=== PATIENT | male | born 1955 | race Caucasian/White ===

== ENCOUNTER 2022-08-27 08:20 | Outpatient (OUT) | payer MEDICARE, MEDICAID, SELFPAY ==
[2022-08-27 08:41] LABS: Hematocrit 33.5 % (42.0-54.0); Hemoglobin 10.5 g/dL (14.0-18.0)
[2022-08-27 08:41] LABS: Bilirubin Urine NEGATIVE (NEGATIVE); Blood Urine NEGATIVE (NEGATIVE); Clarity Urine CLEAR (CLEAR); Color Urine LT. YELLOW (YELLOW); Glucose Urine UA NEGATIVE (NEGATIVE); Ketones Urine NEGATIVE (NEGATIVE); Leukocyte Esterase Urine NEGATIVE (NEGATIVE); Nitrite Urine NEGATIVE (NEGATIVE); Protein Urine NEGATIVE (NEG/TRACE); Specific Gravity Urine <=1.005 (1.005-1.025); Urobilinogen Urine 0.2 EU/dL (0.2-1.0); pH Urine 5.5 (5.0-9.0)
[2022-08-27 10:03] LABS: Creatinine Urine Random 15.81 mg/dL (20.00-300.00); Protein Creatinine Ratio Urine 0.38; Total Protein Urine Random <6.0 mg/dL (<=11.9)
[2022-08-27 10:05] LABS: Alanine Aminotransferase 21 U/L (16-63); Albumin Globulin Ratio 0.9; Albumin Level 3.1 g/dL (3.4-5.0); Alkaline Phosphatase 68 U/L (46-116); Anion Gap 9.8; Aspartate Amino Transferase 10 U/L (15-37); BUN Creatinine Ratio 13.4; Bilirubin Total 0.6 mg/dL (0.2-1.0); Calcium 10.2 mg/dL (8.5-10.1); Carbon Dioxide 27.7 mmol/L (21.0-32.0); Chloride 102 mmol/L (98-107); Estimated GFR (African America >60 (>=60); Estimated GFR (Non-African Ame >60 (>=60); Globulin 3.6 g/dL; Glucose 108 mg/dL (74-106); Magnesium 1.4 mg/dL (1.8-2.4); Phosphorus 2.9 mg/dL (2.6-4.7); Potassium 4.5 mmol/L (3.5-5.1); Sodium 135 mmol/L (136-145); Total Protein 6.7 g/dL (6.4-8.2)
[2022-08-28 11:09] LABS: PTH, Intact 88 pg/mL (15-65)
[2022-08-30 03:06] LABS: Tacrolimus (FK506), Blood 7.6 ng/mL (2.0-20.0)
== END 2022-08-27 08:21 ==
LOC: LAB 08:20
PROVIDERS: PCP Internal Medicine; Visit Provider Internal Medicine Nephrology
DX: Z94.0 Kidney transplant status (principal); N25.81 Secondary hyperparathyroidism of renal origin; I12.9 Hypertensive chronic kidney disease with stage 1 through stage 4 chronic kidney disease, or unspecified chronic kidney disease; E78.5 Hyperlipidemia, unspecified; K43.2 Incisional hernia without obstruction or gangrene; T82.898A Other specified complication of vascular prosthetic devices, implants and grafts, initial encounter; I48.91 Unspecified atrial fibrillation
CPT/HCPCS: 36415; 80053; 80197; 81003; 82306; 82570; 83735; 83970; 84100; 84156; 84550; 85014; 85018

== ENCOUNTER 2022-11-04 13:37 | Outpatient (OUT) | payer MEDICARE, SELFPAY ==
--- NOTE | 2022-11-04 13:54 | CT_ITS ---
[address] [address] Patient Name: JAGRUTI LEONARDO MRN: [id number] date: 1955 Sex: M Assigned Patient Location: CT Current Patient Location: CT Accession/Order Number: [id number] Exam Date: 11/04/2022 14:02 Report Date: 11/04/2022 15:37 At the request of: AISHWARYA LUNDY Procedure: CT chest wo con EXAMINATION: CT chest wo con HISTORY: Abnormal CT R93.89 ; follow-up right middle lobe lung nodule COMPARISON: CT abdomen pelvis 06/15/2022, 07/05/2021, 01/30/2016 TECHNIQUE: Multi-planar CT images were obtained without and/or with IV contrast as indicated by examination type. Axial, Coronal, and Sagittal images. Dose reduction techniques were achieved by using automated exposure control and/or adjustment of mA and/or kV according to patient size and/or use of iterative reconstruction technique. FINDINGS: LUNGS: 17 x 9 x 9 mm nodule within right middle lobe adjacent the diaphragm with adjacent small nodules/opacities. Lungs are otherwise clear. PLEURA: No mass, effusion, or pneumothorax. VASCULATURE: No abnormality. NICOLÁS: No mass or adenopathy. MEDIASTINUM: No mass or adenopathy. CARDIAC: Atherosclerotic coronary artery disease. AORTA: No aneurysm or dissection. CHEST WALL: No mass or axillary adenopathy. BONES: No bone lesion or fracture. LIMITED ABDOMEN: No suspicious findings Limited images of the upper abdomen. OTHER: Negative. CT/CT chest wo con IMPRESSION: 1. Suspicious nodule or scarring within right middle lobe adjacent the diaphragm suspected to be increasing in size, although this area is not well seen on prior CT abdomen/pelvis studies. PET imaging is recommended to evaluate for metabolic activity. Alternatively follow-up CT chest in 3 months could be performed to allow for better comparison and to evaluate for change. Electronically authenticated by: EUFEMIA KNOWLES Date: 11/04/2022 15:37
== END 2022-11-04 13:38 | disposition home or self-care (01) ==
LOC: CT 13:37
PROVIDERS: PCP Internal Medicine; Visit Provider Internal Medicine
DX: R93.89 Abnormal findings on diagnostic imaging of other specified body structures (principal)
CPT/HCPCS: 71250

== ENCOUNTER 2023-03-12 12:06 | Outpatient (OUT) | payer MEDICARE, SELFPAY ==
[2023-03-12 12:15] LABS: Bilirubin Urine NEGATIVE (NEGATIVE); Blood Urine MODERATE (NEGATIVE); Color Urine LT. YELLOW (YELLOW); Glucose Urine UA >=1000 mg/dL (NEGATIVE); Ketones Urine NEGATIVE (NEGATIVE); Leukocyte Esterase Urine SMALL (NEGATIVE); Nitrite Urine NEGATIVE (NEGATIVE); Protein Urine NEGATIVE (NEG/TRACE); Specific Gravity Urine <=1.005 (1.005-1.025); Urobilinogen Urine 0.2 EU/dL (0.2-1.0); pH Urine 6.5 (5.0-9.0)
[2023-03-12 12:18] LABS: Clarity Urine SLIGHTLY CLOUDY (CLEAR); Urine Microscopic Indicated YES
[2023-03-12 12:21] LABS: Bacteria Urine TRACE #/HPF (NONE SEEN); Cast Seen? NONE SEEN #/LPF (NONE SEEN); Crystals Seen? None Seen #/HPF (None Seen); Mucus Urine NONE SEEN (NONE SEEN); RBC Urine 0-2 #/HPF (0-2); Squamous Epithelial Cell Urine NONE SEEN #/LPF (NONE/RARE)
== END 2023-03-12 12:07 | disposition home or self-care (01) ==
LOC: LAB 12:07
PROVIDERS: PCP Internal Medicine; Visit Provider Internal Medicine
DX: R35.0 Frequency of micturition (principal)
CPT/HCPCS: 81001

== ENCOUNTER 2023-04-23 12:45 | Emergency (ER) | payer MEDICARE, SELFPAY ==
[2023-04-23 12:47] VITALS: BP 128/56; PULSE 88; RESP 18; TEMP 36.6; O2SAT 98; BMI 24.2
--- NOTE | 2023-04-23 13:23 | ED_ITS ---
Documented by User: FIDELINA Bustillos 04/23/23 15:09 HPI - General Adult General Chief complaint: Abdominal Pain Stated complaint: MEDICAL CLEARANCE Time Seen by Provider: 04/23/23 13:13 Mode of arrival: ambulance Limitations: no limitations History of Present Illness HPI narrative: Patient is a 67-year-old male With a complex medical history who presents to the emergency department by ambulance for possible malfunction of his gallbladder drain. is at the bedside primary historian. She states that the patient was diagnosed with an infection in his gallbladder in February, he was not suitable for cholecystectomy due to other infections, primarily of the scrotum. He is still being treated with antibiotics. He has a PICC line in the chest. He previously received dialysis, he states he does not currently receive dialysis. The gallbladder drain was placed to mitigate the gallbladder infection until he can have a cholecystectomy. states he was discharged 2 days ago from [facility]. Prior to his discharge, believes that they either change the gallbladder drain bag or change the drain itself, she is not sure which. Neither the patient nor his know which surgeon he saw in [place]. He denies any new focal medical complaints. Apparently on evaluation by home health today, the gallbladder drain was found to be hard to flush with leakage from the site at the abdomen. There is no active leakage.He denies any new fevers, chills, nausea, vomiting, abdominal pain. There has been no redness from the site. Related Data Home Medications Medication Instructions Recorded Confirmed apixaban 5 mg tablet (Eliquis) 5 mg PO BID 04/23/23 04/23/23 atorvastatin 40 mg tablet 40 mg PO QPM 04/23/23 04/23/23 azathioprine 50 mg tablet 50 mg PO DAILY 04/23/23 04/23/23 diltiazem HCl 180 mg 180 mg PO DAILY 04/23/23 04/23/23 capsule,extended release 24 hr, controlled (DILT-XR) empagliflozin 10 mg tablet 10 mg PO QAM 04/23/23 04/23/23 (Jardiance) ertapenem 1 gram solution for 1 g IM 04/23/23 injection flecainide 50 mg tablet 50 mg PO Q8H 04/23/23 04/23/23 fluconazole 200 mg tablet 200 mg PO BID 04/23/23 04/23/23 Allergies Allergy/AdvReac Type Severity Reaction Status Date / Time Penicillins Allergy Intermediate Verified 04/23/23 12:57 Review of Systems ROS Constitutional Denies: fever or chills Ears, nose, mouth, and throat Denies: throat pain Cardiovascular Denies: chest pain Respiratory Denies: shortness of breath Gastrointestinal Denies: nausea or vomiting Genitourinary Denies: painful urination Musculoskeletal Denies: back pain Integumentary/Breast Denies: rash Neurological Denies: headache Endocrine Denies: excessive urination [facility] Social History Smoking status: Never smoker Exam Narrative Exam Narrative: Gen.: Awake, alert, in no distress Head: Normocephalic, atraumatic ENT: Moist mucous membranes Respiratory: No respiratory distress, Port in the right upper chest Gastrointestinal: Abdomen is soft, Obese. Drain noted in the right upper abdomen with fluid draining through the tubing into the bag. No obvious obstruction or leakage Extremities: Moves extremities equally Psych: Normal mood and affect Neuro: No focal neuro deficit Skin: Warm, dry, intact Constitutional Vital Signs, click to edit/add: Last Vital Signs Temp 97.8 F 04/23/23 12:47 Pulse 80 04/23/23 15:03 Resp 18 04/23/23 15:03 BP 125/55 04/23/23 15:03 Pulse Ox 98 04/23/23 15:03 O2 Del Method Room Air 04/23/23 15:03 Course Vital Signs Vital signs: Vital Signs Temperature 97.8 F 04/23/23 12:47 Pulse Rate 88 04/23/23 12:47 Respiratory Rate 18 04/23/23 12:47 Blood Pressure 128/56 04/23/23 12:47 Pulse Oximetry 98 04/23/23 12:47 Oxygen Delivery Method Room Air 04/23/23 12:47 Temperature 97.8 F 04/23/23 12:47 Pulse Rate 80 04/23/23 15:03 Respiratory Rate 18 04/23/23 15:03 Blood Pressure 125/55 04/23/23 15:03 Pulse Oximetry 98 04/23/23 15:03 Oxygen Delivery Method Room Air 04/23/23 15:03 Medical Decision Making MDM Narrative Medical decision making narrative: Patient with stable vital signs in the emergency department, he has no focal medical complaints. I discussed the case with [facility] [place], [place] acute care surgeon on-call, Dr. Crabtree ([id number]), Who does not feel the patient needs to be emergently transferred to [facility] [place], [place]. He recommended that the patient follow-up on Wednesday in the acute care surgery clinic in [place]. At that ti me the patient can be evaluated with IR dye to see if the gallbladder drain has been dislodged or needs to be replaced. He recommended giving the patient dressings To place for any leakage over the weekend. He stated that it is very common for gallbladder drains to have some leakage and this is not worrisome unless the patient has other significant medical complaints or abnormal exam findings. Basic lab studies were obtained showing anemia, we have no old studies to compare to although the patient does not require a transfusion at this time. CMP is stable. Patient and were given education and reassurance by Dr. Collier prior to discharge. They will follow-up with the acute care surgery clinic on Wednesday and return to the ER if symptoms change or worsen. I also spoke with Alona from [facility] to make them aware of the patient's presentation to the ER and discharge instructions to avoid further confusion about the patient's disposition. Home health was made aware that the patient's bag may leak and may be dislodged, there is no indication for return to the emergency department unless the patient's clinical condition changes, I also gave them information about the patient's follow-up instructions and the surgeon that I spoke with at [facility] [place] [place]. She verbalizes understanding. Medical Records Medical records reviewed: Yes I reviewed the patient's medical records Lab Data Lab results reviewed: Yes I reviewed the patient's lab results Labs: Lab Results 04/23/23 Range/Units 12:58 WBC 7.1 (4.0-11.0) 10^3/uL RBC 3.41 L (4.70-6.10) 10^6/uL Hgb 8.9 L (14.0-18.0) g/dL Hct 29.3 L (42.0-54.0) % MCV 85.9 (80.0-94.0) fL MCH 26.1 (25.9-34.0) pg MCHC 30.4 (29.9-35.2) g/dL RDW 24.6 H (11.0-15.0) % Plt Count 271 (150-450) 10^3/uL MPV 9.5 (9.5-13.5) fL Neut % (Auto) 77.9 H (43.0-75.0) % Lymph % (Auto) 16.6 L (20.5-60.0) % Gibson % (Auto) 4.1 (1.7-12.0) % Eos % (Auto) 0.6 L (0.9-7.0) % Baso % (Auto) 0.4 (0.2-2.0) % Neut # (Auto) 5.5 (1.4-6.5) 10^3/uL Lymph # (Auto) 1.2 (1.2-3.8) 10^3/uL Gibson # (Auto) 0.3 (0.3-0.8) 10^3/uL Eos # (Auto) 0.0 (0.0-0.7) 10^3/uL Baso # (Auto) 0.0 (0.0-0.1) 10^3/uL Abs Immat Gran (auto) 0.03 (0.00-0.03) 10^3/uL Imm/Tot Granulo (auto) 0.4 (0.0-0.5) % Sodium 137 (136-145) mmol/L Potassium 4.1 (3.5-5.1) mmol/L Chloride 106 (98-107) mmol/L Carbon Dioxide 22.2 (21.0-32.0) mmol/L Anion Gap 12.9 BUN 11.0 (7.0-18.0) mg/dL Creatinine 0.69 L (0.70-1.30) mg/dL Est GFR ( Amer) >60 (>=60) Est GFR (Non-Af Amer) >60 (>=60) BUN/Creatinine Ratio 15.9 Glucose 112 H (74-106) mg/dL Calcium 10.4 H (8.5-10.1) mg/dL Total Bilirubin 0.4 (0.2-1.0) mg/dL AST 13 L (15-37) U/L ALT 7 L (16-63) U/L Alkaline Phosphatase 70 (46-116) U/L Total Protein 5.7 L (6.4-8.2) g/dL Albumin 1.9 L (3.4-5.0) g/dL Globulin 3.8 g/dL Albumin/Globulin Ratio 0.5 Discharge Plan Discharge Chief Complaint: Abdominal Pain Clinical Impression: Encounter for evaluation of wound Patient Disposition: Home, Self-Care Time of Disposition Decision: 15:00 Condition: Good Prescriptions / Home Meds: No Action Eliquis 5 mg tablet 5 mg PO BID atorvastatin 40 mg tablet 40 mg PO QPM azathioprine 50 mg tablet 50 mg PO DAILY diltiazem HCl [DILT-XR] 180 mg capsule,ext.rel 24h degradable 180 mg PO DAILY Jardiance 10 mg tablet 10 mg PO QAM ertapenem 1 gram recon soln 1 g IM flecainide 50 mg tablet 50 mg PO Q8H fluconazole 200 mg tablet 200 mg PO BID Instructions: Acute Wounds (ED) Additional Instructions: Please contact the acute care surgery clinic at [facility] [place], [place] for an appointment on Wednesday - [phone] Stand Alone Forms: Portal Instructions Referrals: AISHWARYA DELATORRE [Primary Care Provider] - 1 week Discharge Date/Time: 04/23/23 16:24 Documented by User: Tano Collier MD 04/23/23 19:32 HPI - General Adult General Chief complaint: Abdominal Pain Stated complaint: MEDICAL CLEARANCE Time Seen by Provider: 04/23/23 13:13 Related Data Home Medications Medication Instructions Recorded Confirmed apixaban 5 mg tablet (Eliquis) 5 mg PO BID 04/23/23 04/23/23 atorvastatin 40 mg tablet 40 mg PO QPM 04/23/23 04/23/23 azathioprine 50 mg tablet 50 mg PO DAILY 04/23/23 04/23/23 diltiazem HCl 180 mg 180 mg PO DAILY 04/23/23 04/23/23 capsule,extended release 24 hr, controlled (DILT-XR) empagliflozin 10 mg tablet 10 mg PO QAM 04/23/23 04/23/23 (Jardiance) ertapenem 1 gram solution for 1 g IM 04/23/23 injection flecainide 50 mg tablet 50 mg PO Q8H 04/23/23 04/23/23 fluconazole 200 mg tablet 200 mg PO BID 04/23/23 04/23/23 Allergies Allergy/AdvReac Type Severity Reaction Status Date / Time Penicillins Allergy Intermediate Verified 04/23/23 12:57 PFSH PFSH Social History Smoking status: Never smoker Exam Constitutional Vital Signs, click to edit/add: Last Vital Signs Temp 97.8 F 04/23/23 12:47 Pulse 80 04/23/23 15:03 Resp 18 04/23/23 15:03 BP 125/55 04/23/23 15:03 Pulse Ox 98 04/23/23 15:03 O2 Del Method Room Air 04/23/23 15:03 Course Vital Signs Vital signs: Vital Signs Temperature 97.8 F 04/23/23 12:47 Pulse Rate 88 04/23/23 12:47 Respiratory Rate 18 04/23/23 12:47 Blood Pressure 128/56 04/23/23 12:47 Pulse Oximetry 98 04/23/23 12:47 Oxygen Delivery Method Room Air 04/23/23 12:47 Temperature 97.8 F 04/23/23 12:47 Pulse Rate 80 04/23/23 15:03 Respiratory Rate 18 04/23/23 15:03 Blood Pressure 125/55 04/23/23 15:03 Pulse Oximetry 98 04/23/23 15:03 Oxygen Delivery Method Room Air 04/23/23 15:03 Medical Decision Making [facility] Narrative Medical decision making narrative: Patient with stable vital signs in the emergency department, he has no focal medical complaints. I discussed the case with [facility] [place], [place] acute care surgeon on-call, Dr. Crabtree ([id number]), Who does not feel the patient needs to be emergently transferred to [facility] [place] [place]. He recommended that the patient follow-up on Wednesday in the acute care surgery clinic in [place]. At that time the patient can be evaluated with IR dye to see if the gallbladder drain has been dislodged or needs to be replaced. He recommended giving the patient dressings To place for any leakage over the weekend. He stated that it is very common for gallbladder drains to have some leakage and this is not worrisome unless the patient has other significant medical complaints or abnormal exam findings. Basic lab studies were obtained showing anemia, we have no old studies to compare to although the patient does not require a transfusion at this time. CMP is stable. Patient and were given education and reassurance by Dr. Collier prior to discharge. They will follow-up with the acute care surgery clinic on Wednesday and return to the ER if symptoms change or worsen . I also spoke with Alona from [facility] to make them aware of the patient's presentation to the ER and discharge instructions to avoid further confusion about the patient's disposition. Home health was made aware that the patient's bag may leak and may be dislodged, there is no indication for return to the emergency department unless the patient's clinical condition changes, I also gave them information about the patient's follow-up instructions and the surgeon that I spoke with at [facility] [place] [place]. She verbalizes understanding. I, Dr Collier, have reviewed the above progress note and course of action in the ER; agree with the above. I have personally seen and evaluated this patient, gone over history and physical, and discussed disposition and treatment plan with the patient. Multiple phone calls and bedside visits were made by Dr. Collier and Rosa Maria CARTER. Azucena spoke to Dr Delatorre, And he is aware that all we did was called to transfer line, speak to the surgeon, and no recommended testing was done at this time. Critical care time 35 minutes exclusive from separate billable procedures that were performed. The following was considered in the determination of critical care but not limited to the level of medical decision making, intensive cardiac and/or respiratory monitoring, frequent vital sign monitoring, evaluation of laboratory studies, evaluation of radiographic studies, oxygen monitoring, and constant monitoring and speaking to family at bedside Lab Data Labs: Lab Results 04/23/23 Range/Units 12:58 WBC 7.1 (4.0-11.0) 10^3/uL RBC 3.41 L (4.70-6.10) 10^6/uL Hgb 8.9 L (14.0-18.0) g/dL Hct 29.3 L (42.0-54.0) % MCV 85.9 (80.0-94.0) fL MCH 26.1 (25.9-34.0) pg MCHC 30.4 (29.9-35.2) g/dL RDW 24.6 H (11.0-15.0) % Plt Count 271 (150-450) 10^3/uL MPV 9.5 (9.5-13.5) fL Neut % (Auto) 77.9 H (43.0-75.0) % Lymph % (Auto) 16.6 L (20.5-60.0) % Gibson % (Auto) 4.1 (1.7-12.0) % Eos % (Auto) 0.6 L (0.9-7.0) % Baso % (Auto) 0.4 (0.2-2.0) % Neut # (Auto) 5.5 (1.4-6.5) 10^3/uL Lymph # (Auto) 1.2 (1.2-3.8) 10^3/uL Gibson # (Auto) 0.3 (0.3-0.8) 10^3/uL Eos # (Auto) 0.0 (0.0-0.7) 10^3/uL Baso # (Auto) 0.0 (0.0-0.1) 10^3/uL Abs Immat Gran (auto) 0.03 (0.00-0.03) 10^3/uL Imm/Tot Granulo (auto) 0.4 (0.0-0.5) % Sodium 137 (136-145) mmol/L Potassium 4.1 (3.5-5.1) mmol/L Chloride 106 (98-107) mmol/L Carbon Dioxide 22.2 (21.0-32.0) mmol/L Anion Gap 12.9 BUN 11.0 (7.0-18.0) mg/dL Creatinine 0.69 L (0.70-1.30) mg/dL Est GFR ( Amer) >60 (>=60) Est GFR (Non-Af Amer) >60 (>=60) BUN/Creatinine Ratio 15.9 Glucose 112 H (74-106) mg/dL Calcium 10.4 H (8.5-10.1) mg/dL Total Bilirubin 0.4 (0.2-1.0) mg/dL AST 13 L (15-37) U/L ALT 7 L (16-63) U/L Alkaline Phosphatase 70 (46-116) U/L Total Protein 5.7 L (6.4-8.2) g/dL Albumin 1.9 L (3.4-5.0) g/dL Globulin 3.8 g/dL Albumin/Globulin Ratio 0.5 Discharge Plan Discharge Chief Complaint: Abdominal Pain Clinical Impression: Encounter for evaluation of wound Patient Disposition: Home, Self-Care Time of Disposition Decision: 15:00 Condition: Good Prescriptions / Home Meds: No Action Eliquis 5 mg tablet 5 mg PO BID atorvastatin 40 mg tablet 40 mg PO QPM azathioprine 50 mg tablet 50 mg PO DAILY diltiazem HCl [DILT-XR] 180 mg capsule,ext.rel 24h degradable 180 mg PO DAILY Jardiance 10 mg tablet 10 mg PO QAM ertapenem 1 gram recon soln 1 g IM flecainide 50 mg tablet 50 mg PO Q8H fluconazole 200 mg tablet 200 mg PO BID Instructions: Acute Wounds (ED) Additional Instructions: Please contact the acute care surgery clinic at [facility] [place], [place] for an appointment on Wednesday - [phone] Stand Alone Forms: Portal Instructions Referrals: AISHWARYA DELATORRE [Primary Care Provider] - 1 week Discharge Date/Time: 04/23/23 16:24
[2023-04-23 14:26] LABS: Basophils Percent Auto 0.4 % (0.2-2.0); Eosinophils Percent Auto 0.6 % (0.9-7.0); Hematocrit 29.3 % (42.0-54.0); Hemoglobin 8.9 g/dL (14.0-18.0); Immature Granulocytes Pct Auto 0.4 % (0.0-0.5); Lymphocytes Absolute Auto 1.2 10^3/uL (1.2-3.8); Lymphocytes Percent Auto 16.6 % (20.5-60.0); Mean Corpuscular HGB Conc 30.4 g/dL (29.9-35.2); Mean Corpuscular Hemoglobin 26.1 pg (25.9-34.0); Mean Corpuscular Volume 85.9 fL (80.0-94.0); Mean Platelet Volume 9.5 fL (9.5-13.5); Monocytes Absolute Auto 0.3 10^3/uL (0.3-0.8); Monocytes Percent Auto 4.1 % (1.7-12.0); Neutrophils Absolute Auto 5.5 10^3/uL (1.4-6.5); Neutrophils Percent Auto 77.9 % (43.0-75.0); Platelet Count 271 10^3/uL (150-450); Red Blood Count 3.41 10^6/uL (4.70-6.10); Red Cell Distribution Width 24.6 % (11.0-15.0); White Blood Count 7.1 10^3/uL (4.0-11.0)
[2023-04-23 14:36] LABS: Alanine Aminotransferase 7 U/L (16-63); Albumin Globulin Ratio 0.5; Albumin Level 1.9 g/dL (3.4-5.0); Alkaline Phosphatase 70 U/L (46-116); Anion Gap 12.9; Aspartate Amino Transferase 13 U/L (15-37); BUN Creatinine Ratio 15.9; Bilirubin Total 0.4 mg/dL (0.2-1.0); Calcium 10.4 mg/dL (8.5-10.1); Carbon Dioxide 22.2 mmol/L (21.0-32.0); Chloride 106 mmol/L (98-107); Estimated GFR (African America >60 (>=60); Estimated GFR (Non-African Ame >60 (>=60); Globulin 3.8 g/dL; Glucose 112 mg/dL (74-106); Potassium 4.1 mmol/L (3.5-5.1); Sodium 137 mmol/L (136-145); Total Protein 5.7 g/dL (6.4-8.2)
[2023-04-23 14:48] LABS: Immature Granulocytes Abs Auto 0.03 10^3/uL (0.00-0.03)
[2023-04-23 15:03] VITALS: BP 125/55; PULSE 80; RESP 18; O2SAT 98
== END 2023-04-23 16:24 | disposition home or self-care (01) ==
PROVIDERS: Physician Assistant; Emergency Provider Emergency Medicine; PCP Internal Medicine
DX: Z48.03 Encounter for change or removal of drains (principal); E66.9 Obesity, unspecified; Z79.01 Long term (current) use of anticoagulants; Z79.899 Other long term (current) drug therapy; Z68.24 Body mass index [BMI] 24.0-24.9, adult
CPT/HCPCS: 36415; 36591; 80053; 85025; 99283

== ENCOUNTER 2024-01-06 07:22 | Outpatient (OUT) | payer MEDICARE, SELFPAY ==
--- OUTSIDE RECORDS SUMMARY | 2024-01-06 07:32 | XMS_ITS | CCD ---
Author Organization [facility] Care Team Providers Care Stock Counter Name Role Phone Unavailable Unavailable Hitesh Pedroza Unavailable Sofia Mcmullen Unavailable Marilee Lopez Unavailable YOBANI Lundy Primary Care Provider DO Chao Curiel Admit Provider MD Hitesh Pedroza Other Provider MD Alfred Lugo Other Provider CESAR Zelaya Other Provider Unavailable MD Tano Stevenson Other Provider [phone] RHONDA Telles-C Denise Reese Other Provider MD Yoandy Dobbs Other Provider MD Maxwell Resendiz Other Provider MD Stanley Le Attending Provider Alfred Lugo Unavailable DR KAYLEEN CHAMORRO Attending Unavailable ASHTYN, DR BEYER Admitting Unavailable DR AISHWARYA LUNDY Primary Care Unavailable BIGG, DR KNIGHT Attending Unavailable BIGG, DR KNIGHT Admitting Unavailable BIGG, DR KNIGHT Consulting Unavailable DR AISHWARYA LUNDY Primary Care Unavailable HERMES LEHMAN Attending Unavailable HERMES LEHMAN Admitting Unavailable HERNANDEZ SIERRA Consulting Unavailable DR AISHWARYA LUNDY Primary Care Unavailable HERMES LEHMAN Consulting Unavailable MORGAN, DR PAUL Gutierrez Attending Unavailable MORGAN, DR PAUL Gutierrez Admitting Unavailable DR AISHWARYA LUNDY Primary Care Unavailable DR PAUL MORA Consulting Unavailable PAY ., DR RODRÍGUEZ Consulting Unavailable NILL ., DR PICHARDO Consulting Unavailable HOY ., DR NIXON Attending Unavailable HOY ., DR NIXON Admitting Unavailable JAVIER ., DR NIXON Procedure Practitioner Unavail able KAMRON, DR NEFF Primary Care Unavailable HOY ., DR NIXON Consulting Unavailable PAMELA, DAMIEN Consulting Unavailable SUZIE, BRENDAN Consulting Unavailable SISTER, AMY Consulting Unavailable KAMRON, DR NEFF Primary Care Unavailable BAKMARIJAS, AZIZ Attending Unavailable BAKMARIJAS, AZIZ Admitting Unavailable SALIMAS, AZIZ Consulting Unavailable MISC, DR BEYER Attending Unavailable MISC, DR BEYER Admitting Unavailable KAMRON, DR NEFF Primary Care Unavailable MISC, DR BEYER Consulting Unavailable ELASHI, DR KNIGHT Admitting Unavailable ELASHI, DR KNIGHT Consulting Unavailable ELASHI, DR KNIGHT Attending Unavailable KAMRON, DR NEFF Primary Care Unavailable JAYDEN ., DR VALLECILLO Consulting Unavailable KAMRON, DR NEFF Attending Unavailable KAMRON, DR NEFF Admitting Unavailable KAMRON, DR NEFF Consulting Unavailable KAMRON, DR NEFF Primary Care Unavailable SALIMAS, AZIZ Attending Unavailable SALIMAS, AZIZ Admitting Unavailable Hernandez Hankins Attending Unavailable Kamron II, Dr. Aishwarya Montenegro Primary Care Braulio vailable Aishwarya Lundy Unavailable Richard Mays Unavailable YOBANI Lundy Primary Care Provider DO Matthew Marin Emergency Provider Unavailable Primary Care Provider UnavailMatthew Fernandez Admkenyon Unavailable Matthew Marin Attending Unavailable Aishwarya Lundy Primary Care Unavailable Rakan, Aziz Consulting Unavailable Stanley Le Attending Unavailable Chao Curiel Admitting Unavailable Aishwarya Lundy Primary Care Unavailable Alfred Lugo Consulting UnavailEkaterina Diggs Consulting Unavailable Tano Stevenson Consulting Unavailable Denise Telles Consulting Unavailable Yoandy Dobbs Consulting Unavailable Maxwell Resendiz Consulting UnavailAishwarya Marroquin MD Primary Care Provider AISHWARYA LUNDY Primary Care Physician Chao Kilgore Unavailable Aishwarya Lundy MD Primary Care Provider [phone] Olive Arredondo Unavailable Unavailable Aishwarya Lundy MD Primary Care Provider [phone] Hussain HARP, Ava Unavailable Unavailable Hussain RN, Ava Unavailable Aishwarya Mason MD Primary Care Provider JANETTE SINGH Referring Unavailable LUNDY, AISHWARYA B Primary Care Unavailable McGuinn II, Dr. Hernandez Vallecillo Attending Unavailable McGuinn II, Dr. Hernandez Vallecillo Referring Unavailable Lundy II, Dr. Aishwarya Montenegro Primary Care Braulio VON Ibarra Attending Unavailable JIMENEZ JUNIOR Attending Unavailable PETER GALLAGHER Referring Unavailable LUNDY, AISHWARYA B Primary Care Unavailable JANETTE SINGH Referring Unavailable KAMRON, AISHWARYA B Primary Care Unavailable HERNANDEZ HANKINS Attending Unavailable KAMRON, AISHWARYA B Primary Care Unavailable FRANCISCO OLSON Referring Unavailable LUNDY, AISHWARYA B Primary Care Unavailable GERSON BRYAN Attending Unavailable KAMRON AISHWARYA B Primary Care Unavailable HERNANDEZ HANKINS Attending Unavailable KAMRON, AISHWARYA B Primary Care Unavailable PROVIDER, UNKNOWN Admitting Unavailable JULIO BROWN Attending Unavailable TOMAS MATTHEW Referring Unavailable PROVIDER, UNKNOWN Attending Unavailable PROVIDER, UNKNOWN Admitting Unavailable TOMAS, MATTHEW Referring Unavailable PROVIDER, UNKNOWN Attending Unavailable PROVIDER, UNKNOWN Admitting Unavailable PROVIDER, UNKNOWN Attending Unavailable PROVIDER, UNKNOWN Admitting Unavailable PROVIDER, UNKNOWN Attending Unavailable PROVIDER, UNKNOWN Admitting Unavailable JAYDEN, Ruth Ann R Consulting Unavailable Hernandez Freitas Attending Unavailable Wade MILTON Admitting Unavailable MD Ruth Ann GARCIA Consulting Unavailable GARCIA, Ruth Ann R Consulting Unavailable GARCIA, Ruth Ann R Consulting Unavailable GARCIA, Ruth Ann R Consulting Unavailable GARCIA, Ruth Ann R Consulting Unavailable GARCIA, Ruth Ann R Consulting Unavailable GARCIA, Ruth Ann R Consulting Unavailable GARCIA, Ruth Ann R Consulting Unavailable GARCIA, Ruth Ann R Consulting Unavailable GARCIA, Ruth Ann R Consulting Unavailable GARCIA, Ruth Ann R Consulting Unavailable GARCIA, Ruth Ann R Consulting Unavailable GARCIA, Ruth Ann R Consulting Unavailable Gena Gazron Attending Unavailable Won Kruger Attending Unavailable Won Kruger Admitting Unavailable DO Leslie Lee Attending Unavailable KAMRON AISHWARYA B Admitting Unavailable KAMRON AISHWARYA B Attending Unavailable JIMENEZ JUNIOR Attending Unavaila JIMENEZ West Admitting Unavaila MD HITESH Reeves Attending Unavailable MD HITESH PEDROZA Admitting Unavailable KAMRON AISHWARYA B Admitting Unavailable LUNDY, AISHWARYA B Attending Unavailable AISHWARYA LUNDY B Referring Unavailable Ruth Ann GARCIA Attending Unavailable Abdirizak MARTIN Attending Unavailable Kari WALLIS Admitting Unavailable Blank, Chao S Consulting Unavailable Brian Kilgore Chao S Consulting Unavailable Blank, Chao S Consulting Unavailable Blank, Chao S Consulting Unavailable Blank, Chao S Consulting Unavailable Blank, Chao S Consulting Unavailable Blank, Chao S Consulting Unavailable Blank, Chao S Consulting Unavailable Blank, Chao S Consulting Unavailable Blank, Chao S Consulting Unavailable ARSLAN VASQUEZ Admitting Unavailable ARSLAN VASQUEZ Attending Unavailable GIO COATES Referring Unavailable LUNDY, AISHWARYA B Primary Care Unavailable LUNDY, AISHWARYA B Primary Care Unavailable EVAN PRESTON Admitting Unavailable GAGANDEEP MANSFIELD Consulting Unavailable RUTH ANN GRIFFIN Attending Unavailable HERI MILLARD Referring Unavailable LUNDY, AISHWARYA B Primary Care Unavailable ESPINO, VIVIAN Referring Unavailable LUNDY, AISHWARYA B Primary Care Unavailable LUNDY, AISHWARYA B Primary Care Unavailable PETER GALLAGHER Admitting Unavailable PETER GALLAGHER Attending Unavailable JIMENEZ JUNIOR Referring Unavailable LUNDY, AISHWARYA B Primary Care Unavailable LUNDY, AISHWARYA B Primary Care Unavailable ESPINOVIVIAN KENDRICK Attending Unavailable ESPINO, VIVIAN Referring Unavailable LUNDY, AISHWARYA B Primary Care Unavailable LUNDY, AISHWARYA B Primary Care Unavailable KANG GALVAN Admitting Unavailable FRANCISCO OLSON Attending Unavailable Allergies Allergy Classification Reported Allergen(s) Allergy Type Date of Onset Reaction(s) Facility (20 sources) Amoxicillin; Translations: [amoxicillin] Drug Allergy 07-03-19 18 [facility] (20 sources) Cephalexin; Translations: [cephalexin] Drug Allergy 09-11-19 10 hives, Rash, Headache [facility] (20 sources) Meperidine; Translations: [Demerol SOLN] Drug Allergy 09-15-19 12 Dizziness, Unknown [facility] DO Work Phone: (14 sources) Penicillins; Translations: [Penicillins] Allergy to drug (finding) 11-21-19 08 Hives, Unknown Reaction, Unknown Reaction, hives, swelling [facility] (20 sources) Erythromycin; Translations: [ERYTHROMYCIN] Drug Allergy 01-30-20 16 hives, Rash [facility] Other (19 sources) Meperidine; Translations: [Demerol] Drug Allergy 01-30-20 16 stomach upset [facility] (17 sources) Penicillins (Antibiotic) Propensity to adverse reactions hives, swelling [facility] Other (18 sources) topiramate Drug Allergy 07-13-19 24 [facility] (20 sources) Tobramycin; Translations: [tobramycin] Drug Allergy 09-11-19 10 [facility] (6 sources) erythromycin base; Translations: [Erythromycin Base] Allergy to substance 01-30-20 16 Unknown Reaction, Unknown Reaction, [facility] (2 sources) Cephalexin Drug Allergy 01-30-20 16 [facility] (2 sources) Penicillins Drug allergy (disorder) 01-30-20 16 [facility] (8 sources) Meperidine; Translations: [meperidine] Drug Allergy 09-15-19 12 Dizziness, Dizziness, stomach upset [facility] (3 sources) Penicillin G; Translations: [PENICILLIN G] Drug Allergy 09-03-19 23 [facility] (1 source) Amoxicillin Drug Allergy 01-10-20 23 [facility] (1 source) Cephalexin Drug Allergy 01-10-20 23 [facility] (1 source) Penicillins Drug allergy (disorder) 01-10-20 23 [facility] (11 sources) Penicillins Drug Intolerance 11-21-19 08 Hives, Rash [facility] Work Phone: (8 sources) Azithromycin; Translations: [azithromycin] Drug Allergy 02-16-20 Dizziness (finding), Dizziness [facility] (7 sources) Penicillin; Translations: [penicillin] Drug Allergy Unknown Reaction [facility] Medications Current Medications Medication Drug Class(es) Dates Sig (Normalized) Sig (Original) acetaminophen 325 mg oral tablet (10 sources) Start: 06-18-2023 take 650 mg by mouth every four hours 650 mg, oral, Every 4 hours, First dose on Wed06/18/23 at 0745 If ordered PRN for pain, nurse is permitted to administer this medication for higher pain scores based on patient preference? Yes Start: 06-16-2023 End: 06-18-2023 1,000 mg, intravenous, Admin ister over 15 Minutes, Every 8 hours scheduled, First dose (after last modification) on Wed06/16/23 at 2000 Start: 06-16-2023 End: 06-16-2023 1,000 mg, intravenous, Admin ister over 15 Minutes, Every 6 hours scheduled, First dose on Wed06/16/23 at 0830, For 10 doses Start: 06-13-2023 End: 06-16-2023 take 650 mg by mouth every six hours 650 mg, oral, Every 6 hours, First dose on Wed06/13/23 at 1330 If ordered PRN for pain, nurse is permitted to administer this medication for higher pain scores based on patient preference? Yes Start: 04-16-2023 take 650 mg by mouth three times daily for pain 650 mg, oral, 3 times daily, First dose on Wed04/16/23 at 0900 If ordered PRN for pain, nurse is permitted to administer this medication for higher pain scores based on patient preference? Yes Start: 02-25-2023 End: 03-01-2023 take 650 mg by mouth every six hours as needed 650 mg, oral, Every 6 hours PRN, pain moderate (4-6), first line, Starting on Wed03/01/23 at 0845 If ordered PRN for pain, nurse is permitted to administer this medication for higher pain scores based on patient preference? Yes Start: 02-24-2023 End: 02-24-2023 take 975 mg by mouth once for pain 975 mg, oral, Once, On Wed02/24/23 at 2220, For 1 dose If ordered PRN for pain, nurse is permitted to administer this medication for higher pain scores based on patient preference? Yes Start: 01-11-2023 End: 01-13-2023 take 1 tablet by mouth every six hours acetaminophen (Tylenol) tablet 650 mg apixaban 5 mg oral tablet (20 sources) Factor Xa Inhibitor Start: 03-14-2023 End: 03-25-2024 take 1 tablet by mouth twice daily Apixaban (Eliquis) 5 mg tablet Active 5 MG PO Twice daily July 13, 2023 12:00am Start: 03-05-2023 End: 05-04-2023 take 1 tablet by mouth every twelve hours apixaban (Eliquis) 5 MG tablet Take 5 mg by mouth every 12 (twelve) hours 0 03/05/2023 05/04/2023 Active Start: 03-04-2023 End: 03-25-2024 take 1 tablet by mouth every twelve hours 5 mg, oral, Every 12 hours, First dose on 06/20/23 at 1130 Aspir-81 81 MG (17 sources) take 1 tablet by mouth once whitney y take 1 tablet by mouth once whitney y Aspir-81 81 MG 1 tablet Orally Once a day for 90 days Active aspirin 81 mg delayed release oral tablet (20 sources) Platelet Aggregation Inhibitor, Nonsteroidal Anti-inflammatory Drug Start: 07-13-2023 take 1 tablet by mouth once daily Aspirin (Adult Aspirin Regimen) 81 mg tablet,delayed release (DR/EC) Active 81 MG PO Daily July 13, 2023 12:00am Start: 06-17-2023 take 81 mg by mouth once daily 81 mg, oral, Daily, First dose on Rina 06/17/23 at 0900 Start: 06-13-2023 End: 06-18-2023 take 81 mg by mouth once daily in the morning 81 mg, oral, Every morning, First dose on 06/13/23 at 1330 Do not crush, chew, or split. Start: 04-16-2023 take 81 mg by mouth once daily 81 mg, oral, Daily, First dose on Wed04/16/23 at 1045 Start: 03-14-2023 [facility]four hours aspirin 81 mg oral capsule 81 mg = 1 cap(s), Oral, q24hr, Refills(s) 0 Start Date: 03/14/23 Status: Ordered Start: 02-26-2023 End: 04-04-2023 aspirin 81 mg chewable table t Indications: Primary hypertension Chew 1 tablet (81 mg) once daily. 30 tablet 0 03/05/2023 04/04/2023 Active Start: 02-25-2023 End: 02-25-2023 take 325 mg by mouth once for pain 325 mg, oral, Once, On Rina 02/25/23 at 0325, For 1 dose If ordered PRN for pain, nurse is permitted to administer this medication for higher pain scores based on patient preference? Yes Start: 06-25-2022 End: 06-29-2022 take 1 tablet by mouth once daily Aspirin (Aspir-81) 81 mg Tablet,Delayed Release (Dr/Ec) Discontinued 81 MG PO Daily June 25, 2022 12:00am June 29, 2022 1:26pm Start: 07-02-2017 End: 06-25-2022 take 81 mg by mouth once daily Aspirin Discontinued 81 MG PO Daily July 02, 2017 12:00am June 25, 2022 4:06pm atorvastatin 40 mg oral tablet (20 sources) HMG-CoA Reductase Inhibitor Start: 02-26-2023 End: 03-25-2024 take 40 mg by mouth once daily at bedtime Atorvastatin Active 40 MG PO Daily at bedtime July 13, 2023 12:00am azaTHIOprine 50 mg oral tablet (20 sources) Purine Antimetabolite Start: 07-13-2023 End: 07-13-2023 take 50 mg by mouth once daily Azathioprine Active 50 MG PO Daily July 13, 2023 3:07pm Start: 06-18-2023 take 50 mg by mouth once daily 50 mg, oral, Daily, First dose on Wed06/18/23 at 1315 Start: 01-20-2023 End: 06-02-2023 take 1 tablet by mouth once daily azaTHIOprine 50 mg Tab 50 mg = 1 tab(s), Oral, Daily, # 30 tab(s), Refills(s) 0, Pharmacy: [facility] 1984, 175, cm, 01/31/23 14:47:00 EST, Height/Length Dosing, 85.8, kg, 01/31/23 14:47:00 EST, Weight Dosing Start Date: 02/03/23 Status: Ordered benzocaine 15 mg / menthol 3.6 mg oral lozenge (1 source) Standardized Chemical Allergen Start: 03-02-2023 1 lozenge, Mouth/Throat, Every 2 hour PRN, sore throat, Starting on Wed03/02/23 at 0840 benzonatate 100 mg oral capsule (5 sources) Non-narcotic Antitussive Start: 03-18-2023 take 1 capsule by mouth three times daily Tessalon 100 mg Cap 100 mg = 1 cap(s), Oral, TID, # 21 cap(s), Refills(s) 0, Pharmacy: [facility] 1986, 175.3, cm, 03/14/23 15:55:00 EST, Height/Length Dosing, 87.3, kg, 03/15/23 11:53:00 EST, Weight Dosing Start Date: 03/18/23 Status: Ordered Start: 03-02-2023 take 100 mg by mouth three times daily as needed for cough 100 mg, oral, 3 times daily PRN, cough, Starting on Wed03/02/23 at 1037 Do not crush or chew. catheter ([facility] Male External Cath) 1 misc (6 sources) Start: 04-19-2023 catheter ([facility] Male External Cath) 1 misc Indications: Scrotal abscess 1 each once daily. 12 each 3 04/19/2023 Active ciprofloxacin 500 mg oral tablet (1 source) Quinolone Antimicrobial Start: 11-05-2022 take 1 tablet by mouth in the morning ciprofloxacin (Cipro) 500 MG tablet Indications: Diverticulitis Take 1 tablet (500 mg) by mouth in the morning and 1 tablet (500 mg) before bedtime. 28 tablet 0 11/05/2022 Active Diltiazem Hcl (Dilt-Xr) 180 mg capsule,ext.rel 24h degradable (3 sources) Start: 06-25-2022 take 1 capsule by mouth once daily in the morning Diltiazem Hcl (Dilt-Xr) 180 mg capsule,ext.rel 24h degradable Active 180 MG PO Every morning June 25, 2022 12:00am docusate sodium 100 mg oral capsule (3 sources) End: 01-21-2023 Docusate Sodium (DSS) 100 MG capsule Take 100 mg by mouth. 0 Active Drug or medicament (substance) (2 sources) Start: 04-21-2023 End: 06-21-2023 Start: 04-21-2023 empagliflozin 10 mg oral tablet (6 sources) Sodium-Glucose Cotransporter 2 Inhibitor Start: 03-03-2023 End: 03-10-2024 take 1 tablet by mouth in the morning empagliflozin (Jardiance) 10 MG Indications: NSTEMI (non-ST elevated myocardial infarction) (CMS/HCC) Take 1 tablet (10 mg) by mouth in the morning. 30 tablet 11 03/11/2023 03/10/2024 Active ertapenem 1000 mg injection (2 sources) Penem Antibacterial Start: 04-21-2023 ertapenem (INVanz) 1 g injection Start: 02-02-2023 End: 02-15-2023 ertapenem 1 g Inj 1,000 mg = 1 EA, IV Piggyback, Daily, # 10 EA, Refills(s) 0 Start Date: 02/02/23 Stop Date: 02/15/23 Status: Ordered ertapenem 1 g in sodium chloride 0.9% 50 mL IV (6 sources) Start: 04-21-2023 ertapenem 1 g in sodium chloride 0.9% 50 mL IV Indications: Scrotal abscess Infuse 1 g at 100 mL/hr over 30 minutes into a venous catheter once every [address] Junior (infectious disease doctor) to determine if refill needed or not. Do not start before April 21, 2023. 14 each 1 04/21/2023 Active famciclovir 250 mg oral tablet (2 sources) Herpes Simplex Virus Nucleoside Analog DNA Polymerase Inhibitor Start: 07-08-2022 take 1 tablet by mouth every eight hours Famciclovir 250 MG 1 tablet Orally three times a day for 10 days Jun, Active flecainide acetate 100 mg oral tablet (20 sources) Antiarrhythmic Start: 02-02-2023 End: 02-02-2023 flecainide 100 mg Tab 50 mg = 0.5 tab(s), Oral, TID, Refills(s) 0 Start Date: 02/03/23 Status: Ordered Start: 02-01-2023 End: 02-01-2023 flecainide 100 mg Tab 50 mg = 0.5 tab(s), Tab, Oral, Start date 02/01/23 10:00:00 PM EST, 01/31/23 20:52:00 EST Start Date: 02/01/23 Stop Date: 02/01/23 Status: Completed Start: 01-31-2023 End: 01-31-2023 flecainide 100 mg Tab 50 mg = 0.5 tab(s), Tab, Oral, Start date 01/31/23 10:00:00 PM EST, 01/31/23 20:52:00 EST Start Date: 01/31/23 Stop Date: 01/31/23 Status: Completed Start: 08-22-2021 End: 03-06-2023 take 50 mg by mouth every eight hours 50 mg, oral, Every 8 hours scheduled, First dose on Rina 02/25/23 at 0600 Start: 12-21-2020 End: 07-13-2023 take 50 mg by mouth three times daily Flecainide Discontinued 50 MG PO Three times daily June 25, 2022 12:00am July 13, 2023 2:46pm 0900, 1500, 2100 Start: 01-07-2020 End: 12-21-2020 take 50 mg by mouth every twelve hours Flecainide Discontinued 50 MG PO Q12H 60 January 07, 2020 12:00am December 21, 2020 2:14pm fluconazole 200 mg oral tablet (3 sources) Azole Antifungal Start: 04-17-2023 End: 05-02-2023 take 1 tablet by mouth in the morning fluconazole (Diflucan) 200 MG tablet Take 200 mg by mouth in the morning and 200 mg in the evening. 0 04/19/2023 05/02/2023 Active gabapentin 300 mg oral capsule (1 source) Anti-epileptic Agent Start: 01-19-2023 gabapentin (Neurontin) capsule 300 mg gauze bandage (Kerlix) 3.4 X 3.6 -yard bandage (6 sources) Start: 04-19-2023 gauze bandage (Kerlix) 3.4 X 3.6 -yard bandage Indications: Scrotal abscess Apply 1 each topically once daily. 96 each 1 04/19/2023 Active glucagon (rdna) 1 mg injection (5 sources) Antihypoglycemic Agent Start: 06-14-2023 1 mg, intramuscular, Every 15 min PRN, low blood sugar - see comments, For blood glucose less than or equal to 70 mg/dL and no IV access, Starting on Wed06/14/23 at 0320 Give until blood glucose is 100 mg/dL or greater. If patient DOES NOT HAVE secure IV access & patient is unconscious, NPO or is unable to eat or drink. Start: 04-13-2023 1 mg, intramus cular, Every 15 min PRN, low blood sugar - see comments, For blood glucose less than or equal to 70 mg/dL and no IV access, Starting on Wed04/13/23 at 2354 Give until blood glucose is 100 mg/dL or greater. If patient DOES NOT HAVE secure IV access & patient is unconscious, NPO or is unable to eat or drink. Start: 02-25-2023 1 mg, intramus cular, Every 15 min PRN, low blood sugar - see comments, For blood glucose less than or equal to 70 mg/dL and no IV access, Starting on Wed02/25/23 at 1129 Give until blood glucose is 100 mg/dL or greater. If patient DOES NOT HAVE secure IV access & patient is unconscious, NPO or is unable to eat or drink. 50 ml glucose 500 mg/ml prefilled syringe (8 sources) Start: 06-14-2023 12.5 g, intrav enous, Every 15 min PRN, For blood glucose less than or equal to 70 mg/dL, Starting on Wed06/14/23 at 0320 May repeat until blood glucose level reaches 100 mg/dL or greater. Push 2 - 3 mL/minute if patient has secure IV access. Start: 04-13-2023 25 g, intraven ous, Every 15 min PRN, For blood glucose less than or equal to 40 mg/dL, Starting on Wed04/13/23 at 2354 May repeat until blood glucose level reaches 100 mg/dL or greater. Push 2 - 3 mL/minute if patient has secure IV access. Start: 04-13-2023 0.3 g/kg/hr 79 .4 kg (238.2 mL/hr), intravenous, Once as needed, For blood glucose less than 70 mg/dL after 30 minutes of intervention. Discontinue once blood glucose reaches 100 mg/dL., Starting on Wed04/13/23 at 2354, For 1 dose Discontinue once blood glucose reaches 100 mg/dL. Start: 02-25-2023 25 g, intraven ous, Every 15 min PRN, For blood glucose less than or equal to 40 mg/dL, Starting on Wed02/25/23 at 1129 May repeat until blood glucose level reaches 100 mg/dL or greater. Push 2 - 3 mL/minute if patient has secure IV access. Start: 02-25-2023 0.3 g/kg/hr 86 .1 kg (258.3 mL/hr), intravenous, Once as needed, For blood glucose less than 70 mg/dL after 30 minutes of intervention. Discontinue once blood glucose reaches 100 mg/dL., Starting on Rina 02/25/23 at 1129, For 1 dose Discontinue once blood glucose reaches 100 mg/dL. 12 hr guaiFENesin 600 mg extended release oral tablet (4 sources) Start: 03-18-2023 guaiFENesin (M ucinex) 600 MG 12 hr tablet Take 1,200 mg by mouth 0 03/18/2023 Active Start: 03-18-2023 [facility] Mucinex 600 mg Tab-ER 1,200 mg = 2 tab(s), Oral, BID, # 14 tab(s), Refills(s) 0, Pharmacy: [facility] 1984, 175.3, cm, 03/14/23 15:55:00 EST, Height/Length Dosing, 87.3, kg, 03/15/23 11:53:00 EST, Weight Dosing Start Date: 03/18/23 Status: Ordered hydrOXYzine hydrochloride 10 mg oral tablet (10 sources) Antihistamine Start: 04-19-2023 End: 06-21-2023 Start: 04-13-2023 insulin lispro 100 unt/ml injectable solution (4 sources) Insulin Analog Start: 06-19-2023 0-5 Units, sub cutaneous, 3 times daily with meals, First dose (after last modification) on 06/19/23 at 0800 Insulin Lispro Corrective Scale #1 Hypoglycemia protocol Call LIP unit(s) if Blood Glucose is between 0 - 70 mg/dL 0 unit(s) if Blood glucose is between 71-150 1 unit(s) if Blood glucose is between 151-200 2 unit(s) if Blood glucose is between 201-250 3 unit(s) if Blood glucose is between 251-300 4 unit(s) if Blood glucose is between 301-350 5 unit(s) if Blood glucose is between 351-400 Notify provider unit(s) if Blood Glucose is greater than 400 mg/dL Start: 06-14-2023 End: 06-19-2023 0-5 Units, subcutaneous, ry 4 hours, First dose on Wed06/14/23 at 0345 Insulin Lispro Corrective Scale #1 Hypoglycemia protocol Call LIP unit(s) if Blood Glucose is between 0 - 70 mg/dL 0 unit(s) if Blood glucose is between 71-150 1 unit(s) if Blood glucose is between 151-200 2 unit(s) if Blood glucose is between 201-250 3 unit(s) if Blood glucose is between 251-300 4 unit(s) if Blood glucose is between 301-350 5 unit(s) if Blood glucose is between 351-400 Notify provider unit(s) if Blood Glucose is greater than 400 mg/dL Start: 04-16-2023 0-5 Units, sub cutaneous, 3 times daily with meals, First dose (after last modification) on Wed04/16/23 at 1700 Insulin Lispro Corrective Scale #1 Hypoglycemia protocol Call LIP unit(s) if Blood Glucose is between 0 - 70 mg/dL 0 unit(s) if Blood glucose is between 71-150 1 unit(s) if Blood glucose is between 151-200 2 unit(s) if Blood glucose is between 201-250 3 unit(s) if Blood glucose is between 251-300 4 unit(s) if Blood glucose is between 301-350 5 unit(s) if Blood glucose is between 351-400 Notify provider unit(s) if Blood Glucose is greater than 400 mg/dL Start: 02-25-2023 End: 02-27-2023 0-5 Units, subcutaneous, ry 4 hours, First dose on Rina 02/25/23 at 0415 Insulin Lispro Corrective Scale #1 Hypoglycemia protocol Call LIP unit(s) if Blood Glucose is between 0 - 70 mg/dL 0 unit(s) if Blood glucose is between 71-150 1 unit(s) if Blood glucose is between 151-200 2 unit(s) if Blood glucose is between 201-250 3 unit(s) if Blood glucose is between 251-300 4 unit(s) if Blood glucose is between 301-350 5 unit(s) if Blood glucose is between 351-400 Notify provider unit(s) if Blood Glucose is greater than 400 mg/dL lidocaine 0.04 mg/mg medicated patch (4 sources) Antiarrhythmic, Amide Local Anesthetic Start: 06-21-2023 End: 06-21-2023 Start: 06-16-2023 2 patch, trans dermal, Administer over 12 Hours, Daily, First dose on Wed06/16/23 at 0900 Apply to RUQ/R lateral chest. Patch will remain on for 12 hours, then removed for [address] patch directly over any surgical incisions or wounds. Start: 01-14-2023 End: 01-14-2023 lidocaine PF (Xylocaine) 10 mg/mL (1 %) injection 50 mg methocarbamol 500 mg oral ta blet (3 sources) Muscle Relaxant Start: 06-21-2023 End: 06-21-2023 Start: 06-18-2023 take 1000 mg intrave nously every eight hours 1,000 mg, intravenous, Administer over 5 Minutes, Every 8 hours, First dose (after last modification) on Wed06/18/23 at 1230 mycophenolate mofetil 250 mg oral capsule (20 sources) Start: 01-13-2023 mycophenolate (Cellcept) capsule 500 mg Start: 06-25-2022 End: 06-25-2022 Mycophenolate Mofetil (Cellc ept) 250 mg capsule Discontinued MG PO June 25, 2022 12:00am June 25, 2022 4:10pm Start: 11-18-2016 End: 07-13-2023 take 3 capsules by mouth twice daily Mycophenolate Mofetil (Cellcept) 250 mg Capsule Discontinued 750 MG PO Twice daily July 02, 2017 12:00am Toya 30th, 2024 2:46pm take 1 tablet by rishabh th every twelve hours mycophenolate (CellCept) 500 MG tablet Take 500 mg by mouth every 12 (twelve) hours. 1.5 tablets totaling 750mg PO twice a day 0 Active 2 ml ondansetron 2 mg/ml injection (2 sources) Serotonin-3 Receptor Antagonist Start: 06-13-2023 take 4 mg intravenously every eight hours as needed 4 mg, intravenous, Every 8 hours PRN, nausea/vomiting, first line, Starting on Wed06/13/23 at 1324 1st Line. Give IV if patient is unable to take orally. If inadequate response within 60 minutes, proceed to next-line agent for same PRN reason or contact provider if no further options ordered. When administering via IV Push, administer over 3-5 minutes. Start: 02-24-2023 End: 02-24-2023 4 mg, intravenous, Once, On Wed02/24/23 at 2220, For 1 dose When administering via IV Push, administer over 3-5 minutes. oxyCODONE hydrochloride 5 mg oral tablet (20 sources) Opioid Agonist Start: 06-21-2023 Start: 06-18-2023 End: 06-21-2023 Start: 06-18-2023 take 5 mg by mouth e very six hours as needed 5 mg, oral, Every 6 hours PRN, pain moderate (4-6), second line, Starting on Wed06/18/23 at 0720 Start: 06-13-2023 End: 06-16-2023 take 10 mg by mouth every four hours as needed 10 mg, oral, Every 4 hours PRN, pain severe (7-10), first line, Starting on Wed06/13/23 at 1324 Start: 06-13-2023 End: 06-16-2023 take 5 mg by mouth every six hours as needed 5 mg, oral, Every 6 hours PRN, pain moderate (4-6), first line, Starting on Wed06/13/23 at 1322 If ordered PRN for pain, nurse is permitted to administer this medication for higher pain scores based on patient preference? Yes Start: 04-16-2023 End: 04-29-2023 Start: 04-16-2023 take 5 mg by mouth e very four hours as needed 5 mg, oral, Every 4 hours PRN, pain moderate (4-6), first line, Starting on Wed04/16/23 at 0857 If ordered PRN for pain, nurse is permitted to administer this medication for higher pain scores based on patient preference? Yes Start: 03-05-2023 take 1 tablet by rishabh th every six hours as needed for pain oxyCODONE (Roxicodone) 5 MG immediate release tablet Take 5 mg by mouth every 6 (six) hours if needed for severe pain 0 03/05/2023 Active Start: 02-26-2023 take 5 mg by mouth e very four hours as needed 5 mg, oral, Every 4 hours PRN, pain severe (7-10), first line, Starting on 02/26/23 at 1121 If ordered PRN for pain, nurse is permitted to administer this medication for higher pain scores based on patient preference? Yes Start: 02-25-2023 End: 02-26-2023 take 10 mg by mouth every four hours as needed 10 mg, oral, Every 4 hours PRN, pain severe (7-10), first line, Starting on Rina 02/25/23 at 1110 If ordered PRN for pain, nurse is permitted to administer this medication for higher pain scores based on patient preference? Yes Start: 01-21-2023 End: 03-12-2023 Start: 01-20-2023 End: 01-20-2023 take 1 tablet by mouth every six hours for pain oxyCODONE (Roxicodone) 10 mg immediate release tablet Indications: Diverticulitis Take 1 tablet (10 mg) by mouth every 6 hours if needed for severe pain (7 - 10) for up to 10 days. 15 tablet 0 01/20/2023 01/20/2023 Discontinued (Stop Taking at Discharge) Start: 01-13-2023 take 1 tablet by rishabh th every six hours as needed oxyCODONE (Roxicodone) immediate release tablet 10 mg Start: 01-13-2023 End: 01-21-2023 take 1 tablet by mouth every six hours for pain oxyCODONE (Roxicodone) 5 mg immediate release tablet Indications: Diverticulitis Take 1 tablet (5 mg) by mouth every 6 hours if needed for moderate pain (4 - 6). 15 tablet 0 01/20/2023 01/21/2023 Discontinued (Reorder) pantoprazole 40 mg delayed release oral tablet (20 sources) Proton Pump Inhibitor Start: 06-18-2023 take 40 mg by mouth once daily before breakfast 40 mg, oral, Daily before breakfast, First dose on Wed06/18/23 at 0745 Do not crush, chew, or split. Start: 06-17-2023 End: 06-18-2023 40 mg, intravenous, Daily, F irst dose on Wed06/17/23 at 1130 Reconstitute with 10 mL sodium chloride 0.9% for injection. Push over 2 minutes. Reconstitute with 10 mL sodium chloride 0.9% for injection. Push over 2 minutes. Start: 06-16-2023 40 mg, intrave nous, Once, On Wed06/16/23 at 0815, For 1 dose Reconstitute with 10 mL sodium chloride 0.9% for injection. Push over 2 minutes. Reconstitute with 10 mL sodium chloride 0.9% for injection. Push over 2 minutes. Start: 04-14-2023 take 1 tablet by [facility] once daily before breakfast 40 mg, oral, Daily before breakfast, [facility] dose on Wed04/14/23 at 0730 Use pantoprazole tablet if patient can take meds orally. Do not crush, chew, or split. Start: 02-28-2023 take 40 mg by mouth once daily before breakfast 40 mg, oral, Daily before breakfast, [facility] dose on Wed02/28/23 at 0700 Do not crush, chew, or split. Start: 02-25-2023 End: 02-27-2023 40 mg, intravenous, Daily, F irst dose on Wed02/25/23 at 0900 Reconstitute with 10 mL sodium chloride 0.9% for injection. Push over 2 minutes. Reconstitute with 10 mL sodium chloride 0.9% for injection. Push over 2 minutes. Start: 01-09-2023 take 40 mg by mouth twice daily, then take 40 mg by mouth once daily Pantoprazole Active 20 MG PO Twice daily January 09, 2023 12:11pm 40 mg p.o. twice daily x2 weeks, then 40 mg p.o. daily. Please dispense a 3-month supply. Start: 07-20-2022 End: 06-16-2023 take 20 mg by mouth twice daily before mealtime 20 mg, oral, 2 times daily before meals, First dose on Wed06/13/23 at 1600 Do not crush, chew, or split. Start: 06-29-2022 End: 01-09-2023 take 40 mg by mouth twice daily, then take 40 mg by mouth once daily Pantoprazole Discontinued 40 MG PO Twice daily 180 90 June 29, 2022 12:00am January 09, 2023 12:11pm 40 mg p.o. twice daily x2 weeks, then 40 mg p.o. daily. Please dispense a 3-month supply. polyethylene glycol 3350 31374 mg powder for oral solution (20 sources) Osmotic Laxative Start: 02-26-2023 End: 03-03-2023 17 g, oral, Every other day, First dose on Wed02/26/23 at 0900 Start: 01-31-2023 polyethylene g lycol 3350 1 packet(s), Oral, Daily, Refill(s) 0 Start Date: 01/31/23 Status: Ordered Start: 01-19-2023 End: 06-21-2023 17 g, oral, Daily, First dos e on Wed06/13/23 at 1330 Bowel Regimen - for prevention of constipation. polyvinyl alcohol 0.014 ml/m l / povidone 6 mg/ml ophthalmic solution (1 source) Start: 01-11-2023 lubricating ey e drops ophthalmic solution 2 drop predniSONE 5 mg oral tablet (20 sources) Start: 06-25-2022 End: 06-25-2022 Prednisone Discontinued MG TABLET June 25, 2022 12:00am June 25, 2022 4:12pm Start: 07-02-2017 End: 07-13-2023 take 5 mg by mouth once daily Prednisone Active 5 MG P O Daily July 13, 2023 3:08pm rOPINIRole 1 mg oral tablet (20 sources) Nonergot Dopamine Agonist Start: 07-13-2023 take 1 mg by mouth at bedtime Ropinirole Active 1 MG PO Bedtime July 13, 2023 3:08pm Start: 06-13-2013 End: 07-13-2023 take 1 mg by mouth once daily 1 mg, oral, Nightly, Fir st dose on Wed06/13/23 at 2100 sodium bicarbonate 650 mg oral tablet (15 sources) Start: 03-18-2023 take 1 tablet by mouth three times daily sodium bicarbonate 650 mg Tab 650 mg = 1 tab(s), Oral, TID, # 90 tab(s), Refills(s) 0, Pharmacy: [facility] 1984, 175.3, cm, 03/14/23 15:55:00 EST, Height/Length Dosing, 87.3, kg, 03/15/23 11:53:00 EST, Weight Dosing Start Date: 03/18/23 Status: Ordered Start: 01-13-2023 End: 06-13-2023 sodium bicarbonate tablet 65 0 mg Start: 01-13-2023 End: 01-13-2023 sodium bicarbonate 8.4 % (1 mEq/mL) 50 mEq sulfamethoxazole 400 mg / trimethoprim 80 mg oral tablet (20 sources) Dihydrofolate Reductase Inhibitor Antibacterial, Sulfonamide Antimicrobial Start: 07-13-2023 End: 07-13-2023 take 1 tablet by mouth once daily Sulfamethoxazole-Trimethoprim (Bactrim) 400-80 mg tablet Active 1 TAB PO Daily 90 July 13, 2023 3:05pm Start: 01-31-2023 Bactrim 400/80 , Oral, Daily, Refill(s) 0 Start Date: 01/31/23 Status: Ordered Start: 07-02-2017 End: 06-21-2023 take 1 tablet by mouth once daily Sulfamethoxazole-Trimethoprim Discontinued 1 TAB PO Daily June 25, 2022 12:00am January 09, 2023 12:11pm tacrolimus 0.5 mg oral capsule (20 sources) Calcineurin Inhibitor Immunosuppressant Start: 06-17-2023 End: 06-18-2023 take 0.5 mg under the tongue every twenty-four hours 0.5 mg, sublingual, Every 24 hours, First dose (after last modification) on Wed06/17/23 at 1800 Start: 06-16-2023 End: 06-16-2023 take 0.5 mg under the tongue once daily 0.5 mg, sublingual, Daily, First dose (after last modification) on Wed06/16/23 at 1800 Start: 06-13-2023 End: 06-16-2023 take 0.5 mg by mouth twice daily 0.5 mg, oral, 2 times daily, First dose on 06/13/23 at 1330 Start: 01-10-2023 End: 01-13-2023 tacrolimus (Prograf) capsule 1.5 mg Start: 01-09-2023 tacrolimus (AZ OGRAF) 1.5 mg Start: 06-25-2022 End: 07-13-2023 tacrolimus (Prograf) capsule 1 mg Start: 07-23-2021 Start: 06-11-2021 End: 07-13-2023 take 1 capsule by mouth every twelve hours Tacrolimus (Prograf) 0.5 mg capsule Active 0.5 MG PO Q12H 60 July 13, 2023 3:07pm Start: 06-11-2021 End: 01-21-2023 take 1 capsule by mouth twice daily tacrolimus (Prograf) 0.5 mg capsule Indications: Kidney transplant status Take 0.5 mg by mouth 2 times a day. 60 capsule 2 01/20/2023 Active Start: 07-02-2017 End: 06-25-2022 Tacrolimus (Prograf) 1 mg Ca psule Discontinued 2 MG PO Twice daily July 02, 2017 12:00am June 25, 2022 4:08pm Start: 11-18-2016 End: 01-21-2023 take 1 capsule by mouth twice daily Prograf 1 MG capsule Take 1 mg by mouth 2 times a day. Brandname product 0 12/12/2022 Active tiZANidine 2 mg oral tablet (2 sources) Central alpha-2 Adrenergic Agonist Start: 06-21-2023 End: 06-21-2023 triamcinolone acetonide 1 mg/ml topical lotion (2 sources) Corticosteroid Start: 10-05-2022 triamcinolone (Kenalog) 0.1 % lotion Indications: Other seborrheic dermatitis Apply to scalp bid prn 60 mL 11 10/05/2022 Active triamcinolone (K enalog) 0.1 % lotion Apply topically 1 (one) time each day. 0 Active 150 ml vancomycin 5 mg/ml injection (3 sources) Glycopeptide Antibacterial Start: 06-15-2023 take 750 mg intravenously every twelve hours 750 mg, intravenous, at 200 mL/hr, Administer over 45 Minutes, Every 12 hours, First dose (after last modification) on Wed06/15/23 at 2100 premix bag Dosing of this medication varies based on severity of illness. Does this patient have sepsis or concern for sepsis (probable or documented infection plus systemic manifestations of infection)? Yes Suspected Indication (Select all that apply): Abdominal Infection Type of Therapy: Empiric Type of infection: Community-Acquired Start: 02-24-2023 End: 02-25-2023 1,000 mg, intravenous, at 20 0 mL/hr, Administer over 60 Minutes, Once, On Wed02/24/23 at 2340, For 1 dose Total dose = 2000mg premix bag Dosing of this medication varies based on severity of illness. Does this patient have sepsis or concern for sepsis (probable or documented infection plus systemic manifestations of infection)? Yes Suspected Indication (Select all that apply): Other Specify: sepsis Type of Therapy: Empiric (1 source) Start: 02-25-2023 2 mg, intra-ca theter, As needed, line care, Starting on Rina 02/25/23 at 1358 Via PICC Line Removed by: Aspiration Inject into partial/totally occluded catheter lumen for total of 30 to 120 minute dwell time; assess patency at 30 minutes and if not patent, dwell for additional 90 minutes. If still not patent, repeat alteplase 2 mg injected into thrombotic partial or totally occluded lumen for a total of 120 minute dwell time; assess patency at 30 minutes and if not patent, dwell for 90 minutes. If still not patent, notify provider. Dilute each 2 mg vial with 2.2 mL sterile water to give 1 mg/mL final concentration. Swirl gently to mix; do not shake. (3 sources) Start: 04-19-2023 Start: 04-17-2023 End: 04-19-2023 (3 sources) Start: 04-19-2023 Start: 04-17-2023 End: 04-19-2023 Completed/Discontinued Medications Medication Drug Class(es) Dates Sig (Normalized) Sig (Original) Abdominal Binder/Elastic Large - (8 sources) Start: 03-11-2021 Abdominal Binder/Elastic Large - as directed Feb, Not-Taking acetaminophen 325 mg / oxyCODONE hydrochloride 5 mg oral tablet (1 source) Opioid Agonist Start: 04-13-2023 End: 04-13-2023 take 2 tablets by mouth once for pain 2 tablet, oral, Once, On Wed04/13/23 at 1250, For 1 dose If ordered PRN for pain, nurse is permitted to administer this medication for higher pain scores based on patient preference? Yes 500 ml albumin human, long-term 50 mg/ml injection (2 sources) Human Serum Albumin Start: 04-14-2023 End: 04-14-2023 25 g, intravenous, at 500 mL/hr, Administer over 60 Minutes, Once, On Wed04/14/23 at 0430, For 1 dose Start: 04-14-2023 End: 04-14-2023 take 25 g intravenously every six hours 25 g, intravenous, at 100 mL/hr, Administer over 1 Hours, Every 6 hours, First dose on Wed04/14/23 at 0130, For 4 doses [id number] 200 actuat albuterol 0.09 mg/actuat metered dose inhaler (3 sources) beta2-Adrenergic Agonist Start: 01-04-2020 End: 06-25-2022 take 1 puff(s) by inhalation every four to six hours Albuterol Sulfate Discontinued 2 PUFF INHALATION EVERY 4-6 HOURS January 04, 2020 12:00am June 25, 2022 4:06pm Administer with spacer Albuterol Sulfate (2.5 MG/ 3 ML) 2.5 MG/3ML 0.083% Nebulization Solution (17 sources) Albuterol Sulfat e (2.5 MG/ 3 ML) 2.5 MG/3ML 0.083% Nebulization Solution 3ml Inhalation 4 times a day Not-Taking/PRN Albuterol Sulfat e (2.5 MG/ 3 ML) 2.5 MG/3ML 0.083% Nebulization Solution 3ml Inhalation 4 times a day Not-Taking amLODIPine 5 mg oral tablet (3 sources) Dihydropyridine Calcium Channel Aron Start: 01-07-2020 End: 12-20-2020 take 5 mg by mouth once daily Amlodipine Discontinued 5 MG PO Daily January 07, 2020 12:00am December 20, 2020 8:55pm Azithromycin (4 sources) Macrolide Antimicrobial Start: 02-24-2023 End: 02-25-2023 500 mg, intravenous, at 250 mL/hr, Administer over 60 Minutes, Once, On Wed02/24/23 at 2330, For 1 dose Suspected Indication (Select all that apply): Pneumonia Type of Therapy: Empiric Start: 07-02-2017 End: 07-02-2017 take 1 tablet by mouth once daily Azithromycin (Zithromax Z-Erich) 250 mg Tablet Discontinued 250 MG PO Daily July 02, 2017 12:00am July 02, 2017 11:42am calcium chloride 0.001 meq/ml / glucose 50 mg/ml / potassium chloride 0.004 meq/ml / sodium chloride 0.103 meq/ml / sodium lactate 0.028 meq/ml injectable solution (1 source) Start: 06-17-2023 End: 06-18-2023 take 75 mL intravenously every hour 75 mL/hr, intravenous, Continuous, Starting on Wed06/17/23 at 0815 calcium chloride 0.0014 meq/ml / potassium chloride 0.004 meq/ml / sodium chloride 0.103 meq/ml / sodium lactate 0.028 meq/ml injectable solution (18 sources) Start: 06-16-2023 End: 06-17-2023 500 mL, intravenous, at 500 mL/hr, Administer over 1 Hours, Once, On Wed06/17/23 at 1715, For 1 dose Start: 06-14-2023 End: 06-17-2023 take 75 mL intravenously every hour 75 mL/hr, intravenous, Continuous, Starting on Wed06/14/23 at 0230 Start: 06-13-2023 End: 06-14-2023 500 mL, intravenous, at 500 mL/hr, Administer over 1 Hours, Once, On Wed06/14/23 at 0930, For 1 dose Start: 04-14-2023 End: 04-14-2023 500 mL, intravenous, at 1,00 0 mL/hr, Administer over 30 Minutes, Once, On Wed04/14/23 at 2130, For 1 dose Start: 04-14-2023 End: 04-14-2023 take 100 mL intravenously every hour 100 mL/hr, intravenous, Continuous, Starting on Wed04/14/23 at 0015 Start: 02-25-2023 End: 02-28-2023 take 100 mL intravenously every hour 100 mL/hr, intravenous, Continuous, Starting on Wed02/25/23 at 0345 Start: 02-24-2023 End: 02-25-2023 1,000 mL, intravenous, at 1, 000 mL/hr, Administer over 1 Hours, Once, On Rina 02/25/23 at 2200, For 1 dose Start: 01-15-2023 End: 01-18-2023 lactated Ringer's infusion Start: 01-10-2023 End: 01-11-2023 lactated Ringer's infusion 100 ml calcium gluconate 20 mg/ml injection (1 source) Start: 01-13-2023 End: 01-13-2023 calcium gluconate in NS IV 2 g cinacalcet 60 mg oral tablet (3 sources) Calcium-sensing Receptor Agonist Start: 07-02-2017 End: 01-04-2020 Cinacalcet Discontinued 60 MG PO TUFR@2200 July 02, 2017 12:00am January 04, 2020 10:16pm 1 wednesday and 1 wednesday at night 50 ml clindamycin 18 mg/ml injection (5 sources) Lincosamide Antibacterial Start: 04-13-2023 End: 04-15-2023 take 900 mg intravenously every eight hours 900 mg, intravenous, at 50 mL/hr, Administer over 60 Minutes, Every 8 hours, First dose on Wed04/13/23 at 2345 premix bag Dosing of this medication varies based on severity of illness. Does this patient have sepsis or concern for sepsis (probable or documented infection plus systemic manifestations of infection)? Yes Suspected Indication (Select all that apply): Gynecological/Pelv ic Type of Therapy: Empiric Type of infection: Abscess Present Start: 04-13-2023 End: 04-13-2023 900 mg, intravenous, at 50 m L/hr, Administer over 60 Minutes, Once, On Wed04/13/23 at 1250, For 1 dose premix bag Dosing of this medication varies based on severity of illness. Does this patient have sepsis or concern for sepsis (probable or documented infection plus systemic manifestations of infection)? No Suspected Indication (Select all that apply): Cellulitis, Skin and Soft Tissue Type of Therapy: Empiric Start: 06-25-2022 End: 06-29-2022 take 300 mg by mouth four times daily Clindamycin Hcl Discontinued 300 MG PO Four times daily June 25, 2022 12:00am June 29, 2022 1:26pm 12 hr dextromethorphan polistirex 6 mg/ml extended release suspension (1 source) Uncompetitive C-wrswct-F-aspartate Receptor Antagonist, Sigma-1 Agonist Start: 01-17-2023 End: 01-19-2023 dextromethorphan (Delsym) 30 mg/5 mL liquid 30 mg 12 hr dilTIAZem hydrochloride 90 mg extended release oral capsule (20 sources) Calcium Channel Aron Start: 06-13-2023 End: 06-18-2023 take 90 mg by mouth twice daily 90 mg, oral, 2 times daily, First dose on Wed06/13/23 at 1330 Do not crush, chew, or split. Start: 04-14-2023 End: 04-18-2023 take 90 mg by mouth twice daily 90 mg, oral, 2 times daily, First dose on Wed04/14/23 at 1030 Hold for SBP < 110 or HR< 60 Do not crush, chew, or split. Start: 03-26-2023 End: 03-25-2024 take 180 mg by mouth once daily 180 mg, oral, Daily, First dose on Wed06/18/23 at 0900 Do not crush, chew, or split. Start: 03-18-2023 End: 03-18-2023 diltiazem CD 180 mg/24 hours Cap-ER 180 mg = 1 cap(s), Cap-ER, Oral, Start date 03/18/23 9:00:00 AM EST, 03/14/23 21:33:00 EST Start Date: 03/18/23 Stop Date: 03/18/23 Status: Completed Start: 02-25-2023 take 180 mg by mouth once daily 180 mg, oral, Daily, First dose on Wed02/25/23 at 0900 HOLD FOR HR<60, SBP<95 Do not crush, chew, or split. Start: 02-03-2023 End: 02-03-2023 diltiazem CD 180 mg/24 hours Cap-ER 180 mg = 1 cap(s), Cap-ER, Oral, Start date 02/03/23 9:00:00 AM EST, 01/31/23 20:52:00 EST Start Date: 02/03/23 Stop Date: 02/03/23 Status: Completed Start: 05-14-2022 take 1 capsule by [facility] every twenty-four hours in the morning Dilt-XR 180 MG 24 hr capsule Take 180 mg by mouth in the morning. 0 05/14/2022 Active Start: 03-23-2022 Dilt-XR 180 mg /24 hours oral capsule, extended release Refills(s) 0 Start Date: 03/23/22 Status: Ordered Start: 12-21-2020 End: 03-26-2023 take 180 mg by mouth once daily Diltiazem Hcl Discontinued 180 MG PO Daily December 21, 2020 12:00am June 25, 2022 4:07pm future refills per PCP or cardiology diphenhydrAMINE (1 source) Histamine-1 Receptor Antagonist Start: 04-14-2023 End: 04-14-2023 10 mg, intravenous, Once, On Wed04/14/23 at 0000, For 1 dose If giving IV push, max rate of 25 mg/min. 0.4 ml enoxaparin sodium 100 mg/ml prefilled syringe (3 sources) Low Molecular Weight Heparin Start: 06-13-2023 End: 06-20-2023 inject 40 mg by subcutaneous injection every twenty-four hours 40 mg, subcutaneous, Every 24 hours, First dose on 06/13/23 at 2100 Indications: venous thrombosis Start: 02-28-2023 End: 03-03-2023 inject 40 mg by subcutaneous injection every twenty-four hours 40 mg, subcutaneous, Every 24 hours, First dose on 02/28/23 at 1045 Indications: venous thrombosis Start: 01-10-2023 End: 01-15-2023 enoxaparin (Lovenox) syringe 40 mg famotidine 20 mg oral tablet (14 sources) Histamine-2 Receptor Antagonist Start: 07-02-2017 End: 06-29-2022 take 20 mg by mouth twice daily Famotidine Discontinued 20 MG PO Twice daily June 25, 2022 12:00am June 29, 2022 1:26pm 1 ml fentaNYL 0.05 mg/ml injection (3 sources) Opioid Agonist Start: 04-19-2023 End: 04-19-2023 intravenous, Once PRN Procedure, Starting on Wed04/19/23 at 1104, For 1 dose, Intraprocedure Start: 02-25-2023 End: 02-25-2023 intravenous, Once PRN Proced ure, Starting on Rina 02/25/23 at 0519, For 1 dose, Intraprocedure Start: 01-11-2023 End: 01-11-2023 fentaNYL PF (Sublimaze) inje ction 250 ml glucose 50 mg/ml / sodium chloride 9 mg/ml injection (2 sources) Start: 01-11-2023 End: 01-16-2023 D5 % and 0.9 % sodium chloride infusion 1 ml heparin sodium, porcine 5000 unt/ml injection (7 sources) Unfractionated Heparin, Anti-coagulant Start: 04-14-2023 End: 04-16-2023 inject 5000 [IU] by subcutaneous injection every eight hours 5,000 Units, subcutaneous, Every 8 hours scheduled, First dose on Wed04/14/23 at 0715 Start: 03-03-2023 End: 03-03-2023 7,000 Units (rounded from 6, 888 Units = 80 Units/kg 86.1 kg), intravenous, Once, On Wed03/03/23 at 1830, For 1 dose Initial bolus Start: 03-03-2023 End: 03-04-2023 0-4,500 Units/hr (0-45 mL/hr ), intravenous, Continuous, Starting on Wed03/03/23 at 1800, Until Rina 03/04/23 at 1000 High Intensity Heparin Protocol (70-124kg) Init ial Dose: 18 units/kg/hr --> Use heparin calculator for units/hr rate Maximum Initial Dose: 2000 units/hr Recheck Heparin Assay, UFH level 4 hours after any rate change, or per protocol. Titration Table: Heparin Assay, UFH < 0.1: Bolus 6,000 units, INCREASE rate by 300 units/hr. Heparin Assay, UFH 0.1 to 0.2: Bolus 3,000 units. INCREASE rate by 200 units/hr. Heparin Assay, UFH 0.3 to 0.7: (THERAPEUTIC) DO NOT CHANGE Infusion Rate. No Bolus. Heparin Assay, UFH 0.8 to 1: No Bolus. DECREASE rate by 200 unit/hour. Heparin Assay, UFH 1.1 to 1.2: No Bolus. HOLD heparin infusion for 1 hour, then DECREASE rate by 200 units/hour. Heparin Assay, UFH > 1.2: No Bolus. HOLD heparin infusion for 1 hour, then recheck heparin assay. If repeat is > 0.7, continue to HOLD INFUSION. Confirm last draw was performed correctly (pump was paused for a minimum of 2 minutes, sample NOT drawn off line/lumen where medication was infusing) and contact provider for further orders. If repeat is <= 0.7, REDUCE previous infusion rate by 300 units/hour and restart infusion. Recheck Heparin Assay, UFH in 4 hours after dose reduction, resume nomogram Start: 02-26-2023 End: 02-27-2023 0-4,000 Units/hr (0-40 mL/hr ), intravenous, Continuous, Starting on Wed02/26/23 at 1400, Until Wed02/27/23 at 1436 Low Intensity Heparin Protocol (70-124kg) Init ial Dose: 12 units/kg/hr --> Use heparin calculator for units/hr rate Maximum Initial Dose: 1000 units/hr Recheck Heparin Assay, UFH level 4 hours after any rate change, or per protocol. Titration Table: Heparin Assay, UFH < 0.1: INCREASE rate by 300 units/hr. Heparin Assay, UFH 0.1 to 0.2: INCREASE rate by 200 units/hr. Heparin Assay, UFH 0.3 to 0.6: (THERAPEUTIC) DO NOT CHANGE Infusion Rate. Heparin Assay, UFH 0.7 to 1: DECREASE rate by 200 unit/hour. Heparin Assay, UFH 1.1 to 1.2: HOLD heparin infusion for 1 hour, then DECREASE rate by 200 units/hour. Heparin Assay, UFH > 1.2: HOLD heparin infusion for 1 hour, then recheck heparin assay. If repeat is > 0.6, continue to HOLD INFUSION. Confirm last draw was performed correctly (pump was paused for a minimum of 2 minutes, sample NOT drawn off line/lumen where medication was infusing) and contact provider for further orders. If repeat is <= 0.6, REDUCE previous infusion rate by 300 units/hour and restart infusion. Recheck Heparin Assay, UFH in 4 hours after dose reduction, resume nomogram. Start: 02-25-2023 End: 02-26-2023 inject 5000 [IU] by subcutaneous injection every eight hours 5,000 Units, subcutaneous, Every 8 hours scheduled, First dose on Rina 02/25/23 at 0600 Start: 01-15-2023 End: 01-15-2023 inject 5000 [IU] by subcutaneous injection every eight hours heparin (porcine) injection 5,000 Units hydrALAZINE hydrochloride 25 mg oral tablet (20 sources) Arteriolar Vasodilator Start: 03-31-2021 End: 01-09-2023 take 25 mg by mouth twice daily Hydralazine Discontinued 25 MG PO Twice daily June 25, 2022 12:00am January 09, 2023 12:09pm hydrocortisone 100 mg injection (1 source) Corticosteroid Start: 06-16-2023 End: 06-18-2023 20 mg, intravenous, Daily, First dose on Wed06/16/23 at 1645 1 ml HYDROmorphone hydrochloride 1 mg/ml cartridge (6 sources) Opioid Agonist Start: 06-18-2023 End: 06-18-2023 0.4 mg, intravenous, Once, On Wed06/18/23 at 1500, For 1 dose Start: 06-16-2023 End: 04-05-2024 0.2 mg, intravenous, Every 2 hour PRN, pain moderate (4-6), second line, Starting on Wed06/16/23 at 0754 Start: 06-16-2023 End: 06-18-2023 0.4 mg, intravenous, Every 2 hour PRN, pain severe (7-10), first line, Starting on Wed06/16/23 at 0754 Start: 04-13-2023 End: 04-16-2023 0.2 mg, intravenous, Every 3 hours PRN, pain severe (7-10), first line, Starting on Wed04/13/23 at 2338 Start: 02-25-2023 End: 02-25-2023 take 0.2 mg intravenously every four hours as needed 0.2 mg, intravenous, Every 4 hours PRN, pain moderate (4-6), first line, Starting on Rina 02/25/23 at 0555 Start: 01-15-2023 End: 01-15-2023 HYDROmorphone PF (Dilaudid) injection 0.5 mg iohexol (OMNIPAQUE) 350 MG/ML injection (1 source) Start: 01-09-2023 End: 01-09-2023 iohexol (OMNIPAQUE) 350 MG/ML injection levoFLOXacin 500 mg oral tablet (3 sources) Quinolone Antimicrobial Start: 07-03-2017 End: 07-08-2017 take 500 mg by mouth once daily Levofloxacin Discontinued 500 MG PO Daily 5 5 July 03, 2017 12:00am July 08, 2017 12:01am Magnesium (3 sources) Start: 06-25-2022 End: 07-13-2023 take 400 mg by mouth once daily Magnesium Discontinued 400 MG PO Daily June 25, 2022 12:00am July 13, 2023 2:46pm Start: 06-25-2022 take 400 mg by mouth once whitney y Magnesium Active 400 MG PO Daily June 25, 2022 12:00am magnesium oxide 400 mg oral tablet (20 sources) Start: 11-17-2022 End: 06-21-2023 take 400 mg by mouth once 400 mg, oral, Once, On 06/20/23 at 1115, For 1 dose Start: 11-17-2022 take 1 tablet by [facility] twice daily at mealtime magnesium oxide (Mag-Ox) 400 (240 Mg) MG tablet TAKE 1 TABLET BY MOUTH TWICE DAILY WITH FOOD FOR 30 DAYS 0 11/17/2022 Active Start: 11-17-2022 take 800 mg by mouth once whitney y 800 mg, oral, Daily, First dose on Wed03/04/23 at 0915 Start: 09-01-2022 take 1 tablet by mouth once da duncan MAGnesium-Oxide 400 (240 Mg) MG Oral Tablet Take 1 tablet daily Quantity: 0 Refills: 0 Ordered: 01-Sep-2022 DO Start : 01-Sep-2022 Active 50 ml magnesium sulfate 40 mg/ml injection (13 sources) Start: 06-14-2023 End: 06-18-2023 2 g, intravenous, at 25 mL/h r, Administer over 2 Hours, Once, On Wed06/18/23 at 1230, For 1 dose Start: 06-14-2023 End: 06-14-2023 4 g, intravenous, at 25 mL/h r, Administer over 4 Hours, Once, On Wed06/14/23 at 1045, For 1 dose Start: 04-16-2023 End: 04-16-2023 2 g, intravenous, at 25 mL/h r, Administer over 2 Hours, Once, On Wed04/16/23 at 0530, For 1 dose Start: 04-14-2023 End: 04-14-2023 2 g, intravenous, at 25 mL/h r, Administer over 2 Hours, Once, On Wed04/14/23 at 0045, For 1 dose Start: 03-01-2023 End: 03-01-2023 2 g, intravenous, at 50 mL/h r, Administer over 1 Hours, Once, On Wed03/01/23 at 1245, For 1 dose Start: 02-24-2023 End: 02-25-2023 2 g, intravenous, at 50 mL/h r, Administer over 1 Hours, Once, On Wed02/25/23 at 0235, For 1 dose Start: 01-19-2023 End: 01-19-2023 magnesium sulfate IV 4 g Start: 01-17-2023 End: 01-17-2023 magnesium sulfate IV 2 g Start: 01-16-2023 End: 01-16-2023 magnesium sulfate IV 4 g Start: 01-14-2023 End: 01-14-2023 magnesium sulfate IV 4 g Start: 01-12-2023 End: 01-12-2023 magnesium sulfate IV 4 g meropenem (4 sources) Penem Antibacterial Start: 03-01-2023 End: 03-02-2023 take 1 g intravenously every eight hours 1 g, intravenous, at 200 mL/hr, Administer over 30 Minutes, Every 8 hours, First dose (after last reorder) on 03/01/23 at 1430 To finish original order for 6 doses (only received 5 doses prior to order expiring) Mini-Bag Plus/ADD-[place] bag Dosing of this medication varies based on severity of illness. Does this patient have sepsis or concern for sepsis (probable or documented infection plus systemic manifestations of infection)? Yes Suspected Indication (Select all that apply): Abdominal Infection Type of Therapy: Definitive, Based on Culture Type of infection: Community-Acquired Start: 03-01-2023 End: 03-01-2023 1 g, intravenous, at 200 mL/ hr, Administer over 30 Minutes, Once, On Wed03/01/23 at 0630, For 1 dose To finish original order for 6 doses (only received 5 doses prior to order expiring) Mini-Bag Plus/ADD-[place] bag Dosing of this medication varies based on severity of illness. Does this patient have sepsis or concern for sepsis (probable or documented infection plus systemic manifestations of infection)? Yes Suspected Indication (Select all that apply): Abdominal Infection Type of Therapy: Definitive, Based on Culture Type of infection: Community-Acquired Start: 02-27-2023 End: 03-01-2023 take 1 g intravenously every eight hours 1 g, intravenous, at 200 mL/hr, Administer over 30 Minutes, Every 8 hours, First dose on Wed02/27/23 at 1045, For 2 days Mini-Bag Plus/ADD-[place] bag Dosing of this medication varies based on severity of illness. Does this patient have sepsis or concern for sepsis (probable or documented infection plus systemic manifestations of infection)? Yes Suspected Indication (Select all that apply): Abdominal Infection Type of Therapy: Definitive, Based on Culture Type of infection: Community-Acquired Start: 01-09-2023 meropenem (LA REM)1 g in 50 mL IVPB duplex 100 ml metroNIDAZOLE 5 mg/ml injection (2 sources) Nitroimidazole Antimicrobial Start: 06-13-2023 End: 06-14-2023 take 500 mg intravenously every eight hours 500 mg, intravenous, Administer over 60 Minutes, Every 8 hours, First dose on 06/13/23 at 1325 Do NOT give with alcohol or drug products with significant alcohol content. Suspected Indication (Select all that apply): Abdominal Infection Type of Therapy: Empiric Type of infection: Community-Acquired Start: 02-25-2023 End: 02-27-2023 take 500 mg intravenously every eight hours 500 mg, intravenous, Administer over 60 Minutes, Every 8 hours, First dose on Rina 02/25/23 at 1115, For 12 doses Do NOT give with alcohol or drug products with significant alcohol content. Suspected Indication (Select all that apply): Abdominal Infection Type of Therapy: Empiric Type of infection: Community-Acquired 5 ml midazolam 1 mg/ml injection (2 sources) Benzodiazepine Start: 04-19-2023 End: 04-19-2023 intravenous, Once PRN Procedure, Starting on 04/19/23 at 1104, For 1 dose, Intraprocedure Start: 01-11-2023 End: 01-11-2023 midazolam (Versed) injection piperacillin 3000 mg / tazobactam 375 mg injection (1 source) Penicillin-class Antibacterial, beta Lactamase Inhibitor Start: 01-10-2023 End: 01-15-2023 take 3.375 g intravenously every six hours omdhconvzxsv-isudrkkcrx-qyvjvkho (Zosyn) IV 3.375 g potassium phosphate 155 mg / sodium phosphate, dibasic 852 mg / sodium phosphate, monobasic 130 mg oral tablet (10 sources) Start: 01-17-2023 End: 01-17-2023 sod phos di, mono-K phos mon o (K Phos Neutral) tablet 250 mg take 1 tablet by mouth every six hours pregabalin 50 mg oral capsule (3 sources) Start: 07-02-2017 End: 01-04-2020 take 1 capsule by mouth once daily Pregabalin (Lyrica) 50 mg Capsule Discontinued 50 MG PO Daily July 02, 2017 12:00am January 04, 2020 10:13pm 1000 ml sodium chloride 9 mg/ml injection (17 sources) Start: 04-15-2023 End: 04-15-2023 500 mL, intravenous, at 250 mL/hr, Administer over 2 Hours, Once, On Wed04/15/23 at 1345, For 1 dose Start: 03-18-2023 take 1 tablet by rishabh th in the morning, then take 1 tablet by mouth in the evening, then take 1 tablet by mouth at bedtime sodium chloride 1 g tablet Take 1 g by mouth in the morning and 1 g in the evening and 1 g before bedtime. 0 03/18/2023 Active Start: 03-18-2023 End: 06-13-2023 take 1 tablet by mouth three times daily sodium chloride 1 g Tab 1 gm = 1 tab(s), Oral, TID, # 90 tab(s), Refills(s) 0, Pharmacy: [facility] 1984, 175.3, cm, 03/14/23 15:55:00 EST, Height/Length Dosing, 87.3, kg, 03/15/23 11:53:00 EST, Weight Dosing Start Date: 03/18/23 Status: Ordered Start: 03-02-2023 take 1 spray(s) nasa l route four times daily as needed for congestion 1 spray, Each Nostril, 4 times daily PRN, congestion, Starting on Wed03/02/23 at 0840 Start: 02-25-2023 take 10 mL intralumi nal route every twelve hours 10 mL, intra-catheter, Every 12 hours, First dose on Wed02/25/23 at 1415 If port not in use (each lumen) using push-pause method. PRN per flush policy. Start: 02-25-2023 10 mL, intra-c atheter, As needed, line care, After each use (each lumen) using push-pause method., Starting on Wed02/25/23 at 1400 Flush port according to flush policy: to maintain line patency. sodium phosphate 21 mmol in sodium chloride 0.9% 250 mL IV (2 sources) Start: 01-18-2023 End: 01-18-2023 sodium phosphate 21 mmol in sodium chloride 0.9% 250 mL IV Start: 01-13-2023 End: 01-13-2023 sodium phosphate 21 mmol in sodium chloride 0.9% 250 mL IV Stool Softner (2 sources) Start: 01-09-2023 End: 07-13-2023 take 5 mg by mouth three times daily Stool Softner Discontinued 5 MG PO Three times daily January 09, 2023 12:00am July 13, 2023 2:45pm Start: 01-09-2023 take 5 mg by mouth t hree times daily Stool Softner Active 5 MG PO Three times daily January 09, 2023 12:00am surgical lubricant gel - Omnicell Override Pull (1 source) Start: 01-16-2023 End: 01-16-2023 surgical lubricant gel - Omnicell Override Pull tamsulosin hydrochloride 0.4 mg oral capsule (18 sources) alpha-Adrenergic Aron Start: 06-13-2023 0.4 mg, oral, 2 time s daily, First dose on 06/13/23 at 1330 Give 30 minutes after the same mealtime each day. Capsules should be swallowed whole; do not crush, chew, or open. Start: 04-22-2023 End: 04-16-2024 take 1 capsule by mouth twice daily Tamsulosin (Flomax) 0.4 mg capsule Discontinued 0.4 MG PO Twice daily July 13, 2023 12:00am July 13, 2023 3:08pm Start: 03-18-2023 End: 03-18-2023 take 1 capsule by mouth twice daily Flomax 0.4 mg Cap 0.4 mg = 1 cap(s), Oral, BID, # 60 cap(s), Refills(s) 0, Pharmacy: [facility] 1984, 175.3, cm, 03/14/23 15:55:00 EST, Height/Length Dosing, 87.3, kg, 03/15/23 11:53:00 EST, Weight Dosing Start Date: 03/18/23 Status: Ordered Start: 03-11-2023 End: 03-10-2024 take 1 capsule by mouth every twenty-four hours in the morning tamsulosin (Flomax) 0.4 MG 24 hr capsule Indications: Benign prostatic hyperplasia, unspecified whether lower urinary tract symptoms present Take 1 capsule (0.4 mg) by mouth in the morning. 30 capsule 11 03/11/2023 03/10/2024 Active Start: 03-04-2023 End: 03-27-2024 take 1 capsule by mouth twice daily Flomax 0.4 mg Cap 0.4 mg = 1 cap(s), Oral, BID, # 60 cap(s), Refills(s) 0, Pharmacy: [facility] 1984, 175.3, cm, 03/14/23 15:55:00 EST, Height/Length Dosing, 87.3, kg, 03/15/23 11:53:00 EST, Weight Dosing Start Date: 03/18/23 Status: Ordered Start: 02-26-2023 End: 04-04-2023 take 1 capsule by mouth once daily tamsulosin (Flomax) 0.4 mg 24 hr capsule Indications: Urinary obstruction Take 1 capsule (0.4 mg) by mouth once daily. 30 capsule 0 03/05/2023 04/04/2023 Active (1 source) Start: 02-26-2023 End: 02-26-2023 Starting on Wed02/26/23 at 1629, For 1 dose Created by cabinet override (3 sources) Start: 04-15-2023 End: 04-15-2023 50 mL, injection, Once in im aging, Starting on Wed04/15/23 at 1535, For 1 dose Start: 02-25-2023 End: 02-25-2023 75 mL, intravenous, Once in imaging, Starting on Wed02/25/23 at 0522, For 1 dose Start: 02-25-2023 End: 02-25-2023 75 mL, intravenous, Once in imaging, Starting on Wed02/25/23 at 0108, For 1 dose (3 sources) Start: 06-14-2023 End: 06-15-2023 take 1.33-132.56 mL intravenously every hour 0.01-1 mcg/kg/min 70.7 kg [place] weight (1.3256-132.5625 mL/hr, rounded to 1.33-132.56 mL/hr), intravenous, Continuous, Starting on Wed06/14/23 at 1300 Titration Goal: Use Adult Parameters Target Parameter: MAP 60 to 70 Initial dose: 0.01 mcg/kg/min Bidirectional Titration Dose: 0.01 mcg/kg/min Titration Frequency: Every 1 minute Start: 06-14-2023 End: 06-14-2023 Starting on Wed06/14/23 at 10 39, For 1 dose Created by cabinet override Start: 02-25-2023 End: 02-26-2023 take 1.61-80.72 mL intravenously every hour 0.01-0.5 mcg/kg/min 86.1 kg (1.6144-80.7188 mL/hr, rounded to 1.61-80.72 mL/hr), intravenous, Continuous, Starting on Rina 02/25/23 at 2200 Titration Goal: Use Adult Parameters Target Parameter: MAP greater than 65 Initial dose: 0.01 mcg/kg/min Bidirectional Titration Dose: 0.01 mcg/kg/min Titration Frequency: Every 1 minute (1 source) Start: 02-25-2023 End: 02-27-2023 take 2 g intravenously every eight hours 2 g, intravenous, Administer over 30 Minutes, Every 8 hours, First dose on Rina 02/25/23 at 1115, For 12 doses Mini-Bag Plus/ADD-[place] bag Dosing of this medication varies based on severity of illness. Does this patient have sepsis or concern for sepsis (probable or documented infection plus systemic manifestations of infection)? Yes Suspected Indication (Select all that apply): Abdominal Infection Type of Therapy: Empiric Type of infection: Community-Acquired (11 sources) Start: 06-18-2023 End: 06-18-2023 15 mmol, intravenous, at 63.8 mL/hr, Administer over 4 Hours, Once, On Wed06/18/23 at 1400, For 1 dose Each 3 mmol contains 4.4 mEq potassium. Start: 06-16-2023 End: 06-16-2023 15 mmol, intravenous, at 62. 5 mL/hr, Administer over 4 Hours, Once, On Wed06/16/23 at 0415, For 1 dose Start: 06-15-2023 End: 06-15-2023 15 mmol, intravenous, at 62. 5 mL/hr, Administer over 4 Hours, Once, On Wed06/15/23 at 0145, For 1 dose Start: 06-13-2023 End: 06-16-2023 take 1 g intravenously every eight hours 1 g, intravenous, Administer over 30 Minutes, Every 8 hours, First dose on Wed06/13/23 at 2240 Dosing of this medication varies based on severity of illness. Does this patient have sepsis or concern for sepsis (probable or documented infection plus systemic manifestations of infection)? Yes Suspected Indication (Select all that apply): Abdominal Infection Type of Therapy: Empiric Type of infection: Community-Acquired Start: 04-18-2023 1 g, intraveno us, at 100 mL/hr, Administer over 30 Minutes, Every 24 hours, First dose on Wed04/18/23 at 0700 Suspected Indication (Select all that apply): Cellulitis, Skin and Soft Tissue Start: 04-17-2023 End: 04-17-2023 21 mmol, intravenous, at 41. 7 mL/hr, Administer over 6 Hours, Once, On Wed04/17/23 at 0415, For 1 dose Start: 04-16-2023 End: 04-17-2023 100 mg, intravenous, at 105 mL/hr, Administer over 1 Hours, Every 24 hours, First dose on Wed04/16/23 at 1415 Flush line with NS prior to administration. Coverage: Slime, Non-albicans Infection Site: Other Specify: scrotal Start: 04-16-2023 End: 04-16-2023 21 mmol, intravenous, at 41. 7 mL/hr, Administer over 6 Hours, Once, On Wed04/16/23 at 0530, For 1 dose Start: 04-15-2023 End: 04-17-2023 650 mg (rounded from 633.6 m g = 8 mg/kg 79.2 kg), intravenous, at 126 mL/hr, Administer over 30 Minutes, Every 24 hours scheduled, First dose on Wed04/15/23 at 0900, For 365 days Suspected Indication (Select all that apply): Cellulitis, Skin and Soft Tissue Start: 04-14-2023 End: 04-14-2023 400 mg (rounded from 397 mg = 5 mg/kg 79.4 kg), intravenous, at 116 mL/hr, Administer over 30 Minutes, Every 24 hours scheduled, First dose on Wed04/14/23 at 0900, For 1 day Suspected Indication (Select all that apply): Gynecological/Pelvic Type of Therapy: Empiric Type of infection: Abscess Present Start: 04-13-2023 End: 04-17-2023 take 1 g intravenously every eight hours 1 g, intravenous, at 200 mL/hr, Administer over 30 Minutes, Every 8 hours, First dose on Wed04/13/23 at 2345 Mini-Bag Plus/ADD-[place] bag Dosing of this medication varies based on severity of illness. Does this patient have sepsis or concern for sepsis (probable or documented infection plus systemic manifestations of infection)? Yes Suspected Indication (Select all that apply): Cellulitis, Skin and Soft Tissue (2 sources) Start: 06-14-2023 End: 06-15-2023 take 1250 mg intravenously every twelve hours 1,250 mg, intravenous, at 200 mL/hr, Administer over 75 Minutes, Every 12 hours, First dose on Wed06/14/23 at 1130 Mini-Bag Plus/ADD-[place] bag Dosing of this medication varies based on severity of illness. Does this patient have sepsis or concern for sepsis (probable or documented infection plus systemic manifestations of infection)? Yes Suspected Indication (Select all that apply): Abdominal Infection Type of Therapy: Empiric Type of infection: Community-Acquired Start: 06-14-2023 miscellaneous, Daily PRN, other, Vancomycin Placeholder, Starting on Wed06/14/23 at 0957 This is a placeholder. Pharmacy will enter orders when vancomycin needs to be administered. (1 source) Start: 06-16-2023 End: 06-20-2023 take 3 g intravenously every six hours 3 g, intravenous, at 200 mL/hr, Administer over 30 Minutes, Every 6 hours, First dose on Wed06/16/23 at 1100, For 4 days Mini-Bag Plus/ADD-[place] bag Suspected Indication (Select all that apply): Other Specify: bacteremia Type of Therapy: Definitive, Based on Culture (2 sources) Start: 06-14-2023 End: 06-16-2023 0.03 Units/min (9 mL/hr), intravenous, Continuous, Starting on Wed06/14/23 at 1530 Titration Goal: Do Not Titrate Start: 06-14-2023 End: 06-14-2023 Starting on Wed06/14/23 at 15 09, For 1 dose Created by cabinet override Problems Active Problems Problem Classification Problem Date Documented Date Episodic/Chronic Abdominal hernia (4 sources) Incisional hernia without obstruction or gangrene; Translations: [Hiatal hernia] Onset: 2 Resolved: 4 Episodic Acute and unspecified renal failure (6 sources) Renal failure syndrome 12-02-2018 Chronic Acute and unspecified renal failure (1 source) Acute kidney failure, unspecified; Translations: [ACUTE KIDNEY FAILURE UNSPECIFIED] Onset: 3 Episodic Acute myocardial infarction (14 sources) Myocardial infarction; Translations: [Non-ST elevation (NSTEMI) myocardial infarction] Onset: 3 02-25-2023 Chronic Acute posthemorrhagic anemia (5 sources) Acute posthemorrhagic anemia; Translations: [Acute posthemorrhagic anemia] Onset: 3 06-26-2022 Episodic Allergic reactions (3 sources) Allergy status to narcotic agent status; Translations: [Allergy status to other antibiotic agents status] Onset: 3 Episodic Anxiety disorders (7 sources) Obsessive-compulsive disorder; Translations: [Obsessive-compulsive disorder, unspecified] Onset: 3 12-02-2018 Chronic Asthma (2 sources) Asthmatic bronchitis; Translations: [Unspecified asthma, uncomplicated] Onset: 0 09-02-2022 Chronic Cancer of colon (14 sources) History of malignant neoplasm of colon; Translations: [Personal history of other malignant neoplasm of large intestine] Episodic Cardiac dysrhythmias (20 sources) Atrial flutter; Translations: [Atrial flutter] Onset: 2 Resolved: 2 Chronic Cardiac dysrhythmias (8 sources) Palpitations; Translations: [Palpitations] Episodic Chronic kidney disease (20 sources) End-stage renal disease; Translations: [End stage renal disease] Onset: 0 Resolved: 2 Chronic Complication of device; implant or graft (20 sources) Arteriovenous fistula aneurysm; Translations: [Other specified complication of vascular prosthetic devices, implants and grafts, initial encounter] Onset: 2 Resolved: 2 Chronic Congestive heart failure; nonhypertensive (7 sources) Chronic heart failure; Translations: [Heart failure, unspecified] Onset: 4 06-14-2023 Chronic Coronary atherosclerosis and other heart disease (13 sources) Coronary arteriosclerosis; Translations: [Atherosclerotic heart disease of [place] coronary artery without angina pectoris] Onset: 4 03-26-2023 Chronic Deficiency and other anemia (1 source) Iron deficiency anemia secondary to blood loss (chronic); Translations: [IRON DEFIC ANEMIA SEC BLD LOSS CHRN] Onset: 3 Chronic Deficiency and other anemia (3 sources) Anemia, unspecified; Translations: [Anemia, unspecified] Onset: 3 Episodic Deficiency and other anemia (1 source) Anemia; Translations: [Anemia, unspecified] 07-09-2023 Episodic Disorders of lipid metabolism (20 sources) Mixed hyperlipidemia; Translations: [Hyperlipidemia, mixed] Onset: 0 Resolved: 2 Chronic Diverticulosis and diverticulitis (20 sources) Diverticulitis of gastrointestinal tract; Translations: [Diverticulosis of large intestine without perforation or abscess with bleeding] Onset: 3 07-02-2017 Chronic Esophageal disorders (7 sources) Gastroesophageal reflux disease; Translations: [Gastroesophageal reflux disease without esophagitis] Onset: 3 12-02-2018 Chronic Essential hypertension (20 sources) Benign essential hypertension; Translations: [Benign essential hypertension] Onset: 0 12-20-2020 Chronic Fluid and electrolyte disorders (20 sources) Acidosis; Translations: [Acidosis] Onset: 3 12-20-2020 Episodic Gastritis and duodenitis (6 sources) Gastritis; Translations: [Gastritis, unspecified, without bleeding] Episodic Gastrointestinal hemorrhage (20 sources) Gastrointestinal hemorrhage; Translations: [Gastrointestinal hemorrhage, unspecified] Onset: 3 06-27-2022 Episodic Glaucoma (1 source) Preglaucoma, unspecified, bilateral; Translations: [Preglaucoma, unspecified] Onset: 3 09-02-2022 Chronic Gout and other crystal arthropathies (7 sources) Gout; Translations: [Gout, unspecified] Onset: 0 12-02-2018 Chronic Heart valve disorders (20 sources) Aortic valve stenosis; Translations: [Aortic valve disorders] Onset: 3 12-20-2020 Chronic Hyperplasia of prostate (16 sources) Benign prostatic hypertrophy with outflow obstruction; Translations: [Benign prostatic hyperplasia with lower urinary tract symptoms] Onset: 3 Chronic Hypertension with complications and secondary hypertension (20 sources) Malignant hypertensive chronic kidney disease; Translations: [Hypertensive chronic kidney disease with stage 1 through stage 4 chronic kidney disease, or unspecified chronic kidney disease] Onset: 2 Resolved: 2 Chronic Immunity disorders (1 source) Immunosuppression; Translations: [Immunodeficiency, unspecified] 01-17-2023 Chronic Malaise and fatigue (1 source) Chronic fatigue syndrome; Translations: [Chronic fatigue syndrome] Onset: 3 09-02-2022 Chronic Nausea and vomiting (1 source) Nausea and vomiting; Translations: [Nausea with vomiting, unspecified] Onset: 4 Episodic Open wounds of head; neck; and trunk (1 source) Open wound of buttock; Translations: [Unspecified open wound of unspecified buttock, initial encounter] Onset: 3 Episodic Other aftercare (2 sources) Encounter for aftercare following kidney transplant; Translations: [Encounter for aftercare following kidney transplant ([facility])] Onset: 3 Chronic Other aftercare (14 sources) Drug therapy finding; Translations: [[facility] (current) use of systemic steroids] Episodic Other aftercare (1 source) 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; Translations: [INSOLE FILLER CURRENT USE OF ASPIRIN] Onset: 3 Episodic Other aftercare (1 source) Other [facility] (current[facility] drug therapy; Translations: [OTH INSOLE FILLER CURRENT DRUG THERAPY] Onset: 3 Episodic Other aftercare (1 source) 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; Translations: [USP USE OF SYSTEMIC STEROIDS] Onset: 3 Episodic Other aftercare (1 source) Long-term current use of drug therapy; Translations: [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] Onset: 3 Episodic Other circulatory disease (3 sources) Arteriovenous fistula; Translations: [Arteriovenous fistula, acquired] 06-26-2022 Chronic Other circulatory disease (2 sources) Arteriovenous fistula, acquired; Translations: [Arteriovenous fistula, acquired] Onset: 3 06-29-2022 Chronic Other diseases of kidney and ureters (20 sources) Hyperparathyroidism due to renal insufficiency; Translations: [Secondary hyperparathyroidism of renal origin] 12-20-2020 Chronic Other diseases of kidney and ureters (6 sources) Secondary hyperparathyroidism of renal origin; Translations: [Secondary hyperparathyroidism (of renal origin)] Onset: 2 Resolved: 2 Chronic Other diseases of kidney and ureters (3 sources) Secondary hyperparathyroidism; Translations: [Secondary hyperparathyroidism of renal origin] 07-02-2017 Chronic Other diseases of kidney and ureters (1 source) Urinary tract obstruction; Translations: [Other obstructive and reflux uropathy] Onset: 3 Episodic Other gastrointestinal disorders (1 source) Colostomy present; Translations: [Colostomy status] Onset: 3 Chronic Other gastrointestinal disorders (1 source) Finding of stoma device; Translations: [Encounter for attention to other artificial openings of digestive tract] Onset: 3 Chronic Other gastrointestinal disorders (2 sources) Viscus structure finding; Translations: [Other specified symptoms and signs involving the digestive system and abdomen] 01-09-2023 Episodic Other gastrointestinal disorders (6 sources) H/O: abdominal hernia 12-02-2018 Episodic Other hematologic conditions (1 source) Raised cardiac enzyme or marker; Translations: [Other specified abnormalities of plasma proteins] 01-05-2020 Episodic Other hereditary and degenerative nervous system conditions (20 sources) Restless legs; Translations: [Restless Leg Syndrome] Chronic Other hereditary and degenerative nervous system conditions (2 sources) Restless legs syndrome Onset: 2 Resolved: 2 Chronic Other lower respiratory disease (8 sources) Dyspnea on exertion; Translations: [Shortness of breath] Episodic Other lower respiratory disease (1 source) Dyspnea, unspecified; Translations: [DYSPNEA UNSPECIFIED] Onset: 3 Episodic Other lower respiratory disease (3 sources) Nodule of lung; Translations: [Solitary pulmonary nodule] Episodic Other lower respiratory disease (1 source) Solitary pulmonary nodule Episodic Other lower respiratory disease (6 sources) H/O: bronchitis 12-02-2018 Episodic Other lower respiratory disease (1 source) Abnormal findings on diagnostic imaging of lung; Translations: [Other nonspecific abnormal finding of lung field] Episodic Other lower respiratory disease (1 source) Dyspnea; Translations: [Shortness of breath] Onset: 4 Episodic Other male genital disorders (6 sources) Impotence 12-05-2018 Chronic Other male genital disorders (8 sources) Disorder of male genital organ; Translations: [Hydrocele, unspecified] Onset: 4 Resolved: 4 04-28-2023 Episodic Other nervous system disorders (14 sources) Mononeuritis; 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, lower extremity] Chronic Other nervous system disorders (14 sources) Mononeuropathy of lower limb; Translations: [Unspecified mononeuropathy of unspecified lower limb] Chronic Other nervous system disorders (1 source) Postoperative pain ; Translations: [Other acute postprocedural pain] 06-19-2023 Episodic Other nutritional; endocrine; and metabolic disorders (4 sources) Obese class I; Translations: [Obesity, unspecified] Chronic Other nutritional; endocrine; and metabolic disorders (14 sources) Hypercalcemia; Translations: [Hypercalcemia] Chronic Other nutritional; endocrine; and metabolic disorders (17 sources) Obese class II; Translations: [Body mass index (BMI) 35.0-35.9, adult] Chronic Other nutritional; endocrine; and metabolic disorders (4 sources) Body mass index (BMI) 35.0-35.9, adult; Translations: [Body Mass Index 35.0-35.9, adult] Onset: 2 Resolved: 2 Chronic Other nutritional; endocrine; and metabolic disorders (4 sources) Obesity; Translations: [Obesity, unspecified] Chronic Other nutritional; endocrine; and metabolic disorders (11 sources) Hypomagnesemia; Translations: [Hypomagnesemia] 05-25-2023 Chronic Other nutritional; endocrine; and metabolic disorders (10 sources) Hypophosphatemia; Translations: [Other disorders of phosphorus metabolism] 07-09-2023 Chronic Other nutritional; endocrine; and metabolic disorders (2 sources) Other disorders of phosphorus metabolism; Translations: [Disorders of phosphorus metabolism] Chronic Other nutritional; endocrine; and metabolic disorders (4 sources) Hypomagnesemia; Translations: [Disorders of magnesium metabolism] Onset: 4 Chronic Other nutritional; endocrine; and metabolic disorders (1 source) Body mass index 30+ - obesity; Translations: [Body mass index (BMI) 35.0-35.9, adult] 07-09-2023 Chronic Other nutritional; endocrine; and metabolic disorders (2 sources) Body mass index (BMI) 25.0-25.9, adult; Translations: [Body mass index (BMI) 25.0-25.9, adult] Onset: 4 Episodic Other screening for suspected conditions (not mental disorders or infectious disease) (18 sources) Thyroid function tests abnormal; Translations: [Abnormal thyroid function study] Onset: 2 01-05-2020 Episodic Other skin disorders (1 source) Localized swelling of left lower leg; Translations: [Localized swelling, mass and lump, left lower limb] 04-14-2023 Episodic Other upper respiratory disease (1 source) Allergic rhinitis; Translations: [Other allergic rhinitis] Onset: 0 09-02-2022 Chronic Residual codes; unclassified (3 sources) Left against medical advice; Translations: [Procedure and treatment not carried out because of patient's decision for other reasons] 02-01-2019 Episodic Residual codes; unclassified (10 sources) Never smoked any substance; Translations: [Other specified health status] Onset: 4 03-26-2023 Episodic Residual codes; unclassified (1 source) Edema of lower extremity; Translations: [Localized edema] 04-14-2023 Episodic Residual codes; unclassified (2 sources) Postoperative state; Translations: [Other specified postprocedural states] 04-16-2023 Episodic Residual codes; unclassified (9 sources) History of orchiectomy; Translations: [Acquired absence of other genital organ(s)] Onset: 4 04-28-2023 Episodic Spondylosis; intervertebral disc disorders; other back problems (1 source) Degeneration of cervical intervertebral disc; Translations: [Other cervical disc degeneration, unspecified cervical region] Onset: 0 09-02-2022 Chronic Unclassified (1 source) CONTACT W/AND (SUSP) EXPOS COVID-19; Translations: [CONTACT W/AND (SUSP) EXPOS COVID-19] Onset: 3 Unclassified (1 source) USP USE CALCINEURIN INHIBITOR; Translations: [USP USE CALCINEURIN INHIBITOR] Onset: 3 Unclassified (1 source) INSOLE FILLER INH NUCLEOTIDE SYNTHESIS; Translations: [INSOLE FILLER INH NUCLEOTIDE SYNTHESIS] Onset: 3 Unclassified (6 sources) Drug therapy finding 12-05-2018 Unclassified (1 source) Extended spectrum beta-lactamase producing bacteria carrier Onset: 4 06-02-2023 Urinary tract infections (4 sources) Urinary tract infectious disease; Translations: [Urinary tract infection, site not specified] Onset: 3 Resolved: 4 Episodic Viral infection (1 source) Other herpesviral infection Episodic Past or Other Problems Problem Classification Problem Date Documented Date Episodic/Chronic Abdominal pain (20 sources) Unspecified abdominal pain; Translations: [Right upper quadrant pain] Onset: 06-15-2022 Episodic Administrative/social admission (3 sources) Patient encounter status; Translations: [Persons encountering health services in other specified circumstances] Onset: 06-13-2023 06-21-2023 Episodic Bacterial infection; unspecified site (5 sources) Bacteremia; Translations: [Bacteremia] Onset: 02-01-2023 Episodic Biliary tract disease (17 sources) Biliary calculus; Translations: [Calculus of gallbladder without cholecystitis without obstruction] Onset: 09-02-2022 Resolved: 06-19-2023 07-02-2017 Episodic Blindness and vision defects (10 sources) Presbyopia; Translations: [Presbyopia] Onset: 09-02-2022 09-02-2022 Episodic Complication of device; implant or graft (6 sources) Pseudoaneurysm of surgical arteriovenous fistula; Translations: [Breakdown (mechanical) of surgically created arteriovenous fistula, initial encounter] Onset: 06-25-2022 06-26-2022 Episodic Genitourinary symptoms and ill-defined conditions (20 sources) Retention of urine; Translations: [Retention of urine, unspecified] Onset: 01-10-2023 01-16-2023 Episodic Inflammatory conditions of male genital organs (20 sources) Inflammation of scrotum; Translations: [Inflammatory disorders of scrotum] Onset: 04-13-2023 Episodic Mycoses (4 sources) Candidiasis; Translations: [Candidiasis, unspecified] Onset: 05-25-2023 05-25-2023 Episodic Other diseases of kidney and ureters (2 sources) Other obstructive and reflux uropathy; Translations: [Other obstructive and reflux uropathy] Onset: 06-09-2023 Episodic Other lower respiratory disease (1 source) Lung mass; Translations: [Other nonspecific abnormal finding of lung field] Onset: 11-18-2022 11-18-2022 Episodic Other male genital disorders (2 sources) Hydrocele, unspecified; Translations: [Hydrocele, unspecified] Onset: 04-27-2023 Episodic Other nervous system disorders (2 sources) Other acute postprocedural pain; Translations: [Other acute postprocedural pain] Onset: 06-13-2023 Episodic Other non-epithelial cancer of skin (1 source) Malignant neoplasm of skin of face; Translations: [Other specified malignant neoplasm of skin of other parts of face] Onset: 09-02-2022 09-02-2022 Episodic Other skin disorders (2 sources) Localized swelling, mass and lump, left lower limb; Translations: [Localized swelling, mass and lump, left lower limb] Onset: 04-13-2023 Episodic Residual codes; unclassified (4 sources) Other specified postprocedural states; Translations: [Other specified postprocedural states] Onset: 04-13-2023 Episodic Residual codes; unclassified (2 sources) Acquired absence of other genital organ(s); Translations: [Acquired absence of other genital organ(s)] Onset: 04-27-2023 Episodic Residual codes; unclassified (2 sources) Other specified health status; Translations: [Other specified health status] Onset: 03-26-2023 Episodic Residual codes; unclassified (2 sources) Localized edema; Translations: [Localized edema] Onset: 04-13-2023 Episodic Septicemia (except in labor) (20 sources) Sepsis; Translations: [Sepsis, unspecified organism] Onset: 02-24-2023 02-25-2023 Episodic Unclassified (4 sources) Never smoked tobacco; Translations: [Never a smoker] Unclassified (7 sources) Onset: 03-26-2023 Resolved: 05-25-2023 03-26-2023 Results Test Name Value Interpretation Reference Range Facility Glucose Test strip manual (B ld) [Mass/Vol]on 06-21-2023 Glucose [Mass/Vol] 74 mg/dL 74 - 99 mg/dL [facility] Interpretation and review of laboratory results Normal [facility] Glucose [Mass/Vol] 74 mg/dL Normal 74-99 [facility] Comment on above: Performed By: #### 2 341-6 ####SARAH Mcknight ([id number])[facility] ([facility])[address] [place] [address] Glucose [Mass/Vol] 76 mg/dL 74 - 99 mg/dL [facility] Interpretation and review of laboratory results Normal [facility] Glucose [Mass/Vol] 76 mg/dL Normal 74-99 [facility] Comment on above: Performed By: #### 2 341-6 ####SARAH Mcknight ([id number])[facility] ([facility])[address] [place] [address] Glucose [Mass/Vol] 90 mg/dL 74 - 99 mg/dL [facility] Interpretation and review of laboratory results Normal [facility] Glucose [Mass/Vol] 90 mg/dL Normal 74-99 [facility] Comment on above: Performed By: #### 2 341-6 ####SARAH Mcknight ([id number])[facility] ([facility])[address] [place] [address] Glucose [Mass/Vol] 100 mg/dL High 74 - 99 mg/dL [facility] Interpretation and review of laboratory results Abnormal [facility] Glucose [Mass/Vol] 100 mg/dL High 74-99 [facility] Comment on above: Performed By: #### 2 341-6 ####SARAH Mcknight ([id number])[facility] ([facility])[id number] [place] [address] Tacrolimuson 06-21-2023 Tacrolimus (Bld) [Mass/Vol] 7.5 ng/mL Normal <=15.0 [facility] Comment on above: Order Comment: NOTE: Result was obtained using achemiluminescent microparticle immunoassay(CMIA) on the [employer] i system.Optimal therapeutic ranges for immunosuppressantdrugs depend upon an individualpatient's current clinical state, type oforgan transplant, time post-transplant,co-administration of other immunosuppressants,and other clinical factors. The results ofthis test should be correlated with additionalclinical and laboratory data before changesin treatment regimens are made. Performed By: #### 1 1253-2 ####SARAH Mcknight ([id number])[facility] ([facility])[id number] [place] [address] Tacrolimus (Bld) [Mass/Vol]O rdered By: Jessica Ghosh on 06-21-2023 Interpretation and review of laboratory results Normal [facility] Tacrolimus levelOrdered By: Jessica Ghosh on 06-21-2023 Tacrolimus (Bld) [Mass/Vol] 7.5 ng/mL NINF - 15.0 ng/mL [facility] Bacteria identified Cx Nom ( Bld)on 06-20-2023 Interpretation and review of laboratory results Normal [facility] CBC panel Auto (Bld)on 06-19 Erythrocyte distribution width (RBC) [Ratio] 15.5 % High 11.5 - 14.5 % [facility] Hematocrit (Bld) [Volume fraction] 24.4 % Low 41.0 - 52.0 % [facility] Hemoglobin (Bld) [Mass/Vol] 8.1 g/dL Low 13.5 - 17.5 g/dL [facility] Interpretation and review of laboratory results Abnormal [facility] MCH (RBC) [Entitic mass] 29.6 pg 26.0 - 34.0 pg [facility] MCHC (RBC) [Mass/Vol] 33.2 g/dL 32.0 - 36.0 g/dL [facility] MCV (RBC) [Entitic vol] 89 fL 80 - 100 fL [facility] Nucleated RBC/100 WBC (Bld) [Ratio] 0.0 % [facility] Platelets (Bld) [#/Vol] 188 10*3/uL [facility] RBC (Bld) [#/Vol] 2.74 10*6/uL [facility] WBC (Bld) [#/Vol] 5.3 10*3/uL [facility] Erythrocyte distribution width (RBC) [Ratio] 15.5 % High 11.5-14.5 [facility] Comment on above: Performed By: #### 5 8410-2 ####SARAH Mcknight ([id number])[facility] ([facility])[address] [place] [address] Hematocrit (Bld) [Volume fraction] 24.4 % Low 41.0-52.0 [facility] Comment on above: Performed By: #### 5 8410-2 ####SARAH Mcknight ([id number])[facility] ([facility])[id number] [place] [address] Hemoglobin (Bld) [Mass/Vol] 8.1 g/dL Low 13.5-17.5 [facility] Comment on above: Performed By: #### 5 8410-2 ####SARAH Mcknight ([id number])[facility] ([facility])[address] [place] [address]81 MCH (RBC) [Entitic mass] 29.6 pg Normal 26.0-34.0 [facility] Comment on above: Performed By: #### 5 8410-2 ####SARAH Mcknight ([id number])[facility] ([facility])[id number] [place] [address]754 MCHC (RBC) [Mass/Vol] 33.2 g/dL Normal 32.0-36.0 [facility] Comment on above: Performed By: #### 5 8410-2 ####SARAH Mcknight ([id number])[facility] ([facility])[id number] [place] [address] 24487 MCV (RBC) [Entitic vol] 89 fL Normal 80-100 [facility] Comment on above: Performed By: #### 5 8410-2 ####SARAH Mcknight ([id number])[facility] ([facility])[address] [place] [address]365 Nucleated RBC/100 WBC (Bld) [Ratio] 0.0 /100 WBCs Normal 0.0-0.0 [facility] Comment on above: Performed By: #### 5 8410-2 ####SARAH Mcknight ([id number])[facility] ([facility])[address] [place] [address] Platelets (Bld) [#/Vol] 188 x10*3/uL Normal 150-450 [facility] Comment on above: Performed By: #### 5 8410-2 ####SARAH Mcknight ([id number])[facility] ([facility])[address] [place] [address] RBC (Bld) [#/Vol] 2.74 x10*6/uL Low 4.50-5.90 [facility] Comment on above: Performed By: #### 5 8410-2 ####SARAH Mcknight ([id number])[facility] ([facility])[id number] [place] [address] WBC (Bld) [#/Vol] 5.3 x10*3/uL Normal 4.4-11.3 [facility] Comment on above: Performed By: #### 5 8410-2 ####SARAH Mcknight ([id number])[facility] ([facility])[id number] [place] [address] Glucose Test strip manual (B ld) [Mass/Vol]on 06-20-2023 Glucose [Mass/Vol] 119 mg/dL High 74 - 99 mg/dL [facility] Interpretation and review of laboratory results Abnormal [facility] Glucose [Mass/Vol] 119 mg/dL High 74-99 [facility] Comment on above: Performed By: #### 2 341-6 ####SARAH OMER L ([id number])[facility] ([facility])[id number] [place] [address] Glucose [Mass/Vol] 108 mg/dL High 74 - 99 mg/dL [facility] Interpretation and review of laboratory results Abnormal [facility] Glucose [Mass/Vol] 108 mg/dL High 74-99 [facility] Comment on above: Performed By: #### 2 341-6 ####SARAH Mcknight ([id number])[facility] ([facility])[address] [place] [address] Glucose [Mass/Vol] 87 mg/dL 74 - 99 mg/dL [facility] Interpretation and review of laboratory results Normal [facility] Glucose [Mass/Vol] 87 mg/dL Normal 74-99 [facility] Comment on above: Performed By: #### 2 341-6 ####SARAH Mcknight ([id number])[facility] ([facility])[address] [place] [address] Glucose [Mass/Vol] 79 mg/dL 74 - 99 mg/dL [facility] Interpretation and review of laboratory results Normal [facility] Glucose [Mass/Vol] 79 mg/dL Normal 74-99 [facility] Comment on above: Performed By: #### 2 341-6 ####SARAH Mcknight ([id number])[facility] ([facility])[address] [place] [address] Glucose [Mass/Vol] 83 mg/dL 74 - 99 mg/dL [facility] Interpretation and review of laboratory results Normal [facility] Glucose [Mass/Vol] 83 mg/dL Normal 74-99 [facility] Comment on above: Performed By: #### 2 341-6 ####SARAH Mcknight ([id number])[facility] ([facility])[address] [place] [address] Glucose [Mass/Vol] 103 mg/dL High 74 - 99 mg/dL [facility] Interpretation and review of laboratory results Abnormal [facility] Glucose [Mass/Vol] 103 mg/dL High 74-99 [facility] Comment on above: Performed By: #### 2 341-6 ####SARAH Mcknight ([id number])[facility] ([facility])[address] [place] [address] Laboratory - Microbiology an d Antimicrobial susceptibilityon 06-20-2023 Bacteria identified Cx Nom (Bld) No growth at 4 days - FINAL REPORT [facility] Magnesiumon 06-20-2023 Magnesium [Mass/Vol] 1.68 mg/dL 1.60 - 2.40 mg/dL [facility] Magnesium [Mass/Vol] 1.68 mg/dL Normal 1.60-2.40 [facility] Comment on above: Performed By: #### 1 9123-9 ####SARAH Mcknight ([id number])[facility] ([facility])[id number] [place] [address] Magnesium [Mass/Vol]on 06-19 Interpretation and review of laboratory results Normal [facility] No Panel Informationon 06-19 [facility] Renal function 2000 panelon 06-20-2023 Albumin BCP dye [Mass/Vol] 1.9 g/dL Low 3.4 - 5.0 g/dL [facility] Anion gap [Moles/Vol] 9 mmol/L Low 10 - 2 0 mmol/L [facility] Calcium [Mass/Vol] 9.6 mg/dL 8.6 - 10. 6 mg/dL [facility] Chloride [Moles/Vol] 112 mmol/L High 98 - 10 7 mmol/L [facility] CO2 [Moles/Vol] 20 mmol/L Low 21 - 32 mmol/L [facility] Creatinine [Mass/Vol] 0.45 mg/dL Low 0.50 - 1.30 mg/dL [facility] eGFR - PINF [facility] Glucose [Mass/Vol] 82 mg/dL 74 - 99 mg/dL [facility] Interpretation and review of laboratory results Abnormal [facility] Phosphate [Mass/Vol] 2.1 mg/dL Low 2.5 - 4 .9 mg/dL [facility] Potassium [Moles/Vol] 4.0 mmol/L 3.5 - 5.3 mmol/L [facility] Sodium [Moles/Vol] 137 mmol/L 136 - 145 mmol/L [facility] Urea nitrogen [Mass/Vol] 11 mg/dL 6 - 23 mg/dL [facility] Albumin BCP dye [Mass/Vol] 1.9 g/dL Low 3.4-5.0 [facility] Comment on above: Performed By: #### 2 4362-6 ####SARAH Mcknight ([id number])[facility] ([facility])[address] [place] [address] Anion gap [Moles/Vol] 9 mmol/L Low 10-20 [facility] Comment on above: Performed By: #### 2 4362-6 ####SRAAH Mcknight ([id number])[facility] ([facility])[address] [place] [address] Calcium [Mass/Vol] 9.6 mg/dL Normal 8.6-10.6 [facility] Comment on above: Performed By: #### 2 4362-6 ####SARAH Mcknight ([id number])[facility] ([facility])[address] [place] [address] Chloride [Moles/Vol] 112 mmol/L High 98-107 [facility] Comment on above: Performed By: #### 2 4362-6 ####SARAH Mcknight ([id number])[facility] ([facility])[address] [place] [address] CO2 [Moles/Vol] 20 mmol/L Low 21-32 [facility] Comment on above: Performed By: #### 2 4362-6 ####SARAH OMER L ([id number])[facility] ([facility])[address] [place] [address] Creatinine [Mass/Vol] 0.45 mg/dL Low 0.50-1.30 [facility] Comment on above: Performed By: #### 2 4362-6 ####SARAH OMER L ([id number])[facility] ([facility])[address] [place] [address] GFR/1.73 sq M.predicted MDRD (S/P/Bld) [Vol rate/Area] mL/min/{1.73_m2} Normal >60 [facility] Comment on above: Result Comment: Calc ulations of estimated GFR are performed using the 2020 CKD-EPI Study Refit equation without the race variable for the IDMS-Traceable creatinine methods.https://jasn.asnjournals.org/content//A SN.3930757154 Performed By: #### 2 4362-6 ####SARAH Mcknight ([id number])[facility] ([facility])[address] [place] [address] Glucose [Mass/Vol] 82 mg/dL Normal 74-99 [facility] Comment on above: Performed By: #### 2 4362-6 ####SARAH Mcknight ([id number])[facility] ([facility])[address] [place] [address] Phosphate [Mass/Vol] 2.1 mg/dL Low 2.5-4.9 [facility] Comment on above: Result Comment: The performance characteristics of phosphorus testing in heparinized plasma have been validated by the individual laboratory site where testing is performed. Testing on heparinized plasma is not approved by the FDA; however, such approval is not necessary. Performed By: #### 2 4362-6 ####SARAH Mcknight ([id number])[facility] ([facility])[address] [place] [address] Potassium [Moles/Vol] 4.0 mmol/L Normal 3.5-5.3 [facility] Comment on above: Performed By: #### 2 4362-6 ####SARAH Mcknight ([id number])[facility] ([facility])[address] [place] [address] Sodium [Moles/Vol] 137 mmol/L Normal 136-145 [facility] Comment on above: Performed By: #### 2 4362-6 ####SARAH OMER L ([id number])[facility] ([facility])[address] [place] [address] Urea nitrogen [Mass/Vol] 11 mg/dL Normal 6-23 [facility] Comment on above: Performed By: #### 2 4362-6 ####SARAH OMER L ([id number])[facility] ([facility])[address] [place] [address] Tacrolimuson 06-20-2023 Tacrolimus (Bld) [Mass/Vol] 6.9 ng/mL Normal <=15.0 [facility] Comment on above: Order Comment: NOTE: Result was obtained using achemiluminescent microparticle immunoassay(CMIA) on the Tunnel Mucker i system.Optimal therapeutic ranges for immunosuppressantdrugs depend upon an individualpatient's current clinical state, type oforgan transplant, time post-transplant,co-administration of other immunosuppressants,and other clinical factors. The results ofthis test should be correlated with additionalclinical and laboratory data before changesin treatment regimens are made. Performed By: #### 1 1253-2 ####SARAH Mcknight ([id number])[facility] ([facility])[address] [place] [address] Tacrolimus (Bld) [Mass/Vol]o n 06-20-2023 Interpretation and review of laboratory results Normal [facility] Work Phone: [facility] Work Phone: [facility] Work Phone: Tacrolimus levelon Tacrolimus (Bld) [Mass/Vol] 6.9 ng/mL NINF - 15.0 ng/mL [facility] Work Phone: CBC panel Auto (Bld)on 06-18 Erythrocyte distribution width (RBC) [Ratio] 15.4 % High 11.5 - 14.5 % [facility] Hematocrit (Bld) [Volume fraction] 24.9 % Low 41.0 - 52.0 % [facility] Hemoglobin (Bld) [Mass/Vol] 8.3 g/dL Low 13.5 - 17.5 g/dL [facility] Interpretation and review of laboratory results Abnormal [facility] MCH (RBC) [Entitic mass] 29.2 pg 26.0 - 34.0 pg [facility] MCHC (RBC) [Mass/Vol] 33.3 g/dL 32.0 - 36.0 g/dL [facility] MCV (RBC) [Entitic vol] 88 fL 80 - 100 fL [facility] Nucleated RBC/100 WBC (Bld) [Ratio] 0.0 % [facility] Platelets (Bld) [#/Vol] 161 10*3/uL [facility] RBC (Bld) [#/Vol] 2.84 10*6/uL Low [facility] WBC (Bld) [#/Vol] 4.6 10*3/uL [facility] Erythrocyte distribution width (RBC) [Ratio] 15.4 % High 11.5-14.5 [facility] Comment on above: Performed By: #### 5 8410-2 ####SARAH Mcknight ([id number])[facility] ([facility])[address] [place] [address] Hematocrit (Bld) [Volume fraction] 24.9 % Low 41.0-52.0 [facility] Comment on above: Performed By: #### 5 8410-2 ####SARAH Mcknight ([id number])[facility] ([facility])[address] [place] [address] Hemoglobin (Bld) [Mass/Vol] 8.3 g/dL Low 13.5-17.5 [facility] Comment on above: Performed By: #### 5 8410-2 ####SARAH Mcknight ([id number])[facility] ([facility])[address] [place] [address] MCH (RBC) [Entitic mass] 29.2 pg Normal 26.0-34.0 [facility] Comment on above: Performed By: #### 5 8410-2 ####SARAH OMER L ([id number])[facility] ([facility])[address] [place] [address] MCHC (RBC) [Mass/Vol] 33.3 g/dL Normal 32.0-36.0 [facility] Comment on above: Performed By: #### 5 8410-2 ####SARAH OMER L ([id number])[facility] ([facility])[address] [place] [address] MCV (RBC) [Entitic vol] 88 fL Normal 80-100 [facility] Comment on above: Performed By: #### 5 8410-2 ####SARAH Mcknight ([id number])[facility] ([facility])[address] [place] [address] Nucleated RBC/100 WBC (Bld) [Ratio] 0.0 /100 WBCs Normal 0.0-0.0 [facility] Comment on above: Performed By: #### 5 8410-2 ####SARAH Mcknight ([id number])[facility] ([facility])[address] [place] [address] Platelets (Bld) [#/Vol] 161 x10*3/uL Normal 150-450 [facility] Comment on above: Performed By: #### 5 8410-2 ####SARAH Mcknight ([id number])[facility] ([facility])[address] [place] [address] RBC (Bld) [#/Vol] 2.84 x10*6/uL Low 4.50-5.90 [facility] Comment on above: Performed By: #### 5 8410-2 ####SARAH Mcknight ([id number])[facility] ([facility])[address] [place] [address] WBC (Bld) [#/Vol] 4.6 x10*3/uL Normal 4.4-11.3 [facility] Comment on above: Performed By: #### 5 8410-2 ####SARAH Mcknight ([id number])[facility] ([facility])[address] [place] [address] Electrocardiogram, 12-lead P RN ACS symptomson 06-19-2023 Atrial Rate 102 BPM [facility] Work Phone: P [place] 21 degrees [facility] Work Phone: P Offset 204 ms [facility] Work Phone: P Onset 150 [facility] Work Phone: [place] Interval 130 ms [facility] Work Phone: [phone] Q Onset 215 ms [facility] Work Phone: [phone] QRS Count 17 beats [facility] Work Phone: [phone] QRS Duration 92 ms [facility] Work Phone: [phone] QT Interval 356 ms [facility] Work Phone: [phone] QTC Calculation(Bazett) 463 [facility] Work Phone: [phone] QTC Fredericia 424 ms [facility] Work Phone: [phone] R [place] -26 degrees [facility] Work Phone: [phone] T [place] 43 degrees [facility] Work Phone: [phone] T Offset 393 ms [facility] Work Phone: [phone] Ventricular Rate 102 BPM [facility] Work Phone: [phone] MUSE [facility] Work Phone: [phone] [facility] Work Phone: Glucose Test strip manual (B ld) [Mass/Vol]on 06-19-2023 Glucose [Mass/Vol] 125 mg/dL High 74 - 99 mg/dL [facility] Interpretation and review of laboratory results Abnormal [facility] Glucose [Mass/Vol] 125 mg/dL High 74-99 [facility] Comment on above: Performed By: #### 2 341-6 ####SARAH Mcknight ([id number])[facility] ([facility])[address] [place] [address] Glucose [Mass/Vol] 103 mg/dL High 74 - 99 mg/dL [facility] Interpretation and review of laboratory results Abnormal [facility] Glucose [Mass/Vol] 103 mg/dL High 74-99 [facility] Comment on above: Performed By: #### 2 341-6 ####SARAH Mcknight ([id number])[facility] ([facility])[address] [place] [address] Glucose [Mass/Vol] 95 mg/dL 74 - 99 mg/dL [facility] Interpretation and review of laboratory results Normal [facility] Glucose [Mass/Vol] 95 mg/dL Normal 74-99 [facility] Comment on above: Performed By: #### 2 341-6 ####SARAH Mcknight ([id number])[facility] ([facility])[address] [place] [address] Glucose [Mass/Vol] 90 mg/dL 74 - 99 mg/dL [facility] Interpretation and review of laboratory results Normal [facility] Glucose [Mass/Vol] 90 mg/dL Normal 74-99 [facility] Comment on above: Performed By: #### 2 341-6 ####SARAH Mcknight ([id number])[facility] ([facility])[address] [place] [address] Glucose [Mass/Vol] 121 mg/dL High 74 - 99 mg/dL [facility] Interpretation and review of laboratory results Abnormal [facility] Glucose [Mass/Vol] 121 mg/dL High 74-99 [facility] Comment on above: Performed By: #### 2 341-6 ####SARAH Mcknight ([id number])[facility] ([facility])[address] [place] [address] Magnesiumon 06-19-2023 Magnesium [Mass/Vol] 1.84 mg/dL 1.60 - 2.40 mg/dL [facility] Magnesium [Mass/Vol] 1.84 mg/dL Normal 1.60-2.40 [facility] Comment on above: Performed By: #### 1 9123-9 ####SARAH Mcknight ([id number])[facility] ([facility])[address] [place] [address] Magnesium [Mass/Vol]on 06-18 Interpretation and review of laboratory results Normal [facility] No Panel Informationon 06-18 [facility] Interpretation and review of laboratory results Abnormal [facility] Prepare RBC: 1 Unitson 06-18 Blood Expiration Date June 26, 2023 23:59 EDT [facility] Dispense Status PT [facility] PRODUCT BLOOD TYPE 6200 [facility] PRODUCT CODE [id number] [facility] Unit ABO A [facility] Unit Number [id number] [facility] Unit RH Positive [facility] UNIT VOLUME 350 [facility] XM INTEP COMP [facility] Renal function 2000 panelon 06-19-2023 Albumin BCP dye [Mass/Vol] 2.0 g/dL Low 3.4 - 5.0 g/dL [facility] Anion gap [Moles/Vol] 9 mmol/L Low 10 - 2 0 mmol/L [facility] Calcium [Mass/Vol] 9.6 mg/dL 8.6 - 10. 6 mg/dL [facility] Chloride [Moles/Vol] 110 mmol/L High 98 - 10 7 mmol/L [facility] CO2 [Moles/Vol] 22 mmol/L 21 - 32 mmol/L [facility] Creatinine [Mass/Vol] 0.42 mg/dL Low 0.50 - 1.30 mg/dL [facility] eGFR - PINF [facility] Glucose [Mass/Vol] 96 mg/dL 74 - 99 mg/dL [facility] Phosphate [Mass/Vol] 2.1 mg/dL Low 2.5 - 4 .9 mg/dL [facility] Potassium [Moles/Vol] 3.8 mmol/L 3.5 - 5.3 mmol/L [facility] Sodium [Moles/Vol] 137 mmol/L 136 - 145 mmol/L [facility] Urea nitrogen [Mass/Vol] 10 mg/dL 6 - 23 mg/dL [facility] Albumin BCP dye [Mass/Vol] 2.0 g/dL Low 3.4-5.0 [facility] Comment on above: Performed By: #### 2 4362-6 ####SARAH Mcknight ([id number])[facility] ([facility])[address] [place] [address] Anion gap [Moles/Vol] 9 mmol/L Low 10-20 [facility] Comment on above: Performed By: #### 2 4362-6 ####SARAH OMER L ([id number])[facility] ([facility])[address] [place] [address] Calcium [Mass/Vol] 9.6 mg/dL Normal 8.6-10.6 [facility] Comment on above: Performed By: #### 2 4362-6 ####SARAH OMER L ([id number])[facility] ([facility])[address] [place] [address] Chloride [Moles/Vol] 110 mmol/L High 98-107 [facility] Comment on above: Performed By: #### 2 4362-6 ####SARAH OMER L ([id number])[facility] ([facility])[address] [place] [address] CO2 [Moles/Vol] 22 mmol/L Normal 21-32 [facility] Comment on above: Performed By: #### 2 4362-6 ####SARAH OMER L ([id number])[facility] ([facility])[address] [place] [address] Creatinine [Mass/Vol] 0.42 mg/dL Low 0.50-1.30 [facility] Comment on above: Performed By: #### 2 4362-6 ####SARAH OMER L ([id number])[facility] ([facility])[address] [place] [address] GFR/1.73 sq M.predicted MDRD (S/P/Bld) [Vol rate/Area] mL/min/{1.73_m2} Normal >60 [facility] Comment on above: Result Comment: Calc ulations of estimated GFR are performed using the 2020 CKD-EPI Study Refit equation without the race variable for the IDMS-Traceable creatinine methods.https://jasn.asnjournals.org/content/early//A .1351601971 Performed By: #### 2 4362-6 ####SARAH Mcknight ([id number])[facility] ([facility])[address] [place] [address] Glucose [Mass/Vol] 96 mg/dL Normal 74-99 [facility] Comment on above: Performed By: #### 2 4362-6 ####SARAH Mcknight ([id number])[facility] ([facility])[address] [place] [address] Phosphate [Mass/Vol] 2.1 mg/dL Low 2.5-4.9 [facility] Comment on above: Result Comment: The performance characteristics of phosphorus testing in heparinized plasma have been validated by the individual laboratory site where testing is performed. Testing on heparinized plasma is not approved by the FDA; however, such approval is not necessary. Performed By: #### 2 4362-6 ####SARAH Mcknight ([id number])[facility] ([facility])[address] [place] [address] Potassium [Moles/Vol] 3.8 mmol/L Normal 3.5-5.3 [facility] Comment on above: Performed By: #### 2 4362-6 ####SARAH Mcknight ([id number])[facility] ([facility])[address] [place] [address] Sodium [Moles/Vol] 137 mmol/L Normal 136-145 [facility] Comment on above: Performed By: #### 2 4362-6 ####SARAH Mcknight ([id number])[facility] ([facility])[address] [place] [address] Urea nitrogen [Mass/Vol] 10 mg/dL Normal 6-23 [facility] Comment on above: Performed By: #### 2 4362-6 ####SARAH Mcknight ([id number])[facility] ([facility])[address] [place] [address] Tacrolimuson 06-19-2023 Tacrolimus (Bld) [Mass/Vol] 5.5 ng/mL Normal <=15.0 [facility] Comment on above: Order Comment: NOTE: Result was obtained using achemiluminescent microparticle immunoassay(CMIA) on the Tunnel Mucker i system.Optimal therapeutic ranges for immunosuppressantdrugs depend upon an individualpatient's current clinical state, type oforgan transplant, time post-transplant,co-administration of other immunosuppressants,and other clinical factors. The results ofthis test should be correlated with additionalclinical and laboratory data before changesin treatment regimens are made. Performed By: #### 1 1253-2 ####SARAH Mcknight ([id number])[facility] ([address] [address] Tacrolimus (Bld) [Mass/Vol]O rdered By: Ila Hutchinson on 06-19-2023 Interpretation and review of laboratory results Normal [facility] Tacrolimus levelOrdered By: Ila Hutchinson on 06-19-2023 Tacrolimus (Bld) [Mass/Vol] 5.5 ng/mL NINF - 15.0 ng/mL [facility] Vancomycinon 06-19-2023 Vancomycin [Mass/Vol] 26.6 ug/mL High 5.0 - 20.0 ug/mL [facility] Vancomycin [Mass/Vol] 26.6 ug/mL High 5.0-20.0 [facility] Comment on above: Order Comment: Vanco mycin levels can be monitored according to area under the curve (AUC) or concentration (ug/mL). The preferred monitoring strategy is determined by the patient's renal function and indication for therapy.For AUC monitoring, a random vancomycin level should be interpreted in the context of AUC rather than the concentration at a single point in time.For concentration monitoring, a trough concentration drawn immediately prior to the next dose is preferred.Therapeutic ranges using concentration-guided results:Peak (all ages): 30.0-40.0 ug/mLTrough (all ages): 10.0-20.0 ug/mL Performed By: #### 2 0578-1 ####SARAH Mcknight ([id number])[facility] ([facility])[address] [place] [address] Vancomycin [Mass/Vol]on [facility] Bacteria identified Cx Nom ( Bld)Ordered By: Kristie Weiss on 06-18-2023 Bacteria identified Aer cx Nom (Bld) Positive [facility] Interpretation and review of laboratory results Abnormal [facility] Microscopic observation Gram stain Nom (Unsp spec) Negative Critically abnormal [facility] Blood CultureOrdered By: Shy Weiss on 06-18-2023 Bacteria identified Cx Nom (Bld) Escherichia coli Critically abnormal [facility] Blood type and Indirect anti body screen panel (Bld)on 06-18-2023 ABO group Nom (Bld) A [facility] Blood group antibody screen Ql Negative [facility] D Ag Ql (Bld) Positive [facility] ABO group Nom (Bld) A Normal [facility] Comment on above: Performed By: #### 3 4532-2 ####SARAH Mcknight ([id number])[facility] ([facility])[address] [place] [address] Blood group antibody screen Ql Negative Normal [facility] Comment on above: Performed By: #### 3 4532-2 ####SARAH Mcknight ([id number])[facility] ([facility])[address] [place] [address] D Ag Ql (Bld) Positive Normal [facility] Comment on above: Performed By: #### 3 4532-2 ####SARAH Mcknight ([id number])[facility] ([facility])[address] [place] [address] CBC panel Auto (Bld)on 06-17 Erythrocyte distribution width (RBC) [Ratio] 15.5 % High 11.5 - 14.5 % [facility] Hematocrit (Bld) [Volume fraction] 20.8 % Low 41.0 - 52.0 % [facility] Hemoglobin (Bld) [Mass/Vol] 6.9 g/dL Low 13.5 - 17.5 g/dL [facility] Interpretation and review of laboratory results Abnormal [facility] MCH (RBC) [Entitic mass] 29.2 pg 26.0 - 34.0 pg [facility] MCHC (RBC) [Mass/Vol] 33.2 g/dL 32.0 - 36.0 g/dL [facility] MCV (RBC) [Entitic vol] 88 fL 80 - 100 fL [facility] Nucleated RBC/100 WBC (Bld) [Ratio] 0.0 % [facility] Platelets (Bld) [#/Vol] 148 10*3/uL Low [facility] RBC (Bld) [#/Vol] 2.36 10*6/uL [facility] WBC (Bld) [#/Vol] 5.4 10*3/uL [facility] Erythrocyte distribution width (RBC) [Ratio] 15.5 % High 11.5-14.5 [facility] Comment on above: Performed By: #### 5 8410-2 ####SARAH Mcknight ([id number])[facility] ([facility])[address] [place] [address] Hematocrit (Bld) [Volume fraction] 20.8 % Low 41.0-52.0 [facility] Comment on above: Performed By: #### 5 8410-2 ####SARAH Mcknight ([id number])[facility] ([facility])[address] [place] [address] Hemoglobin (Bld) [Mass/Vol] 6.9 g/dL Low 13.5-17.5 [facility] Comment on above: Performed By: #### 5 8410-2 ####SARAH Mcknight ([id number])[facility] ([facility])[address] [place] [address] MCH (RBC) [Entitic mass] 29.2 pg Normal 26.0-34.0 [facility] Comment on above: Performed By: #### 5 8410-2 ####SARAH Mcknight ([id number])[facility] ([facility])[address] [place] [address] MCHC (RBC) [Mass/Vol] 33.2 g/dL Normal 32.0-36.0 [facility] Comment on above: Performed By: #### 5 8410-2 ####SARAH Mcknight ([id number])[facility] ([facility])[address] [place] [address] MCV (RBC) [Entitic vol] 88 fL Normal 80-100 [facility] Comment on above: Performed By: #### 5 8410-2 ####SARAH Mcknight ([id number])[facility] ([facility])[address] [place] [address] Nucleated RBC/100 WBC (Bld) [Ratio] 0.0 /100 WBCs Normal 0.0-0.0 [facility] Comment on above: Performed By: #### 5 8410-2 ####SARAH Mcknight ([id number])[facility] ([facility])[address] [place] [address] Platelets (Bld) [#/Vol] 148 x10*3/uL Low 150-450 [facility] Comment on above: Performed By: #### 5 8410-2 ####SARAH Mcknight ([id number])[facility] ([facility])[address] [place] [address] RBC (Bld) [#/Vol] 2.36 x10*6/uL Low 4.50-5.90 [facility] Comment on above: Performed By: #### 5 8410-2 ####SARAH Mcknight ([id number])[facility] ([facility])[address] [place] [address] WBC (Bld) [#/Vol] 5.4 x10*3/uL Normal 4.4-11.3 [facility] Comment on above: Performed By: #### 5 8410-2 ####SARAH Mcknight ([id number])[facility] ([facility])[address] [place] [address] ECG 12-LEADon 06-18-2023 ECG 12-LEAD Ventricular Rate 102 Atrial Rate 102 P-R Interval 130 QRS Duration 92 Q-T Interval 356 QTC Calculation(Bazett) 463 P [place] 21 R [place] -26 T [place] 43 QRS Count 17 Q Onset 215 P Onset 150 P Offset 204 T Offset 393 QTC Fredericia 424 Diagnosis Sinus tachycardia Porr R wave progression, late transition Borderline left axis deviation Otherwise normal ECG When compared with ECG of 18-JUN-2023 11:39, No significant change was found Confirmed by Sherrill Shultz ([id number]) on 06/19/2023 9:47:35 AM Normal [facility] Ferritinon 06-18-2023 Ferritin [Mass/Vol] 264 ng/mL 20 - 300 ng/mL [facility] Ferritin [Mass/Vol] 264 ng/mL Normal 20-300 [facility] Comment on above: Performed By: #### 2 276-4 ####SARAH Mcknight ([id number])[facility] ([facility])[address] [place] [address] Ferritin [Mass/Vol]on 2023 Interpretation and review of laboratory results Normal [facility] Glucose Test strip manual (B ld) [Mass/Vol]on 06-18-2023 Glucose [Mass/Vol] 137 mg/dL High 74 - 99 mg/dL [facility] Interpretation and review of laboratory results Abnormal [facility] Glucose [Mass/Vol] 137 mg/dL High 74-99 [facility] Comment on above: Performed By: #### 2 341-6 ####SARAH Mcknight ([id number])[facility] ([facility])[address] [place] [address] Glucose [Mass/Vol] 147 mg/dL High 74 - 99 mg/dL [facility] Interpretation and review of laboratory results Abnormal [facility] Glucose [Mass/Vol] 147 mg/dL High 74-99 [facility] Comment on above: Performed By: #### 2 341-6 ####SARAH Mcknight ([id number])[facility] ([facility])[address] [place] [address] Glucose [Mass/Vol] 96 mg/dL 74 - 99 mg/dL [facility] Interpretation and review of laboratory results Normal [facility] Glucose [Mass/Vol] 96 mg/dL Normal 74-99 [facility] Comment on above: Performed By: #### 2 341-6 ####SARAH Mcknight ([id number])[facility] ([facility])[address] [place] [address] Glucose [Mass/Vol] 103 mg/dL High 74 - 99 mg/dL [facility] Interpretation and review of laboratory results Abnormal [facility] Glucose [Mass/Vol] 103 mg/dL High 74-99 [facility] Comment on above: Performed By: #### 2 341-6 ####SARAH Mcknight ([id number])[facility] ([facility])[address] [place] [address] Iron and Iron binding capaci ty panelon 06-18-2023 Iron [Mass/Vol] 23 ug/dL Low 35 - 150 ug/dL [facility] Iron binding capacity [Mass/Vol] 128 ug/dL Low 240 - 445 ug/dL [facility] Iron binding capacity.unsaturated [Mass/Vol] 105 ug/dL Low 110 - 370 ug/dL [facility] Iron saturation [Mass fraction] 18 % Low 25 - 45 % [facility] Iron [Mass/Vol] 23 ug/dL Low 35-150 [facility] Comment on above: Performed By: #### 5 0190-8 ####SARAH Mcknight ([id number])[facility] ([facility])[address] [place] [address] 45522 Iron binding capacity [Mass/Vol] 128 ug/dL Low 240-445 [facility] Comment on above: Performed By: #### 5 0190-8 ####SARAH Mcknight ([id number])[facility] ([facility])[address] [place] [address] 35277 Iron binding capacity.unsaturated [Mass/Vol] 105 ug/dL Low 110-370 [facility] Comment on above: Performed By: #### 5 0190-8 ####SARAH Mcknight ([id number])[facility] ([facility])[address] [place] [address] 41342 Iron saturation [Mass fraction] 18 % Low 25-45 [facility] Comment on above: Performed By: #### 5 0190-8 ####SARAH Mcknight ([id number])[facility] ([facility])[address] [place] [address] 32223 Lactate dehydrogenaseon LDH Lactate to pyruvate reaction [Catalytic activity/Vol] 68 U/L Low 84 - 246 U/L [facility] LDH Lactate to pyruvate reaction [Catalytic activity/Vol] 68 U/L Low 84-246 [facility] Comment on above: Performed By: #### 1 4804-9 ####SARAH Mcknight ([id number])[facility] ([facility])[address] [place] [address] 02898 Magnesiumon 06-18-2023 Magnesium [Mass/Vol] 1.90 mg/dL 1.60 - 2.40 mg/dL [facility] Magnesium [Mass/Vol] 1.90 mg/dL Normal 1.60-2.40 [facility] Comment on above: Performed By: #### 1 9123-9 ####ASRAH Mcknight ([id number])[facility] ([facility])[address] [place] [address] 64306 Magnesium [Mass/Vol]on 06-17 Interpretation and review of laboratory results Normal [facility] No Panel Informationon 06-17 Interpretation and review of laboratory results Abnormal [facility] Renal function 2000 panelon 06-18-2023 Albumin BCP dye [Mass/Vol] 2.1 g/dL Low 3.4 - 5.0 g/dL [facility] Anion gap [Moles/Vol] 8 mmol/L Low 10 - 2 0 mmol/L [facility] Calcium [Mass/Vol] 10.1 mg/dL 8.6 - 10. 6 mg/dL [facility] Chloride [Moles/Vol] 109 mmol/L High 98 - 10 7 mmol/L [facility] CO2 [Moles/Vol] 23 mmol/L 21 - 32 mmol/L [facility] Creatinine [Mass/Vol] 0.46 mg/dL Low 0.50 - 1.30 mg/dL [facility] eGFR - PINF [facility] Glucose [Mass/Vol] 107 mg/dL High 74 - 99 mg/dL [facility] Interpretation and review of laboratory results Abnormal [facility] Phosphate [Mass/Vol] 1.9 mg/dL Low 2.5 - 4 .9 mg/dL [facility] Potassium [Moles/Vol] 3.8 mmol/L 3.5 - 5.3 mmol/L [facility] Sodium [Moles/Vol] 136 mmol/L 136 - 145 mmol/L [facility] Urea nitrogen [Mass/Vol] 11 mg/dL 6 - 23 mg/dL [facility] Albumin BCP dye [Mass/Vol] 2.1 g/dL Low 3.4-5.0 [facility] Comment on above: Performed By: #### 2 4362-6 ####SARAH Mcknight ([id number])[facility] ([facility])[id number] [place] [address] 76181 Anion gap [Moles/Vol] 8 mmol/L Low 10-20 [facility] Comment on above: Performed By: #### 2 4362-6 ####SARAH Mcknight ([id number])[facility] ([facility])[address] [place] [address] 51648 Calcium [Mass/Vol] 10.1 mg/dL Normal 8.6-10.6 [facility] Comment on above: Performed By: #### 2 4362-6 ####SARAH Mcknight ([id number])[facility] ([facility])[address] [place] [address] 02106 Chloride [Moles/Vol] 109 mmol/L High 98-107 [facility] Comment on above: Performed By: #### 2 4362-6 ####SARAH Mcknight ([id number])[facility] ([facility])[address] [place] [address] CO2 [Moles/Vol] 23 mmol/L Normal 21-32 [facility] Comment on above: Performed By: #### 2 4362-6 ####SARAH Mcknight ([id number])[facility] ([facility])[address] [place] [address] Creatinine [Mass/Vol] 0.46 mg/dL Low 0.50-1.30 [facility] Comment on above: Performed By: #### 2 4362-6 ####SARAH Mcknight ([id number])[facility] ([facility])[address] [place] [address] GFR/1.73 sq M.predicted MDRD (S/P/Bld) [Vol rate/Area] mL/min/{1.73_m2} Normal >60 [facility] Comment on above: Result Comment: Calc ulations of estimated GFR are performed using the 2020 CKD-EPI Study Refit equation without the race variable for the IDMS-Traceable creatinine methods.https://jasn.asnjournals.org/content/early/A SN.3087879689 Performed By: #### 2 4362-6 ####SARAH Mcknight ([id number])[facility] ([facility])[address] [place] [address] Glucose [Mass/Vol] 107 mg/dL High 74-99 [facility] Comment on above: Performed By: #### 2 4362-6 ####SARAH Mcknight ([id number])[facility] ([facility])[address] [place] [address] Phosphate [Mass/Vol] 1.9 mg/dL Low 2.5-4.9 [facility] Comment on above: Result Comment: The performance characteristics of phosphorus testing in heparinized plasma have been validated by the individual laboratory site where testing is performed. Testing on heparinized plasma is not approved by the FDA; however, such approval is not necessary. Performed By: #### 2 4362-6 ####SARAH Mcknight ([id number])[facility] ([facility])[address] [place] [address] Potassium [Moles/Vol] 3.8 mmol/L Normal 3.5-5.3 [facility] Comment on above: Performed By: #### 2 4362-6 ####SARAH Mcknight ([id number])[facility] ([facility])[address] [place] [address] Sodium [Moles/Vol] 136 mmol/L Normal 136-145 [facility] Comment on above: Performed By: #### 2 4362-6 ####SARAH Mcknight ([id number])[facility] ([facility])[address] [place] [address] Urea nitrogen [Mass/Vol] 11 mg/dL Normal 6-23 [facility] Comment on above: Performed By: #### 2 4362-6 ####SARAH Mcknight ([id number])[facility] ([facility])[address] [place] [address] Bacteria identified Cx Nom ( Bld)on 06-17-2023 Bacteria identified Aer cx Nom (Bld) Positive [facility] Work Phone: Interpretation and review of laboratory results Abnormal [facility] Work Phone: Microscopic observation Gram stain Nom (Unsp spec) Positive Critically abnormal [facility] Work Phone: [facility] Work Phone: [facility] Work Phone: Blood Cultureon 06-17-2023 Bacteria identified Cx Nom (Bld) Negative Critically abnormal [facility] Work Phone: CBC panel Auto (Bld)on 06-16 Erythrocyte distribution width (RBC) [Ratio] 15.8 % High 11.5 - 14.5 % [facility] Hematocrit (Bld) [Volume fraction] 22.2 % Low 41.0 - 52.0 % [facility] Hemoglobin (Bld) [Mass/Vol] 6.9 g/dL Low 13.5 - 17.5 g/dL [facility] Interpretation and review of laboratory results Abnormal [facility] MCH (RBC) [Entitic mass] 27.7 pg 26.0 - 34.0 pg [facility] MCHC (RBC) [Mass/Vol] 31.1 g/dL Low 32.0 - 36.0 g/dL [facility] MCV (RBC) [Entitic vol] 89 fL 80 - 100 fL [facility] Nucleated RBC/100 WBC (Bld) [Ratio] 0.0 % [facility] Platelets (Bld) [#/Vol] 123 10*3/uL Low [facility] RBC (Bld) [#/Vol] 2.49 10*6/uL [facility] WBC (Bld) [#/Vol] 9.2 10*3/uL [facility] Erythrocyte distribution width (RBC) [Ratio] 15.8 % High 11.5-14.5 [facility] Comment on above: Performed By: #### 5 8410-2 ####SARAH Mcknight ([id number])[facility] ([facility])[address] [place] [address] Hematocrit (Bld) [Volume fraction] 22.2 % Low 41.0-52.0 [facility] Comment on above: Performed By: #### 5 8410-2 ####SARAH Mcknight ([id number])[facility] ([facility])[address] [place] [address] Hemoglobin (Bld) [Mass/Vol] 6.9 g/dL Low 13.5-17.5 [facility] Comment on above: Performed By: #### 5 8410-2 ####SARAH Mcknight ([id number])[facility] ([facility])[address] [place] [address] MCH (RBC) [Entitic mass] 27.7 pg Normal 26.0-34.0 [facility] Comment on above: Performed By: #### 5 8410-2 ####SARAH Mcknight ([id number])[facility] ([facility])[address] [place] [address] MCHC (RBC) [Mass/Vol] 31.1 g/dL Low 32.0-36.0 [facility] Comment on above: Performed By: #### 5 8410-2 ####SARAH Mcknight ([id number])[facility] ([facility])[address] [place] [address] MCV (RBC) [Entitic vol] 89 fL Normal 80-100 [facility] Comment on above: Performed By: #### 5 8410-2 ####SARAH Mcknight ([id number])[facility] ([facility])[address] [place] [address] Nucleated RBC/100 WBC (Bld) [Ratio] 0.0 /100 WBCs Normal 0.0-0.0 [facility] Comment on above: Performed By: #### 5 8410-2 ####SARAH Mcknight ([id number])[facility] ([facility])[address] [place] [address] Platelets (Bld) [#/Vol] 123 x10*3/uL Low 150-450 [facility] Comment on above: Performed By: #### 5 8410-2 ####SARAH Mcknight ([id number])[facility] ([facility])[address] [place] [address] RBC (Bld) [#/Vol] 2.49 x10*6/uL Low 4.50-5.90 [facility] Comment on above: Performed By: #### 5 8410-2 ####SARAH Mcknight ([id number])[facility] ([facility])[address] [place] [address] WBC (Bld) [#/Vol] 9.2 x10*3/uL Normal 4.4-11.3 [facility] Comment on above: Performed By: #### 5 8410-2 ####SARAH Mcknight ([id number])[facility] ([facility])[address] [place] [address] Calcium, ionizedon 4 Calcium.ionized (Bld) [Moles/Vol] 1.71 mmol/L High 1.1 - 1.33 mmol/L [facility] Calcium.ionizedon 06-17-2023 Calcium.ionized (Bld) [Moles/Vol] 1.71 mmol/L High 1.1-1.33 [facility] Comment on above: Result Comment: The performance characteristics of ionized calcium testedin heparinized plasma or serum have [facility] or [facility]; however, such approval is not necessary. Performed By: #### 1 994-3 ####SARAH Mcknight ([id number])[facility] ([facility])[address] [place] [address] 88674 Calcium.ionized (Bld) [Moles /Vol]on 06-17-2023 Interpretation and review of laboratory results Abnormal [facility] Gas panel (BldA)on 4 Base excess Calc (Bld) [Moles/Vol] -5.7000 mmol/L Low -2.0 - 3.0 mmol/L [facility] CO2 (Bld) [Partial pressure] 31 mm[Hg] Low [facility] HCO3 (Bld) [Moles/Vol] 18.3 mmol/L Low 22.0 - 26.0 mmol/L [facility] Interpretation and review of laboratory results Abnormal [facility] Oxygen (Bld) [Partial pressure] 91 mm[Hg] [facility] Oxyhemoglobin (BldA) [Mass fraction] 95.8 % 94.0 - 98.0 % [facility] pH (Bld) 7.38 [pH] 7.38 - 7.42 pH [facility] Base excess Calc (Bld) [Moles/Vol] -5.7000 mmol/L Low -2.0-3.0 [facility] Comment on above: Performed By: #### 2 4336-0 ####SARAH Mcknight ([id number])[facility] ([facility])[address] [place] [address] CO2 (Bld) [Partial pressure] 31 mm Hg Low 38-42 [facility] Comment on above: Performed By: #### 2 4336-0 ####SARAH Mcknight ([id number])[facility] ([facility])[address] [place] [address] 61342 HCO3 (Bld) [Moles/Vol] 18.3 mmol/L Low 22.0-26.0 [facility] Comment on above: Performed By: #### 2 4336-0 ####SARAH Mcknight ([id number])[facility] ([facility])[address] [place] [address] 15677 Oxygen (Bld) [Partial pressure] 91 mm Hg Normal 85-95 [facility] Comment on above: Performed By: #### 2 4336-0 ####SARAH Mcknight ([id number])[facility] ([facility])[address] [place] [address] 47332 Oxyhemoglobin (BldA) [Mass fraction] 95.8 % Normal 94.0-98.0 [facility] Comment on above: Performed By: #### 2 4336-0 ####SARAH Mcknight ([id number])[facility] ([facility])[address] [place] [address] 91096 pH (Bld) 7.38 [pH] Normal 7.38-7.42 [facility] Comment on above: Performed By: #### 2 4336-0 ####SARAH Mcknight ([id number])[facility] ([facility])[address] [place] [address] 72359 Glucose Test strip manual (B ld) [Mass/Vol]on 06-17-2023 Glucose [Mass/Vol] 110 mg/dL High 74 - 99 mg/dL [facility] Interpretation and review of laboratory results Abnormal [facility] Glucose [Mass/Vol] 110 mg/dL High 74-99 [facility] Comment on above: Performed By: #### 2 341-6 ####SARAH Mcknight ([id number])[facility] ([facility])[address] [place] [address] 61336 Glucose [Mass/Vol] 105 mg/dL High 74 - 99 mg/dL [facility] Interpretation and review of laboratory results Abnormal [facility] Glucose [Mass/Vol] 105 mg/dL High 74-99 [facility] Comment on above: Performed By: #### 2 341-6 ####SARAH Mcknight ([id number])[facility] ([facility])[address] [place] [address] 67836 Glucose [Mass/Vol] 95 mg/dL 74 - 99 mg/dL [facility] Interpretation and review of laboratory results Normal [facility] Glucose [Mass/Vol] 95 mg/dL Normal 74-99 [facility] Comment on above: Performed By: #### 2 341-6 ####SARAH Mcknight ([id number])[facility] ([facility])[address] [place] [address] 94306 Glucose [Mass/Vol] 84 mg/dL 74 - 99 mg/dL [facility] Interpretation and review of laboratory results Normal [facility] Glucose [Mass/Vol] 84 mg/dL Normal 74-99 [facility] Comment on above: Performed By: #### 2 341-6 ####SARAH Mcknight ([id number])[facility] ([facility])[address] [place] [address] 58749 Glucose [Mass/Vol] 69 mg/dL Low 74 - 99 mg/dL [facility] Interpretation and review of laboratory results Abnormal [facility] Glucose [Mass/Vol] 69 mg/dL Low 74-99 [facility] Comment on above: Performed By: #### 2 341-6 ####SARAH Mcknight ([id number])[facility] ([facility])[address] [place] [address] Glucose [Mass/Vol] 71 mg/dL Low 74 - 99 mg/dL [facility] Interpretation and review of laboratory results Abnormal [facility] Glucose [Mass/Vol] 71 mg/dL Low 74-99 [facility] Comment on above: Performed By: #### 2 341-6 ####SARAH Mcknight ([id number])[facility] ([facility])[address] [place] [address] 12691 Glucose [Mass/Vol] 73 mg/dL Low 74 - 99 mg/dL [facility] Interpretation and review of laboratory results Abnormal [facility] Glucose [Mass/Vol] 73 mg/dL Low 74-99 [facility] Comment on above: Performed By: #### 2 341-6 ####SARAH Mcknight ([id number])[facility] ([facility])[address] [place] [address] 69118 Glucose [Mass/Vol] 82 mg/dL 74 - 99 mg/dL [facility] Interpretation and review of laboratory results Normal [facility] Glucose [Mass/Vol] 82 mg/dL Normal 74-99 [facility] Comment on above: Performed By: #### 2 341-6 ####SARAH Mcknight ([id number])[facility] ([facility])[address] [place] [address] 03473 Light Blue Topon 06-17-2023 Extra Tube Hold for add-ons. [facility] Magnesiumon 06-17-2023 Magnesium [Mass/Vol] 1.92 mg/dL 1.60 - 2.40 mg/dL [facility] Magnesium [Mass/Vol] 1.92 mg/dL Normal 1.60-2.40 [facility] Comment on above: Performed By: #### 1 9123-9 ####SARAH Mcknight ([id number])[facility] ([facility])[address] [place] [address] 62203 Magnesium [Mass/Vol]on 06-16 Interpretation and review of laboratory results Normal [facility] No Panel Informationon 06-16 [facility] Renal function 2000 panelon 06-17-2023 Albumin BCP dye [Mass/Vol] 1.9 g/dL Low 3.4 - 5.0 g/dL [facility] Anion gap [Moles/Vol] 10 mmol/L 10 - 2 0 mmol/L [facility] Calcium [Mass/Vol] 10.0 mg/dL 8.6 - 10. 6 mg/dL [facility] Chloride [Moles/Vol] 108 mmol/L High 98 - 10 7 mmol/L [facility] CO2 [Moles/Vol] 20 mmol/L Low 21 - 32 mmol/L [facility] Creatinine [Mass/Vol] 0.50 mg/dL 0.50 - 1.30 mg/dL [facility] eGFR - PINF [facility] Glucose [Mass/Vol] 80 mg/dL 74 - 99 mg/dL [facility] Interpretation and review of laboratory results Abnormal [facility] Phosphate [Mass/Vol] 2.8 mg/dL 2.5 - 4 .9 mg/dL [facility] Potassium [Moles/Vol] 4.3 mmol/L 3.5 - 5.3 mmol/L [facility] Sodium [Moles/Vol] 134 mmol/L Low 136 - 145 mmol/L [facility] Urea nitrogen [Mass/Vol] 17 mg/dL 6 - 23 mg/dL [facility] Albumin BCP dye [Mass/Vol] 1.9 g/dL Low 3.4-5.0 [facility] Comment on above: Performed By: #### 2 4362-6 ####SARAH Mcknight ([id number])[facility] ([facility])[address] [place] [address] Anion gap [Moles/Vol] 10 mmol/L Normal 10-20 [facility] Comment on above: Performed By: #### 2 4362-6 ####SARAH Mcknight ([id number])[facility] ([facility])[address] [place] [address] Calcium [Mass/Vol] 10.0 mg/dL Normal 8.6-10.6 [facility] Comment on above: Performed By: #### 2 4362-6 ####SARAH Mcknight ([id number])[facility] ([facility])[address] [place] [address] Chloride [Moles/Vol] 108 mmol/L High 98-107 [facility] Comment on above: Performed By: #### 2 4362-6 ####SARAH Mcknight ([id number])[facility] ([facility])[address] [place] [address] CO2 [Moles/Vol] 20 mmol/L Low 21-32 [facility] Comment on above: Performed By: #### 2 4362-6 ####SARAH Mcknight (78506)[facility] ([facility])[address] [place] [address] Creatinine [Mass/Vol] 0.50 mg/dL Normal 0.50-1.30 [facility] Comment on above: Performed By: #### 2 4362-6 ####SARAH Mcknight ([id number])[facility] ([facility])[address] [place] [address] GFR/1.73 sq M.predicted MDRD (S/P/Bld) [Vol rate/Area] mL/min/{1.73_m2} Normal >60 [facility] Comment on above: Result Comment: Calc ulations of estimated GFR are performed using the 2020 CKD-EPI Study Refit equation without the race variable for the IDMS-Traceable creatinine methods.https://jasn.asnjournals.org/content//A SN.8385228982 Performed By: #### 2 4362-6 ####SARAH Mcknight ([id number])[facility] ([facility])[address] [place] [address] Glucose [Mass/Vol] 80 mg/dL Normal 74-99 [facility] Comment on above: Performed By: #### 2 4362-6 ####SARAH Mcknight ([id number])[facility] ([facility])[address] [place] [address] Phosphate [Mass/Vol] 2.8 mg/dL Normal 2.5-4.9 [facility] Comment on above: Result Comment: The performance characteristics of phosphorus testing in heparinized plasma have been validated by the individual laboratory site where testing is performed. Testing on heparinized plasma is not approved by the FDA; however, such approval is not necessary. Performed By: #### 2 4362-6 ####SARAH Mcknight ([id number])[facility] ([facility])[address] [place] [address] 99270 Potassium [Moles/Vol] 4.3 mmol/L Normal 3.5-5.3 [facility] Comment on above: Performed By: #### 2 4362-6 ####SARAH Mcknight ([id number])[facility] ([facility])[address] [place] [address] 88986 Sodium [Moles/Vol] 134 mmol/L Low 136-145 [facility] Comment on above: Performed By: #### 2 4362-6 ####SARAH Mcknight ([id number])[facility] ([facility])[address] [place] [address] 07991 Urea nitrogen [Mass/Vol] 17 mg/dL Normal 6-23 [facility] Comment on above: Performed By: #### 2 4362-6 ####SARAH Mcknight ([id number])[facility] ([facility])[address] [place] [address] Tacrolimuson 06-17-2023 Tacrolimus (Bld) [Mass/Vol] 4.3 ng/mL Normal <=15.0 [facility] Comment on above: Order Comment: NOTE: Result was obtained using achemiluminescent microparticle immunoassay(CMIA) on the [employer] i system.Optimal therapeutic ranges for immunosuppressantdrugs depend upon an individualpatient's current clinical state, type oforgan transplant, time post-transplant,co-administration of other immunosuppressants,and other clinical factors. The results ofthis test should be correlated with additionalclinical and laboratory data before changesin treatment regimens are made. Performed By: #### 1 1253-2 ####SARAH Mcknight ([id number])[facility] ([facility])[address] [place] [address] 91604 Tacrolimus (Bld) [Mass/Vol] 5.4 ng/mL Normal <=15.0 [facility] Comment on above: Order Comment: NOTE: Result was obtained using achemiluminescent microparticle immunoassay(CMIA) on the [employer] i system.Optimal therapeutic ranges for immunosuppressantdrugs depend upon an individualpatient's current clinical state, type oforgan transplant, time post-transplant,co-administration of other immunosuppressants,and other clinical factors. The results ofthis test should be correlated with additionalclinical and laboratory data before changesin treatment regimens are made. Performed By: #### 1 1253-2 ####SARAH Mcknight ([id number])[facility] ([facility])[address] [place], [place] [address] Tacrolimus (Bld) [Mass/Vol]O rdered By: Atiya Johnson on 06-17-2023 Interpretation and review of laboratory results Normal [facility] Tacrolimus (Bld) [Mass/Vol]O rdered By: Oswaldo Garcia on 06-17-2023 Interpretation and review of laboratory results Normal [facility] Tacrolimus levelOrdered By: Atiya Johnson on 06-17-2023 Tacrolimus (Bld) [Mass/Vol] 4.3 ng/mL NINF - 15.0 ng/mL [facility] Tacrolimus levelOrdered By: Oswaldo Garcia on 06-17-2023 Tacrolimus (Bld) [Mass/Vol] 5.4 ng/mL NINF - 15.0 ng/mL [facility] Vancomycinon 06-17-2023 Vancomycin [Mass/Vol] 22.8 ug/mL High 5.0 - 20.0 ug/mL [facility] Vancomycin [Mass/Vol] 22.8 ug/mL High 5.0-20.0 [facility] Comment on above: Order Comment: Vanco mycin levels can be monitored according to area under the curve (AUC) or concentration (ug/mL). The preferred monitoring strategy is determined by the patient's renal function and indication for therapy.For AUC monitoring, a random vancomycin level should be interpreted in the context of AUC rather than the concentration at a single point in time.For concentration monitoring, a trough concentration drawn immediately prior to the next dose is preferred.Therapeutic ranges using concentration-guided results:Peak (all ages): 30.0-40.0 ug/mLTrough (all ages): 10.0-20.0 ug/mL Performed By: #### 2 0578-1 ####SARAH Mcknight ([id number])[facility] ([facility])[address] [place], [place] [id number] Vancomycin [Mass/Vol]on Interpretation and review of laboratory results Abnormal [facility] Bacteria identifiedon 2023 Bacteria identified Cx Nom (Bld) Normal [facility] Comment on above: Performed By: #### 6 00-7 ####SARAH Mcknight ([id number])[facility] ([facility])[address] [place] [address]14 CBC panel Auto (Bld)on 06-15 Erythrocyte distribution width (RBC) [Ratio] 15.9 % High 11.5 - 14.5 % [facility] Hematocrit (Bld) [Volume fraction] 21.0 % Low 41.0 - 52.0 % [facility] Hemoglobin (Bld) [Mass/Vol] 7.1 g/dL Low 13.5 - 17.5 g/dL [facility] Interpretation and review of laboratory results Abnormal [facility] MCH (RBC) [Entitic mass] 29.6 pg 26.0 - 34.0 pg [facility] MCHC (RBC) [Mass/Vol] 33.8 g/dL 32.0 - 36.0 g/dL [facility] MCV (RBC) [Entitic vol] 88 fL 80 - 100 fL [facility] Nucleated RBC/100 WBC (Bld) [Ratio] 0.0 % [facility] Platelets (Bld) [#/Vol] 118 10*3/uL Low [facility] RBC (Bld) [#/Vol] 2.40 10*6/uL Low [facility] WBC (Bld) [#/Vol] 8.7 10*3/uL [facility] Erythrocyte distribution width (RBC) [Ratio] 15.9 % High 11.5-14.5 [facility] Comment on above: Performed By: #### 5 8410-2 ####SARAH Mcknight ([id number])[facility] ([facility])[address] [place] [address] 40043 Hematocrit (Bld) [Volume fraction] 21.0 % Low 41.0-52.0 [facility] Comment on above: Performed By: #### 5 8410-2 ####SARAH Mcknight ([id number])[facility] ([facility])[address] [place] [address] 37670 Hemoglobin (Bld) [Mass/Vol] 7.1 g/dL Low 13.5-17.5 [facility] Comment on above: Performed By: #### 5 8410-2 ####SARAH Mcknight ([id number])[facility] ([facility])[address] [place] [address] 72763 MCH (RBC) [Entitic mass] 29.6 pg Normal 26.0-34.0 [facility] Comment on above: Performed By: #### 5 8410-2 ####SARAH Mcknight ([id number])[facility] ([facility])[address] [place] [address] 67570 MCHC (RBC) [Mass/Vol] 33.8 g/dL Normal 32.0-36.0 [facility] Comment on above: Performed By: #### 5 8410-2 ####SARAH Mcknight ([id number])[facility] ([facility])[address] [place] [address] MCV (RBC) [Entitic vol] 88 fL Normal 80-100 [facility] Comment on above: Performed By: #### 5 8410-2 ####SARAH Mcknight ([id number])[facility] ([facility])[address] [place] [address] Nucleated RBC/100 WBC (Bld) [Ratio] 0.0 /100 WBCs Normal 0.0-0.0 [facility] Comment on above: Performed By: #### 5 8410-2 ####SARAH Mcknight ([id number])[facility] ([facility])[address] [place] [address] 70055 Platelets (Bld) [#/Vol] 118 x10*3/uL Low 150-450 [facility] Comment on above: Performed By: #### 5 8410-2 ####SARAH Mcknight ([id number])[facility] ([facility])[address] [place] [address] 67381 RBC (Bld) [#/Vol] 2.40 x10*6/uL Low 4.50-5.90 [facility] Comment on above: Performed By: #### 5 8410-2 ####SARAH Mcknight ([id number])[facility] ([facility])[address] [place] [address] 69129 WBC (Bld) [#/Vol] 8.7 x10*3/uL Normal 4.4-11.3 [facility] Comment on above: Performed By: #### 5 8410-2 ####SARAH Mcknight ([id number])[facility] ([facility])[address] [place] [address] 16322 Calcium, ionizedon Calcium.ionized (Bld) [Moles/Vol] 1.68 mmol/L High 1.1 - 1.33 mmol/L [facility] Calcium.ionizedon 06-16-2023 Calcium.ionized (Bld) [Moles/Vol] 1.68 mmol/L High 1.1-1.33 [facility] Comment on above: Result Comment: The performance characteristics of ionized calcium testedin heparinized plasma or serum have been validated [facility] where [facility].Testing on heparinized plasma or serum is not approved bythe FDA; however, such approval is not necessary. Performed By: #### 1 994-3 ####SARAH Mcknight ([id number])[facility] ([facility])[address] [place] [address] Calcium.ionized (Bld) [Moles /Vol]on 06-16-2023 Interpretation and review of laboratory results Abnormal [facility] ECG 12 LeadOrdered By: Rik Crabtree on 06-16-2023 Atrial Rate 156 BPM [facility] Work Phone: [phone] P [place] 57 degrees [facility] Work Phone: [phone] P Offset 197 [facility] Work Phone: [phone] P Onset 153 [facility] Work Phone: [phone] [place] Interval 140 [facility] Work Phone: [phone] Q Onset 223 [facility] Work Phone: [phone] QRS Count 26 beats [facility] Work Phone: [phone] QRS Duration 78 ms [facility] Work Phone: [phone] QT Interval 234 [facility] Work Phone: [phone] QTC Calculation(Bazett) 377 [facility] Work Phone: [phone] QTC Fredericia 321 [facility] Work Phone: [phone] R [place] -40 degrees [facility] Work Phone: [phone] T [place] 86 degrees [facility] Work Phone: [phone] T Offset 340 [facility] Work Phone: [phone] Ventricular Rate 156 BPM [facility] Work Phone: [phone] [facility] Work Phone: [phone] ECG 12 Leadon 06-16-2023 [facility] Work Phone: Electrocardiogram, 12-lead P RN ACS symptomsOrdered By: Sherrill Shultz on 06-16-2023 Atrial Rate 174 BPM [facility] Work Phone: P [place] 36 degrees [facility] Work Phone: P Offset 209 ms [facility] Work Phone: P Onset 154 ms [facility] Work Phone: [place] Interval 134 ms [facility] Work Phone: Q Onset 221 ms [facility] Work Phone: QRS Count 13 beats [facility] Work Phone: QRS Duration 94 ms [facility] Work Phone: QT Interval 426 ms [facility] Work Phone: QTC Calculation(Bazett) 479 ms [facility] Work Phone: QTC Fredericia 460 ms [facility] Work Phone: R [place] 53 degrees [facility] Work Phone: T [place] 40 degrees [facility] Work Phone: T Offset 434 ms [facility] Work Phone: Ventricular Rate 76 BPM [facility] Work [facility]: [facility] Work Phone: Electrocardiogram, 12-lead P RN ACS symptomson 06-16-2023 [facility] Work Phone: Gas and Carbon monoxide and Electrolytes panel (BldA)on 06-16-2023 Anion gap 4 (BldA) [Moles/Vol] [address] [place] [address] Base excess Calc (Bld) [Moles/Vol] -7.3000 mmol/L Low -2.0 - 3.0 mmol/L [facility] Calcium.ionized (BldA) [Moles/Vol] 1.66 mmol/L High 1.10 - 1.33 mmol/L [facility] Chloride (BldA) [Moles/Vol] 108 mmol/L High 98 - 107 mmol/L [facility] CO2 (Bld) [Partial pressure] 30 mm[Hg] Low [facility] Glucose [Mass/Vol] 73 mg/dL Low 74 - 99 mg/dL [facility] HCO3 (Bld) [Moles/Vol] 17.3 mmol/L Low 22.0 - 26.0 mmol/L [facility] Hematocrit Est (Bld) [Volume fraction] 20.0 % Low 41.0 - 52.0 % [facility] Hemoglobin (Bld) [Mass/Vol] 6.7 g/dL Low 13.5 - 17.5 g/dL [facility] Inhaled oxygen concentration 21 % [facility] Interpretation and review of laboratory results Abnormal [facility] Lactate (BldA) [Moles/Vol] 0.3 mmol/L Low 0.4 - 2.0 mmol/L [facility] Oxygen (Bld) [Partial pressure] 105 mm[Hg] High [facility] Oxyhemoglobin (BldA) [Mass fraction] 97.1 % 94.0 - 98.0 % [facility] pH (Bld) 7.37 [pH] Low 7.38 - 7.42 pH [facility] Potassium (BldA) [Moles/Vol] 3.8 mmol/L 3.5 - 5.3 mmol/L [facility] Sodium (BldA) [Moles/Vol] 131 mmol/L Low 136 - 145 mmol/L [facility] Anion gap 4 (BldA) [Moles/Vol] 10 mmo/L Normal 10-25 [facility] Comment on above: Performed By: #### 9 3685-6 ####SARAH Mcknight ([id number])[facility] ([facility])[address] [place] [address] Base excess Calc (Bld) [Moles/Vol] -7.3000 mmol/L Low -2.0-3.0 [facility] Comment on above: Performed By: #### 9 3685-6 ####SARAH Mcknight ([id number])[facility] ([facility])[address] [place] [address] Calcium.ionized (BldA) [Moles/Vol] 1.66 mmol/L High 1.10-1.33 [facility] Comment on above: Performed By: #### 9 3685-6 ####SARAH OMER L ([id number])[facility] ([facility])[address] [place] [address] 32488 Chloride (BldA) [Moles/Vol] 108 mmol/L High 98-107 [facility] Comment on above: Performed By: #### 9 3685-6 ####SARAH OMER L ([id number])[facility] ([facility])[address] [place] [address] 49945 CO2 (Bld) [Partial pressure] 30 mm Hg Low 38-42 [facility] Comment on above: Performed By: #### 9 3685-6 ####SARAH OMER L ([id number])[facility] ([facility])[address] [place] [address] 80602 Glucose [Mass/Vol] 73 mg/dL Low 74-99 [facility] Comment on above: Performed By: #### 9 3685-6 ####SARAH OMER L ([id number])[facility] ([facility])[address] [place] [address] 96541 HCO3 (Bld) [Moles/Vol] 17.3 mmol/L Low 22.0-26.0 [facility] Comment on above: Performed By: #### 9 3685-6 ####SARAH OMER L ([id number])[facility] ([facility])[address] [place] [address] 76582 Hematocrit Est (Bld) [Volume fraction] 20.0 % Low 41.0-52.0 [facility] Comment on above: Performed By: #### 9 3685-6 ####SARAH OMER L ([id number])[facility] ([facility])[address] [place] [address] Hemoglobin (Bld) [Mass/Vol] 6.7 g/dL Low 13.5-17.5 [facility] Comment on above: Performed By: #### 9 3685-6 ####SARHA Mcknight (05186)[facility] ([facility])[address] [place] [address] Inhaled oxygen concentration 21 % Normal [facility] Comment on above: Performed By: #### 9 5985-6 ####SARAH Mcknight ([id number])[facility] ([facility])[address] [place] [address] 59458 Lactate (BldA) [Moles/Vol] 0.3 mmol/L Low 0.4-2.0 [facility] Comment on above: Performed By: #### 9 3685-6 ####SARAH Mcknight ([id number])[facility] ([facility])[address] [place] [address] 05926 Oxygen (Bld) [Partial pressure] 105 mm Hg High 85-95 [facility] Comment on above: Performed By: #### 9 6575-6 ####SARAH Mcknight ([id number])[facility] ([facility])[address] [place] [address] 20707 Oxyhemoglobin (BldA) [Mass fraction] 97.1 % Normal 94.0-98.0 [facility] Comment on above: Performed By: #### 9 4095-6 ####SARAH Mcknight ([id number])[facility] ([facility])[address] [place] [address] 98122 pH (Bld) 7.37 [pH] Low 7.38-7.42 [facility] Comment on above: Performed By: #### 9 1925-6 ####SARAH Mcknight ([id number])[facility] ([facility])[address] [place] [address] 10982 Potassium (BldA) [Moles/Vol] 3.8 mmol/L Normal 3.5-5.3 [facility] Comment on above: Performed By: #### 9 3685-6 ####SARAH Mcknight (87423)[facility] ([facility])[address] [place] [address] Sodium (BldA) [Moles/Vol] 131 mmol/L Low 136-145 [facility] Comment on above: Performed By: #### 9 3685-6 ####SARAH Mcknight ([id number])[facility] ([facility])[address] [place] [address] Anion gap 4 (BldA) [Moles/Vol] 9 Low [facility] Base excess Calc (Bld) [Moles/Vol] -5.1000 mmol/L Low -2.0 - 3.0 mmol/L [facility] Calcium.ionized (BldA) [Moles/Vol] 1.74 mmol/L High 1.10 - 1.33 mmol/L [facility] Chloride (BldA) [Moles/Vol] 105 mmol/L 98 - 107 mmol/L [facility] CO2 (Bld) [Partial pressure] 33 mm[Hg] Low [facility] Glucose [Mass/Vol] 89 mg/dL 74 - 99 mg/dL [facility] HCO3 (Bld) [Moles/Vol] 19.5 mmol/L Low 22.0 - 26.0 mmol/L [facility] Hematocrit Est (Bld) [Volume fraction] 22.0 % Low 41.0 - 52.0 % [facility] Hemoglobin (Bld) [Mass/Vol] 7.3 g/dL Low 13.5 - 17.5 g/dL [facility] Inhaled oxygen concentration 21 % [facility] Interpretation and review of laboratory results Abnormal [facility] Lactate (BldA) [Moles/Vol] 0.4 mmol/L 0.4 - 2.0 mmol/L [facility] Oxygen (Bld) [Partial pressure] 87 mm[Hg] [facility] Oxyhemoglobin (BldA) [Mass fraction] 95.7 % 94.0 - 98.0 % [facility] pH (Bld) 7.38 [pH] 7.38 - 7.42 pH [facility] Potassium (BldA) [Moles/Vol] 4.1 mmol/L 3.5 - 5.3 mmol/L [facility] Sodium (BldA) [Moles/Vol] 129 mmol/L Low 136 - 145 mmol/L [facility] Anion gap 4 (BldA) [Moles/Vol] 9 mmo/L Low 10-25 [facility] Comment on above: Performed By: #### 9 3685-6 ####SARAH Mcknight ([id number])[facility] ([facility])[address] [place] [address] 51374 Base excess Calc (Bld) [Moles/Vol] -5.1000 mmol/L Low -2.0-3.0 [facility] Comment on above: Performed By: #### 9 3685-6 ####SARAH Mcknight (69605)[facility] ([facility])[address] [place] [address] 42388 Calcium.ionized (BldA) [Moles/Vol] 1.74 mmol/L High 1.10-1.33 [facility] Comment on above: Performed By: #### 9 3685-6 ####SARAH Mcknight (11446)[facility] ([facility])[address] [place] [address] 63458 Chloride (BldA) [Moles/Vol] 105 mmol/L Normal 98-107 [facility] Comment on above: Performed By: #### 9 3685-6 ####SARAH Mcknight ([id number])[facility] ([facility])[address] [place] [address] 92966 CO2 (Bld) [Partial pressure] 33 mm Hg Low 38-42 [facility] Comment on above: Performed By: #### 9 3685-6 ####SARAH Mcknight (68994)[facility] ([facility])[address] [place] [address] 31617 Glucose [Mass/Vol] 89 mg/dL Normal 74-99 [facility] Comment on above: Performed By: #### 9 3685-6 ####SARAH Mcknight (54281)[facility] ([facility])[address] [place] [address] HCO3 (Bld) [Moles/Vol] 19.5 mmol/L Low 22.0-26.0 [facility] Comment on above: Performed By: #### 9 3685-6 ####SARAH OMER L (55319)[facility] ([facility])[address] [place] [address] 64938 Hematocrit Est (Bld) [Volume fraction] 22.0 % Low 41.0-52.0 [facility] Comment on above: Performed By: #### 9 3685-6 ####SARAH OMER L (79734)[facility] ([facility])[address] [place] [address] 77267 Hemoglobin (Bld) [Mass/Vol] 7.3 g/dL Low 13.5-17.5 [facility] Comment on above: Performed By: #### 9 3685-6 ####SARAH OMER L (65083)[facility] ([facility])[address] [place] [address] 12946 Inhaled oxygen concentration 21 % Normal [facility] Comment on above: Performed By: #### 9 3685-6 ####SARAH OMER L (05262)[facility] ([facility])[address] [place] [address] 38934 Lactate (BldA) [Moles/Vol] 0.4 mmol/L Normal 0.4-2.0 [facility] Comment on above: Performed By: #### 9 3685-6 ####SARAH OMER L (89920)[facility] ([facility])[address] [place] [address] Oxygen (Bld) [Partial pressure] 87 mm Hg Normal 85-95 [facility] Comment on above: Performed By: #### 9 3685-6 ####SARAH OMER L ([id number])[facility] ([facility])[address] [place] [address] 09516 Oxyhemoglobin (BldA) [Mass fraction] 95.7 % Normal 94.0-98.0 [facility] Comment on above: Performed By: #### 9 3685-6 ####SARAH Mcknight ([id number])[facility] ([facility])[address] [place] [address] 22858 pH (Bld) 7.38 [pH] Normal 7.38-7.42 [facility] Comment on above: Performed By: #### 9 3685-6 ####SARAH Mcknight ([id number])[facility] ([facility])[address] [place] [address] 68708 Potassium (BldA) [Moles/Vol] 4.1 mmol/L Normal 3.5-5.3 [facility] Comment on above: Performed By: #### 9 3685-6 ####SARAH Mcknight (22679)[facility] ([facility])[address] [place] [address] 93679 Sodium (BldA) [Moles/Vol] 129 mmol/L Low 136-145 [facility] Comment on above: Performed By: #### 9 3685-6 ####SARAH Mcknight ([id number])[facility] ([facility])[address] [place] [address] 62853 Glucose Test strip manual (B ld) [Mass/Vol]on 06-16-2023 Glucose [Mass/Vol] 79 mg/dL 74 - 99 mg/dL [facility] Interpretation and review of laboratory results Normal [facility] Glucose [Mass/Vol] 79 mg/dL Normal 74-99 [facility] Comment on above: Performed By: #### 2 341-6 ####SARAH Mcknight (83361)[facility] ([facility])[address] [place] [address] 79226 Glucose [Mass/Vol] 82 mg/dL 74 - 99 mg/dL [facility] Interpretation and review of laboratory results Normal [facility] Glucose [Mass/Vol] 82 mg/dL Normal 74-99 [facility] Comment on above: Performed By: #### 2 341-6 ####SARAH Mcknight ([id number])[facility] ([facility])[address] [place] [address] 59438 Glucose [Mass/Vol] 89 mg/dL 74 - 99 mg/dL [facility] Interpretation and review of laboratory results Normal [facility] Glucose [Mass/Vol] 89 mg/dL Normal 74-99 [facility] Comment on above: Performed By: #### 2 341-6 ####SARAH Mcknight ([id number])[facility] ([facility])[address] [place] [address] 41311 Glucose [Mass/Vol] 78 mg/dL 74 - 99 mg/dL [facility] Interpretation and review of laboratory results Normal [facility] Glucose [Mass/Vol] 78 mg/dL Normal 74-99 [facility] Comment on above: Performed By: #### 2 341-6 ####SARAH Mcknight ([id number])[facility] ([facility])[address] [place] [address] 37598 Glucose [Mass/Vol] 86 mg/dL 74 - 99 mg/dL [facility] Interpretation and review of laboratory results Normal [facility] Glucose [Mass/Vol] 86 mg/dL Normal 74-99 [facility] Comment on above: Performed By: #### 2 341-6 ####SARAH Mcknight ([id number])[facility] ([facility])[address] [place] [address] 69237 Magnesiumon 06-16-2023 Magnesium [Mass/Vol] 1.94 mg/dL 1.60 - 2.40 mg/dL [facility] Magnesium [Mass/Vol] 1.94 mg/dL Normal 1.60-2.40 [facility] Comment on above: Performed By: #### 1 9123-9 ####SARAH Mcknight ([id number])[facility] ([facility])[address] [place] [address] 87525 Magnesium [Mass/Vol]on 06-15 Interpretation and review of laboratory results Normal [facility] No Panel Informationon 06-15 Blood Expiration Date July 08, 2023 23:59 EDT [facility] Dispense Status RE [facility] PRODUCT BLOOD TYPE 6200 [facility] PRODUCT CODE [id number] [facility] Unit ABO A [facility] Unit RH Positive [facility] UNIT VOLUME 350 [facility] XM INTEP COMP [facility] Prepare RBC: 4 Unitson 06-15 Blood Expiration Date July 06, 2023 23:59 EDT [facility] Unit Number [id number] [facility] Unit Number [id number] [facility] Unit Number [id number] [facility] Unit Number [id number] [facility] Renal function 2000 panelon 06-16-2023 Albumin BCP dye [Mass/Vol] 2.1 g/dL Low 3.4 - 5.0 g/dL [facility] Anion gap [Moles/Vol] 8 mmol/L Low 10 - 2 0 mmol/L [facility] Calcium [Mass/Vol] 10.1 mg/dL 8.6 - 10. 6 mg/dL [facility] Chloride [Moles/Vol] 106 mmol/L 98 - 10 7 mmol/L [facility] CO2 [Moles/Vol] 23 mmol/L 21 - 32 mmol/L [facility] Creatinine [Mass/Vol] 0.58 mg/dL 0.50 - 1.30 mg/dL [facility] eGFR - PINF [facility] Glucose [Mass/Vol] 77 mg/dL 74 - 99 mg/dL [facility] Interpretation and review of laboratory results Abnormal [facility] Phosphate [Mass/Vol] 2.3 mg/dL Low 2.5 - 4 .9 mg/dL [facility] Potassium [Moles/Vol] 4.0 mmol/L 3.5 - 5.3 mmol/L [facility] Sodium [Moles/Vol] 133 mmol/L Low 136 - 145 mmol/L [facility] Urea nitrogen [Mass/Vol] 22 mg/dL 6 - 23 mg/dL [facility] Albumin BCP dye [Mass/Vol] 2.1 g/dL Low 3.4-5.0 [facility] Comment on above: Performed By: #### 2 4362-6 ####SARAH Mcknight ([id number])[facility] ([facility])[address] [place] [address] Anion gap [Moles/Vol] 8 mmol/L Low 10-20 [facility] Comment on above: Performed By: #### 2 4362-6 ####SARAH Mcknight ([id number])[facility] ([facility])[address] [place] [address] 52285 Calcium [Mass/Vol] 10.1 mg/dL Normal 8.6-10.6 [facility] Comment on above: Performed By: #### 2 4362-6 ####SARAH Mcknight (56259)[facility] ([facility])[address] [place] [address] Chloride [Moles/Vol] 106 mmol/L Normal 98-107 [facility] Comment on above: Performed By: #### 2 4362-6 ####SARAH Mcknight ([id number])[facility] ([facility])[address] [place] [address] CO2 [Moles/Vol] 23 mmol/L Normal 21-32 [facility] Comment on above: Performed By: #### 2 4362-6 ####SARAH Mcknight (57039)[facility] ([facility])[address] [place] [address] Creatinine [Mass/Vol] 0.58 mg/dL Normal 0.50-1.30 [facility] Comment on above: Performed By: #### 2 4362-6 ####SAARH Mcknight ([id number])[facility] ([facility])[address] [place] [address] GFR/1.73 sq M.predicted MDRD (S/P/Bld) [Vol rate/Area] mL/min/{1.73_m2} Normal >60 [facility] Comment on above: Result Comment: Calc ulations of estimated GFR are performed using the 2020 CKD-EPI Study Refit equation without the race variable for the IDMS-Traceable creatinine methods.https://jasn.asnjournals.org/content//A SN.3470990611 Performed By: #### 2 4362-6 ####SARAH Mcknight ([id number])[facility] ([facility])[address] [place] [address] Glucose [Mass/Vol] 77 mg/dL Normal 74-99 [facility] Comment on above: Performed By: #### 2 4362-6 ####SARAH Mcknight ([id number])[facility] ([facility])[address] [place] [address] Phosphate [Mass/Vol] 2.3 mg/dL Low 2.5-4.9 [facility] Comment on above: Result Comment: The performance characteristics of phosphorus testing in heparinized plasma have been validated by the individual laboratory site where testing is performed. Testing on heparinized plasma is not approved by the FDA; however, such approval is not necessary. Performed By: #### 2 4362-6 ####SARAH Mcknight ([id number])[facility] ([facility])[address] [place] [address] Potassium [Moles/Vol] 4.0 mmol/L Normal 3.5-5.3 [facility] Comment on above: Performed By: #### 2 4362-6 ####SARAH Mcknight ([id number])[facility] ([facility])[address] [place] [address] Sodium [Moles/Vol] 133 mmol/L Low 136-145 [facility] Comment on above: Performed By: #### 2 4362-6 ####SARAH Mcknight ([id number])[facility] ([facility])[address] [place] [address] Urea nitrogen [Mass/Vol] 22 mg/dL Normal 6-23 [facility] Comment on above: Performed By: #### 2 4362-6 ####SARAH Mcknight ([id number])[facility] ([facility])[address] [place] [address] Tacrolimuson 06-16-2023 Tacrolimus (Bld) [Mass/Vol] 4.4 ng/mL Normal <=15.0 [facility] Comment on above: Order Comment: Rickey peres obtain at 830AM prior to morning tacrolimus dosingNOTE: Result was obtained using achemiluminescent microparticle immunoassay(CMIA) on the [employer] i system.Optimal therapeutic ranges for immunosuppressantdrugs depend upon an individualpatient's current clinical state, type oforgan transplant, time post-transplant,co-administration of other immunosuppressants,and other clinical factors. The results ofthis test should be correlated with additionalclinical and laboratory data before changesin treatment regimens are made. Performed By: #### 1 1253-2 ####SARAH Mcknight ([id number])[facility] ([facility])[address] [place] [address] Tacrolimus (Bld) [Mass/Vol]O rdered By: Zachary Cruz on 06-16-2023 Interpretation and review of laboratory results Normal [facility] Tacrolimus levelOrdered By: Zachary Cruz on 06-16-2023 Tacrolimus (Bld) [Mass/Vol] 4.4 ng/mL NINF - 15.0 ng/mL [facility] APTTon 06-15-2023 aPTT Coag (PPP) [Time] 31 s Un [facility] C Urineon 06-15-2023 Bacteria identified Cx Nom (U) Normal [facility] Comment on above: Performed By: #### 2 [id number], [id number] ####[facility] [address] [place] [address] CBC panel Auto (Bld)on 04-02 -2024 Erythrocyte distribution width (RBC) [Ratio] 15.5 % High 11.5 - 14.5 % [facility] Hematocrit (Bld) [Volume fraction] 21.8 % Low 41.0 - 52.0 % [facility] Hemoglobin (Bld) [Mass/Vol] 7.3 g/dL Low 13.5 - 17.5 g/dL [facility] Interpretation and review of laboratory results Abnormal [facility] MCH (RBC) [Entitic mass] 29.6 pg 26.0 - 34.0 pg [facility] MCHC (RBC) [Mass/Vol] 33.5 g/dL 32.0 - 36.0 g/dL [facility] MCV (RBC) [Entitic vol] 88 fL 80 - 100 fL [facility] Nucleated RBC/100 WBC (Bld) [Ratio] 0.0 % [facility] Platelets (Bld) [#/Vol] 116 10*3/uL Low [facility] RBC (Bld) [#/Vol] 2.47 10*6/uL Low [facility] WBC (Bld) [#/Vol] 9.9 10*3/uL [facility] Erythrocyte distribution width (RBC) [Ratio] 15.5 % High 11.5-14.5 [facility] Comment on above: Performed By: #### 5 8410-2 ####SARAH Mcknight ([id number])[facility] ([facility])[address] [place] [address] Hematocrit (Bld) [Volume fraction] 21.8 % Low 41.0-52.0 [facility] Comment on above: Performed By: #### 5 8410-2 ####SARAH Mcknight ([id number])[facility] ([facility])[address] [place] [address] Hemoglobin (Bld) [Mass/Vol] 7.3 g/dL Low 13.5-17.5 [facility] Comment on above: Performed By: #### 5 8410-2 ####SARAH Mcknight ([id number])[facility] ([facility])[address] [place] [address] MCH (RBC) [Entitic mass] 29.6 pg Normal 26.0-34.0 [facility] Comment on above: Performed By: #### 5 8410-2 ####SARAH Mcknight ([id number])[facility] ([facility])[address] [place] [address] MCHC (RBC) [Mass/Vol] 33.5 g/dL Normal 32.0-36.0 [facility] Comment on above: Performed By: #### 5 8410-2 ####SARAH Mcknight ([id number])[facility] ([facility])[address] [place] [address] MCV (RBC) [Entitic vol] 88 fL Normal 80-100 [facility] Comment on above: Performed By: #### 5 8410-2 ####SARAH Mcknight ([id number])[facility] ([facility])[address] [place] [address] Nucleated RBC/100 WBC (Bld) [Ratio] 0.0 /100 WBCs Normal 0.0-0.0 [facility] Comment on above: Performed By: #### 5 8410-2 ####SARAH Mcknight ([id number])[facility] ([facility])[address] [place] [address] Platelets (Bld) [#/Vol] 116 x10*3/uL Low 150-450 [facility] Comment on above: Performed By: #### 5 8410-2 ####SARAH Mcknight ([id number])[facility] ([facility])[address] [place] [address] RBC (Bld) [#/Vol] 2.47 x10*6/uL Low 4.50-5.90 [facility] Comment on above: Performed By: #### 5 8410-2 ####SARAH Mcknight ([id number])[facility] ([facility])[address] [place] [address] WBC (Bld) [#/Vol] 9.9 x10*3/uL Normal 4.4-11.3 [facility] Comment on above: Performed By: #### 5 8410-2 ####SARAH Mcknight (85024)[facility] ([facility])[address] [place] [address] Erythrocyte distribution width (RBC) [Ratio] 15.3 % High 11.5 - 14.5 % [facility] Hematocrit (Bld) [Volume fraction] 24.0 % Low 41.0 - 52.0 % [facility] Hemoglobin (Bld) [Mass/Vol] 7.8 g/dL Low 13.5 - 17.5 g/dL [facility] Interpretation and review of laboratory results Abnormal [facility] MCH (RBC) [Entitic mass] 29.5 pg 26.0 - 34.0 pg [facility] MCHC (RBC) [Mass/Vol] 32.5 g/dL 32.0 - 36.0 g/dL [facility] MCV (RBC) [Entitic vol] 91 fL 80 - 100 fL [facility] Nucleated RBC/100 WBC (Bld) [Ratio] 0.0 % [facility] Platelets (Bld) [#/Vol] 117 10*3/uL Low [facility] RBC (Bld) [#/Vol] 2.64 10*6/uL Low [facility] WBC (Bld) [#/Vol] 9.2 10*3/uL [facility] Erythrocyte distribution width (RBC) [Ratio] 15.3 % High 11.5-14.5 [facility] Comment on above: Performed By: #### 5 8410-2 ####SARAH Mcknight ([id number])[facility] ([facility])[address] [place] [address] Hematocrit (Bld) [Volume fraction] 24.0 % Low 41.0-52.0 [facility] Comment on above: Performed By: #### 5 8410-2 ####SARAH Mcknight ([id number])[facility] ([facility])[address] [place] [address] Hemoglobin (Bld) [Mass/Vol] 7.8 g/dL Low 13.5-17.5 [facility] Comment on above: Performed By: #### 5 8410-2 ####SARAH Mcknight ([id number])[facility] ([facility])[address] [place] [address] MCH (RBC) [Entitic mass] 29.5 pg Normal 26.0-34.0 [facility] Comment on above: Performed By: #### 5 8410-2 ####SARAH Mcknight ([id number])[facility] ([facility])[address] [place] [address] MCHC (RBC) [Mass/Vol] 32.5 g/dL Normal 32.0-36.0 [facility] Comment on above: Performed By: #### 5 8410-2 ####SARAH Mcknight ([id number])[facility] ([facility])[address] [place] [address] MCV (RBC) [Entitic vol] 91 fL Normal 80-100 [facility] Comment on above: Performed By: #### 5 8410-2 ####SARAH Mcknight ([id number])[facility] ([facility])[address] [place] [address] Nucleated RBC/100 WBC (Bld) [Ratio] 0.0 /100 WBCs Normal 0.0-0.0 [facility] Comment on above: Performed By: #### 5 8410-2 ####SARAH Mcknight ([id number])[facility] ([facility])[address] [place] [address] Platelets (Bld) [#/Vol] 117 x10*3/uL Low 150-450 [facility] Comment on above: Performed By: #### 5 8410-2 ####SARAH Mcknight ([id number])[facility] ([facility])[address] [place] [address] RBC (Bld) [#/Vol] 2.64 x10*6/uL Low 4.50-5.90 [facility] Comment on above: Performed By: #### 5 8410-2 ####SARAH Mcknight ([id number])[facility] ([facility])[address] [place] [address] WBC (Bld) [#/Vol] 9.2 x10*3/uL Normal 4.4-11.3 [facility] Comment on above: Performed By: #### 5 8410-2 ####SARAH Mcknight ([id number])[facility] ([facility])[address] [place] [address] Erythrocyte distribution width (RBC) [Ratio] 15.2 % High 11.5 - 14.5 % [facility] Hematocrit (Bld) [Volume fraction] 27.2 % Low 41.0 - 52.0 % [facility] Hemoglobin (Bld) [Mass/Vol] 8.4 g/dL Low 13.5 - 17.5 g/dL [facility] Interpretation and review of laboratory results Abnormal [facility] MCH (RBC) [Entitic mass] 28.3 pg 26.0 - 34.0 pg [facility] MCHC (RBC) [Mass/Vol] 30.9 g/dL Low 32.0 - 36.0 g/dL [facility] MCV (RBC) [Entitic vol] 92 fL 80 - 100 fL [facility] Nucleated RBC/100 WBC (Bld) [Ratio] 0.0 % [facility] Platelets (Bld) [#/Vol] 123 10*3/uL Low [facility] RBC (Bld) [#/Vol] 2.97 10*6/uL Low [facility] WBC (Bld) [#/Vol] 13.6 10*3/uL High [facility] Erythrocyte distribution width (RBC) [Ratio] 15.2 % High 11.5-14.5 [facility] Comment on above: Performed By: #### 5 8410-2 ####SARAH Mcknight ([id number])[facility] ([facility])[address] [place] [address] Hematocrit (Bld) [Volume fraction] 27.2 % Low 41.0-52.0 [facility] Comment on above: Performed By: #### 5 8410-2 ####SARAH Mcknight ([id number])[facility] ([facility])[address] [place] [address] Hemoglobin (Bld) [Mass/Vol] 8.4 g/dL Low 13.5-17.5 [facility] Comment on above: Performed By: #### 5 8410-2 ####SARAH Mcknight ([id number])[facility] ([facility])[address] [place] [address] MCH (RBC) [Entitic mass] 28.3 pg Normal 26.0-34.0 [facility] Comment on above: Performed By: #### 5 8410-2 ####SARAH Mcknight ([id number])[facility] ([facility])[address] [place] [address] MCHC (RBC) [Mass/Vol] 30.9 g/dL Low 32.0-36.0 [facility] Comment on above: Performed By: #### 5 8410-2 ####SARAH Mcknight ([id number])[facility] ([facility])[address] [place] [address] MCV (RBC) [Entitic vol] 92 fL Normal 80-100 [facility] Comment on above: Performed By: #### 5 8410-2 ####SARAH Mcknight ([id number])[facility] ([facility])[address] [place] [address] Nucleated RBC/100 WBC (Bld) [Ratio] 0.0 /100 WBCs Normal 0.0-0.0 [facility] Comment on above: Performed By: #### 5 8410-2 ####SARAH Mcknight ([id number])[facility] ([facility])[address] [place] [address] Platelets (Bld) [#/Vol] 123 x10*3/uL Low 150-450 [facility] Comment on above: Performed By: #### 5 8410-2 ####SARAH Mcknight ([id number])[facility] ([facility])[address] [place] [address] RBC (Bld) [#/Vol] 2.97 x10*6/uL Low 4.50-5.90 [facility] Comment on above: Performed By: #### 5 8410-2 ####SARAH Mcknight ([id number])[facility] ([facility])[address] [place] [address] WBC (Bld) [#/Vol] 13.6 x10*3/uL High 4.4-11.3 [facility] Comment on above: Performed By: #### 5 8410-2 ####SARAH Mcknight ([id number])[facility] ([facility])[address] [place] [address] Calcium, ionizedon 4 Calcium.ionized (Bld) [Moles/Vol] 1.58 mmol/L High 1.1 - 1.33 mmol/L [facility] Calcium.ionized (Bld) [Moles/Vol] 1.67 mmol/L High 1.1 - 1.33 mmol/L [facility] Calcium.ionizedon 06-15-2023 Calcium.ionized (Bld) [Moles/Vol] 1.58 mmol/L High 1.1-1.33 [facility] Comment on above: Result Comment: The performance characteristics of ionized calcium testedin heparinized plasma or serum have [facility].Testing on heparinized plasma or serum is not approved bythe [facility]; however, such approval is not necessary. Performed By: #### 1 994-3 ####SARAH Mcknight ([id number])[facility] ([facility])[address] [place] [address] Calcium.ionized (Bld) [Moles/Vol] 1.67 mmol/L High 1.1-1.33 [facility] Comment on above: Result Comment: The performance characteristics of ionized calcium testedin heparinized plasma or serum have been [facility] where [facility] is performed.Testing on heparinized plasma or serum is not approved bythe FDA; however, such approval is not necessary. Performed By: #### 1 994-3 ####SARAH Mcknight ([id number])[facility] ([facility])[address] [place] [address] Calcium.ionized (Bld) [Moles /Vol]on 06-15-2023 Interpretation and review of laboratory results Abnormal [facility] Interpretation and review of laboratory results Abnormal [facility] Coagulation surface inducedo n 06-15-2023 aPTT Coag (PPP) [Time] 31 s Normal 27-38 [facility] Comment on above: Order Comment: The A PTT is no longer used for monitoring Unfractionated Heparin Therapy. For monitoring Heparin Therapy, use the Heparin Assay. Performed By: #### 1 4979-9 ####SARAH Mcknight ([id number])[facility] ([facility])[address] [place] [address] Coagulation tissue factor in ducedon 06-15-2023 PT Coag (PPP) [Time] 19.6 s High 9.8-12.8 [facility] Comment on above: Performed By: #### 5 902-2 ####SARAH Mcknight ([id number])[facility] ([facility])[address] [place] [address] ECG 12-LEADon 06-15-2023 ECG 12-LEAD Ventricular Rate 76 Atrial Rate 174 P-R Interval 134 QRS Duration 94 Q-T Interval 426 QTC Calculation(Bazett) 479 P [place] 36 R [place] 53 T [place] 40 QRS Count 13 Q Onset 221 P Onset 154 P Offset 209 T Offset 434 QTC Fredericia 460 Diagnosis Sinus rhythm with PAC's Otherwise normal ECG When compared with ECG of 15-JUN-2023 21:11, Premature ventricular complexes are no longer Present QT has lengthened Confirmed by Sherrill Shultz ([id number]) on 06/16/2023 8:47:25 PM Normal [facility] Gas and Carbon monoxide and Electrolytes panel (BldA)on 06-15-2023 Anion gap 4 (BldA) [Moles/Vol] [facility] Base excess Calc (Bld) [Moles/Vol] -4.6000 mmol/L Low -2.0 - 3.0 mmol/L [facility] Calcium.ionized (BldA) [Moles/Vol] 1.58 mmol/L High 1.10 - 1.33 mmol/L [facility] Chloride (BldA) [Moles/Vol] [facility] CO2 (Bld) [Partial pressure] 33 mm[Hg] Low [facility] Glucose [Mass/Vol] 101 mg/dL High 74 - 99 mg/dL [facility] HCO3 (Bld) [Moles/Vol] 20.0 mmol/L Low 22.0 - 26.0 mmol/L [facility] Hematocrit Est (Bld) [Volume fraction] 16.0 % Low 41.0 - 52.0 % [facility] Hemoglobin (Bld) [Mass/Vol] 5.4 g/dL Critically low 13.5 - 17.5 g/dL [facility] Inhaled oxygen concentration 21 % [facility] Interpretation and review of laboratory results Abnormal [facility] Lactate (BldA) [Moles/Vol] 0.9 mmol/L 0.4 - 2.0 mmol/L [facility] Oxygen (Bld) [Partial pressure] 100 mm[Hg] High [facility] Oxyhemoglobin (BldA) [Mass fraction] 95.4 % 94.0 - 98.0 % [facility] pH (Bld) 7.39 [pH] 7.38 - 7.42 pH [facility] Potassium (BldA) [Moles/Vol] 3.8 mmol/L 3.5 - 5.3 mmol/L [facility] Sodium (BldA) [Moles/Vol] 130 mmol/L Low 136 - 145 mmol/L [facility] Anion gap 4 (BldA) [Moles/Vol] Normal [facility] Comment on above: Result Comment: NO R ESULT Performed By: #### 9 3685-6 ####SARAH Mcknight ([id number])[facility] ([facility])[address] [place] [address] Base excess Calc (Bld) [Moles/Vol] -4.6000 mmol/L Low -2.0-3.0 [facility] Comment on above: Performed By: #### 9 3685-6 ####SARAH Mcknight ([id number])[facility] ([facility])[address] [place] [address] Calcium.ionized (BldA) [Moles/Vol] 1.58 mmol/L High 1.10-1.33 [facility] Comment on above: Performed By: #### 9 3685-6 ####SARAH Mcknight (10603)[facility] ([facility])[address] [place] [address] Chloride (BldA) [Moles/Vol] Normal [facility] Comment on above: Result Comment: NO R ESULT Performed By: #### 9 3685-6 ####SARAH Mcknight ([id number])[facility] ([facility])[address] [place] [address] CO2 (Bld) [Partial pressure] 33 mm Hg Low 38-42 [facility] Comment on above: Performed By: #### 9 3685-6 ####SARAH Mcknight ([id number])[facility] ([facility])[address] [place] [address] Glucose [Mass/Vol] 101 mg/dL High 74-99 [facility] Comment on above: Performed By: #### 9 3685-6 ####SARAH Mcknight ([id number])[facility] ([facility])[address] [place] [address] HCO3 (Bld) [Moles/Vol] 20.0 mmol/L Low 22.0-26.0 [facility] Comment on above: Performed By: #### 9 3685-6 ####SARAH Mcknight ([id number])[facility] ([facility])[address] [place] [address] Hematocrit Est (Bld) [Volume fraction] 16.0 % Low 41.0-52.0 [facility] Comment on above: Performed By: #### 9 3685-6 ####SARAH Mcknight ([id number])[facility] ([facility])[address] [place] [address] Hemoglobin (Bld) [Mass/Vol] 5.4 g/dL Critically low 13.5-17.5 [facility] Comment on above: Performed By: #### 9 3685-6 ####SARAH Mcknight ([id number])[facility] ([facility])[address] [place] [address] Inhaled oxygen concentration 21 % Normal [facility] Comment on above: Performed By: #### 9 3685-6 ####SARAH Mcknight ([id number])[facility] ([facility])[address] [place] [address] Lactate (BldA) [Moles/Vol] 0.9 mmol/L Normal 0.4-2.0 [facility] Comment on above: Performed By: #### 9 6775-6 ####SARAH Mcknight ([id number])[facility] ([facility])[address] [place] [address] Oxygen (Bld) [Partial pressure] 100 mm Hg High 85-95 [facility] Comment on above: Performed By: #### 9 3685-6 ####SARAH Mcknight ([id number])[facility] ([facility])[address] [place] [address] Oxyhemoglobin (BldA) [Mass fraction] 95.4 % Normal 94.0-98.0 [facility] Comment on above: Performed By: #### 9 6365-6 ####SARAH Mcknight ([id number])[facility] ([facility])[address] [place] [address] pH (Bld) 7.39 [pH] Normal 7.38-7.42 [facility] Comment on above: Performed By: #### 9 3685-6 ####SARAH Mcknight ([id number])[facility] ([facility])[address] [place] [address] Potassium (BldA) [Moles/Vol] 3.8 mmol/L Normal 3.5-5.3 [facility] Comment on above: Performed By: #### 9 3685-6 ####SARAH Mcknight (76242)[facility] ([facility])[address] [place] [address] Sodium (BldA) [Moles/Vol] 130 mmol/L Low 136-145 [facility] Comment on above: Performed By: #### 9 3685-6 ####SARAH Mcknight ([id number])[facility] ([facility])[address] [place] [address] Anion gap 4 (BldA) [Moles/Vol] 11 [facility] Base excess Calc (Bld) [Moles/Vol] -7.2000 mmol/L Low -2.0 - 3.0 mmol/L [facility] Calcium.ionized (BldA) [Moles/Vol] 1.66 mmol/L High 1.10 - 1.33 mmol/L [facility] Chloride (BldA) [Moles/Vol] 106 mmol/L 98 - 107 mmol/L [facility] CO2 (Bld) [Partial pressure] 32 mm[Hg] Low [facility] Glucose [Mass/Vol] 149 mg/dL High 74 - 99 mg/dL [facility] HCO3 (Bld) [Moles/Vol] 17.7 mmol/L Low 22.0 - 26.0 mmol/L [facility] Hematocrit Est (Bld) [Volume fraction] 24.0 % Low 41.0 - 52.0 % [facility] Hemoglobin (Bld) [Mass/Vol] 7.9 g/dL Low 13.5 - 17.5 g/dL [facility] Inhaled oxygen concentration 0 % [facility] Interpretation and review of laboratory results Abnormal [facility] Lactate (BldA) [Moles/Vol] 1.0 mmol/L 0.4 - 2.0 mmol/L [facility] Oxygen (Bld) [Partial pressure] 78 mm[Hg] Low [facility] Oxyhemoglobin (BldA) [Mass fraction] 95.3 % 94.0 - 98.0 % [facility] pH (Bld) 7.35 [pH] Low 7.38 - 7.42 pH [facility] Potassium (BldA) [Moles/Vol] 4.2 mmol/L 3.5 - 5.3 mmol/L [facility] Sodium (BldA) [Moles/Vol] 130 mmol/L Low 136 - 145 mmol/L [facility] Anion gap 4 (BldA) [Moles/Vol] 11 mmo/L Normal 10-25 [facility] Comment on above: Performed By: #### 9 3685-6 ####SARAH Mcknight ([id number])[facility] ([facility])[address] [place] [address] Base excess Calc (Bld) [Moles/Vol] -7.2000 mmol/L Low -2.0-3.0 [facility] Comment on above: Performed By: #### 9 3685-6 ####SARAH Mcknight ([id number])[facility] ([facility])[address] [place] [address] Calcium.ionized (BldA) [Moles/Vol] 1.66 mmol/L High 1.10-1.33 [facility] Comment on above: Performed By: #### 9 3685-6 ####SARAH Mcknight ([id number])[facility] ([facility])[address] [place] [address] Chloride (BldA) [Moles/Vol] 106 mmol/L Normal 98-107 [facility] Comment on above: Performed By: #### 9 3685-6 ####SARAH Mcknight ([id number])[facility] ([facility])[address] [place] [address] CO2 (Bld) [Partial pressure] 32 mm Hg Low 38-42 [facility] Comment on above: Performed By: #### 9 3685-6 ####SARAH Mcknight ([id number])[facility] ([facility])[address] [place] [address] Glucose [Mass/Vol] 149 mg/dL High 74-99 [facility] Comment on above: Performed By: #### 9 3685-6 ####SARAH Mcknight ([id number])[facility] ([facility])[address] [place] [address] HCO3 (Bld) [Moles/Vol] 17.7 mmol/L Low 22.0-26.0 [facility] Comment on above: Performed By: #### 9 3685-6 ####SARAH Mcknight ([id number])[facility] ([facility])[id number] [place] [id number] Hematocrit Est (Bld) [Volume fraction] 24.0 % Low 41.0-52.0 [facility] Comment on above: Performed By: #### 9 3685-6 ####SARAH Mcknight ([id number])[facility] ([facility])[id number] [place] [id number] Hemoglobin (Bld) [Mass/Vol] 7.9 g/dL Low 13.5-17.5 [facility] Comment on above: Performed By: #### 9 3685-6 ####SARAH Mcknight ([id number])[facility] ([facility])[id number] [place] [address] [id number] Inhaled oxygen concentration 0 % Normal [facility] [facility] Comment on above: Performed By: #### 9 3685-6 ####SARAH Mcknight ([id number])[facility] ([facility])[id number] [place] [address] 33882 Lactate (BldA) [Moles/Vol] 1.0 mmol/L Normal 0.4-2.0 [facility] Comment on above: Performed By: #### 9 3685-6 ####SARAH Mcknight ([id number])[facility] ([facility])[address] [place] [address] Oxygen (Bld) [Partial pressure] 78 mm Hg Low 85-95 [facility] Comment on above: Performed By: #### 9 3685-6 ####SARAH Mcknight ([id number])[facility] ([facility])[address] [place] [address] 60424 Oxyhemoglobin (BldA) [Mass fraction] 95.3 % Normal 94.0-98.0 [facility] Comment on above: Performed By: #### 9 3685-6 ####SARAH Mcknight ([id number])[facility] ([facility])[address] [place] [address] 90335 pH (Bld) 7.35 [pH] Low 7.38-7.42 [facility] Comment on above: Performed By: #### 9 3685-6 ####SARAH Mcknight ([id number])[facility] ([facility])[address] [place] [address] 72095 Potassium (BldA) [Moles/Vol] 4.2 mmol/L Normal 3.5-5.3 [facility] Comment on above: Performed By: #### 9 3685-6 ####SARAH Mcknight ([id number])[facility] ([facility])[address] [place] [address] 76837 Sodium (BldA) [Moles/Vol] 130 mmol/L Low 136-145 [facility] Comment on above: Performed By: #### 9 3685-6 ####SARAH Mcknight ([id number])[facility] ([facility])[address] [place] [address] 50075 Anion gap 4 (BldA) [Moles/Vol] 6 Low [facility] Base excess Calc (Bld) [Moles/Vol] -5.4000 mmol/L Low -2.0 - 3.0 mmol/L [facility] Calcium.ionized (BldA) [Moles/Vol] 1.63 mmol/L High 1.10 - 1.33 mmol/L [facility] Chloride (BldA) [Moles/Vol] 106 mmol/L 98 - 107 mmol/L [facility] CO2 (Bld) [Partial pressure] 42 mm[Hg] [facility] Glucose [Mass/Vol] 187 mg/dL High 74 - 99 mg/dL [facility] HCO3 (Bld) [Moles/Vol] 20.7 mmol/L Low 22.0 - 26.0 mmol/L [facility] Hematocrit Est (Bld) [Volume fraction] 29.0 % Low 41.0 - 52.0 % [facility] Hemoglobin (Bld) [Mass/Vol] 9.5 g/dL Low 13.5 - 17.5 g/dL [facility] Interpretation and review of laboratory results Abnormal [facility] Lactate (BldA) [Moles/Vol] 1.4 mmol/L 0.4 - 2.0 mmol/L [facility] Oxygen (Bld) [Partial pressure] 160 mm[Hg] High [facility] Oxyhemoglobin (BldA) [Mass fraction] 97.1 % 94.0 - 98.0 % [facility] pH (Bld) 7.30 [pH] Low 7.38 - 7.42 pH [facility] Potassium (BldA) [Moles/Vol] 5.0 mmol/L 3.5 - 5.3 mmol/L [facility] Sodium (BldA) [Moles/Vol] 128 mmol/L Low 136 - 145 mmol/L [facility] Anion gap 4 (BldA) [Moles/Vol] 6 mmo/L Low 10-25 [facility] Comment on above: Performed By: #### 9 3685-6 ####SARAH Mcknight ([id number])[facility] ([facility])[id number] [place] [address] 57849 Base excess Calc (Bld) [Moles/Vol] -5.4000 mmol/L Low -2.0-3.0 [facility] Comment on above: Performed By: #### 9 3685-6 ####SARAH Mcknight (79092)[facility] ([facility])[address] [place] [address] 19000 Calcium.ionized (BldA) [Moles/Vol] 1.63 mmol/L High 1.10-1.33 [facility] Comment on above: Performed By: #### 9 3685-6 ####SARAH Mcknight (97959)[facility] ([facility])[address] [place] [address] Chloride (BldA) [Moles/Vol] 106 mmol/L Normal 98-107 [facility] Comment on above: Performed By: #### 9 3685-6 ####SARAH Mcknight (01576)[facility] ([facility])[address] [place] [address] CO2 (Bld) [Partial pressure] 42 mm Hg Normal 38-42 [facility] Comment on above: Performed By: #### 9 3685-6 ####SARAH Mcknight (43195)[facility] ([facility])[address] [place] [address] 87563 Glucose [Mass/Vol] 187 mg/dL High 74-99 [facility] Comment on above: Performed By: #### 9 3685-6 ####SARAH Mcknight (30494)[facility] ([facility])[address] [place] [address] HCO3 (Bld) [Moles/Vol] 20.7 mmol/L Low 22.0-26.0 [facility] Comment on above: Performed By: #### 9 3685-6 ####SARAH Mcknight (18649)[facility] ([facility])[address] [place] [address] Hematocrit Est (Bld) [Volume fraction] 29.0 % Low 41.0-52.0 [facility] Comment on above: Performed By: #### 9 3685-6 ####SARAH Mcknight (78552)[facility] ([facility])[address] [place] [address] 68661 Hemoglobin (Bld) [Mass/Vol] 9.5 g/dL Low 13.5-17.5 [facility] Comment on above: Performed By: #### 9 3685-6 ####SARAH Mcknight (13502)[facility] ([facility])[address] [place] [address] Lactate (BldA) [Moles/Vol] 1.4 mmol/L Normal 0.4-2.0 [facility] Comment on above: Performed By: #### 9 3685-6 ####SARAH Mcknight (40561)[facility] ([facility])[address] [place] [address] Oxygen (Bld) [Partial pressure] 160 mm Hg High 85-95 [facility] Comment on above: Performed By: #### 9 3685-6 ####SARAH Mcknight (24865)[facility] ([facility])[address] [place] [address] Oxyhemoglobin (BldA) [Mass fraction] 97.1 % Normal 94.0-98.0 [facility] Comment on above: Performed By: #### 9 3685-6 ####SARAH Mcknight (01014)[facility] ([facility])[address] [place] [address] pH (Bld) 7.30 [pH] Low 7.38-7.42 [facility] Comment on above: Performed By: #### 9 3685-6 ####SARAH Mcknight (77215)[facility] ([facility])[address] [place] [address] Potassium (BldA) [Moles/Vol] 5.0 mmol/L Normal 3.5-5.3 [facility] Comment on above: Performed By: #### 9 3685-6 ####SARAH Mcknight (22160)[facility] ([facility])[address] [place] [address] Sodium (BldA) [Moles/Vol] 128 mmol/L Low 136-145 [facility] Comment on above: Performed By: #### 9 3685-6 ####SARAH Mcknight (51172)[facility] ([facility])[address] [place] [address] Anion gap 4 (BldA) [Moles/Vol] 4 Low [facility] Base excess Calc (Bld) [Moles/Vol] -2.6000 mmol/L Low -2.0 - 3.0 mmol/L [facility] Calcium.ionized (BldA) [Moles/Vol] 1.71 mmol/L High 1.10 - 1.33 mmol/L [facility] Chloride (BldA) [Moles/Vol] 106 mmol/L 98 - 107 mmol/L [facility] CO2 (Bld) [Partial pressure] 39 mm[Hg] [facility] Glucose [Mass/Vol] 121 mg/dL High 74 - 99 mg/dL [facility] HCO3 (Bld) [Moles/Vol] 22.5 mmol/L 22.0 - 26.0 mmol/L [facility] Hematocrit Est (Bld) [Volume fraction] 25.0 % Low 41.0 - 52.0 % [facility] Hemoglobin (Bld) [Mass/Vol] 8.3 g/dL Low 13.5 - 17.5 g/dL [facility] Interpretation and review of laboratory results Abnormal [facility] Lactate (BldA) [Moles/Vol] 0.7 mmol/L 0.4 - 2.0 mmol/L [facility] Oxygen (Bld) [Partial pressure] 186 mm[Hg] High [facility] Oxyhemoglobin (BldA) [Mass fraction] 98.0 % 94.0 - 98.0 % [facility] pH (Bld) 7.37 [pH] Low 7.38 - 7.42 pH [facility] Potassium (BldA) [Moles/Vol] 4.6 mmol/L 3.5 - 5.3 mmol/L [facility] Sodium (BldA) [Moles/Vol] 128 mmol/L Low 136 - 145 mmol/L [facility] Anion gap 4 (BldA) [Moles/Vol] 4 mmo/L Low 10-25 [facility] Comment on above: Performed By: #### 9 3685-6 ####SARAH Chatman76339)[facility] ([facility])[address] [place] [address] Base excess Calc (Bld) [Moles/Vol] -2.6000 mmol/L Low -2.0-3.0 [facility] Comment on above: Performed By: #### 9 3685-6 ####SARAH Mcknight (88418)[facility] ([facility])[address] [place] [address] Calcium.ionized (BldA) [Moles/Vol] 1.71 mmol/L High 1.10-1.33 [facility] Comment on above: Performed By: #### 9 3685-6 ####SARAH Mcknight (78937)[facility] ([facility])[address] [place] [address] Chloride (BldA) [Moles/Vol] 106 mmol/L Normal 98-107 [facility] Comment on above: Performed By: #### 9 3685-6 ####SARAH Mcknight (05552)[facility] ([facility])[address] [place] [address] CO2 (Bld) [Partial pressure] 39 mm Hg Normal 38-42 [facility] Comment on above: Performed By: #### 9 3685-6 ####SARAH Mcknight (16773)[facility] ([facility])[address] [place] [address] Glucose [Mass/Vol] 121 mg/dL High 74-99 [facility] Comment on above: Performed By: #### 9 3685-6 ####SARAH Mcknight (36730)[facility] ([facility])[address] [place] [address] HCO3 (Bld) [Moles/Vol] 22.5 mmol/L Normal 22.0-26.0 [facility] Comment on above: Performed By: #### 9 3685-6 ####SARAH Mcknight (90755)[facility] ([facility])[address] [place] [address] Hematocrit Est (Bld) [Volume fraction] 25.0 % Low 41.0-52.0 [facility] Comment on above: Performed By: #### 9 3685-6 ####SARAH Mcknight (96111)[facility] ([facility])[address] [place] [address] Hemoglobin (Bld) [Mass/Vol] 8.3 g/dL Low 13.5-17.5 [facility] Comment on above: Performed By: #### 9 6365-6 ####SARAH Mcknight (02850)[facility] ([facility])[address] [place] [address] Lactate (BldA) [Moles/Vol] 0.7 mmol/L Normal 0.4-2.0 [facility] Comment on above: Performed By: #### 9 7135-6 ####SARAH Mcknight (24921)[facility] ([facility])[address] [place] [address] 07715 Oxygen (Bld) [Partial pressure] 186 mm Hg High 85-95 [facility] Comment on above: Performed By: #### 9 3225-6 ####SARAH Mcknight (76689)[facility] ([facility])[address] [place] [address] Oxyhemoglobin (BldA) [Mass fraction] 98.0 % Normal 94.0-98.0 [facility] Comment on above: Performed By: #### 9 4255-6 ####SARAH Mcknight (78545)[facility] ([facility])[address] [place] [address] pH (Bld) 7.37 [pH] Low 7.38-7.42 [facility] Comment on above: Performed By: #### 9 0745-6 ####SARAH Mcknight (15367)[facility] ([facility])[address] [place] [address] Potassium (BldA) [Moles/Vol] 4.6 mmol/L Normal 3.5-5.3 [facility] Comment on above: Performed By: #### 9 3685-6 ####SARAH Mcknight (74288)[facility] ([facility])[address] [place] [address] 11460 Sodium (BldA) [Moles/Vol] 128 mmol/L Low 136-145 [facility] Comment on above: Performed By: #### 9 3685-6 ####SARAH Mcknight (62771)[facility] ([facility])[address] [place] [address] Anion gap 4 (BldA) [Moles/Vol] 9 Low [facility] Base excess Calc (Bld) [Moles/Vol] -5.1000 mmol/L Low -2.0 - 3.0 mmol/L [facility] Calcium.ionized (BldA) [Moles/Vol] 1.71 mmol/L High 1.10 - 1.33 mmol/L [facility] Chloride (BldA) [Moles/Vol] 105 mmol/L 98 - 107 mmol/L [facility] CO2 (Bld) [Partial pressure] 35 mm[Hg] Low [facility] Glucose [Mass/Vol] 117 mg/dL High 74 - 99 mg/dL [facility] HCO3 (Bld) [Moles/Vol] 19.8 mmol/L Low 22.0 - 26.0 mmol/L [facility] Hematocrit Est (Bld) [Volume fraction] 26.0 % Low 41.0 - 52.0 % [facility] Hemoglobin (Bld) [Mass/Vol] 8.7 g/dL Low 13.5 - 17.5 g/dL [facility] Inhaled oxygen concentration 21 % [facility] Interpretation and review of laboratory results Abnormal [facility] Lactate (BldA) [Moles/Vol] 0.6 mmol/L 0.4 - 2.0 mmol/L [facility] Oxygen (Bld) [Partial pressure] 78 mm[Hg] Low [facility] Oxyhemoglobin (BldA) [Mass fraction] 95.0 % 94.0 - 98.0 % [facility] pH (Bld) 7.36 [pH] Low 7.38 - 7.42 pH [facility] Potassium (BldA) [Moles/Vol] 4.5 mmol/L 3.5 - 5.3 mmol/L [facility] Sodium (BldA) [Moles/Vol] 129 mmol/L Low 136 - 145 mmol/L [facility] Anion gap 4 (BldA) [Moles/Vol] 9 mmo/L Low 10-25 [facility] Comment on above: Performed By: #### 9 3685-6 ####SARAH Mcknight (64346)[facility] ([facility])[address] [place] [address] Base excess Calc (Bld) [Moles/Vol] -5.1000 mmol/L Low -2.0-3.0 [facility] Comment on above: Performed By: #### 9 3685-6 ####SARAH Mcknight (98603)[facility] ([facility])[address] [place] [address] 30766 Calcium.ionized (BldA) [Moles/Vol] 1.71 mmol/L High 1.10-1.33 [facility] Comment on above: Performed By: #### 9 3685-6 ####SARAH Mcknight (41202)[facility] ([facility])[address] [place] [address] 16335 Chloride (BldA) [Moles/Vol] 105 mmol/L Normal 98-107 [facility] Comment on above: Performed By: #### 9 3685-6 ####SARAH Mcknight (92450)[facility] ([facility])[address] [place] [address] CO2 (Bld) [Partial pressure] 35 mm Hg Low 38-42 [facility] Comment on above: Performed By: #### 9 3685-6 ####SARAH Mcknight (47043)[facility] ([facility])[address] [place] [address] 94627 Glucose [Mass/Vol] 117 mg/dL High 74-99 [facility] Comment on above: Performed By: #### 9 8415-6 ####SARAH Mcknight (25573)[facility])[address] [place] [address] HCO3 (Bld) [Moles/Vol] 19.8 mmol/L Low 22.0-26.0 [facility] Comment on above: Performed By: #### 9 9765-6 ####SARAH Mcknight (26378)[facility])[address] [place] [address] 88394 Hematocrit Est (Bld) [Volume fraction] 26.0 % Low 41.0-52.0 [facility] Comment on above: Performed By: #### 9 9045-6 ####SARAH Mcknight (78632)[facility] ([facility])[address] [place] [address] 42670 Hemoglobin (Bld) [Mass/Vol] 8.7 g/dL Low 13.5-17.5 [facility] Comment on above: Performed By: #### 9 02256 ####SARAH Mcknight (82731)[facility] ([facility])[address] [place] [address] Inhaled oxygen concentration 21 % Normal [facility] Comment on above: Performed By: #### 9 3275-6 ####SARAH Mcknight (27141)[facility] ([facility])[address] [place] [address] Lactate (BldA) [Moles/Vol] 0.6 mmol/L Normal 0.4-2.0 [facility] Comment on above: Performed By: #### 9 02456 ####SARAH Mcknight (18832)[facility] ([facility])[address] [place] [address] 00938 Oxygen (Bld) [Partial pressure] 78 mm Hg Low 85-95 [facility] Comment on above: Performed By: #### 9 9562-6 ####SARAH Mcknight (94406)[facility] ([facility])[address] [place] [address] Oxyhemoglobin (BldA) [Mass fraction] 95.0 % Normal 94.0-98.0 [facility] Comment on above: Performed By: #### 9 3685-6 ####SARAH Mcknight (03869)[facility] ([facility])[address] [place] [address] pH (Bld) 7.36 [pH] Low 7.38-7.42 [facility] Comment on above: Performed By: #### 9 3685-6 ####SARAH Mcknight (05400)[facility] ([facility])[address] [place] [address] 99971 Potassium (BldA) [Moles/Vol] 4.5 mmol/L Normal 3.5-5.3 [facility] Comment on above: Performed By: #### 9 3685-6 ####SARAH Mcknight (08970)[facility] ([facility])[address] [place] [address] 15643 Sodium (BldA) [Moles/Vol] 129 mmol/L Low 136-145 [facility] Comment on above: Performed By: #### 9 3685-6 ####SARAH Mcknight (76651)[facility] ([facility])[address] [place] [address] 04154 Gas panel (BldA)on 4 Base excess Calc (Bld) [Moles/Vol] -4.7000 mmol/L Low -2.0 - 3.0 mmol/L [facility] CO2 (Bld) [Partial pressure] 33 mm[Hg] Low [facility] HCO3 (Bld) [Moles/Vol] 19.5 mmol/L Low 22.0 - 26.0 mmol/L [facility] Inhaled oxygen concentration 50 % [facility] Interpretation and review of laboratory results Abnormal [facility] Oxygen (Bld) [Partial pressure] 193 mm[Hg] High [facility] Oxyhemoglobin (BldA) [Mass fraction] 97.3 % 94.0 - 98.0 % [facility] pH (Bld) 7.38 [pH] 7.38 - 7.42 pH [facility] Base excess Calc (Bld) [Moles/Vol] -4.7000 mmol/L Low -2.0-3.0 [facility] Comment on above: Performed By: #### 2 4336-0 ####SARAH Mcknight (22601)[facility])[address] [place] [address] CO2 (Bld) [Partial pressure] 33 mm Hg Low 38-42 [facility] Comment on above: Performed By: #### 2 4336-0 ####SARAH Mcknight (18962)[facility] ([facility])[address] [place] [address] 72539 HCO3 (Bld) [Moles/Vol] 19.5 mmol/L Low 22.0-26.0 [facility] Comment on above: Performed By: #### 2 4336-0 ####SARAH Mcknight (98430)[facility] ([facility])[address] [place] [address] 48632 Inhaled oxygen concentration 50 % Normal [facility] Comment on above: Performed By: #### 2 4336-0 ####SARAH Mcknight (56149)[facility])[address] [place] [address] 02710 Oxygen (Bld) [Partial pressure] 193 mm Hg High 85-95 [facility] Comment on above: Performed By: #### 2 4336-0 ####SARAH Mcknight (77840)[facility] ([facility])[address] [place] [address] 40004 Oxyhemoglobin (BldA) [Mass fraction] 97.3 % Normal 94.0-98.0 [facility] Comment on above: Performed By: #### 2 4336-0 ####SRAAH Mcknight ([id number])[facility])[address] [place] [address] 44014 pH (Bld) 7.38 [pH] Normal 7.38-7.42 [facility] Comment on above: Performed By: #### 2 4336-0 ####SARAH Mcknight (47304)[facility] ([facility])[address] [place] [address] 66764 Glucose Test strip manual (B ld) [Mass/Vol]on 06-15-2023 Glucose [Mass/Vol] 97 mg/dL 74 - 99 mg/dL [facility] Interpretation and review of laboratory results Normal [facility] Glucose [Mass/Vol] 97 mg/dL Normal 74-99 [facility] Comment on above: Performed By: #### 2 341-6 ####SARAH Mcknight (29600)[facility] ([facility])[address] [place] [address] 79126 Glucose [Mass/Vol] 93 mg/dL 74 - 99 mg/dL [facility] Interpretation and review of laboratory results Normal [facility] Glucose [Mass/Vol] 93 mg/dL Normal 74-99 [facility] Comment on above: Performed By: #### 2 341-6 ####SARAH Mcknight (34539)[facility] ([facility])[address] [place] [address] 22021 Glucose [Mass/Vol] 104 mg/dL High 74 - 99 mg/dL [facility] Interpretation and review of laboratory results Abnormal [facility] Glucose [Mass/Vol] 104 mg/dL High 74-99 [facility] Comment on above: Performed By: #### 2 341-6 ####SARAH Mcknight (10274)[facility] ([facility])[address] [place] [address] 80779 Glucose [Mass/Vol] 157 mg/dL High 74 - 99 mg/dL [facility] Interpretation and review of laboratory results Abnormal [facility] Glucose [Mass/Vol] 157 mg/dL High 74-99 [facility] Comment on above: Performed By: #### 2 341-6 ####SARAH Mcknight (54370)[facility] ([facility])[address] [place] [address] Glucose [Mass/Vol] 116 mg/dL High 74 - 99 mg/dL [facility] Interpretation and review of laboratory results Abnormal [facility] Glucose [Mass/Vol] 116 mg/dL High 74-99 [facility] Comment on above: Performed By: #### 2 341-6 ####SARAH Mcknight ([id number])[facility] ([facility])[address] [place] [address] 93105 Glucose [Mass/Vol] 109 mg/dL High 74 - 99 mg/dL [facility] Interpretation and review of laboratory results Abnormal [facility] Glucose [Mass/Vol] 109 mg/dL High 74-99 [facility] Comment on above: Performed By: #### 2 341-6 ####SARAH Mcknight ([id number])[facility] ([facility])[address] [place] [address] 64290 Magnesiumon 06-15-2023 Magnesium [Mass/Vol] 2.10 mg/dL 1.60 - 2.40 mg/dL [facility] Magnesium [Mass/Vol] 2.10 mg/dL Normal 1.60-2.40 [facility] Comment on above: Performed By: #### 1 9123-9 ####SARAH Mcknight (23222)[facility] ([facility])[address] [place] [address] Magnesium [Mass/Vol] 1.99 mg/dL 1.60 - 2.40 mg/dL [facility] Magnesium [Mass/Vol] 1.99 mg/dL Normal 1.60-2.40 [facility] Comment on above: Performed By: #### 1 9123-9 ####SARAH Mcknight (01237)[facility] ([facility])[address] [place] [address] Magnesium [Mass/Vol]on 06-14 Interpretation and review of laboratory results Normal [facility] Interpretation and review of laboratory results Normal [facility] No Panel Informationon 06-14 Blood Expiration Date June 17, 2023 21:35 EDT [facility] Dispense Status RE [facility] PRODUCT BLOOD TYPE 6200 [facility] PRODUCT CODE [id number] [facility] Unit ABO A [facility] Unit RH Positive [facility] Dispense Status TR [facility] PRODUCT BLOOD TYPE 6200 [facility] PRODUCT CODE [id number] [facility] Unit ABO A [facility] Unit RH Positive [facility] UNIT VOLUME 350 [facility] XM INTEP COMP [facility] Dispense Status TR [facility] PRODUCT BLOOD TYPE 6200 [facility] Unit ABO A [facility] Unit RH Positive [facility] Interpretation and review of laboratory results Abnormal [facility] PT Coag (PPP) [Time]on 06-14 INR Coag (PPP) [Relative time] 1.7 {INR} High 0.9 - 1.1 [facility] Interpretation and review of laboratory results Abnormal [facility] INR Coag (PPP) [Relative time] 1.7 High 0.9-1.1 [facility] Comment on above: Performed By: #### 5 [id number] ####SARAH Mcknight ([id number])[facility] ([facility])[address] [place] [address] Prepare Plasma: 2 Unitson Blood Expiration Date June 17, 2023 18:10 EDT [facility] Blood Expiration Date June 17, 2023 21:35 EDT [facility] PRODUCT CODE [id number] [facility] PRODUCT CODE [id number] [facility] Unit Number [id number] [facility] Unit Number [id number] [facility] UNIT VOLUME 217 [facility] UNIT VOLUME 327 [facility] Prepare Plasma: 4 Unitson Blood Expiration Date June 19, 2023 14:12 T [facility] Blood Expiration Date June 17, 2023 18:10 [facility] PRODUCT CODE [id number] [facility] Unit Number [id number] [facility] Unit Number [id number] [facility] Unit Number [id number] [facility] Unit Number [id number] [facility] UNIT VOLUME 217 [facility] UNIT VOLUME 308 [facility] UNIT VOLUME 277 [facility] UNIT VOLUME 306 [facility] Prepare Platelets: 1 Unitson 06-15-2023 Blood Expiration Date June 16, 2023 23:59 [facility] PRODUCT BLOOD TYPE 5100 [facility] PRODUCT CODE [id number] [facility] Unit ABO O [facility] Unit Number [id number] [facility] UNIT VOLUME 243 [facility] Prepare RBC: 2 Unitson 06-14 Blood Expiration Date June 29, 2023 23:59 [facility] Blood Expiration Date July 01, 2023 23:59 [facility] Unit Number [id number] [facility] Unit Number [id number] [facility] Protime-INRon 06-15-2023 PT Coag (PPP) [Time] 19.6 s High [facility] Renal function 2000 panelon 06-15-2023 Albumin BCP dye [Mass/Vol] 2.4 g/dL Low 3.4 - 5.0 g/dL [facility] Anion gap [Moles/Vol] 10 mmol/L 10 - 2 0 mmol/L [facility] Calcium [Mass/Vol] 9.9 mg/dL 8.6 - 10. 6 mg/dL [facility] Chloride [Moles/Vol] 106 mmol/L 98 - 10 7 mmol/L [facility] CO2 [Moles/Vol] 20 mmol/L Low 21 - 32 mmol/L [facility] Creatinine [Mass/Vol] 0.59 mg/dL 0.50 - 1.30 mg/dL [facility] eGFR - PINF [facility] Glucose [Mass/Vol] 140 mg/dL High 74 - 99 mg/dL [facility] Interpretation and review of laboratory results Abnormal [facility] Phosphate [Mass/Vol] 3.4 mg/dL 2.5 - 4 .9 mg/dL [facility] Potassium [Moles/Vol] 4.1 mmol/L 3.5 - 5.3 mmol/L [facility] Sodium [Moles/Vol] 132 mmol/L Low 136 - 145 mmol/L [facility] Urea nitrogen [Mass/Vol] 24 mg/dL High 6 - 23 mg/dL [facility] Albumin BCP dye [Mass/Vol] 2.4 g/dL Low 3.4-5.0 [facility] Comment on above: Performed By: #### 2 4362-6 ####SARAH Mcknight ([id number])[facility] ([facility])[address] [place] [address] Anion gap [Moles/Vol] 10 mmol/L Normal 10-20 [facility] Comment on above: Performed By: #### 2 4362-6 ####SARAH Mcknight ([id number])[facility] ([facility])[address] [place] [address] Calcium [Mass/Vol] 9.9 mg/dL Normal 8.6-10.6 [facility] Comment on above: Performed By: #### 2 4362-6 ####SARAH Mcknight ([id number])[facility] ([facility])[address] [place] [address] Chloride [Moles/Vol] 106 mmol/L Normal 98-107 [facility] Comment on above: Performed By: #### 2 4362-6 ####SARAH Mcknight ([id number])[facility] ([facility])[address] [place] [address] CO2 [Moles/Vol] 20 mmol/L Low 21-32 [facility] Comment on above: Performed By: #### 2 4362-6 ####SARAH Mcknight ([id number])[facility] ([facility])[address] [place] [address] Creatinine [Mass/Vol] 0.59 mg/dL Normal 0.50-1.30 [facility] Comment on above: Performed By: #### 2 4362-6 ####SARAH Mcknight ([id number])[facility] ([facility])[address] [place] [address] GFR/1.73 sq M.predicted MDRD (S/P/Bld) [Vol rate/Area] mL/min/{1.73_m2} Normal >60 [facility] Comment on above: Result Comment: Calc ulations of estimated GFR are performed using the 2020 CKD-EPI Study Refit equation without the race variable for the IDMS-Traceable creatinine methods.https://jasn.asnjournals.org/content/early//A SN.5428329257 Performed By: #### 2 4362-6 ####SARAH Mcknight ([id number])[facility] ([facility])[address] [place] [address] Glucose [Mass/Vol] 140 mg/dL High 74-99 [facility] Comment on above: Performed By: #### 2 4362-6 ####SARAH Mcknight ([id number])[facility] ([facility])[address] [place] [address] Phosphate [Mass/Vol] 3.4 mg/dL Normal 2.5-4.9 [facility] Comment on above: Result Comment: The performance characteristics of phosphorus testing in heparinized plasma have been validated by the individual laboratory site where testing is performed. Testing on heparinized plasma is not approved by the FDA; however, such approval is not necessary. Performed By: #### 2 4362-6 ####SARAH Mcknight ([id number])[facility] ([facility])[address] [place] [address] Potassium [Moles/Vol] 4.1 mmol/L Normal 3.5-5.3 [facility] Comment on above: Performed By: #### 2 4362-6 ####SARAH Mcknight ([id number])[facility] ([facility])[address] [place] [address] Sodium [Moles/Vol] 132 mmol/L Low 136-145 [facility] Comment on above: Performed By: #### 2 4362-6 ####SARAH Mcknight ([id number])[facility] ([facility])[address] [place] [address] Urea nitrogen [Mass/Vol] 24 mg/dL High 6-23 [facility] Comment on above: Performed By: #### 2 4362-6 ####SARAH Mcknight ([id number])[facility] ([facility])[address] [place] [address] Albumin BCP dye [Mass/Vol] 2.3 g/dL Low 3.4 - 5.0 g/dL [facility] Anion gap [Moles/Vol] 9 mmol/L Low 10 - 2 0 mmol/L [facility] Calcium [Mass/Vol] 10.3 mg/dL 8.6 - 10. 6 mg/dL [facility] Chloride [Moles/Vol] 105 mmol/L 98 - 10 7 mmol/L [facility] CO2 [Moles/Vol] 21 mmol/L 21 - 32 mmol/L [facility] Creatinine [Mass/Vol] 0.66 mg/dL 0.50 - 1.30 mg/dL [facility] eGFR - PINF [facility] Glucose [Mass/Vol] 114 mg/dL High 74 - 99 mg/dL [facility] Phosphate [Mass/Vol] 2.1 mg/dL Low 2.5 - 4 .9 mg/dL [facility] Potassium [Moles/Vol] 4.4 mmol/L 3.5 - 5.3 mmol/L [facility] Sodium [Moles/Vol] 131 mmol/L Low 136 - 145 mmol/L [facility] Urea nitrogen [Mass/Vol] 22 mg/dL 6 - 23 mg/dL [facility] Albumin BCP dye [Mass/Vol] 2.3 g/dL Low 3.4-5.0 [facility] Comment on above: Performed By: #### 2 4362-6 ####SARAH Mcknight ([id number])[facility] ([facility])[address] [place] [address] Anion gap [Moles/Vol] 9 mmol/L Low 10-20 [facility] Comment on above: Performed By: #### 2 4362-6 ####SARAH Mcknight ([id number])[facility] ([facility])[address] [place] [address] Calcium [Mass/Vol] 10.3 mg/dL Normal 8.6-10.6 [facility] Comment on above: Performed By: #### 2 4362-6 ####SARAH Mcknight ([id number])[facility] ([facility])[address] [place] [address] Chloride [Moles/Vol] 105 mmol/L Normal 98-107 [facility] Comment on above: Performed By: #### 2 4362-6 ####SARAH Mcknight ([id number])[facility] ([facility])[address] [place] [address] CO2 [Moles/Vol] 21 mmol/L Normal 21-32 [facility] Comment on above: Performed By: #### 2 4362-6 ####SARAH Mcknight ([id number])[facility] ([facility])[address] [place] [address] Creatinine [Mass/Vol] 0.66 mg/dL Normal 0.50-1.30 [facility] Comment on above: Performed By: #### 2 4362-6 ####SARAH Mcknight ([id number])[facility] ([facility])[address] [place] [address] GFR/1.73 sq M.predicted MDRD (S/P/Bld) [Vol rate/Area] mL/min/{1.73_m2} Normal >60 [facility] Comment on above: Result Comment: Calc ulations of estimated GFR are performed using the 2020 CKD-EPI Study Refit equation without the race variable for the IDMS-Traceable creatinine methods.https://jasn.asnjournals.org/content//A SN.4881524517 Performed By: #### 2 4362-6 ####SARAH Mcknight ([id number])[facility] ([facility])[address] [place] [address] Glucose [Mass/Vol] 114 mg/dL High 74-99 [facility] Comment on above: Performed By: #### 2 4362-6 ####SARAH Mcknight ([id number])[facility] ([facility])[address] [place] [address] Phosphate [Mass/Vol] 2.1 mg/dL Low 2.5-4.9 [facility] Comment on above: Result Comment: The performance characteristics of phosphorus testing in heparinized plasma have been validated by the individual laboratory site where testing is performed. Testing on heparinized plasma is not approved by the FDA; however, such approval is not necessary. Performed By: #### 2 4362-6 ####SARAH Mcknight ([id number])[facility] ([facility])[address] [place] [address] Potassium [Moles/Vol] 4.4 mmol/L Normal 3.5-5.3 [facility] Comment on above: Performed By: #### 2 4362-6 ####SARAH OMER L ([id number])[facility] ([facility])[address] [place] [address] Sodium [Moles/Vol] 131 mmol/L Low 136-145 [facility] Comment on above: Performed By: #### 2 4362-6 ####SARAH OMER L ([id number])[facility] ([facility])[address] [place] [address] Urea nitrogen [Mass/Vol] 22 mg/dL Normal 6-23 [facility] Comment on above: Performed By: #### 2 4362-6 ####SARAH Mcknight ([id number])[facility] ([facility])[address] [place], [place] [address] Surgical pathology studyon 0 06-15-2023 Surgical pathology study Normal [facility] Comment on above: Order Comment: Pre-o p diagnosis:Cholecystitis [K81.9] TEG Clot Global Profileon ANGLE 74.0 deg 63.0 - 78.0 deg [facility] FLEV 370 mg/dL 278 - 581 mg/dL [facility] Interpretation and review of laboratory results Normal [facility] K (Clot Kinetics) 1.2 min 0.8 - 2.1 min [facility] MA ( Graciela Amplitude) FF 20.0 mm 15.0 - 32.0 mm [facility] MA (Max Amplitude) K 61.0 mm 52.0 - 69.0 mm [facility] MA (Max Amplitude) RT 61.0 mm 52.0 - 70.0 mm [facility] R (Reaction Time) K 6.3 min 4.6 - 9. 1 min [facility] R (Reaction Time) KH 5.6 min 4.3 - 8 .3 min [facility] THROMBOELASTOGRAPH CLOTTING GLOBAL PROFILEon 06-15-2023 Clot angle.kaolin induced 74.0 deg Normal 63.0-78.0 [facility] Comment on above: Performed By: #### P OCTEGLO ####SARAH Mcknight ([id number])[facility] ([facility])[address] [place] [address] Clot formation.kaolin induced 1.2 min Normal 0.8-2.1 [facility] Comment on above: Performed By: #### P OCTEGLO ####SARAH Mcknight ([id number])[facility] ([facility])[address] [place] [address] Clot initiation.kaolin induced 6.3 min Normal 4.6-9.1 [facility] Comment on above: Performed By: #### P OCTEGLO ####SARAH Mcknight ([id number])[facility] ([facility])[address] [place] [address] Clot initiation.kaolin induced^post heparin neutralization 5.6 min Normal 4.3-8.3 [facility] Comment on above: Performed By: #### P OCTEGLO ####SARAH Mcknight ([id number])[facility] ([facility])[address] [place] [address] Fibrinogen 370 mg/dL Normal 278-581 [facility] Comment on above: Performed By: #### P OCTEGLO ####SARAH Mcknight ([id number])[facility] ([facility])[address] [place] [address] Maximum clot strength amplitude.kaolin induced 61.0 mm Normal 52.0-69.0 [facility] Comment on above: Performed By: #### P OCTEGLO ####SARAH Mcknight ([id number])[facility] ([facility])[address] [place] [address] Maximum clot strength amplitude.kaolin+tissu e factor induced 61.0 mm Normal 52.0-70.0 [facility] Comment on above: Performed By: #### P OCTEGLO ####SARAH Mcknight ([id number])[facility] ([facility])[address] [place] [address] Maximum clot strength amplitude.tissue factor induced+platelet glycoprotein IIb-IIIa receptor inhibited 20.0 mm Normal 15.0-32.0 [facility] Comment on above: Performed By: #### P OCTEGLO ####SARAH Mcknight ([id number])[facility] ([facility])[address] [place] [address] THROMBOELASTOGRAPH CLOTTING GLOBAL PROFILE UNSOLICITEDon 06-15-2023 Clot angle.kaolin induced 74.0 deg Normal 63.0-78.0 [facility] Comment on above: Performed By: #### P OCTEGLOU ####SARAH OMER L ([id number])[facility] ([facility])[address] [place] [address] Clot formation.kaolin induced 1.1 min Normal 0.8-2.1 [facility] Comment on above: Performed By: #### P OCTEGLOU ####SARAH OMER L ([id number])[facility] ([facility])[address] [place] [address] Clot initiation.kaolin induced 8.2 min Normal 4.6-9.1 [facility] Comment on above: Performed By: #### P OCTEGLOU ####SARAH OMER L ([id number])[facility] ([facility])[address] [place] [address] Clot initiation.kaolin induced^post heparin neutralization 6.5 min Normal 4.3-8.3 [facility] Comment on above: Performed By: #### P OCTEGLOU ####SARAH OMER L ([id number])[facility] ([facility])[address] [place] [address] Fibrinogen 445 mg/dL Normal 278-581 [facility] Comment on above: Performed By: #### P OCTEGLOU ####SARAH OMER L ([id number])[facility] ([facility])[address] [place] [address] Maximum clot strength amplitude.kaolin induced 65.0 mm Normal 52.0-69.0 [facility] Comment on above: Performed By: #### P OCTEGLOU ####SARAH PENALOZAMOTZRODNEY L ([id number])[facility] ([facility])[address] [place] [address] Maximum clot strength amplitude.kaolin+tissu e factor induced 65.0 mm Normal 52.0-70.0 [facility] Comment on above: Performed By: #### P OCTEGLOU ####SARAH PENALOZAMOTZER L ([id number])[facility] ([facility])[address] [place] [address] Maximum clot strength amplitude.tissue factor induced+platelet glycoprotein IIb-IIIa receptor inhibited 24.0 mm Normal 15.0-32.0 [facility] Comment on above: Performed By: #### P SARAHI ####SARAH Mcknight ([id number])[facility] ([facility])[address] [place], [place] [address] TEST COMMENT baseline Normal [facility] Comment on above: Performed By: #### P SARAHI ####SARAH Mcknight ([id number])[facility] ([facility])[address] [place], [place] [address] Tropinin I.cardiac panel Hig h sensitivity methodon 06-15-2023 Interpretation and review of laboratory results Abnormal [facility] Interpretation and review of laboratory results Abnormal [facility] Troponin I, High Sensitivity on 06-15-2023 Tropinin I.cardiac panel High sensitivity method 63 ng/L High 0 - 53 ng/L [facility] Tropinin I.cardiac panel High sensitivity method 93 ng/L High 0 - 53 ng/L [facility] Troponin I.cardiac panelon 0 06-15-2023 Tropinin I.cardiac panel High sensitivity method 63 ng/L High 0-53 [facility] Comment on above: Order Comment: Less than 99th percentile of normal range cutoff-Female and children under 18 years old <35 ng/L; Male <54 ng/L: NegativeRepeat testing should be performed if clinically indicated.Female and children under 18 years old 35-120 ng/L; Male 54-120 ng/L:Consistent with possible cardiac damage and possible increased clinicalrisk. Serial measurements may help to assess extent of myocardial damage.>120 ng/L: Consistent with cardiac damage, increased clinical risk andmyocardial infarction. Serial measurements may help assess extent ofmyocardial damage.NOTE: Children less than 1 year old may have higher baseline troponinlevels and results should be interpreted in conjunction with the overallclinical context.NOTE: Troponin I testing is performed using a differenttesting methodology [facility] than at [facility]. Direct result comparisons should onlybe made within the same method. Performed By: #### 8 9577-1 ####SARAH Mcknight ([id number])[facility] ([facility])[address] [place] [address] Tropinin I.cardiac panel High sensitivity method 93 ng/L High 0-53 [facility] Comment on above: Order Comment: Less than 99th percentile of normal range cutoff-Female and children under 18 years old <35 ng/L; Male <54 ng/L: NegativeRepeat testing should be performed if clinically indicated.Female and children under 18 years old 35-120 ng/L; Male 54-120 ng/L:Consistent with possible cardiac damage and possible increased clinicalrisk. Serial measurements may help to assess extent of myocardial damage.>120 ng/L: Consistent with cardiac damage, increased clinical risk andmyocardial infarction. Serial measurements may help assess extent ofmyocardial damage.NOTE: Children less than 1 year old may have higher baseline troponinlevels and results should be interpreted in conjunction with the overallclinical context.NOTE: Troponin I testing is performed using a differenttesting methodology at [facility] than at [facility]. Direct result comparisons should onlybe made within the same method. Performed By: #### 8 9577-1 ####SARAH Mcknight ([id number])[facility] ([facility])[address] [place] [id number] US Abdomen RUQon 06-15-2023 [facility]AL [facility] Work Phone: US Abdomen RUQOrdered By: Prachi Valles on 06-15-2023 [facility] Work Phone: Vancomycinon 06-15-2023 Vancomycin [Mass/Vol] 21.3 ug/mL High 5.0 - 20.0 ug/mL [facility] Vancomycin [Mass/Vol] 21.3 ug/mL High 5.0-20.0 [facility] Comment on above: Order Comment: Vanco mycin levels can be monitored according to area under the curve (AUC) or concentration (ug/mL). The preferred monitoring strategy is determined by the patient's renal function and indication for therapy.For AUC monitoring, a random vancomycin level should be interpreted in the context of AUC rather than the concentration at a single point in time.For concentration monitoring, a trough concentration drawn immediately prior to the next dose is preferred.Therapeutic ranges using concentration-guided results:Peak (all ages): 30.0-40.0 ug/mLTrough (all ages): 10.0-20.0 ug/mL Performed By: #### 2 0578-1 ####SARAH Mcknight ([id number])[facility] ([facility])[address] [place] [address] Vancomycin [Mass/Vol] 27.0 ug/mL High 5.0 - 20.0 ug/mL [facility] Vancomycin [Mass/Vol] 27.0 ug/mL High 5.0-20.0 [facility] Comment on above: Order Comment: Vanco mycin levels can be monitored according to area under the curve (AUC) or concentration (ug/mL). The preferred monitoring strategy is determined by the patient's renal function and indication for therapy.For AUC monitoring, a random vancomycin level should be interpreted in the context of AUC rather than the concentration at a single point in time.For concentration monitoring, a trough concentration drawn immediately prior to the next dose is preferred.Therapeutic ranges using concentration-guided results:Peak (all ages): 30.0-40.0 ug/mLTrough (all ages): 10.0-20.0 ug/mL Performed By: #### 2 0578-1 ####SARAH Mcknight ([id number])[facility] ([facility])[address] [place] [address] Vancomycin [Mass/Vol] 27.0 ug/mL High 5.0 - 20.0 ug/mL [facility] Vancomycin [Mass/Vol] 27.0 ug/mL High 5.0-20.0 [facility] Comment on above: Order Comment: Vanco mycin levels can be monitored according to area under the curve (AUC) or concentration (ug/mL). The preferred monitoring strategy is determined by the patient's renal function and indication for therapy.For AUC monitoring, a random vancomycin level should be interpreted in the context of AUC rather than the concentration at a single point in time.For concentration monitoring, a trough concentration drawn immediately prior to the next dose is preferred.Therapeutic ranges using concentration-guided results:Peak (all ages): 30.0-40.0 ug/mLTrough (all ages): 10.0-20.0 ug/mL Performed By: #### 2 0578-1 ####SARAH Mcknight ([id number])[facility] ([facility])[address] [place] [address] Vancomycin [Mass/Vol]on Interpretation and review of laboratory results Abnormal [facility] Interpretation and review of laboratory results Abnormal [facility] aPTT Coag (PPP) [Time]on Interpretation and review of laboratory results Normal [facility] Bacteria identified Cx Nom ( U)Ordered By: Georgina Khan on 06-14-2023 Interpretation and review of laboratory results Normal [facility] CBC W Auto Differential pane l (Bld)on 06-14-2023 Erythrocyte distribution width (RBC) [Ratio] 15.2 % High 11.5-14.5 [facility] Comment on above: Order Comment: The p reviously reported component Neutrophils % is no longer being reported.The previously reported component Lymphocytes % is no longer being reported.The previously reported component Monocytes % is no longer being reported.The previously reported component Eosinophils % is no longer being reported.The previously reported component Basophils % is no longer being reported.The previously reported component Absolute Neutrophils is no longer being reported.The previously reported component Absolute Lymphocytes is no longer being reported.The previously reported component Absolute Monocytes is no longer being reported.The previously reported component Absolute Eosinophils is no longer being reported.The previously reported component Absolute Basophils is no longer being reported. Performed By: #### 5 7021-8 ####SARAH Mcknight ([id number])[facility] ([facility])[address] [place] [address] Hematocrit (Bld) [Volume fraction] 28.3 % Low 41.0-52.0 [facility] Comment on above: Order Comment: The p reviously reported component Neutrophils % is no longer being reported.The previously reported component Lymphocytes % is no longer being reported.The previously reported component Monocytes % is no longer being reported.The previously reported component Eosinophils % is no longer being reported.The previously reported component Basophils % is no longer being reported.The previously reported component Absolute Neutrophils is no longer being reported.The previously reported component Absolute Lymphocytes is no longer being reported.The previously reported component Absolute Monocytes is no longer being reported.The previously reported component Absolute Eosinophils is no longer being reported.The previously reported component Absolute Basophils is no longer being reported. Performed By: #### 5 7021-8 ####SARAH Mcknight ([id number])[facility] [facility] ([facility])[address] [place] [address] Hemoglobin (Bld) [Mass/Vol] 9.0 g/dL Low 13.5-17.5 [facility] Comment on above: Order Comment: The p reviously reported component Neutrophils % is no longer being reported.The previously reported component Lymphocytes % is no longer being reported.The previously reported component Monocytes % is no longer being reported.The previously reported component Eosinophils % is no longer being reported.The previously reported component Basophils % is no longer being reported.The previously reported component Absolute Neutrophils is no longer being reported.The previously reported component Absolute Lymphocytes is no longer being reported.The previously reported component Absolute Monocytes is no longer being reported.The previously reported component Absolute Eosinophils is no longer being reported.The previously reported component Absolute Basophils is no longer being reported. Performed By: #### 5 7021-8 ####SARAH Mcknight ([id number])[facility] ([facility])[address] [place] [address] Immature granulocytes (Bld) [#/Vol] 0.03 x10*3/uL Normal 0.00-0.70 [facility] Comment on above: Order Comment: The p reviously reported component Neutrophils % is no longer being reported.The previously reported component Lymphocytes % is no longer being reported.The previously reported component Monocytes % is no longer being reported.The previously reported component Eosinophils % is no longer being reported.The previously reported component Basophils % is no longer being reported.The previously reported component Absolute Neutrophils is no longer being reported.The previously reported component Absolute Lymphocytes is no longer being reported.The previously reported component Absolute Monocytes is no longer being reported.The previously reported component Absolute Eosinophils is no longer being reported.The previously reported component Absolute Basophils is no longer being reported. Performed By: #### 5 7021-8 ####SARAH Mcknight ([id number])[facility] ([facility])[address] [place] [address] Immature granulocytes/100 WBC (Bld) 0.3 % Normal 0.0-0.9 [facility] Comment on above: Order Comment: The p reviously reported component Neutrophils % is no longer being reported.The previously reported component Lymphocytes % is no longer being reported.The previously reported component Monocytes % is no longer being reported.The previously reported component Eosinophils % is no longer being reported.The previously reported component Basophils % is no longer being reported.The previously reported component Absolute Neutrophils is no longer being reported.The previously reported component Absolute Lymphocytes is no longer being reported.The previously reported component Absolute Monocytes is no longer being reported.The previously reported component Absolute Eosinophils is no longer being reported.The previously reported component Absolute Basophils is no longer being reported. Result Comment: Ciera ture Granulocyte Count (IG) includes promyelocytes, myelocytes and metamyelocytes but does not include bands. Percent differential counts (%) should be interpreted in the context of the absolute cell counts (cells/UL). Performed By: #### 5 7021-8 ####SARAH Mcknight ([id number])[facility] ([facility])[address] [place] [address] MCH (RBC) [Entitic mass] 28.9 pg Normal 26.0-34.0 [facility] Comment on above: Order Comment: The p reviously reported component Neutrophils % is no longer being reported.The previously reported component Lymphocytes % is no longer being reported.The previously reported component Monocytes % is no longer being reported.The previously reported component Eosinophils % is no longer being reported.The previously reported component Basophils % is no longer being reported.The previously reported component Absolute Neutrophils is no longer being reported.The previously reported component Absolute Lymphocytes is no longer being reported.The previously reported component Absolute Monocytes is no longer being reported.The previously reported component Absolute Eosinophils is no longer being reported.The previously reported component Absolute Basophils is no longer being reported. Performed By: #### 5 7021-8 ####SARAH Mcknight ([id number])[facility] ([facility])[address] [place] [address] MCHC (RBC) [Mass/Vol] 31.8 g/dL Low 32.0-36.0 [facility] Comment on above: Order Comment: The p reviously reported component Neutrophils % is no longer being reported.The previously reported component Lymphocytes % is no longer being reported.The previously reported component Monocytes % is no longer being reported.The previously reported component Eosinophils % is no longer being reported.The previously reported component Basophils % is no longer being reported.The previously reported component Absolute Neutrophils is no longer being reported.The previously reported component Absolute Lymphocytes is no longer being reported.The previously reported component Absolute Monocytes is no longer being reported.The previously reported component Absolute Eosinophils is no longer being reported.The previously reported component Absolute Basophils is no longer being reported. Performed By: #### 5 7021-8 ####SARAH Mcknight ([id number])[facility] ([facility])[address] [place] [address] MCV (RBC) [Entitic vol] 91 fL Normal 80-100 [facility] Comment on above: Order Comment: The p reviously reported component Neutrophils % is no longer being reported.The previously reported component Lymphocytes % is no longer being reported.The previously reported component Monocytes % is no longer being reported.The previously reported component Eosinophils % is no longer being reported.The previously reported component Basophils % is no longer being reported.The previously reported component Absolute Neutrophils is no longer being reported.The previously reported component Absolute Lymphocytes is no longer being reported.The previously reported component Absolute Monocytes is no longer being reported.The previously reported component Absolute Eosinophils is no longer being reported.The previously reported component Absolute Basophils is no longer being reported. Performed By: #### 5 7021-8 ####SARAH Mcknight ([id number])[facility] ([facility])[address] [place] [address] Nucleated RBC/100 WBC (Bld) [Ratio] 0.0 /100 WBCs Normal 0.0-0.0 [facility] Comment on above: Order Comment: The p reviously reported component Neutrophils % is no longer being reported.The previously reported component Lymphocytes % is no longer being reported.The previously reported component Monocytes % is no longer being reported.The previously reported component Eosinophils % is no longer being reported.The previously reported component Basophils % is no longer being reported.The previously reported component Absolute Neutrophils is no longer being reported.The previously reported component Absolute Lymphocytes is no longer being reported.The previously reported component Absolute Monocytes is no longer being reported.The previously reported component Absolute Eosinophils is no longer being reported.The previously reported component Absolute Basophils is no longer being reported. Performed By: #### 5 7021-8 ####SARAH MORENOTZER Juan Luis ([id number])[facility] ([facility])[address] [place] [address] Platelets (Bld) [#/Vol] 143 x10*3/uL Low 150-450 [facility] Comment on above: Order Comment: The p reviously reported component Neutrophils % is no longer being reported.The previously reported component Lymphocytes % is no longer being reported.The previously reported component Monocytes % is no longer being reported.The previously reported component Eosinophils % is no longer being reported.The previously reported component Basophils % is no longer being reported.The previously reported component Absolute Neutrophils is no longer being reported.The previously reported component Absolute Lymphocytes is no longer being reported.The previously reported component Absolute Monocytes is no longer being reported.The previously reported component Absolute Eosinophils is no longer being reported.The previously reported component Absolute Basophils is no longer being reported. Performed By: #### 5 7021-8 ####SARAH PENALOZAMOTZER L ([id number])[facility] ([facility])[address] [place] [address] RBC (Bld) [#/Vol] 3.11 x10*6/uL Low 4.50-5.90 [facility] Comment on above: Order Comment: The p reviously reported component Neutrophils % is no longer being reported.The previously reported component Lymphocytes % is no longer being reported.The previously reported component Monocytes % is no longer being reported.The previously reported component Eosinophils % is no longer being reported.The previously reported component Basophils % is no longer being reported.The previously reported component Absolute Neutrophils is no longer being reported.The previously reported component Absolute Lymphocytes is no longer being reported.The previously reported component Absolute Monocytes is no longer being reported.The previously reported component Absolute Eosinophils is no longer being reported.The previously reported component Absolute Basophils is no longer being reported. Performed By: #### 5 7021-8 ####SARAH Mcknight ([id number])[facility] ([facility])[address] [place] [address] WBC (Bld) [#/Vol] 10.0 x10*3/uL Normal 4.4-11.3 [facility] Comment on above: Order Comment: The p reviously reported component Neutrophils % is no longer being reported.The previously reported component Lymphocytes % is no longer being reported.The previously reported component Monocytes % is no longer being reported.The previously reported component Eosinophils % is no longer being reported.The previously reported component Basophils % is no longer being reported.The previously reported component Absolute Neutrophils is no longer being reported.The previously reported component Absolute Lymphocytes is no longer being reported.The previously reported component Absolute Monocytes is no longer being reported.The previously reported component Absolute Eosinophils is no longer being reported.The previously reported component Absolute Basophils is no longer being reported. Performed By: #### 5 7021-8 ####SARAH Mcknight ([id number])[facility] ([facility])[address] [place] [address] CBC panel Auto (Bld)on 06-13 Erythrocyte distribution width (RBC) [Ratio] 15.1 % High 11.5 - 14.5 % [facility] Hematocrit (Bld) [Volume fraction] 27.0 % Low 41.0 - 52.0 % [facility] Hemoglobin (Bld) [Mass/Vol] 8.8 g/dL Low 13.5 - 17.5 g/dL [facility] Interpretation and review of laboratory results Abnormal [facility] MCH (RBC) [Entitic mass] 29.9 pg 26.0 - 34.0 pg [facility] MCHC (RBC) [Mass/Vol] 32.6 g/dL 32.0 - 36.0 g/dL [facility] MCV (RBC) [Entitic vol] 92 fL 80 - 100 fL [facility] Nucleated RBC/100 WBC (Bld) [Ratio] 0.0 % [facility] Platelets (Bld) [#/Vol] 144 10*3/uL Low [facility] RBC (Bld) [#/Vol] 2.94 10*6/uL Low [facility] WBC (Bld) [#/Vol] 13.2 10*3/uL High [facility] Erythrocyte distribution width (RBC) [Ratio] 15.2 % High 11.5 - 14.5 % [facility] Hematocrit (Bld) [Volume fraction] 27.1 % Low 41.0 - 52.0 % [facility] Hemoglobin (Bld) [Mass/Vol] 8.5 g/dL Low 13.5 - 17.5 g/dL [facility] Interpretation and review of laboratory results Abnormal [facility] MCH (RBC) [Entitic mass] 28.6 pg 26.0 - 34.0 pg [facility] MCHC (RBC) [Mass/Vol] 31.4 g/dL Low 32.0 - 36.0 g/dL [facility] MCV (RBC) [Entitic vol] 91 fL 80 - 100 fL [facility] Nucleated RBC/100 WBC (Bld) [Ratio] 0.0 % [facility] Platelets (Bld) [#/Vol] 140 10*3/uL Low [facility] RBC (Bld) [#/Vol] 2.97 10*6/uL Low [facility] WBC (Bld) [#/Vol] 14.2 10*3/uL High [facility] Erythrocyte distribution width (RBC) [Ratio] 15.2 % High 11.5-14.5 [facility] Comment on above: Performed By: #### 5 8410-2 ####SARAH Mcknight ([id number])[facility] ([facility])[address] [place] [address] Hematocrit (Bld) [Volume fraction] 27.1 % Low 41.0-52.0 [facility] Comment on above: Performed By: #### 5 8410-2 ####SARAH Mcknight ([id number])[facility] ([facility])[address] [place] [address] Hemoglobin (Bld) [Mass/Vol] 8.5 g/dL Low 13.5-17.5 [facility] Comment on above: Performed By: #### 5 8410-2 ####SARAH Mcknight ([id number])[facility] ([facility])[address] [place] [address] MCH (RBC) [Entitic mass] 28.6 pg Normal 26.0-34.0 [facility] Comment on above: Performed By: #### 5 8410-2 ####SARAH Mcknight ([id number])[facility] ([facility])[address] [place] [address] MCHC (RBC) [Mass/Vol] 31.4 g/dL Low 32.0-36.0 [facility] Comment on above: Performed By: #### 5 8410-2 ####SARAH Mcknight ([id number])[facility] ([facility])[address] [place] [address] MCV (RBC) [Entitic vol] 91 fL Normal 80-100 [facility] Comment on above: Performed By: #### 5 8410-2 ####SARAH Mcknight ([id number])[facility] ([facility])[address] [place] [address] Nucleated RBC/100 WBC (Bld) [Ratio] 0.0 /100 WBCs Normal 0.0-0.0 [facility] Comment on above: Performed By: #### 5 8410-2 ####SARAH Mcknight ([id number])[facility] ([facility])[address] [place] [address] Platelets (Bld) [#/Vol] 140 x10*3/uL Low 150-450 [facility] Comment on above: Performed By: #### 5 8410-2 ####SARAH Mcknight ([id number])[facility] ([facility])[address] [place] [address] RBC (Bld) [#/Vol] 2.97 x10*6/uL Low 4.50-5.90 [facility] Comment on above: Performed By: #### 5 8410-2 ####SARAH Mcknight ([id number])[facility] ([facility])[address] [place] [address] WBC (Bld) [#/Vol] 14.2 x10*3/uL High 4.4-11.3 [facility] Comment on above: Performed By: #### 5 8410-2 ####SARAH Mcknight ([id number])[facility] ([facility])[address] [place] [address] Erythrocyte distribution width (RBC) [Ratio] 15.1 % High 11.5-14.5 [facility] Comment on above: Performed By: #### 5 8410-2 ####SARAH Mcknight ([id number])[facility] ([facility])[address] [place] [address] Hematocrit (Bld) [Volume fraction] 27.0 % Low 41.0-52.0 [facility] Comment on above: Performed By: #### 5 8410-2 ####SARAH Mcknight ([id number])[facility] ([facility])[address] [place] [address] Hemoglobin (Bld) [Mass/Vol] 8.8 g/dL Low 13.5-17.5 [facility] Comment on above: Performed By: #### 5 8410-2 ####SARAH Mcknight ([id number])[facility] ([facility])[address] [place] [address] MCH (RBC) [Entitic mass] 29.9 pg Normal 26.0-34.0 [facility] Comment on above: Performed By: #### 5 8410-2 ####SARAH Mcknight ([id number])[facility] ([facility])[address] [place] [address] MCHC (RBC) [Mass/Vol] 32.6 g/dL Normal 32.0-36.0 [facility] Comment on above: Performed By: #### 5 8410-2 ####SARAH Mcknight ([id number])[facility] ([facility])[address] [place] [address] MCV (RBC) [Entitic vol] 92 fL Normal 80-100 [facility] Comment on above: Performed By: #### 5 8410-2 ####SARAH Mcknight ([id number])[facility] ([facility])[address] [place] [address] Nucleated RBC/100 WBC (Bld) [Ratio] 0.0 /100 WBCs Normal 0.0-0.0 [facility] Comment on above: Performed By: #### 5 8410-2 ####SARAH Mcknight ([id number])[facility] ([facility])[address] [place] [address] Platelets (Bld) [#/Vol] 144 x10*3/uL Low 150-450 [facility] Comment on above: Performed By: #### 5 8410-2 ####SARAH Mcknight ([id number])[facility] ([facility])[address] [place] [address] RBC (Bld) [#/Vol] 2.94 x10*6/uL Low 4.50-5.90 [facility] Comment on above: Performed By: #### 5 8410-2 ####SARAH Mcknight ([id number])[facility] ([facility])[address] [place] [address] WBC (Bld) [#/Vol] 13.2 x10*3/uL High 4.4-11.3 [facility] Comment on above: Performed By: #### 5 8410-2 ####SARAH Mcknight ([id number])[facility] ([facility])[address] [place] [address] Calcium, ionizedon Calcium.ionized (Bld) [Moles/Vol] 1.64 mmol/L High 1.1 - 1.33 mmol/L [facility] Calcium.ionizedon 04-01-2024 Calcium.ionized (Bld) [Moles/Vol] 1.64 mmol/L High 1.1-1.33 [facility] Comment on above: Result Comment: The performance characteristics of ionized calcium testedin heparinized plasma or serum have been validated [facility].Testing on heparinized plasma or serum is not approved bythe FDA; however, such approval is not necessary. Performed By: #### 1 994-3 ####SARAH Mcknight ([id number])[facility] ([facility])[address] [place] [address] Calcium.ionized (Bld) [Moles /Vol]on 06-14-2023 Interpretation and review of laboratory results Abnormal [facility] Comprehensive metabolic 2000 panelon 06-14-2023 Albumin BCP dye [Mass/Vol] 2.1 g/dL Low 3.4-5.0 [facility] Comment on above: Performed By: #### 2 4323-8 ####SARAH Mcknight ([id number])[facility] ([facility])[address] [place], [place] [address] Performed By: #### 2 4325-3 ####SARAH Mcknight ([id number])[facility] ([facility])[address] [place], [place] [address] ALP [Catalytic activity/Vol] 76 U/L Normal 33-136 [facility] Comment on above: Performed By: #### 2 4323-8 ####SARAH Mcknight ([id number])[facility] ([facility])[address] [place] [address] Performed By: #### 2 4325-3 ####SARAH Mcknight ([id number])[facility] ([facility])[address] [place] [address] ALT With P-5'-P [Catalytic activity/Vol] 8 U/L Low 10-52 [facility] Comment on above: Result Comment: Aneta ents treated with Sulfasalazine may generate falsely decreased results for ALT. Performed By: #### 2 4323-8 ####SARAH Mcknight ([id number])[facility] ([facility])[address] [place] [address] Performed By: #### 2 4325-3 ####SARAH Mcknight ([id number])[facility] ([facility])[address] [place] [address] Anion gap [Moles/Vol] 13 mmol/L Normal 10-20 [facility] Comment on above: Performed By: #### 2 4323-8 ####SARAH Mcknight ([id number])[facility] ([facility])[address] [place] [address] AST With P-5'-P [Catalytic activity/Vol] 13 U/L Normal 9-39 [facility] Comment on above: Performed By: #### 2 4323-8 ####SARAH Mcknight ([id number])[facility] ([facility])[address] [place] [address] Performed By: #### 2 4325-3 ####SARAH Mcknight ([id number])[facility] ([facility])[address] [place] [address] Bilirubin [Mass/Vol] 0.9 mg/dL Normal 0.0-1.2 [facility] Comment on above: Performed By: #### 2 4323-8 ####SARAH Mcknight ([id number])[facility] ([facility])[address] [place] [address] Performed By: #### 2 4325-3 ####SARAH Mcknight ([id number])[facility] ([facility])[address] [place] [address] Calcium [Mass/Vol] 9.7 mg/dL Normal 8.6-10.6 [facility] Comment on above: Performed By: #### 2 4323-8 ####SARAH Mcknight ([id number])[facility] ([facility])[address] [place] [address] Chloride [Moles/Vol] 108 mmol/L High 98-107 [facility] Comment on above: Performed By: #### 2 4323-8 ####SARAH Mcknight ([id number])[facility] ([facility])[address] [place] [address] CO2 [Moles/Vol] 19 mmol/L Low 21-32 [facility] Comment on above: Performed By: #### 2 4323-8 ####SARAH Mcknight ([id number])[facility] ([facility])[address] [place] [address] Creatinine [Mass/Vol] 0.65 mg/dL Normal 0.50-1.30 [facility] Comment on above: Performed By: #### 2 4323-8 ####SARAH Mcknight ([id number])[facility] ([facility])[address] [place] [address] GFR/1.73 sq M.predicted MDRD (S/P/Bld) [Vol rate/Area] mL/min/{1.73_m2} Normal >60 [facility] Comment on above: Result Comment: Calc ulations of estimated GFR are performed using the 2020 CKD-EPI Study Refit equation without the race variable for the IDMS-Traceable creatinine methods.https://jasn.asnjournals.org/content//A SN.0938876764 Performed By: #### 2 4323-8 ####SARAH Mcknight ([id number])[facility] ([facility])[address] [place] [address] Glucose [Mass/Vol] 75 mg/dL Normal 74-99 [facility] Comment on above: Performed By: #### 2 4323-8 ####SARAH Mcknight ([id number])[facility] ([facility])[address] [place] [address] Potassium [Moles/Vol] 4.4 mmol/L Normal 3.5-5.3 [facility] Comment on above: Performed By: #### 2 4323-8 ####SARAH Mcknight ([id number])[facility] ([facility])[address] [place] [address] Protein [Mass/Vol] 4.0 g/dL Low 6.4-8.2 [facility] Comment on above: Performed By: #### 2 4323-8 ####SARAH Mcknight ([id number])[facility] ([facility])[address] [place] [address] Performed By: #### 2 4325-3 ####SARAH Mcknight ([id number])[facility] ([facility])[address] [place] [address] Sodium [Moles/Vol] 136 mmol/L Normal 136-145 [facility] Comment on above: Performed By: #### 2 4323-8 ####SARAH Mcknight ([id number])[facility] ([facility])[address] [place] [address] Urea nitrogen [Mass/Vol] 18 mg/dL Normal 6-23 [facility] Comment on above: Performed By: #### 2 4323-8 ####SARAH Mcknight ([id number])[facility] ([facility])[address] [place] [address] ECG 12-LEADon 06-14-2023 ECG 12-LEAD Ventricular Rate 101 Atrial Rate 101 P-R Interval 136 QRS Duration 90 Q-T Interval 330 QTC Calculation(Bazett) 427 P [place] 40 R [place] 17 T [place] 43 QRS Count 17 Q Onset 216 P Onset 148 P Offset 203 T Offset 381 QTC Fredericia 392 Diagnosis Sinus tachycardia Otherwise normal ECG When compared with ECG of 14-JUN-2023 09:12, Premature ventricular complexes are no longer Present Confirmed by Handy Dangelo ([id number]) on 06/14/2023 10:47:38 AM Normal [facility] ECG 12-LEAD Ventricular Rate 106 Atrial Rate 106 P-R Interval 136 QRS Duration 88 Q-T Interval 312 QTC Calculation(Bazett) 414 P [place] 45 R [place] 31 T [place] 42 QRS Count 18 Q Onset 221 P Onset 153 P Offset 204 T Offset 377 QTC Fredericia 377 Diagnosis Sinus tachycardia with occasional Premature ventricular complexes Otherwise normal ECG When compared with ECG of 14-JUN-2023 09:11, No significant change was found Confirmed by Handy Dangelo ([id number]) on 06/14/2023 10:48:30 AM Normal [facility] ECG 12-LEAD Ventricular Rate 147 Atrial Rate 147 P-R Interval 142 QRS Duration 84 Q-T Interval 242 QTC Calculation(Bazett) 378 P [place] 54 R [place] 50 T [place] 85 QRS Count 24 Q Onset 218 P Onset 147 P Offset 203 T Offset 339 QTC Fredericia 326 Diagnosis Sinus tachycardia Otherwise normal ECG When compared with ECG of 14-JUN-2023 02:49, No significant change was found Confirmed by Handy Dangelo ([id number]) on 06/14/2023 10:49:39 AM Normal [facility] Electrocardiogram, 12-lead P RN ACS symptomson 06-14-2023 Atrial Rate 147 BPM [facility] Work Phone: P [place] 54 degrees [facility] Work Phone: [phone] P Offset 203 ms [facility] Work Phone: [phone] P Onset 147 [facility] Work Phone: [phone] [place] Interval 142 ms [facility] Work Phone: [phone] Q Onset 218 ms [facility] Work Phone: [phone] QRS Count 24 beats [facility] Work Phone: [phone] QRS Duration 84 ms [facility] Work Phone: [phone] QT Interval 242 ms [facility] Work Phone: [phone] QTC Calculation(Bazett) 378 ms [facility] Work Phone: [phone] QTC Fredericia 326 ms [facility] Work Phone: [phone] R [place] 50 degrees [facility] Work Phone: [phone] T [place] 85 degrees [facility] Work Phone: [phone] T Offset 339 ms [facility] Work Phone: [phone] Ventricular Rate 147 BPM [facility] Work Phone: [phone] [facility] Work Phone: [phone] [facility] Work Phone: [phone] [facility] Work Phone: [phone] Atrial Rate 101 BPM [facility] Work Phone: [phone] P [place] 40 degrees [facility] Work Phone: [phone] [place] Interval 136 ms [facility] Work Phone: [phone] QRS Duration 90 ms [facility] Work Phone: [phone] QT Interval 330 ms [facility] Work Phone: [phone] QTC Calculation(Bazett) 427 [facility] Work Phone: [phone] R [place] 17 degrees [facility] Work Phone: [phone] T [place] 43 degrees [facility] Work Phone: [phone] Ventricular Rate 101 BPM [facility] Work Phone: [phone] Electrocardiogram, 12-lead P RN ACS symptomsOrdered By: Handy Dangelo on 06-14-2023 Atrial Rate 106 BPM [facility] Work Phone: [phone] P [place] 45 degrees [facility] Work Phone: [phone] P Offset 204 [facility] Work Phone: [phone] P Onset 153 [facility] Work Phone: [phone] [place] Interval 136 [facility] Work Phone: [phone] Q Onset 221 [facility] Work Phone: [phone] QRS Count 18 beats [facility] Work Phone: [phone] QRS Duration 88 ms [facility] Work Phone: [phone] QT Interval 312 ms [facility] Work Phone: [phone] QTC Calculation(Bazett) 414 [facility] Work Phone: QTC Fredericia 377 ms [facility] Work Phone: [phone] R [place] 31 degrees [facility] Work Phone: [phone] T [place] 42 degrees [facility] Work Phone: [phone] T Offset 377 ms [facility] Work Phone: [phone] Ventricular Rate 106 B[facility]: [phone] [facility] Work Phone: [phone] and Carbon monoxide and Electrolytes panel (BldA)on 06-14-2023 Anion gap 4 (BldA) [Moles/Vol] 7 Low [facility] Base excess Calc (Bld) [Moles/Vol] -3.2000 mmol/L Low -2.0 - 3.0 mmol/L [facility] Calcium.ionized (BldA) [Moles/Vol] 1.63 mmol/L High 1.10 - 1.33 mmol/L [facility] Chloride (BldA) [Moles/Vol] 106 mmol/L 98 - 107 mmol/L [facility] CO2 (Bld) [Partial pressure] 33 mm[Hg] Low [facility] Glucose [Mass/Vol] 90 mg/dL 74 - 99 mg/dL [facility] HCO3 (Bld) [Moles/Vol] 20.9 mmol/L Low 22.0 - 26.0 mmol/L [facility] Hematocrit Est (Bld) [Volume fraction] 27.0 % Low 41.0 - 52.0 % [facility] Hemoglobin (Bld) [Mass/Vol] 9.1 g/dL Low 13.5 - 17.5 g/dL [facility] Inhaled oxygen concentration 21 % [facility] Interpretation and review of laboratory results Abnormal [facility] Lactate (BldA) [Moles/Vol] 0.8 mmol/L 0.4 - 2.0 mmol/L [facility] Oxygen (Bld) [Partial pressure] 80 mm[Hg] Low [facility] Oxyhemoglobin (BldA) [Mass fraction] 95.2 % 94.0 - 98.0 % [facility] pH (Bld) 7.41 [pH] 7.38 - 7.42 pH [facility] Potassium (BldA) [Moles/Vol] 4.5 mmol/L 3.5 - 5.3 mmol/L [facility] Sodium (BldA) [Moles/Vol] 129 mmol/L Low 136 - 145 mmol/L [facility] Anion gap 4 (BldA) [Moles/Vol] 7 mmo/L Low 10-25 [facility] Comment on above: Performed By: #### 9 3685-6 ####SARAH Mcknight ([id number])[facility] ([facility])[address] [place] [address] Base excess Calc (Bld) [Moles/Vol] -3.2000 mmol/L Low -2.0-3.0 [facility] Comment on above: Performed By: #### 9 3685-6 ####SARAH Mcknight ([id number])[facility] ([facility])[address] [place] [address]116 Calcium.ionized (BldA) [Moles/Vol] 1.63 mmol/L High 1.10-1.33 [facility] Comment on above: Performed By: #### 9 3685-6 ####SARAH Mcknight ([id number])[facility] ([facility])[address] [place] [address] 37284 Chloride (BldA) [Moles/Vol] 106 mmol/L Normal 98-107 [facility] Comment on above: Performed By: #### 9 3685-6 ####SARAH Mcknight ([id number])[facility] ([facility])[address] [place] [address] 65564 CO2 (Bld) [Partial pressure] 33 mm Hg Low 38-42 [facility] Comment on above: Performed By: #### 9 3685-6 ####SARAH Mcknight ([id number])[facility] ([facility])[id number] [place] [address] 59668 Glucose [Mass/Vol] 90 mg/dL Normal 74-99 [facility] Comment on above: Performed By: #### 9 3685-6 ####SARAH Mcknight ([id number])[facility] ([facility])[address] [place] [address] HCO3 (Bld) [Moles/Vol] 20.9 mmol/L Low 22.0-26.0 [facility] Comment on above: Performed By: #### 9 3685-6 ####SARAH Mcknight ([id number])[facility] ([facility])[address] [place] [address] Hematocrit Est (Bld) [Volume fraction] 27.0 % Low 41.0-52.0 [facility] Comment on above: Performed By: #### 9 3685-6 ####SARAH Mcknight ([id number])[facility] ([facility])[address] [place] [address] Hemoglobin (Bld) [Mass/Vol] 9.1 g/dL Low 13.5-17.5 [facility] Comment on above: Performed By: #### 9 3685-6 ####SARAH Mcknight ([id number])[facility] ([facility])[address] [place] [address] Inhaled oxygen concentration 21 % Normal [facility] Comment on above: Performed By: #### 9 3685-6 ####SARAH Mcknight ([id number])[facility] ([facility])[address] [place] [address] Lactate (BldA) [Moles/Vol] 0.8 mmol/L Normal 0.4-2.0 [facility] Comment on above: Performed By: #### 9 3685-6 ####SARAH Mcknight ([id number])[facility] ([facility])[address] [place] [address] Oxygen (Bld) [Partial pressure] 80 mm Hg Low 85-95 [facility] Comment on above: Performed By: #### 9 3685-6 ####SARAH Mcknight ([id number])[facility] ([facility])[address] [place] [address] Oxyhemoglobin (BldA) [Mass fraction] 95.2 % Normal 94.0-98.0 [facility] Comment on above: Performed By: #### 9 3685-6 ####SARAH Mcknight ([id number])[facility] ([facility])[address] [place] [address] pH (Bld) 7.41 [pH] Normal 7.38-7.42 [facility] Comment on above: Performed By: #### 9 3685-6 ####SARAH Mcknight ([id number])[facility] ([facility])[address] [place] [address] 90598 Potassium (BldA) [Moles/Vol] 4.5 mmol/L Normal 3.5-5.3 [facility] Comment on above: Performed By: #### 9 3685-6 ####SARAH Mcknight ([id number])[facility] ([facility])[address] [place] [address] 02427 Sodium (BldA) [Moles/Vol] 129 mmol/L Low 136-145 [facility] Comment on above: Performed By: #### 9 3685-6 ####SARAH Mcknight ([id number])[facility] ([facility])[address] [place] [address] 60929 Anion gap 4 (BldA) [Moles/Vol] 8 Low [facility] Base excess Calc (Bld) [Moles/Vol] -3.9000 mmol/L Low -2.0 - 3.0 mmol/L [facility] Calcium.ionized (BldA) [Moles/Vol] 1.65 mmol/L High 1.10 - 1.33 mmol/L [facility] Chloride (BldA) [Moles/Vol] 105 mmol/L 98 - 107 mmol/L [facility] CO2 (Bld) [Partial pressure] 34 mm[Hg] Low [facility] Glucose [Mass/Vol] 96 mg/dL 74 - 99 mg/dL [facility] HCO3 (Bld) [Moles/Vol] 20.6 mmol/L Low 22.0 - 26.0 mmol/L [facility] Hematocrit Est (Bld) [Volume fraction] 27.0 % Low 41.0 - 52.0 % [facility] Hemoglobin (Bld) [Mass/Vol] 8.9 g/dL Low 13.5 - 17.5 g/dL [facility] Inhaled oxygen concentration 21 % [facility] Interpretation and review of laboratory results Abnormal [facility] Lactate (BldA) [Moles/Vol] 1.0 mmol/L 0.4 - 2.0 mmol/L [facility] Oxygen (Bld) [Partial pressure] 76 mm[Hg] Low [facility] Oxyhemoglobin (BldA) [Mass fraction] 94.4 % 94.0 - 98.0 % [facility] pH (Bld) 7.39 [pH] 7.38 - 7.42 pH [facility] Potassium (BldA) [Moles/Vol] 4.4 mmol/L 3.5 - 5.3 mmol/L [facility] Sodium (BldA) [Moles/Vol] 129 mmol/L Low 136 - 145 mmol/L [facility] Anion gap 4 (BldA) [Moles/Vol] 8 mmo/L Low 10-25 [facility] Comment on above: Performed By: #### 9 3685-6 ####SARAH Mcknight ([id number])[facility] ([facility])[address] [place] [address]66 Base excess Calc (Bld) [Moles/Vol] -3.9000 mmol/L Low -2.0-3.0 [facility] Comment on above: Performed By: #### 9 3685-6 ####SARAH Mcknight ([id number])[facility] ([facility])[address] [place] [address] 36972 Calcium.ionized (BldA) [Moles/Vol] 1.65 mmol/L High 1.10-1.33 [facility] Comment on above: Performed By: #### 9 3685-6 ####SARAH Mcknight ([id number])[facility] ([facility])[address] [place] [address] Chloride (BldA) [Moles/Vol] 105 mmol/L Normal 98-107 [facility] Comment on above: Performed By: #### 9 3685-6 ####SARAH OMER L ([id number])[facility] ([facility])[address] [place] [address] CO2 (Bld) [Partial pressure] 34 mm Hg Low 38-42 [facility] Comment on above: Performed By: #### 9 3685-6 ####SARAH Mcknight ([id number])[facility] ([facility])[address] [place] [address] Glucose [Mass/Vol] 96 mg/dL Normal 74-99 [facility] Comment on above: Performed By: #### 9 3685-6 ####SARAH OMER L ([id number])[facility] ([facility])[address] [place] [address] 35696 HCO3 (Bld) [Moles/Vol] 20.6 mmol/L Low 22.0-26.0 [facility] Comment on above: Performed By: #### 9 3685-6 ####SARAH OMER L ([id number])[facility] ([facility])[address] [place] [address] 13956 Hematocrit Est (Bld) [Volume fraction] 27.0 % Low 41.0-52.0 [facility] Comment on above: Performed By: #### 9 3685-6 ####SARAH OMER L ([id number])[facility] ([facility])[address] [place] [address] Hemoglobin (Bld) [Mass/Vol] 8.9 g/dL Low 13.5-17.5 [facility] Comment on above: Performed By: #### 9 3685-6 ####SARAH OMER L ([id number])[facility] ([facility])[address] [place] [address] 88635 Inhaled oxygen concentration 21 % Normal [facility] Comment on above: Result Comment: room air Performed By: #### 9 3685-6 ####SARAH Mcknight ([id number])[facility] ([facility])[address] [place] [address] Lactate (BldA) [Moles/Vol] 1.0 mmol/L Normal 0.4-2.0 [facility] Comment on above: Performed By: #### 9 3685-6 ####SARAH Mcknight ([id number])[facility] ([facility])[address] [place] [address] Oxygen (Bld) [Partial pressure] 76 mm Hg Low 85-95 [facility] Comment on above: Performed By: #### 9 3685-6 ####SARAH Mcknight ([id number])[facility] ([facility])[address] [place] [address] Oxyhemoglobin (BldA) [Mass fraction] 94.4 % Normal 94.0-98.0 [facility] Comment on above: Performed By: #### 9 3685-6 ####SARAH Mcknight ([id number])[facility] ([facility])[address] [place] [address] pH (Bld) 7.39 [pH] Normal 7.38-7.42 [facility] Comment on above: Performed By: #### 9 3685-6 ####SARAH Mcknight ([id number])[facility] ([facility])[address] [place] [address] Potassium (BldA) [Moles/Vol] 4.4 mmol/L Normal 3.5-5.3 [facility] Comment on above: Performed By: #### 9 3685-6 ####SARAH Mcknight ([id number])[facility] ([facility])[address] [place] [address] Sodium (BldA) [Moles/Vol] 129 mmol/L Low 136-145 [facility] Comment on above: Performed By: #### 9 3685-6 ####SARAH NEGRA Mcknight ([id number])[facility] ([facility])[address] [place] [address] Anion gap 4 (BldA) [Moles/Vol] 8 Low [facility] Base excess Calc (Bld) [Moles/Vol] -2.3000 mmol/L Low -2.0 - 3.0 mmol/L [facility] Calcium.ionized (BldA) [Moles/Vol] 1.52 mmol/L High 1.10 - 1.33 mmol/L [facility] Chloride (BldA) [Moles/Vol] 106 mmol/L 98 - 107 mmol/L [facility] CO2 (Bld) [Partial pressure] 31 mm[Hg] Low [facility] Glucose [Mass/Vol] 97 mg/dL 74 - 99 mg/dL [facility] HCO3 (Bld) [Moles/Vol] 21.5 mmol/L Low 22.0 - 26.0 mmol/L [facility] Hematocrit Est (Bld) [Volume fraction] 19.0 % Low 41.0 - 52.0 % [facility] Hemoglobin (Bld) [Mass/Vol] 6.2 g/dL Critically low 13.5 - 17.5 g/dL [facility] Inhaled oxygen concentration 21 % [facility] Interpretation and review of laboratory results Abnormal [facility] Lactate (BldA) [Moles/Vol] 1.2 mmol/L 0.4 - 2.0 mmol/L [facility] Oxygen (Bld) [Partial pressure] 59 mm[Hg] Low [facility] Oxyhemoglobin (BldA) [Mass fraction] 94.7 % 94.0 - 98.0 % [facility] pH (Bld) 7.45 [pH] High 7.38 - 7.42 pH [facility] Potassium (BldA) [Moles/Vol] 4.5 mmol/L 3.5 - 5.3 mmol/L [facility] Sodium (BldA) [Moles/Vol] 131 mmol/L Low 136 - 145 mmol/L [facility] Anion gap 4 (BldA) [Moles/Vol] 8 mmo/L Low 10-25 [facility] Comment on above: Performed By: #### 9 3685-6 ####SARAH Mcknight ([id number])[facility] ([facility])[address] [place] [address] Base excess Calc (Bld) [Moles/Vol] -2.3000 mmol/L Low -2.0-3.0 [facility] Comment on above: Performed By: #### 9 3685-6 ####SARAH Mcknight ([id number])[facility] ([facility])[address] [place] [address] Calcium.ionized (BldA) [Moles/Vol] 1.52 mmol/L High 1.10-1.33 [facility] Comment on above: Performed By: #### 9 3685-6 ####SARAH Mcknight (40119)[facility] ([facility])[address] [place] [address] Chloride (BldA) [Moles/Vol] 106 mmol/L Normal 98-107 [facility] Comment on above: Performed By: #### 9 3685-6 ####SARAH cMknight (97009)[facility] ([facility])[address] [place] [address] CO2 (Bld) [Partial pressure] 31 mm Hg Low 38-42 [facility] Comment on above: Performed By: #### 9 3685-6 ####SARAH Mcknight (86503)[facility] ([facility])[address] [place] [address] Glucose [Mass/Vol] 97 mg/dL Normal 74-99 [facility] Comment on above: Performed By: #### 9 3685-6 ####SARAH Mcknight (25198)[facility] ([facility])[address] [place] [address]287 HCO3 (Bld) [Moles/Vol] 21.5 mmol/L Low 22.0-26.0 [facility] Comment on above: Performed By: #### 9 3685-6 ####SARAH Mcknight ([id number])[facility] ([facility])[address] [place] [address] Hematocrit Est (Bld) [Volume fraction] 19.0 % Low 41.0-52.0 [facility] Comment on above: Performed By: #### 9 3685-6 ####SARAH Mcknight (28897)[facility] ([facility])[address] [place] [address] Hemoglobin (Bld) [Mass/Vol] 6.2 g/dL Critically low 13.5-17.5 [facility] Comment on above: Performed By: #### 9 3685-6 ####SARAH Mcknight (75794)[facility] ([facility])[address] [place] [address] 98683 Inhaled oxygen concentration 21 % Normal [facility] Comment on above: Result Comment: room air Performed By: #### 9 2995-6 ####SARAH Mcknight (34071)[facility] ([facility])[address] [place] [address] Lactate (BldA) [Moles/Vol] 1.2 mmol/L Normal 0.4-2.0 [facility] Comment on above: Performed By: #### 9 3685-6 ####SARAH Mcknight (40643)[facility] ([facility])[address] [place] [address] Oxygen (Bld) [Partial pressure] 59 mm Hg Low 85-95 [facility] Comment on above: Performed By: #### 9 3685-6 ####SARAH Mcknight (47236)[facility] ([facility])[address] [place] [address] Oxyhemoglobin (BldA) [Mass fraction] 94.7 % Normal 94.0-98.0 [facility] Comment on above: Performed By: #### 9 3685-6 ####SARAH Mcknight (60373)[facility] ([facility])[address] [place] [address] pH (Bld) 7.45 [pH] High 7.38-7.42 [facility] Comment on above: Performed By: #### 9 3685-6 ####SARAH Mcknight (74875)[facility] ([facility])[address] [place] [address] Potassium (BldA) [Moles/Vol] 4.5 mmol/L Normal 3.5-5.3 [facility] Comment on above: Performed By: #### 9 3685-6 ####SARAH Mcknight (50734)[facility] ([facility])[address] [place] [address] Sodium (BldA) [Moles/Vol] 131 mmol/L Low 136-145 [facility] Comment on above: Performed By: #### 9 3685-6 ####SARAH Mcknight (65787)[facility] ([facility])[address] [place] [address]23[address] Glucose Test strip manual (B ld) [Mass/Vol]on 06-14-2023 Glucose [Mass/Vol] 95 mg/dL 74 - 99 mg/dL [facility] Interpretation and review of laboratory results Normal [facility] Glucose [Mass/Vol] 95 mg/dL Normal 74-99 [facility] Comment on above: Performed By: #### 2 341-6 ####SARAH Mcknight (48841)[facility] ([facility])[address] [place] [address] 91931 Glucose [Mass/Vol] 92 mg/dL 74 - 99 mg/dL [facility] Interpretation and review of laboratory results Normal [facility] Glucose [Mass/Vol] 92 mg/dL Normal 74-99 [facility] Comment on above: Performed By: #### 2 341-6 ####SARAH Mcknight ([id number])[facility] ([facility])[address] [place] [address] Glucose [Mass/Vol] 76 mg/dL 74 - 99 mg/dL [facility] Interpretation and review of laboratory results Normal [facility] Glucose [Mass/Vol] 76 mg/dL Normal 74-99 [facility] Comment on above: Performed By: #### 2 341-6 ####SARAH OMER L ([id number])[facility] ([facility])[address] [place] [address] Glucose [Mass/Vol] 92 mg/dL Normal 74-99 [facility] Comment on above: Performed By: #### 2 341-6 ####SARAH Mcknight ([id number])[facility] ([facility])[address] [place] [address] Hepatic function 2000 panelo n 06-14-2023 Bilirubin.direct [Mass/Vol] 0.4 mg/dL High 0.0-0.3 [facility] Comment on above: Performed By: #### 2 4325-3 ####SARAH Mcknight (77955)[facility] ([facility])[address] [place] [address] Lactateon 06-14-2023 Lactate [Moles/Vol] 1.2 mmol/L 0.4 - 2. 0 mmol/L [facility] Lactate [Moles/Vol] 1.2 mmol/L Normal 0.4-2.0 [facility] Comment on above: Order Comment: Venip uncture immediately after or during the administration of Metamizole may lead to falsely low results. Testing should be performed immediatelyprior to Metamizole dosing. Performed By: #### 2 524-7 ####SARAH OMER L ([id number])[facility] ([facility])[address] [place] [address] Lactate [Moles/Vol] 2.7 mmol/L High 0.4-2.0 [facility] Comment on above: Order Comment: Venip uncture immediately after or during the administration of Metamizole may lead to falsely low results. Testing should be performed immediatelyprior to Metamizole dosing. Performed By: #### 2 524-7 ####SARAH Mcknight ([id number])[facility] ([facility])[address] [place] [address] Lactate [Moles/Vol] 2.9 mmol/L High 0.4-2.0 [facility] Comment on above: Order Comment: Venip uncture immediately after or during the administration of Metamizole may lead to falsely low results. Testing should be performed immediatelyprior to Metamizole dosing. Performed By: #### 2 524-7 ####SARAH Mcknight ([id number])[facility] ([facility])[address] [place] [address] Lactate [Moles/Vol] 0.6 mmol/L Normal 0.4-2.0 [facility] Comment on above: Order Comment: Venip uncture immediately after or during the administration of Metamizole may lead to falsely low results. Testing should be performed immediatelyprior to Metamizole dosing. Performed By: #### 2 524-7 ####SARAH Mcknight ([id number])[facility] ([facility])[address] [place] [address] Lactate [Moles/Vol]on 2023 Interpretation and review of laboratory results [facility] Magnesiumon 06-14-2023 Magnesium [Mass/Vol] 1.98 mg/dL 1.60 - 2.40 mg/dL [facility] Magnesium [Mass/Vol] 1.98 mg/dL Normal 1.60-2.40 [facility] Comment on above: Performed By: #### 1 9123-9 ####SARAH Mcknight ([id number])[facility] ([facility])[address] [place] [address] Magnesium [Mass/Vol] 1.04 mg/dL Low 1.60-2.40 [facility] Comment on above: Performed By: #### 1 9123-9 ####SARAH Mcknight ([id number])[facility] ([facility])[address] [place] [address] Magnesium [Mass/Vol]on 06-13 Interpretation and review of laboratory results Normal [facility] Manual differential performe d Ql (Bld)Ordered By: Alka Cabello on 06-14-2023 Basophilic stippling LM Ql (Bld) Present [facility] Basophils (Bld) [#/Vol] 0.02 10*3/uL [facility] Basophils/100 WBC (Bld) 0.2 % 0.0 - 2.0 % [facility] Harriett cells LM Ql (Bld) [facility] Total (Bld) [#] 100 {cells} [facility] Eosinophils (Bld) [#/Vol] 0.00 10*3/uL [facility] Eosinophils/100 WBC (Bld) 0.0 % 0.0 - 6.0 % [facility] Interpretation and review of laboratory results Abnormal [facility] Lymphocytes (Bld) [#/Vol] 0.21 10*3/uL Low [facility] Lymphocytes/100 WBC (Bld) 2.1 % 13.0 - 44.0 % [facility] Monocytes (Bld) [#/Vol] 0.05 10*3/uL Low [facility] Monocytes/100 WBC (Bld) 0.5 % 2.0 - 10.0 % [facility] RBC morphology finding Nom (Bld) See Below [facility] Segmented neutrophils (Bld) [#/Vol] 9.69 10*3/uL High [facility] Segmented neutrophils/100 WBC (Bld) 96.9 % 40.0 - 80.0 % [facility] Manual differential performe d Ql (Bld)on 06-14-2023 Basophilic stippling LM Ql (Bld) Present Normal [facility] Comment on above: Performed By: #### 5 0957-0 ####SARAH Mcknight ([id number])[facility] ([facility])[address] [place] [address] Basophils (Bld) [#/Vol] 0.02 x10*3/uL Normal 0.00-0.10 [facility] Comment on above: Performed By: #### 5 0957-0 ####SARAH Mcknight (74086)[facility] ([facility])[address] [place] [address] Basophils/100 WBC (Bld) 0.2 % Normal 0.0-2.0 [facility] Comment on above: Performed By: #### 5 0957-0 ####SARAH Mcknight ([id number])[facility] ([facility])[address] [place] [address] Harriett cells LM Ql (Bld) Many Normal [facility] Comment on above: Performed By: #### 5 0957-0 ####SARAH Mcknight ([id number])[facility] ([facility])[address] [place] [address] Cells Counted Total (Bld) [#] 100 Normal [facility] Comment on above: Performed By: #### 5 0957-0 ####SARAH Mcknight ([id number])[facility] ([facility])[address] [place] [address] Eosinophils (Bld) [#/Vol] 0.00 x10*3/uL Normal 0.00-0.70 [facility] Comment on above: Performed By: #### 5 0957-0 ####SARAH Mcknight (65555)[facility] ([facility])[address] [place] [address] Eosinophils/100 WBC (Bld) 0.0 % Normal 0.0-6.0 [facility] Comment on above: Performed By: #### 5 0957-0 ####SARAH Mcknight (77761)[facility] ([facility])[address] [place] [address] Lymphocytes (Bld) [#/Vol] 0.21 x10*3/uL Low 1.20-4.80 [facility] Comment on above: Performed By: #### 5 0957-0 ####SARAH Mcknight (50732)[facility] ([facility])[address] [place] [address] Lymphocytes/100 WBC (Bld) 2.1 % Normal 13.0-44.0 [facility] Comment on above: Performed By: #### 5 0957-0 ####SARAH Mcknight ([id number])[facility] ([facility])[address] [place] [address] Monocytes (Bld) [#/Vol] 0.05 x10*3/uL Low 0.10-1.00 [facility] Comment on above: Performed By: #### 5 0957-0 ####SARAH Mcknight ([id number])[facility] ([facility])[address] [place] [address] Monocytes/100 WBC (Bld) 0.5 % Normal 2.0-10.0 [facility] Comment on above: Performed By: #### 5 0957-0 ####SARAH Mcknight (10610)[facility] ([facility])[address] [place] [address] RBC morphology finding Nom (Bld) See Below Normal [facility] Comment on above: Performed By: #### 5 0957-0 ####SARAH Mcknight (60198)[facility] ([facility])[address] [place] [address] Segmented neutrophils (Bld) [#/Vol] 9.69 x10*3/uL High 1.20-7.00 [facility] Comment on above: Performed By: #### 5 0957-0 ####SARAH Mcknight (90779)[facility] ([facility])[address] [place] [address] Segmented neutrophils/100 WBC (Bld) 96.9 % Normal 40.0-80.0 [facility] Comment on above: Result Comment: WBC: Vacuolated Neutrophils PresentPercent differential counts (%) should be interpreted in the context of the absolute cell counts (cells/uL). Performed By: #### 5 0957-0 ####SARAH Mcknight ([id number])[facility] ([facility])[address] [place], [place] [address] No Panel Informationon 06-13 [facility] PT and aPTT panel Coag (PPP) on 06-14-2023 aPTT Coag (PPP) [Time] 32 s Normal 27-38 [facility] Comment on above: Order Comment: The A PTT is no longer used for monitoring Unfractionated Heparin Therapy. For monitoring Heparin Therapy, use the Heparin Assay. Performed By: #### 3 4529-8 ####SARAH Mcknight ([id number])[facility] ([facility])[address] [place] [address] INR Coag (PPP) [Relative time] 2.2 High 0.9-1.1 [facility] Comment on above: Order Comment: The A PTT is no longer used for monitoring Unfractionated Heparin Therapy. For monitoring Heparin Therapy, use the Heparin Assay. Performed By: #### 3 4529-8 ####SARAH Mcknight ([id number])[facility] ([facility])[address] [place], [place] [address] PT Coag (PPP) [Time] 25.1 s High 9.8-12.8 [facility] Comment on above: Order Comment: The A PTT is no longer used for monitoring Unfractionated Heparin Therapy. For monitoring Heparin Therapy, use the Heparin Assay. Performed By: #### 3 4529-8 ####SARAH Mcknight ([id number])[facility] ([facility])[address] [place], [place] [address] Renal function 2000 panelon 06-14-2023 Albumin BCP dye [Mass/Vol] 2.2 g/dL Low 3.4 - 5.0 g/dL [facility] Anion gap [Moles/Vol] 9 mmol/L Low 10 - 2 0 mmol/L [facility] Calcium [Mass/Vol] 10.1 mg/dL 8.6 - 10. 6 mg/dL [facility] Chloride [Moles/Vol] 105 mmol/L 98 - 10 7 mmol/L [facility] CO2 [Moles/Vol] 22 mmol/L 21 - 32 mmol/L [facility] Creatinine [Mass/Vol] 0.68 mg/dL 0.50 - 1.30 mg/dL [facility] eGFR - PINF [facility] Glucose [Mass/Vol] 96 mg/dL 74 - 99 mg/dL [facility] Interpretation and review of laboratory results Abnormal [facility] Phosphate [Mass/Vol] 2.0 mg/dL Low 2.5 - 4 .9 mg/dL [facility] Potassium [Moles/Vol] 4.3 mmol/L 3.5 - 5.3 mmol/L [facility] Sodium [Moles/Vol] 132 mmol/L Low 136 - 145 mmol/L [facility] Urea nitrogen [Mass/Vol] 21 mg/dL 6 - 23 mg/dL [facility] Albumin BCP dye [Mass/Vol] 2.2 g/dL Low 3.4-5.0 [facility] Comment on above: Performed By: #### 2 4362-6 ####SARAH Mcknight ([id number])[facility] ([facility])[address] [place] [address] Anion gap [Moles/Vol] 9 mmol/L Low 10-20 [facility] Comment on above: Performed By: #### 2 4362-6 ####SARAH Mcknight (83599)[facility] ([facility])[address] [place] [address] Calcium [Mass/Vol] 10.1 mg/dL Normal 8.6-10.6 [facility] Comment on above: Performed By: #### 2 4362-6 ####SARAH Mcknight (35090)[facility] ([facility])[address] [place] [address] Chloride [Moles/Vol] 105 mmol/L Normal 98-107 [facility] Comment on above: Performed By: #### 2 4362-6 ####SARAH Mcknight (24695)[facility] ([facility])[address] [place] [address] CO2 [Moles/Vol] 22 mmol/L Normal 21-32 [facility] Comment on above: Performed By: #### 2 4362-6 ####SARAH Mcknight ([id number])[facility] ([facility])[address] [place] [address] Creatinine [Mass/Vol] 0.68 mg/dL Normal 0.50-1.30 [facility] Comment on above: Performed By: #### 2 4362-6 ####SARAH Mcknight (30198)[facility] ([facility])[address] [place] [address] GFR/1.73 sq M.predicted MDRD (S/P/Bld) [Vol rate/Area] mL/min/{1.73_m2} Normal >60 [facility] Comment on above: Result Comment: Calc ulations of estimated GFR are performed using the 2020 CKD-EPI Study Refit equation without the race variable for the IDMS-Traceable creatinine methods.https://jasn.asnjournals.org/content//A .3368563338 Performed By: #### 2 4362-6 ####SARAH Mcknight ([id number])[facility] ([facility])[address] [place] [address] Glucose [Mass/Vol] 96 mg/dL Normal 74-99 [facility] Comment on above: Performed By: #### 2 4362-6 ####SARAH Mcknight ([id number])[facility] ([facility])[address] [place] [address] Phosphate [Mass/Vol] 2.0 mg/dL Low 2.5-4.9 [facility] Comment on above: Result Comment: The performance characteristics of phosphorus testing in heparinized plasma have been validated by the individual laboratory site where testing is performed. Testing on heparinized plasma is not approved by the FDA; however, such approval is not necessary. Performed By: #### 2 4362-6 ####SARAH Mcknight ([id number])[facility] ([facility])[address] [place] [address] Potassium [Moles/Vol] 4.3 mmol/L Normal 3.5-5.3 [facility] Comment on above: Performed By: #### 2 4362-6 ####SARAH PENALOZAMOTZER L (65346)[facility] ([facility])[address] [place] [address] Sodium [Moles/Vol] 132 mmol/L Low 136-145 [facility] Comment on above: Performed By: #### 2 4362-6 ####SARAH SCHMOTZER L ([id number])[facility] ([facility])[address] [place] [address] Urea nitrogen [Mass/Vol] 21 mg/dL Normal 6-23 [facility] Comment on above: Performed By: #### 2 4362-6 ####SARAH PENALOZAMOTZER L ([id number])[facility] ([facility])[address] [place] [address] TRANSTHORACIC ECHO (TTE) HUDSON ITEDon 06-14-2023 TRANSTHORACIC ECHO (TTE) LIMITED Normal [facility] Tropinin I.cardiac panel Hig h sensitivity methodon 06-14-2023 Interpretation and review of laboratory results Abnormal [facility] Troponin I, High Sensitivity on 06-14-2023 Tropinin I.cardiac panel High sensitivity method 181 ng/L Critically high 0 - 53 ng/L [facility] Troponin I.cardiac panelon 0 06-14-2023 Tropinin I.cardiac panel High sensitivity method 181 ng/L Critically high 0-53 [facility] Comment on above: Order Comment: Less than 99th percentile of normal range cutoff-Female and children under 18 years old <35 ng/L; Male <54 ng/L: NegativeRepeat testing should be performed if clinically indicated.Female and children under 18 years old 35-120 ng/L; Male 54-120 ng/L:Consistent with possible cardiac damage and possible increased clinicalrisk. Serial measurements may help to assess extent of myocardial damage.>120 ng/L: Consistent with cardiac damage, increased clinical risk andmyocardial infarction. Serial measurements may help assess extent ofmyocardial damage.NOTE: Children less than 1 year old may have higher baseline troponinlevels and results should be interpreted in conjunction with the overallclinical context.NOTE: Troponin I testing is performed using a differenttesting methodology at [facility] than at [facility]. Direct result comparisons should onlybe made within the same method. Result Comment: Prev ious result verified on 06/14/2023 0824 on specimen/case [id number] called with component [facility] for procedure Troponin I, High Sensitivity with value 313 ng/L. Performed By: #### 8 9577-1 ####SARAH Mcknight ([id number])[facility] ([facility])[address] [place] [address] Tropinin I.cardiac panel High sensitivity method 313 ng/L Critically high 0-53 [facility] Comment on above: Order Comment: Less than 99th percentile of normal range cutoff-Female and children under 18 years old <35 ng/L; Male <54 ng/L: NegativeRepeat testing should be performed if clinically indicated.Female and children under 18 years old 35-120 ng/L; Male 54-120 ng/L:Consistent with possible cardiac damage and possible increased clinicalrisk. Serial measurements may help to assess extent of myocardial damage.>120 ng/L: Consistent with cardiac damage, increased clinical risk andmyocardial infarction. Serial measurements may help assess extent ofmyocardial damage.NOTE: Children less than 1 year old may have higher baseline troponinlevels and results should be interpreted in conjunction with the overallclinical context.NOTE: Troponin I testing is performed using a differenttesting methodology at [facility] than at [facility]. Direct result comparisons should onlybe made within the same method. Performed By: #### 8 9577-1 ####SARAH Mcknight ([id number])[facility] ([facility])[address] [place] [address] US Abdomen RUQon 06-14-2023 Radiology Study observation (narrative) [facility] Work Phone: US Heart TransthoracicOrdere d By: Cuba Sanches on 06-14-2023 Aortic Valve Area by Continuity of Peak Velocity 2.18 cm2 [facility] Work Phone: Aortic Valve Area by Continuity of VTI 2.32 cm2 [facility] Work Phone: [phone] AV mn grad 10.6 mmHg [facility] Work Phone: [phone] AV pk grad 20.7 mmHg [facility] Work Phone: [phone] AV pk dav 2.27 m/s [facility] Work Phone: [phone] LA vol index A/L 45.8 ml/m2 [facility] Work Phone: [phone] LV A4C EF 59.9 [facility] Work Phone: [phone] LV Biplane EF 57 % [facility] Work Phone: [phone] LVIDd 5.70 cm [facility] Work Phone: [phone] LVOT diam 2.04 cm [facility] Work Phone: [phone] MV E/A ratio 0.96 [facility] Work Phone: [phone] RV free wall pk S' 12.00 cm/s [facility] Work Phone: [phone] Tricuspid annular plane systolic excursion 1.9 cm [facility] Work Phone: [phone] [facility] Work Phone: [phone] US Heart Transthoracicon SYNGO [facility] Work Phone: [phone] US RIGHT UPPER QUADRANTon US RIGHT UPPER QUADRANT Normal [facility] Urine CultureOrdered By: Saurav Khan on 06-14-2023 Bacteria identified Cx Nom (U) No growth [facility] XR CHEST 1 VIEWon 06-14-2023 XR CHEST 1 VIEW Normal [facility] XR Chest Single viewon 06-13 [facility] MMODAL UH MMODAL [facility] Work Phone: [phone] Radiology Study observation (narrative) [facility] Work Phone: XR Chest Single viewOrdered By: Terry Alanisshanita Bueno on 06-14-2023 [facility] Work Phone: BMPon 06-13-2023 Anion gap [Moles/Vol] 13 mmol/L Normal 6-16 [facility] Comment on above: Performed By: #### 2 352826, 99919582, 8408472, 7379887, 7916281, 5509013 ####[facility] [address] [place] [address] Calcium [Mass/Vol] 11.5 mg/dL High 8.9-11.1 [facility] Comment on above: Performed By: #### 2 780150, 66833738, 0983417, 7825929, 0878428, 3390389 ####[facility] [address] [place] [address] Chloride [Moles/Vol] 106 mmol/L Normal 101-111 [facility] Comment on above: Performed By: #### 2 171444, 48780400, 4917572, 1177211, 4653574, 6786714 ####[facility] [address] [place] [address] CO2 [Moles/Vol] 20 mmol/L Low 21-31 [facility] Comment on above: Performed By: #### 2 212136, 42636162, 4993652, 2031977, 3602988, 9121337 ####[facility] [address] [place] [address] Creatinine [Mass/Vol] 0.6 mg/dL Normal 0.5-1.3 [facility] Comment on above: Performed By: #### 2 657767, 19608956, 2017087, 3015698, 3327613, 9725681 ####[facility] [address] [place] [address] Glucose [Mass/Vol] 167 mg/dL Normal 55-199 [facility] Comment on above: Performed By: #### 2 594793, 15855169, 0168446, 7095388, 8381389, 8838337 ####[facility] [address] [place] [address] Potassium [Moles/Vol] 4.0 mmol/L Normal 3.5-5.3 [facility] Comment on above: Performed By: #### 2 715264, 69060638, 2215022, 2888194, 8566059, 1765526 ####[facility] [address] [place] [address] Sodium [Moles/Vol] 135 mmol/L Normal 135-145 [facility] Comment on above: Performed By: #### 2 684717, 75906382, 7979762, 8995803, 6485344, 2253506 ####[facility] [address] [place] [address] Urea nitrogen [Mass/Vol] 20 mg/dL Normal 5-21 [facility] Comment on above: Performed By: #### 2 369856, 53660610, 2617488, 2268242, 0147088, 4643574 ####[facility] [address] [place] [address] Urea nitrogen/Creatinine [Mass ratio] 33 No Units High 10-20 [facility] Comment on above: Performed By: #### 2 748289, 62389373, 6981775, 3838335, 3170847, 8388513 ####[facility] [address] [place] [address] Bacteria identifiedon 2023 Bacteria identified Cx Nom (Bld) Abnormal [facility] Comment on above: Performed By: #### 6 00-7 ####SARAH Mcknight ([id number])[facility] ([facility])[address] [place] [address] Bacteria identified Cx Nom (U) Normal [facility] Comment on above: Performed By: #### 6 30-4 ####SARAH Mcknight ([id number])[facility] ([facility])[address] [place] [address] Basic metabolic 2000 panelon 06-13-2023 Anion gap [Moles/Vol] 14 mmol/L Normal 10-20 [facility] Comment on above: Performed By: #### 2 4321-2 ####SARAH OMER L (81612)[facility] ([facility])[address] [place] [address] Calcium [Mass/Vol] 10.8 mg/dL High 8.6-10.6 [facility] Comment on above: Performed By: #### 2 4321-2 ####SARAH MORENOTZER L (41489)[facility] ([facility])[address] [place] [address] Chloride [Moles/Vol] 105 mmol/L Normal 98-107 [facility] Comment on above: Performed By: #### 2 4321-2 ####SARAH OMER L ([id number])[facility] ([facility])[address] [place] [address] CO2 [Moles/Vol] 18 mmol/L Low 21-32 [facility] Comment on above: Performed By: #### 2 4321-2 ####SARAH OMER L (53154)[facility] ([facility])[address] [place] [address] Creatinine [Mass/Vol] 0.65 mg/dL Normal 0.50-1.30 [facility] Comment on above: Performed By: #### 2 4321-2 ####SARAH OMER L (23249)[facility] ([facility])[address] [place] [address] GFR/1.73 sq M.predicted MDRD (S/P/Bld) [Vol rate/Area] mL/min/{1.73_m2} Normal >60 [facility] Comment on above: Result Comment: Calc ulations of estimated GFR are performed using the 2020 CKD-EPI Study Refit equation without the race variable for the IDMS-Traceable creatinine methods.https://jasn.asnjournals.org/content//A SN.9546604500 Performed By: #### 2 4321-2 ####SARAH Mcknight (94013)[facility] ([facility])[address] [facility] [place] [address] Glucose [Mass/Vol] 111 mg/dL High 74-99 [facility] Comment on above: Performed By: #### 2 4321-2 ####SARAH Mcknight (40830)[facility] ([facility])[address] [place] [address] Potassium [Moles/Vol] 5.1 mmol/L Normal 3.5-5.3 [facility] Comment on above: Performed By: #### 2 4321-2 ####SARAH Mcknight (02104)[facility] ([facility])[address] [place] [address] Sodium [Moles/Vol] 132 mmol/L Low 136-145 [facility] Comment on above: Performed By: #### 2 4321-2 ####SARAH Mcknight (03607)[facility] ([facility])[address] [place] [address] Urea nitrogen [Mass/Vol] 19 mg/dL Normal 6-23 [facility] Comment on above: Performed By: #### 2 4321-2 ####SARAH Mcknight (23943)[facility] ([facility])[address] [facility] [place] [address] Blood type and Indirect anti body screen panel (Bld)on 06-13-2023 ABO group Nom (Bld) A Normal [facility] Comment on above: Performed By: #### 3 4532-2 ####SARAH Mcknight ([id number])[facility] ([facility])[address] [place] [address] Blood group antibody screen Ql Negative [facility] Comment on above: Performed By: #### 3 4532-2 ####SARAH Mcknight (57872)[facility] ([facility])[address] [place] [address] D Ag Ql (Bld) Positive Normal [facility] Comment on above: Performed By: #### 3 4532-2 ####SARAH Mcknight (20858)[facility] ([facility] [place] [address] CBC W Auto Differential pane l (Bld)on 06-13-2023 Basophils (Bld) [#/Vol] 0.02 x10*3/uL Normal 0.00-0.10 [facility] Comment on above: Performed By: #### 5 7021-8 ####SARAH Mcknight (92759)[facility] ([facility])[address] [place] [address] Basophils/100 WBC (Bld) 0.2 % Normal 0.0-2.0 [facility] Comment on above: Performed By: #### 5 7021-8 ####SARAH Mcknight (84797)[facility] ([facility])[address] [place] [address] Eosinophils (Bld) [#/Vol] 0.03 x10*3/uL Normal 0.00-0.70 [facility] Comment on above: Performed By: #### 5 7021-8 ####SARAH Mcknight (54045)[facility] ([facility])[address] [place] [address] Eosinophils/100 WBC (Bld) 0.3 % Normal 0.0-6.0 [facility] Comment on above: Performed By: #### 5 7021-8 ####SARAH Mcknight (53102)[facility] ([facility])[address] [place] [address] Erythrocyte distribution width (RBC) [Ratio] 15.1 % High 11.5-14.5 [facility] Comment on above: Performed By: #### 5 7021-8 ####SARAH Mcknight (78043)[facility] ([facility])[address] [place] [address] Hematocrit (Bld) [Volume fraction] 32.5 % Low 41.0-52.0 [facility] Comment on above: Performed By: #### 5 7021-8 ####SARAH Mcknight (89918)[facility] ([facility])[address] [place] [address] Hemoglobin (Bld) [Mass/Vol] 10.9 g/dL Low 13.5-17.5 [facility] Comment on above: Performed By: #### 5 7021-8 ####SARAH Mcknight (18883)[facility] ([facility])[address] [place] [address] Immature granulocytes (Bld) [#/Vol] 0.03 x10*3/uL Normal 0.00-0.70 [facility] Comment on above: Performed By: #### 5 7021-8 ####SARAH Mcknight (65139)[facility] ([facility])[address] [place] [address] Immature granulocytes/100 WBC (Bld) 0.3 % Normal 0.0-0.9 [facility] Comment on above: Result Comment: Ciera ture Granulocyte Count (IG) includes promyelocytes, myelocytes and metamyelocytes but does not include bands. Percent differential counts (%) should be interpreted in the context of the absolute cell counts (cells/UL). Performed By: #### 5 7021-8 ####SARAH Mcknight ([id number])[facility] ([facility])[address] [place] [address] Lymphocytes (Bld) [#/Vol] 0.79 x10*3/uL Low 1.20-4.80 [facility] Comment on above: Performed By: #### 5 7021-8 ####SARAH Mckngiht (67421)[facility] ([facility])[address] [place] [address] Lymphocytes/100 WBC (Bld) 9.2 % Normal 13.0-44.0 [facility] Comment on above: Performed By: #### 5 7021-8 ####SARAH Mcknight (36751)[facility] [facility] [place] [address] MCH (RBC) [Entitic mass] 29.2 pg Normal 26.0-34.0 [facility] Comment on above: Performed By: #### 5 7021-8 ####SARAH Mcknight ([id number])[facility] ([facility])[address] [place] [address] MCHC (RBC) [Mass/Vol] 33.5 g/dL Normal 32.0-36.0 [facility] Comment on above: Performed By: #### 5 7021-8 ####SARAH Mcknight (11449)[facility] ([facility])[address] [place] [address] MCV (RBC) [Entitic vol] 87 fL Normal 80-100 [facility] Comment on above: Performed By: #### 5 7021-8 ####SARAH Mcknight (20448)[facility] ([facility])[address] [place] [address] Monocytes (Bld) [#/Vol] 0.39 x10*3/uL Normal 0.10-1.00 [facility] Comment on above: Performed By: #### 5 7021-8 ####SARAH Mcknight ([id number])[facility] ([facility])[address] [place] [address] Monocytes/100 WBC (Bld) 4.5 % Normal 2.0-10.0 [facility] Comment on above: Performed By: #### 5 7021-8 ####SARAH Mcknight (81591)[facility] ([facility])[address] [place] [address] Neutrophils (Bld) [#/Vol] 7.34 x10*3/uL Normal 1.20-7.70 [facility] Comment on above: Result Comment: Perc ent differential counts (%) should be interpreted in the context of the absolute cell counts (cells/uL). Performed By: #### 5 7021-8 ####SARAH Mcknight (34321)[facility] ([facility])[address] [place] [address] Neutrophils/100 WBC (Bld) 85.5 % Normal 40.0-80.0 [facility] Comment on above: Performed By: #### 5 7021-8 ####SARAH Mcknight ([id number])[facility] ([facility])[address] [place] [address] Nucleated RBC/100 WBC (Bld) [Ratio] 0.0 /100 WBCs Normal 0.0-0.0 [facility] Comment on above: Performed By: #### 5 7021-8 ####SARAH Mcknight (65863)[facility] ([facility])[address] [place] [address] Platelets (Bld) [#/Vol] 189 x10*3/uL Normal 150-450 [facility] Comment on above: Performed By: #### 5 7021-8 ####SARAH Mcknight (74919)[facility] ([facility])[address] [place] [address] RBC (Bld) [#/Vol] 3.73 x10*6/uL Low 4.50-5.90 [facility] Comment on above: Performed By: #### 5 7021-8 ####SARAH Mcknight (97038)[facility] ([facility])[address] [place] [address] WBC (Bld) [#/Vol] 8.6 x10*3/uL Normal 4.4-11.3 [facility] Comment on above: Performed By: #### 5 7021-8 ####SARAH Mcknight (27324)[facility] ([facility])[address] [place] [address] CBC panel Auto (Bld)on 06-12 Erythrocyte distribution width (RBC) [Ratio] 15.1 % High 11.5-14.5 [facility] Comment on above: Performed By: #### 5 8410-2 ####SARAH Mcknight (67003)[facility] ([facility])[address] [place] [address] Hematocrit (Bld) [Volume fraction] 32.2 % Low 41.0-52.0 [facility] Comment on above: Performed By: #### 5 8410-2 ####SARAH Mcknight (35199)[facility] ([facility])[address] [place] [address] Hemoglobin (Bld) [Mass/Vol] 10.5 g/dL Low 13.5-17.5 [facility] Comment on above: Performed By: #### 5 8410-2 ####SARAH Mcknight (36315)[facility] ([facility])[address] [place] [address] MCH (RBC) [Entitic mass] 29.0 pg Normal 26.0-34.0 [facility] Comment on above: Performed By: #### 5 8410-2 ####SARAH Mcknight (41501)[facility] ([facility])[address] [place] [address] MCHC (RBC) [Mass/Vol] 32.6 g/dL Normal 32.0-36.0 [facility] Comment on above: Performed By: #### 5 8410-2 ####SARAH Mcknight (48315)[facility] ([facility])[address] [place] [address] MCV (RBC) [Entitic vol] 89 fL Normal 80-100 [facility] Comment on above: Performed By: #### 5 8410-2 ####SARAH Mcknight (50376)[facility] ([facility])[address] [place] [address] Nucleated RBC/100 WBC (Bld) [Ratio] 0.0 /100 WBCs Normal 0.0-0.0 [facility] Comment on above: Performed By: #### 5 8410-2 ####SARAH Mcknight (64130)[facility] ([facility])[address] [place] [address] Platelets (Bld) [#/Vol] 216 x10*3/uL Normal 150-450 [facility] Comment on above: Performed By: #### 5 8410-2 ####SARAH Mcknight (79995)[facility] ([facility])[address] [place] [address] RBC (Bld) [#/Vol] 3.62 x10*6/uL Low 4.50-5.90 [facility] Comment on above: Performed By: #### 5 8410-2 ####SARAH Mcknight (94831)[facility] ([facility])[address] [place] [address] WBC (Bld) [#/Vol] 11.8 x10*3/uL High 4.4-11.3 [facility] Comment on above: Performed By: #### 5 8410-2 ####SARAH Mcknight (30902)[facility] ([facility])[address] [place] [address] CBC w/ Auto Diffon 4 Basophils/100 WBC (Bld) 0.3 % Normal 0.0-2.0 [facility] Comment on above: Performed By: #### 2 198264, 57461078, 3753240, 1079093, 7939564, 4177261 ####[facility] [address] [place] [address] Basophils/Leukocytes Auto (Bld) [Pure # fraction] 0.0 E9/L Normal 0.0-0.2 [facility] Comment on above: Performed By: #### 2 736698, 55908918, 0340646, 4308368, 3790788, 6872290 ####[facility] [address] [place] [address] Eosinophils (Bld) [#/Vol] 0.1 E9/L Normal 0.0-0.5 [facility] Comment on above: Performed By: #### 2 036894, 79165828, 4929605, 2212438, 9448430, 6058911 ####[facility] [address] [place] [address] Eosinophils/100 WBC (Bld) 0.6 % Normal 0.0-8.0 [facility] Comment on above: Performed By: #### 2 657884, 32889733, 1766022, 6486118, 1174648, 1251392 ####[address] [place] [address] Erythrocyte distribution width (RBC) [Ratio] 15.3 % High 10.9-14.2 [facility] Comment on above: Performed By: #### 2 105069, 83546884, 2472405, 4828874, 6532984, 8260334 ####[address] [address] Hematocrit (Bld) [Volume fraction] 33.6 % Low 37.7-49.0 [facility] Comment on above: Performed By: #### 2 768534, 88846994, 7031930, 4772265, 5166219, 2830475 ####[address] [address] Hemoglobin (Bld) [Mass/Vol] 11.0 g/dL Low 13.5-17.5 [facility] Comment on above: Performed By: #### 2 494838, 13767306, 7694430, 3260212, 3757708, 2799068 ####[address] [address] Lymphocytes (Bld) [#/Vol] 0.7 E9/L Low 1.0-4.0 [facility] Comment on above: Performed By: #### 2 801013, 20075960, 2494234, 6081530, 6052726, 2103476 ####[address] [address] Lymphocytes/100 WBC (Bld) 6.3 % Low 14.0-50.0 [facility] Comment on above: Performed By: #### 2 874939, 71191337, 2872601, 8193089, 7848705, 7678357 ####[address] [address] MCH (RBC) [Entitic mass] 29.2 pg Normal 27.0-34.0 [facility] Comment on above: Performed By: #### 2 602544, 85122233, 6476992, 3125721, 5809596, 2249714 ####[address] [address] MCHC (RBC) [Mass/Vol] 32.8 g/dL Normal 31.4-36.0 [facility] Comment on above: Performed By: #### 2 982885, 65645655, 0057781, 5156217, 6954084, 5706718 ####[address] [address] MCV (RBC) [Entitic vol] 89.0 fL Normal 80.0-100.0 [facility] Comment on above: Performed By: #### 2 521762, 44087277, 2163536, 8802282, 2193483, 5620139 ####[address] [address] Monocytes (Bld) [#/Vol] 0.4 E9/L Normal 0.2-1.0 [facility] Comment on above: Performed By: #### 2 820294, 50735589, 9087153, 3313173, 1830424, 2304149 ####[address] [address] Neutrophils (Bld) [#/Vol] 9.4 E9/L High 2.0-7.5 [facility] Comment on above: Performed By: #### 2 453601, 73912122, 2433710, 8359676, 6381655, 9381233 ####[address] [address] Neutrophils/100 WBC (Bld) 88.6 % High 36.0-75.0 [facility] Comment on above: Performed By: #### 2 503582, 39665336, 8278222, 8713121, 4366828, 3738762 ####[facility] [address] [place] [address] Platelet 239.0 E9/L Normal 150.0-500.0 [facility] Comment on above: Performed By: #### 2 303905, 32121072, 9706669, 4154704, 0068573, 6307223 ####[facility] [address] [place] [address] Platelet mean volume (Bld) [Entitic vol] 6.6 fL Normal 6.4-10.8 [facility] Comment on above: Performed By: #### 2 938460, 68378604, 8592728, 4693513, 5462159, 4314807 ####[address] [address] RBC (Bld) [#/Vol] 3.8 E12/L Low 4.3-5.9 [facility] Comment on above: Performed By: #### 2 820796, 66174464, 8280737, 4503661, 2483460, 9727369 ####[address] [address] WBC corrected for nucl RBC Auto (Bld) [#/Vol] 10.6 E9/L Normal 4.0-11.0 [facility] Comment on above: Performed By: #### 2 110103, 16175982, 3486860, 6789888, 2266258, 9771553 ####[address] [place] [address] CHEMISTRYOrdered By: SYSTEM SYSTEM on 06-13-2023 Lactic Acid Lvl 2.7 mmol/L High 0.5 - 2.2 mmol/L [facility] Albumin [Mass/Vol] 3.5 g/dL Normal 3.3 - 5.0 gm/dL [facility] Albumin/Globulin [Mass ratio] 1.0 {ratio} Low 1.1 - 2.2 [facility] ALP [Catalytic activity/Vol] 74 [iU]/d Normal 21 - 98 Int._Unit/L [facility] ALT No additional P-5'-P [Catalytic activity/Vol] [iU]/d Low 6 - 46 Int._Unit/L [facility] Anion gap [Moles/Vol] 13 mmol/L Normal 6 - 16 mEq/L R emisol Chem AST [Catalytic activity/Vol] 9 [iU]/d Normal 5 - 43 Int._Unit/L [facility] Bilirubin [Mass/Vol] 0.4 mg/dL Normal 0.0 - 1 .1 mg/dL [facility] Bilirubin.direct [Mass/Vol] 0.1 mg/dL Normal 0.0 - 0.4 mg/dL [facility] Bilirubin.indirect [Mass or moles/Vol] 0.3 mg/dL Normal 0.1 - 0.9 mg/dL [facility] Calcium [Mass/Vol] 11.5 mg/dL High 8.9 - 11. 1 mg/dL [facility] Chloride [Moles/Vol] 106 mmol/L Normal 101 - 1 11 mmol/L [facility] CO2 [Moles/Vol] 20 mmol/L Low 21 - 31 mmol/L [facility] Creatinine [Mass/Vol] 0.6 mg/dL Normal 0.5 - 1.3 mg/dL [facility] eGFR 106 mL/min/1.73 m2 Normal >=59mL/mi n/1 .73 m2 [facility] Globulin (S) [Mass/Vol] 3.4 g/dL Normal 1.4 - 4.0 gm/dL [facility] Glucose [Mass/Vol] 167 mg/dL Normal 55 - 199 mg/dL [facility] Lactic Acid Lvl 3.1 mmol/L High 0.5 - 2.2 mmol/L [facility] Lipase [Catalytic activity/Vol] 37 U/L Normal 13 - 58 unit/L [facility] Potassium [Moles/Vol] 4.0 mmol/L Normal 3.5 - 5.3 mmol/L [facility] Protein [Mass/Vol] 6.9 g/dL Normal 6.0 - 7.8 gm/dL [facility] Sodium [Moles/Vol] 135 mmol/L Normal 135 - 145 mmol/L [facility] Urea nitrogen [Mass/Vol] 20 mg/dL Normal 5 - 21 mg/dL [facility] Urea nitrogen/Creatinine [Mass ratio] 33 mg/mg High 10 - [address] Abdomen/Pelvis w/o Contra ston 06-13-2023 CT Abdomen/Pelvis w/o Contrast Normal [facility] Coagulation surface inducedo n 06-13-2023 aPTT Coag (PPP) [Time] 32 s Normal 27-38 [facility] Comment on above: Order Comment: The A PTT is no longer used for monitoring Unfractionated Heparin Therapy. For monitoring Heparin Therapy, use the Heparin Assay. Performed By: #### 1 4979-9 ####SARAH Mcknight ([id number])[facility] ([facility])[address] [place] [address] Coagulation tissue factor in ducedon 06-13-2023 PT Coag (PPP) [Time] 15.4 s High 9.8-12.8 [facility] Comment on above: Performed By: #### 5 902-2 ####SARAH Mcknight (32303)[facility] ([facility])[address] [place] [address] Comprehensive metabolic 2000 panelon 06-13-2023 Albumin BCP dye [Mass/Vol] 3.2 g/dL Low 3.4-5.0 [facility] Comment on above: Performed By: #### 2 4323-8 ####SARAH Mcknight (20605)[facility] ([facility])[address] [place] [address] ALP [Catalytic activity/Vol] 71 U/L Normal 33-136 [facility] Comment on above: Performed By: #### 2 4323-8 ####SARAH Mcknight (91602)[facility] ([facility])[address] [place] [address] ALT With P-5'-P [Catalytic activity/Vol] 7 U/L Low 10-52 [facility] Comment on above: Result Comment: Aneta ents treated with Sulfasalazine may generate falsely decreased results for ALT. Performed By: #### 2 4323-8 ####SARAH Mcknight (78415)[facility] ([facility])[address] [place] [address] Anion gap [Moles/Vol] 13 mmol/L Normal 10-20 [facility] Comment on above: Performed By: #### 2 4323-8 ####SARAH Mcknight (78385)[facility] ([facility])[address] [place] [address] AST With P-5'-P [Catalytic activity/Vol] 25 U/L Normal 9-39 [facility] Comment on above: Result Comment: MODE RATE HEMOLYSIS DETECTED. The result may be falsely elevated due to hemolysis or other interferents. Clinical correlation is recommended. Repeat testing may be considered. Performed By: #### 2 4323-8 ####SARAH Mcknight (69344)[facility] ([facility])[address] [place] [address] Bilirubin [Mass/Vol] 0.5 mg/dL Normal 0.0-1.2 [facility] Comment on above: Performed By: #### 2 4323-8 ####SARAH Mcknight (27635)[facility] ([facility])[address] [place] [address] Calcium [Mass/Vol] 10.8 mg/dL High 8.6-10.6 [facility] Comment on above: Performed By: #### 2 4323-8 ####SARAH Mcknight (77115)[facility] ([facility])[address] [place] [address] Chloride [Moles/Vol] 105 mmol/L Normal 98-107 [facility] Comment on above: Performed By: #### 2 4323-8 ####SARAH Mcknight (37215)[facility] ([facility])[address] [place] [address] CO2 [Moles/Vol] 19 mmol/L Low 21-32 [facility] Comment on above: Performed By: #### 2 4323-8 ####SARAH Mcknight (05431)[facility] ([facility])[address] [place] [address] Creatinine [Mass/Vol] 0.56 mg/dL Normal 0.50-1.30 [facility] Comment on above: Performed By: #### 2 4323-8 ####SARAH OMER L (66918)[facility] ([facility])[address] [place] [address] GFR/1.73 sq M.predicted MDRD (S/P/Bld) [Vol rate/Area] mL/min/{1.73_m2} Normal >60 [facility] Comment on above: Result Comment: Calc ulations of estimated GFR are performed using the 2020 CKD-EPI Study Refit equation without the race variable for the IDMS-Traceable creatinine methods.https://jasn.asnjournals.org/content//A SN.0128575292 Performed By: #### 2 4323-8 ####SARAH OMER L (86787)[facility] ([facility])[address] [place] [address] Glucose [Mass/Vol] 125 mg/dL High 74-99 [facility] Comment on above: Performed By: #### 2 4323-8 ####SARAH OMER L (68547)[facility] ([facility])[address] [place] [address] Potassium [Moles/Vol] 5.4 mmol/L High 3.5-5.3 [facility] Comment on above: Result Comment: MODE RATE HEMOLYSIS DETECTED. The result may be falsely elevated due to hemolysis or other interferents. Clinical correlation is recommended. Repeat testing may be considered. Performed By: #### 2 4323-8 ####SARAH OMER L (58349)[facility] ([facility])[address] [place] [address] Protein [Mass/Vol] 6.3 g/dL Low 6.4-8.2 [facility] Comment on above: Performed By: #### 2 4323-8 ####SARAH OMER L (70060)[facility] ([facility])[address] [place] [address] Sodium [Moles/Vol] 132 mmol/L Low 136-145 [facility] Comment on above: Performed By: #### 2 4323-8 ####SARAH PENALOZAMOTZER L (85924)[facility] ([facility])[address] [place] [address] Urea nitrogen [Mass/Vol] 17 mg/dL Normal 6- [facility] Comment on above: Performed By: #### 2 4323-8 ####SARAH OMER L ([id number])[facility] ([facility])[address] [place] [address] Consent for Treatmenton 05-15 Consent for Treatment [id number]#[id number] F Normal [facility] ECG 12-LEADon 06-13-2023 ECG 12-LEAD Ventricular Rate 156 Atrial Rate 156 P-R Interval 140 QRS Duration 78 Q-T Interval 234 QTC Calculation(Bazett) 377 P [place] 57 R [place] -40 T [place] 86 QRS Count 26 Q Onset 223 P Onset 153 P Offset 197 T Offset 340 QTC Fredericia 321 Diagnosis Sinus tachycardia Left axis deviation Abnormal ECG When compared with ECG of 25-MAY-2023 17:01, Premature ventricular complexes are no longer Present QRS axis Shifted left See ED provider note for full interpretation and clinical correlation Confirmed by Aishwarya Crabtree ([id number]) on 06/16/2023 3:54:14 AM Normal [facility] ED Clinical Summaryon 2023 ED Clinical Summary Normal [facility] ED Note-Physicianon 06-13-19 ED Note-Physician Normal [facility] Comment on above: Result Comment: Elec tronically Signed By: Miguelito Francisco DO\.rohini\Date and Time Signed: 06/13/23 09:39 EDT ED Patient Education Noteon 06-13-2023 ED Patient Education Note Normal [facility] ED Patient Summaryon 024 ED Patient Summary Normal [facility] Gas panel (BldV)on 4 Anion gap 4 (BldV) [Moles/Vol] 11.0 mmol/L Normal 10.0-25.0 [facility] Comment on above: Performed By: #### 2 4339-4 ####SARAH Mcknight ([id number])[facility] ([facility])[address] [place] [address] Base excess Calc (BldV) [Moles/Vol] -6.1000 mmol/L Low -2.0-3.0 [facility] Comment on above: Performed By: #### 2 4339-4 ####SARAH Mcknight (95577)[facility] ([facility])[address] [place] [address] Calcium.ionized (BldV) [Moles/Vol] 1.40 mmol/L High 1.10-1.33 [facility] Comment on above: Performed By: #### 2 4339-4 ####SARAH Mcknight (95638)[facility] ([facility])[address] [place] [address] Chloride (BldV) [Moles/Vol] 108 mmol/L High 98-107 [facility] Comment on above: Performed By: #### 2 4339-4 ####SARAH OMER L ([id number])[facility] ([facility])[address] [place] [address] CO2 (BldV) [Partial pressure] 32 mm Hg Low 41-51 [facility] Comment on above: Performed By: #### 2 4339-4 ####SARAH OMER L (19691)[facility] ([facility])[address] [place] [address] Glucose [Mass/Vol] 130 mg/dL High 74-99 [facility] Comment on above: Performed By: #### 2 4339-4 ####SARAH Mcknight (71410)[facility] ([facility])[address] [place] [address] HCO3 (Bld) [Moles/Vol] 18.5 mmol/L Low 22.0-26.0 [facility] Comment on above: Performed By: #### 2 4339-4 ####SARAH Mcknight (58473)[facility] ([facility])[address] [place] [address] Hematocrit Est (Bld) [Volume fraction] 26.0 % Low 41.0-52.0 [facility] Comment on above: Performed By: #### 2 4339-4 ####SARAH Mcknight (41325)[facility] ([facility])[address] [place] [address] Hemoglobin (Bld) [Mass/Vol] 8.5 g/dL Low 13.5-17.5 [facility] Comment on above: Performed By: #### 2 4339-4 ####SARAH Mcknight (30786)[facility] ([facility])[address] [place] [address] Lactate (BldV) [Moles/Vol] 2.3 mmol/L High 0.4-2.0 [facility] Comment on above: Performed By: #### 2 4339-4 ####SARAH Mcknight (21376)[facility] ([facility])[address] [place] [address] Oxygen (BldV) [Partial pressure] 30 mm Hg Low 35-45 [facility] Comment on above: Performed By: #### 2 4339-4 ####SARAH Mcknight (73411)[facility] ([facility])[address] [place] [address] Oxygen saturation in Venous blood 45 % Normal 45-75 [facility] Comment on above: Performed By: #### 2 4339-4 ####SARAH Mcknight (91464)[facility] ([facility])[address] [place] [address] Oxyhemoglobin (BldV) [Mass fraction] 43.7 % Low 45.0-75.0 [facility] Comment on above: Performed By: #### 2 4339-4 ####SARAH Mcknight (98205)[facility] ([facility])[address] [place] [address] pH (BldV) 7.37 [pH] Normal 7.33-7.43 [facility] Comment on above: Performed By: #### 2 4339-4 ####SARAH Mcknight (15427)[facility] ([facility])[address] [place] [address] Potassium (BldV) [Moles/Vol] 4.2 mmol/L Normal 3.5-5.3 [facility] Comment on above: Performed By: #### 2 4339-4 ####SARAH Mcknight ([id number])[facility] ([facility])[address] [place] [address] Sodium (BldV) [Moles/Vol] 133 mmol/L Low 136-145 [facility] Comment on above: Performed By: #### 2 4339-4 ####SARAH Mcknight (53490)[facility] ([facility])[address] [place] [address] HEMATOLOGYOrdered By: SYSTEM SYSTEM on 06-13-2023 Basophils/100 WBC (Bld) 0.3 % Normal 0.0 - 2.0 % [facility]e Basophils/Leukocytes Auto (Bld) [Pure # fraction] 0.0 E9/L Normal 0.0 - 0.2 E9/L [facility] Eosinophils (Bld) [#/Vol] 0.1 E9/L Normal 0.0 - 0.5 E9/L [facility] Eosinophils/100 WBC (Bld) 0.6 % Normal 0.0 - 8.0 % [facility] Erythrocyte distribution width (RBC) [Ratio] 15.3 % High 10.9 - 14.2 % [facility] Hematocrit (Bld) [Volume fraction] 33.6 % Low 37.7 - 49.0 % [facility] Hemoglobin (Bld) [Mass/Vol] 11.0 g/dL Low 13.5 - 17.5 gm/dL [facility] Lymphocytes (Bld) [#/Vol] 0.7 E9/L Low 1.0 - 4.0 E9/L [facility] Lymphocytes/100 WBC (Bld) 6.3 % Low 14.0 - 50.0 % [facility] MCH (RBC) [Entitic mass] 29.2 pg Normal 27.0 - 34.0 pg [facility] MCHC (RBC) [Mass/Vol] 32.8 g/dL Normal 31.4 - 36.0 gm/dL [facility] MCV (RBC) [Entitic vol] 89.0 fL Normal 80.0 - 100.0 fL [facility] Monocytes (Bld) [#/Vol] 0.4 E9/L Normal 0.2 - 1.0 E9/L [facility] Monocytes/100 WBC (Bld) 4.2 % Normal 4.0 - 14.0 % [facility] Neutrophils (Bld) [#/Vol] 9.4 E9/L High 2.0 - 7.5 E9/L [facility] Neutrophils/100 WBC (Bld) 88.6 % High 36.0 - 75.0 % [facility] Platelet 239.0 E9/L Normal 150.0 - 500.0 E9/L [facility] Platelet mean volume (Bld) [Entitic vol] 6.6 fL Normal 6.4 - 10.8 fL [facility] RBC (Bld) [#/Vol] 3.8 E12/L Low 4.3 - 5.9 E12/L [facility] WBC corrected for nucl RBC Auto (Bld) [#/Vol] 10.6 E9/L Normal 4.0 - 11.0 E9/L [facility] Hep Func Panelon 06-13-2023 Albumin [Mass/Vol] 3.5 g/dL Normal 3.3-5.0 [facility] Comment on above: Performed By: #### 2 [id number], [id number], [id number], 5821394, 4691361, [id number] ####[facility] [id number] [place] [address] Albumin/Globulin (S) [Mass conc ratio] 1.0 Low 1.1-2.2 [facility] Comment on above: Performed By: #### 2 [id number], [id number], [id number], 7844855, [id number], [id number] ####[facility] [id number] [place] [address] ALP [Catalytic activity/Vol] 74 Int._Unit/L Normal 21-98 [facility] Comment on above: Performed By: #### 2 [id number], [id number], 4876129, 1184660, 6871098, [id number] ####[address] [address] ALT No additional P-5'-P [Catalytic activity/Vol] U/L Low 6-46 [facility] Comment on above: Performed By: #### 2 [id number], [id number], 5311480, 1602804, 9689252, [id number] ####[place] [id number] AST [Catalytic activity/Vol] 9 Int._Unit/L Normal 5-43 [facility] Comment on above: Performed By: #### 2 [id number], [id number], 3964096, 8425835, 0553953, 0954653 ####[address] [address] Bilirubin [Mass/Vol] 0.4 mg/dL Normal 0.0-1.1 [facility] Comment on above: Performed By: #### 2 [id number], [id number], 6897257, 3525340, 2651692, 1156445 ####[address] [address] Bilirubin.direct [Mass/Vol] 0.1 mg/dL Normal 0.0-0.4 [facility] Comment on above: Performed By: #### 2 313123, 14922253, 7907142, 6953215, 5712768, 6363762 ####[address] [address] Bilirubin.indirect [Mass or moles/Vol] 0.3 mg/dL Normal 0.1-0.9 [facility] Comment on above: Performed By: #### 2 888858, 66390639, 8076116, 0882163, 7096452, 1021235 ####[facility] [address] [place] [address] Globulin (S) [Mass/Vol] 3.4 g/dL Normal 1.4-4.0 [facility] Comment on above: Performed By: #### 2 744532, 11633302, 5533781, 0964748, 0843560, 2492848 ####[facility] [address] [place] [address] Protein [Mass/Vol] 6.9 g/dL Normal 6.0-7.8 [facility] Comment on above: Performed By: #### 2 522451, 57111334, 1489076, 3395480, 7770458, 7433392 ####[facility] [address] [place] [address] Lactateon 06-13-2023 Lactate [Moles/Vol] 5.0 mmol/L Critically high 0.4-2.0 [facility] Comment on above: Order Comment: Venip uncture immediately after or during the administration of Metamizole may lead to falsely low results. Testing should be performed immediatelyprior to Metamizole dosing. Performed By: #### 2 524-7 ####SARAH Mcknight ([id number])[facility] ([facility])[id number] [place] [address] Lactate [Moles/Vol] 2.7 mmol/L High 0.4-2.0 [facility] Comment on above: Order Comment: Venip uncture immediately after or during the administration of Metamizole may lead to falsely low results. Testing should be performed immediatelyprior to Metamizole dosing. Performed By: #### 2 524-7 ####SARAH Mcknight ([id number])[facility] ([facility])[address] [place] [address] Lactic Acidon 06-13-2023 Lactic Acid Lvl 2.7 mmol/L High 0.5-2.2 [facility] Comment on above: Order Comment: Order added by EKS Rule. (FT_LACTIC_ACID_REFLEX) Adds reflex Lactic Acid 4 hours after initial if result is greater than or equal to 2.0. Performed By: #### 2 070007 ####[facility] [address] [place] [address] Lactic Acid Lvl 3.1 mmol/L High 0.5-2.2 [facility] Comment on above: Performed By: #### 2 370938, 14865866, 7796043, 8770983, 0548183, 5595310 ####[facility] [address] [place] [address] Lipase Levelon 06-13-2023 Lipase [Catalytic activity/Vol] 37 U/L Normal 13-58 [facility] Comment on above: Performed By: #### 2 298690, 54402902, 9896792, 9883777, 0641181, 3755362 ####[facility] [address] [place] [address] Magnesiumon 06-13-2023 Magnesium [Mass/Vol] 1.33 mg/dL Low 1.60-2.40 [facility] Comment on above: Performed By: #### 1 9123-9 ####SARAH Mcknight ([id number])[facility] ([facility])[address] [place] [address] Monitor Recordon 06-13-2023 Monitor Record [id number]#1.00TI FF Normal [facility] PT Coag (PPP) [Time]on 06-12 INR Coag (PPP) [Relative time] 1.4 High 0.9-1.1 [facility] Comment on above: Performed By: #### 5 902-2 ####SARAH Mcknight ([id number])[facility] ([facility])[address] [place] [address] RAD - Preliminary Cat Scan R eporton 06-13-2023 RAD - Preliminary Cat Scan Report [id number]#1.00TI FF Normal [facility] Transfer Documentson 024 Transfer Documents [id number]#1.00TI FF Normal [facility] Troponin I.cardiac panelon 0 06-13-2023 Tropinin I.cardiac panel High sensitivity method 50 ng/L Normal 0-53 [facility] Comment on above: Order Comment: Less than 99th percentile of normal range cutoff-Female and children under 18 years old <35 ng/L; Male <54 ng/L: NegativeRepeat testing should be performed if clinically indicated.Female and children under 18 years old 35-120 ng/L; Male 54-120 ng/L:Consistent with possible cardiac damage and possible increased clinicalrisk. Serial measurements may help to assess extent of myocardial damage.>120 ng/L: Consistent with cardiac damage, increased clinical risk andmyocardial infarction. Serial measurements may help assess extent ofmyocardial damage.NOTE: Children less than 1 year old may have higher baseline troponinlevels and results should be interpreted in conjunction with the overallclinical context.NOTE: Troponin I testing is performed using a differenttesting methodology at [facility] than at [facility]. Direct result comparisons should onlybe made within the same method. Performed By: #### 8 9577-1 ####SARAH Mcknight ([id number])[facility] ([facility])[address] [place] [address] UA with Cult Rflxon 06-13-19 24 Color (U) Yellow Normal Yellow [facility] Comment on above: Result Comment: Micr oscopic readings are only performed on those samples that meet specific criteria set forth by [facility]. Performed By: #### 2 711503, [id number] ####[facility] [address] [place] [address] Ketones Ql (U) Negative Normal Negative [facility] Comment on above: Performed By: #### 2 538613, [id number] ####[facility] [address] [place] [address] UA Blood 1+ mg/dL Abnormal Negative [facility] Comment on above: Performed By: #### 2 462945, [id number] ####[facility] [address] [place] [address] UA Bacteria 1+ [id number] Abnormal Trace [facility] Comment on above: Performed By: #### 2 356426, [id number] ####[facility] [address] [place] [address] UA Clarity Turbid Abnormal Clear [facility] Comment on above: Performed By: #### 2 468316, [id number] ####[facility] [address] [place] [address] UA Glucose Trace Abnormal Negative [facility] Comment on above: Performed By: #### 2 311646, [id number] ####[facility] [address] [place] [address] UA Leuk Est 500 Elfego/uL Abnormal Negative [facility] Comment on above: Performed By: #### 2 394056, [id number] ####[facility] [address] [place] [address] UA Mucous Trace Normal Negative [facility] Comment on above: Performed By: #### 2 438022, [id number] ####[facility] [address] [place] [address] UA Nitrite Negative Normal Negative [facility] Comment on above: Performed By: #### 2 872050, [id number] ####[facility] [address] [place] [address] UA pH 7.0 Invalid Interpretation Code 5.0-9.0 [facility] Comment on above: Performed By: #### 2 743935, [id number] ####[facility] [address] [place] [address] UA Protein Trace Abnormal Negative [facility] Comment on above: Performed By: #### 2 179294, [id number] ####[facility] [address] [place] [address] UA RBC 21-30 Abnormal 0-3 [facility] Comment on above: Performed By: #### 2 926489, [id number] ####[address] [address] UA Spec Grav 1.018 Invalid Interpretation Code 1.005-1.030 [facility] Comment on above: Performed By: #### 2 157211, [id number] ####[place] [address] UA Urobilinogen Negative Normal Negative [facility] Comment on above: Performed By: #### 2 464506, [id number] ####[place] [address] UA WBC >75 Abnormal 0-5 [facility] Comment on above: Performed By: #### 2 065633, [id number] ####[place] [address] Urobilinogen (U) [Mass/Vol] Negative Normal Negative [facility] Comment on above: Performed By: #### 2 585240, [id number] ####[place] 0[address]257 UA Spec Desc Clean Catch Normal [facility] Comment on above: Performed By: #### 2 348103, [id number] ####[place] [address]257 URINALYSISOrdered By: SYSTEM SYSTEM on 06-13-2023 Color (U) Yellow 1 (06/13/23 8:50 AM) Normal Yellow [facility] UA Auto SS Comment on above: Interpretive Data: M icroscopic readings are only performed on those samples that meet specific criteria set forth by [facility]. Ketones Ql (U) Negative Normal Negativemg/d L [facility] UA Auto SS UA Bacteria 1+ graded/HPF Invalid Interpretation Code Tracegraded/ HPF [facility] UA Auto SS UA Blood 1+ mg/dL Invalid Interpretation Code Negativemg/d L [facility] UA Auto SS UA Clarity Turbid *ABN* (06/13/23 8:50 AM) Invalid Interpretation Code Clear [facility] UA Auto SS UA Glucose Trace mg/dL Invalid Interpretation Code Negativemg/d L [facility] UA Auto SS UA Leuk Est 500 Elfego/uL Elfego/uL Invalid Interpretation Code NegativeLeu/ uL [facility] UA Auto SS UA Mucous Trace graded/LPF Normal Negativegra d ed/LPF [facility] UA Auto SS UA Nitrite Negative Normal Negativemg/d L [facility] UA Auto SS UA pH 7.0 *NA* (06/13/23 8:50 AM) Invalid Interpretation Code 5.0 - 9.0 [facility] UA Auto SS UA Protein Trace mg/dL Invalid Interpretation Code Negativemg/d L [facility] UA Auto SS UA RBC 21-30 graded/HPF Invalid Interpretation Code 0-3graded/HP F [facility] UA Auto SS UA Spec Grav 1.018 *NA* (06/13/23 8:50 AM) Invalid Interpretation Code 1.005 - 1.030 [facility] UA Auto SS UA Urobilinogen Negative Normal Negativemg/d L [facility] UA Auto SS UA WBC >75 graded/HPF Invalid Interpretation Code 0-5graded/HP F [facility] UA Auto SS Urobilinogen (U) [Mass/Vol] Negative Normal Negativemg/d L [facility] UA Auto SS URINALYSISOrdered By: Ebony Lee on 06-13-2023 UA Spec Desc Clean Catch (06/13/23 8:50 AM) Normal [facility] UA Auto SS Work Phone: Urinalysis complete W Reflex Culture panel (U)on 06-13-2023 Appearance (U) Turbid Normal Clear [facility] Comment on above: Performed By: #### 5 8077-9 ####SARAH Mcknight ([id number])[facility] ([facility])[address] [place] [address] Bilirubin (U) [Mass/Vol] Negative Normal NEGATIVE [facility] Comment on above: Performed By: #### 5 8077-9 ####SARAH Mcknight (75861)[facility] ([facility])[address] [place] [address] Color (U) Yellow Normal Light-Yellow , Yellow, Dark-Yellow [facility] Comment on above: Performed By: #### 5 8077-9 ####SARAH Mcknight ([id number])[facility] ([facility])[address] [place] [address] Glucose Auto test strip (U) [Mass/Vol] Normal Normal Normal [facility] Comment on above: Performed By: #### 5 8077-9 ####SARAH Mcknight ([id number])[facility] ([facility])[address] [place] [address] Ketones (U) [Mass/Vol] Negative Normal NEGATIVE Un [facility] Comment on above: Performed By: #### 5 8077-9 ####SARAH Mcknight (57934)[facility] ([facility])[address] [place] [address] Leukocyte esterase Auto test strip Ql (U) 500 Elfego/???L Abnormal NEGATIVE [facility] Comment on above: Performed By: #### 5 8077-9 ####SARAH Mcknight ([id number])[facility] ([facility])[address] [place] [address] Nitrite Auto test strip Ql (U) Negative Normal NEGATIVE [facility] Comment on above: Performed By: #### 5 8077-9 ####SARAH Mcknight (55433)[facility] ([facility])[address] [facility] [place] [address] pH (U) 6.5 [pH] Normal 5.0, 5.5, 6.0, 6.5, 7.0, 7.5, 8.0 [facility] Comment on above: Performed By: #### 5 8077-9 ####SARAH Mcknight (49167)[facility] ([facility])[address] [place] [address] Protein (U) [Mass/Vol] 20 (TRACE) Normal NEGAT EVY, 10 (TRACE), 20 (TRACE) [facility] Comment on above: Performed By: #### 5 8077-9 ####SARAH Mcknight (56043)[facility] ([facility])[address] [place] [address] RBC (U) [#/Vol] 0.2 (2+) Abnormal NEGATIVE [facility] Comment on above: Performed By: #### 5 8077-9 ####SARAH Mcknight (42263)[facility] ([facility])[address] [place] [address] Specific gravity (U) [Rel density] 1.017 Normal 1.005-1.035 [facility] Comment on above: Performed By: #### 5 8077-9 ####SARAH Mcknight (89149)[facility] ([facility])[address] [place] [address] Urobilinogen (U) [Mass/Vol] Normal Normal Normal [facility] Comment on above: Performed By: #### 5 8077-9 ####SARAH Mcknight ([id number])[facility] ([facility])[address] [place] [address] Urinalysis microscopic panel Auto Ql (U)on 06-13-2023 Mucus Auto (Urine sed) [#/Area] 1+ /LPF Normal Reference range not established. [facility] Comment on above: Performed By: #### 5 3315-8 ####SARAH Mcknight (02235)[facility] ([facility])[address] [place] [address] RBC Auto (Urine sed) [#/Area] >20 Abnormal NONE, 1-2, 3-5 [facility] Comment on above: Performed By: #### 5 3315-8 ####SARAH OMER L ([id number])[facility] ([facility])[address] [place] [address] WBC Auto (Urine sed) [#/Area] >50 Abnormal 1-5, NONE [facility] Comment on above: Performed By: #### 5 3315-8 ####SARAH Mcknight (62643)[facility] ([facility])[address] [place] [address] Yeast.budding Computer assisted (U) [#/Area] PRESENT Abnormal NONE [facility] Comment on above: Performed By: #### 5 3315-8 ####SARAH Mcknight (73086)[facility] ([facility])[address] [place] [address] eGFRon 06-13-2023 eGFR 106 mL/min/1.73 m2 Normal >=59 [facility] Comment on above: Order Comment: Order added by Discern Expert. Performed By: #### 2 787754, 59893098, 1723692, 3897929, 2903790, 1364866 ####[facility] [address] [place] [address] Guidance for cholangioscopy of Gallbladderon 06-09-2023 Interpreted By: Chris Stanley ud, STUDY: IR BILIARY CHOLANGIOGRAM; 06/09/2023 2:11 pm INDICATION: Signs/Symptoms:cholecyst ostomy tube follow up. COMPARISON: None. ACCESSION NUMBER(S): [id number] ORDERING CLINICIAN: JANETTE SINGH TECHNIQUE: INTERVENTIONALIST(S): Chris Farrell MD The history and physical exam pertinent to the procedure were reviewed and no updates were made. CONSENT: The patient/patient's POA/next of kin was informed of the nature of the proposed procedure. The purposes, alternatives, risks, and benefits were explained and discussed. All questions were answered and consent was obtained. RADIATION EXPOSURE: Fluoroscopy time: 0.0 min. Dose: 0.3 mGy. SEDATION: None MEDICATION/CONTRAST: No additional TIME OUT: A time out was performed immediately prior to procedure start with the interventional team, correctly identifying the patient name, date of , MRN, procedure, anatomy (including marking of site and side), patient position, procedure consent form, relevant laboratory and imaging test results, antibiotic administration, safety precautions, and procedure-specific equipment needs. COMPLICATIONS: No immediate adverse events identified. FINDINGS: Preliminary fluoroscopic visualization of the right percutaneous cholecystostomy tube demonstrated it had been completely displaced into the subcutaneous soft tissues. The external portion of the catheter was cut and the catheter was removed in its entirety. Access site covered with sterile bandage. Patient tolerated procedure well. [facility] Jerome Farrell MD - 06/09/2023 Interpreted By: Chris Farrell, STUDY: IR BILIARY CHOLANGIOGRAM; 06/09/2023 2:11 pm INDICATION: Signs/Symptoms:cholecyst ostomy tube follow up. COMPARISON: None. ACCESSION NUMBER(S): [id number] ORDERING CLINICIAN: JANETTE SINGH TECHNIQUE: INTERVENTIONALIST(S): Chris Farrell MD The history and physical exam pertinent to the procedure were reviewed and no updates were made. CONSENT: The patient/patient's POA/next of kin was informed of the nature of the proposed procedure. The purposes, alternatives, risks, and benefits were explained and discussed. All questions were answered and consent was obtained. RADIATION EXPOSURE: Fluoroscopy time: 0.0 min. Dose: 0.3 mGy. SEDATION: None MEDICATION/CONTRAST: No additional TIME OUT: A time out was performed immediately prior to procedure start with the interventional team, correctly identifying the patient name, date of , MRN, procedure, anatomy (including marking of site and side), patient position, procedure consent form, relevant laboratory and imaging test results, antibiotic administration, safety precautions, and procedure-specific equipment needs. COMPLICATIONS: No immediate adverse events identified. FINDINGS: Preliminary fluoroscopic visualization of the right percutaneous cholecystostomy tube demonstrated it had been completely displaced into the subcutaneous soft tissues. The external portion of the catheter was cut and the catheter was removed in its entirety. Access site covered with sterile bandage. Patient tolerated procedure well. IMPRESSION: Percutaneous cholecystostomy tube was entirely displaced from the gallbladder upon initial evaluation. Catheter was removed in its entirety uneventfully. I was present for and/or performed the critical portions of the procedure and immediately available throughout the entire procedure. I personally reviewed the image(s)/study and interpretation. I agree with the findings as stated. Performed and dictated at [facility]. MACRO: None Signed by: Chris Farrell 06/09/2023 2:58 PM Dictation workstation: [id number] [facility] Work Phone: Radiology Study observation (narrative) [facility] Work Phone: Guidance for cholangioscopy of GallbladderOrdered By: Jerome Farrell on 06-09-2023 [facility] Work Phone: IR BILIARY CHOLANGIOGRAMon 0 06-09-2023 IR BILIARY CHOLANGIOGRAM Interpreted By: Chris Farrell, STUDY: IR BILIARY CHOLANGIOGRAM; 06/09/2023 2:11 pm INDICATION: Signs/Symptoms:cholecyst ostomy tube follow up. COMPARISON: None. ACCESSION NUMBER(S): [id number] ORDERING CLINICIAN: JANETTE SINGH TECHNIQUE: INTERVENTIONALIST(S): Chris Farrell MD The history and physical exam pertinent to the procedure were reviewed and no updates were made. CONSENT: The patient/patient's POA/next of kin was informed of the nature of the proposed procedure. The purposes, alternatives, risks, and benefits were explained and discussed. All questions were answered and consent was obtained. RADIATION EXPOSURE: Fluoroscopy time: 0.0 min. Dose: 0.3 mGy. SEDATION: None MEDICATION/CONTRAST: No additional TIME OUT: A time out was performed immediately prior to procedure start with the interventional team, correctly identifying the patient name, date of , MRN, procedure, anatomy (including marking of site and side), patient position, procedure consent form, relevant laboratory and imaging test results, antibiotic administration, safety precautions, and procedure-specific equipment needs. COMPLICATIONS: No immediate adverse events identified. FINDINGS: Preliminary fluoroscopic visualization of the right percutaneous cholecystostomy tube demonstrated it had been completely displaced into the subcutaneous soft tissues. The external portion of the catheter was cut and the catheter was removed in its entirety. Access site covered with sterile bandage. Patient tolerated procedure well. IMPRESSION: Percutaneous cholecystostomy tube was entirely displaced from the gallbladder upon initial evaluation. Catheter was removed in its entirety uneventfully. I was present for and/or performed the critical portions of the procedure and immediately available throughout the entire procedure. I personally reviewed the image(s)/study and interpretation. I agree with the findings as stated. Performed and dictated at [facility]. MACRO: None Signed by: Chris Farrell 06/09/2023 2:58 PM Dictation workstation: [id number] [facility] CBC W Auto Differential pane l (Bld)on 05-25-2023 Basophils (Bld) [#/Vol] 0.05 10*3/uL [facility] Basophils/100 WBC (Bld) 0.7 % 0.0 - 2.0 % [facility] Eosinophils (Bld) [#/Vol] 0.23 10*3/uL [facility] Eosinophils/100 WBC (Bld) 3.2 % 0.0 - 6.0 % [facility] Erythrocyte distribution width (RBC) [Ratio] 19.1 % High 11.5 - 14.5 % [facility] Hematocrit (Bld) [Volume fraction] 27.2 % Low 41.0 - 52.0 % [facility] Hemoglobin (Bld) [Mass/Vol] 9.5 g/dL Low 13.5 - 17.5 g/dL [facility] Immature granulocytes (Bld) [#/Vol] 0.03 10*3/uL [facility] Immature granulocytes/100 WBC (Bld) 0.4 % 0.0 - 0.9 % [facility] Comment on above: Immature Granulocyte Count (IG) includes promyelocytes, myelocytes and metamyelocytes but does not include bands. Percent differential counts (%) should be interpreted in the context of the absolute cell counts (cells/UL). Interpretation and review of laboratory results Abnormal [facility] Lymphocytes (Bld) [#/Vol] 1.80 10*3/uL [facility] Lymphocytes/100 WBC (Bld) 24.8 % 13.0 - 44.0 % [facility] MCH (RBC) [Entitic mass] 29.2 pg 26.0 - 34.0 pg [facility] MCHC (RBC) [Mass/Vol] 34.9 g/dL 32.0 - 36.0 g/dL [facility] MCV (RBC) [Entitic vol] 84 fL 80 - 100 fL [facility] Monocytes (Bld) [#/Vol] 0.47 10*3/uL [facility] Monocytes/100 WBC (Bld) 6.5 % 2.0 - 10.0 % [facility] Neutrophils (Bld) [#/Vol] 4.68 10*3/uL [facility] Comment on above: Percent differential counts (%) should be interpreted in the context of the absolute cell counts (cells/uL). Neutrophils/100 WBC (Bld) 64.4 % 40.0 - 80.0 % [facility] Nucleated RBC/100 WBC (Bld) [Ratio] 0.0 % [facility] Platelets (Bld) [#/Vol] 217 10*3/uL [facility] RBC (Bld) [#/Vol] 3.25 10*6/uL Low [facility] WBC (Bld) [#/Vol] 7.3 10*3/uL [facility] Basophils (Bld) [#/Vol] 0.05 x10*3/uL Normal 0.00-0.10 [facility] Comment on above: Performed By: #### 5 7021-8 ####SARAH Mcknight ([id number])[facility] ([facility])[address] [place] [address] Basophils/100 WBC (Bld) 0.7 % Normal 0.0-2.0 [facility] Comment on above: Performed By: #### 5 7021-8 ####SARAH Mcknight (84925)[facility] ([facility])[address] [place] [address] Eosinophils (Bld) [#/Vol] 0.23 x10*3/uL Normal 0.00-0.70 [facility] Comment on above: Performed By: #### 5 7021-8 ####SARAH Mcknight ([id number])[facility] ([facility])[address] [place] [address] Eosinophils/100 WBC (Bld) 3.2 % Normal 0.0-6.0 [facility] Comment on above: Performed By: #### 5 7021-8 ####SARAH Mcknight (06273)[facility] ([facility])[address] [place] [address] Erythrocyte distribution width (RBC) [Ratio] 19.1 % High 11.5-14.5 [facility] Comment on above: Performed By: #### 5 7021-8 ####SARAH Mcknight ([id number])[facility] ([facility])[address] [place] [address] Hematocrit (Bld) [Volume fraction] 27.2 % Low 41.0-52.0 [facility] Comment on above: Performed By: #### 5 7021-8 ####SARAH Mcknight (28215)[facility] ([facility])[address] [place] [address] Hemoglobin (Bld) [Mass/Vol] 9.5 g/dL Low 13.5-17.5 [facility] Comment on above: Performed By: #### 5 7021-8 ####SARAH Mcknight (75182)[facility] ([facility])[address] [place] [address] Immature granulocytes (Bld) [#/Vol] 0.03 x10*3/uL Normal 0.00-0.70 [facility] Comment on above: Performed By: #### 5 7021-8 ####SARAH Mcknight ([id number])[facility] ([facility])[address] [place] [address] Immature granulocytes/100 WBC (Bld) 0.4 % Normal 0.0-0.9 [facility] Comment on above: Result Comment: Ciera ture Granulocyte Count (IG) includes promyelocytes, myelocytes and metamyelocytes but does not include bands. Percent differential counts (%) should be interpreted in the context of the absolute cell counts (cells/UL). Performed By: #### 5 7021-8 ####SARAH Mcknight ([id number])[facility] ([facility])[address] [place] [address] Lymphocytes (Bld) [#/Vol] 1.80 x10*3/uL Normal 1.20-4.80 [facility] Comment on above: Performed By: #### 5 7021-8 ####SARAH Mcknight ([id number])[facility] ([facility])[address] [place] [address] Lymphocytes/100 WBC (Bld) 24.8 % Normal 13.0-44.0 [facility] Comment on above: Performed By: #### 5 7021-8 ####SARAH Mcknight ([id number])[facility] ([facility])[address] [place] [address] MCH (RBC) [Entitic mass] 29.2 pg Normal 26.0-34.0 [facility] Comment on above: Performed By: #### 5 7021-8 ####SARAH Mcknight ([id number])[facility] ([facility])[address] [place] [address] MCHC (RBC) [Mass/Vol] 34.9 g/dL Normal 32.0-36.0 [facility] Comment on above: Performed By: #### 5 7021-8 ####SARAH Mcknight ([id number])[facility] ([facility])[address] [place] [address] MCV (RBC) [Entitic vol] 84 fL Normal 80-100 [facility] Comment on above: Performed By: #### 5 7021-8 ####SARAH Mcknight ([id number])[facility] ([facility])[address] [place] [address] Monocytes (Bld) [#/Vol] 0.47 x10*3/uL Normal 0.10-1.00 [facility] Comment on above: Performed By: #### 5 7021-8 ####SARAH Mcknight ([id number])[facility] ([facility])[address] [place] [address] Monocytes/100 WBC (Bld) 6.5 % Normal 2.0-10.0 [facility] Comment on above: Performed By: #### 5 7021-8 ####SARAH Mcknight ([id number])[facility] ([facility])[address] [place] [address] Neutrophils (Bld) [#/Vol] 4.68 x10*3/uL Normal 1.20-7.70 [facility] Comment on above: Result Comment: Perc ent differential counts (%) should be interpreted in the context of the absolute cell counts (cells/uL). Performed By: #### 5 7021-8 ####SARAH Mcknight ([id number])[facility] ([facility])[address] [place] [address] Neutrophils/100 WBC (Bld) 64.4 % Normal 40.0-80.0 [facility] Comment on above: Performed By: #### 5 7021-8 ####SARAH Mcknight ([id number])[facility] ([facility])[address] [place] [address] Nucleated RBC/100 WBC (Bld) [Ratio] 0.0 /100 WBCs Normal 0.0-0.0 [facility] Comment on above: Performed By: #### 5 7021-8 ####SARAH Mcknight ([id number])[facility] ([facility])[address] [place] [address] Platelets (Bld) [#/Vol] 217 x10*3/uL Normal 150-450 [facility] Comment on above: Performed By: #### 5 7021-8 ####SARAH Mcknight ([id number])[facility] ([facility])[address] [place] [address] RBC (Bld) [#/Vol] 3.25 x10*6/uL Low 4.50-5.90 [facility] Comment on above: Performed By: #### 5 7021-8 ####SARAH Mcknight ([id number])[facility] ([facility])[address] [place] [address] WBC (Bld) [#/Vol] 7.3 x10*3/uL Normal 4.4-11.3 [facility] Comment on above: Performed By: #### 5 7021-8 ####SARAH Mcknight ([id number])[facility] ([facility])[address] [place] [address] Comprehensive metabolic 2000 panelon 05-25-2023 Albumin BCP dye [Mass/Vol] 3.0 g/dL Low 3.4 - 5.0 g/dL [facility] ALP [Catalytic activity/Vol] 69 U/L 33 - 136 U/L [facility] ALT With P-5'-P [Catalytic activity/Vol] 4 U/L Low 10 - 52 U/L [facility] Comment on above: Patients treated wit h Sulfasalazine may generate falsely decreased results for ALT. Anion gap [Moles/Vol] 11 mmol/L 10 - 2 0 mmol/L [facility] AST With P-5'-P [Catalytic activity/Vol] 10 U/L 9 - 39 U/L [facility] Bilirubin [Mass/Vol] 0.7 mg/dL 0.0 - 1 .2 mg/dL [facility] Calcium [Mass/Vol] 11.2 mg/dL High 8.6 - 10. 6 mg/dL [facility] Chloride [Moles/Vol] 108 mmol/L High 98 - 10 7 mmol/L [facility] CO2 [Moles/Vol] 22 mmol/L 21 - 32 mmol/L [facility] Creatinine [Mass/Vol] 0.56 mg/dL 0.50 - 1.30 mg/dL [facility] eGFR - PINF [facility] Comment on above: Calculations of johnny mated GFR are performed using the 2020 CKD-EPI Study Refit equation without the race variable for the IDMS-Traceable creatinine methods. https://jasn.asnjournals.org/content//ASN.04799 93665 Glucose [Mass/Vol] 96 mg/dL 74 - 99 mg/dL [facility] Interpretation and review of laboratory results Abnormal [facility] Potassium [Moles/Vol] 4.1 mmol/L 3.5 - 5.3 mmol/L [facility] Protein [Mass/Vol] 5.8 g/dL Low 6.4 - 8.2 g/dL [facility] Sodium [Moles/Vol] 137 mmol/L 136 - 145 mmol/L [facility] Urea nitrogen [Mass/Vol] 15 mg/dL 6 - 23 mg/dL [facility] Albumin BCP dye [Mass/Vol] 3.0 g/dL Low 3.4-5.0 [facility] Comment on above: Performed By: #### 2 4323-8 ####SARAH Mcknight ([id number])[facility] ([facility])[address] [place] [address] ALP [Catalytic activity/Vol] 69 U/L Normal 33-136 [facility] Comment on above: Performed By: #### 2 4323-8 ####SARAH Mcknight ([id number])[facility] ([facility])[address] [place] [address] ALT With P-5'-P [Catalytic activity/Vol] 4 U/L Low 10-52 [facility] Comment on above: Result Comment: Aneta ents treated with Sulfasalazine may generate falsely decreased results for ALT. Performed By: #### 2 4323-8 ####SARAH Mcknight ([id number])[facility] ([facility])[address] [place] [address] Anion gap [Moles/Vol] 11 mmol/L Normal 10-20 [facility] Comment on above: Performed By: #### 2 4323-8 ####SARAH Mcknight ([id number])[facility] ([facility])[address] [place] [address] AST With P-5'-P [Catalytic activity/Vol] 10 U/L Normal 9-39 [facility] Comment on above: Performed By: #### 2 4323-8 ####SARAH Mcknight ([id number])[facility] ([facility])[address] [place] [address] Bilirubin [Mass/Vol] 0.7 mg/dL Normal 0.0-1.2 [facility] Comment on above: Performed By: #### 2 4323-8 ####SARAH Mcknight ([id number])[facility] ([facility])[address] [place] [address] Calcium [Mass/Vol] 11.2 mg/dL High 8.6-10.6 [facility] Comment on above: Performed By: #### 2 4323-8 ####SARAH Mcknight ([id number])[facility] ([facility])[address] [place] [address] Chloride [Moles/Vol] 108 mmol/L High 98-107 [facility] Comment on above: Performed By: #### 2 4323-8 ####SARAH OMER L ([id number])[facility] ([facility])[address] [place] [address] CO2 [Moles/Vol] 22 mmol/L Normal 21-32 [facility] Comment on above: Performed By: #### 2 4323-8 ####SARAH Mcknight ([id number])[facility] ([facility])[address] [place] [address] Creatinine [Mass/Vol] 0.56 mg/dL Normal 0.50-1.30 [facility] Comment on above: Performed By: #### 2 4323-8 ####SARAH Mcknight ([id number])[facility] ([facility])[address] [place] [address] GFR/1.73 sq M.predicted MDRD (S/P/Bld) [Vol rate/Area] mL/min/{1.73_m2} Normal >60 [facility] Comment on above: Result Comment: Calc ulations of estimated GFR are performed using the 2020 CKD-EPI Study Refit equation without the race variable for the IDMS-Traceable creatinine methods.https://jasn.asnjournals.org/content/early//A SN.9412433781 Performed By: #### 2 4323-8 ####SARAH Mcknight ([id number])[facility] ([facility])[address] [place] [address] Glucose [Mass/Vol] 96 mg/dL Normal 74-99 [facility] Comment on above: Performed By: #### 2 4323-8 ####SARAH Mcknight ([id number])[facility] ([facility])[address] [place] [address] Potassium [Moles/Vol] 4.1 mmol/L Normal 3.5-5.3 [facility] Comment on above: Performed By: #### 2 4323-8 ####SARAH OMER L ([id number])[facility] ([facility])[address] [place] [address] Protein [Mass/Vol] 5.8 g/dL Low 6.4-8.2 [facility] Comment on above: Performed By: #### 2 4323-8 ####SARAH OMER L ([id number])[facility] ([facility])[address] [place] [address] Sodium [Moles/Vol] 137 mmol/L Normal 136-145 [facility] Comment on above: Performed By: #### 2 4323-8 ####SARAH ORTEZER L ([id number])[facility] ([facility])[address] [place] [address] Urea nitrogen [Mass/Vol] 15 mg/dL Normal 6-23 [facility] Comment on above: Performed By: #### 2 4323-8 ####SARAH OMER L ([id number])[facility] ([facility])[address] [place] [address] ECG 12-LEADon 05-25-2023 ECG 12-LEAD Ventricular Rate 107 Atrial Rate 107 P-R Interval 138 QRS Duration 84 Q-T Interval 316 QTC Calculation(Bazett) 421 P [place] 61 R [place] 16 T [place] 70 QRS Count 18 Q Onset 220 P Onset 151 P Offset 201 T Offset 378 QTC Fredericia 383 Diagnosis Sinus tachycardia with frequent Premature ventricular complexes Otherwise normal ECG When compared with ECG of 14-APR-2023 09:19, Premature ventricular complexes are now Present QRS axis Shifted right Criteria for Anterior infarct are no longer Present Criteria for Anterolateral infarct are no longer Present T wave inversion no longer evident in Anterior leads See ED provider note for full interpretation and clinical correlation Confirmed by Aishwarya Crabtree ([id number]) on 05/26/2023 4:17:48 AM Normal [facility] Guidance for removal of CV c atheter with port from [place] 05-25-2023 Uneventful removal o f a right chest Central venous catheter. I was present for and/or performed the critical portions of the procedure and immediately available throughout the entire procedure. Performed and dictated at [facility]. Signed by: Liz Lorenzana 05/25/2023 2:46 PM Dictation workstation: [id number] [facility]AL Interpreted By: Liz Zamorano, STUDY: IR CVC REMOVAL; 05/25/2023 1:57 pm INDICATION: Signs/Symptoms:IV antibiotic therapy complete. Please remove tunneled central catheter. COMPARISON: None. ACCESSION NUMBER(S): [id number] ORDERING CLINICIAN: JIMENEZ JUNIOR TECHNIQUE: INTERVENTIONALIST(S): Liz Lorenzana PA-C CONSENT: The patient/patient's POA/next of kin was informed of the nature of the proposed procedure. The purposes, alternatives, risks, and benefits were explained and discussed. All questions were answered and consent was obtained. MEDICATION/CONTRAST: No additional TIME OUT: A time out was performed immediately prior to procedure start with the interventional team, correctly identifying the patient name, date of , MRN, procedure, anatomy (including marking of site and side), patient position, procedure consent form, relevant laboratory and imaging test results, antibiotic administration, safety precautions, and procedure-specific equipment needs. COMPLICATIONS: No immediate adverse events identified. FINDINGS: The existing skin site over the tunneled catheter insertion site was prepped and draped with maximal sterile manner. With gentle traction, the catheter cuff was externalized and the catheter leading to the jugular vein was completely removed. Hemostasis was obtained using manual compression at the internal jugular vein access site. The incision site was covered with a sterile dressing and tegaderm was subsequently applied. There were no immediate or post-procedural complications. [facility] MM[facility]AL Liz Lorenzana PA-C - 05/25/2023 Interpreted By: Liz Lorenzana, STUDY: IR CVC REMOVAL; 05/25/2023 1:57 pm INDICATION: Signs/Symptoms:IV antibiotic therapy complete. Please remove tunneled central catheter. COMPARISON: None. ACCESSION NUMBER(S): [id number] ORDERING CLINICIAN: JIMENEZ JUNIOR TECHNIQUE: INTERVENTIONALIST(S): Liz Lorenzana PA-C CONSENT: The patient/patient's POA/next of kin was informed of the nature of the proposed procedure. The purposes, alternatives, risks, and benefits were explained and discussed. All questions were answered and consent was obtained. MEDICATION/CONTRAST: No additional TIME OUT: A time out was performed immediately prior to procedure start with the interventional team, correctly identifying the patient name, date of , MRN, procedure, anatomy (including marking of site and side), patient position, procedure consent form, relevant laboratory and imaging test results, antibiotic administration, safety precautions, and procedure-specific equipment needs. COMPLICATIONS: No immediate adverse events identified. FINDINGS: The existing skin site over the tunneled catheter insertion site was prepped and draped with maximal sterile manner. With gentle traction, the catheter cuff was externalized and the catheter leading to the jugular vein was completely removed. Hemostasis was obtained using manual compression at the internal jugular vein access site. The incision site was covered with a sterile dressing and tegaderm was subsequently applied. There were no immediate or post-procedural complications. IMPRESSION: Uneventful removal of a right chest Central venous catheter. I was present for and/or performed the critical portions of the procedure and immediately available throughout the entire procedure. Performed and dictated at [facility]. Signed by: Liz Lorenzana 05/25/2023 2:46 PM Dictation workstation: [id number] [facility] Work Phone: [facility] Work Phone: Radiology Study observation (narrative) [facility] Work Phone: IR CVC REMOVALon 05-25-2023 IR CVC REMOVAL Normal [facility] Comment on above: Order Comment: RICKEY E REMOVE CENTRAL CATHETER PLACED ON 04/19/2023 Magnesiumon 05-25-2023 Magnesium [Mass/Vol] 1.55 mg/dL Low 1.60 - 2.40 mg/dL [facility] Magnesium [Mass/Vol] 1.55 mg/dL Low 1.60-2.40 [facility] Comment on above: Performed By: #### 1 9123-9 ####SARAH Mcknight ([id number])[facility] ([facility])[address] [place] [address] Magnesium [Mass/Vol]on 05-24 Interpretation and review of laboratory results Abnormal [facility] Natriuretic peptide B [Mass/ Vol]on 05-25-2023 Interpretation and review of laboratory results Abnormal [facility] Natriuretic peptide B (Bld) [Mass/Vol] 127 pg/mL High 0 - 99 pg/mL [facility] <100 pg/mL - Heart failure unlikely 100-299 pg/mL - Intermediate probability of acute heart failure exacerbation. Correlate with clinical context and patient history. >=300 pg/mL - Heart Failure likely. Correlate with clinical context and patient history. Biotin interference may cause falsely decreased results. Patients taking a Biotin dose of up to 5 mg/day should refrain from taking Biotin for 24 hours before sample collection. Providers may contact their local laboratory for further information. [facility] Natriuretic peptide B (Bld) [Mass/Vol] 127 pg/mL High 0-99 [facility] Comment on above: Order Comment: <100 pg/mL - Heart failure -349 pg/mL - Intermediate probability of acute heart failure exacerbation. Correlate with clinical context and patient history. >=300 pg/mL - Heart Failure likely. Correlate with clinical context and patient history.Biotin interference may cause falsely decreased results. Patients taking a Biotin dose of up to 5 mg/day should refrain from taking Biotin for 24 hours before sample collection. Providers may contact their local laboratory for further information. Performed By: #### 3 0934-4 ####SARAH Mcknight ([id number])[facility] ([facility])[address] [place] [address] Tropinin I.cardiac panel Hig h sensitivity methodon 05-25-2023 Interpretation and review of laboratory results Normal [facility] Less than 99th percentile of normal range cutoff- Female and children under 18 years old <35 ng/L; Male <54 ng/L: Negative Repeat testing should be performed if clinically indicated. Female and children under 18 years old 35-120 ng/L; Male 54-120 ng/L: Consistent with possible cardiac damage and possible increased clinical risk. Serial measurements may help to assess extent of myocardial damage. >120 ng/L: Consistent with cardiac damage, increased clinical risk and myocardial infarction. Serial measurements may help assess extent of myocardial damage. NOTE: Children less than 1 year old may have higher baseline troponin levels and results should be interpreted in conjunction with the overall clinical context. NOTE: Troponin I testing is performed using a different testing methodology at [facility] than at other [facility]. Direct result comparisons should only be made within the same method. [facility] Troponin I, High Sensitivity on 05-25-2023 Tropinin I.cardiac panel High sensitivity method 38 ng/L 0 - 53 ng/L [facility] Troponin I.cardiac panelon 0 05-25-2023 Tropinin I.cardiac panel High sensitivity method 38 ng/L Normal 0-53 [facility] Comment on above: Order Comment: Less than 99th percentile of normal range cutoff-Female and children under 18 years old <35 ng/L; Male <54 ng/L: NegativeRepeat testing should be performed if clinically indicated.Female and children under 18 years old 35-120 ng/L; Male 54-120 ng/L:Consistent with possible cardiac damage and possible increased clinicalrisk. Serial measurements may help to assess extent of myocardial damage.>120 ng/L: Consistent with cardiac damage, increased clinical risk andmyocardial infarction. Serial measurements may help assess extent ofmyocardial damage.NOTE: Children less than 1 year old may have higher baseline troponinlevels and results should be interpreted in conjunction with the overallclinical context.NOTE: Troponin I testing is performed using a differenttesting methodology at [facility] than [facility]. Direct result comparisons should onlybe made within the same method. Performed By: #### 8 9577-1 ####SARAH Mckngiht ([id number])[facility] ([facility])[address] [place] [address] XR CHEST 2 VIEWSon 4 XR CHEST 2 VIEWS Normal [facility] XR Chest 2 Viewson 4 1. No evidence of ac tanacross cardiopulmonary process. I personally reviewed the images/study and I agree with Krista Lyn DO's (radiology tech) findings as stated. This study was interpreted at [place], [place]. MACRO: None Signed by: Antoine Lane 05/25/2023 7:02 PM Dictation workstation: [id number] MMODAL Interpreted By: Antoine Bowman and Stephens Katherine STUDY: XR CHEST 2 VIEWS; 05/25/2023 6:58 pm INDICATION: Signs/Symptoms:dyspnea earlier today with palpitations. COMPARISON: Chest radiograph 04/15/2023 ACCESSION NUMBER(S): [id number] ORDERING CLINICIAN: SHIVA MCGILL FINDINGS: PA and lateral radiographs of the chest were provided. Postsurgical changes from cervical spinal fusion. CARDIOMEDIASTINAL SILHOUETTE: Cardiomediastinal silhouette is stable in size and configuration. Aortic knob calcifications present. LUNGS: Hazy and streaky bibasilar opacities favored to represent atelectasis. No focal consolidation, pleural effusion, or pneumothorax. ABDOMEN: No remarkable upper abdominal findings. BONES: No acute osseous changes. MMODAL Antoine Lane MD - 05/25/2023 Interpreted By: Antoine Lane and Stephens Katherine STUDY: XR CHEST 2 VIEWS; 05/25/2023 6:58 pm INDICATION: Signs/Symptoms:dyspnea earlier today with palpitations. COMPARISON: Chest radiograph 04/15/2023 ACCESSION NUMBER(S): [id number] ORDERING CLINICIAN: SHIVA MCGILL FINDINGS: PA and lateral radiographs of the chest were provided. Postsurgical changes from cervical spinal fusion. CARDIOMEDIASTINAL SILHOUETTE: Cardiomediastinal silhouette is stable in size and configuration. Aortic knob calcifications present. LUNGS: Hazy and streaky bibasilar opacities favored to represent atelectasis. No focal consolidation, pleural effusion, or pneumothorax. ABDOMEN: No remarkable upper abdominal findings. BONES: No acute osseous changes. IMPRESSION: 1. No evidence of acute cardiopulmonary process. I personally reviewed the images/study and I agree with Krista Lyn DO's (radiology tech) findings as stated. This study was interpreted at [place], [place]. MACRO: None Signed by: Antoine Lane 05/25/2023 7:02 PM Dictation workstation: [id number] [facility] Work Phone: Radiology Study observation (narrative) [facility] Work Phone: XR Chest 2 ViewsOrdered By: Antoine Lane on 05-25-2023 [facility] Work Phone: BMPon 05-10-2023 Anion gap [Moles/Vol] 8 mmol/L Normal 6-16 [facility] Comment on above: Performed By: #### 1 [id number], [id number], [id number] ####[facility] [address] [place] [address] BUN/Creat Ratio 26 No Units High 10-20 [facility] Comment on above: Performed By: #### 1 7833090, 6772861, [id number] ####[facility] [address] [place] [address] Calcium [Mass/Vol] 10.9 mg/dL Normal 8.9-11.1 [facility] Comment on above: Performed By: #### 1 5992200, [id number], [id number] ####[facility] [address] [place] [address] Chloride [Moles/Vol] 110 mmol/L Normal 101-111 [facility] Comment on above: Performed By: #### 1 9292466, [id number], 1435094 ####[facility] [address] [place] [address] CO2 [Moles/Vol] 23 mmol/L Normal 21-31 [facility] Comment on above: Performed By: #### 1 1492815, 6325715, [id number] ####[facility] [address] [place] [address] Creatinine [Mass/Vol] 0.5 mg/dL Normal 0.5-1.3 [facility] Comment on above: Performed By: #### 1 8077167, 3118570, 5172286 ####[facility] [address] [place] [address] Glucose [Mass/Vol] 116 mg/dL Normal 55-199 [facility] Comment on above: Performed By: #### 1 4799528, 0984875, 8093065 ####[facility] [address] [place] [address] Potassium [Moles/Vol] 4.4 mmol/L Normal 3.5-5.3 [facility] Comment on above: Performed By: #### 1 2000274, 1772146, 6326441 ####[facility] [address] [place] [address] Sodium [Moles/Vol] 137 mmol/L Normal 135-145 [facility] Comment on above: Performed By: #### 1 1677714, 9559923, 1943554 ####[address] [address] Urea nitrogen [Mass/Vol] 13 mg/dL Normal 5-21 [facility] Comment on above: Performed By: #### 1 [id number], 0443891, 5502086 ####[facility] [address] [place] [address] CBC w/ Auto Diffon 4 Anisocytosis Ql (Bld) PRESENT Invalid Interpretation Code [facility] Comment on above: Performed By: #### 1 [id number], 8421552, [id number] ####[address] [address] Elliptocytes PRESENT Invalid Interpretation Code [facility] Comment on above: Performed By: #### 1 [id number], [id number], 6462605 ####[address] [address] Poikilocytosis PRESENT Invalid Interpretation Code [facility] Comment on above: Performed By: #### 1 [id number], 9885390, [id number] ####[facility] [address] [place] [address] RBC morphology finding Nom (Bld) SEE MORPHOLOGY Invalid Interpretation Code [facility] Comment on above: Performed By: #### 1 2733789, 7339579, 7540560 ####[address] [place] [address] Schistocytes PRESENT Invalid Interpretation Code [facility] Comment on above: Performed By: #### 1 6780962, 1667014, 6330839 ####[address] [place] [address] Basophil Absolute 0.0 E9/L Normal 0.0-0.2 [facility] Comment on above: Performed By: #### 1 4844773, 8557569, 6603785 ####[address] [address] Basophils/100 WBC (Bld) 0.7 % Normal 0.0-2.0 [facility] Comment on above: Performed By: #### 1 2181818, 2714678, 7044291 ####[address] [address] Eos Absolute 0.4 E9/L Normal 0.0-0.5 [facility] Comment on above: Performed By: #### 1 3032236, 8303878, 1689409 ####[address] [address] Eosinophils/100 WBC (Bld) 6.3 % Normal 0.0-8.0 [facility] Comment on above: Performed By: #### 1 5236447, 0693573, 5474056 ####[address] [address] Erythrocyte distribution width (RBC) [Ratio] 25.0 % High 10.9-14.2 [facility] Comment on above: Performed By: #### 1 9255355, 5110598, 5230883 ####[address] [address] Hematocrit (Bld) [Volume fraction] 28.0 % Low 37.7-49.0 [facility] Comment on above: Performed By: #### 1 0687573, 2219191, 9508115 ####[address] [address] Hemoglobin (Bld) [Mass/Vol] 8.9 g/dL Low 13.5-17.5 [facility] Comment on above: Performed By: #### 1 6484298, 7369205, 9865591 ####[address] [address] Lymph Absolute 1.4 E9/L Normal 1.0-4.0 [facility] Comment on above: Performed By: #### 1 1393248, 0590574, 2124397 ####[address] [address] Lymphocytes/100 WBC (Bld) 21.2 % Normal 14.0-50.0 [facility] Comment on above: Performed By: #### 1 6520146, 0688547, 2044161 ####[address] [address] MCH (RBC) [Entitic mass] 27.3 pg Normal 27.0-34.0 [facility] Comment on above: Performed By: #### 1 6004348, 4856009, 0135408 ####[address] [address] MCHC (RBC) [Mass/Vol] 32.1 g/dL Normal 31.4-36.0 [facility] Comment on above: Performed By: #### 1 0830768, 9050016, 9331268 ####[address] [address] MCV (RBC) [Entitic vol] 85.0 fL Normal 80.0-100.0 [facility] Comment on above: Performed By: #### 1 1072064, 8309843, 5880321 ####[address] [address] Mcpherson Absolute 0.4 E9/L Normal 0.2-1.0 [facility] Comment on above: Performed By: #### 1 9030724, 6941165, 6143613 ####[address] [address] Monocytes/100 WBC (Bld) 5.9 % Normal 4.0-14.0 [facility] Comment on above: Performed By: #### 1 3358914, 3640466, 4621137 ####[facility] [address] [place] [address] Neutro Absolute 4.4 E9/L Normal 2.0-7.5 [facility] Comment on above: Performed By: #### 1 6762136, 5255665, 1376548 ####[address] [address] Neutro Auto 65.9 % Normal 36.0-75.0 [facility] Comment on above: Performed By: #### 1 0074213, 0526263, 9847996 ####[address] [address] Platelet 242.0 E9/L Normal 150.0-500.0 [facility] Comment on above: Performed By: #### 1 3013201, 9767962, 7963831 ####[address] [address] Platelet mean volume (Bld) [Entitic vol] 6.7 fL Normal 6.4-10.8 [facility] Comment on above: Performed By: #### 1 9834559, 7164253, 5744876 ####[address] [address] RBC 3.3 E12/L Low 4.3-5.9 [facility] Comment on above: Result Comment: Resu lts are consistent with previous pathologist review on 04/13/23 Performed By: #### 1 0880291, 3286258, 7435829 ####[address] [place] [address] WBC 6.7 E9/L Normal 4.0-11.0 [facility] Comment on above: Performed By: #### 1 6802503, 5909597, 7103071 ####[address] [address] eGFRon 05-10-2023 eGFR 112 mL/min/1.73 m2 Normal >=59 [facility] Comment on above: Order Comment: Order added by Discern Expert. Performed By: #### 1 0697693, 9605690, 7747986 ####[facility] [address] [place] [address] BMPon 05-03-2023 Anion gap [Moles/Vol] 7 mmol/L Normal 6-16 [facility] Comment on above: Performed By: #### 2 760741, 5314423, 02071147 ####[facility] [address] [place] [address] BUN/Creat Ratio 16 No Units Normal 10-20 [facility] Comment on above: Performed By: #### 2 472829, 1202825, 72610735 ####[facility] [address] [place] [address] Calcium [Mass/Vol] 10.9 mg/dL Normal 8.9-11.1 [facility] Comment on above: Performed By: #### 2 269175, 7383965, 10115969 ####[facility] [address] [place] [address] Chloride [Moles/Vol] 109 mmol/L Normal 101-111 [facility] Comment on above: Performed By: #### 2 487482, 5247934, 37954519 ####[facility] [address] [place] [address] CO2 [Moles/Vol] 23 mmol/L Normal 21-31 [facility] Comment on above: Performed By: #### 2 556464, 8198706, 54691875 ####[facility] [address] [place] [address] Creatinine [Mass/Vol] 0.5 mg/dL Normal 0.5-1.3 [facility] Comment on above: Performed By: #### 2 295065, 8704209, 75266936 ####[facility] [address] [place] [address] Glucose [Mass/Vol] 115 mg/dL Normal 55-199 [facility] Comment on above: Performed By: #### 2 975088, 2442014, 41837453 ####[facility] [address] [place] [address] Potassium [Moles/Vol] 5.0 mmol/L Normal 3.5-5.3 [facility] Comment on above: Performed By: #### 2 406267, 3773538, 00144211 ####[facility] [address] [place] [address] Sodium [Moles/Vol] 134 mmol/L Low 135-145 [facility] Comment on above: Performed By: #### 2 146046, 0914374, 98921961 ####[facility] [address] [place] [address] Urea nitrogen [Mass/Vol] 8 mg/dL Normal 5-21 [facility] Comment on above: Performed By: #### 2 222292, 2512887, 40922447 ####[facility] [address] [place] [address] CBC w/ Auto Diffon 4 Anisocytosis Ql (Bld) PRESENT Invalid Interpretation Code [facility] Comment on above: Performed By: #### 2 191688, 6022455, 72972752 ####[facility] [address] [place] [address] Ovalocytes PRESENT Invalid Interpretation Code [facility] Comment on above: Performed By: #### 2 460420, 6772418, 83709525 ####[facility] [address] [place] [address] Basophil Absolute 0.0 E9/L Normal 0.0-0.2 [facility] Comment on above: Performed By: #### 2 908149, 7459429, 00264706 ####[facility] [address] [place] [address] Basophils/100 WBC (Bld) 0.6 % Normal 0.0-2.0 [facility] Comment on above: Performed By: #### 2 958499, 3251709, 75749695 ####[facility] [address] [place] [address] Eos Absolute 0.2 E9/L Normal 0.0-0.5 [facility] Comment on above: Performed By: #### 2 667323, 6732754, 92705095 ####[address] [address] Eosinophils/100 WBC (Bld) 2.6 % Normal 0.0-8.0 [facility] Comment on above: Performed By: #### 2 636081, 7659106, 28829372 ####[address] [address] Erythrocyte distribution width (RBC) [Ratio] 26.9 % High 10.9-14.2 [facility] Comment on above: Performed By: #### 2 862149, 7740894, 09499451 ####[address] [address] Hematocrit (Bld) [Volume fraction] 28.0 % Low 37.7-49.0 [facility] Comment on above: Performed By: #### 2 685832, 8519949, 49996346 ####[address] [address] Hemoglobin (Bld) [Mass/Vol] 9.1 g/dL Low 13.5-17.5 [facility] Comment on above: Performed By: #### 2 634730, 0964376, 00666767 ####[address] [address] Lymph Absolute 1.3 E9/L Normal 1.0-4.0 [facility] Comment on above: Performed By: #### 2 912753, 5224735, 26581754 ####[address] [address] Lymphocytes/100 WBC (Bld) 17.8 % Normal 14.0-50.0 [facility] Comment on above: Performed By: #### 2 104135, 1849616, 09790458 ####[address] [place] [address] MCH (RBC) [Entitic mass] 27.3 pg Normal 27.0-34.0 [facility] Comment on above: Performed By: #### 2 468440, 6596717, 69002054 ####[address] [address] MCHC (RBC) [Mass/Vol] 33.1 g/dL Normal 31.4-36.0 [facility] Comment on above: Performed By: #### 2 258875, 6008880, 92642502 ####[address] [address] MCV (RBC) [Entitic vol] 82.4 fL Normal 80.0-100.0 [facility] Comment on above: Performed By: #### 2 370722, 1687953, 62162187 ####[address] [address] Mcpherson Absolute 0.3 E9/L Normal 0.2-1.0 [facility] Comment on above: Performed By: #### 2 930840, 6650685, 50080335 ####[address] [address] Monocytes/100 WBC (Bld) 4.0 % Normal 4.0-14.0 [facility] Comment on above: Performed By: #### 2 426505, 6894913, 25519194 ####[address] [place] [address] Neutro Absolute 5.7 E9/L Normal 2.0-7.5 [facility] Comment on above: Performed By: #### 2 708919, 4694230, 17295982 ####[address] [address] Neutro Auto 75.0 % Normal 36.0-75.0 [facility] Comment on above: Performed By: #### 2 881216, 8140906, 39233558 ####[address] [place] [address] Platelet 283.0 E9/L Normal 150.0-500.0 [facility] Comment on above: Performed By: #### 2 501689, 3564821, 68030406 ####[address] [place] [address] Platelet mean volume (Bld) [Entitic vol] 7.2 fL Normal 6.4-10.8 [facility] Comment on above: Performed By: #### 2 918868, 8368028, 94956033 ####[address] [place] [address] RBC 3.3 E12/L Low 4.3-5.9 [facility] Comment on above: Performed By: #### 2 109549, 4719299, 83114185 ####[address] [address] WBC 7.6 E9/L Normal 4.0-11.0 [facility] Comment on above: Performed By: #### 2 920379, 8548684, 26642695 ####[address] [place] [address] Tacrolimus Levelon 4 Tacrolimus LC/MS/MS (Bld) [Mass/Vol] 3.9 ng/mL Invalid Interpretation Code 2.0-20.0 [facility] Comment on above: Result Comment: This test was developed and its performance characteristicsdetermined by [facility]. It has not been cleared or approvedby the Food and Drug Administration.Trough (immediately followingtransplant) 15.0Trough (steady state, 2 weeks ormore after transplant): 3.0 - 8.0Performed by LC-MS/MS technology.Performed at: [address] [id number] MD Oscar Lee Performed By: #### 1 0419888, 54195839, 8210634 ####[facility] [address] [place] [address] eGFRon 05-03-2023 eGFR 112 mL/min/1.73 m2 Normal >=59 [facility] Comment on above: Order Comment: Order added by Discern Expert. Performed By: #### 2 580792, 0300942, 42852077 ####[facility] [address] [place] [address] BMPon 04-29-2023 Anion gap [Moles/Vol] 11 mmol/L Normal 6-16 [facility] Comment on above: Performed By: #### 1 2240168, 29385726, 6678101 ####[facility] [address] [place] [address] BUN/Creat Ratio 12 No Units Normal 10-20 [facility] Comment on above: Performed By: #### 1 2767720, 26900232, 7266747 ####[facility] [address] [place] [address] Calcium [Mass/Vol] 10.5 mg/dL Normal 8.9-11.1 [facility] Comment on above: Performed By: #### 1 3584131, 31622047, 4037549 ####[facility] [address] [place] [address] Chloride [Moles/Vol] 109 mmol/L Normal 101-111 [facility] Comment on above: Performed By: #### 1 5373331, 87528701, 8159388 ####[facility] [address] [place] [address] CO2 [Moles/Vol] 22 mmol/L Normal 21-31 [facility] Comment on above: Performed By: #### 1 5052104, 51786605, 1763381 ####[facility] [address] [place] [address] Creatinine [Mass/Vol] 0.6 mg/dL Normal 0.5-1.3 [facility] Comment on above: Performed By: #### 1 3940697, 55099655, 6635478 ####[facility] [address] [place] [address] Glucose [Mass/Vol] 96 mg/dL Normal 55-199 [facility] Comment on above: Performed By: #### 1 2107652, 17674651, 5146545 ####[facility] [address] [facility] [place] [address] Potassium [Moles/Vol] 4.9 mmol/L Normal 3.5-5.3 [facility] Comment on above: Performed By: #### 1 6929109, 07712753, 5493275 ####[facility] [address] [place] [address] Sodium [Moles/Vol] 137 mmol/L Normal 135-145 [facility] Comment on above: Performed By: #### 1 4648335, 67016692, 7068569 ####[facility] [address] [place] [address] Urea nitrogen [Mass/Vol] 7 mg/dL Normal 5-21 [facility] Comment on above: Performed By: #### 1 0339021, 54741456, 7748769 ####[facility] [address] [place] [address] eGFRon 04-29-2023 eGFR 106 mL/min/1.73 m2 Normal >=59 [facility] Comment on above: Order Comment: Order added by Discern Expert. Performed By: #### 1 2940165, 12817827, 2692191 ####[facility] [address] [place] [address] BMPon 04-26-2023 Anion gap [Moles/Vol] 10 mmol/L Normal 6-16 [facility] Comment on above: Performed By: #### 2 561925, 86339182 ####[facility] [address] [place] [address] BUN/Creat Ratio 15 No Units Normal 10-20 [facility] Comment on above: Performed By: #### 2 048610, 99144412 ####[facility] [address] [place] [address] Calcium [Mass/Vol] 10.3 mg/dL Normal 8.9-11.1 [facility] Comment on above: Performed By: #### 2 432688, 20371700 ####[facility] [address] [place] [address] Chloride [Moles/Vol] 109 mmol/L Normal 101-111 [facility] Comment on above: Performed By: #### 2 834554, 49527366 ####[facility] [address] [place] [address] CO2 [Moles/Vol] 22 mmol/L Normal 21-31 [facility] Comment on above: Performed By: #### 2 546899, 31969504 ####[facility] [address] [place] [address] Creatinine [Mass/Vol] 0.6 mg/dL Normal 0.5-1.3 [facility] Comment on above: Performed By: #### 2 135507, 26220891 ####[facility] [address] [place] [address] Glucose [Mass/Vol] 148 mg/dL Normal 55-199 [facility] Comment on above: Performed By: #### 2 292189, 68449476 ####[facility] [address] [place] [address] Potassium [Moles/Vol] 4.6 mmol/L Normal 3.5-5.3 [facility] Comment on above: Performed By: #### 2 143084, 10247182 ####[facility] [address] [place] [address] Sodium [Moles/Vol] 136 mmol/L Normal 135-145 [facility] Comment on above: Performed By: #### 2 279427, 88356312 ####[facility] [address] [place] [address] Urea nitrogen [Mass/Vol] 9 mg/dL Normal 5-21 [facility] Comment on above: Performed By: #### 2 233847, 70282823 ####[facility] [address] [place] [address] CBC w/ Auto Diffon 4 Anisocytosis Ql (Bld) PRESENT Invalid Interpretation Code [facility] Comment on above: Performed By: #### 2 084692 ####[facility] [address] [place] [address] RBC morphology finding Nom (Bld) SEE MORPHOLOGY Invalid Interpretation Code [facility] Comment on above: Performed By: #### 2 633514 ####[address] [address] Basophil Absolute 0.1 E9/L Normal 0.0-0.2 [facility] Comment on above: Performed By: #### 2 568784 ####[address] [address] Basophils/100 WBC (Bld) 1.0 % Normal 0.0-2.0 [facility] Comment on above: Performed By: #### 2 363120 ####[facility] [address] [place] [address] Eos Absolute 0.1 E9/L Normal 0.0-0.5 [facility] Comment on above: Performed By: #### 2 483865 ####[address] [address] Eosinophils/100 WBC (Bld) 1.0 % Normal 0.0-8.0 [facility] Comment on above: Performed By: #### 2 772256 ####[facility] [address] [place] [address] Erythrocyte distribution width (RBC) [Ratio] 27.3 % High 10.9-14.2 [facility] Comment on above: Performed By: #### 2 139825 ####[facility] [address] [place] [address] Hematocrit (Bld) [Volume fraction] 27.0 % Low 37.7-49.0 [facility] Comment on above: Performed By: #### 2 359153 ####[facility] [address] [place] [address] Hemoglobin (Bld) [Mass/Vol] 8.8 g/dL Low 13.5-17.5 [facility] Comment on above: Performed By: #### 2 958236 ####[facility] [address] [place] [address] Lymph Absolute 1.1 E9/L Normal 1.0-4.0 [facility] Comment on above: Performed By: #### 2 686902 ####[address] [address] Lymphocytes/100 WBC (Bld) 17.3 % Normal 14.0-50.0 [facility] Comment on above: Performed By: #### 2 189133 ####[address] [address] MCH (RBC) [Entitic mass] 26.6 pg Low 27.0-34.0 [facility] Comment on above: Performed By: #### 2 405251 ####[address] [address] MCHC (RBC) [Mass/Vol] 32.8 g/dL Normal 31.4-36.0 [facility] Comment on above: Performed By: #### 2 303895 ####[address] [address] MCV (RBC) [Entitic vol] 81.2 fL Normal 80.0-100.0 [facility] Comment on above: Performed By: #### 2 837227 ####[facility] [address] [place] [address] Mcpherson Absolute 0.2 E9/L Normal 0.2-1.0 [facility] Comment on above: Performed By: #### 2 420957 ####[address] [address] Monocytes/100 WBC (Bld) 3.6 % Low 4.0-14.0 [facility] Comment on above: Performed By: #### 2 914338 ####[facility] [address] [place] [address] Neutro Absolute 4.7 E9/L Normal 2.0-7.5 [facility] Comment on above: Performed By: #### 2 565324 ####[facility] [address] [place] [address] Neutro Auto 77.1 % High 36.0-75.0 [facility] Comment on above: Performed By: #### 2 605576 ####[facility] [address] [place] [address] Platelet 258.0 E9/L Normal 150.0-500.0 [facility] Comment on above: Performed By: #### 2 963463 ####[facility] [address] [place] [address] Platelet mean volume (Bld) [Entitic vol] 7.0 fL Normal 6.4-10.8 [facility] Comment on above: Performed By: #### 2 550438 ####[facility] [address] [place] [address] RBC 3.3 E12/L Low 4.3-5.9 [facility] Comment on above: Performed By: #### 2 1080[address] ####[facility] [address] [place] [address] WBC 6.1 E9/L Normal 4.0-11.0 [facility] Comment on above: Performed By: #### 2 425629 ####[facility] [address] [place] [address] eGFRon 04-26-2023 eGFR 106 mL/min/1.73 m2 Normal >=59 [facility] Comment on above: Order Comment: Order added by Discern Expert. Performed By: #### 2 711529, 06746751 ####[facility] [address] [place] [address] Physician Orderon 04-22-2023 Physician Order [id number] Normal [facility] Fungal Culture/Smearon 04-21 Fungus identified Cx Nom (Unsp spec) 3 colonies Slime parapsilosis Abnormal [facility] Work Phone: Fungus identified Cx Nom (Un sp spec)on 04-21-2023 Fungus identified Fungus stain Nom (Unsp spec) No fungal elements seen [facility] Work Phone: Interpretation and review of laboratory results Abnormal [facility] Work Phone: [facility] Work Phone: Glucose Test strip manual (B ld) [Mass/Vol]on 04-21-2023 Glucose [Mass/Vol] 106 mg/dL High 74 - 99 mg/dL [facility] Interpretation and review of laboratory results Abnormal [facility] Glucose [Mass/Vol] 106 mg/dL High 74-99 [facility] Comment on above: Performed By: #### 2 341-6 ####SARAH Mcknight ([id number])[facility] ([facility])[address] [place] [address] Glucose [Mass/Vol] 82 mg/dL 74 - 99 mg/dL [facility] Interpretation and review of laboratory results Normal [facility] Glucose [Mass/Vol] 82 mg/dL Normal 74-99 [facility] Comment on above: Performed By: #### 2 341-6 ####SARAH Mcknight ([id number])[facility] ([facility])[address] [place] [address] C Blood Charcoalon Blood Culture Charcoal Normal [facility] Comment on above: Performed By: #### 1 6210316 ####[facility] [address] [place] [address] CBC panel Auto (Bld)on 04-20 Erythrocyte distribution width (RBC) [Ratio] 24.2 % High 11.5 - 14.5 % [facility] Hematocrit (Bld) [Volume fraction] 26.1 % Low 41.0 - 52.0 % [facility] Hemoglobin (Bld) [Mass/Vol] 8.6 g/dL Low 13.5 - 17.5 g/dL [facility] Interpretation and review of laboratory results Abnormal [facility] MCH (RBC) [Entitic mass] 26.3 pg 26.0 - 34.0 pg [facility] MCHC (RBC) [Mass/Vol] 33.0 g/dL 32.0 - 36.0 g/dL [facility] MCV (RBC) [Entitic vol] 80 fL 80 - 100 fL [facility] Nucleated RBC/100 WBC (Bld) [Ratio] 0.0 % [facility] Platelets (Bld) [#/Vol] 249 10*3/uL [facility] RBC (Bld) [#/Vol] 3.27 10*6/uL Low [facility] WBC (Bld) [#/Vol] 6.6 10*3/uL [facility] Erythrocyte distribution width (RBC) [Ratio] 24.2 % High 11.5-14.5 [facility] Comment on above: Performed By: #### 5 8410-2 ####SARAH Mcknight ([id number])[facility] ([facility])[address] [place] [address] Hematocrit (Bld) [Volume fraction] 26.1 % Low 41.0-52.0 [facility] Comment on above: Performed By: #### 5 8410-2 ####SARAH Mcknight (69579)[facility] ([facility])[address] [place] [address] Hemoglobin (Bld) [Mass/Vol] 8.6 g/dL Low 13.5-17.5 [facility] Comment on above: Performed By: #### 5 8410-2 ####SARAH Mcknight (95027)[facility] ([facility])[address] [place] [address] MCH (RBC) [Entitic mass] 26.3 pg Normal 26.0-34.0 [facility] Comment on above: Performed By: #### 5 8410-2 ####SARAH Mcknight (62658)[facility] ([facility])[address] [place] [address] MCHC (RBC) [Mass/Vol] 33.0 g/dL Normal 32.0-36.0 [facility] Comment on above: Performed By: #### 5 8410-2 ####SARAH Mcknight ([id number])[facility] ([facility])[address] [place] [address] MCV (RBC) [Entitic vol] 80 fL Normal 80-100 [facility] Comment on above: Performed By: #### 5 8410-2 ####SARAH Mcknight ([id number])[facility] ([facility])[address] [place] [address] Nucleated RBC/100 WBC (Bld) [Ratio] 0.0 /100 WBCs Normal 0.0-0.0 [facility] Comment on above: Performed By: #### 5 8410-2 ####SARAH Mcknight (80036)[facility] ([facility])[address] [place] [address] Platelets (Bld) [#/Vol] 249 x10*3/uL Normal 150-450 [facility] Comment on above: Performed By: #### 5 8410-2 ####SARAH Mcknight ([id number])[facility] ([facility])[address] [place] [address] RBC (Bld) [#/Vol] 3.27 x10*6/uL Low 4.50-5.90 [facility] Comment on above: Performed By: #### 5 8410-2 ####SARAH Mcknight (85462)[facility] ([facility])[address] [place] [address] WBC (Bld) [#/Vol] 6.6 x10*3/uL Normal 4.4-11.3 [facility] Comment on above: Performed By: #### 5 8410-2 ####SARAH Mcknight ([id number])[facility] ([facility])[address] [place] [address] Glucose Test strip manual (B ld) [Mass/Vol]on 04-20-2023 Glucose [Mass/Vol] 110 mg/dL High 74 - 99 mg/dL [facility] Interpretation and review of laboratory results Abnormal [facility] Glucose [Mass/Vol] 110 mg/dL High 74-99 [facility] Comment on above: Performed By: #### 2 341-6 ####SARAH Mcknight ([id number])[facility] ([facility])[address] [place] [address] Glucose [Mass/Vol] 114 mg/dL High 74 - 99 mg/dL [facility] Interpretation and review of laboratory results Abnormal [facility] Glucose [Mass/Vol] 114 mg/dL High 74-99 [facility] Comment on above: Performed By: #### 2 341-6 ####SARAH Mcknight ([id number])[facility] ([facility])[address] [place] [address] Glucose [Mass/Vol] 97 mg/dL 74 - 99 mg/dL [facility] Interpretation and review of laboratory results Normal [facility] Glucose [Mass/Vol] 97 mg/dL Normal 74-99 [facility] Comment on above: Performed By: #### 2 341-6 ####SARAH Mcknight ([id number])[facility] ([facility])[address] [place] [address] Glucose [Mass/Vol] 78 mg/dL 74 - 99 mg/dL [facility] Interpretation and review of laboratory results Normal [facility] Glucose [Mass/Vol] 78 mg/dL Normal 74-99 [facility] Comment on above: Performed By: #### 2 341-6 ####SARAH Mcknight ([id number])[facility] ([facility])[address] [place] [address] Guidance for placement of tu nneled catheter in Chest Pleuraon 04-20-2023 [facility] MM[facility]AL [facility] MM[facility] Work Phone: Guidance for placement of tu nneled catheter in Chest PleuraOrdered By: Julio César Ogden on 04-20-2023 [facility] Work Phone: Renal function 2000 panelon 04-20-2023 Albumin BCP dye [Mass/Vol] 2.3 g/dL Low 3.4 - 5.0 g/dL [facility] Anion gap [Moles/Vol] 8 mmol/L Low 10 - 2 0 mmol/L [facility] Calcium [Mass/Vol] 10.6 mg/dL 8.6 - 10. 6 mg/dL [facility] Chloride [Moles/Vol] 111 mmol/L High 98 - 10 7 mmol/L [facility] CO2 [Moles/Vol] 23 mmol/L 21 - 32 mmol/L [facility] Creatinine [Mass/Vol] 0.41 mg/dL Low 0.50 - 1.30 mg/dL [facility] eGFR - PINF [facility] Glucose [Mass/Vol] 79 mg/dL 74 - 99 mg/dL [facility] Interpretation and review of laboratory results Abnormal [facility] Phosphate [Mass/Vol] 2.4 mg/dL Low 2.5 - 4 .9 mg/dL [facility] Potassium [Moles/Vol] 4.4 mmol/L 3.5 - 5.3 mmol/L [facility] Sodium [Moles/Vol] 138 mmol/L 136 - 145 mmol/L [facility] Urea nitrogen [Mass/Vol] 10 mg/dL 6 - 23 mg/dL [facility] Albumin BCP dye [Mass/Vol] 2.3 g/dL Low 3.4-5.0 [facility] Comment on above: Performed By: #### 2 4362-6 ####SARAH Mcknight ([id number])[facility] ([facility])[address] [place] [address] Anion gap [Moles/Vol] 8 mmol/L Low 10-20 [facility] Comment on above: Performed By: #### 2 4362-6 ####SARAH ORTEZER L ([id number])[facility] ([facility])[address] [place] [address] Calcium [Mass/Vol] 10.6 mg/dL Normal 8.6-10.6 [facility] Comment on above: Performed By: #### 2 4362-6 ####SARAH MORENOTZER L ([id number])[facility] ([facility])[address] [place] [address] Chloride [Moles/Vol] 111 mmol/L High 98-107 [facility] Comment on above: Performed By: #### 2 4362-6 ####SARAH MORENOTZER L ([id number])[facility] ([facility])[address] [place] [address] CO2 [Moles/Vol] 23 mmol/L Normal 21-32 [facility] Comment on above: Performed By: #### 2 4362-6 ####SARAH OMER L ([id number])[facility] ([facility])[address] [place] [address] Creatinine [Mass/Vol] 0.41 mg/dL Low 0.50-1.30 [facility] Comment on above: Performed By: #### 2 4362-6 ####SARAH OMER L ([id number])[facility] ([facility])[address] [place] [address] GFR/1.73 sq M.predicted MDRD (S/P/Bld) [Vol rate/Area] mL/min/{1.73_m2} Normal >60 [facility] Comment on above: Result Comment: Calc ulations of estimated GFR are performed using the 2020 CKD-EPI Study Refit equation without the race variable for the IDMS-Traceable creatinine methods.https://jasn.asnjournals.org/content///A SN.0663942090 Performed By: #### 2 4362-6 ####SARAH Mcknight ([id number])[facility] ([facility])[address] [place] [address] Glucose [Mass/Vol] 79 mg/dL Normal 74-99 [facility] Comment on above: Performed By: #### 2 4362-6 ####SARAH Mcknight ([id number])[facility] ([facility])[address] [place] [address] Phosphate [Mass/Vol] 2.4 mg/dL Low 2.5-4.9 [facility] Comment on above: Result Comment: The performance characteristics of phosphorus testing in heparinized plasma have been validated by the individual laboratory site where testing is performed. Testing on heparinized plasma is not approved by the FDA; however, such approval is not necessary. Performed By: #### 2 4362-6 ####SARAH Mcknight ([id number])[facility] ([facility])[address] [place] [address] Potassium [Moles/Vol] 4.4 mmol/L Normal 3.5-5.3 [facility] Comment on above: Performed By: #### 2 4362-6 ####SARAH Mcknight ([id number])[facility] ([facility])[address] [place] [address] Sodium [Moles/Vol] 138 mmol/L Normal 136-145 [facility] Comment on above: Performed By: #### 2 4362-6 ####SARAH Mcknight ([id number])[facility] ([facility])[address] [place] [address] Urea nitrogen [Mass/Vol] 10 mg/dL Normal 6-23 [facility] Comment on above: Performed By: #### 2 4362-6 ####SARAH Mcknight ([id number])[facility] ([facility])[address] [place] [address] Tacrolimuson 04-20-2023 Tacrolimus (Bld) [Mass/Vol] 5.2 ng/mL Normal <=15.0 [facility] Comment on above: Order Comment: Rickey e draw prior giving the medicationNOTE: Result was obtained using achemiluminescent microparticle immunoassay(CMIA) on the Tunnel Mucker i system.Optimal therapeutic ranges for immunosuppressantdrugs depend upon an individualpatient's current clinical state, type oforgan transplant, time post-transplant,co-administration of other immunosuppressants,and other clinical factors. The results ofthis test should be correlated with additionalclinical and laboratory data before changesin treatment regimens are made. Performed By: #### 1 1253-2 ####SARAH Mcknight ([id number])[facility] ([facility])[address] [place] [address] Tacrolimus (Bld) [Mass/Vol]o n 04-20-2023 Interpretation and review of laboratory results Normal [facility] Work Phone: [facility] Work Phone: [facility] Work Phone: Tacrolimus levelon Tacrolimus (Bld) [Mass/Vol] 5.2 ng/mL NINF - 15.0 ng/mL [facility] Work Phone: CBC panel Auto (Bld)on 04-19 Erythrocyte distribution width (RBC) [Ratio] 24.1 % High 11.5 - 14.5 % [facility] Hematocrit (Bld) [Volume fraction] 27.7 % Low 41.0 - 52.0 % [facility] Hemoglobin (Bld) [Mass/Vol] 8.8 g/dL Low 13.5 - 17.5 g/dL [facility] Interpretation and review of laboratory results Abnormal [facility] MCH (RBC) [Entitic mass] 25.4 pg Low 26.0 - 34.0 pg [facility] MCHC (RBC) [Mass/Vol] 31.8 g/dL Low 32.0 - 36.0 g/dL [facility] MCV (RBC) [Entitic vol] 80 fL 80 - 100 fL [facility] Nucleated RBC/100 WBC (Bld) [Ratio] 0.0 % [facility] Platelets (Bld) [#/Vol] 295 10*3/uL [facility] RBC (Bld) [#/Vol] 3.47 10*6/uL Low [facility] WBC (Bld) [#/Vol] 8.0 10*3/uL [facility] Erythrocyte distribution width (RBC) [Ratio] 24.1 % High 11.5-14.5 [facility] Comment on above: Performed By: #### 5 8410-2 ####SARAH Mcknight ([id number])[facility] ([facility])[address] [place] [address] Hematocrit (Bld) [Volume fraction] 27.7 % Low 41.0-52.0 [facility] Comment on above: Performed By: #### 5 8410-2 ####SARAH Mcknight ([id number])[facility] ([facility])[address] [place] [address] Hemoglobin (Bld) [Mass/Vol] 8.8 g/dL Low 13.5-17.5 [facility] Comment on above: Performed By: #### 5 8410-2 ####SARAH Mcknight ([id number])[facility] ([facility])[address] [place] [address] MCH (RBC) [Entitic mass] 25.4 pg Low 26.0-34.0 [facility] Comment on above: Performed By: #### 5 8410-2 ####SARAH Mcknight ([id number])[facility] ([facility])[address] [place] [address] MCHC (RBC) [Mass/Vol] 31.8 g/dL Low 32.0-36.0 [facility] Comment on above: Performed By: #### 5 8410-2 ####SARAH Mcknight ([id number])[facility] ([facility])[address] [place] [address] MCV (RBC) [Entitic vol] 80 fL Normal 80-100 [facility] Comment on above: Performed By: #### 5 8410-2 ####SARAH Mcknight ([id number])[facility] ([facility])[address] [place] [address] Nucleated RBC/100 WBC (Bld) [Ratio] 0.0 /100 WBCs Normal 0.0-0.0 [facility] Comment on above: Performed By: #### 5 8410-2 ####SARAH Mcknight ([id number])[facility] ([facility])[address] [place] [address] Platelets (Bld) [#/Vol] 295 x10*3/uL Normal 150-450 [facility] Comment on above: Performed By: #### 5 8410-2 ####SARAH Mcknight ([id number])[facility] ([facility])[address] [place] [address] RBC (Bld) [#/Vol] 3.47 x10*6/uL Low 4.50-5.90 [facility] Comment on above: Performed By: #### 5 8410-2 ####SARAH Mcknight ([id number])[facility] ([facility])[address] [place] [address] WBC (Bld) [#/Vol] 8.0 x10*3/uL Normal 4.4-11.3 [facility] Comment on above: Performed By: #### 5 8410-2 ####SARAH Mcknight ([id number])[facility] ([facility])[address] [place] [address] Glucose Test strip manual (B ld) [Mass/Vol]on 04-19-2023 Glucose [Mass/Vol] 98 mg/dL 74 - 99 mg/dL [facility] Interpretation and review of laboratory results Normal [facility] Glucose [Mass/Vol] 98 mg/dL Normal 74-99 [facility] Comment on above: Performed By: #### 2 341-6 ####SARAH Mcknight ([id number])[facility] ([facility])[address] [place] [address] Guidance for placement of tu nneled catheter in Chest Pleuraon 04-19-2023 Radiology Study observation (narrative) [facility] Work Phone: IR CVC TUNNELEDon 04-19-2023 IR CVC TUNNELED Normal [facility] PT and aPTT panel Coag (PPP) on 04-19-2023 aPTT Coag (PPP) [Time] 33 s Un [facility] INR Coag (PPP) [Relative time] 1.5 {INR} High 0.9 - 1.1 [facility] Interpretation and review of laboratory results Abnormal [facility] PT Coag (PPP) [Time] 16.5 s High [facility] aPTT Coag (PPP) [Time] 33 s Normal 27-38 Un [facility] Comment on above: Order Comment: The A PTT is no longer used for monitoring Unfractionated Heparin Therapy. For monitoring Heparin Therapy, use the Heparin Assay. Performed By: #### 3 4529-8 ####SARAH Mcknight ([id number])[facility] ([facility])[address] [place] [address] INR Coag (PPP) [Relative time] 1.5 High 0.9-1.1 [facility] Comment on above: Order Comment: The A PTT is no longer used for monitoring Unfractionated Heparin Therapy. For monitoring Heparin Therapy, use the Heparin Assay. Performed By: #### 3 4529-8 ####SARAH Mcknight ([id number])[facility] ([facility])[address] [place] [address] PT Coag (PPP) [Time] 16.5 s High 9.8-12.8 [facility] Comment on above: Order Comment: The A PTT is no longer used for monitoring Unfractionated Heparin Therapy. For monitoring Heparin Therapy, use the Heparin Assay. Performed By: #### 3 4529-8 ####SARAH Mcknight ([id number])[facility] ([facility])[address] [place] [address] Renal function 2000 panelon 04-19-2023 Albumin BCP dye [Mass/Vol] 2.3 g/dL Low 3.4 - 5.0 g/dL [facility] Anion gap [Moles/Vol] 9 mmol/L Low 10 - 2 0 mmol/L [facility] Calcium [Mass/Vol] 10.6 mg/dL 8.6 - 10. 6 mg/dL [facility] Chloride [Moles/Vol] 111 mmol/L High 98 - 10 7 mmol/L [facility] CO2 [Moles/Vol] 21 mmol/L 21 - 32 mmol/L [facility] Creatinine [Mass/Vol] 0.40 mg/dL Low 0.50 - 1.30 mg/dL [facility] eGFR - PINF [facility] Glucose [Mass/Vol] 90 mg/dL 74 - 99 mg/dL [facility] Interpretation and review of laboratory results Abnormal [facility] Phosphate [Mass/Vol] 2.3 mg/dL Low 2.5 - 4 .9 mg/dL [facility] Potassium [Moles/Vol] 4.3 mmol/L 3.5 - 5.3 mmol/L [facility] Sodium [Moles/Vol] 137 mmol/L 136 - 145 mmol/L [facility] Urea nitrogen [Mass/Vol] 12 mg/dL 6 - 23 mg/dL [facility] Albumin BCP dye [Mass/Vol] 2.3 g/dL Low 3.4-5.0 [facility] Comment on above: Performed By: #### 2 4362-6 ####SARAH Mcknight ([id number])[facility] ([facility])[address] [place] [address] Anion gap [Moles/Vol] 9 mmol/L Low 10-20 [facility] Comment on above: Performed By: #### 2 4362-6 ####SARAH Mcknight ([id number])[facility] ([facility])[address] [place] [address] Calcium [Mass/Vol] 10.6 mg/dL Normal 8.6-10.6 [facility] Comment on above: Performed By: #### 2 4362-6 ####SARAH Mcknight ([id number])[facility] ([facility])[address] [place] [address] Chloride [Moles/Vol] 111 mmol/L High 98-107 [facility] Comment on above: Performed By: #### 2 4362-6 ####SARAH Mcknight ([id number])[facility] ([facility])[address] [place] [address] CO2 [Moles/Vol] 21 mmol/L Normal 21-32 [facility] Comment on above: Performed By: #### 2 4362-6 ####SARAH Mcknight ([id number])[facility] ([facility])[address] [place] [address] Creatinine [Mass/Vol] 0.40 mg/dL Low 0.50-1.30 [facility] Comment on above: Performed By: #### 2 4362-6 ####SARAH Mcknight ([id number])[facility] ([facility])[address] [place] [address] GFR/1.73 sq M.predicted MDRD (S/P/Bld) [Vol rate/Area] mL/min/{1.73_m2} Normal >60 [facility] Comment on above: Result Comment: Calc ulations of estimated GFR are performed using the 2020 CKD-EPI Study Refit equation without the race variable for the IDMS-Traceable creatinine methods.https://jasn.asnjournals.org/content//A SN.6913729165 Performed By: #### 2 4362-6 ####SARAH Mcknight ([id number])[facility] ([facility])[address] [place] [address] Glucose [Mass/Vol] 90 mg/dL Normal 74-99 [facility] Comment on above: Performed By: #### 2 4362-6 ####SARAH Mcknight ([id number])[facility] ([facility])[address] [place] [address] Phosphate [Mass/Vol] 2.3 mg/dL Low 2.5-4.9 [facility] Comment on above: Result Comment: The performance characteristics of phosphorus testing in heparinized plasma have been validated by the individual laboratory site where testing is performed. Testing on heparinized plasma is not approved by the FDA; however, such approval is not necessary. Performed By: #### 2 4362-6 ####SARAH Mcknight ([id number])[facility] ([facility])[address] [place] [address] Potassium [Moles/Vol] 4.3 mmol/L Normal 3.5-5.3 [facility] Comment on above: Performed By: #### 2 4362-6 ####SARAH Mcknight ([id number])[facility] ([facility])[address] [place] [address] Sodium [Moles/Vol] 137 mmol/L Normal 136-145 [facility] Comment on above: Performed By: #### 2 4362-6 ####SARAH Mcknight ([id number])[facility] ([facility])[address] [place] [address] Urea nitrogen [Mass/Vol] 12 mg/dL Normal 6-23 [facility] Comment on above: Performed By: #### 2 4362-6 ####SARAH Mcknight ([id number])[facility] ([facility])[address] [place] [address] Tacrolimuson 04-19-2023 Tacrolimus (Bld) [Mass/Vol] 4.4 ng/mL Normal <=15.0 [facility] Comment on above: Order Comment: Plesalas e draw prior giving the medicationNOTE: Result was obtained using achemiluminescent microparticle immunoassay(CMIA) on the Tunnel Mucker i system.Optimal therapeutic ranges for immunosuppressantdrugs depend upon an individualpatient's current clinical state, type oforgan transplant, time post-transplant,co-administration of other immunosuppressants,and other clinical factors. The results ofthis test should be correlated with additionalclinical and laboratory data before changesin treatment regimens are made. Performed By: #### 1 1253-2 ####SARAH Mcknight ([id number])[facility] ([facility])[address] [place] [address] Tacrolimus (Bld) [Mass/Vol]O rdered By: Zachary Cruz on 04-19-2023 Interpretation and review of laboratory results [facility] Tacrolimus levelOrdered By: Zachary Cruz on 04-19-2023 Tacrolimus (Bld) [Mass/Vol] 4.4 ng/mL NINF - 15.0 ng/mL [facility] Blood type and Indirect anti body screen panel (Bld)on 04-18-2023 ABO group Nom (Bld) A [facility] Blood group antibody screen Ql Negative [facility] D Ag Ql (Bld) Positive [facility] ABO group Nom (Bld) A Normal [facility] Comment on above: Performed By: #### 3 4532-2 ####SARAH Mcknight ([id number])[facility] ([facility])[address] [place], [place] [id number] Blood group antibody screen Ql Negative [facility] Comment on above: Performed By: #### 3 4532-2 ####SARAH Mcknight ([id number])[facility] ([facility])[address] [place] [address] D Ag Ql (Bld) Positive [facility] Comment on above: Performed By: #### 3 4532-2 ####SARAH Mcknight ([id number])[facility] ([facility])[address] [place] [address] CBC panel Auto (Bld)on 04-18 Erythrocyte distribution width (RBC) [Ratio] 23.8 % High 11.5 - 14.5 % [facility] Hematocrit (Bld) [Volume fraction] 27.2 % Low 41.0 - 52.0 % [facility] Hemoglobin (Bld) [Mass/Vol] 8.8 g/dL Low 13.5 - 17.5 g/dL [facility] Interpretation and review of laboratory results Abnormal [facility] MCH (RBC) [Entitic mass] 25.3 pg Low 26.0 - 34.0 pg [facility] MCHC (RBC) [Mass/Vol] 32.4 g/dL 32.0 - 36.0 g/dL [facility] MCV (RBC) [Entitic vol] 78 fL Low 80 - 100 fL [facility] Nucleated RBC/100 WBC (Bld) [Ratio] 0.0 % [facility] Platelets (Bld) [#/Vol] 288 10*3/uL [facility] RBC (Bld) [#/Vol] 3.48 10*6/uL Low [facility] WBC (Bld) [#/Vol] 8.0 10*3/uL [facility] Erythrocyte distribution width (RBC) [Ratio] 23.8 % High 11.5-14.5 [facility] Comment on above: Performed By: #### 5 8410-2 ####SARAH Mcknight ([id number])[facility] ([facility])[address] [place] [address] Hematocrit (Bld) [Volume fraction] 27.2 % Low 41.0-52.0 [facility] Comment on above: Performed By: #### 5 8410-2 ####SARAH Mcknight ([id number])[facility] ([facility])[address] [place] [address] Hemoglobin (Bld) [Mass/Vol] 8.8 g/dL Low 13.5-17.5 [facility] Comment on above: Performed By: #### 5 8410-2 ####SARAH Mcknight (26025)[facility] ([facility])[address] [place] [address] MCH (RBC) [Entitic mass] 25.3 pg Low 26.0-34.0 [facility] Comment on above: Performed By: #### 5 8410-2 ####SARAH Mcknight ([id number])[facility] ([facility])[address] [place] [address] MCHC (RBC) [Mass/Vol] 32.4 g/dL Normal 32.0-36.0 [facility] Comment on above: Performed By: #### 5 8410-2 ####SARAH Mcknight ([id number])[facility] ([facility])[address] [place] [address] MCV (RBC) [Entitic vol] 78 fL Low 80-100 [facility] Comment on above: Performed By: #### 5 8410-2 ####SARAH Mcknight ([id number])[facility] ([facility])[address] [place] [address] Nucleated RBC/100 WBC (Bld) [Ratio] 0.0 /100 WBCs Normal 0.0-0.0 [facility] Comment on above: Performed By: #### 5 8410-2 ####SARAH Mcknight ([id number])[facility] ([facility])[address] [place] [address] Platelets (Bld) [#/Vol] 288 x10*3/uL Normal 150-450 [facility] Comment on above: Performed By: #### 5 8410-2 ####SARAH Mcknight ([id number])[facility] ([facility])[address] [place] [address] RBC (Bld) [#/Vol] 3.48 x10*6/uL Low 4.50-5.90 [facility] Comment on above: Performed By: #### 5 8410-2 ####SARAH OMER L ([id number])[facility] ([facility])[address] [place] [address] WBC (Bld) [#/Vol] 8.0 x10*3/uL Normal 4.4-11.3 [facility] Comment on above: Performed By: #### 5 8410-2 ####SARAH Mcknight ([id number])[facility] ([facility])[address] [place] [address] Coagulation tissue factor in ducedon 04-18-2023 PT Coag (PPP) [Time] 17.7 s High 9.8-12.8 [facility] Comment on above: Performed By: #### 5 902-2 ####SARAH Mcknight ([id number])[facility] ([facility])[address] [place] [address] Glucose Test strip manual (B ld) [Mass/Vol]on 04-18-2023 Glucose [Mass/Vol] 119 mg/dL High 74 - 99 mg/dL [facility] Interpretation and review of laboratory results Abnormal [facility] Glucose [Mass/Vol] 119 mg/dL High 74-99 [facility] Comment on above: Performed By: #### 2 341-6 ####SARAH Mcknight ([id number])[facility] ([facility])[address] [place] [address] Glucose [Mass/Vol] 117 mg/dL High 74 - 99 mg/dL [facility] Interpretation and review of laboratory results Abnormal [facility] Glucose [Mass/Vol] 117 mg/dL High 74-99 [facility] Comment on above: Performed By: #### 2 341-6 ####SARAH Mcknight ([id number])[facility] ([facility])[address] [place] [address] 845[address] Glucose [Mass/Vol] 121 mg/dL High 74 - 99 mg/dL [facility] Interpretation and review of laboratory results Abnormal [facility] Glucose [Mass/Vol] 121 mg/dL High 74-99 [facility] Comment on above: Performed By: #### 2 341-6 ####SARAH Mcknight ([id number])[facility] ([facility])[address] [place] [address] 91592 Glucose [Mass/Vol] 120 mg/dL High 74 - 99 mg/dL [facility] Interpretation and review of laboratory results Abnormal [facility] Glucose [Mass/Vol] 120 mg/dL High 74-99 [facility] Comment on above: Performed By: #### 2 341-6 ####SARAH Mcknight ([id number])[facility] ([facility])[address] [place] [address] PT Coag (PPP) [Time]on 04-18 INR Coag (PPP) [Relative time] 1.6 {INR} High 0.9 - 1.1 [facility] Interpretation and review of laboratory results Abnormal [facility] INR Coag (PPP) [Relative time] 1.6 High 0.9-1.1 [facility] Comment on above: Performed By: #### 5 902-2 ####SARAH Mcknight ([id number])[facility] ([facility])[id number] [place] [address] 19979 Protime-INRon 04-18-2023 PT Coag (PPP) [Time] 17.7 s High [facility] Renal function 2000 panelon 04-18-2023 Albumin BCP dye [Mass/Vol] 2.4 g/dL Low 3.4 - 5.0 g/dL [facility] Anion gap [Moles/Vol] 7 mmol/L Low 10 - 2 0 mmol/L [facility] Calcium [Mass/Vol] 10.2 mg/dL 8.6 - 10. 6 mg/dL [facility] Chloride [Moles/Vol] 109 mmol/L High 98 - 10 7 mmol/L [facility] CO2 [Moles/Vol] 24 mmol/L 21 - 32 mmol/L [facility] Creatinine [Mass/Vol] 0.37 mg/dL Low 0.50 - 1.30 mg/dL [facility] eGFR - PINF [facility] Glucose [Mass/Vol] 105 mg/dL High 74 - 99 mg/dL [facility] Interpretation and review of laboratory results Abnormal [facility] Phosphate [Mass/Vol] 2.5 mg/dL 2.5 - 4 .9 mg/dL [facility] Potassium [Moles/Vol] 4.4 mmol/L 3.5 - 5.3 mmol/L [facility] Sodium [Moles/Vol] 136 mmol/L 136 - 145 mmol/L [facility] Urea nitrogen [Mass/Vol] 12 mg/dL 6 - 23 mg/dL [facility] Albumin BCP dye [Mass/Vol] 2.4 g/dL Low 3.4-5.0 [facility] Comment on above: Performed By: #### 2 4362-6 ####SARAH Mcknight ([id number])[facility] ([facility])[address] [place] [address] Anion gap [Moles/Vol] 7 mmol/L Low 10-20 [facility] Comment on above: Performed By: #### 2 4362-6 ####SARAH Mcknight ([id number])[facility] ([facility])[address] [place] [address] Calcium [Mass/Vol] 10.2 mg/dL Normal 8.6-10.6 [facility] Comment on above: Performed By: #### 2 4362-6 ####SARAH Mcknight ([id number])[facility] ([facility])[address] [place] [address] Chloride [Moles/Vol] 109 mmol/L High 98-107 [facility] Comment on above: Performed By: #### 2 4362-6 ####SARAH Mcknight ([id number])[facility] ([facility])[address] [place] [address] CO2 [Moles/Vol] 24 mmol/L Normal 21-32 [facility] Comment on above: Performed By: #### 2 4362-6 ####SARAH Mcknight ([id number])[facility] ([facility])[address] [place] [address] Creatinine [Mass/Vol] 0.37 mg/dL Low 0.50-1.30 [facility] Comment on above: Performed By: #### 2 4362-6 ####SARAH Mcknight ([id number])[facility] ([facility])[address] [place] [address] GFR/1.73 sq M.predicted MDRD (S/P/Bld) [Vol rate/Area] mL/min/{1.73_m2} Normal >60 [facility] Comment on above: Result Comment: Calc ulations of estimated GFR are performed using the 2020 CKD-EPI Study Refit equation without the race variable for the IDMS-Traceable creatinine methods.https://jasn.asnjournals.org/content/early/A .1354445513 Performed By: #### 2 4362-6 ####SARAH Mcknight ([id number])[facility] ([facility])[address] [place] [address] Glucose [Mass/Vol] 105 mg/dL High 74-99 [facility] Comment on above: Performed By: #### 2 4362-6 ####SARAH Mcknight ([id number])[facility] ([facility])[address] [place] [address] Phosphate [Mass/Vol] 2.5 mg/dL Normal 2.5-4.9 [facility] Comment on above: Result Comment: The performance characteristics of phosphorus testing in heparinized plasma have been validated by the individual laboratory site where testing is performed. Testing on heparinized plasma is not approved by the FDA; however, such approval is not necessary. Performed By: #### 2 4362-6 ####SARAH Mcknight ([id number])[facility] ([facility])[address] [place] [address] Potassium [Moles/Vol] 4.4 mmol/L Normal 3.5-5.3 [facility] Comment on above: Performed By: #### 2 4362-6 ####SARAH Mcknight ([id number])[facility] ([facility])[address] [place] [address] Sodium [Moles/Vol] 136 mmol/L Normal 136-145 [facility] Comment on above: Performed By: #### 2 4362-6 ####SARAH Mcknight ([id number])[facility] ([facility])[address] [place] [address] Urea nitrogen [Mass/Vol] 12 mg/dL Normal 6-23 [facility] Comment on above: Performed By: #### 2 4362-6 ####SARAH Mcknight ([id number])[facility] ([facility])[address] [place] [address] Tacrolimuson 04-18-2023 Tacrolimus (Bld) [Mass/Vol] 3.3 ng/mL Normal <=15.0 [facility] Comment on above: Order Comment: Pleas e draw prior giving the medicationNOTE: Result was obtained using achemiluminescent microparticle immunoassay(CMIA) on the Tunnel Mucker i system.Optimal therapeutic ranges for immunosuppressantdrugs depend upon an individualpatient's current clinical state, type oforgan transplant, time post-transplant,co-administration of other immunosuppressants,and other clinical factors. The results ofthis test should be correlated with additionalclinical and laboratory data before changesin treatment regimens are made. Performed By: #### 1 1253-2 ####SARAH Mcknight ([id number])[facility] ([facility])[address] [place] [address] 48783 Tacrolimus (Bld) [Mass/Vol]o n 04-18-2023 Interpretation and review of laboratory results Normal [facility] Work Phone: [facility] Work Phone: [facility] Work Phone: Tacrolimus levelon 4 Tacrolimus (Bld) [Mass/Vol] 3.3 ng/mL NINF - 15.0 ng/mL [facility] Work Phone: Bacteria identified Cx Nom ( Unsp spec)Ordered By: Lizet Moura on 04-17-2023 Interpretation and review of laboratory results Abnormal [facility] Microscopic observation Gram stain Nom (Unsp spec) (3+) Moderate Polymorphonuclear leukocytes Abnormal [facility] Microscopic observation Gram stain Nom (Unsp spec) Negative Abnormal [facility] CBC panel Auto (Bld)on 04-17 Erythrocyte distribution width (RBC) [Ratio] 23.0 % High 11.5 - 14.5 % [facility] Hematocrit (Bld) [Volume fraction] 26.9 % Low 41.0 - 52.0 % [facility] Hemoglobin (Bld) [Mass/Vol] 8.3 g/dL Low 13.5 - 17.5 g/dL [facility] Interpretation and review of laboratory results Abnormal [facility] MCH (RBC) [Entitic mass] 25.2 pg Low 26.0 - 34.0 pg [facility] MCHC (RBC) [Mass/Vol] 30.9 g/dL Low 32.0 - 36.0 g/dL [facility] MCV (RBC) [Entitic vol] 82 fL 80 - 100 fL [facility] Nucleated RBC/100 WBC (Bld) [Ratio] 0.0 % [facility] Platelets (Bld) [#/Vol] 259 10*3/uL [facility] RBC (Bld) [#/Vol] 3.29 10*6/uL [facility] WBC (Bld) [#/Vol] 7.5 10*3/uL [facility] Erythrocyte distribution width (RBC) [Ratio] 23.0 % High 11.5-14.5 [facility] Comment on above: Performed By: #### 5 8410-2 ####SARAH Mcknight ([id number])[facility] ([facility])[address] [place] [address] Hematocrit (Bld) [Volume fraction] 26.9 % Low 41.0-52.0 [facility] Comment on above: Performed By: #### 5 8410-2 ####SARAH Mcknight ([id number])[facility] ([facility])[address] [place] [address] Hemoglobin (Bld) [Mass/Vol] 8.3 g/dL Low 13.5-17.5 [facility] Comment on above: Performed By: #### 5 8410-2 ####SARAH Mcknight ([id number])[facility] ([facility])[address] [place] [address] 76969 MCH (RBC) [Entitic mass] 25.2 pg Low 26.0-34.0 [facility] Comment on above: Performed By: #### 5 8410-2 ####SARAH Mcknight ([id number])[facility] ([facility])[address] [place] [address] 52599 MCHC (RBC) [Mass/Vol] 30.9 g/dL Low 32.0-36.0 [facility] Comment on above: Performed By: #### 5 8410-2 ####SARAH Mcknight ([id number])[facility] ([facility])[address] [place] [address] 19422 MCV (RBC) [Entitic vol] 82 fL Normal 80-100 [facility] Comment on above: Performed By: #### 5 8410-2 ####SARAH Mcknight ([id number])[facility] ([facility])[address] [place] [address] 95839 Nucleated RBC/100 WBC (Bld) [Ratio] 0.0 /100 WBCs Normal 0.0-0.0 [facility] Comment on above: Performed By: #### 5 8410-2 ####SARAH Mcknight ([id number])[facility] ([facility])[address] [place] [address] 50554 Platelets (Bld) [#/Vol] 259 x10*3/uL Normal 150-450 [facility] Comment on above: Performed By: #### 5 8410-2 ####SARAH Mcknight ([id number])[facility] ([facility])[address] [place] [address] 78913 RBC (Bld) [#/Vol] 3.29 x10*6/uL Low 4.50-5.90 [facility] Comment on above: Performed By: #### 5 8410-2 ####SARAH Mcknight ([id number])[facility] ([facility])[address] [place] [address] WBC (Bld) [#/Vol] 7.5 x10*3/uL Normal 4.4-11.3 [facility] Comment on above: Performed By: #### 5 8410-2 ####SARAH Mcknight (55233)[facility] ([facility])[address] [place] [address] Calcium, Ionizedon Calcium.ionized (Bld) [Moles/Vol] 1.64 mmol/L High 1.1 - 1.33 mmol/L [facility] Calcium.ionizedon 04-17-2023 Calcium.ionized (Bld) [Moles/Vol] 1.64 mmol/L High 1.1-1.33 [facility] Comment on above: Result Comment: The performance characteristics of ionized calcium testedin heparinized plasma or serum have been [facility] where [facility].Testing on heparinized plasma or serum is not approved bythe FDA; however, such approval is not necessary. Performed By: #### 1 994-3 ####SARAH Mcknight ([id number])[facility] ([facility])[address] [place] [address] 23898 Calcium.ionized (Bld) [Moles /Vol]on 04-17-2023 Interpretation and review of laboratory results Abnormal [facility] Glucose Test strip manual (B ld) [Mass/Vol]on 04-17-2023 Glucose [Mass/Vol] 96 mg/dL 74 - 99 mg/dL [facility] Interpretation and review of laboratory results Normal [facility] Glucose [Mass/Vol] 96 mg/dL Normal 74-99 [facility] Comment on above: Performed By: #### 2 341-6 ####SARAH Mcknight ([id number])[facility] ([facility])[address] [place] [address] Glucose [Mass/Vol] 115 mg/dL High 74 - 99 mg/dL [facility] Interpretation and review of laboratory results Abnormal [facility] Glucose [Mass/Vol] 115 mg/dL High 74-99 [facility] Comment on above: Performed By: #### 2 341-6 ####SARAH Mcknight ([id number])[facility] ([facility])[address] [place] [address] 948[address] Glucose [Mass/Vol] 114 mg/dL High 74 - 99 mg/dL [facility] Interpretation and review of laboratory results Abnormal [facility] Glucose [Mass/Vol] 114 mg/dL High 74-99 [facility] Comment on above: Performed By: #### 2 341-6 ####SARAH Mcknight ([id number])[facility] ([facility])[address] [place] [address]138 Magnesiumon 04-17-2023 Magnesium [Mass/Vol] 2.00 mg/dL 1.60 - 2.40 mg/dL [facility] Magnesium [Mass/Vol] 2.00 mg/dL Normal 1.60-2.40 [facility] Comment on above: Performed By: #### 1 9123-9 ####SARAH Mcknight ([id number])[facility] ([facility])[address] [place] [address] 28467 Magnesium [Mass/Vol]on 04-17 Interpretation and review of laboratory results Normal [facility] No Panel Informationon 04-17 [facility] Blood Expiration Date April 23, 2023 23:59 EST [facility] Dispense Status RE [facility] PRODUCT BLOOD TYPE 6200 [facility] PRODUCT CODE [id number] [facility] Unit ABO A [facility] Unit RH Positive [facility] UNIT VOLUME 350 [facility] XM INTEP COMP [facility] PT and aPTT panel Coag (PPP) on 04-17-2023 aPTT Coag (PPP) [Time] 29 s Un [facility] INR Coag (PPP) [Relative time] 1.2 {INR} High 0.9 - 1.1 [facility] Interpretation and review of laboratory results Abnormal [facility] PT Coag (PPP) [Time] 13.2 s High [facility] aPTT Coag (PPP) [Time] 29 s Normal 27-38 [facility] Comment on above: Order Comment: The A PTT is no longer used for monitoring Unfractionated Heparin Therapy. For monitoring Heparin Therapy, use the Heparin Assay. Performed By: #### 3 4529-8 ####SARAH Mcknight ([id number])[facility] ([facility])[address] [place] [address] 92242 INR Coag (PPP) [Relative time] 1.2 High 0.9-1.1 [facility] Comment on above: Order Comment: The A PTT is no longer used for monitoring Unfractionated Heparin Therapy. For monitoring Heparin Therapy, use the Heparin Assay. Performed By: #### 3 4529-8 ####SARAH Mcknight ([id number])[facility] ([facility])[address] [place] [address] 76491 PT Coag (PPP) [Time] 13.2 s High 9.8-12.8 [facility] Comment on above: Order Comment: The A PTT is no longer used for monitoring Unfractionated Heparin Therapy. For monitoring Heparin Therapy, use the Heparin Assay. Performed By: #### 3 4529-8 ####SARAH Mcknight ([id number])[facility] ([facility])[address] [place] [address] 20705 Prepare RBC: 2 Unitson 04-17 Blood Expiration Date April 29, 2023 23:59 EST [facility] Dispense Status TR [facility] PRODUCT CODE [id number] [facility] Unit Number [id number] [facility] Unit Number [id number] [facility] Unit Number [id number] [facility] Unit Number [id number] [facility] UNIT VOLUME 278 [facility] Renal function 2000 panelon 04-17-2023 Albumin BCP dye [Mass/Vol] 2.3 g/dL Low 3.4 - 5.0 g/dL [facility] Anion gap [Moles/Vol] mmol/L Low 10 - 2 0 mmol/L [facility] Calcium [Mass/Vol] 10.2 mg/dL 8.6 - 10. 6 mg/dL [facility] Chloride [Moles/Vol] 112 mmol/L High 98 - 10 7 mmol/L [facility] CO2 [Moles/Vol] 22 mmol/L 21 - 32 mmol/L [facility] Creatinine [Mass/Vol] 0.41 mg/dL Low 0.50 - 1.30 mg/dL [facility] eGFR - PINF [facility] Glucose [Mass/Vol] 108 mg/dL High 74 - 99 mg/dL [facility] Interpretation and review of laboratory results Abnormal [facility] Phosphate [Mass/Vol] 2.0 mg/dL Low 2.5 - 4 .9 mg/dL [facility] Potassium [Moles/Vol] 4.4 mmol/L 3.5 - 5.3 mmol/L [facility] Sodium [Moles/Vol] 136 mmol/L 136 - 145 mmol/L [facility] Urea nitrogen [Mass/Vol] 12 mg/dL 6 - 23 mg/dL [facility] Albumin BCP dye [Mass/Vol] 2.3 g/dL Low 3.4-5.0 [facility] Comment on above: Performed By: #### 2 4362-6 ####SARAH Mcknight ([id number])[facility] ([facility])[address] [place] [address] Anion gap [Moles/Vol] mmol/L Low 10-20 [facility] Comment on above: Performed By: #### 2 4362-6 ####SARAH Mcknight ([id number])[facility] ([facility])[address] [place] [address] Calcium [Mass/Vol] 10.2 mg/dL Normal 8.6-10.6 [facility] Comment on above: Performed By: #### 2 4362-6 ####SARAH Mcknight ([id number])[facility] ([facility])[address] [place] [address] Chloride [Moles/Vol] 112 mmol/L High 98-107 [facility] Comment on above: Performed By: #### 2 4362-6 ####SARAH Mcknight ([id number])[facility] ([facility])[address] [place] [address] CO2 [Moles/Vol] 22 mmol/L Normal 21-32 [facility] Comment on above: Performed By: #### 2 4362-6 ####SARAH Mcknight ([id number])[facility] ([facility])[address] [place] [address] Creatinine [Mass/Vol] 0.41 mg/dL Low 0.50-1.30 [facility] Comment on above: Performed By: #### 2 4362-6 ####SARAH Mcknight ([id number])[facility] ([facility])[address] [place] [address] GFR/1.73 sq M.predicted MDRD (S/P/Bld) [Vol rate/Area] mL/min/{1.73_m2} Normal >60 [facility] Comment on above: Result Comment: Calc ulations of estimated GFR are performed using the 2020 CKD-EPI Study Refit equation without the race variable for the IDMS-Traceable creatinine methods.https://jasn.asnjournals.org/content/early/A SN.4044535626 Performed By: #### 2 4362-6 ####SARAH Mcknight ([id number])[facility] ([facility])[address] [place] [address] Glucose [Mass/Vol] 108 mg/dL High 74-99 [facility] Comment on above: Performed By: #### 2 4362-6 ####SARAH Mcknight ([id number])[facility] ([facility])[address] [place] [address] Phosphate [Mass/Vol] 2.0 mg/dL Low 2.5-4.9 [facility] Comment on above: Result Comment: The performance characteristics of phosphorus testing in heparinized plasma have been validated by the individual laboratory site where testing is performed. Testing on heparinized plasma is not approved by the FDA; however, such approval is not necessary. Performed By: #### 2 4362-6 ####SARAH Mcknight ([id number])[facility] ([facility])[address] [place] [address] Potassium [Moles/Vol] 4.4 mmol/L Normal 3.5-5.3 [facility] Comment on above: Performed By: #### 2 4362-6 ####SARAH Mcknight (58655)[facility] ([facility])[address] [place] [address] Sodium [Moles/Vol] 136 mmol/L Normal 136-145 [facility] Comment on above: Performed By: #### 2 4362-6 ####SARAH Mcknight ([id number])[facility] ([facility])[address] [place] [address] Urea nitrogen [Mass/Vol] 12 mg/dL Normal 6-23 [facility] Comment on above: Performed By: #### 2 4362-6 ####SARAH OMER L ([id number])[facility] ([facility])[address] [place] [address] Tacrolimuson 04-17-2023 Tacrolimus (Bld) [Mass/Vol] 4.6 ng/mL Normal <=15.0 [facility] Comment on above: Order Comment: Rickey e draw prior giving the medicationNOTE: Result was obtained using achemiluminescent microparticle immunoassay(CMIA) on the Tunnel Mucker i system.Optimal therapeutic ranges for immunosuppressantdrugs depend upon an individualpatient's current clinical state, type oforgan transplant, time post-transplant,co-administration of other immunosuppressants,and other clinical factors. The results ofthis test should be correlated with additionalclinical and laboratory data before changesin treatment regimens are made. Performed By: #### 1 1253-2 ####SARAH Mcknight ([id number])[facility] ([facility])[address] [place] [address] Tacrolimus (Bld) [Mass/Vol]O rdered By: Ila Hutchinson on 04-17-2023 Interpretation and review of laboratory results Normal [facility] Tacrolimus levelOrdered By: Ila Hutchinson on 04-17-2023 Tacrolimus (Bld) [Mass/Vol] 4.6 ng/mL NINF - 15.0 ng/mL [facility] Tissue/Wound Culture/SmearOr dered By: Lizet Moura on 04-17-2023 Bacteria identified Cx Nom (Unsp spec) (4+) Abundant Escherichia coli Abnormal [facility] Bacteria identified Cx Nom ( Unsp spec)Ordered By: Gio Bliss on 04-16-2023 Interpretation and review of laboratory results Abnormal [facility] Microscopic observation Gram stain Nom (Unsp spec) (3+) Moderate Polymorphonuclear leukocytes Abnormal [facility] Microscopic observation Gram stain Nom (Unsp spec) Negative Abnormal [facility] C Blood Charcoalon Blood Culture Charcoal Normal [facility] Comment on above: Performed By: #### 1 [id number] ####Abhi [facility] [id number] [place] [address] CBC panel Auto (Bld)on 04-16 Erythrocyte distribution width (RBC) [Ratio] 22.2 % High 11.5 - 14.5 % [facility] Hematocrit (Bld) [Volume fraction] 25.7 % Low 41.0 - 52.0 % [facility] Hemoglobin (Bld) [Mass/Vol] 7.9 g/dL Low 13.5 - 17.5 g/dL [facility] Interpretation and review of laboratory results Abnormal [facility] MCH (RBC) [Entitic mass] 25.1 pg Low 26.0 - 34.0 pg [facility] MCHC (RBC) [Mass/Vol] 30.7 g/dL Low 32.0 - 36.0 g/dL [facility] MCV (RBC) [Entitic vol] 82 fL 80 - 100 fL [facility] Nucleated RBC/100 WBC (Bld) [Ratio] 0.0 % [facility] Platelets (Bld) [#/Vol] 282 10*3/uL [facility] RBC (Bld) [#/Vol] 3.15 10*6/uL Low [facility] WBC (Bld) [#/Vol] 7.6 10*3/uL [facility] Erythrocyte distribution width (RBC) [Ratio] 22.2 % High 11.5-14.5 [facility] Comment on above: Performed By: #### 5 8410-2 ####SARAH Mcknight ([id number])[facility] ([facility])[address] [place] [address] 11052 Hematocrit (Bld) [Volume fraction] 25.7 % Low 41.0-52.0 [facility] Comment on above: Performed By: #### 5 8410-2 ####SARAH Mcknight ([id number])[facility] ([facility])[address] [place] [address] 92582 Hemoglobin (Bld) [Mass/Vol] 7.9 g/dL Low 13.5-17.5 [facility] Comment on above: Performed By: #### 5 8410-2 ####SARAH Mcknight ([id number])[facility] ([facility])[address] [place] [address] 14309 MCH (RBC) [Entitic mass] 25.1 pg Low 26.0-34.0 [facility] Comment on above: Performed By: #### 5 8410-2 ####SARAH Mcknight ([id number])[facility] ([facility])[address] [place] [address] 74630 MCHC (RBC) [Mass/Vol] 30.7 g/dL Low 32.0-36.0 [facility] Comment on above: Performed By: #### 5 8410-2 ####SARAH Mcknight ([id number])[facility] ([facility])[address] [place] [address] MCV (RBC) [Entitic vol] 82 fL Normal 80-100 [facility] Comment on above: Performed By: #### 5 8410-2 ####SARAH Mcknight ([id number])[facility] ([facility])[address] [place] [address] Nucleated RBC/100 WBC (Bld) [Ratio] 0.0 /100 WBCs Normal 0.0-0.0 [facility] Comment on above: Performed By: #### 5 8410-2 ####SARAH Mcknight ([id number])[facility] ([facility])[address] [place] [address] Platelets (Bld) [#/Vol] 282 x10*3/uL Normal 150-450 [facility] Comment on above: Performed By: #### 5 8410-2 ####SARAH Mcknight ([id number])[facility] ([facility])[address] [place] [address] RBC (Bld) [#/Vol] 3.15 x10*6/uL Low 4.50-5.90 [facility] Comment on above: Performed By: #### 5 8410-2 ####SARAH Mcknight ([id number])[facility] ([facility])[address] [place] [address] WBC (Bld) [#/Vol] 7.6 x10*3/uL Normal 4.4-11.3 [facility] Comment on above: Performed By: #### 5 8410-2 ####SARAH Mcknight ([id number])[facility] ([facility])[address] [place] [address] Calcium, Ionizedon Calcium.ionized (Bld) [Moles/Vol] 1.66 mmol/L High 1.1 - 1.33 mmol/L [facility] Calcium.ionizedon 04-16-2023 Calcium.ionized (Bld) [Moles/Vol] 1.66 mmol/L High 1.1-1.33 [facility] Comment on above: Result Comment: The performance characteristics of ionized calcium testedin heparinized plasma or serum have been validated by theindividual laboratory site where testing is performed.Testing on heparinized plasma or serum is not approved bythe FDA; however, such approval is not necessary. Performed By: #### 1 994-3 ####SARAH Mcknight ([id number])[facility] ([facility])[address] [place] [address]79 Calcium.ionized (Bld) [Moles /Vol]on 04-16-2023 Interpretation and review of laboratory results Abnormal [facility] ED Noteon 04-16-2023 ED Note [id number] F Culture results sent to [facility] per Jack (Pharmacy) Normal [facility] Fungal Culture/SmearOrdered By: Clary Peña on 04-16-2023 Fungus identified Cx Nom (Unsp spec) (1+) Rare Slime parapsilosis Abnormal [facility] Fungus identified Cx Nom (Un sp spec)Ordered By: Clary Peña on 04-16-2023 Fungus identified Fungus stain Nom (Unsp spec) No fungal elements seen [facility] Interpretation and review of laboratory results Abnormal [facility] Glucose Test strip manual (B ld) [Mass/Vol]on 04-16-2023 Glucose [Mass/Vol] 145 mg/dL High 74 - 99 mg/dL [facility] Interpretation and review of laboratory results Abnormal [facility] Glucose [Mass/Vol] 145 mg/dL High 74-99 [facility] Comment on above: Performed By: #### 2 341-6 ####SARAH Mcknight ([id number])[facility] ([facility])[address] [place] [address] Glucose [Mass/Vol] 117 mg/dL High 74 - 99 mg/dL [facility] Interpretation and review of laboratory results Abnormal [facility] Glucose [Mass/Vol] 117 mg/dL High 74-99 [facility] Comment on above: Performed By: #### 2 341-6 ####SARAH Mcknight ([id number])[facility] ([facility])[address] [place] [address] Glucose [Mass/Vol] 119 mg/dL High 74 - 99 mg/dL [facility] Interpretation and review of laboratory results Abnormal [facility] Glucose [Mass/Vol] 119 mg/dL High 74-99 [facility] Comment on above: Performed By: #### 2 341-6 ####SARAH Mcknight ([id number])[facility] ([facility])[address] [place] [address] 38475 Glucose [Mass/Vol] 108 mg/dL High 74 - 99 mg/dL [facility] Interpretation and review of laboratory results Abnormal [facility] Glucose [Mass/Vol] 108 mg/dL High 74-99 [facility] Comment on above: Performed By: #### 2 341-6 ####SARAH Mcknight ([id number])[facility] ([facility])[address] [place] [address] 39044 Guidance for biopsy of Bilia ry ductson 04-16-2023 MMODAL MMODAL [facility] Work Phone: Guidance for biopsy of Bilia ry ductsOrdered By: Laure Suarez on 04-16-2023 [facility] Work Phone: Magnesiumon 04-16-2023 Magnesium [Mass/Vol] 1.75 mg/dL 1.60 - 2.40 mg/dL [facility] Magnesium [Mass/Vol] 1.75 mg/dL Normal 1.60-2.40 [facility] Comment on above: Performed By: #### 1 9123-9 ####SARAH Mcknight ([id number])[facility] ([facility])[address] [place] [address] 44928 Magnesium [Mass/Vol]on 04-16 Interpretation and review of laboratory results Normal [facility] No Panel Informationon 04-16 [facility] PT and aPTT panel Coag (PPP) on 04-16-2023 aPTT Coag (PPP) [Time] 21 s Low Un [facility] INR Coag (PPP) [Relative time] 1.2 {INR} High 0.9 - 1.1 [facility] Interpretation and review of laboratory results Abnormal [facility] PT Coag (PPP) [Time] 13.2 s High [facility] aPTT Coag (PPP) [Time] 21 s Low 27-38 Un [facility] Comment on above: Order Comment: The A PTT is no longer used for monitoring Unfractionated Heparin Therapy. For monitoring Heparin Therapy, use the Heparin Assay. Performed By: #### 3 4529-8 ####SARAH Mcknight ([id number])[facility] ([facility])[address] [place], [place] [address] INR Coag (PPP) [Relative time] 1.2 High 0.9-1.1 [facility] Comment on above: Order Comment: The A PTT is no longer used for monitoring Unfractionated Heparin Therapy. For monitoring Heparin Therapy, use the Heparin Assay. Performed By: #### 3 4529-8 ####SARAH Mcknight ([id number])[facility] ([facility])[address] [place] [address] 10146 PT Coag (PPP) [Time] 13.2 s High 9.8-12.8 [facility] Comment on above: Order Comment: The A PTT is no longer used for monitoring Unfractionated Heparin Therapy. For monitoring Heparin Therapy, use the Heparin Assay. Performed By: #### 3 4529-8 ####SARAH Mcknight ([id number])[facility] ([facility])[address] [place] [address] 48778 Renal function 2000 panelon 04-16-2023 Albumin BCP dye [Mass/Vol] 2.3 g/dL Low 3.4 - 5.0 g/dL [facility] Anion gap [Moles/Vol] 11 mmol/L 10 - 2 0 mmol/L [facility] Calcium [Mass/Vol] 10.1 mg/dL 8.6 - 10. 6 mg/dL [facility] Chloride [Moles/Vol] 111 mmol/L High 98 - 10 7 mmol/L [facility] CO2 [Moles/Vol] 21 mmol/L 21 - 32 mmol/L [facility] Creatinine [Mass/Vol] 0.52 mg/dL 0.50 - 1.30 mg/dL [facility] eGFR - PINF [facility] Glucose [Mass/Vol] 148 mg/dL High 74 - 99 mg/dL [facility] Interpretation and review of laboratory results Abnormal [facility] Phosphate [Mass/Vol] 2.9 mg/dL 2.5 - 4 .9 mg/dL [facility] Potassium [Moles/Vol] 4.5 mmol/L 3.5 - 5.3 mmol/L [facility] Sodium [Moles/Vol] 138 mmol/L 136 - 145 mmol/L [facility] Urea nitrogen [Mass/Vol] 11 mg/dL 6 - 23 mg/dL [facility] Albumin BCP dye [Mass/Vol] 2.3 g/dL Low 3.4-5.0 [facility] Comment on above: Performed By: #### 2 4362-6 ####SARAH Mcknight ([id number])[facility] ([facility])[address] [place] [address] Anion gap [Moles/Vol] 11 mmol/L Normal 10-20 [facility] Comment on above: Performed By: #### 2 4362-6 ####SARAH Mcknight ([id number])[facility] ([facility])[address] [place] [address] Calcium [Mass/Vol] 10.1 mg/dL Normal 8.6-10.6 [facility] Comment on above: Performed By: #### 2 4362-6 ####SARAH Mcknight ([id number])[facility] ([facility])[address] [place] [address] 88848 Chloride [Moles/Vol] 111 mmol/L High 98-107 [facility] Comment on above: Performed By: #### 2 4362-6 ####SARAH Mcknight ([id number])[facility] ([facility])[address] [place] [address] CO2 [Moles/Vol] 21 mmol/L Normal 21-32 [facility] Comment on above: Performed By: #### 2 4362-6 ####SARAH Mcknight ([id number])[facility] ([facility])[address] [place] [address] Creatinine [Mass/Vol] 0.52 mg/dL Normal 0.50-1.30 [facility] Comment on above: Performed By: #### 2 4362-6 ####SARAH Mcknight ([id number])[facility] ([facility])[address] [place] [address] GFR/1.73 sq M.predicted MDRD (S/P/Bld) [Vol rate/Area] mL/min/{1.73_m2} Normal >60 [facility] Comment on above: Result Comment: Calc ulations of estimated GFR are performed using the 2020 CKD-EPI Study Refit equation without the race variable for the IDMS-Traceable creatinine methods.https://jasn.asnjournals.org/content//A SN.4391245886 Performed By: #### 2 4362-6 ####SARAH Mcknight ([id number])[facility] ([facility])[address] [place] [address] Glucose [Mass/Vol] 148 mg/dL High 74-99 [facility] Comment on above: Performed By: #### 2 4362-6 ####SARAH Mcknight ([id number])[facility] ([facility])[address] [place] [address] Phosphate [Mass/Vol] 2.9 mg/dL Normal 2.5-4.9 [facility] Comment on above: Result Comment: The performance characteristics of phosphorus testing in heparinized plasma have been validated by the individual laboratory site where testing is performed. Testing on heparinized plasma is not approved by the FDA; however, such approval is not necessary. Performed By: #### 2 4362-6 ####SARAH Mcknight ([id number])[facility] ([facility])[address] [place] [address] Potassium [Moles/Vol] 4.5 mmol/L Normal 3.5-5.3 [facility] Comment on above: Performed By: #### 2 4362-6 ####SARAH Mcknight ([id number])[facility] ([facility])[address] [place] [address] 40856 Sodium [Moles/Vol] 138 mmol/L Normal 136-145 [facility] Comment on above: Performed By: #### 2 4362-6 ####SARAH Mcknight ([id number])[facility] ([facility])[address] [place] [address] 50070 Urea nitrogen [Mass/Vol] 11 mg/dL Normal 6-23 [facility] Comment on above: Performed By: #### 2 4362-6 ####SARAH Mcknight ([id number])[facility] ([facility])[address] [place] [address] 32979 Albumin BCP dye [Mass/Vol] 2.4 g/dL Low 3.4 - 5.0 g/dL [facility] Anion gap [Moles/Vol] mmol/L Low 10 - 2 0 mmol/L [facility] Calcium [Mass/Vol] 10.2 mg/dL 8.6 - 10. 6 mg/dL [facility] Chloride [Moles/Vol] 110 mmol/L High 98 - 10 7 mmol/L [facility] CO2 [Moles/Vol] 23 mmol/L 21 - 32 mmol/L [facility] Creatinine [Mass/Vol] 0.59 mg/dL 0.50 - 1.30 mg/dL [facility] eGFR - PINF [facility] Glucose [Mass/Vol] 123 mg/dL High 74 - 99 mg/dL [facility] Interpretation and review of laboratory results Abnormal [facility] Phosphate [Mass/Vol] 1.5 mg/dL Low 2.5 - 4 .9 mg/dL [facility] Potassium [Moles/Vol] 4.3 mmol/L 3.5 - 5.3 mmol/L [facility] Sodium [Moles/Vol] 135 mmol/L Low 136 - 145 mmol/L [facility] Urea nitrogen [Mass/Vol] 13 mg/dL 6 - 23 mg/dL [facility] Albumin BCP dye [Mass/Vol] 2.4 g/dL Low 3.4-5.0 [facility] Comment on above: Performed By: #### 2 4362-6 ####SARAH Mcknight ([id number])[facility] ([facility])[address] [place] [address] Anion gap [Moles/Vol] mmol/L Low 10-20 [facility] Comment on above: Performed By: #### 2 4362-6 ####SARAH Mcknight ([id number])[facility] ([facility])[address] [place] [address] Calcium [Mass/Vol] 10.2 mg/dL Normal 8.6-10.6 [facility] Comment on above: Performed By: #### 2 4362-6 ####SARAH OMER L ([id number])[facility] ([facility])[address] [place] [address] Chloride [Moles/Vol] 110 mmol/L High 98-107 [facility] Comment on above: Performed By: #### 2 4362-6 ####SARAH OMER L ([id number])[facility] ([facility])[address] [place] [address] CO2 [Moles/Vol] 23 mmol/L Normal 21-32 [facility] Comment on above: Performed By: #### 2 4362-6 ####SARAH OMER L ([id number])[facility] ([facility])[address] [place] [address] Creatinine [Mass/Vol] 0.59 mg/dL Normal 0.50-1.30 [facility] Comment on above: Performed By: #### 2 4362-6 ####SARAH Mcknight ([id number])[facility] ([facility])[address] [place] [address] GFR/1.73 sq M.predicted MDRD (S/P/Bld) [Vol rate/Area] mL/min/{1.73_m2} Normal >60 [facility] Comment on above: Result Comment: Calc ulations of estimated GFR are performed using the 2020 CKD-EPI Study Refit equation without the race variable for the IDMS-Traceable creatinine methods.https://jasn.asnjournals.org/content/early/A SN.7115640839 Performed By: #### 2 4362-6 ####SARAH Mcknight ([id number])[facility] ([facility])[address] [place] [address] Glucose [Mass/Vol] 123 mg/dL High 74-99 [facility] Comment on above: Performed By: #### 2 4362-6 ####SARAH Mcknight ([id number])[facility] ([facility])[address] [place] [address] Phosphate [Mass/Vol] 1.5 mg/dL Low 2.5-4.9 [facility] Comment on above: Result Comment: The performance characteristics of phosphorus testing in heparinized plasma have been validated by the individual laboratory site where testing is performed. Testing on heparinized plasma is not approved by the FDA; however, such approval is not necessary. Performed By: #### 2 4362-6 ####SARAH Mcknight (78030)[facility] ([facility])[address] [place] [address] Potassium [Moles/Vol] 4.3 mmol/L Normal 3.5-5.3 [facility] Comment on above: Performed By: #### 2 4362-6 ####SARAH Mcknight ([id number])[facility] ([facility])[address] [place] [address] Sodium [Moles/Vol] 135 mmol/L Low 136-145 [facility] Comment on above: Performed By: #### 2 4362-6 ####SARAH Mcknight ([id number])[facility] ([facility])[address] [place] [address] Urea nitrogen [Mass/Vol] 13 mg/dL Normal 6-23 [facility] Comment on above: Performed By: #### 2 4362-6 ####SARAH Mcknight ([id number])[facility] ([facility])[address] [place] [address] Tacrolimuson 04-16-2023 Tacrolimus (Bld) [Mass/Vol] 4.2 ng/mL Normal <=15.0 [facility] Comment on above: Order Comment: Pleas e draw prior giving the medicationNOTE: Result was obtained using achemiluminescent microparticle immunoassay(CMIA) on the [employer] i system.Optimal therapeutic ranges for immunosuppressantdrugs depend upon an individualpatient's current clinical state, type oforgan transplant, time post-transplant,co-administration of other immunosuppressants,and other clinical factors. The results ofthis test should be correlated with additionalclinical and laboratory data before changesin treatment regimens are made. Performed By: #### 1 1253-2 ####SARAH Mcknight ([id number])[facility] ([facility])[address] [place] [address] Tacrolimus (Bld) [Mass/Vol]O rdered By: Ijeoma Tinajero on 04-16-2023 Interpretation and review of laboratory results Normal [facility] Tacrolimus levelOrdered By: Ijeoma Tinajero on 04-16-2023 Tacrolimus (Bld) [Mass/Vol] 4.2 ng/mL NINF - 15.0 ng/mL [facility] Tissue/Wound Culture/SmearOr dered By: Gio Bliss on 04-16-2023 Bacteria identified Cx Nom (Unsp spec) (4+) Abundant Escherichia coli Abnormal [facility] US.doppler Lower extremity v ein - bilateralon 04-16-2023 SYNGO [facility] Work Phone: US.doppler Lower extremity v ein - bilateralOrdered By: Yudith Dotson on 04-16-2023 [facility] Work Phone: C Urineon 04-15-2023 Bacteria identified Cx Nom (U) Normal [facility] Comment on above: Performed By: #### 2 [id number], [id number] ####[facility] [address] [place] [address] C Woundon 04-15-2023 Wound Culture Normal [facility] Comment on above: Performed By: #### 2 [id number] ####[facility] [address] [place] [address] CBC panel Auto (Bld)on 04-15 Erythrocyte distribution width (RBC) [Ratio] 21.2 % High 11.5 - 14.5 % [facility] Hematocrit (Bld) [Volume fraction] 25.5 % Low 41.0 - 52.0 % [facility] Hemoglobin (Bld) [Mass/Vol] 8.1 g/dL Low 13.5 - 17.5 g/dL [facility] Interpretation and review of laboratory results Abnormal [facility] MCH (RBC) [Entitic mass] 25.8 pg Low 26.0 - 34.0 pg [facility] MCHC (RBC) [Mass/Vol] 31.8 g/dL Low 32.0 - 36.0 g/dL [facility] MCV (RBC) [Entitic vol] 81 fL 80 - 100 fL [facility] Nucleated RBC/100 WBC (Bld) [Ratio] 0.0 % [facility] Platelets (Bld) [#/Vol] 282 10*3/uL [facility] RBC (Bld) [#/Vol] 3.14 10*6/uL Low [facility] WBC (Bld) [#/Vol] 7.9 10*3/uL [facility] Erythrocyte distribution width (RBC) [Ratio] 21.2 % High 11.5-14.5 [facility] Comment on above: Performed By: #### 5 8410-2 ####SARAH Mcknight ([id number])[facility] ([facility])[address] [place] [address] 33593 Hematocrit (Bld) [Volume fraction] 25.5 % Low 41.0-52.0 [facility] Comment on above: Performed By: #### 5 8410-2 ####SARAH Mcknight ([id number])[facility] ([facility])[address] [place] [address] 77890 Hemoglobin (Bld) [Mass/Vol] 8.1 g/dL Low 13.5-17.5 [facility] Comment on above: Performed By: #### 5 8410-2 ####SARAH Mcknight ([id number])[facility] ([facility])[address] [place] [address] 25069 MCH (RBC) [Entitic mass] 25.8 pg Low 26.0-34.0 [facility] Comment on above: Performed By: #### 5 8410-2 ####SARAH Mcknight ([id number])[facility] ([facility])[address] [place] [address] MCHC (RBC) [Mass/Vol] 31.8 g/dL Low 32.0-36.0 [facility] Comment on above: Performed By: #### 5 8410-2 ####SARAH Mcknight (28227)[facility] ([facility])[address] [place] [address] MCV (RBC) [Entitic vol] 81 fL Normal 80-100 [facility] Comment on above: Performed By: #### 5 8410-2 ####SARAH Mcknight ([id number])[facility] ([facility])[address] [place] [address] 63644 Nucleated RBC/100 WBC (Bld) [Ratio] 0.0 /100 WBCs Normal 0.0-0.0 [facility] Comment on above: Performed By: #### 5 8410-2 ####SARAH Mcknight ([id number])[facility] ([facility])[address] [place] [address] Platelets (Bld) [#/Vol] 282 x10*3/uL Normal 150-450 [facility] Comment on above: Performed By: #### 5 8410-2 ####SARAH Mcknight ([id number])[facility] ([facility])[address] [place] [address] RBC (Bld) [#/Vol] 3.14 x10*6/uL Low 4.50-5.90 [facility] Comment on above: Performed By: #### 5 8410-2 ####SARAH Mcknight ([id number])[facility] ([facility])[address] [place] [address] 60513 WBC (Bld) [#/Vol] 7.9 x10*3/uL Normal 4.4-11.3 [facility] Comment on above: Performed By: #### 5 8410-2 ####SARAH Mcknight ([id number])[facility] ([facility])[address] [place] [address]66 Calcium, Ionizedon Calcium.ionized (Bld) [Moles/Vol] 1.78 mmol/L High 1.1 - 1.33 mmol/L [facility] Calcium.ionizedon 04-15-2023 Calcium.ionized (Bld) [Moles/Vol] 1.78 mmol/L High 1.1-1.33 [facility] Comment on above: Result Comment: The performance characteristics of ionized calcium testedin heparinized plasma or serum [facility].Testing on [facility]ized plasma or [facility]; however, such approval is not necessary. Performed By: #### 1 994-3 ####SARAH Mcknight ([id number])[facility] ([facility])[address] [place] [address] Calcium.ionized (Bld) [Moles /Vol]on 04-15-2023 Interpretation and review of laboratory results Abnormal [facility] ED Noteon 04-15-2023 ED Note [id number]#[id number] F Normal [facility] Glucose Test strip manual (B ld) [Mass/Vol]on 04-15-2023 Glucose [Mass/Vol] 126 mg/dL High 74 - 99 mg/dL [facility] Interpretation and review of laboratory results Abnormal [facility] Glucose [Mass/Vol] 126 mg/dL High 74-99 [facility] Comment on above: Performed By: #### 2 341-6 ####SARAH Mcknight ([id number])[facility] ([facility])[address] [place] [address] 13262 Glucose [Mass/Vol] 121 mg/dL High 74 - 99 mg/dL [facility] Interpretation and review of laboratory results Abnormal [facility] Glucose [Mass/Vol] 121 mg/dL High 74-99 [facility] Comment on above: Performed By: #### 2 341-6 ####SARAH Mcknight ([id number])[facility] ([facility])[address] [place] [address] 41043 Glucose [Mass/Vol] 113 mg/dL High 74 - 99 mg/dL [facility] Interpretation and review of laboratory results Abnormal [facility] Glucose [Mass/Vol] 113 mg/dL High 74-99 [facility] Comment on above: Performed By: #### 2 341-6 ####SARAH Mcknight ([id number])[facility] ([facility])[address] [place] [address] 83129 Glucose [Mass/Vol] 108 mg/dL High 74 - 99 mg/dL [facility] Interpretation and review of laboratory results Abnormal [facility] Glucose [Mass/Vol] 108 mg/dL High 74-99 [facility] Comment on above: Performed By: #### 2 341-6 ####SARAH Mcknight ([id number])[facility] ([facility])[address] [place] [address] 717[address] Glucose [Mass/Vol] 107 mg/dL High 74 - 99 mg/dL [facility] Interpretation and review of laboratory results Abnormal [facility] Glucose [Mass/Vol] 107 mg/dL High 74-99 [facility] Comment on above: Performed By: #### 2 341-6 ####SARAH Mcknight ([id number])[facility] ([facility])[address] [place] [address] 09625 Glucose [Mass/Vol] 123 mg/dL High 74 - 99 mg/dL [facility] Interpretation and review of laboratory results Abnormal [facility] Glucose [Mass/Vol] 123 mg/dL High 74-99 [facility] Comment on above: Performed By: #### 2 341-6 ####SARAH Mcknight ([id number])[facility] ([facility])[address] [place] [address] Guidance for biopsy of Bilia ry ductson 04-15-2023 Radiology Study observation (narrative) [facility] Work Phone: IR BILIARYon 04-15-2023 IR BILIARY Normal [facility] Magnesiumon 04-15-2023 Magnesium [Mass/Vol] 1.98 mg/dL 1.60 - 2.40 mg/dL [facility] Magnesium [Mass/Vol] 1.98 mg/dL Normal 1.60-2.40 [facility] Comment on above: Performed By: #### 1 9123-9 ####SARAH Mcknight ([id number])[facility] ([facility])[address] [place] [address] 14923 Magnesium [Mass/Vol]on 04-15 Interpretation and review of laboratory results Normal [facility] No Panel Informationon 04-15 [facility] PT and aPTT panel Coag (PPP) on 04-15-2023 aPTT Coag (PPP) [Time] 20 s Low Un [facility] INR Coag (PPP) [Relative time] 1.2 {INR} High 0.9 - 1.1 [facility] Interpretation and review of laboratory results Abnormal [facility] PT Coag (PPP) [Time] 13.6 s High [facility] aPTT Coag (PPP) [Time] 20 s Low 27-38 [facility] Comment on above: Order Comment: The A PTT is no longer used for monitoring Unfractionated Heparin Therapy. For monitoring Heparin Therapy, use the Heparin Assay. Performed By: #### 3 4529-8 ####SARAH Mcknight ([id number])[facility] ([facility])[address] [place] [address] 690[address] INR Coag (PPP) [Relative time] 1.2 High 0.9-1.1 [facility] Comment on above: Order Comment: The A PTT is no longer used for monitoring Unfractionated Heparin Therapy. For monitoring Heparin Therapy, use the Heparin Assay. Performed By: #### 3 4529-8 ####SARAH Mcknight ([id number])[facility] ([facility])[address] [place] [address] 665[address] PT Coag (PPP) [Time] 13.6 s High 9.8-12.8 [facility] Comment on above: Order Comment: The A PTT is no longer used for monitoring Unfractionated Heparin Therapy. For monitoring Heparin Therapy, use the Heparin Assay. Performed By: #### 3 4529-8 ####SARAH Mcknight ([id number])[facility] ([facility])[address] [place] [address] Renal function 2000 panelon 04-15-2023 Albumin BCP dye [Mass/Vol] 2.4 g/dL Low 3.4 - 5.0 g/dL [facility] Anion gap [Moles/Vol] 8 mmol/L Low 10 - 2 0 mmol/L [facility] Calcium [Mass/Vol] 11.0 mg/dL High 8.6 - 10. 6 mg/dL [facility] Chloride [Moles/Vol] 108 mmol/L High 98 - 10 7 mmol/L [facility] CO2 [Moles/Vol] 23 mmol/L 21 - 32 mmol/L [facility] Creatinine [Mass/Vol] 0.51 mg/dL 0.50 - 1.30 mg/dL [facility] eGFR - PINF [facility] Glucose [Mass/Vol] 127 mg/dL High 74 - 99 mg/dL [facility] Interpretation and review of laboratory results Abnormal [facility] Phosphate [Mass/Vol] 2.4 mg/dL Low 2.5 - 4 .9 mg/dL [facility] Potassium [Moles/Vol] 4.6 mmol/L 3.5 - 5.3 mmol/L [facility] Sodium [Moles/Vol] 134 mmol/L Low 136 - 145 mmol/L [facility] Urea nitrogen [Mass/Vol] 13 mg/dL 6 - 23 mg/dL [facility] Albumin BCP dye [Mass/Vol] 2.4 g/dL Low 3.4-5.0 [facility] Comment on above: Performed By: #### 2 4362-6 ####SARAH Mcknight ([id number])[facility] ([facility])[address] [place] [address] Anion gap [Moles/Vol] 8 mmol/L Low 10-20 [facility] Comment on above: Performed By: #### 2 4362-6 ####SARAH Mcknight ([id number])[facility] ([facility])[address] [place] [address] Calcium [Mass/Vol] 11.0 mg/dL High 8.6-10.6 [facility] Comment on above: Performed By: #### 2 4362-6 ####SARAH Mcknight ([id number])[facility] ([facility])[address] [place] [address] Chloride [Moles/Vol] 108 mmol/L High 98-107 [facility] Comment on above: Performed By: #### 2 4362-6 ####SARAH Mcknight ([id number])[facility] ([facility])[address] [place] [address] CO2 [Moles/Vol] 23 mmol/L Normal 21-32 [facility] Comment on above: Performed By: #### 2 4362-6 ####SARAH Mcknight ([id number])[facility] ([facility])[address] [place] [address] Creatinine [Mass/Vol] 0.51 mg/dL Normal 0.50-1.30 [facility] Comment on above: Performed By: #### 2 4362-6 ####SARAH Mcknight ([id number])[facility] ([facility])[address] [place] [address] GFR/1.73 sq M.predicted MDRD (S/P/Bld) [Vol rate/Area] mL/min/{1.73_m2} Normal >60 [facility] Comment on above: Result Comment: Calc ulations of estimated GFR are performed using the 2020 CKD-EPI Study Refit equation without the race variable for the IDMS-Traceable creatinine methods.https://jasn.asnjournals.org/content/early/A SN.6207066068 Performed By: #### 2 4362-6 ####SARAH Mcknight ([id number])[facility] ([facility])[address] [place] [address] Glucose [Mass/Vol] 127 mg/dL High 74-99 [facility] Comment on above: Performed By: #### 2 4362-6 ####SARAH Mcknight ([id number])[facility] ([facility])[address] [place] [address] Phosphate [Mass/Vol] 2.4 mg/dL Low 2.5-4.9 [facility] Comment on above: Result Comment: The performance characteristics of phosphorus testing in heparinized plasma have been validated by the individual laboratory site where testing is performed. Testing on heparinized plasma is not approved by the FDA; however, such approval is not necessary. Performed By: #### 2 4362-6 ####SARAH Mcknight ([id number])[facility] ([facility])[address] [place] [address] Potassium [Moles/Vol] 4.6 mmol/L Normal 3.5-5.3 [facility] Comment on above: Performed By: #### 2 4362-6 ####SARAH Mcknight ([id number])[facility] ([facility])[address] [place] [address] Sodium [Moles/Vol] 134 mmol/L Low 136-145 [facility] Comment on above: Performed By: #### 2 4362-6 ####SARAH Mcknight ([id number])[facility] ([facility])[address] [place] [address] Urea nitrogen [Mass/Vol] 13 mg/dL Normal 6-23 [facility] Comment on above: Performed By: #### 2 4362-6 ####SARAH Mcknight ([id number])[facility] ([facility])[address] [place] [address] Tacrolimuson 04-15-2023 Tacrolimus (Bld) [Mass/Vol] 4.5 ng/mL Normal <=15.0 [facility] Comment on above: Order Comment: NOTE: Result was obtained using achemiluminescent microparticle immunoassay(CMIA) on the [employer]ucker i system.Optimal therapeutic ranges for immunosuppressantdrugs depend upon an individualpatient's current clinical state, type oforgan transplant, time post-transplant,co-administration of other immunosuppressants,and other clinical factors. The results ofthis test should be correlated with additionalclinical and laboratory data before changesin treatment regimens are made. Performed By: #### 1 1253-2 ####SARAH Mcknight ([id number])[facility] ([facility])[address] [place] [address] Tacrolimus (Bld) [Mass/Vol]O rdered By: Jessica Ghosh on 04-15-2023 Interpretation and review of laboratory results [facility] Tacrolimus levelOrdered By: Jessica Ghosh on 04-15-2023 Tacrolimus (Bld) [Mass/Vol] 4.5 ng/mL NINF - 15.0 ng/mL [facility] US.doppler Lower extremity v ein - bilateralon 04-15-2023 Radiology Study observation (narrative) [facility] Work Phone: VASC US LOWER EXTREMITY VENO US DUPLEX BILATERALon 04-15-2023 VASC US LOWER EXTREMITY VENOUS DUPLEX BILATERAL Normal [facility] XR CHEST 1 VIEWon 04-15-2023 XR CHEST 1 VIEW Normal [facility] XR Chest Single viewon 04-15 [facility] MMODAL [facility] MMODAL [facility] Work Phone: [facility] Work Phone: Radiology Study observation (narrative) [facility] Work Phone: Bacteria identified Cx Nom ( U)Ordered By: Santiago Garrett on 04-14-2023 Interpretation and review of laboratory results Normal [facility] CBC panel Auto (Bld)on 04-14 Erythrocyte distribution width (RBC) [Ratio] 20.1 % High 11.5 - 14.5 % [facility] Hematocrit (Bld) [Volume fraction] 25.9 % Low 41.0 - 52.0 % [facility] Hemoglobin (Bld) [Mass/Vol] 8.2 g/dL Low 13.5 - 17.5 g/dL [facility] Interpretation and review of laboratory results Abnormal [facility] MCH (RBC) [Entitic mass] 26.2 pg 26.0 - 34.0 pg [facility] MCHC (RBC) [Mass/Vol] 31.7 g/dL Low 32.0 - 36.0 g/dL [facility] MCV (RBC) [Entitic vol] 83 fL 80 - 100 fL [facility] Nucleated RBC/100 WBC (Bld) [Ratio] 0.0 % [facility] Platelets (Bld) [#/Vol] 256 10*3/uL [facility] RBC (Bld) [#/Vol] 3.13 10*6/uL Low [facility] WBC (Bld) [#/Vol] 6.7 10*3/uL [facility] Erythrocyte distribution width (RBC) [Ratio] 20.1 % High 11.5-14.5 [facility] Comment on above: Performed By: #### 5 8410-2 ####SARAH Mcknight ([id number])[facility] ([facility])[address] [place] [address] Hematocrit (Bld) [Volume fraction] 25.9 % Low 41.0-52.0 [facility] Comment on above: Performed By: #### 5 8410-2 ####SARAH Mcknight ([id number])[facility] ([facility])[address] [place] [address] Hemoglobin (Bld) [Mass/Vol] 8.2 g/dL Low 13.5-17.5 [facility] Comment on above: Performed By: #### 5 8410-2 ####SARAH Mcknight ([id number])[facility] ([facility])[address] [place] [address] 67174 MCH (RBC) [Entitic mass] 26.2 pg Normal 26.0-34.0 [facility] Comment on above: Performed By: #### 5 8410-2 ####SARAH Mcknight ([id number])[facility] ([facility])[address] [place] [address] MCHC (RBC) [Mass/Vol] 31.7 g/dL Low 32.0-36.0 [facility] Comment on above: Performed By: #### 5 8410-2 ####SARAH Mcknight ([id number])[facility] ([facility])[address] [place] [address] 83583 MCV (RBC) [Entitic vol] 83 fL Normal 80-100 [facility] Comment on above: Performed By: #### 5 8410-2 ####SARAH Mcknight ([id number])[facility] ([facility])[address] [place] [address] Nucleated RBC/100 WBC (Bld) [Ratio] 0.0 /100 WBCs Normal 0.0-0.0 [facility] Comment on above: Performed By: #### 5 8410-2 ####SARAH Mcknight ([id number])[facility] ([facility])[address] [place] [address] Platelets (Bld) [#/Vol] 256 x10*3/uL Normal 150-450 [facility] Comment on above: Performed By: #### 5 8410-2 ####SARAH Mcknight ([id number])[facility] ([facility])[address] [place] [address] RBC (Bld) [#/Vol] 3.13 x10*6/uL Low 4.50-5.90 [facility] Comment on above: Performed By: #### 5 8410-2 ####SARAH Mcknight ([id number])[facility] ([facility])[address] [place] [address] WBC (Bld) [#/Vol] 6.7 x10*3/uL Normal 4.4-11.3 [facility] Comment on above: Performed By: #### 5 8410-2 ####SARAH Mcknight ([id number])[facility] ([facility])[address] [place] [address] Erythrocyte distribution width (RBC) [Ratio] 20.4 % High 11.5 - 14.5 % [facility] Hematocrit (Bld) [Volume fraction] 24.1 % Low 41.0 - 52.0 % [facility] Hemoglobin (Bld) [Mass/Vol] 7.5 g/dL Low 13.5 - 17.5 g/dL [facility] Interpretation and review of laboratory results Abnormal [facility] MCH (RBC) [Entitic mass] 25.3 pg Low 26.0 - 34.0 pg [facility] MCHC (RBC) [Mass/Vol] 31.1 g/dL Low 32.0 - 36.0 g/dL [facility] MCV (RBC) [Entitic vol] 81 fL 80 - 100 fL [facility] Nucleated RBC/100 WBC (Bld) [Ratio] 0.0 % [facility] Platelets (Bld) [#/Vol] 243 10*3/uL [facility] RBC (Bld) [#/Vol] 2.97 10*6/uL Low [facility] WBC (Bld) [#/Vol] 6.1 10*3/uL [facility] Erythrocyte distribution width (RBC) [Ratio] 20.4 % High 11.5-14.5 [facility] Comment on above: Performed By: #### 5 8410-2 ####SARAH Mcknight ([id number])[facility] ([facility])[address] [place] [address] Hematocrit (Bld) [Volume fraction] 24.1 % Low 41.0-52.0 [facility] Comment on above: Performed By: #### 5 8410-2 ####SARAH Mcknight ([id number])[facility] ([facility])[address] [place] [address]70[address] Hemoglobin (Bld) [Mass/Vol] 7.5 g/dL Low 13.5-17.5 [facility] Comment on above: Performed By: #### 5 8410-2 ####SARAH Mcknight ([id number])[facility] ([facility])[address] [place] [address] 23431 MCH (RBC) [Entitic mass] 25.3 pg Low 26.0-34.0 [facility] Comment on above: Performed By: #### 5 8410-2 ####SRAAH Mcknight ([id number])[facility] ([facility])[address] [place] [address]227 MCHC (RBC) [Mass/Vol] 31.1 g/dL Low 32.0-36.0 [facility] Comment on above: Performed By: #### 5 8410-2 ####SARAH Mcknight ([id number])[facility] ([facility])[address] [place] [address] MCV (RBC) [Entitic vol] 81 fL Normal 80-100 [facility] Comment on above: Performed By: #### 5 8410-2 ####SARAH Mcknight (43535)[facility] ([facility])[address] [place] [address] Nucleated RBC/100 WBC (Bld) [Ratio] 0.0 /100 WBCs Normal 0.0-0.0 [facility] Comment on above: Performed By: #### 5 8410-2 ####SARAH Mcknight ([id number])[facility] ([facility])[address] [place] [address]14[address] Platelets (Bld) [#/Vol] 243 x10*3/uL Normal 150-450 [facility] Comment on above: Performed By: #### 5 8410-2 ####SARAH Mcknight ([id number])[facility] ([facility])[address] [place] [address] 672[address] RBC (Bld) [#/Vol] 2.97 x10*6/uL Low 4.50-5.90 [facility] Comment on above: Performed By: #### 5 8410-2 ####SARAH Mcknight ([id number])[facility] ([facility])[address] [place] [address]1973 WBC (Bld) [#/Vol] 6.1 x10*3/uL Normal 4.4-11.3 [facility] Comment on above: Performed By: #### 5 8410-2 ####SARAH Mcknight ([id number])[facility] ([facility])[address] [place] [address]69[address] Erythrocyte distribution width (RBC) [Ratio] 20.4 % High 11.5 - 14.5 % [facility] Hematocrit (Bld) [Volume fraction] 23.3 % Low 41.0 - 52.0 % [facility] Hemoglobin (Bld) [Mass/Vol] 7.2 g/dL Low 13.5 - 17.5 g/dL [facility] Interpretation and review of laboratory results Abnormal [facility] MCH (RBC) [Entitic mass] 24.5 pg Low 26.0 - 34.0 pg [facility] MCHC (RBC) [Mass/Vol] 30.9 g/dL Low 32.0 - 36.0 g/dL [facility] MCV (RBC) [Entitic vol] 79 fL Low 80 - 100 fL [facility] Nucleated RBC/100 WBC (Bld) [Ratio] 0.0 % [facility] Platelets (Bld) [#/Vol] 276 10*3/uL [facility] RBC (Bld) [#/Vol] 2.94 10*6/uL Low [facility] WBC (Bld) [#/Vol] 7.1 10*3/uL [facility] Erythrocyte distribution width (RBC) [Ratio] 20.4 % High 11.5-14.5 [facility] Comment on above: Performed By: #### 5 8410-2 ####SARAH Mcknight ([id number])[facility] ([facility])[address] [place] [address] Hematocrit (Bld) [Volume fraction] 23.3 % Low 41.0-52.0 [facility] Comment on above: Performed By: #### 5 8410-2 ####SARAH Mcknight (49642)[facility] ([facility])[address] [place] [address] Hemoglobin (Bld) [Mass/Vol] 7.2 g/dL Low 13.5-17.5 [facility] Comment on above: Performed By: #### 5 8410-2 ####SARAH Mcknight (45462)[facility] ([facility])[address] [place] [address] MCH (RBC) [Entitic mass] 24.5 pg Low 26.0-34.0 [facility] Comment on above: Performed By: #### 5 8410-2 ####SARAH Mcknight ([id number])[facility] ([facility])[address] [place] [address] MCHC (RBC) [Mass/Vol] 30.9 g/dL Low 32.0-36.0 [facility] Comment on above: Performed By: #### 5 8410-2 ####SARAH Mcknight ([id number])[facility] ([facility])[address] [place] [address] MCV (RBC) [Entitic vol] 79 fL Low 80-100 [facility] Comment on above: Performed By: #### 5 8410-2 ####SARAH Mcknight ([id number])[facility] ([facility])[address] [place] [address] 82180 Nucleated RBC/100 WBC (Bld) [Ratio] 0.0 /100 WBCs Normal 0.0-0.0 [facility] Comment on above: Performed By: #### 5 8410-2 ####SARAH Mcknight ([id number])[facility] ([facility])[address] [place] [address] Platelets (Bld) [#/Vol] 276 x10*3/uL Normal 150-450 [facility] Comment on above: Performed By: #### 5 8410-2 ####SARAH Mcknight ([id number])[facility] ([facility])[address] [place] [address] RBC (Bld) [#/Vol] 2.94 x10*6/uL Low 4.50-5.90 [facility] Comment on above: Performed By: #### 5 8410-2 ####SARAH Mcknight ([id number])[facility] ([facility])[address] [place] [address] WBC (Bld) [#/Vol] 7.1 x10*3/uL Normal 4.4-11.3 [facility] Comment on above: Performed By: #### 5 8410-2 ####SARAH Mcknight ([id number])[facility] ([facility])[address] [place] [address] ECG 12-LEADon 04-14-2023 ECG 12-LEAD Ventricular Rate 103 Atrial Rate 103 P-R Interval 160 QRS Duration 94 Q-T Interval 358 QTC Calculation(Bazett) 468 P [place] 83 R [place] -39 T [place] 82 QRS Count 17 Q Onset 214 P Onset 134 P Offset 187 T Offset 393 QTC Fredericia 429 Diagnosis Sinus tachycardia Left axis deviation Anterolateral infarct , age undetermined Abnormal ECG When compared with ECG of 14-APR-2023 00:23, Anterior infarct is now Present Anterolateral infarct is now Present T wave inversion now evident in Anterior leads Confirmed by Abel Valladares ([id number]) on 04/24/2023 12:43:01 PM Normal [facility] ECG 12-LEAD Ventricular Rate 91 Atrial Rate 91 P-R Interval 164 QRS Duration 88 Q-T Interval 340 QTC Calculation(Bazett) 418 P [place] 9 R [place] -14 T [place] 70 QRS Count 15 Q Onset 217 P Onset 135 P Offset 201 T Offset 387 QTC Fredericia 391 Diagnosis Normal sinus rhythm Normal ECG When compared with ECG of 24-FEB-2023 23:07, Previous ECG has undetermined rhythm, needs review Confirmed by Abel Valladares ([id number]) on 04/24/2023 1:06:38 PM Normal [facility] Extra Urine Perez Tubeon 03-17 Extra Tube Hold for add-ons. [facility] Gas panel (BldV)on 4 Anion gap 4 (BldV) [Moles/Vol] 11.0 mmol/L 10.0 - 25.0 mmol/L [facility] Base excess Calc (BldV) [Moles/Vol] -5.8000 mmol/L Low -2.0 - 3.0 mmol/L [facility] Calcium.ionized (BldV) [Moles/Vol] 1.77 mmol/L High 1.10 - 1.33 mmol/L [facility] Chloride (BldV) [Moles/Vol] 106 mmol/L 98 - 107 mmol/L [facility] CO2 (BldV) [Partial pressure] 36 mm[Hg] Low [facility] Glucose [Mass/Vol] 127 mg/dL High 74 - 99 mg/dL [facility] HCO3 (Bld) [Moles/Vol] 19.4 mmol/L Low 22.0 - 26.0 mmol/L [facility] Hematocrit Est (Bld) [Volume fraction] 22.0 % Low 41.0 - 52.0 % [facility] Hemoglobin (Bld) [Mass/Vol] 7.2 g/dL Low 13.5 - 17.5 g/dL [facility] Inhaled oxygen concentration 28 % [facility] Interpretation and review of laboratory results Abnormal [facility] Lactate (BldV) [Moles/Vol] 0.5 mmol/L 0.4 - 2.0 mmol/L [facility] Oxygen (BldV) [Partial pressure] 72 mm[Hg] High [facility] Oxygen saturation in Venous blood 96 % High 45 - 75 % [facility] Oxyhemoglobin (BldV) [Mass fraction] 93.2 % High 45.0 - 75.0 % [facility] pH (BldV) 7.34 [pH] 7.33 - 7.43 pH [facility] Potassium (BldV) [Moles/Vol] 5.9 mmol/L High 3.5 - 5.3 mmol/L [facility] Sodium (BldV) [Moles/Vol] 130 mmol/L Low 136 - 145 mmol/L [facility] Anion gap 4 (BldV) [Moles/Vol] 11.0 mmol/L Normal 10.0-25.0 [facility] Comment on above: Performed By: #### 2 4339-4 ####SARAH Mcknight ([id number])[facility] ([facility])[address] [place] [address] Base excess Calc (BldV) [Moles/Vol] -5.8000 mmol/L Low -2.0-3.0 [facility] Comment on above: Performed By: #### 2 4339-4 ####SARAH Mcknight ([id number])[facility] ([facility])[address] [place] [address] Calcium.ionized (BldV) [Moles/Vol] 1.77 mmol/L High 1.10-1.33 [facility] Comment on above: Performed By: #### 2 4339-4 ####SARAH Mcknight ([id number])[facility] ([facility])[address] [place] [address] Chloride (BldV) [Moles/Vol] 106 mmol/L Normal 98-107 [facility] Comment on above: Performed By: #### 2 4339-4 ####SARAH Mcknight ([id number])[facility] ([facility])[address] [place] [address] 16464 CO2 (BldV) [Partial pressure] 36 mm Hg Low 41-51 [facility] Comment on above: Performed By: #### 2 4339-4 ####SARAH Mcknight ([id number])[facility] ([facility])[address] [place] [address] 80231 Glucose [Mass/Vol] 127 mg/dL High 74-99 [facility] Comment on above: Performed By: #### 2 4339-4 ####SARAH Mcknight ([id number])[facility] ([facility])[address] [place] [address] HCO3 (Bld) [Moles/Vol] 19.4 mmol/L Low 22.0-26.0 [facility] Comment on above: Performed By: #### 2 4339-4 ####SARAH Mcknight (36893)[facility] ([facility])[address] [place] [address] Hematocrit Est (Bld) [Volume fraction] 22.0 % Low 41.0-52.0 [facility] Comment on above: Performed By: #### 2 4339-4 ####SARAH OMER L ([id number])[facility] ([facility])[address] [place] [address] 40291 Hemoglobin (Bld) [Mass/Vol] 7.2 g/dL Low 13.5-17.5 [facility] Comment on above: Performed By: #### 2 4339-4 ####SARAH Mcknight (23051)[facility] ([facility])[address] [place] [address] Inhaled oxygen concentration 28 % Normal [facility] Comment on above: Result Comment: 2L Performed By: #### 2 4339-4 ####SARAH Mcknight ([id number])[facility] ([facility])[address] [place] [address] Lactate (BldV) [Moles/Vol] 0.5 mmol/L Normal 0.4-2.0 [facility] Comment on above: Performed By: #### 2 4339-4 ####SARAH Mcknight ([id number])[facility] ([facility])[address] [place] [address] 18683 Oxygen (BldV) [Partial pressure] 72 mm Hg High 35-45 [facility] Comment on above: Performed By: #### 2 4339-4 ####SARAH Mcknight ([id number])[facility] ([facility])[address] [place] [address] 96146 Oxygen saturation in Venous blood 96 % High 45-75 [facility] Comment on above: Performed By: #### 2 4339-4 ####SARAH Mcknight ([id number])[facility] ([facility])[address] [place] [address] 10110 Oxyhemoglobin (BldV) [Mass fraction] 93.2 % High 45.0-75.0 [facility] Comment on above: Performed By: #### 2 4339-4 ####SARAH Mcknight ([id number])[facility] ([facility])[address] [place] [address] 71344 pH (BldV) 7.34 [pH] Normal 7.33-7.43 [facility] Comment on above: Performed By: #### 2 4339-4 ####SARAH Mcknight ([id number])[facility] ([facility])[address] [place] [address] 45909 Potassium (BldV) [Moles/Vol] 5.9 mmol/L High 3.5-5.3 [facility] Comment on above: Performed By: #### 2 4339-4 ####SARAH Mcknight (13926)[facility] ([facility])[address] [place] [address] Sodium (BldV) [Moles/Vol] 130 mmol/L Low 136-145 [facility] Comment on above: Performed By: #### 2 4339-4 ####SARAH Mcknight ([id number])[facility] ([facility])[address] [place] [address] 13985 Glucose Test strip manual (B ld) [Mass/Vol]on 04-14-2023 Glucose [Mass/Vol] 135 mg/dL High 74 - 99 mg/dL [facility] Interpretation and review of laboratory results Abnormal [facility] Glucose [Mass/Vol] 135 mg/dL High 74-99 [facility] Comment on above: Performed By: #### 2 341-6 ####SARAH Mcknight ([id number])[facility] ([facility])[id number] [place] [address] [id number] Glucose [Mass/Vol] 115 mg/dL High 74 - 99 mg/dL [facility] Interpretation and review of laboratory results Abnormal [facility] Glucose [Mass/Vol] 115 mg/dL High 74-99 [facility] Comment on above: Performed By: #### 2 341-6 ####SARAH Mcknight ([id number])[facility] ([facility])[id number] [place] [address] Glucose [Mass/Vol] 119 mg/dL High 74 - 99 mg/dL [facility] Interpretation and review of laboratory results Abnormal [facility] Glucose [Mass/Vol] 119 mg/dL High 74-99 [facility] Comment on above: Performed By: #### 2 341-6 ####SARAH Mcknight ([id number])[facility] [facility] [place] [address] Glucose [Mass/Vol] 126 mg/dL High 74 - 99 mg/dL [facility] Interpretation and review of laboratory results Abnormal [facility] Glucose [Mass/Vol] 126 mg/dL High 74-99 [facility] Comment on above: Performed By: #### 2 341-6 ####SARAH Mcknight ([id number])[facility] ([facility])[address] [place] [address] Glucose [Mass/Vol] 106 mg/dL High 74 - 99 mg/dL [facility] Interpretation and review of laboratory results Abnormal [facility] Glucose [Mass/Vol] 106 mg/dL High 74-99 [facility] Comment on above: Performed By: #### 2 341-6 ####SARAH Mcknight ([id number])[facility] ([facility])[address] [place] [address] Glucose [Mass/Vol] 143 mg/dL High 74 - 99 mg/dL [facility] Interpretation and review of laboratory results Abnormal [facility] Glucose [Mass/Vol] 143 mg/dL High 74-99 [facility] Comment on above: Performed By: #### 2 341-6 ####SARAH Mcknight ([id number])[facility] ([facility])[address] [place] [address] Magnesiumon 04-14-2023 Magnesium [Mass/Vol] 2.13 mg/dL 1.60 - 2.40 mg/dL [facility] Magnesium [Mass/Vol] 2.13 mg/dL Normal 1.60-2.40 [facility] Comment on above: Performed By: #### 1 9123-9 ####SARAH Mcknight ([id number])[facility] ([facility])[address] [place] [address] Magnesium [Mass/Vol]on 04-14 Interpretation and review of laboratory results Normal [facility] No Panel Informationon 04-14 [facility] Prepare RBC: 1 Unitson 04-14 Blood Expiration Date April 14, 2023 2 3:59 EST [facility] Dispense Status TR [facility] PRODUCT BLOOD TYPE 6200 [facility] PRODUCT CODE [id number] [facility] Unit ABO A [facility] Unit Number [id number] [facility] Unit RH Positive [facility] UNIT VOLUME 350 [facility] XM INTEP COMP [facility] Renal function 2000 panelon 04-14-2023 Albumin BCP dye [Mass/Vol] 2.7 g/dL Low 3.4 - 5.0 g/dL [facility] Anion gap [Moles/Vol] 16 mmol/L 10 - 2 0 mmol/L [facility] Calcium [Mass/Vol] 10.9 mg/dL High 8.6 - 10. 6 mg/dL [facility] Chloride [Moles/Vol] 104 mmol/L 98 - 10 7 mmol/L [facility] CO2 [Moles/Vol] 18 mmol/L Low 21 - 32 mmol/L [facility] Creatinine [Mass/Vol] 0.49 mg/dL Low 0.50 - 1.30 mg/dL [facility] eGFR - PINF [facility] Glucose [Mass/Vol] 89 mg/dL 74 - 99 mg/dL [facility] Interpretation and review of laboratory results Abnormal [facility] Phosphate [Mass/Vol] 3.5 mg/dL 2.5 - 4 .9 mg/dL [facility] Potassium [Moles/Vol] 4.9 mmol/L 3.5 - 5.3 mmol/L [facility] Sodium [Moles/Vol] 133 mmol/L Low 136 - 145 mmol/L [facility] Urea nitrogen [Mass/Vol] 14 mg/dL 6 - 23 mg/dL [facility] Albumin BCP dye [Mass/Vol] 2.7 g/dL Low 3.4-5.0 [facility] Comment on above: Performed By: #### 2 4362-6 ####SARAH Mcknight ([id number])[facility] ([facility])[address] [place] [address] Anion gap [Moles/Vol] 16 mmol/L Normal 10-20 [facility] Comment on above: Performed By: #### 2 4362-6 ####SARAH Mcknight ([id number])[facility] ([facility])[address] [place] [address] Calcium [Mass/Vol] 10.9 mg/dL High 8.6-10.6 [facility] Comment on above: Performed By: #### 2 4362-6 ####SARAH OMER L ([id number])[facility] ([facility])[address] [place] [address] Chloride [Moles/Vol] 104 mmol/L Normal 98-107 [facility] Comment on above: Performed By: #### 2 4362-6 ####SARAH Mcknight (40524)[facility] ([facility])[address] [place] [address] CO2 [Moles/Vol] 18 mmol/L Low 21-32 [facility] Comment on above: Performed By: #### 2 4362-6 ####SARAH Mcknight (18539)[facility] ([facility])[address] [place] [address] Creatinine [Mass/Vol] 0.49 mg/dL Low 0.50-1.30 [facility] Comment on above: Performed By: #### 2 4362-6 ####SARAH Mcknight (41955)[facility] ([facility])[address] [place] [address] GFR/1.73 sq M.predicted MDRD (S/P/Bld) [Vol rate/Area] mL/min/{1.73_m2} Normal >60 [facility] Comment on above: Result Comment: Calc ulations of estimated GFR are performed using the 2020 CKD-EPI Study Refit equation without the race variable for the IDMS-Traceable creatinine methods.https://jasn.asnjournals.org/content//A SN.8721660748 Performed By: #### 2 4362-6 ####SARAH Mcknight ([id number])[facility] ([facility])[address] [place] [address] Glucose [Mass/Vol] 89 mg/dL Normal 74-99 [facility] Comment on above: Performed By: #### 2 4362-6 ####SARAH Mcknight (68436)[facility] ([facility])[address] [place] [address] Phosphate [Mass/Vol] 3.5 mg/dL Normal 2.5-4.9 [facility] Comment on above: Result Comment: The performance characteristics of phosphorus testing in heparinized plasma have been validated by the individual laboratory site where testing is performed. Testing on heparinized plasma is not approved by the FDA; however, such approval is not necessary. Performed By: #### 2 4362-6 ####SARAH Mcknight ([id number])[facility] ([facility])[address] [place] [address] Potassium [Moles/Vol] 4.9 mmol/L Normal 3.5-5.3 [facility] Comment on above: Performed By: #### 2 4362-6 ####SARAH Mcknight (19801)[facility] ([facility])[address] [place] [address] Sodium [Moles/Vol] 133 mmol/L Low 136-145 [facility] Comment on above: Performed By: #### 2 4362-6 ####SARAH Mcknight ([id number])[facility] ([facility])[address] [place] [address] Urea nitrogen [Mass/Vol] 14 mg/dL Normal 6-23 [facility] Comment on above: Performed By: #### 2 4362-6 ####SARAH Mcknight ([id number])[facility] ([facility])[address] [place] [address] Urinalysis complete panel (U )Ordered By: Ruchi Chapin on 04-14-2023 Appearance (U) Hazy Abnormal Clear [facility] Bilirubin (U) [Mass/Vol] Negative NEGATIVE [facility] Color (U) Yellow Straw, Yellow [facility] Glucose Auto test strip (U) [Mass/Vol] >=500 (3+) Abnormal NEGATIVE mg/dL [facility] Interpretation and review of laboratory results Abnormal [facility] Ketones (U) [Mass/Vol] 5 (TRACE) Abnormal NEGAT EVY mg/dL [facility] Leukocyte esterase Auto test strip Ql (U) MODERATE (2+) Abnormal NEGATIVE [facility] Nitrite Auto test strip Ql (U) Negative NEGATIVE [facility] pH (U) 7.0 [pH] 5.0, 5.5, 6.0, 6.5, 7.0, 7.5, 8.0 [facility] Protein (U) [Mass/Vol] 30 (1+) Abnormal NEGAT EVY mg/dL [facility] RBC (U) [#/Vol] MODERATE (2+) Abnormal NEGATIVE [facility] Specific gravity (U) [Rel density] 1.022 1.005 - 1.035 [facility] Urobilinogen (U) [Mass/Vol] mg/dL NINF - 2.0 mg/dL [facility] Urinalysis complete panel (U )on 04-14-2023 Appearance (U) Hazy Normal Clear [facility] Comment on above: Performed By: #### 2 4356-8 ####SARAH Mckinght ([id number])[facility] ([facility])[address] [place] [address] Bilirubin (U) [Mass/Vol] Negative Normal NEGATIVE [facility] Comment on above: Performed By: #### 2 4356-8 ####SARAH Mcknight (35352)[facility] ([facility])[address] [place] [address] Color (U) Yellow Normal Straw, Yellow [facility] Comment on above: Performed By: #### 2 4356-8 ####SARAH Mcknight (93799)[facility] ([facility])[address] [place] [address] Glucose Auto test strip (U) [Mass/Vol] >=500 (3+) Abnormal NEGATIVE [facility] Comment on above: Performed By: #### 2 4356-8 ####SARAH Mcknight (91326)[facility] ([facility])[address] [place] [address] Ketones (U) [Mass/Vol] 5 (TRACE) Abnormal NEGATIVE [facility] Comment on above: Performed By: #### 2 4356-8 ####SARAH Mcknight (32011)[facility] ([facility])[address] [place] [address] Leukocyte esterase Auto test strip Ql (U) MODERATE (2+) Abnormal NEGATIVE [facility] Comment on above: Performed By: #### 2 4356-8 ####SARAH Mcknight (42349)[facility] ([facility])[address] [place] [address] Nitrite Auto test strip Ql (U) Negative Normal NEGATIVE [facility] Comment on above: Performed By: #### 2 4356-8 ####SARAH Mcknight (69868)[facility] ([facility])[address] [place] [address] pH (U) 7.0 [pH] Normal 5.0, 5.5, 6.0, 6.5, 7.0, 7.5, 8.0 [facility] Comment on above: Performed By: #### 2 4356-8 ####SARAH Mcknight (26198)[facility] ([facility])[address] [place] [address] Protein (U) [Mass/Vol] 30 (1+) Normal NEGATIVE [facility] Comment on above: Performed By: #### 2 4356-8 ####SARAH Mcknight (06350)[facility] ([facility])[address] [place] [address] RBC (U) [#/Vol] MODERATE (2+) Abnormal NEGATIVE [facility] Comment on above: Performed By: #### 2 4356-8 ####SARAH Mcknight ([id number])[facility] ([facility])[address] [place] [address] Specific gravity (U) [Rel density] 1.022 Normal 1.005-1.035 [facility] Comment on above: Performed By: #### 2 4356-8 ####SARAH Mcknight (07386)[facility] ([facility])[address] [place], [place] [address] Urobilinogen (U) [Mass/Vol] mg/dL Normal <2.0 [facility] Comment on above: Performed By: #### 2 4356-8 ####SARAH Mcknight ([id number])[facility] ([facility])[address] [place] [address] Urinalysis microscopic panel Auto Ql (U)on 04-14-2023 Interpretation and review of laboratory results Abnormal [facility] RBC Auto (Urine sed) [#/Area] >20 Abnormal NONE, 1-2, 3-5 /HPF [facility] WBC Auto (Urine sed) [#/Area] 21-50 Abnormal 1-5, NONE /HPF [facility] RBC Auto (Urine sed) [#/Area] >20 Abnormal NONE, 1-2, 3-5 [facility] Comment on above: Performed By: #### 5 3315-8 ####SARAH Mcknight (90395)[facility] ([facility])[address] [place], [place] [address] WBC Auto (Urine sed) [#/Area] 21-50 Abnormal 1-5, NONE [facility] Comment on above: Performed By: #### 5 3315-8 ####SARAH Mcknight (93317)[facility] ([facility])[address] [place], [place] [address] Urine CultureOrdered By: Abhinav Garrett on 04-14-2023 Bacteria identified Cx Nom (U) No growth [facility] XR CHEST 1 VIEWon 04-14-2023 XR CHEST 1 VIEW Normal [facility] XR Chest Single viewon 04-14 [facility] MMODAL UH MMODAL [facility] Work Phone: Radiology Study observation (narrative) [facility] Work Phone: XR Chest Single viewOrdered By: Fady Wilson on 04-14-2023 [facility] Work Phone: BNPon 04-13-2023 Int Ctr BNP Pass Normal [facility] Comment on above: Performed By: #### 2 298722, 7903645, 19469281, 8629362, 99761617, 0060669, 25438907, 60666665 ####[facility] [address] [place] [address] Natriuretic peptide B (Bld) [Mass/Vol] 270 pg/mL High 5-80 [facility] Comment on above: Performed By: #### 2 405226, 2363273, 48070598, 8149293, 70636238, 3780446, 38445739, 88229968 ####[facility] [address] [place] [address] Bacteria identifiedon 2023 Bacteria identified Cx Nom (U) Normal [facility] Comment on above: Performed By: #### 6 30-4 ####SARAH Mcknight (42220)[facility] ([facility])[address] [place] [address] Bacteria identified Cx Nom (Unsp spec) Abnormal [facility] Comment on above: Performed By: #### 6 463-4 ####SARAH Mcknight (98690)[facility] ([facility])[address] [place] [address] Bacteria identified Cx Nom (Unsp spec) Abnormal [facility] Comment on above: Performed By: #### 6 463-4 ####SARAH Mcknight (83417)[facility] ([facility])[address] [place] [address] Basic metabolic 2000 panelon 04-13-2023 Anion gap [Moles/Vol] 11 mmol/L 10 - 2 0 mmol/L [facility] Calcium [Mass/Vol] 10.4 mg/dL 8.6 - 10. 6 mg/dL [facility] Chloride [Moles/Vol] 105 mmol/L 98 - 10 7 mmol/L [facility] CO2 [Moles/Vol] 21 mmol/L 21 - 32 mmol/L [facility] Creatinine [Mass/Vol] 0.59 mg/dL 0.50 - 1.30 mg/dL [facility] eGFR - PINF [facility] Glucose [Mass/Vol] 123 mg/dL High 74 - 99 mg/dL [facility] Interpretation and review of laboratory results Abnormal [facility] Potassium [Moles/Vol] 5.1 mmol/L 3.5 - 5.3 mmol/L [facility] Sodium [Moles/Vol] 132 mmol/L Low 136 - 145 mmol/L [facility] Urea nitrogen [Mass/Vol] 15 mg/dL 6 - 23 mg/dL [facility] Anion gap [Moles/Vol] 11 mmol/L Normal 10-20 [facility] Comment on above: Performed By: #### 2 4321-2 ####SARAH Mcknight (93538)[facility] ([facility])[address] [place] [address] Calcium [Mass/Vol] 10.4 mg/dL Normal 8.6-10.6 [facility] Comment on above: Performed By: #### 2 4321-2 ####SARAH Mcknight (35067)[facility] ([facility])[address] [place] [address] Chloride [Moles/Vol] 105 mmol/L Normal 98-107 [facility] Comment on above: Performed By: #### 2 4321-2 ####SARAH Mcknight (78994)[facility] ([facility])[address] [place] [address] CO2 [Moles/Vol] 21 mmol/L Normal 21-32 [facility] Comment on above: Performed By: #### 2 4321-2 ####SARAH Mcknight (51387)[facility] ([facility])[address] [place] [address] Creatinine [Mass/Vol] 0.59 mg/dL Normal 0.50-1.30 [facility] Comment on above: Performed By: #### 2 4321-2 ####SARAH Mcknight (86393)[facility] ([facility])[address] [place] [address] GFR/1.73 sq M.predicted MDRD (S/P/Bld) [Vol rate/Area] mL/min/{1.73_m2} Normal >60 [facility] Comment on above: Result Comment: Calc ulations of estimated GFR are performed using the 2020 CKD-EPI Study Refit equation without the race variable for the IDMS-Traceable creatinine methods.https://jasn.asnjournals.org/content//A .3207190104 Performed By: #### 2 4321-2 ####SARAH Mcknight (49693)[facility] ([facility])[address] [place] [address] Glucose [Mass/Vol] 123 mg/dL High 74-99 [facility] Comment on above: Performed By: #### 2 4321-2 ####SARAH Mcknight (07242)[facility] ([facility])[address] [place] [address] Potassium [Moles/Vol] 5.1 mmol/L Normal 3.5-5.3 [facility] Comment on above: Performed By: #### 2 4321-2 ####SARAH OMER L (93524)[facility] ([facility])[address] [place] [address] Sodium [Moles/Vol] 132 mmol/L Low 136-145 [facility] Comment on above: Performed By: #### 2 4321-2 ####SARAH OMER L (83294)[facility] ([facility])[address] [place] [address] [place] [address] Urea nitrogen [Mass/Vol] 15 mg/dL Normal 6-23 [facility] Comment on above: Performed By: #### 2 4321-2 ####SARAH Mcknight (30325)[facility] ([facility])[address] [place] [address] Blood type and Indirect anti body screen panel (Bld)on 04-13-2023 ABO group Nom (Bld) A [facility] Blood group antibody screen Ql Negative [facility] D Ag Ql (Bld) Positive [facility] ABO group Nom (Bld) A Normal [facility] Comment on above: Performed By: #### 3 4532-2 ####SARAH Mcknight (74382)[facility] ([facility])[address] [place] [address] Blood group antibody screen Ql Negative Normal [facility] Comment on above: Performed By: #### 3 4532-2 ####SARAH Mcknight (82419)[facility] ([facility])[address] [place] [address] D Ag Ql (Bld) Positive Normal [facility] Comment on above: Performed By: #### 3 4532-2 ####SARAH Mcknight (31894)[facility] ([facility])[address] [place] [address] CALCIUM, IONIZEDon 4 Calcium.ionized (Bld) [Moles/Vol] 1.74 mmol/L High 1.1 - 1.33 mmol/L [facility] CBC panel Auto (Bld)on 04-13 Erythrocyte distribution width (RBC) [Ratio] 21.3 % High 11.5 - 14.5 % [facility] Hematocrit (Bld) [Volume fraction] 23.8 % Low 41.0 - 52.0 % [facility] Hemoglobin (Bld) [Mass/Vol] 7.2 g/dL Low 13.5 - 17.5 g/dL [facility] Interpretation and review of laboratory results Abnormal [facility] MCH (RBC) [Entitic mass] 23.7 pg Low 26.0 - 34.0 pg [facility] MCHC (RBC) [Mass/Vol] 30.3 g/dL Low 32.0 - 36.0 g/dL [facility] MCV (RBC) [Entitic vol] 78 fL Low 80 - 100 fL [facility] Nucleated RBC/100 WBC (Bld) [Ratio] 0.0 % [facility] Platelets (Bld) [#/Vol] 319 10*3/uL [facility] RBC (Bld) [#/Vol] 3.04 10*6/uL Low [facility] WBC (Bld) [#/Vol] 10.0 10*3/uL [facility] Erythrocyte distribution width (RBC) [Ratio] 21.3 % High 11.5-14.5 [facility] Comment on above: Performed By: #### 5 8410-2 ####SARAH Mcknight (16212)[facility] ([facility])[address] [place] [address] Hematocrit (Bld) [Volume fraction] 23.8 % Low 41.0-52.0 [facility] Comment on above: Performed By: #### 5 8410-2 ####SARAH Mcknight (69411)[facility] ([facility])[address] [place] [address] Hemoglobin (Bld) [Mass/Vol] 7.2 g/dL Low 13.5-17.5 [facility] Comment on above: Performed By: #### 5 8410-2 ####SARAH Mcknight (11063)[facility] ([facility])[address] [place] [address] MCH (RBC) [Entitic mass] 23.7 pg Low 26.0-34.0 [facility] Comment on above: Performed By: #### 5 8410-2 ####SARAH Mcknight (22828)[facility] ([facility])[address] [place] [address] MCHC (RBC) [Mass/Vol] 30.3 g/dL Low 32.0-36.0 [facility] Comment on above: Performed By: #### 5 8410-2 ####SARAH Mcknight (19640)[facility] ([facility])[address] [place] [address] MCV (RBC) [Entitic vol] 78 fL Low 80-100 [facility] Comment on above: Performed By: #### 5 8410-2 ####SARAH Mcknight (22855)[facility] ([facility])[address] [place] [address] Nucleated RBC/100 WBC (Bld) [Ratio] 0.0 /100 WBCs Normal 0.0-0.0 [facility] Comment on above: Performed By: #### 5 8410-2 ####SARAH Mcknight (99866)[facility] ([facility])[address] [place] [address] Platelets (Bld) [#/Vol] 319 x10*3/uL Normal 150-450 [facility] Comment on above: Performed By: #### 5 8410-2 ####SARAH Mcknight (55428)[facility] ([facility])[address] [place] [address] RBC (Bld) [#/Vol] 3.04 x10*6/uL Low 4.50-5.90 [facility] Comment on above: Performed By: #### 5 8410-2 ####SARAH Mcknight (67163)[facility] ([facility])[address] [place] [address] WBC (Bld) [#/Vol] 10.0 x10*3/uL Normal 4.4-11.3 [facility] Comment on above: Performed By: #### 5 8410-2 ####SARAH Mcknight (58538)[facility] ([facility])[address] [place] [address] CBC w/ Auto Diffon 4 Anisocytosis Ql (Bld) PRESENT Invalid Interpretation Code [facility] Comment on above: Performed By: #### 2 052326, 9649656, 55951748, 7954909, 01903138, 3399238, 38608793, 15469437 ####[facility] [address] [place] [address] Hypochromasia PRESENT Invalid Interpretation Code [facility] Comment on above: Performed By: #### 2 448929, 6728175, 30438384, 9063720, 68533291, 3658420, 84067842, 16883933 ####[place] [address] Poikilocytosis PRESENT Invalid Interpretation Code [facility] Comment on above: Performed By: #### 2 778317, 6631404, 43531517, 1475165, 83718775, 7763612, 16886575, 82298025 ####[place] [address] RBC morphology finding Nom (Bld) SEE MORPHOLOGY Invalid Interpretation Code [facility] Comment on above: Performed By: #### 2 978006, 3708157, 50381029, 8340974, 05318967, 6694835, 29636848, 94336226 ####[address] [address] Basophil Absolute 0.0 E9/L Normal 0.0-0.2 [facility] Comment on above: Performed By: #### 2 939456, 5914910, 52832672, 5150760, 23059148, 2432780, 37535087, 94481438 ####[address] [address] Basophils/100 WBC (Bld) 0.4 % Normal 0.0-2.0 [facility] Comment on above: Performed By: #### 2 387297, 3181989, 69066616, 2024631, 64819449, 6863757, 10504038, 06153225 ####[facility] [address] [place] [address] Eos Absolute 0.0 E9/L Normal 0.0-0.5 [facility] Comment on above: Performed By: #### 2 761227, 4029792, 90606937, 0886366, 88442078, 3379286, 06732623, 75262459 ####[place] [address] [place] [address] Eosinophils/100 WBC (Bld) 0.6 % Normal 0.0-8.0 [facility] Comment on above: Performed By: #### 2 011197, 5500298, 42822172, 1447808, 37492693, 1243103, 76749125, 19402564 ####[address] [address] Erythrocyte distribution width (RBC) [Ratio] 20.5 % High 10.9-14.2 [facility] Comment on above: Performed By: #### 2 578327, 7836646, 27958452, 4248691, 69825408, 6569010, 82703272, 94800307 ####[address] [address] Hematocrit (Bld) [Volume fraction] 27.0 % Low 37.7-49.0 [facility] Comment on above: Performed By: #### 2 308048, 3704299, 72510858, 0416552, 06734825, 7093932, 17396390, 86035949 ####[address] [address] Hemoglobin (Bld) [Mass/Vol] 8.5 g/dL Low 13.5-17.5 [facility] Comment on above: Performed By: #### 2 353441, 0089309, 32374727, 0555690, 48369656, 2116261, 11917009, 11850392 ####[address] [address] Lymph Absolute 1.3 E9/L Normal 1.0-4.0 [facility] Comment on above: Performed By: #### 2 965425, 5735006, 12480790, 7625131, 95311144, 6709719, 96022594, 86755328 ####[facility] [address] [place] [address] Lymphocytes/100 WBC (Bld) 16.8 % Normal 14.0-50.0 [facility] Comment on above: Performed By: #### 2 842652, 7573879, 51601346, 1106002, 50499269, 7440489, 55495928, 22706283 ####[facility] [address] [place] [address] MCH (RBC) [Entitic mass] 23.1 pg Low 27.0-34.0 [facility] Comment on above: Performed By: #### 2 376791, 6197050, 74240864, 5035138, 91836314, 8881757, 88723766, 68649361 ####[facility] [address] [place] [address] MCHC (RBC) [Mass/Vol] 31.3 g/dL Low 31.4-36.0 [facility] Comment on above: Performed By: #### 2 217940, 7896632, 35067036, 3307258, 29379189, 5749389, 76543264, 15048091 ####[facility] [address] [place] [address] MCV (RBC) [Entitic vol] 73.7 fL Low 80.0-100.0 [facility] Comment on above: Performed By: #### 2 484535, 2740418, 71369762, 2147836, 69895596, 9490705, 35608487, 02659685 ####[facility] [address] [place] [address] Mcpherson Absolute 0.3 E9/L Normal 0.2-1.0 [facility] Comment on above: Performed By: #### 2 894003, 1546785, 45758644, 2241758, 17815427, 1158681, 94097760, 44254990 ####[facility] [address] [place] [address] Monocytes/100 WBC (Bld) 4.1 % Normal 4.0-14.0 [facility] Comment on above: Performed By: #### 2 537125, 8151877, 03883657, 8835422, 43624077, 3959770, 41124729, 63783779 ####[facility] [address] [place] [address] Neutro Absolute 5.9 E9/L Normal 2.0-7.5 [facility] Comment on above: Performed By: #### 2 359651, 6620221, 17797393, 9769099, 84759122, 4235410, 17276501, 18869183 ####[facility] [address] [place] [address] Neutro Auto 78.1 % High 36.0-75.0 [facility] Comment on above: Performed By: #### 2 079328, 8557983, 77268496, 5800046, 28540870, 2919791, 05270955, 43603045 ####[address] [address] Platelet 372.0 E9/L Normal 150.0-500.0 [facility] Comment on above: Performed By: #### 2 081305, 4485974, 67600871, 6143811, 11033939, 2238388, 46604694, 42182440 ####[address] [place] [address] Platelet mean volume (Bld) [Entitic vol] 6.8 fL Normal 6.4-10.8 [facility] Comment on above: Performed By: #### 2 111993, 5616306, 40383237, 7259198, 59334764, 0010134, 04640026, 86858473 ####[facility] [place] [address] RBC 3.7 E12/L Low 4.3-5.9 [facility] Comment on above: Performed By: #### 2 331168, 4301761, 69721481, 9274987, 24254333, 1525853, 99218249, 17007804 ####[facility] [address] [place] [address] WBC 7.6 E9/L Normal 4.0-11.0 [facility] Comment on above: Performed By: #### 2 987157, 7994674, 48537290, 2801712, 37692277, 1530447, 68290951, 57885922 ####[facility] [address] [place] [address] CHEMISTRYOrdered By: SYSTEM SYSTEM on 04-13-2023 Lactic Acid Lvl 1.3 mmol/L Normal 0.5 - 2.2 mmol/L [facility] Albumin [Mass/Vol] 2.5 g/dL Low 3.3 - 5.0 gm/dL [facility] Albumin/Globulin [Mass ratio] 0.6 {ratio} Low 1.1 - 2.2 [facility] Alk Phos 57 [iU]/d Normal 21 - 98 Int._Unit/L [facility] ALT 15 [iU]/d Normal 6 - 46 Int._Unit/L [facility] Anion gap [Moles/Vol] 11 mmol/L Normal 6 - 16 mEq/L R emisol Chem AST 13 [iU]/d Normal 5 - 43 Int._Unit/L [facility] Bili Total 0.6 mg/dL Normal 0.0 - 1.1 mg/dL [facility] Calcium [Mass/Vol] 11.4 mg/dL High 8.9 - 11. 1 mg/dL [facility] Chloride [Moles/Vol] 103 mmol/L Normal 101 - 1 11 mmol/L [facility] CO2 [Moles/Vol] 23 mmol/L Normal 21 - 31 mmol/L [facility] Creatinine [Mass/Vol] 0.6 mg/dL Normal 0.5 - 1.3 mg/dL [facility] eGFR 106 mL/min/1.73 m2 Normal >=59mL/mi n/1 .73 m2 [facility] Globulin (S) [Mass/Vol] 4.1 g/dL High 1.4 - 4.0 gm/dL [facility] Glucose [Mass/Vol] 94 mg/dL Normal 55 - 199 mg/dL [facility] Lactic Acid Lvl 1.7 mmol/L Normal 0.5 - 2.2 mmol/L [facility] Potassium [Moles/Vol] 4.6 mmol/L Normal 3.5 - 5.3 mmol/L [facility] Protein [Mass/Vol] 6.6 g/dL Normal 6.0 - 7.8 gm/dL [facility] Sodium [Moles/Vol] 132 mmol/L Low 135 - 145 mmol/L [facility] Troponin 14.30 pg/mL Low 15.90 - 38.40 pg/mL [facility] Comment on above: Interpretive Data: T he 95% CI (Confidence Interval) PPV (Positive Predictive Value) for myocardial infarction in females is 38 pg/mL, in males 51 pg/mL. The results should be used in conjunction with clinical conditions of myocardial infarction. (Access High Sensitivity Troponin I Instructions For Use, Yasmin Kenilworth, October 2017) Urea nitrogen [Mass/Vol] 16 mg/dL Normal 5 - 21 mg/dL [facility] Urea nitrogen/Creatinine [Mass ratio] 27 mg/mg High 10 - 20 [facility] CHEMISTRYOrdered By: Yaneli Mena on 04-13-2023 Natriuretic peptide B (Bld) [Mass/Vol] 270 pg/mL High 5 - 80 pg/mL [facility] HemeManSS CK [Catalytic activity/Vol]o n 04-13-2023 Interpretation and review of laboratory results Normal [facility] CMPon 04-13-2023 Albumin [Mass/Vol] 2.5 g/dL Low 3.3-5.0 [facility] Comment on above: Performed By: #### 2 004360, 0868860, 57543137, 8940517, 99620669, 0307295, 95867115, 53672458 ####[facility] [place] [address] Albumin/Globulin [Mass ratio] 0.6 {ratio} Low 1.1-2.2 [facility] Comment on above: Performed By: #### 2 771081, 8116983, 70112334, 5432078, 03003829, 5905196, 03595509, 99318448 ####[facility] [address] [place] [address] Alk Phos 57 Int._Unit/L Normal 21-98 [facility] Comment on above: Performed By: #### 2 659684, 6434168, 78685844, 0440267, 82365117, 1768642, 20262141, 84889826 ####[address] [place] [address] ALT 15 Int._Unit/L Normal 6-46 [facility] Comment on above: Performed By: #### 2 580143, 5698310, 68833192, 3012610, 49907644, 2805832, 47056754, 06798251 ####[address] [place] [address] Anion gap [Moles/Vol] 11 mmol/L Normal 6-16 [facility] Comment on above: Performed By: #### 2 369064, 6083092, 64393522, 3237260, 62681705, 2441243, 17370912, 51351626 ####[address] [place] [address] AST 13 Int._Unit/L Normal 5-43 [facility] Comment on above: Performed By: #### 2 575558, 4307324, 96399658, 9511030, 56694177, 9043205, 41892774, 41890559 ####[address] [place] [address] Bili Total 0.6 mg/dL Normal 0.0-1.1 [facility] Comment on above: Performed By: #### 2 955764, 8990639, 24519514, 5796524, 68686128, 9565158, 52241508, 00391661 ####[facility] [address] [place] [address] BUN/Creat Ratio 27 No Units High 10-20 [facility] Comment on above: Performed By: #### 2 663450, 6316234, 80082737, 4470347, 17426112, 5785082, 66324295, 73728495 ####[facility] [address] [place] [address] Calcium [Mass/Vol] 11.4 mg/dL High 8.9-11.1 [facility] Comment on above: Performed By: #### 2 202048, 1184057, 03244966, 5983842, 05539300, 8214070, 46117965, 30223978 ####[facility] [address] [place] [address] Chloride [Moles/Vol] 103 mmol/L Normal 101-111 [facility] Comment on above: Performed By: #### 2 445991, 6035097, 66504046, 5218652, 33254070, 9582345, 33266406, 13650698 ####[facility] [address] [place] [address] CO2 [Moles/Vol] 23 mmol/L Normal 21-31 [facility] Comment on above: Performed By: #### 2 225804, 3058175, 12523515, 6446510, 05038451, 8046090, 32591480, 01521547 ####[facility] [address] [place] [address] Creatinine [Mass/Vol] 0.6 mg/dL Normal 0.5-1.3 [facility] Comment on above: Performed By: #### 2 880000, 3057546, 06107302, 9710515, 37517804, 6521726, 12711223, 43977429 ####[facility] [address] [place] [address] Globulin (S) [Mass/Vol] 4.1 g/dL High 1.4-4.0 [facility] Comment on above: Performed By: #### 2 861179, 7472370, 93912224, 3648918, 27050352, 4706307, 82478333, 83231721 ####[facility] [address] [place] [address] Glucose [Mass/Vol] 94 mg/dL Normal 55-199 [facility] Comment on above: Performed By: #### 2 536225, 3088920, 93470238, 9947684, 67150589, 8506548, 24833907, 83442069 ####[facility] [address] [place] [address] Potassium [Moles/Vol] 4.6 mmol/L Normal 3.5-5.3 [facility] Comment on above: Performed By: #### 2 581018, 8540033, 57428054, 1531681, 09848502, 4687206, 88109355, 66478840 ####[facility] [address] [place] [address] Protein [Mass/Vol] 6.6 g/dL Normal 6.0-7.8 [facility] Comment on above: Performed By: #### 2 300059, 0097051, 83046376, 1679614, 05152264, 7306520, 38169514, 14530727 ####[facility] [address] [place] [address] Sodium [Moles/Vol] 132 mmol/L Low 135-145 [facility] Comment on above: Performed By: #### 2 527962, 5616593, 13532708, 6369102, 19232526, 0879574, 12786500, 08383187 ####[facility] [address] [place] [address] Urea nitrogen [Mass/Vol] 16 mg/dL Normal 5-21 [facility] Comment on above: Performed By: #### 2 597578, 9248019, 53998558, 9614731, 65858978, 9946975, 68064320, 20361579 ####[facility] [address] [place] [address] COAGULATIONOrdered By: Isi Valerio on 04-13-2023 aPTT Coag (PPP) [Time] 30.1 s Normal 25.1 - 36.5 second(s) [facility] Comment on above: Interpretive Data: P jaylynmeter 15 days - 4 weeks 1 - 5 months 6 - 11 months 1 - 5 years 6 - 10 years 11 - 17 years PTT Mean: 35.4 (27.6-45.6) Mean: 33.5 (24.8-40.7) Mean: 32.4 (25.1-40.7) Mean: 31.6 (24.0-39.2) Mean: 31.6 (26.9-38.7) Mean: 31.0 (24.6-38.4) Pediatric Reference ranges were obtained from a study by Kun Flores et al. prepared from 1437 samples obtained at 7 different centers using the same coagulation reagent and instrumentation as [facility]. Currently there are no coagulation studies available worldwide for children to 14 days, and no normal ranges. Heparin therapeutic range (represented by Anti-Factor Xa activity of 0.2 - 0.4 U/mL) corresponds to PTT of 56.6 - 109.0 sec. INR Coag (PPP) [Relative time] 1.5 {INR} Invalid Interpretation Code [facility] Comment on above: Interpretive Data: I NR results are specifically intended to assess patients stabilized on long-term Anticoagulation therapy suggested INR s Less Intensive Anticoagulation 2.0 3.0 Conventional Range 3.0 4.5 PT Coag (PPP) [Time] 16.7 s High 9.4 - 1 2.5 second(s) [facility] Comment on above: Interpretive Data: 1 5 days - 4 weeks 1 - 5 months 6 -11 months 1 5 years 6 10 years 11 -17 years Mean: 11.2 (9.5 12.6) Mean: 11.0 (9.7 12.8) Mean: 11.0 (9.8 13.0) Mean: 11.3 (9.9 13.4) Mean: 11.7 (10.0 14.6) Mean: 11.8 (10.0 - 14.1) Pediatric Reference ranges were obtained from a study by Kun Flores et al. prepared from 1437 samples obtained at 7 different centers using the same coagulation reagent and instrumentation as [facility]. Currently there are no coagulation studies available worldwide for children to 14 days, and no normal ranges. CT Abdomen/Pelvis w/ Contras ton 04-13-2023 CT Abdomen/Pelvis w/ Contrast Normal [facility] Calcium.ionizedon 04-13-2023 Calcium.ionized (Bld) [Moles/Vol] 1.74 mmol/L High 1.1-1.33 [facility] Comment on above: Result Comment: The performance characteristics of ionized calcium testedin heparinized plasma or serum have been validated [facility] where testing is performed.Testing on heparinized plasma or serum is not approved bythe FDA; however, such approval is not necessary. Performed By: #### 1 994-3 ####SARAH Mcknight ([id number])[facility] ([facility])[address] [place] [address] Calcium.ionized (Bld) [Moles /Vol]on 04-13-2023 Interpretation and review of laboratory results Abnormal [facility] Central Lineon 04-13-2023 [facility] Work Phone: Central LineOrdered By: Royer Perez on 04-13-2023 [facility] Work Phone: Comprehensive metabolic 2000 panelon 04-13-2023 Albumin BCP dye [Mass/Vol] 2.1 g/dL Low 3.4 - 5.0 g/dL [facility] ALP [Catalytic activity/Vol] 52 U/L 33 - 136 U/L [facility] ALT With P-5'-P [Catalytic activity/Vol] 12 U/L 10 - 52 U/L [facility] Anion gap [Moles/Vol] 11 mmol/L 10 - 2 0 mmol/L [facility] AST With P-5'-P [Catalytic activity/Vol] 30 U/L 9 - 39 U/L [facility] Bilirubin [Mass/Vol] 0.7 mg/dL 0.0 - 1 .2 mg/dL [facility] Calcium [Mass/Vol] 10.5 mg/dL 8.6 - 10. 6 mg/dL [facility] Chloride [Moles/Vol] 105 mmol/L 98 - 10 7 mmol/L [facility] CO2 [Moles/Vol] 21 mmol/L 21 - 32 mmol/L [facility] Creatinine [Mass/Vol] 0.55 mg/dL 0.50 - 1.30 mg/dL [facility] eGFR - PINF [facility] Glucose [Mass/Vol] 118 mg/dL High 74 - 99 mg/dL [facility] Interpretation and review of laboratory results Abnormal [facility] Potassium [Moles/Vol] 6.6 mmol/L Critically high 3.5 - 5.3 mmol/L [facility] Protein [Mass/Vol] 5.6 g/dL Low 6.4 - 8.2 g/dL [facility] Sodium [Moles/Vol] 130 mmol/L Low 136 - 145 mmol/L [facility] Urea nitrogen [Mass/Vol] 14 mg/dL 6 - 23 mg/dL [facility] Albumin BCP dye [Mass/Vol] 2.1 g/dL Low 3.4-5.0 [facility] Comment on above: Performed By: #### 2 4323-8 ####SARAH Mcknight ([id number])[facility] ([facility])[address] [place] [address] ALP [Catalytic activity/Vol] 52 U/L Normal 33-136 [facility] Comment on above: Performed By: #### 2 4323-8 ####SARAH Mcknight ([id number])[facility] ([facility])[address] [place] [address] ALT With P-5'-P [Catalytic activity/Vol] 12 U/L Normal 10-52 [facility] Comment on above: Result Comment: Aneta ents treated with Sulfasalazine may generate falsely decreased results for ALT. Performed By: #### 2 4323-8 ####SARAH Mcknight ([id number])[facility] ([facility])[address] [place] [address] Anion gap [Moles/Vol] 11 mmol/L Normal 10-20 [facility] Comment on above: Performed By: #### 2 4323-8 ####SARAH Mcknight ([id number])[facility] ([facility])[address] [place] [address] AST With P-5'-P [Catalytic activity/Vol] 30 U/L Normal 9-39 [facility] Comment on above: Result Comment: MODE RATE HEMOLYSIS DETECTED. The result may be falsely elevated due to hemolysis or other interferents. Clinical correlation is recommended. Repeat testing may be considered. Performed By: #### 2 4323-8 ####SARAH Mcknight ([id number])[facility] ([facility])[address] [place] [address] Bilirubin [Mass/Vol] 0.7 mg/dL Normal 0.0-1.2 [facility] Comment on above: Performed By: #### 2 4323-8 ####SARAH Mcknight ([id number])[facility] ([facility])[address] [place] [address] Calcium [Mass/Vol] 10.5 mg/dL Normal 8.6-10.6 [facility] Comment on above: Performed By: #### 2 4323-8 ####SARAH Mcknight ([id number])[facility] ([facility])[address] [place] [address] Chloride [Moles/Vol] 105 mmol/L Normal 98-107 [facility] Comment on above: Performed By: #### 2 4323-8 ####SARAH OMER L ([id number])[facility] ([facility])[address] [place] [address] CO2 [Moles/Vol] 21 mmol/L Normal 21-32 [facility] Comment on above: Performed By: #### 2 4323-8 ####SARAH OMER L ([id number])[facility] ([facility])[address] [place] [address] Creatinine [Mass/Vol] 0.55 mg/dL Normal 0.50-1.30 [facility] Comment on above: Performed By: #### 2 4323-8 ####SARAH Mcknight ([id number])[facility] ([facility])[address] [place] [address] GFR/1.73 sq M.predicted MDRD (S/P/Bld) [Vol rate/Area] mL/min/{1.73_m2} Normal >60 [facility] Comment on above: Result Comment: Calc ulations of estimated GFR are performed using the 2020 CKD-EPI Study Refit equation without the race variable for the IDMS-Traceable creatinine methods.https://jasn.asnjournals.org/content/early//A SN.7188263814 Performed By: #### 2 4323-8 ####SARAH Mcknight ([id number])[facility] ([facility])[address] [place] [address] Glucose [Mass/Vol] 118 mg/dL High 74-99 [facility] Comment on above: Performed By: #### 2 4323-8 ####SARAH Mcknight ([id number])[facility] ([facility])[address] [place] [address] Potassium [Moles/Vol] 6.6 mmol/L Critically high 3.5-5.3 [facility] Comment on above: Result Comment: MODE RATE HEMOLYSIS DETECTED. The result may be falsely elevated due to hemolysis or other interferents. Clinical correlation is recommended. Repeat testing may be considered. Performed By: #### 2 4323-8 ####SARAH Mcknight ([id number])[facility] ([facility])[address] [place] [address] Protein [Mass/Vol] 5.6 g/dL Low 6.4-8.2 [facility] Comment on above: Performed By: #### 2 4323-8 ####SARAH Mcknight ([id number])[facility] ([facility])[address] [place] [address] Sodium [Moles/Vol] 130 mmol/L Low 136-145 [facility] Comment on above: Performed By: #### 2 4323-8 ####SARAH Mcknight ([id number])[facility] ([facility])[address] [place] [address] Urea nitrogen [Mass/Vol] 14 mg/dL Normal 6-23 [facility] Comment on above: Performed By: #### 2 4323-8 ####SARAH Mcknight ([id number])[facility] ([facility])[address] [place] [address] Consent for Treatmenton 03-17 Consent for Treatment [id number] FF Normal [facility] Creatine Kinaseon 04-13-2023 CK [Catalytic activity/Vol] 14 U/L 0 - 325 U/L [facility] Creatine kinaseon 04-13-2023 CK [Catalytic activity/Vol] 14 U/L Normal 0-325 [facility] Comment on above: Performed By: #### 2 157-6 ####SARAH Mcknight ([id number])[facility] ([facility])[id number] [place] [address] ED Clinical Summaryon 2023 ED Clinical Summary Normal [facility] ED Note-Physicianon 04-13-19 24 ED Note-Physician Normal [facility] Comment on above: Result Comment: Elec tronically Signed By: Miguelito Francisco DO\.rohini\Date and Time Signed: 04/13/23 10:16 EST ED Patient Education Noteon 04-13-2023 ED Patient Education Note Normal [facility] ED Patient Summaryon 024 ED Patient Summary Normal [facility] Fibrinogenon 04-13-2023 Fibrinogen Coag (PPP) [Mass/Vol] 423 mg/dL High 200 - 400 mg/dL [facility] Fibrinogen Coag (PPP) [Mass/Vol] 423 mg/dL High 200-400 [facility] Comment on above: Performed By: #### 3 255-7 ####SARAH Mcknight ([id number])[facility] ([facility])[address] [place] [address] Fungus identifiedon 04-13-19 24 Fungus identified Cx Nom (Unsp spec) Abnormal [facility] Comment on above: Performed By: #### 5 80-1 ####SARAH Mcknight ([id number])[facility] ([facility])[address] [place] [address] Fungus identified Cx Nom (Unsp spec) Abnormal [facility] Comment on above: Performed By: #### 5 80-1 ####SARAH Mcknight ([id number])[facility] ([facility])[id number] [place] [address] Gas panel (BldMV)on 04-13-19 24 Anion gap 4 (BldMV) [Moles/Vol] 6 Low [facility] Base excess Calc (BldMV) [Moles/Vol] -3.0 mmol/L Low -2.0 - 3.0 mmol/L [facility] Calcium.ionized (BldMV) [Moles/Vol] 1.77 mmol/L High 1.10 - 1.33 mmol/L [facility] Chloride [Moles/Vol] 107 mmol/L 98 - 10 7 mmol/L [facility] CO2 (BldMV) [Partial pressure] 38 Low [facility] Glucose [Mass/Vol] 125 mg/dL High 74 - 99 mg/dL [facility] HCO3 (BldMV) [Moles/Vol] 22.0 mmol/L 22.0 - 26.0 mmol/L [facility] Hematocrit Est (Bld) [Volume fraction] 22.0 % Low 41.0 - 52.0 % [facility] Hemoglobin (Bld) [Mass/Vol] 7.3 g/dL Low 13.5 - 17.5 g/dL [facility] Interpretation and review of laboratory results Abnormal [facility] Lactate (BldMV) [Moles/Vol] 1.5 mmol/L 0.4 - 2.0 mmol/L [facility] Oxygen (BldMV) [Partial pressure] 108 High [facility] Oxygen saturation in Mixed venous blood 99 % High 45 - 75 % [facility] Oxyhemoglobin (BldMV) [Mass fraction] 96.3 % High 45.0 - 75.0 % [facility] pH (BldMV) 7.37 pH 7.33 - 7.43 pH [facility] Potassium (BldMV) [Moles/Vol] 4.6 mmol/L 3.5 - 5.3 mmol/L [facility] Sodium (BldMV) [Moles/Vol] 130 mmol/L Low 136 - 145 mmol/L [facility] Anion gap 4 (BldMV) [Moles/Vol] 6 mmo/L Low 10-25 [facility] Comment on above: Performed By: #### 1971-08 ####SARAH Mcknight ([id number])[facility] ([facility])[address] [place] [address] Base excess Calc (BldMV) [Moles/Vol] -3.0 mmol/L Low -2.0-3.0 [facility] Comment on above: Performed By: #### 1971-08 ####SARAH Mcknight ([id number])[facility] ([facility])[address] [place] [address] Calcium.ionized (BldMV) [Moles/Vol] 1.77 mmol/L High 1.10-1.33 [facility] Comment on above: Performed By: #### 5 1971-08 ####SARAH Mcknight ([id number])[facility] ([facility])[address] [place] [address] Chloride [Moles/Vol] 107 mmol/L Normal 98-107 [facility] Comment on above: Performed By: #### 1971-08 ####SARAH Mcknight ([id number])[facility] ([facility])[address] [place] [address] CO2 (BldMV) [Partial pressure] 38 mm Hg Low 41-51 [facility] Comment on above: Performed By: #### 5 1971-08 ####SARAH Mcknight ([id number])[facility] ([facility])[address] [place] [address] Glucose [Mass/Vol] 125 mg/dL High 74-99 [facility] Comment on above: Performed By: #### 5 1971-08 ####SARAH OMER L ([id number])[facility] ([facility])[address] [place] [address] HCO3 (BldMV) [Moles/Vol] 22.0 mmol/L Normal 22.0-26.0 [facility] Comment on above: Performed By: #### 5 1971-08 ####SARAH Mcknight ([id number])[facility] ([facility])[address] [place] [address] Hematocrit Est (Bld) [Volume fraction] 22.0 % Low 41.0-52.0 [facility] Comment on above: Performed By: #### 5 1971-08 ####SARAH OMER L ([id number])[facility] ([facility])[address] [place] [address] Hemoglobin (Bld) [Mass/Vol] 7.3 g/dL Low 13.5-17.5 [facility] Comment on above: Performed By: #### 5 1971-08 ####SARAH OMER L ([id number])[facility] ([facility])[address] [place] [address] Lactate (BldMV) [Moles/Vol] 1.5 mmol/L Normal 0.4-2.0 [facility] Comment on above: Performed By: #### 5 1971-08 ####SARAH OMER L ([id number])[facility] ([facility])[address] [place] [address] Oxygen (BldMV) [Partial pressure] 108 mm Hg High 35-45 [facility] Comment on above: Performed By: #### 5 1971-08 ####SARAH Mcknight ([id number])[facility] ([facility])[address] [place] [address] Oxyhemoglobin (BldMV) [Mass fraction] 96.3 % High 45.0-75.0 [facility] Comment on above: Performed By: #### 5 1971-08 ####SARAH Mcknight ([id number])[facility] ([facility])[address] [place] [address] pH (BldMV) 7.37 pH Normal 7.33-7.43 [facility] Comment on above: Performed By: #### 5 1972-08 ####SARAH Mcknight ([id number])[facility] ([facility])[address] [place] [address] Potassium (BldMV) [Moles/Vol] 4.6 mmol/L Normal 3.5-5.3 [facility] Comment on above: Performed By: #### 5 1971-08 ####SARAH Mcknight ([id number])[facility] ([facility])[address] [place] [place] [address] Sodium (BldMV) [Moles/Vol] 130 mmol/L Low 136-145 [facility] Comment on above: Performed By: #### 5 1972-08 ####SARAH OMER L ([id number])[facility] ([facility])[id number] [place] [address]90 Glucose Test strip manual (B ld) [Mass/Vol]on 04-13-2023 Glucose [Mass/Vol] 137 mg/dL High 74 - 99 mg/dL [facility] Interpretation and review of laboratory results Abnormal [facility] Glucose [Mass/Vol] 137 mg/dL High 74-99 [facility] Comment on above: Performed By: #### 2 ####SARAH OMER L ([id number])[facility] ([facility])[address] [place] [address] 27897 Glucose [Mass/Vol] 139 mg/dL High 74 - 99 mg/dL [facility] Interpretation and review of laboratory results Abnormal [facility] Glucose [Mass/Vol] 139 mg/dL High 74-99 [facility] Comment on above: Performed By: #### 2 341-6 ####SARAH Mcknight ([id number])[facility] ([facility])[address] [place] [address] HEMATOLOGYOrdered By: Yaneli Mena on 04-13-2023 Anisocytosis Ql (Bld) PRESENT Invalid Interpretation Code Remisol Heme Hypochromasia PRESENT Invalid Interpretation Code Remisol Heme Poikilocytosis PRESENT Invalid Interpretation Code Remisol Heme RBC morphology finding Nom (Bld) SEE MORPHOLOGY Invalid Interpretation Code Remisol Heme HEMATOLOGYOrdered By: SYSTEM SYSTEM on 04-13-2023 Basophil Absolute 0.0 E9/L Normal 0.0 - 0.2 E9/L [facility] Heme Basophils/100 WBC (Bld) 0.4 % Normal 0.0 - 2.0 % Remisol Heme Eos Absolute 0.0 E9/L Normal 0.0 - 0.5 E9/L [facility] Heme Eosinophils/100 WBC (Bld) 0.6 % Normal 0.0 - 8.0 % Remisol Heme Erythrocyte distribution width (RBC) [Ratio] 20.5 % High 10.9 - 14.2 % Rem[facility] Heme Hematocrit (Bld) [Volume fraction] 27.0 % Low 37.7 - 49.0 % Remisol Heme Hemoglobin (Bld) [Mass/Vol] 8.5 g/dL Low 13.5 - 17.5 gm/dL [facility] Lymph Absolute 1.3 E9/L Normal 1.0 - 4.0 E9/L [facility]e Lymphocytes/100 WBC (Bld) 16.8 % Normal 14.0 - 50.0 % Remisol Heme MCH (RBC) [Entitic mass] 23.1 pg Low 27.0 - 34.0 pg Remisol Heme MCHC (RBC) [Mass/Vol] 31.3 g/dL Low 31.4 - 36.0 gm/dL Remisol Heme MCV (RBC) [Entitic vol] 73.7 fL Low 80.0 - 100.0 fL Remisol Heme Mcpherson Absolute 0.3 E9/L Normal 0.2 - 1.0 E9/L [facility] Heme Monocytes/100 WBC (Bld) 4.1 % Normal 4.0 - 14.0 % Rem[facility] Heme Neutro Absolute 5.9 E9/L Normal 2.0 - 7.5 E9/L [facility] Heme Neutro Auto 78.1 % High 36.0 - 75.0 % Rem[facility] Heme Platelet 372.0 E9/L Normal 150.0 - 500.0 E9/L Rem[facility] Heme Platelet mean volume (Bld) [Entitic vol] 6.8 fL Normal 6.4 - 10.8 fL Remisol Heme RBC 3.7 E12/L Low 4.3 - 5.9 E12/L [facility] Heme WBC 7.6 E9/L Normal 4.0 - 11.0 E9/L Remisol Heme HEMATOLOGYOrdered By: Derek Feldman on 04-13-2023 Path Review Anemia with anisocytosis, microcytes, ovalocytes and mild polychromasia. Clinical correlation and iron studies are recommended to determine etiology as clinically indicated.D50.9CPT 82430 Invalid Interpretation Code [facility] HemeManSS Hepatic function 2000 panelo n 04-13-2023 Albumin BCP dye [Mass/Vol] 2.2 g/dL Low 3.4 - 5.0 g/dL [facility] ALP [Catalytic activity/Vol] 54 U/L 33 - 136 U/L [facility] ALT With P-5'-P [Catalytic activity/Vol] 12 U/L 10 - 52 U/L [facility] AST With P-5'-P [Catalytic activity/Vol] 12 U/L 9 - 39 U/L [facility] Bilirubin [Mass/Vol] 0.5 mg/dL 0.0 - 1 .2 mg/dL [facility] Bilirubin.direct [Mass/Vol] 0.2 mg/dL 0.0 - 0.3 mg/dL [facility] Interpretation and review of laboratory results Abnormal [facility] Protein [Mass/Vol] 5.3 g/dL Low 6.4 - 8.2 g/dL [facility] Albumin BCP dye [Mass/Vol] 2.2 g/dL Low 3.4-5.0 [facility] Comment on above: Performed By: #### 2 4325-3 ####SARAH Mcknight ([id number])[facility] ([facility])[address] [place] [address] ALP [Catalytic activity/Vol] 54 U/L Normal 33-136 [facility] Comment on above: Performed By: #### 2 4325-3 ####SARAH Mcknight ([id number])[facility] ([facility])[address] [place] [address] ALT With P-5'-P [Catalytic activity/Vol] 12 U/L Normal 10-52 [facility] Comment on above: Result Comment: Aneta ents treated with Sulfasalazine may generate falsely decreased results for ALT. Performed By: #### 2 4325-3 ####SARAH Mcknight ([id number])[facility] ([facility])[address] [place] [address] AST With P-5'-P [Catalytic activity/Vol] 12 U/L Normal 9-39 [facility] Comment on above: Performed By: #### 2 4325-3 ####SARAH Mcknight ([id number])[facility] ([facility])[address] [place] [address] Bilirubin [Mass/Vol] 0.5 mg/dL Normal 0.0-1.2 [facility] Comment on above: Performed By: #### 2 4325-3 ####SARAH Mcknight ([id number])[facility] ([facility])[address] [place] [address] Bilirubin.direct [Mass/Vol] 0.2 mg/dL Normal 0.0-0.3 [facility] Comment on above: Performed By: #### 2 4325-3 ####SARAH Mcknight ([id number])[facility] ([facility])[address] [place] [address] Protein [Mass/Vol] 5.3 g/dL Low 6.4-8.2 [facility] Comment on above: Performed By: #### 2 5-3 ####SARAH Mcknight ([id number])[facility] ([facility])[address] [place] [address] Influenza A&B Agon Influenzae A Ag Negative Normal Negative [facility] Comment on above: Performed By: #### 2 [id number], [id number] ####[facility] [address] [place] [address] Influenzae B Ag Negative Normal Negative [facility] Comment on above: Result Comment: Test sensitivity and specificity vary for age group, specimen type, antigen types, and prevalence of disease. Test results must be evaluated in conjunction with other clinical data available to the physician. Individuals who received nasally administered Influenza A vaccine may have positive test results up to 3 days after vaccination. Performed By: #### 2 [id number], [id number] ####[facility] [address] [place] [address] Lactic Acidon 04-13-2023 Lactic Acid Lvl 1.3 mmol/L Normal 0.5-2.2 [facility] Comment on above: Performed By: #### 2 269447 ####[facility] [address] [place] [address] Lactic Acid Lvl 1.7 mmol/L Normal 0.5-2.2 [facility] Comment on above: Performed By: #### 2 342718, 4658299, [id number], 4106250, 39510289, 6792977, 59747609, [id number] ####[address] [address] MICRO OTHER TESTSOrdered By: Aimee Devine on 04-13-2023 Influenzae A Ag Negative (04/13/23 5:26 AM) Normal Negative [facility] Man Sero Influenzae B Ag Negative 1 (04/13/23 5:26 AM) Normal Negative [facility] Comment on above: Interpretive Data: T est sensitivity and specificity vary for age group, specimen type, antigen types, and prevalence of disease. Test results must be evaluated in conjunction with other clinical data available to the physician. Individuals who received nasally administered Influenza A vaccine may have positive test results up to 3 days after vaccination. Rapid COV Int NEG Ctl Pass (04/13/23 5:26 AM) Normal [facility] Man Sero Rapid COV Int POS Ctl Pass (04/13/23 5:26 AM) Normal [facility] Man Sero SARS-CoV+SARS-CoV-2 (COVID-19) Ag IA.rapid Ql (Resp) Not Detected 6 (04/13/23 5:26 AM) Normal Not Detected [facility] Comment on above: Interpretive Data: Ngoc julio QThru Veritor System for Rapid Detection of SARS-CoV-2 is a chromatographic digital immunoassay intended for the direct and qualitative detection of SARS-CoV-2 nucleocapsid antigens in nasal swabs from individuals who are suspected of COVID-19 by their healthcare provider within the first five days of the onset of symptoms. Negative results should be treated as presumptive, do not rule out SARS-CoV-2 infection and should not be used as the sole basis for treatment or patient management decisions, including infection control decisions. Negative results should be considered in the context of a patient s recent exposures, history and the presence of clinical signs and symptoms consistent with COVID-19, and confirmed with a molecular assay, if necessary, for patient management. For in vitro diagnostic use. In the [place], only for use under an Emergency Use Authorization. In the [place], this test has not been FDA cleared or approved; this test has been authorized by FDA under an EUA for use by authorized laboratories; use by laboratories certified under the CLIA, 42 U.S.C. 263a, that meet requirements to perform moderate, high, or waived complexity tests and at the Point of Care (POC), i.e., in patient care settings operating under a CLIA Certificate of Waiver, Certificate of Compliance, or Certificate of Accreditation. This test has been authorized only for the detection of proteins from SARS-CoV-2, not for any other viruses or pathogens; and, in the [place], this test is only authorized for the duration of the declaration that circumstances exist justifying the authorization of emergency use of in vitro diagnostics for detection and/or diagnosis of the virus that causes COVID-19 under Section 564(b)(1) of the Act, 21 U.S.C. 360bbb-3(b)(1), unless the authorization is terminated or revoked sooner. Magnesiumon 04-13-2023 Magnesium [Mass/Vol] 1.69 mg/dL 1.60 - 2.40 mg/dL [facility] Magnesium [Mass/Vol] 1.69 mg/dL Normal 1.60-2.40 [facility] Comment on above: Performed By: #### 1 9123-9 ####SARAH Mcknight ([id number])[facility] ([facility])[id number] [place] [address] Monitor Recordon 04-13-2023 Monitor Record [id number] [id number] FF Normal [facility] No Panel Informationon 04-13 [facility] Interpretation and review of laboratory results Normal [facility] Interpretation and review of laboratory results Abnormal [facility] PT & PTTon 04-13-2023 aPTT Coag (PPP) [Time] 30.1 second(s) Normal 25.1-36.5 [facility] Comment on above: Result Comment: Para meter 15 days - 4 weeks 1 - 5 months 6 - 11 months 1 - 5 years 6 - 10 years 11 - 17 years PTT Mean: 35.4 (27.6-45.6) Mean: 33.5 (24.8-40.7) Mean: 32.4 (25.1-40.7) Mean: 31.6 (24.0-39.2) Mean: 31.6 (26.9-38.7) Mean: 31.0 (24.6-38.4) Pediatric Reference ranges were obtained from a study by Kun Flores et al. prepared from 1437 samples obtained at 7 different centers using the same coagulation reagent and instrumentation as [facility]. Currently there are no coagulation studies available worldwide for children to 14 days, and no normal ranges. Heparin therapeutic range (represented by Anti-Factor Xa activity of 0.2 - 0.4 U/mL) corresponds to PTT of 56.6 - 109.0 sec. Performed By: #### 2 240161, 3635189, 52157940, 9949461, 14666594, 3449407, 02879360, 50164948 ####[facility] [address] [place] [address] INR Coag (PPP) [Relative time] 1.5 {INR} Invalid Interpretation Code [facility] Comment on above: Result Comment: INR results are specifically intended to assess patients stabilized on long-term Anticoagulation therapy suggested INR?s ?Less Intensive Anticoagulation? 2.0 ? 3.0Conventional Range 3.0 ? 4.5 Performed By: #### 2 387880, 5549974, 13265352, 7680923, 57671956, 0327817, 21479098, 34996557 ####[facility] [address] [place] [address] PT Coag (PPP) [Time] 16.7 second(s) High 9.4-12.5 [facility] Comment on above: Result Comment: 15 d ays - 4 weeks 1 - 5 months 6 -11 months 1 ? 5 years 6 ? 10 years 11 -17 years Mean: 11.2 (9.5 ? 12.6) Mean: 11.0 (9.7 ? 12.8) Mean: 11.0 (9.8 ? 13.0) Mean: 11.3 (9.9 ? 13.4) Mean: 11.7 (10.0 ? 14.6) Mean: 11.8 (10.0 - 14.1) Pediatric Reference ranges were obtained from a study by Kun Flores et al. prepared from 1437 samples obtained at 7 different centers using the same coagulation reagent and instrumentation as [facility]. Currently there are no coagulation studies available worldwide for children to 14 days, and no normal ranges. Performed By: #### 2 988281, 8320651, 82769525, 5991625, 22792411, 1291628, 14068533, 52903615 ####[facility] [address] [place] [address] PT and aPTT panel Coag (PPP) on 04-13-2023 aPTT Coag (PPP) [Time] 27 s [facility] INR Coag (PPP) [Relative time] 1.5 {INR} High 0.9 - 1.1 [facility] PT Coag (PPP) [Time] 17.1 s [facility] aPTT Coag (PPP) [Time] 27 s Normal 27-38 [facility] Comment on above: Order Comment: The A PTT is no longer used for monitoring Unfractionated Heparin Therapy. For monitoring Heparin Therapy, use the Heparin Assay. Performed By: #### 3 4529-8 ####SARAH Mcknight ([id number])[facility] ([facility])[id number] [place] [address] INR Coag (PPP) [Relative time] 1.5 High 0.9-1.1 [facility] Comment on above: Order Comment: The A PTT is no longer used for monitoring Unfractionated Heparin Therapy. For monitoring Heparin Therapy, use the Heparin Assay. Performed By: #### 3 4529-8 ####SARAH Mcknight ([id number])[facility] ([facility])[address] [place] [address] PT Coag (PPP) [Time] 17.1 s High 9.8-12.8 [facility] Comment on above: Order Comment: The A PTT is no longer used for monitoring Unfractionated Heparin Therapy. For monitoring Heparin Therapy, use the Heparin Assay. Performed By: #### 3 4529-8 ####SARAH Mcknight ([id number])[facility] ([facility])[address] [place] [address] Path. Reviewon 04-13-2023 Path Review Anemia with anisocytosis, microcytes, ovalocytes and mild polychromasia. Clinical correlation and iron studies are recommended to determine etiology as clinically indicated. Invalid Interpretation Code [facility] Comment on above: Order Comment: Order added by Discern Expert Performed By: #### 2 301641, 2880603, 41999060, 0341724, 21430549, 4657405, 98948785, 39130821 ####[facility] [address] [place] [address] Phosphateon 04-13-2023 Phosphate [Mass/Vol] 2.9 mg/dL Normal 2.5-4.9 [facility] Comment on above: Result Comment: The performance characteristics of phosphorus testing in heparinized plasma have been validated by the individual laboratory site where testing is performed. Testing on heparinized plasma is not approved by the FDA; however, such approval is not necessary. Performed By: #### 2 777-1 ####SARAH Mcknight ([id number])[facility] ([facility])[address] [place] [address] Phosphoruson 04-13-2023 Phosphate [Mass/Vol] 2.9 mg/dL 2.5 - 4 .9 mg/dL [facility] Pre-Arrival Noteon 4 Pre-Arrival Note Normal [facility] Rapid COVID Antigen ([facility])on 04-13-2023 Rapid COV Int NEG Ctl Pass Normal [facility] Comment on above: Performed By: #### 2 [id number], [id number] ####[facility] [address] [place] [address] Rapid COV Int POS Ctl Pass Normal [facility] Comment on above: Performed By: #### 2 [id number], 97986365 ####[facility] [address] [place] [address] SARS-CoV+SARS-CoV-2 (COVID-19) Ag IA.rapid Ql (Resp) Not detected Normal Not Detected [facility] Comment on above: Result Comment: The [employer] (PT[employer])itor? System for Rapid Detection of SARS-CoV-2 is a chromatographic digital immunoassay intended for the direct and qualitative detection of SARS-CoV-2 nucleocapsid antigens in nasal swabs from individuals who are suspected of COVID-19 by their healthcare provider within the first five days of the onset of symptoms. Negative results should be treated as presumptive, do not rule out SARS-CoV-2 infection and should not be used as the sole basis for treatment or patient management decisions, including infection control decisions. Negative results should be considered in the context of a patient?s recent exposures, history and the presence of clinical signs and symptoms consistent with COVID-19, and confirmed with a molecular assay, if necessary, for patient management. For in vitro diagnostic use. In the [place], only for use under an Emergency Use Authorization. In the [place], this test has not been FDA cleared or approved; this test has been authorized by FDA under an EUA for use by authorized laboratories; use by laboratories certified under the CLIA, 42 U.S.C. ?263a, that meet requirements to perform moderate, high, or waived complexity tests and at the Point of Care (POC), i.e., in patient care settings operating under a CLIA Certificate of Waiver, Certificate of Compliance, or Certificate of Accreditation.This test has been authorized only for the detection of proteins from SARS-CoV-2, not for any other viruses or pathogens; and, in the [place], this test is only authorized for the duration of the declaration that circumstances exist justifying the authorization of emergency use of in vitro diagnostics for detection and/or diagnosis of the virus that causes COVID-19 under Section 564(b)(1) of the Act, 21 U.S.C. ? 360bbb-3(b)(1), unless the authorization is terminated or revoked sooner. 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 The results should be used in conjunction with clinical conditions of myocardial infarction.(Access High Sensitivity Troponin I Instructions For Use, Yasmin Kamryn, October 2017) Performed By: #### 2 919986, 2433841, 13507018, 5601915, 81822976, 6924172, 59571632, 47996799 ####[facility] [address] [place] [address] UA With Cult Reflexon 2023 Bacteria LM Ql (Urine sed) 3+ /HPF Abnormal Trace [facility] Comment on above: Order Comment: Urina ry Catheter Insertion triggered Urinalysis With Culture Reflex order by discern. Performed By: #### 2 021726, 48936473 ####[facility] [address] [place] [address] Bilirubin Ql (U) Negative Normal Negative [facility] Comment on above: Order Comment: Urina ry Catheter Insertion triggered Urinalysis With Culture Reflex order by discern. Performed By: #### 2 444954, 97962777 ####[address] [address] Clarity (U) CLOUDY Abnormal Clear [facility] Comment on above: Order Comment: Urina ry Catheter Insertion triggered Urinalysis With Culture Reflex order by discern. Performed By: #### 2 864289, [id number] ####[address] [address] Color (U) YELLOW Normal Yellow [facility] Comment on above: Order Comment: Urina ry Catheter Insertion triggered Urinalysis With Culture Reflex order by discern. Performed By: #### 2 559449, 28502352 ####[address] [address] Epithelial cells.squamous LM.HPF (Urine sed) [#/Area] 0-2 Normal 0-2 [facility] Comment on above: Order Comment: Urina ry Catheter Insertion triggered Urinalysis With Culture Reflex order by discern. Performed By: #### 2 232085, 93279974 ####[facility] [address] [place] [address] Glucose Test strip (U) [Mass/Vol] 3+ Abnormal Negative [facility] Comment on above: Order Comment: Urina ry Catheter Insertion triggered Urinalysis With Culture Reflex order by discern. Performed By: #### 2 472685, [id number] ####[facility] [address] [place] [address] Hemoglobin Ql (U) 3+ Abnormal Negative [facility] Comment on above: Order Comment: Urina ry Catheter Insertion triggered Urinalysis With Culture Reflex order by discern. Performed By: #### 2 549314, 21241815 ####[address] [address] Ketones (U) [Mass/Vol] Negative Normal Negative [facility] Comment on above: Order Comment: Urina ry Catheter Insertion triggered Urinalysis With Culture Reflex order by discern. Performed By: #### 2 057030, [id number] ####[address] [address] [place].plasma/[place] .RBC (Bld) [Mass ratio] >75 Abnormal 0-3 [facility] Comment on above: Order Comment: Urina ry Catheter Insertion triggered Urinalysis With Culture Reflex order by discern. Performed By: #### 2 469180, [id number] ####[address] [address] Mucus Ql (Urine sed) TRACE Normal [facility] Comment on above: Order Comment: Urina ry Catheter Insertion triggered Urinalysis With Culture Reflex order by discern. Performed By: #### 2 084147, 83777671 ####[place] [address]257 Nitrite Ql (U) Negative Normal Negative [facility] Comment on above: Order Comment: Urina ry Catheter Insertion triggered Urinalysis With Culture Reflex order by discern. Performed By: #### 2 345939, 21951912 ####[address] [address] pH (U) 7.0 [pH] Invalid Interpretation Code 5.0-9.0 [facility] Comment on above: Order Comment: Urina ry Catheter Insertion triggered Urinalysis With Culture Reflex order by discern. Performed By: #### 2 439182, [id number] ####[address] [address] Protein (U) [Mass/Vol] 1+ Abnormal Negative [facility] Comment on above: Order Comment: Urina ry Catheter Insertion triggered Urinalysis With Culture Reflex order by discern. Performed By: #### 2 046624, [id number] ####[place] [address] Specific gravity (U) [Rel density] 1.015 Invalid Interpretation Code 1.005-1.030 [facility] Comment on above: Order Comment: Urina ry Catheter Insertion triggered Urinalysis With Culture Reflex order by discern. Performed By: #### 2 547354, [id number] ####[place] [address] Type of Urine collection method Bowers Normal [facility] Comment on above: Order Comment: Urina ry Catheter Insertion triggered Urinalysis With Culture Reflex order by discern. Performed By: #### 2 473059, [id number] ####[place] [address] Urobilinogen Qn (U) 0.2 {Dejah'U}/dL Normal 0.0-1.0 [facility] Comment on above: Order Comment: Urina ry Catheter Insertion triggered Urinalysis With Culture Reflex order by discern. Performed By: #### 2 156518, 44676408 ####[place] [address] WBC Auto Ql (U) 2+ Abnormal Negative [facility] Comment on above: Order Comment: Urina ry Catheter Insertion triggered Urinalysis With Culture Reflex order by discern. Performed By: #### 2 603707, [id number] ####[place] [address] WBC LM.HPF (Urine sed) [#/Area] /[HPF] Abnormal 0-5 [facility] Comment on above: Order Comment: Urina ry Catheter Insertion triggered Urinalysis With Culture Reflex order by discern. Performed By: #### 2 953361, [id number] ####[place] [address] URINALYSISOrdered By: Nirali Valerio on 04-13-2023 Bacteria LM Ql (Urine sed) 3+ /HPF Invalid Interpretation Code Trace/HPF [facility] UA Auto SS Bilirubin Ql (U) Negative (04/13/23 6:54 AM) Normal Negative [facility] UA Auto SS Clarity (U) Cloudy *ABN* (04/13/23 6:54 AM) Invalid Interpretation Code Clear [facility] UA Auto SS Color (U) Yellow (04/13/23 6:54 AM) Normal Yellow [facility] UA Auto SS Epithelial cells.squamous LM.HPF (Urine sed) [#/Area] 0-2 /HPF Normal 0-2/HPF [facility] UA Aut o SS Glucose Test strip (U) [Mass/Vol] 3+ *ABN* (04/13/23 6:54 AM) Invalid Interpretation Code Negative [facility] UA Auto SS Hemoglobin Ql (U) 3+ *ABN* (04/13/23 6:54 AM) Invalid Interpretation Code Negative [facility] UA Auto SS Ketones (U) [Mass/Vol] Negative (04/13/23 6:54 AM) Normal Negative [facility] UA Auto SS [place].plasma/[place] .RBC (Bld) [Mass ratio] >75 /HPF Invalid Interpretation Code 0-3/HPF [facility] UA Auto SS Mucus Ql (Urine sed) Trace (04/13/23 6:54 AM) Normal [facility] UA Auto SS Nitrite Ql (U) Negative (04/13/23 6:54 AM) Normal Negative [facility] UA Auto SS pH (U) 7.0 *NA* (04/13/23 6:54 AM) Invalid Interpretation Code 5.0 - 9.0 [facility] UA Auto SS Protein (U) [Mass/Vol] 1+ *ABN* (04/13/23 6:54 AM) Invalid Interpretation Code Negative [facility] UA Auto SS Specific gravity (U) [Rel density] 1.015 *NA* (04/13/23 6:54 AM) Invalid Interpretation Code 1.005 - 1.030 [facility] UA Auto SS UA Spec Desc Bowers (04/13/23 6:54 AM) Normal [facility] UA Auto SS Urobilinogen Qn (U) 0.6552826 {Dejah'U}/dL Normal 0.0 - 1.0 EU/dL [facility] UA Auto SS WBC Auto Ql (U) 2+ *ABN* (04/13/23 6:54 AM) Invalid Interpretation Code Negative [facility] UA Auto SS WBC LM.HPF (Urine sed) [#/Area] /[HPF] Invalid Interpretation Code 0-5/HPF [facility] UA Auto SS US Scrotum (Contents)on 03-17 US Scrotum (Contents) Normal [facility] Urinalysis complete W Reflex Culture panel (U)Ordered By: Carmelita Barba on 04-13-2023 Appearance (U) Hazy Abnormal Clear [facility] Bilirubin (U) [Mass/Vol] Negative NEGATIVE [facility] Color (U) Yellow Straw, Yellow [facility] Glucose Auto test strip (U) [Mass/Vol] >=500 (3+) Abnormal NEGATIVE mg/dL [facility] Interpretation and review of laboratory results Abnormal [facility] Ketones (U) [Mass/Vol] 5 (TRACE) Abnormal NEGAT EVY mg/dL [facility] Leukocyte esterase Auto test strip Ql (U) MODERATE (2+) Abnormal NEGATIVE [facility] Nitrite Auto test strip Ql (U) Negative NEGATIVE [facility] pH (U) 7.0 [pH] 5.0, 5.5, 6.0, 6.5, 7.0, 7.5, 8.0 [facility] Protein (U) [Mass/Vol] 100 (2+) Abnormal NEGAT EVY mg/dL [facility] RBC (U) [#/Vol] MODERATE (2+) Abnormal NEGATIVE [facility] Specific gravity (U) [Rel density] 1.029 1.005 - 1.035 [facility] Urobilinogen (U) [Mass/Vol] mg/dL NINF - 2.0 mg/dL [facility] Urinalysis complete W Reflex Culture panel (U)on 04-13-2023 Appearance (U) Hazy Normal Clear [facility] Comment on above: Performed By: #### 5 8077-9 ####SARAH Mcknight ([id number])[facility] ([facility])[address] [place] [address] Bilirubin (U) [Mass/Vol] Negative Normal NEGATIVE [facility] Comment on above: Performed By: #### 5 8077-9 ####SARAH Mcknight ([id number])[facility] ([facility])[address] [place] [address] Color (U) Yellow Normal Straw, Yellow [facility] Comment on above: Performed By: #### 5 8077-9 ####SARAH Mcknight ([id number])[facility] ([facility])[address] [place] [address] Glucose Auto test strip (U) [Mass/Vol] >=500 (3+) Abnormal NEGATIVE [facility] Comment on above: Performed By: #### 5 8077-9 ####SARAH Mcknight ([id number])[facility] ([facility])[address] [place] [address] Ketones (U) [Mass/Vol] 5 (TRACE) Abnormal NEGATIVE [facility] Comment on above: Performed By: #### 5 8077-9 ####SARAH Mcknight ([id number])[facility] ([facility])[address] [place] [address] Leukocyte esterase Auto test strip Ql (U) MODERATE (2+) Abnormal NEGATIVE [facility] Comment on above: Performed By: #### 5 8077-9 ####SARAH Mcknight ([id number])[facility] ([facility])[address] [place] [address] Nitrite Auto test strip Ql (U) Negative Normal NEGATIVE [facility] Comment on above: Performed By: #### 5 8077-9 ####SARAH Mcknight ([id number])[facility] ([facility])[address] [place] [address] pH (U) 7.0 [pH] Normal 5.0, 5.5, 6.0, 6.5, 7.0, 7.5, 8.0 [facility] Comment on above: Performed By: #### 5 8077-9 ####SARAH Mcknight ([id number])[facility] ([facility])[address] [place] [address] Protein (U) [Mass/Vol] 100 (2+) Normal NEGATIVE [facility] Comment on above: Performed By: #### 5 8077-9 ####SARAH Mcknight ([id number])[facility] ([facility])[address] [place] [address] RBC (U) [#/Vol] MODERATE (2+) Abnormal NEGATIVE [facility] Comment on above: Performed By: #### 5 8077-9 ####SARAH Mcknight ([id number])[facility] ([facility])[address] [place] [address] Specific gravity (U) [Rel density] 1.029 Normal 1.005-1.035 [facility] Comment on above: Performed By: #### 5 8077-9 ####SARAH Mcknight ([id number])[facility] ([facility])[address] [place] [address] Urobilinogen (U) [Mass/Vol] mg/dL Normal <2.0 [facility] Comment on above: Performed By: #### 5 8077-9 ####SARAH Mcknight ([id number])[facility] ([facility])[address] [place] [address] Urinalysis microscopic panel Auto Ql (U)on 04-13-2023 Bacteria Auto (Urine sed) [#/Area] 1+ Abnormal NONE SEEN /HPF [facility] Interpretation and review of laboratory results Abnormal [facility] RBC Auto (Urine sed) [#/Area] >20 Abnormal NONE, 1-2, 3-5 /HPF [facility] WBC Auto (Urine sed) [#/Area] >50 Abnormal 1-5, NONE /HPF [facility] Bacteria Auto (Urine sed) [#/Area] 1+ /HPF Abnormal NONE SEEN [facility] Comment on above: Performed By: #### 5 3315-8 ####SARAH Mcknight ([id number])[facility] ([facility])[address] [place] [address] RBC Auto (Urine sed) [#/Area] >20 Abnormal NONE, 1-2, 3-5 [facility] Comment on above: Performed By: #### 5 3315-8 ####SARAH Mcknight ([id number])[facility] ([facility])[address] [place] [address] WBC Auto (Urine sed) [#/Area] >50 Abnormal 1-5, NONE [facility] Comment on above: Performed By: #### 5 3315-8 ####SARAH Mcknight ([id number])[facility] ([facility])[address] [place] [address] XR CHEST 1 VIEWon 04-13-2023 XR CHEST 1 VIEW Normal [facility] XR Chest Single Viewon 04-13 XR Chest Single View Normal [facility] XR Chest Single viewon 04-13 [facility] MMODAL UH MMODAL [facility] Work Phone: Radiology Study observation (narrative) [facility] Work Phone: XR Chest Single viewOrdered By: Bharath Ramirez on 04-13-2023 [facility] Work Phone: eGFRon 04-13-2023 eGFR 106 mL/min/1.73 m2 Normal >=59 [facility] Comment on above: Order Comment: Order added by Discern Expert. Performed By: #### 2 613350, 4644622, 49530261, 9107681, 69907461, 4563246, 45178430, 99444016 ####[facility] [address] [place] [address] Coding Queryon 03-30-2023 Coding Query Normal [facility] Coding Query Normal [facility] Advance Beneficiary Notifica tionson 03-19-2023 Advance Beneficiary Notifications [id number] F Normal [facility] General Message Officeon General Message Office Normal Fi [facility] Transfer Documentson 024 Transfer Documents [id number] F Normal [facility] BMPon 03-18-2023 Anion gap [Moles/Vol] 11 mmol/L Normal 6-16 [facility] Comment on above: Performed By: #### 1 5799886, 6584659 ####[facility] [address] [place] [address] BUN/Creat Ratio 32 No Units High 10-20 [facility] Comment on above: Performed By: #### 1 6446846, 0321243 ####[facility] [address] [place] [address] Calcium [Mass/Vol] 11.0 mg/dL Normal 8.9-11.1 [facility] Comment on above: Performed By: #### 1 8042100, 0406901 ####[facility] [address] [place] [address] Chloride [Moles/Vol] 105 mmol/L Normal 101-111 [facility] Comment on above: Performed By: #### 1 9626160, 7414592 ####[facility] [address] [facility] [place] [address] CO2 [Moles/Vol] 18 mmol/L Low 21-31 [facility] Comment on above: Performed By: #### 1 6999087, 5130628 ####[facility] [address] [place] [address] Creatinine [Mass/Vol] 0.6 mg/dL Normal 0.5-1.3 [facility] Comment on above: Performed By: #### 1 0808367, 6376243 ####[facility] [address] [place] [address] Glucose [Mass/Vol] 114 mg/dL Normal 55-199 [facility] Comment on above: Performed By: #### 1 9002170, 5129696 ####[facility] [address] [place] [address] Potassium [Moles/Vol] 5.5 mmol/L High 3.5-5.3 [facility] Comment on above: Performed By: #### 1 3090103, 3329628 ####[facility] [address] [place] [address] Sodium [Moles/Vol] 128 mmol/L Low 135-145 [facility] Comment on above: Performed By: #### 1 3852294, 6412478 ####[facility] [address] [place] [address] Urea nitrogen [Mass/Vol] 19 mg/dL Normal 5-21 [facility] Comment on above: Performed By: #### 1 5658748, 5063815 ####[facility] [address] [place] [address] CHEMISTRYOrdered By: SYSTEM SYSTEM on 03-18-2023 Anion gap [Moles/Vol] 11 mmol/L Normal 6 - 16 mEq/L R emisol Chem Calcium [Mass/Vol] 11.0 mg/dL Normal 8.9 - 11. 1 mg/dL [facility] Chloride [Moles/Vol] 105 mmol/L Normal 101 - 1 11 mmol/L [facility] CO2 [Moles/Vol] 18 mmol/L Low 21 - 31 mmol/L [facility] Creatinine [Mass/Vol] 0.6 mg/dL Normal 0.5 - 1.3 mg/dL [facility] eGFR mL/min/1.73 m2 Normal >=59mL/min/1 .73 m2 [facility] Glucose [Mass/Vol] 114 mg/dL Normal 55 - 199 mg/dL [facility] Potassium [Moles/Vol] 5.5 mmol/L High 3.5 - 5.3 mmol/L [facility] Sodium [Moles/Vol] 128 mmol/L Low 135 - 145 mmol/L [facility] Urea nitrogen [Mass/Vol] 19 mg/dL Normal 5 - 21 mg/dL [facility] Urea nitrogen/Creatinine [Mass ratio] 32 mg/mg High 10 - 20 [facility] Discharge Instructionson Discharge Instructions [id number] IFF Normal [facility] Discharge Note-Nursingon Discharge Note-Nursing Normal Fi [facility] Inpatient Clinical Summaryon 03-18-2023 Inpatient Clinical Summary Normal [facility] Inpatient Patient Summaryon 03-18-2023 Inpatient Patient Summary Normal [facility] Progress Note-Physicianon Progress Note-Physician Normal [facility] Comment on above: Result Comment: Elec tronically Signed By: Sarah Steiner CNP.\.br\Date and Time Signed: 03/18/23 11:10 EST\.br\Electronically Co-Signed By: Sarah Steiner CNP.\.br\Date and Time Co-Signed: 03/18/23 11:25 EST\.br\Electronically Co-Signed By: Stefania Penaloza MD\.br\Date and Time Co-Signed: 03/18/23 18:46 EST eGFRon 03-18-2023 GFR/1.73 sq M.predicted among non-blacks MDRD (S/P/Bld) [Vol rate/Area] mL/min/{1.73_m2} Normal >=59 [facility] Comment on above: Order Comment: Order added by Discern Expert. Performed By: #### 1 4486903, 9592659 ####[facility] [address] [place] [address] Auto Diffon 03-17-2023 Basophils/100 WBC (Bld) 0.6 % Normal 0.0-2.0 [facility] Comment on above: Order Comment: Order Added by Discern Expert. Performed By: #### 1 5440687, 3710136, 8848631, 51842559, 0818677 ####[facility] [address] [place] [address] Basophils/Leukocytes Auto (Bld) [Pure # fraction] 0.0 E9/L Normal 0.0-0.2 [facility] Comment on above: Order Comment: Order Added by Discern Expert. Performed By: #### 1 5348453, 0239774, 1118897, 19413971, 9931423 ####[facility] [address] [place] [address] Eosinophils/100 WBC (Bld) 1.0 % Normal 0.0-8.0 [facility] Comment on above: Order Comment: Order Added by Monika Expert. Performed By: #### 1 7132357, 3114763, 8306536, 65137286, 7856693 ####[address] [place] [address] Eosinophils/Leukocytes Auto (Bld) [Pure # fraction] 0.1 E9/L Normal 0.0-0.5 [facility] Comment on above: Order Comment: Order Added by Discern Expert. Performed By: #### 1 8005377, 9809379, 8523248, 48780073, 5200248 ####[address] [place] [address] Lymphocytes/100 WBC (Bld) 14.4 % Normal 14.0-50.0 [facility] Comment on above: Order Comment: Order Added by Monika Expert. Performed By: #### 1 9417664, 8673049, 8815413, 56954149, 9001960 ####[address] [address] Lymphocytes/Leukocytes Auto (Bld) [Pure # fraction] 1.0 E9/L Normal 1.0-4.0 [facility] Comment on above: Order Comment: Order Added by Monika Expert. Performed By: #### 1 6070064, 2395639, 5886950, 13708959, 1954578 ####[address] [place] [address] Monocytes/100 WBC (Bld) 11.9 % Normal 4.0-14.0 [facility] Comment on above: Order Comment: Order Added by Monika Expert. Performed By: #### 1 6370940, 2232611, 4999854, 85852129, 8091337 ####[address] [place] [address] Monocytes/Leukocytes Auto (Bld) [Pure # fraction] 0.8 E9/L Normal 0.2-1.0 [facility] Comment on above: Order Comment: Order Added by Monika Expert. Performed By: #### 1 3187571, 4928144, 5339845, 45773510, 7603820 ####[facility] [address] [place] [address] Neutrophils/100 WBC (Bld) 72.1 % Normal 36.0-75.0 [facility] Comment on above: Order Comment: Order Added by Discern Expert. Performed By: #### 1 5365904, 3190012, 8202099, 16109052, 4730188 ####[address] [place] [address] Neutrophils/Leukocytes Auto (Bld) [Pure # fraction] 5.0 E9/L Normal 2.0-7.5 [facility] Comment on above: Order Comment: Order Added by Discern Expert. Performed By: #### 1 7235730, 1815147, 1144500, 34343558, 7548350 ####[address] [place] [address] BMPon 03-17-2023 Anion gap [Moles/Vol] 9 mmol/L Normal 6-16 [facility] Comment on above: Performed By: #### 1 4911040, 2636215, 3535212, 88315049, 8099339 ####[facility] [address] [place] [address] BUN/Creat Ratio 28 No Units High 10-20 [facility] Comment on above: Performed By: #### 1 5012646, 2995821, 5953069, 23626220, 0870996 ####[facility] [address] [place] [address] Calcium [Mass/Vol] 11.2 mg/dL High 8.9-11.1 [facility] Comment on above: Performed By: #### 1 1570916, 9842248, 6370213, 66039748, 0796884 ####[address] [place] [address] Chloride [Moles/Vol] 103 mmol/L Normal 101-111 [facility] Comment on above: Performed By: #### 1 6045014, 6905145, 0710679, 40011587, 3189496 ####[facility] [address] [place] [address] CO2 [Moles/Vol] 20 mmol/L Low 21-31 [facility] Comment on above: Performed By: #### 1 1167370, 8787233, 5187252, 99655426, 3304507 ####[facility] [address] [place] [address] Creatinine [Mass/Vol] 0.6 mg/dL Normal 0.5-1.3 [facility] Comment on above: Performed By: #### 1 8982153, 1472757, 8923200, 24046137, 6064890 ####[facility] [address] [place] [address] Glucose [Mass/Vol] 107 mg/dL Normal 55-199 [facility] Comment on above: Performed By: #### 1 8660111, 5174866, 2953285, 44896103, 0404405 ####[facility] [address] [place] [address] Potassium [Moles/Vol] 4.8 mmol/L Normal 3.5-5.3 [facility] Comment on above: Performed By: #### 1 7611239, 9434069, 0917902, 13923891, 3870662 ####[facility] [address] [place] [address] Sodium [Moles/Vol] 127 mmol/L Low 135-145 [facility] Comment on above: Performed By: #### 1 6277783, 3874045, 0554976, 80670812, 8348381 ####[facility] [address] [place] [address] Urea nitrogen [Mass/Vol] 17 mg/dL Normal 5-21 [facility] Comment on above: Performed By: #### 1 2618646, 7171994, 8814512, 58543622, 0027407 ####[facility] [address] [place] [address] CBC w/ Auto Diffon 4 Erythrocyte distribution width (RBC) [Ratio] 18.8 % High 10.9-14.2 [facility] Comment on above: Performed By: #### 1 3731827, 4120247, 9599829, 99870243, 2233860 ####[facility] [address] [place] [address] Hematocrit (Bld) [Volume fraction] 28.0 % Low 37.7-49.0 [facility] Comment on above: Performed By: #### 1 9081478, 2624740, 1838058, 98488936, 8879194 ####[facility] [address] [place] [address] Hemoglobin (Bld) [Mass/Vol] 9.2 g/dL Low 13.5-17.5 [facility] Comment on above: Performed By: #### 1 5142766, 0121159, 8125812, 51315713, 1119789 ####[place] MCH (RBC) [Entitic mass] 24.3 pg Low 27.0-34.0 [facility] Comment on above: Performed By: #### 1 8193467, 8765353, 3395399, 02080204, 0977035 ####[address] [address] MCHC (RBC) [Mass/Vol] 33.0 g/dL Normal 31.4-36.0 [facility] Comment on above: Performed By: #### 1 9122091, 9708097, 6377749, 67010493, 5752979 ####[address] [place] [address] MCV (RBC) [Entitic vol] 73.8 fL Low 80.0-100.0 [facility] Comment on above: Performed By: #### 1 1751678, 1216316, 5055050, 60579711, 6823778 ####[facility] [address] [place] [address] Platelet mean volume (Bld) [Entitic vol] 6.4 fL Normal 6.4-10.8 [facility] Comment on above: Performed By: #### 1 0614828, 5940699, 8064394, 86630861, 7827581 ####[facility] [address] [place] [address] Platelets (Bld) [#/Vol] 373.0 E9/L Normal 150.0-500.0 [facility] Comment on above: Performed By: #### 1 7704969, 8345858, 8083363, 84195382, 2376809 ####[facility] [address] [place] [address] RBC (Bld) [#/Vol] 3.8 E12/L Low 4.3-5.9 [facility] Comment on above: Performed By: #### 1 2453418, 1719372, 0813408, 14775744, 6537152 ####[facility] [address] [place] [address] WBC corrected for nucl RBC Auto (Bld) [#/Vol] 6.9 E9/L Normal 4.0-11.0 [facility] Comment on above: Performed By: #### 1 8645173, 5575965, 6844138, 68397937, 0673820 ####[facility] [address] [place] [address] CHEMISTRYOrdered By: SYSTEM SYSTEM on 03-17-2023 Sodium [Moles/Vol] 129 mmol/L Low 135 - 145 mmol/L [facility] Sodium [Moles/Vol] 128 mmol/L Low 135 - 145 mmol/L [facility] Anion gap [Moles/Vol] 9 mmol/L Normal 6 - 16 mEq/L R emisol Chem Calcium [Mass/Vol] 11.2 mg/dL High 8.9 - 11. 1 mg/dL [facility] Chloride [Moles/Vol] 103 mmol/L Normal 101 - 1 11 mmol/L [facility] CO2 [Moles/Vol] 20 mmol/L Low 21 - 31 mmol/L [facility] Creatinine [Mass/Vol] 0.6 mg/dL Normal 0.5 - 1.3 mg/dL [facility] eGFR mL/min/1.73 m2 Normal >=59mL/min/1 .73 m2 [facility] Glucose [Mass/Vol] 107 mg/dL Normal 55 - 199 mg/dL [facility] Potassium [Moles/Vol] 4.8 mmol/L Normal 3.5 - 5.3 mmol/L [facility] Urea nitrogen [Mass/Vol] 17 mg/dL Normal 5 - 21 mg/dL [facility] Urea nitrogen/Creatinine [Mass ratio] 28 mg/mg High 10 - 20 [facility] HEMATOLOGYOrdered By: Alka Morley on 03-17-2023 Anisocytosis Ql (Bld) Present (03/17/23 5:56 AM) Normal [facility] HemeManSS Elliptocytes LM Ql (Bld) Present (03/17/23 5:56 AM) Normal [facility] HemeManSS Erythrocyte distribution width (RBC) [Ratio] 18.8 % High 10.9 - 14.2 % [facility] HemeAutoSS Hematocrit (Bld) [Volume fraction] 28.0 % Low 37.7 - 49.0 % [facility] HemeAutoSS Hemoglobin (Bld) [Mass/Vol] 9.2 g/dL Low 13.5 - 17.5 gm/dL [facility] HemeAutoSS Hypochromia Auto Ql (Bld) Present (03/17/23 5:56 AM) Normal [facility] HemeManSS MCH (RBC) [Entitic mass] 24.3 pg Low 27.0 - 34.0 pg [facility] HemeAutoSS MCHC (RBC) [Mass/Vol] 33.0 g/dL Normal 31.4 - 36.0 gm/dL [facility] HemeAutoSS MCV (RBC) [Entitic vol] 73.8 fL Low 80.0 - 100.0 fL [facility] HemeAutoSS Morphology Andrew (Bld) [Interp] See Morphology (03/17/23 5:56 AM) Normal [facility] HemeManSS Ovalocytes LM Ql (Bld) Present (03/17/23 5:56 AM) Normal [facility] HemeManSS Platelet mean volume (Bld) [Entitic vol] 6.4 fL Normal 6.4 - 10.8 fL [facility] HemeAutoSS Platelets (Bld) [#/Vol] 373.0 E9/L Normal 150.0 - 500.0 E9/L [facility] HemeAutoSS RBC (Bld) [#/Vol] 3.8 E12/L Low 4.3 - 5.9 E12/L [facility] HemeAutoSS WBC corrected for nucl RBC Auto (Bld) [#/Vol] 6.9 E9/L Normal 4.0 - 11.0 E9/L [facility] HemeAutoSS HEMATOLOGYOrdered By: SYSTEM SYSTEM on 03-17-2023 Basophils/100 WBC (Bld) 0.6 % Normal 0.0 - 2.0 % [facility] HemeAutoSS Basophils/Leukocytes Auto (Bld) [Pure # fraction] 0.0 E9/L Normal 0.0 - 0.2 E9/L [facility] HemeAutoSS Eosinophils/100 WBC (Bld) 1.0 % Normal 0.0 - 8.0 % [facility] HemeAutoSS Eosinophils/Leukocytes Auto (Bld) [Pure # fraction] 0.1 E9/L Normal 0.0 - 0.5 E9/L [facility] HemeAutoSS Lymphocytes/100 WBC (Bld) 14.4 % Normal 14.0 - 50.0 % [facility] HemeAutoSS Lymphocytes/Leukocytes Auto (Bld) [Pure # fraction] 1.0 E9/L Normal 1.0 - 4.0 E9/L [facility] HemeAutoSS Monocytes/100 WBC (Bld) 11.9 % Normal 4.0 - 14.0 % [facility] HemeAutoSS Monocytes/Leukocytes Auto (Bld) [Pure # fraction] 0.8 E9/L Normal 0.2 - 1.0 E9/L [facility] HemeAutoSS Neutrophils/100 WBC (Bld) 72.1 % Normal 36.0 - 75.0 % [facility] HemeAutoSS Neutrophils/Leukocytes Auto (Bld) [Pure # fraction] 5.0 E9/L Normal 2.0 - 7.5 E9/L [facility] HemeAutoSS Insurance Correspondence Off iceon 03-17-2023 Insurance Correspondence Office [id number] F Normal [facility] Interdisciplinary Note - Peter e Manageron 03-17-2023 Interdisciplinary Note - Returner Normal [facility] Comment on above: Result Comment: Elec tronically Signed By: Madeline Edmondson\Date and Time Signed: 03/17/23 11:04 EST Morphon 03-17-2023 Anisocytosis Ql (Bld) Present Normal [facility] Comment on above: Order Comment: Order Added by Discern Expert. Performed By: #### 1 4830268, 8530719, 9336858, 67565378, 8453892 ####[facility] [address] [place] [address] Elliptocytes LM Ql (Bld) Present Normal [facility] Comment on above: Order Comment: Order Added by Discern Expert. Performed By: #### 1 6742970, 8363943, 9397475, 64042159, 4940956 ####[facility] [address] [place] [address] Hypochromia Auto Ql (Bld) Present Normal [facility] Comment on above: Order Comment: Order Added by Discern Expert. Performed By: #### 1 8545891, 6596332, 4446793, 85601470, 6559712 ####[facility] [address] [place] [address] Morphology Andrew (Bld) [Interp] See Morphology Normal [facility] Comment on above: Order Comment: Order Added by Discern Expert. Performed By: #### 1 8358005, 7318417, 6625312, 96062967, 3981137 ####[facility] [address] [place] [address] Ovalocytes LM Ql (Bld) Present Normal [facility] Comment on above: Order Comment: Order Added by Discern Expert. Performed By: #### 1 7602313, 1390920, 9984511, 79788889, 7626231 ####[facility] [address] [place] [address] Progress Note-Nurseon 2023 Progress Note-Nurse 2105 Offer repositio n or turning, patient refuse and offer to change pressure ulcer dressings, he refused also. Normal [facility] Progress Note-Nurse 0245 Offer to change dressing to his pressure ulcer, patient refused. Normal [facility] Progress Note-Nurse 0000 POCT and NEON PUMPER (Olive) offer the patient for turning, he refused to get turned. Normal [facility] Progress Note-Physicianon Progress Note-Physician Normal [facility] Comment on above: Result Comment: Elec tronically Signed By: Sarah Steiner CNP\.br\Date and Time Signed: 03/17/23 15:50 EST\.br\Electronically Co-Signed By: Stefania Penaloza MD\.br\Date and Time Co-Signed: 03/17/23 20:22 EST Progress Note-Physician Normal [facility] Comment on above: Result Comment: Elec tronically Signed By: Hernandez Freitas DO\.br\Date and Time Signed: 03/17/23 09:57 EST Sodiumon 03-17-2023 Sodium [Moles/Vol] 129 mmol/L Low 135-145 [facility] Comment on above: Performed By: #### 2 424598 ####[facility] [address] [place] [address] Sodium [Moles/Vol] 128 mmol/L Low 135-145 [facility] Comment on above: Performed By: #### 2 052382 ####[facility] [address] [place] [address] Sodium [Moles/Vol] 127 mmol/L Low 135-145 [facility] Comment on above: Performed By: #### 2 097406 ####[facility] [address] [place] [address] eGFRon 03-17-2023 GFR/1.73 sq M.predicted among non-blacks MDRD (S/P/Bld) [Vol rate/Area] mL/min/{1.73_m2} Normal >=59 [facility] Comment on above: Order Comment: Order added by Discern Expert. Performed By: #### 1 5289421, 1357555, 3133084, 49030241, 5828470 ####[facility] [address] [place] [address] Auto Diffon 03-16-2023 Basophils/100 WBC (Bld) 0.5 % Normal 0.0-2.0 [facility] Comment on above: Order Comment: Order Added by Discern Expert. Performed By: #### 2 179421, 7686336, 40309218, 15816844, 7648971 ####[address] [place] [address] Basophils/Leukocytes Auto (Bld) [Pure # fraction] 0.0 E9/L Normal 0.0-0.2 [facility] Comment on above: Order Comment: Order Added by Monika Expert. Performed By: #### 2 506169, 3846658, 04239970, 84053415, 3868784 ####[address] [address] Eosinophils/100 WBC (Bld) 0.7 % Normal 0.0-8.0 [facility] Comment on above: Order Comment: Order Added by Monika Expert. Performed By: #### 2 578361, 1226173, 61249034, 65216363, 1155304 ####[address] [address] Eosinophils/Leukocytes Auto (Bld) [Pure # fraction] 0.0 E9/L Normal 0.0-0.5 [facility] Comment on above: Order Comment: Order Added by Monika Expert. Performed By: #### 2 402657, 4506483, 56643012, 12435201, 3747770 ####[address] [address] Lymphocytes/100 WBC (Bld) 10.0 % Low 14.0-50.0 [facility] Comment on above: Order Comment: Order Added by Monika Expert. Performed By: #### 2 765360, 9152788, 01851694, 04670786, 6438941 ####[address] [address] Lymphocytes/Leukocytes Auto (Bld) [Pure # fraction] 0.7 E9/L Low 1.0-4.0 [facility] Comment on above: Order Comment: Order Added by Monika Expert. Performed By: #### 2 395704, 1173018, 24446932, 68430122, 0923855 ####[address] [place] [address] Monocytes/100 WBC (Bld) 11.1 % Normal 4.0-14.0 [facility] Comment on above: Order Comment: Order Added by Discern Expert. Performed By: #### 2 837461, 4424872, 16165621, 50280019, 4902042 ####[address] [place] [address] Monocytes/Leukocytes Auto (Bld) [Pure # fraction] 0.7 E9/L Normal 0.2-1.0 [facility] Comment on above: Order Comment: Order Added by Discern Expert. Performed By: #### 2 101688, 6934663, 45040973, 98406007, 0427886 ####[address] [place] [address] Neutrophils/100 WBC (Bld) 77.7 % High 36.0-75.0 [facility] Comment on above: Order Comment: Order Added by Discern Expert. Performed By: #### 2 115612, 1721805, 49786757, 69524756, 8880573 ####[address] [place] [address] Neutrophils/Leukocytes Auto (Bld) [Pure # fraction] 5.2 E9/L Normal 2.0-7.5 [facility] Comment on above: Order Comment: Order Added by Discern Expert. Performed By: #### 2 568765, 8297846, 95800594, 52197882, 6464920 ####[address] [place] [address] BMPon 03-16-2023 Anion gap [Moles/Vol] 10 mmol/L Normal 6-16 [facility] Comment on above: Performed By: #### 2 578705, 9670007, 20270865, 48233345, 7514147 ####[address] [place] [address] BUN/Creat Ratio 24 No Units High 10-20 [facility] Comment on above: Performed By: #### 2 823117, 5905042, 96372572, 66436968, 1497794 ####[facility] [address] [place] [address] Calcium [Mass/Vol] 10.9 mg/dL Normal 8.9-11.1 [facility] Comment on above: Performed By: #### 2 396075, 4252759, 99170937, 56674383, 1264046 ####[facility] [address] [place] [address] Chloride [Moles/Vol] 100 mmol/L Low 101-111 [facility] Comment on above: Performed By: #### 2 417786, 5612408, 18263222, 30686665, 0115060 ####[facility] [address] [place] [address] CO2 [Moles/Vol] 20 mmol/L Low 21-31 [facility] Comment on above: Performed By: #### 2 492380, 9180294, 58419880, 46503677, 7415427 ####[facility] [address] [place] [address] Creatinine [Mass/Vol] 0.7 mg/dL Normal 0.5-1.3 [facility] Comment on above: Performed By: #### 2 024715, 1282046, 40605591, 21799486, 5893065 ####[facility] [address] [place] [address] Glucose [Mass/Vol] 111 mg/dL Normal 55-199 [facility] Comment on above: Performed By: #### 2 892836, 7479581, 56305849, 07524321, 3728473 ####[facility] [address] [place] [address] Potassium [Moles/Vol] 4.5 mmol/L Normal 3.5-5.3 [facility] Comment on above: Performed By: #### 2 438058, 3447681, 99451522, 36381020, 0809837 ####[facility] [address] [place] [address] Sodium [Moles/Vol] 125 mmol/L Low 135-145 [facility] Comment on above: Performed By: #### 2 698615, 3950688, 52069670, 48091106, 0321366 ####[facility] [address] [place] [address] Urea nitrogen [Mass/Vol] 17 mg/dL Normal 5-21 [facility] Comment on above: Performed By: #### 2 485683, 0142138, 34313607, 71952308, 9742823 ####[facility] [address] [place] [address] C Urineon 03-16-2023 Bacteria identified Cx Nom (U) Normal [facility] Comment on above: Performed By: #### 2 796543, 4513304, 7321233, 11243075 ####[facility] [address] [place] [address] CBC w/ Auto Diffon Erythrocyte distribution width (RBC) [Ratio] 19.3 % High 10.9-14.2 [facility] Comment on above: Performed By: #### 2 536971, 8236355, 72353735, 91742999, 0056869 ####[address] [address] Hematocrit (Bld) [Volume fraction] 28.2 % Low 37.7-49.0 [facility] Comment on above: Performed By: #### 2 040835, 9957583, 65445882, 27078870, 8020693 ####[facility] [address] [place] [address] Hemoglobin (Bld) [Mass/Vol] 9.1 g/dL Low 13.5-17.5 [facility] Comment on above: Performed By: #### 2 150632, 1854614, 20998275, 17092241, 2381908 ####[facility] [address] [place] [address] MCH (RBC) [Entitic mass] 23.5 pg Low 27.0-34.0 [facility] Comment on above: Performed By: #### 2 630776, 6337100, 22986658, 98230899, 5903953 ####[facility] [address] [place] [address] MCHC (RBC) [Mass/Vol] 32.2 g/dL Normal 31.4-36.0 [facility] Comment on above: Performed By: #### 2 499409, 9817077, 29656800, 01697599, 0232703 ####[address] [address] MCV (RBC) [Entitic vol] 72.9 fL Low 80.0-100.0 [facility] Comment on above: Performed By: #### 2 020697, 8145123, 48910661, 09877918, 5754174 ####[address] Platelet mean volume (Bld) [Entitic vol] 6.7 fL Normal 6.4-10.8 [facility] Comment on above: Performed By: #### 2 015526, 0653506, 78675286, 60625617, 3106995 ####[address] [address] Platelets (Bld) [#/Vol] 397.0 E9/L Normal 150.0-500.0 [facility] Comment on above: Performed By: #### 2 662378, 3345878, 08112798, 62971324, 2886915 ####[address] [address] RBC (Bld) [#/Vol] 3.9 E12/L Low 4.3-5.9 [facility] Comment on above: Performed By: #### 2 223632, 7607790, 75067740, 13849377, 9763204 ####[address] [address] WBC corrected for nucl RBC Auto (Bld) [#/Vol] 6.7 E9/L Normal 4.0-11.0 [facility] Comment on above: Performed By: #### 2 256487, 6733745, 02202601, 71129911, 4307112 ####[facility] [address] [place] [address] CHEMISTRYOrdered By: SYSTEM SYSTEM on 03-16-2023 Sodium [Moles/Vol] 34 mmol/L Invalid Interpretation Code Remisol Chem Anion gap [Moles/Vol] 10 mmol/L Normal 6 - 16 mEq/L R emisol Chem Calcium [Mass/Vol] 10.9 mg/dL Normal 8.9 - 11. 1 mg/dL [facility] Chloride [Moles/Vol] 100 mmol/L Low 101 - 1 11 mmol/L [facility] CO2 [Moles/Vol] 20 mmol/L Low 21 - 31 mmol/L Rem[facility] Chem Creatinine [Mass/Vol] 0.7 mg/dL Normal 0.5 - 1.3 mg/dL [facility] Chem eGFR mL/min/1.73 m2 Normal >=59mL/min/1 .73 m2 [facility] Glucose [Mass/Vol] 111 mg/dL Normal 55 - 199 mg/dL [facility] Potassium [Moles/Vol] 4.5 mmol/L Normal 3.5 - 5.3 mmol/L [facility] Urea nitrogen [Mass/Vol] 17 mg/dL Normal 5 - 21 mg/dL [facility] Urea nitrogen/Creatinine [Mass ratio] 24 mg/mg High 10 - 20 [facility] CHEMISTRYOrdered By: Megha Díaz on 03-16-2023 U Osmolality 441 mOsm/kg Normal 50 - 1400 mOsm/kg [facility] Man UA SS Consultation Noteon 03-16-19 Consultation Note Normal [facility] Comment on above: Result Comment: Elec tronically Signed By: Ca KNIGHT, Stefania\.rohini\Date and Time Signed: 03/16/23 15:22 EST HEMATOLOGYOrdered By: Helen Díaz on 03-16-2023 Anisocytosis Ql (Bld) Present (03/16/23 5:56 AM) Normal [facility] HemeManSS Elliptocytes LM Ql (Bld) Present (03/16/23 5:56 AM) Normal [facility] HemeManSS Erythrocyte distribution width (RBC) [Ratio] 19.3 % High 10.9 - 14.2 % [facility] HemeAutoSS Hematocrit (Bld) [Volume fraction] 28.2 % Low 37.7 - 49.0 % [facility] HemeAutoSS Hemoglobin (Bld) [Mass/Vol] 9.1 g/dL Low 13.5 - 17.5 gm/dL [facility]eAuto[facility] Hypochromia Auto Ql (Bld) Present (03/16/23 5:56 AM) Normal [facility] HemeManSS MCH (RBC) [Entitic mass] 23.5 pg Low 27.0 - 34.0 pg [facility] HemeAutoSS MCHC (RBC) [Mass/Vol] 32.2 g/dL Normal 31.4 - 36.0 gm/dL [facility]eAutoSS MCV (RBC) [Entitic vol] 72.9 fL Low 80.0 - 100.0 fL [facility]eAuto[facility] Morphology Andrew (Bld) [Interp] See Morphology (03/16/23 5:56 AM) Normal [facility] HemeManSS Ovalocytes LM Ql (Bld) Present (03/16/23 5:56 AM) Normal [facility] HemeManSS Platelet mean volume (Bld) [Entitic vol] 6.7 fL Normal 6.4 - 10.8 fL [facility]eAutoSS Platelets (Bld) [#/Vol] 397.0 E9/L Normal 150.0 - 500.0 E9/L [facility]eAutoSS RBC (Bld) [#/Vol] 3.9 E12/L Low 4.3 - 5.9 E12/L [facility]eAutoSS WBC corrected for nucl RBC Auto (Bld) [#/Vol] 6.7 E9/L Normal 4.0 - 11.0 E9/L [facility] HemeAutoSS HEMATOLOGYOrdered By: SYSTEM SYSTEM on 03-16-2023 Basophils/100 WBC (Bld) 0.5 % Normal 0.0 - 2.0 % [facility]eAutoSS Basophils/Leukocytes Auto (Bld) [Pure # fraction] 0.0 E9/L Normal 0.0 - 0.2 E9/L [facility]eAutoSS Eosinophils/100 WBC (Bld) 0.7 % Normal 0.0 - 8.0 % [facility] HemeAutoSS Eosinophils/Leukocytes Auto (Bld) [Pure # fraction] 0.0 E9/L Normal 0.0 - 0.5 E9/L [facility] HemeAutoSS Lymphocytes/100 WBC (Bld) 10.0 % Low 14.0 - 50.0 % [facility] HemeAutoSS Lymphocytes/Leukocytes Auto (Bld) [Pure # fraction] 0.7 E9/L Low 1.0 - 4.0 E9/L [facility] HemeAutoSS Monocytes/100 WBC (Bld) 11.1 % Normal 4.0 - 14.0 % [facility] HemeAutoSS Monocytes/Leukocytes Auto (Bld) [Pure # fraction] 0.7 E9/L Normal 0.2 - 1.0 E9/L [facility]eAutoSS Neutrophils/100 WBC (Bld) 77.7 % High 36.0 - 75.0 % [facility] HemeAutoSS Neutrophils/Leukocytes Auto (Bld) [Pure # fraction] 5.2 E9/L Normal 2.0 - 7.5 E9/L [facility] HemeAutoSS Interdisciplinary Note - Peter e Manageron 03-16-2023 Interdisciplinary Note - Returner [facility] Comment on above: Result Comment: Elec tronically Signed By: Madeline Edmondson\.br\Date and Time Signed: 03/16/23 11:05 EST Interdisciplinary Note - Mauricio singon 03-16-2023 Interdisciplinary Note - Nursing [facility] Interdisciplinary Note - Soc ial Workeron 03-16-2023 Interdisciplinary Note - Sales Representative Printing Paper [facility] Message from Medicareon Message from Medicare [id number]#1.00TI FF [facility] Monitor Recordon 03-16-2023 Monitor Record [id number]#1.00TI FF [facility] Monitor Record [id number]#1.00TI FF [facility] Monitor Record [id number]#1.00TI FF [facility] Monitor Record [id number]#1.00TI FF Normal [facility] Morphon 03-16-2023 Anisocytosis Ql (Bld) Present Normal [facility] Comment on above: Order Comment: Order Added by Discern Expert. Performed By: #### 2 272613, 9539533, 49217398, 55707522, 1436522 ####[facility] [address] [place] [address] Elliptocytes LM Ql (Bld) Present Normal [facility] Comment on above: Order Comment: Order Added by Discern Expert. Performed By: #### 2 253141, 7661263, 86401878, 13203105, 9440322 ####[facility] [address] [place] [address] Hypochromia Auto Ql (Bld) Present Normal [facility] Comment on above: Order Comment: Order Added by Discern Expert. Performed By: #### 2 143053, 0769155, 69744896, 33593223, 1125366 ####[facility] [address] [place] [address] Morphology Andrew (Bld) [Interp] See Morphology Normal [facility] Comment on above: Order Comment: Order Added by Discern Expert. Performed By: #### 2 690723, 5838830, 48326152, 71150570, 3883858 ####[facility] [address] [place] [address] Ovalocytes LM Ql (Bld) Present Normal [facility] Comment on above: Order Comment: Order Added by Discern Expert. Performed By: #### 2 395380, 9839640, 50060304, 80426803, 3476503 ####[facility] [address] [place] [address] Progress Note-Nurseon 2023 Progress Note-Nurse Normal [facility]larisa [facility] Progress Note-Physicianon Progress Note-Physician Normal [facility] Comment on above: Result Comment: Elec tronically Signed By: Paster DO, Hernandez J.\.br\Date and Time Signed: 03/16/23 11:02 EST Sodiumon 03-16-2023 Sodium [Moles/Vol] 127 mmol/L Low 135-145 [facility] Comment on above: Performed By: #### 2 583344 ####[facility] [address] [place] [address] Sodium [Moles/Vol] 125 mmol/L Low 135-145 [facility] Comment on above: Performed By: #### 2 700477 ####[address] [place] [address] Sodium [Moles/Vol] 125 mmol/L Low 135-145 [facility] Comment on above: Performed By: #### 2 058424 ####[address] [address] U Osmolalityon 03-16-2023 U Osmolality 441 mOsm/kg Normal 50-1400 [facility] Comment on above: Performed By: #### 2 374355, 8794457 ####[address] [address] U Sodiumon 03-16-2023 Sodium [Moles/Vol] 34 mmol/L Invalid Interpretation Code [facility] Comment on above: Performed By: #### 2 116762, 0772761 ####[address] [address] eGFRon 03-16-2023 GFR/1.73 sq M.predicted among non-blacks MDRD (S/P/Bld) [Vol rate/Area] mL/min/{1.73_m2} Normal >=59 [facility] Comment on above: Order Comment: Order added by Discern Expert. Performed By: #### 2 378734, 4163656, 41863251, 79646797, 6023877 ####[facility] [address] [place] [address] BMPon 03-15-2023 Anion gap [Moles/Vol] 13 mmol/L Normal 6-16 [facility] Comment on above: Performed By: #### 2 237581, 7976803, 3962309, 78918041 ####[facility] [address] [place] [address] BUN/Creat Ratio 23 No Units High 10-20 [facility] Comment on above: Performed By: #### 2 895285, 0759811, 8675451, 97716403 ####[facility] [address] [place] [address] Calcium [Mass/Vol] 11.2 mg/dL High 8.9-11.1 [facility] Comment on above: Performed By: #### 2 443123, 0187887, 9269405, 36124912 ####[facility] [address] [place] [address] Chloride [Moles/Vol] 97 mmol/L Low 101-111 [facility] Comment on above: Performed By: #### 2 035346, 5565147, 3388206, 01808573 ####[facility] [address] [place] [address] CO2 [Moles/Vol] 19 mmol/L Low 21-31 [facility] Comment on above: Performed By: #### 2 670434, 2817743, 0264726, 49110279 ####[facility] [address] [place] [address] Creatinine [Mass/Vol] 0.7 mg/dL Normal 0.5-1.3 [facility] Comment on above: Performed By: #### 2 333688, 1975385, 2056813, 04511080 ####[facility] [address] [place] [address] Glucose [Mass/Vol] 69 mg/dL Normal 55-199 [facility] Comment on above: Performed By: #### 2 903335, 2663246, 3281847, 48422514 ####[facility] [address] [place] [address] Potassium [Moles/Vol] 4.8 mmol/L Normal 3.5-5.3 [facility] Comment on above: Performed By: #### 2 054764, 0434437, 0842736, 56124728 ####[facility] [address] [place] [address] Sodium [Moles/Vol] 124 mmol/L Low 135-145 [facility] Comment on above: Performed By: #### 2 324946, 6555921, 9504609, 66890685 ####[facility] [address] [place] [address] Urea nitrogen [Mass/Vol] 16 mg/dL Normal 5-21 [facility] Comment on above: Performed By: #### 2 028930, 7287921, 0254530, 70684539 ####[address] [place] [address] CBC w/Indiceson 03-15-2023 Erythrocyte distribution width (RBC) [Ratio] 19.4 % High 10.9-14.2 [facility] Comment on above: Performed By: #### 2 149184, 6926020, 1374490, 34792862 ####[address] [place] [address] Hematocrit (Bld) [Volume fraction] 29.9 % Low 37.7-49.0 [facility] Comment on above: Performed By: #### 2 771982, 3259580, 8413945, 21764065 ####[address] [place] [address] Hemoglobin (Bld) [Mass/Vol] 9.9 g/dL Low 13.5-17.5 [facility] Comment on above: Performed By: #### 2 424276, 2420874, 0708612, 71273036 ####[address] [place] [address] MCH (RBC) [Entitic mass] 24.1 pg Low 27.0-34.0 [facility] Comment on above: Performed By: #### 2 132641, 8476885, 9462038, 32036784 ####[address] [place] [address] MCHC (RBC) [Mass/Vol] 33.0 g/dL Normal 31.4-36.0 [facility] Comment on above: Performed By: #### 2 712846, 4999523, 9731728, 98377873 ####[address] [address] MCV (RBC) [Entitic vol] 73.0 fL Low 80.0-100.0 [facility] Comment on above: Performed By: #### 2 378788, 3239749, 5082615, 92299030 ####[address] [address] Platelet mean volume (Bld) [Entitic vol] 6.6 fL Normal 6.4-10.8 [facility] Comment on above: Performed By: #### 2 587206, 2147296, 3362743, 93643358 ####[place] [address] Platelets (Bld) [#/Vol] 428.0 E9/L Normal 150.0-500.0 [facility] Comment on above: Performed By: #### 2 158856, 5874135, 0978951, 95979145 ####[address] [address] RBC (Bld) [#/Vol] 4.1 E12/L Low 4.3-5.9 [facility] Comment on above: Performed By: #### 2 164783, 0395127, 1125284, 21059019 ####[address] [address] WBC corrected for nucl RBC Auto (Bld) [#/Vol] 7.1 E9/L Normal 4.0-11.0 [facility] Comment on above: Performed By: #### 2 227123, 1490362, 5805695, 93119521 ####[address] [address] CHEMISTRYOrdered By: SYSTEM SYSTEM on 03-15-2023 Magnesium [Mass/Vol] 1.9 mg/dL Normal 1.3 - 2 .4 mg/dL Remisol Chem Consultation Noteon 03-15-19 Consultation Note Normal [facility] Comment on above: Result Comment: Elec tronically Signed By: Ruth Ann GARCIA MD\.br\Date and Time Signed: 03/15/23 11:06 EST ED Note-Physicianon 03-15-19 ED Note-Physician Normal [facility] Comment on above: Result Comment: Elec tronically Signed By: Gena Garzon DObr\Date and Time Signed: 03/15/23 15:39 EST HEMATOLOGYOrdered By: Nirali Valerio on 03-15-2023 Erythrocyte distribution width (RBC) [Ratio] 19.4 % High 10.9 - 14.2 % [facility] HemeAutoSS Hematocrit (Bld) [Volume fraction] 29.9 % Low 37.7 - 49.0 % [facility] HemeAutoSS Hemoglobin (Bld) [Mass/Vol] 9.9 g/dL Low 13.5 - 17.5 gm/dL [facility]eAuto[facility] MCH (RBC) [Entitic mass] 24.1 pg Low 27.0 - 34.0 pg [facility]Auto[facility] MCHC (RBC) [Mass/Vol] 33.0 g/dL Normal 31.4 - 36.0 gm/dL [facility]eAuto[facility] MCV (RBC) [Entitic vol] 73.0 fL Low 80.0 - 100.0 fL [facility] Platelet mean volume (Bld) [Entitic vol] 6.6 fL Normal 6.4 - 10.8 fL [facility]eAuto[facility] Platelets (Bld) [#/Vol] 428.0 E9/L Normal 150.0 - 500.0 E9/L [facility] RBC (Bld) [#/Vol] 4.1 E12/L Low 4.3 - 5.9 E12/L [facility]Auto[facility] WBC corrected for nucl RBC Auto (Bld) [#/Vol] 7.1 E9/L Normal 4.0 - 11.0 E9/L [facility]eAuto[facility] Interdisciplinary Note - Peter e Manageron 03-15-2023 Interdisciplinary Note - Returner Normal [facility] Comment on above: Result Comment: Elec tronically Signed By: Elaine Herrmann RN\.br\Date and Time Signed: 03/15/23 12:59 EST Magnesiumon 03-15-2023 Magnesium [Mass/Vol] 1.9 mg/dL Normal 1.3-2.4 [facility] Comment on above: Performed By: #### 2 453617, 9240223, 7788122, 09476131 ####[facility] [address] [place] [address] Monitor Recordon 03-15-2023 Monitor Record [id number]#1.00TI FF Normal [facility] Monitor Record [id number]#1.00TI FF Normal [facility] Outside Recordson 03-15-2023 Outside Records [id number]#1.00TI FF Normal [facility] PSA Totalon 03-15-2023 PSA Total 1.3 ng/mL Normal 0.1-3.5 [facility] Comment on above: Result Comment: The concentration of PSA determined by different manufacturers can vary due to differences in assay methods and reagent specificity. Values obtained from different assay methods cannot be used interchangeably. The methodology used for this result was chemiluminescence using [employer]'s Access Hybritech PSA reagent. Performed By: #### 1 5272551 ####[facility] [address] [place] [address] Progress Note-Nurseon 2023 Progress Note-Nurse Discussed turning q2 hours with patient and at bedside but patient refused to be turned as he said it is painful and does not want to be disturbed. Normal [facility] Progress Note-Physicianon Progress Note-Physician Normal [facility] Comment on above: Result Comment: Elec tronically Signed By: Hernandez Freitas DO.br\Date and Time Signed: 03/15/23 13:45 EST Sodiumon 03-15-2023 Sodium [Moles/Vol] 124 mmol/L Low 135-145 [facility] Comment on above: Performed By: #### 2 026749 ####[facility] [address] [place] [address] Sodium [Moles/Vol] 124 mmol/L Low 135-145 [facility] Comment on above: Order Comment: Pt cu rrently receiving a line. Left line packet with Dr. Brandt who stated he would draw labs from the line, [id number] 03/15/2023 13:30:56 EST Performed By: #### 2 838757 ####[facility] [address] [place] [address] Sodium [Moles/Vol] 124 mmol/L Low 135-145 [facility] Comment on above: Performed By: #### 2 913254 ####[facility] [address] [place] [address] Sodium [Moles/Vol] 123 mmol/L Low 135-145 [facility] Comment on above: Performed By: #### 2 761938 ####[facility] [address] [place] [address] eGFRon 03-15-2023 GFR/1.73 sq M.predicted among non-blacks MDRD (S/P/Bld) [Vol rate/Area] mL/min/{1.73_m2} Normal >=59 [facility] Comment on above: Order Comment: Order added by Discern Expert. Performed By: #### 2 239045, 5336454, 3197480, 18346117 ####[facility] [address] [place] [address] Auto Diffon 03-14-2023 Basophils/100 WBC (Bld) 0.4 % Normal 0.0-2.0 [facility] Comment on above: Order Comment: Order Added by Discern Expert. Performed By: #### 1 1653171, 43080505, 1215774, 3609448, 1740532, 45308696 ####[facility] [address] [place] [address] Basophils/Leukocytes Auto (Bld) [Pure # fraction] 0.0 E9/L Normal 0.0-0.2 [facility] Comment on above: Order Comment: Order Added by Monika Expert. Performed By: #### 1 3582349, 88234186, 9273100, 4431559, 9085116, 46880818 ####[facility] [address] [place] [address] Eosinophils/100 WBC (Bld) 0.4 % Normal 0.0-8.0 [facility] Comment on above: Order Comment: Order Added by Monika Expert. Performed By: #### 1 4746297, 03715420, 7688812, 1602841, 5222167, 23433230 ####[address] [place] [address] Eosinophils/Leukocytes Auto (Bld) [Pure # fraction] 0.0 E9/L Normal 0.0-0.5 [facility] Comment on above: Order Comment: Order Added by Monika Expert. Performed By: #### 1 3122474, 05002390, 2425664, 6644815, 1706050, 92342324 ####[address] [place] [address] Lymphocytes/100 WBC (Bld) 10.6 % Low 14.0-50.0 [facility] Comment on above: Order Comment: Order Added by Monika Expert. Performed By: #### 1 4724810, 33215323, 2125408, 0948207, 6390249, 07954909 ####[address] [address] Lymphocytes/Leukocytes Auto (Bld) [Pure # fraction] 0.7 E9/L Low 1.0-4.0 [facility] Comment on above: Order Comment: Order Added by Monika Expert. Performed By: #### 1 0268462, 80866821, 5604302, 0776206, 0887289, 86531411 ####[address] [place] [address] Monocytes/100 WBC (Bld) 8.2 % Normal 4.0-14.0 [facility] Comment on above: Order Comment: Order Added by Discern Expert. Performed By: #### 1 3825854, 40302542, 9225709, 1476396, 3062617, 54176962 ####[address] [place] [address] Monocytes/Leukocytes Auto (Bld) [Pure # fraction] 0.6 E9/L Normal 0.2-1.0 [facility] Comment on above: Order Comment: Order Added by Discern Expert. Performed By: #### 1 1667295, 94641695, 4217544, 9063387, 9152789, 11912817 ####[address] [place] [address] Neutrophils/100 WBC (Bld) 80.4 % High 36.0-75.0 [facility] Comment on above: Order Comment: Order Added by Discern Expert. Performed By: #### 1 5238898, 83888939, 3589722, 1978740, 5877380, 84716985 ####[address] [address] Neutrophils/Leukocytes Auto (Bld) [Pure # fraction] 5.6 E9/L Normal 2.0-7.5 [facility] Comment on above: Order Comment: Order Added by Discern Expert. Performed By: #### 1 1448566, 19577469, 8651973, 9919112, 4278516, 44536394 ####[address] [place] [address] BMPon 03-14-2023 Anion gap [Moles/Vol] 13 mmol/L Normal 6-16 [facility] Comment on above: Performed By: #### 1 3923472, 21242353, 0290165, 0525415, 4252574, 14583611 ####[address] [place] [address] BUN/Creat Ratio 19 No Units Normal 10-20 [facility] Comment on above: Performed By: #### 1 9175734, 53871038, 9501322, 6462654, 0206633, 85141323 ####[address] [place] [address] Calcium [Mass/Vol] 11.1 mg/dL Normal 8.9-11.1 [facility] Comment on above: Performed By: #### 1 1165931, 33531356, 5033566, 9199666, 9348330, 55170072 ####[facility] [address] [place] [address] Chloride [Moles/Vol] 95 mmol/L Low 101-111 [facility] Comment on above: Performed By: #### 1 5554382, 72673718, 5574189, 4977266, 8704601, 07637606 ####[facility] [address] [place] [address] CO2 [Moles/Vol] 20 mmol/L Low 21-31 [facility] Comment on above: Performed By: #### 1 8017808, 78137836, 4673358, 7661129, 1855749, 87829878 ####[facility] [address] [place] [address] Creatinine [Mass/Vol] 0.8 mg/dL Normal 0.5-1.3 [facility] Comment on above: Performed By: #### 1 5958650, 24000210, 8377624, 7333651, 5737136, 51967694 ####[facility] [address] [place] [address] Glucose [Mass/Vol] 106 mg/dL Normal 55-199 [facility] Comment on above: Performed By: #### 1 3242839, 49611672, 9267663, 5273085, 3992807, 31077627 ####[facility] [address] [place] [address] Potassium [Moles/Vol] 5.0 mmol/L Normal 3.5-5.3 [facility] Comment on above: Performed By: #### 1 4748081, 86703267, 3672266, 0747378, 6237147, 61083312 ####[facility] [address] [place] [address] Sodium [Moles/Vol] 123 mmol/L Low 135-145 [facility] Comment on above: Performed By: #### 1 1304191, 77121458, 6574267, 8739386, 5870062, 84909133 ####[facility] [address] [place] [address] Urea nitrogen [Mass/Vol] 15 mg/dL Normal 5-21 [facility] Comment on above: Performed By: #### 1 9023873, 11463936, 7052050, 4867107, 3137177, 32023814 ####[facility] [address] [place] [address] CBC w/ Auto Diffon 3 Erythrocyte distribution width (RBC) [Ratio] 19.3 % High 10.9-14.2 [facility] Comment on above: Performed By: #### 1 4439844, 01061900, 0629416, 2225211, 2610942, 83183272 ####[address] [address] Hematocrit (Bld) [Volume fraction] 30.9 % Low 37.7-49.0 [facility] Comment on above: Performed By: #### 1 9409669, 20316253, 1881134, 5578275, 9680534, 32043505 ####[address] [address] Hemoglobin (Bld) [Mass/Vol] 9.7 g/dL Low 13.5-17.5 [facility] Comment on above: Performed By: #### 1 6274317, 24004033, 4842800, 7228954, 0638303, 76503509 ####[facility] [address] [place] [address] MCH (RBC) [Entitic mass] 23.3 pg Low 27.0-34.0 [facility] Comment on above: Performed By: #### 1 3169874, 40770749, 8253028, 8116394, 8052070, 42978416 ####[address] [place] [address] MCHC (RBC) [Mass/Vol] 31.4 g/dL Normal 31.4-36.0 [facility] Comment on above: Performed By: #### 1 3111724, 04048401, 6626474, 3179165, 3550564, 83869090 ####[address] MCV (RBC) [Entitic vol] 74.2 fL Low 80.0-100.0 [facility] Comment on above: Performed By: #### 1 0326997, 95950734, 8888158, 6429293, 4873770, 51392427 ####[address] [address] Platelet mean volume (Bld) [Entitic vol] 6.4 fL Normal 6.4-10.8 [facility] Comment on above: Performed By: #### 1 5336841, 23916036, 1345844, 8388384, 9996025, 78021143 ####[address] [address] Platelets (Bld) [#/Vol] 447.0 E9/L Normal 150.0-500.0 [facility] Comment on above: Performed By: #### 1 6915651, 83527445, 5219154, 1004497, 0539380, 25588352 ####[address] [address] RBC (Bld) [#/Vol] 4.2 E12/L Low 4.3-5.9 [facility] Comment on above: Performed By: #### 1 8365142, 53339768, 4947421, 2602001, 8506364, 95599464 ####[address] [address] WBC corrected for nucl RBC Auto (Bld) [#/Vol] 6.9 E9/L Normal 4.0-11.0 [facility] Comment on above: Performed By: #### 1 9174525, 22552789, 6959265, 0508642, 3849367, 59061468 ####[facility] [address] [place] [address] CHEMISTRYOrdered By: SYSTEM SYSTEM on 03-14-2023 Sodium [Moles/Vol] 20 mmol/L Invalid Interpretation Code Remisol Chem CHEMISTRYOrdered By: Kristen Belcher on 03-14-2023 U Osmolality 201 mOsm/kg Normal 50 - 1400 mOsm/kg [facility] Man UA SS COAGULATIONOrdered By: Amena aquino Ye on 03-14-2023 aPTT Coag (PPP) [Time] 36.0 s Normal 25.1 - 36.5 second(s) [facility] Auto Coag Comment on above: Interpretive Data: Franny espinoza 15 days - 4 weeks 1 - 5 months 6 - 11 months 1 - 5 years 6 - 10 years 11 - 17 years PTT Mean: 35.4 (27.6-45.6) Mean: 33.5 (24.8-40.7) Mean: 32.4 (25.1-40.7) Mean: 31.6 (24.0-39.2) Mean: 31.6 (26.9-38.7) Mean: 31.0 (24.6-38.4) Pediatric Reference ranges were obtained from a study by Kun Flores et al. prepared from 1437 samples obtained at 7 different centers using the same coagulation reagent and instrumentation as [facility]. Currently there are no coagulation studies available worldwide for children to 14 days, and no normal ranges. Heparin therapeutic range (represented by Anti-Factor Xa activity of 0.2 - 0.4 U/mL) corresponds to PTT of 56.6 - 109.0 sec. INR Coag (PPP) [Relative time] 2.1 {INR} Invalid Interpretation Code [facility] Auto Coag Comment on above: Interpretive Data: I NR results are specifically intended to assess patients stabilized on long-term Anticoagulation therapy suggested INR s Less Intensive Anticoagulation 2.0 3.0 Conventional Range 3.0 4.5 PT Coag (PPP) [Time] 24.1 s High 9.4 - 1 2.5 second(s) [facility] Auto Coag Comment on above: Interpretive Data: 1 5 days - 4 weeks 1 - 5 months 6 -11 months 1-5 years 6-10 years 11 -17 years Mean: 11.2 (9.5-12.6) Mean: 11.0 (9.7-12.8) Mean: 11.0 (9.8-13.0) Mean: 11.3 (9.9-13.4) Mean: 11.7 (10.0-14.6) Mean: 11.8 (10.0 - 14.1) Pediatric Reference ranges were obtained from a study by Kun Flores et al. prepared from 1437 samples obtained at 7 different centers using the same coagulation reagent and instrumentation as [facility]. Currently there are no coagulation studies available worldwide for children to 14 days, and no normal ranges. Consent for Treatmenton 02-14 Consent for Treatment [id number]#1.00TIF F Normal [facility] ED Clinical Summaryon 2022 ED Clinical Summary Normal Carlos Enrique r [facility] ED Patient Education Noteon 03-14-2023 ED Patient Education Note Normal [facility] ED Patient Summaryon 023 ED Patient Summary Normal [facility] HEMATOLOGYOrdered By: Madeline Nash on 03-14-2023 Anisocytosis Ql (Bld) Present (03/14/23 4:36 PM) Normal [facility] HemeManSS Hypochromia Auto Ql (Bld) Present (03/14/23 4:36 PM) Normal [facility] HemeManSS Microcytes Ql (Bld) Present (03/14/23 4:36 PM) Normal [facility] HemeManSS Morphology Andrew (Bld) [Interp] See Morphology (03/14/23 4:36 PM) Normal [facility] HemeManSS HEMATOLOGYOrdered By: SYSTEM SYSTEM on 03-14-2023 Basophils/100 WBC (Bld) 0.4 % Normal 0.0 - 2.0 % [facility] HemeAutoSS Basophils/Leukocytes Auto (Bld) [Pure # fraction] 0.0 E9/L Normal 0.0 - 0.2 E9/L [facility] HemeAutoSS Eosinophils/100 WBC (Bld) 0.4 % Normal 0.0 - 8.0 % [facility] HemeAutoSS Eosinophils/Leukocytes Auto (Bld) [Pure # fraction] 0.0 E9/L Normal 0.0 - 0.5 E9/L [facility] HemeAutoSS Lymphocytes/100 WBC (Bld) 10.6 % Low 14.0 - 50.0 % [facility] HemeAutoSS Lymphocytes/Leukocytes Auto (Bld) [Pure # fraction] 0.7 E9/L Low 1.0 - 4.0 E9/L [facility] HemeAutoSS Monocytes/100 WBC (Bld) 8.2 % Normal 4.0 - 14.0 % [facility] HemeAutoSS Monocytes/Leukocytes Auto (Bld) [Pure # fraction] 0.6 E9/L Normal 0.2 - 1.0 E9/L [facility] HemeAutoSS Neutrophils/100 WBC (Bld) 80.4 % High 36.0 - 75.0 % [facility] HemeAutoSS Neutrophils/Leukocytes Auto (Bld) [Pure # fraction] 5.6 E9/L Normal 2.0 - 7.5 E9/L FT HemeAutoSS Laboratory - Microbiology an d Antimicrobial susceptibilityOrdered By: Erika Franklin on 03-14-2023 Bacteria identified Cx Nom (U) 1,000 cfu/ml Mixed skin contaminants [facility] Monitor Recordon 03-14-2023 Monitor Record [id number] FF Normal [facility] Monitor Record [id number]#1.00TI FF Normal [facility] Morphon 03-14-2023 Anisocytosis Ql (Bld) Present Normal [facility] Comment on above: Order Comment: Order Added by Discern Expert. Performed By: #### 1 4880453, 21828911, 6771516, 1887360, 3473020, 53984977 ####[facility] [address] [place] [address] Hypochromia Auto Ql (Bld) Present Normal [facility] Comment on above: Order Comment: Order Added by Discern Expert. Performed By: #### 1 6157614, 35874254, 6421807, 8370870, 0306097, 88156549 ####[facility] [address] [place] [address] Microcytes Ql (Bld) Present Normal Carlos Enrique reese [facility] Comment on above: Order Comment: Order Added by Discern Expert. Performed By: #### 1 9350225, 13874546, 6699465, 6207610, 9772121, 13615446 ####[facility] [address] [place] [address] Morphology Andrew (Bld) [Interp] See Morphology Normal [facility] Comment on above: Order Comment: Order Added by Discern Expert. Performed By: #### 1 0677894, 53044677, 7407205, 5345978, 7801369, 17046223 ####[facility] [address] [place] [address] PT & PTTon 03-14-2023 aPTT Coag (PPP) [Time] 36.0 second(s) Normal 25.1-36.5 [facility] Comment on above: Result Comment: Para meter 15 days - 4 weeks 1 - 5 months 6 - 11 months 1 - 5 years 6 - 10 years 11 - 17 years PTT Mean: 35.4 (27.6-45.6) Mean: 33.5 (24.8-40.7) Mean: 32.4 (25.1-40.7) Mean: 31.6 (24.0-39.2) Mean: 31.6 (26.9-38.7) Mean: 31.0 (24.6-38.4) Pediatric Reference ranges were obtained from a study by Kun Flores et al. prepared from 1437 samples obtained at 7 different centers using the same coagulation reagent and instrumentation as [facility]. Currently there are no coagulation studies available worldwide for children to 14 days, and no normal ranges. Heparin therapeutic range (represented by Anti-Factor Xa activity of 0.2 - 0.4 U/mL) corresponds to PTT of 56.6 - 109.0 sec. Performed By: #### 1 7408034, 27572601, 2825891, 0603578, 6236456, 83535502 ####[facility] [address] [place] [address] INR Coag (PPP) [Relative time] 2.1 {INR} Invalid Interpretation Code [facility] Comment on above: Result Comment: INR results are specifically intended to assess patients stabilized on long-term Anticoagulation therapy suggested INR?s ?Less Intensive Anticoagulation? 2.0 ? 3.0Conventional Range 3.0 ? 4.5 Performed By: #### 1 6453688, 08271525, 4997904, 1621276, 6092357, 96794521 ####[facility] [address] [place] [address] PT Coag (PPP) [Time] 24.1 second(s) High 9.4-12.5 [facility] Comment on above: Result Comment: 15 d ays - 4 weeks 1 - 5 months 6 -11 months 1- 5 years 6-10 years 11 -17 years Mean: 11.2 (9.5-12.6) Mean: 11.0 (9.7-12.8) Mean: 11.0 (9.8-13.0) Mean: 11.3 (9.9-13.4) Mean: 11.7 (10.0-14.6) Mean: 11.8 (10.0 - 14.1) Pediatric Reference ranges were obtained from a study by Kun Flores et al. prepared from 1437 samples obtained at 7 different centers using the same coagulation reagent and instrumentation as [facility]. Currently there are no coagulation studies available worldwide for children to 14 days, and no normal ranges. Performed By: #### 1 5000741, 15256032, 6993821, 1883432, 3013795, 90109149 ####[facility] [address] [place] [address] Pre-Arrival Noteon 3 Pre-Arrival Note Normal [facility] Sodiumon 03-14-2023 Sodium [Moles/Vol] 125 mmol/L Low 135-145 [facility] Comment on above: Performed By: #### 2 378292 ####[facility] [address] [place] [address] U Osmolalityon 03-14-2023 U Osmolality 201 mOsm/kg Normal 50-1400 [facility] Comment on above: Performed By: #### 2 379279, 0361983, 3814383, 85549488 ####[facility] [address] [place] [address] U Sodiumon 03-14-2023 Sodium [Moles/Vol] 20 mmol/L Invalid Interpretation Code [facility] Comment on above: Performed By: #### 2 422310, 8125740, 0541872, 60126072 ####[facility] [address] [place] [address] UA With Cult Reflexon 2022 Bacteria LM Ql (Urine sed) TRACE Normal Trace [facility] Comment on above: Performed By: #### 2 881952, 3816182, 3436230, 96265376 ####[address] [address] Bilirubin Ql (U) Negative Normal Negative [facility] Comment on above: Performed By: #### 2 546653, 7065120, 1816945, 73709339 ####[place] [address] Clarity (U) CLOUDY Abnormal Clear [facility] Comment on above: Performed By: #### 2 548257, 9727692, 2206975, 88955842 ####[facility] [address] [place] [address] Color (U) RED Abnormal Yellow [facility] Comment on above: Performed By: #### 2 811792, 8326770, 1520268, 17890651 ####[address] [place] [address] Epithelial cells.squamous LM.HPF (Urine sed) [#/Area] 0-2 Normal 0-2 [facility] Comment on above: Performed By: #### 2 903893, 2144269, 8093443, 35776146 ####[address] [address] Glucose Test strip (U) [Mass/Vol] 3+ Abnormal Negative [facility] Comment on above: Performed By: #### 2 986546, 0123930, 4332802, 11142792 ####[facility] [address] [place] [address] Hemoglobin Ql (U) 3+ Abnormal Negative [facility] Comment on above: Performed By: #### 2 505887, 1187366, 1806345, 83063994 ####[facility] [address] [place] [address] Ketones (U) [Mass/Vol] Negative Normal Negative [facility] Comment on above: Performed By: #### 2 706503, 7986982, 7753091, 57594854 ####[address] [address] [place].plasma/[place] .RBC (Bld) [Mass ratio] >75 Abnormal 0-3 [facility] Comment on above: Performed By: #### 2 799254, 6648327, 3713283, 30766245 ####[address] [address] Nitrite Ql (U) Negative Normal Negative [facility] Comment on above: Performed By: #### 2 346301, 5480600, 9458758, 95610207 ####[address] [address] pH (U) 6.5 [pH] Invalid Interpretation Code 5.0-9.0 [facility] Comment on above: Performed By: #### 2 048284, 9994682, 7445313, 28021115 ####[address] [address] Protein (U) [Mass/Vol] 1+ Abnormal Negative [facility] Comment on above: Performed By: #### 2 051844, 5368049, 8124444, 40028877 ####[address] [address] Specific gravity (U) [Rel density] 1.010 Invalid Interpretation Code 1.005-1.030 [facility] Comment on above: Performed By: #### 2 505596, 9727504, 3500927, 39565993 ####[facility] [address] [place] [address] Type of Urine collection method Clean Catch Normal [facility] Comment on above: Performed By: #### 2 254246, 9392898, 8935905, 90335189 ####[facility] [address] [place] [address] Urobilinogen Qn (U) 0.2 {Dejah'U}/dL Normal 0.0-1.0 [facility] Comment on above: Performed By: #### 2 290412, 6759811, 6062969, 85967742 ####[facility] [address] [place] [address] WBC Auto Ql (U) 2+ Abnormal Negative [facility] Comment on above: Performed By: #### 2 169889, 7664450, 4200042, 51938673 ####[facility] [address] [place] [address] WBC LM.HPF (Urine sed) [#/Area] 16-25 Abnormal 0-5 [facility] Comment on above: Performed By: #### 2 393073, 1844065, 1638657, 65243375 ####[facility] [address] [place] [address] URINALYSISOrdered By: Shaun Belcher on 03-14-2023 Bacteria LM Ql (Urine sed) Trace /HPF Normal Trace/HPF [facility] UA Auto SS Bilirubin Ql (U) Negative (03/14/23 5:34 PM) Normal Negative [facility] UA Auto SS Clarity (U) Cloudy *ABN* (03/14/23 5:34 PM) Invalid Interpretation Code Clear [facility] UA Auto SS Color (U) Red *ABN* (03/14/23 5:34 PM) Invalid Interpretation Code Yellow [facility] UA Auto SS Epithelial cells.squamous LM.HPF (Urine sed) [#/Area] 0-2 /HPF Normal 0-2/HPF [facility] UA Aut o SS Glucose Test strip (U) [Mass/Vol] 3+ *ABN* (03/14/23 5:34 PM) Invalid Interpretation Code Negative [facility] UA Auto SS Hemoglobin Ql (U) 3+ *ABN* (03/14/23 5:34 PM) Invalid Interpretation Code Negative [facility] UA Auto SS Ketones (U) [Mass/Vol] Negative (03/14/23 5:34 PM) Normal Negative [facility] UA Auto SS [place].plasma/[place] .RBC (Bld) [Mass ratio] >75 /HPF Invalid Interpretation Code 0-3/HPF [facility] UA Auto SS Nitrite Ql (U) Negative (03/14/23 5:34 PM) Normal Negative [facility] UA Auto SS pH (U) 6.5 *NA* (03/14/23 5:34 PM) Invalid Interpretation Code 5.0 - 9.0 [facility] UA Auto SS Protein (U) [Mass/Vol] 1+ *ABN* (03/14/23 5:34 PM) Invalid Interpretation Code Negative [facility] UA Auto SS Specific gravity (U) [Rel density] 1.010 *NA* (03/14/23 5:34 PM) Invalid Interpretation Code 1.005 - 1.030 [facility] UA Auto SS UA Spec Desc Clean Catch (03/14/23 5:34 PM) Normal [facility] UA Auto SS Urobilinogen Qn (U) 0.6516726 {Dejah'U}/dL Normal 0.0 - 1.0 EU/dL [facility] UA Auto SS WBC Auto Ql (U) 2+ *ABN* (03/14/23 5:34 PM) Invalid Interpretation Code Negative [facility] UA Auto SS WBC LM.HPF (Urine sed) [#/Area] 16-25 /HPF Invalid Interpretation Code 0-5/HPF [facility] UA Auto SS eGFRon 03-14-2023 GFR/1.73 sq M.predicted among non-blacks MDRD (S/P/Bld) [Vol rate/Area] mL/min/{1.73_m2} Normal >=59 [facility] Comment on above: Order Comment: Order added by Discern Expert. Performed By: #### 1 9004682, 17963953, 3430483, 7299917, 1736543, 60267610 ####[facility] [address] [place] [address] Consent for Omnipaque Myelog irvin 03-12-2023 Consent for Omnipaque Myelogram [id number]#1.00TI FF Normal [facility] Consent for PICC lineon 12-2 Consent for PICC line [id number]#1.00TIF F Normal [facility] CBC W Auto Differential pane l (Bld)on 03-05-2023 Basophils (Bld) [#/Vol] 0.02 10*3/uL [facility] Basophils/100 WBC (Bld) 0.3 % 0.0 - 2.0 % [facility] Eosinophils (Bld) [#/Vol] 0.08 10*3/uL [facility] Eosinophils/100 WBC (Bld) 1.0 % 0.0 - 6.0 % [facility] Erythrocyte distribution width (RBC) [Ratio] 18.9 % High 11.5 - 14.5 % [facility] Hematocrit (Bld) [Volume fraction] 30.2 % Low 41.0 - 52.0 % [facility] Hemoglobin (Bld) [Mass/Vol] 9.5 g/dL Low 13.5 - 17.5 g/dL [facility] Immature granulocytes (Bld) [#/Vol] 0.05 10*3/uL [facility] Immature granulocytes/100 WBC (Bld) 0.7 % 0.0 - 0.9 % [facility] Interpretation and review of laboratory results Abnormal [facility] Lymphocytes (Bld) [#/Vol] 1.65 10*3/uL [facility] Lymphocytes/100 WBC (Bld) 21.5 % 13.0 - 44.0 % [facility] MCH (RBC) [Entitic mass] 24.3 pg Low 26.0 - 34.0 pg [facility] MCHC (RBC) [Mass/Vol] 31.5 g/dL Low 32.0 - 36.0 g/dL [facility] MCV (RBC) [Entitic vol] 77 fL Low 80 - 100 fL [facility] Monocytes (Bld) [#/Vol] 0.37 10*3/uL [facility] Monocytes/100 WBC (Bld) 4.8 % 2.0 - 10.0 % [facility] Neutrophils (Bld) [#/Vol] 5.52 10*3/uL [facility] Neutrophils/100 WBC (Bld) 71.7 % 40.0 - 80.0 % [facility] Nucleated RBC/100 WBC (Bld) [Ratio] 0.0 % [facility] Platelets (Bld) [#/Vol] 334 10*3/uL [facility] RBC (Bld) [#/Vol] 3.91 10*6/uL Low [facility] WBC (Bld) [#/Vol] 7.7 10*3/uL [facility] Basophils (Bld) [#/Vol] 0.02 x10*3/uL Normal 0.00-0.10 [facility] Comment on above: Performed By: #### 5 7021-8 ####SARAH Mcknight ([id number])[facility] ([facility])[address] [place] [address] Basophils/100 WBC (Bld) 0.3 % Normal 0.0-2.0 [facility] Comment on above: Performed By: #### 5 7021-8 ####SARAH Mcknight ([id number])[facility] ([facility])[address] [place] [address] Eosinophils (Bld) [#/Vol] 0.08 x10*3/uL Normal 0.00-0.70 [facility] Comment on above: Performed By: #### 5 7021-8 ####SARAH Mcknight (45468)[facility] ([facility])[address] [place] [address] Eosinophils/100 WBC (Bld) 1.0 % Normal 0.0-6.0 [facility] Comment on above: Performed By: #### 5 7021-8 ####SARAH Mcknight ([id number])[facility] ([facility])[address] [place] [address] Erythrocyte distribution width (RBC) [Ratio] 18.9 % High 11.5-14.5 [facility] Comment on above: Performed By: #### 5 7021-8 ####SARAH Mcknight (58027)[facility] ([facility])[id number] [place] [address] Hematocrit (Bld) [Volume fraction] 30.2 % Low 41.0-52.0 [facility] Comment on above: Performed By: #### 5 7021-8 ####SARAH OMER L ([id number])[facility] ([facility])[id number] [place] [address] Hemoglobin (Bld) [Mass/Vol] 9.5 g/dL Low 13.5-17.5 [facility] Comment on above: Performed By: #### 5 7021-8 ####SARAH OMER L (55930)[facility] ([facility])[id number] [place] [address] Immature granulocytes (Bld) [#/Vol] 0.05 x10*3/uL Normal 0.00-0.70 [facility] Comment on above: Performed By: #### 5 7021-8 ####SARAH Mcknight ([id number])[facility] ([facility])[id number] [place] [address]40 Immature granulocytes/100 WBC (Bld) 0.7 % Normal 0.0-0.9 [facility] Comment on above: Result Comment: Ciera ture Granulocyte Count (IG) includes promyelocytes, myelocytes and metamyelocytes but does not include bands. Percent differential counts (%) should be interpreted in the context of the absolute cell counts (cells/UL). Performed By: #### 5 7021-8 ####SARAH OMER L ([id number])[facility] ([facility])[id number] [place] [address] 98052 Lymphocytes (Bld) [#/Vol] 1.65 x10*3/uL Normal 1.20-4.80 [facility] Comment on above: Performed By: #### 5 7021-8 ####SARAH OMER L ([id number])[facility] ([facility])[address] [place] [address] Lymphocytes/100 WBC (Bld) 21.5 % Normal 13.0-44.0 [facility] Comment on above: Performed By: #### 5 7021-8 ####SARAH Mcknight ([id number])[facility] ([facility])[address] [place] [address] MCH (RBC) [Entitic mass] 24.3 pg Low 26.0-34.0 [facility] Comment on above: Performed By: #### 5 7021-8 ####SARAH Mcknight ([id number])[facility] ([facility])[address] [place] [address] MCHC (RBC) [Mass/Vol] 31.5 g/dL Low 32.0-36.0 [facility] Comment on above: Performed By: #### 5 7021-8 ####SARAH Mcknight ([id number])[facility] ([facility])[address] [place] [address] MCV (RBC) [Entitic vol] 77 fL Low 80-100 [facility] Comment on above: Performed By: #### 5 7021-8 ####SARAH Mcknight ([id number])[facility] ([facility])[address] [place] [address] Monocytes (Bld) [#/Vol] 0.37 x10*3/uL Normal 0.10-1.00 [facility] Comment on above: Performed By: #### 5 7021-8 ####SARAH Mcknight ([id number])[facility] ([facility])[address] [place] [address] Monocytes/100 WBC (Bld) 4.8 % Normal 2.0-10.0 [facility] Comment on above: Performed By: #### 5 7021-8 ####SARAH Mcknight ([id number])[facility] ([facility])[address] [place] [address] Neutrophils (Bld) [#/Vol] 5.52 x10*3/uL Normal 1.20-7.70 [facility] Comment on above: Result Comment: Perc ent differential counts (%) should be interpreted in the context of the absolute cell counts (cells/uL). Performed By: #### 5 7021-8 ####SARAH Mcknight ([id number])[facility] ([facility])[address] [place] [address] Neutrophils/100 WBC (Bld) 71.7 % Normal 40.0-80.0 [facility] Comment on above: Performed By: #### 5 7021-8 ####SARAH Mcknight ([id number])[facility] ([facility])[address] [place] [address] Nucleated RBC/100 WBC (Bld) [Ratio] 0.0 /100 WBCs Normal 0.0-0.0 [facility] Comment on above: Performed By: #### 5 7021-8 ####SARAH Mcknight ([id number])[facility] ([facility])[address] [place] [address] Platelets (Bld) [#/Vol] 334 x10*3/uL Normal 150-450 [facility] Comment on above: Performed By: #### 5 7021-8 ####SARAH Mcknight ([id number])[facility] ([facility])[address]75 [place] [address] RBC (Bld) [#/Vol] 3.91 x10*6/uL Low 4.50-5.90 [facility] Comment on above: Performed By: #### 5 7021-8 ####SARAH OMER L ([id number])[facility] ([facility])[address] [place] [address] WBC (Bld) [#/Vol] 7.7 x10*3/uL Normal 4.4-11.3 [facility] Comment on above: Performed By: #### 5 7021-8 ####SARAH Mcknight ([id number])[facility] ([facility])[address] [place] [address] Glucose Test strip manual (B ld) [Mass/Vol]on 03-05-2023 Glucose [Mass/Vol] 106 mg/dL High 74 - 99 mg/dL [facility] Interpretation and review of laboratory results Abnormal [facility] Glucose [Mass/Vol] 106 mg/dL High 74-99 [facility] Comment on above: Performed By: #### 2 341-6 ####SARAH Mcknight ([id number])[facility] ([facility])[address] [place], [place] [id number] Magnesiumon 03-05-2023 Magnesium [Mass/Vol] 1.60 mg/dL 1.60 - 2.40 mg/dL [facility] Magnesium [Mass/Vol] 1.60 mg/dL Normal 1.60-2.40 [facility] Comment on above: Performed By: #### 1 9123-9 ####SARAH Mcknight ([id number])[facility] ([facility])[address] [place] [address] Magnesium [Mass/Vol]on 03-05 Interpretation and review of laboratory results Normal [facility] No Panel Informationon 03-05 [facility] Renal function 2000 panelon 03-05-2023 Albumin BCP dye [Mass/Vol] 2.6 g/dL Low 3.4 - 5.0 g/dL [facility] Anion gap [Moles/Vol] 11 mmol/L 10 - 2 0 mmol/L [facility] Calcium [Mass/Vol] 9.9 mg/dL 8.6 - 10. 6 mg/dL [facility] Chloride [Moles/Vol] 103 mmol/L 98 - 10 7 mmol/L [facility] CO2 [Moles/Vol] 21 mmol/L 21 - 32 mmol/L [facility] Creatinine [Mass/Vol] 0.63 mg/dL 0.50 - 1.30 mg/dL [facility] GFR/1.73 sq M.predicted MDRD (S/P/Bld) [Vol rate/Area] - PINF [facility] Glucose [Mass/Vol] 93 mg/dL 74 - 99 mg/dL [facility] Interpretation and review of laboratory results Abnormal [facility] Phosphate [Mass/Vol] 2.4 mg/dL Low 2.5 - 4 .9 mg/dL [facility] Potassium [Moles/Vol] 5.1 mmol/L 3.5 - 5.3 mmol/L [facility] Sodium [Moles/Vol] 130 mmol/L Low 136 - 145 mmol/L [facility] Urea nitrogen [Mass/Vol] 11 mg/dL 6 - 23 mg/dL [facility] Albumin BCP dye [Mass/Vol] 2.6 g/dL Low 3.4-5.0 [facility] Comment on above: Performed By: #### 2 4362-6 ####SARAH Mcknight ([id number])[facility] ([facility])[address] [place] [address] Anion gap [Moles/Vol] 11 mmol/L Normal 10-20 [facility] Comment on above: Performed By: #### 2 4362-6 ####SARAH Mcknight ([id number])[facility] ([facility])[address] [place] [address] Calcium [Mass/Vol] 9.9 mg/dL Normal 8.6-10.6 [facility] Comment on above: Performed By: #### 2 4362-6 ####SARAH OMER L ([id number])[facility] ([facility])[address] [place] [address] Chloride [Moles/Vol] 103 mmol/L Normal 98-107 [facility] Comment on above: Performed By: #### 2 4362-6 ####SARAH OMER L ([id number])[facility] ([facility])[address] [place] [address] CO2 [Moles/Vol] 21 mmol/L Normal 21-32 [facility] Comment on above: Performed By: #### 2 4362-6 ####SARAH OMER L ([id number])[facility] ([facility])[address] [place] [address] Creatinine [Mass/Vol] 0.63 mg/dL Normal 0.50-1.30 [facility] Comment on above: Performed By: #### 2 4362-6 ####SARAH Mcknight ([id number])[facility] ([facility])[address] [place] [address] GFR/1.73 sq M.predicted MDRD (S/P/Bld) [Vol rate/Area] mL/min/{1.73_m2} Normal >60 [facility] Comment on above: Result Comment: Calc ulations of estimated GFR are performed using the 2020 CKD-EPI Study Refit equation without the race variable for the IDMS-Traceable creatinine methods.https://jasn.asnjournals.org/content/early//A SN.8468223832 Performed By: #### 2 4362-6 ####SARAH Mcknight ([id number])[facility] ([facility])[address] [place] [address] Glucose [Mass/Vol] 93 mg/dL Normal 74-99 [facility] Comment on above: Performed By: #### 2 4362-6 ####SARAH Mcknight ([id number])[facility] ([facility])[address] [place] [address] Phosphate [Mass/Vol] 2.4 mg/dL Low 2.5-4.9 [facility] Comment on above: Result Comment: The performance characteristics of phosphorus testing in heparinized plasma have been validated by the individual laboratory site where testing is performed. Testing on heparinized plasma is not approved by the FDA; however, such approval is not necessary. Performed By: #### 2 4362-6 ####SARAH Mcknight ([id number])[facility] ([facility])[address] [place] [address] Potassium [Moles/Vol] 5.1 mmol/L Normal 3.5-5.3 [facility] Comment on above: Performed By: #### 2 4362-6 ####SARAH Mcknight ([id number])[facility] ([facility])[address] [place] [address] Sodium [Moles/Vol] 130 mmol/L Low 136-145 [facility] Comment on above: Performed By: #### 2 4362-6 ####SARAH Mcknight ([id number])[facility] ([facility])[address]138 [place] [address] Urea nitrogen [Mass/Vol] 11 mg/dL Normal - [facility] Comment on above: Performed By: #### 2 4362-6 ####SARAH Mcknight ([id number])[facility] ([facility])[address] [place] [address] CBC panel Auto (Bld)on 03-04 Erythrocyte distribution width (RBC) [Ratio] 19.0 % High 11.5 - 14.5 % [facility] Hematocrit (Bld) [Volume fraction] 29.8 % Low 41.0 - 52.0 % [facility] Hemoglobin (Bld) [Mass/Vol] 9.4 g/dL Low 13.5 - 17.5 g/dL [facility] Interpretation and review of laboratory results Abnormal [facility] MCH (RBC) [Entitic mass] 24.0 pg Low 26.0 - 34.0 pg [facility] MCHC (RBC) [Mass/Vol] 31.5 g/dL Low 32.0 - 36.0 g/dL [facility] MCV (RBC) [Entitic vol] 76 fL Low 80 - 100 fL [facility] Nucleated RBC/100 WBC (Bld) [Ratio] 0.0 % [facility] Platelets (Bld) [#/Vol] 287 10*3/uL [facility] RBC (Bld) [#/Vol] 3.92 10*6/uL Low [facility] WBC (Bld) [#/Vol] 7.2 10*3/uL [facility] Erythrocyte distribution width (RBC) [Ratio] 19.0 % High 11.5-14.5 [facility] Comment on above: Order Comment: Obtai n prior to initiation of Heparin Therapy if not obtained in prior 24 hours - Nursing to release order. Performed By: #### 5 8410-2 ####SARAH Mcknight ([id number])[facility] ([facility])[address] [place] [address] Hematocrit (Bld) [Volume fraction] 29.8 % Low 41.0-52.0 [facility] Comment on above: Order Comment: Obtai n prior to initiation of Heparin Therapy if not obtained in prior 24 hours - Nursing to release order. Performed By: #### 5 8410-2 ####SARAH Mcknight ([id number])[facility] ([facility])[address] [place] [address] Hemoglobin (Bld) [Mass/Vol] 9.4 g/dL Low 13.5-17.5 [facility] Comment on above: Order Comment: Obtai n prior to initiation of Heparin Therapy if not obtained in prior 24 hours - Nursing to release order. Performed By: #### 5 8410-2 ####SARAH Mcknight ([id number])[facility] ([facility])[address] [place] [address] MCH (RBC) [Entitic mass] 24.0 pg Low 26.0-34.0 [facility] Comment on above: Order Comment: Obtai n prior to initiation of Heparin Therapy if not obtained in prior 24 hours - Nursing to release order. Performed By: #### 5 8410-2 ####SARAH Mcknight ([id number])[facility] ([facility])[address] [place] [address] MCHC (RBC) [Mass/Vol] 31.5 g/dL Low 32.0-36.0 [facility] Comment on above: Order Comment: Obtai n prior to initiation of Heparin Therapy if not obtained in prior 24 hours - Nursing to release order. Performed By: #### 5 8410-2 ####SARAH Mcknight ([id number])[facility] ([facility])[address] [place] [address] MCV (RBC) [Entitic vol] 76 fL Low 80-100 [facility] Comment on above: Order Comment: Obtai n prior to initiation of Heparin Therapy if not obtained in prior 24 hours - Nursing to release order. Performed By: #### 5 8410-2 ####SARAH Mcknight ([id number])[facility] ([facility])[address] [place] [address] 845[address] Nucleated RBC/100 WBC (Bld) [Ratio] 0.0 /100 WBCs Normal 0.0-0.0 [facility] Comment on above: Order Comment: Obtai n prior to initiation of Heparin Therapy if not obtained in prior 24 hours - Nursing to release order. Performed By: #### 5 8410-2 ####SARAH Mcknight ([id number])[facility] ([facility])[address] [place] [address] Platelets (Bld) [#/Vol] 287 x10*3/uL Normal 150-450 [facility] Comment on above: Order Comment: Obtai n prior to initiation of Heparin Therapy if not obtained in prior 24 hours - Nursing to release order. Performed By: #### 5 8410-2 ####SARAH Mcknight ([id number])[facility] ([facility])[address] [place] [address] RBC (Bld) [#/Vol] 3.92 x10*6/uL Low 4.50-5.90 [facility] Comment on above: Order Comment: Obtai n prior to initiation of Heparin Therapy if not obtained in prior 24 hours - Nursing to release order. Performed By: #### 5 8410-2 ####SARAH Mcknight ([id number])[facility] ([facility])[address] [place] [address] WBC (Bld) [#/Vol] 7.2 x10*3/uL Normal 4.4-11.3 [facility] Comment on above: Order Comment: Obtai n prior to initiation of Heparin Therapy if not obtained in prior 24 hours - Nursing to release order. Performed By: #### 5 8410-2 ####SARAH Mcknight ([id number])[facility] ([facility])[address] [place] [address] Glucose Test strip manual (B ld) [Mass/Vol]on 03-04-2023 Glucose [Mass/Vol] 109 mg/dL High 74 - 99 mg/dL [facility] Interpretation and review of laboratory results Abnormal [facility] Glucose [Mass/Vol] 109 mg/dL High 74-99 [facility] Comment on above: Performed By: #### 2 341-6 ####SARAH Mcknight ([id number])[facility] ([facility])[address] [place] [address] Heparin Assay, UFHon 023 Heparin unfractionated Chromogenic method Qn (PPP) 0.4 See Comment Below for Therapeutic Ranges IU/mL [facility] Heparin unfractionated Chrom ogenic method Qn (PPP)on 03-04-2023 Interpretation and review of laboratory results Normal [facility] Heparin.unfractionatedon Heparin unfractionated Chromogenic method Qn (PPP) 0.4 IU/mL Normal See Comment Below for Therapeutic Ranges [facility] Comment on above: Order Comment: Obtai n 4 hours after any Heparin dosage change. Nursing to release order.The therapeutic reference range for UFH may be either 0.3-0.6 IU/mL or 0.3-0.7 IU/mL based on the clinical setting for anticoagulant therapy and the associated nomogram used. For Heparin dosing guidelines based on clinical scenario and Heparin Assay results, please refer to local Pharmacy and the [facility] Guidelines for Anticoagulation Therapy available on the [facility] intranet at: [email or web address] Performed By: #### 3 274-8 ####SARAH Mcknight ([id number])[facility] ([facility])[address] [place] [address] Magnesiumon 03-04-2023 Magnesium [Mass/Vol] 1.39 mg/dL Low 1.60 - 2.40 mg/dL [facility] Magnesium [Mass/Vol] 1.39 mg/dL Low 1.60-2.40 [facility] Comment on above: Performed By: #### 1 9123-9 ####SARAH Mcknight ([id number])[facility] ([facility])[address] [place] [address] No Panel Informationon 03-04 Interpretation and review of laboratory results Abnormal [facility] Renal function 2000 panelon 03-04-2023 Albumin BCP dye [Mass/Vol] 2.2 g/dL Low 3.4 - 5.0 g/dL [facility] Anion gap [Moles/Vol] 13 mmol/L 10 - 2 0 mmol/L [facility] Calcium [Mass/Vol] 9.4 mg/dL 8.6 - 10. 6 mg/dL [facility] Chloride [Moles/Vol] 101 mmol/L 98 - 10 7 mmol/L [facility] CO2 [Moles/Vol] 22 mmol/L 21 - 32 mmol/L [facility] Creatinine [Mass/Vol] 0.49 mg/dL Low 0.50 - 1.30 mg/dL [facility] GFR/1.73 sq M.predicted MDRD (S/P/Bld) [Vol rate/Area] - PINF [facility] Glucose [Mass/Vol] 98 mg/dL 74 - 99 mg/dL [facility] Phosphate [Mass/Vol] 2.2 mg/dL Low 2.5 - 4 .9 mg/dL [facility] Potassium [Moles/Vol] 5.5 mmol/L High 3.5 - 5.3 mmol/L [facility] Sodium [Moles/Vol] 130 mmol/L Low 136 - 145 mmol/L [facility] Urea nitrogen [Mass/Vol] 11 mg/dL 6 - 23 mg/dL [facility] Albumin BCP dye [Mass/Vol] 2.2 g/dL Low 3.4-5.0 [facility] Comment on above: Performed By: #### 2 4362-6 ####SARAH Mcknight ([id number])[facility] ([facility])[address] [place] [address] Anion gap [Moles/Vol] 13 mmol/L Normal 10-20 [facility] Comment on above: Performed By: #### 2 4362-6 ####SARAH Mcknight ([id number])[facility] ([facility])[address] [place] [address] Calcium [Mass/Vol] 9.4 mg/dL Normal 8.6-10.6 [facility] Comment on above: Performed By: #### 2 4362-6 ####SARAH OMER L ([id number])[facility] ([facility])[address] [place] [address] Chloride [Moles/Vol] 101 mmol/L Normal 98-107 [facility] Comment on above: Performed By: #### 2 4362-6 ####SARAH OMER L (95783)[facility] ([facility])[address]03 [place] [address] CO2 [Moles/Vol] 22 mmol/L Normal 21-32 [facility] Comment on above: Performed By: #### 2 4362-6 ####SARAH Mcknight ([id number])[facility] ([facility])[address] [place] [address] Creatinine [Mass/Vol] 0.49 mg/dL Low 0.50-1.30 [facility] Comment on above: Performed By: #### 2 4362-6 ####SARAH OMER L ([id number])[facility] ([facility])[address] [place] [address] GFR/1.73 sq M.predicted MDRD (S/P/Bld) [Vol rate/Area] mL/min/{1.73_m2} Normal >60 [facility] Comment on above: Result Comment: Calc ulations of estimated GFR are performed using the 2020 CKD-EPI Study Refit equation without the race variable for the IDMS-Traceable creatinine methods.https://jasn.asnjournals.org/content/early/A .1705575055 Performed By: #### 2 4362-6 ####SARAH Mcknight ([id number])[facility] ([facility])[address] [place] [address] Glucose [Mass/Vol] 98 mg/dL Normal 74-99 [facility] Comment on above: Performed By: #### 2 4362-6 ####SARAH Mcknight (77281)[facility] ([facility])[address]69 [place] [address] Phosphate [Mass/Vol] 2.2 mg/dL Low 2.5-4.9 [facility] Comment on above: Result Comment: The performance characteristics of phosphorus testing in heparinized plasma have been validated by the individual laboratory site where testing is performed. Testing on heparinized plasma is not approved by the FDA; however, such approval is not necessary. Performed By: #### 2 4362-6 ####SARAH Mcknight ([id number])[facility] ([facility])[address] [place] [address] Potassium [Moles/Vol] 5.5 mmol/L High 3.5-5.3 [facility] Comment on above: Performed By: #### 2 4362-6 ####SARAH Mcknight ([id number])[facility] ([facility])[address] [place] [address] Sodium [Moles/Vol] 130 mmol/L Low 136-145 [facility] Comment on above: Performed By: #### 2 4362-6 ####SARAH Mcknight ([id number])[facility] ([facility])[address] [place] [address] Urea nitrogen [Mass/Vol] 11 mg/dL Normal 6-23 [facility] Comment on above: Performed By: #### 2 4362-6 ####SARAH Mcknight ([id number])[facility] ([facility])[address] [place] [address] CBC W Auto Differential pane l (Bld)on 03-03-2023 Basophils (Bld) [#/Vol] 0.02 10*3/uL [facility] Basophils/100 WBC (Bld) 0.3 % 0.0 - 2.0 % [facility] Eosinophils (Bld) [#/Vol] 0.05 10*3/uL [facility] Eosinophils/100 WBC (Bld) 0.7 % 0.0 - 6.0 % [facility] Erythrocyte distribution width (RBC) [Ratio] 18.8 % High 11.5 - 14.5 % [facility] Hematocrit (Bld) [Volume fraction] 31.4 % Low 41.0 - 52.0 % [facility] Hemoglobin (Bld) [Mass/Vol] 9.9 g/dL Low 13.5 - 17.5 g/dL [facility] Immature granulocytes (Bld) [#/Vol] 0.07 10*3/uL [facility] Immature granulocytes/100 WBC (Bld) 1.0 % High 0.0 - 0.9 % [facility] Interpretation and review of laboratory results Abnormal [facility] Lymphocytes (Bld) [#/Vol] 1.31 10*3/uL [facility] Lymphocytes/100 WBC (Bld) 18.8 % 13.0 - 44.0 % [facility] MCH (RBC) [Entitic mass] 23.7 pg Low 26.0 - 34.0 pg [facility] MCHC (RBC) [Mass/Vol] 31.5 g/dL Low 32.0 - 36.0 g/dL [facility] MCV (RBC) [Entitic vol] 75 fL Low 80 - 100 fL [facility] Monocytes (Bld) [#/Vol] 0.60 10*3/uL [facility] Monocytes/100 WBC (Bld) 8.6 % 2.0 - 10.0 % [facility] Neutrophils (Bld) [#/Vol] 4.93 10*3/uL [facility] Neutrophils/100 WBC (Bld) 70.6 % 40.0 - 80.0 % [facility] Nucleated RBC/100 WBC (Bld) [Ratio] 0.0 % [facility] Platelets (Bld) [#/Vol] 274 10*3/uL [facility] RBC (Bld) [#/Vol] 4.17 10*6/uL Low [facility] WBC (Bld) [#/Vol] 7.0 10*3/uL [facility] Basophils (Bld) [#/Vol] 0.02 x10*3/uL Normal 0.00-0.10 [facility] Comment on above: Performed By: #### 5 7021-8 ####SARAH Mcknight ([id number])[facility] ([facility])[id number] [place] [address]555 Basophils/100 WBC (Bld) 0.3 % Normal 0.0-2.0 [facility] Comment on above: Performed By: #### 5 7021-8 ####SARAH Mcknight ([id number])[facility] ([facility])[address] [place] [address] Eosinophils (Bld) [#/Vol] 0.05 x10*3/uL Normal 0.00-0.70 [facility] Comment on above: Performed By: #### 5 7021-8 ####SARAH Mcknight ([id number])[facility] ([facility])[address] [place] [address] Eosinophils/100 WBC (Bld) 0.7 % Normal 0.0-6.0 [facility] Comment on above: Performed By: #### 5 7021-8 ####SARAH Mcknight ([id number])[facility] ([facility])[address] [place] [address] Erythrocyte distribution width (RBC) [Ratio] 18.8 % High 11.5-14.5 [facility] Comment on above: Performed By: #### 5 7021-8 ####SARAH Mcknight ([id number])[facility] ([facility])[address] [place] [address] 635[address] Hematocrit (Bld) [Volume fraction] 31.4 % Low 41.0-52.0 [facility] Comment on above: Performed By: #### 5 7021-8 ####SARAH PENALOZAMOTZER L ([id number])[facility] ([facility])[address] [place] [address] Hemoglobin (Bld) [Mass/Vol] 9.9 g/dL Low 13.5-17.5 [facility] Comment on above: Performed By: #### 5 7021-8 ####SARAH SCHMOTZER L ([id number])[facility] ([facility])[address] [place] [address]239 Immature granulocytes (Bld) [#/Vol] 0.07 x10*3/uL Normal 0.00-0.70 [facility] Comment on above: Performed By: #### 5 7021-8 ####SARAH PENALOZAMOTZER L ([id number])[facility] ([facility])[address] [place] [address]709 Immature granulocytes/100 WBC (Bld) 1.0 % High 0.0-0.9 [facility] Comment on above: Result Comment: Ciera ture Granulocyte Count (IG) includes promyelocytes, myelocytes and metamyelocytes but does not include bands. Percent differential counts (%) should be interpreted in the context of the absolute cell counts (cells/UL). Performed By: #### 5 7021-8 ####SARAH MORENOTZER L ([id number])[facility] ([facility])[address] [place] [address] Lymphocytes (Bld) [#/Vol] 1.31 x10*3/uL Normal 1.20-4.80 [facility] Comment on above: Performed By: #### 5 7021-8 ####SARAH PENALOZAMOTZER L ([id number])[facility] ([facility])[address] [place] [address] Lymphocytes/100 WBC (Bld) 18.8 % Normal 13.0-44.0 [facility] Comment on above: Performed By: #### 5 7021-8 ####SARAH PENALOZAMOTZER L ([id number])[facility] ([facility])[address] [place] [address] MCH (RBC) [Entitic mass] 23.7 pg Low 26.0-34.0 [facility] Comment on above: Performed By: #### 5 7021-8 ####SARAH Mcknight ([id number])[facility] ([facility])[address] [place] [address] MCHC (RBC) [Mass/Vol] 31.5 g/dL Low 32.0-36.0 [facility] Comment on above: Performed By: #### 5 7021-8 ####SARAH Mcknight ([id number])[facility] ([facility])[address] [place] [address] MCV (RBC) [Entitic vol] 75 fL Low 80-100 [facility] Comment on above: Performed By: #### 5 7021-8 ####SARAH Mcknight ([id number])[facility] ([facility])[address] [place] [address] Monocytes (Bld) [#/Vol] 0.60 x10*3/uL Normal 0.10-1.00 [facility] Comment on above: Performed By: #### 5 7021-8 ####SARAH Mcknight ([id number])[facility] ([facility])[address] [place] [address] Monocytes/100 WBC (Bld) 8.6 % Normal 2.0-10.0 [facility] Comment on above: Performed By: #### 5 7021-8 ####SARAH Mcknight ([id number])[facility] ([facility])[address] [place] [address] Neutrophils (Bld) [#/Vol] 4.93 x10*3/uL Normal 1.20-7.70 [facility] Comment on above: Result Comment: Perc ent differential counts (%) should be interpreted in the context of the absolute cell counts (cells/uL). Performed By: #### 5 7021-8 ####SARAH Mcknight ([id number])[facility] ([facility])[address] [place] [address] Neutrophils/100 WBC (Bld) 70.6 % Normal 40.0-80.0 [facility] Comment on above: Performed By: #### 5 7021-8 ####SARAH Mcknight ([id number])[facility] ([facility])[address] [place] [address] Nucleated RBC/100 WBC (Bld) [Ratio] 0.0 /100 WBCs Normal 0.0-0.0 [facility] Comment on above: Performed By: #### 5 7021-8 ####SARAH Mcknight ([id number])[facility] ([facility])[address] [place] [address] Platelets (Bld) [#/Vol] 274 x10*3/uL Normal 150-450 [facility] Comment on above: Performed By: #### 5 7021-8 ####SARAH Mcknight ([id number])[facility] ([facility])[address] [place] [address] RBC (Bld) [#/Vol] 4.17 x10*6/uL Low 4.50-5.90 [facility] Comment on above: Performed By: #### 5 7021-8 ####SARAH Mcknight ([id number])[facility] ([facility])[address] [place] [address] WBC (Bld) [#/Vol] 7.0 x10*3/uL Normal 4.4-11.3 [facility] Comment on above: Performed By: #### 5 7021-8 ####SARAH OMER L ([id number])[facility] ([facility])[address] [place] [address] Cardiac catheterization stud yon 03-03-2023 [facility] Work Phone: [facility] Work Phone: Heparin Assay, UFHon 023 Heparin unfractionated Chromogenic method Qn (PPP) 0.6 See Comment Below for Therapeutic Ranges IU/mL [facility] Heparin unfractionated Chrom ogenic method Qn (PPP)on 03-03-2023 Interpretation and review of laboratory results Normal [facility] Heparin.unfractionatedon Heparin unfractionated Chromogenic method Qn (PPP) 0.6 IU/mL Normal See Comment Below for Therapeutic Ranges [facility] Comment on above: Order Comment: Obtai n 4 hours after initiation of heparin infusion. Nursing to release order.The therapeutic reference range for UFH may be either 0.3-0.6 IU/mL or 0.3-0.7 IU/mL based on the clinical setting for anticoagulant therapy and the associated nomogram used. For Heparin dosing guidelines based on clinical scenario and Heparin Assay results, please refer to local Pharmacy and the [facility] Guidelines for Anticoagulation Therapy available on the [facility] intranet at: [email or web address] Performed By: #### 3 274-8 ####SARAH Mcknight ([id number])[facility] ([facility])[address] [place] [address] Magnesiumon 03-03-2023 Magnesium [Mass/Vol] 1.60 mg/dL 1.60 - 2.40 mg/dL [facility] Magnesium [Mass/Vol] 1.60 mg/dL Normal 1.60-2.40 [facility] Comment on above: Performed By: #### 1 9123-9 ####SARAH Mcknight ([id number])[facility] ([facility])[address] [place] [address] Magnesium [Mass/Vol]on 03-03 Interpretation and review of laboratory results Normal [facility] No Panel Informationon 03-03 [facility] Renal function 2000 panelon 03-03-2023 Albumin BCP dye [Mass/Vol] 2.2 g/dL Low 3.4 - 5.0 g/dL [facility] Anion gap [Moles/Vol] 9 mmol/L Low 10 - 2 0 mmol/L [facility] Calcium [Mass/Vol] 9.5 mg/dL 8.6 - 10. 6 mg/dL [facility] Chloride [Moles/Vol] 103 mmol/L 98 - 10 7 mmol/L [facility] CO2 [Moles/Vol] 23 mmol/L 21 - 32 mmol/L [facility] Creatinine [Mass/Vol] 0.52 mg/dL 0.50 - 1.30 mg/dL [facility] GFR/1.73 sq M.predicted MDRD (S/P/Bld) [Vol rate/Area] - PINF [facility] Glucose [Mass/Vol] 117 mg/dL High 74 - 99 mg/dL [facility] Interpretation and review of laboratory results Abnormal [facility] Phosphate [Mass/Vol] 1.8 mg/dL Low 2.5 - 4 .9 mg/dL [facility] Potassium [Moles/Vol] 5.2 mmol/L 3.5 - 5.3 mmol/L [facility] Sodium [Moles/Vol] 130 mmol/L Low 136 - 145 mmol/L [facility] Urea nitrogen [Mass/Vol] 10 mg/dL 6 - 23 mg/dL [facility] Albumin BCP dye [Mass/Vol] 2.2 g/dL Low 3.4-5.0 [facility] Comment on above: Performed By: #### 2 4362-6 ####SARAH Mcknight ([id number])[facility] ([facility])[address] [place] [address] Anion gap [Moles/Vol] 9 mmol/L Low 10-20 [facility] Comment on above: Performed By: #### 2 4362-6 ####SARAH Mcknight ([id number])[facility] ([facility])[address] [place] [address] Calcium [Mass/Vol] 9.5 mg/dL Normal 8.6-10.6 [facility] Comment on above: Performed By: #### 2 4362-6 ####SARAH Mcknight ([id number])[facility] ([facility])[address] [place] [address] Chloride [Moles/Vol] 103 mmol/L Normal 98-107 [facility] Comment on above: Performed By: #### 2 4362-6 ####SARAH Mcknight ([id number])[facility] ([facility])[address] [place] [address] CO2 [Moles/Vol] 23 mmol/L Normal 21-32 [facility] Comment on above: Performed By: #### 2 4362-6 ####SARAH Mcknight ([id number])[facility] ([facility])[address] [place] [address] Creatinine [Mass/Vol] 0.52 mg/dL Normal 0.50-1.30 [facility] Comment on above: Performed By: #### 2 4362-6 ####SARAH Mcknight ([id number])[facility] ([facility])[address] [place] [address] GFR/1.73 sq M.predicted MDRD (S/P/Bld) [Vol rate/Area] mL/min/{1.73_m2} Normal >60 [facility] Comment on above: Result Comment: Calc ulations of estimated GFR are performed using the 2020 CKD-EPI Study Refit equation without the race variable for the IDMS-Traceable creatinine methods.https://jasn.asnjournals.org/content//A .0394417532 Performed By: #### 2 4362-6 ####SARAH Mcknight ([id number])[facility] ([facility])[address] [place] [address] Glucose [Mass/Vol] 117 mg/dL High 74-99 [facility] Comment on above: Performed By: #### 2 4362-6 ####SARAH Mcknight ([id number])[facility] ([facility])[address] [place] [address] Phosphate [Mass/Vol] 1.8 mg/dL Low 2.5-4.9 [facility] Comment on above: Result Comment: The performance characteristics of phosphorus testing in heparinized plasma have been validated by the individual laboratory site where testing is performed. Testing on heparinized plasma is not approved by the FDA; however, such approval is not necessary. Performed By: #### 2 4362-6 ####SARAH Mcknight ([id number])[facility] ([facility])[address] [place] [address] Potassium [Moles/Vol] 5.2 mmol/L Normal 3.5-5.3 [facility] Comment on above: Performed By: #### 2 4362-6 ####SARAH Mcknight ([id number])[facility] ([facility])[address] [place] [address] Sodium [Moles/Vol] 130 mmol/L Low 136-145 [facility] Comment on above: Performed By: #### 2 4362-6 ####SARAH Mcknight ([id number])[facility] ([facility])[address] [place] [address] Urea nitrogen [Mass/Vol] 10 mg/dL Normal 6-23 [facility] Comment on above: Performed By: #### 2 4362-6 ####SARAH Mcknight ([id number])[facility] ([facility])[address] [place] [address] Blood type and Indirect anti body screen panel (Bld)on 03-02-2023 ABO group Nom (Bld) A [facility] Blood group antibody screen Ql Negative [facility] D Ag Ql (Bld) Positive [facility] CARDIAC CATHETERIZATION - CO RONARYon 03-02-2023 CARDIAC CATHETERIZATION - CORONARY Normal [facility] CBC W Auto Differential pane l (Bld)on 03-02-2023 Basophils (Bld) [#/Vol] 0.01 10*3/uL [facility] Basophils/100 WBC (Bld) 0.1 % 0.0 - 2.0 % [facility] Eosinophils (Bld) [#/Vol] 0.01 10*3/uL [facility] Eosinophils/100 WBC (Bld) 0.1 % 0.0 - 6.0 % [facility] Erythrocyte distribution width (RBC) [Ratio] 18.3 % High 11.5 - 14.5 % [facility] Hematocrit (Bld) [Volume fraction] 31.5 % Low 41.0 - 52.0 % [facility] Hemoglobin (Bld) [Mass/Vol] 10.0 g/dL Low 13.5 - 17.5 g/dL [facility] Immature granulocytes (Bld) [#/Vol] 0.10 10*3/uL [facility] Immature granulocytes/100 WBC (Bld) 1.4 % High 0.0 - 0.9 % [facility] Interpretation and review of laboratory results Abnormal [facility] Lymphocytes (Bld) [#/Vol] 1.15 10*3/uL Low [facility] Lymphocytes/100 WBC (Bld) 16.6 % 13.0 - 44.0 % [facility] MCH (RBC) [Entitic mass] 23.8 pg Low 26.0 - 34.0 pg [facility] MCHC (RBC) [Mass/Vol] 31.7 g/dL Low 32.0 - 36.0 g/dL [facility] MCV (RBC) [Entitic vol] 75 fL Low 80 - 100 fL [facility] Monocytes (Bld) [#/Vol] 0.51 10*3/uL [facility] Monocytes/100 WBC (Bld) 7.4 % 2.0 - 10.0 % [facility] Neutrophils (Bld) [#/Vol] 5.15 10*3/uL [facility] Neutrophils/100 WBC (Bld) 74.4 % 40.0 - 80.0 % [facility] Nucleated RBC/100 WBC (Bld) [Ratio] 0.0 % [facility] Platelets (Bld) [#/Vol] 237 10*3/uL [facility] RBC (Bld) [#/Vol] 4.20 10*6/uL Low [facility] WBC (Bld) [#/Vol] 6.9 10*3/uL [facility] Basophils (Bld) [#/Vol] 0.01 x10*3/uL Normal 0.00-0.10 [facility] Comment on above: Performed By: #### 5 7021-8 ####SARAH Mcknight ([id number])[facility] ([facility])[address] [place] [address] Basophils/100 WBC (Bld) 0.1 % Normal 0.0-2.0 [facility] Comment on above: Performed By: #### 5 7021-8 ####SARAH Mcknight ([id number])[facility] ([facility])[address] [place] [address] Eosinophils (Bld) [#/Vol] 0.01 x10*3/uL Normal 0.00-0.70 [facility] Comment on above: Performed By: #### 5 7021-8 ####SARAH Mcknight ([id number])[facility] ([facility])[address] [place] [address] Eosinophils/100 WBC (Bld) 0.1 % Normal 0.0-6.0 [facility] Comment on above: Performed By: #### 5 7021-8 ####SARAH Mcknight ([id number])[facility] ([facility])[address] [place] [address] Erythrocyte distribution width (RBC) [Ratio] 18.3 % High 11.5-14.5 [facility] Comment on above: Performed By: #### 5 7021-8 ####SARAH Mcknight ([id number])[facility] ([facility])[address] [place] [address] Hematocrit (Bld) [Volume fraction] 31.5 % Low 41.0-52.0 [facility] Comment on above: Performed By: #### 5 7021-8 ####SARAH Mcknight ([id number])[facility] ([facility])[address] [place] [address] Hemoglobin (Bld) [Mass/Vol] 10.0 g/dL Low 13.5-17.5 [facility] Comment on above: Performed By: #### 5 7021-8 ####SARAH Mcknight ([id number])[facility] ([facility])[address] [place] [address] Immature granulocytes (Bld) [#/Vol] 0.10 x10*3/uL Normal 0.00-0.70 [facility] Comment on above: Performed By: #### 5 7021-8 ####SARAH Mcknight ([id number])[facility] ([facility])[address] [place] [address] Immature granulocytes/100 WBC (Bld) 1.4 % High 0.0-0.9 [facility] Comment on above: Result Comment: Ciera ture Granulocyte Count (IG) includes promyelocytes, myelocytes and metamyelocytes but does not include bands. Percent differential counts (%) should be interpreted in the context of the absolute cell counts (cells/UL). Performed By: #### 5 7021-8 ####SARAH Mcknight ([id number])[facility] ([facility])[address] [place] [address] Lymphocytes (Bld) [#/Vol] 1.15 x10*3/uL Low 1.20-4.80 [facility] Comment on above: Performed By: #### 5 7021-8 ####SARAH Mcknight ([id number])[facility] ([facility])[address] [place] [address] Lymphocytes/100 WBC (Bld) 16.6 % Normal 13.0-44.0 [facility] Comment on above: Performed By: #### 5 7021-8 ####SARAH Mcknight ([id number])[facility] ([facility])[address] [place] [address] MCH (RBC) [Entitic mass] 23.8 pg Low 26.0-34.0 [facility] Comment on above: Performed By: #### 5 7021-8 ####SARAH Mcknight ([id number])[facility] ([facility])[address] [place] [address] MCHC (RBC) [Mass/Vol] 31.7 g/dL Low 32.0-36.0 [facility] Comment on above: Performed By: #### 5 7021-8 ####SARAH Mcknight ([id number])[facility] ([facility])[address] [place] [address] MCV (RBC) [Entitic vol] 75 fL Low 80-100 [facility] Comment on above: Performed By: #### 5 7021-8 ####SARAH Mcknight ([id number])[facility] ([facility])[address] [place] [address] Monocytes (Bld) [#/Vol] 0.51 x10*3/uL Normal 0.10-1.00 [facility] Comment on above: Performed By: #### 5 7021-8 ####SARAH Mcknight ([id number])[facility] ([facility])[address] [place] [address] Monocytes/100 WBC (Bld) 7.4 % Normal 2.0-10.0 [facility] Comment on above: Performed By: #### 5 7021-8 ####SARAH Mcknight ([id number])[facility] ([facility])[address] [place] [address] Neutrophils (Bld) [#/Vol] 5.15 x10*3/uL Normal 1.20-7.70 [facility] Comment on above: Result Comment: Perc ent differential counts (%) should be interpreted in the context of the absolute cell counts (cells/uL). Performed By: #### 5 7021-8 ####SARAH Mcknight ([id number])[facility] ([facility])[address] [place] [address] Neutrophils/100 WBC (Bld) 74.4 % Normal 40.0-80.0 [facility] Comment on above: Performed By: #### 5 7021-8 ####SARAH Mcknight ([id number])[facility] ([facility])[address] [place] [address] Nucleated RBC/100 WBC (Bld) [Ratio] 0.0 /100 WBCs Normal 0.0-0.0 [facility] Comment on above: Performed By: #### 5 7021-8 ####SARAH Mcknight ([id number])[facility] ([facility])[address] [place] [address] Platelets (Bld) [#/Vol] 237 x10*3/uL Normal 150-450 [facility] Comment on above: Performed By: #### 5 7021-8 ####SARAH Mcknight ([id number])[facility] ([facility])[address] [place] [address] RBC (Bld) [#/Vol] 4.20 x10*6/uL Low 4.50-5.90 [facility] Comment on above: Performed By: #### 5 7021-8 ####SARAH Mcknight ([id number])[facility] ([facility])[address] [place] [address] WBC (Bld) [#/Vol] 6.9 x10*3/uL Normal 4.4-11.3 [facility] Comment on above: Performed By: #### 5 7021-8 ####SARAH Mcknight ([id number])[facility] ([facility])[address] [place] [address] Basophils (Bld) [#/Vol] 0.01 10*3/uL [facility] Basophils/100 WBC (Bld) 0.1 % 0.0 - 2.0 % [facility] Eosinophils (Bld) [#/Vol] 0.06 10*3/uL [facility] Eosinophils/100 WBC (Bld) 0.9 % 0.0 - 6.0 % [facility] Erythrocyte distribution width (RBC) [Ratio] 18.9 % High 11.5 - 14.5 % [facility] Hematocrit (Bld) [Volume fraction] 27.3 % Low 41.0 - 52.0 % [facility] Hemoglobin (Bld) [Mass/Vol] 8.8 g/dL Low 13.5 - 17.5 g/dL [facility] Immature granulocytes (Bld) [#/Vol] 0.08 10*3/uL [facility] Immature granulocytes/100 WBC (Bld) 1.2 % High 0.0 - 0.9 % [facility] Interpretation and review of laboratory results Abnormal [facility] Lymphocytes (Bld) [#/Vol] 1.38 10*3/uL [facility] Lymphocytes/100 WBC (Bld) 20.3 % 13.0 - 44.0 % [facility] MCH (RBC) [Entitic mass] 24.4 pg Low 26.0 - 34.0 pg [facility] MCHC (RBC) [Mass/Vol] 32.2 g/dL 32.0 - 36.0 g/dL [facility] MCV (RBC) [Entitic vol] 76 fL Low 80 - 100 fL [facility] Monocytes (Bld) [#/Vol] 0.62 10*3/uL [facility] Monocytes/100 WBC (Bld) 9.1 % 2.0 - 10.0 % [facility] Neutrophils (Bld) [#/Vol] 4.65 10*3/uL [facility] Neutrophils/100 WBC (Bld) 68.4 % 40.0 - 80.0 % [facility] Nucleated RBC/100 WBC (Bld) [Ratio] 0.0 % [facility] Platelets (Bld) [#/Vol] 227 10*3/uL [facility] RBC (Bld) [#/Vol] 3.61 10*6/uL Low [facility] WBC (Bld) [#/Vol] 6.8 10*3/uL [facility] Basophils (Bld) [#/Vol] 0.01 x10*3/uL Normal 0.00-0.10 [facility] Comment on above: Performed By: #### 5 7021-8 ####SARAH Mcknight ([id number])[facility] ([facility])[address] [place] [address] [place] [address] Basophils/100 WBC (Bld) 0.1 % Normal 0.0-2.0 [facility] Comment on above: Performed By: #### 5 7021-8 ####SARAH Mcknight ([id number])[facility] ([facility])[address] [place] [address] Eosinophils (Bld) [#/Vol] 0.06 x10*3/uL Normal 0.00-0.70 [facility] Comment on above: Performed By: #### 5 7021-8 ####SARAH Mcknight ([id number])[facility] ([facility])[address] [place] [address] Eosinophils/100 WBC (Bld) 0.9 % Normal 0.0-6.0 [facility] Comment on above: Performed By: #### 5 7021-8 ####SARAH Mcknight (66684)[facility] ([facility])[address] [place] [address] Erythrocyte distribution width (RBC) [Ratio] 18.9 % High 11.5-14.5 [facility] Comment on above: Performed By: #### 5 7021-8 ####SARAH Mcknight ([id number])[facility] ([facility])[address] [place] [address] Hematocrit (Bld) [Volume fraction] 27.3 % Low 41.0-52.0 [facility] Comment on above: Performed By: #### 5 7021-8 ####SARAH Mcknight ([id number])[facility] ([facility])[address] [place] [address] Hemoglobin (Bld) [Mass/Vol] 8.8 g/dL Low 13.5-17.5 [facility] Comment on above: Performed By: #### 5 7021-8 ####SARAH Mcknight ([id number])[facility] ([facility])[address] [place] [address] Immature granulocytes (Bld) [#/Vol] 0.08 x10*3/uL Normal 0.00-0.70 [facility] Comment on above: Performed By: #### 5 7021-8 ####SARAH Mcknight ([id number])[facility] ([facility])[address] [place] [address] Immature granulocytes/100 WBC (Bld) 1.2 % High 0.0-0.9 [facility] Comment on above: Result Comment: Ciera ture Granulocyte Count (IG) includes promyelocytes, myelocytes and metamyelocytes but does not include bands. Percent differential counts (%) should be interpreted in the context of the absolute cell counts (cells/UL). Performed By: #### 5 7021-8 ####SARAH Mcknight ([id number])[facility] ([facility])[address] [place] [address] Lymphocytes (Bld) [#/Vol] 1.38 x10*3/uL Normal 1.20-4.80 [facility] Comment on above: Performed By: #### 5 7021-8 ####SARAH Mcknight ([id number])[facility] ([facility])[address] [place] [address] Lymphocytes/100 WBC (Bld) 20.3 % Normal 13.0-44.0 [facility] Comment on above: Performed By: #### 5 7021-8 ####SARAH Mcknight ([id number])[facility] ([facility])[address] [place] [address] MCH (RBC) [Entitic mass] 24.4 pg Low 26.0-34.0 [facility] Comment on above: Performed By: #### 5 7021-8 ####SARAH OMER L ([id number])[facility] ([facility])[address]206 [place] [address] MCHC (RBC) [Mass/Vol] 32.2 g/dL Normal 32.0-36.0 [facility] Comment on above: Performed By: #### 5 7021-8 ####SARAH Mcknight ([id number])[facility] ([facility])[address]062 [place] [address] MCV (RBC) [Entitic vol] 76 fL Low 80-100 [facility] Comment on above: Performed By: #### 5 7021-8 ####SARAH Mcknight ([id number])[facility] ([facility])[address] [place] [address] Monocytes (Bld) [#/Vol] 0.62 x10*3/uL Normal 0.10-1.00 [facility] Comment on above: Performed By: #### 5 7021-8 ####SARAH Mcknight ([id number])[facility] ([facility])[address] [place] [address] Monocytes/100 WBC (Bld) 9.1 % Normal 2.0-10.0 [facility] Comment on above: Performed By: #### 5 7021-8 ####SARAH Mcknight ([id number])[facility] ([facility])[address] [place] [address] Neutrophils (Bld) [#/Vol] 4.65 x10*3/uL Normal 1.20-7.70 [facility] Comment on above: Result Comment: Perc ent differential counts (%) should be interpreted in the context of the absolute cell counts (cells/uL). Performed By: #### 5 7021-8 ####SARAH Mcknight ([id number])[facility] ([facility])[address] [place] [address] Neutrophils/100 WBC (Bld) 68.4 % Normal 40.0-80.0 [facility] Comment on above: Performed By: #### 5 7021-8 ####SARAH Mcknight ([id number])[facility] ([facility])[address] [place] [address] Nucleated RBC/100 WBC (Bld) [Ratio] 0.0 /100 WBCs Normal 0.0-0.0 [facility] Comment on above: Performed By: #### 5 7021-8 ####SARAH Mcknight ([id number])[facility] LAB ([facility])[address] [place] [address] Platelets (Bld) [#/Vol] 227 x10*3/uL Normal 150-450 [facility] Comment on above: Performed By: #### 5 7021-8 ####SARAH Mcknight ([id number])[facility] ([facility])[address] [place] [address] RBC (Bld) [#/Vol] 3.61 x10*6/uL Low 4.50-5.90 [facility] Comment on above: Performed By: #### 5 7021-8 ####SARAH Mcknight ([id number])[facility] ([facility])[address] [place] [address] WBC (Bld) [#/Vol] 6.8 x10*3/uL Normal 4.4-11.3 [facility] Comment on above: Performed By: #### 5 7021-8 ####SARAH Mcknight ([id number])[facility] ([facility])[address] [place] [address] Glucose Test strip manual (B ld) [Mass/Vol]on 03-02-2023 Glucose [Mass/Vol] 108 mg/dL High 74 - 99 mg/dL [facility] Interpretation and review of laboratory results Abnormal [facility] Glucose [Mass/Vol] 108 mg/dL High 74-99 [facility] Comment on above: Performed By: #### 2 341-6 ####SARAH Mcknight ([id number])[facility] ([facility])[address] [place] [address] Magnesiumon 03-02-2023 Magnesium [Mass/Vol] 1.75 mg/dL 1.60 - 2.40 mg/dL [facility] Magnesium [Mass/Vol] 1.75 mg/dL Normal 1.60-2.40 [facility] Comment on above: Performed By: #### 1 9123-9 ####SARAH Mcknight ([id number])[facility] ([facility])[address] [place] [address] Magnesium [Mass/Vol]on 03-02 Interpretation and review of laboratory results Normal [facility] No Panel Informationon 03-02 [facility] Prepare RBC: 1 Unitson 03-02 Blood Expiration Date March 21, 2023 2 3:59 EST [facility] Dispense Status TR [facility] PRODUCT BLOOD TYPE 6200 [facility] PRODUCT CODE [id number] [facility] Unit ABO A [facility] Unit Number [id number] [facility] Unit RH Positive [facility] UNIT VOLUME 350 [facility] XM INTEP COMP [facility] Blood Expiration Date March 23, 2023 2 3:59 EST [facility] Dispense Status TR [facility] PRODUCT BLOOD TYPE 6200 [facility] PRODUCT CODE [id number] [facility] Unit ABO A [facility] Unit Number [id number] [facility] Unit RH Positive [facility] UNIT VOLUME 350 [facility] XM INTEP COMP [facility] Renal function 2000 panelon 03-02-2023 Albumin BCP dye [Mass/Vol] 2.2 g/dL Low 3.4 - 5.0 g/dL [facility] Anion gap [Moles/Vol] 11 mmol/L 10 - 2 0 mmol/L [facility] Calcium [Mass/Vol] 9.5 mg/dL 8.6 - 10. 6 mg/dL [facility] Chloride [Moles/Vol] 103 mmol/L 98 - 10 7 mmol/L [facility] CO2 [Moles/Vol] 22 mmol/L 21 - 32 mmol/L [facility] Creatinine [Mass/Vol] 0.50 mg/dL 0.50 - 1.30 mg/dL [facility] GFR/1.73 sq M.predicted MDRD (S/P/Bld) [Vol rate/Area] - PINF [facility] Glucose [Mass/Vol] 79 mg/dL 74 - 99 mg/dL [facility] Interpretation and review of laboratory results Abnormal [facility] Phosphate [Mass/Vol] 1.9 mg/dL Low 2.5 - 4 .9 mg/dL [facility] Potassium [Moles/Vol] 5.3 mmol/L 3.5 - 5.3 mmol/L [facility] Sodium [Moles/Vol] 131 mmol/L Low 136 - 145 mmol/L [facility] Urea nitrogen [Mass/Vol] 9 mg/dL 6 - 23 mg/dL [facility] Albumin BCP dye [Mass/Vol] 2.2 g/dL Low 3.4-5.0 [facility] Comment on above: Performed By: #### 2 4362-6 ####SARAH Mcknight ([id number])[facility] ([facility])[address] [place] [address] Anion gap [Moles/Vol] 11 mmol/L Normal 10-20 [facility] Comment on above: Performed By: #### 2 4362-6 ####SARAH Mcknight ([id number])[facility] ([facility])[address] [place] [address] Calcium [Mass/Vol] 9.5 mg/dL Normal 8.6-10.6 [facility] Comment on above: Performed By: #### 2 4362-6 ####SARAH OMER L ([id number])[facility] ([facility])[address] [place] [address] Chloride [Moles/Vol] 103 mmol/L Normal 98-107 [facility] Comment on above: Performed By: #### 2 4362-6 ####SARAH OMER L ([id number])[facility] ([facility])[address] [place] [address] CO2 [Moles/Vol] 22 mmol/L Normal 21-32 [facility] Comment on above: Performed By: #### 2 4362-6 ####SARAH OMER L ([id number])[facility] ([facility])[address] [place] [address] Creatinine [Mass/Vol] 0.50 mg/dL Normal 0.50-1.30 [facility] Comment on above: Performed By: #### 2 4362-6 ####SARAH Mcknight ([id number])[facility] ([facility])[address] [place] [address] GFR/1.73 sq M.predicted MDRD (S/P/Bld) [Vol rate/Area] mL/min/{1.73_m2} Normal >60 [facility] Comment on above: Result Comment: Calc ulations of estimated GFR are performed using the 2020 CKD-EPI Study Refit equation without the race variable for the IDMS-Traceable creatinine methods.https://jasn.asnjournals.org/content/early//A SN.9443381206 Performed By: #### 2 4362-6 ####SARAH Mcknight ([id number])[facility] ([facility])[address] [place] [address] Glucose [Mass/Vol] 79 mg/dL Normal 74-99 [facility] Comment on above: Performed By: #### 2 4362-6 ####SARAH Mcknight ([id number])[facility] ([facility])[address] [place] [address] Phosphate [Mass/Vol] 1.9 mg/dL Low 2.5-4.9 [facility] Comment on above: Result Comment: The performance characteristics of phosphorus testing in heparinized plasma have been validated by the individual laboratory site where testing is performed. Testing on heparinized plasma is not approved by the FDA; however, such approval is not necessary. Performed By: #### 2 4362-6 ####SARAH Mcknight ([id number])[facility] ([facility])[address] [place] [address] Potassium [Moles/Vol] 5.3 mmol/L Normal 3.5-5.3 [facility] Comment on above: Performed By: #### 2 4362-6 ####SARAH Mcknight ([id number])[facility] ([facility])[address] [place] [address] Sodium [Moles/Vol] 131 mmol/L Low 136-145 [facility] Comment on above: Performed By: #### 2 4362-6 ####SARAH Mcknight ([id number])[facility] ([facility])[address] [place] [address] Urea nitrogen [Mass/Vol] 9 mg/dL Normal - [facility] Comment on above: Performed By: #### 2 4362-6 ####SARAH Mcknight ([id number])[facility] ([facility])[address] [place] [address] Bacteria identified Cx Nom ( Bld)on 03-01-2023 Interpretation and review of laboratory results [facility] Blood type and Indirect anti body screen panel (Bld)on 03-01-2023 ABO group Nom (Bld) A Normal [facility] Comment on above: Performed By: #### 3 4532-2 ####SARAH Mcknight ([id number])[facility] ([facility])[address] [place] [address] Blood group antibody screen Ql Negative [facility] Comment on above: Performed By: #### 3 4532-2 ####SARAH Mcknight ([id number])[facility] ([facility])[address] [place] [address] D Ag Ql (Bld) Positive [facility] Comment on above: Performed By: #### 3 4532-2 ####SARAH Mcknight ([id number])[facility] ([facility])[address] [place] [address] CBC W Auto Differential pane l (Bld)on 03-01-2023 Basophils (Bld) [#/Vol] 0.02 10*3/uL [facility] Basophils/100 WBC (Bld) 0.3 % 0.0 - 2.0 % [facility] Eosinophils (Bld) [#/Vol] 0.04 10*3/uL [facility] Eosinophils/100 WBC (Bld) 0.6 % 0.0 - 6.0 % [facility] Erythrocyte distribution width (RBC) [Ratio] 18.2 % High 11.5 - 14.5 % [facility] Hematocrit (Bld) [Volume fraction] 25.0 % Low 41.0 - 52.0 % [facility] Hemoglobin (Bld) [Mass/Vol] 7.9 g/dL Low 13.5 - 17.5 g/dL [facility] Immature granulocytes (Bld) [#/Vol] 0.07 10*3/uL [facility] Immature granulocytes/100 WBC (Bld) 1.0 % High 0.0 - 0.9 % [facility] Interpretation and review of laboratory results Abnormal [facility] Lymphocytes (Bld) [#/Vol] 1.43 10*3/uL [facility] Lymphocytes/100 WBC (Bld) 21.3 % 13.0 - 44.0 % [facility] MCH (RBC) [Entitic mass] 23.2 pg Low 26.0 - 34.0 pg [facility] MCHC (RBC) [Mass/Vol] 31.6 g/dL Low 32.0 - 36.0 g/dL [facility] MCV (RBC) [Entitic vol] 74 fL Low 80 - 100 fL [facility] Monocytes (Bld) [#/Vol] 0.50 10*3/uL [facility] Monocytes/100 WBC (Bld) 7.4 % 2.0 - 10.0 % [facility] Neutrophils (Bld) [#/Vol] 4.66 10*3/uL [facility] Neutrophils/100 WBC (Bld) 69.4 % 40.0 - 80.0 % [facility] Nucleated RBC/100 WBC (Bld) [Ratio] 0.0 % [facility] Platelets (Bld) [#/Vol] 179 10*3/uL [facility] RBC (Bld) [#/Vol] 3.40 10*6/[facility]L [facility] ([facility]ld[facility] [#/Vol] 6.7 10*3/uL [facility] Basophils (Bld) [#/Vol] 0.02 x10*3/uL Normal 0.00-0.10 [facility] Comment on above: Performed By: #### 5 7021-8 ####SARAH Mcknight ([id number])[facility] ([facility])[address] [place] [address] Basophils/100 WBC (Bld) 0.3 % Normal 0.0-2.0 [facility] Comment on above: Performed By: #### 5 7021-8 ####SARAH OMER L ([id number])[facility] ([facility])[address] [place] [address] Eosinophils (Bld) [#/Vol] 0.04 x10*3/uL Normal 0.00-0.70 [facility] Comment on above: Performed By: #### 5 7021-8 ####SARAH OMER L ([id number])[facility] ([facility])[address] [place] [address] Eosinophils/100 WBC (Bld) 0.6 % Normal 0.0-6.0 [facility] Comment on above: Performed By: #### 5 7021-8 ####SARAH Mcknight ([id number])[facility] ([facility])[address] [place] [address] Erythrocyte distribution width (RBC) [Ratio] 18.2 % High 11.5-14.5 [facility] Comment on above: Performed By: #### 5 7021-8 ####SARAH OMER L ([id number])[facility] ([facility])[address] [place] [address] Hematocrit (Bld) [Volume fraction] 25.0 % Low 41.0-52.0 [facility] Comment on above: Performed By: #### 5 7021-8 ####SARAH OMER L ([id number])[facility] ([facility])[address] [place] [address] Hemoglobin (Bld) [Mass/Vol] 7.9 g/dL Low 13.5-17.5 [facility] Comment on above: Performed By: #### 5 7021-8 ####SARAH Mcknight (77258)[facility] ([facility])[address] [place] [address] Immature granulocytes (Bld) [#/Vol] 0.07 x10*3/uL Normal 0.00-0.70 [facility] Comment on above: Performed By: #### 5 7021-8 ####SARAH Mcknight ([id number])[facility] ([facility])[address] [place] [address] Immature granulocytes/100 WBC (Bld) 1.0 % High 0.0-0.9 [facility] Comment on above: Result Comment: Ciera ture Granulocyte Count (IG) includes promyelocytes, myelocytes and metamyelocytes but does not include bands. Percent differential counts (%) should be interpreted in the context of the absolute cell counts (cells/UL). Performed By: #### 5 7021-8 ####SARAH Mcknight ([id number])[facility] ([facility])[address] [place] [address] Lymphocytes (Bld) [#/Vol] 1.43 x10*3/uL Normal 1.20-4.80 [facility] Comment on above: Performed By: #### 5 7021-8 ####SARAH Mcknight ([id number])[facility] ([facility])[address] [place] [address] Lymphocytes/100 WBC (Bld) 21.3 % Normal 13.0-44.0 [facility] Comment on above: Performed By: #### 5 7021-8 ####SARAH Mcknight ([id number])[facility] ([facility])[address] [place] [address] MCH (RBC) [Entitic mass] 23.2 pg Low 26.0-34.0 [facility] Comment on above: Performed By: #### 5 7021-8 ####SARAH Mcknight ([id number])[facility] ([facility])[address] [place] [address] MCHC (RBC) [Mass/Vol] 31.6 g/dL Low 32.0-36.0 [facility] Comment on above: Performed By: #### 5 7021-8 ####SARAH Mcknight ([id number])[facility] ([facility])[address] [place] [address] MCV (RBC) [Entitic vol] 74 fL Low 80-100 [facility] Comment on above: Performed By: #### 5 7021-8 ####SARAH Mcknight ([id number])[facility] ([facility])[address] [place] [address] Monocytes (Bld) [#/Vol] 0.50 x10*3/uL Normal 0.10-1.00 [facility] Comment on above: Performed By: #### 5 7021-8 ####SARAH Mcknight ([id number])[facility] ([facility])[address] [place] [address] Monocytes/100 WBC (Bld) 7.4 % Normal 2.0-10.0 [facility] Comment on above: Performed By: #### 5 7021-8 ####SARAH Mcknight ([id number])[facility] ([facility])[address] [place] [address] Neutrophils (Bld) [#/Vol] 4.66 x10*3/uL Normal 1.20-7.70 [facility] Comment on above: Result Comment: Perc ent differential counts (%) should be interpreted in the context of the absolute cell counts (cells/uL). Performed By: #### 5 7021-8 ####SARAH Mcknight ([id number])[facility] ([facility])[address] [place] [address] Neutrophils/100 WBC (Bld) 69.4 % Normal 40.0-80.0 [facility] Comment on above: Performed By: #### 5 7021-8 ####SARAH Mcknight ([id number])[facility] ([facility])[address] [place] [address] Nucleated RBC/100 WBC (Bld) [Ratio] 0.0 /100 WBCs Normal 0.0-0.0 [facility] Comment on above: Performed By: #### 5 7021-8 ####SARAH OMER L ([id number])[facility] ([facility])[address] [place] [address] Platelets (Bld) [#/Vol] 179 x10*3/uL Normal 150-450 [facility] Comment on above: Performed By: #### 5 7021-8 ####SARAH Mcknight ([id number])[facility] ([facility])[address] [place] [address] RBC (Bld) [#/Vol] 3.40 x10*6/uL Low 4.50-5.90 [facility] Comment on above: Performed By: #### 5 7021-8 ####SARAH Mcknight ([id number])[facility] ([facility])[address] [place] [address] WBC (Bld) [#/Vol] 6.7 x10*3/uL Normal 4.4-11.3 [facility] Comment on above: Performed By: #### 5 7021-8 ####SARAH Mcknight ([id number])[facility] ([facility])[address] [place] [address] CBC panel Auto (Bld)on 03-01 Erythrocyte distribution width (RBC) [Ratio] 17.9 % High 11.5 - 14.5 % [facility] Hematocrit (Bld) [Volume fraction] 24.3 % Low 41.0 - 52.0 % [facility] Hemoglobin (Bld) [Mass/Vol] 7.7 g/dL Low 13.5 - 17.5 g/dL [facility] Interpretation and review of laboratory results Abnormal [facility] MCH (RBC) [Entitic mass] 23.2 pg Low 26.0 - 34.0 pg [facility] MCHC (RBC) [Mass/Vol] 31.7 g/dL Low 32.0 - 36.0 g/dL [facility] MCV (RBC) [Entitic vol] 73 fL Low 80 - 100 fL [facility] Nucleated RBC/100 WBC (Bld) [Ratio] 0.0 % [facility] Platelets (Bld) [#/Vol] 209 10*3/uL [facility] RBC (Bld) [#/Vol] 3.32 10*6/uL Low [facility] WBC (Bld) [#/Vol] 6.5 10*3/uL [facility] Erythrocyte distribution width (RBC) [Ratio] 17.9 % High 11.5-14.5 [facility] Comment on above: Order Comment: Only do post transfusion- 1 hour post transfusion completion Performed By: #### 5 8410-2 ####SARAH Mcknight ([id number])[facility] ([facility])[address] [place] [address] Hematocrit (Bld) [Volume fraction] 24.3 % Low 41.0-52.0 [facility] Comment on above: Order Comment: Only do post transfusion- 1 hour post transfusion completion Performed By: #### 5 8410-2 ####SRAAH Mcknight ([id number])[facility] ([facility])[address] [place] [address] Hemoglobin (Bld) [Mass/Vol] 7.7 g/dL Low 13.5-17.5 [facility] Comment on above: Order Comment: Only do post transfusion- 1 hour post transfusion completion Performed By: #### 5 8410-2 ####SARAH Mcknight ([id number])[facility] ([facility])[address] [place] [address] MCH (RBC) [Entitic mass] 23.2 pg Low 26.0-34.0 [facility] Comment on above: Order Comment: Only do post transfusion- 1 hour post transfusion completion Performed By: #### 5 8410-2 ####SARAH Mcknight ([id number])[facility] ([facility])[address] [place] [address] MCHC (RBC) [Mass/Vol] 31.7 g/dL Low 32.0-36.0 [facility] Comment on above: Order Comment: Only do post transfusion- 1 hour post transfusion completion Performed By: #### 5 8410-2 ####SARAH Mcknight ([id number])[facility] ([facility])[address] [place] [address] MCV (RBC) [Entitic vol] 73 fL Low 80-100 [facility] Comment on above: Order Comment: Only do post transfusion- 1 hour post transfusion completion Performed By: #### 5 8410-2 ####SARAH Mcknight ([id number])[facility] ([facility])[address] [place] [address] Nucleated RBC/100 WBC (Bld) [Ratio] 0.0 /100 WBCs Normal 0.0-0.0 [facility] Comment on above: Order Comment: Only do post transfusion- 1 hour post transfusion completion Performed By: #### 5 8410-2 ####SARAH Mcknight ([id number])[facility] ([facility])[address] [place] [address] Platelets (Bld) [#/Vol] 209 x10*3/uL Normal 150-450 [facility] Comment on above: Order Comment: Only do post transfusion- 1 hour post transfusion completion Performed By: #### 5 8410-2 ####SARAH Mcknight ([id number])[facility] ([facility])[address] [place] [address] RBC (Bld) [#/Vol] 3.32 x10*6/uL Low 4.50-5.90 [facility] Comment on above: Order Comment: Only do post transfusion- 1 hour post transfusion completion Performed By: #### 5 8410-2 ####SARAH Mcknight ([id number])[facility] ([facility])[address] [place] [address] WBC (Bld) [#/Vol] 6.5 x10*3/uL Normal 4.4-11.3 [facility] Comment on above: Order Comment: Only do post transfusion- 1 hour post transfusion completion Performed By: #### 5 8410-2 ####SARAH Mcknight ([id number])[facility] ([facility])[address] [place] [address] Laboratory - Microbiology an d Antimicrobial susceptibilityon 03-01-2023 Bacteria identified Cx Nom (Bld) No growth at 4 days - FINAL REPORT [facility] Magnesiumon 03-01-2023 Magnesium [Mass/Vol] 1.67 mg/dL 1.60 - 2.40 mg/dL [facility] Magnesium [Mass/Vol] 1.67 mg/dL Normal 1.60-2.40 [facility] Comment on above: Performed By: #### 1 9123-9 ####SARAH Mcknight ([id number])[facility] ([facility])[address] [place] [address] Magnesium [Mass/Vol]on 03-01 Interpretation and review of laboratory results Normal [facility] No Panel Informationon 03-01 [facility] Renal function 2000 panelon 03-01-2023 Albumin BCP dye [Mass/Vol] 2.1 g/dL Low 3.4 - 5.0 g/dL [facility] Anion gap [Moles/Vol] 10 mmol/L 10 - 2 0 mmol/L [facility] Calcium [Mass/Vol] 9.4 mg/dL 8.6 - 10. 6 mg/dL [facility] Chloride [Moles/Vol] 104 mmol/L 98 - 10 7 mmol/L [facility] CO2 [Moles/Vol] 22 mmol/L 21 - 32 mmol/L [facility] Creatinine [Mass/Vol] 0.57 mg/dL 0.50 - 1.30 mg/dL [facility] GFR/1.73 sq M.predicted MDRD (S/P/Bld) [Vol rate/Area] - PINF [facility] Glucose [Mass/Vol] 79 mg/dL 74 - 99 mg/dL [facility] Interpretation and review of laboratory results Abnormal [facility] Phosphate [Mass/Vol] 2.0 mg/dL Low 2.5 - 4 .9 mg/dL [facility] Potassium [Moles/Vol] 4.8 mmol/L 3.5 - 5.3 mmol/L [facility] Sodium [Moles/Vol] 131 mmol/L Low 136 - 145 mmol/L [facility] Urea nitrogen [Mass/Vol] 11 mg/dL 6 - 23 mg/dL [facility] Albumin BCP dye [Mass/Vol] 2.1 g/dL Low 3.4-5.0 [facility] Comment on above: Performed By: #### 2 4362-6 ####SARAH Mcknight ([id number])[facility] ([facility])[address] [place] [address] Anion gap [Moles/Vol] 10 mmol/L Normal 10-20 [facility] Comment on above: Performed By: #### 2 4362-6 ####SARAH Mcknight ([id number])[facility] ([facility])[address] [place] [address] Calcium [Mass/Vol] 9.4 mg/dL Normal 8.6-10.6 [facility] Comment on above: Performed By: #### 2 4362-6 ####SARAH Mcknight (94800)[facility] ([facility])[address] [place] [address] Chloride [Moles/Vol] 104 mmol/L Normal 98-107 [facility] Comment on above: Performed By: #### 2 4362-6 ####SARAH OMER L ([id number])[facility] ([facility])[address] [place] [address] CO2 [Moles/Vol] 22 mmol/L Normal 21-32 [facility] Comment on above: Performed By: #### 2 4362-6 ####SAARH OMER L ([id number])[facility] ([facility])[address] [place] [address] Creatinine [Mass/Vol] 0.57 mg/dL Normal 0.50-1.30 [facility] Comment on above: Performed By: #### 2 4362-6 ####SARAH Mcknight ([id number])[facility] ([facility])[address] [place] [address] GFR/1.73 sq M.predicted MDRD (S/P/Bld) [Vol rate/Area] mL/min/{1.73_m2} Normal >60 [facility] Comment on above: Result Comment: Calc ulations of estimated GFR are performed using the 2020 CKD-EPI Study Refit equation without the race variable for the IDMS-Traceable creatinine methods.https://jasn.asnjournals.org/content/early//A SN.2769296862 Performed By: #### 2 4362-6 ####SARAH Mcknight ([id number])[facility] ([facility])[address] [place] [address] Glucose [Mass/Vol] 79 mg/dL Normal 74-99 [facility] Comment on above: Performed By: #### 2 4362-6 ####SARAH Mcknight ([id number])[facility] ([facility])[address] [place] [address] Phosphate [Mass/Vol] 2.0 mg/dL Low 2.5-4.9 [facility] Comment on above: Result Comment: The performance characteristics of phosphorus testing in heparinized plasma have been validated by the individual laboratory site where testing is performed. Testing on heparinized plasma is not approved by the FDA; however, such approval is not necessary. Performed By: #### 2 4362-6 ####SARAH Mcknight ([id number])[facility] ([facility])[address] [place] [address] Potassium [Moles/Vol] 4.8 mmol/L Normal 3.5-5.3 [facility] Comment on above: Performed By: #### 2 4362-6 ####SARAH Mcknight (93406)[facility] ([facility])[address] [place] [address] Sodium [Moles/Vol] 131 mmol/L Low 136-145 [facility] Comment on above: Performed By: #### 2 4362-6 ####SARAH Mcknight (83033)[facility] ([facility])[address] [place] [address] Urea nitrogen [Mass/Vol] 11 mg/dL Normal 6-23 [facility] Comment on above: Performed By: #### 2 4362-6 ####SARAH Mcknight (82801)[facility] ([facility])[address] [place] [address] Tacrolimuson 03-01-2023 Tacrolimus (Bld) [Mass/Vol] 7.3 ng/mL Normal <=15.0 [facility] Comment on above: Order Comment: NOTE: Result was obtained using achemiluminescent microparticle immunoassay(CMIA) on the [employer] i system.Optimal therapeutic ranges for immunosuppressantdrugs depend upon an individualpatient's current clinical state, type oforgan transplant, time post-transplant,co-administration of other immunosuppressants,and other clinical factors. The results ofthis test should be correlated with additionalclinical and laboratory data before changesin treatment regimens are made. Performed By: #### 1 1253-2 ####SARAH Mcknight ([id number])[facility] ([facility])[address] [place] [address] Tacrolimus (Bld) [Mass/Vol]O rdered By: Manny Gamboa on 03-01-2023 Interpretation and review of laboratory results Normal [facility] Tacrolimus levelOrdered By: Manny Gamboa on 03-01-2023 Tacrolimus (Bld) [Mass/Vol] 7.3 ng/mL NINF - 15.0 ng/mL [facility] Bacteria identified Cx Nom ( Body fld)Ordered By: Serena Elaine on 02-28-2023 Interpretation and review of laboratory results Abnormal [facility] Microscopic observation Gram stain Nom (Unsp spec) (3+) Moderate Polymorphonuclear leukocytes Abnormal [facility] Microscopic observation Gram stain Nom (Unsp spec) Negative Abnormal [facility] CBC panel Auto (Bld)on 02-28 Erythrocyte distribution width (RBC) [Ratio] 18.1 % High 11.5 - 14.5 % [facility] Hematocrit (Bld) [Volume fraction] 22.9 % Low 41.0 - 52.0 % [facility] Hemoglobin (Bld) [Mass/Vol] 7.2 g/dL Low 13.5 - 17.5 g/dL [facility] Interpretation and review of laboratory results Abnormal [facility] MCH (RBC) [Entitic mass] 23.2 pg Low 26.0 - 34.0 pg [facility] MCHC (RBC) [Mass/Vol] 31.4 g/dL Low 32.0 - 36.0 g/dL [facility] MCV (RBC) [Entitic vol] 74 fL Low 80 - 100 fL [facility] Nucleated RBC/100 WBC (Bld) [Ratio] 0.0 % [facility] Platelets (Bld) [#/Vol] 153 10*3/uL [facility] RBC (Bld) [#/Vol] 3.11 10*6/uL [facility] WBC (Bld) [#/Vol] 10.2 10*3/uL [facility] Erythrocyte distribution width (RBC) [Ratio] 18.1 % High 11.5-14.5 [facility] Comment on above: Performed By: #### 5 8410-2 ####SARAH Mcknight ([id number])[facility] ([facility])[address] [place] [address] Hematocrit (Bld) [Volume fraction] 22.9 % Low 41.0-52.0 [facility] Comment on above: Performed By: #### 5 8410-2 ####SARAH Mcknight ([id number])[facility] ([facility])[address] [place] [address] Hemoglobin (Bld) [Mass/Vol] 7.2 g/dL Low 13.5-17.5 [facility] Comment on above: Performed By: #### 5 8410-2 ####SARAH Mcknight ([id number])[facility] ([facility])[address] [place] [address] MCH (RBC) [Entitic mass] 23.2 pg Low 26.0-34.0 [facility] Comment on above: Performed By: #### 5 8410-2 ####SARAH Mcknight ([id number])[facility] ([facility])[address] [place] [address] MCHC (RBC) [Mass/Vol] 31.4 g/dL Low 32.0-36.0 [facility] Comment on above: Performed By: #### 5 8410-2 ####SARAH Mcknight ([id number])[facility] ([facility])[address] [place] [address] MCV (RBC) [Entitic vol] 74 fL Low 80-100 [facility] Comment on above: Performed By: #### 5 8410-2 ####SARAH Mcknight ([id number])[facility] ([facility])[address] [place] [address] Nucleated RBC/100 WBC (Bld) [Ratio] 0.0 /100 WBCs Normal 0.0-0.0 [facility] Comment on above: Performed By: #### 5 8410-2 ####SARAH Mcknight ([id number])[facility] ([facility])[address] [place] [address] Platelets (Bld) [#/Vol] 153 x10*3/uL Normal 150-450 [facility] Comment on above: Performed By: #### 5 8410-2 ####SARAH Mcknight ([id number])[facility] ([facility])[address] [place] [address] RBC (Bld) [#/Vol] 3.11 x10*6/uL Low 4.50-5.90 [facility] Comment on above: Performed By: #### 5 8410-2 ####SARAH Mcknight ([id number])[facility] ([facility])[address] [place] [address] WBC (Bld) [#/Vol] 10.2 x10*3/uL Normal 4.4-11.3 [facility] Comment on above: Performed By: #### 5 8410-2 ####SARAH Mcknight ([id number])[facility] ([facility])[address] [place] [address] Calcium, ionizedon Calcium.ionized (Bld) [Moles/Vol] 1.47 mmol/L High 1.1 - 1.33 mmol/L [facility] Calcium.ionizedon 02-28-2023 Calcium.ionized (Bld) [Moles/Vol] 1.47 mmol/L High 1.1-1.33 [facility] Comment on above: Result Comment: The performance characteristics of ionized calcium testedin heparinized plasma or serum have been validated [facility] where [facility].Testing on heparinized plasma or serum is not approved bythe FDA; however, such approval is not necessary. Performed By: #### 1 994-3 ####SRAAH Mcknight ([id number])[facility] ([facility])[address] [place] [address] Calcium.ionized (Bld) [Moles /Vol]on 02-28-2023 Interpretation and review of laboratory results Abnormal [facility] Glucose Test strip manual (B ld) [Mass/Vol]on 02-28-2023 Glucose [Mass/Vol] 123 mg/dL High 74 - 99 mg/dL [facility] Interpretation and review of laboratory results Abnormal [facility] Glucose [Mass/Vol] 123 mg/dL High 74-99 [facility] Comment on above: Performed By: #### 2 341-6 ####SARAH Mcknight ([id number])[facility] ([facility])[address] [place] [address] Glucose [Mass/Vol] 103 mg/dL High 74 - 99 mg/dL [facility] Interpretation and review of laboratory results Abnormal [facility] Glucose [Mass/Vol] 103 mg/dL High 74-99 [facility] Comment on above: Performed By: #### 2 341-6 ####SARAH Mcknight ([id number])[facility] ([facility])[address] [place] [address] Glucose [Mass/Vol] 78 mg/dL 74 - 99 mg/dL [facility] Interpretation and review of laboratory results Normal [facility] Glucose [Mass/Vol] 78 mg/dL Normal 74-99 [facility] Comment on above: Performed By: #### 2 341-6 ####SARAH Mcknight ([id number])[facility] ([facility])[address] [place] [address]79 Glucose [Mass/Vol] 93 mg/dL 74 - 99 mg/dL [facility] Interpretation and review of laboratory results Normal [facility] Glucose [Mass/Vol] 93 mg/dL Normal 74-99 [facility] Comment on above: Performed By: #### 2 341-6 ####SARAH Mcknight ([id number])[facility] ([facility])[address] [place] [address] Magnesiumon 02-28-2023 Magnesium [Mass/Vol] 1.82 mg/dL 1.60 - 2.40 mg/dL [facility] Magnesium [Mass/Vol] 1.82 mg/dL Normal 1.60-2.40 [facility] Comment on above: Performed By: #### 1 9123-9 ####SARAH Mcknight ([id number])[facility] ([facility])[address] [place] [address] Magnesium [Mass/Vol]on 02-28 Interpretation and review of laboratory results Normal [facility] No Panel Informationon 02-28 [facility] Renal function 2000 panelon 02-28-2023 Albumin BCP dye [Mass/Vol] 1.9 g/dL Low 3.4 - 5.0 g/dL [facility] Anion gap [Moles/Vol] 9 mmol/L Low 10 - 2 0 mmol/L [facility] Calcium [Mass/Vol] 8.7 mg/dL 8.6 - 10. 6 mg/dL [facility] Chloride [Moles/Vol] 105 mmol/L 98 - 10 7 mmol/L [facility] CO2 [Moles/Vol] 22 mmol/L 21 - 32 mmol/L [facility] Creatinine [Mass/Vol] 0.73 mg/dL 0.50 - 1.30 mg/dL [facility] GFR/1.73 sq M.predicted MDRD (S/P/Bld) [Vol rate/Area] - PINF [facility] Glucose [Mass/Vol] 93 mg/dL 74 - 99 mg/dL [facility] Interpretation and review of laboratory results Abnormal [facility] Phosphate [Mass/Vol] 2.5 mg/dL 2.5 - 4 .9 mg/dL [facility] Potassium [Moles/Vol] 4.6 mmol/L 3.5 - 5.3 mmol/L [facility] Sodium [Moles/Vol] 131 mmol/L Low 136 - 145 mmol/L [facility] Urea nitrogen [Mass/Vol] 15 mg/dL 6 - 23 mg/dL [facility] Albumin BCP dye [Mass/Vol] 1.9 g/dL Low 3.4-5.0 [facility] Comment on above: Performed By: #### 2 4362-6 ####SARAH Mcknight ([id number])[facility] ([facility])[address] [place] [address] Anion gap [Moles/Vol] 9 mmol/L Low 10-20 [facility] Comment on above: Performed By: #### 2 4362-6 ####SARAH Mcknight ([id number])[facility] ([facility])[address] [place] [address] Calcium [Mass/Vol] 8.7 mg/dL Normal 8.6-10.6 [facility] Comment on above: Performed By: #### 2 4362-6 ####SARAH Mcknight ([id number])[facility] ([facility])[address] [place] [address] Chloride [Moles/Vol] 105 mmol/L Normal 98-107 [facility] Comment on above: Performed By: #### 2 4362-6 ####SARAH OMER L ([id number])[facility] ([facility])[address] [place] [address] CO2 [Moles/Vol] 22 mmol/L Normal 21-32 [facility] Comment on above: Performed By: #### 2 4362-6 ####SARAH Mcknight ([id number])[facility] ([facility])[address] [place] [address] Creatinine [Mass/Vol] 0.73 mg/dL Normal 0.50-1.30 [facility] Comment on above: Performed By: #### 2 4362-6 ####SARAH Mcknight ([id number])[facility] ([facility])[address] [place] [address] GFR/1.73 sq M.predicted MDRD (S/P/Bld) [Vol rate/Area] mL/min/{1.73_m2} Normal >60 [facility] Comment on above: Result Comment: Calc ulations of estimated GFR are performed using the 2020 CKD-EPI Study Refit equation without the race variable for the IDMS-Traceable creatinine methods.https://jasn.asnjournals.org/content/early//A SN.7053177937 Performed By: #### 2 4362-6 ####SARAH Mcknight ([id number])[facility] ([facility])[address] [place] [address] Glucose [Mass/Vol] 93 mg/dL Normal 74-99 [facility] Comment on above: Performed By: #### 2 4362-6 ####SARAH Mcknight ([id number])[facility] ([facility])[address] [place] [address] Phosphate [Mass/Vol] 2.5 mg/dL Normal 2.5-4.9 [facility] Comment on above: Result Comment: The performance characteristics of phosphorus testing in heparinized plasma have been validated by the individual laboratory site where testing is performed. Testing on heparinized plasma is not approved by the FDA; however, such approval is not necessary. Performed By: #### 2 4362-6 ####SARAH Mcknight ([id number])[facility] ([facility])[address] [place] [address] Potassium [Moles/Vol] 4.6 mmol/L Normal 3.5-5.3 [facility] Comment on above: Performed By: #### 2 4362-6 ####SARAH Mcknight ([id number])[facility] ([facility])[address] [place] [address] Sodium [Moles/Vol] 131 mmol/L Low 136-145 [facility] Comment on above: Performed By: #### 2 4362-6 ####SARAH Mcknight ([id number])[facility] ([facility])[address] [place] [address] Urea nitrogen [Mass/Vol] 15 mg/dL Normal 6-23 [facility] Comment on above: Performed By: #### 2 4362-6 ####SARAH Mcknight ([id number])[facility] ([facility])[address] [place] [address] Sterile Fluid Culture/SmearO rdered By: Serena Elaine on 02-28-2023 Bacteria identified Cx Nom (Body fld) (4+) Abundant Escherichia coli Abnormal [facility] Blood type and Indirect anti body screen panel (Bld)on 02-27-2023 ABO group Nom (Bld) A [facility] Blood group antibody screen Ql Negative [facility] D Ag Ql (Bld) Positive [facility] ABO group Nom (Bld) A Normal [facility] Comment on above: Performed By: #### 3 4532-2 ####SARAH Mcknight ([id number])[facility] ([facility] [place] [address] Blood group antibody screen Ql Negative [facility] Comment on above: Performed By: #### 3 4532-2 ####SARAH Mcknight ([id number])[facility] ([facility])[address] [place] [address] D Ag Ql (Bld) Positive [facility] Comment on above: Performed By: #### 3 4532-2 ####SARAH Mcknight ([id number])[facility] ([facility])[address] [place] [address] CBC panel Auto (Bld)on 02-27 Erythrocyte distribution width (RBC) [Ratio] 17.9 % High 11.5 - 14.5 % [facility] Hematocrit (Bld) [Volume fraction] 24.0 % Low 41.0 - 52.0 % [facility] Hemoglobin (Bld) [Mass/Vol] 7.5 g/dL Low 13.5 - 17.5 g/dL [facility] Interpretation and review of laboratory results Abnormal [facility] MCH (RBC) [Entitic mass] 23.1 pg Low 26.0 - 34.0 pg [facility] MCHC (RBC) [Mass/Vol] 31.3 g/dL Low 32.0 - 36.0 g/dL [facility] MCV (RBC) [Entitic vol] 74 fL Low 80 - 100 fL [facility] Nucleated RBC/100 WBC (Bld) [Ratio] 0.0 % [facility] Platelets (Bld) [#/Vol] 135 10*3/uL Low [facility] RBC (Bld) [#/Vol] 3.25 10*6/uL Low [facility] WBC (Bld) [#/Vol] 10.8 10*3/uL [facility] Erythrocyte distribution width (RBC) [Ratio] 17.9 % High 11.5-14.5 [facility] Comment on above: Order Comment: Next Draw Performed By: #### 5 9237-2 ####SARAH Mcknight ([id number])[facility] ([facility])[address] [place] [address] Hematocrit (Bld) [Volume fraction] 24.0 % Low 41.0-52.0 [facility] Comment on above: Order Comment: Next Draw Performed By: #### 5 8410-2 ####SARAH Mcknight ([id number])[facility] ([facility])[address] [place] [address] Hemoglobin (Bld) [Mass/Vol] 7.5 g/dL Low 13.5-17.5 [facility] Comment on above: Order Comment: Next Draw Performed By: #### 5 8410-2 ####SARAH Mcknight ([id number])[facility] ([facility])[address] [place] [address] MCH (RBC) [Entitic mass] 23.1 pg Low 26.0-34.0 [facility] Comment on above: Order Comment: Next Draw Performed By: #### 5 8410-2 ####SARAH Mcknight ([id number])[facility] ([facility])[address] [place] [address] MCHC (RBC) [Mass/Vol] 31.3 g/dL Low 32.0-36.0 [facility] Comment on above: Order Comment: Next Draw Performed By: #### 5 8410-2 ####SARAH Mckinght (05420)[facility] ([facility])[address] [place] [address] MCV (RBC) [Entitic vol] 74 fL Low 80-100 [facility] Comment on above: Order Comment: Next Draw Performed By: #### 5 8410-2 ####SARAH Mcknight ([id number])[facility] ([facility])[address] [place] [address]48 Nucleated RBC/100 WBC (Bld) [Ratio] 0.0 /100 WBCs Normal 0.0-0.0 [facility] Comment on above: Order Comment: Next Draw Performed By: #### 5 8410-2 ####SARAH Mcknight (54984)[facility] ([facility])[address] [place] [address] Platelets (Bld) [#/Vol] 135 x10*3/uL Low 150-450 [facility] Comment on above: Order Comment: Next Draw Performed By: #### 5 8410-2 ####SARAH Mcknight ([id number])[facility] ([facility])[address] [place] [address] 30863 RBC (Bld) [#/Vol] 3.25 x10*6/uL Low 4.50-5.90 [facility] Comment on above: Order Comment: Next Draw Performed By: #### 5 8410-2 ####SARAH Mcknight ([id number])[facility] ([facility])[address] [place] [address]92 WBC (Bld) [#/Vol] 10.8 x10*3/uL Normal 4.4-11.3 [facility] Comment on above: Order Comment: Next Draw Performed By: #### 5 8410-2 ####SARAH Mcknight ([id number])[facility] ([facility])[address] [place] [address]030 Calcium, ionizedon 3 Calcium.ionized (Bld) [Moles/Vol] 1.41 mmol/L High 1.1 - 1.33 mmol/L [facility] Calcium.ionizedon 02-27-2023 Calcium.ionized (Bld) [Moles/Vol] 1.41 mmol/L High 1.1-1.33 [facility] Comment on above: Result Comment: The performance characteristics of ionized calcium testedin heparinized plasma or serum have been validated by the[facility] where [facility].Testing on heparinized plasma or serum is not approved bythe FDA; however, such approval is not necessary. Performed By: #### 1 994-3 ####SAARH Mcknight ([id number])[facility] ([facility])[address] [place] [address]90 Calcium.ionized (Bld) [Moles /Vol]on 02-27-2023 Interpretation and review of laboratory results Abnormal [facility] Coagulation tissue factor in ducedon 02-27-2023 PT Coag (PPP) [Time] 14.5 s High 9.8-12.8 [facility] Comment on above: Order Comment: Next Draw Performed By: #### 5 902-2 ####SARAH Mcknight ([id number])[facility] ([facility])[address] [place] [address]44[address] Fibrinogenon 02-27-2023 Fibrinogen Coag (PPP) [Mass/Vol] 440 mg/dL High 200 - 400 mg/dL [facility] Fibrinogen Coag (PPP) [Mass/Vol] 440 mg/dL High 200-400 [facility] Comment on above: Performed By: #### 3 255-7 ####SARAH Mcknight ([id number])[facility] ([facility])[address] [place] [address]295 Glucose Test strip manual (B ld) [Mass/Vol]on 02-27-2023 Glucose [Mass/Vol] 132 mg/dL High 74 - 99 mg/dL [facility] Interpretation and review of laboratory results Abnormal [facility] Glucose [Mass/Vol] 132 mg/dL High 74-99 [facility] Comment on above: Performed By: #### 2 341-6 ####SARAH Mcknight ([id number])[facility] ([facility])[address] [place] [address] 93390 Glucose [Mass/Vol] 137 mg/dL High 74 - 99 mg/dL [facility] Interpretation and review of laboratory results Abnormal [facility] Glucose [Mass/Vol] 137 mg/dL High 74-99 [facility] Comment on above: Performed By: #### 2 341-6 ####SARAH Mcknight ([id number])[facility] ([facility])[address] [place] [address] Glucose [Mass/Vol] 116 mg/dL High 74 - 99 mg/dL [facility] Interpretation and review of laboratory results Abnormal [facility] Glucose [Mass/Vol] 116 mg/dL High 74-99 [facility] Comment on above: Performed By: #### 2 341-6 ####SARAH Mcknight ([id number])[facility] ([facility])[address] [place] [address]43 Glucose [Mass/Vol] 104 mg/dL High 74 - 99 mg/dL [facility] Interpretation and review of laboratory results Abnormal [facility] Glucose [Mass/Vol] 104 mg/dL High 74-99 [facility] Comment on above: Performed By: #### 2 341-6 ####SARAH Mcknight ([id number])[facility] ([facility])[address] [place] [address]761 Glucose [Mass/Vol] 108 mg/dL High 74 - 99 mg/dL [facility] Interpretation and review of laboratory results Abnormal [facility] Glucose [Mass/Vol] 108 mg/dL High 74-99 [facility] Comment on above: Performed By: #### 2 341-6 ####SARAH Mcknight ([id number])[facility] ([facility])[address] [place] [address] 30062 Glucose [Mass/Vol] 115 mg/dL High 74 - 99 mg/dL [facility] Interpretation and review of laboratory results Abnormal [facility] Glucose [Mass/Vol] 115 mg/dL High 74-99 [facility] Comment on above: Performed By: #### 2 341-6 ####SARAH Mcknight ([id number])[facility] ([facility])[address] [place] [address] 62773 Heparin Assay, UFHon 12-16-2 023 Heparin unfractionated Chromogenic method Qn (PPP) 0.2 See Comment Below for Therapeutic Ranges IU/mL [facility] Heparin unfractionated Chromogenic method Qn (PPP) 0.3 See Comment Below for Therapeutic Ranges IU/mL [facility] Heparin unfractionated Chromogenic method Qn (PPP) 0.2 See Comment Below for Therapeutic Ranges IU/mL [facility] Heparin unfractionated Chromogenic method Qn (PPP) 0.1 See Comment Below for Therapeutic Ranges IU/mL [facility] Heparin unfractionated Chrom ogenic method Qn (PPP)on 02-27-2023 Interpretation and review of laboratory results Normal [facility] Interpretation and review of laboratory results Normal [facility] Interpretation and review of laboratory results Normal [facility] Interpretation and review of laboratory results Normal [facility] Heparin.unfractionatedon Heparin unfractionated Chromogenic method Qn (PPP) 0.2 IU/mL Normal See Comment Below for Therapeutic Ranges [facility] Comment on above: Order Comment: When two (2) consecutive Heparin Assay, UFH results obtained 4 hours apart are therapeutic, obtain STAT Heparin Assay, UFH every a.m. Nursing to release order.The therapeutic reference range for UFH may be either 0.3-0.6 IU/mL or 0.3-0.7 IU/mL based on the clinical setting for anticoagulant therapy and the associated nomogram used. For Heparin dosing guidelines based on clinical scenario and Heparin Assay results, please refer to local Pharmacy and the [facility] Guidelines for Anticoagulation Therapy available on the [facility] intranet at: [email or web address] Performed By: #### 3 274-8 ####SARAH Mcknight ([id number])[facility] ([facility])[address] [place] [address] Heparin unfractionated Chromogenic method Qn (PPP) 0.3 IU/mL Normal See Comment Below for Therapeutic Ranges [facility] Comment on above: Order Comment: Obtai n 4 hours after any Heparin dosage change. Nursing to release order.The therapeutic reference range for UFH may be either 0.3-0.6 IU/mL or 0.3-0.7 IU/mL based on the clinical setting for anticoagulant therapy and the associated nomogram used. For Heparin dosing guidelines based on clinical scenario and Heparin Assay results, please refer to local Pharmacy and the [facility] Guidelines for Anticoagulation Therapy available on the [facility] intranet at: [email or web address] Performed By: #### 3 274-8 ####SARAH Mcknight ([id number])[facility] ([facility])[address] [place] [address] Heparin unfractionated Chromogenic method Qn (PPP) 0.2 IU/mL Normal See Comment Below for Therapeutic Ranges [facility] Comment on above: Order Comment: Obtai n 4 hours after any Heparin dosage change. Nursing to release order.The therapeutic reference range for UFH may be either 0.3-0.6 IU/mL or 0.3-0.7 IU/mL based on the clinical setting for anticoagulant therapy and the associated nomogram used. For Heparin dosing guidelines based on clinical scenario and Heparin Assay results, please refer to local Pharmacy and the [facility] Guidelines for Anticoagulation Therapy available on the [facility] intranet at: [email or web address] Performed By: #### 3 274-8 ####SARAH Mcknight ([id number])[facility] ([facility])[address] [place], [place] [address] Heparin unfractionated Chromogenic method Qn (PPP) 0.1 IU/mL Normal See Comment Below for Therapeutic Ranges [facility] Comment on above: Order Comment: When two (2) consecutive Heparin Assay, UFH results obtained 4 hours apart are therapeutic, obtain STAT Heparin Assay, UFH every a.m. Nursing to release order.The therapeutic reference range for UFH may be either 0.3-0.6 IU/mL or 0.3-0.7 IU/mL based on the clinical setting for anticoagulant therapy and the associated nomogram used. For Heparin dosing guidelines based on clinical scenario and Heparin Assay results, please refer to local Pharmacy and the [facility] Guidelines for Anticoagulation Therapy available on the [facility] intranet at: [email or web address] Performed By: #### 3 274-8 ####SARAH Mcknight ([id number])[facility] ([facility])[address] [place] [address] Magnesiumon 02-27-2023 Magnesium [Mass/Vol] 1.87 mg/dL 1.60 - 2.40 mg/dL [facility] Magnesium [Mass/Vol] 1.87 mg/dL Normal 1.60-2.40 [facility] Comment on above: Order Comment: Next Draw Performed By: #### 1 9123-9 ####SARAH Mcknight ([id number])[facility] ([facility])[address] [place] [address] Magnesium [Mass/Vol]on 02-27 Interpretation and review of laboratory results Normal [facility] No Panel Informationon 02-27 [facility] Interpretation and review of laboratory results Abnormal [facility] PT Coag (PPP) [Time]on 02-27 INR Coag (PPP) [Relative time] 1.3 {INR} High 0.9 - 1.1 [facility] INR Coag (PPP) [Relative time] 1.3 High 0.9-1.1 [facility] Comment on above: Order Comment: Next Draw Performed By: #### 5 902-2 ####SARAH Mcknight ([id number])[facility] ([facility])[address] [place] [address] Protime-INRon 02-27-2023 PT Coag (PPP) [Time] 14.5 s High [facility] Renal function 2000 panelon 02-27-2023 Albumin BCP dye [Mass/Vol] 2.2 g/dL Low 3.4 - 5.0 g/dL [facility] Anion gap [Moles/Vol] 8 mmol/L Low 10 - 2 0 mmol/L [facility] Calcium [Mass/Vol] 8.9 mg/dL 8.6 - 10. 6 mg/dL [facility] Chloride [Moles/Vol] 102 mmol/L 98 - 10 7 mmol/L [facility] CO2 [Moles/Vol] 22 mmol/L 21 - 32 mmol/L [facility] Creatinine [Mass/Vol] 0.73 mg/dL 0.50 - 1.30 mg/dL [facility] GFR/1.73 sq M.predicted MDRD (S/P/Bld) [Vol rate/Area] - PINF [facility] Glucose [Mass/Vol] 110 mg/dL High 74 - 99 mg/dL [facility] Interpretation and review of laboratory results Abnormal [facility] Phosphate [Mass/Vol] 2.8 mg/dL 2.5 - 4 .9 mg/dL [facility] Potassium [Moles/Vol] 4.4 mmol/L 3.5 - 5.3 mmol/L [facility] Sodium [Moles/Vol] 128 mmol/L Low 136 - 145 mmol/L [facility] Urea nitrogen [Mass/Vol] 19 mg/dL 6 - 23 mg/dL [facility] Albumin BCP dye [Mass/Vol] 2.2 g/dL Low 3.4-5.0 [facility] Comment on above: Performed By: #### 2 4362-6 ####SARAH Mcknight ([id number])[facility] ([facility])[address] [place] [address] Anion gap [Moles/Vol] 8 mmol/L Low 10-20 [facility] Comment on above: Performed By: #### 2 4362-6 ####SARAH Mcknight ([id number])[facility] ([facility])[address] [place] [address] Calcium [Mass/Vol] 8.9 mg/dL Normal 8.6-10.6 [facility] Comment on above: Performed By: #### 2 4362-6 ####SARAH Mcknight ([id number])[facility] ([facility])[address] [place] [address] Chloride [Moles/Vol] 102 mmol/L Normal 98-107 [facility] Comment on above: Performed By: #### 2 4362-6 ####SARAH Mcknight ([id number])[facility] ([facility])[address] [place] [address] CO2 [Moles/Vol] 22 mmol/L Normal 21-32 [facility] Comment on above: Performed By: #### 2 4362-6 ####SARAH Mcknight ([id number])[facility] ([facility])[address] [place] [address] Creatinine [Mass/Vol] 0.73 mg/dL Normal 0.50-1.30 [facility] Comment on above: Performed By: #### 2 4362-6 ####SARAH Mcknight ([id number])[facility] ([facility])[address] [place] [address] GFR/1.73 sq M.predicted MDRD (S/P/Bld) [Vol rate/Area] mL/min/{1.73_m2} Normal >60 [facility] Comment on above: Result Comment: Calc ulations of estimated GFR are performed using the 2020 CKD-EPI Study Refit equation without the race variable for the IDMS-Traceable creatinine methods.https://jasn.asnjournals.org/content//A SN.8936736532 Performed By: #### 2 4362-6 ####SARAH Mcknight ([id number])[facility] ([facility])[address] [place] [address] Glucose [Mass/Vol] 110 mg/dL High 74-99 [facility] Comment on above: Performed By: #### 2 4362-6 ####SARAH Mcknight ([id number])[facility] ([facility])[address] [place] [address] Phosphate [Mass/Vol] 2.8 mg/dL Normal 2.5-4.9 [facility] Comment on above: Result Comment: The performance characteristics of phosphorus testing in heparinized plasma have been validated by the individual laboratory site where testing is performed. Testing on heparinized plasma is not approved by the FDA; however, such approval is not necessary. Performed By: #### 2 4362-6 ####SARAH Mcknight ([id number])[facility] ([facility])[address] [place] [address] Potassium [Moles/Vol] 4.4 mmol/L Normal 3.5-5.3 [facility] Comment on above: Performed By: #### 2 4362-6 ####SARAH Mcknight ([id number])[facility] ([facility])[address] [place] [address] Sodium [Moles/Vol] 128 mmol/L Low 136-145 [facility] Comment on above: Performed By: #### 2 4362-6 ####SARAH Mcknight ([id number])[facility] ([facility])[address] [place] [address] Urea nitrogen [Mass/Vol] 19 mg/dL Normal 6-23 [facility] Comment on above: Performed By: #### 2 4362-6 ####SARAH Mcknight ([id number])[facility] ([facility])[address] [place] [address] TEG Clot Global Profileon Clot angle TEG (Bld) [Angle] 71.0 deg 63.0 - 78.0 deg [facility] Clot formation TEG (Bld) [Time] 1.4 min 0.8 - 2.1 min [facility] Clotting time after addition of heparinase TEG (Bld) 9.4 min High 4.3 - 8.3 min [facility] Clotting time TEG (Bld) 14.2 min High 4.6 - 9.1 min [facility] FLEV 708 mg/dL High 278 - 581 mg/dL [facility] Interpretation and review of laboratory results Abnormal [facility] Maximum clot firmness TEG (Bld) [Length] 65.0 mm 52.0 - 69.0 mm [facility] Maximum clot firmness TEG (Bld) [Length] 69.0 mm 52.0 - 70.0 mm [facility] Maximum clot firmness TEG (Bld) [Length] 39.0 mm High 15.0 - 32.0 mm [facility] THROMBOELASTOGRAPH CLOTTING GLOBAL PROFILEon 02-27-2023 Clot angle TEG (Bld) [Angle] 71.0 deg Normal 63.0-78.0 [facility] Comment on above: Performed By: #### P OCTEGLO ####SARAH Mcknight ([id number])[facility] ([facility])[address] [place] [address] Clot formation TEG (Bld) [Time] 1.4 min Normal 0.8-2.1 [facility] Comment on above: Performed By: #### P OCTEGLO ####SARAH Mcknight ([id number])[facility] ([facility])[address] [place] [address] Clotting time after addition of heparinase TEG (Bld) 9.4 min High 4.3-8.3 [facility] Comment on above: Performed By: #### P OCTEGLO ####SARAH Mcknight ([id number])[facility] ([facility])[address] [place] [address] Clotting time TEG (Bld) 14.2 min High 4.6-9.1 [facility] Comment on above: Performed By: #### P OCTEGLO ####SARAH Mcknight ([id number])[facility] ([facility])[address] [place] [address] Fibrinogen 708 mg/dL High 278-581 [facility] Comment on above: Performed By: #### P OCTEGLO ####SARAH Mcknight ([id number])[facility] ([facility])[address] [place] [address] Maximum clot firmness TEG (Bld) [Length] 69.0 mm Normal 52.0-70.0 [facility] Comment on above: Result Comment: 39.0 Performed By: #### P OCTEGLO ####SARAH Mcknight ([id number])[facility] ([facility])[address] [place] [address] Tacrolimuson 02-27-2023 Tacrolimus (Bld) [Mass/Vol] 9.9 ng/mL Normal <=15.0 [facility] Comment on above: Order Comment: Daily AM drawNOTE: Result was obtained using achemiluminescent microparticle immunoassay(CMIA) on the [employer] i system.Optimal therapeutic ranges for immunosuppressantdrugs depend upon an individualpatient's current clinical state, type oforgan transplant, time post-transplant,co-administration of other immunosuppressants,and other clinical factors. The results ofthis test should be correlated with additionalclinical and laboratory data before changesin treatment regimens are made. Performed By: #### 1 1253-2 ####SARAH Mcknight ([id number])[facility] ([facility])[address] [place] [address] Tacrolimus (Bld) [Mass/Vol]O rdered By: Nhi Umana on 02-27-2023 Interpretation and review of laboratory results [facility] Tacrolimus levelOrdered By: Nhi Umana on 02-27-2023 Tacrolimus (Bld) [Mass/Vol] 9.9 ng/mL NINF - 15.0 ng/mL [facility] Blood type and Indirect anti body screen panel (Bld)on 02-26-2023 ABO group Nom (Bld) A Unive [facility] Blood group antibody screen Ql Negative [facility] D Ag Ql (Bld) Positive [facility] ABO group Nom (Bld) A Normal [facility] Comment on above: Performed By: #### 3 4532-2 ####SARAH Mcknight ([id number])[facility] ([facility] [place] [address] Blood group antibody screen Ql Negative Normal [facility] Comment on above: Performed By: #### 3 4532-2 ####SARAH Mcknight ([id number])[facility] ([facility])[address] [place] [address] D Ag Ql (Bld) Positive Normal [facility] Comment on above: Performed By: #### 3 4532-2 ####SARAH Mcknight ([id number])[facility] ([facility])[address] [place] [address] CBC panel Auto (Bld)on 02-26 Erythrocyte distribution width (RBC) [Ratio] 18.1 % High 11.5 - 14.5 % [facility] Hematocrit (Bld) [Volume fraction] 25.9 % Low 41.0 - 52.0 % [facility] Hemoglobin (Bld) [Mass/Vol] 8.3 g/dL Low 13.5 - 17.5 g/dL [facility] Interpretation and review of laboratory results Abnormal [facility] MCH (RBC) [Entitic mass] 23.8 pg Low 26.0 - 34.0 pg [facility] MCHC (RBC) [Mass/Vol] 32.0 g/dL 32.0 - 36.0 g/dL [facility] MCV (RBC) [Entitic vol] 74 fL Low 80 - 100 fL [facility] Nucleated RBC/100 WBC (Bld) [Ratio] 0.0 % [facility] Platelets (Bld) [#/Vol] 137 10*3/uL Low [facility] RBC (Bld) [#/Vol] 3.49 10*6/uL Low [facility]ive [facility] WBC (Bld) [#/Vol] 13.0 10*3/uL High [facility] Erythrocyte distribution width (RBC) [Ratio] 18.1 % High 11.5-14.5 [facility] Comment on above: Order Comment: Next Draw Performed By: #### 5 8410-2 ####SARAH Mcknight ([id number])[facility] ([facility])[address] [place] [address] Hematocrit (Bld) [Volume fraction] 25.9 % Low 41.0-52.0 [facility] Comment on above: Order Comment: Next Draw Performed By: #### 5 8410-2 ####SARAH Mcknight (65280)[facility] ([facility])[address] [place] [address] Hemoglobin (Bld) [Mass/Vol] 8.3 g/dL Low 13.5-17.5 [facility] Comment on above: Order Comment: Next Draw Performed By: #### 5 8410-2 ####SARAH Mcknight ([id number])[facility] ([facility])[address] [place] [address] MCH (RBC) [Entitic mass] 23.8 pg Low 26.0-34.0 [facility] Comment on above: Order Comment: Next Draw Performed By: #### 5 8410-2 ####SARAH Mcknight ([id number])[facility] ([facility])[address] [place] [address] MCHC (RBC) [Mass/Vol] 32.0 g/dL Normal 32.0-36.0 [facility] Comment on above: Order Comment: Next Draw Performed By: #### 5 8410-2 ####SARAH Mcknight (94436)[facility] ([facility])[address] [place] [address] MCV (RBC) [Entitic vol] 74 fL Low 80-100 [facility] Comment on above: Order Comment: Next Draw Performed By: #### 5 8410-2 ####SARAH Mcknight ([id number])[facility] ([facility])[address] [place] [address] Nucleated RBC/100 WBC (Bld) [Ratio] 0.0 /100 WBCs Normal 0.0-0.0 [facility] Comment on above: Order Comment: Next Draw Performed By: #### 5 8410-2 ####SARAH Mcknight ([id number])[facility] ([facility])[address] [place] [address] Platelets (Bld) [#/Vol] 137 x10*3/uL Low 150-450 [facility] Comment on above: Order Comment: Next Draw Performed By: #### 5 8410-2 ####SARAH Mcknight ([id number])[facility] ([facility])[address] [place] [address] RBC (Bld) [#/Vol] 3.49 x10*6/uL Low 4.50-5.90 [facility] Comment on above: Order Comment: Next Draw Performed By: #### 5 8410-2 ####SARAH Mcknight ([id number])[facility] ([facility])[address] [place] [address] WBC (Bld) [#/Vol] 13.0 x10*3/uL High 4.4-11.3 [facility] Comment on above: Order Comment: Next Draw Performed By: #### 5 8410-2 ####SARAH Mcknight ([id number])[facility] ([facility])[address] [place] [address] Erythrocyte distribution width (RBC) [Ratio] 18.0 % High 11.5 - 14.5 % [facility] Hematocrit (Bld) [Volume fraction] 26.8 % Low 41.0 - 52.0 % [facility] Hemoglobin (Bld) [Mass/Vol] 8.6 g/dL Low 13.5 - 17.5 g/dL [facility] Interpretation and review of laboratory results Abnormal [facility] MCH (RBC) [Entitic mass] 24.1 pg Low 26.0 - 34.0 pg [facility] MCHC (RBC) [Mass/Vol] 32.1 g/dL 32.0 - 36.0 g/dL [facility] MCV (RBC) [Entitic vol] 75 fL Low 80 - 100 fL [facility] Nucleated RBC/100 WBC (Bld) [Ratio] 0.0 % [facility] Platelets (Bld) [#/Vol] 164 10*3/uL [facility] RBC (Bld) [#/Vol] 3.57 10*6/uL Low [facility] WBC (Bld) [#/Vol] 16.2 10*3/uL [facility] Erythrocyte distribution width (RBC) [Ratio] 18.0 % High 11.5-14.5 [facility] Comment on above: Order Comment: Next Draw Performed By: #### 5 8410-2 ####SARAH Mcknight ([id number])[facility] ([facility])[address] [place] [address] Hematocrit (Bld) [Volume fraction] 26.8 % Low 41.0-52.0 [facility] Comment on above: Order Comment: Next Draw Performed By: #### 5 8410-2 ####SARAH Mcknight (37117)[facility] ([facility])[address] [place] [address] Hemoglobin (Bld) [Mass/Vol] 8.6 g/dL Low 13.5-17.5 [facility] Comment on above: Order Comment: Next Draw Performed By: #### 5 8410-2 ####SARAH Mcknight (38893)[facility] ([facility])[address] [place] [address] MCH (RBC) [Entitic mass] 24.1 pg Low 26.0-34.0 [facility] Comment on above: Order Comment: Next Draw Performed By: #### 5 8410-2 ####SARAH Mcknight (24065)[facility] ([facility])[address] [place] [address] MCHC (RBC) [Mass/Vol] 32.1 g/dL Normal 32.0-36.0 [facility] Comment on above: Order Comment: Next Draw Performed By: #### 5 8410-2 ####SARAH Mcknight (46007)[facility] ([facility])[address] [place] [address] MCV (RBC) [Entitic vol] 75 fL Low 80-100 [facility] Comment on above: Order Comment: Next Draw Performed By: #### 5 8410-2 ####SARAH Mcknight ([id number])[facility] ([facility])[address] [place] [address] Nucleated RBC/100 WBC (Bld) [Ratio] 0.0 /100 WBCs Normal 0.0-0.0 [facility] Comment on above: Order Comment: Next Draw Performed By: #### 5 8410-2 ####SARAH Mcknight (11409)[facility] ([facility])[address] [place] [address] Platelets (Bld) [#/Vol] 164 x10*3/uL Normal 150-450 [facility] Comment on above: Order Comment: Next Draw Performed By: #### 5 8410-2 ####SARAH Mcknight ([id number])[facility] ([facility])[address] [place] [address] RBC (Bld) [#/Vol] 3.57 x10*6/uL Low 4.50-5.90 [facility] Comment on above: Order Comment: Next Draw Performed By: #### 5 8410-2 ####SARAH Mcknight (78893)[facility] ([facility])[address] [place] [address] WBC (Bld) [#/Vol] 16.2 x10*3/uL High 4.4-11.3 [facility] Comment on above: Order Comment: Next Draw Performed By: #### 5 8410-2 ####SARAH Mcknight ([id number])[facility] ([facility])[address] [place] [address] Calcium, ionizedon Calcium.ionized (Bld) [Moles/Vol] 1.46 mmol/L High 1.1 - 1.33 mmol/L [facility] Calcium.ionizedon 02-26-2023 Calcium.ionized (Bld) [Moles/Vol] 1.46 mmol/L High 1.1-1.33 [facility] Comment on above: Result Comment: The performance characteristics of ionized calcium testedin heparinized plasma or serum have been [facility].Testing on heparinized plasma or serum is not approved bythe FDA; however, such approval is not necessary. Performed By: #### 1 994-3 ####SARAH Mcknight ([id number])[facility] ([facility])[address] [place] [address] Calcium.ionized (Bld) [Moles /Vol]on 02-26-2023 Interpretation and review of laboratory results Abnormal [facility] Coagulation surface inducedo n 02-26-2023 aPTT Coag (PPP) [Time] 30 s Normal 27-38 Un [facility] Comment on above: Order Comment: Prior to initiating heparin if not obtained in prior 48 hours. Nursing to release order.The APTT is no longer used for monitoring Unfractionated Heparin Therapy. For monitoring Heparin Therapy, use the Heparin Assay. Performed By: #### 1 4979-9 ####SARAH Mcknight ([id number])[facility] ([facility])[address] [place] [address] Coagulation tissue factor in ducedon 02-26-2023 PT Coag (PPP) [Time] 14.9 s High 9.8-12.8 [facility] Comment on above: Order Comment: Next Draw Performed By: #### 5 902-2 ####SARAH Mcknight ([id number])[facility] ([facility])[address] [place] [address] Fibrinogenon 02-26-2023 Fibrinogen Coag (PPP) [Mass/Vol] 470 mg/dL High 200 - 400 mg/dL [facility] Fibrinogen Coag (PPP) [Mass/Vol] 470 mg/dL High 200-400 [facility] Comment on above: Performed By: #### 3 255-7 ####SARAH Mcknight ([id number])[facility] ([facility])[address] [place] [address] Gas panel (BldV)on 3 Anion gap 4 (BldV) [Moles/Vol] 12.0 mmol/L 10.0 - 25.0 mmol/L [facility] Base excess Calc (BldV) [Moles/Vol] -3.0000 mmol/L Low -2.0 - 3.0 mmol/L [facility] Calcium.ionized (BldV) [Moles/Vol] 1.47 mmol/L High 1.10 - 1.33 mmol/L [facility] Chloride (BldV) [Moles/Vol] 99 mmol/L 98 - 107 mmol/L [facility] CO2 (BldV) [Partial pressure] 38 mm[Hg] Low [facility] Glucose [Mass/Vol] 92 mg/dL 74 - 99 mg/dL [facility] HCO3 (Bld) [Moles/Vol] 22.0 mmol/L 22.0 - 26.0 mmol/L [facility] Hematocrit Est (Bld) [Volume fraction] 28.0 % Low 41.0 - 52.0 % [facility] Hemoglobin (Bld) [Mass/Vol] 9.2 g/dL Low 13.5 - 17.5 g/dL [facility] Inhaled oxygen concentration 21 % [facility] Interpretation and review of laboratory results Abnormal [facility] Lactate (BldV) [Moles/Vol] 1.1 mmol/L 0.4 - 2.0 mmol/L [facility] Oxygen (BldV) [Partial pressure] 96 mm[Hg] High [facility] Oxygen saturation in Venous blood 98 % High 45 - 75 % [facility] Oxyhemoglobin (BldV) [Mass fraction] 95.5 % High 45.0 - 75.0 % [facility] pH (BldV) 7.37 [pH] 7.33 - 7.43 pH [facility] Potassium (BldV) [Moles/Vol] 4.6 mmol/L 3.5 - 5.3 mmol/L [facility] Sodium (BldV) [Moles/Vol] 128 mmol/L Low 136 - 145 mmol/L [facility] Anion gap 4 (BldV) [Moles/Vol] 12.0 mmol/L Normal 10.0-25.0 [facility] Comment on above: Performed By: #### 2 4339-4 ####SARAH Mcknight ([id number])[facility] ([facility])[address] [place] [address] Base excess Calc (BldV) [Moles/Vol] -3.0000 mmol/L Low -2.0-3.0 [facility] Comment on above: Performed By: #### 2 4339-4 ####SARAH Mcknight ([id number])[facility] ([facility])[address] [place] [address] Calcium.ionized (BldV) [Moles/Vol] 1.47 mmol/L High 1.10-1.33 [facility] Comment on above: Performed By: #### 2 4339-4 ####SARAH Mcknight (43934)[facility] ([facility])[address] [place] [address] Chloride (BldV) [Moles/Vol] 99 mmol/L Normal 98-107 [facility] Comment on above: Performed By: #### 2 4339-4 ####SARAH Mcknight (75751)[facility] ([facility])[address] [place] [address] CO2 (BldV) [Partial pressure] 38 mm Hg Low 41-51 [facility] Comment on above: Performed By: #### 2 4339-4 ####SARAH Mcknight ([id number])[facility] ([facility])[address] [place] [address] Glucose [Mass/Vol] 92 mg/dL Normal 74-99 [facility] Comment on above: Performed By: #### 2 4339-4 ####SARAH Mcknight ([id number])[facility] ([facility])[address] [place] [address] HCO3 (Bld) [Moles/Vol] 22.0 mmol/L Normal 22.0-26.0 [facility] Comment on above: Performed By: #### 2 4339-4 ####SARAH Mcknight ([id number])[facility] ([facility])[address] [place] [address] Hematocrit Est (Bld) [Volume fraction] 28.0 % Low 41.0-52.0 [facility] Comment on above: Performed By: #### 2 4339-4 ####SARAH Mcknight ([id number])[facility] ([facility])[address] [place] [address] Hemoglobin (Bld) [Mass/Vol] 9.2 g/dL Low 13.5-17.5 [facility] Comment on above: Performed By: #### 2 4339-4 ####SARAH Mcknight (67649)[facility] [place])[address] [place] [address] Inhaled oxygen concentration 21 % Normal [facility] Comment on above: Performed By: #### 2 4339-4 ####SARAH Mcknight ([id number])[facility] ([facility])[id number] [place] [address] Lactate (BldV) [Moles/Vol] 1.1 mmol/L Normal 0.4-2.0 [facility] Comment on above: Performed By: #### 2 4339-4 ####SARAH Mcknight ([id number])[facility] ([facility])[address] [place] [address] Oxygen (BldV) [Partial pressure] 96 mm Hg High 35-45 [facility] Comment on above: Performed By: #### 2 4339-4 ####SARAH Mcknight ([id number])[facility] ([facility])[address] [place] [address] Oxygen saturation in Venous blood 98 % High 45-75 [facility] Comment on above: Performed By: #### 2 4339-4 ####SARAH Mcknight ([id number])[facility] ([facility])[address] [place] [address] Oxyhemoglobin (BldV) [Mass fraction] 95.5 % High 45.0-75.0 [facility] Comment on above: Performed By: #### 2 4339-4 ####SARAH Mcknight ([id number])[facility] ([facility])[address] [place] [address] pH (BldV) 7.37 [pH] Normal 7.33-7.43 [facility] Comment on above: Performed By: #### 2 4339-4 ####SARAH Mcknight ([id number])[facility] ([facility])[address] [place] [address] Potassium (BldV) [Moles/Vol] 4.6 mmol/L Normal 3.5-5.3 [facility] Comment on above: Performed By: #### 2 4339-4 ####SARAH Mcknight ([id number])[facility] ([facility])[address] [place] [address] Sodium (BldV) [Moles/Vol] 128 mmol/L Low 136-145 [facility] Comment on above: Performed By: #### 2 4339-4 ####SARAH Mcknight ([id number])[facility] ([facility])[address] [place] [address] Glucose Test strip manual (B ld) [Mass/Vol]on 02-26-2023 Glucose [Mass/Vol] 141 mg/dL High 74 - 99 mg/dL [facility] Interpretation and review of laboratory results Abnormal [facility] Glucose [Mass/Vol] 141 mg/dL High 74-99 [facility] Comment on above: Performed By: #### 2 341-6 ####SARAH Mcknight ([id number])[facility] ([facility])[address] [place] [address] Glucose [Mass/Vol] 122 mg/dL High 74 - 99 mg/dL [facility] Interpretation and review of laboratory results Abnormal [facility] Glucose [Mass/Vol] 122 mg/dL High 74-99 [facility] Comment on above: Performed By: #### 2 341-6 ####SARAH Mcknight ([id number])[facility] ([facility])[address] [place] [address] Glucose [Mass/Vol] 97 mg/dL 74 - 99 mg/dL [facility] Interpretation and review of laboratory results Normal [facility] Glucose [Mass/Vol] 97 mg/dL Normal 74-99 [facility] Comment on above: Performed By: #### 2 341-6 ####SARAH Mcknight ([id number])[facility] ([facility])[address] [place] [address] Glucose [Mass/Vol] 96 mg/dL 74 - 99 mg/dL [facility] Interpretation and review of laboratory results Normal [facility] Glucose [Mass/Vol] 96 mg/dL Normal 74-99 [facility] Comment on above: Performed By: #### 2 341-6 ####SARAH Mcknight ([id number])[facility] ([facility])[address] [place] [address] Glucose [Mass/Vol] 94 mg/dL 74 - 99 mg/dL [facility] Interpretation and review of laboratory results Normal [facility] Glucose [Mass/Vol] 94 mg/dL Normal 74-99 [facility] Comment on above: Performed By: #### 2 341-6 ####SARAH Mcknight ([id number])[facility] ([facility])[address] [place] [address] Heparin Assay, UFHon 023 Heparin unfractionated Chromogenic method Qn (PPP) 0.1 See Comment Below for Therapeutic Ranges IU/mL [facility] Heparin Assay, UFHOrdered By : Suhail Tabor on 02-26-2023 Heparin unfractionated Chromogenic method Qn (PPP) See Comment Below for Therapeutic Ranges IU/mL [facility] Heparin unfractionated Chrom ogenic method Qn (PPP)on 02-26-2023 Interpretation and review of laboratory results [facility] Heparin unfractionated Chrom ogenic method Qn (PPP)Ordered By: Suhail Tabor on 02-26-2023 Interpretation and review of laboratory results Normal [facility] Heparin.unfractionatedon Heparin unfractionated Chromogenic method Qn (PPP) 0.1 IU/mL Normal See Comment Below for Therapeutic Ranges [facility] Comment on above: Order Comment: Obtai n 4 hours after any Heparin dosage change. Nursing to release order.The therapeutic reference range for UFH may be either 0.3-0.6 IU/mL or 0.3-0.7 IU/mL based on the clinical setting for anticoagulant therapy and the associated nomogram used. For Heparin dosing guidelines based on clinical scenario and Heparin Assay results, please refer to local Pharmacy and the [facility] Guidelines for Anticoagulation Therapy available on the [facility] intranet at: [email or web address] Performed By: #### 3 274-8 ####SARAH Mcknight ([id number])[facility] ([facility])[address] [place] [address] Heparin unfractionated Chromogenic method Qn (PPP) <0.1 Normal See Comment Below for Therapeutic Ranges [facility] Comment on above: Order Comment: Obtai n 4 hours after initiation of heparin infusion. Nursing to release order.The therapeutic reference range for UFH may be either 0.3-0.6 IU/mL or 0.3-0.7 IU/mL based on the clinical setting for anticoagulant therapy and the associated nomogram used. For Heparin dosing guidelines based on clinical scenario and Heparin Assay results, please refer to local Pharmacy and the [facility] Guidelines for Anticoagulation Therapy available on the [facility] intranet at: [email or web address] Performed By: #### 3 274-8 ####SARAH Mcknight ([id number])[facility] ([facility])[address] [place] [address] Laboratory - Coagulationon 1 04-29-2022 Maximum clot firmness TEG (Bld) [Length] 65.0 mm 52.0 - 70.0 mm [facility] Magnesiumon 02-26-2023 Magnesium [Mass/Vol] 2.09 mg/dL 1.60 - 2.40 mg/dL [facility] Magnesium [Mass/Vol] 2.09 mg/dL Normal 1.60-2.40 [facility] Comment on above: Order Comment: Next Draw Performed By: #### 1 9123-9 ####SARAH Mcknight ([id number])[facility] ([facility])[address] [place] [id number] No Panel Informationon 02-26 Interpretation and review of laboratory results Abnormal [facility] Interpretation and review of laboratory results Normal [facility] PT Coag (PPP) [Time]on 02-26 INR Coag (PPP) [Relative time] 1.3 {INR} High 0.9 - 1.1 [facility] INR Coag (PPP) [Relative time] 1.3 High 0.9-1.1 [facility] Comment on above: Order Comment: Next Draw Performed By: #### 5 902-2 ####SARAH Mcknight ([id number])[facility] ([facility])[address] [place] [id number] Protime-INRon 02-26-2023 PT Coag (PPP) [Time] 14.9 s High [facility] Renal function 2000 panelon 02-26-2023 Albumin BCP dye [Mass/Vol] 2.4 g/dL Low 3.4 - 5.0 g/dL [facility] Anion gap [Moles/Vol] 10 mmol/L 10 - 2 0 mmol/L [facility] Calcium [Mass/Vol] 9.6 mg/dL 8.6 - 10. 6 mg/dL [facility] Chloride [Moles/Vol] 103 mmol/L 98 - 10 7 mmol/L [facility] CO2 [Moles/Vol] 23 mmol/L 21 - 32 mmol/L [facility] Creatinine [Mass/Vol] 0.81 mg/dL 0.50 - 1.30 mg/dL [facility] GFR/1.73 sq M.predicted MDRD (S/P/Bld) [Vol rate/Area] - PINF [facility] Glucose [Mass/Vol] 90 mg/dL 74 - 99 mg/dL [facility] Interpretation and review of laboratory results Abnormal [facility] Phosphate [Mass/Vol] 3.0 mg/dL 2.5 - 4 .9 mg/dL [facility] Potassium [Moles/Vol] 4.6 mmol/L 3.5 - 5.3 mmol/L [facility] Sodium [Moles/Vol] 131 mmol/L Low 136 - 145 mmol/L [facility] Urea nitrogen [Mass/Vol] 24 mg/dL High 6 - 23 mg/dL [facility] Albumin BCP dye [Mass/Vol] 2.4 g/dL Low 3.4-5.0 [facility] Comment on above: Performed By: #### 2 4362-6 ####SARAH Mcknight ([id number])[facility] ([facility])[address] [place] [address] Anion gap [Moles/Vol] 10 mmol/L Normal 10-20 [facility] Comment on above: Performed By: #### 2 4362-6 ####SARAH Mcknight ([id number])[facility] ([facility])[address] [place] [address] Calcium [Mass/Vol] 9.6 mg/dL Normal 8.6-10.6 [facility] Comment on above: Performed By: #### 2 4362-6 ####SARAH Mcknight ([id number])[facility] ([facility])[address] [place] [address] Chloride [Moles/Vol] 103 mmol/L Normal 98-107 [facility] Comment on above: Performed By: #### 2 4362-6 ####SARAH Mcknight ([id number])[facility] ([facility])[address] [place] [address] CO2 [Moles/Vol] 23 mmol/L Normal 21-32 [facility] Comment on above: Performed By: #### 2 4362-6 ####SARAH Mcknight ([id number])[facility] ([facility])[address] [place] [address] Creatinine [Mass/Vol] 0.81 mg/dL Normal 0.50-1.30 [facility] Comment on above: Performed By: #### 2 4362-6 ####SARAH Mcknight (65504)[facility] ([facility])[address] [place] [address] GFR/1.73 sq M.predicted MDRD (S/P/Bld) [Vol rate/Area] mL/min/{1.73_m2} Normal >60 [facility] Comment on above: Result Comment: Calc ulations of estimated GFR are performed using the 2020 CKD-EPI Study Refit equation without the race variable for the IDMS-Traceable creatinine methods.https://jasn.asnjournals.org/content//A .8228754156 Performed By: #### 2 4362-6 ####SARAH Mcknight ([id number])[facility] ([facility])[address] [place] [address] Glucose [Mass/Vol] 90 mg/dL Normal 74-99 [facility] Comment on above: Performed By: #### 2 4362-6 ####SARAH Mcknight (86137)[facility] ([facility])[address] [place] [address] Phosphate [Mass/Vol] 3.0 mg/dL Normal 2.5-4.9 [facility] Comment on above: Result Comment: The performance characteristics of phosphorus testing in heparinized plasma have been validated by the individual laboratory site where testing is performed. Testing on heparinized plasma is not approved by the FDA; however, such approval is not necessary. Performed By: #### 2 4362-6 ####SARAH Mcknight ([id number])[facility] ([facility])[address] [place] [address] Potassium [Moles/Vol] 4.6 mmol/L Normal 3.5-5.3 [facility] Comment on above: Performed By: #### 2 4362-6 ####SARAH Mcknight ([id number])[facility] ([facility])[address] [place] [address] Sodium [Moles/Vol] 131 mmol/L Low 136-145 [facility] Comment on above: Performed By: #### 2 4362-6 ####SARAH Mcknight ([id number])[facility] ([facility])[address] [place] [address] Urea nitrogen [Mass/Vol] 24 mg/dL High 6-23 [facility] Comment on above: Performed By: #### 2 4362-6 ####SARAH Mcknight ([id number])[facility] ([facility])[address] [place] [address] TEG Clot Global Profileon Clot angle TEG (Bld) [Angle] 76.0 deg 63.0 - 78.0 deg [facility] Clot formation TEG (Bld) [Time] 1.0 min 0.8 - 2.1 min [facility] Clotting time after addition of heparinase TEG (Bld) 6.2 min 4.3 - 8.3 min [facility] Clotting time TEG (Bld) 7.0 min 4.6 - 9.1 min [facility] FLEV 598 mg/dL High 278 - 581 mg/dL [facility] Interpretation and review of laboratory results Abnormal [facility] Maximum clot firmness TEG (Bld) [Length] 33.0 mm High 15.0 - 32.0 mm [facility] Test Comment [id number] [facility] THROMBOELASTOGRAPH CLOTTING GLOBAL PROFILEon 02-26-2023 Clot angle TEG (Bld) [Angle] 76.0 deg Normal 63.0-78.0 [facility] Comment on above: Performed By: #### P OCTEGLO ####SARAH Mcknight ([id number])[facility] ([facility])[address] [place] [address] Clot formation TEG (Bld) [Time] 1.0 min Normal 0.8-2.1 [facility] Comment on above: Performed By: #### P OCTEGLO ####SARAH Mcknight ([id number])[facility] ([facility])[address] [place] [address] Clotting time after addition of heparinase TEG (Bld) 6.2 min Normal 4.3-8.3 [facility] Comment on above: Performed By: #### P OCTEGLO ####SARAH Mcknight (59049)[facility] ([facility])[address] [place], [place] [address] Clotting time TEG (Bld) 7.0 min Normal 4.6-9.1 [facility] Comment on above: Performed By: #### P OCTEGLO ####SARAH Mcknight ([id number])[facility] ([facility])[address] [place], [place] [address] Fibrinogen 598 mg/dL High 278-581 [facility] Comment on above: Performed By: #### P OCTEGLO ####SARAH Mcknight ([id number])[facility] ([facility])[address] [place] [address] Maximum clot firmness TEG (Bld) [Length] 65.0 mm Normal 52.0-70.0 [facility] Comment on above: Result Comment: 33.0 Performed By: #### P OCTEGLO ####SARAH Mcknight ([id number])[facility] ([facility])[address] [place] [address] TEST COMMENT [id number] Normal [facility] Comment on above: Performed By: #### P OCTEGLO ####SARAH Mcknight ([id number])[facility] ([facility])[address] [place] [address] Tacrolimuson 02-26-2023 Tacrolimus (Bld) [Mass/Vol] 5.5 ng/mL Normal <=15.0 [facility] Comment on above: Order Comment: Daily AM drawNOTE: Result was obtained using achemiluminescent microparticle immunoassay(CMIA) on the [employer] i system.Optimal therapeutic ranges for immunosuppressantdrugs depend upon an individualpatient's current clinical state, type oforgan transplant, time post-transplant,co-administration of other immunosuppressants,and other clinical factors. The results ofthis test should be correlated with additionalclinical and laboratory data before changesin treatment regimens are made. Performed By: #### 1 1253-2 ####SARAH Mcknight ([id number])[facility] ([facility])[address] [place] [address] Tacrolimus (Bld) [Mass/Vol]O rdered By: Yan Zavala on 02-26-2023 Interpretation and review of laboratory results Normal [facility] Tacrolimus levelOrdered By: Yan Zavala on 02-26-2023 Tacrolimus (Bld) [Mass/Vol] 5.5 ng/mL NINF - 15.0 ng/mL [facility] Vancomycinon 02-26-2023 Vancomycin [Mass/Vol] 9.8 ug/mL 5.0 - 20.0 ug/mL [facility] Vancomycin [Mass/Vol] 9.8 ug/mL Normal 5.0-20.0 [facility] Comment on above: Order Comment: Vanco mycin levels can be monitored according to area under the curve (AUC) or concentration (ug/mL). The preferred monitoring strategy is determined by the patient's renal function and indication for therapy.For AUC monitoring, a random vancomycin level should be interpreted in the context of AUC rather than the concentration at a single point in time.For concentration monitoring, a trough concentration drawn immediately prior to the next dose is preferred.Therapeutic ranges using concentration-guided results:Peak (all ages): 30.0-40.0 ug/mLTrough (all ages): 10.0-20.0 ug/mL Performed By: #### 2 0578-1 ####SARAH Mcknight ([id number])[facility] ([facility])[address] [place] [address] Vancomycin [Mass/Vol]on 02-12 [facility] XR Chest Single viewon 02-26 [facility] MMODAL U[facility] MMODAL [facility] Work Phone: XR Chest Single viewOrdered By: Maria Luisa Minaya on 02-26-2023 [facility] Work Phone: aPTT - baselineon 02-26-2023 aPTT Coag (PPP) [Time] [facility] (PPP) [Time]on Interpretation and review of laboratory results Normal [facility] Arterial Puncture/Cannulatio non 02-25-2023 [facility] Work Phone: Arterial Puncture/Cannulatio nOrdered By: Francisco Olson on 02-25-2023 [facility] Work Phone: Bacteria identifiedon 2022 Bacteria identified Cx Nom (Body fld) Abnormal [facility] Comment on above: Performed By: #### 6 11-4 ####SARAH Mcknight ([id number])[facility] ([facility])[address] [place] [address] Bacteria identified Cx Nom (U) Normal [facility] Comment on above: Performed By: #### 6 30-4 ####SARAH Mcknight ([id number])[facility] ([facility])[address] [place] [address] Bacteria identified Cx Nom ( U)Ordered By: Jarrod Couch on 02-25-2023 Interpretation and review of laboratory results Normal [facility] Basic metabolic 2000 panelon 02-25-2023 Anion gap [Moles/Vol] 15 mmol/L 10 - 2 0 mmol/L [facility] Calcium [Mass/Vol] 8.8 mg/dL 8.6 - 10. 6 mg/dL [facility] Chloride [Moles/Vol] 102 mmol/L 98 - 10 7 mmol/L [facility] CO2 [Moles/Vol] 18 mmol/L Low 21 - 32 mmol/L [facility] Creatinine [Mass/Vol] 0.81 mg/dL 0.50 - 1.30 mg/dL [facility] GFR/1.73 sq M.predicted MDRD (S/P/Bld) [Vol rate/Area] - PINF [facility] Glucose [Mass/Vol] 85 mg/dL 74 - 99 mg/dL [facility] Interpretation and review of laboratory results Abnormal [facility] Potassium [Moles/Vol] 4.7 mmol/L 3.5 - 5.3 mmol/L [facility] Sodium [Moles/Vol] 130 mmol/L Low 136 - 145 mmol/L [facility] Urea nitrogen [Mass/Vol] 18 mg/dL 6 - 23 mg/dL [facility] Anion gap [Moles/Vol] 15 mmol/L Normal 10-20 [facility] Comment on above: Order Comment: Next Draw Performed By: #### 2 4321-2 ####SARAH Mcknight ([id number])[facility] ([facility])[address] [place] [address] Calcium [Mass/Vol] 8.8 mg/dL Normal 8.6-10.6 [facility] Comment on above: Order Comment: Next Draw Performed By: #### 2 4321-2 ####SARAH OMER L ([id number])[facility] ([facility])[address] [place] [address] Chloride [Moles/Vol] 102 mmol/L Normal 98-107 [facility] Comment on above: Order Comment: Next Draw Performed By: #### 2 4321-2 ####SARAH MORENOTZRODNEY L ([id number])[facility] ([facility])[address] [place] [address] CO2 [Moles/Vol] 18 mmol/L Low 21-32 [facility] Comment on above: Order Comment: Next Draw Performed By: #### 2 4321-2 ####SARAH OMER L (09580)[facility] ([facility])[address] [place] [address] Creatinine [Mass/Vol] 0.81 mg/dL Normal 0.50-1.30 [facility] Comment on above: Order Comment: Next Draw Performed By: #### 2 4321-2 ####SARAH Mcknight (76997)[facility] ([facility])[address] [place] [address] GFR/1.73 sq M.predicted MDRD (S/P/Bld) [Vol rate/Area] mL/min/{1.73_m2} Normal >60 [facility] Comment on above: Order Comment: Next Draw Result Comment: Calc ulations of estimated GFR are performed using the 2020 CKD-EPI Study Refit equation without the race variable for the IDMS-Traceable creatinine methods.https://jasn.asnjournals.org/content/early//A SN.7364863717 Performed By: #### 2 4321-2 ####SARAH Mcknight ([id number])[facility] ([facility])[address] [place] [address] Glucose [Mass/Vol] 85 mg/dL Normal 74-99 [facility] Comment on above: Order Comment: Next Draw Performed By: #### 2 4321-2 ####SARAH Mcknight ([id number])[facility] ([facility])[address] [place] [address] Potassium [Moles/Vol] 4.7 mmol/L Normal 3.5-5.3 [facility] Comment on above: Order Comment: Next Draw Performed By: #### 2 4321-2 ####SARAH Mcknight (55751)[facility] ([facility])[address] [place] [address] Sodium [Moles/Vol] 130 mmol/L Low 136-145 [facility] Comment on above: Order Comment: Next Draw Performed By: #### 2 4321-2 ####SARAH Mcknight (25479)[facility] ([facility])[address] [place] [address] Urea nitrogen [Mass/Vol] 18 mg/dL Normal 6-23 [facility] Comment on above: Order Comment: Next Draw Performed By: #### 2 4321-2 ####SARAH Mcknight ([id number])[facility] ([facility])[address] [place] [address] CBC panel Auto (Bld)on 02-25 Erythrocyte distribution width (RBC) [Ratio] 18.3 % High 11.5 - 14.5 % [facility] Hematocrit (Bld) [Volume fraction] 34.1 % Low 41.0 - 52.0 % [facility] Hemoglobin (Bld) [Mass/Vol] 10.1 g/dL Low 13.5 - 17.5 g/dL [facility] Interpretation and review of laboratory results Abnormal [facility] MCH (RBC) [Entitic mass] 23.4 pg Low 26.0 - 34.0 pg [facility] MCHC (RBC) [Mass/Vol] 29.6 g/dL Low 32.0 - 36.0 g/dL [facility] MCV (RBC) [Entitic vol] 79 fL Low 80 - 100 fL [facility] Nucleated RBC/100 WBC (Bld) [Ratio] 0.0 % [facility] Platelets (Bld) [#/Vol] 189 10*3/uL [facility] RBC (Bld) [#/Vol] 4.32 10*6/uL Low [facility] WBC (Bld) [#/Vol] 23.8 10*3/uL High [facility] Erythrocyte distribution width (RBC) [Ratio] 18.3 % High 11.5-14.5 [facility] Comment on above: Order Comment: Next Draw Performed By: #### 5 8410-2 ####SARAH Mcknight ([id number])[facility] ([facility])[address] [place] [address] Hematocrit (Bld) [Volume fraction] 34.1 % Low 41.0-52.0 [facility] Comment on above: Order Comment: Next Draw Performed By: #### 5 8410-2 ####SARAH Mcknight (94611)[facility] ([facility])[address] [place] [address] Hemoglobin (Bld) [Mass/Vol] 10.1 g/dL Low 13.5-17.5 [facility] Comment on above: Order Comment: Next Draw Performed By: #### 5 8410-2 ####SARAH Mcknight (95274)[facility] ([facility])[address] [place] [address] MCH (RBC) [Entitic mass] 23.4 pg Low 26.0-34.0 [facility] Comment on above: Order Comment: Next Draw Performed By: #### 5 8410-2 ####SARAH Mcknight (65584)[facility] ([facility])[address] [place] [address] MCHC (RBC) [Mass/Vol] 29.6 g/dL Low 32.0-36.0 [facility] Comment on above: Order Comment: Next Draw Performed By: #### 5 8410-2 ####SARAH Mcknight (07512)[facility] ([facility])[address] [place] [address] MCV (RBC) [Entitic vol] 79 fL Low 80-100 [facility] Comment on above: Order Comment: Next Draw Performed By: #### 5 8410-2 ####SARAH Mcknight ([id number])[facility] ([facility])[address] [place] [address] Nucleated RBC/100 WBC (Bld) [Ratio] 0.0 /100 WBCs Normal 0.0-0.0 [facility] Comment on above: Order Comment: Next Draw Performed By: #### 5 8410-2 ####SARAH Mcknight ([id number])[facility] ([facility])[address] [place] [address] Platelets (Bld) [#/Vol] 189 x10*3/uL Normal 150-450 [facility] Comment on above: Order Comment: Next Draw Performed By: #### 5 8410-2 ####SARAH Mcknight ([id number])[facility] ([facility])[address] [place] [address] RBC (Bld) [#/Vol] 4.32 x10*6/uL Low 4.50-5.90 [facility] Comment on above: Order Comment: Next Draw Performed By: #### 5 8410-2 ####SARAH Mcknight ([id number])[facility] ([facility])[address] [place] [address] WBC (Bld) [#/Vol] 23.8 x10*3/uL High 4.4-11.3 [facility] Comment on above: Order Comment: Next Draw Performed By: #### 5 8410-2 ####SARAH Mcknight ([id number])[facility] ([facility])[address] [place] [address] CT ABDOMEN PELVIS W IV CONTR Sushant 02-25-2023 CT ABDOMEN PELVIS W IV CONTRAST Normal [facility] CT Abdomen and Pelvis W cont rast Sandra 02-25-2023 Radiology Study observation (narrative) [facility] Work Phone: CT CHEST W IV CONTRASTon CT CHEST W IV CONTRAST Normal [facility] CT Chest W contrast Sandra Radiology Study observation (narrative) [facility] Work Phone: Calcium, ionizedon Calcium.ionized (Bld) [Moles/Vol] 1.41 mmol/L High 1.1 - 1.33 mmol/L [facility] Calcium.ionizedon 02-25-2023 Calcium.ionized (Bld) [Moles/Vol] 1.41 mmol/L High 1.1-1.33 [facility] Comment on above: Result Comment: The performance characteristics of ionized calcium testedin heparinized plasma or serum have [facility].Testing on [facility]ized plasma or serum [facility]; however, such approval is not necessary. Performed By: #### 1 994-3 ####SARAH Mcknight ([id number])[facility] ([facility])[address] [place] [address] Calcium.ionized (Bld) [Moles /Vol]on 02-25-2023 Interpretation and review of laboratory results Abnormal [facility] Central Lineon 02-25-2023 [facility] Work Phone: [phone] Central LineOrdered By: Oswaldo Galvan on 02-25-2023 [facility] Work Phone: [phone] Coagulation tissue factor in ducedon 02-25-2023 PT Coag (PPP) [Time] 15.2 s High 9.8-12.8 [facility] Comment on above: Performed By: #### 5 902-2 ####SARAH Mcknight ([id number])[facility] ([facility])[address] [place] [address] ECG 12 leadOrdered By: Dinesh Childress on 02-25-2023 Atrial Rate 105 BPM [facility] Work Phone: [phone] P [place] 23 degrees [facility] Work Phone: [phone] P Offset 181 ms [facility] Work Phone: [phone] P Onset 120 ms [facility] Work Phone: [phone] [place] Interval 190 ms [facility] Work Phone: [phone] Q Onset 215 ms [facility] Work Phone: [phone] QRS Count 17 beats [facility] Work Phone: [phone] QRS Duration 100 ms [facility] Work Phone: [phone] QT Interval 320 ms [facility] Work Phone: [phone] QTC Calculation(Bazett) 422 ms [facility] Work Phone: [phone] QTC Fredericia 385 ms [facility] Work Phone: [phone] R [place] -8 degrees [facility] Work Phone: [phone] T [place] 71 degrees [facility] Work Phone: [phone] T Offset 375 ms [facility] Work Phone: [phone] Ventricular Rate 105 BPM [facility] Work Phone: [phone] [facility] Work Phone: [phone] ECG 12 leadon 02-25-2023 [facility] Work Phone: [phone] Atrial Rate 102 BPM [facility] Work Phone: [phone] P [place] -20 degrees [facility] Work Phone: [phone] P Offset 182 ms [facility] Work Phone: [phone] P Onset 104 ms [facility] Work Phone: [phone] [place] Interval 224 ms [facility] Work Phone: [phone] Q Onset 216 [facility] Work Phone: [phone] QRS Count 17 beats [facility] Work Phone: [phone] QRS Duration 98 ms [facility] Work Phone: [phone] QT Interval 338 ms [facility] Work Phone: [phone] QTC Calculation(Bazett) 440 ms [facility] Work Phone: [phone] QTC Fredericia 403 ms [facility] Work Phone: [phone] R [place] -19 degrees [facility] Work Phone: [phone] T [place] 61 degrees [facility] Work Phone: [phone] T Offset 385 ms [facility] Work Phone: [phone] Ventricular Rate 102 BPM [facility] Work Phone: [phone] [facility] Work Phone: [phone] [facility] Work Phone: [phone] ECG 12-LEADon 02-25-2023 ECG 12-LEAD Ventricular Rate 102 Atrial Rate 102 P-R Interval 224 QRS Duration 98 Q-T Interval 338 QTC Calculation(Bazett) 440 P [place] -20 R [place] -19 T [place] 61 QRS Count 17 Q Onset 216 P Onset 104 P Offset 182 T Offset 385 QTC Fredericia 403 Diagnosis See ED provider note for full interpretation and clinical correlation Confirmed by Kurt Childress ([id number]) on 02/25/2023 5:12:32 AM Normal [facility] Extra Urine Perez Tubeon 02-12 Extra Tube Hold for add-ons. [facility] Fibrinogenon 02-25-2023 Fibrinogen Coag (PPP) [Mass/Vol] 379 mg/dL 200 - 400 mg/dL [facility] Fibrinogen Coag (PPP) [Mass/Vol] 379 mg/dL Normal 200-400 [facility] Comment on above: Performed By: #### 3 255-7 ####SARAH Mcknight ([id number])[facility] ([facility])[address] [place] [address] Fibrinogen Coag (PPP) [Mass/ Vol]on 02-25-2023 Interpretation and review of laboratory results Normal [facility] Gas panel (BldV)on Anion gap 4 (BldV) [Moles/Vol] 10.0 mmol/L 10.0 - 25.0 mmol/L [facility] Base excess Calc (BldV) [Moles/Vol] -6.0000 mmol/L Low -2.0 - 3.0 mmol/L [facility] Calcium.ionized (BldV) [Moles/Vol] 1.42 mmol/L High 1.10 - 1.33 mmol/L [facility] Chloride (BldV) [Moles/Vol] 99 mmol/L 98 - 107 mmol/L [facility] CO2 (BldV) [Partial pressure] 38 mm[Hg] Low [facility] Glucose [Mass/Vol] 92 mg/dL 74 - 99 mg/dL [facility] HCO3 (Bld) [Moles/Vol] 19.6 mmol/L Low 22.0 - 26.0 mmol/L [facility] Hematocrit Est (Bld) [Volume fraction] 29.0 % Low 41.0 - 52.0 % [facility] Hemoglobin (Bld) [Mass/Vol] 9.7 g/dL Low 13.5 - 17.5 g/dL [facility] Inhaled oxygen concentration 0 % [facility] Interpretation and review of laboratory results Abnormal [facility] Lactate (BldV) [Moles/Vol] 3.2 mmol/L High 0.4 - 2.0 mmol/L [facility] Oxygen (BldV) [Partial pressure] 40 mm[Hg] [facility] Oxygen saturation in Venous blood 60 % 45 - 75 % [facility] Oxyhemoglobin (BldV) [Mass fraction] 58.1 % 45.0 - 75.0 % [facility] pH (BldV) 7.32 [pH] Low 7.33 - 7.43 pH [facility] Potassium (BldV) [Moles/Vol] 4.5 mmol/L 3.5 - 5.3 mmol/L [facility] Sodium (BldV) [Moles/Vol] 124 mmol/L Low 136 - 145 mmol/L [facility] Anion gap 4 (BldV) [Moles/Vol] 10.0 mmol/L Normal 10.0-25.0 [facility] Comment on above: Performed By: #### 2 4339-4 ####SARAH Mcknight ([id number])[facility] ([facility])[address] [place] [address] Base excess Calc (BldV) [Moles/Vol] -6.0000 mmol/L Low -2.0-3.0 [facility] Comment on above: Performed By: #### 2 4339-4 ####SARAH Mcknight ([id number])[facility] ([facility])[address] [place] [address] Calcium.ionized (BldV) [Moles/Vol] 1.42 mmol/L High 1.10-1.33 [facility] Comment on above: Performed By: #### 2 4339-4 ####SARAH Mcknight ([id number])[facility] ([facility])[address] [place] [address] Chloride (BldV) [Moles/Vol] 99 mmol/L Normal 98-107 [facility] Comment on above: Performed By: #### 2 4339-4 ####SARAH Mcknight ([id number])[facility] ([facility])[address] [place] [address] CO2 (BldV) [Partial pressure] 38 mm Hg Low 41-51 [facility] Comment on above: Performed By: #### 2 4339-4 ####SARAH Mcknight ([id number])[facility] ([facility])[address] [place] [address] Glucose [Mass/Vol] 92 mg/dL Normal 74-99 [facility] Comment on above: Performed By: #### 2 4339-4 ####SARAH cMknight ([id number])[facility] ([facility])[address] [place] [address] HCO3 (Bld) [Moles/Vol] 19.6 mmol/L Low 22.0-26.0 [facility] Comment on above: Performed By: #### 2 4339-4 ####SARAH Mcknight ([id number])[facility] ([facility])[address] [place] [address] Hematocrit Est (Bld) [Volume fraction] 29.0 % Low 41.0-52.0 [facility] Comment on above: Performed By: #### 2 4339-4 ####SARAH Mcknight ([id number])[facility] ([facility])[address] [place] [address] Hemoglobin (Bld) [Mass/Vol] 9.7 g/dL Low 13.5-17.5 [facility] Comment on above: Performed By: #### 2 4339-4 ####SARAH Mcknight ([id number])[facility] ([facility])[address] [place] [address] Inhaled oxygen concentration 0 % Normal [facility] Comment on above: Performed By: #### 2 4339-4 ####SARAH Mcknight ([id number])[facility] ([facility])[address] [place] [address] Lactate (BldV) [Moles/Vol] 3.2 mmol/L High 0.4-2.0 [facility] Comment on above: Performed By: #### 2 4339-4 ####SARAH Mcknight ([id number])[facility] ([facility])[address] [place] [address] Oxygen (BldV) [Partial pressure] 40 mm Hg Normal 35-45 [facility] Comment on above: Performed By: #### 2 4339-4 ####SARAH Mcknight ([id number])[facility] ([facility])[address] [place] [address] Oxygen saturation in Venous blood 60 % Normal 45-75 [facility] Comment on above: Performed By: #### 2 4339-4 ####SARAH Mcknight ([id number])[facility] ([facility])[address] [place] [address] Oxyhemoglobin (BldV) [Mass fraction] 58.1 % Normal 45.0-75.0 [facility] Comment on above: Performed By: #### 2 4339-4 ####SARAH Mcknight ([id number])[facility] ([facility])[address] [place] [address] pH (BldV) 7.32 [pH] Low 7.33-7.43 [facility] Comment on above: Performed By: #### 2 4339-4 ####SARAH Mcknight ([id number])[facility] ([facility])[address] [place] [address] Potassium (BldV) [Moles/Vol] 4.5 mmol/L Normal 3.5-5.3 [facility] Comment on above: Performed By: #### 2 4339-4 ####SARAH Mcknight ([id number])[facility] ([facility])[address] [place] [address] Sodium (BldV) [Moles/Vol] 124 mmol/L Low 136-145 [facility] Comment on above: Performed By: #### 2 4339-4 ####SARAH Mcknight ([id number])[facility] ([facility])[address] [place] [address] Glucose Test strip manual (B ld) [Mass/Vol]on 02-25-2023 Glucose [Mass/Vol] 90 mg/dL 74 - 99 mg/dL [facility] Interpretation and review of laboratory results Normal [facility] Glucose [Mass/Vol] 90 mg/dL Normal 74-99 [facility] Comment on above: Performed By: #### 2 341-6 ####SARAH Mcknight ([id number])[facility] ([facility])[address] [place] [address] Glucose [Mass/Vol] 101 mg/dL High 74 - 99 mg/dL [facility] Interpretation and review of laboratory results Abnormal [facility] Glucose [Mass/Vol] 101 mg/dL High 74-99 [facility] Comment on above: Performed By: #### 2 341-6 ####SARAH Mcknight ([id number])[facility] ([facility])[address] [place] [address] Glucose [Mass/Vol] 102 mg/dL High 74 - 99 mg/dL [facility] Interpretation and review of laboratory results Abnormal [facility] Glucose [Mass/Vol] 102 mg/dL High 74-99 [facility] Comment on above: Performed By: #### 2 341-6 ####SARAH Mcknight ([id number])[facility] ([facility])[address] [place] [address] Glucose [Mass/Vol] 99 mg/dL 74 - 99 mg/dL [facility] Interpretation and review of laboratory results Normal [facility] Glucose [Mass/Vol] 99 mg/dL Normal 74-99 [facility] Comment on above: Performed By: #### 2 341-6 ####SARAH Mcknight ([id number])[facility] ([facility])[address] [place] [address] Glucose [Mass/Vol] 96 mg/dL 74 - 99 mg/dL [facility] Interpretation and review of laboratory results Normal [facility] Glucose [Mass/Vol] 96 mg/dL Normal 74-99 [facility] Comment on above: Performed By: #### 2 341-6 ####SARAH Mcknight ([id number])[facility] ([facility])[address] [place] [address] Glucose [Mass/Vol] 91 mg/dL 74 - 99 mg/dL [facility] Interpretation and review of laboratory results Normal [facility] Glucose [Mass/Vol] 91 mg/dL Normal 74-99 [facility] Comment on above: Performed By: #### 2 341-6 ####SARAH Mcknight ([id number])[facility] ([facility])[address] [place] [address] Glucose [Mass/Vol] 94 mg/dL 74 - 99 mg/dL [facility] Interpretation and review of laboratory results Normal [facility] Glucose [Mass/Vol] 94 mg/dL Normal 74-99 [facility] Comment on above: Performed By: #### 2 341-6 ####SARAH Mcknight ([id number])[facility] ([facility])[address] [place] [address] Guidance for cholecystostomy of Gallbladderon 02-25-2023 [facility] MMODAL [facility] MMODAL [facility] Work Phone: Radiology Study observation (narrative) [facility] Work Phone: Guidance for cholecystostomy of GallbladderOrdered By: Hernandez Man on 02-25-2023 [facility] Work Phone: Hepatic function 2000 panelo n 02-25-2023 Albumin BCP dye [Mass/Vol] 3.0 g/dL Low 3.4 - 5.0 g/dL [facility] ALP [Catalytic activity/Vol] 89 U/L 33 - 136 U/L [facility] ALT With P-5'-P [Catalytic activity/Vol] 9 U/L Low 10 - 52 U/L [facility] AST With P-5'-P [Catalytic activity/Vol] 27 U/L 9 - 39 U/L [facility] Bilirubin [Mass/Vol] 0.9 mg/dL 0.0 - 1 .2 mg/dL [facility] Bilirubin.direct [Mass/Vol] 0.2 mg/dL 0.0 - 0.3 mg/dL [facility] Interpretation and review of laboratory results Abnormal [facility] Protein [Mass/Vol] 5.9 g/dL Low 6.4 - 8.2 g/dL [facility] ALP [Catalytic activity/Vol] 89 U/L Normal 33-136 [facility] Comment on above: Performed By: #### 2 6665-3 ####SARAH Mcknight ([id number])[facility] ([facility])[address] [place] [address] ALT With P-5'-P [Catalytic activity/Vol] 9 U/L Low 10-52 [facility] Comment on above: Result Comment: Aneta ents treated with Sulfasalazine may generate falsely decreased results for ALT. Performed By: #### 2 4325-3 ####SARAH Mcknight ([id number])[facility] ([facility])[address] [place] [address] AST With P-5'-P [Catalytic activity/Vol] 27 U/L Normal 9-39 [facility] Comment on above: Performed By: #### 2 0725-3 ####SARAH Mcknight ([id number])[facility] ([facility])[address] [place] [address] Bilirubin [Mass/Vol] 0.9 mg/dL Normal 0.0-1.2 [facility] Comment on above: Performed By: #### 2 6785-3 ####SARAH Mcknight (55906)[facility] ([facility])[address] [place] [address] Bilirubin.direct [Mass/Vol] 0.2 mg/dL Normal 0.0-0.3 [facility] Comment on above: Performed By: #### 2 4325-3 ####SARAH Mcknight ([id number])[facility] ([facility])[address] [place] [address] Protein [Mass/Vol] 5.9 g/dL Low 6.4-8.2 [facility] Comment on above: Performed By: #### 2 4325-3 ####SARAH Mcknight ([id number])[facility] ([facility])[address] [place] [address] Magnesiumon 02-25-2023 Magnesium [Mass/Vol] 2.33 mg/dL 1.60 - 2.40 mg/dL [facility] Magnesium [Mass/Vol] 2.33 mg/dL Normal 1.60-2.40 [facility] Comment on above: Order Comment: Next Draw Performed By: #### 1 9123-9 ####SARAH Mcknight ([id number])[facility] ([facility])[address] [place] [address] Magnesium [Mass/Vol]on 02-25 Interpretation and review of laboratory results Normal [facility] No Panel Informationon 02-25 [facility] MMODAL [facility] MMODAL [facility] Work Phone: [facility] Work Phone: Interpretation and review of laboratory results Abnormal [facility] PT Coag (PPP) [Time]on 02-25 INR Coag (PPP) [Relative time] 1.3 {INR} High 0.9 - 1.1 [facility] Interpretation and review of laboratory results Abnormal [facility] INR Coag (PPP) [Relative time] 1.3 High 0.9-1.1 [facility] Comment on above: Performed By: #### 5 902-2 ####SARAH Mcknight ([id number])[facility] ([facility])[address] [place] [address] Protime-INRon 02-25-2023 PT Coag (PPP) [Time] 15.2 s High [facility] Renal function 2000 panelon 02-25-2023 Albumin BCP dye [Mass/Vol] 3.0 g/dL Low 3.4 - 5.0 g/dL [facility] Anion gap [Moles/Vol] 16 mmol/L 10 - 2 0 mmol/L [facility] Calcium [Mass/Vol] 9.9 mg/dL 8.6 - 10. 6 mg/dL [facility] Chloride [Moles/Vol] 97 mmol/L Low 98 - 10 7 mmol/L [facility] CO2 [Moles/Vol] 21 mmol/L 21 - 32 mmol/L [facility] Creatinine [Mass/Vol] 1.04 mg/dL 0.50 - 1.30 mg/dL [facility] GFR/1.73 sq M.predicted MDRD (S/P/Bld) [Vol rate/Area] 79 mL/min/{1.73_m2} - PINF [facility] Glucose [Mass/Vol] 55 mg/dL Critically low 74 - 99 mg/dL [facility] Interpretation and review of laboratory results Abnormal [facility] Phosphate [Mass/Vol] 3.2 mg/dL 2.5 - 4 .9 mg/dL [facility] Potassium [Moles/Vol] 5.0 mmol/L 3.5 - 5.3 mmol/L [facility] Sodium [Moles/Vol] 129 mmol/L Low 136 - 145 mmol/L [facility] Urea nitrogen [Mass/Vol] 20 mg/dL 6 - 23 mg/dL [facility] Albumin BCP dye [Mass/Vol] 3.0 g/dL Low 3.4-5.0 [facility] Comment on above: Performed By: #### 2 4362-6 ####SARAH Mcknight ([id number])[facility] ([facility])[address] [place] [address] Performed By: #### 2 4325-3 ####SARAH Mcknight ([id number])[facility] ([facility])[address] [place] [address] Anion gap [Moles/Vol] 16 mmol/L Normal 10-20 [facility] Comment on above: Performed By: #### 2 4362-6 ####SARAH OMER L ([id number])[facility] ([facility])[address] [place] [address] Calcium [Mass/Vol] 9.9 mg/dL Normal 8.6-10.6 [facility] Comment on above: Performed By: #### 2 4362-6 ####SARAH Mcknight ([id number])[facility] ([facility])[address] [place] [address] Chloride [Moles/Vol] 97 mmol/L Low 98-107 [facility] Comment on above: Performed By: #### 2 4362-6 ####SARAH OMER L ([id number])[facility] ([facility])[address] [place] [address] CO2 [Moles/Vol] 21 mmol/L Normal 21-32 [facility] Comment on above: Performed By: #### 2 4362-6 ####SARAH OMER L ([id number])[facility] ([facility])[address] [place] [address] Creatinine [Mass/Vol] 1.04 mg/dL Normal 0.50-1.30 [facility] Comment on above: Performed By: #### 2 4362-6 ####SARAH OMER L ([id number])[facility] ([facility])[address] [place] [address] GFR/1.73 sq M.predicted MDRD (S/P/Bld) [Vol rate/Area] 79 mL/min/1.73m*2 Normal >60 [facility] Comment on above: Result Comment: Calc ulations of estimated GFR are performed using the 2020 CKD-EPI Study Refit equation without the race variable for the IDMS-Traceable creatinine methods.https://jasn.asnjournals.org/content//A SN.2550480599 Performed By: #### 2 4362-6 ####SARAH Mcknight ([id number])[facility] ([facility])[address] [place] [address] Glucose [Mass/Vol] 55 mg/dL Critically low 74-99 [facility] Comment on above: Performed By: #### 2 4362-6 ####SARAH Mcknight ([id number])[facility] ([facility])[address] [place] [address] Phosphate [Mass/Vol] 3.2 mg/dL Normal 2.5-4.9 [facility] Comment on above: Result Comment: The performance characteristics of phosphorus testing in heparinized plasma have been validated by the individual laboratory site where testing is performed. Testing on heparinized plasma is not approved by the FDA; however, such approval is not necessary. Performed By: #### 2 4362-6 ####SARAH Mcknight ([id number])[facility] ([facility])[address] [place] [address] Potassium [Moles/Vol] 5.0 mmol/L Normal 3.5-5.3 [facility] Comment on above: Performed By: #### 2 4362-6 ####SARAH Mcknight ([id number])[facility] ([facility])[address] [place] [address] Sodium [Moles/Vol] 129 mmol/L Low 136-145 [facility] Comment on above: Performed By: #### 2 4362-6 ####SARAH Mcknight ([id number])[facility] ([facility])[address] [place] [address] Urea nitrogen [Mass/Vol] 20 mg/dL Normal 6-23 [facility] Comment on above: Performed By: #### 2 4362-6 ####SARAH Mcknight ([id number])[facility] ([facility])[address] [place] [address] TRANSTHORACIC ECHO (TTE) HUDSON ITEDon 02-25-2023 TRANSTHORACIC ECHO (TTE) LIMITED Normal [facility] Tacrolimuson 02-25-2023 Tacrolimus (Bld) [Mass/Vol] 4.5 ng/mL Normal <=15.0 [facility] Comment on above: Order Comment: NOTE: Result was obtained using achemiluminescent microparticle immunoassay(CMIA) on the [employer] i system.Optimal therapeutic ranges for immunosuppressantdrugs depend upon an individualpatient's current clinical state, type oforgan transplant, time post-transplant,co-administration of other immunosuppressants,and other clinical factors. The results ofthis test should be correlated with additionalclinical and laboratory data before changesin treatment regimens are made. Performed By: #### 1 1253-2 ####SARAH Mcknight ([id number])[facility] ([facility])[address] [place] [address] Tacrolimus (Bld) [Mass/Vol]O rdered By: Ricky Bravo on 02-25-2023 Interpretation and review of laboratory results Normal [facility] Tacrolimus levelOrdered By: Ricky Bravo on 02-25-2023 Tacrolimus (Bld) [Mass/Vol] 4.5 ng/mL NINF - 15.0 ng/mL [facility] Tropinin I.cardiac panel Hig h sensitivity methodon 02-25-2023 Interpretation and review of laboratory results Abnormal [facility] Interpretation and review of laboratory results Abnormal [facility] Troponin I, High Sensitivity on 02-25-2023 Tropinin I.cardiac panel High sensitivity method 5973 ng/L Critically high 0 - 53 ng/L [facility] Tropinin I.cardiac panel High sensitivity method 6518 ng/L Critically high 0 - 53 ng/L [facility] Troponin I.cardiac panelon 1 04-28-2022 Tropinin I.cardiac panel High sensitivity method 5973 ng/L Critically high 0-53 [facility] Comment on above: Order Comment: Less than 99th percentile of normal range cutoff-Female and children under 18 years old <35 ng/L; Male <54 ng/L: NegativeRepeat testing should be performed if clinically indicated.Female and children under 18 years old 35-120 ng/L; Male 54-120 ng/L:Consistent with possible cardiac damage and possible increased clinicalrisk. Serial measurements may help to assess extent of myocardial damage.>120 ng/L: Consistent with cardiac damage, increased clinical risk andmyocardial infarction. Serial measurements may help assess extent ofmyocardial damage.NOTE: Children less than 1 year old may have higher baseline troponinlevels and results should be interpreted in conjunction with the overallclinical context.NOTE: Troponin I testing is performed using a differenttesting methodology [facility] than at [facility]. Direct result comparisons should onlybe made within the same method. Result Comment: Prev ious result verified on 02/24/20232241 on specimen/case [id number] called with component [facility] for procedure Troponin I, High Sensitivity with value 6,669 ng/L. Performed By: #### 8 9577-1 ####SARAH Mcknight ([id number])[facility] ([facility])[address] [place] [address] US GUIDED PERCUTANEOUS KERLINE CYSTOSTOMYon 02-25-2023 US GUIDED PERCUTANEOUS CHOLECYSTOSTOMY Normal [facility] Comment on above: Order Comment: PHIL andujar percutaneous cholecystotomy tube placement. US Heart TransthoracicOrdere d By: Vincent Bliss on 02-25-2023 Aortic Valve Area by Continuity of Peak Velocity 2.99 [facility] Work Phone: [phone] Aortic Valve Area by Continuity of VTI 3.15 [facility] Work Phone: [phone] AV mn grad 8.0 [facility] Work Phone: [phone] AV pk grad 19.0 [facility] Work Phone: [phone] AV pk dav 2.18 [facility] Work Phone: [phone] LV A4C EF 53.0 [facility] Work Phone: [phone] LV biplane EF 54 [facility] Work Phone: LVIDd 6.60 [facility] Work Phone: LVOT diam 2.30 [facility] Work Phone: MV E/A ratio 1.25 [facility] Work Phone: RVSP 39.5 [facility] Work Phone: [facility] Work Phone: US Heart Transthoracicon SYNGO [facility] Work Phone: Urinalysis complete W Reflex Culture panel (U)on 02-25-2023 Appearance (U) Hazy Abnormal Clear [facility] Bilirubin (U) [Mass/Vol] Negative NEGATIVE [facility] Color (U) Nena Abnormal Straw, Yellow [facility] Glucose Auto test strip (U) [Mass/Vol] Negative NEGATIVE mg/dL [facility] Ketones (U) [Mass/Vol] Negative NEGAT EVY mg/dL [facility] Leukocyte esterase Auto test strip Ql (U) SMALL (1+) Abnormal NEGATIVE [facility] Nitrite Auto test strip Ql (U) Negative NEGATIVE [facility] pH (U) 5.0 [pH] 5.0, 5.5, 6.0, 6.5, 7.0, 7.5, 8.0 [facility] Protein (U) [Mass/Vol] 30 (1+) Abnormal NEGAT EVY mg/dL [facility] RBC (U) [#/Vol] Negative NEGATIVE [facility] Specific gravity (U) [Rel density] 1.020 1.005 - 1.035 [facility] Urobilinogen (U) [Mass/Vol] 2.0 mg/dL Abnormal NINF - 2.0 mg/dL [facility] Appearance (U) Hazy Normal Clear [facility] Comment on above: Performed By: #### 5 8077-9 ####SARAH Mcknight ([id number])[facility] ([facility])[address] [place] [address] Bilirubin (U) [Mass/Vol] Negative Normal NEGATIVE [facility] Comment on above: Performed By: #### 5 8077-9 ####SARAH Mcknight ([id number])[facility] ([facility])[address] [facility] [place] [address] Color (U) Nena Normal Straw, Yellow [facility] Comment on above: Performed By: #### 5 8077-9 ####SARAH Mcknight ([id number])[facility] ([facility])[address] [place] [address] Glucose Auto test strip (U) [Mass/Vol] Negative Normal NEGATIVE [facility] Comment on above: Performed By: #### 5 8077-9 ####SARAH Mcknight ([id number])[facility] ([facility])[address] [place] [address] Ketones (U) [Mass/Vol] Negative Normal NEGATIVE Un [facility] Comment on above: Performed By: #### 5 8077-9 ####SARAH Mcknight ([id number])[facility] ([facility])[address] [facility] [place] [address] Leukocyte esterase Auto test strip Ql (U) SMALL (1+) Abnormal NEGATIVE [facility] Comment on above: Performed By: #### 5 8077-9 ####SARAH Mcknight ([id number])[facility] ([facility])[address] [place] [address] Nitrite Auto test strip Ql (U) Negative Normal NEGATIVE [facility] Comment on above: Performed By: #### 5 8077-9 ####SARAH Mcknight (54504)[facility] ([facility])[address] [place] [address] pH (U) 5.0 [pH] Normal 5.0, 5.5, 6.0, 6.5, 7.0, 7.5, 8.0 [facility] Comment on above: Performed By: #### 5 8077-9 ####SARAH Mcknight ([id number])[facility] ([facility])[address] [place] [address] Protein (U) [Mass/Vol] 30 (1+) Normal NEGATIVE [facility] Comment on above: Performed By: #### 5 8077-9 ####SARAH Mcknight ([id number])[facility] ([facility])[address] [place] [address] RBC (U) [#/Vol] Negative Normal NEGATIVE [facility] Comment on above: Performed By: #### 5 8077-9 ####SARAH Mcknight ([id number])[facility] ([facility])[address] [place] [address] Specific gravity (U) [Rel density] 1.020 Normal 1.005-1.035 [facility] Comment on above: Performed By: #### 5 8077-9 ####SARAH Mcknight ([id number])[facility] ([facility])[address] [place] [address] Urobilinogen (U) [Mass/Vol] 2.0 mg/dL Normal <2.0 [facility] Comment on above: Result Comment: Due to a manufacturing issue, low positive urobilinogen results may be falsely positive. Correlate with urine bilirubin and additional clinical/laboratory findings to assess the risk of hemolytic anemia or liver disease. If clinically indicated, repeat testing with an alternate method is available by contacting the laboratory within 24 hours.Some pigments and medications may cause a false positive urobilinogen. Performed By: #### 5 8077-9 ####SARAH Mcknight (78327)[facility] ([facility])[address] [place] [address] Urinalysis microscopic panel Auto Ql (U)on 02-25-2023 Mucus Auto (Urine sed) [#/Area] 2+ Reference range not established. /LPF [facility] RBC Auto (Urine sed) [#/Area] 3-5 NONE, 1-2, 3-5 /HPF [facility] WBC Auto (Urine sed) [#/Area] 21-50 Abnormal 1-5, NONE /HPF [facility] Yeast.budding Computer assisted (U) [#/Area] PRESENT Abnormal NONE /HPF [facility] Mucus Auto (Urine sed) [#/Area] 2+ /LPF Normal Reference range not established. [facility] Comment on above: Performed By: #### 5 3315-8 ####SARAH Mcknight ([id number])[facility] ([facility])[address] [place] [address] RBC Auto (Urine sed) [#/Area] 3-5 Normal NONE, 1-2, 3-5 [facility] Comment on above: Performed By: #### 5 7035-8 ####SARAH Mcknight (99950)[facility] ([facility])[address] [place] [address] WBC Auto (Urine sed) [#/Area] 21-50 Abnormal 1-5, NONE [facility] Comment on above: Performed By: #### 5 9785-8 ####SARAH Mcknight ([id number])[facility] ([facility])[address] [place] [address] Yeast.budding Computer assisted (U) [#/Area] PRESENT Abnormal NONE [facility] Comment on above: Performed By: #### 5 2725-8 ####SARAH Mcknight ([id number])[facility] ([facility])[address] [place] [address] Urine CultureOrdered By: Zackary Couch on 02-25-2023 Bacteria identified Cx Nom (U) No growth [facility] XR CHEST 1 VIEWon 02-25-2023 XR CHEST 1 VIEW Normal [facility] XR Chest Single viewon 02-25 Radiology Study observation (narrative) [facility] Work Phone: Auto Diffon 02-24-2023 Basophils/100 WBC (Bld) 0.2 % Normal 0.0-2.0 [facility] Comment on above: Order Comment: Order Added by Discern Expert. Performed By: #### 2 483466, 10563943, 2899369, 3077720, 63537560, 60914071, 80056388, 7818961, 0098667 ####[address] [place] [address] Basophils/Leukocytes Auto (Bld) [Pure # fraction] 0.0 E9/L Normal 0.0-0.2 [facility] Comment on above: Order Comment: Order Added by Discern Expert. Performed By: #### 2 946592, 89302719, 6005260, 9936004, 57744273, 58502122, 07244193, 0856402, 4691846 ####[address] [place] [address] Eosinophils/100 WBC (Bld) 0.1 % Normal 0.0-8.0 [facility] Comment on above: Order Comment: Order Added by Discern Expert. Performed By: #### 2 247914, 78666380, 1116691, 7074153, 75959530, 39854418, 54562697, 4962762, 9186947 ####[address] [address] Eosinophils/Leukocytes Auto (Bld) [Pure # fraction] 0.0 E9/L Normal 0.0-0.5 [facility] Comment on above: Order Comment: Order Added by Discern Expert. Performed By: #### 2 226377, 18781548, 6494430, 3398592, 34741729, 32761448, 83358686, 1843432, 1003523 ####[address] [place] [address] Lymphocytes/100 WBC (Bld) 1.8 % Low 14.0-50.0 [facility] Comment on above: Order Comment: Order Added by Discern Expert. Performed By: #### 2 262560, 36306766, 2440065, 2434608, 52065874, 30194801, 17499541, 3291947, 6544202 ####[address] [place] [address] Lymphocytes/Leukocytes Auto (Bld) [Pure # fraction] 0.2 E9/L Low 1.0-4.0 [facility] Comment on above: Order Comment: Order Added by Discern Expert. Performed By: #### 2 957699, 38077277, 0535236, 8641154, 31938879, 79134515, 80111784, 5497344, 6333104 ####[facility] [address] [place] [address] Monocytes/100 WBC (Bld) 0.5 % Low 4.0-14.0 [facility] Comment on above: Order Comment: Order Added by Discern Expert. Performed By: #### 2 432914, 65889110, 9745672, 6111323, 08310308, 85725084, 68069640, 7519352, 8955340 ####[address] [place] [address] Monocytes/Leukocytes Auto (Bld) [Pure # fraction] 0.0 E9/L Low 0.2-1.0 [facility] Comment on above: Order Comment: Order Added by Monika Expert. Performed By: #### 2 274381, 92870524, 0133996, 3332096, 29548897, 77072966, 40654755, 8142373, 2283659 ####[address] [place] [address] Neutrophils/100 WBC (Bld) 97.4 % High 36.0-75.0 [facility] Comment on above: Order Comment: Order Added by Discern Expert. Performed By: #### 2 472815, 44024597, 4319922, 5372855, 69009688, 66035879, 57852161, 2464306, 8380951 ####[address] [place] [address] Neutrophils/Leukocytes Auto (Bld) [Pure # fraction] 8.9 E9/L High 2.0-7.5 [facility] Comment on above: Order Comment: Order Added by Monika Expert. Performed By: #### 2 574498, 00475908, 1794010, 8129557, 73878594, 04842691, 94414928, 1194750, 1351732 ####[facility] [address] [place] [address] BMPon 02-24-2023 Anion gap [Moles/Vol] 16 mmol/L Normal 6-16 [facility] Comment on above: Performed By: #### 2 038473, 95102993, 1456956, 4642349, 84299363, 80817914, 18616245, 0330897, 9951819 ####[facility] [address] [place] [address] BUN/Creat Ratio 18 No Units Normal 10-20 [facility] Comment on above: Performed By: #### 2 789669, 12579846, 5439264, 5740693, 88286136, 56175707, 77631378, 5416119, 2012270 ####[facility] [address] [place] [address] Calcium [Mass/Vol] 10.2 mg/dL Normal 8.9-11.1 [facility] Comment on above: Performed By: #### 2 362051, 53752775, 5620297, 7303164, 72030003, 06074202, 22173152, 4271192, 5419512 ####[facility] [address] [place] [address] Chloride [Moles/Vol] 101 mmol/L Normal 101-111 [facility] Comment on above: Performed By: #### 2 613546, 70432576, 1491429, 5862023, 22336433, 05695326, 68391269, 0204360, 3598489 ####[facility] [address] [place] [address] CO2 [Moles/Vol] 17 mmol/L Low 21-31 [facility] Comment on above: Performed By: #### 2 666540, 37918912, 1155585, 9711419, 66702202, 45240519, 48934660, 9930385, 5309446 ####[facility] [address] [place] [address] Creatinine [Mass/Vol] 0.8 mg/dL Normal 0.5-1.3 [facility] Comment on above: Performed By: #### 2 350723, 49005403, 7477897, 2483730, 72234278, 26482708, 72746500, 4205246, 4591113 ####[facility] [address] [place] [address] Glucose [Mass/Vol] 107 mg/dL Normal 55-199 [facility] Comment on above: Performed By: #### 2 432783, 10844413, 3442704, 1033170, 23642354, 74107487, 12622176, 0136596, 4149675 ####[facility] [address] [place] [address] Potassium [Moles/Vol] 4.0 mmol/L Normal 3.5-5.3 [facility] Comment on above: Performed By: #### 2 821239, 38439053, 8885842, 5716469, 98983815, 75218618, 05122178, 8385484, 5249371 ####[facility] [address] [place] [address] Sodium [Moles/Vol] 130 mmol/L Low 135-145 [facility] Comment on above: Performed By: #### 2 260804, 34908516, 7210221, 7461436, 43310326, 58888744, 91266523, 7196623, 1559708 ####[facility] [address] [place] [address] Urea nitrogen [Mass/Vol] 14 mg/dL Normal 5-21 [facility] Comment on above: Performed By: #### 2 716418, 70940796, 8187413, 9186354, 70576876, 29383208, 60580278, 9942800, 9637345 ####[facility] [address] [place] [address] Bacteria identifiedon 2022 Bacteria identified Cx Nom (Bld) Normal [facility] Comment on above: Performed By: #### 6 00-7 ####SARAH Mcknight ([id number])[facility] ([facility])[address] [place] [address] Basic metabolic 2000 panelon 02-24-2023 Anion gap [Moles/Vol] 14 mmol/L 10 - 2 0 mmol/L [facility] Calcium [Mass/Vol] 9.8 mg/dL 8.6 - 10. 6 mg/dL [facility] Chloride [Moles/Vol] 100 mmol/L 98 - 10 7 mmol/L [facility] CO2 [Moles/Vol] 21 mmol/L 21 - 32 mmol/L [facility] Creatinine [Mass/Vol] 0.90 mg/dL 0.50 - 1.30 mg/dL [facility] GFR/1.73 sq M.predicted MDRD (S/P/Bld) [Vol rate/Area] - PINF [facility] Glucose [Mass/Vol] 90 mg/dL 74 - 99 mg/dL [facility] Potassium [Moles/Vol] 4.4 mmol/L 3.5 - 5.3 mmol/L [facility] Sodium [Moles/Vol] 131 mmol/L Low 136 - 145 mmol/L [facility] Urea nitrogen [Mass/Vol] 16 mg/dL 6 - 23 mg/dL [facility] Anion gap [Moles/Vol] 14 mmol/L Normal 10-20 [facility] Comment on above: Performed By: #### 2 4321-2 ####SARAH Mcknight (44924)[facility] ([facility])[address] [place] [address] Calcium [Mass/Vol] 9.8 mg/dL Normal 8.6-10.6 [facility] Comment on above: Performed By: #### 2 4321-2 ####SARAH Mcknight (74231)[facility] ([facility])[address] [place] [address] Chloride [Moles/Vol] 100 mmol/L Normal 98-107 [facility] Comment on above: Performed By: #### 2 4321-2 ####SARAH Mcknight (61080)[facility] ([facility])[address] [place] [address] CO2 [Moles/Vol] 21 mmol/L Normal 21-32 [facility] Comment on above: Performed By: #### 2 4321-2 ####SARAH Mcknight (96157)[facility] ([facility])[address] [place] [address] Creatinine [Mass/Vol] 0.90 mg/dL Normal 0.50-1.30 [facility] Comment on above: Performed By: #### 2 4321-2 ####SARAH Mcknight (04082)[facility] ([facility])[address] [place] [address] GFR/1.73 sq M.predicted MDRD (S/P/Bld) [Vol rate/Area] mL/min/{1.73_m2} Normal >60 [facility] Comment on above: Result Comment: Calc ulations of estimated GFR are performed using the 2020 CKD-EPI Study Refit equation without the race variable for the IDMS-Traceable creatinine methods.https://jasn.asnjournals.org/content/early//A SN.6840733613 Performed By: #### 2 4321-2 ####SARAH Mcknight (57391)[facility] ([facility])[address] [place] [address] Glucose [Mass/Vol] 90 mg/dL Normal 74-99 [facility] Comment on above: Performed By: #### 2 4321-2 ####SARAH Mcknight (65389)[facility] ([facility])[address] [place] [address] Potassium [Moles/Vol] 4.4 mmol/L Normal 3.5-5.3 [facility] Comment on above: Performed By: #### 2 4321-2 ####SARAH Mcknight (80237)[facility] ([facility])[address] [place] [address] Sodium [Moles/Vol] 131 mmol/L Low 136-145 [facility] Comment on above: Performed By: #### 2 4321-2 ####SARAH Mcknight (62274)[facility] ([facility])[address] [place] [address] Urea nitrogen [Mass/Vol] 16 mg/dL Normal 6-23 [facility] Comment on above: Performed By: #### 2 4321-2 ####SARAH Mcknight ([id number])[facility] ([facility])[address] [place] [address] CBC W Auto Differential pane l (Bld)on 02-24-2023 Basophils (Bld) [#/Vol] 0.06 10*3/uL [facility] Basophils/100 WBC (Bld) 0.4 % 0.0 - 2.0 % [facility] Eosinophils (Bld) [#/Vol] 0.02 10*3/uL [facility] Eosinophils/100 WBC (Bld) 0.1 % 0.0 - 6.0 % [facility] Erythrocyte distribution width (RBC) [Ratio] 17.9 % High 11.5 - 14.5 % [facility] Hematocrit (Bld) [Volume fraction] 35.9 % Low 41.0 - 52.0 % [facility] Hemoglobin (Bld) [Mass/Vol] 10.9 g/dL Low 13.5 - 17.5 g/dL [facility] Immature granulocytes (Bld) [#/Vol] 0.30 10*3/uL [facility] Immature granulocytes/100 WBC (Bld) 1.9 % High 0.0 - 0.9 % [facility] Interpretation and review of laboratory results Abnormal [facility] Lymphocytes (Bld) [#/Vol] 0.96 10*3/uL Low [facility] Lymphocytes/100 WBC (Bld) 6.2 % 13.0 - 44.0 % [facility] MCH (RBC) [Entitic mass] 23.6 pg Low 26.0 - 34.0 pg [facility] MCHC (RBC) [Mass/Vol] 30.4 g/dL Low 32.0 - 36.0 g/dL [facility] MCV (RBC) [Entitic vol] 78 fL Low 80 - 100 fL [facility] Monocytes (Bld) [#/Vol] 0.51 10*3/uL [facility] Monocytes/100 WBC (Bld) 3.3 % 2.0 - 10.0 % [facility] Neutrophils (Bld) [#/Vol] 13.65 10*3/uL High [facility] Neutrophils/100 WBC (Bld) 88.1 % 40.0 - 80.0 % [facility] Nucleated RBC/100 WBC (Bld) [Ratio] 0.0 % [facility] Platelets (Bld) [#/Vol] 148 10*3/uL Low [facility] RBC (Bld) [#/Vol] 4.62 10*6/uL Unive [facility] WBC (Bld) [#/Vol] 15.5 10*3/uL High [facility] Basophils (Bld) [#/Vol] 0.06 x10*3/uL Normal 0.00-0.10 [facility] Comment on above: Performed By: #### 5 7021-8 ####SARAH Mcknight ([id number])[facility] ([facility])[address] [place] [address] Basophils/100 WBC (Bld) 0.4 % Normal 0.0-2.0 [facility] Comment on above: Performed By: #### 5 7021-8 ####SARAH OMER L (41725)[facility] ([facility])[address] [place] [address] Eosinophils (Bld) [#/Vol] 0.02 x10*3/uL Normal 0.00-0.70 [facility] Comment on above: Performed By: #### 5 7021-8 ####SARAH Mcknight (07429)[facility] ([facility])[address] [place] [address] Eosinophils/100 WBC (Bld) 0.1 % Normal 0.0-6.0 [facility] Comment on above: Performed By: #### 5 7021-8 ####SARAH Mcknight (40191)[facility] ([facility])[address] [place] [address] Erythrocyte distribution width (RBC) [Ratio] 17.9 % High 11.5-14.5 [facility] Comment on above: Performed By: #### 5 7021-8 ####SARAH Mcknight (97939)[facility] ([facility])[address] [place] [address] Hematocrit (Bld) [Volume fraction] 35.9 % Low 41.0-52.0 [facility] Comment on above: Performed By: #### 5 7021-8 ####SARAH Mcknight ([id number])[facility] ([facility])[address] [place] [address] Hemoglobin (Bld) [Mass/Vol] 10.9 g/dL Low 13.5-17.5 [facility] Comment on above: Performed By: #### 5 7021-8 ####SARAH Mcknight (70606)[facility] ([facility])[address] [place] [address] Immature granulocytes (Bld) [#/Vol] 0.30 x10*3/uL Normal 0.00-0.70 [facility] Comment on above: Performed By: #### 5 7021-8 ####SARAH Mcknight (50982)[facility] ([facility])[address] [place] [address] Immature granulocytes/100 WBC (Bld) 1.9 % High 0.0-0.9 [facility] Comment on above: Result Comment: Ciera ture Granulocyte Count (IG) includes promyelocytes, myelocytes and metamyelocytes but does not include bands. Percent differential counts (%) should be interpreted in the context of the absolute cell counts (cells/UL). Performed By: #### 5 7021-8 ####SARAH Mcknight ([id number])[facility] ([facility])[address] [place] [address] Lymphocytes (Bld) [#/Vol] 0.96 x10*3/uL Low 1.20-4.80 [facility] Comment on above: Performed By: #### 5 7021-8 ####SARAH Mcknight (45679)[facility] ([facility])[address] [place] [address] Lymphocytes/100 WBC (Bld) 6.2 % Normal 13.0-44.0 [facility] Comment on above: Performed By: #### 5 7021-8 ####SARAH Mcknight ([id number])[facility] ([facility])[address] [place] [address] MCH (RBC) [Entitic mass] 23.6 pg Low 26.0-34.0 [facility] Comment on above: Performed By: #### 5 7021-8 ####SARAH Mcknight (07239)[facility] ([facility])[address] [place] [address] MCHC (RBC) [Mass/Vol] 30.4 g/dL Low 32.0-36.0 [facility] Comment on above: Performed By: #### 5 7021-8 ####SARAH Mcknight (64723)[facility] ([facility])[address] [place] [address] MCV (RBC) [Entitic vol] 78 fL Low 80-100 [facility] Comment on above: Performed By: #### 5 7021-8 ####SARAH Mcknight (00012)[facility] ([facility])[address] [place] [address] Monocytes (Bld) [#/Vol] 0.51 x10*3/uL Normal 0.10-1.00 [facility] Comment on above: Performed By: #### 5 7021-8 ####SARAH Mcknight (45691)[facility] ([facility])[address] [place] [address] Monocytes/100 WBC (Bld) 3.3 % Normal 2.0-10.0 [facility] Comment on above: Performed By: #### 5 7021-8 ####SARAH Mcknight (21120)[facility] ([facility])[address] [place] [address] Neutrophils (Bld) [#/Vol] 13.65 x10*3/uL High 1.20-7.70 [facility] Comment on above: Result Comment: Perc ent differential counts (%) should be interpreted in the context of the absolute cell counts (cells/uL). Performed By: #### 5 7021-8 ####SARAH Mcknight ([id number])[facility] ([facility])[address] [place] [address] Neutrophils/100 WBC (Bld) 88.1 % Normal 40.0-80.0 [facility] Comment on above: Performed By: #### 5 7021-8 ####SARAH Mcknight ([id number])[facility] ([facility])[address] [place] [address] Nucleated RBC/100 WBC (Bld) [Ratio] 0.0 /100 WBCs Normal 0.0-0.0 [facility] Comment on above: Performed By: #### 5 7021-8 ####SARAH Mcknight ([id number])[facility] ([facility])[address] [place] [address] Platelets (Bld) [#/Vol] 148 x10*3/uL Low 150-450 [facility] Comment on above: Performed By: #### 5 7021-8 ####SARAH Mcknight ([id number])[facility] ([facility])[address] [place] [address] RBC (Bld) [#/Vol] 4.62 x10*6/uL Normal 4.50-5.90 [facility] Comment on above: Performed By: #### 5 7021-8 ####SARAH Mcknight ([id number])[facility] ([facility])[address] [place] [address] WBC (Bld) [#/Vol] 15.5 x10*3/uL High 4.4-11.3 [facility] Comment on above: Performed By: #### 5 7021-8 ####SARAH Mcknight ([id number])[facility] ([facility])[address] [place] [address] CBC w/ Auto Diffon 3 Erythrocyte distribution width (RBC) [Ratio] 19.0 % High 10.9-14.2 [facility] Comment on above: Performed By: #### 2 713014, 10468811, 6476659, 2280842, 61686356, 29284262, 62104797, 6609991, 4780835 ####[facility] [address] [place] [address] Hematocrit (Bld) [Volume fraction] 31.2 % Low 37.7-49.0 [facility] Comment on above: Performed By: #### 2 375616, 86758277, 6783124, 9016570, 40015144, 42930245, 88534327, 1309626, 1415350 ####[facility] [address] [place] [address] Hemoglobin (Bld) [Mass/Vol] 9.9 g/dL Low 13.5-17.5 [facility] Comment on above: Performed By: #### 2 849229, 04118914, 0281567, 4244325, 86617177, 98632014, 07756586, 3249454, 6490093 ####[facility] [address] [place] [address] MCH (RBC) [Entitic mass] 23.5 pg Low 27.0-34.0 [facility] Comment on above: Performed By: #### 2 730986, 31504961, 9393024, 3613281, 64140130, 15665134, 48708305, 8825995, 0022348 ####[facility] [address] [place] [address] MCHC (RBC) [Mass/Vol] 31.8 g/dL Normal 31.4-36.0 [facility] Comment on above: Performed By: #### 2 927476, 60153803, 4860710, 5625627, 56375975, 10979178, 88572601, 1606782, 5141850 ####[address] [place] [address] MCV (RBC) [Entitic vol] 73.9 fL Low 80.0-100.0 [facility] Comment on above: Performed By: #### 2 516602, 04728905, 5718356, 9318512, 95857815, 73695372, 19129411, 0561154, 5293655 ####[address] [address] Platelet mean volume (Bld) [Entitic vol] 6.6 fL Normal 6.4-10.8 [facility] Comment on above: Performed By: #### 2 263054, 25018301, 0532871, 6581373, 28239481, 13587210, 91419250, 6337039, 4961087 ####[address] [address] Platelets (Bld) [#/Vol] 212.0 E9/L Normal 150.0-500.0 [facility] Comment on above: Performed By: #### 2 936288, 62991736, 2391191, 7888389, 34546167, 95891244, 40430091, 4928634, 2539736 ####[address] [address] RBC (Bld) [#/Vol] 4.2 E12/L Low 4.3-5.9 [facility] Comment on above: Performed By: #### 2 866564, 71957558, 9117931, 0940402, 93871341, 91916838, 81725019, 8360797, 6790477 ####[facility] [address] [place] [address] WBC corrected for nucl RBC Auto (Bld) [#/Vol] 9.2 E9/L Normal 4.0-11.0 [facility] Comment on above: Performed By: #### 2 894835, 92645539, 6295312, 5750726, 86840310, 51613535, 55436339, 7146569, 4500637 ####[facility] [address] [place] [address] CHEMISTRYOrdered By: SYSTEM SYSTEM on 02-24-2023 Troponin 4423.70 pg/mL Invalid Interpretation Code 15.90 - 38.40 pg/mL [facility] Comment on above: Result Comment: Crit ical Result I_TnIHS:4423.7 Called to and read back by: SILVER FERRELL at: 02/24/2023 20:40:22 by:BRADLY GOTTI Interpretive Data: T he 95% CI (Confidence Interval) PPV (Positive Predictive Value) for myocardial infarction in females is 38 pg/mL, in males 51 pg/mL. The results should be used in conjunction with clinical conditions of myocardial infarction. (Access High Sensitivity Troponin I Instructions For Use, [employer], October 2017) eGFR 98 mL/min/1.73 m2 Normal >=59mL/min /1 .73 m2 [facility] Chem S Troponin 2302.10 pg/mL Invalid Interpretation Code 15.90 - 38.40 pg/mL [facility] Comment on above: Result Comment: Crit ical Result I_TnIHS:2302.1 Called to and read back by: DR GENA GARZON at: 02/24/2023 19:24:46 by:BRADLY GOTTI Interpretive Data: T he 95% CI (Confidence Interval) PPV (Positive Predictive Value) for myocardial infarction in females is 38 pg/mL, in males 51 pg/mL. The results should be used in conjunction with clinical conditions of myocardial infarction. (Access High Sensitivity Troponin I Instructions For Use, [employer], October 2017) CHEMISTRYOrdered By: Paul Gotti on 02-24-2023 Albumin [Mass/Vol] 3.2 g/dL Low 3.3 - 5.0 gm/dL [facility] Albumin/Globulin [Mass ratio] 1.2 {ratio} Normal 1.1 - 2.2 [facility] Alk Phos 88 [iU]/d Normal 21 - 98 Int._Unit/L [facility] ALT 6 [iU]/d Normal 6 - 46 Int._Unit/L [facility] Anion gap [Moles/Vol] 16 mmol/L Normal 6 - 16 mEq/L R emisol Chem AST 19 [iU]/d Normal 5 - 43 Int._Unit/L [facility] Bili Direct 0.1 mg/dL Normal 0.1 - 0.4 mg/dL [facility] Bili Indirect 0.5 mg/dL Normal 0.1 - 0.9 mg/dL [facility] Bili Total 0.6 mg/dL Normal 0.0 - 1.1 mg/dL [facility] Calcium [Mass/Vol] 10.2 mg/dL Normal 8.9 - 11. 1 mg/dL [facility] Chloride [Moles/Vol] 101 mmol/L Normal 101 - 1 11 mmol/L [facility] CO2 [Moles/Vol] 17 mmol/L Low 21 - 31 mmol/L [facility] Creatinine [Mass/Vol] 0.8 mg/dL Normal 0.5 - 1.3 mg/dL [facility] Globulin (S) [Mass/Vol] 2.7 g/dL Normal 1.4 - 4.0 gm/dL [facility] Glucose [Mass/Vol] 107 mg/dL Normal 55 - 199 mg/dL [facility] Lipase Lvl 23 unit/L Normal 13 - 58 unit/L [facility] Potassium [Moles/Vol] 4.0 mmol/L Normal 3.5 - 5.3 mmol/L [facility] Protein [Mass/Vol] 5.9 g/dL Low 6.0 - 7.8 gm/dL [facility] Sodium [Moles/Vol] 130 mmol/L Low 135 - 145 mmol/L [facility] Urea nitrogen [Mass/Vol] 14 mg/dL Normal 5 - 21 mg/dL [facility] Urea nitrogen/Creatinine [Mass ratio] 18 mg/mg Normal 10 - 20 [facility] COAGULATIONOrdered By: Roscoe Díaz on 02-24-2023 aPTT Coag (PPP) [Time] 19.2 s Low 25.1 - 36.5 second(s) [facility] Auto Coag Comment on above: Interpretive Data: Franny jaylynharjeet 15 days - 4 weeks 1 - 5 months 6 - 11 months 1 - 5 years 6 - 10 years 11 - 17 years PTT Mean: 35.4 (27.6-45.6) Mean: 33.5 (24.8-40.7) Mean: 32.4 (25.1-40.7) Mean: 31.6 (24.0-39.2) Mean: 31.6 (26.9-38.7) Mean: 31.0 (24.6-38.4) Pediatric Reference ranges were obtained from a study by anais Lemons prepared from 1437 samples obtained at 7 different centers using the same coagulation reagent and instrumentation as [facility]. Currently there are no coagulation studies available worldwide for children to 14 days, and no normal ranges. Heparin therapeutic range (represented by Anti-Factor Xa activity of 0.2 - 0.4 U/mL) corresponds to PTT of 56.6 - 109.0 sec. INR Coag (PPP) [Relative time] 1.2 {INR} Invalid Interpretation Code [facility] Comment on above: Interpretive Data: I NR results are specifically intended to assess patients stabilized on long-term Anticoagulation therapy suggested INR s Less Intensive Anticoagulation 2.0 3.0 Conventional Range 3.0 4.5 PT Coag (PPP) [Time] 13.8 s High 9.4 - 1 2.5 second(s) [facility] Comment on above: Interpretive Data: 1 5 days - 4 weeks 1 - 5 months 6 -11 months 1-5 years 6-10 years 11 -17 years Mean: 11.2 (9.5-12.6) Mean: 11.0 (9.7-12.8) Mean: 11.0 (9.8-13.0) Mean: 11.3 (9.9-13.4) Mean: 11.7 (10.0-14.6) Mean: 11.8 (10.0 - 14.1) Pediatric Reference ranges were obtained from a study by anais Lemons prepared from 1437 samples obtained at 7 different centers using the same coagulation reagent and instrumentation as [facility]. Currently there are no coagulation studies available worldwide for children to 14 days, and no normal ranges. CT Abdomen/Pelvis w/o Contra ston 02-24-2023 CT Abdomen/Pelvis w/o Contrast Normal [facility] Consent for Treatmenton 02-12 Consent for Treatment [id number] F Normal [facility] ECG 12-LEADon 02-24-2023 ECG 12-LEAD Ventricular Rate 105 Atrial Rate 105 P-R Interval 190 QRS Duration 100 Q-T Interval 320 QTC Calculation(Bazett) 422 P [place] 23 R [place] -8 T [place] 71 QRS Count 17 Q Onset 215 P Onset 120 P Offset 181 T Offset 375 QTC Fredericia 385 Diagnosis Sinus tachycardia Possible Anterior infarct , age undetermined Abnormal ECG When compared with ECG of 14-JAN-2023 17:34, Vent. rate has increased BY 38 BPM T wave inversion now evident in Anterior leads See ED provider note for full interpretation and clinical correlation Confirmed by Kurt Childress ([id number]) on 02/25/2023 5:14:20 AM Normal [facility] ED Clinical Summaryon 2022 ED Clinical Summary Normal [facility] ED Note-Physicianon 02-25-20 ED Note-Physician Normal [facility] Comment on above: Result Comment: Elec tronically Signed By: Gena Garzon DO\.br\Date and Time Signed: 02/24/23 19:41 EST ED Patient Education Noteon 02-24-2023 ED Patient Education Note Normal [facility] ED Patient Summaryon 023 ED Patient Summary Normal [facility] HEMATOLOGYOrdered By: Shaun Belcher on 02-24-2023 Anisocytosis Ql (Bld) Present (02/24/23 5:23 PM) Normal [facility] HemeManSS Elliptocytes LM Ql (Bld) Present (02/24/23 5:23 PM) Normal [facility] HemeManSS Erythrocyte distribution width (RBC) [Ratio] 19.0 % High 10.9 - 14.2 % [facility] HemeAutoSS Hematocrit (Bld) [Volume fraction] 31.2 % Low 37.7 - 49.0 % [facility] HemeAutoSS Hemoglobin (Bld) [Mass/Vol] 9.9 g/dL Low 13.5 - 17.5 gm/dL [facility] HemeAutoSS Hypochromia Auto Ql (Bld) Present (02/24/23 5:23 PM) Normal [facility] HemeManSS MCH (RBC) [Entitic mass] 23.5 pg Low 27.0 - 34.0 pg [facility] HemeAutoSS MCHC (RBC) [Mass/Vol] 31.8 g/dL Normal 31.4 - 36.0 gm/dL [facility] HemeAutoSS MCV (RBC) [Entitic vol] 73.9 fL Low 80.0 - 100.0 fL [facility] HemeAutoSS Microcytes Ql (Bld) Present (02/24/23 5:23 PM) Normal [facility] HemeManSS Morphology Andrew (Bld) [Interp] See Morphology 1 (02/24/23 5:23 PM) Normal [facility] HemeManSS Comment on above: Result Comment: Resu lts are consistent with previous path review performed on 02-01-23. Reviewed by ART. Ovalocytes LM Ql (Bld) Present (02/24/23 5:23 PM) Normal [facility] HemeManSS Platelet mean volume (Bld) [Entitic vol] 6.6 fL Normal 6.4 - 10.8 fL [facility] HemeAutoSS Platelets (Bld) [#/Vol] 212.0 E9/L Normal 150.0 - 500.0 E9/L [facility] HemeAutoSS RBC (Bld) [#/Vol] 4.2 E12/L Low 4.3 - 5.9 E12/L [facility] HemeAuto[facility] WBC corrected for nucl RBC Auto (Bld) [#/Vol] 9.2 E9/L Normal 4.0 - 11.0 E9/L [facility] HemeAutoSS HEMATOLOGYOrdered By: SYSTEM SYSTEM on 02-24-2023 Basophils/100 WBC (Bld) 0.2 % Normal 0.0 - 2.0 % [facility] HemeAutoSS Basophils/Leukocytes Auto (Bld) [Pure # fraction] 0.0 E9/L Normal 0.0 - 0.2 E9/L [facility] HemeAutoSS Eosinophils/100 WBC (Bld) 0.1 % Normal 0.0 - 8.0 % [facility] HemeAutoSS Eosinophils/Leukocytes Auto (Bld) [Pure # fraction] 0.0 E9/L Normal 0.0 - 0.5 E9/L [facility]eAuto[facility] Lymphocytes/100 WBC (Bld) 1.8 % Low 14.0 - 50.0 % [facility]eAuto[facility] Lymphocytes/Leukocytes Auto (Bld) [Pure # fraction] 0.2 E9/L Low 1.0 - 4.0 E9/L [facility]eAuto[facility] Monocytes/100 WBC (Bld) 0.5 % Low 4.0 - 14.0 % [facility] HemeAutoSS Monocytes/Leukocytes Auto (Bld) [Pure # fraction] 0.0 E9/L Low 0.2 - 1.0 E9/L [facility] HemeAutoSS Neutrophils/100 WBC (Bld) 97.4 % High 36.0 - 75.0 % [facility] HemeAutoSS Neutrophils/Leukocytes Auto (Bld) [Pure # fraction] 8.9 E9/L High 2.0 - 7.5 E9/L [facility] HemeAutoSS Hep Func Panelon 02-24-2023 Albumin [Mass/Vol] 3.2 g/dL Low 3.3-5.0 [facility] Comment on above: Performed By: #### 2 172558, 60108472, 5343704, 1674254, 42645991, 41923467, 55107622, 6895013, 8183603 ####[facility] [address] [place] [address] Albumin/Globulin [Mass ratio] 1.2 {ratio} Normal 1.1-2.2 [facility] Comment on above: Performed By: #### 2 462605, 73277208, 5071358, 9250268, 43840327, 46328601, 95537010, 7653351, 7755014 ####[facility] [address] [place] [address] Alk Phos 88 Int._Unit/L Normal 21-98 [facility] Comment on above: Performed By: #### 2 015325, 05059456, 3469115, 4168696, 76698904, 58372042, 64731641, 9787970, 0397948 ####[facility] [address] [place] [address] ALT 6 Int._Unit/L Normal 6-46 [facility] Comment on above: Performed By: #### 2 912788, 34792384, 4965348, 0143315, 36909615, 11487887, 01634400, 7940705, 8924944 ####[facility] [address] [place] [address] AST 19 Int._Unit/L Normal 5-43 [facility] Comment on above: Performed By: #### 2 842833, 48583616, 1518040, 2367974, 90954237, 08792783, 99386416, 4362764, 6004191 ####[facility] [address] [place] [address] Bili Direct 0.1 mg/dL Normal 0.1-0.4 [facility] Comment on above: Performed By: #### 2 482585, 99318866, 4266541, 0099929, 47110479, 74794327, 95835744, 2158649, 6356238 ####[facility] [address] [place] [address] Bili Indirect 0.5 mg/dL Normal 0.1-0.9 [facility] Comment on above: Performed By: #### 2 006291, 72626523, 7918418, 3612915, 03143496, 38859394, 28136160, 3814301, 9679608 ####[facility] [address] [place] [address] Bili Total 0.6 mg/dL Normal 0.0-1.1 [facility] Comment on above: Performed By: #### 2 568007, 26132249, 5878760, 3555177, 61827245, 91544515, 66399805, 7076690, 7612240 ####[facility] [address] [place] [address] Globulin (S) [Mass/Vol] 2.7 g/dL Normal 1.4-4.0 [facility] Comment on above: Performed By: #### 2 779508, 36347518, 4821305, 2512608, 24960875, 29346084, 52926567, 2110179, 1902766 ####[facility] [address] [place] [address] Protein [Mass/Vol] 5.9 g/dL Low 6.0-7.8 [facility] Comment on above: Performed By: #### 2 010325, 88870418, 7447732, 3218720, 99064353, 92250377, 93654835, 0006504, 5874499 ####[facility] [address] [place] [address] Hepatic function 2000 panelo n 02-24-2023 Albumin BCP dye [Mass/Vol] 3.1 g/dL Low 3.4 - 5.0 g/dL [facility] ALP [Catalytic activity/Vol] 81 U/L 33 - 136 U/L [facility] ALT With P-5'-P [Catalytic activity/Vol] 8 U/L Low 10 - 52 U/L [facility] AST With P-5'-P [Catalytic activity/Vol] 23 U/L 9 - 39 U/L [facility] Bilirubin [Mass/Vol] 0.7 mg/dL 0.0 - 1 .2 mg/dL [facility] Bilirubin.direct [Mass/Vol] 0.1 mg/dL 0.0 - 0.3 mg/dL [facility] Interpretation and review of laboratory results Abnormal [facility] Protein [Mass/Vol] 6.0 g/dL Low 6.4 - 8.2 g/dL [facility] Albumin BCP dye [Mass/Vol] 3.1 g/dL Low 3.4-5.0 [facility] Comment on above: Performed By: #### 2 4325-3 ####SARAH Mcknight ([id number])[facility] ([facility])[address] [place] [address] ALP [Catalytic activity/Vol] 81 U/L Normal 33-136 [facility] Comment on above: Performed By: #### 2 4325-3 ####SARAH Mcknight ([id number])[facility] ([facility])[address] [place] [address] ALT With P-5'-P [Catalytic activity/Vol] 8 U/L Low 10-52 [facility] Comment on above: Result Comment: Aneta ents treated with Sulfasalazine may generate falsely decreased results for ALT. Performed By: #### 2 4325-3 ####SARAH Mcknight ([id number])[facility] ([facility])[address] [facility] [place] [address] AST With P-5'-P [Catalytic activity/Vol] 23 U/L Normal 9-39 [facility] Comment on above: Performed By: #### 2 4325-3 ####SARAH Mcknight ([id number])[facility] ([facility])[address] [facility] [place] [address] Bilirubin [Mass/Vol] 0.7 mg/dL Normal 0.0-1.2 [facility] Comment on above: Performed By: #### 2 4325-3 ####SARAH Mcknight ([id number])[facility] ([facility])[address] [place] [address] Bilirubin.direct [Mass/Vol] 0.1 mg/dL Normal 0.0-0.3 [facility] Comment on above: Performed By: #### 2 4325-3 ####SARAH Mcknight ([id number])[facility] ([facility])[address] [place] [address] Protein [Mass/Vol] 6.0 g/dL Low 6.4-8.2 [facility] Comment on above: Performed By: #### 2 4325-3 ####SARAH Mcknight ([id number])[facility] ([facility])[address] [place] [address] Influenza virus A and B and SARS-CoV-2 (COVID-19) identified YOMAIRA+probe Nom (Resp)on 02-24-2023 FLUAV RNA YOMAIRA+probe Ql (Resp) Not detected Not Detected [facility] FLUBV RNA YOMAIRA+probe Ql (Resp) Not detected Not Detected [facility] Interpretation and review of laboratory results Normal [facility] SARS-CoV-2 (COVID-19) RNA YOMAIRA+probe Ql (Resp) Not detected Not Detected [facility] FLUAV RNA YOMAIRA+probe Ql (Resp) Not detected Normal Not Detected [facility] Comment on above: Order Comment: This assay has received [facility] Emergency Use Authorization (EUA) and is only authorized for the duration of time that circumstances exist to justify the authorization of the emergency use of in vitro diagnostic tests for the detection of SARS-CoV-2 virus and/or diagnosis of COVID-19 infection under section 564(b)(1) of the Act, 21 U.S.C. 360bbb-3(b)(1). Testing for SARS-CoV-2 is only recommended for patients who meet current clinical and/or epidemiological criteria as defined by federal, state, or local public health directives. This assay is an in vitro diagnostic nucleic acid amplification test for the qualitative detection of SARS-CoV-2, Influenza A, and Influenza B from nasopharyngeal specimens and has been validated for use at [facility]. Negative results do not preclude COVID-19 infections or Influenza A/B infections, and should not be used as the sole basis for diagnosis, treatment, or other management decisions. If Influenza A/B and RSV PCR results are negative, testing for Parainfluenza virus, Adenovirus and Metapneumovirus is routinely performed for [facility] pediatric oncology and intensive care inpatients, and is available on other patients by placing an add-on request. Performed By: #### 9 5423-0 ####SARAH Mcknight ([id number])[facility] ([facility])[address] [place] [address] FLUBV RNA YOMAIRA+probe Ql (Resp) Not detected Normal Not Detected [facility] Comment on above: Order Comment: This assay has received FDA Emergency Use Authorization (EUA) and is only authorized for the duration of time that circumstances exist to justify the authorization of the emergency use of in vitro diagnostic tests for the detection of SARS-CoV-2 virus and/or diagnosis of COVID-19 infection under section 564(b)(1) of the Act, 21 U.S.C. 360bbb-3(b)(1). Testing for SARS-CoV-2 is only recommended for patients who meet current clinical and/or epidemiological criteria as defined by federal, state, or local public health directives. This assay is an in vitro diagnostic nucleic acid amplification test for the qualitative detection of SARS-CoV-2, Influenza A, and Influenza B from nasopharyngeal specimens and has been validated for use at [facility]. Negative results do not preclude COVID-19 infections or Influenza A/B infections, and should not be used as the sole basis for diagnosis, treatment, or other management decisions. If Influenza A/B and RSV PCR results are negative, testing for Parainfluenza virus, Adenovirus and Metapneumovirus is routinely performed for [facility] pediatric oncology and intensive care inpatients, and is available on other patients by placing an add-on request. Performed By: #### 9 5423-0 ####SARAH Mcknight ([id number])[facility] ([facility])[address] [place] [address] SARS-CoV-2 (COVID-19) RNA YOMAIRA+probe Ql (Resp) Not detected Normal Not Detected [facility] Comment on above: Order Comment: This assay has received FDA Emergency Use Authorization (EUA) and is only authorized for the duration of time that circumstances exist to justify the authorization of the emergency use of in vitro diagnostic tests for the detection of SARS-CoV-2 virus and/or diagnosis of COVID-19 infection under section 564(b)(1) of the Act, 21 U.S.C. 360bbb-3(b)(1). Testing for SARS-CoV-2 is only recommended for patients who meet current clinical and/or epidemiological criteria as defined by federal, state, or local public health directives. This assay is an in vitro diagnostic nucleic acid amplification test for the qualitative detection of SARS-CoV-2, Influenza A, and Influenza B from nasopharyngeal specimens and has been validated for use at [facility]. Negative results do not preclude COVID-19 infections or Influenza A/B infections, and should not be used as the sole basis for diagnosis, treatment, or other management decisions. If Influenza A/B and RSV PCR results are negative, testing for Parainfluenza virus, Adenovirus and Metapneumovirus is routinely performed for [facility] pediatric oncology and intensive care inpatients, and is available on other patients by placing an add-on request. Performed By: #### 9 5423-0 ####SARAH Mcknight ([id number])[facility] ([facility])[address] [place] [address] Lactateon 02-24-2023 Lactate [Moles/Vol] 4.8 mmol/L Critically high 0.4 - 2.0 mmol/L [facility] Lactate [Moles/Vol] 4.8 mmol/L Critically high 0.4-2.0 [facility] Comment on above: Order Comment: Venip uncture immediately after or during the administration of Metamizole may lead to falsely low results. Testing should be performed immediatelyprior to Metamizole dosing. Result Comment: Prev ious result verified on 02/24/2023 2303 on specimen/case [id number] called with component LACT for procedure Lactate with value 5.1 mmol/L. Performed By: #### 2 524-7 ####SARAH Mcknight ([id number])[facility] ([facility])[address] [place] [address] Lactate [Moles/Vol] 5.1 mmol/L Critically high 0.4 - 2.0 mmol/L [facility] Lactate [Moles/Vol] 5.1 mmol/L Critically high 0.4-2.0 [facility] Comment on above: Order Comment: Venip uncture immediately after or during the administration of Metamizole may lead to falsely low results. Testing should be performed immediatelyprior to Metamizole dosing. Performed By: #### 2 524-7 ####SARAH Mcknight ([id number])[facility] ([facility])[address] [place] [address] Lactate [Moles/Vol]on 2022 Interpretation and review of laboratory results Abnormal [facility] Interpretation and review of laboratory results Abnormal [facility] Lipaseon 02-24-2023 Lipase [Catalytic activity/Vol] 18 U/L 9 - 82 U/L [facility] Lipase Levelon 02-24-2023 Lipase Lvl 23 unit/L Normal [facility] Comment on above: Performed By: #### 2 608811, 68333921, 3007997, 2289436, 42010954, 90846793, 94077000, 4764298, 8118587 ####[facility] [address] [place] [address] Lipase [Catalytic activity/V ol]on 02-24-2023 Interpretation and review of laboratory results Normal [facility] Magnesiumon 02-24-2023 Magnesium [Mass/Vol] 1.35 mg/dL Low 1.60 - 2.40 mg/dL [facility] Magnesium [Mass/Vol] 1.35 mg/dL Low 1.60-2.40 [facility] Comment on above: Performed By: #### 1 9123-9 ####SARAH Mcknight ([id number])[facility] ([facility])[address] [place] [address] Monitor Recordon 02-24-2023 Monitor Record [id number] FF Normal [facility] Morphon 02-24-2023 Anisocytosis Ql (Bld) Present Normal [facility] Comment on above: Order Comment: Order Added by Discern Expert. Performed By: #### 2 734647, 68987704, 7295433, 4082634, 71182615, 23120164, 76630265, 8778228, 3596165 ####[facility] [address] [place] [address] Elliptocytes LM Ql (Bld) Present Normal [facility] Comment on above: Order Comment: Order Added by Discern Expert. Performed By: #### 2 219416, 28550923, 7806664, 8291758, 75057418, 23675469, 22680274, 0162241, 3200355 ####[facility] [address] [place] [address] Hypochromia Auto Ql (Bld) Present Normal [facility] Comment on above: Order Comment: Order Added by Discern Expert. Performed By: #### 2 120413, 45489865, 8370574, 8139456, 05775471, 01259692, 27461832, 3753446, 1341967 ####[facility] [address] [place] [address] Microcytes Ql (Bld) Present Normal [facility] Comment on above: Order Comment: Order Added by Discern Expert. Performed By: #### 2 105521, 34307998, 1662498, 2261597, 11183450, 61664239, 79124492, 1840151, 6791191 ####[facility] [address] [place] [address] Morphology Andrew (Bld) [Interp] See Morphology Normal [facility] Comment on above: Order Comment: Order Added by Discern Expert. Result Comment: Resu lts are consistent with previous path review performed on 02-01-23. Reviewed by MA. Performed By: #### 2 060154, 77026939, 4949696, 5054509, 36918566, 71667045, 08518667, 5258160, 6008550 ####[facility] [address] [place] [address] Ovalocytes LM Ql (Bld) Present Normal [facility] Comment on above: Order Comment: Order Added by Discern Expert. Performed By: #### 2 920390, 40464581, 5774828, 1752984, 05120457, 72025583, 85903110, 2697544, 6796427 ####[address] [place] [address] Natriuretic peptide B [Mass/ Vol]on 02-24-2023 Interpretation and review of laboratory results Abnormal [facility] Natriuretic peptide B (Bld) [Mass/Vol] 1234 pg/mL High 0 - 99 pg/mL [facility] Natriuretic peptide B (Bld) [Mass/Vol] 1234 pg/mL High 0-99 [facility] Comment on above: Order Comment: <100 pg/mL - Heart failure hhkqclpi916-366 pg/mL - Intermediate probability of acute heart failure exacerbation. Correlate with clinical context and patient history. >=300 pg/mL - Heart Failure likely. Correlate with clinical context and patient history.Biotin interference may cause falsely decreased results. Patients taking a Biotin dose of up to 5 mg/day should refrain from taking Biotin for 24 hours before sample collection. Providers may contact their local laboratory for further information. Performed By: #### 3 0934-4 ####SARAH Mcknight ([id number])[facility] ([facility])[address] [place] [address] No Panel Informationon 02-24 [facility] Interpretation and review of laboratory results Abnormal [facility] PT & PTTon 02-24-2023 aPTT Coag (PPP) [Time] 19.2 second(s) Low 25.1-36.5 [facility] Comment on above: Result Comment: Para meter 15 days - 4 weeks 1 - 5 months 6 - 11 months 1 - 5 years 6 - 10 years 11 - 17 years PTT Mean: 35.4 (27.6-45.6) Mean: 33.5 (24.8-40.7) Mean: 32.4 (25.1-40.7) Mean: 31.6 (24.0-39.2) Mean: 31.6 (26.9-38.7) Mean: 31.0 (24.6-38.4) Pediatric Reference ranges were obtained from a study by Kun Flores et al. prepared from 1437 samples obtained at 7 different centers using the same coagulation reagent and instrumentation as [facility]. Currently there are no coagulation studies available worldwide for children to 14 days, and no normal ranges. Heparin therapeutic range (represented by Anti-Factor Xa activity of 0.2 - 0.4 U/mL) corresponds to PTT of 56.6 - 109.0 sec. Performed By: #### 2 034752, 81438509, 7426030, 6709037, 40732315, 44659568, 12957020, 3899411, 9270326 ####[facility] [address] [place] [address] INR Coag (PPP) [Relative time] 1.2 {INR} Invalid Interpretation Code [facility] Comment on above: Result Comment: INR results are specifically intended to assess patients stabilized on long-term Anticoagulation therapy suggested INR?s ?Less Intensive Anticoagulation? 2.0 ? 3.0Conventional Range 3.0 ? 4.5 Performed By: #### 2 172398, 30454863, 1927000, 7786053, 00391473, 93258869, 35555104, 0187100, 8925655 ####[facility] [address] [place] [address] PT Coag (PPP) [Time] 13.8 second(s) High 9.4-12.5 [facility] Comment on above: Result Comment: 15 d ays - 4 weeks 1 - 5 months 6 -11 months 1- 5 years 6-10 years 11 -17 years Mean: 11.2 (9.5-12.6) Mean: 11.0 (9.7-12.8) Mean: 11.0 (9.8-13.0) Mean: 11.3 (9.9-13.4) Mean: 11.7 (10.0-14.6) Mean: 11.8 (10.0 - 14.1) Pediatric Reference ranges were obtained from a study by Kun Flores et al. prepared from 1437 samples obtained at 7 different centers using the same coagulation reagent and instrumentation as [facility]. Currently there are no coagulation studies available worldwide for children to 14 days, and no normal ranges. Performed By: #### 2 709902, 08014555, 1215466, 9199320, 94893872, 59112941, 95873449, 9531968, 3463408 ####[facility] [address] [place] [address] Phosphateon 02-24-2023 Phosphate [Mass/Vol] 1.3 mg/dL Low 2.5-4.9 [facility] Comment on above: Result Comment: The performance characteristics of phosphorus testing in heparinized plasma have been validated by the individual laboratory site where testing is performed. Testing on heparinized plasma is not approved by the FDA; however, such approval is not necessary. Performed By: #### 2 777-1 ####SARAH Mcknight ([id number])[facility] ([facility])[address] [place] [address] Phosphoruson 02-24-2023 Phosphate [Mass/Vol] 1.3 mg/dL Low 2.5 - 4 .9 mg/dL [facility] Pre-Arrival Noteon 3 Pre-Arrival Note Normal [facility] Transfer Documentson 023 Transfer Documents [id number] [id number] FF Normal [facility] Triacylglycerol lipaseon Lipase [Catalytic activity/Vol] 18 U/L Normal 9-82 [facility] Comment on above: Order Comment: Venip uncture immediately after or during the administration of Metamizole may lead to falsely low results. Testing should be performed immediately prior to Metamizole dosing. Performed By: #### 3 040-3 ####SARAH Mcknight ([id number])[facility] ([facility])[address] [place], [place] [address] Tropinin I.cardiac panel Hig h sensitivity methodon 02-24-2023 Interpretation and review of laboratory results Abnormal [facility] Troponin 0 Hr.on 02-24-2023 Troponin 2302.10 pg/mL Abnormal 15.90-38.40 [facility] Comment on above: Result Comment: Crit ical Result I_TnIHS:2302.1 Called to and read back by: DR GENA GARZON at: 02/24/2023 19:24:46 by:BRADLY GOTTIThe 95% CI (Confidence Interval) PPV (Positive Predictive Value) for myocardial infarction in females is 38 pg/mL, in males 51 pg/mL. The results should be used in conjunction with clinical conditions of myocardial infarction.(Access High Sensitivity Troponin I Instructions For Use, Yasmin Kamryn, October 2017) Performed By: #### 2 636464, 19893189, 9021621, 8443864, 14438196, 64974236, 48772183, 7522429, 1920293 ####[facility] [address] [place] [address] Troponin 3 Hr.on 02-24-2023 Troponin 4423.70 pg/mL Abnormal 15.90-38.40 [facility] Comment on above: Result Comment: Kristinat ica Result I_TnIHS:4423.7 Called to and read back by: SILVER FERRELL at: 02/24/2023 20:40:22 by:BRADLY GOTTIThe 95% CI (Confidence Interval) PPV (Positive Predictive Value) for myocardial infarction in females is 38 pg/mL, in males 51 pg/mL. The results should be used in conjunction with clinical conditions of myocardial infarction.(Access High Sensitivity Troponin I Instructions For Use, [employer], October 2017) Performed By: #### 1 [id number] ####[facility] [address] [place] [address] Troponin I, High Sensitivity on 02-24-2023 Tropinin I.cardiac panel High sensitivity method 6669 ng/L Critically high 0 - 53 ng/L [facility] Troponin I.cardiac panelon 1 04-27-2022 Tropinin I.cardiac panel High sensitivity method 6518 ng/L Critically high 0-53 [facility] Comment on above: Order Comment: Less than 99th percentile of normal range cutoff-Female and children under 18 years old <35 ng/L; Male <54 ng/L: NegativeRepeat testing should be performed if clinically indicated.Female and children under 18 years old 35-120 ng/L; Male 54-120 ng/L:Consistent with possible cardiac damage and possible increased clinicalrisk. Serial measurements may help to assess extent of myocardial damage.>120 ng/L: Consistent with cardiac damage, increased clinical risk andmyocardial infarction. Serial measurements may help assess extent ofmyocardial damage.NOTE: Children less than 1 year old may have higher baseline troponinlevels and results should be interpreted in conjunction with the overallclinical context.NOTE: Troponin I testing is performed using a differenttesting methodology at [facility] than at [facility]. Direct result comparisons should onlybe made within the same method. Result Comment: Prev ious result verified on 02/24/2023 2242 on specimen/case [id number] called with component [facility] for procedure Troponin I, High Sensitivity with value 6,669 ng/L. Performed By: #### 8 9577-1 ####SARAH Mcknight ([id number])[facility] ([facility])[id number] [place] [address] Tropinin I.cardiac panel High sensitivity method 6669 ng/L Critically high 0-53 [facility] Comment on above: Order Comment: Less than 99th percentile of normal range cutoff-Female and children under 18 years old <35 ng/L; Male <54 ng/L: NegativeRepeat testing should be performed if clinically indicated.Female and children under 18 years old 35-120 ng/L; Male 54-120 ng/L:Consistent with possible cardiac damage and possible increased clinicalrisk. Serial measurements may help to assess extent of myocardial damage.>120 ng/L: Consistent with cardiac damage, increased clinical risk andmyocardial infarction. Serial measurements may help assess extent ofmyocardial damage.NOTE: Children less than 1 year old may have higher baseline troponinlevels and results should be interpreted in conjunction with the overallclinical context.NOTE: Troponin I testing is performed using a differenttesting methodology at [facility] than at [facility]. Direct result comparisons should onlybe made within the same method. Performed By: #### 8 9577-1 ####SARAH Mcknight ([id number])[facility] ([facility])[id number] [place] [address] XR CHEST 1 VIEWon 02-24-2023 XR CHEST 1 VIEW Normal [facility] XR Chest Single viewon 02-24 [facility] MMODAL [facility] MMODAL [facility] Work Phone: Radiology Study observation (narrative) [facility] Work Phone: XR Chest Single viewOrdered By: Phillip Guerrero on 02-24-2023 [facility] Work Phone: eGFRon 12-13-2023 eGFR 98 mL/min/1.73 m2 Normal >=59 [facility] Comment on above: Order Comment: Order added by Discern Expert. Performed By: #### 2 957381, 11988009, 5068326, 9146710, 87290758, 39172860, 97132533, 4546530, 0150875 ####[facility] [address] [place] [address] Coding Queryon 02-18-2023 Coding Query Normal [facility] Tacrolimus Levelon 3 Tacrolimus LC/MS/MS (Bld) [Mass/Vol] 6.6 ng/mL Invalid Interpretation Code 2.0-20.0 [facility] Comment on above: Result Comment: This test was developed and its performance characteristicsdetermined by [employer]. It has not been cleared or approvedby the Food and Drug Administration.Trough (immediately followingtransplant) 15.0Trough (steady state, 2 weeks ormore after transplant): 3.0 - 8.0Performed by LC-MS/MS technology.Performed at: Lab[address] [id number] MD Oscar Lee Performed By: #### 2 088679, 69076097, 7913928, 36107157, 0986173, 4137241, 5502370, 45040989, 54054998 ####[address] [place] [address] PTH Intacton 02-11-2023 Parathyrin.intact [Mass/Vol] 61 pg/mL Invalid Interpretation Code [facility] Comment on above: Result Comment: Perf ormed at: [address]Em[facility] [id number] [place], [place] [id number] PhD Elizabeth Craft Performed By: #### 1 4716626 ####[facility] [address] [place] [address] C Blood Charcoalon 3 Blood Culture Charcoal Normal [facility] Comment on above: Performed By: #### 1 5838816 ####[facility] [address] [place] [address] Blood Culture Charcoal Normal [facility] Comment on above: Performed By: #### 1 5478080 ####[facility] [address] [place] [address] CBC w/Indiceson 02-10-2023 Erythrocyte distribution width (RBC) [Ratio] 18.7 % High 10.9-14.2 [facility] Comment on above: Performed By: #### 2 993676, 99221276, 5273074, 17799802, 3691517, 1657520, 8538030, 25025710, 24694216 ####[facility] [address] [place] [address] Hematocrit (Bld) [Volume fraction] 28.4 % Low 37.7-49.0 [facility] Comment on above: Performed By: #### 2 526338, 81491554, 8288029, 50401071, 9816469, 0439502, 5373956, 13344381, 43683187 ####[facility] [address] [place] [address] Hemoglobin (Bld) [Mass/Vol] 9.1 g/dL Low 13.5-17.5 [facility] Comment on above: Performed By: #### 2 339875, 39689591, 0359067, 28376124, 6736869, 1001818, 0368170, 96656623, 05376741 ####[facility] [address] [place] [address] MCH (RBC) [Entitic mass] 23.4 pg Low 27.0-34.0 [facility] Comment on above: Performed By: #### 2 370710, 62686336, 6439594, 54232040, 1603139, 2377465, 4685091, 18995033, 98617093 ####[facility] [address] [place] [address] MCHC (RBC) [Mass/Vol] 32.0 g/dL Normal 31.4-36.0 [facility] Comment on above: Performed By: #### 2 790548, 82697624, 2750554, 97824562, 6837342, 1647185, 7437422, 93821307, 55221026 ####[address] [place] [address] MCV (RBC) [Entitic vol] 73.0 fL Low 80.0-100.0 [facility] Comment on above: Performed By: #### 2 551669, 06607368, 4076454, 32817096, 3314999, 1662018, 1718330, 69293679, 62551740 ####[address] [place] [address] Platelet mean volume (Bld) [Entitic vol] 6.4 fL Normal 6.4-10.8 [facility] Comment on above: Performed By: #### 2 424867, 69221874, 2935049, 52245380, 1563529, 5223240, 9342339, 46628784, 34296234 ####[address] [address] Platelets (Bld) [#/Vol] 298.0 E9/L Normal 150.0-500.0 [facility] Comment on above: Performed By: #### 2 120176, 40947040, 7979401, 88927009, 6458157, 7416353, 6000877, 85446409, 12820471 ####[address] [address] RBC (Bld) [#/Vol] 3.9 E12/L Low 4.3-5.9 [facility] Comment on above: Performed By: #### 2 314837, 92141222, 2529616, 11698164, 2643673, 8566549, 9460872, 91015358, 54637506 ####[address] [address] WBC corrected for nucl RBC Auto (Bld) [#/Vol] 9.0 E9/L Normal 4.0-11.0 [facility] Comment on above: Performed By: #### 2 948938, 66117760, 7530562, 28780276, 8685334, 9992245, 1027984, 73446536, 86407349 ####[facility] [address] [place] [address] CMPon 02-10-2023 Albumin [Mass/Vol] 2.6 g/dL Low 3.3-5.0 [facility] Comment on above: Performed By: #### 2 801519, 70943346, 2388293, 40793131, 7110064, 9578606, 7317195, 97846126, 94886230 ####[address] [place] [address] Albumin/Globulin (S) [Mass conc ratio] 0.8 Low 1.1-2.2 [facility] Comment on above: Performed By: #### 2 305748, 37273776, 7460611, 34395926, 9922374, 6480967, 0162375, 77289576, 89016569 ####[facility] [address] [place] [address] ALP [Catalytic activity/Vol] 54 Int._Unit/L Normal 21-98 [facility] Comment on above: Performed By: #### 2 818772, 18073332, 0948117, 56211717, 7155351, 5038255, 2106472, 71351042, 71732761 ####[facility] [address] [place] [address] ALT No additional P-5'-P [Catalytic activity/Vol] 12 Int._Unit/L Normal 6-46 [facility] Comment on above: Performed By: #### 2 742612, 52684692, 3521708, 20724783, 3578306, 7411911, 1291598, 74857481, 08287331 ####[facility] [address] [place] [address] Anion gap [Moles/Vol] 12 mmol/L Normal 6-16 [facility] Comment on above: Performed By: #### 2 574310, 27199933, 8106653, 28250917, 5026586, 2145334, 4082699, 40982769, 40685927 ####[facility] [address] [place] [address] AST [Catalytic activity/Vol] 16 Int._Unit/L Normal 5-43 [facility] Comment on above: Performed By: #### 2 901924, 57708224, 2368347, 96323215, 7909080, 4878702, 5766365, 02899323, 36398488 ####[facility] [address] [place] [address] Bilirubin [Mass/Vol] 0.3 mg/dL Normal 0.0-1.1 [facility] Comment on above: Performed By: #### 2 231050, 13490513, 7850303, 10012281, 1479952, 7376564, 0197362, 53384298, 35434275 ####[facility] [address] [place] [address] Calcium [Mass/Vol] 10.5 mg/dL Normal 8.9-11.1 [facility] Comment on above: Performed By: #### 2 500258, 75543725, 2156428, 80861404, 6253299, 8385559, 9715481, 17215398, 23571863 ####[facility] [address] [place] [address] Chloride [Moles/Vol] 101 mmol/L Normal 101-111 [facility] Comment on above: Performed By: #### 2 611274, 29665845, 8555535, 38864609, 0113368, 1904658, 3944420, 96918102, 32208674 ####[facility] [address] [place] [address] CO2 [Moles/Vol] 23 mmol/L Normal 21-31 [facility] Comment on above: Performed By: #### 2 866615, 00965580, 0593650, 12084713, 8665398, 7759714, 0584838, 31060283, 85284810 ####[facility] [address] [place] [address] Creatinine [Mass/Vol] 0.7 mg/dL Normal 0.5-1.3 [facility] Comment on above: Performed By: #### 2 591314, 17128064, 5938822, 27375486, 8299150, 6766851, 8124821, 74891908, 78904885 ####[facility] [address] [place] [address] Globulin (S) [Mass/Vol] 3.4 g/dL Normal 1.4-4.0 [facility] Comment on above: Performed By: #### 2 269919, 05077599, 6726014, 37044144, 4206033, 1955686, 2611884, 11285696, 88113249 ####[facility] [address] [place] [address] Glucose [Mass/Vol] 103 mg/dL Normal 55-199 [facility] Comment on above: Result Comment: If t his glucose result represents a fasting glucose, interpretation should refer to the following reference range: 55-99 mg/dL Performed By: #### 2 282410, 33557155, 0139490, 81643190, 8696117, 8006460, 4705227, 13537701, 88787948 ####[facility] [address] [place] [address] Potassium [Moles/Vol] 4.5 mmol/L Normal 3.5-5.3 [facility] Comment on above: Performed By: #### 2 205263, 18458588, 7561271, 99250149, 4162652, 3796958, 8532309, 60923799, 48806574 ####[facility] [address] [place] [address] Protein [Mass/Vol] 6.0 g/dL Normal 6.0-7.8 [facility] Comment on above: Performed By: #### 2 917179, 50964629, 3735594, 58482249, 2754158, 4022795, 5269481, 29066250, 25659969 ####[facility] [address] [place] [address] Sodium [Moles/Vol] 131 mmol/L Low 135-145 [facility] Comment on above: Performed By: #### 2 736703, 12769299, 2578867, 86984652, 7832846, 6046165, 6350626, 47704891, 73375049 ####[facility] [address] [place] [address] Urea nitrogen [Mass/Vol] 12 mg/dL Normal 5-21 [facility] Comment on above: Performed By: #### 2 996780, 77510250, 0540202, 09467222, 2686204, 4793473, 1106293, 88818160, 36446764 ####[facility] [address] [place] [address] Urea nitrogen/Creatinine [Mass ratio] 17 No Units Normal 10-20 [facility] Comment on above: Performed By: #### 2 994692, 99403482, 3577169, 65238221, 0208869, 8762615, 3339335, 62186739, 04709761 ####[facility] [address] [place] [address] Ironon 02-10-2023 Iron [Mass/Vol] 27 microgram/dL Low 35-153 [facility] Comment on above: Performed By: #### 2 839097, 63075353, 4411815, 26666913, 6943431, 3132953, 0394257, 53732267, 91306783 ####[facility] [address] [place] [address] Magnesiumon 02-10-2023 Magnesium [Mass/Vol] 1.6 mg/dL Normal 1.3-2.4 [facility] Comment on above: Performed By: #### 2 124161, 85335751, 9442206, 97849260, 1246020, 2143990, 2278710, 92035503, 46303144 ####[facility] [address] [place] [address] Morphon 02-10-2023 Anisocytosis Ql (Bld) Present Normal [facility] Comment on above: Order Comment: Order Added by Discern Expert. Performed By: #### 2 359489, 47077676, 7495044, 24936421, 6802470, 1465741, 4863767, 13027312, 21155719 ####[facility] [address] [place] [address] Hypochromia Auto Ql (Bld) Present Normal [facility] Comment on above: Order Comment: Order Added by Discern Expert. Performed By: #### 2 939557, 45990139, 2399428, 17942687, 9608074, 1282352, 7012677, 92976785, 58357617 ####[facility] [address] [place] [address] Microcytes Ql (Bld) Present Normal [facility] Comment on above: Order Comment: Order Added by Discern Expert. Performed By: #### 2 072725, 34051911, 0810010, 01642758, 5370676, 9139452, 7108813, 65351603, 26848460 ####[facility] [address] [place] [address] Morphology Andrew (Bld) [Interp] See Morphology Normal [facility] Comment on above: Order Comment: Order Added by Discern Expert. Performed By: #### 2 415004, 55801296, 3022847, 70662926, 3507216, 7648974, 0571950, 34329903, 67840316 ####[facility] [address] [place] [address] Ovalocytes LM Ql (Bld) Present Normal [facility] Comment on above: Order Comment: Order Added by Discern Expert. Performed By: #### 2 108959, 37113698, 9322919, 51753046, 8479196, 2321990, 3555170, 32111840, 69589675 ####[facility] [address] [place] [address] Poikilocytosis Auto Ql (Bld) Present Normal [facility] Comment on above: Order Comment: Order Added by Discern Expert. Performed By: #### 2 325898, 36565090, 8460456, 41823743, 0630718, 2454420, 6441512, 87321327, 65942005 ####[facility] [address] [place] [address] PSA Totalon 02-10-2023 Prostate specific Ag [Mass/Vol] 1.9 ng/mL Normal 0.1-3.5 [facility] Comment on above: Result Comment: The concentration of PSA determined by different manufacturers can vary due to differences in assay methods and reagent specificity. Values obtained from different assay methods cannot be used interchangeably. The methodology used for this result was chemiluminescence using [employer]'s Access Hy[employer] PSA reagent. Performed By: #### 1 9869300 ####[address] [place] [address] Phosphoruson 02-10-2023 Phosphate [Mass/Vol] 2.3 mg/dL Normal 1.9-4.6 [facility] [facility] Comment on above: Performed By: #### 2 224596, 21299532, 8931512, 02664200, 4354046, 8004094, 1608159, 68115684, 59511079 ####[facility] [address] [place] [address] TIBC Calculatedon 02-10-2023 Iron binding capacity [Mass/Vol] 279 microgram/dL Normal 250-400 [facility] Comment on above: Performed By: #### 2 888080, 84056746, 1769495, 84852732, 9670790, 8658487, 1386981, 11473199, 18234908 ####[facility] [address] [place] [address] Transferrin [Mass/Vol] 200 mg/dL Normal 200-370 Fi [facility] Comment on above: Performed By: #### 2 191921, 33826041, 9729951, 85857995, 0113358, 9502975, 6743231, 37422742, 54901523 ####[facility] [address] [place] [address] U Protein/Creat Ratioon 01-14 Albumin Elph (U) [Mass fraction] 10.6 mg/dL Invalid Interpretation Code [facility] Comment on above: Result Comment: The reference range and other method performance specifications have not been established for this test; results should be integrated into the clinical context for interpretation. Performed By: #### 1 [id number] ####[address] [address] Creatinine (U) [Mass/Vol] 48.5 mg/dL Invalid Interpretation Code [facility] Comment on above: Result Comment: The reference range and other method performance specifications have not been established for this test; results should be integrated into the clinical context for interpretation. Performed By: #### 1 [id number] ####[facility] [address] [place] [address] U Prot/Creat Ratio 218.60 mg/gm Cr High .00-200.00 [facility] Comment on above: Performed By: #### 1 [id number] ####[facility] [address] [place] [address] Urinalysison 02-10-2023 Bacteria LM Ql (Urine sed) TRACE Normal Trace [facility] Comment on above: Performed By: #### 1 0981780 ####[facility] [address] [place] [address] Bilirubin Ql (U) Negative Normal Negative [facility] Comment on above: Performed By: #### 1 1598950 ####[facility] [address] [place] [address] Clarity (U) CLEAR Normal Clear [facility] Comment on above: Performed By: #### 1 8078245 ####[facility] [address] [place] [address] Color (U) YELLOW Normal Yellow [facility] Comment on above: Performed By: #### 1 0952824 ####[address] [address] Epithelial cells.squamous LM.HPF (Urine sed) [#/Area] 0-2 Normal 0-2 [facility] Comment on above: Performed By: #### 1 8407276 ####[address] [address] Glucose Test strip (U) [Mass/Vol] Negative Normal Negative [facility] Comment on above: Performed By: #### 1 1335941 ####[address] [address] Hemoglobin Ql (U) Negative Normal Negative [facility] Comment on above: Performed By: #### 1 0594473 ####[address] [address] Ketones (U) [Mass/Vol] Negative Normal Negative [facility] Comment on above: Performed By: #### 1 8034089 ####[address] [address] [place]ock.plasma/[place] .RBC (Bld) [Mass ratio] 0-3 Normal 0-3 [facility] Comment on above: Performed By: #### 1 7030413 ####[address] [address] Nitrite Ql (U) Negative Normal Negative [facility] Comment on above: Performed By: #### 1 6536638 ####[address] [address] pH (U) 7.0 [pH] Invalid Interpretation Code 5.0-9.0 [facility] Comment on above: Performed By: #### 1 1271062 ####[address] [address] Protein (U) [Mass/Vol] Negative Normal Negative [facility] Comment on above: Performed By: #### 1 2024513 ####[facility] [address] [place] [address] Specific gravity (U) [Rel density] 1.010 Invalid Interpretation Code 1.005-1.030 [facility] Comment on above: Performed By: #### 1 0525347 ####[facility] [address] [place] [address] Type of Urine collection method Clean Catch Normal [facility] Comment on above: Performed By: #### 1 6585216 ####[facility] [address] [place] [address] Urobilinogen Qn (U) 0.2 {Dejah'U}/dL Normal 0.0-1.0 [facility] Comment on above: Performed By: #### 1 4477695 ####[facility] [address] [place] [address] WBC Auto Ql (U) TRACE Abnormal Negative [facility] Comment on above: Performed By: #### 1 3367661 ####[facility] [address] [place] [address] WBC LM.HPF (Urine sed) [#/Area] 6-15 Abnormal 0-5 [facility] Comment on above: Performed By: #### 1 6590656 ####[address] [place] [address] eGFRon 02-10-2023 GFR/1.73 sq M.predicted among non-blacks MDRD (S/P/Bld) [Vol rate/Area] 102 mL/min/1.73 m2 Normal >=59 [facility] Comment on above: Order Comment: Order added by Discern Expert. Result Comment: Client Care Coordinator emil kidney disease could be indicated at eGFR's of less than 60 mL/min/1.73m2. Kidney failure is indicated at less than 15 mL/min/1.73m2. Performed By: #### 2 853935, 23862166, 4617551, 10096878, 9742275, 8448420, 1803092, 38442882, 08226951 ####[facility] [address] [place] [address] Physician Orderon 02-09-2023 Physician Order [id number]#1.00TI FF Normal [facility] Physician Orderon 02-08-2023 Physician Order [id number]#1.00T IFF Normal [facility] Physician Order [id number]#1.00T IFF Normal [facility] Prescriptions/Work Noteson 04-10-2022 Prescriptions/Work Notes [id number]#1.00TI Normal [facility] Discharge Instructionson Discharge Instructions [id number]#1.00TI Normal [facility] Transfer Documentson 023 Transfer Documents [id number]#1.00TI Normal [facility] BMPon 02-03-2023 Anion gap [Moles/Vol] 9 mmol/L Normal 6-16 [facility] Comment on above: Performed By: #### 1 7820547, 0757117 ####[facility] [address] [place] [address] Calcium [Mass/Vol] 10.1 mg/dL Normal 8.9-11.1 [facility] Comment on above: Performed By: #### 1 7739338, 8506994 ####[facility] [address] [place] [address] Chloride [Moles/Vol] 105 mmol/L Normal 101-111 [facility] Comment on above: Performed By: #### 1 8744828, 3708857 ####[facility] [address] [place] [address] CO2 [Moles/Vol] 21 mmol/L Normal 21-31 [facility] Comment on above: Performed By: #### 1 2107094, 1468277 ####[facility] [address] [facility] [place] [address] Creatinine [Mass/Vol] 0.7 mg/dL Normal 0.5-1.3 [facility] Comment on above: Performed By: #### 1 6860818, 8703811 ####[facility] [address] [facility] [place] [address] Glucose [Mass/Vol] 118 mg/dL Normal 55-199 [facility] Comment on above: Result Comment: If t his glucose result represents a fasting glucose, interpretation should refer to the following reference range: 55-99 mg/dL Performed By: #### 1 8827170, 1259532 ####[facility] [address] [facility] [place] [address] Potassium [Moles/Vol] 4.6 mmol/L Normal 3.5-5.3 [facility] Comment on above: Performed By: #### 1 3166410, 8120311 ####[facility] [address] [facility] [place] [address] Sodium [Moles/Vol] 130 mmol/L Low 135-145 [facility] Comment on above: Performed By: #### 1 0568804, 4158010 ####[facility] [address] [facility] [place] [address] Urea nitrogen [Mass/Vol] 12 mg/dL Normal 5-21 [facility] Comment on above: Performed By: #### 1 3960466, 8557857 ####[facility] [address] [facility] [place] [address] Urea nitrogen/Creatinine [Mass ratio] 17 No Units Normal 10-20 [facility] Comment on above: Performed By: #### 1 7892974, 8784883 ####[facility] [address] [place] [address] C Blood Charcoalon 3 Blood Culture Charcoal Normal [facility] Comment on above: Performed By: #### 1 1783891 ####[facility] [address] [place] [address] Blood Culture Charcoal Normal [facility] Comment on above: Performed By: #### 1 1585070 ####[facility] [address] [place] [address] CHEMISTRYOrdered By: SYSTEM SYSTEM on 02-03-2023 Anion gap [Moles/Vol] 9 mmol/L Normal 6 - 16 mEq/L F [facility] Remisol Calcium [Mass/Vol] 10.1 mg/dL Normal 8.9 - 11. 1 mg/dL [facility] Chloride [Moles/Vol] 105 mmol/L Normal 101 - 1 11 mmol/L [facility] CO2 [Moles/Vol] 21 mmol/L Normal 21 - 31 mmol/L [facility] Creatinine [Mass/Vol] 0.7 mg/dL Normal 0.5 - 1.3 mg/dL [facility] GFR/1.73 sq M.predicted among non-blacks MDRD (S/P/Bld) [Vol rate/Area] 102 mL/min/1.73 m2 Normal >=59mL/min/1 .73 m2 [facility] Chem S Comment on above: Interpretive Data: C hronic kidney disease could be indicated at eGFR's of less than 60 mL/min/1.73m2. Kidney failure is indicated at less than 15 mL/min/1.73m2. Glucose [Mass/Vol] 118 mg/dL Normal 55 - 199 mg/dL [facility] Remisol Comment on above: Interpretive Data: I f this glucose result represents a fasting glucose, interpretation should refer to the following reference range: 55-99 mg/dL Potassium [Moles/Vol] 4.6 mmol/L Normal 3.5 - 5.3 mmol/L [facility] Sodium [Moles/Vol] 130 mmol/L Low 135 - 145 mmol/L [facility] Urea nitrogen [Mass/Vol] 12 mg/dL Normal 5 - 21 mg/dL [facility] Remisol Urea nitrogen/Creatinine [Mass ratio] 17 mg/mg Normal 10 - 20 [facility] Discharge Note-Nursingon Discharge Note-Nursing Normal [facility] Inpatient Clinical Summaryon 02-03-2023 Inpatient Clinical Summary Normal [facility] Inpatient Patient Summaryon 02-03-2023 Inpatient Patient Summary Normal [facility] Interdisciplinary Note - Peter e Manageron 02-03-2023 Interdisciplinary Note - Returner Normal [facility] Comment on above: Result Comment: Elec tronically Signed By: Nabil HARP, Stan\.br\Date and Time Signed: 02/03/23 10:39 EST Monitor Recordon 02-03-2023 Monitor Record [id number]#1.00TI FF Normal [facility] Monitor Record [id number]#1.00TI FF Normal [facility] Monitor Record [id number]#1.00TI FF Normal [facility] Monitor Record [id number]#1.00TI FF Normal [facility] Progress Note-Physicianon Progress Note-Physician Normal [facility] Comment on above: Result Comment: Elec tronically Signed By: Madeline Horta NP\.br\Date and Time Signed: 02/03/23 13:30 EST\.br\Electronically Co-Signed By: Stefania Penaloza MD\.br\Date and Time Co-Signed: 02/03/23 16:58 EST eGFRon 02-03-2023 GFR/1.73 sq M.predicted among non-blacks MDRD (S/P/Bld) [Vol rate/Area] 102 mL/min/1.73 m2 Normal >=59 [facility] Comment on above: Order Comment: Order added by Discern Expert. Result Comment: Client Care Coordinator emil kidney disease could be indicated at eGFR's of less than 60 mL/min/1.73m2. Kidney failure is indicated at less than 15 mL/min/1.73m2. Performed By: #### 1 3388056, 2394501 ####[facility] [address] [place] [address] ACTHon 02-02-2023 Corticotropin (P) [Mass/Vol] 12.9 pg/mL Invalid Interpretation Code 7.2-63.3 [facility] Comment on above: Result Comment: ACTH reference interval for samples collected between 7 and 10 AM.Performed at: [facility] [place], [place] [id number] PhD Elizabeth Craft Performed By: #### 1 8501399, 3718629, 43217759, 0641151, 7422998, 08252242, 98828556, 0096293, 8258899, 7010993, 10209737 ####[address] [place] [address] Auto Diffon 02-02-2023 Basophils/100 WBC (Bld) 0.4 % Normal 0.0-2.0 [facility] Comment on above: Order Comment: Order Added by Discern Expert. Performed By: #### 2 600713, 65590185, 1935032, 01005652, 3264456 ####[address] [place] [address] Basophils/Leukocytes Auto (Bld) [Pure # fraction] 0.0 E9/L Normal 0.0-0.2 [facility] Comment on above: Order Comment: Order Added by Discern Expert. Performed By: #### 2 427421, 10891490, 8672305, 60030413, 4016985 ####[address] [address] Eosinophils/100 WBC (Bld) 0.4 % Normal 0.0-8.0 [facility] Comment on above: Order Comment: Order Added by Discern Expert. Performed By: #### 2 471888, 66510881, 0178975, 29203730, 3624933 ####[address] [address] Eosinophils/Leukocytes Auto (Bld) [Pure # fraction] 0.0 E9/L Normal 0.0-0.5 [facility] Comment on above: Order Comment: Order Added by Discern Expert. Performed By: #### 2 148506, 54691474, 3204948, 89134405, 3999935 ####[facility] [address] [place] [address] Lymphocytes/100 WBC (Bld) 12.1 % Low 14.0-50.0 [facility] Comment on above: Order Comment: Order Added by Discern Expert. Performed By: #### 2 123422, 66037981, 0129193, 54420535, 0969461 ####[address] [place] [address] Lymphocytes/Leukocytes Auto (Bld) [Pure # fraction] 1.0 E9/L Normal 1.0-4.0 [facility] Comment on above: Order Comment: Order Added by Monika Expert. Performed By: #### 2 907232, 28927067, 8742636, 10984386, 5249196 ####[address] [address] Monocytes/100 WBC (Bld) 7.9 % Normal 4.0-14.0 [facility] Comment on above: Order Comment: Order Added by Discern Expert. Performed By: #### 2 506534, 65594945, 9366646, 15381437, 5946984 ####[address] [address] Monocytes/Leukocytes Auto (Bld) [Pure # fraction] 0.7 E9/L Normal 0.2-1.0 [facility] Comment on above: Order Comment: Order Added by Discern Expert. Performed By: #### 2 121580, 30432825, 2406397, 54837631, 4700688 ####[facility] [address] [place] [address] Neutrophils/100 WBC (Bld) 79.2 % High 36.0-75.0 [facility] Comment on above: Order Comment: Order Added by Monika Expert. Performed By: #### 2 534157, 81447905, 8985998, 53511753, 7445186 ####[address] [address] Neutrophils/Leukocytes Auto (Bld) [Pure # fraction] 6.9 E9/L Normal 2.0-7.5 [facility] Comment on above: Order Comment: Order Added by Discern Expert. Performed By: #### 2 349208, 19437548, 7178859, 52182178, 8083817 ####[facility] [address] [place] [address] BMPon 02-02-2023 Anion gap [Moles/Vol] 12 mmol/L Normal 6-16 [facility] Comment on above: Order Comment: per franny Vidales, pt care. will check back later [id number] 02/02/2023 06:40:36 EST Performed By: #### 2 026896, 45313700, 2383094, 51832258, 7187866 ####[facility] [address] [place] [address] Calcium [Mass/Vol] 10.2 mg/dL Normal 8.9-11.1 [facility] Comment on above: Order Comment: per franny Vidales, pt care. will check back later [id number] 02/02/2023 06:40:36 EST Performed By: #### 2 317538, 91975483, 5964009, 09339358, 9372436 ####[facility] [address] [place] [address] Chloride [Moles/Vol] 102 mmol/L Normal 101-111 [facility] Comment on above: Order Comment: per franny Vidales, pt care. will check back later [id number] 02/02/2023 06:40:36 EST Performed By: #### 2 530771, 80666013, 7836930, 69665395, 7897022 ####[facility] [address] [facility] [place] [address] CO2 [Moles/Vol] 19 mmol/L Low 21-31 [facility] Comment on above: Order Comment: per franny Vidales, pt care. will check back later [id number] 02/02/2023 06:40:36 EST Performed By: #### 2 996491, 10655775, 0618629, 83016089, 0175538 ####[facility] [address] [place] [address] Creatinine [Mass/Vol] 0.8 mg/dL Normal 0.5-1.3 [facility] Comment on above: Order Comment: per franny Vidales, pt care. will check back later [id number] 02/02/2023 06:40:36 EST Performed By: #### 2 531185, 18432151, 4692027, 36690143, 4146275 ####[facility] [address] [place] [address] Glucose [Mass/Vol] 102 mg/dL Normal 55-199 [facility] Comment on above: Order Comment: per franny Vidales, pt care. will check back later [id number] 02/02/2023 06:40:36 EST Result Comment: If t his glucose result represents a fasting glucose, interpretation should refer to the following reference range: 55-99 mg/dL Performed By: #### 2 691540, 81865999, 6646836, 07980310, 0254944 ####[facility] [address] [place] [address] Potassium [Moles/Vol] 4.5 mmol/L Normal 3.5-5.3 [facility] Comment on above: Order Comment: per franny Vidales, pt care. will check back later [id number] 02/02/2023 06:40:36 EST Performed By: #### 2 010326, 88656758, 1824066, 20431252, 7320237 ####[facility] [address] [place] [address] Sodium [Moles/Vol] 128 mmol/L Low 135-145 [facility] Comment on above: Order Comment: per franny Vidales, pt care. will check back later [id number] 02/02/2023 06:40:36 EST Performed By: #### 2 787825, 32675801, 5851068, 49685163, 2031997 ####[facility] [address] [place] [address] Urea nitrogen [Mass/Vol] 12 mg/dL Normal 5-21 [facility] Comment on above: Order Comment: per p elliot Vidales, pt care. will check back later [id number] 02/02/2023 06:40:36 EST Performed By: #### 2 457726, 58577902, 7130335, 37393096, 1216582 ####[facility] [address] [place] [address] Urea nitrogen/Creatinine [Mass ratio] 15 No Units Normal 10-20 [facility] Comment on above: Order Comment: per p hleb Sobeida, pt care. will check back later [id number] 02/02/2023 06:40:36 EST Performed By: #### 2 463134, 84274337, 5547812, 29215906, 1146199 ####[facility] [address] [place] [address] C Urineon 02-02-2023 Bacteria identified Cx Nom (U) Normal [facility] Comment on above: Performed By: #### 2 251582, 75786499 ####[facility] [address] [place] [address] CBC w/ Auto Diffon 3 Erythrocyte distribution width (RBC) [Ratio] 18.9 % High 10.9-14.2 [facility] Comment on above: Performed By: #### 2 876236, 99547796, 3594235, 97323280, 0300731 ####[facility] [address] [place] [address] Hematocrit (Bld) [Volume fraction] 27.6 % Low 37.7-49.0 [facility] Comment on above: Performed By: #### 2 509781, 11983699, 7523364, 27248054, 8325719 ####[facility] [address] [place] [address] Hemoglobin (Bld) [Mass/Vol] 8.7 g/dL Low 13.5-17.5 [facility] Comment on above: Performed By: #### 2 187772, 29739926, 4992497, 83286876, 6693433 ####[facility] [address] [place] [address] MCH (RBC) [Entitic mass] 23.1 pg Low 27.0-34.0 [facility] Comment on above: Performed By: #### 2 744798, 70446150, 9567233, 57284046, 6196980 ####[address] [address] MCHC (RBC) [Mass/Vol] 31.5 g/dL Normal 31.4-36.0 [facility] Comment on above: Performed By: #### 2 335999, 44356153, 2131102, 90867397, 1295468 ####[address] [address] MCV (RBC) [Entitic vol] 73.5 fL Low 80.0-100.0 [facility] Comment on above: Performed By: #### 2 015610, 44918368, 3188069, 42184605, 2885253 ####[address] [address] Platelet mean volume (Bld) [Entitic vol] 6.8 fL Normal 6.4-10.8 [facility] Comment on above: Performed By: #### 2 967717, 15785016, 6653557, 65061176, 7678244 ####[address] [address] Platelets (Bld) [#/Vol] 272.0 E9/L Normal 150.0-500.0 [facility] Comment on above: Performed By: #### 2 551074, 97490379, 4881464, 09869683, 8295765 ####[address] [address] RBC (Bld) [#/Vol] 3.8 E12/L Low 4.3-5.9 [facility] Comment on above: Performed By: #### 2 566775, 26651404, 4417574, 79351724, 4154553 ####[facility] [address] [place] [address] WBC corrected for nucl RBC Auto (Bld) [#/Vol] 8.7 E9/L Normal 4.0-11.0 [facility] Comment on above: Performed By: #### 2 136304, 95913521, 8329128, 60209888, 0830759 ####[facility] [address] [place] [address] CHEMISTRYOrdered By: SYSTEM SYSTEM on 02-02-2023 Anion gap [Moles/Vol] 12 mmol/L Normal 6 - 16 mEq/L F [facility] Calcium [Mass/Vol] 10.2 mg/dL Normal 8.9 - 11. 1 mg/dL [facility] Chloride [Moles/Vol] 102 mmol/L Normal 101 - 1 11 mmol/L [facility] CO2 [Moles/Vol] 19 mmol/L Low 21 - 31 mmol/L [facility] Creatinine [Mass/Vol] 0.8 mg/dL Normal 0.5 - 1.3 mg/dL [facility] Remisol GFR/1.73 sq M.predicted among non-blacks MDRD (S/P/Bld) [Vol rate/Area] 98 mL/min/1.73 m2 Normal >=59mL/min/1 .73 m2 [facility] Chem S Comment on above: Interpretive Data: C hronic kidney disease could be indicated at eGFR's of less than 60 mL/min/1.73m2. Kidney failure is indicated at less than 15 mL/min/1.73m2. Glucose [Mass/Vol] 102 mg/dL Normal 55 - 199 mg/dL [facility] Comment on above: Interpretive Data: I f this glucose result represents a fasting glucose, interpretation should refer to the following reference range: 55-99 mg/dL Potassium [Moles/Vol] 4.5 mmol/L Normal 3.5 - 5.3 mmol/L [facility] Sodium [Moles/Vol] 128 mmol/L Low 135 - 145 mmol/L [facility] Urea nitrogen [Mass/Vol] 12 mg/dL Normal 5 - 21 mg/dL [facility] Urea nitrogen/Creatinine [Mass ratio] 15 mg/mg Normal 10 - 20 [facility] Remisol Consultation Noteon 02-03-20 23 Consultation Note Normal [facility] Comment on above: Result Comment: Elec tronically Signed By: Chao Kilgore M.D\Date and Time Signed: 02/02/23 13:05 EST Cortisolon 02-02-2023 Cortisol [Mass/Vol] 16.6 microgram/dL Invalid Interpretation Code 6.2-19.4 [facility] Comment on above: Result Comment: Plea se Note: The reference interval and flagging forthis test is for an AM collection. If this is a PMcollection please use: Cortisol PM: 2.3-11.9Performed at: [facility] [address] [place], [place] [id number] PhD Elizabeth Craft Performed By: #### 1 1461987, 4177115, 83486471, 9683764, 2876495, 84052253, 74848196, 0612443, 8038825, 4823604, 78792918 ####[facility] [address] [place] [address] HEMATOLOGYOrdered By: Christy jackson on 02-02-2023 Anisocytosis Ql (Bld) Present (02/02/23 8:17 AM) Normal [facility] Erythrocyte distribution width (RBC) [Ratio] 18.9 % High 10.9 - 14.2 % [facility] Hematocrit (Bld) [Volume fraction] 27.6 % Low 37.7 - 49.0 % [facility] Hemoglobin (Bld) [Mass/Vol] 8.7 g/dL Low 13.5 - 17.5 gm/dL [facility] Hypochromia Auto Ql (Bld) Present (02/02/23 8:17 AM) Normal [facility] MCH (RBC) [Entitic mass] 23.1 pg Low 27.0 - 34.0 pg [facility] MCHC (RBC) [Mass/Vol] 31.5 g/dL Normal 31.4 - 36.0 gm/dL [facility] MCV (RBC) [Entitic vol] 73.5 fL Low 80.0 - 100.0 fL [facility] Microcytes Ql (Bld) Present (02/02/23 8:17 AM) Normal [facility] Morphology Andrew (Bld) [Interp] See Morphology (02/02/23 8:17 AM) Normal [facility] Ovalocytes LM Ql (Bld) Present (02/02/23 8:17 AM) Normal [facility] Platelet mean volume (Bld) [Entitic vol] 6.8 fL Normal 6.4 - 10.8 fL [facility] Platelets (Bld) [#/Vol] 272.0 E9/L Normal 150.0 - 500.0 E9/L [facility] RBC (Bld) [#/Vol] 3.8 E12/L Low 4.3 - 5.9 E12/L [facility] WBC corrected for nucl RBC Auto (Bld) [#/Vol] 8.7 E9/L Normal 4.0 - 11.0 E9/L [facility] HEMATOLOGYOrdered By: SYSTEM SYSTEM on 02-02-2023 Basophils/100 WBC (Bld) 0.4 % Normal 0.0 - 2.0 % [facility] Basophils/Leukocytes Auto (Bld) [Pure # fraction] 0.0 E9/L Normal 0.0 - 0.2 E9/L [facility] Eosinophils/100 WBC (Bld) 0.4 % Normal 0.0 - 8.0 % [facility] Eosinophils/Leukocytes Auto (Bld) [Pure # fraction] 0.0 E9/L Normal 0.0 - 0.5 E9/L [facility] Lymphocytes/100 WBC (Bld) 12.1 % Low 14.0 - 50.0 % [facility] Lymphocytes/Leukocytes Auto (Bld) [Pure # fraction] 1.0 E9/L Normal 1.0 - 4.0 E9/L [facility] Monocytes/100 WBC (Bld) 7.9 % Normal 4.0 - 14.0 % [facility]AutoSS Monocytes/Leukocytes Auto (Bld) [Pure # fraction] 0.7 E9/L Normal 0.2 - 1.0 E9/L [facility] Neutrophils/100 WBC (Bld) 79.2 % High 36.0 - 75.0 % [facility]eAutoSS Neutrophils/Leukocytes Auto (Bld) [Pure # fraction] 6.9 E9/L Normal 2.0 - 7.5 E9/L [facility] HemeAutoSS Interdisciplinary Note - Peter e Manageron 02-02-2023 Interdisciplinary Note - Returner Normal [facility] Comment on above: Result Comment: Elec tronically Signed By: Nena Joyner\.br\Date and Time Signed: 02/02/23 14:32 EST Interdisciplinary Note - PTo n 02-02-2023 Interdisciplinary Note - PT Initial PT eval completed. 6 Clicks AM-PAC 11/05. Recommend SNF for increased therapy but pt declining and wanting PT. Pt has assist from spouse and sons. Will see daily. Normal [facility] Monitor Recordon 02-02-2023 Monitor Record [id number] FF Normal [facility] Monitor Record [id number]#1.00TI FF Normal [facility] Morphon 02-02-2023 Anisocytosis Ql (Bld) Present Normal [facility] Comment on above: Order Comment: Order Added by Discern Expert. Performed By: #### 2 701643, 05287938, 1933665, 19887811, 8028735 ####[facility] [address] [place] [address] Hypochromia Auto Ql (Bld) Present Normal [facility] Comment on above: Order Comment: Order Added by Discern Expert. Performed By: #### 2 491089, 21293813, 6475863, 16205186, 2939015 ####[facility] [address] [place] [address] Microcytes Ql (Bld) Present Normal [facility] Comment on above: Order Comment: Order Added by Discern Expert. Performed By: #### 2 617044, 12911224, 6176386, 50109566, 3982228 ####[facility] [address] [place] [address] Morphology Andrew (Bld) [Interp] See Morphology Normal [facility] Comment on above: Order Comment: Order Added by Monika Expert. Performed By: #### 2 575121, 16242498, 9564538, 20024379, 8181357 ####[facility] [address] [place] [address] Ovalocytes LM Ql (Bld) Present Normal [facility] Comment on above: Order Comment: Order Added by Discern Expert. Performed By: #### 2 256075, 69125328, 9579257, 83209369, 2496812 ####[facility] [address] [place] [address] Progress Note-Physicianon Progress Note-Physician Normal [facility] Comment on above: Result Comment: Elec tronically Signed By: Melissa Cameron\.br\Date and Time Signed: 02/02/23 16:34 EST\.br\Electronically Co-Signed By: Abdirizak MARTIN MD\.br\Date and Time Co-Signed: 02/02/23 19:16 EST Progress Note-Physician Normal [facility] Comment on above: Result Comment: Elec tronically Signed By: Madeline Horta NP\.br\Date and Time Signed: 02/02/23 13:41 EST\.br\Electronically Co-Signed By: Stefania Penaloza MD\.br\Date and Time Co-Signed: 02/02/23 16:30 EST Progress Note-Physician Normal [facility] Comment on above: Result Comment: Elec tronically Signed By: Melissa Cameron\.br\Date and Time Signed: 02/01/23 20:46 EST\.br\Electronically Co-Signed By: Abdirizak MARTIN MD\.br\Date and Time Co-Signed: 02/02/23 15:02 EST eGFRon 02-02-2023 GFR/1.73 sq M.predicted among non-blacks MDRD (S/P/Bld) [Vol rate/Area] 98 mL/min/1.73 m2 Normal >=59 [facility] Comment on above: Order Comment: Order added by Discern Expert. Result Comment: Client Care Coordinator emil kidney disease could be indicated at eGFR's of less than 60 mL/min/1.73m2. Kidney failure is indicated at less than 15 mL/min/1.73m2. Performed By: #### 2 199188, 78415577, 3953560, 71072222, 6691313 ####[facility] [address] [place] [address] Albuminon 02-01-2023 Albumin [Mass/Vol] 2.7 g/dL Low 3.3-5.0 [facility] Comment on above: Performed By: #### 1 5387276, 8336695, 43832601, 1194135, 7879992, 63565855, 61104221, 6746841, 4715794, 0082935, 00358331 ####[facility] [address] [place] [address] Auto Diffon 02-01-2023 Basophils/100 WBC (Bld) 0.5 % Normal 0.0-2.0 [facility] Comment on above: Order Comment: Order Added by Discern Expert. Performed By: #### 1 3108042, 5893473, 37429148, 9421423, 2394658, 65224316, 00471586, 6363253, 7449365, 4866828, 51756036 ####[facility] [address] [place] [address] Basophils/Leukocytes Auto (Bld) [Pure # fraction] 0.1 E9/L Normal 0.0-0.2 [facility] Comment on above: Order Comment: Order Added by Discern Expert. Performed By: #### 1 2675839, 2972055, 24209008, 5590102, 9934033, 70388030, 95826314, 0792093, 2303358, 6336668, 41089723 ####[facility] [address] [place] [address] Eosinophils/100 WBC (Bld) 0.1 % Normal 0.0-8.0 [facility] Comment on above: Order Comment: Order Added by Discern Expert. Performed By: #### 1 6552754, 3449894, 46911330, 5606073, 7790691, 04231483, 98917986, 8304886, 2831033, 5034107, 14601780 ####[facility] [address] [place] [address] Eosinophils/Leukocytes Auto (Bld) [Pure # fraction] 0.0 E9/L Normal 0.0-0.5 [facility] Comment on above: Order Comment: Order Added by Discern Expert. Performed By: #### 1 6442565, 1671801, 77651121, 6481114, 7617443, 61462690, 81677552, 2115518, 7749899, 6623275, 33603774 ####[place] [address] [place] [address] Lymphocytes/100 WBC (Bld) 8.7 % Low 14.0-50.0 [facility] Comment on above: Order Comment: Order Added by Discern Expert. Performed By: #### 1 3868427, 1174748, 41040389, 8883508, 7248996, 01208843, 51578351, 0541808, 9920038, 7137271, 77406164 ####[address] [place] [address] Lymphocytes/Leukocytes Auto (Bld) [Pure # fraction] 1.1 E9/L Normal 1.0-4.0 [facility] Comment on above: Order Comment: Order Added by Discern Expert. Performed By: #### 1 0311109, 0711223, 05672175, 7159221, 6043975, 07194067, 29468972, 4423361, 2311566, 3683191, 81131254 ####[address] [place] [address] Monocytes/100 WBC (Bld) 6.8 % Normal 4.0-14.0 [facility] Comment on above: Order Comment: Order Added by Discern Expert. Performed By: #### 1 1829753, 1923779, 69710150, 7460034, 5784253, 78847890, 98887309, 7827707, 8465988, 1097539, 83549390 ####[facility] [address] [place] [address] Monocytes/Leukocytes Auto (Bld) [Pure # fraction] 0.8 E9/L Normal 0.2-1.0 [facility] Comment on above: Order Comment: Order Added by Discern Expert. Performed By: #### 1 2410421, 3465831, 31315369, 6584164, 9578049, 16110185, 90351210, 8395386, 2262328, 9144413, 37371051 ####[address] [place] [address] Neutrophils/100 WBC (Bld) 83.9 % High 36.0-75.0 [facility] Comment on above: Order Comment: Order Added by Discern Expert. Performed By: #### 1 8927397, 0422747, 25648104, 8950323, 9537208, 37585650, 93149406, 1954052, 9533648, 7161390, 44586902 ####[address] [place] [address] Neutrophils/Leukocytes Auto (Bld) [Pure # fraction] 10.4 E9/L High 2.0-7.5 [facility] Comment on above: Order Comment: Order Added by Discern Expert. Performed By: #### 1 4076623, 5282125, 53227328, 6761962, 3090832, 26047555, 98204787, 0475004, 5893318, 9254228, 61952299 ####[facility] [address] [place] [address] BMPon 02-01-2023 Anion gap [Moles/Vol] 9 mmol/L Normal 6-16 [facility] Comment on above: Performed By: #### 1 4066854, 9197722, 94826752, 0286439, 1931442, 43189885, 28917714, 3803941, 7582231, 3673645, 22899461 ####[facility] [address] [place] [address] Calcium [Mass/Vol] 10.0 mg/dL Normal 8.9-11.1 [facility] Comment on above: Performed By: #### 1 0760274, 6979667, 75231348, 1313709, 4750162, 64340309, 49100938, 4715951, 9008847, 6601586, 66551744 ####[facility] [address] [place] [address] Chloride [Moles/Vol] 101 mmol/L Normal 101-111 [facility] Comment on above: Performed By: #### 1 3940190, 0634907, 46209517, 8181651, 1524339, 55822677, 49584299, 3821707, 1480738, 1459378, 23405085 ####[facility] [address] [place] [address] CO2 [Moles/Vol] 21 mmol/L Normal 21-31 [facility] Comment on above: Performed By: #### 1 0255972, 7488140, 55724857, 3721500, 6689841, 44833840, 26725952, 5414945, 0401540, 8834299, 78829365 ####[facility] [address] [place] [address] Creatinine [Mass/Vol] 1.0 mg/dL Normal 0.5-1.3 [facility] Comment on above: Performed By: #### 1 5216533, 9534473, 34556962, 9613570, 2776416, 44774039, 86256319, 4565497, 6676340, 0140373, 84410315 ####[facility] [address] [place] [address] Glucose [Mass/Vol] 132 mg/dL Normal 55-199 [facility] Comment on above: Result Comment: If t his glucose result represents a fasting glucose, interpretation should refer to the following reference range: 55-99 mg/dL Performed By: #### 1 0904147, 6836570, 59360309, 9162116, 4287413, 79908935, 30179439, 3199666, 8761701, 2908765, 49965787 ####[facility] [address] [place] [address] Potassium [Moles/Vol] 5.0 mmol/L Normal 3.5-5.3 [facility] Comment on above: Performed By: #### 1 1800131, 2182984, 42897981, 9309641, 7029797, 74727284, 92428859, 8500038, 0818099, 0789764, 48642077 ####[facility] [address] [place] [address] Sodium [Moles/Vol] 126 mmol/L Low 135-145 [facility] Comment on above: Performed By: #### 1 9194741, 1827840, 94796304, 2897337, 5769523, 99137942, 06459075, 2807702, 3113025, 5952237, 33831792 ####[facility] [address] [place] [address] Urea nitrogen [Mass/Vol] 12 mg/dL Normal 5-21 [facility] Comment on above: Performed By: #### 1 4168269, 0653972, 09076290, 1593202, 2528075, 42148103, 93876712, 6913469, 2441501, 7718295, 28719110 ####[facility] [address] [place] [address] Urea nitrogen/Creatinine [Mass ratio] 12 No Units Normal 10-20 [facility] Comment on above: Performed By: #### 1 2953235, 1002964, 81391359, 7079201, 6832863, 85847975, 30101826, 0136645, 4018284, 7291288, 37217782 ####[facility] [address] [place] [address] CBC w/ Auto Diffon 3 Erythrocyte distribution width (RBC) [Ratio] 18.7 % High 10.9-14.2 [facility] Comment on above: Performed By: #### 1 4434850, 9464084, 28218545, 3038034, 4135677, 70647789, 92851682, 4544206, 5107161, 7799106, 32232519 ####[facility] [address] [place] [address] Hematocrit (Bld) [Volume fraction] 28.8 % Low 37.7-49.0 [facility] Comment on above: Performed By: #### 1 9513454, 6541961, 56839425, 1880690, 5562758, 68508830, 73151580, 4295227, 8882828, 2624585, 33714374 ####[address] [place] [address] Hemoglobin (Bld) [Mass/Vol] 9.4 g/dL Low 13.5-17.5 [facility] Comment on above: Performed By: #### 1 3401019, 4736914, 36118719, 0572630, 1847157, 02628198, 72631617, 8240262, 2791698, 6810864, 54962680 ####[place] [address] MCH (RBC) [Entitic mass] 23.7 pg Low 27.0-34.0 [facility] Comment on above: Performed By: #### 1 6130907, 9188165, 46839623, 3451379, 0325974, 39307460, 35865656, 7329050, 6735140, 6914601, 52785765 ####[facility] [address] [place] [address] MCHC (RBC) [Mass/Vol] 32.5 g/dL Normal 31.4-36.0 [facility] Comment on above: Performed By: #### 1 7413013, 0139437, 98491881, 1519288, 4524948, 35859024, 90640158, 7327924, 1226011, 3503045, 58382543 ####[address] [place] [address] MCV (RBC) [Entitic vol] 72.8 fL Low 80.0-100.0 [facility] Comment on above: Performed By: #### 1 6536378, 9564865, 14926449, 5366922, 3299488, 33815241, 93278559, 7044393, 1588562, 6966160, 09729828 ####[facility] [address] [place] [address] Platelet mean volume (Bld) [Entitic vol] 7.1 fL Normal 6.4-10.8 [facility] Comment on above: Performed By: #### 1 3160627, 2460952, 40445171, 6054115, 3261292, 82395868, 58989543, 0315891, 6119930, 6814781, 51038330 ####[facility] [address] [place], [place] [address] Platelets (Bld) [#/Vol] 285.0 E9/L Normal 150.0-500.0 [facility] Comment on above: Performed By: #### 1 7451723, 9008945, 75890746, 7323498, 8771110, 95134829, 90879928, 3353525, 8768181, 2010506, 25877291 ####[facility] [address] [place] [address] RBC (Bld) [#/Vol] 4.0 E12/L Low 4.3-5.9 [facility] Comment on above: Performed By: #### 1 8697819, 4017781, 34784221, 8884226, 7208728, 18875965, 28209187, 9841088, 6351048, 3497915, 47912630 ####[facility] [address] [place] [address] WBC corrected for nucl RBC Auto (Bld) [#/Vol] 12.5 E9/L High 4.0-11.0 [facility] Comment on above: Performed By: #### 1 3798856, 6874314, 26507881, 8284769, 1609295, 86170860, 58757257, 6436135, 7851675, 5255752, 24243580 ####[facility] [address] [place] [address] CHEMISTRYOrdered By: SYSTEM SYSTEM on 02-01-2023 Albumin [Mass/Vol] 2.7 g/dL Low 3.3 - 5.0 gm/dL [facility] Anion gap [Moles/Vol] 9 mmol/L Normal 6 - 16 mEq/L [facility] Calcium [Mass/Vol] 10.0 mg/dL Normal 8.9 - 11. 1 mg/dL [facility] Chloride [Moles/Vol] 101 mmol/L Normal 101 - 1 11 mmol/L [facility] CO2 [Moles/Vol] 21 mmol/L Normal 21 - 31 mmol/L [facility] Creatinine [Mass/Vol] 1.0 mg/dL Normal 0.5 - 1.3 mg/dL [facility] GFR/1.73 sq M.predicted among non-blacks MDRD (S/P/Bld) [Vol rate/Area] 83 mL/min/1.73 m2 Normal >=59mL/min/1 .73 m2 [facility] Chem S Comment on above: Interpretive Data: C hronic kidney disease could be indicated at eGFR's of less than 60 mL/min/1.73m2. Kidney failure is indicated at less than 15 mL/min/1.73m2. Glucose [Mass/Vol] 132 mg/dL Normal 55 - 199 mg/dL [facility] Comment on above: Interpretive Data: I f this glucose result represents a fasting glucose, interpretation should refer to the following reference range: 55-99 mg/dL Potassium [Moles/Vol] 5.0 mmol/L Normal 3.5 - 5.3 mmol/L [facility] Protein [Mass/Vol] 6.1 g/dL Normal 6.0 - 7.8 gm/dL [facility] Sodium [Moles/Vol] 126 mmol/L Low 135 - 145 mmol/L [facility] TSH Qn 2.03 m[IU]/L Normal 0.34 - 5.60 mcIU/mL [facility] Urea nitrogen [Mass/Vol] 12 mg/dL Normal 5 - 21 mg/dL [facility] Urea nitrogen/Creatinine [Mass ratio] 12 mg/mg Normal 10 - 20 [facility] Troponin I.cardiac [Mass/Vol] 24.40 pg/mL Normal 15.90 - 38.40 pg/mL [facility] Comment on above: Interpretive Data: T he 95% CI (Confidence Interval) PPV (Positive Predictive Value) for myocardial infarction in females is 38 pg/mL, in males 51 pg/mL. The results should be used in conjunction with clinical conditions of myocardial infarction. (Access High Sensitivity Troponin I Instructions For Use, Yasmin Kam[employer], October 2017) Consultation Noteon 02-02-20 Consultation Note Normal [facility] Comment on above: Result Comment: Elec tronically Signed By: Ca KNIGHT, Stefania\.br\Date and Time Signed: 02/01/23 15:17 EST HEMATOLOGYOrdered By: Christy jackson on 02-01-2023 Anisocytosis Ql (Bld) Present (02/01/23 5:57 AM) Normal [facility]eMan[facility] Erythrocyte distribution width (RBC) [Ratio] 18.7 % High 10.9 - 14.2 % [facility] Hematocrit (Bld) [Volume fraction] 28.8 % Low 37.7 - 49.0 % [facility] Hemoglobin (Bld) [Mass/Vol] 9.4 g/dL Low 13.5 - 17.5 gm/dL [facility] Hypochromia Auto Ql (Bld) Present (02/01/23 5:57 AM) Normal [facility] MCH (RBC) [Entitic mass] 23.7 pg Low 27.0 - 34.0 pg [facility] MCHC (RBC) [Mass/Vol] 32.5 g/dL Normal 31.4 - 36.0 gm/dL [facility] MCV (RBC) [Entitic vol] 72.8 fL Low 80.0 - 100.0 fL [facility] Microcytes Ql (Bld) Present (02/01/23 5:57 AM) Normal [facility] Morphology Andrew (Bld) [Interp] See Morphology (02/01/23 5:57 AM) Normal [facility] Ovalocytes LM Ql (Bld) Present (02/01/23 5:57 AM) Normal [facility] Platelet mean volume (Bld) [Entitic vol] 7.1 fL Normal 6.4 - 10.8 fL [facility] Platelets (Bld) [#/Vol] 285.0 E9/L Normal 150.0 - 500.0 E9/L [facility] Polychromasia LM Ql (Bld) Present (02/01/23 5:57 AM) Normal [facility] RBC (Bld) [#/Vol] 4.0 E12/L Low 4.3 - 5.9 E12/L [facility] WBC corrected for nucl RBC Auto (Bld) [#/Vol] 12.5 E9/L High 4.0 - 11.0 E9/L [facility] HEMATOLOGYOrdered By: [employer] SYSTEM on 02-01-2023 Basophils/100 WBC (Bld) 0.5 % Normal 0.0 - 2.0 % [facility] Basophils/Leukocytes Auto (Bld) [Pure # fraction] 0.1 E9/L Normal 0.0 - 0.2 E9/L [facility] Eosinophils/100 WBC (Bld) 0.1 % Normal 0.0 - 8.0 % [facility] Eosinophils/Leukocytes Auto (Bld) [Pure # fraction] 0.0 E9/L Normal 0.0 - 0.5 E9/L [facility] Lymphocytes/100 WBC (Bld) 8.7 % Low 14.0 - 50.0 % [facility] Lymphocytes/Leukocytes Auto (Bld) [Pure # fraction] 1.1 E9/L Normal 1.0 - 4.0 E9/L [facility] Monocytes/100 WBC (Bld) 6.8 % Normal 4.0 - 14.0 % [facility] Monocytes/Leukocytes Auto (Bld) [Pure # fraction] 0.8 E9/L Normal 0.2 - 1.0 E9/L [facility] Neutrophils/100 WBC (Bld) 83.9 % High 36.0 - 75.0 % [facility] Neutrophils/Leukocytes Auto (Bld) [Pure # fraction] 10.4 E9/L High 2.0 - 7.5 E9/L [facility] HEMATOLOGYOrdered By: Derek Feldman on 02-01-2023 Path Review Granulocytic leukocytosis with reactive monocytes, consistent with infectious or reactive process. No increase of basophils or eosinophils. Anemia with anisocytosis, microcytes, occasional ovalocytes and mild polychromasia. Clinical correlation is indicated for etiology.D64.9CPT 14293 Invalid Interpretation Code [facility] Katelynn Interdisciplinary Note - Peter e Manageron 02-01-2023 Interdisciplinary Note - Returner Normal [facility] Comment on above: Result Comment: Elec tronically Signed By: Nena Joyner\.br\Date and Time Signed: 02/01/23 11:39 EST Interdisciplinary Note - Mauricio singon 02-01-2023 Interdisciplinary Note - Nursing Normal [facility] Interdisciplinary Note - Samuel n 02-01-2023 Interdisciplinary Note - OT Normal [facility] Message from Medicareon 01-14 Message from Medicare [id number]#1.00TI FF Normal [facility] Monitor Recordon 02-01-2023 Monitor Record [id number]#1.00TI FF Normal [facility] Monitor Record [id number]#1.00TI FF Normal [facility] Morphon 02-01-2023 Anisocytosis Ql (Bld) Present Normal [facility] Comment on above: Order Comment: Order Added by Discern Expert. Performed By: #### 1 6858550, 3738025, 85111840, 5612268, 6003981, 75492829, 11300207, 7210405, 6628650, 8119357, 94503084 ####[facility] [address] [place] [address] Hypochromia Auto Ql (Bld) Present Normal [facility] Comment on above: Order Comment: Order Added by Discern Expert. Performed By: #### 1 9907789, 1488244, 41428360, 9939790, 3064275, 68528558, 71449871, 4078423, 0659655, 7523669, 28192874 ####[facility] [address] [place] [address] Microcytes Ql (Bld) Present Normal [facility] Comment on above: Order Comment: Order Added by Discern Expert. Performed By: #### 1 6448315, 1187200, 36101167, 6134452, 6954597, 02917761, 55675319, 6125342, 3531459, 5808118, 55755376 ####[address] [place] [address] Morphology Andrew (Bld) [Interp] See Morphology Normal [facility] Comment on above: Order Comment: Order Added by Discern Expert. Performed By: #### 1 5403037, 6928714, 58354871, 7964647, 6937169, 00407098, 89449491, 5909533, 7631832, 5524751, 88777099 ####[address] [place] [address] Ovalocytes LM Ql (Bld) Present Normal [facility] Comment on above: Order Comment: Order Added by Discern Expert. Performed By: #### 1 9404918, 9213093, 11082986, 2242203, 7141718, 09024830, 22028809, 7439560, 6715747, 7978691, 30408093 ####[address] [place] [address] Polychromasia LM Ql (Bld) Present Normal [facility] Comment on above: Order Comment: Order Added by Discern Expert. Performed By: #### 1 7016579, 8116373, 77103224, 5764936, 5353563, 22988900, 31177592, 6273921, 3904691, 4250951, 63674712 ####[address] [place] [address] Path. Reviewon 02-01-2023 Path Review Invalid Interpretation Code [facility] Comment on above: Order Comment: Order Added by Discern Expert. Performed By: #### 1 9323999, 9956009, 77476731, 6860580, 0437334, 56515065, 25824222, 6293680, 0121610, 8185586, 61834812 ####[facility] [address] [place] [address] Reference Laboratory Testing Ordered By: Danilo PaytonUser on 02-01-2023 Corticotropin (P) [Mass/Vol] 12.9 pg/mL Invalid Interpretation Code 7.2-63.3pg/m L [facility] [employer]Out[employer] Comment on above: Result Comment: ACTH reference interval for samples collected between 7 and 10 AM. Performed at: [facility] [employer] [id number] PhD Elizabeth Craft Cortisol [Mass/Vol] 16.6 ug/dL Invalid Interpretation Code 6.2-19.4mcg/ dL [facility] [employer] Comment on above: Result Comment: Nellie babb Note: The reference interval and flagging for this test is for an AM collection. If this is a PM collection please use: Cortisol PM: 2.3-11.9 Performed at: [employer] [id number] PhD Elizabeth Craft TSH With T4fr Reflexon 02-01 TSH Qn 2.03 m[IU]/L Normal 0.34-5.60 [facility] Comment on above: Performed By: #### 1 3776872, 9876602, 22823218, 6306087, 0799028, 92739420, 33724563, 3550508, 6904510, 2852350, 75497582 ####[facility] [address] [place] [address] Total Proteinon 02-01-2023 Protein [Mass/Vol] 6.1 g/dL Normal 6.0-7.8 [facility] Comment on above: Performed By: #### 1 4776073, 6257673, 35982651, 2010664, 7325989, 26836551, 04839089, 9919473, 7042382, 7898500, 10885440 ####[facility] [address] [place] [address] Troponin 9 Hr.on 02-01-2023 Troponin I.cardiac [Mass/Vol] 24.40 pg/mL Normal 15.90-38.40 [facility] Comment on above: Result Comment: The 95% CI (Confidence Interval) PPV (Positive Predictive Value) for myocardial infarction in females is 38 pg/mL, in males 51 pg/mL. The results should be used in conjunction with clinical conditions of myocardial infarction.(Access High Sensitivity Troponin I Instructions For Use, [employer], October 2017) Performed By: #### 1 [id number] ####[facility] [address] [place] [address] eGFRon 02-01-2023 GFR/1.73 sq M.predicted among non-blacks MDRD (S/P/Bld) [Vol rate/Area] 83 mL/min/1.73 m2 Normal >=59 [facility] Comment on above: Order Comment: Order added by Discern Expert. Result Comment: Client Care Coordinator emil kidney disease could be indicated at eGFR's of less than 60 mL/min/1.73m2. Kidney failure is indicated at less than 15 mL/min/1.73m2. Performed By: #### 1 2136685, 9456083, 46946189, 8087154, 5014628, 04926783, 44013645, 0562682, 4291740, 6429161, 81227340 ####[facility] [address] [place] [address] Auto Diffon 01-31-2023 Basophils/100 WBC (Bld) 0.5 % Normal 0.0-2.0 [facility] Comment on above: Order Comment: Order Added by Discern Expert. Performed By: #### 1 1623929, 70469171, 0811511, 7667437, 6432256, 8586450541, 4507499 ####[facility] [address] [place] [address] Basophils/Leukocytes Auto (Bld) [Pure # fraction] 0.1 E9/L Normal 0.0-0.2 [facility] Comment on above: Order Comment: Order Added by Discern Expert. Performed By: #### 1 [id number], [id number], [id number] ####[id number] [place] [address] Eosinophils/100 WBC (Bld) 0.1 % Normal 0.0-8.0 [facility] Comment on above: Order Comment: Order Added by Discern Expert. Performed By: #### 1 [id number], [id number], [id number], [id number], [id number] ####[id number] [place] [address] Eosinophils/Leukocytes Auto (Bld) [Pure # fraction] 0.0 E9/L Normal 0.0-0.5 [facility] Comment on above: Order Comment: Order Added by Discern Expert. Performed By: #### 1 1827005, 54476607, 6544118, 2241992, 1258991, [id number], 4471751 ####[address] [address] Lymphocytes/100 WBC (Bld) 6.8 % Low 14.0-50.0 [facility] Comment on above: Order Comment: Order Added by Monika Expert. Performed By: #### 1 9209394, 52115676, 1654877, 4438108, 3773458, [id number], 8014384 ####[address] [address] Lymphocytes/Leukocytes Auto (Bld) [Pure # fraction] 1.1 E9/L Normal 1.0-4.0 [facility] Comment on above: Order Comment: Order Added by Discern Expert. Performed By: #### 1 2504058, 37884462, 0583570, 6063147, 7864813, 1716731594, 4138513 ####[address] [address] Monocytes/100 WBC (Bld) 4.3 % Normal 4.0-14.0 [facility] Comment on above: Order Comment: Order Added by Monika Expert. Performed By: #### 1 8741571, 80960790, 9444640, 8124728, 4707210, 9314444831, 3681497 ####[facility] [address] [place] [address] Monocytes/Leukocytes Auto (Bld) [Pure # fraction] 0.7 E9/L Normal 0.2-1.0 [facility] Comment on above: Order Comment: Order Added by Discern Expert. Performed By: #### 1 8392852, 51073060, 7220942, 7347422, 7493696, 7737826057, 4052468 ####[address] [place] [address] Neutrophils/100 WBC (Bld) 88.3 % High 36.0-75.0 [facility] Comment on above: Order Comment: Order Added by Discern Expert. Performed By: #### 1 7674116, 85246082, 1991656, 4936890, 7084794, 1115916526, 6758142 ####[facility] [address] [place] [address] Neutrophils/Leukocytes Auto (Bld) [Pure # fraction] 14.2 E9/L High 2.0-7.5 [facility] Comment on above: Order Comment: Order Added by Discern Expert. Performed By: #### 1 3660152, 34428339, 6001240, 7724907, 4719523, [id number], 9705830 ####[address] [place] [address] BMPon 01-31-2023 Creatinine [Mass/Vol] 0.9 mg/dL Normal 0.5-1.3 [facility] Comment on above: Performed By: #### 1 9789660, 70979847, 7552557, 4481228, 6065406, 4616797130, 5227595 ####[address] [place] [address] Urea nitrogen [Mass/Vol] 9 mg/dL Normal 5-21 [facility] Comment on above: Performed By: #### 1 7310708, 28451257, 3074615, 0518765, 8833632, 5898129847, 3267567 ####[facility] [address] [place] [address] Urea nitrogen/Creatinine [Mass ratio] 10 No Units Normal 10-20 [facility] Comment on above: Performed By: #### 1 9806730, 32306195, 9754081, 2582863, 2183238, 8179549273, 4732220 ####[facility] [address] [place] [address] Anion gap [Moles/Vol] 14 mmol/L Normal 6-16 [facility] Comment on above: Performed By: #### 1 4934396, 09413683, 6145957, 1166740, 9668191, 6485933217, 1597995 ####[facility] [address] [place] [address] Calcium [Mass/Vol] 10.0 mg/dL Normal 8.9-11.1 [facility] Comment on above: Performed By: #### 1 7833206, 96791669, 5041198, 5823183, 7030934, 5182293216, 1154455 ####[facility] [address] [place] [address] Chloride [Moles/Vol] 96 mmol/L Low 101-111 [facility] Comment on above: Performed By: #### 1 9838409, 44893069, 0639193, 2513611, 1148103, 7620677258, 4027756 ####[facility] [address] [place] [address] CO2 [Moles/Vol] 18 mmol/L Low 21-31 [facility] Comment on above: Performed By: #### 1 3640304, 21456213, 0475085, 9809982, 7503180, 3910208895, 0575769 ####[facility] [address] [place] [address] Glucose [Mass/Vol] 139 mg/dL Normal 55-199 [facility] Comment on above: Result Comment: If t his glucose result represents a fasting glucose, interpretation should refer to the following reference range: 55-99 mg/dL Performed By: #### 1 0007364, 06331691, 7672020, 2298572, 6220783, 2420654525, 6566545 ####[facility] [address] [place] [address] Potassium [Moles/Vol] 4.7 mmol/L Normal 3.5-5.3 [facility] Comment on above: Performed By: #### 1 8293385, 18075146, 7021521, 9156393, 8935902, 9400835864, 3739923 ####[facility] [address] [place] [address] Sodium [Moles/Vol] 123 mmol/L Low 135-145 [facility] Comment on above: Performed By: #### 1 1011263, 32731752, 6050080, 3394053, 8533934, 4876100964, 1059378 ####[address] [place] [id number] CBC w/ Auto Diffon 3 Erythrocyte distribution width (RBC) [Ratio] 18.9 % High 10.9-14.2 [facility] Comment on above: Performed By: #### 1 6163861, 84194027, 6453115, 3734175, 9297994, 5047543222, 0246991 ####[address] [place] [address] Hematocrit (Bld) [Volume fraction] 33.6 % Low 37.7-49.0 [facility] Comment on above: Performed By: #### 1 7244195, 26921285, 3240478, 7659182, 6381492, 6639909194, 5566731 ####[facility] [address] [place] [address] Hemoglobin (Bld) [Mass/Vol] 10.5 g/dL Low 13.5-17.5 [facility] Comment on above: Performed By: #### 1 8230813, 92905439, 7279162, 4204883, 2682800, 9709297747, 3692457 ####[facility] [address] [place] [address] MCH (RBC) [Entitic mass] 22.9 pg Low 27.0-34.0 [facility] Comment on above: Performed By: #### 1 9232683, 39805984, 1012462, 7785304, 4967496, 7695872798, 2362970 ####[facility] [address] [place] [address] MCHC (RBC) [Mass/Vol] 31.4 g/dL Normal 31.4-36.0 [facility] Comment on above: Performed By: #### 1 5570469, 68313057, 8759359, 1647827, 2545561, 6917288172, 9560097 ####[address] [address] MCV (RBC) [Entitic vol] 73.0 fL Low 80.0-100.0 [facility] Comment on above: Performed By: #### 1 5501757, 07511390, 5564256, 5306314, 1211181, 2130367744, 9180261 ####[address] [address] Platelet mean volume (Bld) [Entitic vol] 6.6 fL Normal 6.4-10.8 [facility] Comment on above: Performed By: #### 1 0964174, 17952768, 2801923, 4562163, 2524259, 2047118505, 5171068 ####[facility] [address] [place] [address] Platelets (Bld) [#/Vol] 367.0 E9/L Normal 150.0-500.0 [facility] Comment on above: Performed By: #### 1 8392095, 54021650, 6156010, 7981223, 8977089, 6152762443, 7479263 ####[address] [address] RBC (Bld) [#/Vol] 4.6 E12/L Normal 4.3-5.9 [facility] Comment on above: Performed By: #### 1 8648822, 28712548, 0609800, 6554087, 6351995, 1608623363, 5240178 ####[facility] [address] [place] [address] WBC corrected for nucl RBC Auto (Bld) [#/Vol] 16.1 E9/L High 4.0-11.0 [facility] Comment on above: Performed By: #### 1 7208043, 87799148, 1174272, 4449017, 2392496, 4327047467, 6686616 ####[facility] [address] [place] [address] CHEMISTRYOrdered By: SYSTEM SYSTEM on 01-31-2023 Lactate [Mass/Vol] 1.4 mmol/L Normal 0.5 - 2.2 mmol/L [facility] Troponin I.cardiac [Mass/Vol] 17.60 pg/mL Normal 15.90 - 38.40 pg/mL [facility] Comment on above: Interpretive Data: T he 95% CI (Confidence Interval) PPV (Positive Predictive Value) for myocardial infarction in females is 38 pg/mL, in males 51 pg/mL. The results should be used in conjunction with clinical conditions of myocardial infarction. (Access High Sensitivity Troponin I Instructions For Use, [employer], October 2017) Troponin I.cardiac [Mass/Vol] 14.90 pg/mL Low 15.90 - 38.40 pg/mL [facility] Comment on above: Interpretive Data: T he 95% CI (Confidence Interval) PPV (Positive Predictive Value) for myocardial infarction in females is 38 pg/mL, in males 51 pg/mL. The results should be used in conjunction with clinical conditions of myocardial infarction. (Access High Sensitivity Troponin I Instructions For Use, [employer], October 2017) CRP [Mass/Vol] 11.6 mg/dL High <=1.9mg/dL [facility] Remis ol Procalcitonin [Mass/Vol] 0.33 ng/mL Normal 0.00 - 0.50 ng/mL [facility] Comment on above: Interpretive Data: < 0.5 ng/mL Low risk of severe sepsis and/or shock >2.0 ng/mL High risk of severe sepsis and/or shock Concentrations under 0.5 ng/mL do not exclude local infections or systemic infections in their initial stages (e.g.. under six hours from onset of illness). PCT concentrations between 0.5 and 2.0 ng/mL should be interpreted with consideration of the patient's history. In this range, it is recommended to retest PCT within 6 to 24 hours. CHEMISTRYOrdered By: Kristen Belcher on 01-31-2023 Osmolality [Osmolality] 266 mosm/kg Low 275 - 295 mOsm/kg [facility] Man UA SS Creatinine (U) [Mass/Vol] 65.9 mg/dL Invalid Interpretation Code [facility] Remisol Comment on above: Interpretive Data: T he reference range and other method performance specifications have not been established for this test; results should be integrated into the clinical context for interpretation. Sodium (U) [Moles/Vol] 89 mmol/L Invalid Interpretation Code [facility] Remisol Comment on above: Interpretive Data: T he reference range and other method performance specifications have not been established for this test; results should be integrated into the clinical context for interpretation. U Osmolality 346 mOsm/kg Normal 50 - 1400 mOsm/kg [facility] Man UA SS CRPon 01-31-2023 CRP [Mass/Vol] 11.6 mg/dL High <=1.9 [facility] Comment on above: Performed By: #### 1 9670261, 00618346, 6732253, 2633310, 3677004, 0264624437, 1497467 ####[facility] [address] [place] [address] ED Clinical Summaryon 2022 ED Clinical Summary Normal [facility] ED Note-Physicianon 02-01-20 ED Note-Physician Normal [facility] Comment on above: Result Comment: Elec tronically Signed By: Cuba Finn PA-C\.br\Date and Time Signed: 01/31/23 19:35 EST\.br\Electronically Co-Signed By: Gena Garzon DO.br\Date and Time Co-Signed: 01/31/23 19:42 EST ED Patient Education Noteon 01-31-2023 ED Patient Education Note Normal [facility] ED Patient Summaryon 023 ED Patient Summary Normal [facility] HEMATOLOGYOrdered By: SYSTEM SYSTEM on 01-31-2023 Basophils/100 WBC (Bld) 0.5 % Normal 0.0 - 2.0 % [facility] HemeAutoSS Basophils/Leukocytes Auto (Bld) [Pure # fraction] 0.1 E9/L Normal 0.0 - 0.2 E9/L [facility] HemeAutoSS Eosinophils/100 WBC (Bld) 0.1 % Normal 0.0 - 8.0 % [facility] HemeAutoSS Eosinophils/Leukocytes Auto (Bld) [Pure # fraction] 0.0 E9/L Normal 0.0 - 0.5 E9/L [facility] HemeAutoSS Lymphocytes/100 WBC (Bld) 6.8 % Low 14.0 - 50.0 % [facility] HemeAutoSS Lymphocytes/Leukocytes Auto (Bld) [Pure # fraction] 1.1 E9/L Normal 1.0 - 4.0 E9/L [facility] HemeAutoSS Monocytes/100 WBC (Bld) 4.3 % Normal 4.0 - 14.0 % [facility] HemeAutoSS Monocytes/Leukocytes Auto (Bld) [Pure # fraction] 0.7 E9/L Normal 0.2 - 1.0 E9/L [facility] HemeAutoSS Neutrophils/100 WBC (Bld) 88.3 % High 36.0 - 75.0 % [facility] HemeAutoSS Neutrophils/Leukocytes Auto (Bld) [Pure # fraction] 14.2 E9/L High 2.0 - 7.5 E9/L [facility] HemeAutoSS HEMATOLOGYOrdered By: Madeline Nash on 01-31-2023 Erythrocyte distribution width (RBC) [Ratio] 18.9 % High 10.9 - 14.2 % [facility] HemeAutoSS Hematocrit (Bld) [Volume fraction] 33.6 % Low 37.7 - 49.0 % [facility] HemeAutoSS Hemoglobin (Bld) [Mass/Vol] 10.5 g/dL Low 13.5 - 17.5 gm/dL [facility] HemeAutoSS MCH (RBC) [Entitic mass] 22.9 pg Low 27.0 - 34.0 pg [facility] HemeAutoSS MCHC (RBC) [Mass/Vol] 31.4 g/dL Normal 31.4 - 36.0 gm/dL [facility] HemeAutoSS MCV (RBC) [Entitic vol] 73.0 fL Low 80.0 - 100.0 fL [facility] HemeAutoSS Platelet mean volume (Bld) [Entitic vol] 6.6 fL Normal 6.4 - 10.8 fL [facility] HemeAutoSS Platelets (Bld) [#/Vol] 367.0 E9/L Normal 150.0 - 500.0 E9/L [facility] HemeAutoSS RBC (Bld) [#/Vol] 4.6 E12/L Normal 4.3 - 5.9 E12/L [facility] HemeAutoSS WBC corrected for nucl RBC Auto (Bld) [#/Vol] 16.1 E9/L High 4.0 - 11.0 E9/L [facility] HemeAutoSS LEVOFLOXACIN:SUSC:PT:ISOLATE :ORDQN:MICOrdered By: Yaneli Mena on 01-31-2023 levoFLOXacin NAWAF [Susc] Staphylococcus epidermidis In 1 of 1 blood culture bottles drawn. Isolated from pediatric bottle Preliminary result of coagulase negative Staph (a probable contaminant) called to Melissa Euceda 02/02/2023 11:42:[address] [facility] Lactic Acidon 01-31-2023 Lactate [Mass/Vol] 1.4 mmol/L Normal 0.5-2.2 [facility] Comment on above: Performed By: #### 2 509755, 88892567 ####[facility] [address] [place] [address] Monitor Recordon 01-31-2023 Monitor Record [id number] [id number] FF Normal [facility] Osmolalityon 01-31-2023 Osmolality [Osmolality] 266 mosm/kg Low 275-295 [facility] Comment on above: Performed By: #### 2 169782 ####[facility] [address] [place] [address] Pre-Arrival Noteon 3 Pre-Arrival Note Normal [facility] Procalcitoninon 01-31-2023 Procalcitonin [Mass/Vol] 0.330 ng/mL Normal .00-.50 [facility] Comment on above: Result Comment: <0.5 ng/mL Low risk of severe sepsis and/or shock>2.0 ng/mL High risk of severe sepsis and/or shockConcentrations under 0.5 ng/mL do not exclude local infections or systemic infections in their initial stages (e.g.. under six hours from onset of illness). PCT concentrations between 0.5 and 2.0 ng/mL should be interpreted with consideration of the patient's history. In this range, it is recommended to retest PCT within 6 to 24 hours. Performed By: #### 1 4446695, 95836746, 3825087, 8503590, 0020112, 2880052663, 0273215 ####[facility] [place] [address] TETRACYCLINE:SUSC:PT:ISOLATE :ORDQN:MICOrdered By: Megha Díaz on 01-31-2023 Tetracycline NAWAF [Susc] >100,000 cfu/ml Escherichia coli [facility] TRIMETHOPRIM+SULFAMETHOXAZOL E:SUSC:PT:ISOLATE:ORDQN:MICOrdered By: Yaneli Mena on 01-31-2023 Trimethoprim+Sulfameth oxazole NAWAF [Susc] Escherichia coli In 2 of 2 blood culture bottles drawn. Isolated from aerobic and anaerobic bottles Preliminary gram stain result of gram negative rods called to Dr. Euceda 02/01/23 18:22:28 by [facility] Tetracycline NAWAF [Susc]Order ed By: Megha Díaz on 01-31-2023 Escherichia coli Escherichia coli [facility] Trimethoprim+Sulfamethoxazol e NAWAF [Susc]Ordered By: Yaneli Mena on 01-31-2023 Escherichia coli Escherichia coli [facility] Troponin 0 Hr.on 01-31-2023 Troponin I.cardiac [Mass/Vol] 15.50 pg/mL Low 15.90-38.40 [facility] Comment on above: Result Comment: The 95% CI (Confidence Interval) PPV (Positive Predictive Value) for myocardial infarction in females is 38 pg/mL, in males 51 pg/mL. The results should be used in conjunction with clinical conditions of myocardial infarction.(Access High Sensitivity Troponin I Instructions For Use, [employer], October 2017) Performed By: #### 1 7536208, 27278150, 0109508, 4246080, 3895097, 9231689120, 0695031 ####[facility] [address] [place] [address] Troponin 3 Hr.on 01-31-2023 Troponin I.cardiac [Mass/Vol] 14.90 pg/mL Low 15.90-38.40 [facility] Comment on above: Result Comment: The 95% CI (Confidence Interval) PPV (Positive Predictive Value) for myocardial infarction in females is 38 pg/mL, in males 51 pg/mL. The results should be used in conjunction with clinical conditions of myocardial infarction.([employer] High Sensitivity Troponin I Instructions For Use, [employer], October 2017) Performed By: #### 1 8905785 ####[facility] [address] [place] [address] Troponin 6 Hr.on 01-31-2023 Troponin I.cardiac [Mass/Vol] 17.60 pg/mL Normal 15.90-38.40 [facility] Comment on above: Order Comment: Pt wa s extremely cold and was shivering really bad. He has the heat turned up in the room and has multiple blankets on, I will give him time to warm up and will check back up on him in about 30 minutes [id number] 20:47:36 EST Result Comment: The 95% CI (Confidence Interval) PPV (Positive Predictive Value) for myocardial infarction in females is 38 pg/mL, in males 51 pg/mL. The results should be used in conjunction with clinical conditions of myocardial infarction.([employer] High Sensitivity Troponin I Instructions For Use, [employer], October 2017) Performed By: #### 2 560837, 44529766 ####[facility] [address] [place] [address] U Creatinineon 01-31-2023 Creatinine (U) [Mass/Vol] 65.9 mg/dL Invalid Interpretation Code [facility] Comment on above: Result Comment: The reference range and other method performance specifications have not been established for this test; results should be integrated into the clinical context for interpretation. Performed By: #### 2 871106, 8619244, 2508448 ####[facility] [address] [place] [address] U Osmolalityon 01-31-2023 U Osmolality 346 mOsm/kg Normal 50-1400 [facility] Comment on above: Performed By: #### 2 637609, 2607366, 9307639 ####[facility] [address] [place] [address] U Sodiumon 01-31-2023 Sodium (U) [Moles/Vol] 89 mmol/L Invalid Interpretation Code [facility] Comment on above: Result Comment: The reference range and other method performance specifications have not been established for this test; results should be integrated into the clinical context for interpretation. Performed By: #### 2 800474, 4289205, 5833616 ####[address] [address] UA With Cult Reflexon 2022 Bacteria LM Ql (Urine sed) 3+ /HPF Abnormal Trace [facility] Comment on above: Performed By: #### 2 304277, 20086874 ####[address] [address] Bilirubin Ql (U) Negative Normal Negative [facility] Comment on above: Performed By: #### 2 149333, 70294832 ####[address] [address] Clarity (U) CLOUDY Abnormal Clear [facility] Comment on above: Performed By: #### 2 747996, 49677116 ####[address] [address] Color (U) YELLOW Normal Yellow [facility] Comment on above: Performed By: #### 2 492765, 98090717 ####[address] [address] Epithelial cells.squamous LM.HPF (Urine sed) [#/Area] 0-2 Normal 0-2 [facility] Comment on above: Performed By: #### 2 780190, 42729082 ####[address] [place] [address] Glucose Test strip (U) [Mass/Vol] Negative Normal Negative [facility] Comment on above: Performed By: #### 2 388743, 57830381 ####[address] [address] Hemoglobin Ql (U) 2+ Abnormal Negative [facility] Comment on above: Performed By: #### 2 848488, 50037989 ####[address] [address] Ketones (U) [Mass/Vol] 1+ Abnormal Negative [facility] Comment on above: Performed By: #### 2 576876, 37292696 ####[address] [address] [place].plasma/[place] .RBC (Bld) [Mass ratio] 4-20 Normal 0-3 [facility] Comment on above: Performed By: #### 2 183346, 28921797 ####[address] [address] Nitrite Ql (U) Positive Abnormal Negative [facility] Comment on above: Performed By: #### 2 320985, 47392040 ####[address] [address] pH (U) 7.0 [pH] Invalid Interpretation Code 5.0-9.0 [facility] Comment on above: Performed By: #### 2 378438, 66263401 ####[address] [address] Protein (U) [Mass/Vol] 2+ Abnormal Negative [facility] Comment on above: Performed By: #### 2 635629, 95575850 ####[address] [address] Specific gravity (U) [Rel density] 1.020 Invalid Interpretation Code 1.005-1.030 [facility] Comment on above: Performed By: #### 2 287242, 79433689 ####[address] [place] [address] Type of Urine collection method Catheter Normal [facility] Comment on above: Performed By: #### 2 854104, 49513145 ####[place] [address] Urobilinogen Qn (U) 0.2 {Dejah'U}/dL Normal 0.0-1.0 [facility] Comment on above: Performed By: #### 2 694299, 07454653 ####[facility] [address] [place] [address] WBC Auto Ql (U) 3+ Abnormal Negative [facility] Comment on above: Performed By: #### 2 734790, 44825201 ####[facility] [address] [place], [place] [address] WBC LM.HPF (Urine sed) [#/Area] /[HPF] Abnormal 0-5 [facility] Comment on above: Performed By: #### 2 715331, 74902064 ####[facility] [address] [place], [place] [address] URINALYSISOrdered By: Shaun Belcher on 01-31-2023 Bacteria LM Ql (Urine sed) 3+ /HPF Invalid Interpretation Code Trace/HPF FT UA Auto SS Bilirubin Ql (U) Negative (01/31/23 3:49 PM) Normal Negative [facility] UA Auto SS Clarity (U) Cloudy *ABN* (01/31/23 3:49 PM) Invalid Interpretation Code Clear [facility] UA Auto SS Color (U) Yellow (01/31/23 3:49 PM) Normal Yellow [facility] UA Auto SS Epithelial cells.squamous LM.HPF (Urine sed) [#/Area] 0-2 /HPF Normal 0-2/HPF [facility] UA Aut o SS Glucose Test strip (U) [Mass/Vol] Negative (01/31/23 3:49 PM) Normal Negative [facility] UA Auto SS Hemoglobin Ql (U) 2+ *ABN* (01/31/23 3:49 PM) Invalid Interpretation Code Negative [facility] UA Auto SS Ketones (U) [Mass/Vol] 1+ *ABN* (01/31/23 3:49 PM) Invalid Interpretation Code Negative [facility] UA Auto SS [place].plasma/[place] .RBC (Bld) [Mass ratio] 4-20 /HPF Normal 0-3/HPF [facility] UA Auto SS Nitrite Ql (U) Positive *ABN* (01/31/23 3:49 PM) Invalid Interpretation Code Negative [facility] UA Auto SS pH (U) 7.0 *NA* (01/31/23 3:49 PM) Invalid Interpretation Code 5.0 - 9.0 [facility] UA Auto SS Protein (U) [Mass/Vol] 2+ *ABN* (01/31/23 3:49 PM) Invalid Interpretation Code Negative [facility] UA Auto SS Specific gravity (U) [Rel density] 1.020 *NA* (01/31/23 3:49 PM) Invalid Interpretation Code 1.005 - 1.030 [facility] UA Auto SS UA Spec Desc Catheter (01/31/23 3:49 PM) Normal [facility] UA Auto SS Urobilinogen Qn (U) 0.7307883 {Dejah'U}/dL Normal 0.0 - 1.0 EU/dL [facility] UA Auto SS WBC Auto Ql (U) 3+ *ABN* (01/31/23 3:49 PM) Invalid Interpretation Code Negative [facility] UA Auto SS WBC LM.HPF (Urine sed) [#/Area] /[HPF] Invalid Interpretation Code 0-5/HPF [facility] UA Auto SS eGFRon 01-31-2023 GFR/1.73 sq M.predicted among non-blacks MDRD (S/P/Bld) [Vol rate/Area] 94 mL/min/1.73 m2 Normal >=59 [facility] Comment on above: Order Comment: Order added by Discern Expert. Result Comment: Client Care Coordinator emil kidney disease could be indicated at eGFR's of less than 60 mL/min/1.73m2. Kidney failure is indicated at less than 15 mL/min/1.73m2. Performed By: #### 1 7361157, 57766419, 1524954, 3667768, 3144662, [id number], 3710691 ####[facility] [address] [place] [address] levoFLOXacin NAWFA [Susc]Order ed By: Yaneli Mena on 01-31-2023 Staphylococcus epidermidis Staphylococcus epidermidis [facility] CBC panel Auto (Bld)on 01-20 Erythrocyte distribution width (RBC) [Ratio] 16.5 % High 11.5 - 14.5 % [facility] Hematocrit (Bld) [Volume fraction] 25.3 % Low 41.0 - 52.0 % [facility] Hemoglobin (Bld) [Mass/Vol] 8.3 g/dL Low 13.5 - 17.5 g/dL [facility] Interpretation and review of laboratory results Abnormal [facility] MCH (RBC) [Entitic mass] 23.1 pg Low 26.0 - 34.0 pg [facility] MCHC (RBC) [Mass/Vol] 32.8 g/dL 32.0 - 36.0 g/dL [facility] MCV (RBC) [Entitic vol] 70 fL Low 80 - 100 fL [facility] Nucleated RBC/100 WBC (Bld) [Ratio] 0.0 % [facility] Platelets (Bld) [#/Vol] 322 10*3/uL [facility] RBC (Bld) [#/Vol] 3.60 10*6/uL Low [facility] WBC (Bld) [#/Vol] 7.0 10*3/uL [facility] Erythrocyte distribution width (RBC) [Ratio] 16.5 % High 11.5-14.5 [facility] Comment on above: Performed By: #### 5 8410-2 ####SARAH Mcknight ([id number])[facility] ([facility])[id number] [place] [address] Hematocrit (Bld) [Volume fraction] 25.3 % Low 41.0-52.0 [facility] Comment on above: Performed By: #### 5 8410-2 ####SARAH Mcknight ([id number])[facility] ([facility])[id number] [place] [address] Hemoglobin (Bld) [Mass/Vol] 8.3 g/dL Low 13.5-17.5 [facility] Comment on above: Performed By: #### 5 8410-2 ####SARAH Mcknight ([id number])[facility] ([facility])[address] [place] [address] MCH (RBC) [Entitic mass] 23.1 pg Low 26.0-34.0 [facility] Comment on above: Performed By: #### 5 8410-2 ####SARAH Mcknight ([id number])[facility] ([facility])[address] [place] [address] MCHC (RBC) [Mass/Vol] 32.8 g/dL Normal 32.0-36.0 [facility] Comment on above: Performed By: #### 5 8410-2 ####SARAH Mcknight ([id number])[facility] ([facility])[address] [place] [address] MCV (RBC) [Entitic vol] 70 fL Low 80-100 [facility] Comment on above: Performed By: #### 5 8410-2 ####SARAH Mcknight ([id number])[facility] ([facility])[address] [place] [address] Nucleated RBC/100 WBC (Bld) [Ratio] 0.0 /100 WBCs Normal 0.0-0.0 [facility] Comment on above: Performed By: #### 5 8410-2 ####SARAH Mcknight ([id number])[facility] ([facility])[address] [place] [address] Platelets (Bld) [#/Vol] 322 x10*3/uL Normal 150-450 [facility] Comment on above: Performed By: #### 5 8410-2 ####SARAH Mcknight ([id number])[facility] ([facility])[address] [place] [address] RBC (Bld) [#/Vol] 3.60 x10*6/uL Low 4.50-5.90 [facility] Comment on above: Performed By: #### 5 8410-2 ####SARAH Mcknight ([id number])[facility] ([facility])[address] [place] [address] WBC (Bld) [#/Vol] 7.0 x10*3/uL Normal 4.4-11.3 [facility] Comment on above: Performed By: #### 5 8410-2 ####SRAAH Mcknight ([id number])[facility] ([facility])[address] [place] [address] Magnesiumon 01-20-2023 Magnesium [Mass/Vol] 2.05 mg/dL 1.60 - 2.40 mg/dL [facility] Magnesium [Mass/Vol] 2.05 mg/dL Normal 1.60-2.40 [facility] Comment on above: Performed By: #### 1 9123-9 ####SARAH Mcknight ([id number])[facility] ([facility])[address] [place] [address] Magnesium [Mass/Vol]on 01-20 Interpretation and review of laboratory results Normal [facility] No Panel Informationon 01-20 [facility] Renal function 2000 panelon 01-20-2023 Albumin BCP dye [Mass/Vol] 2.5 g/dL Low 3.4 - 5.0 g/dL [facility] Anion gap [Moles/Vol] 12 mmol/L 10 - 2 0 mmol/L [facility] Calcium [Mass/Vol] 9.5 mg/dL 8.6 - 10. 6 mg/dL [facility] Chloride [Moles/Vol] 101 mmol/L 98 - 10 7 mmol/L [facility] CO2 [Moles/Vol] 24 mmol/L 21 - 32 mmol/L [facility] Creatinine [Mass/Vol] 0.68 mg/dL 0.50 - 1.30 mg/dL [facility] GFR/1.73 sq M.predicted MDRD (S/P/Bld) [Vol rate/Area] - PINF [facility] Comment on above: Calculations of johnny mated GFR are performed using the 2020 CKD-EPI Study Refit equation without the race variable for the IDMS-Traceable creatinine methods. https://jasn.asnjournals.org/content//ASN.18267 26014 Glucose [Mass/Vol] 101 mg/dL High 74 - 99 mg/dL [facility] Interpretation and review of laboratory results Abnormal [facility] Phosphate [Mass/Vol] 2.4 mg/dL Low 2.5 - 4 .9 mg/dL [facility] Comment on above: The performance cesar acteristics of phosphorus testing in heparinized plasma have been validated by the individual laboratory site where testing is performed. Testing on heparinized plasma is not approved by the FDA; however, such approval is not necessary. Potassium [Moles/Vol] 5.1 mmol/L 3.5 - 5.3 mmol/L [facility] Sodium [Moles/Vol] 132 mmol/L Low 136 - 145 mmol/L [facility] Urea nitrogen [Mass/Vol] 7 mg/dL 6 - 23 mg/dL [facility] Albumin BCP dye [Mass/Vol] 2.5 g/dL Low 3.4-5.0 [facility] Comment on above: Performed By: #### 2 4362-6 ####SARAH Mcknight ([id number])[facility] ([facility])[address] [place] [address] Anion gap [Moles/Vol] 12 mmol/L Normal 10-20 [facility] Comment on above: Performed By: #### 2 4362-6 ####SARAH Mcknight ([id number])[facility] ([facility])[address] [place] [address] Calcium [Mass/Vol] 9.5 mg/dL Normal 8.6-10.6 [facility] Comment on above: Performed By: #### 2 4362-6 ####SARAH OMER L ([id number])[facility] ([facility])[address] [place] [address] Chloride [Moles/Vol] 101 mmol/L Normal 98-107 [facility] Comment on above: Performed By: #### 2 4362-6 ####SARAH OMER L ([id number])[facility] ([facility])[address] [place] [address] CO2 [Moles/Vol] 24 mmol/L Normal 21-32 [facility] Comment on above: Performed By: #### 2 4362-6 ####SARAH Mcknight ([id number])[facility] ([facility])[address] [place] [address] Creatinine [Mass/Vol] 0.68 mg/dL Normal 0.50-1.30 [facility] Comment on above: Performed By: #### 2 4362-6 ####SARAH Mcknight ([id number])[facility] ([facility])[address] [place] [address] GFR/1.73 sq M.predicted MDRD (S/P/Bld) [Vol rate/Area] mL/min/{1.73_m2} Normal >60 [facility] Comment on above: Result Comment: Calc ulations of estimated GFR are performed using the 2020 CKD-EPI Study Refit equation without the race variable for the IDMS-Traceable creatinine methods.https://jasn.asnjournals.org/content//A SN.0443356475 Performed By: #### 2 4362-6 ####SARAH Mcknight ([id number])[facility] ([facility])[address] [place] [address] Glucose [Mass/Vol] 101 mg/dL High 74-99 [facility] Comment on above: Performed By: #### 2 4362-6 ####SARAH Mcknight ([id number])[facility] ([facility])[address] [place] [address] Phosphate [Mass/Vol] 2.4 mg/dL Low 2.5-4.9 [facility] Comment on above: Result Comment: The performance characteristics of phosphorus testing in heparinized plasma have been validated by the individual laboratory site where testing is performed. Testing on heparinized plasma is not approved by the FDA; however, such approval is not necessary. Performed By: #### 2 4362-6 ####SARAH Mcknight ([id number])[facility] ([facility])[address] [place] [address] Potassium [Moles/Vol] 5.1 mmol/L Normal 3.5-5.3 [facility] Comment on above: Performed By: #### 2 4362-6 ####SARAH Mcknight ([id number])[facility] ([facility])[address] [place] [address] Sodium [Moles/Vol] 132 mmol/L Low 136-145 [facility] Comment on above: Performed By: #### 2 4362-6 ####SARAH Mcknight ([id number])[facility] ([facility])[address] [place] [address] Urea nitrogen [Mass/Vol] 7 mg/dL Normal 6-23 [facility] Comment on above: Performed By: #### 2 4362-6 ####SARAH Mcknight ([id number])[facility] ([facility])[address] [place] [address] Tacrolimuson 01-20-2023 Tacrolimus (Bld) [Mass/Vol] 7.4 ng/mL Normal <=15.0 [facility] Comment on above: Order Comment: Pleas e ensure drawn prior to tacrolimus being given. Please draw other pending AM labs while drawing Tacrolimus level. FLOOR TO COLLECT.NOTE: Result was obtained using achemiluminescent microparticle immunoassay(CMIA) on the Tunnel Mucker i system.Optimal therapeutic ranges for immunosuppressantdrugs depend upon an individualpatient's current clinical state, type oforgan transplant, time post-transplant,co-administration of other immunosuppressants,and other clinical factors. The results ofthis test should be correlated with additionalclinical and laboratory data before changesin treatment regimens are made. Performed By: #### 1 1253-2 ####SARAH Mcknight ([id number])[facility] ([facility])[address] [place] [address] Tacrolimus (Bld) [Mass/Vol]O rdered By: Yan Zavala on 11-08-2023 Interpretation and review of laboratory results Normal [facility] NOTE: Result was obtained using a chemiluminescent microparticle immunoassay (CMIA) on the Tunnel Mucker i system. Optimal therapeutic ranges for immunosuppressant drugs depend upon an individual patient's current clinical state, type of organ transplant, time post-transplant, co-administration of other immunosuppressants, and other clinical factors. The results of this test should be correlated with additional clinical and laboratory data before changes in treatment regimens are made. [facility] Tacrolimus levelOrdered By: Yan Zavala on 01-20-2023 Tacrolimus (Bld) [Mass/Vol] 7.4 ng/mL NINF - 15.0 ng/mL [facility] CBC panel Auto (Bld)on 01-19 Erythrocyte distribution width (RBC) [Ratio] 16.5 % High 11.5 - 14.5 % [facility] Hematocrit (Bld) [Volume fraction] 25.3 % Low 41.0 - 52.0 % [facility] Hemoglobin (Bld) [Mass/Vol] 8.3 g/dL Low 13.5 - 17.5 g/dL [facility] Interpretation and review of laboratory results Abnormal [facility] MCH (RBC) [Entitic mass] 23.7 pg Low 26.0 - 34.0 pg [facility] MCHC (RBC) [Mass/Vol] 32.8 g/dL 32.0 - 36.0 g/dL [facility] MCV (RBC) [Entitic vol] 72 fL Low 80 - 100 fL [facility] Nucleated RBC/100 WBC (Bld) [Ratio] 0.0 % [facility] Platelets (Bld) [#/Vol] 296 10*3/uL [facility] RBC (Bld) [#/Vol] 3.50 10*6/uL Low [facility] WBC (Bld) [#/Vol] 7.5 10*3/uL [facility] Erythrocyte distribution width (RBC) [Ratio] 16.5 % High 11.5-14.5 [facility] Comment on above: Performed By: #### 5 8410-2 ####SARAH Mcknight ([id number])[facility] ([facility])[address] [place] [address] Hematocrit (Bld) [Volume fraction] 25.3 % Low 41.0-52.0 [facility] Comment on above: Performed By: #### 5 8410-2 ####SARAH Mcknight ([id number])[facility] ([facility])[address] [place] [address] Hemoglobin (Bld) [Mass/Vol] 8.3 g/dL Low 13.5-17.5 [facility] Comment on above: Performed By: #### 5 8410-2 ####SARAH Mcknight ([id number])[facility] ([facility])[address] [place] [address] MCH (RBC) [Entitic mass] 23.7 pg Low 26.0-34.0 [facility] Comment on above: Performed By: #### 5 8410-2 ####SARAH Mcknight ([id number])[facility] ([facility])[address] [place] [address] MCHC (RBC) [Mass/Vol] 32.8 g/dL Normal 32.0-36.0 [facility] Comment on above: Performed By: #### 5 8410-2 ####SARAH Mcknight ([id number])[facility] ([facility])[address] [place] [address] MCV (RBC) [Entitic vol] 72 fL Low 80-100 [facility] Comment on above: Performed By: #### 5 8410-2 ####SARAH Mcknight ([id number])[facility] ([facility])[address] [place] [address] Nucleated RBC/100 WBC (Bld) [Ratio] 0.0 /100 WBCs Normal 0.0-0.0 [facility] Comment on above: Performed By: #### 5 8410-2 ####SARAH Mcknight ([id number])[facility] ([facility])[address] [place] [address] Platelets (Bld) [#/Vol] 296 x10*3/uL Normal 150-450 [facility] Comment on above: Performed By: #### 5 8410-2 ####SARAH Mcknight ([id number])[facility] ([facility])[address] [place] [address] RBC (Bld) [#/Vol] 3.50 x10*6/uL Low 4.50-5.90 [facility] Comment on above: Performed By: #### 5 8410-2 ####SARAH Mcknight ([id number])[facility] ([facility])[address] [place] [address] WBC (Bld) [#/Vol] 7.5 x10*3/uL Normal 4.4-11.3 [facility] Comment on above: Performed By: #### 5 8410-2 ####SARAH Mcknight ([id number])[facility] ([facility])[address] [place] [address] Magnesiumon 01-19-2023 Magnesium [Mass/Vol] 1.72 mg/dL 1.60 - 2.40 mg/dL [facility] Magnesium [Mass/Vol] 1.72 mg/dL Normal 1.60-2.40 [facility] Comment on above: Performed By: #### 1 9123-9 ####SARAH Mcknight ([id number])[facility] ([facility])[address] [place] [address] Magnesium [Mass/Vol]on 01-19 Interpretation and review of laboratory results Normal [facility] No Panel Informationon 01-19 [facility] Renal function 2000 panelon 01-19-2023 Albumin BCP dye [Mass/Vol] 2.3 g/dL Low 3.4 - 5.0 g/dL [facility] Anion gap [Moles/Vol] 10 mmol/L 10 - 2 0 mmol/L [facility] Calcium [Mass/Vol] 9.2 mg/dL 8.6 - 10. 6 mg/dL [facility] Chloride [Moles/Vol] 101 mmol/L 98 - 10 7 mmol/L [facility] CO2 [Moles/Vol] 26 mmol/L 21 - 32 mmol/L [facility] Creatinine [Mass/Vol] 0.64 mg/dL 0.50 - 1.30 mg/dL [facility] GFR/1.73 sq M.predicted MDRD (S/P/Bld) [Vol rate/Area] - PINF [facility] Comment on above: Calculations of johnny mated GFR are performed using the 2020 CKD-EPI Study Refit equation without the race variable for the IDMS-Traceable creatinine methods. https://jasn.asnjournals.org/content//ASN.99917 75176 Glucose [Mass/Vol] 104 mg/dL High 74 - 99 mg/dL [facility] Interpretation and review of laboratory results Abnormal [facility] Phosphate [Mass/Vol] 2.8 mg/dL 2.5 - 4 .9 mg/dL [facility] Comment on above: The performance cesar acteristics of phosphorus testing in heparinized plasma have been validated by the individual laboratory site where testing is performed. Testing on heparinized plasma is not approved by the FDA; however, such approval is not necessary. Potassium [Moles/Vol] 5.0 mmol/L 3.5 - 5.3 mmol/L [facility] Sodium [Moles/Vol] 132 mmol/L Low 136 - 145 mmol/L [facility] Urea nitrogen [Mass/Vol] 7 mg/dL 6 - 23 mg/dL [facility] Albumin BCP dye [Mass/Vol] 2.3 g/dL Low 3.4-5.0 [facility] Comment on above: Performed By: #### 2 4362-6 ####SARAH Mcknight ([id number])[facility] ([facility])[address] [place] [address] Anion gap [Moles/Vol] 10 mmol/L Normal 10-20 [facility] Comment on above: Performed By: #### 2 4362-6 ####SARAH Mcknight ([id number])[facility] ([facility])[address] [place] [address] Calcium [Mass/Vol] 9.2 mg/dL Normal 8.6-10.6 [facility] Comment on above: Performed By: #### 2 4362-6 ####SARAH Mcknight ([id number])[facility] ([facility])[address] [place] [address] Chloride [Moles/Vol] 101 mmol/L Normal 98-107 [facility] Comment on above: Performed By: #### 2 4362-6 ####SARAH Mcknight ([id number])[facility] ([facility])[address] [place] [address] CO2 [Moles/Vol] 26 mmol/L Normal 21-32 [facility] Comment on above: Performed By: #### 2 4362-6 ####SARAH Mcknight ([id number])[facility] ([facility])[address] [place] [address] Creatinine [Mass/Vol] 0.64 mg/dL Normal 0.50-1.30 [facility] Comment on above: Performed By: #### 2 4362-6 ####SARAH Mcknight ([id number])[facility] ([facility])[address] [place] [address] GFR/1.73 sq M.predicted MDRD (S/P/Bld) [Vol rate/Area] mL/min/{1.73_m2} Normal >60 [facility] Comment on above: Result Comment: Calc ulations of estimated GFR are performed using the 2020 CKD-EPI Study Refit equation without the race variable for the IDMS-Traceable creatinine methods.https://jasn.asnjournals.org/content//A SN.2907658133 Performed By: #### 2 4362-6 ####SARAH Mcknight ([id number])[facility] ([facility])[address] [place] [address] Glucose [Mass/Vol] 104 mg/dL High 74-99 [facility] Comment on above: Performed By: #### 2 4362-6 ####SARAH Mcknight ([id number])[facility] ([facility])[address] [place] [address] Phosphate [Mass/Vol] 2.8 mg/dL Normal 2.5-4.9 [facility] Comment on above: Result Comment: The performance characteristics of phosphorus testing in heparinized plasma have been validated by the individual laboratory site where testing is performed. Testing on heparinized plasma is not approved by the FDA; however, such approval is not necessary. Performed By: #### 2 4362-6 ####SARAH Mcknight ([id number])[facility] ([facility])[address] [place] [address] Potassium [Moles/Vol] 5.0 mmol/L Normal 3.5-5.3 [facility] Comment on above: Performed By: #### 2 4362-6 ####SARAH Mcknight ([id number])[facility] ([facility])[address] [place] [address] Sodium [Moles/Vol] 132 mmol/L Low 136-145 [facility] Comment on above: Performed By: #### 2 4362-6 ####SARAH Mcknight ([id number])[facility] ([facility])[address] [place] [address] Urea nitrogen [Mass/Vol] 7 mg/dL Normal 6-23 [facility] Comment on above: Performed By: #### 2 4362-6 ####SARAH Mcknight ([id number])[facility] ([facility])[address] [place] [address] Tacrolimuson 01-19-2023 Tacrolimus (Bld) [Mass/Vol] 5.2 ng/mL Normal <=15.0 [facility] Comment on above: Order Comment: Pleas e ensure drawn prior to tacrolimus being given. Please draw other pending AM labs while drawing Tacrolimus level. FLOOR TO COLLECT.NOTE: Result was obtained using achemiluminescent microparticle immunoassay(CMIA) on the [employer] Mucker i system.Optimal therapeutic ranges for immunosuppressantdrugs depend upon an individualpatient's current clinical state, type oforgan transplant, time post-transplant,co-administration of other immunosuppressants,and other clinical factors. The results ofthis test should be correlated with additionalclinical and laboratory data before changesin treatment regimens are made. Performed By: #### 1 1253-2 ####SARAH Mcknight ([id number])[facility] ([facility])[address] [place] [address] Tacrolimus (Bld) [Mass/Vol]O rdered By: Oswaldo Garcia on 01-19-2023 Interpretation and review of laboratory results Normal [facility] NOTE: Result was obtained using a chemiluminescent microparticle immunoassay (CMIA) on the [employer] Mucker i system. Optimal therapeutic ranges for immunosuppressant drugs depend upon an individual patient's current clinical state, type of organ transplant, time post-transplant, co-administration of other immunosuppressants, and other clinical factors. The results of this test should be correlated with additional clinical and laboratory data before changes in treatment regimens are made. [facility] Tacrolimus levelOrdered By: Oswaldo Garcia on 01-19-2023 Tacrolimus (Bld) [Mass/Vol] 5.2 ng/mL [facility] - 15.0 ng/mL [facility] Bacteria identified Cx Nom ( Body fld)Ordered By: Serena Elaine on 01-18-2023 Interpretation and review of laboratory results Abnormal [facility] Microscopic observation Gram stain Nom (Unsp spec) (4+) Abundant Mixed Gram positive and Gram negative bacteria Critically abnormal [facility] Microscopic observation Gram stain Nom (Unsp spec) (4+) Abundant Polymorphonuclear leukocytes Critically abnormal [facility] CBC panel Auto (Bld)on 01-18 Erythrocyte distribution width (RBC) [Ratio] 17.0 % High 11.5 - 14.5 % [facility] Hematocrit (Bld) [Volume fraction] 27.6 % Low 41.0 - 52.0 % [facility] Hemoglobin (Bld) [Mass/Vol] 8.5 g/dL Low 13.5 - 17.5 g/dL [facility] Interpretation and review of laboratory results Abnormal [facility] MCH (RBC) [Entitic mass] 23.6 pg Low 26.0 - 34.0 pg [facility] MCHC (RBC) [Mass/Vol] 30.8 g/dL Low 32.0 - 36.0 g/dL [facility] MCV (RBC) [Entitic vol] 77 fL Low 80 - 100 fL [facility] Nucleated RBC/100 WBC (Bld) [Ratio] 0.0 % [facility] Platelets (Bld) [#/Vol] 278 10*3/uL [facility] RBC (Bld) [#/Vol] 3.60 10*6/uL Low [facility] WBC (Bld) [#/Vol] 7.7 10*3/uL [facility] Erythrocyte distribution width (RBC) [Ratio] 17.0 % High 11.5-14.5 [facility] Comment on above: Performed By: #### 5 8410-2 ####SARAH Mcknight ([id number])[facility] ([facility])[address] [place] [address] Hematocrit (Bld) [Volume fraction] 27.6 % Low 41.0-52.0 [facility] Comment on above: Performed By: #### 5 8410-2 ####SARAH Mcknight ([id number])[facility] ([facility])[address] [place] [address] Hemoglobin (Bld) [Mass/Vol] 8.5 g/dL Low 13.5-17.5 [facility] Comment on above: Performed By: #### 5 8410-2 ####SARAH Mcknight ([id number])[facility] ([facility])[address] [place] [address] MCH (RBC) [Entitic mass] 23.6 pg Low 26.0-34.0 [facility] Comment on above: Performed By: #### 5 8410-2 ####SARAH Mcknight ([id number])[facility] ([facility])[address] [place] [address] MCHC (RBC) [Mass/Vol] 30.8 g/dL Low 32.0-36.0 [facility] Comment on above: Performed By: #### 5 8410-2 ####SARAH Mcknight ([id number])[facility] ([facility])[address] [place] [address] MCV (RBC) [Entitic vol] 77 fL Low 80-100 [facility] Comment on above: Performed By: #### 5 8410-2 ####SARAH Mcknight ([id number])[facility] ([facility])[address] [place] [address] Nucleated RBC/100 WBC (Bld) [Ratio] 0.0 /100 WBCs Normal 0.0-0.0 [facility] Comment on above: Performed By: #### 5 8410-2 ####SARAH Mcknight ([id number])[facility] ([facility])[address] [place] [address] Platelets (Bld) [#/Vol] 278 x10*3/uL Normal 150-450 [facility] Comment on above: Performed By: #### 5 8410-2 ####SARAH Mcknight ([id number])[facility] ([facility])[address] [place] [address] RBC (Bld) [#/Vol] 3.60 x10*6/uL Low 4.50-5.90 [facility] Comment on above: Performed By: #### 5 8410-2 ####SARAH Mcknight ([id number])[facility] ([facility])[address] [place] [address] WBC (Bld) [#/Vol] 7.7 x10*3/uL Normal 4.4-11.3 [facility] Comment on above: Performed By: #### 5 8410-2 ####SARAH Mcknight ([id number])[facility] ([facility])[address] [place] [address] Magnesiumon 01-18-2023 Magnesium [Mass/Vol] 1.73 mg/dL 1.60 - 2.40 mg/dL [facility] Magnesium [Mass/Vol] 1.73 mg/dL Normal 1.60-2.40 [facility] Comment on above: Performed By: #### 1 9123-9 ####SARAH Mcknight ([id number])[facility] ([facility])[address] [place] [address] Magnesium [Mass/Vol]on 01-18 Interpretation and review of laboratory results Normal [facility] No Panel Informationon 01-18 [facility] Renal function 2000 panelon 01-18-2023 Albumin BCP dye [Mass/Vol] 2.3 g/dL Low 3.4 - 5.0 g/dL [facility] Anion gap [Moles/Vol] 12 mmol/L 10 - 2 0 mmol/L [facility] Calcium [Mass/Vol] 9.3 mg/dL 8.6 - 10. 6 mg/dL [facility] Chloride [Moles/Vol] 101 mmol/L 98 - 10 7 mmol/L [facility] CO2 [Moles/Vol] 24 mmol/L 21 - 32 mmol/L [facility] Creatinine [Mass/Vol] 0.63 mg/dL 0.50 - 1.30 mg/dL [facility] GFR/1.73 sq M.predicted MDRD (S/P/Bld) [Vol rate/Area] - PINF [facility] Comment on above: Calculations of johnny mated GFR are performed using the 2020 CKD-EPI Study Refit equation without the race variable for the IDMS-Traceable creatinine methods. https://jasn.asnjournals.org/content/early//ASN.07885 72609 Glucose [Mass/Vol] 111 mg/dL High 74 - 99 mg/dL [facility] Interpretation and review of laboratory results Abnormal [facility] Phosphate [Mass/Vol] 2.2 mg/dL Low 2.5 - 4 .9 mg/dL [facility] Comment on above: The performance cesar acteristics of phosphorus testing in heparinized plasma have been validated by the individual laboratory site where testing is performed. Testing on heparinized plasma is not approved by the FDA; however, such approval is not necessary. Potassium [Moles/Vol] 4.8 mmol/L 3.5 - 5.3 mmol/L [facility] Sodium [Moles/Vol] 132 mmol/L Low 136 - 145 mmol/L [facility] Urea nitrogen [Mass/Vol] 9 mg/dL 6 - 23 mg/dL [facility] Albumin BCP dye [Mass/Vol] 2.3 g/dL Low 3.4-5.0 [facility] Comment on above: Performed By: #### 2 4362-6 ####SARAH Mcknight ([id number])[facility] ([facility])[address] [place] [address] Anion gap [Moles/Vol] 12 mmol/L Normal 10-20 [facility] Comment on above: Performed By: #### 2 4362-6 ####SARAH OMER L ([id number])[facility] ([facility])[address] [place] [address] Calcium [Mass/Vol] 9.3 mg/dL Normal 8.6-10.6 [facility] Comment on above: Performed By: #### 2 4362-6 ####SARAH OMER L ([id number])[facility] ([facility])[address] [place] [address] Chloride [Moles/Vol] 101 mmol/L Normal 98-107 [facility] Comment on above: Performed By: #### 2 4362-6 ####SARAH OMER L ([id number])[facility] ([facility])[address] [place] [address] CO2 [Moles/Vol] 24 mmol/L Normal 21-32 [facility] Comment on above: Performed By: #### 2 4362-6 ####SARAH MORENOTZRODNEY L ([id number])[facility] ([facility])[address] [place] [address] Creatinine [Mass/Vol] 0.63 mg/dL Normal 0.50-1.30 [facility] Comment on above: Performed By: #### 2 4362-6 ####SARAH Mcknight ([id number])[facility] ([facility])[address] [place] [address] GFR/1.73 sq M.predicted MDRD (S/P/Bld) [Vol rate/Area] mL/min/{1.73_m2} Normal >60 [facility] Comment on above: Result Comment: Calc ulations of estimated GFR are performed using the 2020 CKD-EPI Study Refit equation without the race variable for the IDMS-Traceable creatinine methods.https://jasn.asnjournals.org/content/early//A SN.4431351150 Performed By: #### 2 4362-6 ####SARAH Mcknight ([id number])[facility] ([facility])[address] [place] [address] Glucose [Mass/Vol] 111 mg/dL High 74-99 [facility] Comment on above: Performed By: #### 2 4362-6 ####SARAH Mcknight ([id number])[facility] ([facility])[address] [place] [address] Phosphate [Mass/Vol] 2.2 mg/dL Low 2.5-4.9 [facility] Comment on above: Result Comment: The performance characteristics of phosphorus testing in heparinized plasma have been validated by the individual laboratory site where testing is performed. Testing on heparinized plasma is not approved by the FDA; however, such approval is not necessary. Performed By: #### 2 4362-6 ####SARAH Mcknight ([id number])[facility] ([facility])[address] [place] [address] Potassium [Moles/Vol] 4.8 mmol/L Normal 3.5-5.3 [facility] Comment on above: Performed By: #### 2 4362-6 ####SARAH Mcknight ([id number])[facility] ([facility])[address] [place] [address] Sodium [Moles/Vol] 132 mmol/L Low 136-145 [facility] Comment on above: Performed By: #### 2 4362-6 ####SARAH Mcknight ([id number])[facility] ([facility])[address] [place] [address] Urea nitrogen [Mass/Vol] 9 mg/dL Normal 6-23 [facility] Comment on above: Performed By: #### 2 4362-6 ####SARAH Mcknight ([id number])[facility] ([facility])[address] [place] [address] Sterile Fluid Culture/SmearO rdered By: Serena Elaine on 01-18-2023 Bacteria identified Cx Nom (Body fld) (4+) Abundant Escherichia coli Abnormal [facility] Bacteria identified Cx Nom (Body fld) (2+) Few Bacteroides ovatus group Abnormal [facility] Tacrolimuson 01-18-2023 Tacrolimus (Bld) [Mass/Vol] 7.7 ng/mL Normal <=15.0 [facility] Comment on above: Order Comment: Pleas e ensure drawn prior to tacrolimus dosing.NOTE: Result was obtained using achemiluminescent microparticle immunoassay(CMIA) on the Tunnel Mucker i system.Optimal therapeutic ranges for immunosuppressantdrugs depend upon an individualpatient's current clinical state, type oforgan transplant, time post-transplant,co-administration of other immunosuppressants,and other clinical factors. The results ofthis test should be correlated with additionalclinical and laboratory data before changesin treatment regimens are made. Performed By: #### 1 1253-2 ####SARAH Mcknight ([id number])[facility] ([facility])[address] [place] [address] Tacrolimus (Bld) [Mass/Vol]O rdered By: Ijeoma Tinajero on 01-18-2023 Interpretation and review of laboratory results Normal [facility] NOTE: Result was obtained using a chemiluminescent microparticle immunoassay (CMIA) on the Tunnel Mucker i system. Optimal therapeutic ranges for immunosuppressant drugs depend upon an individual patient's current clinical state, type of organ transplant, time post-transplant, co-administration of other immunosuppressants, and other clinical factors. The results of this test should be correlated with additional clinical and laboratory data before changes in treatment regimens are made. [facility] Tacrolimus levelOrdered By: Ijeoma Tinajero on 01-18-2023 Tacrolimus (Bld) [Mass/Vol] 7.7 ng/mL NINF - 15.0 ng/mL [facility] US KIDNEY TRANSPLANTon 01-18 US KIDNEY TRANSPLANT Normal [facility] CBC W Auto Differential pane l (Bld)on 01-17-2023 Basophils (Bld) [#/Vol] 0.03 10*3/uL [facility] Basophils/100 WBC (Bld) 0.3 % 0.0 - 2.0 % [facility] Eosinophils (Bld) [#/Vol] 0.33 10*3/uL [facility] Eosinophils/100 WBC (Bld) 3.6 % 0.0 - 6.0 % [facility] Erythrocyte distribution width (RBC) [Ratio] 16.9 % High 11.5 - 14.5 % [facility] Hematocrit (Bld) [Volume fraction] 26.8 % Low 41.0 - 52.0 % [facility] Hemoglobin (Bld) [Mass/Vol] 8.0 g/dL Low 13.5 - 17.5 g/dL [facility] Immature granulocytes (Bld) [#/Vol] 0.08 10*3/uL [facility] Immature granulocytes/100 WBC (Bld) 0.9 % 0.0 - 0.9 % [facility] Comment on above: Immature Granulocyte Count (IG) includes promyelocytes, myelocytes and metamyelocytes but does not include bands. Percent differential counts (%) should be interpreted in the context of the absolute cell counts (cells/UL). Interpretation and review of laboratory results Abnormal [facility] Lymphocytes (Bld) [#/Vol] 0.82 10*3/uL Low [facility] Lymphocytes/100 WBC (Bld) 9.0 % 13.0 - 44.0 % [facility] MCH (RBC) [Entitic mass] 22.5 pg Low 26.0 - 34.0 pg [facility] MCHC (RBC) [Mass/Vol] 29.9 g/dL Low 32.0 - 36.0 g/dL [facility] MCV (RBC) [Entitic vol] 76 fL Low 80 - 100 fL [facility] Monocytes (Bld) [#/Vol] 0.46 10*3/uL [facility] Monocytes/100 WBC (Bld) 5.0 % 2.0 - 10.0 % [facility] Neutrophils (Bld) [#/Vol] 7.41 10*3/uL [facility] Comment on above: Percent differential counts (%) should be interpreted in the context of the absolute cell counts (cells/uL). Neutrophils/100 WBC (Bld) 81.2 % 40.0 - 80.0 % [facility] Nucleated RBC/100 WBC (Bld) [Ratio] 0.0 % [facility] Platelets (Bld) [#/Vol] 276 10*3/uL [facility] RBC (Bld) [#/Vol] 3.55 10*6/uL Low [facility] WBC (Bld) [#/Vol] 9.3 10*3/uL [facility] Basophils (Bld) [#/Vol] 0.03 x10*3/uL Normal 0.00-0.10 [facility] Comment on above: Performed By: #### 5 7021-8 ####SARAH Mcknight ([id number])[facility] ([facility])[address] [place] [address] Basophils/100 WBC (Bld) 0.3 % Normal 0.0-2.0 [facility] Comment on above: Performed By: #### 5 7021-8 ####SARAH PENALOZAMORENARD L ([id number])[facility] ([facility])[address] [place] [address] Eosinophils (Bld) [#/Vol] 0.33 x10*3/uL Normal 0.00-0.70 [facility] Comment on above: Performed By: #### 5 7021-8 ####SARAH Mcknight ([id number])[facility] ([facility])[address] [place] [address] Eosinophils/100 WBC (Bld) 3.6 % Normal 0.0-6.0 [facility] Comment on above: Performed By: #### 5 7021-8 ####SARAH Mcknight ([id number])[facility] ([facility])[address] [place] [address] Immature granulocytes (Bld) [#/Vol] 0.08 x10*3/uL Normal 0.00-0.70 [facility] Comment on above: Performed By: #### 5 7021-8 ####SARAH Mcknight ([id number])[facility] ([facility])[address] [place] [address] Immature granulocytes/100 WBC (Bld) 0.9 % Normal 0.0-0.9 [facility] Comment on above: Result Comment: Ciera ture Granulocyte Count (IG) includes promyelocytes, myelocytes and metamyelocytes but does not include bands. Percent differential counts (%) should be interpreted in the context of the absolute cell counts (cells/UL). Performed By: #### 5 7021-8 ####SARAH Mcknight ([id number])[facility] ([facility])[address] [place] [address] Lymphocytes (Bld) [#/Vol] 0.82 x10*3/uL Low 1.20-4.80 [facility] Comment on above: Performed By: #### 5 7021-8 ####SARAH Mcknight ([id number])[facility] ([facility])[address] [place] [address] Lymphocytes/100 WBC (Bld) 9.0 % Normal 13.0-44.0 [facility] Comment on above: Performed By: #### 5 7021-8 ####SARAH Mcknight ([id number])[facility] ([facility])[address] [place] [address] Monocytes (Bld) [#/Vol] 0.46 x10*3/uL Normal 0.10-1.00 [facility] Comment on above: Performed By: #### 5 7021-8 ####SARAH Mcknight ([id number])[facility] ([facility])[address] [place] [address] Monocytes/100 WBC (Bld) 5.0 % Normal 2.0-10.0 [facility] Comment on above: Performed By: #### 5 7021-8 ####SARAH Mcknight ([id number])[facility] ([facility])[address] [place] [address] Neutrophils (Bld) [#/Vol] 7.41 x10*3/uL Normal 1.20-7.70 [facility] Comment on above: Result Comment: Perc ent differential counts (%) should be interpreted in the context of the absolute cell counts (cells/uL). Performed By: #### 5 7021-8 ####SARAH Mcknight ([id number])[facility] ([facility])[address] [place] [address] Neutrophils/100 WBC (Bld) 81.2 % Normal 40.0-80.0 [facility] Comment on above: Performed By: #### 5 7021-8 ####SARAH Mcknight ([id number])[facility] ([facility])[address] [place] [address] CBC panel Auto (Bld)on 01-17 Erythrocyte distribution width (RBC) [Ratio] 16.9 % High 11.5 - 14.5 % [facility] Hematocrit (Bld) [Volume fraction] 26.8 % Low 41.0 - 52.0 % [facility] Hemoglobin (Bld) [Mass/Vol] 8.0 g/dL Low 13.5 - 17.5 g/dL [facility] Interpretation and review of laboratory results Abnormal [facility] MCH (RBC) [Entitic mass] 22.5 pg Low 26.0 - 34.0 pg [facility] MCHC (RBC) [Mass/Vol] 29.9 g/dL Low 32.0 - 36.0 g/dL [facility] MCV (RBC) [Entitic vol] 76 fL Low 80 - 100 fL [facility] Nucleated RBC/100 WBC (Bld) [Ratio] 0.0 % [facility] Platelets (Bld) [#/Vol] 276 10*3/uL [facility] RBC (Bld) [#/Vol] 3.55 10*6/uL Low [facility] WBC (Bld) [#/Vol] 9.3 10*3/uL [facility] Complete blood count panelon 01-17-2023 Erythrocyte distribution width (RBC) [Ratio] 16.9 % High 11.5-14.5 [facility] Comment on above: Performed By: #### 5 8410-2 ####SARAH Mcknight ([id number])[facility] ([facility])[address] [place] [address] Performed By: #### 5 7021-8 ####SARAH Mcknight (23300)[facility] ([facility])[address] [place] [address] Hematocrit (Bld) [Volume fraction] 26.8 % Low 41.0-52.0 [facility] Comment on above: Performed By: #### 5 8410-2 ####SARAH Mcknight ([id number])[facility] ([facility])[address] [place], [place] [address] Performed By: #### 5 7021-8 ####SARAH Mcknight ([id number])[facility] ([facility])[address] [place], [place] [address] Hemoglobin (Bld) [Mass/Vol] 8.0 g/dL Low 13.5-17.5 [facility] Comment on above: Performed By: #### 5 8410-2 ####SARAH OMER L ([id number])[facility] ([facility])[address] [place], [place] [address] Performed By: #### 5 7021-8 ####SARAH OMER L ([id number])[facility] ([facility])[address] [place] [address] MCH (RBC) [Entitic mass] 22.5 pg Low 26.0-34.0 [facility] Comment on above: Performed By: #### 5 8410-2 ####SARAH Mcknight ([id number])[facility] ([facility])[address] [place], [place] [address] Performed By: #### 5 7021-8 ####SARAH Mcknight (75552)[facility] ([facility])[address] [place] [address] MCHC (RBC) [Mass/Vol] 29.9 g/dL Low 32.0-36.0 [facility] Comment on above: Performed By: #### 5 8410-2 ####SARAH Mcknigth ([id number])[facility] ([facility])[address] [place], [place] [address] Performed By: #### 5 7021-8 ####SARAH Mcknight (50227)[facility] ([facility])[address] [place], [place] [address] MCV (RBC) [Entitic vol] 76 fL Low 80-100 [facility] Comment on above: Performed By: #### 5 8410-2 ####SARAH Mcknight ([id number])[facility] ([facility])[address] [place], [place] [address] Performed By: #### 5 7021-8 ####SARAH Mcknight ([id number])[facility] ([facility])[address] [place] [address] Nucleated RBC/100 WBC (Bld) [Ratio] 0.0 /100 WBCs Normal 0.0-0.0 [facility] Comment on above: Performed By: #### 5 8410-2 ####SARAH Mcknight ([id number])[facility] ([facility])[address] [place], [place] [address] Performed By: #### 5 7021-8 ####SARAH Mcknight ([id number])[facility] ([facility])[address] [place] [address] Platelets (Bld) [#/Vol] 276 x10*3/uL Normal 150-450 [facility] Comment on above: Performed By: #### 5 8410-2 ####SARAH Mcknight (78375)[facility] ([facility])[address] [place] [address] Performed By: #### 5 7021-8 ####SARAH Mcknight ([id number])[facility] ([facility])[address] [place] [address] RBC (Bld) [#/Vol] 3.55 x10*6/uL Low 4.50-5.90 [facility] Comment on above: Performed By: #### 5 8410-2 ####SARAH Mcknight ([id number])[facility] ([facility])[address] [place] [address] Performed By: #### 5 7021-8 ####SARAH Mcknight ([id number])[facility] ([facility])[address] [place] [address] WBC (Bld) [#/Vol] 9.3 x10*3/uL Normal 4.4-11.3 [facility] Comment on above: Performed By: #### 5 8410-2 ####SARAH cMknight ([id number])[facility] ([facility])[address] [place] [address] Performed By: #### 5 7021-8 ####SARAH Mcknight ([id number])[facility] ([facility])[address] [place] [address] Magnesiumon 01-17-2023 Magnesium [Mass/Vol] 1.87 mg/dL 1.60 - 2.40 mg/dL [facility] Magnesium [Mass/Vol] 1.87 mg/dL Normal 1.60-2.40 [facility] Comment on above: Performed By: #### 1 9123-9 ####SARAH Mcknight ([id number])[facility] ([facility])[address] [place] [address] Magnesium [Mass/Vol]on 01-17 Interpretation and review of laboratory results Normal [facility] No Panel Informationon 01-17 [facility] Renal function 2000 panelon 01-17-2023 Albumin BCP dye [Mass/Vol] 2.4 g/dL Low 3.4 - 5.0 g/dL [facility] Anion gap [Moles/Vol] 11 mmol/L 10 - 2 0 mmol/L [facility] Calcium [Mass/Vol] 9.9 mg/dL 8.6 - 10. 6 mg/dL [facility] Chloride [Moles/Vol] 100 mmol/L 98 - 10 7 mmol/L [facility] CO2 [Moles/Vol] 25 mmol/L 21 - 32 mmol/L [facility] Creatinine [Mass/Vol] 0.69 mg/dL 0.50 - 1.30 mg/dL [facility] GFR/1.73 sq M.predicted MDRD (S/P/Bld) [Vol rate/Area] - PINF [facility] Comment on above: Calculations of johnny mated GFR are performed using the 2020 CKD-EPI Study Refit equation without the race variable for the IDMS-Traceable creatinine methods. https://jasn.asnjournals.org/content/early/ASN.21806 [address]00 Glucose [Mass/Vol] 103 mg/dL High 74 - 99 mg/dL [facility] Interpretation and review of laboratory results Abnormal [facility] Phosphate [Mass/Vol] 1.9 mg/dL Low 2.5 - 4 .9 mg/dL [facility] Comment on above: The performance cesar acteristics of phosphorus testing in heparinized plasma have been validated by the individual laboratory site where testing is performed. Testing on heparinized plasma is not approved by the FDA; however, such approval is not necessary. Potassium [Moles/Vol] 4.8 mmol/L 3.5 - 5.3 mmol/L [facility] Sodium [Moles/Vol] 131 mmol/L Low 136 - 145 mmol/L [facility] Urea nitrogen [Mass/Vol] 10 mg/dL 6 - 23 mg/dL [facility] Albumin BCP dye [Mass/Vol] 2.4 g/dL Low 3.4-5.0 [facility] Comment on above: Performed By: #### 2 4362-6 ####SARAH Mcknight ([id number])[facility] ([facility])[address] [place] [address] Anion gap [Moles/Vol] 11 mmol/L Normal 10-20 [facility] Comment on above: Performed By: #### 2 4362-6 ####SARAH Mcknight ([id number])[facility] ([facility])[address] [place] [address] Calcium [Mass/Vol] 9.9 mg/dL Normal 8.6-10.6 [facility] Comment on above: Performed By: #### 2 4362-6 ####SARAH Mcknight (47126)[facility] ([facility])[address] [place] [address] Chloride [Moles/Vol] 100 mmol/L Normal 98-107 [facility] Comment on above: Performed By: #### 2 4362-6 ####SARAH Mcknight ([id number])[facility] ([facility])[address] [place] [address] CO2 [Moles/Vol] 25 mmol/L Normal 21-32 [facility] Comment on above: Performed By: #### 2 4362-6 ####SARAH Mcknight (55530)[facility] ([facility])[address] [place] [address] Creatinine [Mass/Vol] 0.69 mg/dL Normal 0.50-1.30 [facility] Comment on above: Performed By: #### 2 4362-6 ####SARAH Mcknight (85655)[facility] ([facility])[address] [place] [address] GFR/1.73 sq M.predicted MDRD (S/P/Bld) [Vol rate/Area] mL/min/{1.73_m2} Normal >60 [facility] Comment on above: Result Comment: Calc ulations of estimated GFR are performed using the 2020 CKD-EPI Study Refit equation without the race variable for the IDMS-Traceable creatinine methods.https://jasn.asnjournals.org/content//A SN.2279928400 Performed By: #### 2 4362-6 ####SARAH Mcknight (47083)[facility] ([facility])[address] [place] [address] Glucose [Mass/Vol] 103 mg/dL High 74-99 [facility] Comment on above: Performed By: #### 2 4362-6 ####SARAH Mcknight ([id number])[facility] ([facility])[address] [place] [address] Phosphate [Mass/Vol] 1.9 mg/dL Low 2.5-4.9 [facility] Comment on above: Result Comment: The performance characteristics of phosphorus testing in heparinized plasma have been validated by the individual laboratory site where testing is performed. Testing on heparinized plasma is not approved by the FDA; however, such approval is not necessary. Performed By: #### 2 4362-6 ####SARAH Mcknight ([id number])[facility] ([facility])[address] [place] [address] Potassium [Moles/Vol] 4.8 mmol/L Normal 3.5-5.3 [facility] Comment on above: Performed By: #### 2 4362-6 ####SARAH Mcknight (69354)[facility] ([facility])[address] [place] [address] Sodium [Moles/Vol] 131 mmol/L Low 136-145 [facility] Comment on above: Performed By: #### 2 4362-6 ####SARAH Mcknight ([id number])[facility] ([facility])[address] [place] [address] Urea nitrogen [Mass/Vol] 10 mg/dL Normal 6-23 [facility] Comment on above: Performed By: #### 2 4362-6 ####SARAH Mcknight ([id number])[facility] ([facility])[address] [place] [address] Tacrolimuson 01-17-2023 Tacrolimus (Bld) [Mass/Vol] 6.8 ng/mL Normal <=15.0 [facility] Comment on above: Order Comment: Pleas e ensure drawn prior to tacrolimus dosing.NOTE: Result was obtained using achemiluminescent microparticle immunoassay(CMIA) on the [employer] Mucker i system.Optimal therapeutic ranges for immunosuppressantdrugs depend upon an individualpatient's current clinical state, type oforgan transplant, time post-transplant,co-administration of other immunosuppressants,and other clinical factors. The results ofthis test should be correlated with additionalclinical and laboratory data before changesin treatment regimens are made. Performed By: #### 1 1253-2 ####SARAH Mcknight ([id number])[facility] ([facility])[address] [place] [address] Tacrolimus (Bld) [Mass/Vol]o n 01-17-2023 Interpretation and review of laboratory results Normal [facility] Work Phone: NOTE: Result was obtained using a chemiluminescent microparticle immunoassay (CMIA) on the [employer] i system. Optimal therapeutic ranges for immunosuppressant drugs depend upon an individual patient's current clinical state, type of organ transplant, time post-transplant, co-administration of other immunosuppressants, and other clinical factors. The results of this test should be correlated with additional clinical and laboratory data before changes in treatment regimens are made. [facility] Work Phone: [facility] Work Phone: Tacrolimus (Bld) [Mass/Vol]O rdered By: Ila Hutchinson on 01-17-2023 Interpretation and review of laboratory results Normal [facility] NOTE: Result was obtained using a chemiluminescent microparticle immunoassay (CMIA) on the [employer] i system. Optimal therapeutic ranges for immunosuppressant drugs depend upon an individual patient's current clinical state, type of organ transplant, time post-transplant, co-administration of other immunosuppressants, and other clinical factors. The results of this test should be correlated with additional clinical and laboratory data before changes in treatment regimens are made. [facility] Tacrolimus levelon 3 Tacrolimus (Bld) [Mass/Vol] 6.8 ng/mL NINF - 15.0 ng/mL [facility] Work Phone: Tacrolimus levelOrdered By: Ila Hutchinson on 01-17-2023 Tacrolimus (Bld) [Mass/Vol] 10.9 ng/mL NINF - 15.0 ng/mL [facility] US for transplanted kidneyon 01-17-2023 Interpreted By: Julio César Ogden, and Renee Kramer STUDY: [facility] US RENAL ARTERY DUPLEX TRANSPLANT; 01/16/2023 11:24 pm INDICATION: Signs/Symptoms:evaluatio n of transplant kidney. COMPARISON: CT abdomen pelvis on 01/09/2023 ACCESSION NUMBER(S): [id number] ORDERING CLINICIAN: LIZZETTE BUSTILLOS TECHNIQUE: Grayscale, color, and spectral Doppler of the kidney transplant were performed. FINDINGS: Mildly limited evaluation due to bowel gas and body habitus. Within those limitations: TRANSPLANT KIDNEY: Transplant kidney location: Right lower quadrant The transplant kidney measures 11.4 cm in craniocaudal dimension. There is no hydronephrosis and hydroureter. No perinephric fluid collections are seen. DOPPLER EVALUATION: RESISTIVE INDICES: The resistive indices were as follows: 0.76 in the superior pole, 0.77 in the midpole, and 0.78 in the inferior pole. Wave forms are normal. TRANSPLANT RENAL ARTERY AND VEIN: The main renal artery velocity is 87.5 centimeter/second at the hilum, 154.0 centimeter/second at the midportion and 201.6 centimeter/second at the anastomosis. The adjacent iliac artery velocity is 127.5 centimeter/second superior to the anastomosis Transplant renal vein is patent. The peak velocity in the main renal vein is 29.9 centimeter/second at the hilum, 37.6 cm/sec at the midportion and 57.0 centimeter/second at the anastomosis, in the adjacent iliac vein 53.9 centimeter/second inferior to the anastomosis 66.7 centimeter/seconds superior to the anastomosis. IMAGING US for transplanted kidneyOr dered By: Julio César Ogden on 01-17-2023 [facility] Work Phone: CBC panel Auto (Bld)on 01-16 Erythrocyte distribution width (RBC) [Ratio] 17.2 % High 11.5 - 14.5 % [facility] Hematocrit (Bld) [Volume fraction] 28.1 % Low 41.0 - 52.0 % [facility] Hemoglobin (Bld) [Mass/Vol] 8.8 g/dL Low 13.5 - 17.5 g/dL [facility] Interpretation and review of laboratory results Abnormal [facility] MCH (RBC) [Entitic mass] 23.7 pg Low 26.0 - 34.0 pg [facility] MCHC (RBC) [Mass/Vol] 31.3 g/dL Low 32.0 - 36.0 g/dL [facility] MCV (RBC) [Entitic vol] 76 fL Low 80 - 100 fL [facility] Nucleated RBC/100 WBC (Bld) [Ratio] 0.0 % [facility] Platelets (Bld) [#/Vol] 282 10*3/uL [facility] RBC (Bld) [#/Vol] 3.71 10*6/uL [facility] WBC (Bld) [#/Vol] 9.6 10*3/uL [facility] Erythrocyte distribution width (RBC) [Ratio] 17.2 % High 11.5-14.5 [facility] Comment on above: Performed By: #### 5 8410-2 ####SARAH Mcknight ([id number])[facility] ([facility])[address] [place] [address] Hematocrit (Bld) [Volume fraction] 28.1 % Low 41.0-52.0 [facility] Comment on above: Performed By: #### 5 8410-2 ####SARAH Mcknight ([id number])[facility] ([facility])[address] [place] [address] Hemoglobin (Bld) [Mass/Vol] 8.8 g/dL Low 13.5-17.5 [facility] Comment on above: Performed By: #### 5 8410-2 ####SARAH Mcknight ([id number])[facility] ([facility])[address] [place] [address] MCH (RBC) [Entitic mass] 23.7 pg Low 26.0-34.0 [facility] Comment on above: Performed By: #### 5 8410-2 ####SARAH Mcknight ([id number])[facility] ([facility])[address] [place] [address] MCHC (RBC) [Mass/Vol] 31.3 g/dL Low 32.0-36.0 [facility] Comment on above: Performed By: #### 5 8410-2 ####SARAH Mcknight ([id number])[facility] ([facility])[address] [place] [address] MCV (RBC) [Entitic vol] 76 fL Low 80-100 [facility] Comment on above: Performed By: #### 5 8410-2 ####SARAH Mcknight ([id number])[facility] ([facility])[address] [place] [address] Nucleated RBC/100 WBC (Bld) [Ratio] 0.0 /100 WBCs Normal 0.0-0.0 [facility] Comment on above: Performed By: #### 5 8410-2 ####SARAH Mcknight ([id number])[facility] ([facility])[address] [place] [address] Platelets (Bld) [#/Vol] 282 x10*3/uL Normal 150-450 [facility] Comment on above: Performed By: #### 5 8410-2 ####SARAH Mcknight ([id number])[facility] ([facility])[address] [place] [address] RBC (Bld) [#/Vol] 3.71 x10*6/uL Low 4.50-5.90 [facility] Comment on above: Performed By: #### 5 8410-2 ####SARAH Mcknight ([id number])[facility] ([facility])[address] [place] [address] WBC (Bld) [#/Vol] 9.6 x10*3/uL Normal 4.4-11.3 [facility] Comment on above: Performed By: #### 5 8410-2 ####SARAH Mcknight ([id number])[facility] ([facility])[address] [place] [address] Magnesiumon 01-16-2023 Magnesium [Mass/Vol] 1.70 mg/dL 1.60 - 2.40 mg/dL [facility] Magnesium [Mass/Vol] 1.70 mg/dL Normal 1.60-2.40 [facility] Comment on above: Performed By: #### 1 9123-9 ####SARAH Mcknight ([id number])[facility] ([facility])[address] [place] [address] Magnesium [Mass/Vol]on 01-16 Interpretation and review of laboratory results Normal [facility] No Panel Informationon 01-16 [facility] Renal function 2000 panelon 01-16-2023 Albumin BCP dye [Mass/Vol] 2.6 g/dL Low 3.4 - 5.0 g/dL [facility] Anion gap [Moles/Vol] 14 mmol/L 10 - 2 0 mmol/L [facility] Calcium [Mass/Vol] 10.2 mg/dL 8.6 - 10. 6 mg/dL [facility] Chloride [Moles/Vol] 102 mmol/L 98 - 10 7 mmol/L [facility] CO2 [Moles/Vol] 24 mmol/L 21 - 32 mmol/L [facility] Creatinine [Mass/Vol] 0.70 mg/dL 0.50 - 1.30 mg/dL [facility] GFR/1.73 sq M.predicted MDRD (S/P/Bld) [Vol rate/Area] - PINF [facility] Comment on above: Calculations of johnny mated GFR are performed using the 2020 CKD-EPI Study Refit equation without the race variable for the IDMS-Traceable creatinine methods. https://jasn.asnjournals.org/content//ASN.05665 63460 Glucose [Mass/Vol] 97 mg/dL 74 - 99 mg/dL [facility] Interpretation and review of laboratory results Abnormal [facility] Phosphate [Mass/Vol] 2.5 mg/dL 2.5 - 4 .9 mg/dL [facility] Comment on above: The performance cesar acteristics of phosphorus testing in heparinized plasma have been validated by the individual laboratory site where testing is performed. Testing on heparinized plasma is not approved by the FDA; however, such approval is not necessary. Potassium [Moles/Vol] 5.0 mmol/L 3.5 - 5.3 mmol/L [facility] Sodium [Moles/Vol] 135 mmol/L Low 136 - 145 mmol/L [facility] Urea nitrogen [Mass/Vol] 12 mg/dL 6 - 23 mg/dL [facility] Albumin BCP dye [Mass/Vol] 2.6 g/dL Low 3.4-5.0 [facility] Comment on above: Performed By: #### 2 4362-6 ####SARAH Mcknight ([id number])[facility] ([facility])[address] [place] [address] Anion gap [Moles/Vol] 14 mmol/L Normal 10-20 [facility] Comment on above: Performed By: #### 2 4362-6 ####SARAH Mcknight ([id number])[facility] ([facility])[address] [place] [address] Calcium [Mass/Vol] 10.2 mg/dL Normal 8.6-10.6 [facility] Comment on above: Performed By: #### 2 4362-6 ####SARAH Mcknight ([id number])[facility] ([facility])[address] [place] [address] Chloride [Moles/Vol] 102 mmol/L Normal 98-107 [facility] Comment on above: Performed By: #### 2 4362-6 ####SARAH Mcknight ([id number])[facility] ([facility])[address] [place] [address] CO2 [Moles/Vol] 24 mmol/L Normal 21-32 [facility] Comment on above: Performed By: #### 2 4362-6 ####SARAH Mcknight ([id number])[facility] ([facility])[address] [place] [address] Creatinine [Mass/Vol] 0.70 mg/dL Normal 0.50-1.30 [facility] Comment on above: Performed By: #### 2 4362-6 ####SARAH Mcknight ([id number])[facility] ([facility])[address] [place] [address] GFR/1.73 sq M.predicted MDRD (S/P/Bld) [Vol rate/Area] mL/min/{1.73_m2} Normal >60 [facility] Comment on above: Result Comment: Calc ulations of estimated GFR are performed using the 2020 CKD-EPI Study Refit equation without the race variable for the IDMS-Traceable creatinine methods.https://jasn.asnjournals.org/content//A SN.3777094815 Performed By: #### 2 4362-6 ####SARAH Mcknight ([id number])[facility] ([facility])[address] [place] [address] Glucose [Mass/Vol] 97 mg/dL Normal 74-99 [facility] Comment on above: Performed By: #### 2 4362-6 ####SARAH Mcknight ([id number])[facility] ([facility])[address] [place] [address] Phosphate [Mass/Vol] 2.5 mg/dL Normal 2.5-4.9 [facility] Comment on above: Result Comment: The performance characteristics of phosphorus testing in heparinized plasma have been validated by the individual laboratory site where testing is performed. Testing on heparinized plasma is not approved by the FDA; however, such approval is not necessary. Performed By: #### 2 4362-6 ####SARAH Mcknight ([id number])[facility] ([facility])[address] [place] [address] Potassium [Moles/Vol] 5.0 mmol/L Normal 3.5-5.3 [facility] Comment on above: Performed By: #### 2 4362-6 ####SARAH Mcknight ([id number])[facility] ([facility])[address] [place] [address] Sodium [Moles/Vol] 135 mmol/L Low 136-145 [facility] Comment on above: Performed By: #### 2 4362-6 ####SARAH Mcknight ([id number])[facility] ([facility])[address] [place] [address] Urea nitrogen [Mass/Vol] 12 mg/dL Normal 6-23 [facility] Comment on above: Performed By: #### 2 4362-6 ####SARAH Mcknight ([id number])[facility] ([facility])[address] [place] [address] Tacrolimuson 01-16-2023 Tacrolimus (Bld) [Mass/Vol] 10.9 ng/mL Normal <=15.0 [facility] Comment on above: Order Comment: Pleas e ensure drawn prior to tacrolimus dosing.NOTE: Result was obtained using achemiluminescent microparticle immunoassay(CMIA) on the Tunnel Mucker i system.Optimal therapeutic ranges for immunosuppressantdrugs depend upon an individualpatient's current clinical state, type oforgan transplant, time post-transplant,co-administration of other immunosuppressants,and other clinical factors. The results ofthis test should be correlated with additionalclinical and laboratory data before changesin treatment regimens are made. Performed By: #### 1 1253-2 ####SARAH Mcknight ([id number])[facility] ([facility])[address] [place] [address] US BLADDERon 01-16-2023 US BLADDER Normal [facility] Urinary bladder limitedon 01-16-2023 Decompressed urinary bladder with a Bowers catheter. I personally reviewed the images/study and I agree with the findings as stated by residential concierge Dr. Banuelos. MACRO: None Signed by: Madan Mills 01/16/2023 2:10 PM Dictation workstation: [id number] [facility] MM[facility]AL Interpreted By: Madan Mills and Sullivan Shannon STUDY: US BLADDER; ; 01/16/2023 12:12 pm INDICATION: Signs/Symptoms:urinary retention - not responding to bowers. COMPARISON: None. ACCESSION NUMBER(S): [id number] ORDERING CLINICIAN: MERY JONES TECHNIQUE: Sonographic images of the urinary bladder were obtained. Static and cine images were obtained for remote interpretation. FINDINGS: The urinary bladder is decompressed with a Bowers catheter. [facility] MM[facility]AL Madan Mills MD - 01/16/2023 Interpreted By: Madan Mills and Sullivan Shannon STUDY: US BLADDER; ; 01/16/2023 12:12 pm INDICATION: Signs/Symptoms:urinary retention - not responding to bowers. COMPARISON: None. ACCESSION NUMBER(S): [id number] ORDERING CLINICIAN: MERY JONES TECHNIQUE: Sonographic images of the urinary bladder were obtained. Static and cine images were obtained for remote interpretation. FINDINGS: The urinary bladder is decompressed with a Bowers catheter. IMPRESSION: Decompressed urinary bladder with a Bowers catheter. I personally reviewed the images/study and I agree with the findings as stated by residential concierge Dr. Banuelos. MACRO: None Signed by: Madan Mills 01/16/2023 2:10 PM Dictation workstation: [id number] [facility] Work Phone: Radiology Study observation (narrative) [facility] Work Phone: US Urinary bladder limitedOr dered By: Madan Mills on 01-16-2023 [facility] Work Phone: US for transplanted kidneyon 01-16-2023 Radiology Study observation (narrative) [facility] Work Phone: [facility] US RENAL ARTERY DUPLEX TRANSPLANTon 01-16-2023 [facility] RENAL ARTERY DUPLEX TRANSPLANT Normal [facility] Basic metabolic 2000 panelon 01-15-2023 Anion gap [Moles/Vol] 11 mmol/L 10 - 2 0 mmol/L [facility] Calcium [Mass/Vol] 9.6 mg/dL 8.6 - 10. 6 mg/dL [facility] Chloride [Moles/Vol] 100 mmol/L 98 - 10 7 mmol/L [facility] CO2 [Moles/Vol] 26 mmol/L 21 - 32 mmol/L [facility] Creatinine [Mass/Vol] 0.70 mg/dL 0.50 - 1.30 mg/dL [facility] GFR/1.73 sq M.predicted MDRD (S/P/Bld) [Vol rate/Area] - PINF [facility] Comment on above: Calculations of johnny mated GFR are performed using the 2020 CKD-EPI Study Refit equation without the race variable for the IDMS-Traceable creatinine methods. https://jasn.asnjournals.org/content/early//ASN.51061 36090 Glucose [Mass/Vol] 108 mg/dL High 74 - 99 mg/dL [facility] Potassium [Moles/Vol] 4.6 mmol/L 3.5 - 5.3 mmol/L [facility] Sodium [Moles/Vol] 132 mmol/L Low 136 - 145 mmol/L [facility] Urea nitrogen [Mass/Vol] 8 mg/dL 6 - 23 mg/dL [facility] Anion gap [Moles/Vol] 11 mmol/L Normal 10-20 [facility] Comment on above: Performed By: #### 2 4321-2 ####SARAH Mcknight ([id number])[facility] ([facility])[address] [place] [address] Calcium [Mass/Vol] 9.6 mg/dL Normal 8.6-10.6 [facility] Comment on above: Performed By: #### 2 4321-2 ####SARAH Mcknight ([id number])[facility] ([facility])[address] [place] [address] Chloride [Moles/Vol] 100 mmol/L Normal 98-107 [facility] Comment on above: Performed By: #### 2 4321-2 ####SARAH ORTEZER L ([id number])[facility] ([facility])[address] [place] [address] CO2 [Moles/Vol] 26 mmol/L Normal 21-32 [facility] Comment on above: Performed By: #### 2 4321-2 ####SARAH OMER L ([id number])[facility] ([facility])[address] [place] [address] Creatinine [Mass/Vol] 0.70 mg/dL Normal 0.50-1.30 [facility] Comment on above: Performed By: #### 2 4321-2 ####SARAH Mcknight ([id number])[facility] ([facility])[address] [place] [address] GFR/1.73 sq M.predicted MDRD (S/P/Bld) [Vol rate/Area] mL/min/{1.73_m2} Normal >60 [facility] Comment on above: Result Comment: Calc ulations of estimated GFR are performed using the 2020 CKD-EPI Study Refit equation without the race variable for the IDMS-Traceable creatinine methods.https://jasn.asnjournals.org/content//A SN.0283674278 Performed By: #### 2 4321-2 ####SARAH OMER L ([id number])[facility] ([facility])[address] [place] [address] Glucose [Mass/Vol] 108 mg/dL High 74-99 [facility] Comment on above: Performed By: #### 2 4321-2 ####SARAH OMER L ([id number])[facility] ([facility])[address] [place] [address] Potassium [Moles/Vol] 4.6 mmol/L Normal 3.5-5.3 [facility] Comment on above: Performed By: #### 2 4321-2 ####SARAH Mcknight ([id number])[facility] ([facility])[address] [place] [address] Sodium [Moles/Vol] 132 mmol/L Low 136-145 [facility] Comment on above: Performed By: #### 2 4321-2 ####SARAH Mcknight ([id number])[facility] ([facility])[address] [place] [address] Urea nitrogen [Mass/Vol] 8 mg/dL Normal 6-23 [facility] Comment on above: Performed By: #### 2 4321-2 ####SARAH Mcknight (45283)[facility] ([facility])[address] [place] [address] CBC panel Auto (Bld)on 01-15 Erythrocyte distribution width (RBC) [Ratio] 16.4 % High 11.5 - 14.5 % [facility] Hematocrit (Bld) [Volume fraction] 28.3 % Low 41.0 - 52.0 % [facility] Hemoglobin (Bld) [Mass/Vol] 9.2 g/dL Low 13.5 - 17.5 g/dL [facility] Interpretation and review of laboratory results Abnormal [facility] MCH (RBC) [Entitic mass] 23.2 pg Low 26.0 - 34.0 pg [facility] MCHC (RBC) [Mass/Vol] 32.5 g/dL 32.0 - 36.0 g/dL [facility] MCV (RBC) [Entitic vol] 72 fL Low 80 - 100 fL [facility] Nucleated RBC/100 WBC (Bld) [Ratio] 0.0 % [facility] Platelets (Bld) [#/Vol] 259 10*3/uL [facility] RBC (Bld) [#/Vol] 3.96 10*6/uL [facility] WBC (Bld) [#/Vol] 6.4 10*3/uL [facility] Erythrocyte distribution width (RBC) [Ratio] 16.4 % High 11.5-14.5 [facility] Comment on above: Performed By: #### 5 8410-2 ####SARAH Mcknight ([id number])[facility] ([facility])[address] [place] [address] Hematocrit (Bld) [Volume fraction] 28.3 % Low 41.0-52.0 [facility] Comment on above: Performed By: #### 5 8410-2 ####SARAH Mcknight (08394)[facility] ([facility])[address] [place] [address] Hemoglobin (Bld) [Mass/Vol] 9.2 g/dL Low 13.5-17.5 [facility] Comment on above: Performed By: #### 5 8410-2 ####SARAH Mcknight (49026)[facility] ([facility])[address] [place] [address] MCH (RBC) [Entitic mass] 23.2 pg Low 26.0-34.0 [facility] Comment on above: Performed By: #### 5 8410-2 ####SARAH Mcknight (19752)[facility] ([facility])[address] [place] [address] MCHC (RBC) [Mass/Vol] 32.5 g/dL Normal 32.0-36.0 [facility] Comment on above: Performed By: #### 5 8410-2 ####SARAH Mcknight (63554)[facility] ([facility])[address] [place] [address] MCV (RBC) [Entitic vol] 72 fL Low 80-100 [facility] Comment on above: Performed By: #### 5 8410-2 ####SARAH Mcknight ([id number])[facility] ([facility])[address] [place] [address] Nucleated RBC/100 WBC (Bld) [Ratio] 0.0 /100 WBCs Normal 0.0-0.0 [facility] Comment on above: Performed By: #### 5 8410-2 ####SARAH Mcknight (46741)[facility] ([facility])[address] [place] [address] Platelets (Bld) [#/Vol] 259 x10*3/uL Normal 150-450 [facility] Comment on above: Performed By: #### 5 8410-2 ####SARAH Mcknight ([id number])[facility] ([facility])[address] [place] [address] RBC (Bld) [#/Vol] 3.96 x10*6/uL Low 4.50-5.90 [facility] Comment on above: Performed By: #### 5 8410-2 ####SARAH Mcknight (13553)[facility] ([facility])[address] [place] [address] WBC (Bld) [#/Vol] 6.4 x10*3/uL Normal 4.4-11.3 [facility] Comment on above: Performed By: #### 5 8410-2 ####SARAH Mcknight ([id number])[facility] ([facility])[address] [place] [address] Magnesiumon 01-15-2023 Magnesium [Mass/Vol] 2.01 mg/dL 1.60 - 2.40 mg/dL [facility] Magnesium [Mass/Vol] 2.01 mg/dL Normal 1.60-2.40 [facility] Comment on above: Performed By: #### 1 9123-9 ####SARAH Mcknight (60562)[facility] ([facility])[address] [place] [address] Magnesium [Mass/Vol]on 01-15 Interpretation and review of laboratory results Normal [facility] No Panel Informationon 01-15 Interpretation and review of laboratory results Abnormal [facility] Phosphateon 01-15-2023 Phosphate [Mass/Vol] 2.3 mg/dL Low 2.5-4.9 [facility] Comment on above: Result Comment: The performance characteristics of phosphorus testing in heparinized plasma have been validated by the individual laboratory site where testing is performed. Testing on heparinized plasma is not approved by the FDA; however, such approval is not necessary. Performed By: #### 2 777-1 ####SARAH Mcknight (54298)[facility] ([facility])[address] [place] [address] Phosphoruson 01-15-2023 Phosphate [Mass/Vol] 2.3 mg/dL Low 2.5 - 4 .9 mg/dL [facility] Comment on above: The performance cesar acteristics of phosphorus testing in heparinized plasma have been validated by the individual laboratory site where testing is performed. Testing on heparinized plasma is not approved by the FDA; however, such approval is not necessary. Surgical pathology studyon 1 03-17-2022 Surgical pathology study [facility] Comment on above: Order Comment: Pre-o p diagnosis:Diverticulitis [K57.92] Tacrolimuson 01-15-2023 Tacrolimus (Bld) [Mass/Vol] 15.0 ng/mL Normal <=15.0 [facility] Comment on above: Order Comment: Pleas e ensure drawn prior to tacrolimus dosing.NOTE: Result was obtained using achemiluminescent microparticle immunoassay(CMIA) on the Tunnel Mucker i system.Optimal therapeutic ranges for immunosuppressantdrugs depend upon an individualpatient's current clinical state, type oforgan transplant, time post-transplant,co-administration of other immunosuppressants,and other clinical factors. The results ofthis test should be correlated with additionalclinical and laboratory data before changesin treatment regimens are made. Performed By: #### 1 1253-2 ####SARAH Mcknight ([id number])[facility] ([facility])[address] [place] [address] Tacrolimus (Bld) [Mass/Vol]O rdered By: James Meyers on 01-15-2023 Interpretation and review of laboratory results [facility] NOTE: Result was obtained using a chemiluminescent microparticle immunoassay (CMIA) on the Tunnel Mucker i system. Optimal therapeutic ranges for immunosuppressant drugs depend upon an individual patient's current clinical state, type of organ transplant, time post-transplant, co-administration of other immunosuppressants, and other clinical factors. The results of this test should be correlated with additional clinical and laboratory data before changes in treatment regimens are made. [facility] Tacrolimus levelOrdered By: James Meyers on 01-15-2023 Tacrolimus (Bld) [Mass/Vol] 15.0 ng/mL NINF - 15.0 ng/mL [facility] XR Chest 2 Viewson 3 1. Possible small left-sided pleural effusion without additional acute cardiopulmonary process. 2. Mild perihilar fullness, which is nonspecific, however may be due to congested pulmonary vasculature or hilar lymphadenopathy. I personally reviewed the image(s)/study and resident interpretation as stated by Dr. Gini Mendoza MD. I agree with the findings as stated. This study was interpreted at [facility], [place], [place]. MACRO: None Signed by: Gerard Jin 01/15/2023 4:14 PM Dictation workstation: [id number] Interpreted By: Gerard Castillo and [place] Lesley STUDY: XR CHEST 2 VIEWS; 01/14/2023 6:47 pm INDICATION: Signs/Symptoms:preop screen. COMPARISON: None. ACCESSION NUMBER(S): [id number] ORDERING CLINICIAN: MERY JONES FINDINGS: AP and lateral upright radiographs of the chest were provided. CARDIOMEDIASTINAL SILHOUETTE: The cardiomediastinal silhouette is mildly enlarged. LUNGS: No focal parenchymal consolidation or pneumothorax. Mild fullness of the perihilar regions which is nonspecific. Increased central pulmonary vascularity. Possible small left-sided pleural effusion the lungs are well expanded. ABDOMEN: No remarkable upper abdominal findings. BONES: No acute osseous abnormalities. MMODAL Gerard Christensen M D - 01/15/2023 Interpreted By: Gerard Jin and [place] Lesley STUDY: XR CHEST 2 VIEWS; 01/14/2023 6:47 pm INDICATION: Signs/Symptoms:preop screen. COMPARISON: None. ACCESSION NUMBER(S): [id number] ORDERING CLINICIAN: MERY JONES FINDINGS: AP and lateral upright radiographs of the chest were provided. CARDIOMEDIASTINAL SILHOUETTE: The cardiomediastinal silhouette is mildly enlarged. LUNGS: No focal parenchymal consolidation or pneumothorax. Mild fullness of the perihilar regions which is nonspecific. Increased central pulmonary vascularity. Possible small left-sided pleural effusion the lungs are well expanded. ABDOMEN: No remarkable upper abdominal findings. BONES: No acute osseous abnormalities. IMPRESSION: 1. Possible small left-sided pleural effusion without additional acute cardiopulmonary process. 2. Mild perihilar fullness, which is nonspecific, however may be due to congested pulmonary vasculature or hilar lymphadenopathy. I personally reviewed the image(s)/study and resident interpretation as stated by Dr. Gini Mendoza MD. I agree with the findings as stated. This study was interpreted at [facility], [place], [place]. MACRO: None Signed by: Gerard Jin 01/15/2023 4:14 PM Dictation workstation: [id number] [facility] Work Phone: XR Chest 2 ViewsOrdered By: Gerard Christensen on 01-15-2023 [facility] Work Phone: Basic metabolic 2000 panelon 01-14-2023 Anion gap [Moles/Vol] 10 mmol/L 10 - 2 0 mmol/L [facility] Calcium [Mass/Vol] 9.6 mg/dL 8.6 - 10. 6 mg/dL [facility] Chloride [Moles/Vol] 99 mmol/L 98 - 10 7 mmol/L [facility] CO2 [Moles/Vol] 26 mmol/L 21 - 32 mmol/L [facility] Creatinine [Mass/Vol] 0.68 mg/dL 0.50 - 1.30 mg/dL [facility] GFR/1.73 sq M.predicted MDRD (S/P/Bld) [Vol rate/Area] - PINF [facility] Comment on above: Calculations of johnny mated GFR are performed using the 2020 CKD-EPI Study Refit equation without the race variable for the IDMS-Traceable creatinine methods. https://jasn.asnjournals.org/content//ASN.50856 94431 Glucose [Mass/Vol] 112 mg/dL High 74 - 99 mg/dL [facility] Potassium [Moles/Vol] 4.7 mmol/L 3.5 - 5.3 mmol/L [facility] Sodium [Moles/Vol] 130 mmol/L Low 136 - 145 mmol/L [facility] Urea nitrogen [Mass/Vol] 9 mg/dL 6 - 23 mg/dL [facility] Anion gap [Moles/Vol] 10 mmol/L Normal 10-20 [facility] Comment on above: Performed By: #### 2 4321-2 ####SARAH OMER L ([id number])[facility] ([facility])[address] [place] [address] Calcium [Mass/Vol] 9.6 mg/dL Normal 8.6-10.6 [facility] Comment on above: Performed By: #### 2 4321-2 ####SARAH MORENOTZER L ([id number])[facility] ([facility])[address] [place] [address] Chloride [Moles/Vol] 99 mmol/L Normal 98-107 [facility] Comment on above: Performed By: #### 2 4321-2 ####SARAH PENALOZAMOTZER L ([id number])[facility] ([facility])[address] [place] [address] CO2 [Moles/Vol] 26 mmol/L Normal 21-32 [facility] Comment on above: Performed By: #### 2 4321-2 ####SARAH PENALOZAMOTZER L ([id number])[facility] ([facility])[address] [place] [address] Creatinine [Mass/Vol] 0.68 mg/dL Normal 0.50-1.30 [facility] Comment on above: Performed By: #### 2 4321-2 ####SARAH MORENOTZER L ([id number])[facility] ([facility])[address] [place] [address] GFR/1.73 sq M.predicted MDRD (S/P/Bld) [Vol rate/Area] mL/min/{1.73_m2} Normal >60 [facility] Comment on above: Result Comment: Calc ulations of estimated GFR are performed using the 2020 CKD-EPI Study Refit equation without the race variable for the IDMS-Traceable creatinine methods.https://jasn.asnjournals.org/content//A SN.8695912859 Performed By: #### 2 4321-2 ####SARAH Mcknight ([id number])[facility] ([facility])[address] [place] [address] Glucose [Mass/Vol] 112 mg/dL High 74-99 [facility] Comment on above: Performed By: #### 2 4321-2 ####SARAH OMER L ([id number])[facility] ([facility])[address] [place] [address] Potassium [Moles/Vol] 4.7 mmol/L Normal 3.5-5.3 [facility] Comment on above: Performed By: #### 2 4321-2 ####SARAH PENALOZAMOTZRODNEY L ([id number])[facility] ([facility])[address] [place] [address] Sodium [Moles/Vol] 130 mmol/L Low 136-145 [facility] Comment on above: Performed By: #### 2 4321-2 ####SARAH PENALOZAMORENARD L ([id number])[facility] ([facility])[address] [place] [address] Urea nitrogen [Mass/Vol] 9 mg/dL Normal 6-23 [facility] Comment on above: Performed By: #### 2 4321-2 ####SARAH OMER L ([id number])[facility] ([facility])[address] [place] [address] Blood type and Indirect anti body screen panel (Bld)on 01-14-2023 ABO group Nom (Bld) A [facility] Blood group antibody screen Ql Negative [facility] D Ag Ql (Bld) Positive [facility] ABO group Nom (Bld) A Normal [facility] Comment on above: Performed By: #### 3 4532-2 ####SARAH Mcknight ([id number])[facility] ([facility])[address] [place] [address] Blood group antibody screen Ql Negative [facility] Comment on above: Performed By: #### 3 4532-2 ####SARAH Mcknight ([id number])[facility] ([facility])[address] [place] [address] D Ag Ql (Bld) Positive [facility] Comment on above: Performed By: #### 3 4532-2 ####SARAH Mcknight ([id number])[facility] ([facility])[address] [place] [address] CBC panel Auto (Bld)on 01-14 Erythrocyte distribution width (RBC) [Ratio] 16.7 % High 11.5 - 14.5 % [facility] Hematocrit (Bld) [Volume fraction] 30.4 % Low 41.0 - 52.0 % [facility] Hemoglobin (Bld) [Mass/Vol] 9.4 g/dL Low 13.5 - 17.5 g/dL [facility] Interpretation and review of laboratory results Abnormal [facility] MCH (RBC) [Entitic mass] 23.2 pg Low 26.0 - 34.0 pg [facility] MCHC (RBC) [Mass/Vol] 30.9 g/dL Low 32.0 - 36.0 g/dL [facility] MCV (RBC) [Entitic vol] 75 fL Low 80 - 100 fL [facility] Nucleated RBC/100 WBC (Bld) [Ratio] 0.0 % [facility] Platelets (Bld) [#/Vol] 240 10*3/uL [facility] RBC (Bld) [#/Vol] 4.05 10*6/uL Low [facility] WBC (Bld) [#/Vol] 5.9 10*3/uL [facility] Erythrocyte distribution width (RBC) [Ratio] 16.7 % High 11.5-14.5 [facility] Comment on above: Performed By: #### 5 8410-2 ####SARAH Mcknight ([id number])[facility] ([facility])[address] [place] [address] Hematocrit (Bld) [Volume fraction] 30.4 % Low 41.0-52.0 [facility] Comment on above: Performed By: #### 5 8410-2 ####SARAH Mcknight ([id number])[facility] ([facility])[address] [place] [address] Hemoglobin (Bld) [Mass/Vol] 9.4 g/dL Low 13.5-17.5 [facility] Comment on above: Performed By: #### 5 8410-2 ####SARAH Mcknight ([id number])[facility] ([facility])[address] [place] [address] MCH (RBC) [Entitic mass] 23.2 pg Low 26.0-34.0 [facility] Comment on above: Performed By: #### 5 8410-2 ####SARAH Mcknight ([id number])[facility] ([facility])[address] [place] [address] MCHC (RBC) [Mass/Vol] 30.9 g/dL Low 32.0-36.0 [facility] Comment on above: Performed By: #### 5 8410-2 ####SARAH Mcknight ([id number])[facility] ([facility])[address] [place] [address] MCV (RBC) [Entitic vol] 75 fL Low 80-100 [facility] Comment on above: Performed By: #### 5 8410-2 ####SARAH Mcknight ([id number])[facility] ([facility])[address] [place] [address] Nucleated RBC/100 WBC (Bld) [Ratio] 0.0 /100 WBCs Normal 0.0-0.0 [facility] Comment on above: Performed By: #### 5 8410-2 ####SARAH Mcknight ([id number])[facility] ([facility])[address] [place] [address] Platelets (Bld) [#/Vol] 240 x10*3/uL Normal 150-450 [facility] Comment on above: Performed By: #### 5 8410-2 ####SARAH Mcknight ([id number])[facility] ([facility])[address] [place] [address] RBC (Bld) [#/Vol] 4.05 x10*6/uL Low 4.50-5.90 [facility] Comment on above: Performed By: #### 5 8410-2 ####SARAH Mcknight ([id number])[facility] ([facility])[address] [place] [address] WBC (Bld) [#/Vol] 5.9 x10*3/uL Normal 4.4-11.3 [facility] Comment on above: Performed By: #### 5 8410-2 ####SARAH Mcknight ([id number])[facility] ([facility])[address] [place] [address] ECG 12-LEADon 01-14-2023 ECG 12-LEAD Ventricular Rate 67 Atrial Rate 67 P-R Interval 190 QRS Duration 114 Q-T Interval 426 QTC Calculation(Bazett) 450 P [place] 38 R [place] -10 T [place] 42 QRS Count 11 Q Onset 213 P Onset 118 P Offset 179 T Offset 426 QTC Fredericia 442 Diagnosis Normal sinus rhythm Normal ECG When compared with ECG of 14-JAN-2023 17:33, (unconfirmed) No significant change was found Confirmed by Clinton Jaquez ([id number]) on 01/25/2023 8:15:39 AM Normal [facility] Magnesiumon 01-14-2023 Magnesium [Mass/Vol] 1.56 mg/dL Low 1.60 - 2.40 mg/dL [facility] Magnesium [Mass/Vol] 1.56 mg/dL Low 1.60-2.40 [facility] Comment on above: Performed By: #### 1 9123-9 ####SARAH Mcknight ([id number])[facility] ([facility])[address] [place] [address] No Panel Informationon 01-14 Interpretation and review of laboratory results Abnormal [facility] PT and aPTT panel Coag (PPP) on 01-14-2023 aPTT Coag (PPP) [Time] 27 s [facility] INR Coag (PPP) [Relative time] 1.0 {INR} 0.9 - 1.1 [facility] Interpretation and review of laboratory results Normal [facility] PT Coag (PPP) [Time] 11.4 s [facility] The APTT is no longe r used for monitoring Unfractionated Heparin Therapy. For monitoring Heparin Therapy, use the Heparin Assay. [facility] aPTT Coag (PPP) [Time] 27 s Normal 27-38 [facility] Comment on above: Order Comment: The A PTT is no longer used for monitoring Unfractionated Heparin Therapy. For monitoring Heparin Therapy, use the Heparin Assay. Performed By: #### 3 4529-8 ####SARAH Mcknight ([id number])[facility] ([facility])[address] [place] [address] INR Coag (PPP) [Relative time] 1.0 Normal 0.9-1.1 [facility] Comment on above: Order Comment: The A PTT is no longer used for monitoring Unfractionated Heparin Therapy. For monitoring Heparin Therapy, use the Heparin Assay. Performed By: #### 3 4529-8 ####SARAH Mcknight ([id number])[facility] ([facility])[address] [place] [address] PT Coag (PPP) [Time] 11.4 s Normal 9.8-12.8 [facility] Comment on above: Order Comment: The A PTT is no longer used for monitoring Unfractionated Heparin Therapy. For monitoring Heparin Therapy, use the Heparin Assay. Performed By: #### 3 4529-8 ####SARAH Mcknight ([id number])[facility] ([facility])[address] [place] [address] Phosphateon 01-14-2023 Phosphate [Mass/Vol] 3.0 mg/dL Normal 2.5-4.9 [facility] Comment on above: Result Comment: The performance characteristics of phosphorus testing in heparinized plasma have been validated by the individual laboratory site where testing is performed. Testing on heparinized plasma is not approved by the FDA; however, such approval is not necessary. Performed By: #### 2 777-1 ####SARAH Mcknight ([id number])[facility] ([facility])[address] [place] [address] Phosphate [Mass/Vol]on 01-14 Interpretation and review of laboratory results Normal [facility] Phosphoruson 01-14-2023 Phosphate [Mass/Vol] 3.0 mg/dL 2.5 - 4 .9 mg/dL [facility] Comment on above: The performance cesar acteristics of phosphorus testing in heparinized plasma have been validated by the individual laboratory site where testing is performed. Testing on heparinized plasma is not approved by the FDA; however, such approval is not necessary. Tacrolimuson 01-14-2023 Tacrolimus (Bld) [Mass/Vol] 13.4 ng/mL Normal <=15.0 [facility] Comment on above: Order Comment: Pleas e ensure drawn prior to tacrolimus dosing.NOTE: Result was obtained using achemiluminescent microparticle immunoassay(CMIA) on the [employer] i system.Optimal therapeutic ranges for immunosuppressantdrugs depend upon an individualpatient's current clinical state, type oforgan transplant, time post-transplant,co-administration of other immunosuppressants,and other clinical factors. The results ofthis test should be correlated with additionalclinical and laboratory data before changesin treatment regimens are made. Performed By: #### 1 1253-2 ####SARAH Mcknight ([id number])[facility] ([facility])[address] [place] [address] Tacrolimus (Bld) [Mass/Vol]O rdered By: Raysa Casey on 01-14-2023 Interpretation and review of laboratory results Normal [facility] NOTE: Result was obtained using a chemiluminescent microparticle immunoassay (CMIA) on the [employer] Mucker i system. Optimal therapeutic ranges for immunosuppressant drugs depend upon an individual patient's current clinical state, type of organ transplant, time post-transplant, co-administration of other immunosuppressants, and other clinical factors. The results of this test should be correlated with additional clinical and laboratory data before changes in treatment regimens are made. [facility] Tacrolimus levelOrdered By: Raysa Casey on 01-14-2023 Tacrolimus (Bld) [Mass/Vol] 13.4 ng/mL NINF - 15.0 ng/mL [facility] XR CHEST 2 VIEWSon 3 XR CHEST 2 VIEWS Normal [facility] XR Chest 2 Viewson 3 Radiology Study observation (narrative) [facility] Work Phone: CBC panel Auto (Bld)on 01-13 Erythrocyte distribution width (RBC) [Ratio] 16.1 % High 11.5 - 14.5 % [facility] Hematocrit (Bld) [Volume fraction] 29.1 % Low 41.0 - 52.0 % [facility] Hemoglobin (Bld) [Mass/Vol] 9.7 g/dL Low 13.5 - 17.5 g/dL [facility] Interpretation and review of laboratory results Abnormal [facility] MCH (RBC) [Entitic mass] 23.4 pg Low 26.0 - 34.0 pg [facility] MCHC (RBC) [Mass/Vol] 33.3 g/dL 32.0 - 36.0 g/dL [facility] MCV (RBC) [Entitic vol] 70 fL Low 80 - 100 fL [facility] Nucleated RBC/100 WBC (Bld) [Ratio] 0.0 % [facility] Platelet mean volume (Bld) [Entitic vol] 9.2 fL 7.5 - 11.5 fL [facility] Platelets (Bld) [#/Vol] 249 10*3/uL [facility] RBC (Bld) [#/Vol] 4.14 10*6/uL Low [facility] WBC (Bld) [#/Vol] 7.9 10*3/uL [facility] Erythrocyte distribution width (RBC) [Ratio] 16.1 % High 11.5-14.5 [facility] Comment on above: Performed By: #### 5 8410-2 ####SARAH Mcknight ([id number])[facility] ([facility])[address] [place] [address] Hematocrit (Bld) [Volume fraction] 29.1 % Low 41.0-52.0 [facility] Comment on above: Performed By: #### 5 8410-2 ####SARAH Mcknight ([id number])[facility] ([facility])[address] [place] [address] Hemoglobin (Bld) [Mass/Vol] 9.7 g/dL Low 13.5-17.5 [facility] Comment on above: Performed By: #### 5 8410-2 ####SARAH Mcknight ([id number])[facility] ([facility])[address] [place] [address] MCH (RBC) [Entitic mass] 23.4 pg Low 26.0-34.0 [facility] Comment on above: Performed By: #### 5 8410-2 ####SARAH Mcknight ([id number])[facility] ([facility])[address] [place] [address] MCHC (RBC) [Mass/Vol] 33.3 g/dL Normal 32.0-36.0 [facility] Comment on above: Performed By: #### 5 8410-2 ####SARAH Mcknight ([id number])[facility] ([facility])[address] [place] [address] MCV (RBC) [Entitic vol] 70 fL Low 80-100 [facility] Comment on above: Performed By: #### 5 8410-2 ####SARAH Mcknight ([id number])[facility] ([facility])[address] [place] [address] Nucleated RBC/100 WBC (Bld) [Ratio] 0.0 /100 WBCs Normal 0.0-0.0 [facility] Comment on above: Performed By: #### 5 8410-2 ####SARAH Mcknight ([id number])[facility] ([facility])[address] [place] [address] Platelet mean volume (Bld) [Entitic vol] 9.2 fL Normal 7.5-11.5 [facility] Comment on above: Performed By: #### 5 8410-2 ####SARAH Mcknight ([id number])[facility] ([facility])[address] [place] [address] Platelets (Bld) [#/Vol] 249 x10*3/uL Normal 150-450 [facility] Comment on above: Performed By: #### 5 8410-2 ####SARAH Mcknight ([id number])[facility] ([facility])[address] [place] [address] RBC (Bld) [#/Vol] 4.14 x10*6/uL Low 4.50-5.90 [facility] Comment on above: Performed By: #### 5 8410-2 ####SARAH Mcknight ([id number])[facility] ([facility])[address] [place] [address] WBC (Bld) [#/Vol] 7.9 x10*3/uL Normal 4.4-11.3 [facility] Comment on above: Performed By: #### 5 8410-2 ####SARAH Mcknight ([id number])[facility] ([facility])[address] [place] [address] ECG 12-LEADon 01-13-2023 ECG 12-LEAD Ventricular Rate 84 Atrial Rate 84 P-R Interval 194 QRS Duration 116 Q-T Interval 376 QTC Calculation(Bazett) 444 P [place] 25 R [place] -17 T [place] 61 QRS Count 14 Q Onset 214 P Onset 117 P Offset 179 T Offset 402 QTC Fredericia 420 Diagnosis Normal sinus rhythm Normal ECG When compared with ECG of 12-JAN-2023 16:20, (unconfirmed) No significant change was found Confirmed by [facility] Jaquez ([id number]) on 01/25/2023 8:12:51 AM Normal [facility] Glucose Test strip manual (B ld) [Mass/Vol]on 01-13-2023 Glucose [Mass/Vol] 132 mg/dL High 74 - 99 mg/dL [facility] Interpretation and review of laboratory results Abnormal [facility] Glucose [Mass/Vol] 132 mg/dL High 74-99 [facility] Comment on above: Performed By: #### 2 341-6 ####SARAH Mcknight ([id number])[facility] ([facility])[address] [place] [address] Glucose [Mass/Vol] 129 mg/dL High 74 - 99 mg/dL [facility] Interpretation and review of laboratory results Abnormal [facility] Glucose [Mass/Vol] 129 mg/dL High 74-99 [facility] Comment on above: Performed By: #### 2 341-6 ####SARAH Mcknight ([id number])[facility] ([facility])[address] [place] [address] Glucose [Mass/Vol] 138 mg/dL High 74 - 99 mg/dL [facility] Interpretation and review of laboratory results Abnormal [facility] Glucose [Mass/Vol] 138 mg/dL High 74-99 [facility] Comment on above: Performed By: #### 2 341-6 ####SARAH Mcknight ([id number])[facility] ([facility])[address] [place] [address] Glucose [Mass/Vol] 115 mg/dL High 74 - 99 mg/dL [facility] Interpretation and review of laboratory results Abnormal [facility] Glucose [Mass/Vol] 115 mg/dL High 74-99 [facility] Comment on above: Performed By: #### 2 341-6 ####SARAH ORTEZRODNEY L ([id number])[facility] ([facility])[address] [place] [address] Glucose [Mass/Vol] 114 mg/dL High 74 - 99 mg/dL [facility] Interpretation and review of laboratory results Abnormal [facility] Glucose [Mass/Vol] 114 mg/dL High 74-99 [facility] Comment on above: Performed By: #### 2 341-6 ####SARAH ORTEZER L ([id number])[facility] ([facility])[address] [place] [address] Magnesiumon 01-13-2023 Magnesium [Mass/Vol] 2.14 mg/dL 1.60 - 2.40 mg/dL [facility] Comment on above: MILD HEMOLYSIS DETEC FEROZ. The result may be falsely elevated due to hemolysis or other interferents. Clinical correlation is recommended. Repeat testing may be considered. Magnesium [Mass/Vol]on 01-13 Interpretation and review of laboratory results Normal [facility] Renal function 2000 panelon 01-13-2023 Albumin BCP dye [Mass/Vol] 2.6 g/dL Low 3.4 - 5.0 g/dL [facility] Anion gap [Moles/Vol] 10 mmol/L 10 - 2 0 mmol/L [facility] Calcium [Mass/Vol] 9.8 mg/dL 8.6 - 10. 6 mg/dL [facility] Chloride [Moles/Vol] 100 mmol/L 98 - 10 7 mmol/L [facility] CO2 [Moles/Vol] 24 mmol/L 21 - 32 mmol/L [facility] Creatinine [Mass/Vol] 0.70 mg/dL 0.50 - 1.30 mg/dL [facility] GFR/1.73 sq M.predicted MDRD (S/P/Bld) [Vol rate/Area] - PINF [facility] Comment on above: Calculations of johnny mated GFR are performed using the 2020 CKD-EPI Study Refit equation without the race variable for the IDMS-Traceable creatinine methods. https://jasn.asnjournals.org/content//ASN.39547 57030 Glucose [Mass/Vol] 114 mg/dL High 74 - 99 mg/dL [facility] Interpretation and review of laboratory results Abnormal [facility] Phosphate [Mass/Vol] 1.7 mg/dL Low 2.5 - 4 .9 mg/dL [facility] Comment on above: The performance cesar acteristics of phosphorus testing in heparinized plasma have been validated by the individual laboratory site where testing is performed. Testing on heparinized plasma is not approved by the FDA; however, such approval is not necessary. Potassium [Moles/Vol] 4.6 mmol/L 3.5 - 5.3 mmol/L [facility] Sodium [Moles/Vol] 129 mmol/L Low 136 - 145 mmol/L [facility] Urea nitrogen [Mass/Vol] 10 mg/dL 6 - 23 mg/dL [facility] Albumin BCP dye [Mass/Vol] 2.6 g/dL Low 3.4-5.0 [facility] Comment on above: Performed By: #### 2 4362-6 ####SARAH Mcknight ([id number])[facility] ([facility])[address] [place] [address] Anion gap [Moles/Vol] 10 mmol/L Normal 10-20 [facility] Comment on above: Performed By: #### 2 4362-6 ####SARAH Mcknight ([id number])[facility] ([facility])[address] [place] [address] Calcium [Mass/Vol] 9.8 mg/dL Normal 8.6-10.6 [facility] Comment on above: Performed By: #### 2 4362-6 ####SARAH Mcknight ([id number])[facility] ([facility])[address] [place] [address] Chloride [Moles/Vol] 100 mmol/L Normal 98-107 [facility] Comment on above: Performed By: #### 2 4362-6 ####SARAH Mcknight ([id number])[facility] ([facility])[address] [place] [address] CO2 [Moles/Vol] 24 mmol/L Normal 21-32 [facility] Comment on above: Performed By: #### 2 4362-6 ####SARAH Mcknight ([id number])[facility] ([facility])[address] [place] [address] Creatinine [Mass/Vol] 0.70 mg/dL Normal 0.50-1.30 [facility] Comment on above: Performed By: #### 2 4362-6 ####SARAH Mcknight ([id number])[facility] ([facility])[address] [place] [address] GFR/1.73 sq M.predicted MDRD (S/P/Bld) [Vol rate/Area] mL/min/{1.73_m2} Normal >60 [facility] Comment on above: Result Comment: Calc ulations of estimated GFR are performed using the 2020 CKD-EPI Study Refit equation without the race variable for the IDMS-Traceable creatinine methods.https://jasn.asnjournals.org/content//A SN.4346025508 Performed By: #### 2 4362-6 ####SARAH Mcknight ([id number])[facility] ([facility])[address] [place] [address] Glucose [Mass/Vol] 114 mg/dL High 74-99 [facility] Comment on above: Performed By: #### 2 4362-6 ####SARAH Mcknight ([id number])[facility] ([facility])[address] [place] [address] Phosphate [Mass/Vol] 1.7 mg/dL Low 2.5-4.9 [facility] Comment on above: Result Comment: The performance characteristics of phosphorus testing in heparinized plasma have been validated by the individual laboratory site where testing is performed. Testing on heparinized plasma is not approved by the FDA; however, such approval is not necessary. Performed By: #### 2 4362-6 ####SARAH Mcknight ([id number])[facility] ([facility])[address] [place] [address] Potassium [Moles/Vol] 4.6 mmol/L Normal 3.5-5.3 [facility] Comment on above: Performed By: #### 2 4362-6 ####SARAH OMER L ([id number])[facility] ([facility])[address] [place] [address] Sodium [Moles/Vol] 129 mmol/L Low 136-145 [facility] Comment on above: Performed By: #### 2 4362-6 ####SARAH OMER L ([id number])[facility] ([facility])[address] [place] [address] Urea nitrogen [Mass/Vol] 10 mg/dL Normal 6-23 [facility] Comment on above: Performed By: #### 2 4362-6 ####SARAH OMER L ([id number])[facility] ([facility])[address] [place] [address] Albumin BCP dye [Mass/Vol] 2.7 g/dL Low 3.4 - 5.0 g/dL [facility] Anion gap [Moles/Vol] 11 mmol/L [facility] Calcium [Mass/Vol] 9.8 mg/dL 8.6 - 10. 6 mg/dL [facility] Chloride [Moles/Vol] 99 mmol/L 98 - 10 7 mmol/L [facility] CO2 [Moles/Vol] 23 mmol/L 21 - 32 mmol/L [facility] Creatinine [Mass/Vol] 0.71 mg/dL 0.50 - 1.30 mg/dL [facility] GFR/1.73 sq M.predicted MDRD (S/P/Bld) [Vol rate/Area] - PINF [facility] Comment on above: Calculations of johnny mated GFR are performed using the 2020 CKD-EPI Study Refit equation without the race variable for the IDMS-Traceable creatinine methods. https://jasn.asnjournals.org/content//ASN.54135 02348 Glucose [Mass/Vol] 194 mg/dL High 74 - 99 mg/dL [facility] Interpretation and review of laboratory results Abnormal [facility] Phosphate [Mass/Vol] 1.9 mg/dL Low 2.5 - 4 .9 mg/dL [facility] Comment on above: MILD HEMOLYSIS DETEC FEROZ. The result may be falsely elevated due to hemolysis or other interferents. Clinical correlation is recommended. Repeat testing may be considered. The performance characteristics of phosphorus testing in heparinized plasma have been validated by the individual laboratory site where testing is performed. Testing on heparinized plasma is not approved by the FDA; however, such approval is not necessary. Potassium [Moles/Vol] 6.1 mmol/L Critically high 3.5 - 5.3 mmol/L [facility] Comment on above: MILD HEMOLYSIS DETEC FEROZ. The result may be falsely elevated due to hemolysis or other interferents. Clinical correlation is recommended. Repeat testing may be considered. Sodium [Moles/Vol] 127 mmol/L Low 136 - 145 mmol/L [facility] Urea nitrogen [Mass/Vol] 11 mg/dL 6 - 23 mg/dL [facility] Tacrolimuson 01-13-2023 Tacrolimus (Bld) [Mass/Vol] 10.5 ng/mL Normal <=15.0 [facility] Comment on above: Order Comment: Pleas e ensure drawn prior to tacrolimus dosing.NOTE: Result was obtained using achemiluminescent microparticle immunoassay(CMIA) on the Tunnel Mucker i system.Optimal therapeutic ranges for immunosuppressantdrugs depend upon an individualpatient's current clinical state, type oforgan transplant, time post-transplant,co-administration of other immunosuppressants,and other clinical factors. The results ofthis test should be correlated with additionalclinical and laboratory data before changesin treatment regimens are made. Performed By: #### 1 1253-2 ####SARAH Mcknight ([id number])[facility] ([facility])[address] [place] [address] Tacrolimus (Bld) [Mass/Vol]O rdered By: Jessica Ghosh on 01-13-2023 Interpretation and review of laboratory results Normal [facility] NOTE: Result was obtained using a chemiluminescent microparticle immunoassay (CMIA) on the Tunnel Mucker i system. Optimal therapeutic ranges for immunosuppressant drugs depend upon an individual patient's current clinical state, type of organ transplant, time post-transplant, co-administration of other immunosuppressants, and other clinical factors. The results of this test should be correlated with additional clinical and laboratory data before changes in treatment regimens are made. [facility] Tacrolimus levelOrdered By: Jessica Ghosh on 01-13-2023 Tacrolimus (Bld) [Mass/Vol] 10.5 ng/mL NINF - 15.0 ng/mL [facility] CBC panel Auto (Bld)on 01-12 Erythrocyte distribution width (RBC) [Ratio] 16.1 % High 11.5 - 14.5 % [facility] Hematocrit (Bld) [Volume fraction] 27.9 % Low 41.0 - 52.0 % [facility] Hemoglobin (Bld) [Mass/Vol] 9.2 g/dL Low 13.5 - 17.5 g/dL [facility] Interpretation and review of laboratory results Abnormal [facility] MCH (RBC) [Entitic mass] 23.4 pg Low 26.0 - 34.0 pg [facility] MCHC (RBC) [Mass/Vol] 33.0 g/dL 32.0 - 36.0 g/dL [facility] MCV (RBC) [Entitic vol] 71 fL Low 80 - 100 fL [facility] Nucleated RBC/100 WBC (Bld) [Ratio] 0.0 % [facility] Platelet mean volume (Bld) [Entitic vol] 8.6 fL 7.5 - 11.5 fL [facility] Platelets (Bld) [#/Vol] 236 10*3/uL [facility] RBC (Bld) [#/Vol] 3.94 10*6/uL Low [facility] WBC (Bld) [#/Vol] 5.9 10*3/uL [facility] Erythrocyte distribution width (RBC) [Ratio] 16.1 % High 11.5-14.5 [facility] Comment on above: Performed By: #### 5 8410-2 ####SARAH Mcknight ([id number])[facility] ([facility])[address] [place] [address] Hematocrit (Bld) [Volume fraction] 27.9 % Low 41.0-52.0 [facility] Comment on above: Performed By: #### 5 8410-2 ####SARAH Mcknight ([id number])[facility] ([facility])[address] [place] [address] Hemoglobin (Bld) [Mass/Vol] 9.2 g/dL Low 13.5-17.5 [facility] Comment on above: Performed By: #### 5 8410-2 ####SARAH Mcknight ([id number])[facility] ([facility])[address] [place] [address] MCH (RBC) [Entitic mass] 23.4 pg Low 26.0-34.0 [facility] Comment on above: Performed By: #### 5 8410-2 ####SARAH Mcknight ([id number])[facility] ([facility])[address] [place] [address] MCHC (RBC) [Mass/Vol] 33.0 g/dL Normal 32.0-36.0 [facility] Comment on above: Performed By: #### 5 8410-2 ####SARAH Mcknight ([id number])[facility] ([facility])[address] [place] [address] MCV (RBC) [Entitic vol] 71 fL Low 80-100 [facility] Comment on above: Performed By: #### 5 8410-2 ####SARAH Mcknight ([id number])[facility] ([facility])[address] [place] [address] Nucleated RBC/100 WBC (Bld) [Ratio] 0.0 /100 WBCs Normal 0.0-0.0 [facility] Comment on above: Performed By: #### 5 8410-2 ####SARAH Mcknight ([id number])[facility] ([facility])[address] [place] [address] Platelet mean volume (Bld) [Entitic vol] 8.6 fL Normal 7.5-11.5 [facility] Comment on above: Performed By: #### 5 8410-2 ####SARAH MORENOTZER L ([id number])[facility] ([facility])[address] [place] [address] Platelets (Bld) [#/Vol] 236 x10*3/uL Normal 150-450 [facility] Comment on above: Performed By: #### 5 8410-2 ####SARAH OMER L ([id number])[facility] ([facility])[address] [place] [address] RBC (Bld) [#/Vol] 3.94 x10*6/uL Low 4.50-5.90 [facility] Comment on above: Performed By: #### 5 8410-2 ####SARAH PENALOZAMOTZER L ([id number])[facility] ([facility])[address] [place] [address] WBC (Bld) [#/Vol] 5.9 x10*3/uL Normal 4.4-11.3 [facility] Comment on above: Performed By: #### 5 8410-2 ####SARAH MORENOTZER L ([id number])[facility] ([facility])[address] [place] [address] CT Guidance for percutaneous drainage of abscess and placement of drainage catheter of Unspecified body regionon 01-12-[address] of drain placement into an intra-abdominal abscess with retrieval of 8 mL purulent fluid. I was present for and/or performed the critical portions of the procedure and immediately available throughout the entire procedure. I personally reviewed the image(s)/study and interpretation. I agree with the findings as stated. Performed and dictated at [facility]. Signed by: Chris Farrell 01/12/2023 8:40 AM Dictation workstation: [id number] [facility] Interpreted By: Chris Stanley ud, and Kelly Rory STUDY: CT GUIDED IMAGING FOR ABSCESS DRAIN; 01/11/2023 10:50 am INDICATION: Signs/Symptoms:diverticu litis with fluid collections. COMPARISON: CT of the abdomen dated 01/09/2023 ACCESSION NUMBER(S): [id number] ORDERING CLINICIAN: BRUCE HOWARD TECHNIQUE: INTERVENTIONALIST(S): Dr. Chris Farrell CONSENT: The patient/patient's POA/next of kin was informed of the nature of the proposed procedure. The purposes, alternatives, risks, and benefits were explained and discussed. All questions were answered and consent was obtained. RADIATION EXPOSURE: Dose: 79.26 MGy. Dose Area Product (DAP): 667.6 mGy * cm SEDATION: Moderate conscious IV sedation services (supervision of administration, induction, and maintenance) were provided by the physician performing the procedure with intravenous fentanyl 50 mg and versed 1 mg for 20 minutes. The physician was assisted by an independent trained observer, an interventional radiology nurse, in the continuous monitoring of patient level of consciousness and physiologic status. MEDICATION/CONTRAST: No additional TIME OUT: A time out was performed immediately prior to procedure start with the interventional team, correctly identifying the patient name, date of , MRN, procedure, anatomy (including marking of site and side), patient position, procedure consent form, relevant laboratory and imaging test results, antibiotic administration, safety precautions, and procedure-specific equipment needs. COMPLICATIONS: No immediate adverse events identified. FINDINGS: Limited axial CT images were obtained through the abdomen for the purposes of needle guidance were taken. The images demonstrate gas containing fluid collection within the anterior left hemiabdomen with prominent adjacent fat stranding which directly communicated with an additional fluid collection within the mesentery of the left hemiabdomen as seen on series 2, image 88.. Patient was placed in supine position and prepped in the usual sterile manner. Lidocaine was used for local anesthesia. A 19G Yueh needle was used to access the fluid collection. A 035 wire was then used to maintain access in the collection after removal of the Yueh needle. Serial dilatation was had over the wire and an eventual 8 Niuean pigtail drainage catheter was placed in the collection. The pigtail drain was formed, connected to drain, and sutured/secured in place. Postprocedure images demonstrated no evidence of hemorrhage. 8 mL purulent fluid was sent to the laboratory for further analysis. The patient tolerated the procedure well without any immediate complications. [facility] Jerome Farrell MD - 01/12/2023 Interpreted By: Chris Farrell and Kelly Rory STUDY: CT GUIDED IMAGING FOR ABSCESS DRAIN; 01/11/2023 10:50 am INDICATION: Signs/Symptoms:diverticu litis with fluid collections. COMPARISON: CT of the abdomen dated 01/09/2023 ACCESSION NUMBER(S): [id number] ORDERING CLINICIAN: BRUCE HOWARD TECHNIQUE: INTERVENTIONALIST(S): Dr. Chris Farrell CONSENT: The patient/patient's POA/next of kin was informed of the nature of the proposed procedure. The purposes, alternatives, risks, and benefits were explained and discussed. All questions were answered and consent was obtained. RADIATION EXPOSURE: Dose: 79.26 MGy. Dose Area Product (DAP): 667.6 mGy * cm SEDATION: Moderate conscious IV sedation services (supervision of administration, induction, and maintenance) were provided by the physician performing the procedure with intravenous fentanyl 50 mg and versed 1 mg for 20 minutes. The physician was assisted by an independent trained observer, an interventional radiology nurse, in the continuous monitoring of patient level of consciousness and physiologic status. MEDICATION/CONTRAST: No additional TIME OUT: A time out was performed immediately prior to procedure start with the interventional team, correctly identifying the patient name, date of , MRN, procedure, anatomy (including marking of site and side), patient position, procedure consent form, relevant laboratory and imaging test results, antibiotic administration, safety precautions, and procedure-specific equipment needs. COMPLICATIONS: No immediate adverse events identified. FINDINGS: Limited axial CT images were obtained through the abdomen for the purposes of needle guidance were taken. The images demonstrate gas containing fluid collection within the anterior left hemiabdomen with prominent adjacent fat stranding which directly communicated with an additional fluid collection within the mesentery of the left hemiabdomen as seen on series 2, image 88.. Patient was placed in supine position and prepped in the usual sterile manner. Lidocaine was used for local anesthesia. A 19G Yueh needle was used to access the fluid collection. A 035 wire was then used to maintain access in the collection after removal of the Yueh needle. Serial dilatation was had over the wire and an eventual 8 Niuean pigtail drainage catheter was placed in the collection. The pigtail drain was formed, connected to drain, and sutured/secured in place. Postprocedure images demonstrated no evidence of hemorrhage. 8 mL purulent fluid was sent to the laboratory for further analysis. The patient tolerated the procedure well without any immediate complications. IMPRESSION: Technically successful of drain placement into an intra-abdominal abscess with retrieval of 8 mL purulent fluid. I was present for and/or performed the critical portions of the procedure and immediately available throughout the entire procedure. I personally reviewed the image(s)/study and interpretation. I agree with the findings as stated. Performed and dictated at [facility]. Signed by: Chris aFrrell 01/12/2023 8:40 AM Dictation workstation: [id number] [facility] Work Phone: CT Guidance for percutaneous drainage of abscess and placement of drainage catheter of Unspecified body regionOrdered By: Jerome Farrell on 01-12-2023 [facility] Work Phone: ECG 12-LEADon 01-12-2023 ECG 12-LEAD Ventricular Rate 79 Atrial Rate 79 P-R Interval 208 QRS Duration 112 Q-T Interval 376 QTC Calculation(Bazett) 431 P [place] 59 R [place] -16 T [place] 47 QRS Count 13 Q Onset 214 P Onset 110 P Offset 163 T Offset 402 QTC Fredericia 412 Diagnosis Normal sinus rhythm Normal ECG When compared with ECG of 12-JAN-2023 16:20, (unconfirmed) No significant change was found Confirmed by Clinton Jaquez ([id number]) on 01/25/2023 8:12:28 AM Normal [facility] Glucose Test strip manual (B ld) [Mass/Vol]on 01-12-2023 Glucose [Mass/Vol] 231 mg/dL High 74 - 99 mg/dL [facility] Interpretation and review of laboratory results Abnormal [facility] Glucose [Mass/Vol] 231 mg/dL High 74-99 [facility] Comment on above: Performed By: #### 2 341-6 ####SARAH Mcknight ([id number])[facility] ([facility])[address] [place] [address] Glucose [Mass/Vol] 230 mg/dL High 74 - 99 mg/dL [facility] Interpretation and review of laboratory results Abnormal [facility] Glucose [Mass/Vol] 230 mg/dL High 74-99 [facility] Comment on above: Performed By: #### 2 341-6 ####SARAH Mcknight ([id number])[facility] ([facility])[address] [place] [address] Glucose [Mass/Vol] 189 mg/dL High 74 - 99 mg/dL [facility] Interpretation and review of laboratory results Abnormal [facility] Glucose [Mass/Vol] 189 mg/dL High 74-99 [facility] Comment on above: Performed By: #### 2 341-6 ####SARAH Mcknight ([id number])[facility] ([facility])[address] [place] [address] Glucose [Mass/Vol] 143 mg/dL High 74 - 99 mg/dL [facility] Interpretation and review of laboratory results Abnormal [facility] Glucose [Mass/Vol] 143 mg/dL High 74-99 [facility] Comment on above: Performed By: #### 2 341-6 ####SARAH Mcknight ([id number])[facility] ([facility])[address] [place] [address] Glucose [Mass/Vol] 140 mg/dL High 74 - 99 mg/dL [facility] Interpretation and review of laboratory results Abnormal [facility] Glucose [Mass/Vol] 140 mg/dL High 74-99 [facility] Comment on above: Performed By: #### 2 341-6 ####SARAH Mcknight ([id number])[facility] ([facility])[address] [place] [address] Glucose [Mass/Vol] 192 mg/dL High 74 - 99 mg/dL [facility] Interpretation and review of laboratory results Abnormal [facility] Glucose [Mass/Vol] 192 mg/dL High 74-99 [facility] Comment on above: Performed By: #### 2 341-6 ####SARAH Mcknight ([id number])[facility] ([facility])[address] [place] [address] Magnesiumon 01-12-2023 Magnesium [Mass/Vol] 2.14 mg/dL Normal 1.60-2.40 [facility] Comment on above: Result Comment: MILD HEMOLYSIS DETECTED. The result may be falsely elevated due to hemolysis or other interferents. Clinical correlation is recommended. Repeat testing may be considered. Performed By: #### 1 9123-9 ####SARAH Mcknight ([id number])[facility] ([facility])[address] [place] [address] Magnesium [Mass/Vol] 1.73 mg/dL 1.60 - 2.40 mg/dL [facility] Comment on above: MILD HEMOLYSIS DETEC FEROZ. The result may be falsely elevated due to hemolysis or other interferents. Clinical correlation is recommended. Repeat testing may be considered. Magnesium [Mass/Vol] 1.73 mg/dL Normal 1.60-2.40 [facility] Comment on above: Result Comment: MILD HEMOLYSIS DETECTED. The result may be falsely elevated due to hemolysis or other interferents. Clinical correlation is recommended. Repeat testing may be considered. Performed By: #### 1 9123-9 ####SARAH Mcknight ([id number])[facility] ([facility])[address] [place] [address] Magnesium [Mass/Vol]on 01-12 Interpretation and review of laboratory results Normal [facility] No Panel Informationon 01-12 [facility] Renal function 2000 panelon 01-12-2023 Albumin BCP dye [Mass/Vol] 2.7 g/dL Low 3.4-5.0 [facility] Comment on above: Performed By: #### 2 4362-6 ####SARAH Mcknight ([id number])[facility] ([facility])[address] [place] [address] Anion gap [Moles/Vol] 11 mmol/L Normal [facility] Comment on above: Performed By: #### 2 4362-6 ####SARAH OMER L ([id number])[facility] ([facility])[address] [place] [address] Calcium [Mass/Vol] 9.8 mg/dL Normal 8.6-10.6 [facility] Comment on above: Performed By: #### 2 4362-6 ####SARAH OMER L ([id number])[facility] ([facility])[address] [place] [address] Chloride [Moles/Vol] 99 mmol/L Normal 98-107 [facility] Comment on above: Performed By: #### 2 4362-6 ####SARAH Mcknight ([id number])[facility] ([facility])[address] [place] [address] CO2 [Moles/Vol] 23 mmol/L Normal 21-32 [facility] Comment on above: Performed By: #### 2 4362-6 ####SARAH Mcknight ([id number])[facility] ([facility])[address] [place] [address] Creatinine [Mass/Vol] 0.71 mg/dL Normal 0.50-1.30 [facility] Comment on above: Performed By: #### 2 4362-6 ####SARAH OMER L ([id number])[facility] ([facility])[address] [place] [address] GFR/1.73 sq M.predicted MDRD (S/P/Bld) [Vol rate/Area] mL/min/{1.73_m2} Normal >60 [facility] Comment on above: Result Comment: Calc ulations of estimated GFR are performed using the 2020 CKD-EPI Study Refit equation without the race variable for the IDMS-Traceable creatinine methods.https://jasn.asnjournals.org/content//A SN.1095668086 Performed By: #### 2 4362-6 ####SARAH Mcknight ([id number])[facility] ([facility])[address] [place] [address] Glucose [Mass/Vol] 194 mg/dL High 74-99 [facility] Comment on above: Performed By: #### 2 4362-6 ####SARAH Mcknight ([id number])[facility] ([facility])[address] [place] [address] Phosphate [Mass/Vol] 1.9 mg/dL Low 2.5-4.9 [facility] Comment on above: Result Comment: MILD HEMOLYSIS DETECTED. The result may be falsely elevated due to hemolysis or other interferents. Clinical correlation is recommended. Repeat testing may be considered.The performance characteristics of phosphorus testing in heparinized plasma have been validated by the individual laboratory site where testing is performed. Testing on heparinized plasma is not approved by the FDA; however, such approval is not necessary. Performed By: #### 2 4362-6 ####SARAH Mcknight ([id number])[facility] ([facility])[address] [place] [address] Potassium [Moles/Vol] 6.1 mmol/L Critically high 3.5-5.3 [facility] Comment on above: Result Comment: MILD HEMOLYSIS DETECTED. The result may be falsely elevated due to hemolysis or other interferents. Clinical correlation is recommended. Repeat testing may be considered. Performed By: #### 2 4362-6 ####SARAH Mcknight ([id number])[facility] ([facility])[address] [place] [address] Sodium [Moles/Vol] 127 mmol/L Low 136-145 [facility] Comment on above: Performed By: #### 2 4362-6 ####SARAH Mcknight ([id number])[facility] ([facility])[address] [place] [address] Urea nitrogen [Mass/Vol] 11 mg/dL Normal 6-23 [facility] Comment on above: Performed By: #### 2 4362-6 ####SARAH Mcknight ([id number])[facility] ([facility])[address] [place] [address] Albumin BCP dye [Mass/Vol] 2.6 g/dL Low 3.4 - 5.0 g/dL [facility] Anion gap [Moles/Vol] 15 mmol/L 10 - 2 0 mmol/L [facility] Calcium [Mass/Vol] 10.3 mg/dL 8.6 - 10. 6 mg/dL [facility] Chloride [Moles/Vol] 100 mmol/L 98 - 10 7 mmol/L [facility] CO2 [Moles/Vol] 20 mmol/L Low 21 - 32 mmol/L [facility] Creatinine [Mass/Vol] 0.82 mg/dL 0.50 - 1.30 mg/dL [facility] GFR/1.73 sq M.predicted MDRD (S/P/Bld) [Vol rate/Area] - PINF [facility] Comment on above: Calculations of johnny mated GFR are performed using the 2020 CKD-EPI Study Refit equation without the race variable for the IDMS-Traceable creatinine methods. https://jasn.asnjournals.org/content//ASN.29695 11221 Glucose [Mass/Vol] 117 mg/dL High 74 - 99 mg/dL [facility] Interpretation and review of laboratory results Abnormal [facility] Phosphate [Mass/Vol] 2.5 mg/dL 2.5 - 4 .9 mg/dL [facility] Comment on above: MILD HEMOLYSIS DETEC FEROZ. The result may be falsely elevated due to hemolysis or other interferents. Clinical correlation is recommended. Repeat testing may be considered. The performance characteristics of phosphorus testing in heparinized plasma have been validated by the individual laboratory site where testing is performed. Testing on heparinized plasma is not approved by the FDA; however, such approval is not necessary. Potassium [Moles/Vol] 5.5 mmol/L High 3.5 - 5.3 mmol/L [facility] Comment on above: MILD HEMOLYSIS DETEC FEROZ. The result may be falsely elevated due to hemolysis or other interferents. Clinical correlation is recommended. Repeat testing may be considered. Sodium [Moles/Vol] 129 mmol/L Low 136 - 145 mmol/L [facility] Urea nitrogen [Mass/Vol] 16 mg/dL 6 - 23 mg/dL [facility] Albumin BCP dye [Mass/Vol] 2.6 g/dL Low 3.4-5.0 [facility] Comment on above: Performed By: #### 2 4362-6 ####SARAH Mcknight ([id number])[facility] ([facility])[address] [place] [address] Anion gap [Moles/Vol] 15 mmol/L Normal 10-20 [facility] Comment on above: Performed By: #### 2 4362-6 ####SARAH Mcknight ([id number])[facility] ([facility])[address] [place] [address] Calcium [Mass/Vol] 10.3 mg/dL Normal 8.6-10.6 [facility] Comment on above: Performed By: #### 2 4362-6 ####SARAH Mcknight ([id number])[facility] ([facility])[address] [place] [address] Chloride [Moles/Vol] 100 mmol/L Normal 98-107 [facility] Comment on above: Performed By: #### 2 4362-6 ####SARAH Mcknight ([id number])[facility] ([facility])[address] [place] [address] CO2 [Moles/Vol] 20 mmol/L Low 21-32 [facility] Comment on above: Performed By: #### 2 4362-6 ####SARAH OMER L ([id number])[facility] ([facility])[address] [place] [address] Creatinine [Mass/Vol] 0.82 mg/dL Normal 0.50-1.30 [facility] Comment on above: Performed By: #### 2 4362-6 ####SARAH Mcknight ([id number])[facility] ([facility])[address] [place] [address] GFR/1.73 sq M.predicted MDRD (S/P/Bld) [Vol rate/Area] mL/min/{1.73_m2} Normal >60 [facility] Comment on above: Result Comment: Calc ulations of estimated GFR are performed using the 2020 CKD-EPI Study Refit equation without the race variable for the IDMS-Traceable creatinine methods.https://jasn.asnjournals.org/content//A SN.6166828327 Performed By: #### 2 4362-6 ####SARAH OMER L ([id number])[facility] ([facility])[address] [place] [address] Glucose [Mass/Vol] 117 mg/dL High 74-99 [facility] Comment on above: Performed By: #### 2 4362-6 ####SARAH OMER L ([id number])[facility] ([facility])[address] [place] [address] Phosphate [Mass/Vol] 2.5 mg/dL Normal 2.5-4.9 [facility] Comment on above: Result Comment: MILD HEMOLYSIS DETECTED. The result may be falsely elevated due to hemolysis or other interferents. Clinical correlation is recommended. Repeat testing may be considered.The performance characteristics of phosphorus testing in heparinized plasma have been validated by the individual laboratory site where testing is performed. Testing on heparinized plasma is not approved by the FDA; however, such approval is not necessary. Performed By: #### 2 4362-6 ####SAARH PENALOZAMOTZRODNEY L ([id number])[facility] ([facility])[address] [place] [address] Potassium [Moles/Vol] 5.5 mmol/L High 3.5-5.3 [facility] Comment on above: Result Comment: MILD HEMOLYSIS DETECTED. The result may be falsely elevated due to hemolysis or other interferents. Clinical correlation is recommended. Repeat testing may be considered. Performed By: #### 2 4362-6 ####SARAH PENALOZAMOTZER L ([id number])[facility] ([facility])[address] [place] [address] Sodium [Moles/Vol] 129 mmol/L Low 136-145 [facility] Comment on above: Performed By: #### 2 4362-6 ####SARAH Mcknight ([id number])[facility] ([facility])[address] [place] [address] Urea nitrogen [Mass/Vol] 16 mg/dL Normal 6-23 [facility] Comment on above: Performed By: #### 2 4362-6 ####SARAH Mcknight ([id number])[facility] ([facility])[address] [place] [address] Tacrolimuson 01-12-2023 Tacrolimus (Bld) [Mass/Vol] 13.6 ng/mL Normal <=15.0 [facility] Comment on above: Order Comment: Pleas e ensure drawn prior to tacrolimus dosing.NOTE: Result was obtained using achemiluminescent microparticle immunoassay(CMIA) on the Tunnel Mucker i system.Optimal therapeutic ranges for immunosuppressantdrugs depend upon an individualpatient's current clinical state, type oforgan transplant, time post-transplant,co-administration of other immunosuppressants,and other clinical factors. The results ofthis test should be correlated with additionalclinical and laboratory data before changesin treatment regimens are made. Performed By: #### 1 1253-2 ####SARAH Mcknight ([id number])[facility] ([facility])[address] [place] [address] Tacrolimus (Bld) [Mass/Vol]O rdered By: Nhi Umana on 01-12-2023 Interpretation and review of laboratory results Normal [facility] NOTE: Result was obtained using a chemiluminescent microparticle immunoassay (CMIA) on the Tunnel Mucker i system. Optimal therapeutic ranges for immunosuppressant drugs depend upon an individual patient's current clinical state, type of organ transplant, time post-transplant, co-administration of other immunosuppressants, and other clinical factors. The results of this test should be correlated with additional clinical and laboratory data before changes in treatment regimens are made. [facility] Tacrolimus levelOrdered By: Nhi Umana on 01-12-2023 Tacrolimus (Bld) [Mass/Vol] 13.6 ng/mL NINF - 15.0 ng/mL [facility] Bacteria identifiedon 2022 Bacteria identified Cx Nom (Body fld) Abnormal [facility] Comment on above: Performed By: #### 6 11-4 ####SARAH Mcknight ([id number])[facility] ([facility])[address] [place] [address] Basic metabolic 2000 panelon 01-11-2023 Anion gap [Moles/Vol] 19 mmol/L 10 - 2 0 mmol/L [facility] Calcium [Mass/Vol] 10.0 mg/dL 8.6 - 10. 6 mg/dL [facility] Chloride [Moles/Vol] 98 mmol/L 98 - 10 7 mmol/L [facility] CO2 [Moles/Vol] 17 mmol/L Low 21 - 32 mmol/L [facility] Creatinine [Mass/Vol] 0.82 mg/dL 0.50 - 1.30 mg/dL [facility] GFR/1.73 sq M.predicted MDRD (S/P/Bld) [Vol rate/Area] - PINF [facility] Comment on above: Calculations of johnny mated GFR are performed using the 2020 CKD-EPI Study Refit equation without the race variable for the IDMS-Traceable creatinine methods. https://jasn.asnjournals.org/content//ASN.51864 31166 Glucose [Mass/Vol] 52 mg/dL Critically low 74 - 99 mg/dL [facility] Interpretation and review of laboratory results Abnormal [facility] Potassium [Moles/Vol] 5.2 mmol/L 3.5 - 5.3 mmol/L [facility] Sodium [Moles/Vol] 129 mmol/L Low 136 - 145 mmol/L [facility] Urea nitrogen [Mass/Vol] 15 mg/dL 6 - 23 mg/dL [facility] Anion gap [Moles/Vol] 19 mmol/L Normal 10-20 [facility] Comment on above: Performed By: #### 2 4321-2 ####SARAH OMER L ([id number])[facility] ([facility])[address] [place] [address] Calcium [Mass/Vol] 10.0 mg/dL Normal 8.6-10.6 [facility] Comment on above: Performed By: #### 2 4321-2 ####SARAH OMER L ([id number])[facility] ([facility])[address] [place] [address] Chloride [Moles/Vol] 98 mmol/L Normal 98-107 [facility] Comment on above: Performed By: #### 2 4321-2 ####SARAH OMER L ([id number])[facility] ([facility])[address] [place] [address] CO2 [Moles/Vol] 17 mmol/L Low 21-32 [facility] Comment on above: Performed By: #### 2 4321-2 ####SARAH OMER L ([id number])[facility] ([facility])[address] [place] [address] Creatinine [Mass/Vol] 0.82 mg/dL Normal 0.50-1.30 [facility] Comment on above: Performed By: #### 2 4321-2 ####SARAH OMER L ([id number])[facility] ([facility])[address] [place] [address] GFR/1.73 sq M.predicted MDRD (S/P/Bld) [Vol rate/Area] mL/min/{1.73_m2} Normal >60 [facility] Comment on above: Result Comment: Calc ulations of estimated GFR are performed using the 2020 CKD-EPI Study Refit equation without the race variable for the IDMS-Traceable creatinine methods.https://jasn.asnjournals.org/content//A SN.6901324727 Performed By: #### 2 4321-2 ####SARAH OMER L ([id number])[facility] ([facility])[address] [place] [address] Glucose [Mass/Vol] 52 mg/dL Critically low 74-99 [facility] Comment on above: Performed By: #### 2 4321-2 ####SARAH Mcknight ([id number])[facility] ([facility])[address] [place] [address] Potassium [Moles/Vol] 5.2 mmol/L Normal 3.5-5.3 [facility] Comment on above: Performed By: #### 2 4321-2 ####SARAH Mcknight ([id number])[facility] ([facility])[address] [place] [address] Sodium [Moles/Vol] 129 mmol/L Low 136-145 [facility] Comment on above: Performed By: #### 2 4321-2 ####SARAH Mcknight ([id number])[facility] ([facility])[address] [place] [address] Urea nitrogen [Mass/Vol] 15 mg/dL Normal 6-23 [facility] Comment on above: Performed By: #### 2 4321-2 ####SARAH Mcknight ([id number])[facility] ([facility])[address] [place] [address] CBC panel Auto (Bld)on 01-11 Erythrocyte distribution width (RBC) [Ratio] 15.9 % High 11.5 - 14.5 % [facility] Hematocrit (Bld) [Volume fraction] 31.9 % Low 41.0 - 52.0 % [facility] Hemoglobin (Bld) [Mass/Vol] 9.7 g/dL Low 13.5 - 17.5 g/dL [facility] Interpretation and review of laboratory results Abnormal [facility] MCH (RBC) [Entitic mass] 23.0 pg Low 26.0 - 34.0 pg [facility] MCHC (RBC) [Mass/Vol] 30.4 g/dL Low 32.0 - 36.0 g/dL [facility] MCV (RBC) [Entitic vol] 76 fL Low 80 - 100 fL [facility] Nucleated RBC/100 WBC (Bld) [Ratio] 0.0 % [facility] Platelet mean volume (Bld) [Entitic vol] 8.4 fL 7.5 - 11.5 fL [facility] Platelets (Bld) [#/Vol] 256 10*3/uL [facility] RBC (Bld) [#/Vol] 4.21 10*6/uL Low Unive [facility] WBC (Bld) [#/Vol] 10.0 10*3/uL [facility] Erythrocyte distribution width (RBC) [Ratio] 15.9 % High 11.5-14.5 [facility] Comment on above: Performed By: #### 5 8410-2 ####SARAH Mcknight ([id number])[facility] ([facility])[address] [place] [address] Hematocrit (Bld) [Volume fraction] 31.9 % Low 41.0-52.0 [facility] Comment on above: Performed By: #### 5 8410-2 ####SARAH Mcknight ([id number])[facility] ([facility])[address] [place] [address] Hemoglobin (Bld) [Mass/Vol] 9.7 g/dL Low 13.5-17.5 [facility] Comment on above: Performed By: #### 5 8410-2 ####SARAH Mcknight (59485)[facility] ([facility])[address] [place] [address] MCH (RBC) [Entitic mass] 23.0 pg Low 26.0-34.0 [facility] Comment on above: Performed By: #### 5 8410-2 ####SARAH Mcknight ([id number])[facility] ([facility])[address] [place] [address] MCHC (RBC) [Mass/Vol] 30.4 g/dL Low 32.0-36.0 [facility] Comment on above: Performed By: #### 5 8410-2 ####SARAH Mcknight ([id number])[facility] ([facility])[address] [place] [address] MCV (RBC) [Entitic vol] 76 fL Low 80-100 [facility] Comment on above: Performed By: #### 5 8410-2 ####SARAH Mcknight ([id number])[facility] ([facility])[address] [place] [address] Nucleated RBC/100 WBC (Bld) [Ratio] 0.0 /100 WBCs Normal 0.0-0.0 [facility] Comment on above: Performed By: #### 5 8410-2 ####SARAH Mcknight ([id number])[facility] ([facility])[address] [place] [address] Platelet mean volume (Bld) [Entitic vol] 8.4 fL Normal 7.5-11.5 [facility] Comment on above: Performed By: #### 5 8410-2 ####SARAH Mcknight (30593)[facility] ([facility])[address] [place] [address] Platelets (Bld) [#/Vol] 256 x10*3/uL Normal 150-450 [facility] Comment on above: Performed By: #### 5 8410-2 ####SARAH Mcknight ([id number])[facility] ([facility])[address] [place] [address] RBC (Bld) [#/Vol] 4.21 x10*6/uL Low 4.50-5.90 [facility] Comment on above: Performed By: #### 5 8410-2 ####SARAH Mcknight ([id number])[facility] ([facility])[address] [place] [address] WBC (Bld) [#/Vol] 10.0 x10*3/uL Normal 4.4-11.3 [facility] Comment on above: Performed By: #### 5 8410-2 ####SARAH Mcknight ([id number])[facility] ([facility])[address] [place] [address] CT GUIDED IMAGING FOR ABSCES S DRAINon 01-11-2023 CT GUIDED IMAGING FOR ABSCESS DRAIN Normal [facility] Comment on above: Order Comment: Await ing repeat CT of the abdomen/pelvis on 01/11/23 CT Guidance for percutaneous drainage of abscess and placement of drainage catheter of Unspecified body regionon 01-11-2023 Radiology Study observation (narrative) [facility] Work Phone: Glucose Test strip manual (B ld) [Mass/Vol]on 01-11-2023 Glucose [Mass/Vol] 88 mg/dL 74 - 99 mg/dL [facility] Interpretation and review of laboratory results Normal [facility] Glucose [Mass/Vol] 88 mg/dL Normal 74-99 [facility] Comment on above: Performed By: #### 2 341-6 ####SARAH Mcknight ([id number])[facility] ([facility])[address] [place], [place] [address] Magnesiumon 01-11-2023 Magnesium [Mass/Vol] 1.74 mg/dL 1.60 - 2.40 mg/dL [facility] Magnesium [Mass/Vol] 1.74 mg/dL Normal 1.60-2.40 [facility] Comment on above: Performed By: #### 1 9123-9 ####SARAH Mcknight ([id number])[facility] ([facility])[address] [place] [address] Magnesium [Mass/Vol]on 01-11 Interpretation and review of laboratory results Normal [facility] No Panel Informationon 01-11 [facility] Tacrolimuson 01-11-2023 Tacrolimus (Bld) [Mass/Vol] 21.3 ng/mL Critically high <=15.0 [facility] Comment on above: Order Comment: Pleas e ensure drawn prior to tacrolimus dosing.NOTE: Result was obtained using achemiluminescent microparticle immunoassay(CMIA) on the Tunnel Mucker i system.Optimal therapeutic ranges for immunosuppressantdrugs depend upon an individualpatient's current clinical state, type oforgan transplant, time post-transplant,co-administration of other immunosuppressants,and other clinical factors. The results ofthis test should be correlated with additionalclinical and laboratory data before changesin treatment regimens are made. Performed By: #### 1 1253-2 ####SARAH Mcknight ([id number])[facility] ([facility])[address] [place] [address] Tacrolimus (Bld) [Mass/Vol]O rdered By: Zachary Cruz on 01-11-2023 Interpretation and review of laboratory results Abnormal [facility] NOTE: Result was obtained using a chemiluminescent microparticle immunoassay (CMIA) on the Tunnel Mucker i system. Optimal therapeutic ranges for immunosuppressant drugs depend upon an individual patient's current clinical state, type of organ transplant, time post-transplant, co-administration of other immunosuppressants, and other clinical factors. The results of this test should be correlated with additional clinical and laboratory data before changes in treatment regimens are made. [facility] Tacrolimus levelOrdered By: Zachary Cruz on 01-11-2023 Tacrolimus (Bld) [Mass/Vol] 21.3 ng/mL Critically high NINF - 15.0 ng/mL [facility] Basic metabolic 2000 panelOr dered By: Jose Rodriguez on 01-10-2023 Anion gap [Moles/Vol] 11 mmol/L 10 - 20 [facility] Calcium [Mass/Vol] 9.0 mg/dL 8.4 - 10. 4 mg/dL [facility] Chloride [Moles/Vol] 92 mmol/L Low 97 - 11 1 mmol/L [facility] CO2 [Moles/Vol] 20 mmol/L Low 21 - 30 mmol/L [facility] Creatinine [Mass/Vol] 0.62 mg/dL Low 0.80 - 1.30 mg/dL [facility] GFR/1.73 sq M.predicted MDRD (S/P/Bld) [Vol rate/Area] 105 mL/min/{1.73_m2} - PINF [facility] Comment on above: 2020 CKD EPI Equatio n using Creatinine without Race Comment: Estimated glomerular filtration rate (eGFR) is calculated without a race coefficient. Values should be interpreted in the context of the patient's full clinical presentation. Reference: 1. Glenn Oorzco M, Yohana MCLEAN, et al.. A Unifying Approach for GFR Estimation: Recommendations of the NKF-ASN Task Force on Reassessing the Inclusion of Race in Diagnosing Kidney Disease. [place] Journal of Kidney Diseases 2021;79(2):268-88.e1. 2. N Engl J Med 1 Vol. 385 Issue 19 Pages 7743-0795 Glucose [Mass/Vol] 79 mg/dL Low 80 - 116 mg/dL [facility] Interpretation and review of laboratory results Abnormal [facility] Potassium [Moles/Vol] 5.2 mmol/L 3.3 - 5.3 mmol/L [facility] Sodium [Moles/Vol] 118 mmol/L Critically low 135 - 1 48 mmol/L [facility] Urea nitrogen [Mass/Vol] 11 mg/dL 8 - 22 mg/dL [facility] Blood type and Indirect anti body screen panel (Bld)on 01-10-2023 ABO group Nom (Bld) A [facility] Blood group antibody screen Ql Negative [facility] D Ag Ql (Bld) Positive [facility] ABO group Nom (Bld) A Normal [facility] Comment on above: Performed By: #### 3 4532-2 ####SARAH Mcknight ([id number])[facility] ([facility])[address] [place] [address] Blood group antibody screen Ql Negative Normal [facility] Comment on above: Performed By: #### 3 4532-2 ####SARAH Mcknight ([id number])[facility] ([facility])[address] [place] [address] D Ag Ql (Bld) Positive Normal [facility] Comment on above: Performed By: #### 3 4532-2 ####SARAH Mcknight ([id number])[facility] ([facility])[address] [place] [address] CBC panel Auto (Bld)on 01-10 Erythrocyte distribution width (RBC) [Ratio] 16.2 % High 11.5 - 14.5 % [facility] Hematocrit (Bld) [Volume fraction] 32.9 % Low 41.0 - 52.0 % [facility] Hemoglobin (Bld) [Mass/Vol] 10.6 g/dL Low 13.5 - 17.5 g/dL [facility] Interpretation and review of laboratory results Abnormal [facility] MCH (RBC) [Entitic mass] 23.3 pg Low 26.0 - 34.0 pg [facility] MCHC (RBC) [Mass/Vol] 32.2 g/dL 32.0 - 36.0 g/dL [facility] MCV (RBC) [Entitic vol] 73 fL Low 80 - 100 fL [facility] Nucleated RBC/100 WBC (Bld) [Ratio] 0.0 % [facility] Platelet mean volume (Bld) [Entitic vol] 8.6 fL 7.5 - 11.5 fL [facility] Platelets (Bld) [#/Vol] 260 10*3/uL [facility] RBC (Bld) [#/Vol] 4.54 10*6/uL Un[facility] WBC (Bld) [#/Vol] 12.2 10*3/uL [facility] Erythrocyte distribution width (RBC) [Ratio] 16.2 % High 11.5-14.5 [facility] Comment on above: Performed By: #### 5 8410-2 ####SARAH Mcknight ([id number])[facility] ([facility])[address] [place] [address] Hematocrit (Bld) [Volume fraction] 32.9 % Low 41.0-52.0 [facility] Comment on above: Performed By: #### 5 8410-2 ####SARAH Mcknight ([id number])[facility] ([facility])[address] [place] [address] Hemoglobin (Bld) [Mass/Vol] 10.6 g/dL Low 13.5-17.5 [facility] Comment on above: Performed By: #### 5 8410-2 ####SARAH Mcknight ([id number])[facility] ([facility])[address] [place] [address] MCH (RBC) [Entitic mass] 23.3 pg Low 26.0-34.0 [facility] Comment on above: Performed By: #### 5 8410-2 ####SARAH Mcknight (62913)[facility] ([facility])[address] [place] [address] MCHC (RBC) [Mass/Vol] 32.2 g/dL Normal 32.0-36.0 [facility] Comment on above: Performed By: #### 5 8410-2 ####SARAH Mcknight (09603)[facility] ([facility])[address] [place] [address] MCV (RBC) [Entitic vol] 73 fL Low 80-100 [facility] Comment on above: Performed By: #### 5 8410-2 ####SARAH Mcknight ([id number])[facility] ([facility])[address] [place] [address] Nucleated RBC/100 WBC (Bld) [Ratio] 0.0 /100 WBCs Normal 0.0-0.0 [facility] Comment on above: Performed By: #### 5 8410-2 ####SARAH Mcknight ([id number])[facility] ([facility])[address] [place] [address] Platelet mean volume (Bld) [Entitic vol] 8.6 fL Normal 7.5-11.5 [facility] Comment on above: Performed By: #### 5 8410-2 ####SARAH Mcknight ([id number])[facility] ([facility])[address] [place] [address] Platelets (Bld) [#/Vol] 260 x10*3/uL Normal 150-450 [facility] Comment on above: Performed By: #### 5 8410-2 ####SARAH Mcknight ([id number])[facility] ([facility])[address] [place] [address] RBC (Bld) [#/Vol] 4.54 x10*6/uL Normal 4.50-5.90 [facility] Comment on above: Performed By: #### 5 8410-2 ####SARAH Mcknight ([id number])[facility] ([facility])[address] [place] [address] WBC (Bld) [#/Vol] 12.2 x10*3/uL High 4.4-11.3 [facility] Comment on above: Performed By: #### 5 8410-2 ####SARAH Mcknight ([id number])[facility] ([facility])[address] [place] [address] Comprehensive metabolic 2000 panelon 01-10-2023 Albumin BCP dye [Mass/Vol] 3.1 g/dL Low 3.4 - 5.0 g/dL [facility] ALP [Catalytic activity/Vol] 55 U/L 33 - 136 U/L [facility] ALT With P-5'-P [Catalytic activity/Vol] 7 U/L Low 10 - 52 U/L [facility] Comment on above: Patients treated wit h Sulfasalazine may generate falsely decreased results for ALT. Anion gap [Moles/Vol] 17 mmol/L [facility] AST With P-5'-P [Catalytic activity/Vol] 9 U/L 9 - 39 U/L [facility] Bilirubin [Mass/Vol] 0.7 mg/dL 0.0 - 1 .2 mg/dL [facility] Calcium [Mass/Vol] 9.9 mg/dL 8.6 - 10. 6 mg/dL [facility] Chloride [Moles/Vol] 92 mmol/L Low 98 - 10 7 mmol/L [facility] CO2 [Moles/Vol] 19 mmol/L Low 21 - 32 mmol/L [facility] Creatinine [Mass/Vol] 0.64 mg/dL 0.50 - 1.30 mg/dL [facility] GFR/1.73 sq M.predicted MDRD (S/P/Bld) [Vol rate/Area] - PINF [facility] Comment on above: Calculations of johnny mated GFR are performed using the 2021 CKD-EPI Study Refit equation without the race variable for the IDMS-Traceable creatinine methods. https://jasn.asnjournals.org/content//ASN.[email or web address] Glucose [Mass/Vol] 50 mg/dL Critically low 74 - 99 mg/dL [facility] Interpretation and review of laboratory results Abnormal [facility] Potassium [Moles/Vol] 4.5 mmol/L 3.5 - 5.3 mmol/L [facility] Protein [Mass/Vol] 5.7 g/dL Low 6.4 - 8.2 g/dL [facility] Sodium [Moles/Vol] 123 mmol/L Low 136 - 145 mmol/L [facility] Urea nitrogen [Mass/Vol] 11 mg/dL 6 - 23 mg/dL [facility] Albumin BCP dye [Mass/Vol] 3.1 g/dL Low 3.4-5.0 [facility] Comment on above: Performed By: #### 2 4323-8 ####SARAH Mcknight ([id number])[facility] ([facility])[address] [place] [address] ALP [Catalytic activity/Vol] 55 U/L Normal 33-136 [facility] Comment on above: Performed By: #### 2 4323-8 ####SARAH Mcknight ([id number])[facility] ([facility])[address] [place] [address] ALT With P-5'-P [Catalytic activity/Vol] 7 U/L Low 10-52 [facility] Comment on above: Result Comment: Aneta ents treated with Sulfasalazine may generate falsely decreased results for ALT. Performed By: #### 2 4323-8 ####SARAH Mcknight ([id number])[facility] ([facility])[address] [place] [address] Anion gap [Moles/Vol] 17 mmol/L Normal [facility] Comment on above: Performed By: #### 2 4323-8 ####SARAH Mcknight ([id number])[facility] ([facility])[address] [place] [address] AST With P-5'-P [Catalytic activity/Vol] 9 U/L Normal 9-39 [facility] Comment on above: Performed By: #### 2 4323-8 ####SARAH Mcknight ([id number])[facility] ([facility])[address] [place] [address] Bilirubin [Mass/Vol] 0.7 mg/dL Normal 0.0-1.2 [facility] Comment on above: Performed By: #### 2 4323-8 ####SARAH Mcknight ([id number])[facility] ([facility])[address] [place] [address] Calcium [Mass/Vol] 9.9 mg/dL Normal 8.6-10.6 [facility] Comment on above: Performed By: #### 2 4323-8 ####SARAH Mcknight ([id number])[facility] ([facility])[address] [place] [address] Chloride [Moles/Vol] 92 mmol/L Low 98-107 [facility] Comment on above: Performed By: #### 2 4323-8 ####SARAH Mcknight ([id number])[facility] ([facility])[address] [place] [address] CO2 [Moles/Vol] 19 mmol/L Low 21-32 [facility] Comment on above: Performed By: #### 2 4323-8 ####SARAH Mcknight ([id number])[facility] ([facility])[address] [place] [address] Creatinine [Mass/Vol] 0.64 mg/dL Normal 0.50-1.30 [facility] Comment on above: Performed By: #### 2 4323-8 ####SARAH Mcknight ([id number])[facility] ([facility])[address] [place] [address] GFR/1.73 sq M.predicted MDRD (S/P/Bld) [Vol rate/Area] mL/min/{1.73_m2} Normal >60 [facility] Comment on above: Result Comment: Calc ulations of estimated GFR are performed using the 2020 CKD-EPI Study Refit equation without the race variable for the IDMS-Traceable creatinine methods.https://jasn.asnjournals.org/content//A [email or web address] Performed By: #### 2 4323-8 ####SARAH Mcknight ([id number])[facility] ([facility])[address] [place] [address] Glucose [Mass/Vol] 50 mg/dL Critically low 74-99 [facility] Comment on above: Performed By: #### 2 4323-8 ####SARAH Mcknight ([id number])[facility] ([facility])[address] [place] [address] Potassium [Moles/Vol] 4.5 mmol/L Normal 3.5-5.3 [facility] Comment on above: Performed By: #### 2 4323-8 ####SARAH OMER L ([id number])[facility] ([facility])[address] [place] [address] Protein [Mass/Vol] 5.7 g/dL Low 6.4-8.2 [facility] Comment on above: Performed By: #### 2 4323-8 ####SARAH OMER L ([id number])[facility] ([facility])[address] [place] [address] Sodium [Moles/Vol] 123 mmol/L Low 136-145 [facility] Comment on above: Performed By: #### 2 4323-8 ####SARAH OMER L ([id number])[facility] ([facility])[address] [place] [address] Urea nitrogen [Mass/Vol] 11 mg/dL Normal 6-23 [facility] Comment on above: Performed By: #### 2 4323-8 ####SARAH Mcknight ([id number])[facility] ([facility])[address] [place] [address] ED Noteson 01-10-2023 Lathe Setup Operator Authentication Interface Message Text Report to transport. Normal [facility] [email or web address] [facility] Lathe Setup Operator Authentication Interface Message Text Pt accepted to [facility] by [facility]. Room [facility]. #[phone] Normal [facility] [email or web address] [facility] Lathe Setup Operator Authentication Interface Message Text notified of critical SODIUM value of 118. Hard copy of results given to . Normal [facility] [email or web address] [facility] Glucose Test strip manual (B ld) [Mass/Vol]on 01-10-2023 Glucose [Mass/Vol] 76 mg/dL 74 - 99 mg/dL [facility] Interpretation and review of laboratory results Normal [facility] Glucose [Mass/Vol] 76 mg/dL Normal 74-99 [facility] Comment on above: Performed By: #### 2 341-6 ####SARAH Mcknight ([id number])[facility] ([facility])[address] [place], [place] [id number] PT and aPTT panel Coag (PPP) on 01-10-2023 aPTT Coag (PPP) [Time] 27 s Un [facility] INR Coag (PPP) [Relative time] 1.2 {INR} High 0.9 - 1.1 [facility] Interpretation and review of laboratory results Abnormal [facility] PT Coag (PPP) [Time] 13.0 s High [facility] The APTT is no longe r used for monitoring Unfractionated Heparin Therapy. For monitoring Heparin Therapy, use the Heparin Assay. [facility] aPTT Coag (PPP) [Time] 27 s Normal 27-38 Un [facility] Comment on above: Order Comment: The A PTT is no longer used for monitoring Unfractionated Heparin Therapy. For monitoring Heparin Therapy, use the Heparin Assay. Performed By: #### 3 4529-8 ####SARAH Mcknight ([id number])[facility] ([facility])[id number] [place], [place] [id number] INR Coag (PPP) [Relative time] 1.2 High 0.9-1.1 [facility] Comment on above: Order Comment: The A PTT is no longer used for monitoring Unfractionated Heparin Therapy. For monitoring Heparin Therapy, use the Heparin Assay. Performed By: #### 3 4529-8 ####SARAH Mcknight ([id number])[facility] ([facility])[address] [place] [address] PT Coag (PPP) [Time] 13.0 s High 9.8-12.8 [facility] Comment on above: Order Comment: The A PTT is no longer used for monitoring Unfractionated Heparin Therapy. For monitoring Heparin Therapy, use the Heparin Assay. Performed By: #### 3 4529-8 ####SARAH Mcknight ([id number])[facility] ([facility])[address] [place] [address] ABO RH TYPEon 01-09-2023 [facility] ABO and Rh group Nom (Bld) Blood group A Rh(D) positive Normal [facility] [email or web address] [facility] Comment on above: Performed By: #### Matt DAVIS #### [facility] [address] [place], [address] Alanine aminotransferase [En zymatic activity/volume] in Serum or PlasmaOrdered By: Matthew Marin on 01-09-2023 ALT [Catalytic activity/Vol] 7 U/L 7-52 [facility] Albumin [Mass/volume] in Ser um or Plasma by Bromocresol green (BCG) dye binding methoOrdered By: Matthew Marin on 01-09-2023 Albumin BCG dye [Mass/Vol] 3.2 g/dL 3.5-5.7 [facility] Alkaline phosphatase [Enzyma tic activity/volume] in Serum or PlasmaOrdered By: Matthew Marin on 01-09-2023 ALP [Catalytic activity/Vol] 60 U/L 34-104 [facility] Aspartate aminotransferase [ Enzymatic activity/volume] in Serum or PlasmaOrdered By: Matthew Marin on 01-09-2023 AST [Catalytic activity/Vol] 12 U/L 13-39 [facility] Automated erythrocytes count in urine sediment (number/area)Ordered By: Matthew Marin on 01-09-2023 RBC Auto (Urine sed) [#/Area] 3-4 [HPF] 0-4 [facility] Automated leukocytes count i n urine sediment (number/area)Ordered By: Matthew Marin on 01-09-2023 WBC Auto (Urine sed) [#/Area] 0-1 [HPF] 0-4 [facility] BASIC METABOLIC PANELon 10-2 Anion gap [Moles/Vol] 11 mmol/L Normal 10-20 [facility] Comment on above: Performed By: #### C H8 #### [facility] [address] [place] [address], Calcium [Mass/Vol] 9.0 mg/dL Normal 8.4-10.4 [facility] Comment on above: Performed By: #### C H8 #### [facility] [address] [place] [address], Chloride [Moles/Vol] 92 mmol/L Low 97-111 [facility] Comment on above: Performed By: #### C H8 #### [facility] [address] [place] [address], CO2 [Moles/Vol] 20 mmol/L Low 21-30 [facility] Comment on above: Performed By: #### C H8 #### [facility] [address] [place] [address], Creatinine [Mass/Vol] 0.62 mg/dL Low 0.80-1.30 [facility] Comment on above: Performed By: #### C H8 #### [facility] [address] [place] [address], ESTIMATED GFR (CKD-EPI) 105 mL/min/1.73sqm Normal >=60 [facility] Comment on above: Result Comment: 2020 CKD EPI Equation using Creatinine without Race Comment: Estimated glomerular filtration rate (eGFR) is calculated without a race coefficient. Values should be interpreted in the context of the patient's full clinical presentation. Reference: 1. Keon Gallo, Glenn M, Yohana MCLEAN, et al.. A Unifying Approach for GFR Estimation: Recommendations of the NKF-ASN Task Force on Reassessing the Inclusion of Race in Diagnosing Kidney Disease. [place] Journal of Kidney Diseases 2021;79(2):268-88.e1. 2. N Engl J Med 1 Vol. 385 Issue 19 Pages 0334-5009 Performed By: #### C H8 #### [facility] [address] [place] [address], Glucose [Mass/Vol] 79 mg/dL Low 80-116 [facility] Comment on above: Performed By: #### C H8 #### [facility] [address] [place] [address], Potassium [Moles/Vol] 5.2 mmol/L Normal 3.3-5.3 [facility] Comment on above: Performed By: #### C H8 #### [facility] [address] [place] [address], Sodium [Moles/Vol] 118 mmol/L Critically low 135-148 [facility] Comment on above: Performed By: #### C H8 #### [facility] [address] [place] [address], Urea nitrogen [Mass/Vol] 11 mg/dL Normal 8-22 [facility] Comment on above: Performed By: #### C H8 #### [facility] [address] [place] [address], Anion gap [Moles/Vol] 14 mmol/L Normal 10-20 [facility] Comment on above: Performed By: #### T S #### [facility] [address] [place] [address], Calcium [Mass/Vol] 9.3 mg/dL Normal 8.4-10.4 [facility] Comment on above: Performed By: #### T S #### [facility] [address] [place] [address], Chloride [Moles/Vol] 89 mmol/L Low 97-111 [facility] Comment on above: Performed By: #### T S #### [facility] [address] [place] [address], CO2 [Moles/Vol] 20 mmol/L Low 21-30 [facility] Comment on above: Performed By: #### T S #### [facility] [address] [place], [place], Creatinine [Mass/Vol] 0.62 mg/dL Low 0.80-1.30 [facility] Comment on above: Performed By: #### T S #### [facility] [address] [place], [place], ESTIMATED GFR (CKD-EPI) 105 mL/min/1.73sqm Normal >=60 [facility] Comment on above: Result Comment: 2020 CKD EPI Equation using Creatinine without Race Comment: Estimated glomerular filtration rate (eGFR) is calculated without a race coefficient. Values should be interpreted in the context of the patient's full clinical presentation. Reference: 1. Keon C, Glenn M, Yohana MCLEAN, et al.. A Unifying Approach for GFR Estimation: Recommendations of the NKF-ASN Task Force on Reassessing the Inclusion of Race in Diagnosing Kidney Disease. [place] Journal of Kidney Diseases 2021;79(2):268-88.e1. 2. N Engl J Med 1 Vol. 385 Issue 19 Pages 1225-1349 Performed By: #### T S #### [facility] [address] [place], [place], Glucose [Mass/Vol] 89 mg/dL Normal 80-116 [facility] Comment on above: Performed By: #### T S #### [facility] [address] [place], [place], Potassium [Moles/Vol] 5.2 mmol/L Normal 3.3-5.3 [facility] Comment on above: Performed By: #### T S #### [facility] [address] [place], [place], Sodium [Moles/Vol] 118 mmol/L Critically low 135-148 [facility] Comment on above: Performed By: #### T S #### [facility] [address] [place], [place], Urea nitrogen [Mass/Vol] 11 mg/dL Normal 8-22 [facility] Comment on above: Performed By: #### T S #### [facility] [address] [place] [address], Anion gap [Moles/Vol] 15 mmol/L Normal 10-20 [facility] Comment on above: Performed By: #### C H8 #### [facility] [address] [place] [address], Calcium [Mass/Vol] 9.2 mg/dL Normal 8.4-10.4 [facility] Comment on above: Performed By: #### C H8 #### [facility] [address] [place] [address], Chloride [Moles/Vol] 85 mmol/L Low 97-111 [facility] Comment on above: Performed By: #### C H8 #### [facility] [address] [place] [address], CO2 [Moles/Vol] 18 mmol/L Low 21-30 [facility] Comment on above: Performed By: #### C H8 #### [facility] [address] [place] [address], Creatinine [Mass/Vol] 0.63 mg/dL Low 0.80-1.30 [facility] Comment on above: Performed By: #### C H8 #### [facility] [address] [place] [address], ESTIMATED GFR (CKD-EPI) 105 mL/min/1.73sqm Normal >=60 [facility] Comment on above: Result Comment: 2020 CKD EPI Equation using Creatinine without Race Comment: Estimated glomerular filtration rate (eGFR) is calculated without a race coefficient. Values should be interpreted in the context of the patient's full clinical presentation. Reference: 1. Keon C, Glenn M, Yohana DC, et al.. A Unifying Approach for GFR Estimation: Recommendations of the NKF-ASN Task Force on Reassessing the Inclusion of Race in Diagnosing Kidney Disease. [place] Journal of Kidney Diseases 2021;79(2):268-88.e1. 2. N Engl J Med 1 Vol. 385 Issue 19 Pages 1761-1436 Performed By: #### C H8 #### [facility] [address] [place], [place], Glucose [Mass/Vol] 110 mg/dL Normal 80-116 [facility] Comment on above: Performed By: #### C H8 #### [facility] [address] [place], [place], Potassium [Moles/Vol] 5.2 mmol/L Normal 3.3-5.3 [facility] Comment on above: Performed By: #### C H8 #### [facility] [address] [place], [place], Sodium [Moles/Vol] 113 mmol/L Critically low 135-148 [facility] Comment on above: Performed By: #### C H8 #### [facility] [address] [place], [place], Urea nitrogen [Mass/Vol] 11 mg/dL Normal 8-22 [facility] Comment on above: Performed By: #### C H8 #### [facility] [address] [place], [place], Basic Metabolic Panelon 10-2 Anion gap [Moles/Vol] 10.1 mmol/L Normal 6.0-15.0 [facility] Comment on above: Performed By: #### B KASSI, CBC #### [facility] [address] [place] [address] [place] Calcium [Mass/Vol] 9.6 mg/dL Normal 8.6-10.3 [facility] Comment on above: Performed By: #### B KASSI, CBC #### [facility] [address] [place] [address] [place] Chloride [Moles/Vol] 81 mmol/L Low 98-107 [facility] Comment on above: Performed By: #### B MP, CBC #### [facility] [address] [place] [address] [place] CO2 [Moles/Vol] 23.0 mmol/L Normal 21.0-31.[address] [facility] Comment on above: Performed By: #### B MP, CBC #### [facility] [address] [place] [address] [place] Creatinine [Mass/Vol] 0.74 mg/dL Normal 0.70-1.30 [facility] Comment on above: Performed By: #### B MP, CBC #### [facility] [address] [place] [address] [place] Creatinine Clr Calc Pharmacy 100.42 [facility] Comment on above: Performed By: #### B MP, CBC #### [facility] [address] [place] [address] [place] GFR/1.73 sq M.predicted MDRD (S/P/Bld) [Vol rate/Area] mL/min/{1.73_m2} [facility] Comment on above: Performed By: #### B MP, CBC #### [address] Glucose [Mass/Vol] 106 mg/dL High 70-100 [facility] Comment on above: Result Comment: [facility] Glucose Reference Range is dependent on time and content of last meal. Glucose of more than 200 mg/dL in a nonstressed, ambulatory subject supports the diagnosis of Diabetes Mellitus. ADA recommended reference range Performed By: #### B MP, CBC #### [address] Potassium [Moles/Vol] 5.1 mmol/L Normal 3.5-5.1 [facility] Comment on above: Performed By: #### B MP, CBC #### [place] [address] [place] Sodium [Moles/Vol] 109 mmol/L Off scale low 136-145 [facility] Comment on above: Result Comment: Crit ical Result Called to and read back by: ALONDRA HINTON at: 01/09/2023 11:29:32 by:SIL Performed By: #### B MP, CBC #### [place] [address] [place] Urea nitrogen [Mass/Vol] 12 mg/dL Normal 7-25 [facility] Comment on above: Performed By: #### B MP, CBC #### [address] [place] [address] [facility] Basic metabolic 2000 panelon 01-09-2023 Anion gap [Moles/Vol] 14 mmol/L 10 - 20 [facility] Calcium [Mass/Vol] 9.3 mg/dL 8.4 - 10. 4 mg/dL [facility] Chloride [Moles/Vol] 89 mmol/L Low 97 - 11 1 mmol/L [facility] CO2 [Moles/Vol] 20 mmol/L Low 21 - 30 mmol/L [facility] Creatinine [Mass/Vol] 0.62 mg/dL Low 0.80 - 1.30 mg/dL [facility] GFR/1.73 sq M.predicted MDRD (S/P/Bld) [Vol rate/Area] 105 mL/min/{1.73_m2} - PINF [facility] Comment on above: 2020 CKD EPI Equatio n using Creatinine without Race Comment: Estimated glomerular filtration rate (eGFR) is calculated without a race coefficient. Values should be interpreted in the context of the patient's full clinical presentation. Reference: 1. Keon C, Glenn M, Yohana DC, et al.. A Unifying Approach for GFR Estimation: Recommendations of the NKF-ASN Task Force on Reassessing the Inclusion of Race in Diagnosing Kidney Disease. [place] Journal of Kidney Diseases 2021;79(2):268-88.e1. 2. N Engl J Med 1 Vol. 385 Issue 19 Pages 7905-7022 Glucose [Mass/Vol] 89 mg/dL 80 - 116 mg/dL [facility] Interpretation and review of laboratory results Abnormal [facility] Potassium [Moles/Vol] 5.2 mmol/L 3.3 - 5.3 mmol/L [facility] Sodium [Moles/Vol] 118 mmol/L Critically low 135 - 1 48 mmol/L [facility] Urea nitrogen [Mass/Vol] 11 mg/dL 8 - 22 mg/dL [facility] Basic metabolic 2000 panelOr dered By: Severo Hurtado on 01-09-2023 Anion gap [Moles/Vol] 15 mmol/L 10 - 20 [facility] Calcium [Mass/Vol] 9.2 mg/dL 8.4 - 10. 4 mg/dL [facility] Chloride [Moles/Vol] 85 mmol/L Low 97 - 11 1 mmol/L [facility] CO2 [Moles/Vol] 18 mmol/L Low 21 - 30 mmol/L [facility] Creatinine [Mass/Vol] 0.63 mg/dL Low 0.80 - 1.30 mg/dL [facility] GFR/1.73 sq M.predicted MDRD (S/P/Bld) [Vol rate/Area] 105 mL/min/{1.73_m2} - PINF [facility] Comment on above: 2020 CKD EPI Equatio n using Creatinine without Race Comment: Estimated glomerular filtration rate (eGFR) is calculated without a race coefficient. Values should be interpreted in the context of the patient's full clinical presentation. Reference: 1. Keon C, Glenn M, Yohana DC, et al.. A Unifying Approach for GFR Estimation: Recommendations of the NKF-ASN Task Force on Reassessing the Inclusion of Race in Diagnosing Kidney Disease. [place] Journal of Kidney Diseases 2021;79(2):268-88.e1. 2. N Engl J Med 1 Vol. 385 Issue 19 Pages 6553-2300 Glucose [Mass/Vol] 110 mg/dL 80 - 116 mg/dL [facility] Interpretation and review of laboratory results Abnormal [facility] Potassium [Moles/Vol] 5.2 mmol/L 3.3 - 5.3 mmol/L [facility] Sodium [Moles/Vol] 113 mmol/L Critically low 135 - 1 48 mmol/L [facility] Urea nitrogen [Mass/Vol] 11 mg/dL 8 - 22 mg/dL [facility] Basophils Auto (Bld) [#/Vol] Ordered By: Matthew Marin on 01-09-2023 Basophils (Bld) [#/Vol] 0.0 10*3/uL 0.0-0.2 [facility] Basophils/100 WBC Auto (Bld) Ordered By: Matthew Marin on 01-09-2023 Basophils/100 WBC (Bld) 0.4 % . [facility] Bilirubin Test strip Ql (U)O rdered By: Matthew Marin on 01-09-2023 Bilirubin Ql (U) Negative Negative [facility] Bilirubin.direct [Mass/volum e] in Serum or PlasmaOrdered By: Matthew Marin on 01-09-2023 Bilirubin.direct [Mass/Vol] 0.30 mg/dL 0.03-0.18 [facility] Bilirubin.total [Mass/volume ] in Serum or PlasmaOrdered By: Matthew Marin on 01-09-2023 Bilirubin [Mass/Vol] 1.1 mg/dL 0.3-1.0 [facility] Blood Cultureon 01-09-2023 Bacteria identified Cx Nom (Bld) NO GROWTH 5 DAYS PERFORMED BY: [place] [address] PATHOLOGIST [employer] SAMANTHA ROTH M.D. [facility] Comment on above: Performed By: #### C ORT, TSH3 #### [facility] [address] [place] [address] Bacteria identified Cx Nom (Bld) NO GROWTH 5 DAYS PERFORMED BY: [place] [address] PATHOLOGIST [employer] SAMANTHA ROTH M.D. [facility] Comment on above: Performed By: #### C ORT, TSH3 #### [facility] [address] [place] [address] CBC WITH DIFFERENTIALon 12-14 Basophils (Bld) [#/Vol] 0.02 10*3/uL 0.00 - 0.20 K/uL [facility] Basophils/100 WBC (Bld) 0.2 % NINF - 1.9 % [facility] Eosinophils (Bld) [#/Vol] 0.01 10*3/uL 0.00 - 0.70 K/uL [facility] Eosinophils/100 WBC (Bld) 0.1 % 0.1 - 4.0 % [facility] Erythrocyte distribution width (RBC) [Ratio] 17.3 % High 11.5 - 14.5 % [facility] Hematocrit (Bld) [Volume fraction] 34.3 % Low 41.0 - 53.0 % [facility] Hemoglobin (Bld) [Mass/Vol] 11.1 g/dL Low 13.9 - 16.3 g/dL [facility] Interpretation and review of laboratory results Abnormal [facility] Lymphocytes (Bld) [#/Vol] 0.30 10*3/uL Low 1.00 - 4.80 K/uL [facility] Lymphocytes/100 WBC (Bld) 2.7 % Low 24.0 - 44.0 % [facility] MCH (RBC) [Entitic mass] 23.2 pg Low 26.0 - 34.0 pg [facility] MCHC (RBC) [Mass/Vol] 32.2 g/dL 32.0 - 35.9 g/dL [facility] MCV (RBC) [Entitic vol] 72 fL Low 80 - 100 fL [facility] Monocyte distribution width Auto (Bld) [Entitic vol] 21 High NINF - 20 [facility] Monocytes (Bld) [#/Vol] 0.26 10*3/uL 0.20 - 1.00 K/uL [facility] Monocytes/100 WBC (Bld) 2.2 % 2.0 - 11.0 % [facility] Neutrophils (Bld) [#/Vol] 10.88 10*3/uL High 1.50 - 8.00 K/uL [facility] Neutrophils/100 WBC (Bld) 94.9 % High 31.0 - 76.0 % [facility] Platelet mean volume (Bld) [Entitic vol] 6.9 fL Low 7.5 - 11.2 fL [facility] Platelets (Bld) [#/Vol] 237 10*3/uL 150 - 400 K/uL [facility] RBC (Bld) [#/Vol] 4.76 10*6/uL [facility] WBC (Bld) [#/Vol] 11.5 10*3/uL 4.5 - 11.5 K/uL [facility] Basophils (Bld) [#/Vol] 0.02 10*3/uL Normal 0.00-0.20 [facility] Comment on above: Performed By: #### T S #### [facility] [address] [place] [address], Basophils/100 WBC (Bld) 0.2 % Normal <=1.9 [facility] Comment on above: Performed By: #### T S #### [facility] [address] [place] [address], Eosinophils (Bld) [#/Vol] 0.01 10*3/uL Normal 0.00-0.70 [facility] Comment on above: Performed By: #### T S #### [facility] [address] [place], [place], Eosinophils/100 WBC (Bld) 0.1 % Normal 0.1-4.0 [facility] [facility] Comment on above: Performed By: #### T S #### S PATHOLOG[facility] LABORATORY [address] [place] [address], Erythrocyte distribution width (RBC) [Ratio] 17.3 % High 11.5-14.5 [facility] Comment on above: Performed By: #### T S #### S [facility] [address], [place], Hematocrit (Bld) [Volume fraction] 34.3 % Low 41.0-53.0 [facility] Comment on above: Performed By: #### T S #### [facility] [address] [place] [address], Hemoglobin (Bld) [Mass/Vol] 11.1 g/dL Low 13.9-16.3 [facility] Comment on above: Performed By: #### T S #### [facility] [address] [place] [address], Lymphocytes (Bld) [#/Vol] 0.30 10*3/uL Low 1.00-4.80 [facility] Comment on above: Performed By: #### T S #### [facility] [address] [place] [address], Lymphocytes/100 WBC (Bld) 2.7 % Low 24.0-44.0 [facility] Comment on above: Performed By: #### T S #### [facility] [address] [place] [address], MCH (RBC) [Entitic mass] 23.2 pg Low 26.0-34.0 [facility] Comment on above: Performed By: #### T S #### S [facility] [address] [place] [address], MCHC (RBC) [Mass/Vol] 32.2 g/dL Normal 32.0-35.9 [facility] Comment on above: Performed By: #### T S #### S [facility] [address], [place], MCV (RBC) [Entitic vol] 72 fL Low 80-100 [facility] Comment on above: Performed By: #### T S #### [facility] [address] [place] [address], MONOCYTE DISTRIBUTION WIDTH 21 High <=20 [facility] Comment on above: Performed By: #### T S #### [facility] [address] [place] [address], Monocytes (Bld) [#/Vol] 0.26 10*3/uL Normal 0.20-1.00 [facility] Comment on above: Performed By: #### T S #### [facility] [address] [place] [address], Monocytes/100 WBC (Bld) 2.2 % Normal 2.0-11.0 [facility] Comment on above: Performed By: #### T S #### [facility] [address] [place] [address], Neutrophils (Bld) [#/Vol] 10.88 10*3/uL High 1.50-8.00 [facility] Comment on above: Performed By: #### T S #### [facility] [address] [place] [address], Neutrophils/100 WBC (Bld) 94.9 % High 31.0-76.0 [facility] Comment on above: Performed By: #### T S #### [facility] [address] [place] [address], Platelet mean volume (Bld) [Entitic vol] 6.9 fL Low 7.5-11.2 [facility] Comment on above: Performed By: #### T S #### [facility] [address] [place] [address], Platelets (Bld) [#/Vol] 237 10*3/uL Normal 150-400 [facility] Comment on above: Performed By: #### T S #### [facility] [address] [place] [address], RBC (Bld) [#/Vol] 4.76 10*6/uL Normal 4.50-5.90 [facility] Comment on above: Performed By: #### T S #### [facility] [address], [place], WBC (Bld) [#/Vol] 11.5 10*3/uL Normal 4.5-11.5 The [email or web address] Comment on above: Performed By: #### T S #### [facility] [address], [place], CT ABDOMEN/PELVIS W/ CONTRAS Ton 01-09-2023 CT ABDOMEN/PELVIS W/ CONTRAST EXAMINATION: CT ABDOMEN/PELVIS W/ CONTRAST 01/09/2023 06:34 PM CLINICAL HISTORY: Diverticulitis suspected; [facility]omoperitoneum at [facility] DIAGNOSIS: Diverticulitis suspected [facility]operitoneum at [facility] ORDERING PROVIDER: MADHAVI RIVAS [employer] NOTE: Hx of kidney transplant. Agreed on to administer contrast dye by both ordering dr and jose. surgeon COMPARISON: None TECHNIQUE: Contiguous axial images were obtained through the abdomen and pelvis from the level of the diaphragmatic domes through the pubic symphysis following bolus administration of intravenous contrast. MPR sagittal and coronal reconstructions were obtained from the axial data. Before infusion of intravenous contrast, radiology personnel investigated the possibility of an allergic history and of any history of reaction to iodinated contrast material. Contrast Protocol: Omnipaque 350 [>or =100lb] 100 ml [<100 lb] 1 ml per 1 lb. INTRA-PROCEDURE MEDS: iohexol (OMNIPAQUE) 350 MG/ML injection 100 mL Route: Intravenous Push FINDINGS: Included images of the lower thorax: Small right and trace left pleural effusion with adjacent atelectasis. There is right middle lobe linear density measuring approximately 2.3 x 0.8 cm (see image 41 of the sagittal reconstructions and image 13 of series 2), with several adjacent satellite nodules or tree-in-bud nodularity and a small area of atelectasis or consolidation distally. It is unclear if this represents inspissated secretions, an endobronchial lesion, focus of infection, cluster of pulmonary nodules or small neoplasm of other etiology. The heart is slightly prominent. There are coronary artery calcifications and mitral annular calcifications. Hepatobiliary: Unremarkable liver without biliary dilation. Query stones, sludge or adenomyomatosis of the gallbladder near the fundus. No adjacent inflammatory change. Pancreas: Unremarkable Spleen: Several splenic hypodensities, incompletely characterized by CT, the largest measuring 1.9 cm in diameter. Adrenal Glands: Unremarkable Kidneys, ureters, and bladder: Status post right renal transplant in the iliac fossa. Transplant kidney contains several tiny hypodensities, too small to definitively characterize but statistically likely cysts. No hydroureteronephrosis. The right koi kidney has been surgically removed. The left koi kidney is atrophic and contains a 2.1 cm cyst. There are calcifications in the left kidney. Urinary bladder appears grossly unremarkable by CT. Abdominal and pelvic vasculature: Extensive atherosclerosis. GI tract: Small duodenal diverticulum. Loops of small and large bowel are otherwise normal in caliber. The appendix is visualized and appears patent. Extensive colonic diverticula. There is focal asymmetric bowel wall thickening of the mid transverse colon with an adjacent extraluminal focal fluid collection containing an air-fluid level and measuring approximately 2.9 x 1.9 x 2.3 cm (image 95, series 2 and image 33 of the coronal reconstructions), highly suspicious for bowel perforation. This appears to track inferiorly where there is an additional pocket of air and fluid measuring approximately 6.7 x 3.1 x 3.5 cm (image 103, series 2 and image 26 of the coronal reconstructions). There is incomplete rim enhancement of these collections to suggest a well-formed abscess at this time. There is adjacent inflammatory stranding. Some stranding is also seen adjacent to the sigmoid colon (image 111, series 2), and perforated sigmoid diverticulitis is not excluded. There is a significant free air elsewhere in the abdomen and pelvis. Peritoneum and retroperitoneum: Extensive free air in the abdomen and pelvis as well as developing complex fluid collections primarily in the left mid to lower abdomen, concerning for phlegmon/developing abscesses, as discussed above. Lymph Nodes: No abdominal or pelvic lymphadenopathy. Prostate and seminal vesicles and scrotum: Slightly prominent prostate which impresses upon the posterior inferior aspect of the urinary bladder. There are calcifications in the prostate. The prostate measures 5.1 cm in greatest transverse dimension. Enlarged scrotum, measuring at least 11.3 cm in diameter, incompletely imaged, presumably related to a large hydrocele. Other: Moderate umbilical hernia containing only fat. Visualized musculoskeletal structures: Scoliosis and degenerative change in the spine. IMPRESSION: 1. Extensive free air in the abdomen and pelvis with several pockets of extraluminal fluid and air, compatible with phlegmon/developing abscesses likely related to perforation of the transverse colon. There is focal asymmetric bowel wall thickening of the mid transverse colon adjacent to one of the extraluminal collections and there are numerous diverticula throughout the colon. While perforation could be related to acute diverticulitis, a single inflamed diverticulum in the area of concern is not confidently seen. The possibility of perforation due to an underlying (more content not included)... Normal The [facility] [employer] CT Abdomen and Pelvis W cont rast IVOrdered By: Geri Wilkerson on 01-09-2023 CT DLP 2464.28 (mGycm) [employer] Work Phone: CT Series Abdomen,Abdomen,Abdo men, Abdomen,Abdomen [email or web address] Work Phone: CTDI VOL 24.2 (mGy),30.42 (mGy),22.11 (mGy) [email or web address] Work Phone: PHANTOM TYPE IEC Body Dosimetry Phantom,IEC Body Dosimetry Phantom,IEC Body Dosimetry Phantom [email or web address] Work Phone: [email or web address] Work Phone: CT Abdomen and Pelvis W cont rast Sandra 01-09-2023 EXAMINATION: CT ABDOMEN/PELVIS W/ CONTRAST 01/09/2023 06:34 PM CLINICAL HISTORY: Diverticulitis suspected; [facility]oper[facility]um at [facility] DIAGNOSIS: Diverticulitis suspected [facility]operitoneum at [facility] ORDERING PROVIDER: MADHAVI RIVAS [employer] NOTE: Hx of kidney transplant. Agreed on to administer contrast dye by both ordering dr and jose. surgeon COMPARISON: None TECHNIQUE: Contiguous axial images were obtained through the abdomen and pelvis from the level of the diaphragmatic domes through the pubic symphysis following bolus administration of intravenous contrast. MPR sagittal and coronal reconstructions were obtained from the axial data. Before infusion of intravenous contrast, radiology personnel investigated the possibility of an allergic history and of any history of reaction to iodinated contrast material. Contrast Protocol: Omnipaque 350 [>or =100lb] 100 ml [<100 lb] 1 ml per 1 lb. INTRA-PROCEDURE MEDS: iohexol (OMNIPAQUE) 350 MG/ML injection 100 mL Route: Intravenous Push FINDINGS: Included images of the lower thorax: Small right and trace left pleural effusion with adjacent atelectasis. There is right middle lobe linear density measuring approximately 2.3 x 0.8 cm (see image 41 of the sagittal reconstructions and image 13 of series 2), with several adjacent satellite nodules or tree-in-bud nodularity and a small area of atelectasis or consolidation distally. It is unclear if this represents inspissated secretions, an endobronchial lesion, focus of infection, cluster of pulmonary nodules or small neoplasm of other etiology. The heart is slightly prominent. There are coronary artery calcifications and mitral annular calcifications. Hepatobiliary: Unremarkable liver without biliary dilation. Query stones, sludge or adenomyomatosis of the gallbladder near the fundus. No adjacent inflammatory change. Pancreas: Unremarkable Spleen: Several splenic hypodensities, incompletely characterized by CT, the largest measuring 1.9 cm in diameter. Adrenal Glands: Unremarkable Kidneys, ureters, and bladder: Status post right renal transplant in the iliac fossa. Transplant kidney contains several tiny hypodensities, too small to definitively characterize but statistically likely cysts. No hydroureteronephrosis. The right koi kidney has been surgically removed. The left koi kidney is atrophic and contains a 2.1 cm cyst. There are calcifications in the left kidney. Urinary bladder appears grossly unremarkable by CT. Abdominal and pelvic vasculature: Extensive atherosclerosis. GI tract: Small duodenal diverticulum. Loops of small and large bowel are otherwise normal in caliber. The appendix is visualized and appears patent. Extensive colonic diverticula. There is focal asymmetric bowel wall thickening of the mid transverse colon with an adjacent extraluminal focal fluid collection containing an air-fluid level and measuring approximately 2.9 x 1.9 x 2.3 cm (image 95, series 2 and image 33 of the coronal reconstructions), highly suspicious for bowel perforation. This appears to track inferiorly where there is an additional pocket of air and fluid measuring approximately 6.7 x 3.1 x 3.5 cm (image 103, series 2 and image 26 of the coronal reconstructions). There is incomplete rim enhancement of these collections to suggest a well-formed abscess at this time. There is adjacent inflammatory stranding. Some stranding is also seen adjacent to the sigmoid colon (image 111, series 2), and perforated sigmoid diverticulitis is not excluded. There is a significant free air elsewhere in the abdomen and pelvis. Peritoneum and retroperitoneum: Extensive free air in the abdomen and pelvis as well as developing complex fluid collections primarily in the left mid to lower abdomen, concerning for phlegmon/developing abscesses, as discussed above. Lymph Nodes: No abdominal or pelvic lymphadenopathy. Prostate and seminal vesicles and scrotum: Slightly prominent prostate which impresses upon the posterior inferior aspect of the urinary bladder. There are calcifications in the prostate. The prostate measures 5.1 cm in greatest transverse dimension. Enlarged scrotum, measuring at least 11.3 cm in diameter, incompletely imaged, presumably related to a large hydrocele. Other: Moderate umbilical hernia containing only fat. Visualized musculoskeletal structures: Scoliosis and degenerative change in the spine. IMPRESSION: 1. Extensive free air in the abdomen and pelvis with several pockets of extraluminal fluid and air, compatible with phlegmon/developing abscesses likely related to perforation of the transverse colon. There is focal asymmetric bowel wall thickening of the mid transverse colon adjacent to one of the extraluminal collections and there are numerous diverticula throughout the colon. While perforation could be related to acute diverticulitis, a single inflamed diverticulum in the area of concern is not confidently seen. The possibili (more content not included)... RADIOLOGY Geri Wilkerson M D - 01/09/2023 EXAMINATION: CT ABDOMEN/PELVIS W/ CONTRAST 01/09/2023 06:34 PM CLINICAL HISTORY: Diverticulitis suspected; [facility]omoper[facility]um at [facility] DIAGNOSIS: Diverticulitis suspected [facility]oper[facility]um at [facility] ORDERING PROVIDER: MADHAVI RIVAS TE[employer]ISTS NOTE: Hx of kidney transplant. Agreed on to administer contrast dye by both ordering dr and jose. surgeon COMPARISON: None TECHNIQUE: Contiguous axial images were obtained through the abdomen and pelvis from the level of the diaphragmatic domes through the pubic symphysis following bolus administration of intravenous contrast. MPR sagittal and coronal reconstructions were obtained from the axial data. Before infusion of intravenous contrast, radiology personnel investigated the possibility of an allergic history and of any history of reaction to iodinated contrast material. Contrast Protocol: Omnipaque 350 [>or =100lb] 100 ml [<100 lb] 1 ml per 1 lb. INTRA-PROCEDURE MEDS: iohexol (OMNIPAQUE) 350 MG/ML injection 100 mL Route: Intravenous Push FINDINGS: Included images of the lower thorax: Small right and trace left pleural effusion with adjacent atelectasis. There is right middle lobe linear density measuring approximately 2.3 x 0.8 cm (see image 41 of the sagittal reconstructions and image 13 of series 2), with several adjacent satellite nodules or tree-in-bud nodularity and a small area of atelectasis or consolidation distally. It is unclear if this represents inspissated secretions, an endobronchial lesion, focus of infection, cluster of pulmonary nodules or small neoplasm of other etiology. The heart is slightly prominent. There are coronary artery calcifications and mitral annular calcifications. Hepatobiliary: Unremarkable liver without biliary dilation. Query stones, sludge or adenomyomatosis of the gallbladder near the fundus. No adjacent inflammatory change. Pancreas: Unremarkable Spleen: Several splenic hypodensities, incompletely characterized by CT, the largest measuring 1.9 cm in diameter. Adrenal Glands: Unremarkable Kidneys, ureters, and bladder: Status post right renal transplant in the iliac fossa. Transplant kidney contains several tiny hypodensities, too small to definitively characterize but statistically likely cysts. No hydroureteronephrosis. The right koi kidney has been surgically removed. The left koi kidney is atrophic and contains a 2.1 cm cyst. There are calcifications in the left kidney. Urinary bladder appears grossly unremarkable by CT. Abdominal and pelvic vasculature: Extensive atherosclerosis. GI tract: Small duodenal diverticulum. Loops of small and large bowel are otherwise normal in caliber. The appendix is visualized and appears patent. Extensive colonic diverticula. There is focal asymmetric bowel wall thickening of the mid transverse colon with an adjacent extraluminal focal fluid collection containing an air-fluid level and measuring approximately 2.9 x 1.9 x 2.3 cm (image 95, series 2 and image 33 of the coronal reconstructions), highly suspicious for bowel perforation. This appears to track inferiorly where there is an additional pocket of air and fluid measuring approximately 6.7 x 3.1 x 3.5 cm (image 103, series 2 and image 26 of the coronal reconstructions). There is incomplete rim enhancement of these collections to suggest a well-formed abscess at this time. There is adjacent inflammatory stranding. Some stranding is also seen adjacent to the sigmoid colon (image 111, series 2), and perforated sigmoid diverticulitis is not excluded. There is a significant free air elsewhere in the abdomen and pelvis. Peritoneum and retroperitoneum: Extensive free air in the abdomen and pelvis as well as developing complex fluid collections primarily in the left mid to lower abdomen, concerning for phlegmon/developing abscesses, as discussed above. Lymph Nodes: No abdominal or pelvic lymphadenopathy. Prostate and seminal vesicles and scrotum: Slightly prominent prostate which impresses upon the posterior inferior aspect of the urinary bladder. There are calcifications in the prostate. The prostate measures 5.1 cm in greatest transverse dimension. Enlarged scrotum, measuring at least 11.3 cm in diameter, incompletely imaged, presumably related to a large hydrocele. Other: Moderate umbilical hernia containing only fat. Visualized musculoskeletal structures: Scoliosis and degenerative change in the spine. IMPRESSION: 1. Extensive free air in the abdomen and pelvis with several pockets of extraluminal fluid and air, compatible with phlegmon/developing abscesses likely related to perforation of the transverse colon. There is focal asymmetric bowel wall thickening of the mid transverse colon adjacent to one of the extraluminal collections and there are numerous diverticula throughout the colon. While perforation could be related to acute diverticulitis, a single inflam (more content not included)... [facility] Radiology Study observation (narrative) [facility] CT abdomen pelvis wo conon 1 CT abdomen pelvis wo con [facility] [place] [address] [place] [address] CT Scan Report Signed Patient: Jagruti Esparza MR#: [id number] 08 : 1955 Acct:[id number] Age/Sex: 67 / M ADM Date: 01/09/23 Loc: ER Room: Type: [facility] ER Attending Dr: Copies to: DO Eduard Boyd DO, RES Ordering Provider: Eduard Martinez DO, RES Date of Service: 01/09/23 CT/CT abdomen pelvis wo con: abdominal pain, hx of diverticulitis CT Abdomen and Pelvis withoutcontrast TECHNIQUE: Axial imaging with 2-D reconstruction. . The CT exam was performed using one or more the following dose reduction techniques: Automated exposure control, adjustment of the MA and/or Kv according to patient size, or use of the iterative reconstruction technique. COMPARISON: 02/01/2019 History: Abdominal pain for 4 days. Fever. Weakness. LIMITATIONS: None LOWER THORAX tiny layering pleural effusions greater on the right. Adjacent compressive atelectasis. Trace pericardial effusion. LIVER: Unremarkable GALLBLADDER: No gallbladder abnormality identified. BILE DUCTS: No dilatation SPLEEN: Unremarkable PANCREAS: Unremarkable ADRENAL GLANDS: Unremarkable KIDNEYS:Atrophic koi kidneys. Punctate calcification of the transplanted right pelvic kidney. No hydronephrosis. AORTA: No abdominal aortic aneurysm identified. RETROPERITONEUM: No significant retroperitoneal abnormalities identified. MESENTERY:Unremarkable SMALL BOWEL: The small bowel loops are nondistended. APPENDIX: The appendix is normal. COLON: Extensive peridiverticular inflammatory changes in the sigmoid colon. Extensive diverticulosis throughout the colon. There does not developing regions of small air fluid collections near the proximal sigmoid colon. Largest approaches 4 cm. URINARY BLADDER: Urinary bladder is unremarkable. REPRODUCTIVE SYSTEM: Reproductive structures are unremarkable. PNEUMOPERITONEUM: Foci of free air throughout the abdomen. PERITONEAL FLUID:None BONY STRUCTURES: Extensive degeneration. Straightening of lumbar spine. Mild degenerative listhesis. No acute bony findings. ABDOMINAL WALL: There is redemonstration of umbilical hernia which contains fluid and air. CT/CT abdomen pelvis wo con IMPRESSION: Pneumoperitoneum. Extensive peridiverticular inflammation involving the proximal sigmoid colon. This likely corresponds with acute diverticulitis and the site of a perforation. Small bilateral pleural effusions greater on the right. Preliminary 11:51 AM 01/01/2023. Impression dictated by: Tano Murray M.D.01/09/2023 11:57 AM Dictation Location: [place] [address] Transcribed By: [facility] 01/09/23 1157 Dictated By: Tano Murray DO 01/09/23 1144 Signed By: 01/09/23 1157 Normal [facility] Calcium [Mass/volume] in Ser um or PlasmaOrdered By: Matthew Marin on 01-09-2023 Calcium [Mass/Vol] 9.6 mg/dL 8.6-10.3 [facility] Carbon dioxide, total [Moles /volume] in Serum or PlasmaOrdered By: Matthew Marin on 01-09-2023 CO2 [Moles/Vol] 23.0 mmol/L 21.0-31.[address] [facility] Chloride [Moles/volume] in S annita or PlasmaOrdered By: Matthew Marin on 01-09-2023 Chloride [Moles/Vol] 81 mmol/L 98-107 [facility] Color Auto (U)Ordered By: Rodney Marin on 01-09-2023 Color (U) Yellow Yellow [facility] Complete Blood Count Auto Di ffon 01-09-2023 Basophils (Bld) [#/Vol] 0.0 10*3/uL Normal 0.0-0.2 [facility] Comment on above: Result Comment: PERF ORMED BY: [place] [address] PATHOLOGIST [employer] SAMANTHA ROTH M.D. Performed By: #### B MP, CBC #### [address] Basophils/100 WBC (Bld) 0.4 % Normal . [facility] Comment on above: Performed By: #### B MP, CBC #### [address] Eosinophils (Bld) [#/Vol] 0.0 10*3/uL Normal 0.0-0.45 [facility] Comment on above: Performed By: #### B MP, CBC #### [address] Eosinophils/100 WBC (Bld) 0.1 % Normal . [facility] Comment on above: Performed By: #### B MP, CBC #### [address] Erythrocyte distribution width (RBC) [Ratio] 17.4 % High 12.0-14.8 [facility] Comment on above: Performed By: #### B MP, CBC #### [address] Hematocrit (Bld) [Volume fraction] 31.1 % Low 38.8-50.0 [facility] Comment on above: Performed By: #### B MP, CBC #### [address] Hemoglobin (Bld) [Mass/Vol] 9.9 g/dL Low 13.0-17.0 [facility] Comment on above: Performed By: #### B MP, CBC #### [facility] [address] Lymphocytes (Bld) [#/Vol] 0.4 10*3/uL Low 1.00-4.8 [facility] [place] [facility] Comment on above: Performed By: #### B MP, CBC #### [facility] [address] Lymphocytes/100 WBC (Bld) 3.2 % Normal . [facility] [place] [facility] Comment on above: Performed By: #### B MP, CBC #### [facility] [address] MCH (RBC) [Entitic mass] 22.8 pg Low 27.5-35.2 [facility] [place] [facility] Comment on above: Performed By: #### B MP, CBC #### [facility] [address] MCV (RBC) [Entitic vol] 71.7 fL Low 83.5-101 [facility] [place] [facility] Comment on above: Performed By: #### B MP, CBC #### [facility] [address] Mean Corpuscular HGB Conc 31.7 g/dL Low 32.5-35.6 [facility] [place] [facility] Comment on above: Performed By: #### B MP, CBC #### [facility] [address] [place] [address] [place] Monocytes (Bld) [#/Vol] 0.7 10*3/uL Normal 0.0-0.8 [facility] [place] [facility] Comment on above: Performed By: #### B MP, CBC #### [facility] [address] [place] [address] [place] Monocytes/100 WBC (Bld) 17.44 % Normal 0.00-20.00 [facility] [place] [facility] Comment on above: Performed By: #### B MP, CBC #### [facility] [address] [place] [address] [place] Monocytes/100 WBC (Bld) 5.6 % Normal . [facility] [place] [facility] Comment on above: Performed By: #### B MP, CBC #### [facility] [address] [place] [address] [place] Neutrophils (Bld) [#/Vol] 11.6 10*3/uL High 1.8-7.7 [facility] [place] [facility] Comment on above: Performed By: #### B MP, CBC #### [facility] [address] [place] [id number] [place] Neutrophils/100 WBC (Bld) 90.7 % Normal . [facility] [place] [facility] Comment on above: Performed By: #### B MP, CBC #### [facility] [address] [place] [address] [place] NRBC% 0.0 /100{WBC} Normal 0-0.5 [facility] [place] [facility] Comment on above: Performed By: #### B MP, CBC #### [facility] [address] Platelet mean volume (Bld) [Entitic vol] 6.7 fL Normal 6.6-10.1 [facility] [place] [facility] Comment on above: Performed By: #### B MP, CBC #### [facility] [address] [place] [id number] [place] Platelets (Bld) [#/Vol] 231 10*3/uL Normal 150-450 [facility] [place] [facility] Comment on above: Performed By: #### B MP, CBC #### [facility] [address] [place] [id number] [place] RBC (Bld) [#/Vol] 4.33 10*6/uL Normal 3.90-5.60 [facility] Comment on above: Performed By: #### B MP, CBC #### [facility] [address] [place] [id number] [place] WBC (Bld) [#/Vol] 12.8 10*3/uL High 4.1-10.5 [facility] Comment on above: Performed By: #### B MP, CBC #### [facility] [address] [place] [id number] [place] Creatinine [Mass/volume] in Serum or PlasmaOrdered By: Matthew Marin on 01-09-2023 Creatinine [Mass/Vol] 0.74 mg/dL 0.70-1.30 [facility] Dipstick and Microscopicon 1 Appearance (U) Clear Normal Clear [facility] [place] [facility] Comment on above: Order Comment: Name Collection Type:: Clean-Voided Midstream Performed By: #### B MP, CBC #### [facility] [address] [place] [address] [place] Bacteria,Urine None Seen Normal None Seen [facility] [place] [facility] Comment on above: Order Comment: Name Collection Type:: Clean-Voided Midstream Performed By: #### B MP, CBC #### [facility] [address] [place] [address] [place] Bilirubin,Urine Negative Normal Negative [facility] [place] [facility] Comment on above: Order Comment: Name Collection Type:: Clean-Voided Midstream Performed By: #### B MP, CBC #### [facility] [address] [place] [address] [place] Color (U) Yellow Normal Yellow [facility] [place] [facility] Comment on above: Order Comment: Name Collection Type:: Clean-Voided Midstream Performed By: #### B MP, CBC #### [facility] [address] [place] [address] [place] Glucose Ql (U) Normal Normal Normal [facility] [place] [facility] Comment on above: Order Comment: Name Collection Type:: Clean-Voided Midstream Performed By: #### B MP, CBC #### [facility] [address] [place] [address] [place] Hyaline Casts,Urine None Seen Normal 0-8 [facility] Comment on above: Order Comment: Name Collection Type:: Clean-Voided Midstream Result Comment: PERF ORMED BY: [place] [address] PATHOLOGIST [employer] MAN SAMANTHA ROTH M.D. Performed By: #### B MP, CBC #### [facility] [address] [place] [address] [place] Ketones Ql (U) 2+ High Negative [facility] [place] [facility] Comment on above: Order Comment: Name Collection Type:: Clean-Voided Midstream Performed By: #### B MP, CBC #### [facility] [address] Leukocyte esterase Test strip Ql (U) Negative Normal Negative [facility] [place] [facility] Comment on above: Order Comment: Name Collection Type:: Clean-Voided Midstream Performed By: #### B MP, CBC #### [facility] [address] [place] [address] [place] Nitrite,Urine Negative Normal Negative [facility] [place] [facility] Comment on above: Order Comment: Name Collection Type:: Clean-Voided Midstream Performed By: #### B MP, CBC #### [address] Occult Blood,Urine Negative Normal Negative [facility] Comment on above: Order Comment: Name Collection Type:: Clean-Voided Midstream Result Comment: PERF ORMED BY: [place] [address] PATHOLOGIST [employer] SAMANTHA RTOH M.D. Performed By: #### B MP, CBC #### [address] pH (U) 6.0 [pH] Normal 5.0-9.0 [facility] [place] [facility] Comment on above: Order Comment: Name Collection Type:: Clean-Voided Midstream Performed By: #### B MP, CBC #### [facility] [address] [place] [address] Protein,Urine Trace High Negative [facility] [place] [facility] Comment on above: Order Comment: Name Collection Type:: Clean-Voided Midstream Performed By: #### B MP, CBC #### [place] [address] [place] RBC,Urine 3-4 Normal 0-4 [facility] [place] [facility] Comment on above: Order Comment: Name Collection Type:: Clean-Voided Midstream Performed By: #### B MP, CBC #### [facility] [address] [place] [address] [place] Specificy [place],Urine 1.019 Normal 1.001-1.030 [facility] [place] [facility] Comment on above: Order Comment: Name Collection Type:: Clean-Voided Midstream Performed By: #### B MP, CBC #### [facility] [address] Squamous Epithelial Cell,Urine None Seen Normal 0-2 [facility] [place] [facility] Comment on above: Order Comment: Name Collection Type:: Clean-Voided Midstream Performed By: #### B MP, CBC #### [facility] [address] Urobilinogen,Urine Normal Normal Normal [facility] Comment on above: Order Comment: Name Collection Type:: Clean-Voided Midstream Performed By: #### B MP, CBC #### [facility] [address] WBC LM.HPF (Urine sed) [#/Area] 0 /[HPF] Normal 0-4 [facility] [place] [facility] Comment on above: Order Comment: Name Collection Type:: Clean-Voided Midstream Performed By: #### B MP, CBC #### [facility] [address] ECG 12 lead ECGon 01-09-2023 [address] [facility] [address] Electrocardiograph Report Signed Patient: Jagruti Esparza MR#: [id number] 08 : 1955 Acct:[id number] Age/Sex: 67 / M ADM Date: 01/09/23 Loc: ER Room: Type: [facility] ER Attending Dr: Ordering Provider: Matthew Marin DO Date of Service: 01/09/23 ECG/ECG 12 lead ECG: Abdominal Pain Copies to: Test Reason : Blood Pressure : 170/074 mmHG Vent. Rate : 085 BPM Atrial Rate : 085 BPM P-R Int : 206 ms QRS Dur : 112 ms QT Int : 398 ms P-R-T Axes : 057 -20 076 degrees QTc Int : 473 ms Normal sinus rhythm Septal infarct , age undetermined Abnormal ECG When compared with ECG of 21-DEC-2020 10:56, premature ventricular complexes are no longer present Septal infarct is now present Nonspecific T wave abnormality no longer evident in Inferior leads Confirmed by MATTHEW MARIN DO ([id number]) on 01/09/2023 3:53:51 PM Referred By: Electronically Signed By:MATTHEW MARIN DO Transcribed By: MUS Signed By Matthew Marin DO 01/09 1554 Normal [facility] [place] [facility] ED Noteson 01-09-2023 Lathe Setup Operator Authentication Interface Message Text notified of critical SODIUM value of 118. Hard copy of results given to Normal [facility] Lathe Setup Operator Authentication Interface Message Text Dr. RIVERO notified of critical SODIUM value of 113. Hard copy of results given to Dr. RIVERO Normal [facility] ED Provider Noteson 01-10-20 Lathe Setup Operator Authentication Interface Message Text EGS, admit vs xfer 67 year old male AF, flecainide, remote renal xplant // went to [facility] with perforated diverticulitis // EGS recommends xfer to [facility] - they are talking to [facility] team // also has hyponatremia Above depicts sign out comments. ATTENDING NOTE I received this patient in signout. I agree with the resident's medical decision making performed after signout was received as documented in the residents note, if resident involved in case. Further comments are below as needed. I spoke with Dr. Valladares in person in the ED. He has called both [facility] and for possible transfer. Ultimately patient was accepted at . Remained stable here. Julio Brown MD Normal [facility] Lathe Setup Operator Authentication Interface Message Text SS for SP 67 year old male hx kidney transplant, presents with perfed diverticulitis. Transfer from [facility]. BMP shows hyponatremia. CT repeated here because unable to get images from [facility]. Rpt imaging shows possible transverse colon perf. On flagyl and levaquin bc penicillin allergy. EGS rec trxfer to [facility] given transplant hx, [facility] refuses as has not seen them in years. Also hyponatremia Need to discuss with EGS This patient was received in sign out. Please see initial provider documentation for full history, exam, and initial workup/interventions. ED Course as of 01/10/23 1131 Sat Jan 09, 2023 1516 BP(!): 128/105 [SP] 1516 Temperature: 97.9 ???F (36.6 ???C) [SP] 1516 Heart Rate: 88 [SP] 1516 Respiratory Rate: 18 [SP] 1516 SpO2: 100 % [SP] 1516 I have discussed the care of this patient with External Provider/ Route Sales Representative: Colorectal. The following recommendations were provided: will evaluate the patient in the ED and provide further recommendations. [SP] 1543 Complete Blood Count W/Diff(!): WBC 11.5 RBC 4.76 Hemoglobin 11.1(!) Hematocrit 34.3(!) MCV 72(!) MCH 23.2(!) MCHC 32.2 Platelet 237 RDW-CV% 17.3(!) MPV 6.9(!) Neutrophils 94.9(!) Neutrophil # 10.88(!) Lymphocytes 2.7(!) Lymph Absolute 0.30(!) Monocytes 2.2 Monocyte Absolute 0.26 Eosinophil 0.1 Eosinophil Absolute 0.01 Basophils 0.2 Basophil # 0.02 MDW 21(!) The above laboratory study was reviewed and independently interpreted. Pertinent findings include: no leukocytosis, chronic anemia, no quantitative platelet abnormalities. [SP] 1554 Basic Metabolic Panel(!!): Glucose 110 Sodium 113(!!) Potassium 5.2 Carbon Dioxide 18(!) Chloride 85(!) BUN 11 Creatinine 0.63(!) Calcium 9.2 Anion Gap 15 Estimated GFR 105 The above laboratory study was reviewed and independently interpreted. Pertinent findings include: hyponatremia, no clinically significant renal abnormalities. [SP] 1700 Spoke with technical associate on reason for delay in obtaining outside images. Was told that disc from outside facility was unreadable. Called [facility] and spoke with technical associate there, unable to push images through [employer]. [facility] abd/pelvis order placed by surgery team shortly thereafter. [SP] 1728 Urinalysis W/Reflex Culture(!): Color Colorless Appearance Clear pH 6.5 Spec [place] 1.006 Protein Negative Blood Negative Bilirubin Negative Urobilinogen Negative Ketones 20(!) Leuk. Esterase Negative Nitrite Negative Glucose Negative The above laboratory study was reviewed and independently interpreted. Pertinent findings include: negative for UTI. [SP] 1849 Call to ACS at this time for further recommendations [SP] 2105 Personally discussed currently available facts and concerns about the case with DENISE, who advises [facility] said the pt was refused transfer to them earlier this afternoon because they felt the pt should have been treated emergently at [facility]. The [facility] would not agree to start a transfer request because of that. Also they said the pt hasn't been seen by them in 10 years. [SS] 2207 Personally discussed currently available facts and concerns about the case with DENISE and surgery, who advises From surgery standpoint, the reason recommended [facility] (or another transplant center) is because of his prior history of multiple transplants and the need to monitor and adjust his anti-rejection meds during his acute illness, regardless of whether he is managed operatively. [facility] does not have a transplant nephrology service here, and that's the subspecialization he will really need for the best outcome [SS] 221 Personally discussed currently available facts and concerns about the case with pharmacy, who advises reviewed prior meds and allergies, meropenem would be appropriate coverage based on allergies [SS] Ira Jan 10, 2023 0004 Personally discussed currently available facts and concerns about the case with DENISE and surgery, who advises [facility] said they are still tracking down the surgical team. Dr Valladares recs to put in a request at as well [SS] 0057 Personally discussed currently available facts and concerns about the case with Dr Barrera and [facility] transfer center, who advises pt was declined as a transfer earlier today [SS] 0058 Personally discussed currently available facts and concerns about the case with DENISE, who advises Dr Valladares just conferenced with . He was accepted by Dr Vasquez but he prefers not to do ED to ED. They will look at beds and call us back, if no beds, then they will consider ED to ED. [SS] 0127 Personally discussed currently available facts and concerns about the case with DENISE, who advises pt has bed assignment and [place] [address], Room 5003-A [SS] ED Course User Index [SP] Glenn Ram MD [SS] Sarthak Rosen MD Clinical Impression Diagnosis Comment Diverticulitis [K57.92] Perforated viscus [R19.8] History of kidney transplant [ (more content not included)... Normal [email or web address] Lathe Setup Operator Authentication Interface Message Text -------- Attestation signed by Maxwell Rivero DO at 01/10/2023 10:20 AM ATTENDING NOTE I saw and evaluated the patient. I personally obtained the florez and critical portions of the history and physical exam. I reviewed the resident's documentation and discussed the patient with the resident. I agree with the resident's medical decision making as documented in the resident's note. Maxwell Rivero DO -------- EMERGENCY DEPARTMENT - VISIT NOTE ------ HISTORY OF PRESENT ILLNESS -- Chief Complaint Patient presents with Consult with specialist Surgical consult Aircraft Maintenance Director: not needed - patient preferred language is Mexican. The history is provided by the Patient. Jagruti Esparza is a 67 year old male with PMH kidney transplant, atrial fibrillation, diverticulitis presenting to the ED for abdominal pain. Patient endorses several days of left lower quadrant abdominal pain, which acutely worsened this morning which brought him to the outside emergency department. He has had decreased appetite for the last several days, last had p.o. intake 2 days ago. He has had similar pain in the past associated with prior diverticulitis. He endorses subjective fevers at home, however has not had any documented fevers. He denies any recent antibiotic use. He denies any active chest pain, shortness of breath at this time. He has been compliant with his home medications including his antirejection medications. He endorses mild dysuria recently. Chart review: ED visit from [facility] today reviewed, patient noted to be on diltiazem 180 mg daily, CellCept, Prograf. Patient received metronidazole and levofloxacin prior to arrival. CT abdomen/pelvis demonstrating pneumoperitoneum. Extensive peridiverticular inflammation involving the proximal sigmoid colon. This likely corresponds with acute diverticulitis and the site of a perforation. Small bilateral pleural effusion greater on the right. REVIEW OF SYSTEMS Review of Systems Constitutional: Negative for fatigue and fever. Respiratory: Negative for cough and shortness of breath. Cardiovascular: Negative for chest pain. Gastrointestinal: Positive for abdominal pain. Negative for constipation, diarrhea, nausea and vomiting. Genitourinary: Positive for dysuria and hematuria. Skin: Negative for rash and wound. Neurological: Negative for dizziness, weakness, light-headedness, numbness and headaches. PAST HISTORY Pertinent Past History: No past medical history on file. Pertinent Family History: No family history on file. Pertinent Social History: PHYSICAL EXAM BP 148/57 Pulse 73 Temp 97.9 ???F (36.6 ???C) (Oral) Resp 14 SpO2 98% Physical Exam Constitutional: General: He is not in acute distress. Appearance: He is not ill-appearing, toxic-appearing or diaphoretic. HENT: Head: Normocephalic and atraumatic. Nose: Nose normal. Mouth/Throat: Mouth: Mucous membranes are moist. Pharynx: No oropharyngeal exudate or posterior oropharyngeal erythema. Eyes: Extraocular Movements: Extraocular movements intact. Pupils: Pupils are equal, round, and reactive to light. Cardiovascular: Rate and Rhythm: Normal rate and regular rhythm. Pulses: Normal pulses. Heart sounds: No murmur heard. No friction rub. No gallop. Pulmonary: Effort: Pulmonary effort is normal. No respiratory distress. Breath sounds: No wheezing, rhonchi or rales. Abdominal: General: There is no distension. Palpations: Abdomen is soft. Tenderness: There is abdominal tenderness (LLQ). There is no guarding or rebound. Musculoskeletal: General: Normal range of motion. Right lower leg: Edema present. Left lower leg: Edema present. Skin: General: Skin is warm and dry. Capillary Refill: Capillary refill takes less than 2 seconds. Findings: No rash. Neurological: Mental Status: He is alert and oriented to person, place, and time. Sensory: No sensory deficit. Motor: No weakness. Psychiatric: Mood and Affect: Mood normal. Behavior: Behavior normal. MEDICAL DECISION MAKING and ED COURSE Review of External (Non- ED) Notes: [facility] ED notes from [facility] reviewed and show see HPI. Discussion with External Provider: Route Sales Representative from EGS service recommends transfer to [facility]. Discussed with transfer center, they state that patient was refused from [facility] at earlier consult from [facility] due to long time since prior care; [facility] refusing to conference for discussion of transfer. Inde (more content not included)... Normal [facility] Eosinophils Auto (Bld) [#/Vo l]Ordered By: Matthew Marin on 01-09-2023 Eosinophils (Bld) [#/Vol] 0.0 10*3/uL 0.0-0.45 [facility] [place] [facility] Eosinophils/100 WBC Auto (Bl d)Ordered By: Matthew Marin on 01-09-2023 Eosinophils/100 WBC (Bld) 0.1 % . [facility] [place] [facility] Erythrocyte distribution wid th Auto (RBC) [Ratio]Ordered By: Matthew Marin on 01-09-2023 Erythrocyte distribution width (RBC) [Ratio] 17.4 % 12.0-14.8 [facility] [place] [facility] FK 506 (PROGRAF)on 3 FK506 20.2 mcg/L High [facility] Comment on above: Order Comment: Vera genaro Agency Address Site ID: [id number] Name: [facility] Address: [address], [address] [place] [address] Director: Kostas Rodriguez MD Result Comment: No d efinitive therapeutic or toxic ranges have been established. Optimal blood drug levels are influenced by type of transplant, patient response, time post- transplant, co-administration of other drugs, and drug formulation. The following trough range is a suggested guideline: 5.0-20.0 mcg/L. This test was developed and its analytical performance characteristics have been determined by [employer]. It has not been cleared or approved by the FDA. This assay has been validated pursuant to the CLIA regulations and is used for clinical purposes. Performed By: #### F K 506 #### [facility] [address] [facility] [place], [place] [address] Globulin Calc (S) [Mass/Vol] Ordered By: Matthew Marin on 01-09-2023 Globulin (S) [Mass/Vol] 2.8 g/dL [facility] [place] [facility] Glucose [Mass/volume] in Ser um or PlasmaOrdered By: Matthew Marin on 01-09-2023 Glucose [Mass/Vol] 106 mg/dL 70-100 [facility] Comment on above: ADA recommended refe rence rangeRandom Glucose Reference Range is dependent on time and content of last meal. Glucose of more than 200 mg/dL in a nonstressed, ambulatory subject supports the diagnosis of Diabetes Mellitus. Hematocrit Auto (Bld) [Volum e fraction]Ordered By: Matthew Marin on 01-09-2023 Hematocrit (Bld) [Volume fraction] 31.1 % 38.8-50.0 [facility] [place] [facility] Hemoglobin [Mass/volume] in BloodOrdered By: Matthew Marin on 01-09-2023 Hemoglobin (Bld) [Mass/Vol] 9.9 g/dL 13.0-17.0 [facility] [place] [facility] Hepatic Panelon 01-09-2023 Albumin [Mass/Vol] 3.2 g/dL Low 3.5-5.7 [facility] Comment on above: Performed By: #### B MP CBC #### [facility] [address] [place] [address] Albumin/Globulin [Mass ratio] 1.1 {ratio} Normal [facility] [place] [facility] Comment on above: Performed By: #### B MP, CBC #### [address] ALP [Catalytic activity/Vol] 60 U/L Normal 34-104 [facility] [place] [facility] Comment on above: Performed By: #### B MP, CBC #### [address] ALT [Catalytic activity/Vol] 7 U/L Normal 7-52 [facility] [place] [facility] Comment on above: Performed By: #### B MP, CBC #### [address] AST [Catalytic activity/Vol] 12 U/L Low 13-39 [facility] [place] [facility] Comment on above: Performed By: #### B MP, CBC #### [address] Bilirubin [Mass/Vol] 1.1 mg/dL High 0.3-1.0 [facility] Comment on above: Performed By: #### B MP, CBC #### [address] Bilirubin,Indirect 0.8 mg/dL Normal [facility] Comment on above: Performed By: #### B MP, CBC #### [facility] [address] [place] [address] Bilirubin.indirect [Mass/Vol] 0.30 mg/dL High 0.03-0.18 [facility] [place] [facility] Comment on above: Performed By: #### B MP, CBC #### [facility] [address] [place] [address] Globulin (S) [Mass/Vol] 2.8 g/dL Normal [facility] [place] [facility] Comment on above: Performed By: #### B MP, CBC #### [address] Protein [Mass/Vol] 6.0 g/dL Low 6.4-8.9 [facility] Comment on above: Performed By: #### B MP, CBC #### [facility] [address] INR in Platelet poor plasma by Coagulation assayOrdered By: Matthew Marin on 01-09-2023 INR Coag (PPP) [Relative time] 1.1 {INR} [facility] [place] [facility] Comment on above: INR Therapeutic Rang e A) Pre- and Peroperative OAT started two weeks before surgery. NOT HIP SURGERY: 1.5 - 2.5 HIP SURGERY: 2 - 3B) Primary and secondary prevention of venous THROMBOSIS: 2 - 3C) Active venous thrombosis, pulmonary embolismand prevention of recurrent venous thrombosis: 2 - 3D) Prevention of arterial thromboembolismincluding patients with mechanical heart valves: 3 - 4.5 Ketones Auto test strip (U) [Mass/Vol]Ordered By: Matthew Marin on 01-09-2023 Ketones (U) [Mass/Vol] 2+ Negative [facility] - Blood bankon ABO and Rh group Nom (Bld) Blood group A Rh(D) positive [facility] - UrinalysisOrder ed By: Matthew Marin on 01-09-2023 Hyaline casts LM Ql (Urine sed) None seen [LPF] 0-8 [facility] [place] [facility] Lactate [Moles/volume] in Se rum or PlasmaOrdered By: Matthew Marin on 01-09-2023 Lactate [Moles/Vol] 1.8 mmol/L 0.5-2.2 [facility] Lactic Acidon 01-09-2023 Lactate [Moles/Vol] 1.8 mmol/L Normal 0.5-2.2 [facility] Comment on above: Result Comment: PERF ORMED BY: [facility] [address] [facility] [place] [address] PATHOLOGIST [employer] B[employer] MAN SAMANTHA ROTH M.D. Performed By: #### B MP, CBC #### [facility] [address] Leukocytes [#/volume] correc feroz for nucleated erythrocytes in Blood by Automated counOrdered By: Matthew Marin on 01-09-2023 WBC corrected for nucl RBC Auto (Bld) [#/Vol] 12.8 10*3/uL 4.1-10.5 [facility] [place] [facility] Lipaseon 01-09-2023 Lipase [Catalytic activity/Vol] 12.0 U/L Normal 11.0-82.0 [facility] [place] [facility] Comment on above: Result Comment: PERF ORMED BY: [place] [address] PATHOLOGIST [employer] SAMANTHA ROTH M.D. Performed By: #### B MP, CBC #### [facility] [address] Lipase [Enzymatic activity/v olume] in Serum or PlasmaOrdered By: Matthew Marin on 01-09-2023 Lipase [Catalytic activity/Vol] 12.0 U/L 11.0-82.0 [facility] [place] [facility] Lymphocytes Auto (Bld) [#/Vo l]Ordered By: Matthew Marin on 01-09-2023 Lymphocytes (Bld) [#/Vol] 0.4 10*3/uL 1.00-4.8 [facility] Lymphocytes/100 WBC Auto (Bl d)Ordered By: Matthew Marin on 01-09-2023 Lymphocytes/100 WBC (Bld) 3.2 % . [facility] MCH Auto (RBC) [Entitic mass ]Ordered By: Matthew Marin on 01-09-2023 MCH (RBC) [Entitic mass] 22.8 pg 27.5-35.2 [facility] MCHC Auto (RBC) [Mass/Vol]Or dered By: Matthew Marin on 01-09-2023 MCHC (RBC) [Mass/Vol] 31.7 g/dL 32.5-35.6 [facility] MCV Auto (RBC) [Entitic vol] Ordered By: Matthew Marin on 01-09-2023 MCV (RBC) [Entitic vol] 71.7 fL 83.5-101 [facility] MYCOPHENOLIC ACIDon 01-10-20 23 MYCOPHENOLATE GLUCURONIDE 68.7 mcg/mL Normal 35.0-100.0 [email or web address] Comment on above: Order Comment: Vera lam Agency Address Site ID: AMD Name: [employer] Address: [address] [place] [address] [place], [place] Director: Ruth Ann Biswas M.D.,PhD Result Comment: This test was developed and its analytical performance characteristics have been determined by [employer] [place], [place]. It has not been cleared or approved by the U.S. Food and Drug Administration. This assay has been validated pursuant to the CLIA regulations and is used for clinical purposes. Performed By: #### M YC #### [facility] [address] [place], [place] MYCOPHENOLIC ACID 0.8 mcg/mL Low 1.0-3.5 [facility] Comment on above: Order Comment: Vera lam Agency Address Site ID: AMD Name: [employer] Address: [address] [place] [address] [place], [place] Director: Ruth Ann Biswas M.D.,PhD Performed By: #### M YC #### [facility] Pathology [address] [facility] [place], [place] Monocyte distribution width [Entitic volume] in Blood by AutomatedOrdered By: Matthew Marin on 01-09-2023 Monocyte distribution width Auto (Bld) [Entitic vol] 17.44 % 0.00-20.00 [facility] Monocytes Auto (Bld) [#/Vol] Ordered By: Matthew Marin on 01-09-2023 Monocytes (Bld) [#/Vol] 0.7 10*3/uL 0.0-0.8 [facility] Monocytes/100 WBC Auto (Bld) Ordered By: Matthew Marin on 01-09-2023 Monocytes/100 WBC (Bld) 5.6 % . [facility] Neutrophils Auto (Bld) [#/Vo l]Ordered By: Matthew Marin on 01-09-2023 Neutrophils (Bld) [#/Vol] 11.6 10*3/uL 1.8-7.7 [facility] Neutrophils/100 WBC Auto (Bl d)Ordered By: Matthew Marin on 01-09-2023 Neutrophils/100 WBC (Bld) 90.7 % . [facility] Nitrite Test strip Ql (U)Ord ered By: Matthew Marin on 01-09-2023 Nitrite Ql (U) Negative Negative [facility] No Panel Informationon 01-09 [facility] No Panel InformationOrdered By: Matthew Marin on 01-09-2023 Estimated GFR (CKD-EPI) > 60.0 mL/Min [facility] Creatinine Clearance (Chem 100.42 [facility] Nucleated erythrocytes [Pres ence] in Blood by Automated countOrdered By: Matthew aMrin on 01-09-2023 Nucleated RBC Auto Ql (Bld) 0.0 /100{WBC} 0-0.5 [facility] PARTIAL THROMBOPLASTIN TIMEo n 01-09-2023 aPTT Coag (Bld) [Time] 26 s [facility] Interpretation and review of laboratory results Normal [facility] aPTT Coag (Bld) [Time] 26 s Normal 25-37 Th e [facility] Comment on above: Performed By: #### A PTT, PT #### [facility] [address] [place] [address], PROTHROMBIN TIME AND INRon 1 INR Coag (PPP) [Relative time] 1.11 {INR} High 0.90 - 1.10 [facility] Interpretation and review of laboratory results Abnormal [facility] PT Coag (PPP) [Time] 12.4 s [facility] INR Coag (PPP) [Relative time] 1.11 {INR} High 0.90-1.10 [facility] Comment on above: Performed By: #### A PTT, PT #### [facility] [address] [place] [address], PT Coag (PPP) [Time] 12.4 s Normal 9.7-12.9 [facility] Comment on above: Performed By: #### A PTT, PT #### [facility] [address] [place] [address], Platelet mean volume Auto (B ld) [Entitic vol]Ordered By: Matthew Marin on 01-09-2023 Platelet mean volume (Bld) [Entitic vol] 6.7 fL 6.6-10.1 [facility] Platelets Auto (Bld) [#/Vol] Ordered By: Matthew Marin on 01-09-2023 Platelets (Bld) [#/Vol] 231 10*3/uL 150-450 [facility] Potassium [Moles/volume] in Serum or PlasmaOrdered By: Matthew Marin on 01-09-2023 Potassium [Moles/Vol] 5.1 mmol/L 3.5-5.1 [facility] Progress Noteson 01-09-2023 Lathe Setup Operator Authentication Interface Message Text Pharmacist Reviewed Medication History Name: Jagruti Esparza : 1955 Admission Date: 01/09/2023 2:39 PM Allergies: Cephalexin, Tobramycin, Erythromycin, Meperidine, and Penicillin g Patient manages own medications: Yes 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 flecainide (TAMBOCOR) 50 MG tablet Take 50 mg by mouth 3 times daily. magnesium oxide (MAG-OX) 400 (240 Mg) MG TABS tablet Take 400 mg by mouth daily. CellCept 250 MG capsule Take 750 mg by mouth 2 times a day. Brandname product pantoprazole (PROTONIX) 20 MG tablet Take 20 mg by mouth 2 times a day. predniSONE (DELTASONE) 5 MG tablet Take 5 mg by mouth daily. rOPINIRole (REQUIP) 1 MG tablet Take 1 mg by mouth daily. Prograf 0.5 MG capsule Take 0.5 mg by mouth 2 times daily. Brandname product Prograf 1 MG capsule Take 1 mg by mouth 2 times a day. Brandname product Dilt-XR 180 MG XR capsule Take 180 mg by mouth daily. OTC/Herbal medications: as noted above Source of History: Family, Outside Hospital Records- Name [facility], and Care Everywhere Records Additional Comments: Of note patient takes brandname Prograf AND Cellcept. Also patient takes a total of Prograf 1.5mg (1mg + 0.5mg) twice a day Sanju Gallardo RPh Normal [email or web address] Protein Auto test strip (U) [Mass/Vol]Ordered By: Matthew Marin on 01-09-2023 Protein (U) [Mass/Vol] Trace mg/dL Negative [facility] Protein [Mass/volume] in Ser um or PlasmaOrdered By: Matthew Marin on 01-09-2023 Protein [Mass/Vol] 6.0 g/dL 6.4-8.9 [facility] Prothrombin Time INRon 01-09 INR Coag (PPP) [Relative time] 1.1 {INR} Normal [facility] Comment on above: Result Comment: INR Therapeutic Range A) Pre- and Peroperative OAT started two weeks before surgery. NOT HIP SURGERY: 1.5 - 2.5 HIP SURGERY: 2 - 3 B) Primary and secondary prevention of venous THROMBOSIS: 2 - 3 C) Active venous thrombosis, pulmonary embolism and prevention of recurrent venous thrombosis: 2 - 3 D) Prevention of arterial thromboembolism including patients with mechanical heart valves: 3 - 4.5 PERFORMED BY: [place] [address] PATHOLOGIST [employer] B[employer]KE MAN SAMANTHA ORTH M.D. Performed By: #### B MP, CBC #### [facility] [address] [place] [address] PT Coag (PPP) [Time] 13.1 s High 9.0-12.9 [facility] Comment on above: Result Comment: A he matocrit value greater than 55% may lead to inaccurate results in coagulation testing. Patients having hematocrit values >55% require a special collection tube for coagulation studies. Please contact the laboratory at [phone] for redraw instructions. Performed By: #### B MP, CBC #### [facility] [address] [place] [address] Prothrombin time (PT)Ordered By: Matthew Marin on 01-09-2023 PT Coag (PPP) [Time] 13.1 s 9.0-12.9 [facility] Comment on above: A hematocrit value g reater than 55% may lead to inaccurate results in coagulation testing. Patients having hematocrit values >55% require a special collection tube for coagulation studies. Please contact the laboratory at [phone] for redraw instructions. RBC Auto (Bld) [#/Vol]Ordere d By: Matthew Marin on 01-09-2023 RBC (Bld) [#/Vol] 4.33 10*6/uL 3.90-5.60 [facility] Serum or plasma albumin/glob ulin mass ratioOrdered By: Matthew Marin on 01-09-2023 Albumin/Globulin [Mass ratio] 1.1 {ratio} [facility] Serum or plasma anion gap de terminationOrdered By: Matthew Marin on 01-09-2023 Anion gap [Moles/Vol] 10.1 mmol/L 6.0-15.0 [facility] Serum or plasma non-glucuron idated bilirubin measurement (mass/volume)Ordered By: Matthew Marin on 01-09-2023 Bilirubin.indirect [Mass/Vol] 0.8 mg/dL [facility] Sodium [Moles/volume] in Ser um or PlasmaOrdered By: Matthew Marin on 01-09-2023 Sodium [Moles/Vol] 109 mmol/L 136-145 [facility] Comment on above: Critical Result Call ed to and read back by: ALONDRA HINTON at: 01/09/2023 11:29:32 by:SIL Specific gravity Auto test s trip (U) [Rel density]Ordered By: Matthew Marin on 01-09-2023 Specific gravity (U) [Rel density] 1.019 1.001-1.030 [facility] Squamous epithelial cells de tection in urine sediment by light microscopyOrdered By: Matthew Marin on 01-09-2023 Epithelial cells.squamous LM Ql (Urine sed) None seen [HPF] 0-2 [facility] TYPE AND SCREENon 01-09-2023 ABO and Rh group Nom (Bld) Blood group A Rh(D) positive [facility] ABO and Rh group Nom (Bld) No Previous Results [facility] Blood group antibody screen Ql Negative [facility] ABO and Rh group Nom (Bld) Blood group A Rh(D) positive Normal [facility] Comment on above: Performed By: #### T S #### [facility] [address] [place] [address], [id number] ABO and Rh group Nom (Bld) No Previous Results Normal [facility] Comment on above: Performed By: #### T S #### [facility] [address] [place], [place], ABSC INT Negative Normal [facility] Comment on above: Performed By: #### T S #### [facility] [address] [place], [place], URINALYSIS WITH REFLEX CULTU RE PERFORMABLEon 01-09-2023 Appearance (U) Clear Clear [facility] Bilirubin Ql (U) Negative Negative [facility] Color (U) Colorless Colorless [facility] Glucose Auto test strip (U) [Mass/Vol] Negative Negative mg/dL [facility] Hemoglobin Ql (U) Negative Negative [facility] Interpretation and review of laboratory results Abnormal [facility] Ketones Ql (U) 20 mg/dL Abnormal Negative [facility] Leukocyte esterase Test strip Ql (U) Negative Negative [facility] Nitrite Ql (U) Negative Negative [facility] pH (U) 6.5 [pH] 5.0 - 8.0 [facility] Protein (U) [Mass/Vol] Negative Negat evy mg/dL [facility] Specific gravity (U) [Rel density] 1.006 NINF - 1.030 [facility] Urobilinogen Qn (U) Negative Negative mg/dL [facility] A negative leukocyte esterase AND negative nitrite test or absence of pyuria (urine WBC count <= 5-10) make a UTI (urinary tract infection) very unlikely in a non-neutropenic adult (<=5% likelihood in many studies). A positive leukocyte esterase, nitrite and/or pyuria is a nonspecific result. This can be seen in conditions other than a UTI e.g. asymptomatic bacteriuria, gynecologic infections, sexually transmitted infections, and noninfectious conditions (positive predictive value for UTI around 50%) [facility] Glucose Ql (U) Negative Normal Negative [facility] Comment on above: Order Comment: A neg ative leukocyte esterase AND negative nitrite test or absence of pyuria (urine WBC count <= 5-10) make a UTI (urinary tract infection) very unlikely in a non-neutropenic adult (<=5% likelihood in many studies). A positive leukocyte esterase, nitrite and/or pyuria is a nonspecific result. This can be seen in conditions other than a UTI e.g. asymptomatic bacteriuria, gynecologic infections, sexually transmitted infections, and noninfectious conditions (positive predictive value for UTI around 50%) Performed By: #### u rinalysiswcul #### [facility] [address] [place] [address], U APPEAR Clear Normal Clear [facility] Comment on above: Order Comment: A neg ative leukocyte esterase AND negative nitrite test or absence of pyuria (urine WBC count <= 5-10) make a UTI (urinary tract infection) very unlikely in a non-neutropenic adult (<=5% likelihood in many studies). A positive leukocyte esterase, nitrite and/or pyuria is a nonspecific result. This can be seen in conditions other than a UTI e.g. asymptomatic bacteriuria, gynecologic infections, sexually transmitted infections, and noninfectious conditions (positive predictive value for UTI around 50%) Performed By: #### u rinalysiswcul #### [facility] [address] [place] [address], U BILI Negative Normal Negative [facility] Comment on above: Order Comment: A neg ative leukocyte esterase AND negative nitrite test or absence of pyuria (urine WBC count <= 5-10) make a UTI (urinary tract infection) very unlikely in a non-neutropenic adult (<=5% likelihood in many studies). A positive leukocyte esterase, nitrite and/or pyuria is a nonspecific result. This can be seen in conditions other than a UTI e.g. asymptomatic bacteriuria, gynecologic infections, sexually transmitted infections, and noninfectious conditions (positive predictive value for UTI around 50%) Performed By: #### u rinalysiswcul #### [facility] [address] [place] [address], U BLOOD Negative Normal Negative [facility] Comment on above: Order Comment: A neg ative leukocyte esterase AND negative nitrite test or absence of pyuria (urine WBC count <= 5-10) make a UTI (urinary tract infection) very unlikely in a non-neutropenic adult (<=5% likelihood in many studies). A positive leukocyte esterase, nitrite and/or pyuria is a nonspecific result. This can be seen in conditions other than a UTI e.g. asymptomatic bacteriuria, gynecologic infections, sexually transmitted infections, and noninfectious conditions (positive predictive value for UTI around 50%) Performed By: #### u rinalysiswcul #### [facility] [address] [place] [address], U COLOR Colorless Normal Colorless [facility] Comment on above: Order Comment: A neg ative leukocyte esterase AND negative nitrite test or absence of pyuria (urine WBC count <= 5-10) make a UTI (urinary tract infection) very unlikely in a non-neutropenic adult (<=5% likelihood in many studies). A positive leukocyte esterase, nitrite and/or pyuria is a nonspecific result. This can be seen in conditions other than a UTI e.g. asymptomatic bacteriuria, gynecologic infections, sexually transmitted infections, and noninfectious conditions (positive predictive value for UTI around 50%) Performed By: #### u rinalysiswcul #### [facility] [address] [place] [address], U KETONE 20 mg/dL Abnormal Negative [facility] Comment on above: Order Comment: A neg ative leukocyte esterase AND negative nitrite test or absence of pyuria (urine WBC count <= 5-10) make a UTI (urinary tract infection) very unlikely in a non-neutropenic adult (<=5% likelihood in many studies). A positive leukocyte esterase, nitrite and/or pyuria is a nonspecific result. This can be seen in conditions other than a UTI e.g. asymptomatic bacteriuria, gynecologic infections, sexually transmitted infections, and noninfectious conditions (positive predictive value for UTI around 50%) Performed By: #### u rinalysiswcul #### [facility] [address] [place] [address], U LEUK Negative Normal Negative [facility] Comment on above: Order Comment: A neg ative leukocyte esterase AND negative nitrite test or absence of pyuria (urine WBC count <= 5-10) make a UTI (urinary tract infection) very unlikely in a non-neutropenic adult (<=5% likelihood in many studies). A positive leukocyte esterase, nitrite and/or pyuria is a nonspecific result. This can be seen in conditions other than a UTI e.g. asymptomatic bacteriuria, gynecologic infections, sexually transmitted infections, and noninfectious conditions (positive predictive value for UTI around 50%) Performed By: #### u rinalysiswcul #### [facility] [address] [place], [place], U NITRITE Negative Normal Negative [facility] Comment on above: Order Comment: A neg ative leukocyte esterase AND negative nitrite test or absence of pyuria (urine WBC count <= 5-10) make a UTI (urinary tract infection) very unlikely in a non-neutropenic adult (<=5% likelihood in many studies). A positive leukocyte esterase, nitrite and/or pyuria is a nonspecific result. This can be seen in conditions other than a UTI e.g. asymptomatic bacteriuria, gynecologic infections, sexually transmitted infections, and noninfectious conditions (positive predictive value for UTI around 50%) Performed By: #### u rinalysiswcul #### [facility] [address] [place] [address], U PH 6.5 Normal 5.0-8.0 [facility] Comment on above: Order Comment: A neg ative leukocyte esterase AND negative nitrite test or absence of pyuria (urine WBC count <= 5-10) make a UTI (urinary tract infection) very unlikely in a non-neutropenic adult (<=5% likelihood in many studies). A positive leukocyte esterase, nitrite and/or pyuria is a nonspecific result. This can be seen in conditions other than a UTI e.g. asymptomatic bacteriuria, gynecologic infections, sexually transmitted infections, and noninfectious conditions (positive predictive value for UTI around 50%) Performed By: #### u rinalysiswcul #### [facility] [address] [place] [address], U PROTEIN Negative Normal Negative [facility] Comment on above: Order Comment: A neg ative leukocyte esterase AND negative nitrite test or absence of pyuria (urine WBC count <= 5-10) make a UTI (urinary tract infection) very unlikely in a non-neutropenic adult (<=5% likelihood in many studies). A positive leukocyte esterase, nitrite and/or pyuria is a nonspecific result. This can be seen in conditions other than a UTI e.g. asymptomatic bacteriuria, gynecologic infections, sexually transmitted infections, and noninfectious conditions (positive predictive value for UTI around 50%) Performed By: #### u rinalysiswcul #### [facility] [address] [place], [place], U SG 1.006 Normal <=1.030 [facility] Comment on above: Order Comment: A neg ative leukocyte esterase AND negative nitrite test or absence of pyuria (urine WBC count <= 5-10) make a UTI (urinary tract infection) very unlikely in a non-neutropenic adult (<=5% likelihood in many studies). A positive leukocyte esterase, nitrite and/or pyuria is a nonspecific result. This can be seen in conditions other than a UTI e.g. asymptomatic bacteriuria, gynecologic infections, sexually transmitted infections, and noninfectious conditions (positive predictive value for UTI around 50%) Performed By: #### u rinalysiswcul #### S [facility] [address] [place] [address], U UROBILI Negative Normal Negative [facility] Comment on above: Order Comment: A neg ative leukocyte esterase AND negative nitrite test or absence of pyuria (urine WBC count <= 5-10) make a UTI (urinary tract infection) very unlikely in a non-neutropenic adult (<=5% likelihood in many studies). A positive leukocyte esterase, nitrite and/or pyuria is a nonspecific result. This can be seen in conditions other than a UTI e.g. asymptomatic bacteriuria, gynecologic infections, sexually transmitted infections, and noninfectious conditions (positive predictive value for UTI around 50%) Performed By: #### u rinalysiswcul #### [facility] [address] [place] [address], Urea nitrogen [Mass/volume] in Serum or PlasmaOrdered By: Matthew Marin on 01-09-2023 Urea nitrogen [Mass/Vol] 12 mg/dL 10-06 [facility] Urine bacteria detection by automated methodOrdered By: Matthew Marin on 01-09-2023 Bacteria Auto Ql (U) None seen None Seen [facility] Urine clarity by refractomet ry automatedOrdered By: Matthew Marin on 01-09-2023 Clarity Refractometry automated (U) Clear Clear [facility] Urine glucose measurement by automated test strip (mass/volume)Ordered By: Matthew Marin on 01-09-2023 Glucose Auto test strip (U) [Mass/Vol] Normal mg/dL Normal [facility] Urine hemoglobin detection b y automated test stripOrdered By: Matthew Marin on 01-09-2023 Hemoglobin Auto test strip Ql (U) Negative Negative [facility] Urine leukocyte esterase det ection by automated test stripOrdered By: Matthew Marin on 01-09-2023 Leukocyte esterase Auto test strip Ql (U) Negative Negative [facility] Urobilinogen Auto test strip (U) [Mass/Vol]Ordered By: Matthew aMrin on 01-09-2023 Urobilinogen (U) [Mass/Vol] Normal mg/dL Normal [facility] WBC Auto (Bld) [#/Vol]Ordere d By: Matthew Marin on 01-09-2023 WBC (Bld) [#/Vol] 12.8 10*3/uL 4.1-10.5 [facility] pH Auto test strip (U)Ordere d By: Matthew Marin on 01-09-2023 pH (U) 6.0 [pH] 5.0-9.0 [facility] NM PET w/ CT Scan Skull Base to Midthighon 12-18-2022 NM PET w/ CT Scan Skull Base to Midthigh Normal [facility] RAD - MISCon 12-17-2022 RAD - MISC [id number] :127 [facility] Consent for Treatmenton Consent for Treatment [id number]: 127 Normal [facility] Physician Orderon 2022 Physician Order [id number] [id number]: 127 [facility] Height or Weight NOT Doneon 09-25-2022 Tobacco use status [facility] b) No -[facility] [address] DO Work Phone: Office Visit (Cardiology)on 09-25-2022 Follow-up visit Diagnoses/Problems Assessed Aortic stenosis (424.1) (I35.0) Atrial flutter (427.32) (I48.92) Benign essential hypertension (401.1) (I10) Renal transplant recipient (V42.0) (Z94.0) Class 1 obesity with body mass index (BMI) of 30.0 to 30.9 in adult (278.00,V85.30) (E66.9,Z68.30) Orders Atrial flutter IO EKG Electrocardiogram- 12 Lead; Status:Complete; Done: [id number] Atrial flutter, Palpitations Renew: dilTIAZem HCl ER Coated Beads 180 MG Oral Capsule Extended Release 24 Hour; TAKE 1 CAPSULE Daily Class 1 obesity with body mass index (BMI) of 30.0 to 30.9 in adult Healthy Weight Tips; Status:Complete; Done: [id number] Some eating tips that can help you lose weight.; Status:Complete; Done: [id number] Patient Instructions Please bring all medicines, vitamins, and herbal supplements with you when you come to the office. Prescriptions will not be filled unless you are compliant with your follow up appointments or have a follow up appointment scheduled as per instruction of your physician. Refills should be requested at the time of your visit. follow up in 6 months The provider reviewed the following test(s) and result(s) with the patient: echocardiogram Chief Complaint JAGRUTI ESPARZA is being seen for a 6 month follow-up of. History of Present Illness Had GI bleed and 12 unit blood transfusion Patient returns in follow-up of problems as noted. In the interim he is done well. He had a life-threatening gastrointestinal bleed necessitating multiple blood transfusions. Because of this he was instructed to stop all antiplatelet and antithrombotic therapy and I believe this is reasonable. It appears that sinus rhythm is well maintained on flecainide therapy because of this we believe the atrial flutter to be adequately controlled. He was educated regarding symptoms watch for and encouraged to call if they arise. Increased body mass index was noted and the merits of diet and weight loss since favorable impact on arrhythmia as well as blood pressure were discussed. We also reviewed with him his recent echocardiogram from several months ago. It is basically normal except for mild aortic stenosis not in need of intervention. Annual echocardiography was discussed and explained. Surgical History Problems History of Arteriovenous fistula creation procedure History of Colonoscopy complete for polypectomy History of Facial surgery History of Kidney transplantation History of Neck surgery c4-c5 History of Vasectomy Current Meds Medication NameInstruction CellCept 250 MG Oral CapsuleTAKE 3 CAPSULES BY MOUTH TWICE DAILY dilTIAZem HCl ER Coated Beads 180 MG Oral Capsule Extended Release 24 HourTAKE 1 CAPSULE Daily Flecainide Acetate 50 MG Oral TabletTAKE 1 TABLET BY MOUTH EVERY 8 HOURS MAGnesium-Oxide 400 (240 Mg) MG Oral TabletTake 1 tablet daily Pantoprazole Sodium 20 MG Oral Tablet Delayed ReleaseTAKE 1 TABLET BY MOUTH TWICE DAILY predniSONE 5 MG Oral TabletTAKE 1 TABLET DAILY DIRECTED. Prograf 0.5 MG Oral CapsuleTAKE 1 CAPSULE BY MOUTH EVERY 12 HOURS FOR 30 DAYS Prograf 1 MG Oral CapsuleTake 1 tablet twice daily rOPINIRole HCl - 1 MG Oral TabletTAKE 1 TABLET BY MOUTH ONCE DAILY FOR 90 DAYS Sulfamethoxazole-Trimeth oprim 400-80 MG Oral TabletTAKE 1 TABLET BY MOUTH ONCE DAILY Patient did not bring medication list or bottles. Updated verbally with patient Allergies Medication amoxicillin Allergy; Hives;; Updated By: Janae Steward; 07/11/2021 1:13:09 PM Rash cephalexin Allergy; Hives;; Updated By: Janae Steward; 07/11/2021 1:13:09 PM Hives Penicillins Allergy; Hives;; Updated By: Janae Steward; 07/11/2021 1:13:09 PM Rash Demerol SOLN Adverse Reaction; Dizziness; Updated By: Janae Steward; 07/11/2021 1:13:09 PM Dizziness Social History Problems Never a smoker No alcohol use No illicit drug use Occasional caffeine consumption Chocolate Review of Systems Constitutional: not feeling tired. Eyes: no eyesight problems. ENT: no hearing loss and no nosebleeds. Cardiovascular: no intermittent leg claudication and as noted in HPI. Respiratory: no chronic cough and no shortness of breath. Gastrointestinal: no change in bowel habits and no blood in stools. Genitourinary: no urinary frequency and no hematuria. Skin: no skin rashes. Neurological: no seizures and no frequent falls. Psychiatric: no depression and not suicidal. All other systems have been reviewed and are negative for complaint. Vitals Vital Signs Recorded: [id number] 02:47PM Heart Rate87, Apical [id number], LUE, Sitting [id number], LUE, Sitting Height5 ft 9 in Height or Weight NOT DoneMedical Reason Not Done Tobacco Useb) No EKG done in office today. Physical Exam Constitutional: alert and in no acute distress. Eyes: no erythema, swelling or discharge from the eye . Neck: neck is supple, symmetric, trachea midline, no masses and no thyromegaly . Pulmonary: no increased wor (more content not included)... Normal [facility] Echocardiogramon 08-05-2022 Echocardiography [facility] [place] [address], [address], [place] [address] TRANSTHORACIC ECHOCARDIOGRAM REPORT Patient Name: JAGRUTI ESPARZA Reading Physician: [id number] Hernandez Hankins MD Study Date: 08/05/2022 Referring Physician: HERNANDEZ HANKINS MRN/PID: [id number] PCP: Aishwarya Lundy Accession/Order#: [id number] Department Location: [facility] [place] Date of : 1955 Fellow: Gender: M Nurse: Admit Date: Gutter Installer: NAKUL Height: 175.26 cm CC Report to: Weight: 92.53 kg Study Type: Echocardiogram BSA: 2.08 m2 Diagnosis/ICD: I35.0-Nonrheumatic aortic (valve) stenosis; I48.92-Unspecified atrial flutter Indication: HTN, Palpitations, Renal Transplant Recipient, Obesity Procedure/CPT: Echo Complete w Full [id number] Study Detail: The following Echo studies were performed: 2D, M-Mode, Doppler and color flow. PHYSICIAN INTERPRETATION: Left Ventricle: Left ventricular systolic function is normal, with an estimated ejection fraction of 55-60%. There are no regional wall motion abnormalities. The left ventricular cavity size is mildly dilated. There is mild to moderate concentric left ventricular hypertrophy. Spectral Doppler shows an impaired relaxation pattern of left ventricular diastolic filling. Left Atrium: The left atrium is moderately dilated. Right Ventricle: The right ventricle is moderately enlarged. There is normal right ventricular global systolic function. Right Atrium: The right atrium is mild to moderately dilated. Aortic Valve: The aortic valve is trileaflet. There is evidence of mild to moderate aortic valve stenosis. There is no evidence of aortic valve regurgitation. The peak instantaneous gradient of the aortic valve is 22.8 mmHg. The mean gradient of the aortic valve is 8.0 mmHg. Mitral Valve: The mitral valve is mildly thickened. There is trace mitral valve regurgitation. Tricuspid Valve: The tricuspid valve is structurally normal. There is trace to mild tricuspid regurgitation. Pulmonic Valve: The pulmonic valve is not well visualized. There is no indication of pulmonic valve regurgitation. Pericardium: There is no pericardial effusion noted. Aorta: The aortic root is normal. CONCLUSIONS: 1. Left ventricular systolic function is normal with a 55-60% estimated ejection fraction. 2. Spectral Doppler shows an impaired relaxation pattern of left ventricular diastolic filling. 3. Moderately enlarged right ventricle. 4. The left atrium is moderately dilated. 5. The right atrium is mild to moderately dilated. 6. Mild to moderate aortic valve stenosis. QUANTITATIVE DATA SUMMARY: 2D MEASUREMENTS: Normal Ranges: Ao Root d: 2.90 cm (2.0-3.7cm) LAs: 4.60 cm (2.7-4.0cm) RVIDd: 4.10 cm (0.9-3.6cm) IVSd: 1.50 cm (0.6-1.1cm) LVPWd: 1.40 cm (0.6-1.1cm) LVIDd: 5.90 cm (3.9-5.9cm) LVIDs: 4.30 cm LV Mass Index: 190.4 g/m2 LV % FS 27.1 % LV SYSTOLIC FUNCTION BY 2D PLANIMETRY (MOD): Normal Ranges: EF-A4C View: 54.9 % (>=55%) LV DIASTOLIC FUNCTION: Normal Ranges: MV Peak E: 1.26 m/s (0.7-1.2 m/s) MV Peak A: 1.04 m/s (0.42-0.7 m/s) E/A Ratio: 1.21 (1.0-2.2) MV lateral e' 0.10 m/s MV medial e' 0.08 m/s E/e' Ratio: 12.50 (<8.0) MITRAL VALVE: Normal Ranges: MV Vmax: 1.58 m/s (<=1.3m/s) MV peak P.0 mmHg (<5mmHg) MV mean P.0 mmHg (<48mmHg) AORTIC VALVE: Normal Ranges: AoV Vmax: 2.39 m/s (<=1.7m/s) AoV Peak P.8 mmHg (<20mmHg) AoV Mean P.0 mmHg (1.7-11.5mmHg) LVOT Max Dav: 1.04 m/s (<=1.1m/s) AoV VTI: 44.60 cm (18-25cm) LVOT VTI: 19.90 cm LVOT Diameter: 2.50 cm (1.8-2.4cm) AoV Area, VTI: 2.19 cm2 (2.5-5.5cm2) AoV Area,Vmax: 2.14 cm2 (2.5-4.5cm2) AoV Dimensionless Index: 0.45 TRICUSPID VALVE/RVSP: Normal Ranges: Peak TR Velocity: 2.82 m/s RV Syst Pressure: 34.8 mmHg (< 30mmHg) PULMONIC VALVE: Normal Ranges: PV Max Dav: 0.7 m/s (0.6-0.9m/s) PV Max P.9 mmHg [id number] Hernandez Hankins MD Electronically signed on 08/09/2022 at 5:13:00 PM Final Normal [facility] CBC AUTO DIFFon 07-09-2022 BASO # 0.0 103/ul Normal 0.0-0.1 [facility] Comment on above: Performed By: #### B MP #### [facility] [address] [place] [address] [address] Derek Feldman Basophils/100 WBC (Bld) 0.5 % Normal 0.2-2.0 [facility] Comment on above: Performed By: #### B MP #### [facility] [address] [place] [address] [address] Derek Feldman EO # 0.0 103/ul Normal 0.0-0.7 [facility] Comment on above: Performed By: #### B MP #### [facility] [address] [place] [address] [address] Derek Feldman Eosinophils/100 WBC (Bld) 0.5 % Critically low 0.9-7.0 [facility] Comment on above: Performed By: #### B MP #### [facility] [address] [place] [address] [address] Derek Feldman Erythrocyte distribution width (RBC) [Ratio] 16.6 % Critically high 11.0-15.0 [facility] Comment on above: Performed By: #### B MP #### [facility] [address] [place] [address] [address] Derek Feldman Hematocrit (Bld) [Volume fraction] 33.3 % Critically low 42.0-54.0 [facility] Comment on above: Performed By: #### B MP #### [facility] [address] [place] [address] [address] Derek Feldman Hemoglobin (Bld) [Mass/Vol] 10.4 g/dL Critically low 14.0-18.0 [facility] Comment on above: Performed By: #### B MP #### [facility] [address] [place] [address] [address] Derek Fledman IG # 0.03 10e3/ul Normal 0.00-0.03 [facility] Comment on above: Performed By: #### B MP #### [facility] [address] [place] [address] [address] Derek Feldman IG % 0.5 % Normal 0.0-0.5 [facility] Comment on above: Performed By: #### B MP #### [facility] [address] [place] [address] [address] Derek Feldman LYMPH # 1.0 103/ul Critically low 1.2-3.8 [facility] Comment on above: Performed By: #### B MP #### [facility] [address] [place] [address] [address] Derek Feldman Lymphocytes/100 WBC (Bld) 17.1 % Critically low 20.5-60.0 [facility] Comment on above: Performed By: #### B MP #### [facility] [address] [place] [address] [address] Derek Feldman MANUAL DIFF REQ NO Normal [facility] Comment on above: Performed By: #### B MP #### [facility] [address] [place] [address] Dr. Derek Feldman MCH (RBC) [Entitic mass] 26.7 pg Normal 25.9-34.0 [facility] Comment on above: Performed By: #### B MP #### [facility] [address] [place] [address] [address] Derek Feldman MCHC (RBC) [Mass/Vol] 31.2 g/dL Normal 29.9-35.2 [facility] Comment on above: Performed By: #### B MP #### [facility] [address] [place] [address] Dr. Derek Feldman MCV (RBC) [Entitic vol] 85.4 fL Normal 80.0-94.0 [facility] Comment on above: Performed By: #### B MP #### [facility] [address] [place] [address] Dr. Derek Fedlman MONO # 0.3 103/ul Normal 0.3-0.8 [facility] Comment on above: Performed By: #### B MP #### [facility] [address] [place] [address] Dr. Derek Feldman Monocytes/100 WBC (Bld) 5.1 % Normal 1.7-12.0 [facility] Comment on above: Performed By: #### B MP #### [facility] [address] [place] [address] Dr. Derek Feldman NEUT # 4.6 103/ul Normal 1.4-6.5 [facility] Comment on above: Performed By: #### B MP #### [facility] [address] [place] [address] Dr. Derek Feldman Neutrophils/100 WBC (Bld) 76.3 % Critically high 43.0-75.0 [facility] Comment on above: Performed By: #### B MP #### [facility] [address] [place] [address] Dr. Derek Feldman Platelet mean volume (Bld) [Entitic vol] 10.3 fL Normal 9.5-13.5 [facility] Comment on above: Performed By: #### B MP #### [facility] [address] [place] [address] Dr. Deerk Feldman PLT 198 103/ul Normal 150-450 [facility] Comment on above: Performed By: #### B MP #### [facility] [address] [place] [address] [address] Derek Feldman RBC 3.90 106/ul Critically low 4.70-6.10 [facility] Comment on above: Performed By: #### B MP #### [facility] [address] [place] [address] [address] Derek Feldman WBC 6.0 103/ul Normal 4.0-11.0 [facility] Comment on above: Performed By: #### B MP #### [facility] [address] [place] [address] [address] Derek Feldman PROF CHEM 8 (BAS METB)on Anion gap [Moles/Vol] 10.7 mmol/L Normal [facility] Comment on above: Performed By: #### B MP #### [facility] [address] [place] [address] Dr. Derek Feldman Calcium [Mass/Vol] 9.4 mg/dL Normal 8.5-10.1 [facility] Comment on above: Performed By: #### B MP #### [facility] [address] [place] [address] [address] Derek Feldman Chloride [Moles/Vol] 98 mmol/L Normal 98-107 [facility] Comment on above: Performed By: #### B MP #### [facility] [address] [place] [address] [address] Derek Feldman CO2 [Moles/Vol] 23.4 mmol/L Normal 21.0-32.0 [facility] Comment on above: Performed By: #### B MP #### [facility] [address] [place] [address] Dr. Derek Feldman Creatinine [Mass/Vol] 0.98 mg/dL Normal 0.70-1.30 [facility] Comment on above: Performed By: #### B MP #### [facility] [address] [place] [address] [address] Derek Feldman EGFR-AF BELIZEAN >60 Normal >=60 [facility] Comment on above: Performed By: #### B MP #### [facility] [address] [place] [address] [address] Derek Feldman EGFR-NON AF BELIZEAN >60 Normal >=60 [facility] Comment on above: Performed By: #### B MP #### [facility] [address] [place] [address] [address] Derek Feldman Glucose [Mass/Vol] 128 mg/dL Critically high 74-106 [facility] Comment on above: Performed By: #### B MP #### [facility] [address] [place] [address] [address] Derek Feldman Potassium [Moles/Vol] 5.1 mmol/L Normal 3.5-5.1 [facility] Comment on above: Performed By: #### B MP #### [facility] [address] [place] [address] [address] Derek Feldman Sodium [Moles/Vol] 127 mmol/L Critically low 136-145 [facility] Comment on above: Performed By: #### B MP #### [facility] [address] [place] [address] [address] Derek Feldman Urea nitrogen [Mass/Vol] 9.0 mg/dL Normal 7.0-18.0 [facility] Comment on above: Performed By: #### B MP #### [facility] [address] [place] [address] [address] Derek Feldman Urea nitrogen/Creatinine [Mass ratio] 9.2 mg/mg Normal [facility] Comment on above: Performed By: #### B MP #### [facility] [address] [place] [address] [address] Derek Feldman Basic Metabolic Panelon 06-13 Anion gap [Moles/Vol] 7.4 mmol/L Normal 6.0-15.0 [facility] Comment on above: Performed By: #### B MP, CBC #### [facility] [address] Calcium [Mass/Vol] 8.5 mg/dL Low 8.6-10.3 [facility] Comment on above: Performed By: #### B MP, CBC #### [facility] [address] [place] [address] [place] Chloride [Moles/Vol] 105 mmol/L Normal 98-107 [facility] Comment on above: Performed By: #### B MP, CBC #### [address] CO2 [Moles/Vol] 25.4 mmol/L Normal 21.0-31.[address] [facility] Comment on above: Performed By: #### B MP, CBC #### [address] Creatinine [Mass/Vol] 0.93 mg/dL Normal 0.70-1.30 [facility] Comment on above: Performed By: #### B MP, CBC #### [place] [address] [place] Creatinine Clr Calc Pharmacy 89.63 Normal [facility] Comment on above: Result Comment: PERF ORMED BY: [place] [address] PATHOLOGIST [employer] SAMANTHA ROTH M.D. Performed By: #### B MP, CBC #### [place] [address] [place] GFR/1.73 sq M.predicted MDRD (S/P/Bld) [Vol rate/Area] mL/min/{1.73_m2} Normal [facility] Comment on above: Performed By: #### B MP, CBC #### [address] Glucose [Mass/Vol] 96 mg/dL Normal 70-100 [facility] Comment on above: Result Comment: [facility] Glucose Reference Range is dependent on time and content of last meal. Glucose of more than 200 mg/dL in a nonstressed, ambulatory subject supports the diagnosis of Diabetes Mellitus. ADA recommended reference range Performed By: #### B MP, CBC #### [address] Potassium [Moles/Vol] 4.8 mmol/L Normal 3.5-5.1 [facility] Comment on above: Performed By: #### B MP, CBC #### [facility] [address] Sodium [Moles/Vol] 133 mmol/L Low 136-145 [facility] Comment on above: Performed By: #### B MP, CBC #### [facility] [address] Urea nitrogen [Mass/Vol] 10 mg/dL Normal 7-25 [facility] Comment on above: Performed By: #### B MP, CBC #### [facility] [address] Basophils Auto (Bld) [#/Vol] Ordered By: Chao Curiel on 06-29-2022 Basophils (Bld) [#/Vol] 0.0 10*3/uL 0.0-0.2 [facility] Basophils/100 WBC Auto (Bld) Ordered By: Chao Curiel on 06-29-2022 Basophils/100 WBC (Bld) 0.5 % . [facility] Calcium [Mass/volume] in Ser um or PlasmaOrdered By: Chao Curiel on 06-29-2022 Calcium [Mass/Vol] 8.5 mg/dL 8.6-10.3 [facility] Carbon dioxide, total [Moles /volume] in Serum or PlasmaOrdered By: Chao Curiel on 06-29-2022 CO2 [Moles/Vol] 25.4 mmol/L 21.0-31.[address] [facility] Chloride [Moles/volume] in S annita or PlasmaOrdered By: Chao Curiel on 06-29-2022 Chloride [Moles/Vol] 105 mmol/L 98-107 [facility] Complete Blood Count Auto Di ffon 06-29-2022 Basophils (Bld) [#/Vol] 0.0 10*3/uL Normal 0.0-0.2 [facility] Comment on above: Result Comment: PERF ORMED BY: [facility] [address] [place] [address] PATHOLOGIST [employer] SAMANTHA ROTH M.D. Performed By: #### B MP, CBC #### [facility] [address] [place] [address] [place] Basophils/100 WBC (Bld) 0.5 % Normal . [facility] Comment on above: Performed By: #### B MP, CBC #### [facility] [address] [place] [address] [place] Eosinophils (Bld) [#/Vol] 0.1 10*3/uL Normal 0.0-0.45 [facility] Comment on above: Performed By: #### B MP, CBC #### [facility] [address] Eosinophils/100 WBC (Bld) 1.9 % Normal . [facility] Comment on above: Performed By: #### B MP, CBC #### [address] Erythrocyte distribution width (RBC) [Ratio] 18.5 % High 12.0-14.8 [facility] Comment on above: Performed By: #### B MP, CBC #### [address] Hematocrit (Bld) [Volume fraction] 28.2 % Low 38.8-50.0 [facility] Comment on above: Performed By: #### B MP, CBC #### [facility] [address] Hemoglobin (Bld) [Mass/Vol] 9.4 g/dL Low 13.0-17.0 [facility] Comment on above: Performed By: #### B MP, CBC #### [facility] [address] [place] [address] [place] Lymphocytes (Bld) [#/Vol] 1.6 10*3/uL Normal 1.00-4.8 [facility] Comment on above: Performed By: #### B MP, CBC #### [facility] [address] [place] [address] [place] Lymphocytes/100 WBC (Bld) 22.5 % Normal . [facility] Comment on above: Performed By: #### B MP, CBC #### [address] MCH (RBC) [Entitic mass] 28.0 pg Normal 27.5-35.2 [facility] Comment on above: Performed By: #### B MP, CBC #### [address] MCV (RBC) [Entitic vol] 83.8 fL Normal 83.5-101 [facility] Comment on above: Performed By: #### B MP, CBC #### [address] Mean Corpuscular HGB Conc 33.4 g/dL Normal 32.5-35.6 [facility] Comment on above: Performed By: #### B MP, CBC #### [address] Monocytes (Bld) [#/Vol] 0.6 10*3/uL Normal 0.0-0.8 [facility] Comment on above: Performed By: #### B MP, CBC #### [address] Monocytes/100 WBC (Bld) 9.1 % Normal . [facility] Comment on above: Performed By: #### B MP, CBC #### [address] Neutrophils (Bld) [#/Vol] 4.6 10*3/uL Normal 1.8-7.7 [facility] Comment on above: Performed By: #### B MP, CBC #### [address] Neutrophils/100 WBC (Bld) 66.0 % Normal . [facility] Comment on above: Performed By: #### B MP, CBC #### [address] NRBC% 0.0 /100{WBC} Normal 0-0.5 [facility] Comment on above: Performed By: #### B MP, CBC #### [address] Platelet mean volume (Bld) [Entitic vol] 6.3 fL Low 6.6-10.1 [facility] Comment on above: Performed By: #### B MP, CBC #### [facility] [address] Platelets (Bld) [#/Vol] 224 10*3/uL Normal 150-450 [facility] Comment on above: Performed By: #### B MP, CBC #### [facility] [address] RBC (Bld) [#/Vol] 3.37 10*6/uL Low 3.90-5.60 [facility] Comment on above: Performed By: #### B MP, CBC #### [facility] [address] WBC (Bld) [#/Vol] 7.0 10*3/uL Normal 4.1-10.5 [facility] Comment on above: Performed By: #### B MP, CBC #### [facility] [address] Creatinine [Mass/volume] in Serum or PlasmaOrdered By: Chao Curiel on 06-29-2022 Creatinine [Mass/Vol] 0.93 mg/dL 0.70-1.30 [facility] Eosinophils Auto (Bld) [#/Vo l]Ordered By: Chao Curiel on 06-29-2022 Eosinophils (Bld) [#/Vol] 0.1 10*3/uL 0.0-0.45 [facility] Eosinophils/100 WBC Auto (Bl d)Ordered By: Chao Curiel on 06-29-2022 Eosinophils/100 WBC (Bld) 1.9 % . [facility] Erythrocyte distribution wid th Auto (RBC) [Ratio]Ordered By: Chao Curiel on 06-29-2022 Erythrocyte distribution width (RBC) [Ratio] 18.5 % 12.0-14.8 [facility] Glucose [Mass/volume] in Ser um or PlasmaOrdered By: Chao Curiel on 06-29-2022 Glucose [Mass/Vol] 96 mg/dL 70-100 [facility] Comment on above: ADA recommended refe rence rangeRandom Glucose Reference Range is dependent on time and content of last meal. Glucose of more than 200 mg/dL in a nonstressed, ambulatory subject supports the diagnosis of Diabetes Mellitus. Hematocrit Auto (Bld) [Volum e fraction]Ordered By: Chao Curiel on 06-29-2022 Hematocrit (Bld) [Volume fraction] 28.2 % 38.8-50.0 [facility] Hemoglobin [Mass/volume] in BloodOrdered By: Chao Curiel on 06-29-2022 Hemoglobin (Bld) [Mass/Vol] 9.4 g/dL 13.0-17.0 [facility] Leukocytes [#/volume] correc feroz for nucleated erythrocytes in Blood by Automated counOrdered By: Chao Curiel on 06-29-2022 WBC corrected for nucl RBC Auto (Bld) [#/Vol] 7.0 10*3/uL 4.1-10.5 [facility] Lymphocytes Auto (Bld) [#/Vo l]Ordered By: Chao Curiel on 06-29-2022 Lymphocytes (Bld) [#/Vol] 1.6 10*3/uL 1.00-4.8 [facility] Lymphocytes/100 WBC Auto (Bl d)Ordered By: Chao Curiel on 06-29-2022 Lymphocytes/100 WBC (Bld) 22.5 % . [facility] MCH Auto (RBC) [Entitic mass ]Ordered By: Chao Curiel on 06-29-2022 MCH (RBC) [Entitic mass] 28.0 pg 27.5-35.2 [facility] MCHC Auto (RBC) [Mass/Vol]Or dered By: Chao Curiel on 06-29-2022 MCHC (RBC) [Mass/Vol] 33.4 g/dL 32.5-35.6 [facility] MCV Auto (RBC) [Entitic vol] Ordered By: Chao Curiel on 06-29-2022 MCV (RBC) [Entitic vol] 83.8 fL 83.5-101 [facility] Monocytes Auto (Bld) [#/Vol] Ordered By: Chao Curiel on 06-29-2022 Monocytes (Bld) [#/Vol] 0.6 10*3/uL 0.0-0.8 [facility] Monocytes/100 WBC Auto (Bld) Ordered By: Chao Curiel on 06-29-2022 Monocytes/100 WBC (Bld) 9.1 % . [facility] Neutrophils Auto (Bld) [#/Vo l]Ordered By: Chao Curiel on 06-29-2022 Neutrophils (Bld) [#/Vol] 4.6 10*3/uL 1.8-7.7 [facility] Neutrophils/100 WBC Auto (Bl d)Ordered By: Chao Curiel on 06-29-2022 Neutrophils/100 WBC (Bld) 66.0 % . [facility] No Panel InformationOrdered By: Chao Curiel on 06-29-2022 Estimated GFR (CKD-EPI) > 60.0 mL/Min [facility] Creatinine Clearance (Chem 89.63 [facility] Nucleated erythrocytes [Pres ence] in Blood by Automated countOrdered By: Chao Curiel on 06-29-2022 Nucleated RBC Auto Ql (Bld) 0.0 /100{WBC} 0-0.5 [facility] Platelet mean volume Auto (B ld) [Entitic vol]Ordered By: Chao Curiel on 06-29-2022 Platelet mean volume (Bld) [Entitic vol] 6.3 fL 6.6-10.1 [facility] Platelets Auto (Bld) [#/Vol] Ordered By: Chao Curiel on 06-29-2022 Platelets (Bld) [#/Vol] 224 10*3/uL 150-450 [facility] Potassium [Moles/volume] in Serum or PlasmaOrdered By: Chao Curiel on 06-29-2022 Potassium [Moles/Vol] 4.8 mmol/L 3.5-5.1 [facility] RBC Auto (Bld) [#/Vol]Ordere d By: Chao Curiel on 06-29-2022 RBC (Bld) [#/Vol] 3.37 10*6/uL 3.90-5.60 [facility] Serum or plasma anion gap de terminationOrdered By: Chao Curiel on 06-29-2022 Anion gap [Moles/Vol] 7.4 mmol/L 6.0-15.0 [facility] Sodium [Moles/volume] in Ser um or PlasmaOrdered By: Chao Curiel on 06-29-2022 Sodium [Moles/Vol] 133 mmol/L 136-145 [facility] Urea nitrogen [Mass/volume] in Serum or PlasmaOrdered By: Chao Curiel on 06-29-2022 Urea nitrogen [Mass/Vol] 10 mg/dL 7 [facility] WBC Auto (Bld) [#/Vol]Ordere d By: Chao Curiel on 06-29-2022 WBC (Bld) [#/Vol] 7.0 10*3/uL 4.1-10.5 [facility] Basic Metabolic Panelon 06-13 Anion gap [Moles/Vol] 8.4 mmol/L Normal 6.0-15.0 [facility] Comment on above: Performed By: #### C BC, BMP #### [facility] [address] Calcium [Mass/Vol] 8.3 mg/dL Low 8.6-10.3 [facility] Comment on above: Performed By: #### C BC, BMP #### [facility] [address] Chloride [Moles/Vol] 104 mmol/L Normal 98-107 [facility] Comment on above: Performed By: #### C BC, BMP #### [facility] [address] [place] [id number] [place] CO2 [Moles/Vol] 21.9 mmol/L Normal 21.0-31.[address] [facility] Comment on above: Performed By: #### C BC, BMP #### [facility] [address] [place] [address] [place] Creatinine [Mass/Vol] 0.86 mg/dL Normal 0.70-1.30 [facility] Comment on above: Performed By: #### C BC, BMP #### [facility] [address] [place] [address] [place] Creatinine Clr Calc Pharmacy 96.25 [facility] Comment on above: Result Comment: PERF ORMED BY: [place] [address] PATHOLOGIST [employer] SAMANTHA ROTH M.D. Performed By: #### C BC, BMP #### [place] [address] [place] GFR/1.73 sq M.predicted MDRD (S/P/Bld) [Vol rate/Area] mL/min/{1.73_m2} [facility] Comment on above: Performed By: #### C BC, BMP #### [address] Glucose [Mass/Vol] 178 mg/dL High 70-100 [facility] Comment on above: Result Comment: [facility] Glucose Reference Range is dependent on time and content of last meal. Glucose of more than 200 mg/dL in a nonstressed, ambulatory subject supports the diagnosis of Diabetes Mellitus. ADA recommended reference range Performed By: #### C BC, BMP #### [address] Potassium [Moles/Vol] 4.3 mmol/L Normal 3.5-5.1 [facility] Comment on above: Performed By: #### C BC, BMP #### [place] [address] [place] Sodium [Moles/Vol] 130 mmol/L Low 136-145 [facility] Comment on above: Performed By: #### C BC, BMP #### [place] [address] [place] Urea nitrogen [Mass/Vol] 12 mg/dL Normal 7-25 [facility] Comment on above: Performed By: #### C BC, BMP #### [address] Complete Blood Count Auto Di ffon 06-28-2022 Basophils (Bld) [#/Vol] 0.1 10*3/uL Normal 0.0-0.2 [facility] Comment on above: Result Comment: PERF ORMED BY: [place] [address] PATHOLOGIST [employer] SAMANTHA ROTH M.D. Performed By: #### C BC, BMP #### [address] Basophils/100 WBC (Bld) 1.1 % Normal . [facility] Comment on above: Performed By: #### C BC, BMP #### [address] Eosinophils (Bld) [#/Vol] 0.1 10*3/uL Normal 0.0-0.45 [facility] Comment on above: Performed By: #### C BC, BMP #### [address] Eosinophils/100 WBC (Bld) 1.5 % Normal . [facility] Comment on above: Performed By: #### C BC, BMP #### [address] Erythrocyte distribution width (RBC) [Ratio] 18.2 % High 12.0-14.8 [facility] Comment on above: Performed By: #### C BC, BMP #### [address] Hematocrit (Bld) [Volume fraction] 29.1 % Low 38.8-50.0 [facility] Comment on above: Performed By: #### C BC, BMP #### [address] Hemoglobin (Bld) [Mass/Vol] 9.7 g/dL Low 13.0-17.0 [facility] Comment on above: Performed By: #### C BC, BMP #### [address] Lymphocytes (Bld) [#/Vol] 1.2 10*3/uL Normal 1.00-4.8 [facility] Comment on above: Performed By: #### C BC, BMP #### [address] Lymphocytes/100 WBC (Bld) 15.6 % Normal . [facility] Comment on above: Performed By: #### C BC, BMP #### [address] MCH (RBC) [Entitic mass] 27.9 pg Normal 27.5-35.2 [facility] Comment on above: Performed By: #### C BC, BMP #### [address] MCV (RBC) [Entitic vol] 83.3 fL Low 83.5-101 [facility] Comment on above: Performed By: #### C BC, BMP #### [address] Mean Corpuscular HGB Conc 33.5 g/dL Normal 32.5-35.6 [facility] Comment on above: Performed By: #### C BC, BMP #### [address] Monocytes (Bld) [#/Vol] 0.6 10*3/uL Normal 0.0-0.8 [facility] Comment on above: Performed By: #### C BC, BMP #### [address] Monocytes/100 WBC (Bld) 7.7 % Normal . [facility] Comment on above: Performed By: #### C BC, BMP #### [address] Neutrophils (Bld) [#/Vol] 5.9 10*3/uL Normal 1.8-7.7 [facility] Comment on above: Performed By: #### C BC, BMP #### [address] Neutrophils/100 WBC (Bld) 74.1 % Normal . [facility] Comment on above: Performed By: #### C BC, BMP #### [address] NRBC% 0.4 /100{WBC} Normal 0-0.5 [facility] Comment on above: Performed By: #### C NOLVIA, BMP #### [address] Platelet mean volume (Bld) [Entitic vol] 6.7 fL Normal 6.6-10.1 [facility] Comment on above: Performed By: #### C NOLVIA, BMP #### [address] Platelets (Bld) [#/Vol] 201 10*3/uL Normal 150-450 [facility] Comment on above: Performed By: #### C NOLVIA, BMP #### [address] RBC (Bld) [#/Vol] 3.49 10*6/uL Low 3.90-5.60 [facility] Comment on above: Performed By: #### C NOLVIA, BMP #### [address] WBC (Bld) [#/Vol] 8.0 10*3/uL Normal 4.1-10.5 [facility] Comment on above: Performed By: #### C NOLVIA, BMP #### [address] Cortisolon 06-28-2022 Cortisol 11.0 ug/dL Normal [facility] Comment on above: Result Comment: Refe rence range: AM 6 - 24 ug/dl PM <10 ug/dl PERFORMED BY: [place] [address] PATHOLOGIST [employer] SAMANTHA ROTH M.D. Performed By: #### C ORT, TSH3 #### [address] No Panel InformationOrdered By: Sofia Mcmullen on 06-28-2022 Urine Osmolality 346 mosm 250-[address] [facility] Osmolality, Urineon 06-29-19 23 Osmolality, Urine 346 mosm Normal 250-900 [facility] Comment on above: Result Comment: PERF ORMED BY: [facility] [address] [place] [address] PATHOLOGIST [employer] SAMANTHA ROTH M.D. Performed By: #### C ORT, TSH3 #### [address] PRBC LEUKOREDUCEDon 06-29-19 ABO and Rh group Nom (Bld) Cross Match Result Compatible Unit Blood Type O Pos Unit Number [id number] Status Information Transfused Product ID Red Blood Cells Product Code [id number] Cross Match Result Compatible Unit Blood Type O Pos Unit Number [id number] Status Information Transfused Product ID Red Blood Cells Product Code [id number] [facility] Comment on above: Performed By: #### P RBC #### [facility] [address] [place] [address] Dr. Derek Feldman ABO and Rh group Nom (Bld) Cross Match Result Compatible Unit Blood Type A Pos Unit Number [id number] Status Information Released Specimen Exp Date [id number] Product ID Red Blood Cells Product Code [id number] Cross Match Result Compatible Blood Bank Notes CALLED JUNIOR JON RN ON [facility] AT 1005-MI Unit Blood Type O Neg Unit Number [id number] Status Information Transfused Product ID Red Blood Cells Product Code [id number] [facility] Comment on above: Performed By: #### C BC #### [facility] [address] [address] [address] Derek Feldman ABO and Rh group Nom (Bld) Cross Match Result Compatible Unit Blood Type A Pos Unit Number [id number] Status Information Transfused Product ID Red Blood Cells Product Code [id number] Cross Match Result Compatible Unit Blood Type A Pos Unit Number [id number] Status Information Transfused Product ID Red Blood Cells Product Code [id number] [facility] Comment on above: Performed By: #### C BC #### [facility] [address] [place] [address] Dr. Derek Feldman Random cortisol measurementO rdered By: Sofia Mcmullen on 06-28-2022 Cortisol [Mass/Vol] 11.0 ug/dL [facility] Comment on above: Reference range: AM 6 - 24 ug/dl PM <10 ug/dl Sodium [Moles/volume] in Uri neOrdered By: Sofia Mcmullen on 06-28-2022 Sodium (U) [Moles/Vol] 94.0 mmol/L [facility] Comment on above: No reference range e stablished Sodium, Urineon 06-28-2022 Sodium (U) [Moles/Vol] 94.0 mmol/L Normal [facility] Comment on above: Result Comment: No r eference range established PERFORMED BY: [place] [address] PATHOLOGIST [employer] SAMANTHA ROTH M.D. Performed By: #### C ORT, TSH3 #### [address] Thyroid Stimulating Hormoneo n 06-28-2022 TSH Qn 2.23 m[IU]/L Normal 0.45-5.33 [facility] Comment on above: Performed By: #### C ORT, TSH3 #### [address] Thyrotropin [Units/volume] i n Serum or PlasmaOrdered By: Sofia Mcmullen on 06-28-2022 TSH Qn 2.23 m[IU]/L 0.45-5.33 [facility] Activated partial thrombopla stin time (aPTT) in platelet poor plasma by coagulation aOrdered By: Chao Curiel on 06-27-2022 aPTT Coag (PPP) [Time] 24.6 s 25.1-36.5 [facility] Basic Metabolic Panelon 06-13 Anion gap [Moles/Vol] 7.1 mmol/L Normal 6.0-15.0 [facility] Comment on above: Performed By: #### B MP, CBC #### [facility] [address] [place] [address] [place] Calcium [Mass/Vol] 8.2 mg/dL Low 8.6-10.3 [facility] Comment on above: Performed By: #### B MP, CBC #### [facility] [address] [place] [address] [place] Chloride [Moles/Vol] 108 mmol/L High 98-107 [facility] Comment on above: Performed By: #### B MP, CBC #### [facility] [address] [place] [address] [place] CO2 [Moles/Vol] 21.6 mmol/L Normal 21.0-31.[address] [facility] Comment on above: Performed By: #### B MP, CBC #### [facility] [address] [place] [address] [place] Creatinine [Mass/Vol] 0.82 mg/dL Normal 0.70-1.30 [facility] Comment on above: Performed By: #### B MP, CBC #### [facility] [address] [place] [address] [place] Creatinine Clr Calc Pharmacy 100.94 [facility] Comment on above: Result Comment: PERF ORMED BY: [place] [address] PATHOLOGIST [employer] SAMANTHA ROTH M.D. Performed By: #### B MP, CBC #### [place] [address] [place] GFR/1.73 sq M.predicted MDRD (S/P/Bld) [Vol rate/Area] mL/min/{1.73_m2} Normal [facility] Comment on above: Performed By: #### B MP, CBC #### [facility] [address] [place] [address] [place] Glucose [Mass/Vol] 97 mg/dL Normal 70-100 [facility] Comment on above: Result Comment: [facility] Glucose Reference Range is dependent on time and content of last meal. Glucose of more than 200 mg/dL in a nonstressed, ambulatory subject supports the diagnosis of Diabetes Mellitus. ADA recommended reference range Performed By: #### B MP, CBC #### [facility] [address] [place] [address] [place] Potassium [Moles/Vol] 4.7 mmol/L Normal 3.5-5.1 [facility] Comment on above: Performed By: #### B MP, CBC #### [address] Sodium [Moles/Vol] 132 mmol/L Low 136-145 [facility] Comment on above: Performed By: #### B MP, CBC #### [facility] [address] Urea nitrogen [Mass/Vol] 9 mg/dL Normal 7-25 [facility] Comment on above: Performed By: #### B MP, CBC #### [address] Coagulation Profileon 2022 aPTT Coag (Bld) [Time] 24.6 s Low 25.1-36.5 [facility] Comment on above: Result Comment: PERF ORMED BY: [place] [address] PATHOLOGIST [employer] SAMANTHA ROTH M.D. Performed By: #### P P #### [address] INR Coag (PPP) [Relative time] 1.0 {INR} Normal [facility] Comment on above: Result Comment: INR Therapeutic Range A) Pre- and Peroperative OAT started two weeks before surgery. NOT HIP SURGERY: 1.5 - 2.5 HIP SURGERY: 2 - 3 B) Primary and secondary prevention of venous THROMBOSIS: 2 - 3 C) Active venous thrombosis, pulmonary embolism and prevention of recurrent venous thrombosis: 2 - 3 D) Prevention of arterial thromboembolism including patients with mechanical heart valves: 3 - 4.5 Performed By: #### P P #### [address] PT Coag (PPP) [Time] 11.9 s Normal 9.0-12.9 [facility] Comment on above: Performed By: #### P P #### [address] Complete Blood Count Auto Di ffon 06-27-2022 Basophils (Bld) [#/Vol] 0.0 10*3/uL Normal 0.0-0.2 [facility] Comment on above: Result Comment: PERF ORMED BY: [place] [address] PATHOLOGIST [employer] SAMANTHA ROTH M.D. Performed By: #### B MP, CBC #### [address] Basophils/100 WBC (Bld) 0.6 % Normal . [facility] Comment on above: Performed By: #### B MP, CBC #### [address] Eosinophils (Bld) [#/Vol] 0.1 10*3/uL Normal 0.0-0.45 [facility] Comment on above: Performed By: #### B MP, CBC #### [address] Eosinophils/100 WBC (Bld) 2.0 % Normal . [facility] Comment on above: Performed By: #### B MP, CBC #### [address] Erythrocyte distribution width (RBC) [Ratio] 17.9 % High 12.0-14.8 [facility] Comment on above: Performed By: #### B MP, CBC #### [address] Hematocrit (Bld) [Volume fraction] 24.4 % Low 38.8-50.0 [facility] Comment on above: Performed By: #### B MP, CBC #### [address] Hemoglobin (Bld) [Mass/Vol] 8.0 g/dL Low 13.0-17.0 [facility] Comment on above: Performed By: #### B MP, CBC #### [address] Lymphocytes (Bld) [#/Vol] 1.4 10*3/uL Normal 1.00-4.8 [facility] Comment on above: Performed By: #### B MP, CBC #### [facility] [address] Lymphocytes/100 WBC (Bld) 20.5 % Normal . [facility] Comment on above: Performed By: #### B MP, CBC #### [facility] [address] MCH (RBC) [Entitic mass] 27.7 pg Normal 27.5-35.2 [facility] Comment on above: Performed By: #### B MP, CBC #### [facility] [address] MCV (RBC) [Entitic vol] 84.6 fL Normal 83.5-101 [facility] Comment on above: Performed By: #### B MP, CBC #### [facility] [address] Mean Corpuscular HGB Conc 32.7 g/dL Normal 32.5-35.6 [facility] Comment on above: Performed By: #### B MP, CBC #### [facility] [address] [place] [address] [place] Monocytes (Bld) [#/Vol] 0.6 10*3/uL Normal 0.0-0.8 [facility] Comment on above: Performed By: #### B MP, CBC #### [facility] [address] [place] [address] [place] Monocytes/100 WBC (Bld) 9.4 % Normal . [facility] Comment on above: Performed By: #### B MP, CBC #### [facility] [address] [place] [address] [place] Neutrophils (Bld) [#/Vol] 4.5 10*3/uL Normal 1.8-7.7 [facility] Comment on above: Performed By: #### B MP, CBC #### [facility] [address] Neutrophils/100 WBC (Bld) 67.5 % Normal . [facility] Comment on above: Performed By: #### B MP, CBC #### [facility] [address] NRBC% 0.1 /100{WBC} Normal 0-0.5 [facility] Comment on above: Performed By: #### B MP, CBC #### [facility] [address] Platelet mean volume (Bld) [Entitic vol] 6.2 fL Low 6.6-10.1 [facility] Comment on above: Performed By: #### B MP, CBC #### [address] Platelets (Bld) [#/Vol] 221 10*3/uL Normal 150-450 [facility] Comment on above: Performed By: #### B MP, CBC #### [address] RBC (Bld) [#/Vol] 2.88 10*6/uL Low 3.90-5.60 [facility] Comment on above: Performed By: #### B MP, CBC #### [address] WBC (Bld) [#/Vol] 6.6 10*3/uL Normal 4.1-10.5 [facility] Comment on above: Performed By: #### B MP, CBC #### [address] Laboratory - CoagulationOrde red By: Chao Curiel on 06-27-2022 PT Coag (PPP) [Time] 11.9 s 9.0-12.9 [facility] Platelet poor plasma interna tional normalized ratio (INR) by coagulation assay (relatOrdered By: Chao Curiel on 06-27-2022 INR Coag (PPP) [Relative time] 1.0 {INR} [facility] Comment on above: INR Therapeutic Rang e A) Pre- and Peroperative OAT started two weeks before surgery. NOT HIP SURGERY: 1.5 - 2.5 HIP SURGERY: 2 - 3B) Primary and secondary prevention of venous THROMBOSIS: 2 - 3C) Active venous thrombosis, pulmonary embolismand prevention of recurrent venous thrombosis: 2 - 3D) Prevention of arterial thromboembolismincluding patients with mechanical heart valves: 3 - 4.5 Basic Metabolic Panelon 06-13 Anion gap [Moles/Vol] 6.9 mmol/L Normal 6.0-15.0 [facility] Comment on above: Performed By: #### C ORT, TSH3 #### [facility] [address] Calcium [Mass/Vol] 8.5 mg/dL Low 8.6-10.3 [facility] Comment on above: Performed By: #### C ORT, TSH3 #### [facility] [address] Chloride [Moles/Vol] 106 mmol/L Normal 98-107 [facility] Comment on above: Performed By: #### C ORT, TSH3 #### [facility] [address] CO2 [Moles/Vol] 23.5 mmol/L Normal 21.0-31.[address] [facility] Comment on above: Performed By: #### C ORT, TSH3 #### [facility] [address] [place] [address] [place] Creatinine [Mass/Vol] 0.87 mg/dL Normal 0.70-1.30 [facility] Comment on above: Performed By: #### C ORT, TSH3 #### [facility] [address] [place] [address] [place] Creatinine Clr Calc Pharmacy 95.14 Normal [facility] Comment on above: Result Comment: PERF ORMED BY: [place] [address] PATHOLOGIST [employer] SAMANTHA ROTH M.D. Performed By: #### C ORT, TSH3 #### [facility] [address] [place] [address] [place] GFR/1.73 sq M.predicted MDRD (S/P/Bld) [Vol rate/Area] mL/min/{1.73_m2} [facility] Comment on above: Performed By: #### C ORT, TSH3 #### [facility] [address] Glucose [Mass/Vol] 109 mg/dL High 70-100 [facility] Comment on above: Result Comment: [facility] Glucose Reference Range is dependent on time and content of last meal. Glucose of more than 200 mg/dL in a nonstressed, ambulatory subject supports the diagnosis of Diabetes Mellitus. ADA recommended reference range Performed By: #### C ORT, TSH3 #### [facility] [address] Potassium [Moles/Vol] 4.4 mmol/L Normal 3.5-5.1 [facility] Comment on above: Performed By: #### C ORT, TSH3 #### [facility] [address] Sodium [Moles/Vol] 132 mmol/L Low 136-145 [facility] Comment on above: Performed By: #### C ORT, TSH3 #### [place] [address] [place] Urea nitrogen [Mass/Vol] 9 mg/dL Normal 7-25 [facility] Comment on above: Performed By: #### C ORT, TSH3 #### [address] Complete Blood Count Auto Di ffon 06-26-2022 Basophils (Bld) [#/Vol] 0.0 10*3/uL Normal 0.0-0.2 [facility] Comment on above: Result Comment: PERF ORMED BY: [place] [address] PATHOLOGIST [employer] SAMANTHA ROTH M.D. Performed By: #### B MP, CBC #### [facility] [address] [place] [address] [place] Basophils/100 WBC (Bld) 0.6 % Normal . [facility] Comment on above: Performed By: #### B MP, CBC #### [facility] [address] [place] [address] Eosinophils (Bld) [#/Vol] 0.1 10*3/uL Normal 0.0-0.45 [facility] Comment on above: Performed By: #### B MP, CBC #### [address] Eosinophils/100 WBC (Bld) 1.8 % Normal . [facility] Comment on above: Performed By: #### B MP, CBC #### [address] Erythrocyte distribution width (RBC) [Ratio] 17.8 % High 12.0-14.8 [facility] Comment on above: Performed By: #### B MP, CBC #### [address] Hematocrit (Bld) [Volume fraction] 22.7 % Low 38.8-50.0 [facility] Comment on above: Performed By: #### B MP, CBC #### [address] Hemoglobin (Bld) [Mass/Vol] 7.5 g/dL Low 13.0-17.0 [facility] Comment on above: Performed By: #### B MP, CBC #### [address] Lymphocytes (Bld) [#/Vol] 1.3 10*3/uL Normal 1.00-4.8 [facility] Comment on above: Performed By: #### B MP, CBC #### [address] Lymphocytes/100 WBC (Bld) 18.4 % Normal . [facility] Comment on above: Performed By: #### B MP, CBC #### [address] MCH (RBC) [Entitic mass] 27.4 pg Low 27.5-35.2 [facility] Comment on above: Performed By: #### B MP, CBC #### [address] MCV (RBC) [Entitic vol] 82.7 fL Low 83.5-101 [facility] Comment on above: Performed By: #### B MP, CBC #### [address] Mean Corpuscular HGB Conc 33.1 g/dL Normal 32.5-35.6 [facility] Comment on above: Performed By: #### B MP, CBC #### [address] Monocytes (Bld) [#/Vol] 0.6 10*3/uL Normal 0.0-0.8 [facility] Comment on above: Performed By: #### B MP, CBC #### [address] Monocytes/100 WBC (Bld) 9.2 % Normal . [facility] Comment on above: Performed By: #### B MP, CBC #### [address] Neutrophils (Bld) [#/Vol] 4.9 10*3/uL Normal 1.8-7.7 [facility] Comment on above: Performed By: #### B MP, CBC #### [address] Neutrophils/100 WBC (Bld) 70.0 % Normal . [facility] Comment on above: Performed By: #### B MP, CBC #### [address] NRBC% 0.2 /100{WBC} Normal 0-0.5 [facility] Comment on above: Performed By: #### B MP, CBC #### [address] Platelet mean volume (Bld) [Entitic vol] 6.1 fL Low 6.6-10.1 [facility] Comment on above: Performed By: #### B MP, CBC #### [address] Platelets (Bld) [#/Vol] 236 10*3/uL Normal 150-450 [facility] Comment on above: Performed By: #### B MP, CBC #### [facility] [address] RBC (Bld) [#/Vol] 2.75 10*6/uL Low 3.90-5.60 [facility] Comment on above: Performed By: #### B MP, CBC #### [facility] [address] WBC (Bld) [#/Vol] 7.0 10*3/uL Normal 4.1-10.5 [facility] Comment on above: Performed By: #### B MP, CBC #### [facility] [address] [place] [address] Joe 06-26-2022 L ---- Specimen: [id number] Received: 06/26/22 Status: FILOMENA Ramirezorion Num: [id number] Spec Type: Surgical Subm Dr: Alfred Lugo MD Tissues: A Colon Biopsy (ANTRUM BX) B Esophagus Biopsy (ESOPHAGUS BX) Procedures: HE/4, Gross/Micro L4/2, GMS II Dark, H PYLORI, IHC First AB Age/ Patient Sex Location Account Attending Physician Jagruti Esparza 66/M [id number] Stanley Le MD SPEC NUM: [id number] RECD: 06/26/22 STATUS: FILOMENA KAPOOR NUM: [id number] GUS: 06/26/22 [facility] DR: Alfred Lugo MD ENTERED: 06/26/22 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 Addendum Signed (signature on file) Hernandez Rodriguez MD 07/03/22 0946 Specimen: Received: 06/26/22 Status: FILOMENA Kapoor Num: [id number] Spec Type: Surgical Subm Dr: Alfred Lugo MD Tissues: A Colon Biopsy (ANTRUM BX) B Esophagus Biopsy (ESOPHAGUS BX) Procedures: HE/4, Gross/Micro L4/2, GMS II Dark, H PYLORI, IHC First AB Patient: Jagruti Esparza [id number] (Continued) Specimen: Received: 06/26/22 (Continued) Signed (signature on file) Penelope Grissom MD 06/29/22 1708 Specimen: [id number] Received: 06/26/22 Status: FILOMENA Kapoor Num: [id number] Spec Type: Surgical Subm Dr: Alfred Lugo MD Tissues: A Colon Biopsy (ANTRUM BX) B Esophagus Biopsy (ESOPHAGUS BX) Procedures: HE/4, Gross/Micro L4/2, GMS II Dark, H PYLORI, IHC First AB Patient: Jagruti Esparza [id number] (Continued) Specimen: [id number] Received: 06/26/22 (Continued) Pathological Diagnosis A. Stomach, antrum, biopsy: - Chronic gastritis, moderate. - Immunohistochemical stain for Helicobacter pylori is negative. B. Esophagus, biopsy: - Squamous type mucosa, with moderate to severe acute and chronic inflammation, granulation tissue, active ulceration and reactive epithelial changes. - Negative for García?s esophagus (H E stain). - Negative for dysplasia. - Negative for eosinophilic esophagitis. - GMS-F stain is negative for fungal organisms. Note: HSV immunostain is being performed and a separate report will be issued on completion. Clinical Information GI bleed, rule out H. pylori Gross Description A. Received in formalin labeled with the patient's name, number and antral biopsy for H. pylori is one fragment of soft edwards tissue measuring 0.3 x 0.2 x 0.1 cm. Entirely submitted in one cassette labeled A1. B. Received in formalin labeled with the patient's name, number and esophagus biopsy is one fragment of soft edwards tissue measuring 0.2 x 0.2 x 0.1 cm. Entirely submitted in one cassette labeled B1. Microscopic Description A. Two glass slides with H E stained material have been examined. The microscopic findings support the above pathologic diagnosis. B. Two glass slides with H E stained material have been examined. The microscopic findings support the above pathologic diagnosis. Specimen: [id number] Received: 06/26/22 Status: FILOMENA Kapoor Num: [id number] Spec Type: Surgical Subm Dr: Alfred Lugo MD Tissues: A Colon Biopsy (ANTRUM BX) B Esophagus Biopsy (ESOPHAGUS BX) Procedures: HE/4, Gross/Micro L4/2, GMS II Dark, H PYLORI, IHC First AB (more content not included)... Normal [facility] Alanine aminotransferase [En zymatic activity/volume] in Serum or PlasmaOrdered By: Chao Curiel on 06-25-2022 ALT [Catalytic activity/Vol] 9 U/L 7-52 [facility] Albumin [Mass/volume] in Ser um or Plasma by Bromocresol green (BCG) dye binding methoOrdered By: Chao Curiel on 06-25-2022 Albumin BCG dye [Mass/Vol] 2.9 g/dL 3.5-5.7 [facility] Alkaline phosphatase [Enzyma tic activity/volume] in Serum or PlasmaOrdered By: Chao Curiel on 06-25-2022 ALP [Catalytic activity/Vol] 46 U/L 34-104 [facility] Aspartate aminotransferase [ Enzymatic activity/volume] in Serum or PlasmaOrdered By: Chao Curiel on 06-25-2022 AST [Catalytic activity/Vol] 12 U/L 13-39 [facility] Bilirubin.total [Mass/volume ] in Serum or PlasmaOrdered By: Chao Curiel on 06-25-2022 Bilirubin [Mass/Vol] 0.9 mg/dL 0.3-1.0 [facility] CBC AUTO DIFFon 06-25-2022 BASO # 0.0 103/ul Normal 0.0-0.1 [facility] Comment on above: Performed By: #### L ACT #### [facility] [address] [address] [address] Derek Feldman Basophils/100 WBC (Bld) 0.6 % Normal 0.2-2.0 [facility] Comment on above: Performed By: #### L ACT #### [facility] [address] [address] [address] Derek Feldman EO # 0.1 103/ul Normal 0.0-0.7 [facility] Comment on above: Performed By: #### L ACT #### [facility] [address] [address] [address] Derek Feldman Eosinophils/100 WBC (Bld) 1.9 % Normal 0.9-7.0 [facility] Comment on above: Performed By: #### L ACT #### [facility] [address] [address] [address] Derek Feldman Erythrocyte distribution width (RBC) [Ratio] 16.7 % Critically high 11.0-15.0 [facility] Comment on above: Performed By: #### L ACT #### [facility] [address] [address] [address] Derek Feldman Hematocrit (Bld) [Volume fraction] 21.2 % Critically low 42.0-54.0 [facility] Comment on above: Performed By: #### L ACT #### [facility] [address] [address] [address] Derek Feldman Hemoglobin (Bld) [Mass/Vol] 6.7 g/dL Critically low 14.0-18.0 [facility] Comment on above: Performed By: #### L ACT #### [facility] [address] [address] [address] Derek Feldman IG # 0.04 10e3/ul Critically high 0.00-0.03 [facility] Comment on above: Performed By: #### L ACT #### [facility] [address] [address] [address] Derek Feldman IG % 0.6 % Critically high 0.0-0.5 [facility] Comment on above: Performed By: #### L ACT #### [facility] [address] [place] [address] Dr. Derek Feldman LYMPH # 1.2 103/ul Normal 1.2-3.8 [facility] Comment on above: Performed By: #### L ACT #### [facility] [address] [place] [address] Dr. Derek Feldman Lymphocytes/100 WBC (Bld) 17.9 % Critically low 20.5-60.0 [facility] Comment on above: Performed By: #### L ACT #### [facility] [address] [place] [address] Dr. Derek Feldman MANUAL DIFF REQ NO Normal [facility] Comment on above: Performed By: #### L ACT #### [facility] [address] [address] [address] Derek Feldman MCH (RBC) [Entitic mass] 26.4 pg Normal 25.9-34.0 [facility] Comment on above: Performed By: #### L ACT #### [facility] [address] [address] [address] Derek Feldman MCHC (RBC) [Mass/Vol] 31.6 g/dL Normal 29.9-35.2 [facility] Comment on above: Performed By: #### L ACT #### [facility] [id number] Derek Feldman MCV (RBC) [Entitic vol] 83.5 fL Normal 80.0-94.0 [facility] Comment on above: Performed By: #### L ACT #### [facility] [address] [address] [address] Derek Feldman MONO # 0.6 103/ul Normal 0.3-0.8 [facility] Comment on above: Performed By: #### L ACT #### [facility] [address] [address] [address] Derek Feldman Monocytes/100 WBC (Bld) 9.8 % Normal 1.7-12.0 [facility] Comment on above: Performed By: #### L ACT #### [facility] [address] [address] [address] Derek Feldman NEUT # 4.4 103/ul Normal 1.4-6.5 [facility] Comment on above: Performed By: #### L ACT #### [facility] [address] [address] [address] Derek Feldman Neutrophils/100 WBC (Bld) 69.2 % Normal 43.0-75.0 [facility] Comment on above: Performed By: #### L ACT #### [facility] [address] [address] [address] Derek Feldman Platelet mean volume (Bld) [Entitic vol] 8.1 fL Critically low 9.5-13.5 [facility] Comment on above: Performed By: #### L ACT #### [facility] [address] [address] [address] Derek Feldman PLT 235 103/ul Normal 150-450 [facility] Comment on above: Performed By: #### L ACT #### [facility] [id number] Derek Feldman RBC 2.54 106/ul Critically low 4.70-6.10 [facility] Comment on above: Performed By: #### L ACT #### [facility] [address] [address] [address] Derek Feldman WBC 6.4 103/ul Normal 4.0-11.0 [facility] Comment on above: Performed By: #### L ACT #### [facility] [address] [address] [address] Derek Feldman Coagulation Profileon 2022 aPTT Coag (Bld) [Time] s Off scale low 25.1-36.5 [facility] Comment on above: Result Comment: Critical value result called at 1930 on 06/25/22 PERFORMED BY: [place] [address] PATHOLOGIST [employer] SAMANTHA ROTH M.D. Performed By: #### P P, CMP #### [facility] [address] [place] [address] INR Coag (PPP) [Relative time] 1.0 {INR} Normal [facility] Comment on above: Result Comment: INR Therapeutic Range A) Pre- and Peroperative OAT started two weeks before surgery. NOT HIP SURGERY: 1.5 - 2.5 HIP SURGERY: 2 - 3 B) Primary and secondary prevention of venous THROMBOSIS: 2 - 3 C) Active venous thrombosis, pulmonary embolism and prevention of recurrent venous thrombosis: 2 - 3 D) Prevention of arterial thromboembolism including patients with mechanical heart valves: 3 - 4.5 Performed By: #### P P, CMP #### [facility] [address] [place] [address] PT Coag (PPP) [Time] 11.7 s Normal 9.0-12.9 [facility] Comment on above: Performed By: #### P P, CMP #### [facility] [address] [place] [address] Complete Blood Count Auto Di ffon 06-25-2022 Basophils (Bld) [#/Vol] 0.0 10*3/uL Normal 0.0-0.2 [facility] Comment on above: Result Comment: PERF ORMED BY: [place] [address] PATHOLOGIST [employer] SAMANTHA ROTH M.D. Performed By: #### C ORT, TSH3 #### [facility] [address] [place] [address] [place] Basophils/100 WBC (Bld) 0.4 % Normal . [facility] Comment on above: Performed By: #### C ORT, TSH3 #### [facility] [address] Eosinophils (Bld) [#/Vol] 0.0 10*3/uL Normal 0.0-0.45 [facility] Comment on above: Performed By: #### C ORT, TSH3 #### [facility] [address] Eosinophils/100 WBC (Bld) 0.6 % Normal . [facility] Comment on above: Performed By: #### C ORT, TSH3 #### [address] Erythrocyte distribution width (RBC) [Ratio] 17.7 % High 12.0-14.8 [facility] Comment on above: Performed By: #### C ORT, TSH3 #### [address] Hematocrit (Bld) [Volume fraction] 25.5 % Low 38.8-50.0 [facility] Comment on above: Performed By: #### C ORT, TSH3 #### [address] Hemoglobin (Bld) [Mass/Vol] 8.5 g/dL Low 13.0-17.0 [facility] Comment on above: Performed By: #### C ORT, TSH3 #### [facility] [address] [place] [address] [place] Lymphocytes (Bld) [#/Vol] 1.2 10*3/uL Normal 1.00-4.8 [facility] Comment on above: Performed By: #### C ORT, TSH3 #### [facility] [address] [place] [address] [place] Lymphocytes/100 WBC (Bld) 14.4 % Normal . [facility] Comment on above: Performed By: #### C ORT, TSH3 #### [facility] [address] MCH (RBC) [Entitic mass] 27.1 pg Low 27.5-35.2 [facility] Comment on above: Performed By: #### C ORT, TSH3 #### [address] MCV (RBC) [Entitic vol] 81.2 fL Low 83.5-101 [facility] Comment on above: Performed By: #### C ORT, TSH3 #### [address] Mean Corpuscular HGB Conc 33.3 g/dL Normal 32.5-35.6 [facility] Comment on above: Performed By: #### C ORT, TSH3 #### [address] Monocytes (Bld) [#/Vol] 0.8 10*3/uL Normal 0.0-0.8 [facility] Comment on above: Performed By: #### C ORT, TSH3 #### [address] Monocytes/100 WBC (Bld) 10.5 % Normal . [facility] Comment on above: Performed By: #### C ORT, TSH3 #### [address] Neutrophils (Bld) [#/Vol] 6.0 10*3/uL Normal 1.8-7.7 [facility] Comment on above: Performed By: #### C ORT, TSH3 #### [place] [address] [place] Neutrophils/100 WBC (Bld) 74.1 % Normal . [facility] Comment on above: Performed By: #### C ORT, TSH3 #### [address] NRBC% 0.1 /100{WBC} Normal 0-0.5 [facility] Comment on above: Performed By: #### C ORT, TSH3 #### [address] Platelet mean volume (Bld) [Entitic vol] 6.0 fL Low 6.6-10.1 [facility] Comment on above: Performed By: #### C ORT, TSH3 #### [address] Platelets (Bld) [#/Vol] 264 10*3/uL Normal 150-450 [facility] Comment on above: Performed By: #### C ORT, TSH3 #### [address] RBC (Bld) [#/Vol] 3.14 10*6/uL Low 3.90-5.60 [facility] Comment on above: Performed By: #### C ORT, TSH3 #### [address] WBC (Bld) [#/Vol] 8.1 10*3/uL Normal 4.1-10.5 [facility] Comment on above: Performed By: #### C ORNgoc, TSH3 #### [address] Comprehensive Metabolic Pane joe 06-25-2022 Albumin [Mass/Vol] 2.9 g/dL Low 3.5-5.7 [facility] Comment on above: Performed By: #### P P, CMP #### [address] Albumin/Globulin [Mass ratio] 1.5 {ratio} Normal [facility] Comment on above: Performed By: #### P P, CMP #### [address] ALP [Catalytic activity/Vol] 46 U/L Normal 34-104 [facility] Comment on above: Performed By: #### P P, CMP #### [address] ALT [Catalytic activity/Vol] 9 U/L Normal 7-52 [facility] Comment on above: Performed By: #### P P, CMP #### [facility] [address] Anion gap [Moles/Vol] 8.0 mmol/L Normal 6.0-15.0 [facility] Comment on above: Performed By: #### P P, CMP #### [facility] [address] [place] [address] [place] AST [Catalytic activity/Vol] 12 U/L Low 13-39 [facility] Comment on above: Performed By: #### P P, CMP #### [facility] [address] Bilirubin [Mass/Vol] 0.9 mg/dL Normal 0.3-1.0 [facility] Comment on above: Performed By: #### P P, CMP #### [facility] [address] Calcium [Mass/Vol] 9.2 mg/dL Normal 8.6-10.3 [facility] Comment on above: Performed By: #### P P, CMP #### [facility] [address] Chloride [Moles/Vol] 103 mmol/L Normal 98-107 [facility] Comment on above: Performed By: #### P P, CMP #### [facility] [address] [place] [address] [place] CO2 [Moles/Vol] 22.6 mmol/L Normal 21.0-31.[address] [facility] Comment on above: Performed By: #### P P, CMP #### [facility] [address] [place] [address] [place] Creatinine [Mass/Vol] 0.87 mg/dL Normal 0.70-1.30 [facility] Comment on above: Performed By: #### P P, CMP #### [facility] [address] [place] [address] [place] Creatinine Clr Calc Pharmacy 95.43 Normal [facility] Comment on above: Result Comment: PERF ORMED BY: [place] [address] PATHOLOGIST [employer] SAMANTHA ROTH M.D. Performed By: #### P P, CMP #### [place] [address] [place] GFR/1.73 sq M.predicted MDRD (S/P/Bld) [Vol rate/Area] mL/min/{1.73_m2} [facility] Comment on above: Performed By: #### P P, CMP #### [address] Globulin (S) [Mass/Vol] 1.9 g/dL [facility] Comment on above: Performed By: #### P P, CMP #### [address] Glucose [Mass/Vol] 128 mg/dL High 70-100 [facility] Comment on above: Result Comment: [facility] Glucose Reference Range is dependent on time and content of last meal. Glucose of more than 200 mg/dL in a nonstressed, ambulatory subject supports the diagnosis of Diabetes Mellitus. ADA recommended reference range Performed By: #### P P, CMP #### [address] Potassium [Moles/Vol] 4.6 mmol/L Normal 3.5-5.1 [facility] Comment on above: Performed By: #### P P, CMP #### [place] [address] [place] Protein [Mass/Vol] 4.8 g/dL Low 6.4-8.9 [facility] Comment on above: Performed By: #### P P, CMP #### [place] [address] [place] Sodium [Moles/Vol] 129 mmol/L Low 136-145 [facility] Comment on above: Performed By: #### P P, CMP #### [place] [address] [place] Urea nitrogen [Mass/Vol] 10 mg/dL Normal 7-25 [facility] Comment on above: Performed By: #### P P, CMP #### [facility] [address] Globulin Calc (S) [Mass/Vol] Ordered By: Chao Curiel on 06-25-2022 Globulin (S) [Mass/Vol] 1.9 g/dL [facility] LeukoReduced RBCon 3 LeukoReduced RBC TRANSFUSED 06/27/22 1509 Normal [facility] PROF 14(COMP METB)on 023 Albumin [Mass/Vol] 2.2 g/dL Critically low 3.4-5.0 [facility] Comment on above: Performed By: #### C MP, HSTROPN #### [facility] [address] [address] [address] Derek Feldman Albumin/Globulin [Mass ratio] 1.0 {ratio} Normal [facility] Comment on above: Performed By: #### C KASSI, HSTROPN #### [facility] [address] [address] [address] Derek Feldman ALP [Catalytic activity/Vol] 50 U/L Normal 46-116 [facility] Comment on above: Performed By: #### C KASSI, HSTROPN #### [facility] [address] [address] [address] Derek Feldman ALT [Catalytic activity/Vol] 16 U/L Normal 16-63 [facility] Comment on above: Performed By: #### C KASSI, HSTROPN #### [facility] [address] [address] [address] Derek Feldman Anion gap [Moles/Vol] 9.5 mmol/L Normal [facility] Comment on above: Performed By: #### C MP, HSTROPN #### [facility] [address] [address] [address] Derek Feldman AST [Catalytic activity/Vol] 14 U/L Critically low 15-37 [facility] Comment on above: Performed By: #### C MP, HSTROPN #### [facility] [address] [address] [address] Derek Feldman Bilirubin [Mass/Vol] 1.3 mg/dL Critically high 0.2-1.0 [facility] Comment on above: Performed By: #### C MP, HSTROPN #### [facility] [address] [place] [address] Dr. Derek Feldman Calcium [Mass/Vol] 8.9 mg/dL Normal 8.5-10.1 [facility] Comment on above: Performed By: #### C MP, HSTROPN #### [facility] [address] [place] [address] Dr. Derek Feldman Chloride [Moles/Vol] 105 mmol/L Normal 98-107 [facility] Comment on above: Performed By: #### C MP, HSTROPN #### [facility] [address] [place] [address] Dr. Derek Feldman CO2 [Moles/Vol] 24.9 mmol/L Normal 21.0-32.0 [facility] Comment on above: Performed By: #### C MP, HSTROPN #### [facility] [address] [place] [address] Dr. Derek Feldman Creatinine [Mass/Vol] 0.98 mg/dL Normal 0.70-1.30 [facility] Comment on above: Performed By: #### C MP, HSTROPN #### [facility] [address] [place] [address] Dr. Derek Feldman EGFR-AF BELIZEAN >60 Normal >=60 [facility] Comment on above: Performed By: #### C MP, HSTROPN #### [facility] [address] [place] [address] Dr. Derek Feldman EGFR-NON AF BELIZEAN >60 Normal >=60 [facility] Comment on above: Performed By: #### C MP, HSTROPN #### [facility] [address] [place] [address] Dr. Derek Feldman Globulin (S) [Mass/Vol] 2.3 g/dL Normal [facility] Comment on above: Performed By: #### C MP, HSTROPN #### [facility] [address] [address] [address] Derek Feldman Glucose [Mass/Vol] 110 mg/dL Critically high 74-106 [facility] Comment on above: Performed By: #### C MP, HSTROPN #### [facility] [address] [place] [address] Dr. Derek Feldman Potassium [Moles/Vol] 4.4 mmol/L Normal 3.5-5.1 [facility] Comment on above: Performed By: #### C MP, HSTROPN #### [facility] [address] [place] [address] Dr. Derek Feldman Protein [Mass/Vol] 4.5 g/dL Critically low 6.4-8.2 [facility] Comment on above: Performed By: #### C KASSI, HSTROPN #### [facility] [address] [place] [address] Dr. Derek Feldman Sodium [Moles/Vol] 135 mmol/L Critically low 136-145 [facility] Comment on above: Performed By: #### C KASSI, HSTROPN #### [facility] [address] [place] [address] Dr. Derek Feldman Urea nitrogen [Mass/Vol] 9.0 mg/dL Normal 7.0-18.0 [facility] Comment on above: Performed By: #### C KASSI, HSTROPN #### [facility] [address] [place] [address] Dr. Derek Feldman Urea nitrogen/Creatinine [Mass ratio] 9.2 mg/mg Normal [facility] Comment on above: Performed By: #### C KASSI, HSTROPN #### [facility] [address] [place] [address] Dr. Derek Feldman Protein [Mass/volume] in Ser um or PlasmaOrdered By: Chao Curiel on 06-25-2022 Protein [Mass/Vol] 4.8 g/dL 6.4-8.9 [facility] Serum or plasma albumin/glob ulin mass ratioOrdered By: Chao Curiel on 06-25-2022 Albumin/Globulin [Mass ratio] 1.5 {ratio} [facility] Type and Screenon 06-25-2022 ABO and Rh group Nom (Bld) Blood group A Rh(D) positive Normal [facility] Comment on above: Order Comment: Trans fuse now? Y Number of units to transfuse now? 1 Transfuse now? Y Number of units to transfuse now? 1 Transfuse now? Y Number of units to transfuse now? 2 CBC AUTO DIFFon 06-24-2022 BASO # 0.0 103/ul Normal 0.0-0.1 [facility] Comment on above: Performed By: #### C BC #### [facility] [address] [place] [address] Dr. Derek Feldman Basophils/100 WBC (Bld) 0.3 % Normal 0.2-2.0 [facility] Comment on above: Performed By: #### C BC #### [facility] [address] [place] [address] Dr. Derek Feldman EO # 0.0 103/ul Normal 0.0-0.7 [facility] Comment on above: Performed By: #### C BC #### [facility] [address] [place] [address] Dr. Derek Feldman Eosinophils/100 WBC (Bld) 0.2 % Critically low 0.9-7.0 [facility] Comment on above: Performed By: #### C BC #### [facility] [address] [place] [address] Dr. Derek Feldman Erythrocyte distribution width (RBC) [Ratio] 17.3 % Critically high 11.0-15.0 [facility] Comment on above: Performed By: #### C BC #### [facility] [address] [place] [address] Dr. Derek Feldman Hematocrit (Bld) [Volume fraction] 17.9 % Critically low 42.0-54.0 [facility] Comment on above: Performed By: #### C BC #### [facility] [address] [place] [address] Dr. Derek Feldman Hemoglobin (Bld) [Mass/Vol] 5.9 g/dL Critically low 14.0-18.0 [facility] Comment on above: Performed By: #### C BC #### [facility] [address] [place] [address] Dr. Derek Feldman IG # 0.06 10e3/ul Critically high 0.00-0.03 [facility] Comment on above: Performed By: #### C BC #### [facility] [address] [place] [address] Dr. Derek Feldman IG % 0.7 % Critically high 0.0-0.5 [facility] Comment on above: Performed By: #### C BC #### [facility] [address] [place] [address] Dr. Derek Feldman LYMPH # 0.7 103/ul Critically low 1.2-3.8 [facility] Comment on above: Performed By: #### C BC #### [facility] [address] [place] [address] Dr. Derek Feldman Lymphocytes/100 WBC (Bld) 8.2 % Critically low 20.5-60.0 [facility] Comment on above: Performed By: #### C BC #### [facility] [address] [place] [address] Dr. Derek Feldman MANUAL DIFF REQ NO Normal [facility] Comment on above: Performed By: #### C BC #### [facility] [address] [place] [address] Dr. Derek Feldman MCH (RBC) [Entitic mass] 26.7 pg Normal 25.9-34.0 [facility] Comment on above: Performed By: #### C BC #### [facility] [address] [place] [address] Dr. Derek Feldman MCHC (RBC) [Mass/Vol] 33.0 g/dL Normal 29.9-35.2 [facility] Comment on above: Performed By: #### C BC #### [facility] [address] [place] [address] Dr. Derek Feldman MCV (RBC) [Entitic vol] 81.0 fL Normal 80.0-94.0 [facility] Comment on above: Performed By: #### C BC #### [facility] [address] [place] [address] Dr. Derek Feldman MONO # 0.6 103/ul Normal 0.3-0.8 [facility] Comment on above: Performed By: #### C BC #### [facility] [address] [place] [address] Dr. Derek Feldman Monocytes/100 WBC (Bld) 6.7 % Normal 1.7-12.0 [facility] Comment on above: Performed By: #### C BC #### [facility] [address] [place] [address] Dr. Derek Feldman NEUT # 7.4 103/ul Critically high 1.4-6.5 [facility] Comment on above: Performed By: #### C BC #### [facility] [address] [place] [address] Dr. Derek Feldman Neutrophils/100 WBC (Bld) 83.9 % Critically high 43.0-75.0 [facility] Comment on above: Performed By: #### C BC #### [facility] [address] [place] [address] Dr. Derek Feldman Platelet mean volume (Bld) [Entitic vol] 8.7 fL Critically low 9.5-13.5 [facility] Comment on above: Performed By: #### C BC #### [facility] [address] [place] [address] Dr. Derek Feldman PLT 309 103/ul Normal 150-450 [facility] Comment on above: Performed By: #### C BC #### [facility] [address] [place] [address] Dr. Derek Feldman RBC 2.21 106/ul Critically low 4.70-6.10 [facility] Comment on above: Performed By: #### C BC #### [facility] [address] [place] [address] Dr. Derek Feldman WBC 8.9 103/ul Normal 4.0-11.0 [facility] Comment on above: Performed By: #### C BC #### [facility] [address] [place] [address] Dr. Derek Feldman Covid-19 PCR ([facility])on 06-13 SARS-CoV-2 (COVID-19) RNA YOMAIRA+probe Ql (Unsp spec) Not detected Normal NOT DETECTED [facility] Comment on above: Result Comment: When diagnostic testing is negative, the possibility of a false negative should be considered in the context of a patient's recent exposures and the presence of clinical signs and symptoms consistent with SARS-CoV-2. This test is not yet approved or cleared by the [place] FDA. When there are no FDA-approved or cleared tests available, and other criteria are met, FDA can make tests available under an emergency access mechanism called an Emergency Use Authorization (EUA). The EUA for this test is supported by the [place] of Health and Human Service's declaration that circumstances exist to justify the emergency use of in vitro diagnostics for the detection and/or diagnosis of the virus that causes COVID-19. This EUA will remain in effect for the duration of the COVID-19 declaration justifying emergency of IVDs, unless it is terminated or revoked by the FDA (after which the test may no longer be used). Performed By: #### O BSCRN #### [facility] [address] [place] [address] Dr. Derek Feldman LACTATE/LACTIC ACIDon 2022 Lactate [Moles/Vol] 2.8 mmol/L Critically high 0.4-2.0 [facility] Comment on above: Performed By: #### B MP #### [facility] [address] [place] [address] Dr. Derek Feldman OCC BLD IMMUNO SCREENon 06-13 OCCULT BLOOD Positive Abnormal NEGATIVE [facility] Comment on above: Performed By: #### O BSCRN #### [facility] [address] [place] [address] Dr. Derek Feldman PROF 14(COMP METB)on 023 Albumin [Mass/Vol] 2.5 g/dL Critically low 3.4-5.0 [facility] Comment on above: Performed By: #### C MP, HSTROPN #### [facility] [address] [address] [address] Derek Feldman Albumin/Globulin [Mass ratio] 1.0 {ratio} Normal [facility] Comment on above: Performed By: #### C MP, HSTROPN #### [facility] [address] [address] [address] Derek Feldman ALP [Catalytic activity/Vol] 56 U/L Normal 46-116 [facility] Comment on above: Performed By: #### C MP, HSTROPN #### [facility] [address] [address] [address] Derek Feldman ALT [Catalytic activity/Vol] 17 U/L Normal 16-63 [facility] Comment on above: Performed By: #### C MP, HSTROPN #### [facility] [address] [address] [address] Derek Feldman Anion gap [Moles/Vol] 13.3 mmol/L Normal [facility] Comment on above: Performed By: #### C MP, HSTROPN #### [facility] [address] [address] [address] Derek Feldman AST [Catalytic activity/Vol] 12 U/L Critically low 15-37 [facility] Comment on above: Performed By: #### C MP, HSTROPN #### [facility] [address] [address] [address] Derek Feldman Bilirubin [Mass/Vol] 0.5 mg/dL Normal 0.2-1.0 [facility] Comment on above: Performed By: #### C MP, HSTROPN #### [facility] [address] [address] [address] Derek Feldman Calcium [Mass/Vol] 9.5 mg/dL Normal 8.5-10.1 [facility] Comment on above: Performed By: #### C MP, HSTROPN #### [facility] [address] [address] [address] Derek Feldman Chloride [Moles/Vol] 100 mmol/L Normal 98-107 [facility] Comment on above: Performed By: #### C KASSI, HSTROPN #### [facility] [address] [address] [address] Derek Feldman CO2 [Moles/Vol] 23.5 mmol/L Normal 21.0-32.0 [facility] Comment on above: Performed By: #### C KASSI, HSTROPN #### [facility] [address] [address] [address] Derek Feldman Creatinine [Mass/Vol] 1.08 mg/dL Normal 0.70-1.30 [facility] Comment on above: Performed By: #### C KASSI, HSTROPN #### [facility] [address] [place] [address] Dr. Derek Feldman EGFR-AF BELIZEAN >60 Normal >=60 [facility] Comment on above: Performed By: #### C KASSI, HSTROPN #### [facility] [address] [place] [address] Dr. Derek Feldman EGFR-NON AF BELIZEAN >60 Normal >=60 [facility] Comment on above: Performed By: #### C KASSI, HSTROPN #### [facility] [address] [place] [address] Dr. Derek Feldman Globulin (S) [Mass/Vol] 2.6 g/dL Normal [facility] Comment on above: Performed By: #### C KASSI, HSTROPN #### [facility] [address] [address] [address] Derek Feldman Glucose [Mass/Vol] 159 mg/dL Critically high 74-106 [facility] Comment on above: Performed By: #### C KASSI, HSTROPN #### [facility] [address] [place] [address] Dr. Derek Feldman Potassium [Moles/Vol] 4.8 mmol/L Normal 3.5-5.1 [facility] Comment on above: Performed By: #### C KASSI, HSTROPN #### [facility] [address] [place] [address] Dr. Derek Feldman Protein [Mass/Vol] 5.1 g/dL Critically low 6.4-8.2 [facility] Comment on above: Performed By: #### C MP, HSTROPN #### [facility] [address] [place] [address] Dr. Derek Feldman Sodium [Moles/Vol] 132 mmol/L Critically low 136-145 [facility] Comment on above: Performed By: #### C MP, HSTROPN #### [facility] [address] [place] [address] Dr. Derek Feldman Urea nitrogen [Mass/Vol] 10.0 mg/dL Normal 7.0-18.0 [facility] Comment on above: Performed By: #### C MP, HSTROPN #### [facility] [address] [place] [address] Dr. Derek Feldman Urea nitrogen/Creatinine [Mass ratio] 9.3 mg/mg Normal [facility] Comment on above: Performed By: #### C MP, HSTROPN #### [facility] [address] [place] [address] Dr. Derek Feldman PROTIMEon 06-24-2022 INR Coag (PPP) [Relative time] 0.97 {INR} Normal [facility] Comment on above: Performed By: #### C BC #### [facility] [address] [place] [address] Dr. Derek Feldman INR GUIDELINES SEE BELOW Normal [facility] Comment on above: Result Comment: LAURA RED INR: 2.0 - 3.0 CONDITIONS NOT LISTED BELOW 2.5 - 3.5 FOR PROSTHETIC HEART VALVE REPLACEMENT 2.5 - 3.5 RECURRENT THROMBOSIS Performed By: #### C BC #### [facility] [address] [place] [address] Dr. Derek Feldman PT Coag (PPP) [Time] 10.3 s Normal 9.0-11.6 [facility] Comment on above: Performed By: #### C BC #### [facility] [address] [place] [address] Dr. Derek Feldman PTTon 06-24-2022 aPTT Coag (Bld) [Time] 20.0 s Critically low 22.3-36.2 [facility] Comment on above: Performed By: #### C BC #### [facility] [address] [place] [address] Dr. Derek Feldman TROPONIN, HIGH SENSITIVITYon 06-24-2022 HSTROP 72.9 pg/mL Normal 4.0-76.1 [facility] Comment on above: Result Comment: CUT- OFF POINTS HAVE BEEN ESTABLISHED BASED ON THE FOURTH UNIVERSAL DEFINITIONS OF MYOCARDIAL INFARCTION. THE UPPER REFERENCE LIMIT (URL) OF TROPONIN, DEFINED THE 99TH PERCENTILE OF cTnI DISTRIBUTION IN A REFERENCE POPULATION, HAS BEEN CONFIRMED THE DECISION THRESHOLD FOR ND DIAGNOSIS. Performed By: #### C MP, HSTROPN #### [facility] [address] [place] [address] Dr. Derek Feldman TYPE AND SCREENon 06-24-2022 TYPE AND SCREEN Negative Normal [facility] Comment on above: Performed By: #### C BC #### [facility] [address] [place] [address] Dr. Derek Feldman CBC AUTO DIFFon 06-19-2022 BASO # 0.0 103/ul Normal 0.0-0.1 [facility] Comment on above: Performed By: #### B MP #### [facility] [address] [place] [address] Dr. Derek Feldman Basophils/100 WBC (Bld) 0.3 % Normal 0.2-2.0 [facility] Comment on above: Performed By: #### B MP #### [facility] [address] [place] [address] Dr. Derek Feldman EO # 0.0 103/ul Normal 0.0-0.7 [facility] Comment on above: Performed By: #### B MP #### [facility] [address] [place] [address] Dr. Derek Feldman Eosinophils/100 WBC (Bld) 0.3 % Critically low 0.9-7.0 [facility] Comment on above: Performed By: #### B MP #### [facility] [address] [place] [address] Dr. Derek Feldman Erythrocyte distribution width (RBC) [Ratio] 16.7 % Critically high 11.0-15.0 [facility] Comment on above: Performed By: #### B MP #### [facility] [address] [place] [address] Dr. Derek Feldman Hematocrit (Bld) [Volume fraction] 26.2 % Critically low 42.0-54.0 [facility] Comment on above: Performed By: #### B MP #### [facility] [address] [place] [address] Dr. Derek Feldman Hemoglobin (Bld) [Mass/Vol] 8.9 g/dL Critically low 14.0-18.0 [facility] Comment on above: Performed By: #### B MP #### [facility] [address] [place] [address] Dr. Derek Feldman IG # 0.10 10e3/ul Critically high 0.00-0.03 [facility] Comment on above: Performed By: #### B MP #### [facility] [address] [place] [address] Dr. Derek Feldman IG % 0.9 % Critically high 0.0-0.5 [facility] Comment on above: Performed By: #### B MP #### [facility] [address] [place] [address] Dr. Derek Feldman LYMPH # 2.5 103/ul Normal 1.2-3.8 [facility] Comment on above: Performed By: #### B MP #### [facility] [address] [place] [address] Dr. Derek Feldman Lymphocytes/100 WBC (Bld) 21.8 % Normal 20.5-60.0 [facility] Comment on above: Performed By: #### B MP #### [facility] [address] [place] [address] Dr. Derek Feldman MANUAL DIFF REQ NO Normal [facility] Comment on above: Performed By: #### B MP #### [facility] [address] [place] [address] Dr. Derek Feldman MCH (RBC) [Entitic mass] 26.8 pg Normal 25.9-34.0 [facility] Comment on above: Performed By: #### B MP #### [facility] [address] [address] [address] Derek Feldman MCHC (RBC) [Mass/Vol] 34.0 g/dL Normal 29.9-35.2 [facility] Comment on above: Performed By: #### B MP #### [facility] [address] [address] [address] Derek Feldman MCV (RBC) [Entitic vol] 78.9 fL Critically low 80.0-94.0 [facility] Comment on above: Performed By: #### B MP #### [facility] [address] [address] [address] Derek Feldman MONO # 0.9 103/ul Critically high 0.3-0.8 [facility] Comment on above: Performed By: #### B MP #### [facility] [address] [address] [address] Derek Feldman Monocytes/100 WBC (Bld) 7.4 % Normal 1.7-12.0 [facility] Comment on above: Performed By: #### B MP #### [facility] [address] [address] [address] Derek Feldman NEUT # 8.0 103/ul Critically high 1.4-6.5 [facility] Comment on above: Performed By: #### B MP #### [facility] [address] [address] [address] Derek Feldman Neutrophils/100 WBC (Bld) 69.3 % Normal 43.0-75.0 [facility] Comment on above: Performed By: #### B MP #### [facility] [address] [address] [address] Derek Feldman Platelet mean volume (Bld) [Entitic vol] 8.3 fL Critically low 9.5-13.5 [facility] Comment on above: Performed By: #### B MP #### [facility] [address] [address] [address] Derek Feldman PLT 271 103/ul Normal 150-450 [facility] Comment on above: Performed By: #### B MP #### [facility] [address] [address] [address] Derek Feldman RBC 3.32 106/ul Critically low 4.70-6.10 [facility] Comment on above: Performed By: #### B MP #### [facility] [address] [address] [address] Derek Feldman WBC 11.6 103/ul Critically high 4.0-11.0 [facility] Comment on above: Performed By: #### B MP #### [facility] [address] [place] [address] Dr. Derek Feldman BASO # 0.0 103/ul Normal 0.0-0.1 [facility] Comment on above: Performed By: #### O BSCRN #### [facility] [address] [place] [address] Dr. Derek Feldman Basophils/100 WBC (Bld) 0.4 % Normal 0.2-2.0 [facility] Comment on above: Performed By: #### O BSCRN #### [facility] [address] [place] [address] Dr. Derek Feldman EO # 0.0 103/ul Normal 0.0-0.7 [facility] Comment on above: Performed By: #### O BSCRN #### [facility] [address] [place] [address] Dr. Derek Feldman Eosinophils/100 WBC (Bld) 0.4 % Critically low 0.9-7.0 [facility] Comment on above: Performed By: #### O BSCRN #### [facility] [address] [place] [address] Dr. Derek Feldman Erythrocyte distribution width (RBC) [Ratio] 16.5 % Critically high 11.0-15.0 [facility] Comment on above: Performed By: #### O BSCRN #### [facility] [address] [address] [address] Derek Feldman Hematocrit (Bld) [Volume fraction] 24.2 % Critically low 42.0-54.0 [facility] Comment on above: Performed By: #### O BSCRN #### [facility] [address] [place] [address] Dr. Derek Feldman Hemoglobin (Bld) [Mass/Vol] 8.0 g/dL Critically low 14.0-18.0 [facility] Comment on above: Performed By: #### O BSCRN #### [facility] [address] [place] [address] Dr. Derek Feldman IG # 0.07 10e3/ul Critically high 0.00-0.03 [facility] Comment on above: Performed By: #### O BSCRN #### [facility] [address] [place] [address] Dr. Derek Feldman IG % 0.9 % Critically high 0.0-0.5 [facility] Comment on above: Performed By: #### O BSCRN #### [facility] [address] [place] [address] Dr. Derek Feldman LYMPH # 0.9 103/ul Critically low 1.2-3.8 [facility] Comment on above: Performed By: #### O BSCRN #### [facility] [address] [place] [address] Dr. Derek Feldman Lymphocytes/100 WBC (Bld) 11.4 % Critically low 20.5-60.0 [facility] Comment on above: Performed By: #### O BSCRN #### [facility] [address] [place] [address] Dr. Derek Feldman MANUAL DIFF REQ NO Normal [facility] Comment on above: Performed By: #### O BSCRN #### [facility] [address] [place] [address] Dr. Derek Feldman MCH (RBC) [Entitic mass] 26.3 pg Normal 25.9-34.0 [facility] Comment on above: Performed By: #### O BSCRN #### [facility] [address] [place] [address] Dr. Derek Feldman MCHC (RBC) [Mass/Vol] 33.1 g/dL Normal 29.9-35.2 [facility] Comment on above: Performed By: #### O BSCRN #### [facility] [address] [place] [address] Dr. Derek Feldman MCV (RBC) [Entitic vol] 79.6 fL Critically low 80.0-94.0 [facility] Comment on above: Performed By: #### O BSCRN #### [facility] [address] [place] [address] Dr. Derek Feldman MONO # 0.6 103/ul Normal 0.3-0.8 [facility] Comment on above: Performed By: #### O BSCRN #### [facility] [address] [place] [address] Dr. Derek Feldman Monocytes/100 WBC (Bld) 7.0 % Normal 1.7-12.0 [facility] Comment on above: Performed By: #### O BSCRN #### [facility] [address] [place] [address] Dr. Derek Feldman NEUT # 6.5 103/ul Normal 1.4-6.5 [facility] Comment on above: Performed By: #### O BSCRN #### [facility] [address] [place] [address] Dr. Derek Feldman Neutrophils/100 WBC (Bld) 79.9 % Critically high 43.0-75.0 [facility] Comment on above: Performed By: #### O BSCRN #### [facility] [address] [place] [address] Dr. Derek Feldman Platelet mean volume (Bld) [Entitic vol] 8.1 fL Critically low 9.5-13.5 [facility] Comment on above: Performed By: #### O BSCRN #### [facility] [address] [place] [address] Dr. Derek Feldman PLT 216 103/ul Normal 150-450 [facility] Comment on above: Performed By: #### O BSCRN #### [facility] [address] [address] [address] Derek Feldman RBC 3.04 106/ul Critically low 4.70-6.10 [facility] Comment on above: Performed By: #### O BSCRN #### [facility] [address] [address] [address] Derek Feldman WBC 8.1 103/ul Normal 4.0-11.0 [facility] Comment on above: Performed By: #### O BSCRN #### [facility] [address] [address] [address] Derek Feldman PROF CHEM 8 (BAS METB)on Anion gap [Moles/Vol] 9.1 mmol/L Normal [facility] Comment on above: Performed By: #### B MP #### [facility] [address] [place] [address] Dr. Derek Feldman Calcium [Mass/Vol] 9.7 mg/dL Normal 8.5-10.1 [facility] Comment on above: Performed By: #### B MP #### [facility] [address] [place] [address] Dr. Derek Feldman Chloride [Moles/Vol] 105 mmol/L Normal 98-107 [facility] Comment on above: Performed By: #### B MP #### [facility] [address] [place] [address] Dr. Derek Feldman CO2 [Moles/Vol] 22.3 mmol/L Normal 21.0-32.0 [facility] Comment on above: Performed By: #### B MP #### [facility] [address] [place] [address] Dr. Derek Feldman Creatinine [Mass/Vol] 0.89 mg/dL Normal 0.70-1.30 [facility] Comment on above: Performed By: #### B MP #### [facility] [address] [place] [address] Dr. Derek Feldman EGFR-AF BELIZEAN >60 Normal >=60 [facility] Comment on above: Performed By: #### B MP #### [facility] [address] [address] [address] Derek Feldman EGFR-NON AF BELIZEAN >60 Normal >=60 [facility] Comment on above: Performed By: #### B MP #### [facility] [address] [address] [address] Derek Feldman Glucose [Mass/Vol] 127 mg/dL Critically high 74-106 [facility] Comment on above: Performed By: #### B MP #### [facility] [address] [address] [address] Derek Feldman Potassium [Moles/Vol] 4.4 mmol/L Normal 3.5-5.1 [facility] Comment on above: Performed By: #### B MP #### [facility] [address] [place] [address] Dr. Derek Feldman Sodium [Moles/Vol] 132 mmol/L Critically low 136-145 [facility] Comment on above: Performed By: #### B MP #### [facility] [address] [place] [address] Dr. Derek Feldman Urea nitrogen [Mass/Vol] 11.0 mg/dL Normal 7.0-18.0 [facility] Comment on above: Performed By: #### B MP #### [facility] [address] [place] [address] Dr. Derek Feldman Urea nitrogen/Creatinine [Mass ratio] 12.4 mg/mg Normal [facility] Comment on above: Performed By: #### B MP #### [facility] [address] [place] [address] Dr. Derek Feldman CBC AUTO DIFFon 06-18-2022 BASO # 0.0 103/ul Normal 0.0-0.1 [facility] Comment on above: Performed By: #### B MP #### [facility] [address] [place] [address] Dr. Derek Feldman Basophils/100 WBC (Bld) 0.3 % Normal 0.2-2.0 [facility] Comment on above: Performed By: #### B MP #### [facility] [address] [address] [address] Derek Feldman EO # 0.1 103/ul Normal 0.0-0.7 [facility] Comment on above: Performed By: #### B MP #### [facility] [address] [place] [address] Dr. Derek Feldman Eosinophils/100 WBC (Bld) 0.7 % Critically low 0.9-7.0 [facility] Comment on above: Performed By: #### B MP #### [facility] [address] [place] [address] Dr. Derek Feldman Erythrocyte distribution width (RBC) [Ratio] 16.5 % Critically high 11.0-15.0 [facility] Comment on above: Performed By: #### B MP #### [facility] [address] [place] [address] Dr. Derek Feldman Hematocrit (Bld) [Volume fraction] 22.6 % Critically low 42.0-54.0 [facility] Comment on above: Performed By: #### B MP #### [facility] [address] [place] [address] Dr. Derek Feldman Hemoglobin (Bld) [Mass/Vol] 7.3 g/dL Critically low 14.0-18.0 [facility] Comment on above: Performed By: #### B MP #### [facility] [address] [place] [address] Dr. Derek Feldman IG # 0.04 10e3/ul Critically high 0.00-0.03 [facility] Comment on above: Performed By: #### B MP #### [facility] [address] [place] [address] Dr. Derek Feldman IG % 0.6 % Critically high 0.0-0.5 [facility] Comment on above: Performed By: #### B MP #### [facility] [address] [place] [address] Dr. Derek Feldman LYMPH # 1.9 103/ul Normal 1.2-3.8 [facility] Comment on above: Performed By: #### B MP #### [facility] [address] [address] [address] Derek Feldman Lymphocytes/100 WBC (Bld) 28.0 % Normal 20.5-60.0 [facility] Comment on above: Performed By: #### B MP #### [facility] [address] [address] [address] Derek Feldman MANUAL DIFF REQ NO Normal [facility] Comment on above: Performed By: #### B MP #### [facility] [address] [address] [address] Derek Feldman MCH (RBC) [Entitic mass] 25.8 pg Critically low 25.9-34.0 [facility] Comment on above: Performed By: #### B MP #### [facility] [address] [place] [address] Dr. Derek Feldman MCHC (RBC) [Mass/Vol] 32.3 g/dL Normal 29.9-35.2 [facility] Comment on above: Performed By: #### B MP #### [facility] [address] [place] [address] Dr. Derek Feldman MCV (RBC) [Entitic vol] 79.9 fL Critically low 80.0-94.0 [facility] Comment on above: Performed By: #### B MP #### [facility] [address] [place] [address] Dr. Derek Feldman MONO # 0.7 103/ul Normal 0.3-0.8 [facility] Comment on above: Performed By: #### B MP #### [facility] [address] [place] [address] Dr. Derek Feldman Monocytes/100 WBC (Bld) 9.4 % Normal 1.7-12.0 [facility] Comment on above: Performed By: #### B MP #### [facility] [address] [place] [address] Dr. Derek Feldman NEUT # 4.2 103/ul Normal 1.4-6.5 [facility] Comment on above: Performed By: #### B MP #### [facility] [address] [address] [address] Derek Feldman Neutrophils/100 WBC (Bld) 61.0 % Normal 43.0-75.0 [facility] Comment on above: Performed By: #### B MP #### [facility] [address] [place] [address] Dr. Derek Feldman Platelet mean volume (Bld) [Entitic vol] 8.7 fL Critically low 9.5-13.5 [facility] Comment on above: Performed By: #### B MP #### [facility] [address] [place] [address] Dr. Derek Feldman PLT 227 103/ul Normal 150-450 [facility] Comment on above: Performed By: #### B MP #### [facility] [address] [place] [address] Dr. Derek Feldman RBC 2.83 106/ul Critically low 4.70-6.10 [facility] Comment on above: Performed By: #### B MP #### [facility] [address] [place] [address] Dr. Derek Feldman WBC 6.9 103/ul Normal 4.0-11.0 [facility] Comment on above: Performed By: #### B MP #### [facility] [address] [place] [address] Dr. Derek Feldman HEMOGLOBIN AND HEMATOCRITon 06-18-2022 Hematocrit (Bld) [Volume fraction] 24.9 % Critically low 42.0-54.0 [facility] Comment on above: Performed By: #### H GBHCT #### [facility] [address] [place] [address] Dr. Derek Feldman Hemoglobin (Bld) [Mass/Vol] 8.5 g/dL Critically low 14.0-18.0 [facility] Comment on above: Performed By: #### H GBHCT #### [facility] [address] [place] [address] Dr. Derek Feldman Hematocrit (Bld) [Volume fraction] 21.9 % Critically low 42.0-54.0 [facility] Comment on above: Performed By: #### O BSCRN #### [facility] [address] [place] [address] Dr. Derek Feldman Hemoglobin (Bld) [Mass/Vol] 7.2 g/dL Critically low 14.0-18.0 [facility] Comment on above: Performed By: #### O BSCRN #### [facility] [address] [place] [address] Dr. Derek Feldman Hematocrit (Bld) [Volume fraction] 22.3 % Critically low 42.0-54.0 [facility] Comment on above: Performed By: #### C MP, HSTROPN #### [facility] [address] [place] [address] Dr. Derek Feldman Hemoglobin (Bld) [Mass/Vol] 7.4 g/dL Critically low 14.0-18.0 [facility] Comment on above: Performed By: #### C MP, HSTROPN #### [facility] [address] [place] [address] Dr. Derek Feldman PRBC LEUKOREDUCEDon 06-19-19 23 PRBC LEUKOREDUCED Cross Match Result Compatible Unit Blood Type O Pos Unit Number [id number] Status Information Transfused Product ID Red Blood Cells Product Code [id number] Normal [facility] Comment on above: Performed By: #### C BC #### [facility] [address] [place] [address] Dr. Derek Feldman PROF CHEM 8 (BAS METB)on Anion gap [Moles/Vol] 17.5 mmol/L Normal [facility] Comment on above: Performed By: #### C MP, HSTROPN #### [facility] [address] [place] [address] Dr. Derek Feldman Calcium [Mass/Vol] 9.4 mg/dL Normal 8.5-10.1 [facility] Comment on above: Performed By: #### C MP, HSTROPN #### [facility] [address] [place] [address] Dr. Derek Feldman Chloride [Moles/Vol] 98 mmol/L Normal 98-107 [facility] Comment on above: Performed By: #### C MP, HSTROPN #### [facility] [address] [address] [address] Derek Feldman CO2 [Moles/Vol] 16.5 mmol/L Critically low 21.0-32.0 [facility] Comment on above: Performed By: #### C MP, HSTROPN #### [facility] [address] [place] [address] Dr. Derek Feldman Creatinine [Mass/Vol] 0.84 mg/dL Normal 0.70-1.30 [facility] Comment on above: Performed By: #### C MP, HSTROPN #### [facility] [address] [place] [address] Dr. Derek Feldman EGFR-AF BELIZEAN >60 Normal >=60 [facility] Comment on above: Performed By: #### C MP, HSTROPN #### [facility] [address] [place] [address] Dr. Derek Feldman EGFR-NON AF BELIZEAN >60 Normal >=60 [facility] Comment on above: Performed By: #### C MP, HSTROPN #### [facility] [address] [place] [address] Dr. Derek Feldman Glucose [Mass/Vol] 60 mg/dL Critically low 74-106 [facility] Comment on above: Performed By: #### C MP, HSTROPN #### [facility] [address] [place] [address] Dr. Derek Feldman Potassium [Moles/Vol] 5.0 mmol/L Normal 3.5-5.1 [facility] Comment on above: Performed By: #### C MP, HSTROPN #### [facility] [address] [place] [address] Dr. Derek Felmdan Sodium [Moles/Vol] 127 mmol/L Critically low 136-145 [facility] Comment on above: Performed By: #### C MP, HSTROPN #### [facility] [address] [place] [address] Dr. Derek Feldman Urea nitrogen [Mass/Vol] 9.0 mg/dL Normal 7.0-18.0 [facility] Comment on above: Performed By: #### C KASSI, HSTROPN #### [facility] [address] [place] [address] Dr. Derek Feldman Urea nitrogen/Creatinine [Mass ratio] 10.7 mg/mg Normal [facility] Comment on above: Performed By: #### C KASSI, HSTROPN #### [facility] [address] [place] [address] Dr. Derek Feldman ABO RH RETYPEon 06-17-2022 ABO and Rh group Nom (Bld) DONE Normal [facility] Comment on above: Performed By: #### L ACT #### [facility] [address] [place] [address] Dr. Derek Feldman CARDIAC JONA 3-6on 3 CK [Catalytic activity/Vol] 73 U/L Normal 39-308 [facility] Comment on above: Performed By: #### L ACT #### [facility] [address] [place] [address] Dr. Derek Feldman CK.MB [Mass/Vol] 5.26 ng/mL Critically high <=3.60 [facility] Comment on above: Performed By: #### L ACT #### [facility] [address] [place] [address] Dr. Derek Feldman HSTROP 19.6 pg/mL Normal 4.0-76.1 [facility] Comment on above: Result Comment: CUT- OFF POINTS HAVE BEEN ESTABLISHED BASED ON THE FOURTH UNIVERSAL DEFINITIONS OF MYOCARDIAL INFARCTION. THE UPPER REFERENCE LIMIT (URL) OF TROPONIN, DEFINED THE 99TH PERCENTILE OF cTnI DISTRIBUTION IN A REFERENCE POPULATION, HAS BEEN CONFIRMED THE DECISION THRESHOLD FOR ND DIAGNOSIS. Performed By: #### L ACT #### [facility] [address] [place] [address] Dr. Derek Feldman CK [Catalytic activity/Vol] 83 U/L Normal 39-308 [facility] Comment on above: Performed By: #### L ACT #### [facility] [address] [place] [address] Dr. Derek Feldman CK.MB [Mass/Vol] 5.30 ng/mL Critically high <=3.60 [facility] Comment on above: Performed By: #### L ACT #### [facility] [address] [place] [address] Dr. Derek Feldman HSTROP 21.6 pg/mL Normal 4.0-76.1 [facility] Comment on above: Result Comment: CUT- OFF POINTS HAVE BEEN ESTABLISHED BASED ON THE FOURTH UNIVERSAL DEFINITIONS OF MYOCARDIAL INFARCTION. THE UPPER REFERENCE LIMIT (URL) OF TROPONIN, DEFINED THE 99TH PERCENTILE OF cTnI DISTRIBUTION IN A REFERENCE POPULATION, HAS BEEN CONFIRMED THE DECISION THRESHOLD FOR ND DIAGNOSIS. Performed By: #### L ACT #### [facility] [address] [place] [address] Dr. Derek Feldman CARDIAC JONA ADMITon 023 CK [Catalytic activity/Vol] 60 U/L Normal 39-308 [facility] Comment on above: Performed By: #### B MP #### [facility] [address] [place] [address] Dr. Derek Feldman CK.MB [Mass/Vol] 5.24 ng/mL Critically high <=3.60 [facility] Comment on above: Performed By: #### B MP #### [facility] [address] [place] [address] Dr. Derek Feldman HSTROP 21.3 pg/mL Normal 4.0-76.1 [facility] Comment on above: Result Comment: CUT- OFF POINTS HAVE BEEN ESTABLISHED BASED ON THE FOURTH UNIVERSAL DEFINITIONS OF MYOCARDIAL INFARCTION. THE UPPER REFERENCE LIMIT (URL) OF TROPONIN, DEFINED THE 99TH PERCENTILE OF cTnI DISTRIBUTION IN A REFERENCE POPULATION, HAS BEEN CONFIRMED THE DECISION THRESHOLD FOR ND DIAGNOSIS. Performed By: #### B MP #### [facility] [address] [place] [address] Dr. Derek Feldman MACEY 153 ng/mL Critically high 16-96 [facility] Comment on above: Performed By: #### B MP #### [facility] [address] [place] [address] Dr. Derek Feldman CBC AUTO DIFFon 06-17-2022 BASO # 0.0 103/ul Normal 0.0-0.1 [facility] Comment on above: Performed By: #### O BSCRN #### [facility] [address] [place] [address] Dr. Derek Feldman Basophils/100 WBC (Bld) 0.2 % Normal 0.2-2.0 [facility] Comment on above: Performed By: #### O BSCRN #### [facility] [address] [place] [address] Dr. Derek Feldman EO # 0.1 103/ul Normal 0.0-0.7 [facility] Comment on above: Performed By: #### O BSCRN #### [facility] [address] [place] [address] Dr. Derek Feldman Eosinophils/100 WBC (Bld) 0.6 % Critically low 0.9-7.0 [facility] Comment on above: Performed By: #### O BSCRN #### [facility] [address] [place] [address] Dr. Derek Feldman Erythrocyte distribution width (RBC) [Ratio] 15.9 % Critically high 11.0-15.0 [facility] Comment on above: Performed By: #### O BSCRN #### [facility] [address] [place] [address] Dr. Derek Feldman Hematocrit (Bld) [Volume fraction] 21.5 % Critically low 42.0-54.0 [facility] Comment on above: Performed By: #### O BSCRN #### [facility] [address] [place] [address] Dr. Derek Feldman Hemoglobin (Bld) [Mass/Vol] 7.1 g/dL Critically low 14.0-18.0 [facility] Comment on above: Performed By: #### O BSCRN #### [facility] [address] [place] [address] Dr. Derek Feldman IG # 0.06 10e3/ul Critically high 0.00-0.03 [facility] Comment on above: Performed By: #### O BSCRN #### [facility] [address] [address] [address] Derek Feldman IG % 0.7 % Critically high 0.0-0.5 [facility] Comment on above: Performed By: #### O BSCRN #### [facility] [address] [address] [address] Derek Feldman LYMPH # 1.5 103/ul Normal 1.2-3.8 [facility] Comment on above: Performed By: #### O BSCRN #### [facility] [address] [address] [address] Derek Feldman Lymphocytes/100 WBC (Bld) 19.0 % Critically low 20.5-60.0 [facility] Comment on above: Performed By: #### O BSCRN #### [facility] [address] [address] [address] Derek Feldman MANUAL DIFF REQ NO Normal [facility] Comment on above: Performed By: #### O BSCRN #### [facility] [address] [address] [address] Derek Feldman MCH (RBC) [Entitic mass] 25.4 pg Critically low 25.9-34.0 [facility] Comment on above: Performed By: #### O BSCRN #### [facility] [address] [address] [address] Derek Feldman MCHC (RBC) [Mass/Vol] 33.0 g/dL Normal 29.9-35.2 [facility] Comment on above: Performed By: #### O BSCRN #### [facility] [address] [address] [address] Derek Feldman MCV (RBC) [Entitic vol] 77.1 fL Critically low 80.0-94.0 [facility] Comment on above: Performed By: #### O BSCRN #### [facility] [address] [address] [address] Derek Feldman MONO # 0.6 103/ul Normal 0.3-0.8 [facility] Comment on above: Performed By: #### O BSCRN #### [facility] [address] [place] [address] Dr. Derek Feldman Monocytes/100 WBC (Bld) 6.9 % Normal 1.7-12.0 [facility] Comment on above: Performed By: #### O BSCRN #### [facility] [address] [address] [address] Derek Feldman NEUT # 5.8 103/ul Normal 1.4-6.5 [facility] Comment on above: Performed By: #### O BSCRN #### [facility] [address] [place] [address] Dr. Derek Feldman Neutrophils/100 WBC (Bld) 72.6 % Normal 43.0-75.0 [facility] Comment on above: Performed By: #### O BSCRN #### [facility] [address] [place] [address] Dr. Derek Feldman Platelet mean volume (Bld) [Entitic vol] 8.4 fL Critically low 9.5-13.5 [facility] Comment on above: Performed By: #### O BSCRN #### [facility] [address] [place] [address] Dr. Derek Feldman PLT 224 103/ul Normal 150-450 [facility] Comment on above: Performed By: #### O BSCRN #### [facility] [address] [place] [address] Dr. Derek Feldman RBC 2.79 106/ul Critically low 4.70-6.10 [facility] Comment on above: Performed By: #### O BSCRN #### [facility] [address] [place] [address] Dr. Derek Feldman WBC 8.0 103/ul Normal 4.0-11.0 [facility] Comment on above: Performed By: #### O BSCRN #### [facility] [address] [place] [address] Dr. Derek Feldman BASO # 0.0 103/ul Normal 0.0-0.1 [facility] Comment on above: Performed By: #### C MP, HSTROPN #### [facility] [address] [place] [address] Dr. Derek Feldman Basophils/100 WBC (Bld) 0.3 % Normal 0.2-2.0 [facility] Comment on above: Performed By: #### C MP, HSTROPN #### [facility] [address] [place] [address] Dr. Derek Feldman EO # 0.0 103/ul Normal 0.0-0.7 [facility] Comment on above: Performed By: #### C MP, HSTROPN #### [facility] [address] [place] [address] Dr. Derek Feldman Eosinophils/100 WBC (Bld) 0.4 % Critically low 0.9-7.0 [facility] Comment on above: Performed By: #### C MP, HSTROPN #### [facility] [address] [place] [address] Dr. Derek Feldman Erythrocyte distribution width (RBC) [Ratio] 15.9 % Critically high 11.0-15.0 [facility] Comment on above: Performed By: #### C MP, HSTROPN #### [facility] [address] [place] [address] Dr. Derek eFldman Hematocrit (Bld) [Volume fraction] 25.8 % Critically low 42.0-54.0 [facility] Comment on above: Performed By: #### C MP, HSTROPN #### [facility] [address] [place] [address] Dr. Derek Feldman Hemoglobin (Bld) [Mass/Vol] 8.3 g/dL Critically low 14.0-18.0 [facility] Comment on above: Performed By: #### C MP, HSTROPN #### [facility] [address] [place] [address] Dr. Derek Feldman IG # 0.07 10e3/ul Critically high 0.00-0.03 [facility] Comment on above: Performed By: #### C MP, HSTROPN #### [facility] [address] [place] [address] Dr. Derek Feldman IG % 0.8 % Critically high 0.0-0.5 [facility] Comment on above: Performed By: #### C KASSI, HSTROPN #### [facility] [address] [place] [address] Dr. Derek Feldman LYMPH # 1.1 103/ul Critically low 1.2-3.8 [facility] Comment on above: Performed By: #### C KASSI, HSTROPN #### [facility] [address] [place] [address] Dr. Derek Feldman Lymphocytes/100 WBC (Bld) 12.0 % Critically low 20.5-60.0 [facility] Comment on above: Performed By: #### C KASSI, HSTROPN #### [facility] [address] [place] [address] Dr. Derek Feldman MANUAL DIFF REQ NO Normal [facility] Comment on above: Performed By: #### C KASSI, HSTROPN #### [facility] [address] [place] [address] Dr. Derek Feldman MCH (RBC) [Entitic mass] 25.0 pg Critically low 25.9-34.0 [facility] Comment on above: Performed By: #### C KASSI, HSTROPN #### [facility] [address] [place] [address] Dr. Derek Feldman MCHC (RBC) [Mass/Vol] 32.2 g/dL Normal 29.9-35.2 [facility] Comment on above: Performed By: #### C KASSI, HSTROPN #### [facility] [address] [place] [address] Dr. Derek Feldman MCV (RBC) [Entitic vol] 77.7 fL Critically low 80.0-94.0 [facility] Comment on above: Performed By: #### C KASSI, HSTROPN #### [facility] [address] [place] [address] Dr. Derek Feldman MONO # 0.6 103/ul Normal 0.3-0.8 [facility] Comment on above: Performed By: #### C MP, HSTROPN #### [facility] [address] [place] [address] Dr. Derek Feldman Monocytes/100 WBC (Bld) 6.5 % Normal 1.7-12.0 [facility] Comment on above: Performed By: #### C MP, HSTROPN #### [facility] [address] [place] [address] Dr. Derek Feldman NEUT # 7.1 103/ul Critically high 1.4-6.5 [facility] Comment on above: Performed By: #### C MP, HSTROPN #### [facility] [address] [place] [address] Dr. Derek Feldman Neutrophils/100 WBC (Bld) 80.0 % Critically high 43.0-75.0 [facility] Comment on above: Performed By: #### C MP, HSTROPN #### [facility] [address] [place] [address] Dr. Derek Feldman Platelet mean volume (Bld) [Entitic vol] 8.3 fL Critically low 9.5-13.5 [facility] Comment on above: Performed By: #### C MP, HSTROPN #### [facility] [address] [place] [address] Dr. Derek Feldman PLT 274 103/ul Normal 150-450 [facility] Comment on above: Performed By: #### C MP, HSTROPN #### [facility] [address] [place] [address] Dr. Derek Feldman RBC 3.32 106/ul Critically low 4.70-6.10 [facility] Comment on above: Performed By: #### C MP, HSTROPN #### [facility] [address] [place] [address] Dr. Derek Feldman WBC 8.9 103/ul Normal 4.0-11.0 [facility] Comment on above: Performed By: #### C MP, HSTROPN #### [facility] [address] [place] [address] Dr. Derek Feldman Covid-19 PCR (CVDTBH)on SARS-CoV-2 (COVID-19) RNA YOMAIRA+probe Ql (Unsp spec) Not detected Normal NOT DETECTED [facility] Comment on above: Result Comment: When diagnostic testing is negative, the possibility of a false negative should be considered in the context of a patient's recent exposures and the presence of clinical signs and symptoms consistent with SARS-CoV-2. This test is not yet approved or cleared by the [place] FDA. When there are no FDA-approved or cleared tests available, and other criteria are met, FDA can make tests available under an emergency access mechanism called an Emergency Use Authorization (EUA). The EUA for this test is supported by the [employer] of Health and Human Service's declaration that circumstances exist to justify the emergency use of in vitro diagnostics for the detection and/or diagnosis of the virus that causes COVID-19. This EUA will remain in effect for the duration of the COVID-19 declaration justifying emergency of IVDs, unless it is terminated or revoked by the FDA (after which the test may no longer be used). Performed By: #### B MP #### [facility] [address] [place] [address] Dr. Derek Feldman FERRITINon 06-17-2022 Ferritin [Mass/Vol] 48.0 ng/mL Normal 26.0-388.0 [facility] Comment on above: Performed By: #### C MP, HSTROPN #### [facility] [address] [place] [address] Dr. Derek Feldman HEMOGLOBIN AND HEMATOCRITon 06-17-2022 Hematocrit (Bld) [Volume fraction] 21.9 % Critically low 42.0-54.0 [facility] Comment on above: Performed By: #### C BC #### [facility] [address] [place] [address] Dr. Derek Feldman Hemoglobin (Bld) [Mass/Vol] 7.3 g/dL Critically low 14.0-18.0 [facility] Comment on above: Performed By: #### C BC #### [facility] [address] [place] [address] Dr. Derek Feldman IRON AND TIBCon 06-17-2022 % SATURATION 9.4 % Normal [facility] Comment on above: Performed By: #### C KASSI, HSTROPN #### [facility] [address] [place] [address] Dr. Derek Feldman Iron [Mass/Vol] 25.0 ug/dL Critically low 65.0-175.0 [facility] Comment on above: Performed By: #### C KASSI, HSTROPN #### [facility] [address] [place] [address] Dr. Derek Feldman TIBC DIRECT 266.0 ug/dL Normal 250.0-450.0 [facility] Comment on above: Performed By: #### C KASSI, HSTROPN #### [facility] [address] [place] [address] Dr. Derek Feldman LACTATE/LACTIC ACIDon 2022 Lactate [Moles/Vol] 0.8 mmol/L Normal 0.4-2.0 [facility] Comment on above: Performed By: #### C KASSI, HSTROPN #### [facility] [address] [place] [address] Dr. Derek Feldman Lactate [Moles/Vol] 1.9 mmol/L Normal 0.4-2.0 [facility] Comment on above: Performed By: #### L ACT #### [facility] [address] [place] [address] Dr. Derek Feldman OCC BLD IMMUNOASSAYon 2022 OCCULT BLOOD Positive Abnormal NEGATIVE [facility] Comment on above: Performed By: #### O BSCRN #### [facility] [address] [place] [address] Dr. Derek Feldman PROF CHEM 8 (BAS METB)on Anion gap [Moles/Vol] 19.4 mmol/L Normal [facility] Comment on above: Performed By: #### C BC #### [facility] [address] [place] [address] Dr. Derek Feldman Calcium [Mass/Vol] 10.1 mg/dL Normal 8.5-10.1 [facility] Comment on above: Performed By: #### C BC #### [facility] [address] [address] [address] Derek Feldman Chloride [Moles/Vol] 87 mmol/L Critically low 98-107 [facility] Comment on above: Performed By: #### C BC #### [facility] [address] [address] [address] Derek Feldman CO2 [Moles/Vol] 16.0 mmol/L Critically low 21.0-32.0 [facility] Comment on above: Performed By: #### C BC #### [facility] [address] [address] [address] Derek Feldman Creatinine [Mass/Vol] 1.08 mg/dL Normal 0.70-1.30 [facility] Comment on above: Performed By: #### C BC #### [facility] [address] [address] [address] Derek Feldman EGFR-AF BELIZEAN >60 Normal >=60 [facility] Comment on above: Performed By: #### C BC #### [facility] [address] [place] [address] Dr. Derek Feldman EGFR-NON AF BELIZEAN >60 Normal >=60 [facility] Comment on above: Performed By: #### C BC #### [facility] [address] [address] [address] Derek Feldman Glucose [Mass/Vol] 103 mg/dL Normal 74-106 [facility] Comment on above: Performed By: #### C BC #### [facility] [address] [address] [address] Derek Feldman Potassium [Moles/Vol] 4.4 mmol/L Normal 3.5-5.1 [facility] Comment on above: Performed By: #### C BC #### [facility] [address] [address] [address] Derek Feldman Sodium [Moles/Vol] 118 mmol/L Critically low 136-145 [facility] Comment on above: Performed By: #### C BC #### [facility] [address] [address] [address] Derek Feldman Urea nitrogen [Mass/Vol] 15.0 mg/dL Normal 7.0-18.0 [facility] Comment on above: Performed By: #### C BC #### [facility] Laboratory [address] [address] [address] Derek Feldman Urea nitrogen/Creatinine [Mass ratio] 13.9 mg/mg Normal [facility] Comment on above: Performed By: #### C BC #### [facility] [address] [address] [address] Derek Feldman TYPE AND SCREENon 06-17-2022 TYPE AND SCREEN Negative Normal [facility] Comment on above: Performed By: #### T NS #### [facility] [address] [place] [address] Dr. Derek Feldman XR CHEST 1 Von 06-17-2022 XR CHEST 1 V EXAM: XR CHEST 1 V 06/17/2022 2:28 AM EDT OH001 CLINICAL STATEMENT: Asthenia COMPARISON: 01/03/2022 TECHNIQUE: Single AP radiograph of the chest is submitted. FINDINGS: There is no acute airspace disease. The cardiac silhouette is normal. The costophrenic recesses are sharp. No pneumothorax. The bony elements are unremarkable. IMPRESSION: No acute cardiopulmonary process. Electronically authenticated by: BRENDAN SAID Date: 2022-06-17 03:19 Normal [facility] AMYLASEon 06-15-2022 Amylase [Catalytic activity/Vol] 30 U/L Normal 25-115 [facility] Comment on above: Performed By: #### O BSCRN #### [facility] [address] [place] [address] Dr. Derek Feldman CBC AUTO DIFFon 06-15-2022 BASO # 0.0 103/ul Normal 0.0-0.1 [facility] Comment on above: Performed By: #### L ACT #### [facility] [address] [place], [place] [id number] Dr. Derek Feldman Basophils/100 WBC (Bld) 0.2 % Normal 0.2-2.0 [facility] Comment on above: Performed By: #### L ACT #### [facility] [address] [address] [address] Derek Feldman EO # 0.0 103/ul Normal 0.0-0.7 [facility] Comment on above: Performed By: #### L ACT #### [facility] [address] [place] [address] Dr. Derek Feldman Eosinophils/100 WBC (Bld) 0.2 % Critically low 0.9-7.0 [facility] Comment on above: Performed By: #### L ACT #### [facility] [address] [place] [address] Dr. Derek Feldman Erythrocyte distribution width (RBC) [Ratio] 15.8 % Critically high 11.0-15.0 [facility] Comment on above: Performed By: #### L ACT #### [facility] [address] [place] [address] Dr. Derek Feldman Hematocrit (Bld) [Volume fraction] 29.7 % Critically low 42.0-54.0 [facility] Comment on above: Performed By: #### L ACT #### [facility] [address] [place] [address] Dr. Derek Feldman Hemoglobin (Bld) [Mass/Vol] 9.6 g/dL Critically low 14.0-18.0 [facility] Comment on above: Performed By: #### L ACT #### [facility] [address] [place] [address] Dr. Derek Feldman IG # 0.06 10e3/ul Critically high 0.00-0.03 [facility] Comment on above: Performed By: #### L ACT #### [facility] [address] [place] [address] Dr. Derek Feldman IG % 0.5 % Normal 0.0-0.5 [facility] Comment on above: Performed By: #### L ACT #### [facility] [address] [place] [address] Dr. Derek Feldman LYMPH # 1.1 103/ul Critically low 1.2-3.8 [facility] Comment on above: Performed By: #### L ACT #### [facility] [address] [address] [address] Derek Feldman Lymphocytes/100 WBC (Bld) 8.4 % Critically low 20.5-60.0 [facility] Comment on above: Performed By: #### L ACT #### [facility] [address] [address] [address] Derek Feldman MANUAL DIFF REQ NO Normal [facility] Comment on above: Performed By: #### L ACT #### [facility] [address] [address] [address] Derek Feldman MCH (RBC) [Entitic mass] 25.3 pg Critically low 25.9-34.0 [facility] Comment on above: Performed By: #### L ACT #### [facility] [address] [place] [address] Dr. Derek Feldman MCHC (RBC) [Mass/Vol] 32.3 g/dL Normal 29.9-35.2 [facility] Comment on above: Performed By: #### L ACT #### [facility] [address] [place] [address] Dr. Derek Feldman MCV (RBC) [Entitic vol] 78.4 fL Critically low 80.0-94.0 [facility] Comment on above: Performed By: #### L ACT #### [facility] [address] [place] [address] Dr. Derek Feldman MONO # 0.7 103/ul Normal 0.3-0.8 [facility] Comment on above: Performed By: #### L ACT #### [facility] [address] [place] [address] Dr. Derek Feldman Monocytes/100 WBC (Bld) 5.1 % Normal 1.7-12.0 [facility] Comment on above: Performed By: #### L ACT #### [facility] [address] [place] [address] Dr. Derek Feldman NEUT # 10.9 103/ul Critically high 1.4-6.5 [facility] Comment on above: Performed By: #### L ACT #### [facility] [address] [place], [place] [address] Dr. Derek Feldman Neutrophils/100 WBC (Bld) 85.6 % Critically high 43.0-75.0 [facility] Comment on above: Performed By: #### L ACT #### [facility] [address] [place], [place] [address] Dr. Derek Feldman Platelet mean volume (Bld) [Entitic vol] 8.6 fL Critically low 9.5-13.5 [facility] Comment on above: Performed By: #### L ACT #### [facility] [address] [place], [place] [address] Dr. Derek Feldman PLT 274 103/ul Normal 150-450 [facility] Comment on above: Performed By: #### L ACT #### [facility] [id number] Derek Feldman RBC 3.79 106/ul Critically low 4.70-6.10 [facility] Comment on above: Performed By: #### L ACT #### [facility] [address] [place], [place] [address] Dr. Derek Feldman WBC 12.7 103/ul Critically high 4.0-11.0 [facility] Comment on above: Performed By: #### L ACT #### [facility] [address] [place], [place] [address] ABD/PELVIS WO CONon 06-15 CT ABD/PELVIS WO CON EXAMINATION: CT ABD/PELVIS WO CON, 06/15/2022 5:01 AM EDT HISTORY: UNSPECIFIED ABDOMINAL PAIN COMPARISON: CT abdomen pelvis, 07/05/2021. TECHNIQUE: CT scan of the abdomen and pelvis was performed without IV contrast. CT dose reduction technique was used, including Automated Exposure Control. FINDINGS: CT ABDOMEN: There is bibasilar pulmonary parenchymal scarring, most prominent in the right middle lobe. An underlying 13 mm right middle lobe nodule cannot be excluded on image 2 of series 3. Cardiac size is normal. There is a small pericardial effusion. The liver is unremarkable. There is a noncalcified 2.1 cm stone or focal sludge in the gallbladder fundus on image 30 of series 3. The gallbladder is otherwise unremarkable. There is no biliary ductal dilatation. The pancreas, spleen and adrenal glands appear grossly unremarkable. Prior right nephrectomy is unchanged. There is marked left renal atrophy and cortical thinning with multiple calcifications and several cystic lesions, unchanged. There are mild aortic calcifications without aneurysm. The nonenhanced stomach and small bowel appear unremarkable. There appears to be some retroperitoneal fat necrosis in the left periaortic region medial to the left kidney, unchanged. Several retroperitoneal surgical clips are stable. CT PELVIS: Severe diffuse pancolonic diverticulosis is again noted. There is mild hazy density in the pericolonic fat around the descending colon which may reflect mild underlying diverticulitis or short segment colitis. There is diffuse urinary bladder wall thickening. There is mild calcification in the normal-sized prostate. The pelvic small bowel loops are unremarkable. A right iliac fossa renal transplant is noted. There is a 2 mm stone in the right renal transplant on image 66. The transplanted kidney is otherwise unremarkable. Fat-containing umbilical hernia is noted. A mild lumbar dextroscoliosis is noted with spinal degenerative changes. No acute osseous abnormality or suspicious bony lesion is seen. IMPRESSION: 1. Bibasilar pulmonary parenchymal scarring. Underlying 13 mm right middle lobe pulmonary nodule cannot be excluded. Attention at follow-up is recommended. 2. Severe pancolonic diverticulosis with mild nonspecific hazy density in the pericolonic fat in the descending colon region, not significantly changed. Underlying short segment colitis or diverticulitis cannot be excluded. No free air is seen. 3. Prominent urinary bladder wall thickening may reflect chronic wall hypertrophy and trabeculation versus cystitis, not significantly changed. 4. Prior right nephrectomy with marked left renal atrophy, cortical thinning, multiple calcifications and several cystic lesions, unchanged. 5. Right iliac fossa renal transplant containing a 2 mm nonobstructing stone. 6. Sludge versus noncalcified stone in the gallbladder fundus. No CT findings of cholecystitis. Electronically authenticated by: HERNANDEZ SIERRA Date: 2022-06-15 06:03 Normal [facility] LIPASEon 06-15-2022 Lipase [Catalytic activity/Vol] 77.0 U/L Normal 73.0-393.0 [facility] Comment on above: Performed By: #### O BSCRN #### [facility] [address] [place] [address] Dr. Derek Feldman PROF 14(COMP METB)on 023 Albumin [Mass/Vol] 3.3 g/dL Critically low 3.4-5.0 [facility] Comment on above: Performed By: #### L ACT #### [facility] [address] [place] [address] Dr. Derek Feldman Albumin/Globulin [Mass ratio] 1.1 {ratio} Normal [facility] Comment on above: Performed By: #### L ACT #### [facility] [address] [address] [address] Derek Feldman ALP [Catalytic activity/Vol] 78 U/L Normal 46-116 [facility] Comment on above: Performed By: #### L ACT #### [facility] [address] [place] [address] Dr. Derek Feldman ALT [Catalytic activity/Vol] 12 U/L Critically low 16-63 [facility] Comment on above: Performed By: #### L ACT #### [facility] [address] [place] [address] Dr. Derek Feldman Anion gap [Moles/Vol] 20.7 mmol/L Normal [facility] Comment on above: Performed By: #### L ACT #### [facility] [address] [place] [address] Dr. Derek Feldman AST [Catalytic activity/Vol] 16 U/L Normal 15-37 [facility] Comment on above: Performed By: #### L ACT #### [facility] [address] [place] [address] Dr. Derek Feldman Bilirubin [Mass/Vol] 0.7 mg/dL Normal 0.2-1.0 [facility] Comment on above: Performed By: #### L ACT #### [facility] [address] [place] [address] Dr. Derek Feldman Calcium [Mass/Vol] 10.1 mg/dL Normal 8.5-10.1 [facility] Comment on above: Performed By: #### L ACT #### [facility] [address] [address] [address] Derek Feldman Chloride [Moles/Vol] 95 mmol/L Critically low 98-107 [facility] Comment on above: Performed By: #### L ACT #### [facility] [address] [address] [address] Derek Feldman CO2 [Moles/Vol] 18.6 mmol/L Critically low 21.0-32.0 [facility] Comment on above: Performed By: #### L ACT #### [facility] [address] [address] [address] Derek Feldman Creatinine [Mass/Vol] 1.29 mg/dL Normal 0.70-1.30 [facility] Comment on above: Performed By: #### L ACT #### [facility] [address] [address] [address] Derek Feldman EGFR-AF BELIZEAN >60 Normal >=60 [facility] Comment on above: Performed By: #### L ACT #### [facility] [address] [address] [address] Derek Feldman EGFR-NON AF BELIZEAN 56 mL/min/1.73m2 Critically low >=60 [facility] Comment on above: Performed By: #### L ACT #### [facility] [address] [address] [address] Derek Feldman Globulin (S) [Mass/Vol] 3.0 g/dL Normal [facility] Comment on above: Performed By: #### L ACT #### [facility] [address] [address] [address] Derek Feldman Glucose [Mass/Vol] 140 mg/dL Critically high 74-106 [facility] Comment on above: Performed By: #### L ACT #### [facility] [address] [address] [address] Derek Fedlman Potassium [Moles/Vol] 4.3 mmol/L Normal 3.5-5.1 [facility] Comment on above: Performed By: #### L ACT #### [facility] [address] [address] [address] Derek Feldman Protein [Mass/Vol] 6.3 g/dL Critically low 6.4-8.2 [facility] [place] Comment on above: Performed By: #### L ACT #### [facility] [address] [address] [address] Derek Feldman Sodium [Moles/Vol] 130 mmol/L Critically low 136-145 [facility] Comment on above: Performed By: #### L ACT #### [facility] [address] [address] [address] Derek Feldman Urea nitrogen [Mass/Vol] 14.0 mg/dL Normal 7.0-18.0 [facility] Comment on above: Performed By: #### L ACT #### [facility] [address] [address] [address] Derek Feldman Urea nitrogen/Creatinine [Mass ratio] 10.9 mg/mg Normal [facility] Comment on above: Performed By: #### L ACT #### [facility] [address] [address] [address] Derek Feldman FK506 (TACROLIMUS) WHOLE BLO ODon 06-06-2022 Tacrolimus (FK506), Blood 8.3 ng/mL Normal 2.0-20.0 [facility] Comment on above: Result Comment: Trou gh (immediately following transplant) 15.0 . Trough (steady state, 2 weeks or more after transplant): 3.0 - 8.0 . Performed by LC-MS/MS technology. Performed By: #### C BC #### [facility] [address] [place] [address] Dr. Derek Feldman Height or Weight NOT Doneon 03-27-2022 Adult depression screening assessment No [facility] 250 DO Work Phone: Fall risk assessment a) No falls within the last year [facility] 250 DO Work Phone: Tobacco use status [facility] b) No [facility] 250 DO Work Phone: Office Visit (Cardiology)on 03-27-2022 Follow-up visit Diagnoses/Problems Assessed Atrial flutter (427.32) (I48.92) Palpitations (785.1) (R00.2) Renal transplant recipient (V42.0) (Z94.0) Benign essential hypertension (401.1) (I10) Never a smoker Aortic stenosis (424.1) (I35.0) Orders Aortic stenosis, Atrial flutter Echocardiogram; Status:Hold For - Scheduling; Requested for:27Mar2022; Atrial flutter Renew: Aspirin EC 81 MG Oral Tablet Delayed Release; TAKE 1 TABLET DAILY IO EKG Electrocardiogram- 12 Lead; Status:Complete; Done: 27Mar2022 Benign essential hypertension Renew: hydrALAZINE HCl - 25 MG Oral Tablet; TAKE 1 TABLET BY MOUTH TWICE DAILY SocHx: Never a smoker Tobacco Use Screening; Status:Complete; Done: 27Mar2022 Patient Instructions Please bring all medicines, vitamins, and herbal supplements with you when you come to the office. Prescriptions will not be filled unless you are compliant with your follow up appointments or have a follow up appointment scheduled as per instruction of your physician. Refills should be requested at the time of your visit. Follow up in 6 months Chief Complaint JAGRUTI ESPARZA is being seen for 8 month follow up. History of Present Illness Patient returns for follow-up of problems as noted. He is done well. He denies any angina CHF or arrhythmia symptomatology. We reviewed his recent testing and his stress test demonstrated no ischemia no infarct and normal ejection fraction. Echo also normal ejection fraction but he did have aortic valve disease that does require reassessment, and because of this we will perform an echocardiogram to evaluate his aortic stenosis In regards to his atrial arrhythmia appears to be well controlled. Auscultation demonstrates regular rhythm and EKG demonstrates sinus rhythm with an acceptable QT interval and consequently flecainide dosage does not require adjustment. He has had no palpitation chest pain dyspnea or other cardiac complaints. He does have a renal transplant and this was discussed in detail. He had numerous questions regarding diet fruit juice etc. and also had some questions regarding his cardiac meds and how they are affected by his renal transplant. I advised him that we are able to quantify flecainide level through the EKG and presently the dose appears to be an acceptable dose. Because of all the above we suggest no change. We did advocate diet and weight loss. Active Problems Problems Atrial flutter (427.32) (I48.92) Benign essential hypertension (401.1) (I10) Class 1 obesity with body mass index (BMI) of 30.0 to 30.9 in adult (278.00,V85.30) (E66.9,Z68.30) Never a smoker Palpitations (785.1) (R00.2) Renal transplant recipient (V42.0) (Z94.0) Shortness of breath on exertion (786.05) (R06.02) Current Meds Medication NameInstruction Aspirin EC 81 MG Oral Tablet Delayed ReleaseTAKE 1 TABLET DAILY. CellCept 250 MG Oral CapsuleTAKE 3 CAPSULES BY MOUTH TWICE DAILY dilTIAZem HCl ER Coated Beads 180 MG Oral Capsule Extended Release 24 HourTAKE 1 CAPSULE Daily Flecainide Acetate 50 MG Oral TabletTAKE 1 TABLET BY MOUTH EVERY 8 HOURS hydrALAZINE HCl - 25 MG Oral TabletTAKE 1 TABLET BY MOUTH TWICE DAILY predniSONE 5 MG Oral TabletTAKE 1 TABLET DAILY DIRECTED. Prograf 0.5 MG Oral CapsuleTAKE 1 CAPSULE BY MOUTH EVERY 12 HOURS FOR 30 DAYS Prograf 1 MG Oral CapsuleTake 1 tablet twice daily rOPINIRole HCl - 1 MG Oral TabletTAKE 1 TABLET BY MOUTH ONCE DAILY FOR 90 DAYS Sulfamethoxazole-Trimeth oprim 400-80 MG Oral TabletTAKE 1 TABLET BY MOUTH ONCE DAILY Patient brought in an updated medication list. Garrett Bustos MA Allergies Medication amoxicillin Allergy; Hives;; Updated By: Janae Steward; 07/11/2021 1:13:09 PM Rash cephalexin Allergy; Hives;; Updated By: Janae Steward; 07/11/2021 1:13:09 PM Hives Penicillins Allergy; Hives;; Updated By: Janae Steward; 07/11/2021 1:13:09 PM Rash Demerol SOLN Adverse Reaction; Dizziness; Updated By: Janae Steward; 07/11/2021 1:13:09 PM Dizziness Social History Problems Never a smoker No alcohol use No illicit drug use Occasional caffeine consumption Chocolate Review of Systems Constitutional: not feeling tired. Cardiovascular: palpitations, but no intermittent leg claudication and as noted in HPI. Respiratory: no cough and no shortness of breath. Gastrointestinal: no change in bowel habits and no blood in stools. Integumentary: no skin rashes. Neurological: no seizures and no frequent falls. All other systems have been reviewed and are negative for complaint. Vitals Vital Signs Recorded: 27Mar2022 02:22PMRecorded: [id number] 01:36PM Heart Rate76, R Lobmhy84, Apical Uaqalmaw776, RUE, Jfpjukn432, LUE, Sitting Wzgjdsrjz24, RUE, Whmosco12, LUE, Sitting Height5 ft 9 in Fibfba554 lb BMI Seegcacmdv21.13 kg/m2 BSA Calculated2.08 Height or Weight NOT DoneMedical Reason Not Done Tobacco Useb) No PHQ-2 #1. Over the last 2 weeks have you felt down, depressed or hopeless? (If yes (more content not included)... Normal [facility] FK506 (TACROLIMUS) WHOLE BLO ODon 12-21-2021 Tacrolimus (FK506), Blood 9.5 ng/mL Normal 2.0-20.0 [facility] Comment on above: Result Comment: Trou gh (immediately following transplant) 15.0 . Trough (steady state, 2 weeks or more after transplant): 3.0 - 8.0 . Performed by LC-MS/MS technology. Performed By: #### O BSCRN #### [facility] [address] [place] [address] Dr. Derek Feldman LIPID PROFILEon 12-18-2021 CHOL-HDL RATIO NORM SEE BELOW Normal [facility] Comment on above: Result Comment: 3.3 - 4.4 LOW RISK 4.4 - 7.1 AVERAGE RISK 7.1 - 11.0 MODERATE RISK >11.0 HIGH RISK Performed By: #### L ACT #### [facility] [address] [place] [address] Dr. Derek Feldman Cholesterol [Mass/Vol] 196 mg/dL Normal <=200 [facility] Comment on above: Performed By: #### L ACT #### [facility] [address] [place] [address] Dr. Derek Feldman Cholesterol in HDL [Mass/Vol] 44 mg/dL Normal 40-60 [facility] Comment on above: Performed By: #### L ACT #### [facility] [address] [place] [address] Dr. Derek Feldman Cholesterol in LDL [Mass/Vol] 131.2 mg/dL Normal [facility] Comment on above: Performed By: #### L ACT #### [facility] [address] [address] [address] Derek Feldman Cholesterol.total/Chol esterol in HDL [Mass ratio] 4.5 {ratio} Normal [facility] Comment on above: Performed By: #### L ACT #### [facility] [address] [address] [address] Derek Feldman HDL NORMAL > or = 60 mg/dl - LO W CARDIOVASCULAR RISK <40 mg/dl - HIGH CARDIOVASCULAR RISK Normal [facility] Comment on above: Performed By: #### L ACT #### [facility] [address] [address] [address] Derek Feldman LDL CALC NORMAL SEE BELOW Normal [facility] Comment on above: Result Comment: <100 mg/dl OPTIMAL 100 - 129 mg/dl NEAR OR ABOVE OPTIMAL 130 - 159 mg/dl BORDERLINE HIGH 160 - 189 mg/dl HIGH >190 mg/dl VERY HIGH Performed By: #### L ACT #### [facility] [address] [address] [address] Derek Feldman Triglyceride [Mass/Vol] 104 mg/dL Normal <=150 [facility] Comment on above: Performed By: #### L ACT #### [facility] [address] [address] [address] Derek Feldman VLDL CALC 20.8 mg/dL Normal [facility] Comment on above: Performed By: #### L ACT #### [facility] [address] [address] [address] Derek Feldman PROF 14(COMP METB)on 022 Albumin [Mass/Vol] 3.3 g/dL Critically low 3.4-5.0 [facility] Comment on above: Performed By: #### O BSCRN #### [facility] [address] [address] [address] Derek Feldman Albumin/Globulin [Mass ratio] 1.0 {ratio} Normal [facility] Comment on above: Performed By: #### O BSCRN #### [facility] [address] [address] [address] Derek Feldman ALP [Catalytic activity/Vol] 64 U/L Normal 46-116 [facility] Comment on above: Performed By: #### O BSCRN #### [facility] [address] [address] [address] Derek Feldman ALT [Catalytic activity/Vol] 14 U/L Critically low 16-63 [facility] Comment on above: Performed By: #### O BSCRN #### [facility] [address] [address] [address] Derek Feldman Anion gap [Moles/Vol] 10.4 mmol/L Normal [facility] Comment on above: Performed By: #### O BSCRN #### [facility] [address] [address] [address] Derek Feldman AST [Catalytic activity/Vol] 11 U/L Critically low 15-37 [facility] Comment on above: Performed By: #### O BSCRN #### [facility] [address] [address] [address] Derek Feldman Bilirubin [Mass/Vol] 0.7 mg/dL Normal 0.2-1.0 [facility] Comment on above: Performed By: #### O BSCRN #### [facility] [address] [address] [address] Derek Feldman Calcium [Mass/Vol] 10.0 mg/dL Normal 8.5-10.1 [facility] Comment on above: Performed By: #### O BSCRN #### [facility] [address] [address] [address] Derek Feldman Chloride [Moles/Vol] 101 mmol/L Normal 98-107 [facility] Comment on above: Performed By: #### O BSCRN #### [facility] [address] [address] [address] Derek Feldman CO2 [Moles/Vol] 24.8 mmol/L Normal 21.0-32.0 [facility] Comment on above: Performed By: #### O BSCRN #### [facility] [address] [address] [address] Derek Feldman Creatinine [Mass/Vol] 0.97 mg/dL Normal 0.70-1.30 [facility] Comment on above: Performed By: #### O BSCRN #### [facility] [address] [address] [address] Derek Feldman EGFR-AF BELIZEAN >60 Normal >=60 [facility] Comment on above: Performed By: #### O BSCRN #### [facility] [address] [address] [address] Derek Feldman EGFR-NON AF BELIZEAN >60 Normal >=60 [facility] Comment on above: Performed By: #### O BSCRN #### [facility] [address] [address] [address] Derek Feldman Globulin (S) [Mass/Vol] 3.4 g/dL Normal [facility] Comment on above: Performed By: #### O BSCRN #### [facility] [address] [address] [address] Derek Feldman Glucose [Mass/Vol] 129 mg/dL Critically high 74-106 [facility] Comment on above: Performed By: #### O BSCRN #### [facility] [address] [address] [address] Derek Feldman Potassium [Moles/Vol] 4.2 mmol/L Normal 3.5-5.1 [facility] Comment on above: Performed By: #### O BSCRN #### [facility] [address] [address] [address] Derek Feldman Protein [Mass/Vol] 6.7 g/dL Normal 6.4-8.2 [facility] Comment on above: Performed By: #### O BSCRN #### [facility] [address] [address] [address] Derek Feldman Sodium [Moles/Vol] 132 mmol/L Critically low 136-145 [facility] Comment on above: Performed By: #### O BSCRN #### [facility] [address] [address] [address] Derek Feldman Urea nitrogen [Mass/Vol] 12.0 mg/dL Normal 7.0-18.0 [facility] Comment on above: Performed By: #### O BSCRN #### [facility] [address] [address] [address] Derek Feldman Urea nitrogen/Creatinine [Mass ratio] 12.4 mg/mg Normal [facility] Comment on above: Performed By: #### O BSCRN #### [facility] [address] [address] [address] Derek Feldman UA RANDOMon 12-18-2021 Bilirubin Ql (U) Negative Normal NEGATIVE [facility] Comment on above: Performed By: #### B MP #### [facility] [address] [address] [address] Derek Feldman Clarity (U) CLEAR Normal CLEAR [facility] Comment on above: Performed By: #### B MP #### [facility] [address] [place] [address] Dr. Derek Fedlman Color (U) LT. YELLOW Normal YELLOW [facility] Comment on above: Performed By: #### B MP #### [facility] [address] [place] [address] Dr. Derek Feldman Glucose Ql (U) Negative Normal NEGATIVE [facility] Comment on above: Performed By: #### B MP #### [facility] [address] [address] [address] Derek Feldman Hemoglobin Ql (U) Negative Normal NEGATIVE [facility] Comment on above: Performed By: #### B MP #### [facility] [address] [address] [address] Derek Feldman Ketones Ql (U) Negative Normal NEGATIVE [facility] Comment on above: Performed By: #### B MP #### [facility] [address] [address] [address] Derek Feldman LEUKOCYTES Negative Normal NEGATIVE [facility] Comment on above: Performed By: #### B MP #### [facility] [address] [address] [address] Derek Feldman Nitrite Ql (U) Negative Normal NEGATIVE [facility] Comment on above: Performed By: #### B MP #### [facility] [address] [place] [address] Dr. Derek Feldman pH (U) 7.0 [pH] Normal 5-9 [facility] Comment on above: Performed By: #### B MP #### [facility] [address] [place] [address] Dr. Derek Feldman SPEC GRAVITY 1.010 Normal 1.005-<=1.02 5 [facility] Comment on above: Performed By: #### B MP #### [facility] [address] [place] [address] Dr. Derek Feldman UA PROTEIN Negative Normal NEGATIVE/ TRACE [facility] Comment on above: Performed By: #### B MP #### [facility] [address] [place] [address] Dr. Derek Feldman Urobilinogen Qn (U) 0.2 {Dejah'U}/dL Normal 0.2 - 1. 0 [facility] Comment on above: Performed By: #### B MP #### [facility] [address] [place] [address] Dr. Derek Feldman URINE T PROTEIN CREAT RATIOo n 12-18-2021 UR PROT CREAT RAT 0.25 Normal [facility] Comment on above: Performed By: #### B MP #### [facility] [address] [place] [address] Dr. Derek Feldman UR TOTAL PROTEIN <6.0 Normal <=12.0 [facility] Comment on above: Performed By: #### B MP #### [facility] [address] [place] [address] Dr. Derek Feldman URINE CREAT 24.03 mg/dL Normal 20.00-300.00 [facility] Comment on above: Performed By: #### B MP #### [facility] [address] [place] [address] Dr. Derek Feldman FK506 (TACROLIMUS) WHOLE BLO ODon 07-21-2021 Tacrolimus (FK506), Blood 7.0 ng/mL Normal 2.0-20.0 [facility] Comment on above: Result Comment: Trou gh (immediately following transplant) 15.0 . Trough (steady state, 2 weeks or more after transplant): 3.0 - 8.0 . Performed by LC-MS/MS technology. Performed By: #### O BSCRN #### [facility] [address] [place] [address] Dr. Derek Feldman PROF 14(COMP METB)on 022 Albumin [Mass/Vol] 3.0 g/dL Critically low 3.4-5.0 [facility] Comment on above: Performed By: #### L ACT #### [facility] [address] [place] [address] Dr. Derek Feldman Albumin/Globulin [Mass ratio] 0.9 {ratio} Normal [facility] Comment on above: Performed By: #### L ACT #### [facility] [address] [place] [address] Dr. Derek Feldman ALP [Catalytic activity/Vol] 65 U/L Normal 46-116 [facility] Comment on above: Performed By: #### L ACT #### [facility] [address] [place] [address] Dr. Derek Feldman ALT [Catalytic activity/Vol] 18 U/L Normal 16-63 [facility] Comment on above: Performed By: #### L ACT #### [facility] [address] [place] [address] Dr. Derek Feldman Anion gap [Moles/Vol] 11.6 mmol/L Normal [facility] Comment on above: Performed By: #### L ACT #### [facility] [address] [place] [address] Dr. Derek Feldman AST [Catalytic activity/Vol] 11 U/L Critically low 15-37 [facility] Comment on above: Performed By: #### L ACT #### [facility] [address] [place] [address] Dr. Derek Feldman Bilirubin [Mass/Vol] 0.3 mg/dL Normal 0.2-1.0 [facility] Comment on above: Performed By: #### L ACT #### [facility] [address] [place] [address] Dr. Derek Feldman Calcium [Mass/Vol] 9.4 mg/dL Normal 8.5-10.1 [facility] Comment on above: Performed By: #### L ACT #### [facility] [address] [place] [address] Dr. Derek Feldman Chloride [Moles/Vol] 100 mmol/L Normal 98-107 [facility] Comment on above: Performed By: #### L ACT #### [facility] [address] [place] [address] Dr. Derek Feldman CO2 [Moles/Vol] 24.9 mmol/L Normal 21.0-32.0 [facility] Comment on above: Performed By: #### L ACT #### [facility] [address] [place] [address] Dr. Derek Feldman Creatinine [Mass/Vol] 0.90 mg/dL Normal 0.70-1.30 [facility] Comment on above: Performed By: #### L ACT #### [facility] [address] [place] [address] Dr. Derek Feldman EGFR-AF BELIZEAN >=60 Normal >=60 [facility] Comment on above: Performed By: #### L ACT #### [facility] [address] [place] [address] Dr. Derek Feldman EGFR-NON AF BELIZEAN >60 Normal >=60 [facility] Comment on above: Performed By: #### L ACT #### [facility] [address] [place] [address] Dr. Derek Feldman Globulin (S) [Mass/Vol] 3.3 g/dL Normal [facility] Comment on above: Performed By: #### L ACT #### [facility] [address] [place] [address] Dr. Derek Feldman Glucose [Mass/Vol] 119 mg/dL Critically high 74-106 [facility] Comment on above: Performed By: #### L ACT #### [facility] [address] [place] [address] Dr. Derek Feldman Potassium [Moles/Vol] 4.5 mmol/L Normal 3.5-5.1 [facility] Comment on above: Performed By: #### L ACT #### [facility] [address] [address] [address] Derek Feldman Protein [Mass/Vol] 6.3 g/dL Normal 6.1-8.2 [facility] Comment on above: Performed By: #### L ACT #### [facility] [address] [address] [address] Derek Feldman Sodium [Moles/Vol] 132 mmol/L Critically low 136-145 [facility] Comment on above: Performed By: #### L ACT #### [facility] [address] [place] [address] Dr. Derek Feldman Urea nitrogen [Mass/Vol] 11.0 mg/dL Normal 7.0-18.0 [facility] Comment on above: Performed By: #### L ACT #### [facility] [address] [place] [address] Dr. Derek Feldman Urea nitrogen/Creatinine [Mass ratio] 12.2 mg/mg Normal [facility] Comment on above: Performed By: #### L ACT #### [facility] [address] [place] [address] Dr. Derek Feldman UA RANDOMon 07-17-2021 Bilirubin Ql (U) Negative Normal NEGATIVE [facility] Comment on above: Performed By: #### B MP #### [facility] [address] [place] [address] Dr. Derek Feldman Clarity (U) CLEAR Normal CLEAR [facility] Comment on above: Performed By: #### B MP #### [facility] [address] [place] [address] Dr. Derek Feldman Color (U) LT. YELLOW Normal YELLOW [facility] Comment on above: Performed By: #### B MP #### [facility] [address] [place] [address] Dr. Derek Feldman Glucose Ql (U) Negative Normal NEGATIVE [facility] Comment on above: Performed By: #### B MP #### [facility] [address] [place] [address] Dr. Derek Feldman Hemoglobin Ql (U) Negative Normal NEGATIVE [facility] Comment on above: Performed By: #### B MP #### [facility] [address] [place] [address] Dr. Derek Feldman Ketones Ql (U) Negative Normal NEGATIVE [facility] Comment on above: Performed By: #### B MP #### [facility] [address] [place] [address] Dr. Derek Feldman LEUKOCYTES SMALL Abnormal NEGATIVE [facility] Comment on above: Performed By: #### B MP #### [facility] [address] [place] [address] Dr. Derek Feldman Nitrite Ql (U) Negative Normal NEGATIVE [facility] Comment on above: Performed By: #### B MP #### [facility] [address] [place] [address] Dr. Derek Feldman pH (U) 6.0 [pH] Normal 5-9 [facility] Comment on above: Performed By: #### B MP #### [facility] [address] [place] [address] Dr. Derek Feldman SPEC GRAVITY <=1.005 Abnormal 1.005-<=1.02 5 [facility] Comment on above: Performed By: #### B MP #### [facility] [address] [place] [address] Dr. Derek Feldman UA PROTEIN Negative Normal NEGATIVE/ TRACE [facility] Comment on above: Performed By: #### B MP #### [facility] [address] [place] [address] Dr. Derek Feldman Urobilinogen Qn (U) 0.2 {Dejah'U}/dL Normal 0.2 - 1. 0 [facility] Comment on above: Performed By: #### B MP #### [facility] [address] [place] [address] Dr. Derek Feldman URINE T PROTEIN CREAT RATIOo n 07-17-2021 Protein (U) [Mass/Vol] 7.0 mg/dL Normal <=12.0 [facility] Comment on above: Performed By: #### L ACT #### [facility] [address] [address] [address] Derek Feldman UR PROT CREAT RAT 0.17 Normal [facility] Comment on above: Performed By: #### L ACT #### [facility] [address] [address] [address] Derek Feldman URINE CREAT 40.79 mg/dL Normal 20.00-300.00 [facility] Comment on above: Performed By: #### L ACT #### [facility] [address] [address] [address] Derek Feldman Vital Signs Date Time Vital Sign Value Performing Clinician Facility 07-13-2023 14:39-0400 Body height 175.26 cm [facility] 07-13-2023 14:39-0400 Body temperature 98.5 [degF] [facility] 07-13-2023 14:39-0400 Diastolic blood pressure 73 mm[Hg] [facility] 07-13-2023 14:39-0400 Heart rate 96 /min [facility] 07-13-2023 14:39-0400 Respiratory rate 18 /min [facility] 07-13-2023 14:39-0400 SaO2% (BldA) [Mass fraction] 96 % [facility] 07-13-2023 14:39-0400 Systolic blood pressure 126 mm[Hg] [facility] 06-21-2023 11:21-0400 Body temperature 99.5 [degF] Jessica Pang MD Work Phone: [facility] 06-21-2023 11:21-0400 Diastolic blood pressure 57 mm[Hg] Jessica Pang MD Work Phone: [facility] 06-21-2023 11:21-0400 Heart rate 81 /min Jessica Pang MD Work Phone: [facility] 06-21-2023 11:21-0400 Respiratory rate 17 /min Jessica Pang MD Work Phone: [facility] 06-21-2023 11:21-0400 SaO2% (BldA) [Mass fraction] 97 % Jessica Pang MD Work Phone: [facility] 06-21-2023 11:21-0400 Systolic blood pressure 114 mm[Hg] Jessica Pang MD Work Phone: [facility] 06-17-2023 09:13-0400 Body temperature 37.0 Jessica Pang MD Work Phone: [facility] 06-17-2023 09:13-0400 SaO2% (BldA) [Mass fraction] 99 % Jessica Pang MD Work Phone: [facility] 06-17-2023 05:00-0400 Body mass index (BMI) [Ratio] 25.13 kg/m2 Jessica Pang MD Work Phone: [facility] 06-17-2023 05:00-0400 Body weight 77.2 kg Jessica Pang MD Work Phone: [facility] 06-17-2023 00:16-0400 Body temperature 37.0 degrees Celsius [facility] Comment on above: Result Comment: NOTE: Patient Results ar e Not Corrected for Temperature Performed By: #### 2 [id number] ####SARAH Mcknight ([id number])[facility] ([facility])[address] [place] [address] 06-17-2023 00:16-0400 SaO2% (BldA) [Mass fraction] 99 % [facility] Comment on above: Performed By: #### [id number] ####SARAH Mcknight ([id number])[facility] ([facility])[address] [place] [address] 06-16-2023 16:47-0400 Body temperature 37.0 Jessica Pang MD Work Phone: [facility] 06-16-2023 16:47-0400 SaO2% (BldA) [Mass fraction] 100 % Jessica Pnag MD Work Phone: [facility] 06-16-2023 16:37-0400 Body temperature 37.0 degrees Celsius [facility] Comment on above: Performed By: #### [id number] ####SARAH Mcknight ([id number])[facility])[address] [place] [address] 06-16-2023 16:37-0400 SaO2% (BldA) [Mass fraction] 100 % [facility] Comment on above: Performed By: #### [id number] ####SARAH Mcknight ([id number])[facility] ([facility])[address] [place] [address] 06-16-2023 00:44-0400 Body temperature 37.0 Jessica Pang MD Work Phone: [facility] 06-16-2023 00:44-0400 SaO2% (BldA) [Mass fraction] 99 % Jessica Pang MD Work Phone: [facility] 06-16-2023 00:32-0400 Body temperature 37.0 degrees Celsius [facility] Comment on above: Performed By: #### [id number] ####SARAH Mcknight ([id number])[facility] ([facility])[address] [place], [place] [id number] 06-16-2023 00:32-0400 SaO2% (BldA) [Mass fraction] 99 % [facility] Comment on above: Performed By: #### [id number] ####SARAH Mcknight ([id number])[facility] ([facility])[address] [place], [place] [id number] 06-15-2023 16:42-0400 Body temperature 37.0 Jessica Pang MD Work Phone: [facility] 06-15-2023 16:42-0400 SaO2% (BldA) [Mass fraction] 100 % Jessica Pang MD Work Phone: [facility] 06-15-2023 15:35-0400 Body temperature 37.0 degrees Celsius [facility] Comment on above: Performed By: #### [id number] ####SARAH Mcknight ([id number])[facility] ([facility])[address] [place] [address] 06-15-2023 15:35-0400 SaO2% (BldA) [Mass fraction] 100 % [facility] Comment on above: Performed By: #### [id number] ####SARAH Mcknight ([id number])[facility] ([facility])[address] [place] [address] 06-15-2023 11:41-0400 Body temperature 37.0 Jessica Pang MD Work Phone: [facility] 06-15-2023 11:41-0400 SaO2% (BldA) [Mass fraction] 98 % Jesscia Pang MD Work Phone: [facility] 06-15-2023 11:29-0400 Body temperature 37.0 degrees Celsius [facility] Comment on above: Performed By: #### [id number] ####SARAH Mcknight ([id number])[facility] ([facility])[address] [place] [address] 06-15-2023 11:29-0400 SaO2% (BldA) [Mass fraction] 98 % [facility] Comment on above: Performed By: #### [id number] ####SARAH Mcknight ([id number])[facility] ([facility])[address] [place] [address] 06-15-2023 10:27-0400 Body temperature 37.0 Jessica Pang MD Work Phone: [facility] 06-15-2023 10:27-0400 SaO2% (BldA) [Mass fraction] 99 % Jessica Pang MD Work Phone: [facility] 06-15-2023 10:26-0400 Body temperature 37.0 degrees Celsius [facility] Comment on above: Result Comment: NOTE: Patient Results ar e Not Corrected for Temperature Performed By: #### 9 [id number] ####SARAH Mcknight ([id number])[facility] ([facility])[address] [place] [address] 06-15-2023 10:26-0400 SaO2% (BldA) [Mass fraction] 99 % [facility] Comment on above: Performed By: #### [id number] ####SARAH Mcknight ([id number])[facility] ([facility])[address] [place] [address] 06-15-2023 09:17-0400 Body temperature 37.0 Jessica Pang MD Work Phone: [facility] 06-15-2023 09:17-0400 SaO2% (BldA) [Mass fraction] 100 % Jessica Pang MD Work Phone: [facility] 06-15-2023 09:16-0400 Body temperature 37.0 degrees Celsius [facility] Comment on above: Result Comment: NOTE: Patient Results ar e Not Corrected for Temperature Performed By: #### 9 [id number] ####SARAH Mcknight ([id number])[facility])[address] [place] [address] 06-15-2023 09:16-0400 SaO2% (BldA) [Mass fraction] 100 % [facility] Comment on above: Performed By: #### [id number] ####SARAH Mcknight ([id number])[facility] ([facility])[address] [place] [address] 06-15-2023 09:09-0400 Body temperature 37.0 Jessica Pang MD Work Phone: [facility] 06-15-2023 09:09-0400 SaO2% (BldA) [Mass fraction] 99 % Jessica Pang MD Work Phone: [facility] 06-15-2023 08:58-0400 Body temperature 37.0 degrees Celsius [facility] Comment on above: Performed By: #### [id number] ####SARAH Mcknight ([id number])[facility] ([facility])[address] [place] [address] 06-15-2023 08:58-0400 SaO2% (BldA) [Mass fraction] 99 % [facility] Comment on above: Performed By: #### [id number] ####SARAH Mcknight ([id number])[facility] ([facility])[address] [place] [address] 06-15-2023 00:19-0400 Body temperature 37.0 Jessica Pang MD Work Phone: [facility] 06-15-2023 00:19-0400 SaO2% (BldA) [Mass fraction] 98 % Jessica Pang MD Work Phone: [facility] 06-15-2023 00:11-0400 Body temperature 37.0 degrees Celsius [facility] Comment on above: Performed By: #### [id number] ####SARAH Mcknight ([id number])[facility] ([facility])[address] [place] [address] 06-15-2023 00:11-0400 SaO2% (BldA) [Mass fraction] 98 % [facility] Comment on above: Performed By: #### [id number] ####SARAH Mcknight ([id number])[facility] ([facility])[address] [place] [address] 06-14-2023 15:43-0400 Body temperature 37.0 Jessica Pang MD Work Phone: [facility] 06-14-2023 15:43-0400 SaO2% (BldA) [Mass fraction] 98 % Jesisca Pang MD Work Phone: [facility] 06-14-2023 15:40-0400 Body temperature 37.0 degrees Celsius [facility] Comment on above: Performed By: #### [id number] ####SARAH Mcknight ([id number])[facility])[address] [place] [address] 06-14-2023 15:40-0400 SaO2% (BldA) [Mass fraction] 98 % [facility] Comment on above: Performed By: #### [id number] ####SARAH Mcknight ([id number])[facility] ([facility])[address] [place], [place] [id number] 06-14-2023 13:59-0400 Body temperature 37.0 Jessica Pang MD Work Phone: [facility] 06-14-2023 13:59-0400 SaO2% (BldA) [Mass fraction] 97 % Jessica Pang MD Work Phone: [facility] 06-14-2023 13:58-0400 Body temperature 37.0 degrees Celsius [facility] Comment on above: Performed By: #### [id number] ####SARAH Mcknight ([id number])[facility] ([facility])[address] [place] [address] 06-14-2023 13:58-0400 SaO2% (BldA) [Mass fraction] 97 % [facility] Comment on above: Performed By: #### [id number] ####SARAH Mcknight ([id number])[facility] ([facility])[address] [place], [place] [id number] 06-14-2023 13:47-0400 Body temperature 37.0 Jessica Pang MD Work Phone: [facility] 06-14-2023 13:47-0400 SaO2% (BldA) [Mass fraction] 97 % Jessica Pang MD Work Phone: [facility] 06-14-2023 13:30-0400 Body temperature 37.0 degrees Celsius [facility] Comment on above: Performed By: #### [id number] ####SARAH Mcknight ([id number])[facility] ([facility])[address] [place] [address] 06-14-2023 13:30-0400 SaO2% (BldA) [Mass fraction] 97 % [facility] Comment on above: Performed By: #### [id number] ####SARAH Mcknight ([id number])[facility] ([facility])[address] [place] [address] 06-13-2023 23:42-0400 Body temperature 37.0 degrees Celsius [facility] Comment on above: Result Comment: NOTE: Patient Results ar e Not Corrected for Temperature Performed By: #### 2 [id number] ####SARAH Mcknight ([id number])[facility])[address] [place] [address] 06-13-2023 12:40-0400 Body height 175.3 cm Jessica Pang MD Work Phone: [facility] 06-13-2023 10:34-0400 Diastolic blood pressure 74 mm[Hg] [facility] 06-13-2023 10:34-0400 Heart rate 94 /min [facility] 06-13-2023 10:34-0400 Mean blood pressure 105 mm[Hg] [facility] 06-13-2023 10:34-0400 Respiratory rate 22 /min [facility] 06-13-2023 10:34-0400 SaO2% (BldA) [Mass fraction] 97 % [facility] 06-13-2023 10:34-0400 Systolic blood pressure 168 mm[Hg] [facility] 06-13-2023 10:07-0400 Diastolic blood pressure 71 mm[Hg] [facility] 06-13-2023 10:07-0400 Heart rate 106 /min [facility] 06-13-2023 10:07-0400 Mean blood pressure 104 mm[Hg] [facility] 06-13-2023 10:07-0400 Respiratory rate 19 /min [facility] 06-13-2023 10:07-0400 SaO2% (BldA) [Mass fraction] 98 % [facility] 06-13-2023 10:07-0400 Systolic blood pressure 169 mm[Hg] [facility] 06-13-2023 09:00-0400 Diastolic blood pressure 72 mm[Hg] [facility] 06-13-2023 09:00-0400 Heart rate 97 /min [facility] 06-13-2023 09:00-0400 Systolic blood pressure 170 mm[Hg] [facility] 06-13-2023 06:03-0400 Blood Pressure Location [facility] 06-13-2023 06:03-0400 Respiratory rate 16 /min [facility] 06-13-2023 04:15-0400 Body temperature 97.34 [degF] [facility] 06-13-2023 04:15-0400 Heart rate 80 /min [facility] 06-09-2023 14:10-0400 Diastolic blood pressure 58 mm[Hg] [address] 06-09-2023 14:10-0400 Heart rate 72 /min [address] 06-09-2023 14:10-0400 Respiratory rate 21 /min [address] 06-09-2023 14:10-0400 SaO2% (BldA) [Mass fraction] 99 % [address] 06-09-2023 14:10-0400 Systolic blood pressure 123 mm[Hg] [address] 06-09-2023 12:32-0400 Body height 177.[address] 06-09-2023 12:32-0400 Body mass index (BMI) [Ratio] 27.26 kg/m2 [address] 06-09-2023 12:32-0400 Body temperature 98.1 [degF] [address] 06-09-2023 12:32-0400 Body weight 86.[address] 06-09-2023 11:32-0400 Body temperature 98.1 [degF] Gerson Bryan MD Work Phone: [facility] 06-09-2023 11:32-0400 Diastolic blood pressure 69 mm[Hg] Gerson Bryan MD Work Phone: [facility] 06-09-2023 11:32-0400 Heart rate 90 /min Gerson Bryan MD Work Phone: [facility] 06-09-2023 11:32-0400 Systolic blood pressure 127 mm[Hg] Gerson Bryan MD Work Phone: [facility] 05-25-2023 19:39-0400 Body temperature 98.01 [degF] Vivian Espino MD Work Phone: [facility] 05-25-2023 19:39-0400 Diastolic blood pressure 68 mm[Hg] Vivian Espino MD Work Phone: [facility] 05-25-2023 19:39-0400 Heart rate 83 /min Vivian Espino MD Work Phone: [facility] 05-25-2023 19:39-0400 Respiratory rate 13 /min Vivian Espino MD Work Phone: [facility] 05-25-2023 19:39-0400 SaO2% (BldA) [Mass fraction] 100 % Vivian Espino MD Work Phone: [facility] 05-25-2023 19:39-0400 Systolic blood pressure 140 mm[Hg] Vivian Espino MD Work Phone: [facility] 05-25-2023 16:48-0400 Body height 175.3 cm Vivian Espino MD Work Phone: [facility] 05-25-2023 16:48-0400 Body mass index (BMI) [Ratio] 29.53 kg/m2 Vivian Espino MD Work Phone: [facility] 05-25-2023 16:48-0400 Body weight 90.72 kg Vivian Espino MD Work Phone: [facility] 05-25-2023 13:57-0400 Body temperature 98.29 [degF] [facility] 05-25-2023 13:57-0400 Diastolic blood pressure 57 mm[Hg] [facility] 05-25-2023 13:57-0400 Heart rate 83 /min [facility] 05-25-2023 13:57-0400 SaO2% (BldA) [Mass fraction] 100 % [facility] 05-25-2023 13:57-0400 Systolic blood pressure 129 mm[Hg] [facility] 04-21-2023 13:13-0500 Body temperature 97.9 [degF] Nathen De La O DO Work Phone: [facility] 04-21-2023 13:13-0500 Diastolic blood pressure 66 mm[Hg] Nathen Ramonwell DO Work Phone: [facility] 04-21-2023 13:13-0500 Heart rate 83 /min Nathen Ramonwell DO Work Phone: [facility] 04-21-2023 13:13-0500 Respiratory rate 18 /min Nathen Ramonwell DO Work Phone: [facility] 04-21-2023 13:13-0500 SaO2% (BldA) [Mass fraction] 98 % Nathen Ramonwell DO Work Phone: [facility] 04-21-2023 13:13-0500 Systolic blood pressure 118 mm[Hg] Nathen De La O DO Work Phone: [facility] 04-15-2023 08:00-0500 Body mass index (BMI) [Ratio] 23.68 kg/m2 Nathen De La O DO Work Phone: [facility] 04-15-2023 08:00-0500 Body weight 79.2 kg Nathen De La O DO Work Phone: [facility] 04-14-2023 05:05-0500 Body temperature 37.0 Nathen De La O DO Work Phone: [facility] 04-14-2023 04:59-0500 Body temperature 37.0 degrees Celsius [facility] Comment on above: Performed By: #### [id number] ####SARAH Mcknight ([id number])[facility] ([facility])[address] [place] [address] 04-13-2023 18:39-0500 Body temperature 37.0 Nathen De La O DO Work Phone: [facility] 04-13-2023 18:37-0500 Body temperature 37.0 degrees Celsius [facility] Comment on above: Result Comment: NOTE: Patient Results ar e Not Corrected for Temperature Performed By: #### 5 1973-6 ####SARAH Mcknight ([id number])[facility] ([facility])[address] [place] [address] 04-13-2023 18:37-0500 SaO2% (BldA) [Mass fraction] 99 % [facility] Comment on above: Performed By: #### [id number] ####SARAH Mcknight ([id number])[facility] ([facility])[address] [place] [address] 04-13-2023 13:00-0500 Body height 182.9 cm Nathen De La O DO Work Phone: [facility] 04-13-2023 10:47-0500 Heart rate 86 /min [facility] 04-13-2023 10:47-0500 Respiratory rate 18 /min [facility] 04-13-2023 10:47-0500 SaO2% (BldA) [Mass fraction] 100 % [facility] 04-13-2023 09:46-0500 Diastolic blood pressure 46 mm[Hg] [facility] 04-13-2023 09:46-0500 Heart rate 83 /min [facility] 04-13-2023 09:46-0500 Mean blood pressure 72 mm[Hg] [facility] 04-13-2023 09:46-0500 Respiratory rate 18 /min [facility] 04-13-2023 09:46-0500 SaO2% (BldA) [Mass fraction] 100 % [facility] 04-13-2023 09:46-0500 Systolic blood pressure 125 mm[Hg] [facility] 04-13-2023 08:10-0500 Diastolic blood pressure 45 mm[Hg] [facility] 04-13-2023 08:10-0500 Heart rate 86 /min [facility] 04-13-2023 08:10-0500 Mean blood pressure 75 mm[Hg] [facility] 04-13-2023 08:10-0500 Respiratory rate 17 /min [facility] 04-13-2023 08:10-0500 SaO2% (BldA) [Mass fraction] 100 % [facility] 04-13-2023 08:10-0500 Systolic blood pressure 135 mm[Hg] [facility] 04-13-2023 07:02-0500 Diastolic blood pressure 57 mm[Hg] [facility] 04-13-2023 07:02-0500 Hourly Rounding [facility] 04-13-2023 07:02-0500 Mean blood pressure 79 mm[Hg] [facility] 04-13-2023 07:02-0500 Systolic blood pressure 124 mm[Hg] [facility] 04-13-2023 06:51-0500 Hourly Rounding [facility] 04-13-2023 06:51-0500 Promise to Return [facility] 04-13-2023 05:51-0500 Hourly Rounding [facility] 04-13-2023 05:51-0500 Promise to Return [facility] 04-13-2023 05:51-0500 Respiratory rate 16 /min [facility] 04-13-2023 04:51-0500 Body temperature 98.42 [degF] [facility] 04-13-2023 04:51-0500 Heart rate 102 /min [facility] 04-13-2023 04:51-0500 Promise to Return [facility] 04-13-2023 04:51-0500 Respiratory rate 16 /min [facility] 03-26-2023 14:21-0500 Diastolic blood pressure 50 mm[Hg] Hernandez Hankins MD Work Phone: [facility] 03-26-2023 14:21-0500 Heart rate 102 /min Hernandez Hankins MD Work Phone: [facility] 03-26-2023 14:21-0500 Systolic blood pressure 98 mm[Hg] Hernandez Hankins MD Work Phone: [facility] 03-18-2023 14:00-0500 Hourly Rounding [facility] 03-18-2023 14:00-0500 Promise to Return [facility] 03-18-2023 13:25-0500 Hourly Rounding [facility] 03-18-2023 13:25-0500 Promise to Return [facility] 03-18-2023 12:20-0500 Hourly Rounding [facility] 03-18-2023 12:20-0500 Promise to Return [facility] 03-18-2023 10:38-0500 Heart rate 95 /min [facility] 03-18-2023 10:38-0500 SaO2% (BldA) [Mass fraction] 95 % [facility] 03-18-2023 10:38-0500 Diastolic blood pressure 67 mm[Hg] [facility] 03-18-2023 10:38-0500 Mean blood pressure 93 mm[Hg] [facility] 03-18-2023 10:38-0500 Systolic blood pressure 145 mm[Hg] [facility] 03-18-2023 10:38-0500 Body temperature 98.06 [degF] [facility] 03-18-2023 08:14-0500 Diastolic blood pressure 67 mm[Hg] [facility] 03-18-2023 08:14-0500 Systolic blood pressure 145 mm[Hg] [facility] 03-18-2023 08:12-0500 Diastolic blood pressure 67 mm[Hg] [facility] 03-18-2023 08:12-0500 Heart rate 96 /min [facility] 03-18-2023 08:12-0500 Systolic blood pressure 145 mm[Hg] [facility] 03-18-2023 07:27-0500 Heart rate 99 /min [facility] 03-18-2023 07:27-0500 SaO2% (BldA) [Mass fraction] 95 % [facility] 03-18-2023 07:26-0500 Body temperature 99.68 [degF] [facility] 03-18-2023 07:26-0500 Mean blood pressure 93 mm[Hg] [facility] 03-18-2023 02:35-0500 Blood Pressure Location [facility] 03-18-2023 02:35-0500 Body temperature 98.78 [degF] [facility] 03-18-2023 02:35-0500 Mean blood pressure 93 mm[Hg] [facility] 03-18-2023 02:35-0500 Respiratory rate 18 /min [facility] 03-18-2023 02:35-0500 SaO2% (BldA) [Mass fraction] 96 % [facility] 03-17-2023 19:00-0500 Respiratory rate 17 /min [facility] 03-17-2023 15:52-0500 Mean blood pressure 90 mm[Hg] [facility] 03-17-2023 02:45-0500 Blood Pressure Location [facility] 03-17-2023 02:45-0500 Mean blood pressure 91 mm[Hg] [facility] 03-16-2023 20:05-0500 Blood Pressure Location [facility] 03-15-2023 04:00-0500 Heart rate 90 /min [facility] 03-15-2023 04:00-0500 Respiratory rate 18 /min [facility] 03-14-2023 22:21-0500 Heart rate 90 /min [facility] 03-14-2023 15:53-0500 Heart rate 83 /min [facility] 03-06-2023 08:55-0500 Body temperature 98.8 [degF] Vivian Espino MD Work Phone: [facility] 03-06-2023 08:55-0500 Diastolic blood pressure 59 mm[Hg] Vivian Espino MD Work Phone: [facility] 03-06-2023 08:55-0500 Heart rate 87 /min Vivian Espino MD Work Phone: [facility] 03-06-2023 08:55-0500 Respiratory rate 16 /min Vivian Espino MD Work Phone: [facility] 03-06-2023 08:55-0500 SaO2% (BldA) [Mass fraction] 95 % Vivian Espino MD Work Phone: [facility] 03-06-2023 08:55-0500 Systolic blood pressure 158 mm[Hg] Vivian Espino MD Work Phone: [facility] 02-26-2023 03:25-0500 Body temperature 37.0 Vivian Espino MD Work Phone: [facility] 02-26-2023 03:00-0500 Body temperature 37.0 degrees Celsius [facility] Comment on above: Performed By: #### [id number] ####SARAH Mcknight ([id number])[facility] ([facility])[address] [place] [address] 02-25-2023 06:00-0500 Body height 180.3 cm Vivian Espino MD Work Phone: [facility] 02-25-2023 06:00-0500 Body mass index (BMI) [Ratio] 26.49 kg/m2 Vivian Espino MD Work Phone: [facility] 02-25-2023 06:00-0500 Body weight 86.1 kg Vivian Espino MD Work Phone: [facility] 02-25-2023 03:32-0500 Body temperature 37.0 Vivian Espino MD Work Phone: [facility] 02-25-2023 03:29-0500 Body temperature 37.0 degrees Celus [facility] Comment on above: Performed By: #### [id number] ####SARAH Mcknight ([id number])[facility] ([facility])[id number] [place] [id number] 02-24-2023 19:54-0500 Heart rate 107 /min [facility] 02-24-2023 19:54-0500 Respiratory rate 22 /min [facility] 02-24-2023 19:54-0500 SaO2% (BldA) [Mass fraction] 97 % [facility] 02-24-2023 19:24-0500 Diastolic blood pressure 63 mm[Hg] [facility] 02-24-2023 19:24-0500 Heart rate 101 /min [facility] 02-24-2023 19:24-0500 Mean blood pressure 90 mm[Hg] [facility] 02-24-2023 19:24-0500 Respiratory rate 24 /min [facility] 02-24-2023 19:24-0500 SaO2% (BldA) [Mass fraction] 98 % [facility] 02-24-2023 19:24-0500 Systolic blood pressure 145 mm[Hg] [facility] 02-24-2023 19:00-0500 Hourly Rounding [facility] 02-24-2023 19:00-0500 Promise to Return [facility] 02-24-2023 18:30-0500 Diastolic blood pressure 59 mm[Hg] [facility] 02-24-2023 18:30-0500 Heart rate 101 /min [facility] 02-24-2023 18:30-0500 Mean blood pressure 85 mm[Hg] [facility] 02-24-2023 18:30-0500 Respiratory rate 16 /min [facility] 02-24-2023 18:30-0500 SaO2% (BldA) [Mass fraction] 98 % [facility] 02-24-2023 18:30-0500 Systolic blood pressure 138 mm[Hg] [facility] 02-24-2023 18:00-0500 Hourly Rounding [facility] 02-24-2023 18:00-0500 Promise to Return [facility] 02-24-2023 17:30-0500 Diastolic blood pressure 56 mm[Hg] [facility] 02-24-2023 17:30-0500 Mean blood pressure 89 mm[Hg] [facility] 02-24-2023 17:30-0500 Systolic blood pressure 154 mm[Hg] [facility] 02-24-2023 16:36-0500 Body temperature 98.96 [degF] [facility] 02-24-2023 16:36-0500 Heart rate 101 /min [facility] 02-24-2023 16:36-0500 Respiratory rate 18 /min [facility] 02-03-2023 18:23-[address] [facility] 02-03-2023 18:23-[address] [facility] 02-03-2023 17:08-[address] [facility] 02-03-2023 17:08-[address] [facility] 02-03-2023 17:00-0500 Body temperature 97.88 [degF] [facility] 02-03-2023 17:00-0500 Diastolic blood pressure 71 mm[Hg] [facility] 02-03-2023 17:00-0500 Heart rate 73 /min [facility] 02-03-2023 17:00-0500 SaO2% (BldA) [Mass fraction] 97 % [facility] 02-03-2023 17:00-0500 Systolic blood pressure 133 mm[Hg] [facility] 02-03-2023 16:08-[address] [facility] 02-03-2023 16:08-[address] [facility] 02-03-2023 08:02-0500 Diastolic blood pressure 66 mm[Hg] [facility] 02-03-2023 08:02-0500 Heart rate 72 /min [facility] 02-03-2023 08:02-0500 Systolic blood pressure 135 mm[Hg] [facility] 02-03-2023 08:00-0500 Body temperature 98.06 [degF] [facility] 02-03-2023 08:00-0500 SaO2% (BldA) [Mass fraction] 96 % [facility] 02-03-2023 00:45-[address] [facility] 02-03-2023 00:45-0500 Body temperature 97.7 [degF] [facility] 02-03-2023 00:45-0500 Diastolic blood pressure 65 mm[Hg] [facility] 02-03-2023 00:45-0500 Heart rate 76 /min [facility] 02-03-2023 00:45-0500 Mean blood pressure 86 mm[Hg] [facility] 02-03-2023 00:45-0500 SaO2% (BldA) [Mass fraction] 96 % [facility] 02-03-2023 00:45-0500 Systolic blood pressure 129 mm[Hg] [facility] 02-02-2023 21:28-0500 Heart rate 73 /min [facility] 02-02-2023 15:51-0500 Mean blood pressure 93 mm[Hg] [facility] 02-02-2023 15:51-0500 Body temperature 97.52 [degF] [facility] 02-02-2023 10:51-0500 Mean blood pressure 83 mm[Hg] [facility] 02-02-2023 10:50-0500 Body temperature 97.88 [degF] [facility] 02-02-2023 07:25-0500 Mean blood pressure 85 mm[Hg] [facility] 02-02-2023 07:25-0500 Body temperature 98.42 [degF] [facility] 02-02-2023 00:20-[address] [facility] 02-02-2023 00:20-0500 Respiratory rate 16 /min [facility] 02-01-2023 21:44-0500 Heart rate 79 /min [facility] 02-01-2023 04:30-0500 Mean blood pressure 82 mm[Hg] [facility] 02-01-2023 04:30-0500 Respiratory rate 16 /min [facility] 02-01-[facility] 00:00-0500 Mean blood pressure 92 mm[Hg[facility] 01-31-2023 21:34-0500 Heart rate 98 /min [facility] 01-31-2023 18:47-[address] [facility] 01-31-2023 18:47-0500 Heart rate 75 /min [facility] 01-31-2023 14:44-0500 Heart rate 93 /min [facility] 01-31-2023 14:44-0500 Respiratory rate 18 /min [facility] 01-21-2023 17:29-0500 Body temperature 100 [degF] Arslan Vasquez MD Work Phone: [facility] 01-21-2023 17:29-0500 Diastolic blood pressure 64 mm[Hg] Arslan Vasquez MD Work Phone: [facility] 01-21-2023 17:29-0500 Heart rate 87 /min Arslan Vasquez MD Work Phone: [facility] 01-21-2023 17:29-0500 Respiratory rate 18 /min Arslan Vasquez MD Work Phone: [facility] 01-21-2023 17:29-0500 SaO2% (BldA) [Mass fraction] 97 % Arslan Vasquez MD Work Phone: [facility] 01-21-2023 17:29-0500 Systolic blood pressure 167 mm[Hg] Arslan Vasquez MD Work Phone: [facility] 01-15-2023 06:33-0400 Body height 175.3 cm Arslan Vasquez MD Work Phone: [facility] 01-15-2023 06:33-0400 Body mass index (BMI) [Ratio] 30.27 kg/m2 Arslan Vasquez MD Work Phone: [facility] 01-15-2023 06:33-0400 Body weight 92.99 kg Arslan Vasquez MD Work Phone: [facility] 01-10-2023 01:30-0400 Heart rate 74 /min Maxwell Rivero DO Work Phone: [email or web address] 01-10-2023 01:30-0400 Respiratory rate 13 /min Maxwell Rivero DO Work Phone: [email or web address] 01-10-2023 01:30-0400 SaO2% (BldA) [Mass fraction] 97 % Maxwell Rivero DO Work Phone: [email or web address] 01-09-2023 18:00-0400 Diastolic blood pressure 57 mm[Hg] Maxwell Rivero DO Work Phone: [email or web address] 01-09-2023 18:00-0400 Systolic blood pressure 148 mm[Hg] Maxwell Francisrs DO Work Phone: [email or web address] 01-09-2023 14:47-0400 Body temperature 97.9 [degF] Maxwell Rivero DO Work Phone: [email or web address] 01-09-2023 13:45-0400 Diastolic blood pressure 79 mm[Hg] II Aishwarya Lundy Work Phone: [facility] 01-09-2023 13:45-0400 Heart rate 91 /min II Aishwarya Lundy Work Phone: [facility] 01-09-2023 13:45-0400 Respiratory rate 20 /min II Aishwarya Lundy Work Phone: [facility] 01-09-2023 13:45-0400 SaO2% (BldA) [Mass fraction] 100 % II Aishwarya Lundy Work Phone: [facility] 01-09-2023 13:45-0400 Systolic blood pressure 179 mm[Hg] II Aishwarya Lundy Work Phone: [facility] 01-09-2023 12:20-0400 Body temperature 98.3 [degF] II Aishwarya Lundy Work Phone: [facility] 01-09-2023 09:33-0400 Body height 175.26 cm II Aishwarya Lundy Work Phone: [facility] 01-09-2023 09:33-0400 Body weight 89.35 kg II Aishwarya Lundy Work Phone: [facility] 12-24-2022 12:00-0400 Body height 175.26 cm Richard Mays Other [employer] Other 12-24-2022 12:00-0400 Body mass index (BMI) [Ratio] 28.5 kg/m2 Richard Mays Other [employer] Other 12-24-2022 12:00-0400 Body temperature 98.6 [degF] Richard Mays Other [employer] Other 12-24-2022 12:00-0400 Body weight 87.54 kg Richard Mays Other [employer] Other 12-24-2022 12:00-0400 Diastolic blood pressure 64 mm[Hg] Richard Mays Other [employer] Other 12-24-2022 12:00-0400 Respiratory rate 20 /min Richard Mays Other [employer] Other 12-24-2022 12:00-0400 SaO2% (BldA) [Mass fraction] 97 % Richard Mays Other [employer] Other 12-24-2022 12:00-0400 Systolic blood pressure 138 mm[Hg] Richard Mays Other [employer] Other 09-25-2022 14:47-0400 Body height 175.26 cm Aishwarya Rodriguez [employer] Work Phone: [employer] DO Work Phone: 09-25-2022 14:47-0400 Body mass index (BMI) [Ratio] Medical Reason Not Done Aishwarya Lundy Work Phone: [employer] DO Work Phone: 09-25-2022 14:47-0400 Diastolic blood pressure 58 mm[Hg] Aishwarya Lundy Work Phone: [employer] DO Work Phone: 09-25-2022 14:47-0400 Heart rate 87 /min Aishwarya Lundy Work Phone: [employer] DO Work Phone: 09-25-2022 14:47-0400 Systolic blood pressure 124 mm[Hg] Aishwarya Lundy Work Phone: [facility] Work Phone: 09-01-2022 15:20-0400 Body height 175.26 cm [employer] Other [employer] Other 09-01-2022 15:20-0400 Body mass index (BMI) [Ratio] 28.06 kg/m2 [employer] Other [employer] Other 09-01-2022 15:20-0400 Body temperature 99.5 [degF] Aziz Bakhous Other [employer] Other 09-01-2022 15:20-0400 Body weight 86.18 kg Hitesh Pedroza Other [employer] Other 09-01-2022 15:20-0400 Diastolic blood pressure 78 mm[Hg] Hitesh Dees Other [employer] Other 09-01-2022 15:20-0400 Respiratory rate 18 /min Hitesh Dees Other [employer] Other 09-01-2022 15:20-0400 SaO2% (BldA) [Mass fraction] 98 % Hitesh Dees Other [employer] Other 09-01-2022 15:20-0400 Systolic blood pressure 147 mm[Hg] Hitesh Dees Other [employer] Other 06-29-2022 15:54-0400 Diastolic blood pressure 64 mm[Hg] II Aishwarya Lundy Work Phone: [facility] 06-29-2022 15:54-0400 Heart rate 78 /min II Aishwarya Lundy Work Phone: [facility] 06-29-2022 15:54-0400 Respiratory rate 20 /min II Aishwarya Lundy Work Phone: [facility] 06-29-2022 15:54-0400 SaO2% (BldA) [Mass fraction] 96 % II Aishwarya Lundy Work Phone: [facility] 06-29-2022 15:54-0400 Systolic blood pressure 112 mm[Hg] II Aishwarya Lundy Work Phone: [facility] 06-29-2022 06:00-0400 Body weight 94 kg II Aishwarya Lundy Work Phone: [facility] 06-29-2022 04:00-0400 Body temperature 98.1 [degF] II Aishwarya Lundy Work Phone: [facility] 06-26-2022 15:00-0400 Body height 175.26 cm II Aishwarya Lundy Work Phone: [facility] 03-27-2022 14:22-0500 Body height 175.26 cm Hernandez Hankins MD Work Phone: AF-Guxydfywjp-Fkqut harry 250 DO Work Phone: 03-27-2022 14:22-0500 Body mass index (BMI) [Ratio] 30.13 kg/m2 Hernandez Hankins MD Work Phone: XJ-Axpurhgxrv-Ihhmk harry 250 DO Work Phone: 03-27-2022 14:22-0500 Body surface area Derived from formula 2.08 m2 Hernandez Hankins MD Work Phone: YD-Qcxzakavcy-Bdmcd [employer] 250 DO Work Phone: 03-27-2022 14:22-0500 Body weight 92.53 kg Hernandez Hankins MD Work Phone: TB-Qnvdqfozqn-Xjiqr [employer] 250 DO Work Phone: 03-27-2022 14:22-0500 Diastolic blood pressure 54 mm[Hg] Hernandez Hankins MD Work Phone: SB-Ofyivopptn-Jnxgs [facility] 250 DO Work Phone: 03-27-2022 14:22-0500 Heart rate 76 /min Hernandez Hankins MD Work Phone: QV-Fglgtuxrsc-Gjwrs harry 250 DO Work Phone: 03-27-2022 14:22-0500 Systolic blood pressure 130 mm[Hg] Hernandez Hankins MD Work Phone: YH-Urunahqwvy-Phrzp harry 250 DO Work Phone: 03-27-2022 13:36-0500 Body mass index (BMI) [Ratio] Medical Reason Not Done Hernandez Hankins MD Work Phone: TG-Qogjcmrsap-Gtbek harry 250 DO Work Phone: 03-27-2022 13:36-0500 Diastolic blood pressure 54 mm[Hg] Hernandez Hankins MD Work Phone: XQ-Kbuokjwpvy-Ekvfv harry 250 DO Work Phone: 03-27-2022 13:36-0500 Heart rate 82 /min Hernandez Hankins MD Work Phone: JF-Drafsfixrx-Btvcr harry 250 DO Work Phone: 03-27-2022 13:36-0500 Systolic blood pressure 144 mm[Hg] Hernandez Hankins MD Work Phone: JC-Ckfokphddk-Meslr harry 250 DO Work Phone: 02-24-2022 16:20-0500 Body height 175.26 cm Hitesh [employer] Other [employer] Other 02-24-2022 16:20-0500 Body mass index (BMI) [Ratio] 29.89 kg/m2 Hitesh [employer] Other [employer] Other 02-24-2022 16:20-0500 Body temperature 98.2 [degF] Hitesh [employer] Other [employer] Other 02-24-2022 16:20-0500 Body weight 91.81 kg Hitesh [employer] Other [employer] Other 02-24-2022 16:20-0500 Diastolic blood pressure 72 mm[Hg] Hitesh [employer] Other [employer] Other 02-24-2022 16:20-0500 Respiratory rate 18 /min Aziz Bakhous Other [employer] Other 02-24-2022 16:20-0500 SaO2% (BldA) [Mass fraction] 98 % Aziz Bakhous Other [employer] Other 02-24-2022 16:20-0500 Systolic blood pressure 154 mm[Hg] Aziz Bakhous Other [employer] Other 07-23-2021 16:40-0400 Body height 175.26 cm Aziz Bakhous Other [employer] Other 07-23-2021 16:40-0400 Body mass index (BMI) [Ratio] 31.08 kg/m2 Azmichelle Bakhous Other [employer] Other 07-23-2021 16:40-0400 Body temperature 98.9 [degF] Aziz Bakhous Other [employer] Other 07-23-2021 16:40-0400 Body weight 95.48 kg Azmichelle Bakhous Other [employer] Other 07-23-2021 16:40-0400 Diastolic blood pressure 74 mm[Hg] Aziz Bakhous Other [employer] Other 07-23-2021 16:40-0400 Respiratory rate 18 /min Aziz Bakhous Other [employer] Other 07-23-2021 16:40-0400 SaO2% (BldA) [Mass fraction] 98 % Aziz Bakhous Other [employer] Other 07-23-2021 16:40-0400 Systolic blood pressure 137 mm[Hg] Hitesh Pedroza Other [employer] Other 01-23-2021 13:30-0500 60 1 [id number] RODO HHVI ULTRASOUND 01 Work Phone: -[facility] [address] [place] Work Phone: Comment on above: [id number] Encounters Encounter Date Encounter Type Care Provider Facility Start: 08-14-2024 ambulatory Ruth Ann Engel ty:MAE Sow Start: 11-03-2023 End: 11-03-2023 ambulatory UNKNOWN PROVIDER Facility:[facility] Start: 09-08-2023 End: 09-08-2023 ambulatory [facility] Ambulatory Start: 07-13-2023 End: 07-13-2023 ambulatory [facility] Work Phone: Start: 07-13-2023 End: 07-13-2023 Patient encounter procedure [facility] Work Phone: Start: 07-09-2023 End: 07-09-2023 ambulatory VON GERARD Not Available Start: 06-29-2023 End: 06-29-2023 ambulatory [facility] Start: 06-13-2023 End: 06-21-2023 Encounter for preprocedural cardiovascular examination [facility] Start: 06-13-2023 End: 06-21-2023 Evaluation and management of inpatient Jessica Pang MD Work Phone: [facility] [place] 9 Start: 06-13-2023 End: 06-21-2023 Patient encounter status Jessica Pang MD Work Phone: [facility] Work Phone: Start: 06-13-2023 End: 06-13-2023 Emergency department patient visit [facility] Start: 06-09-2023 End: 06-10-2023 ambulatory [facility] Start: 06-09-2023 End: 06-09-2023 Subsequent hospital visit by physician Vinicius Ir 4 [facility] Comment on above: Cholecystitis Start: 06-09-2023 End: 06-09-2023 Office outpatient visit 15 minutes Gerson Bryan MD Work Phone: [facility] Comment on above: Dahiana's gangrene (Primary Dx); S/P orchiectomy; Infected hydrocele; BPH with obstruction/lower urinary tract symptoms Start: 06-09-2023 End: 06-09-2023 ambulatory [facility] Start: 05-25-2023 End: 05-25-2023 Emergency department patient visit VIVIAN KENZIE [facility] Start: 05-25-2023 End: 05-25-2023 Emergency department patient visit Vivian Espino MD Work Phone: [facility] Comment on above: Hypomagnesemia (Prim donna Dx) Start: 05-25-2023 End: 05-25-2023 ambulatory [facility]ulatory Start: 05-25-2023 End: 05-25-2023 Subsequent hospital visit by physician Ly Cisneros Ultras[facility] Comment on above: Scrotal abscess; Infected hydrocele; Escherichia coli infection; Slime parapsilosis infection Start: 05-25-2023 End: 05-25-2023 ambulatory [facility] Start: 04-28-2023 Chart abstracting Maritza richmond ACADEMIC ADVISEMENT DIRECTOR Work Phone: [facility] Start: 04-27-2023 End: 04-27-2023 ambulatory [facility] Start: 04-22-2023 End: 05-19-2023 ambulatory [facility] Facility:[facility] Start: 04-13-2023 End: 04-21-2023 Evaluation and management of inpatient Nathen De La O DO Work Phone: [facility] 5 Start: 04-13-2023 End: 04-13-2023 Emergency department patient visit Won CandelarioAnthony Slick [facility] Start: 03-26-2023 End: 03-26-2023 ambulatory HERNANDEZ HANKINS [facility] Ambulatory Start: 03-26-2023 End: 03-26-2023 Office outpatient visit 25 minutes Hernandez Hankins MD Work Phone: [facility] Comment on above: 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 Start: 02-24-2023 End: 03-06-2023 Evaluation and management of inpatient Vivian Espino MD Work Phone: [facility] [place] [facility] Start: 02-24-2023 End: 02-24-2023 Emergency department patient visit Gena Garzon [facility] Start: 02-24-2023 End: 02-24-2023 ambulatory Hitesh Pedroza Other [employer] Other Start: 02-24-2023 Telephone encounter Hitesh Pedroza [facility] Start: 02-15-2023 End: 02-15-2023 ambulatory Chao Kilgore Other [employer] Other Start: 02-15-2023 Telephone encounter Chao Kilgore [facility] Start: 02-09-2023 End: 03-10-2023 ambulatory AISHWARYA LUNDY Facility:[facility] Start: 02-08-2023 End: 03-10-2023 ambulatory MD HITESH PEDROZA Facility:[facility] Start: 01-31-2023 End: 02-03-2023 Evaluation and management of inpatient Abdirizak MARTIN Facility:[facility] Start: 01-31-2023 End: 02-03-2023 [facility] Start: 01-10-2023 End: 01-10-2023 ambulatory UNKNOWN PROVIDER Facility:[facility] Start: 01-10-2023 End: 01-21-2023 Evaluation and management of inpatient Arslan Vasquez MD Work Phone: [facility] 5 Comment on above: Diverticulitis (Prim donna Dx); Urinary retention; Encounter for aftercare following kidney transplant; Kidney transplant status Start: 01-09-2023 End: 01-10-2023 ambulatory UNKNOWN PROVIDER Facility:[facility] Start: 01-09-2023 End: 01-10-2023 Emergency department patient visit Maxwell Rivero DO Work Phone: [facility] Comment on above: Consult with special ist (Surgical consult) Start: 01-09-2023 End: 01-09-2023 Emergency department patient visit Matthew Marin Facility:[facility] Start: 01-09-2023 End: 01-09-2023 Emergency department patient visit II Aishwarya Kamron Work Phone: [facility] Work Phone: Start: 01-09-2023 Emergency department patient visit UNKNOWN PROVIDER Facility:[facility] Start: 12-24-2022 End: 12-24-2022 ambulatory Richard Mays Other [employer] [facility] [employer] Other Start: 12-24-2022 Office outpatient ne w 45 minutes Kamjesus Alvesrhonda [facility] Start: 12-16-2022 End: 03-16-2023 ambulatory AISHWARYA LUNDY Facility:[facility] Start: 12-16-2022 End: 03-16-2023 Recurring AISHWARYA LUNDY [facility] Start: 12-04-2022 End: 12-04-2022 ambulatory Aziz Bakhous Other [employer] Other Start: 12-04-2022 Telephone encounter Aziz Bakhous [facility] Start: 11-17-2022 End: 11-17-2022 ambulatory Aziz Bakhous Other [employer] Other Start: 11-17-2022 Telephone encounter Aziz Bakhous [facility] Start: 11-05-2022 End: 11-05-2022 ambulatory Aziz Bakhous Other [employer] Other Start: 11-05-2022 Telephone encounter Aziz Bakhous [facility] Start: 09-25-2022 Office outpatient vi sit 25 minutes Aishwarya Lundy Work Phone: [facility] 250 DO Work Phone: Start: 09-25-[address] Hernandez messer [facility] Facility: Start: 09-24-2022 End: 09-24-2022 ambulatory Sofia Kemi Other [employer] Other Start: 09-24-2022 Telephone encounter Sofia Kemi [facility] Start: 09-01-2022 End: 09-01-2022 ambulatory Aziz Bakhous Other [employer] Other Start: 09-01-2022 Office outpatient vi sit 25 minutes Aziz Bakhous [facility] Start: 09-01-2022 Telephone encounter Sofia Mcmullen [facility] Nephrology Start: 08-11-2022 Chart Update Hernandez weems MD Work Phone: [facility] 250 DO Work Phone: Start: 08-05-2022 ambulatory Hernandez Hankins Facilit y:[id number] Start: 07-09-2022 End: 07-10-[address] DOCTOR CHAMORRO Facility:[facility] Start: 07-08-2022 End: 07-08-2022 ambulatory Alfred Lugo Other [employer] Other Start: 07-08-2022 Telephone encounter [facility] Start: 06-25-2022 End: 06-29-2022 Evaluation and management of inpatient Azmichelle Pedroza Facility:[facility] Start: 06-25-2022 End: 06-29-2022 Evaluation and management of inpatient YOBANI Lundy Work Phone: [facility] [place] [facility] Work Phone: Start: 06-24-2022 End: 06-25-[address] PAUL MORA Facility:[facility] Start: 06-17-2022 End: 06-19-2022 Evaluation and management of inpatient DR TIFFANI HERRERA . Facility:[facility] Start: 06-15-2022 End: 06-15-2022 ambulatory HERMES REZA . Facility:[facility] Start: 06-04-2022 End: 06-05-[address] AISHWARYA LUNDY Facility:[facility] Start: 06-01-2022 End: 06-01-2022 ambulatory Kamarimichelle Pedroza Other [employer] Other Start: 06-01-2022 Telephone encounter Hitesh Pedroza [facility] Nephrology Start: 04-21-[address] DOCTOR CHAMORRO Facility :[facility] Start: 03-27-2022 Office outpatient vi sit 25 minutes Hernandez Hankins MD Work Phone: [facility] 250 DO Work Phone: Start: 03-18-2022 End: 03-18-2022 ambulatory Aziz Bakhous Other [employer] Other Start: 03-18-2022 Telephone encounter Aziz Bakhous [facility] Start: 03-12-2022 End: 03-12-2022 ambulatory Marilee Lopez Other [employer] Other Start: 03-12-2022 Telephone encounter Marilee Elashi [facility] Start: 02-24-2022 End: 02-24-2022 ambulatory Aziz Bakhous Other [employer] Other Start: 02-24-2022 Office outpatient vi sit 25 minutes Aziz Bakhous [facility] Start: 12-18-2021 End: 12-19-[address] MARILEE LOPEZ Facility:[facility] Start: 11-19-2021 End: 11-19-2021 ambulatory Sofia Kemi Other [employer] Other Start: 11-19-2021 Telephone encounter Sofia Kemi [facility] Start: 07-23-2021 End: 07-23-2021 ambulatory Aziz Bakhous Other [employer] Other Start: 07-23-2021 Office outpatient vi sit 25 minutes Aziz Bakhous [facility] Start: 07-17-2021 End: 07-18-[address] MARILEE LOPEZ Facility:[facility] Start: 03-31-2021 Rx Renewal Hernandez weems MD Work Phone: [facility] 250 DO Work Phone: Start: 01-27-2021 Chart Update Hernandez weems MD Work Phone: [facility] 250 DO Work Phone: Start: 01-23-2021 Patient encounter procedure [id number] RODO HHVI ULTRASOUND 01 Work Phone: [facility] [address] [place] Work Phone: Start: 12-24-2020 Rx Renewal Hernandez weems MD Work Phone: [facility] 250 DO Work Phone: Procedures Date Procedure Procedure Detail Performing Clinician Start: 06-29-2023 FOLLOW UP IN GENERAL SURGERY JIMENEZ Weems Start: 06-21-2023 Glucose [Mass/volume] in Serum or Plasma ARSLAN VASQUEZ Start: 06-21-2023 Glucose quantitative blood xcpt reagent strip Francisco Olson MD Work Phone: Start: 06-21-2023 DISCHARGE PATIENT ARSLAN VASQUEZ Start: 06-21-2023 ADULT DISCHARGE DIET ARSLAN VASQUEZ Start: 06-21-2023 DISCHARGE ACTIVITY ARSLAN VASQUEZ Start: 06-21-2023 DISCHARGE DRAIN/TUBE CARE ARSLAN VASQUEZ Start: 06-21-2023 NOTIFY PROVIDER (DO NOT PROMPT FOR PARAMETERS) ARSLAN VASQUEZ Start: 06-21-2023 Glucose [Mass/volume] in Serum or Plasma ARSLAN VASQUEZ Start: 06-21-2023 Tacrolimus [Mass/volume] in Blood ARSLAN VASQUEZ Start: 06-21-2023 Glucose quantitative blood xcpt reagent strip Francisco Olson MD Work Phone: Start: 06-21-2023 Drug screen quantitative tacrolimus Bruce Howard MD Work Phone: Start: 06-21-2023 Glucose [Mass/volume] in Serum or Plasma ARSLAN VASQUEZ Start: 06-21-2023 Glucose quantitative blood xcpt reagent strip Francisco Olson MD Work Phone: Start: 06-21-2023 Glucose [Mass/volume] in Serum or Plasma ARSLAN PEDRO Start: 06-21-2023 Glucose quantitative blood xcpt reagent strip Francisco Olson MD Work Phone: Start: 06-20-2023 Glucose [Mass/volume] in Serum or Plasma ARSLAN PEDRO Start: 06-20-2023 Glucose quantitative blood xcpt reagent strip Francisco Olson MD Work Phone: Start: 06-20-2023 Glucose [Mass/volume] in Serum or Plasma ARSLAN VASQUEZ Start: 06-20-2023 Glucose quantitative blood xcpt reagent strip Francisco Olson MD Work Phone: Start: 06-20-2023 Glucose [Mass/volume] in Serum or Plasma ARSLAN VASQUEZ Start: 06-20-2023 Glucose quantitative blood xcpt reagent strip Francisco Olson MD Work Phone: Start: 06-20-2023 Glucose [Mass/volume] in Serum or Plasma ARSLAN VASQUEZ Start: 06-20-2023 CBC panel - Blood by Automated count ARSLAN VASQUEZ Start: 06-20-2023 Magnesium [Mass/volume] in Serum or Plasma ARSLAN VASQUEZ Start: 06-20-2023 RENAL FUNCTION PANEL ARSLAN VASQUEZ Start: 06-20-2023 Tacrolimus [Mass/volume] in Blood ARSLAN VASQUEZ Start: 06-20-2023 Glucose quantitative blood xcpt reagent strip Francisco Olson MD Work Phone: Start: 06-20-2023 Glucose [Mass/volume] in Serum or Plasma ARSLAN VASQUEZ Start: 06-20-2023 Drug screen quantitative tacrolimus Bruce Howard MD Work Phone: Start: 06-20-2023 Renal function panel Mayela Avila MD Work Phone: Start: 06-20-2023 Glucose quantitative blood xcpt reagent strip Francisco Olson MD Work Phone: Start: 06-20-2023 Glucose [Mass/volume] in Serum or Plasma ARSLAN VASQUEZ Start: 06-20-2023 Glucose quantitative blood xcpt reagent strip Francisco Olson MD Work Phone: Start: 06-19-2023 Glucose [Mass/volume] in Serum or Plasma ARSLAN VASQUEZ Start: 06-19-2023 Glucose quantitative blood xcpt reagent strip Francisco Olson MD Work Phone: Start: 06-19-2023 Glucose [Mass/volume] in Serum or Plasma ARSLAN VASQUEZ Start: 06-19-2023 Glucose quantitative blood xcpt reagent strip Francisco Olson MD Work Phone: Start: 06-19-2023 Glucose [Mass/volume] in Serum or Plasma ARSLAN VASQUEZ Start: 06-19-2023 Glucose quantitative blood xcpt reagent strip Francisco Olson MD Work Phone: Start: 06-19-2023 Glucose [Mass/volume] in Serum or Plasma ARSLAN VASQUEZ Start: 06-19-2023 Glucose quantitative blood xcpt reagent strip Francisco Olson MD Work Phone: Start: 06-19-2023 Magnesium [Mass/volume] in Serum or Plasma ARSLAN VASQUEZ Start: 06-19-2023 RENAL FUNCTION PANEL ARSLAN VASQUEZ Start: 06-19-2023 VANCOMYCIN ARSLAN VASQUEZ Start: 06-19-2023 CBC panel - Blood by Automated count ARSLAN VASQUEZ Start: 06-19-2023 Tacrolimus [Mass/volume] in Blood ARSLAN VASQUEZ Start: 06-19-2023 End: 06-19-2023 Drug screen quantitative vancomycin Jill D Rhonda UNLEAVENED DOUGH 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 Work Phone: Start: 06-19-2023 End: 06-19-2023 Renal function panel Mayela Avila MD Work Phone: Start: 06-19-2023 Glucose [Mass/volume] in Serum or Plasma ARSLAN VASQUEZ Start: 06-19-2023 Glucose quantitative blood xcpt reagent strip Francisco Olson MD Work Phone: Start: 06-18-2023 Glucose [Mass/volume] in Serum or Plasma ARSLAN VASQUEZ Start: 06-18-2023 Glucose quantitative blood xcpt reagent strip Francisco Olson MD Work Phone: Start: 06-18-2023 TRANSFUSE RED BLOOD CELLS ARSLAN VASQUEZ Start: 06-18-2023 TYPE AND SCREEN ARSLAN VASQUEZ Start: 06-18-2023 PREPARE RBC ARSLAN VASQUEZ Start: 06-18-2023 ECG 12-LEAD ARSLAN VASQUEZ Start: 06-18-2023 Glucose [Mass/volume] in Serum or Plasma ARSLAN VASQUEZ Start: 06-18-2023 Blood typing serologic rh (d) Rosaline salazar MD Work Phone: Start: 06-18-2023 CBC panel - Blood by Automated count ARSLAN VASQUEZ Start: 06-18-2023 Ferritin [Mass/volume] in Serum or Plasma ARSLAN VASQUEZ Start: 06-18-2023 IRON AND TIBC ARSLAN VASQUEZ Start: 06-18-2023 Lactate dehydrogenase [Enzymatic activity/volume] in Serum or Plasma ARSLAN VASQUEZ Start: 06-18-2023 Magnesium [Mass/volume] in Serum or Plasma ARSLAN VASQUEZ Start: 06-18-2023 RENAL FUNCTION PANEL ARSLAN VASQUEZ Start: 06-18-2023 PREPARE RBC Rosaline Rivas MD Work Phone: Start: 06-18-2023 Ecg routine ecg w/least 12 lds trcg only w/o i&r Jill D Rhonda UNLEAVENED DOUGH 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 Work Phone: Start: 06-18-2023 Glucose quantitative blood xcpt reagent strip Francisco Olson MD Work Phone: Start: 06-18-2023 Renal function panel Mayela Avila MD Work Phone: Start: 06-18-2023 Glucose [Mass/volume] in Serum or Plasma ARSLAN VASQUEZ Start: 06-18-2023 Glucose quantitative blood xcpt reagent strip Francisco Olson MD Work Phone: Start: 06-18-2023 Glucose [Mass/volume] in Serum or Plasma ARSLAN VASQUEZ Start: 06-18-2023 Glucose quantitative blood xcpt reagent strip Francisco Olson MD Work Phone: Start: 06-18-2023 Glucose [Mass/volume] in Serum or Plasma ARSLAN VASQUEZ Start: 06-17-2023 Glucose quantitative blood xcpt reagent strip Francisco Olson MD Work Phone: Start: 06-17-2023 Glucose [Mass/volume] in Serum or Plasma ARSLAN VASQUEZ Start: 06-17-2023 Glucose quantitative blood xcpt reagent strip Francisco Olson MD Work Phone: Start: 06-17-2023 Tacrolimus [Mass/volume] in Blood ARSLAN VASQUEZ Start: 06-17-2023 Glucose [Mass/volume] in Serum or Plasma ARSLAN VASQUEZ Start: 06-17-2023 Drug screen quantitative tacrolimus Jill D Rhonda UNLEAVENED DOUGH 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 Work Phone: Start: 06-17-2023 Glucose quantitative blood xcpt reagent strip Francisco Olson MD Work Phone: Start: 06-17-2023 Glucose [Mass/volume] in Serum or Plasma ARSLAN VASQUEZ Start: 06-17-2023 TRANSFER PATIENT TO NEW UNIT ARSLAN LEIGH Start: 06-17-2023 Glucose quantitative blood xcpt reagent strip Francisco Olson MD Work Phone: Start: 06-17-2023 Glucose [Mass/volume] in Serum or Plasma ARSLAN VASQUEZ Start: 06-17-2023 WOUND OSTOMY NURSING CONSULT ARSLAN LEIGH Start: 06-17-2023 Tacrolimus [Mass/volume] in Blood ARSLAN VASQUEZ Start: 06-17-2023 VANCOMYCIN ARSLAN VASQUEZ Start: 06-17-2023 End: 06-17-2023 Glucose quantitative blood xcpt reagent strip Maxwell Gonzalez MD Work Phone: Start: 06-17-2023 Glucose [Mass/volume] in Serum or Plasma ARSLAN VASQUEZ Start: 06-17-2023 WOUND OSTOMY NURSING CONSULT Dhruv solis PA-C Work Phone: Start: 06-17-2023 Drug screen quantitative vancomycin Ahmad A Arias UNLEAVENED DOUGH 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 Work Phone: Start: 06-17-2023 Glucose quantitative blood xcpt reagent strip Maxwell Gonzalez MD Work Phone: Start: 06-17-2023 EXTRA TUBES ARSLAN VASQUEZ Start: 06-17-2023 LIGHT BLUE TOP ARSLAN VASQUEZ Start: 06-17-2023 BLOOD GAS ARTERIAL UNSOLICITED ARSLAN CHANDLER DENTON Start: 06-17-2023 CALCIUM, IONIZED ARSLAN VASQUEZ Start: 06-17-2023 CBC panel - Blood by Automated count ARSLAN VASQUEZ Start: 06-17-2023 Glucose [Mass/volume] in Serum or Plasma ARSLAN VASQUEZ Start: 06-17-2023 Magnesium [Mass/volume] in Serum or Plasma ARSLAN VASQUEZ Start: 06-17-2023 RENAL FUNCTION PANEL ARSLAN VASQUEZ Start: 06-17-2023 EXTRA TUBES Maxwell Gonzalez MD Work Phone: Start: 06-17-2023 LIGHT BLUE TOP Maxwell Gonzalez MD Work Phone: Start: 06-17-2023 Gases blood ph direct ras xcpt pulse oximitry Maxwell Gonzalez MD Work Phone: Start: 06-17-2023 Renal function panel Eliana Arias UNLEAVENED DOUGH MIXER-[employer] Work Phone: Start: 06-16-2023 Glucose [Mass/volume] in Serum or Plasma ARSLAN VASQUEZ Start: 06-16-2023 Glucose quantitative blood xcpt reagent strip Maxwell Gonzalez MD Work Phone: Start: 06-16-2023 BLOOD GAS ARTERIAL FULL PANEL ARSLAN BAGLEY Start: 06-16-2023 Glucose [Mass/volume] in Serum or Plasma ARSLAN VASQUEZ Start: 06-16-2023 End: 06-16-2023 Chloride bld Eliana Arias UNLEAVENED DOUGH 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 Work Phone: Start: 06-16-2023 Bacteria identified in Blood by Culture ARSLAN VASQUEZ Start: 06-16-2023 Glucose [Mass/volume] in Serum or Plasma ARSLAN VASQUEZ Start: 06-16-2023 Culture bacterial blood aerobic w/id isolates Dhruv Calvert PA-C Work Phone: Start: 06-16-2023 Glucose quantitative blood xcpt reagent strip Maxwell Gonzalez MD Work Phone: Start: 06-16-2023 Glucose [Mass/volume] in Serum or Plasma ARSLAN VASQUEZ Start: 06-16-2023 Glucose quantitative blood xcpt reagent strip Maxwell Gonzalez MD Work Phone: Start: 06-16-2023 Glucose [Mass/volume] in Serum or Plasma ARSLAN VASQUEZ Start: 06-16-2023 Glucose quantitative blood xcpt reagent strip Maxwell Gonzalez MD Work Phone: Start: 06-16-2023 BLOOD GAS ARTERIAL FULL PANEL ARSLAN BAGLEY Start: 06-16-2023 CALCIUM, IONIZED ARSLAN VASQUEZ Start: 06-16-2023 CBC panel - Blood by Automated count ARSLAN VASQUEZ Start: 06-16-2023 Magnesium [Mass/volume] in Serum or Plasma ARSLAN VASQUEZ Start: 06-16-2023 RENAL FUNCTION PANEL ARSLAN VASQUEZ Start: 06-16-2023 Tacrolimus [Mass/volume] in Blood ARSLAN VASQUEZ Start: 06-16-2023 Glucose [Mass/volume] in Serum or Plasma ARSLAN VASQUEZ Start: 06-16-2023 Drug screen quantitative tacrolimus Joie Jorgensen Work Phone: Start: 06-16-2023 End: 06-16-2023 Potassium serum plasma/whole blood Eliana Arias UNLEAVENED DOUGH 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 Work Phone: Start: 06-15-2023 Glucose quantitative blood xcpt reagent strip Maxwell Gonzalez MD Work Phone: Start: 06-15-2023 ECG 12-LEAD ARSLAN VASQEUZ Start: 06-15-2023 Glucose [Mass/volume] in Serum or Plasma ARSLAN VASQUEZ Start: 06-15-2023 Ecg routine ecg w/least 12 lds trcg only w/o i&r Ahdavid Arias UNLEAVENED DOUGH 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 Work Phone: Start: 06-15-2023 Glucose quantitative blood xcpt reagent strip Maxwell Gonzalez MD Work Phone: Start: 06-15-2023 CBC panel - Blood by Automated count ARSLAN VASQUEZ Start: 06-15-2023 Glucose [Mass/volume] in Serum or Plasma ARSLAN VASQUEZ Start: 06-15-2023 BLOOD GAS ARTERIAL FULL PANEL ARSLAN BAGLEY Start: 06-15-2023 Blood count complete automated Ahmad Matt person UNLEAVENED DOUGH 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 Work Phone: Start: 06-15-2023 End: 06-15-2023 Chloride bld Eliana Gutierrez Arias UNLEAVENED DOUGH 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 Work Phone: Start: 06-15-2023 VANCOMYCIN ARSLAN VASQUEZ Start: 06-15-2023 THROMBOELASTOGRAPH CLOTTING GLOBAL PROFILE ARSLAN VASQUEZ Start: 06-15-2023 Glucose [Mass/volume] in Serum or Plasma ARSLAN VASQUEZ Start: 06-15-2023 aPTT in Blood by Coagulation assay ALEKSANDR VASQUEZ Start: 06-15-2023 CALCIUM, IONIZED ARSLAN VASQUEZ Start: 06-15-2023 CBC panel - Blood by Automated count ARSLAN VASQUEZ Start: 06-15-2023 Magnesium [Mass/volume] in Serum or Plasma ARSLAN VASQUEZ Start: 06-15-2023 PROTIME-INR ARSLAN VASQUEZ Start: 06-15-2023 RENAL FUNCTION PANEL ARSLAN VASQUEZ Start: 06-15-2023 TROPONIN I, HIGH SENSITIVITY ARSLAN LEIGH Start: 06-15-2023 BLOOD GAS ARTERIAL FULL PANEL ARSLAN ALVES YUDI Start: 06-15-2023 Drug screen quantitative vancomycin Eliana Castilolmad UNLEAVENED DOUGH 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 Work Phone: Start: 06-15-2023 Fibrinogen activity Eliana Castillomad UNLEAVENED DOUGH 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 Work Phone: Start: 06-15-2023 BLOOD GAS ARTERIAL FULL PANEL UNSOLICITED ARSLAN VASQUEZ Start: 06-15-2023 PREPARE PLATELETS ARSLAN VASQUEZ Start: 06-15-2023 PREPARE PLASMA ARSLAN VASQUEZ Start: 06-15-2023 PREPARE RBC ARSLAN VASQUEZ Start: 06-15-2023 THROMBOELASTOGRAPH CLOTTING GLOBAL PROFILE UNSOLICITED ARSLAN VASQUEZ Start: 06-15-2023 TRANSFUSE RED BLOOD CELLS ARSLAN VASQUEZ Start: 06-15-2023 End: 06-15-2023 Chloride bld Eliana Castillomad UNLEAVENED DOUGH 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 Work Phone: Start: 06-15-2023 SURGICAL PATHOLOGY EXAM ARSLAN VASQUEZ Start: 06-15-2023 TRANSFUSE PLASMA ARSLAN VASQUEZ Start: 06-15-2023 BLOOD GAS ARTERIAL FULL PANEL UNSOLICITED ARSLAN VASQUEZ Start: 06-15-2023 BLOOD GAS ARTERIAL ARSLAN VASQUEZ Start: 06-15-2023 Chloride cortez Gonzalez MD Work Phone: Start: 06-15-2023 PREPARE PLATELETS Luis Migueler Juan Luis ENG Work Phone: Start: 06-15-2023 PREPARE PLASMA Stephentyeer L Leora ALBERTINA Work Phone: Start: 06-15-2023 PREPARE RBC Luis Migueler L Leora ALBERTINA Work Phone: Start: 06-15-2023 End: 06-15-2023 TRANSFUSE RED BLOOD CELLS Luis Miguelrodney Juan Luis Leora ENG Work Phone: Start: 06-15-2023 PREPARE PLASMA ARSLAN VASQUEZ Start: 06-15-2023 PREPARE RBC ARSLAN VASQUEZ Start: 06-15-2023 Chloride cortez Gonzalez MD Work Phone: Start: 06-15-2023 VANCOMYCIN ARSLAN VASQUEZ Start: 06-15-2023 Gases blood ph direct ras xcpt pulse oximitry Luis Miguelrodney ENG Work Phone: Start: 06-15-2023 End: 06-15-2023 TRANSFUSE PLASMA Luis Migueler L Leora ALBERTINA Work Phone: Start: 06-15-2023 End: 06-15-2023 Cholecystectomy Francisco Olson MD Work Phone: Start: 06-15-2023 PREPARE PLASMA Luis Migueler L Leora ALBERTINA Work Phone: Start: 06-15-2023 PREPARE RBC Luis Migueler L Leora ALBERTINA Work Phone: Start: 06-15-2023 Drug screen quantitative vancomycin Dodie Lau MD Work Phone: Start: 06-15-2023 Glucose [Mass/volume] in Serum or Plasma ARSLAN VASQUEZ Start: 06-15-2023 Glucose quantitative blood xcpt reagent strip Maxwell Gonzalez MD Work Phone: Start: 06-15-2023 BLOOD GAS ARTERIAL FULL PANEL ARSLAN BAGLEY Start: 06-15-2023 CALCIUM, IONIZED ARSLAN VASQUEZ Start: 06-15-2023 CBC panel - Blood by Automated count ARSLAN VASQUEZ Start: 06-15-2023 Magnesium [Mass/volume] in Serum or Plasma ARSLAN VASQUEZ Start: 06-15-2023 RENAL FUNCTION PANEL ARSLAN VASQUEZ Start: 06-15-2023 TROPONIN I, HIGH SENSITIVITY ARSLAN LEIGH Start: 06-15-2023 VANCOMYCIN ARSLAN VASQUEZ Start: 06-15-2023 Glucose [Mass/volume] in Serum or Plasma ARSLAN VASQUEZ Start: 06-15-2023 Drug screen quantitative vancomycin Walter Corey PharmD Work Phone: Start: 06-15-2023 End: 06-15-2023 Renal function panel Eliana Arias UNLEAVENED DOUGH 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 Work Phone: Start: 06-14-2023 Glucose [Mass/volume] in Serum or Plasma ARSLAN VASQUEZ Start: 06-14-2023 Glucose quantitative blood xcpt reagent strip Maxwell Gonzalez MD Work Phone: Start: 06-14-2023 TRANSTHORACIC ECHO (TTE) LIMITED ARSLAN VASQUEZ Start: 06-14-2023 BLOOD GAS ARTERIAL FULL PANEL ARSLAN ALVES RLES Start: 06-14-2023 Glucose [Mass/volume] in Serum or Plasma ARSLAN VASQUEZ Start: 06-14-2023 Echo transthorc r-t 2d w/wo m-mode rec f-up/lmtd Maxwell Gonzalez MD Work Phone: Start: 06-14-2023 End: 06-14-2023 Chloride bld Kori Dey MD Work Phone: Start: 06-14-2023 BLOOD GAS ARTERIAL FULL PANEL ARSLAN LOPEZES Start: 06-14-2023 CALCIUM, IONIZED ARSLAN VASQUEZ Start: 06-14-2023 CBC panel - Blood by Automated count ARSLAN VASQUEZ Start: 06-14-2023 Lactate [Moles/volume] in Serum or Plasma ARSLAN VASQUEZ Start: 06-14-2023 Magnesium [Mass/volume] in Serum or Plasma ARSLAN VASQUEZ Start: 06-14-2023 RENAL FUNCTION PANEL ARSLAN VASQUEZ Start: 06-14-2023 TROPONIN I, HIGH SENSITIVITY ARSLAN LEIGH Start: 06-14-2023 US RIGHT UPPER QUADRANT ARSLAN VASQUEZ Start: 06-14-2023 CASE REQUEST OPERATING ROOM ARSLAN EVANS Start: 06-14-2023 Glucose [Mass/volume] in Serum or Plasma ARSLAN VASQUEZ Start: 06-14-2023 XR CHEST 1 VIEW ARSLAN VASQUEZ Start: 06-14-2023 End: 06-14-2023 Chloride bld Ahmad A Arias UNLEAVENED DOUGH 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 Work Phone: Start: 06-14-2023 Us abdominal real time w/image limited Dodie Lau MD Work Phone: Start: 06-14-2023 IP CONSULT TO NEPHROLOGY TRANSPLANT ARSLAN VASQUEZ Start: 06-14-2023 ECG 12-LEAD ARSLAN VASQUEZ Start: 06-14-2023 PHARMACY TO DOSE VANCO ARSLAN VASQUEZ Start: 06-14-2023 Glucose quantitative blood xcpt reagent strip Maxwell Gonzalez MD Work Phone: Start: 06-14-2023 Radiologic exam chest single view Ahmad A Arias UNLEAVENED DOUGH 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 Work Phone: Start: 06-14-2023 ECG 12-LEAD ARSLAN VASQUEZ Start: 06-14-2023 Ecg routine ecg w/least 12 lds trcg only w/o i&r Ahmad A Arias UNLEAVENED DOUGH 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 Work Phone: Start: 06-14-2023 TRANSFER PATIENT TO NEW UNIT ARSLAN LEIGH Start: 06-14-2023 CBC W Auto Differential panel - Blood ARSLAN VASQUEZ Start: 06-14-2023 COAGULATION SCREEN ARSLAN VASQUEZ Start: 06-14-2023 Comprehensive metabolic 2000 panel - Serum or Plasma ARSLAN VASQUEZ Start: 06-14-2023 Hepatic function 2000 panel - Serum or Plasma ARSLAN VASQUEZ Start: 06-14-2023 Lactate [Moles/volume] in Serum or Plasma ARSLAN VASQUEZ Start: 06-14-2023 Magnesium [Mass/volume] in Serum or Plasma ARSLAN VASQUEZ Start: 06-14-2023 Manual Differential panel - Blood ARSLAN VASQUEZ Start: 06-14-2023 TROPONIN I, HIGH SENSITIVITY ARSLAN LEIGH Start: 06-14-2023 End: 06-14-2023 Ecg routine ecg w/least 12 lds trcg only w/o i&r Jill D Rhonda UNLEAVENED DOUGH 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 Work Phone: Start: 06-14-2023 End: 06-14-2023 Comprehensive metabolic panel Kang gerber MD Work Phone: Start: 06-14-2023 Glucose [Mass/volume] in Serum or Plasma ARSLAN VASQUEZ Start: 06-14-2023 ADMIT TO INPATIENT ARSLAN VASQUEZ Start: 06-14-2023 Glucose quantitative blood xcpt reagent strip Kang Galvan MD Work Phone: Start: 06-14-2023 Lactate [Moles/volume] in Serum or Plasma ARSLAN VASQUEZ Start: 06-14-2023 ED TO FLOOR BED REQUEST ARSLAN VASQUEZ Start: 06-14-2023 BLOOD GAS VENOUS FULL PANEL UNSOLICITED ARSLAN VASQUEZ Start: 06-14-2023 Assay of lactate Elder Siddiqui MD Work Phone: Start: 06-14-2023 Bacteria identified in Blood by Culture ARSLAN VASQUEZ Start: 06-14-2023 Basic metabolic 2000 panel - Serum or Plasma ARSLAN VASQUEZ Start: 06-14-2023 CBC panel - Blood by Automated count ARSLAN VASQUEZ Start: 06-14-2023 Lactate [Moles/volume] in Serum or Plasma ARSLAN VASQUEZ Start: 06-14-2023 Magnesium [Mass/volume] in Serum or Plasma ARSLAN VASQUEZ Start: 06-14-2023 TROPONIN I, HIGH SENSITIVITY ARSLAN HALLMAN SAURAV Start: 06-14-2023 PHARMACY TO DOSE VANCO ARSLAN VASQUEZ Start: 06-13-2023 Gases blood o2 saturation only direct ras Prabhjot Hardy MD MPH Work Phone: Start: 06-13-2023 Chloride bld Eron Cabrera MD Work Phone: Start: 06-13-2023 Culture bacterial blood aerobic w/id isolates Elder Siddiqui MD Work Phone: Start: 06-13-2023 Bacteria identified in Urine by Culture ARSLAN VASQUEZ Start: 06-13-2023 EXTRA URINE PEREZ TUBE ARSLAN VASQUEZ Start: 06-13-2023 MICROSCOPIC ONLY, URINE ARSLAN VASQUEZ Start: 06-13-2023 URINALYSIS WITH REFLEX CULTURE AND MICROSCOPIC ARSLAN VASQUEZ Start: 06-13-2023 Culture bacterial quanttative colony count urine Shiva Mcgill MD Work Phone: Start: 06-13-2023 EXTRA URINE PEREZ TUBE Shiva Mcgill MD Work Phone: Start: 06-13-2023 Urinalysis complete W Reflex Culture panel - Urine Shiva Mcgill MD Work Phone: Start: 06-13-2023 Urinalysis microscopic panel - Urine Qualitative by Automated Shiva Mcgill MD Work Phone: Start: 06-13-2023 ADMIT TO INPATIENT ARSLAN VASQUEZ Start: 06-13-2023 INSERT PERIPHERAL IV ARSLAN VASQUEZ Start: 06-13-2023 SALINE LOCK IV ARSLAN VASQUEZ Start: 06-13-2023 WEIGH PATIENT ARSLAN VASQUEZ Start: 06-13-2023 ED TO FLOOR BED REQUEST ARSLAN VASQUEZ Start: 06-13-2023 aPTT in Blood by Coagulation assay ALEKSANDR VASQUEZ Start: 06-13-2023 PROTIME-INR ARSLAN VASQUEZ Start: 06-13-2023 CBC W Auto Differential panel - Blood ARSLAN VASQUEZ Start: 06-13-2023 Comprehensive metabolic 2000 panel - Serum or Plasma ARSLAN VASQUEZ Start: 06-13-2023 Lactate [Moles/volume] in Serum or Plasma ARSLAN VASQUEZ Start: 06-13-2023 TYPE AND SCREEN ARSLAN VASQUEZ Start: 06-13-2023 Blood typing serologic rh (d) Shiva gutierrez MD Work Phone: Start: 06-13-2023 End: 06-13-2023 Comprehensive metabolic panel Shiva gutierrez MD Work Phone: Start: 06-09-2023 DISCHARGE PATIENT JANETTE VÁZQUEZBES Start: 06-09-2023 IR BILIARY CHOLANGIOGRAM JANETTE VÁZQUEZBES Start: 06-09-2023 Guidance for cholangioscopy of Gallbladder Janette Singh UNLEAVENED DOUGH 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 Work Phone: Start: 05-25-2023 ECG 12-LEAD ARSLAN VASQUEZ Start: 05-25-2023 XR CHEST 2 VIEWS ARSLAN VASQUEZ Start: 05-25-2023 EXTRA TUBES ARSLAN VASQUEZ Start: 05-25-2023 LAVENDER TOP ASRLAN VASQUEZ Start: 05-25-2023 Magnesium [Mass/volume] in Serum or Plasma ARSLAN VASQUEZ Start: 05-25-2023 Natriuretic peptide B [Mass/volume] in Blood ARSLAN VASQUEZ Start: 05-25-2023 PST TOP ARSLAN VASQUEZ Start: 05-25-2023 TROPONIN I, HIGH SENSITIVITY ARSLAN LEIGH Start: 05-25-2023 CBC W Auto Differential panel - Blood ARSLAN VASQUEZ Start: 05-25-2023 Comprehensive metabolic 2000 panel - Serum or Plasma ARSLAN VASQUEZ Start: 05-25-2023 Radiologic exam chest 2 views Shiva gutierrez MD Work Phone: Start: 05-25-2023 INSERT PERIPHERAL IV ARSLAN VASQUEZ Start: 05-25-2023 End: 05-25-2023 Comprehensive metabolic panel Vivian larkin MD Work Phone: Start: 05-25-2023 DISCHARGE PATIENT ARSLAN VASQUEZ Start: 05-25-2023 AMB REFERRAL TO GENERAL SURGERY JIMENEZ GERMAIN Start: 05-25-2023 FOLLOW UP IN TRAUMA SURGERY JIMENEZ JUNIOR Start: 05-25-2023 IR CVC REMOVAL ARSLAN VASQUEZ Start: 05-25-2023 Guidance for removal of CV catheter with port from Chest Jimenez Junior MD Work Phone: Start: 04-21-2023 Glucose [Mass/volume] in Serum or Plasma ARSLAN VASQUEZ Start: 04-21-2023 Glucose quantitative blood xcpt reagent strip Peter Stahl MD MPH Work Phone: Start: 04-21-2023 Glucose [Mass/volume] in Serum or Plasma ARSLAN VASQUEZ Start: 04-21-2023 DISCHARGE PATIENT ARSLAN VASQUEZ Start: 04-21-2023 Glucose quantitative blood xcpt reagent strip Peter Stahl MD MPH Work Phone: Start: 04-20-2023 Glucose [Mass/volume] in Serum or Plasma ARSLAN VASQUEZ Start: 04-20-2023 Glucose quantitative blood xcpt reagent strip Peter Stahl MD MPH Work Phone: Start: 04-20-2023 Glucose [Mass/volume] in Serum or Plasma ARSLAN VASQUEZ Start: 04-20-2023 Glucose quantitative blood xcpt reagent strip Peter Stahl MD MPH Work Phone: Start: 04-20-2023 GENERAL SUPPLY ARSLAN VASQUEZ Start: 04-20-2023 Glucose [Mass/volume] in Serum or Plasma ARSLAN VASQUEZ Start: 04-20-2023 WOUND OSTOMY NURSING CONSULT ARSLAN LEIGH Start: 04-20-2023 Glucose quantitative blood xcpt reagent strip Peter Stahl MD MPH Work Phone: Start: 04-20-2023 WOUND OSTOMY NURSING CONSULT Colleen Best MD Work Phone: Start: 04-20-2023 Glucose [Mass/volume] in Serum or Plasma ARSLAN VASQUEZ Start: 04-20-2023 Glucose quantitative blood xcpt reagent strip Peter Stahl MD MPH Work Phone: Start: 04-20-2023 CBC panel - Blood by Automated count ARSLAN VASQUEZ Start: 04-20-2023 RENAL FUNCTION PANEL ARSLAN VASQUEZ Start: 04-20-2023 Tacrolimus [Mass/volume] in Blood ARSLAN VASQUEZ Start: 04-20-2023 Drug screen quantitative tacrolimus Gena Gaona MD Work Phone: Start: 04-20-2023 Renal function panel Gena Gaona MD Work Phone: Start: 04-19-2023 Glucose [Mass/volume] in Serum or Plasma ARSLAN VASQUEZ Start: 04-19-2023 Glucose quantitative blood xcpt reagent strip Peter Stahl MD MPH Work Phone: Start: 04-19-2023 IR CVC TUNNELED ARSLAN VASQUEZ Start: 04-19-2023 Guidance for placement of tunneled catheter in Chest Pleura Manny Chavarria UNLEAVENED DOUGH 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 Work Phone: Start: 04-19-2023 CBC panel - Blood by Automated count ARSLAN VASQUEZ Start: 04-19-2023 COAGULATION SCREEN ARSLAN VASQUEZ Start: 04-19-2023 RENAL FUNCTION PANEL ARSLAN VASQUEZ Start: 04-19-2023 Tacrolimus [Mass/volume] in Blood ARSLAN VASQUEZ Start: 04-19-2023 Drug screen quantitative tacrolimus Gena Gaona MD Work Phone: Start: 04-19-2023 Renal function panel Gena Gaona MD Work Phone: Start: 04-18-2023 Glucose [Mass/volume] in Serum or Plasma ARSLAN VASQUEZ Start: 04-18-2023 Glucose quantitative blood xcpt reagent strip Peter Stahl MD MPH Work Phone: Start: 04-18-2023 Glucose [Mass/volume] in Serum or Plasma ARSLAN VASQUEZ Start: 04-18-2023 TYPE AND SCREEN ARSLAN VASQUEZ Start: 04-18-2023 Glucose [Mass/volume] in Serum or Plasma ARSLAN VASQUEZ Start: 04-18-2023 Glucose quantitative blood xcpt reagent strip Peter Stahl MD MPH Work Phone: Start: 04-18-2023 Blood typing serologic rh (d) Mohan mcknight MD Work Phone: Start: 04-18-2023 Glucose quantitative blood xcpt reagent strip Peter Stahl MD MPH Work Phone: Start: 04-18-2023 Glucose [Mass/volume] in Serum or Plasma ARSLAN VASQUEZ Start: 04-18-2023 Glucose quantitative blood xcpt reagent strip Peter Stahl MD MPH Work Phone: Start: 04-18-2023 CBC panel - Blood by Automated count ARSLAN VASQUEZ Start: 04-18-2023 PROTIME-INR ARSLAN VASQUEZ Start: 04-18-2023 RENAL FUNCTION PANEL ARSLAN VASQUEZ Start: 04-18-2023 Tacrolimus [Mass/volume] in Blood ARSLAN VASQUEZ Start: 04-18-2023 Drug screen quantitative tacrolimus Gena Gaona MD Work Phone: Start: 04-18-2023 Renal function panel Gena Gaona MD Work Phone: Start: 04-17-2023 Glucose [Mass/volume] in Serum or Plasma ARSLAN VASQUEZ Start: 04-17-2023 GENERAL SUPPLY ARSLAN VASQUEZ Start: 04-17-2023 Glucose quantitative blood xcpt reagent strip Peter Stahl MD MPH Work Phone: Start: 04-17-2023 Glucose [Mass/volume] in Serum or Plasma ARSLAN VASQUEZ Start: 04-17-2023 Glucose quantitative blood xcpt reagent strip Peter Stahl MD MPH Work Phone: Start: 04-17-2023 Glucose [Mass/volume] in Serum or Plasma ARSLAN VASQUEZ Start: 04-17-2023 Glucose quantitative blood xcpt reagent strip Peter Stahl MD MPH Work Phone: Start: 04-17-2023 CALCIUM, IONIZED ARSLAN VASQUEZ Start: 04-17-2023 CBC panel - Blood by Automated count ARSLAN VASQUEZ Start: 04-17-2023 COAGULATION SCREEN ARSLAN VASQUEZ Start: 04-17-2023 Magnesium [Mass/volume] in Serum or Plasma ARSLAN VASQUEZ Start: 04-17-2023 RENAL FUNCTION PANEL ARSLAN VASQUEZ Start: 04-17-2023 Tacrolimus [Mass/volume] in Blood ARSLAN VASQUEZ Start: 04-17-2023 Drug screen quantitative tacrolimus Jeremie Yepez MD Work Phone: Start: 04-17-2023 Renal function panel Jyotsna Mccoy MD Work Phone: Start: 04-16-2023 Glucose [Mass/volume] in Serum or Plasma ARSLAN VASQUEZ Start: 04-16-2023 Glucose quantitative blood xcpt reagent strip Peter Stahl MD MPH Work Phone: Start: 04-16-2023 RENAL FUNCTION PANEL ARSLAN VASQUEZ Start: 04-16-2023 Renal function panel Jyotsna Mccoy MD Work Phone: Start: 04-16-2023 DISCHARGE LINE CARE ARSLAN VASQUEZ Start: 04-16-2023 ADULT DISCHARGE DIET ARSLAN VASQUEZ Start: 04-16-2023 NOTIFY PROVIDER (DO NOT PROMPT FOR PARAMETERS) ARSLAN VASQUEZ Start: 04-16-2023 WOUND CARE ARSLAN VASQUEZ Start: 04-16-2023 Glucose [Mass/volume] in Serum or Plasma ARSLAN VASQUEZ Start: 04-16-2023 Glucose quantitative blood xcpt reagent strip Peter Stahl MD MPH Work Phone: Start: 04-16-2023 Glucose [Mass/volume] in Serum or Plasma ARSLAN VASQUEZ Start: 04-16-2023 Tacrolimus [Mass/volume] in Blood ARSLAN VASQUEZ Start: 04-16-2023 Glucose quantitative blood xcpt reagent strip Peter Stahl MD MPH Work Phone: Start: 04-16-2023 Drug screen quantitative tacrolimus Jeremie Yepez MD Work Phone: Start: 04-16-2023 Glucose [Mass/volume] in Serum or Plasma ARSLAN VASQUEZ Start: 04-16-2023 CALCIUM, IONIZED ARSLAN VASQUEZ Start: 04-16-2023 CBC panel - Blood by Automated count ARSLAN VASQUEZ Start: 04-16-2023 COAGULATION SCREEN ARSLAN VASQUEZ Start: 04-16-2023 Magnesium [Mass/volume] in Serum or Plasma ARSLAN VASQUEZ Start: 04-16-2023 RENAL FUNCTION PANEL ARSLAN VASQUEZ Start: 04-16-2023 End: 04-16-2023 Renal function panel Jyotsna Mccoy MD Work Phone: Start: 04-16-2023 Glucose [Mass/volume] in Serum or Plasma ARSLAN VASQUEZ Start: 04-15-2023 Glucose quantitative blood xcpt reagent strip Peter Stahl MD MPH Work Phone: Start: 04-15-2023 Glucose [Mass/volume] in Serum or Plasma ARSLAN VASQUEZ Start: 04-15-2023 Glucose quantitative blood xcpt reagent strip Peter Stahl MD MPH Work Phone: Start: 04-15-2023 Glucose [Mass/volume] in Serum or Plasma ARSLAN VASQUEZ Start: 04-15-2023 IR BILIARY ARSLAN VASQUEZ Start: 04-15-2023 Glucose quantitative blood xcpt reagent strip Peter Stahl MD MPH Work Phone: Start: 04-15-2023 VASC US LOWER EXTREMITY VENOUS DUPLEX BILATERAL ARSLAN VASQUEZ Start: 04-15-2023 Guidance for biopsy of Biliary ducts Etta Roth MD Work Phone: Start: 04-15-2023 Dup-scan xtr veins complete bilateral study Peter Stahl MD MPH Work Phone: Start: 04-15-2023 Glucose [Mass/volume] in Serum or Plasma ARSLAN VASQUEZ Start: 04-15-2023 Glucose quantitative blood xcpt reagent strip Peter Stahl MD MPH Work Phone: Start: 04-15-2023 Glucose [Mass/volume] in Serum or Plasma ARSLAN VASQUEZ Start: 04-15-2023 XR CHEST 1 VIEW ARSLAN VASQUEZ Start: 04-15-2023 Tacrolimus [Mass/volume] in Blood ARSLAN VASQUEZ Start: 04-15-2023 Glucose quantitative blood xcpt reagent strip Peter Stahl MD MPH Work Phone: Start: 04-15-2023 Radiologic exam chest single view Jyotsna Mccoy MD Work Phone: Start: 04-15-2023 Drug screen quantitative tacrolimus Jyotsna Mccoy MD Work Phone: Start: 04-15-2023 Glucose [Mass/volume] in Serum or Plasma ARSLAN VASQUEZ Start: 04-15-2023 Glucose quantitative blood xcpt reagent strip Peter Stahl MD MPH Work Phone: Start: 04-15-2023 CALCIUM, IONIZED ARSLAN VASQUEZ Start: 04-15-2023 CBC panel - Blood by Automated count ARSLAN VASQUEZ Start: 04-15-2023 COAGULATION SCREEN ARSLAN VASQUEZ Start: 04-15-2023 Magnesium [Mass/volume] in Serum or Plasma ARSLAN VASQUEZ Start: 04-15-2023 RENAL FUNCTION PANEL ARSLAN VASQUEZ Start: 04-15-2023 Glucose [Mass/volume] in Serum or Plasma ARSLAN VASQUEZ Start: 04-14-2023 End: 04-15-2023 Renal function panel Jyotsna Mccoy MD Work Phone: Start: 04-14-2023 Glucose [Mass/volume] in Serum or Plasma ARSLAN VASQUEZ Start: 04-14-2023 Glucose quantitative blood xcpt reagent strip Peter Stahl MD MPH Work Phone: Start: 04-14-2023 Glucose [Mass/volume] in Serum or Plasma ARSLAN VASQUEZ Start: 04-14-2023 TRANSFER PATIENT TO NEW UNIT ARSLAN LEIGH Start: 04-14-2023 Glucose quantitative blood xcpt reagent strip Peter Stahl MD MPH Work Phone: Start: 04-14-2023 Glucose [Mass/volume] in Serum or Plasma ARSLAN VASQUEZ Start: 04-14-2023 IP CONSULT TO ACUTE CARE SURGERY ARSLAN VASQUEZ Start: 04-14-2023 CBC panel - Blood by Automated count ARSLAN VASQUEZ Start: 04-14-2023 Magnesium [Mass/volume] in Serum or Plasma ARSLAN VASQUEZ Start: 04-14-2023 RENAL FUNCTION PANEL ARSLAN VASQUEZ Start: 04-14-2023 Glucose quantitative blood xcpt reagent strip Peter Stahl MD MPH Work Phone: Start: 04-14-2023 ECG 12-LEAD ARSLAN VASQUEZ Start: 04-14-2023 IP CONSULT TO NEPHROLOGY TRANSPLANT ARSLAN VASQUEZ Start: 04-14-2023 Chloride bld Jyotsna Mccoy MD Work Phone: Start: 04-14-2023 CBC panel - Blood by Automated count ARSLAN VASQUEZ Start: 04-14-2023 Glucose [Mass/volume] in Serum or Plasma ARSLAN VASQUEZ Start: 04-14-2023 Ecg routine ecg w/least 12 lds trcg only w/o i&r Jyotsna Mccoy MD Work Phone: Start: 04-14-2023 XR CHEST 1 VIEW ARSLAN VASQUEZ Start: 04-14-2023 TRANSFUSE RED BLOOD CELLS ARSLAN VASQUEZ Start: 04-14-2023 Blood count complete automated Jyotsna Mccoy MD Work Phone: Start: 04-14-2023 Radiologic exam chest single view Jyotsna Mccoy MD Work Phone: Start: 04-14-2023 BLOOD GAS VENOUS FULL PANEL ARSLAN EVANS Start: 04-14-2023 Glucose [Mass/volume] in Serum or Plasma ARSLAN VASQUEZ Start: 04-14-2023 End: 04-14-2023 TRANSFUSE RED BLOOD CELLS Jyotsna mcknight MD Work Phone: Start: 04-14-2023 CBC panel - Blood by Automated count ARSLAN VASQUEZ Start: 04-14-2023 Calcium ionized Jyotsna Mccoy MD Work Phone: Start: 04-14-2023 MICROSCOPIC ONLY, URINE ARSLAN VASQUEZ Start: 04-14-2023 URINALYSIS WITH REFLEX MICROSCOPIC ALEKSANDR VASQUEZ Start: 04-14-2023 TRANSFUSE RED BLOOD CELLS ARSLAN VASQUEZ Start: 04-14-2023 End: 04-14-2023 Blood count complete automated Jyotsna Mccoy MD Work Phone: Start: 04-14-2023 ECG 12-LEAD ARSLAN VASQUEZ Start: 04-14-2023 Urinalysis Jyotsna Mccoy MD Work Phone: Start: 04-14-2023 Urnls dip stick/tablet reagent auto microscopy Jyotsna Mccoy MD Work Phone: Start: 04-14-2023 FULL CODE ARSLAN VASQUEZ Start: 04-14-2023 MEASURE HEIGHT ARSLAN VASQUEZ Start: 04-14-2023 PULSE OXIMETRY, CONTINUOUS ARSLAN Candelario Start: 04-14-2023 WEIGH PATIENT ARSLAN VASQUEZ Start: 04-14-2023 Glucose [Mass/volume] in Serum or Plasma ARSLAN VASQUEZ Start: 04-14-2023 PREPARE RBC ARSLAN VASQUEZ Start: 04-14-2023 IP CONSULT TO INFECTIOUS DISEASES ARSLAN VASQUEZ Start: 04-14-2023 End: 04-14-2023 TRANSFUSE RED BLOOD CELLS Elissa Myers MD Work Phone: Start: 04-14-2023 Basic metabolic 2000 panel - Serum or Plasma ARSLAN VASQUEZ Start: 04-14-2023 CALCIUM, IONIZED ARSLAN VASQUEZ Start: 04-14-2023 CBC panel - Blood by Automated count ARSLAN VASQUEZ Start: 04-14-2023 COAGULATION SCREEN ARSLAN VASQUEZ Start: 04-14-2023 Creatine kinase [Enzymatic activity/volume] in Serum or Plasma ARSLAN VASQUEZ Start: 04-14-2023 FIBRINOGEN ARSLAN VASQUEZ Start: 04-14-2023 Hepatic function 2000 panel - Serum or Plasma ARSLAN VASQUEZ Start: 04-14-2023 Magnesium [Mass/volume] in Serum or Plasma ARSLAN VASQUEZ Start: 04-14-2023 Phosphate [Mass/volume] in Serum or Plasma ARSLAN VASQUEZ Start: 04-14-2023 Ecg routine ecg w/least 12 lds trcg only w/o i&r Elissa Myers MD Work Phone: Start: 04-13-2023 PULSE OXIMETRY, CONTINUOUS Jyotsna nixon MD Work Phone: Start: 04-13-2023 Glucose quantitative blood xcpt reagent strip Peter Stahl MD MPH Work Phone: Start: 04-13-2023 PREPARE RBC Elissa Myers MD Work Phone: Start: 04-13-2023 Bacteria identified in Urine by Culture ARSLAN VASQUEZ Start: 04-13-2023 MICROSCOPIC ONLY, URINE ARSLAN VAS[facility] Start: 04-13-2023 Glucose [Mass/volume] in Serum or Plasma [facility] Start: 04-13-2023 Chloride bld Elissa Myers MD Work Phone: Start: 04-13-2023 IP CONSULT TO MEDICINE [facility] Start: 04-13-2023 Culture bacterial quanttative colony count urine Barney Gonzalez MD Work Phone: Start: 04-13-2023 Urinalysis microscopic panel - Urine Qualitative by Automated Barney Gonzalez MD Work Phone: Start: 04-13-2023 Glucose quantitative blood xcpt reagent strip Peter Stahl MD MPH Work Phone: Start: 04-13-2023 SURGICAL PATHOLOGY EXAM [facility] Start: 04-13-2023 TYPE AND SCREEN [facility] Start: 04-13-2023 FUNGAL CULTURE/SMEAR [facility] Start: 04-13-2023 TISSUE/WOUND CULTURE/SMEAR [facility] [employer] Start: 04-13-2023 PREPARE RBC [facility] Start: 04-13-2023 BLOOD GAS MIXED VENOUS FULL PANEL UNSOLICITED [facility] Start: 04-13-2023 EXTRA URINE PREEZ TUBE [facility] Start: 04-13-2023 URINALYSIS WITH REFLEX CULTURE AND MICROSCOPIC [facility] Start: 04-13-2023 XR CHEST 1 VIEW [facility] Start: 04-13-2023 Blood typing serologic rh (d) Jacob White MD Work Phone: Start: 04-13-2023 End: 04-13-2023 Culture fngi mold/yeast prsmptv oth xcpt blood Nathen Juan Luis RamonCrimora DO Work Phone: Start: 04-13-2023 End: 04-13-2023 PREPARE RBC Jacob Forrester MD Work Phone: Start: 04-13-2023 ADMIT TO INPATIENT [facility] Start: 04-13-2023 Calcium ionized Peter Stahl MD MPH Work Phone: Start: 04-13-2023 End: 04-13-2023 Incision & drainage abscess complicated/multiple Peter Stahl MD MPH Work Phone: Start: 04-13-2023 EXTRA URINE PEREZ TUBE Barney Gonzalez MD Work Phone: Start: 04-13-2023 Urinalysis complete W Reflex Culture panel - Urine Barney Gonzalez MD Work Phone: Start: 04-13-2023 ED TO FLOOR BED REQUEST ARSLAN VASQUEZ Start: 04-13-2023 Radiologic exam chest single view Deangelo Perez MD Work Phone: Start: 04-13-2023 Comprehensive metabolic 2000 panel - Serum or Plasma ARSLAN VASQUEZ Start: 04-13-2023 TYPE AND SCREEN ARSLAN VASQUEZ Start: 04-13-2023 CASE REQUEST OPERATING ROOM ARSLAN ZAMBRANO ES Start: 04-13-2023 IP CONSULT TO UROLOGY ARSLAN VASQUEZ Start: 04-13-2023 Comprehensive metabolic panel Preston alvarez MD Work Phone: Start: 04-13-2023 ED CENTRAL LINE ARSLAN VASQUEZ Start: 04-13-2023 Insj non-tunneled central venous cath age 6 yr/> Arlene Bates MD Work Phone: Start: 03-14-2023 History of renal transplant Wade SMITH Start: 03-06-2023 POCT GLUCOSE METER ARSLAN VASQUEZ Start: 03-05-2023 DISCHARGE PATIENT ARSLAN VASQUEZ Start: 03-05-2023 CBC W Auto Differential panel - Blood ARSLAN VASQUEZ Start: 03-05-2023 Magnesium [Mass/volume] in Serum or Plasma ARSLAN VASQUEZ Start: 03-05-2023 RENAL FUNCTION PANEL ARSLAN VASQUEZ Start: 03-05-2023 Glucose [Mass/volume] in Serum or Plasma ARSLAN VASQUEZ Start: 03-05-2023 End: 03-05-2023 Renal function panel Se Rivas MD Work Phone: Start: 03-05-2023 POCT GLUCOSE METER ARSLAN VASQUEZ Start: 03-04-2023 Glucose [Mass/volume] in Serum or Plasma ARSLAN VASQUEZ Start: 03-04-2023 CBC panel - Blood by Automated count ARSLAN VASQUEZ Start: 03-04-2023 Heparin assay ARSLAN VASQUEZ Start: 03-04-2023 Magnesium [Mass/volume] in Serum or Plasma ARSLAN VASQUEZ Start: 03-04-2023 RENAL FUNCTION PANEL ARSLAN VASQUEZ Start: 03-04-2023 End: 03-04-2023 Renal function panel Paddy Marcano MD Work Phone: Start: 03-04-2023 POCT GLUCOSE METER ARSLAN VASQUEZ Start: 03-04-2023 Heparin assay ARSLAN VASQUEZ Start: 03-03-2023 Heparin assay Se Rivas MD Work Phone: Start: 03-03-2023 IP CONSULT TO ELECTROPHYSIOLOGY ARSLAN Sabino LEIVA Start: 03-03-2023 CBC W Auto Differential panel - Blood ARSLAN VASQUEZ Start: 03-03-2023 Magnesium [Mass/volume] in Serum or Plasma ARSLAN VASQUEZ Start: 03-03-2023 RENAL FUNCTION PANEL ARSLAN VASQUEZ Start: 03-03-2023 Renal function panel Se Rivas MD Work Phone: Start: 03-03-2023 POCT GLUCOSE METER ARSLAN VASQUEZ Start: 03-02-2023 ADULT DISCHARGE DIET ARSLAN VASQUEZ Start: 03-02-2023 DISCHARGE ACTIVITY ARSLAN VASQUEZ Start: 03-02-2023 DISCHARGE INSTRUCTIONS ARSLAN VASQUEZ Start: 03-02-2023 FOLLOW UP WITH PROVIDER ARSLAN VASQUEZ Start: 03-02-2023 NOTIFY PROVIDER (DO NOT PROMPT FOR PARAMETERS) ARSLAN VASQUEZ Start: 03-02-2023 WOUND CARE ARSLAN VASQUEZ Start: 03-02-2023 DANGLE AT BEDSIDE ARSLAN VASQUEZ Start: 03-02-2023 TELEMETRY MONITORING ARSLAN VASQUEZ Start: 03-02-2023 CARDIAC CATHETERIZATION - CORONARY ALEKSANDR VASQUEZ Start: 03-02-2023 CBC W Auto Differential panel - Blood ARSLAN VASQUEZ Start: 03-02-2023 Cardiac catheterization study Vivian larkin MD Work Phone: Start: 03-02-2023 TRANSFUSE RED BLOOD CELLS ARSLAN VASQUEZ Start: 03-02-2023 Blood count complete auto&auto difrntl wbc Ludy Chandler MD Work Phone: Start: 03-02-2023 Glucose [Mass/volume] in Serum or Plasma ARSLAN VASQUEZ Start: 03-02-2023 CBC W Auto Differential panel - Blood ARSLAN VASQUEZ Start: 03-02-2023 Magnesium [Mass/volume] in Serum or Plasma ARSLAN VASQUEZ Start: 03-02-2023 RENAL FUNCTION PANEL ARSLAN VASQUEZ Start: 03-02-2023 Glucose quantitative blood xcpt reagent strip Pedro Romero MD Work Phone: Start: 03-02-2023 End: 03-02-2023 TRANSFUSE RED BLOOD CELLS Se quinones MD Work Phone: Start: 03-02-2023 PREPARE RBC ARSLAN VASQUEZ Start: 03-02-2023 VERIFY INFORMED CONSENT ARSLAN VASQUEZ Start: 03-02-2023 Renal function panel Se Rivas MD Work Phone: Start: 03-02-2023 TRANSFUSE RED BLOOD CELLS ARSLAN VASQUEZ Start: 03-02-2023 PREPARE RBC Se Rivas MD Work Phone: Start: 03-02-2023 End: 03-02-2023 TRANSFUSE RED BLOOD CELLS Nevaeh horton DO Work Phone: Start: 03-02-2023 CBC panel - Blood by Automated count ARSLAN VASQUEZ Start: 03-02-2023 TYPE AND SCREEN ARSLAN VASQUEZ Start: 03-01-2023 Blood count complete automated Nevaeh will DO Work Phone: Start: 03-01-2023 Blood typing serologic rh (d) Nevaeh brice DO Work Phone: Start: 03-01-2023 PREPARE RBC ARSLAN VASQUEZ Start: 03-01-2023 PREPARE RBC Nevaeh Talamantes DO Work Phone: Start: 03-01-2023 CBC W Auto Differential panel - Blood ARSLAN VASQUEZ Start: 03-01-2023 Magnesium [Mass/volume] in Serum or Plasma ARSLAN VASQUEZ Start: 03-01-2023 RENAL FUNCTION PANEL ARSLAN VASQUEZ Start: 03-01-2023 Tacrolimus [Mass/volume] in Blood ARSLAN VASQUEZ Start: 03-01-2023 Drug screen quantitative tacrolimus Se Rivas MD Work Phone: Start: 03-01-2023 Renal function panel Se Rivas MD Work Phone: Start: 03-01-2023 POCT GLUCOSE METER ARSLAN VASQUEZ Start: 02-28-2023 TRANSFER PATIENT TO NEW UNIT ARSLAN LEIGH Start: 02-28-2023 Glucose [Mass/volume] in Serum or Plasma ARSLAN VASQUEZ Start: 02-28-2023 Glucose [Mass/volume] in Serum or Plasma ARSLAN VASQUEZ Start: 02-28-2023 Glucose quantitative blood xcpt reagent strip Cathie Calvert MD Work Phone: Start: 02-28-2023 Glucose [Mass/volume] in Serum or Plasma ARSLAN VASQUEZ Start: 02-28-2023 Glucose quantitative blood xcpt reagent strip Vivian Espino MD Work Phone: Start: 02-28-2023 Glucose quantitative blood xcpt reagent strip Vivian Espino MD Work Phone: Start: 02-28-2023 Glucose [Mass/volume] in Serum or Plasma ARSLAN VASQUEZ Start: 02-28-2023 Glucose quantitative blood xcpt reagent strip Vivian Espino MD Work Phone: Start: 02-28-2023 CALCIUM, IONIZED ARSLAN VASQUEZ Start: 02-28-2023 CBC panel - Blood by Automated count ARSLAN VASQUEZ Start: 02-28-2023 Magnesium [Mass/volume] in Serum or Plasma ARSLAN VASQUEZ Start: 02-28-2023 RENAL FUNCTION PANEL ARSLAN VASQUEZ Start: 02-28-2023 POCT GLUCOSE METER ARSLAN VASQUEZ Start: 02-28-2023 Renal function panel Lashell Davis UNLEAVENED DOUGH 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 Work Phone: Start: 02-27-2023 Glucose [Mass/volume] in Serum or Plasma ARSLAN VASQUEZ Start: 02-27-2023 Glucose quantitative blood xcpt reagent strip Vivian Espino MD Work Phone: Start: 02-27-2023 Heparin assay ARSLAN VASQUEZ Start: 02-27-2023 Glucose [Mass/volume] in Serum or Plasma ARSLAN VASQUEZ Start: 02-27-2023 End: 02-27-2023 Heparin assay Rosaline Rivas MD Work Phone: Start: 02-27-2023 Glucose [Mass/volume] in Serum or Plasma ARSLAN VASQUEZ Start: 02-27-2023 POCT GLUCOSE METER ARSLAN VASQUEZ Start: 02-27-2023 WOUND OSTOMY NURSING CONSULT ARSLAN LEIGH Start: 02-27-2023 Glucose quantitative blood xcpt reagent strip Vivian Espino MD Work Phone: Start: 02-27-2023 Heparin assay Rosaline Rivas MD Work Phone: Start: 02-27-2023 WOUND OSTOMY NURSING CONSULT Rosaline gonzáles MD Work Phone: Start: 02-27-2023 Glucose [Mass/volume] in Serum or Plasma ARSLAN VASQUEZ Start: 02-27-2023 Glucose quantitative blood xcpt reagent strip Vivian Espino MD Work Phone: Start: 02-27-2023 Glucose [Mass/volume] in Serum or Plasma ARSLAN VASQUEZ Start: 02-27-2023 Heparin assay Rosalnie Rivas MD Work Phone: Start: 02-27-2023 Glucose quantitative blood xcpt reagent strip Vivian Espino MD Work Phone: Start: 02-27-2023 CALCIUM, IONIZED ARSLAN VASQUEZ Start: 02-27-2023 CBC panel - Blood by Automated count ARSLAN VASQUEZ Start: 02-27-2023 FIBRINOGEN ARSLAN VASQUEZ Start: 02-27-2023 Heparin assay ARSLAN VASQUEZ Start: 02-27-2023 Magnesium [Mass/volume] in Serum or Plasma ARSLAN VASQUEZ Start: 02-27-2023 PROTIME-INR ARSLAN VASQUEZ Start: 02-27-2023 RENAL FUNCTION PANEL ARSLAN VASQUEZ Start: 02-27-2023 Tacrolimus [Mass/volume] in Blood ARSLAN VASQUEZ Start: 02-27-2023 THROMBOELASTOGRAPH CLOTTING GLOBAL PROFILE ARSLAN VASQUEZ Start: 02-27-2023 TYPE AND SCREEN ARSLAN VASQUEZ Start: 02-27-2023 Glucose [Mass/volume] in Serum or Plasma ARSLAN VASQUEZ Start: 02-27-2023 Blood typing serologic abo Von Pompa MD Work Phone: Start: 02-27-2023 End: 02-27-2023 Renal function panel Lashell Davis UNLEAVENED DOUGH 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 Work Phone: Start: 02-26-2023 Glucose [Mass/volume] in Serum or Plasma ARSLAN VASQUEZ Start: 02-26-2023 Glucose quantitative blood xcpt reagent strip Vivian Espino MD Work Phone: Start: 02-26-2023 IP CONSULT TO UROLOGY ARSLAN VASQUEZ Start: 02-26-2023 INSERT URETHRAL CATHETER ARSLAN VASQUEZ Start: 02-26-2023 Glucose [Mass/volume] in Serum or Plasma ARSLAN VASQUEZ Start: 02-26-2023 aPTT in Blood by Coagulation assay ALEKSANDR VASQUEZ Start: 02-26-2023 CBC panel - Blood by Automated count ARSLAN VASQUEZ Start: 02-26-2023 FIBRINOGEN ARSLAN VASQUEZ Start: 02-26-2023 PROTIME-INR ARSLAN VASQUEZ Start: 02-26-2023 THROMBOELASTOGRAPH CLOTTING GLOBAL PROFILE ARSLAN VASQUEZ Start: 02-26-2023 Glucose quantitative blood xcpt reagent strip Vivian Espino MD Work Phone: Start: 02-26-2023 Blood count complete automated Rosaline quinones MD Work Phone: Start: 02-26-2023 Glucose [Mass/volume] in Serum or Plasma ARSLAN VASQUEZ Start: 02-26-2023 TYPE AND SCREEN ARSLAN VASQUEZ Start: 02-26-2023 Glucose quantitative blood xcpt reagent strip Vivian Espino MD Work Phone: Start: 02-26-2023 Blood typing serologic rh (d) Rosaline salazar MD Work Phone: Start: 02-26-2023 Glucose [Mass/volume] in Serum or Plasma ARSLAN VASQUEZ Start: 02-26-2023 Tacrolimus [Mass/volume] in Blood ARSLAN VASQUEZ Start: 02-26-2023 Glucose quantitative blood xcpt reagent strip Vivian Espino MD Work Phone: Start: 02-26-2023 Drug screen quantitative tacrolimus Rosaline Rivas MD Work Phone: Start: 02-26-2023 Glucose [Mass/volume] in Serum or Plasma ARSLAN VASQUEZ Start: 02-26-2023 CALCIUM, IONIZED ARSLAN VASQUEZ Start: 02-26-2023 CBC panel - Blood by Automated count ARSLAN VASQUEZ Start: 02-26-2023 Magnesium [Mass/volume] in Serum or Plasma ARSLAN VASQUEZ Start: 02-26-2023 RENAL FUNCTION PANEL ARSLAN VASQUEZ Start: 02-26-2023 VANCOMYCIN ARSLAN VASQUEZ Start: 02-26-2023 BLOOD GAS VENOUS FULL PANEL ARSLAN JUAN MANUEL EVANS Start: 02-26-2023 End: 02-26-2023 Chloride bld Lashell A Loranger UNLEAVENED DOUGH 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 Work Phone: Start: 02-26-2023 Drug screen quantitative vancomycin Rosaline Rivas MD Work Phone: Start: 02-26-2023 Glucose [Mass/volume] in Serum or Plasma ARSLAN VASQUEZ Start: 02-26-2023 ARTERIAL PUNCTURE/CANNULATION ARSLAN ALVES YUDI Start: 02-25-2023 Glucose quantitative blood xcpt reagent strip Vivian Espino MD Work Phone: Start: 02-25-2023 Glucose [Mass/volume] in Serum or Plasma ARSLAN VASQUEZ Start: 02-25-2023 ARTERIAL PUNCTURE/CANNULATION Donnie renee MD Work Phone: Start: 02-25-2023 Glucose [Mass/volume] in Serum or Plasma ARSLAN VASQUEZ Start: 02-25-2023 XR CHEST 1 VIEW ARSLAN VASQUEZ Start: 02-25-2023 Glucose quantitative blood xcpt reagent strip Vivian Espino MD Work Phone: Start: 02-25-2023 CENTRAL LINE ARSLAN VASQUEZ Start: 02-25-2023 Glucose quantitative blood xcpt reagent strip Vivian Espino MD Work Phone: Start: 02-25-2023 Radiologic exam chest single view Donnie Griffin MD Work Phone: Start: 02-25-2023 CASE REQUEST LIFE MANAGER ARSLAN VASQUEZ Start: 02-25-2023 Insj non-tunneled central venous cath age 6 yr/> Von Pompa MD Work Phone: Start: 02-25-2023 Glucose [Mass/volume] in Serum or Plasma ARSLAN VASQUEZ Start: 02-25-2023 Glucose quantitative blood xcpt reagent strip Vivian Espino MD Work Phone: Start: 02-25-2023 Glucose [Mass/volume] in Serum or Plasma ARSLAN VASQUEZ Start: 02-25-2023 WOUND OSTOMY NURSING CONSULT ARSLAN HALLMAN SAURAV Start: 02-25-2023 TRANSTHORACIC ECHO (TTE) LIMITED ARSLAN VASQUEZ Start: 02-25-2023 Glucose quantitative blood xcpt reagent strip Vivian Espino MD Work Phone: Start: 02-25-2023 WOUND OSTOMY NURSING CONSULT Rosaline gnozáles MD Work Phone: Start: 02-25-2023 Echo transthorc r-t 2d w/wo m-mode rec f-up/lmtd Vivian Espino MD Work Phone: Start: 02-25-2023 Glucose [Mass/volume] in Serum or Plasma ARSLAN VASQUEZ Start: 02-25-2023 CALCIUM, IONIZED ARSLAN VASQUEZ Start: 02-25-2023 CBC panel - Blood by Automated count ARSLAN VASQUEZ Start: 02-25-2023 FIBRINOGEN ARSLAN VASQUEZ Start: 02-25-2023 Hepatic function 2000 panel - Serum or Plasma ARSLAN VASQUEZ Start: 02-25-2023 Magnesium [Mass/volume] in Serum or Plasma ARSLAN VASQUEZ Start: 02-25-2023 RENAL FUNCTION PANEL ARSLAN VASQUEZ Start: 02-25-2023 Tacrolimus [Mass/volume] in Blood ARSLAN VASQUEZ Start: 02-25-2023 TROPONIN I, HIGH SENSITIVITY ARSLAN LEIGH Start: 02-25-2023 Glucose [Mass/volume] in Serum or Plasma ARSLAN VASQUEZ Start: 02-25-2023 US GUIDED PERCUTANEOUS CHOLECYSTOSTOMY ARSLAN VASQUEZ Start: 02-25-2023 STERILE FLUID CULTURE/SMEAR ARSLAN EVANS Start: 02-25-2023 ED TO FLOOR BED REQUEST ARSLAN VASQUEZ Start: 02-25-2023 End: 02-25-2023 Chloride bld Rosaline Rivas MD Work Phone: Start: 02-25-2023 Drug screen quantitative tacrolimus Evan Preston MD Work Phone: Start: 02-25-2023 Basic metabolic 2000 panel - Serum or Plasma ARSLAN VASQUEZ Start: 02-25-2023 ELEVATE HOB ARSLAN VASQUEZ Start: 02-25-2023 FULL CODE ARSLAN VASQUEZ Start: 02-25-2023 HEIGHT AND WEIGHT ARSLAN VASQUEZ Start: 02-25-2023 ADMIT TO INPATIENT ARSLAN VASQUEZ Start: 02-25-2023 Cholecystostomy prq w/imaging & catheter plmt Rosa Maria Fitzgerald MD Work Phone: Start: 02-25-2023 Cul bact xcpt urine blood/stool aerobic isol Onelia Martínez MD Work Phone: Start: 02-25-2023 BLOOD GAS VENOUS FULL PANEL ARSLAN EVANS Start: 02-25-2023 PROTIME-INR ARSLAN VASQUEZ Start: 02-25-2023 IP CONSULT TO NEPHROLOGY TRANSPLANT ARSLAN VASQUEZ Start: 02-25-2023 IP CONSULT TO CARDIOLOGY ARSLAN VASQUEZ Start: 02-25-2023 PHARMACY TO DOSE VANCO ARSLAN VASQUEZ Start: 02-25-2023 ED TO FLOOR BED REQUEST ARSLAN VASQUEZ Start: 02-25-2023 End: 02-25-2023 Renal function panel Jethro Roper PA-C Work Phone: Start: 02-25-2023 CT CHEST W IV CONTRAST ARSLAN VASQUEZ Start: 02-25-2023 CT ABDOMEN PELVIS W IV CONTRAST ARSLAN Gallo CALI Start: 02-25-2023 Bacteria identified in Urine by Culture ARSLAN VASQUEZ Start: 02-25-2023 EXTRA URINE PEREZ TUBE ARSLAN VASQUEZ Start: 02-25-2023 MICROSCOPIC ONLY, URINE ARSLAN VASQUEZ Start: 02-25-2023 URINALYSIS WITH REFLEX CULTURE AND MICROSCOPIC ARSLAN VASQUEZ Start: 02-25-2023 Ct thorax w/contrast material Aster S R hyne DO Work Phone: Start: 02-25-2023 Ct abdomen & pelvis w/contrast material Evan Preston MD Work Phone: Start: 02-25-2023 Culture bacterial quanttative colony count urine Heri Africawala DO Work Phone: Start: 02-25-2023 EXTRA URINE PEREZ TUBE Heri Africawala DO Work Phone: Start: 02-25-2023 Urinalysis complete W Reflex Culture panel - Urine Heri Africawala DO Work Phone: Start: 02-25-2023 Urinalysis microscopic panel - Urine Qualitative by Automated Heri Africawala DO Work Phone: Start: 02-25-2023 Bacteria identified in Blood by Culture ARSLAN VASQUEZ Start: 02-25-2023 Lactate [Moles/volume] in Serum or Plasma ARSLAN VASQUEZ Start: 02-25-2023 TROPONIN I, HIGH SENSITIVITY ARSLNA HALLMAN SAURAV Start: 02-25-2023 ECG 12-LEAD ARSLAN VASQUEZ Start: 02-25-2023 VITAL SIGNS ARSLAN VASQUEZ Start: 02-25-2023 XR CHEST 1 VIEW ARSLAN VASQUEZ Start: 02-24-2023 ECG 12-LEAD ARSLAN VASQUEZ Start: 02-24-2023 Basic metabolic 2000 panel - Serum or Plasma ARSLAN VASQUEZ Start: 02-24-2023 CBC W Auto Differential panel - Blood ARSLAN VASQUEZ Start: 02-24-2023 Hepatic function 2000 panel - Serum or Plasma ARSLAN VASQUEZ Start: 02-24-2023 Lactate [Moles/volume] in Serum or Plasma ARSLAN VASQUEZ Start: 02-24-2023 Lipase [Enzymatic activity/volume] in Serum or Plasma ARSLAN VASQUEZ Start: 02-24-2023 Magnesium [Mass/volume] in Serum or Plasma ARSLAN VASQUEZ Start: 02-24-2023 Natriuretic peptide B [Mass/volume] in Blood ARSLAN VASQUEZ Start: 02-24-2023 Phosphate [Mass/volume] in Serum or Plasma ARSLAN VASQUEZ Start: 02-24-2023 SARS-COV-2 AND INFLUENZA A/B PCR ARSLAN VASQUEZ Start: 02-24-2023 TROPONIN I, HIGH SENSITIVITY ARSLAN HALLMAN SAURAV Start: 02-24-2023 IP CONSULT TO ACUTE CARE SURGERY ARSLAN VASQUEZ Start: 02-24-2023 Assay of lactate Heri Sandovala DO Work Phone: Start: 02-24-2023 Culture bacterial blood aerobic w/id isolates Heri Africawala DO Work Phone: Start: 02-24-2023 Ecg routine ecg w/least 12 lds trcg only w/o i&r Aster S Keli DO Work Phone: Start: 02-24-2023 Radiologic exam chest single view Heri Africawala DO Work Phone: Start: 02-24-2023 Ecg routine ecg w/least 12 lds trcg only w/o i&r Heri Africawala DO Work Phone: Start: 02-24-2023 Comprehensive metabolic panel [facility] Afr icawala DO Work Phone: Start: 02-24-2023 Influenza virus A and B and SARS-CoV-2 (COVID-19) identified in Respiratory specimen by YOMAIRA with probe detection Heri Africawala DO Work Phone: Start: 02-24-2023 History of renal transplant Gena Luna is Start: 01-31-2023 History of renal transplant Kari WALLIS Start: 01-21-2023 DISCHARGE PATIENT ARSLAN VASQUEZ Start: 01-20-2023 ADULT DISCHARGE DIET ARSLAN VASQUEZ Start: 01-20-2023 DISCHARGE ACTIVITY ARSLAN VASQUEZ Start: 01-20-2023 NOTIFY PROVIDER (DO NOT PROMPT FOR PARAMETERS) ARSLAN VASQUEZ Start: 01-20-2023 STOMA CARE ARSLAN VASQUEZ Start: 01-20-2023 WEIGHT LIFTING RESTRICTIONS ARSLAN EVANS Start: 01-20-2023 WOUND CARE ARSLAN VASQUEZ Start: 01-20-2023 CBC panel - Blood by Automated count ARSLAN VASQUEZ Start: 01-20-2023 Magnesium [Mass/volume] in Serum or Plasma ARSLAN VASQUEZ Start: 01-20-2023 RENAL FUNCTION PANEL ARSLAN VASQUEZ Start: 01-20-2023 Tacrolimus [Mass/volume] in Blood ARSLAN VASQUEZ Start: 01-20-2023 Drug screen quantitative tacrolimus Mery Jones MD Work Phone: Start: 01-20-2023 Renal function panel Mery Jones MD Work Phone: Start: 01-19-2023 BOWERS CATHETER - DISCONTINUE ARSLAN LEIGH Start: 01-19-2023 WOUND OSTOMY NURSING CONSULT ARSLAN LEIGH Start: 01-19-2023 WOUND OSTOMY NURSING CONSULT Felipa esquivel UNLEAVENED DOUGH 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 Work Phone: Start: 01-19-2023 CBC panel - Blood by Automated count ARSLAN VASQUEZ Start: 01-19-2023 Magnesium [Mass/volume] in Serum or Plasma ARSLAN VASQUEZ Start: 01-19-2023 RENAL FUNCTION PANEL ARSLAN VASQUEZ Start: 01-19-2023 Tacrolimus [Mass/volume] in Blood ARSLAN VASQUEZ Start: 01-19-2023 Drug screen quantitative tacrolimus Mery Jones MD Work Phone: Start: 01-19-2023 Renal function panel Mery Jones MD Work Phone: Start: 01-18-2023 CBC panel - Blood by Automated count ARSLAN VASQUEZ Start: 01-18-2023 Magnesium [Mass/volume] in Serum or Plasma ARSLAN VASQUEZ Start: 01-18-2023 RENAL FUNCTION PANEL ARSLAN VASQUEZ Start: 01-18-2023 Tacrolimus [Mass/volume] in Blood ARSLAN VASQUEZ Start: 01-18-2023 Drug screen quantitative tacrolimus Mery Jones MD Work Phone: Start: 01-18-2023 Renal function panel Mery Jones MD Work Phone: Start: 01-17-2023 CBC panel - Blood by Automated count ARSLAN VASQUEZ Start: 01-17-2023 CBC W Auto Differential panel - Blood ARSLAN VASQUEZ Start: 01-17-2023 Magnesium [Mass/volume] in Serum or Plasma ARSLAN VASQUEZ Start: 01-17-2023 RENAL FUNCTION PANEL ARSLAN VASQUEZ Start: 01-17-2023 Tacrolimus [Mass/volume] in Blood ARSLAN VASQUEZ Start: 01-17-2023 Drug screen quantitative tacrolimus Mery Jones MD Work Phone: Start: 01-17-2023 Renal function panel Mery Jones MD Work Phone: Start: 01-17-2023 US KIDNEY TRANSPLANT ARSLAN VASQUEZ Start: 01-16-2023 Us trnsplnt kidney real time w/image docmtn Lizzette Bustillos MD Work Phone: Start: 01-16-2023 CBC panel - Blood by Automated count ARSLAN VASQUEZ Start: 01-16-2023 Magnesium [Mass/volume] in Serum or Plasma ARSLAN VASQUEZ Start: 01-16-2023 RENAL FUNCTION PANEL ARSLAN VASQUEZ Start: 01-16-2023 Tacrolimus [Mass/volume] in Blood ARSLAN VASQUEZ Start: 01-16-2023 Drug screen quantitative tacrolimus Mery Jones MD Work Phone: Start: 01-16-2023 Renal function panel Mery Jones MD Work Phone: Start: 01-16-2023 US BLADDER ARSLAN VASQUEZ Start: 01-16-2023 Us pelvic nonobstetric image dcmtn limited/f/u Mery Jones MD Work Phone: Start: 01-16-2023 IP CONSULT TO UROLOGY ARSLAN PEDRO Start: 01-15-2023 TRANSFER PATIENT TO [facility] ARSLAN LEIGH Start: 01-15-2023 History of renal transplant Kidney transplant status Arslan Vasquez MD Work Phone: Start: 01-15-2023 PULSE OXIMETRY, CONTINUOUS ARSLAN Candelario Start: 01-15-2023 PULSE OXIMETRY, CONTINUOUS Emeka Leslie MD Work Phone: Start: 01-15-2023 SURGICAL PATHOLOGY EXAM ARSLAN PEDRO Start: 01-15-2023 Basic metabolic 2000 panel - Serum or Plasma ARSLAN VASQUEZ Start: 01-15-2023 CBC panel - Blood by Automated count ARSLAN VASQUEZ Start: 01-15-2023 Magnesium [Mass/volume] in Serum or Plasma ARSLAN VASQUEZ Start: 01-15-2023 Phosphate [Mass/volume] in Serum or Plasma ARSLAN VASQUEZ Start: 01-15-2023 Tacrolimus [Mass/volume] in Blood ARSLAN VASQUEZ Start: 01-15-2023 WOUND OSTOMY NURSING CONSULT ARSLAN LEIGH Start: 01-15-2023 End: 01-15-2023 Laps colectomy abdl w/proctectomy w/ileostomy Arslan Vasquez MD Work Phone: Start: 01-15-2023 Basic metabolic panel calcium total Marc Alba MD Work Phone: Start: 01-15-2023 Drug screen quantitative tacrolimus Marc Alba MD Work Phone: Start: 01-15-2023 WOUND OSTOMY NURSING CONSULT Marc Rowe i, MD Work Phone: Start: 01-14-2023 CASE REQUEST OPERATING ROOM ARSLAN EVANS Start: 01-14-2023 XR CHEST 2 VIEWS ARSLAN VASQUEZ Start: 01-14-2023 COAGULATION SCREEN ARSLAN VASQUEZ Start: 01-14-2023 TYPE AND SCREEN ARSLAN PEDRO Start: 01-14-2023 Radiologic exam chest 2 views Mery real MD Work Phone: Start: 01-14-2023 IP CONSULT TO IV TEAM ARSLAN VASQUEZ Start: 01-14-2023 Blood typing serologic rh (d) Mery real MD Work Phone: Start: 01-14-2023 Prothrombin time Mery Jones MD Work Phone: Start: 01-14-2023 Basic metabolic 2000 panel - Serum or Plasma ARSLAN VASQUEZ Start: 01-14-2023 CBC panel - Blood by Automated count ARSLAN VASQUEZ Start: 01-14-2023 Magnesium [Mass/volume] in Serum or Plasma ARSLAN VASQUEZ Start: 01-14-2023 Phosphate [Mass/volume] in Serum or Plasma ARSLAN VASQUEZ Start: 01-14-2023 Tacrolimus [Mass/volume] in Blood ARSLAN VASQUEZ Start: 01-14-2023 Basic metabolic panel calcium total Marc Alba MD Work Phone: Start: 01-14-2023 Drug screen quantitative tacrolimus Marc Alba MD Work Phone: Start: 01-13-2023 Colostomy Colostomy Radhaanuelsanjeevdank Lee Start: 01-13-2023 Glucose [Mass/volume] in Serum or Plasma ARSLAN VASQUEZ Start: 01-13-2023 Glucose [Mass/volume] in Serum or Plasma ARSLAN VASQUEZ Start: 01-13-2023 Glucose quantitative blood xcpt reagent strip Arslan Vasquez MD Work Phone: Start: 01-13-2023 Glucose quantitative blood xcpt reagent strip Arslan Vasquez MD Work Phone: Start: 01-13-2023 Glucose [Mass/volume] in Serum or Plasma ARSLAN VASQUEZ Start: 01-13-2023 CBC panel - Blood by Automated count ARSLAN VASQUEZ Start: 01-13-2023 Tacrolimus [Mass/volume] in Blood ARSLAN VASQUEZ Start: 01-13-2023 PT EVAL AND TREAT ARSLAN VASQUEZ Start: 01-13-2023 Glucose [Mass/volume] in Serum or Plasma ARSLAN VASQUEZ Start: 01-13-2023 End: 01-13-2023 Blood count complete automated Marc montaño MD Work Phone: Start: 01-13-2023 Drug screen quantitative tacrolimus Marc Alba MD Work Phone: Start: 01-13-2023 Glucose [Mass/volume] in Serum or Plasma ARSLAN PEDRO Start: 01-13-2023 RENAL FUNCTION PANEL ARSLAN VASQUEZ Start: 01-13-2023 Glucose quantitative blood xcpt reagent strip Arslan Vasquez MD Work Phone: Start: 01-13-2023 End: 01-13-2023 Renal function panel Sukhdev Eisenberg Work Phone: Start: 01-13-2023 Magnesium [Mass/volume] in Serum or Plasma ARSLAN VASQUEZ Start: 01-13-2023 RENAL FUNCTION PANEL ARSLAN VASQUEZ Start: 01-12-2023 Glucose [Mass/volume] in Serum or Plasma ARSLAN VASQUEZ Start: 01-12-2023 Renal function panel Mery Jones MD Work Phone: Start: 01-12-2023 Glucose [Mass/volume] in Serum or Plasma [facility] PEDRO Start: 01-12-2023 Glucose quantitative blood xcpt reagent strip Arslan Vasquez MD Work Phone: Start: 01-12-2023 Glucose [Mass/volume] in Serum or Plasma ARSL[facility] PEDRO Start: 01-12-2023 Glucose quantitative blood xcpt reagent strip Arslan Vasquez MD Work Phone: Start: 01-12-2023 Glucose [Mass/volume] in Serum or Plasma ARSLAN PEDRO Start: 01-12-2023 Glucose quantitative blood xcpt reagent strip Arslan Vasquez MD Work Phone: Start: 01-12-2023 Glucose [Mass/volume] in Serum or Plasma ARSL[facility] PEDRO Start: 01-12-2023 End: 01-12-2023 Glucose quantitative blood xcpt reagent strip Arslan Vasquez MD Work Phone: Start: 01-12-2023 CBC panel - Blood by Automated count [facility]RSL[facility] PEDRO Start: 01-12-2023 Glucose quantitative blood xcpt reagent strip Arslan Vasquez MD Work Phone: Start: 01-12-2023 Blood count complete automated Mery Jones MD Work Phone: Start: 01-12-2023 Magnesium [Mass/volume] in Serum or Plasma ARSLAN PEDRO Start: 01-12-2023 RENAL FUNCTION PANEL ARSLANGUADALUPE VASQUEZ Start: 01-12-2023 Renal function panel Mery Jones MD Work Phone: Start: 01-12-2023 Tacrolimus [Mass/volume] in Blood ARSLAN VASQUEZ Start: 01-12-2023 Drug screen quantitative tacrolimus Marc Alba MD Work Phone: Start: 01-11-2023 Glucose [Mass/volume] in Serum or Plasma ARSLAN VASQUEZ Start: 01-11-2023 POCT GLUCOSE METER ARSLAN VASQUEZ Start: 01-11-2023 Glucose quantitative blood xcpt reagent strip Arslan Vasquez MD Work Phone: Start: 01-11-2023 CT GUIDED IMAGING FOR ABSCESS DRAIN ARSLANGUADALUPE VASQUEZ Start: 01-11-2023 STERILE FLUID CULTURE/SMEAR ARSLAN EVANS Start: 01-11-2023 Img-guide fluid collxn drainag cath periton perq Bruce Howard MD Work Phone: Start: 01-11-2023 Cul bact xcpt urine blood/stool aerobic isol Pa Blackwell MD Work Phone: Start: 01-11-2023 Basic metabolic 2000 panel - Serum or Plasma ARSLAN PEDRO Start: 01-11-2023 CBC panel - Blood by Automated count ARSLAN VASQUEZ Start: 01-11-2023 Magnesium [Mass/volume] in Serum or Plasma ARSLAN VASQUEZ Start: 01-11-2023 Tacrolimus [Mass/volume] in Blood ARSLANGUADALUPE VASQUEZ Start: 01-11-2023 Basic metabolic panel calcium total Marc Alba MD Work Phone: Start: 01-11-2023 Drug screen quantitative tacrolimus Marc Alba MD Work Phone: Start: 01-10-2023 Glucose [Mass/volume] in Serum or Plasma ARSLAN VASQUEZ Start: 01-10-2023 Glucose quantitative blood xcpt reagent strip Arslan Vasquez MD Work Phone: Start: 01-10-2023 CBC panel - Blood by Automated count ARSLAN VASQUEZ Start: 01-10-2023 COAGULATION SCREEN ARSLAN VASQUEZ Start: 01-10-2023 Comprehensive metabolic 2000 panel - Serum or Plasma ARSLAN VASQUEZ Start: 10-29-2023 TYPE AND SCREEN ARSLAN VASQUEZ Start: 01-10-2023 IP CONSULT TO NEPHROLOGY ARSLAN VASQUEZ Start: 01-10-2023 Blood typing serologic rh (d) Bruce Howard MD Work Phone: Start: 01-10-2023 Comprehensive metabolic panel Bruce Howard MD Work Phone: Start: 01-10-2023 ADMIT TO INPATIENT ARSLAN VASQUEZ Start: 01-10-2023 MEASURE HEIGHT ARSLAN VASQUEZ Start: 01-10-2023 NURSING COMMUNICATION ARSLAN VASQUEZ Start: 01-10-2023 WEIGH PATIENT ARSLAN VASQUEZ Start: 01-09-2023 Basic metabolic panel calcium total Sarthak Rosen MD Work Phone: Start: 01-09-2023 Basic metabolic panel calcium total Maxwell Rivero Work Phone: Start: 01-09-2023 Ct abdomen & pelvis w/contrast material Madhavi Rivas MD Work Phone: Start: 01-09-2023 Urnls dip stick/tablet rgnt auto w/o microscopy Glenn Ram MD Work Phone: Start: 01-09-2023 Blood typing serologic abo Glenn Ram MD Work Phone: Start: 01-09-2023 Blood typing, ABO, Rho(D) and RBC antibody screening Glenn Ram MD Work Phone: Start: 01-09-2023 Thromboplastin time partial plasma/whole blood Glenn Ram MD Work Phone: Start: 01-09-2023 CT of abdomen and pelvis without contrast II Aishwarya Lundy Work Phone: Start: 08-05-2022 Echocardiography Hernandez Hankins MD Work Phone: Start: 06-26-2022 Esophagogastroduodenoscopy II Aishwarya aguilar Work Phone: Start: 06-26-2022 Flexible fiberoptic sigmoidoscopy II Jordon Lundy Work Phone: Start: 06-25-2022 Antibody screen Matthew Marin Comment on above: Order Comment: Transfuse now? Y Number o f units to transfuse now? 1 Transfuse now? Y Number of units to transfuse now? 1 Transfuse now? Y Number of units to transfuse now? 2 Result Comment: PERF ORMED BY: [facility] [place] [address] PATHOLOGIST AIR BRAKE MAN SAMANTHA ROTH M.D. Start: 06-25-2022 Colonoscopy Maritza Ruggiero NP Work Phone: Start: 06-17-2022 Transfusion of Nonautologous Red Blood Cells into Peripheral Vein, Percutaneous Approach DR DOCTOR CHAMORRO Start: 12-18-[address] DO[address] CHAMORRO Comment on above: Performed By: #### PSAD #### [facility] [address] [address] [address] Derek Feldman Start: 01-23-2021 Echocardiography Hernandez Hankins MD Work Phone: Start: 04-12-2018 Colonoscopic polypectomy Hernandez Hankins MD Work Phone: Start: 11-22-2012 History of renal transplant Kidney replaced by transplant Maritza Ruggiero NP Work Phone: Start: 08-04-2012 Transplant of kidney Kari WALLIS Start: 08-01-2009 Cystoscopy Nevillea KADI Arteriovenous anastomosis Chris Hankins MD Work Phone: Biopsy of skin Alaa ALAANGELIKA Cervical arthrodesis Alaa JESUS AVERY Colonoscopy Hernandez Hankins MD Work Phone: Comment on above: 15Mar2018; Colonoscopy Alaa ALAANTOINEAD Cystoscopic insertio n of ureteric stent Alaa ALAANTOINEAD Comment on above: 11/2006 Cystoscopic removal of ureteric stent Alaa ALAANTOINEAD Comment on above: 03/2007 Fistula of artery (disorder) Alaa ALAANTOINEAD History of renal transplant Tressa l transplant recipient Hernandez Hankins MD Work Phone: History of renal transplant Aziz Bakhous Other History of renal transplant Aziz Bakhous Other History of renal transplant Tressa l transplant recipient II Aishwarya Lundy Work Phone: History of renal transplant Stat us post kidney transplant II Aishwarya Lundy Work Phone: History of renal transplant Hist ory of kidney transplant Maxwell Rivero DO Work Phone: History of renal transplant Kidn ey transplant status Arslan Vasquez MD Work Phone: History of renal transplant Kidn ey transplant recipient Alamatt WALLIS History of renal transplant Kidn ey transplant recipient Jessica Pang MD Work Phone: History of renal transplant Kidn ey transplant status Mouth and face operations Chris Hankins MD Work Phone: Procedure on neck Hernandez Nieves MD Work Phone: Comment on above: c4-c5; Total nephrectomy Kari GARZON Comment on above: 09/2009 Transplant of kidney Hernandez Hankins MD Work Phone: Vasectomy Hernandez Hankins MD Work Phone: Vasectomy Kari WALLIS Plan of Treatment Date Care Activity Detail Author Start: 06-25-2032 Screening for malignant neoplasm of colon [facility] Start: 06-27-2027 Screening for malignant neoplasm of colon [facility] Start: 12-18-2026 Lipid panel Cholesterol [facility] Start: 03-05-2026 Diabetes mellitus screening [facility] Start: 10-13-2024 Screening for malignant neoplasm of colon Cologuard (Stool DNA) [facility] Start: 10-07-2024 Screening for malignant neoplasm of colon [facility] Start: 06-20-2024 Diabetes mellitus screening [facility] Start: 06-19-2024 Creatinine measurement [facility] Start: 06-19-2024 Potassium measurement [facility] Start: 06-13-2024 [facility] Start: 05-24-2024 Creatinine measurement Creatinine Level [facility] Start: 05-24-2024 Potassium measurement Potassium Level [facility] Start: 04-21-2024 Diabetes mellitus screening [facility] Start: 03-05-2024 Diabetes mellitus screening Diabetes Screening [facility] Start: 02-26-2024 Echocardiography Echocardiogram [facility] Start: 11-14-2023 Influenza vaccination [facility] Start: 09-08-2023 End: 09-08-2023 ambulatory [facility] Start: 09-08-2023 End: 09-08-2023 Patient encounter procedure 09/08/2023 2:20 PM EDT Office Visit [facility] [address] [place] [address] Hernandez Hankins MD [address] [facility] [address] [place] [address] [facility] Start: 07-16-2023 FUV, Provider: Hernandez Hankins, Status: Pen, Time: 2:10 PM FUV, Provider: Hernandez Hankins, Status: Pen, Time: 2:10 PM [facility] [address] DO Work Phone: Start: 07-16-2023 End: 07-16-2023 ambulatory [facility] Start: 07-16-2023 End: 07-16-2023 Patient encounter procedure 07/16/2023 1:10 PM EDT Office Visit [facility] [address] [facility] [address] [place] [address] Hernandez Hankins MD [address] [facility] [address] [place] [address] [facility] Start: 06-25-2023 Screening for malignant neoplasm of colon FOBT [facility] Start: 06-09-2023 Subsequent hospital visit by physician 06/09/2023 12:15 PM EDT Hospital Encounter [facility] [address] [place] [id number] Cholecystitis [facility] Comment on above: Cholecystitis Start: 06-09-2023 End: 06-09-2023 Patient encounter procedure 06/09/2023 11:30 AM EDT Office Visit [facility] [address] [facility] [address] [place] [id number] [place] [address] [address] [place] [address] [facility] Start: 05-05-2023 End: 05-05-2023 Patient encounter procedure 05/05/2023 3:20 PM EST Procedure Visit [facility] [address] [place] [address] Von Gerard MD [address] [place] [address] [facility] Start: 04-29-2023 End: 04-29-2023 Patient encounter procedure 04/29/2023 1:00 PM EST Office Visit [facility] [address] [place] [address] Maritza Ruggiero, ACADEMIC ADVISEMENT DIRECTOR [address] [place] [address] [facility] Start: 04-28-2023 End: 04-28-2023 ambulatory [facility] Start: 04-27-2023 End: 04-27-2023 [facility] Start: 04-16-2023 End: 04-16-2023 Clinical Support 04/16/2023 11:00 AM EST Clinical Support [facility] [address] [facility] [address] [place] [address] [facility] Start: 04-01-2023 End: 03-01-2024 Guidance for cholangioscopy of Gallbladder [facility] Service Area Work Phone: Start: 02-12-2023 End: 02-12-2023 Patient encounter procedure 02/12/2023 11:30 AM EST Office Visit [facility] [address] [place] [address] Alona Harrison, UNLEAVENED DOUGH 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 [address] [address] Department of Surgery-Colorectal [place] [id number] [facility] Start: 01-09-2023 Bacteria identified in Blood by Culture [facility] Start: 11-13-2022 Influenza vaccination [facility] Start: 09-25-2022 FUV, Provider: Hernandez Hankins, Status: Pen, Time: 2:20 PM FUV, Provider: Hernandez Hankins, Status: Pen, Time: 2:20 PM [facility]-Tqgil harry 250 DO Work Phone: Start: 08-25-2022 ambulatory Ambulatory Facility: Start: 08-05-2022 ECHO, Provider: RODO BARNESI ULTRASOUND 01,[id number], Status: Pen, Time: 2:30 PM ECHO, Provider: RODO HHVI ULTRASOUND 01,[id number], Status: Pen, Time: 2:30 PM RB-Wtgqawjgsl-Plapg harry 250 DO Work Phone: Start: 06-29-2022 [facility] Start: 06-26-2022 Referral to vascular surgeon [facility] Start: 06-26-2022 [facility] Start: 06-25-2022 Hospital admission [facility] Start: 06-25-2022 Referral to electrician telephone [facility] Start: 06-25-2022 Referral to contact lens polisher [facility] Start: 10-14-2021 Screening for malignant neoplasm of colon CRC Screening [facility] Start: 07-11-2021 FUV, Provider: Hernandez Hankins, Status: Pen, Time: 1:00 PM FUV, Provider: Hernandez Hankins, Status: Pen, Time: 1:00 PM [facility] [address] DO Work Phone: Start: 04-18-2021 FUV, Provider: Hernandez Hankins, Status: Pen, Time: 1:00 PM FUV, Provider: Hernandez Hankins, Status: Pen, Time: 1:00 PM [facility] [address] DO Work Phone: Start: 01-23-2021 ECHO, Provider: RODO STEVENS ULTRASOUND ,[id number], Status: Pen, Time: 1:30 PM ECHO, Provider: RODO STEVENS ULTRASOUND ,[id number], Status: Pen, Time: 1:30 PM [facility] [address] DO Work Phone: Start: 2016 RSV vaccine (optional 60+ years) RSV vaccine (optional 60+ years) [facility] Start: 03-15-2013 Pneumococcal Vaccine: 65+ Years (3 - PCV) Pneumococcal Vaccine: 65+ Years (3 - PCV) [facility] Start: 03-15-2013 [facility] Start: 2001 Screening for malignant neoplasm of colon FIT [facility] Start: 1978 DTaP/Tdap/Td Vaccines (1 - Tdap) DTaP/Tdap/Td Vaccines (1 - Tdap) [facility] Start: 1978 [facility] Start: 12-16-1975 Shingles (RZV) Vaccine (1 of 2) Shingles (RZV) Vaccine (1 of 2) [facility] Start: 12-16-1975 Zoster Vaccines (1 of 2) Zoster Vaccines (1 of 2) [facility] Start: 12-16-1975 [facility] Start: 1974 Hepatitis C screening [facility] Start: 1974 Tetanus + diphtheria + acellular pertussis vaccine (product) Tdap Booster [facility] Start: 1962 Pneumococcal vaccination Pneumococcal Vaccine(s) (65+ yrs) (1 - PCV) [facility] Start: 1961 COVID-19 Vaccine (#1) COVID-19 Vaccine (#1) [facility] Start: 1961 [facility] Start: 1956 Lipid panel [facility] Start: 1956 Medicare Annual Wellness Visit [facility] Start: 1956 Screening for malignant neoplasm of colon [facility] End: 04-19-2024 Basic metabolic 2000 panel - Serum or Plasma [facility] Work Phone: Blood chemistry [facility] End: 04-13-2023 Blood type and Indirect antibody screen panel - Blood [facility] Work Phone: End: 07-18-2023 CBC W Auto Differential panel - Blood [facility] Work Phone: End: 02-28-2023 Central Line Removal [facility] Work Phone: End: 03-02-2023 CTA Heart and Coronary arteries WO and W contrast IV [facility] Work Phone: End: 01-09-2023 DOWNLOAD [employer] [facility] [employer] DOWNLOAD [employer] [facility] STAT Today for 1 Occurrences starting 01/09/2023 until 01/09/2023 [facility] Work Phone: Comment on above: Today for 1 Occurrences starting 023 until 01/09/2023 End: 01-09-2023 Drug screen quantitative mycophenolate [facility] Comment on above: One time for 1 Occurrences starting 12/14 until 01/09/2023 End: 01-09-2023 Drug screen quantitative tacrolimus [facility] Work Phone: Comment on above: One time for 1 Occurrences starting 12/14 until 01/09/2023 End: 05-25-2023 ECG 12 lead [facility] Work Phone: Comment on above: Once for 1 Occurrences starting 05/25/19 until 05/25/2023 Electrocardiogram, 1 2-lead PRN ACS symptoms Electrocardiogram, 12-lead PRN ACS symptoms ECG Routine As needed until discontinued starting 01/10/2023 [facility] Work Phone: Comment on above: As needed until discontinued starting Electrocardiogram, 1 2-lead PRN ACS symptoms [facility] Work Phone: Electrocardiogram, 1 2-lead PRN ACS symptoms [facility] Work Phone: Electrocardiogram, 1 2-lead PRN ACS symptoms [facility] Work Phone: Electrocardiogram, 1 2-lead PRN ACS symptoms [facility] Work Phone: Fibrinogen [Mass/vol ume] in Platelet poor plasma by Coagulation assay [facility] Work Phone: Glucose [Mass/volume ] in Serum or Plasma [facility] Work Phone: Glucose [Mass/volume ] in Serum or Plasma [facility] Work Phone: End: 04-16-2023 Glucose [Mass/volume] in Serum or Plasma [facility] Work Phone: Glucose [Mass/volume ] in Serum or Plasma [facility] Work Phone: Glucose [Mass/volume ] in Serum or Plasma [facility] Work Phone: End: 02-25-2023 Incentive spirometry Instruct [facility] Work Phone: End: 06-14-2023 Incentive spirometry Instruct [facility] Work Phone: Patient Education Low Fiber Diet Esophagitis [facility] Work Phone: Patient referral [facility] Work Phone: End: 04-14-2023 Prepare RBC: 1 Units, Leukocytes Reduced (CMV reduced risk) [facility] Work Phone: Renal function 2000 panel - Serum or Plasma [facility] Surgical pathology study [facility] Work Phone: Comment on above: Release Upon Ordering for 1 Occurrences starting 01/15/2023, 1 completed Surgical pathology study [facility] Work Phone: Surgical pathology study [facility] Work Phone: Tacrolimus [Mass/vol ume] in Blood [facility] Work Phone: Tacrolimus [Mass/vol ume] in Blood [facility] TEG Clot Global Profile [facility] Work Phone: Transfuse RBC [facility] Work Phone: Transfuse RBC: [facility] Work [facility]: End: 03-01-2023 Urethral Catheter Removal [facility] Work Phone: End: 04-16-2023 Urethral Catheter Removal [facility] Service A arnel Work Phone: End: 06-23-2023 Vancomycin [Mass/volume] in Serum or Plasma --trough [facility] Work Phone: [facility] Immunizations Immunization Date Immunization Notes Care Provider Fa sukhdev 06-20-2015 influenza, seasonal, injectable Hernandez Hankins MD Work Phone: [facility] [address] DO Work Phone: 06-20-2015 influenza virus vaccine, unspecified formulation Arslan Vasquez MD Work Phone: [facility] Work Phone: 03-15-2012 pneumococcal polysaccharide vaccine, 23 valent Hernandez Hankins MD Work Phone: [facility] Work Phone: 11-04-2009 hepatitis B vaccine, adult dosage Hernandez Hankins MD Work Phone: [facility] Work Phone: 10-03-2009 pneumococcal polysaccharide vaccine, 23 valent Hernandez Hankins MD Work Phone: [facility] Work Phone: 07-05-2009 hepatitis B vaccine, adult dosage Hernandez Hankins MD Work Phone: [facility] Work Phone: 06-04-2009 hepatitis B vaccine, adult dosage Hernandez Hankins MD Work Phone: [facility] Work Phone: 05-07-2009 hepatitis B vaccine, adult dosage Hernandez Hankins MD Work Phone: [facility] NEGATED: Highlighted row has not occurred!06-20-2015 pneumococcal polysaccharide vaccine, 23 valent [employer] Other [employer] Other Payers Date Payer Category Payer Medicare [id number] 2022 Medicare [id number] 2022 Self-pay [id number] 2022 Unknown [id number] 1998 Medicare [id number] 1959 Medicaid [id number] 1959 Medicare [id number] 2.1 [id number] 1956 Unknown [id number] 2.16.84 0.1.819585.3.579.2.593 1956 Unknown [id number] 2.16.84 0.1.238734.3.579.2.593 1956 Unknown [id number] 2.16.84 0.1.386925.3.579.2.593 1956 Unknown [id number] 2.16.84 0.1.342036.3.579.2.593 1956 Unknown [id number] 2.16.84 0.1.478924.3.579.2.593 1956 Unknown [id number] 2.16.84 0.1.343329.3.579.2.593 1956 Unknown [id number] 2.16.84 0.1.591002.3.579.2.593 1956 Unknown [id number] 2.16.84 0.1.174590.3.579.2.593 1956 Unknown [id number] 2.16.84 0.1.427783.3.579.2.593 1956 Unknown [id number] 2.16.84 0.1.458783.3.579.2.593 1956 Unknown [id number] 2.16.8 40.1.665060.3.579.2.1068 1956 Unknown [id number] 2.16.8 40.1.237256.3.579.2.1243 1956 Unknown [id number] 2.16. 840.1.336433.3.579.2.356 1956 Unknown [id number] 2.16.84 0.1.204053.3.579.2.1259 1956 Unknown [id number] 2.16.8 40.1.849258.3.579.2.1244 1956 Unknown [id number] 2.16.8 40.1.480313.3.579.2.1244 1956 Unknown [id number] 2.16.8 40.1.261405.3.579.2.1244 1956 Unknown [id number] 2.16.8 40.1.187218.3.579.2.1244 1956 Unknown [id number] 2.16.8 40.1.738877.3.579.2.1244 1956 Unknown [id number] 2.16.8 40.1.038946.3.579.2.1244 1956 Unknown [id number] 2.16. 840.1.510609.3.579.2.732 1956 Unknown [id number] 2.16. 840.1.405554.3.579.2.732 1956 Unknown [id number] 2.16. 840.1.853296.3.579.2.732 1956 Unknown [id number] 2.16. 840.1.947823.3.579.2.732 1956 Unknown [id number] 2.16. 840.1.244235.3.579.2.732 1956 Unknown [id number] 2.16.8 40.1.640568.3.579.2.727 1956 Unknown [id number] 2.16.8 40.1.491683.3.579.2.727 1956 Unknown [id number] 2.16.8 40.1.244344.3.579.2.727 1956 Unknown [id number] 2.16.8 40.1.128876.3.579.2.727 1956 Unknown [id number] 2.16.8 40.1.769992.3.579.2.727 1956 Unknown [id number] 2.16.8 40.1.089340.3.579.2.727 1956 Unknown [id number] 2.16.8 40.1.015985.3.579.2.727 1956 Unknown [id number] 2.16.8 40.1.737280.3.579.2.727 1956 Unknown [id number] 2.16.8 40.1.628750.3.579.2.727 1956 Unknown [id number] 2.16.8 40.1.607679.3.579.2.727 1956 Unknown [id number] 2.16.8 40.1.575461.3.579.2.1245 1956 Unknown [id number] 2.16.8 40.1.203850.3.579.2.1245 1956 Unknown [id number] 2.16.8 40.1.297577.3.579.2.1245 1956 Unknown [id number] 2.16.8 40.1.890189.3.579.2.1245 1956 Unknown [id number] 2.16.8 40.1.472649.3.579.2.1245 1956 Unknown [id number] 2.16.8 40.1.908428.3.579.2.1245 1956 Unknown [id number] 2.16.8 40.1.037434.3.579.2.1245 1956 Unknown [id number] 2.16.8 40.1.077177.3.579.2.1245 1956 Unknown [id number] 2.16.8 40.1.181076.3.579.2.1245 Unknown Unknown HCAP/HFA/FAP Active [id number] Unknown [id number] 2.16.8 40.1.363869.3.579.2.531 Unknown [id number] 2.16.8 40.1.312085.3.579.2.531 Social History Date Type Detail Facility Start: 01-10-2023 End: 06-16-2023 Occasional caffeine consumption Occasional caffeine consumption [facility] 250 DO Work Phone: Comment on above: Chocolate; Start: 01-10-2023 End: 06-16-2023 Sex Assigned At [facility] Other Start: 06-26-2022 End: 07-13-2023 Tobacco smoking status NHIS Never smoked tobacco (finding) [facility] Start: 1955 Sex Assigned At Male F [facility] Tobacco smoking stat us PAIS Tobacco smoking consumption unknown [facility] Start: 1955 Sex Assigned At [facility] file [facility] Start: 08-12-2022 End: 01-10-2023 Tobacco use and exposure Smokeless tobacco non-user [facility] Work Phone: Start: 01-15-2023 End: 06-09-2023 Alcohol intake Ex-drinker (finding) [facility] Work Phone: How often to you hav e a drink containing alcohol? Never [facility] Work Phone: How many standard drinks containing alcohol do you have on a typical day? Patient does not drink [facility] Work Phone: How hard is it for y ou to pay for the very basics like food, housing, medical care, and heating Somewhat hard [facility] In the past 12 month s, was there a time when you were not able to pay the mortgage or rent on time? No [facility] Work Phone: Start: 01-05-2023 End: 06-09-2023 Exposure to SARS-CoV-2 (event) Not sure [facility] Work Phone: Tobacco [facility] Comment on above: pt states he is a ne miguel angel smoker Tobacco smoking status No Smokin g Status Entered [facility] Start: 04-28-2023 Alcohol intake Lifetime non-d horacio (finding) [facility] Are you now , , , , never or living with a partner? [facility] Do you feel stress - tense, restless, nervous, or anxious, or unable to sleep at night because your mind is troubled all the time - these days [OSQ] Only a little [facility] (I/We) worried wheth er (my/our) food would run out before (I/we) got money to buy more. Never true [facility] Start: 05-25-2023 Gender identity Identifies as male gender (finding) [facility] Work Phone: Start: 06-04-2023 End: 06-14-2023 Exposure to SARS-CoV-2 (event) Unable to assess [facility] Work Phone: Goals Date Patient Goal Desired Activity /State Functional Status Date Assessment Result Facility 06-13-2023 Functional Status N/A [facility] 04-13-2023 Functional Status N/A [facility] 03-14-2023 Functional Status No [facility] 03-14-2023 Functional Status [facility] 02-24-2023 Functional Status N/A [facility] 01-31-2023 Functional Status No [facility] 01-31-2023 Functional Status [facility] 06-29-2022 Functional status Patient at Baseline [facility] Work Phone: 06-25-2022 Functional status Functional Sta tus Comment Patients assists with bathing and dressing [facility] Work Phone: Mental Status Date Assessment Result Facility 06-29-2022 Cognitive function Cognitive Sta tus Patient at Baseline [facility] Work Phone: Clinical Notes 05-09-2020 to 06-21-2023 Hospital Course - Rosaline Rivas MD - 06/21/2023 10:52 AM EDTCare Plan - Jacqueline Boston RN - 06/20/2023 11:18 PM EDTCare Plan - Acacia Valerio RN - 06/19/2023 1:59 AM EDT Note Date & Type Note Facility 06-21-2023 Miscellaneous Notes 67 y/o M with a PMH of HTN, CAD, HFpEF (50-55%), paroxysmal Afib/flutter, ESRD s/p kidney txp (2012), hiatal hernia, GERD, complicated diverticulitis with pericolonic abscess s/p lap sigmoid resection with end colostomy, Dahiana's gangrene s/p multiple I&Ds, and acalculous cholecystitis s/p percutaneous cholecystostomy tube placement on 02/25/23 (removed 06/09/23) who was admitted from OSH for evaluation of biliary colic. Initially required pressors as patient was septic from acute on chronic cholecystitis. On 06/14, patient went to the OR for an Open cholecystectomy. Patient tolerated procedure appropriately and patient was subsequently transferred to ICU, then to regular nursing floor on 06/16. Postoperative course was uncomplicated, and patient progressed appropriately. He remained hemodynamically stable throughout the rest of his hospital course. On 06/21/23, patient was found to be tolerating diet, ambulating near baseline with adequate pain control, voiding spontaneously, and with appropriate bowel function. Patient was subsequently deemed appropriate for discharge to home. Patient was offered home health care but both patient and declined. Medications were sent to patient's preferred pharmacy and transportation was arranged. Instructions for follow up appointments were included in patient's discharge instructions/paperwork. The patient's goals for the shift include The clinical goals for the shift include pt will remain safe during shift Problem: Skin Goal: Decreased wound size/increased tissue granulation at next dressing change Outcome: Progressing Flowsheets (Taken 06/20/2023 1530) Decreased wound size/increased tissue granulation at next dressing change: Promote sleep for wound healing Goal: Participates in plan/prevention/treatment measures Outcome: Progressing Goal: Prevent/manage excess moisture Outcome: Progressing Goal: Prevent/minimize sheer/friction injuries Outcome: Progressing Goal: Promote/optimize nutrition Outcome: Progressing Goal: Promote skin healing Outcome: Progressing Problem: Pain Goal: My pain/discomfort is manageable Outcome: Progressing Problem: Safety Goal: Patient will be injury free during hospitalization Outcome: Progressing Goal: I will remain free of falls Outcome: Progressing Problem: Daily Care Goal: Daily care needs are met Outcome: Progressing Problem: Psychosocial Needs Goal: Demonstrates ability to cope with hospitalization/illness Outcome: Progressing Goal: Collaborate with me, my family, and caregiver to identify my specific goals Outcome: Progressing Problem: Discharge Barriers Goal: My discharge needs are met Outcome: Progressing Problem: Pain Goal: Takes deep breaths with improved pain control throughout the shift Outcome: Progressing Goal: Turns in bed with improved pain control throughout the shift Outcome: Progressing Goal: Walks with improved pain control throughout the shift Outcome: Progressing Goal: Performs ADL's with improved pain control throughout shift Outcome: Progressing Goal: Participates in PT with improved pain control throughout the shift Outcome: Progressing Goal: Free from opioid side effects throughout the shift Outcome: Progressing Goal: Free from acute confusion related to pain meds throughout the shift Outcome: Progressing Problem: Fall/Injury Goal: Not fall by end of shift Outcome: Progressing Goal: Be free from injury by end of the shift Outcome: Progressing Goal: Verbalize understanding of personal risk factors for fall in the hospital Outcome: Progressing Goal: Verbalize understanding of risk factor reduction measures to prevent injury from fall in the home Outcome: Progressing Goal: Use assistive devices by end of the shift Outcome: Progressing Goal: Pace activities to prevent fatigue by end of the shift Outcome: Progressing Problem: Pain - Adult Goal: Verbalizes/displays adequate comfort level or baseline comfort level Outcome: Progressing Problem: Safety - Adult Goal: Free from fall injury Outcome: Progressing Problem: Discharge Planning Goal: Discharge to home or other facility with appropriate resources Outcome: Progressing Problem: Chronic Conditions and Co-morbidities Goal: Patient's chronic conditions and co-morbidity symptoms are monitored and maintained or improved Outcome: Progressing The patient's goals for the shift include The clinical goals for the shift include pain control Problem: Skin Goal: Decreased wound size/increased tissue granulation at next dressing change Outcome: Progressing Goal: Participates in plan/prevention/treatment measures Outcome: Progressing Goal: Prevent/manage excess moisture Outcome: Progressing Goal: Prevent/minimize sheer/friction injuries Outcome: Progressing Goal: Promote/optimize nutrition Outcome: Progressing Goal: Promote skin healing Outcome: Progressing Problem: Pain Goal: My pain/discomfort is manageable Outcome: Progressing Problem: Safety Goal: Patient will be injury free during hospitalization Outcome: Progressing Goal: I will remain free of falls Outcome: Progressing Problem: Daily Care Goal: Daily care needs are met Outcome: Progressing Problem: Psychosocial Needs Goal: Demonstrates ability to cope with hospitalization/illness Outcome: Progressing Goal: Collaborate with me, my family, and caregiver to identify my specific goals Outcome: Progressing Problem: Chronic Conditions and Co-morbidities Goal: Patient's chronic conditions and co-morbidity symptoms are monitored and maintained or improved Outcome: Progressing The patient's goals for the shift include The clinical goals for the shift include pt remains hds Problem: Skin Goal: Decreased wound size/increased tissue granulation at next dressing change Outcome: Progressing Flowsheets (Taken 06/18/20231106) Decreased wound size/increased tissue granulation at next dressing change: Promote sleep for wound healing Protective dressings over bony prominences Goal: Participates in plan/prevention/treatment measures Outcome: Progressing Flowsheets (Taken 06/18/20231106) Participates in plan/prevention/treatment measures: Elevate heels Increase activity/out of bed for meals Goal: Prevent/manage excess moisture Outcome: Progressing Flowsheets (Taken 06/18/20231106) Prevent/manage excess moisture: Monitor for/manage infection if present Goal: Prevent/minimize sheer/friction injuries Outcome: Progressing Flowsheets (Taken 06/18/20231106) Prevent/minimize sheer/friction injuries: Use pull sheet Turn/reposition every 2 hours/use positioning/transfer devices Goal: Promote/optimize nutrition Outcome: Progressing Flowsheets (Taken 06/18/20231106) Promote/optimize nutrition: Monitor/record intake including meals Goal: Promote skin healing Outcome: Progressing Flowsheets (Taken 06/18/20231106) Promote skin healing: Turn/reposition every 2 hours/use positioning/transfer devices Problem: Pain Goal: My pain/discomfort is manageable Outcome: Progressing Problem: Safety Goal: Patient will be injury free during hospitalization Outcome: Progressing Goal: I will remain free of falls Outcome: Progressing Problem: Daily Care Goal: Daily care needs are met Outcome: Progressing Problem: Psychosocial Needs Goal: Demonstrates ability to cope with hospitalization/illness Outcome: Progressing Goal: Collaborate with me, my family, and caregiver to identify my specific goals Outcome: Progressing Problem: Discharge Barriers Goal: My discharge needs are met Outcome: Progressing Problem: Pain Goal: Takes deep breaths with improved pain control throughout the shift Outcome: Progressing Goal: Turns in bed with improved pain control throughout the shift Outcome: Progressing Goal: Walks with improved pain control throughout the shift Outcome: Progressing Goal: Performs ADL's with improved pain control throughout shift Outcome: Progressing Goal: Participates in PT with improved pain control throughout the shift Outcome: Progressing Goal: Free from opioid side effects throughout the shift Outcome: Progressing Goal: Free from acute confusion related to pain meds throughout the shift Outcome: Progressing Problem: Fall/Injury Goal: Not fall by end of shift Outcome: Progressing Goal: Be free from injury by end of the shift Outcome: Progressing Goal: Verbalize understanding of personal risk factors for fall in the hospital Outcome: Progressing Goal: Verbalize understanding of risk factor reduction measures to prevent injury from fall in the home Outcome: Progressing Goal: Use assistive devices by end of the shift Outcome: Progressing Goal: Pace activities to prevent fatigue by end of the shift Outcome: Progressing Problem: Pain - Adult Goal: Verbalizes/displays adequate comfort level or baseline comfort level Outcome: Progressing Problem: Safety - Adult Goal: Free from fall injury Outcome: Progressing Problem: Discharge Planning Goal: Discharge to home or other facility with appropriate resources Outcome: Progressing Problem: Chronic Conditions and Co-morbidities Goal: Patient's chronic conditions and co-morbidity symptoms are monitored and maintained or improved Outcome: Progressing The patient's goals for the shift include The clinical goals for the shift include hemodynamic stability Problem: Skin Goal: Decreased wound size/increased tissue granulation at next dressing change Outcome: Progressing Goal: Participates in plan/prevention/treatment measures Outcome: Progressing Goal: Prevent/manage excess moisture Outcome: Progressing Goal: Prevent/minimize sheer/friction injuries Outcome: Progressing Goal: Promote/optimize nutrition Outcome: Progressing Goal: Promote skin healing Outcome: Progressing Problem: Pain Goal: My pain/discomfort is manageable Outcome: Progressing Problem: Safety Goal: Patient will be injury free during hospitalization Outcome: Progressing Goal: I will remain free of falls Outcome: Progressing Problem: Daily Care Goal: Daily care needs are met Outcome: Progressing Problem: Psychosocial Needs Goal: Demonstrates ability to cope with hospitalization/illness Outcome: Progressing Goal: Collaborate with me, my family, and caregiver to identify my specific goals Outcome: Progressing Problem: Discharge Barriers Goal: My discharge needs are met Outcome: Progressing Problem: Pain Goal: Takes deep breaths with improved pain control throughout the shift Outcome: Progressing Goal: Turns in bed with improved pain control throughout the shift Outcome: Progressing Goal: Walks with improved pain control throughout the shift Outcome: Progressing Goal: Performs ADL's with improved pain control throughout shift Outcome: Progressing Goal: Participates in PT with improved pain control throughout the shift Outcome: Progressing Goal: Free from opioid side effects throughout the shift Outcome: Progressing Goal: Free from acute confusion related to pain meds throughout the shift Outcome: Progressing Problem: Fall/Injury Goal: Not fall by end of shift Outcome: Progressing Goal: Be free from injury by end of the shift Outcome: Progressing Goal: Verbalize understanding of personal risk factors for fall in the hospital Outcome: Progressing Goal: Verbalize understanding of risk factor reduction measures to prevent injury from fall in the home Outcome: Progressing Goal: Use assistive devices by end of the shift Outcome: Progressing Goal: Pace activities to prevent fatigue by end of the shift Outcome: Progressing Problem: Pain - Adult Goal: Verbalizes/displays adequate comfort level or baseline comfort level Outcome: Progressing Problem: Safety - Adult Goal: Free from fall injury Outcome: Progressing Problem: Discharge Planning Goal: Discharge to home or other facility with appropriate resources Outcome: Progressing Problem: Chronic Conditions and Co-morbidities Goal: Patient's chronic conditions and co-morbidity symptoms are monitored and maintained or improved Outcome: Progressing Jagruti Esparza is a 67 y.o. male with a PMH of ESRD s/p LUKT 2012, on immunosuppression, pAF/Afib not on AC (on Flecainide/Diltiazem), diverticulitis s/p sigmpoid colectomy and colostomy, acalculous cholecystitis 02/2023 admitted from OSH due to biliary colic. Pt transferred to ICU due to hypotension, tachycardia requiring IV vasopressors and due to c/f cholangitis he had open cholecystectomy on 06/14. Nephrology following for immunosuppression management. Pt developed ileus and is now NPO. Off of IV vasopressors. Good UOP. #ESRD s/p LUKT 2012 -Allograft function: -allograft function at baseline Scr ~0.6, and pt has good UOP so will monitor closely -metabolic parameters acceptable -strict I/O, daily RFP, avoid nephrotoxic medications, avoid NSAIDS -continue LR 75ml/hr #Immunosuppression -Tacrolimus 0.5mg BID, Prednisone 5mg daily -Tacro 4.4, goal 4-6 -hold Azathioprine in setting of sepsis, bacteremia -Pt is NPO so continue Tacrolimus 0.5mg daily SL and hydrocortisone 20mg IV daily and check FK trough levels #Infectious prophylaxis -bactrim ppx - ok to hold while NPO #CKD-Anemia -Hb 6.9, please order prBC to maintain Hb > 7 -please obtain iron, ferritin prior to transfusion #Acid-base -stable #Septic shock 2/2 cholecystitis s/p open kerline 06/14 - off pressors 06/14 #Gram negative bacilli bacteremia -repeat Bcx 06/15 NGTD -on brauliosydank Jorgensen DO Nephrology fellow PGY 4 Available via [facility] pager #[phone] Problem: Skin Goal: Decreased wound size/increased tissue granulation at next dressing change Outcome: Progressing Flowsheets (Taken 06/16/20232213) Decreased wound size/increased tissue granulation at next dressing change: Promote sleep for wound healing Protective dressings over bony prominences Utilize specialty bed per algorithm Goal: Participates in plan/prevention/treatment measures Outcome: Progressing Flowsheets (Taken 06/16/20232213) Participates in plan/prevention/treatment measures: Discuss with provider PT/OT consult Elevate heels Increase activity/out of bed for meals Goal: Prevent/manage excess moisture Outcome: Progressing Flowsheets (Taken 06/16/20232213) Prevent/manage excess moisture: Cleanse incontinence/protect with barrier cream Monitor for/manage infection if present Moisturize dry skin Follow provider orders for dressing changes Goal: Prevent/minimize sheer/friction injuries Outcome: Progressing Flowsheets (Taken 06/16/20232213) Prevent/minimize sheer/friction injuries: Use pull sheet Increase activity/out of bed for meals Complete micro-shifts as needed if patient unable. Adjust patient position to relieve pressure points, not a full turn HOB 30 degrees or less Turn/reposition every 2 hours/use positioning/transfer devices Utilize specialty bed per algorithm Goal: Promote/optimize nutrition Outcome: Progressing Flowsheets (Taken 06/16/20232213) Promote/optimize nutrition: Monitor/record intake including meals Assist with feeding Consume > 50% meals/supplements Discuss with provider if NPO > 2 days Goal: Promote skin healing Outcome: Progressing Flowsheets (Taken 06/16/20232213) Promote skin healing: Turn/reposition every 2 hours/use positioning/transfer devices Protective dressings over bony prominences Assess skin/pad under line(s)/device(s) Rotate device position/do not position patient on device Ensure correct size (line/device) and apply per herbicide sprayer instructions Problem: Pain Goal: My pain/discomfort is manageable Outcome: Progressing Problem: Safety Goal: Patient will be injury free during hospitalization Outcome: Progressing Goal: I will remain free of falls Outcome: Progressing Problem: Daily Care Goal: Daily care needs are met Outcome: Progressing Problem: Psychosocial Needs Goal: Demonstrates ability to cope with hospitalization/illness Outcome: Progressing Goal: Collaborate with me, my family, and caregiver to identify my specific goals Outcome: Progressing Problem: Discharge Barriers Goal: My discharge needs are met Outcome: Progressing Problem: Daily Care Goal: Daily care needs are met Outcome: Progressing Problem: Pain Goal: Takes deep breaths with improved pain control throughout the shift Outcome: Progressing Goal: Turns in bed with improved pain control throughout the shift Outcome: Progressing Goal: Walks with improved pain control throughout the shift Outcome: Progressing Goal: Performs ADL's with improved pain control throughout shift Outcome: Progressing Goal: Participates in PT with improved pain control throughout the shift Outcome: Progressing Goal: Free from opioid side effects throughout the shift Outcome: Progressing Goal: Free from acute confusion related to pain meds throughout the shift Outcome: Progressing Problem: Fall/Injury Goal: Not fall by end of shift Outcome: Progressing Goal: Be free from injury by end of the shift Outcome: Progressing Goal: Verbalize understanding of personal risk factors for fall in the hospital Outcome: Progressing Goal: Verbalize understanding of risk factor reduction measures to prevent injury from fall in the home Outcome: Progressing Goal: Use assistive devices by end of the shift Outcome: Progressing Goal: Pace activities to prevent fatigue by end of the shift Outcome: Progressing Problem: Pain - Adult Goal: Verbalizes/displays adequate comfort level or baseline comfort level Outcome: Progressing Problem: Safety - Adult Goal: Free from fall injury Outcome: Progressing Problem: Discharge Planning Goal: Discharge to home or other facility with appropriate resources Outcome: Progressing Problem: Chronic Conditions and Co-morbidities Goal: Patient's chronic conditions and co-morbidity symptoms are monitored and maintained or improved Outcome: Progressing Jagruti Esparza is a 67 y.o. male with a PMH of ESRD s/p LUKT 2012, on immunosuppression, pAF/Afib not on AC (on Flecainide/Diltiazem), diverticulitis s/p sigmpoid colectomy and colostomy, acalculous cholecystitis 02/2023 admitted from OSH due to biliary colic. Pt transferred to ICU due to hypotension, tachycardia requiring IV vasopressors and due to c/f cholangitis he had open cholecystectomy on 06/14. Nephrology following for immunosuppression management. Pt developed ileus and is now NPO. Off of IV vasopressors. Good UOP. #ESRD s/p LUKT 2012 -Allograft function: -allograft function at baseline Scr ~0.6, and pt has good UOP so will monitor closely -metabolic parameters acceptable -strict I/O, daily RFP, avoid nephrotoxic medications, avoid NSAIDS -continue LR 75ml/hr #Immunosuppression -Tacrolimus 0.5mg BID, Prednisone 5mg daily -Tacro 4.4, goal 4-6 -hold Azathioprine in setting of sepsis, bacteremia -Pt is NPO so transition to Tacrolimus 0.25mg BID SL and hydrocortisone 20mg IV daily #Infectious prophylaxis -bactrim ppx - ok to hold while NPO #CKD-Anemia -Hb 7.8 -please obtain iron, ferritin #Acid-base -stable #Septic shock / cholecystitis s/p open kerline 06/14 - off pressors 06/14 #Gram negative bacilli bacteremia -on unasyn Joie Jorgensen DO Nephrology fellow PGY 4 Available via [facility] [facility] pager #[phone] Postoperative check: Patient examined at the bedside. No significant events since surgery conclusion around 11am this morning. Patient currently has appropriate incisional pain and has no other complaints at this time. Pressor medications have been discontinued at this time and blood pressure remain stable at 110-120 SBP with MAP in low 50s. PE: Gen: NAD; A/Ox4 CV: RRR, MAP of 51 on monitor; BP 113/61 Pulm: nonlabored respirations currently on RA and saturating well GI: [place] incision CDI with island dressing applied; surgical CHRISTIANO in place with sanguinous output Extremities: 2/4 distal pulses bilaterally; no increased peripheral edema Plan: Continue CHRISTIANO to continuous bulb suction, monitor output quantity/quality Dressing change post-operative day #2 Monitor hemodynamic status, currently without pressor requirement (improved since surgery) Follow up on surgical pathology Continue ABX regimen ICU assistance with patient management appreciated Chauncey Auguste, PGY5 General Surgery Cholecystectomy open Operative Note Date: 06/15/2023 OR Location: [facility] OR Name: Jagruti Esparza, : 1955, Age: 67 y.o., , Sex: male Diagnosis Pre-op Diagnosis * Cholecystitis [K81.9] Post-op Diagnosis * Cholecystitis [K81.9] Procedures Cholecystectomy open [address]22 - [place] CHOLECYSTECTOMY Surgeons * Francisco Olson - Primary * Mayela Avila Resident/Fellow/Other Waste/Materials Exchange Specialist: Surgeon(s) and Role: * Mayela Avila MD Procedure Summary Anesthesia: General ASA: III Anesthesia Staff: Anesthesiologist: Lorena Walker MD C-AA: ALBERTINA Valladares Estimated Blood Loss:Intra-op Medications: Administrations occurring from 0715 to 1120 on 06/15/23: Medication Name Total Dose sodium chloride 0.9 % irrigation solution 3,000 mL acetaminophen (Tylenol) tablet 650 mg Cannot be calculated aspirin EC tablet 81 mg Cannot be calculated atorvastatin (Lipitor) tablet 40 mg Cannot be calculated calcium gluconate in NS IV 1 g Cannot be calculated calcium gluconate in NS IV 2 g Cannot be calculated dextrose 50 % injection 12.5 g Cannot be calculated dextrose 50 % injection 25 g Cannot be calculated enoxaparin (Lovenox) syringe 40 mg Cannot be calculated glucagon (Glucagen) injection 1 mg Cannot be calculated glucagon (Glucagen) injection 1 mg Cannot be calculated insulin lispro (HumaLOG) injection 0-5 Units Cannot be calculated magnesium sulfate IV 2 g Cannot be calculated magnesium sulfate IV 4 g Cannot be calculated meropenem (Merrem) 1 g in sodium chloride 0.9% 100 mL IV Cannot be calculated naloxone (Narcan) injection 0.2 mg Cannot be calculated norepinephrine (Levophed) 8 mg in dextrose 5% 250 mL (0.032 mg/mL) infusion (premix) 0.15 mg ondansetron (Zofran) injection 4 mg Cannot be calculated oxyCODONE (Roxicodone) immediate release tablet 10 mg Cannot be calculated oxyCODONE (Roxicodone) immediate release tablet 5 mg Cannot be calculated pantoprazole (ProtoNix) EC tablet 20 mg Cannot be calculated polyethylene glycol (Glycolax, Miralax) packet 17 g Cannot be calculated potassium chloride 20 mEq in 100 mL IV premix Cannot be calculated potassium chloride 40 mEq in dextrose 5 % in water (D5W) 250 mL IV Cannot be calculated predniSONE (Deltasone) tablet 5 mg Cannot be calculated rOPINIRole (Requip) tablet 1 mg Cannot be calculated sulfamethoxazole-trimethoprim (Bactrim) 400-80 mg per tablet 1 tablet Cannot be calculated tacrolimus (Prograf) capsule 0.5 mg Cannot be calculated tamsulosin (Flomax) 24 hr capsule 0.4 mg 0.4 mg vancomycin (Vancocin) in dextrose 5 % water (D5W) 250 mL IV 1,250 mg Cannot be calculated vancomycin (Vancocin) pharmacy to dose - pharmacy monitoring Cannot be calculated vasopressin (Vasostrict) 0.2 unit/mL infusion 4.01 Units sodium phosphate 15 mmol in sodium chloride 0.9% 250 mL IV Cannot be calculated Anesthesia Record Intraprocedure I/O Totals Intake PLASMA 600.00 mL PRBC 700.00 mL Norepinephrine Drip 0.00 mL The total shown is the total volume documented since Anesthesia Start was filed. Vasopressin Drip 0.00 mL The total shown is the total volume documented since Anesthesia Start was filed. albumin human 25 % 100.00 mL Total Intake 1400 mL Output Urine 110 mL Total Output 110 mL Net Net Volume 1290 mL Specimen: ID Type Source Tests Collected by Time 1 : Gallbladder Tissue GALLBLADDER CHOLECYSTECTOMY SURGICAL PATHOLOGY EXAM Francisco Olson MD 06/15/2023 [id number] Staff: Filler In: Michelle Barba RN; Vivian Martini RN Scrub Person: Deedee Zambrano RN; Chao Kumari RN; Jessica Mary Drains and/or Catheters: Closed/Suction Drain RUQ 10 Fr. (Active) Site Description Healing 06/15/23 1200 Dressing Status Clean;Dry 06/15/23 1200 Drainage Appearance Bloody 06/15/23 1200 Status To bulb suction 06/15/23 1200 Output (mL) 30 mL 06/15/23 1200 Colostomy LLQ (Active) Stomal Appliance 1 piece 06/15/23 1200 Site/Stoma Assessment Clean;Intact 06/15/23 1200 Peristomal Assessment Intact;Clean 06/15/23 1200 Treatment Pouch change 06/15/23 1200 Drainage Characteristics Brown 06/15/231199 Output (mL) 0 mL 06/15/231199 Urethral Catheter (Active) Site Assessment Clean;Skin intact 06/15/231199 Collection Container Standard drainage bag 06/15/231199 Securement Method Securing device (Describe) 06/15/231199 Reason for Continuing Urinary Catheterization accurate hourly measurement of urine volume in a critically ill patient that cannot be assessed by other volumes and urine collection strategies 06/15/23 1200 Output (mL) 15 mL 06/15/23 1200 [REMOVED] Colostomy Other LLQ (Removed) [REMOVED] External Urinary Catheter Male (Removed) Tourniquet Times: Implants: Findings: Markedly dilated Gallbladder with purulence draining from previous percutaneous cholecystostomy tube site. Indications: Jagruti Esparza is an 67 y.o. male who is having surgery for Cholecystitis [K81.9]. The patient was seen in the preoperative area. The risks, benefits, complications, treatment options, non-operative alternatives, expected recovery and outcomes were discussed with the patient. The possibilities of reaction to medication, pulmonary aspiration, injury to surrounding structures, bleeding, recurrent infection, the need for additional procedures, failure to diagnose a condition, and creating a complication requiring transfusion or operation were discussed with the patient. The patient concurred with the proposed plan, giving informed consent. The site of surgery was properly noted/marked if necessary per policy. The patient has been actively warmed in preoperative area. Preoperative antibiotics have been ordered and given within 1 hours of incision. Venous thrombosis prophylaxis have been ordered including bilateral sequential compression devices Procedure Details: Patient was identified in preop and placed on the operating room table in the supine position. After adequate general endotracheal anesthesia and placement of an orogastric tube and bilateral lower extremity pneumatic compression devices the abdomen was prepped and draped in the standard surgical fashion. A right subcostal incision was made with a #10 scalpel blade. The incision was carried down through the underlying adipose tissue layers down to the level of the anterior abdominal wall fascia. The anterior abdominal wall fascia was incised along the length of the incision via electro Bovie cautery. The underlying abdominal wall musculature was divided along the length of the incision via electro Bovie cautery. Both the posterior abdominal wall fascia as well as the peritoneal lining were incised along the length of the incision gaining access to the intra-abdominal cavity. After placement of a Orange retractor the upper abdomen was then explored. The gallbladder was identified and found to be markedly dilated with a thickened wall and multiple large palpable intraluminal stones. On mobilization of the fundus, marked amount of purulence was noted coming from the site of the previously placed cholecystostomy tube. Dissection of the gallbladder from its liver bed was begun in the standard fashion using a dome down technique. This was able to be accomplished to the midportion of the fundus where dense adhesions resulted in entering the liver parenchyma. The dissection continued inferiorly down to the level where the cystic artery was encountered. The cystic artery was tied distally and proximally and divided between ties. Dissection of overlying adhesive tissue the cystic duct was easily identified. The cystic duct was tied distally and proximally and divided between ties with Metzenbaum scissors. The gallbladder was then passed off the table as a specimen. Attention was returned back to the operative field where the amputated cystic duct was grasped with a right angle clamp and the cystic duct was then suture-ligated with a 2 oh's Vicryl suture ligature. The liver bed was noted to have marked amount of coagulopathic bleeding which was controlled with a combination of topical coagulant dressings, external pressure and eventually controlled after implementing argon beam for hemostasis. After confirming adequate hemostasis a right upper quadrant 10 flat fluted Dru-Gee drain was then placed for postoperative drainage via a stab incision in the right upper quadrant. The drain was then sutured to the surrounding skin with 2-0 nylon sutures x 2. The right upper quadrant was then irrigated with warm normal saline until clear and suctioned dry. After adequate hemostasis was ensured all previously placed laparotomy pads were removed as well as removal of the Edmond retractor. The posterior fascial edges of the subcostal incision as well as the anterior fascial edges of the subcostal incision were then reapproximated with #1 PDS suture in a running fashion 1 starting from the medial portion of the incision a second starting from the lateral portion of the incision with both being tied in the midportion of the incision. The subcostal wound was then irrigated with copious amounts of saline until clear and suctioned dry. After adequate hemostasis was ensured the skin edges were then reapproximated with promise. The skin repair was then cleaned and dried followed by placement of sterile 4 x 4 gauze dressings and tape. All needle sponge and instrument counts were correct at the end of the procedure. Patient tolerated the above procedure well and was transported to the TSICU in stable condition and extubated. Complications: None; patient tolerated the procedure well. Disposition: ICU - extubated and stable. Condition: stable Additional Details: Attending Attestation: I was present and scrubbed for the entire procedure. Francisco Olson Date: 06/13/2023 - 06/15/2023 OR Location: [facility] OR Name: Jagruti Esparza, : 1955, Age: 67 y.o., , Sex: male Diagnosis Pre-op Diagnosis * Cholecystitis [K81.9] Post-op Diagnosis * Cholecystitis [K81.9] Procedures Cholecystectomy open 93008 - [place] CHOLECYSTECTOMY Surgeons * Francisco Olson - Primary * Mayela Avila Resident/Fellow/Other Waste/Materials Exchange Specialist: Surgeon(s) and Role: * MD Chauncey Mario, PGY5 Procedure Summary Anesthesia: General ASA: III Anesthesia Staff: Anesthesiologist: Lorena Walker MD C-AA: ALBERTINA Valladares Estimated Blood Loss: 1400mL Intra-op Medications: Administrations occurring from 0715 to 1120 on 06/15/23: Medication Name Total Dose sodium chloride 0.9 % irrigation solution 3,000 mL acetaminophen (Tylenol) tablet 650 mg Cannot be calculated aspirin EC tablet 81 mg Cannot be calculated atorvastatin (Lipitor) tablet 40 mg Cannot be calculated calcium gluconate in NS IV 1 g Cannot be calculated calcium gluconate in NS IV 2 g Cannot be calculated dextrose 50 % injection 12.5 g Cannot be calculated dextrose 50 % injection 25 g Cannot be calculated dilTIAZem SR (Cardizem SR) 12 hr capsule 90 mg Cannot be calculated enoxaparin (Lovenox) syringe 40 mg Cannot be calculated glucagon (Glucagen) injection 1 mg Cannot be calculated glucagon (Glucagen) injection 1 mg Cannot be calculated insulin lispro (HumaLOG) injection 0-5 Units Cannot be calculated magnesium sulfate IV 2 g Cannot be calculated magnesium sulfate IV 4 g Cannot be calculated meropenem (Merrem) 1 g in sodium chloride 0.9% 100 mL IV Cannot be calculated naloxone (Narcan) injection 0.2 mg Cannot be calculated norepinephrine (Levophed) 8 mg in dextrose 5% 250 mL (0.032 mg/mL) infusion (premix) 0.2 mg ondansetron (Zofran) injection 4 mg Cannot be calculated oxyCODONE (Roxicodone) immediate release tablet 10 mg Cannot be calculated oxyCODONE (Roxicodone) immediate release tablet 5 mg Cannot be calculated pantoprazole (ProtoNix) EC tablet 20 mg Cannot be calculated polyethylene glycol (Glycolax, Miralax) packet 17 g Cannot be calculated potassium chloride 20 mEq in 100 mL IV premix Cannot be calculated potassium chloride 40 mEq in dextrose 5 % in water (D5W) 250 mL IV Cannot be calculated predniSONE (Deltasone) tablet 5 mg Cannot be calculated rOPINIRole (Requip) tablet 1 mg Cannot be calculated sulfamethoxazole-trimethoprim (Bactrim) 400-80 mg per tablet 1 tablet Cannot be calculated tacrolimus (Prograf) capsule 0.5 mg Cannot be calculated tamsulosin (Flomax) 24 hr capsule 0.4 mg Cannot be calculated vancomycin (Vancocin) in dextrose 5 % water (D5W) 250 mL IV 1,250 mg Cannot be calculated vancomycin (Vancocin) pharmacy to dose - pharmacy monitoring Cannot be calculated vasopressin (Vasostrict) 0.2 unit/mL infusion 5.47 Units sodium phosphate 15 mmol in sodium chloride 0.9% 250 mL IV Cannot be calculated Anesthesia Record Intraprocedure I/O Totals Intake PLASMA 600.00 mL PRBC 700.00 mL Norepinephrine Drip 0.00 mL The total shown is the total volume documented since Anesthesia Start was filed. Vasopressin Drip 0.00 mL The total shown is the total volume documented since Anesthesia Start was filed. Total Intake 1300 mL Output Urine 110 mL Total Output 110 mL Net Net Volume 1190 mL Specimen: ID Type Source Tests Collected by Time 1 : Gallbladder Tissue GALLBLADDER CHOLECYSTECTOMY SURGICAL PATHOLOGY EXAM Francisco Olson MD 06/15/2023 0109 Staff: Filler In: Michelle Barba RN; Vivian Martini RN Scrub Person: Deedee Zambrano RN; Chao Kumari RN; Jessica Mary Findings: severe acute cholecystitis with multiple stones. Purulence around prior PCT tract Complications: None; patient tolerated the procedure well. Disposition: ICU - extubated and stable. Condition: stable Specimens Collected: ID Type Source Tests Collected by Time 1 : Gallbladder Tissue GALLBLADDER CHOLECYSTECTOMY SURGICAL PATHOLOGY EXAM Francisco Olson MD 06/15/2023926 Attending Attestation: Francisco Olson Rapid Response RN Note 06/14/23722 Onset Documentation Rapid Response Initiated By RN Location/Room [facility] [facility] Pager Time 722 Arrival Time 726 Event End Time 831 Level II Called No Primary Reason for Call SBP less than or equal to 90 mmHg Rapid response called for hypotension. BP 84/42 after receiving a total of 3 L in fluid boluses overnight. Primary team ACS team Dr. Rivas at bedside. 500 ml bolus initiated. Patient alert and oriented x3 on arrival. Complaining of right sided abdominal pain. Denies dizziness or lightheadedness. Labs sent. Vitals rechecked. BP 91/53. Dr. Olson at bedside and accepted patient to SICU. Rapid response assisted with transfer to TSICU bed 13. Staff to page rapid response for any concerns or acute change in condition/VS. Problem: Skin Goal: Decreased wound size/increased tissue granulation at next dressing change Outcome: Progressing Goal: Participates in plan/prevention/treatment measures Outcome: Progressing Goal: Prevent/manage excess moisture Outcome: Progressing Goal: Prevent/minimize sheer/friction injuries Outcome: Progressing Goal: Promote/optimize nutrition Outcome: Progressing Goal: Promote skin healing Outcome: Progressing Problem: Pain Goal: My pain/discomfort is manageable Outcome: Progressing Problem: Safety Goal: Patient will be injury free during hospitalization Outcome: Progressing Goal: I will remain free of falls Outcome: Progressing Problem: Safety Goal: Patient will be injury free during hospitalization Outcome: Progressing Goal: I will remain free of falls Outcome: Progressing Problem: Daily Care Goal: Daily care needs are met Outcome: Progressing Problem: Psychosocial Needs Goal: Demonstrates ability to cope with hospitalization/illness Outcome: Progressing Goal: Collaborate with me, my family, and caregiver to identify my specific goals Outcome: Progressing Problem: Discharge Barriers Goal: My discharge needs are met Outcome: Progressing Problem: Pain Goal: Takes deep breaths with improved pain control throughout the shift Outcome: Progressing Goal: Turns in bed with improved pain control throughout the shift Outcome: Progressing Goal: Walks with improved pain control throughout the shift Outcome: Progressing Goal: Performs ADL's with improved pain control throughout shift Outcome: Progressing Goal: Participates in PT with improved pain control throughout the shift Outcome: Progressing Goal: Free from opioid side effects throughout the shift Outcome: Progressing Goal: Free from acute confusion related to pain meds throughout the shift Outcome: Progressing Problem: Fall/Injury Goal: Not fall by end of shift Outcome: Progressing Goal: Be free from injury by end of the shift Outcome: Progressing Goal: Verbalize understanding of personal risk factors for fall in the hospital Outcome: Progressing Goal: Verbalize understanding of risk factor reduction measures to prevent injury from fall in the home Outcome: Progressing Goal: Use assistive devices by end of the shift Outcome: Progressing Goal: Pace activities to prevent fatigue by end of the shift Outcome: Progressing The patient's goals for the shift include The clinical goals for the shift include Rapid Response RN Note Rapid response RN at bedside for RADAR score 7 due to the recent VS listed below: Vitals: 06/14/23 0230 06/14/23 0250 06/14/23 0300 06/14/23 0311 BP: 169/85 BP Location: Patient Position: Pulse: (S) (!) 160 (!) 149 (!) 130 (!) 125 Resp: Temp: (S) 39 C (102.2 F) TempSrc: Oral SpO2: (S) (!) 85% 96% Weight: Height: Upon arrival to floor, pt febrile and rigors noted. Per RN, pt had a septic work up completed prior to arrival to floor. Tylenol given by RN. Primary team called to bedside. Dr Nic Chatterjee came to bedside. 12 lead EKG obtained. On tele with heart rate in the 160's. Liter LR bolus started with improvement in heart rate. Meropenem was ordered but not given. Meropenem started. Sinus tachycardic on tele at this time. Pt to responding to fluids. Remains on tele. Rigors subsided. Family member at bedside updated. Staff to page rapid response for any concerns or acute change in condition/VS. Notified by nursing that patient was tachycardic into the 160s, febrile to 39, and saturating at 85%. Upon seeing pt, Rapid response nursing was at bedside (radar page). Pt was shivering but AOx3. Pt previously received 1 L LR bolus in ED and vancomycin but no meropenem. Lactate in ED was 5 which improved after bolus. A new 1 L bolus and meropenem was started on the floor. Attempts were also made for establishing additional Iv access. With fluids pt HR quickly improved to 110s and O2 sats improved to 100% on NC. Pt shivering improved. PT Likely under resuscitated and additionally responding to antibiotics. Will continue to monitor. Seen with Dr. Light. Mery Jones MD Rapid Response RN Note 06/13/232148 Onset Documentation Rapid Response Initiated By RN Location/Room [facility] [place] (ED room 23) Pager Time 2142 Arrival Time 2148 Event End Time 2304 Primary Reason for Call HR greater than or equal to 130 Rapid response team at bedside for HR > 130s and concern for atrial fibrillation. YOUSUF Hokpins at bedside. Primary Acute Care Surgery service paged and at bedside. VS reported upon rapid response team arrival at 2148: T 39.3 Celsius; HR 153 ; RR 19; BP 183/94; SPO2 96% on room air. Patient alert with visible rigors. Acetaminophen had been administered by ED staff. Metronidazole infusing. 12-lead EKG completed and reviewed by Dr. Siddiqui. Heart sounds regular. EKG showed narrow complex tachycardia. IV fluid bolus initiated. Multiple attempts to obtain blood cultures and second peripheral IV. # 22 gauge IV infiltrated during rapid response event. ED staff obtained additional IV access. Patient accepted to TSICU. VS at 2250: T 39.3 C, HR 105-115, SPO2 94% on room air. No visible rigors noted. Patient to be transferred to TSICU for further management when bed available. documented in this encounter [facility] Work Phone: 06-21-2023 History of Present illness Narrative Jagruti Esparza is a 67 y.o. male on day 5 of admission presenting with Cholecystitis. DC Plannin/5: Went in and met with the pt, confirmed demographics. Pt lives at home with , sons come and help as needed. Pt is wheelchair bound at home. Had PT/OT/RN coming into his house until about 1 month ago, insurance said it would not be covered anymore through them. PT/OT rec'd Mod for snf. Pt refusing snf. Would like to go home with home care. HC was through [facility]. Referral sent to [facility]. Please have all medications sent to [facility] in [place]. Do not do Meds to Beds. 06/20: Pt ready to go home. Transportation requested. No home care needed. stated that family will take care of pt and they do not want/need home care. The [employer] Vehicle you requested for Jagruti Scott in unit/room 9032 on 06/21/2023 is scheduled to arrive at 12:45pm EDT! [facility] is handling this ride and you can contact them at . PCP: Aishwarya Lundy Last Seen: a month ago ADOD: 06/20 This TCC will continue to follow for home going needs and safe DC plan. BETTY GORE Images from the original note were not included. Pharmacy to Dose Vancomycin: Jagruti Esparza is a 67 y.o. male ordered pharmacy to dose vancomycin for abdominal infection . Today is day 6 of therapy. Goal: AUC 400-600mg/L*hr Results from last 7 days Lab Units 06/19/23 0503 06/19/23 0502 06/18/23 0957 06/17/23 0610 06/17/23 0009 BUN mg/dL 10 -- 11 -- 17 CREATININE mg/dL 0.42* -- 0.46* -- 0.50 WBC AUTO x10*3/uL -- 4.6 5.4 -- 9.2 VANCOMYCIN RM ug/mL 26.6* -- -- < > -- < > = values in this interval not displayed. Urine Culture Date/Time Value Ref Range Status 06/13/2023 06:29 PM No growth Final Blood Culture Date/Time Value Ref Range Status 06/16/2023 12:07 PM No growth at 2 days Preliminary 06/16/2023 12:07 PM No growth at 2 days Preliminary Tissue/Wound Culture/Smear Date/Time Value Ref Range Status 04/13/2023 06:59 PM (4+) Abundant Escherichia coli (A) Final Comment: For antibiotic susceptibility results see Specimen # - [id number] Gram Stain Date/Time Value Ref Range Status 06/13/2023 10:53 PM Gram negative bacilli (AA) Final Comment: Aerobic Bottle Positive 06/13/2023 10:53 PM Gram positive cocci, clusters (AA) Final Comment: Aerobic Bottle Positive Renal function remains stable. Patient's current regimen is predicted to achieve AUC24,ss of 579. Plan: Continue vanco [id number]. The above dosing regimen is predicted by [employer] to result in the following pharmacokinetic parameters: Follow-up level ordered for 4/10 AM unless clinically indicated sooner. Pharmacy will continue daily vancomycin monitoring. Please contact the pharmacy with any questions. Thank you, Juan M Neves RPh Transplant Nephrology progress note Date of admission: 06/13/2023 Jagruti Esparza is a 67 y.o. with [facility] Past Medical History: Diagnosis Date PONV (postoperative nausea and vomiting) SUBJECTIVE: C/o pain other smith no other complaints PROBLEM LIST: Principal Problem: Cholecystitis Active Problems: Urinary tract infection Hiatal hernia ALLERGIES: Allergies Allergen Reactions Cephalexin Hives, Rash and Headache headache Other reaction(s): Unknown Reaction headache Tobramycin Rash Other Reaction(s): pain rash Pain in groin and rectum area Other Reaction(s): pain rash Pain in groin and rectum area Meperidine Dizziness [place] weird Other reaction(s): Other: See Comments, Unknown Reaction dizziness Erythromycin Rash headache Other reaction(s): Other: See Comments headache Penicillins Hives and Rash At 8 months old, swelling and hives. CURRENT MEDICATIONS: Scheduled medications acetaminophen, 650 mg, oral, q4h ampicillin-sulbactam, 3 g, intravenous, q6h aspirin, 81 mg, oral, Daily atorvastatin, 40 mg, oral, Nightly dilTIAZem CD, 180 mg, oral, Daily enoxaparin, 40 mg, subcutaneous, q24h insulin lispro, 0-5 Units, subcutaneous, q4h lidocaine, 2 patch, transdermal, Daily magnesium sulfate, 2 g, intravenous, Once methocarbamol, 1,000 mg, intravenous, q8h pantoprazole, 40 mg, oral, Daily before breakfast polyethylene glycol, 17 g, oral, Daily potassium chloride, 20 mEq, intravenous, Once rOPINIRole, 1 mg, oral, Nightly sulfamethoxazole-trimethoprim, 1 tablet, oral, q AM tacrolimus, 0.5 mg, sublingual, q24h tamsulosin, 0.4 mg, oral, BID vancomycin, 750 mg, intravenous, q12h Continuous medications dextrose 5 % and lactated Ringer's, 75 mL/hr, Last Rate: 75 mL/hr (06/18/23 0402) PRN medications PRN medications: dextrose, dextrose, glucagon, glucagon, ondansetron, oxyCODONE, oxyCODONE, vancomycin OBJECTIVE: VITALS: Visit Vitals BP 106/56 (BP Location: Left arm, Patient Position: Lying) Pulse 98 Temp 36.3 C (97.3 F) (Temporal) Resp 16 Ht 1.753 m (5' 9 ) Wt 77.2 kg (170 lb 3.1 oz) SpO2 95% BMI 25.13 kg/m Smoking Status Never BSA 1.94 m General: No distress CVS: S1 S2 no murmurs RESP: Lungs clear to auscultation ABDO: Soft, non-tender Neuro: A + O x 3 Skin: No rash Extremities: edema in UE and LE b/l LABS: Results from last 72 hours Lab Units 06/18/23 0957 06/17/23 1635 WBC AUTO x10*3/uL 5.4 -- HEMOGLOBIN g/dL 6.9* -- MCV fL 88 -- PLATELETS AUTO x10*3/uL 148* -- BUN mg/dL 11 -- CREATININE mg/dL 0.46* -- CALCIUM mg/dL 10.1 -- TACROLIMUS ng/mL -- 4.3 Intake/Output Summary (Last 24 hours) at 06/18/2023 1246 Last data filed at 06/18/2023 0844 Gross per 24 hour Intake 1805 ml Output 1005 ml Net 800 ml ASSESSMENT AND PLAN: Jagruti Esparza is a 67 y.o. male with a PMH of ESRD s/p LUKT 2012, on immunosuppression, pAF/Afib not on AC (on Flecainide/Diltiazem), diverticulitis s/p sigmpoid colectomy and colostomy, acalculous cholecystitis 02/2023 admitted from OSH due to biliary colic. Pt transferred to ICU due to hypotension, tachycardia requiring IV vasopressors and due to c/f cholangitis he had open cholecystectomy on 06/14. Nephrology following for immunosuppression management. #ESRD s/p LUKT 2012 -Allograft function: -allograft function at baseline Scr ~0.6, and pt has good UOP -strict I/O, daily RFP, avoid nephrotoxic medications, avoid NSAIDS -Pt appears hypervolemic on exam -> recommend discontinuing IVF and encouraging PO intake -hypophos -> will replete #Immunosuppression -Tacrolimus 0.5mg BID, Prednisone 5mg daily -Tacro 4.4, goal 4-6 -Ok to restart Azathioprine today Transitioned CLD so restarted on Tacrolimus 0.5mg BID and Prednisone 5mg daily #Infectious prophylaxis -bactrim ppx - restart #CKD-Anemia -Hb 6.9, please order prBC to maintain Hb > 7 -will obtain iron, ferritin. If stores adequate will start Aranesp #Ileus -transitioned to CLD today #Acid-base -stable #Septic shock 2/2 cholecystitis s/p open kerline 06/14 - off pressors 06/14 #Gram negative bacilli bacteremia -repeat Bcx 06/15 NGTD -on unasydank Jorgensen, DO Nephrology fellow PGY 4 Available via [facility] pager #[phone] Joie Jorgensen DO Nephrology fellow PGY 4 Available via [facility] pager #[phone] Wound Care Progress Note Visit Date: 06/17/2023 Patient Name: Jagruti Esparza Reason for Visit: Ostomy pouch change Wound History: S/p Colostomy Ostomy Assessment: Colostomy LLQ (Active) Placement Date/Time: 06/13/23 0000 Hand Hygiene Completed: Yes Location: LLQ Number of days: 4 Colostomy LLQ (Active) Stomal Appliance 1 piece;Changed 06/17/231653 Site/Stoma Assessment Clean;Intact;Red 06/17/231653 Peristomal Assessment Clean;Intact 06/17/231653 Treatment Pouch change;Site care 06/17/231653 Drainage Characteristics Brown 06/15/23 1200 Output (mL) 0 mL 06/17/23 1600 Ostomy type: colostomy size: 1 1/4 oval color: pink and moist protruding: budded George: none Functioning: positive flatus Mucocutaneous junction: intact Peristomal skin: clean and intact Pouchin piece [place] premier flat pouch Ostomy Education: patient and are familiar with his ostomy care Plan: assess stoma/pouching Wound Team Plan: See twice weekly for pouch changes Richardson Malave RN-, CWON 06/17/2023 4:54 PM Occupational Therapy Evaluation and Treatment Patient Name: Jagruti Esparza Today's Date: 06/17/2023 Time Calculation Start Time: 1133 Stop Time: 1213 Time Calculation (min): 40 min Assessment IP OT Assessment OT Assessment: Pt is a 67 year old male who demonstrates decreased strength, balance, and activity tolerance, which impedes occupational performance. Prognosis: Good Evaluation/Treatment Tolerance: Patient tolerated treatment well Medical Staff Made Aware: Yes End of Session Communication: Bedside nurse End of Session Patient Position: Bed, 3 rail up, Alarm off, not on at start of session Plan: Treatment Interventions: ADL retraining, Functional transfer training, UE strengthening/ROM, Cognitive reorientation, Endurance training, Patient/family training, Equipment evaluation/education, Neuromuscular reeducation, Fine motor coordination activities, Compensatory technique education OT Frequency: 3 times per week OT Discharge Recommendations: Moderate intensity level of continued care (would benefit from LOW intensity if pt refuses MOD intensity) Equipment Recommended upon Discharge: (none) OT Recommended Transfer Status: Dependent OT - OK to Discharge: Yes Subjective Current Problem: 1. Cholecystitis Case Request Operating Room: Cholecystectomy Case Request Operating Room: Cholecystectomy Surgical Pathology Exam Surgical Pathology Exam 2. Chronic heart failure, unspecified heart failure type (CMS/HCC) Transthoracic Echo (TTE) Limited Transthoracic Echo (TTE) Limited 3. Heart failure with improved ejection fraction (HFimpEF) (CMS/HCC) Transthoracic Echo (TTE) Limited Transthoracic Echo (TTE) Limited 4. Encounter for preprocedural cardiovascular examination Transthoracic Echo (TTE) Limited General: Reason for Referral: transferred to [facility] [place] [facility] on 06/12. 06/13: admitted to [facility] from [facility] d/t septic shock, s/p open cholecystectomy on 06/14 Past Medical History Relevant to Rehab: 2. Diverticulitis s/p colostomy 3. Afib on eliquis 4. CHF 5. CAD 6. Aortic strenosis 7. Dahiana's gangrene 8. Perc kerline - s/p perc kerline tube placement, removed on 06/09/23 Co-Treatment: (industrial rehabilitation consultant assisted with mobility) Prior to Session Communication: Bedside nurse, Physician Patient Position Received: Bed, 3 rail up, Alarm off, not on at start of session Family/Caregiver Present: Yes Caregiver Feedback: at bedside, active in care General Comment: Pt supine in bed upon arrival. Agreeable to participate with minimal encouragement Precautions: Medical Precautions: Fall precautions, Abdominal precautions Precautions Comment: SBP > 100 off cuff Vital Signs: Heart Rate: 104 (Post: 114) Resp: 23 (Post: 24) SpO2: 96 % (Post: 99) BP: 112/72 (EOB: 128/65; Post: 96/49) Pain: Pain Assessment Pain Assessment: 0-10 Pain Score: 8 Pain Type: Acute pain Pain Location: Scrotum Lines/Tubes/Drains: CVC 06/14/23 Triple lumen Non-tunneled Right Internal jugular (Active) Number of days: 3 Closed/Suction Drain RUQ 10 Fr. (Active) Number of days: 2 Colostomy LLQ (Active) Number of days: 4 External Urinary Catheter Male (Active) Number of days: 0 Objective Cognition: Overall Cognitive Status: Within Functional Limits Orientation Level: Oriented X4 Cognition Comments: moderately self directed Insight: Mild Confusion Assessment Method (CAM) Acute Onset and Fluctuating Course (1A): Yes Acute Onset and Fluctuating Course (1B): Yes Inattention (2): No Disorganized Thinking (3): No Rate Patient's Level of Consciousness (4): Alert (Normal), No Delirium Present: No Home Living: Type of Home: House Lives With: Spouse (son lives next door) Home Adaptive Equipment: Walker rolling or standard, Wheelchair-manual, Wheelchair-power, Hospital bed (dimitris) Home Layout: One level Home Access: Ramped entrance Home Living Comments: Pt has been primarily bedbound since prior to previous admission. Reports having all necessary AD/DME at home. Occassionally transfers OOB to rocking chair in which Son will assist pt with EOB sitting and then stand pivot pt from bed to rocking chair with Isaac A. Recieved a dimitris lift for home use after previous hospital admission however pt states he was unable to use it. Prior Function: Prior Function Comments: Pt non-ambulatory for >1 year. provides assist with sponge baths and dressing. Pt attempts to feed and groom self, but requires some assist 2/2 peripheral neuropathy and UE weakness. Pt uses urinal to urinate and has ostomy for stool. Ran out of therapy visits at home. ADL: Eating Assistance: Moderate Grooming Assistance: Minimal Grooming Deficit: (oral care seated EOB) Bathing Assistance: Maximal UE Dressing Assistance: Maximal LE Dressing Assistance: Total Toileting Assistance with Device: Total Activity Tolerance: Endurance: Tolerates 10 - 20 min exercise with multiple rests Early Mobility/Exercise Safety Screen: Proceed with mobilization - No exclusion criteria met Bed Mobility/Transfers: Bed Mobility Bed Mobility: Yes Bed Mobility 1 Bed Mobility 1: Supine to sitting, Sitting to supine Level of Assistance 1: Dependent (x2) Bed Mobility Comments 1: draw sheet, HOB elevated Vision: Vision - Basic Assessment Current Vision: Does not wear glasses Sensation: Sensation Comment: baseline neuropathy in bilat hands and feet. Pt reports hand neuropathy has associated tremors Coordination: Movements are Fluid and Coordinated: No Extremities: RUE RUE : (fistula present. Shoulder ROM limited to ~90 degrees and elbow flexion limited by fistula. Strength overall grossly 3-/5), LUE LUE: (shoulder 2+/5, otherwise grossly 3/5), Treatment Completed on Evaluation Therapy/Activity: Therapeutic Activity Therapeutic Activity Performed: Yes Therapeutic Activity 1: Pt sat EOB ~12 minutes with CGA-min A for sitting balance. While seated EOB, performed oral care with suction toothbrush with left hand and increased time and LAQs bilaterally x5 repetitions. Outcome Measures: [facility] Daily Activity Putting on and taking off regular lower body clothing: Total Bathing (including washing, rinsing, drying): A lot Putting on and taking off regular upper body clothing: A lot Toileting, which includes using toilet, bedpan or urinal: Total Taking care of personal grooming such as brushing teeth: A little Eating Meals: A lot Daily Activity - Total Score: 11 ICU Mobility Screen Early Mobility/Exercise Safety Screen: Proceed with mobilization - No exclusion criteria met, Education Documentation Handouts, taught by Cheli Arroyo OT at 06/17/2023 3:48 PM. Learner: Significant Other, Patient Readiness: Acceptance Method: Explanation, Demonstration Response: Verbalizes Understanding Body Mechanics, taught by Cheli Arroyo OT at 06/17/2023 3:48 PM. Learner: Significant Other, Patient Readiness: Acceptance Method: Explanation, Demonstration Response: Verbalizes Understanding Precautions, taught by Cheli Arroyo OT at 06/17/2023 3:48 PM. Learner: Significant Other, Patient Readiness: Acceptance Method: Explanation, Demonstration Response: Verbalizes Understanding Home Exercise Program, taught by Cheli Arroyo OT at 06/17/2023 3:48 PM. Learner: Significant Other, Patient Readiness: Acceptance Method: Explanation, Demonstration Response: Verbalizes Understanding ADL Training, taught by Cheli Arroyo OT at 06/17/2023 3:48 PM. Learner: Significant Other, Patient Readiness: Acceptance Method: Explanation, Demonstration Response: Verbalizes Understanding Education Comments No comments found. Goals: Encounter Problems Encounter Problems (Active) ADLs Patient with complete upper body dressing with moderate assist level of assistance donning and doffing all UE clothes with PRN adaptive equipment Start: 06/17/23 Expected End: 07/01/23 Patient will feed self with minimal assist level of assistance using PRN adaptive equipment. Start: 06/17/23 Expected End: 07/01/23 Patient will complete daily grooming tasks with set-up and stand by assist level of assistance and PRN adaptive equipment. Start: 06/17/23 Expected End: 07/01/23 EXERCISE/STRENGTHENING Patient will be educated on BUE HEP for increased ADL performance. Start: 06/17/23 Expected End: 07/01/23 TRANSFERS Patient will complete functional transfer to chair with least restrictive device with maximal assist level of assistance. Start: 06/17/23 Expected End: 07/01/23 Patient will complete sit to stand transfer with maximal assist level of assistance and least restrictive device in order to improve safety and prepare for out of bed mobility. Start: 06/17/23 Expected End: 07/01/23 06/17/23 at 3:54 PM Cheli Arroyo OT Rehab Office: [phone] Vancomycin Dosing by Pharmacy- FOLLOW UP Jagruti Esparza is a 67 y.o. year old male who Pharmacy has been consulted for vancomycin dosing for other abdominal infection . Based on the patient's indication and renal status this patient is being dosed based on a goal AUC of 400-600. Renal function is currently stable. Current vancomycin dose: 750 mg given every 12 hours Estimated vancomycin AUC on current dose: 521 mg/L.hr Visit Vitals BP (!) 114/48 Pulse 95 Temp 36.4 C (97.5 F) (Temporal) Resp 14 Lab Results Component Value Date CREATININE 0.50 06/17/2023 CREATININE 0.58 06/16/2023 CREATININE 0.59 06/15/2023 CREATININE 0.66 06/15/2023 Patient weight is No results found for: PTWEIGHT No results found for: CULTURE I/O last 3 completed shifts: In: 4787.3 (62 mL/kg) [I.V.:2387.3 (30.9 mL/kg); IV Piggyback:2400] Out: 1501 (19.4 mL/kg) [Urine:1417 (0.5 mL/kg/hr); Drains:84] Weight: 77.2 kg @IOTHISSHIFT@ Lab Results Component Value Date PATIENTTEMP 37.0 06/16/2023 PATIENTTEMP 37.0 06/16/2023 PATIENTTEMP 37.0 06/15/2023 Assessment/Plan Within goal random/trough level. Continue current dose. This dosing regimen is predicted by [employer] to result in the following pharmacokinetic parameters: Loading dose: N/A Regimen: 750 mg IV every 12 hours. Start time: 08:58 on 06/17/2023 Exposure target: AUC24 (range)400-600 mg/L.hr AUC24,ss: 521 mg/L.hr Probability of AUC24 > 400: 100 % Ctrough,ss: 17 mg/L Probability of Ctrough,ss > 20: 9 % Probability of nephrotoxicity (Lodise BRYSON 2008): 13 % The next level will be obtained on 06/18 at AM labs. May be obtained sooner if clinically indicated. Will continue to monitor renal function daily while on vancomycin and order serum creatinine at least every 48 hours if not already ordered. Follow for continued vancomycin needs, clinical response, and signs/symptoms of toxicity. Juan M Grider PharmD [facility] TRAUMA ICU - PROGRESS NOTE Patient Name: Jagruti Esparza Admit Date: [id number] : 1955 AGE: 67 y.o. GENDER: male 67 y/o M w/ PMH of acalculous cholecystitis s/p perc kerline tube placement, removed on 06/09/23, transferred to [facility] on 06/12. 06/13: admitted to [facility] from [facility] d/t septic shock. LOC (yes/no?): No Anticoagulant / Anti-platelet Rx? (for what dx?): Eliquis last dose 06/12 Referring Facility Name (N/A for scene EMR run): [facility] OTHER MEDICAL PROBLEMS: ESRD s/p renal transplant Diverticulitis s/p colostomy Afib on eliquis CHF CAD Aortic strenosis Dahiana's gangrene Perc kerline INCIDENTAL FINDINGS: None PROCEDURES: 06/14: Open Cholecystectomy TODAY'S ASSESSMENT AND PLAN OF CARE: Jagruti Esparza is a 67 y.o. male in the ICU due to: Septic shock requiring close hemodynamic monitoring and pressor support. NEURO/PAIN/SEDATION: - GCS 15 - Continue 0.2 (moderate) 0.4 (severe) IV Dilaudid - Continue Lido patches x2, RUQ, R lateral chest - Continue Scheduled IV tylenol q8h RESPIRATORY: - Intubated in the OR for open kerline & extubated post procedure (06/14) - Currently on RA, maintain O2 sat >95% - Multimodal pain management - Maintain O2 sat >92% - O2 as needed - IS - Bronchial hygiene CARDIOVASC: Septic Shock - Off Vasopressors - SBP goal >100 mmhg - Continue home Atorvastatin - Holding home Eliquis & Cardizem GI: Diverticulitis s/p colostomy Post-op ileus Hx of GERD - No ostomy output over 24 hr, accompanied by abd distention & eructation - Maintain strict NPO in the setting of new ileus - Monitor ostomy output - Hold Miralax - PO Protonix 20 mg BID -> 40 mg IV daily : ESRD s/p renal transplant - Adequate UOP - - Monitor kidney function - Discontinue bowers - Hold ppx bactrim & flomac - Switch PO tacro -> SL - Tacro level 4/4 AM 5.4, please maintain 0.5 mg SL daily for now per Transplant Neph - Continue IV methylpred - Holding Imuran in the setting of sepsis - Strict I/Os FEN: - IV maintenance LR 75 ml/hr - +1.1L 06/16 Urine output 1L ml in 24 hr - Monitor electrolytes - Replete electrolytes as needed HEMATOLOGIC: - H/H stable hgb 7.3 -> 7.1 ->6.9. HDS, no active bleeding - Daily CBC - Normal post-op TEG ENDOCRINE: - No hx of DM - Blood glucose monitoring q6h - SSI MUSCULOSKELETAL/SKIN: - Frequent turns - Skin care per unit protocol - PT/OT - Hold home Ropinirole INFECTIOUS DISEASE: - Blood cx from 06/12 growing E.coli. Meropenem -> Unasyn - Continue Vanco given gram positive cocci on Bcx from 06/12 - follow up repeat Bcx x2 - Afebrile, WBC 14.2 ->13.6 ->8.7 - Monitor temp - Daily cbc GI PROPHYLAXIS: Home PPI DVT PROPHYLAXIS: Lovenox DISPOSITION: Anticipating liberation from ICU today CHIEF COMPLAINT / OVERNIGHT EVENTS / HPI: 67 y/o M w/ PMH of acalculous cholecystitis s/p perc kerline tube placement, removed on 06/09/23, transferred to [facility] [facility] on 06/12. 06/13: admitted to [facility] from [facility] d/t septic shock. 06/14: Open kerline No acute event overnight MEDICAL HISTORY / ROS: Admission history and ROS reviewed. Pertinent changes as follows: RUQ pain ESRD s/o renal transplant Diverticulitis s/p end colectomy PHYSICAL EXAM: Heart Rate: [74-100] Temp: [36 C (96.8 F)-36.6 C (97.9 F)] Resp: [12-23] BP: (97-130)/(37-54) Weight: [77.2 kg (170 lb 3.1 oz)] SpO2: [91 %-100 %] Physical Exam Constitutional: General: He is not in acute distress. Appearance: Normal appearance. HENT: Head: Normocephalic and atraumatic. Mouth/Throat: Mouth: Mucous membranes are moist. Pharynx: Oropharynx is clear. Eyes: Pupils: Pupils are equal, round, and reactive to light. Neck: Comments: RIJ double CVC Cardiovascular: Rate and Rhythm: Normal rate and regular rhythm. Pulses: Normal pulses. Heart sounds: Normal heart sounds. Comments: L radial A-line present, R AV fistula w/ thrill present Pulmonary: Effort: Pulmonary effort is normal. Breath sounds: Normal breath sounds. Abdominal: General: There is distension. Palpations: Abdomen is soft. Tenderness: There is no abdominal tenderness. Comments: RUQ CHRISTIANO w/ sanguinous output Stoma pink & moist w/ no output in the bag Blenching, concerning for post-op ileus Genitourinary: Comments: Bowers present w/ clear, yellow output Skin: General: Skin is warm and dry. Capillary Refill: Capillary refill takes less than 2 seconds. Neurological: General: No focal deficit present. Mental Status: He is alert and oriented to person, place, and time. Psychiatric: Mood and Affect: Mood normal. IMAGING SUMMARY: (summary of new imaging findings, not a copy of dictation) RUQ US: Cholelithiasis LABS: Results from last 7 days Lab Units 06/17/23 0009 06/16/23 0031 06/15/23 1708 06/14/23 1330 06/14/23 0739 06/13/23 2253 06/13/23 1304 WBC AUTO x10*3/uL 9.2 8.7 9.9 < > 10.0 < > 8.6 HEMOGLOBIN g/dL 6.9* 7.1* 7.3* < > 9.0* < > 10.9* HEMATOCRIT % 22.2* 21.0* 21.8* < > 28.3* < > 32.5* PLATELETS AUTO x10*3/uL 123* 118* 116* < > 143* < > 189 NEUTROS PCT AUTO % -- -- -- -- -- -- 85.5 LYMPHO PCT MAN % -- -- -- -- 2.1 -- -- LYMPHS PCT AUTO % -- -- -- -- -- -- 9.2 MONO PCT MAN % -- -- -- -- 0.5 -- -- MONOS PCT AUTO % -- -- -- -- -- -- 4.5 EOSINO PCT MAN % -- -- -- -- 0.0 -- -- EOS PCT AUTO % -- -- -- -- -- -- 0.3 < > = values in this interval not displayed. Results from last 7 days Lab Units 06/15/23 1130 06/14/23 0739 06/13/23 1313 APTT seconds 31 32 32 INR 1.7* 2.2* 1.4* Results from last 7 days Lab Units 06/17/23 0009 06/16/23 0031 06/15/23 1130 06/14/23 1330 06/14/2339 06/13/23 2253 06/13/23 1304 SODIUM mmol/L 134* 133* 132* < > 136 < > 132* POTASSIUM mmol/L 4.3 4.0 4.1 < > 4.4 < > 5.4* CHLORIDE mmol/L 108* 106 106 < > 108* < > 105 CO2 mmol/L 20* 23 20* < > 19* < > 19* BUN mg/dL 17 22 24* < > 18 < > 17 CREATININE mg/dL 0.50 0.58 0.59 < > 0.65 < > 0.56 CALCIUM mg/dL 10.0 10.1 9.9 < > 9.7 < > 10.8* PROTEIN TOTAL g/dL -- -- -- -- 4.0* 4.0* -- 6.3* BILIRUBIN TOTAL mg/dL -- -- -- -- 0.9 0.9 -- 0.5 ALK PHOS U/L -- -- -- -- 76 76 -- 71 ALT U/L -- -- -- -- 8* 8* -- 7* AST U/L -- -- -- -- 13 13 -- 25 GLUCOSE mg/dL 80 77 140* < > 75 < > 125* < > = values in this interval not displayed. Results from last 7 days Lab Units 06/14/2373806/13/23 1304 BILIRUBIN TOTAL mg/dL 0.9 0.9 0.5 BILIRUBIN DIRECT mg/dL 0.4* -- Results from last 7 days Lab Units 06/16/23 1637 06/16/23 0032 06/15/23 1535 POCT PH, ARTERIAL pH 7.37* 7.38 7.39 POCT PCO2, ARTERIAL mm Hg 30* 33* 33* POCT PO2, ARTERIAL mm Hg 105* 87 100* POCT HCO3 CALCULATED, ARTERIAL mmol/L 17.3* 19.5* 20.0* POCT BASE EXCESS, ARTERIAL mmol/L -7.3* -5.1* -4.6* I have reviewed all medications, laboratory results, and imaging pertinent for today's encounter. Physical Therapy Physical Therapy Evaluation Patient Name: Jagruti Esparza Today's Date: 06/16/2023 Time Calculation Start Time: 1338 Stop Time: 1400 Time Calculation (min): 22 min Assessment/Plan PT Assessment PT Assessment Results: Decreased strength, Decreased endurance, Impaired balance, Decreased mobility, Decreased coordination, Pain Rehab Prognosis: Good Barriers to Discharge: baseline level of function Evaluation/Treatment Tolerance: Patient limited by pain, Patient limited by fatigue Medical Staff Made Aware: Yes End of Session Communication: Bedside nurse End of Session Patient Position: Bed, 3 rail up IP OR SWING BED PT PLAN Inpatient or Swing Bed: Inpatient PT Plan Treatment/Interventions: Bed mobility, Transfer training, Balance training, Neuromuscular re-education, Strengthening, Endurance training, Therapeutic exercise, Range of motion, Therapeutic activity, Home exercise program, Postural re-education, Positioning PT Plan: Skilled PT PT Frequency: 3 times per week PT Discharge Recommendations: Moderate intensity level of continued care (Recommending moderate intensity therapy though pt refusing placement at this time therefore should follow up with low intensity PT services post DC.) PT Recommended Transfer Status: Total assist PT - OK to Discharge: Yes Subjective General Visit Information: General Reason for Referral: transferred to [facility] on 06/12. 06/13: admitted to [facility] from [facility] d/t septic shock, s/p open cholecystectomy on 06/14 Past Medical History Relevant to Rehab: 2. Diverticulitis s/p colostomy 3. Afib on eliquis 4. CHF 5. CAD 6. Aortic strenosis 7. Dahiana's gangrene 8. Perc kerline - s/p perc kerline tube placement, removed on 06/09/23 Family/Caregiver Present: Yes Caregiver Feedback: at bedside, active in care Prior to Session Communication: Bedside nurse Patient Position Received: Bed, 3 rail up General Comment: Pt awake and alert, recently received pain meds. OK to see per RN. Home Living: Home Living Home Living Comments: Pt has been primarily bedbound since prior to previous PT eval on 04/14/23. Has hospital bed at home. Occassionally transfers OOB to rocking chair in which Son will assist pt with EOB sitting and then stand pivot pt from bed to rocking chair with Max A. Recieved a dimitris lift for home use after previous hospital admission however pt states he was unable to use it 2/2 neck discomfort. Prior Level of Function: Prior Function Per Pt/Caregiver Report Prior Function Comments: Pt non-ambulatory. provides assist with feeding, dressing, and sponge bathing. Pt uses urinal to urinate and has ostomy for stool. States he has had some residual BMs at home for which will assist with rolling in bed to clean up pt. Pt reports he was previously receiving PT in the home however ran out of visits. Precautions: Precautions Medical Precautions: Fall precautions, Abdominal precautions Precautions Comment: SBP > 100 off cuff Vital Signs: Vital Signs Heart Rate: 76 Resp: 15 SpO2: 98 % BP: (!) 97/38 (RN aware of decreased BPs/MAPs) MAP (mmHg): 56 Objective Pain: Pain Assessment Pain Assessment: 0-10 Pain Score: 6 Cognition: Cognition Overall Cognitive Status: Within Functional Limits Orientation Level: Oriented X4 General Assessments: Activity Tolerance Endurance: (Tolerates </= 10 mins exercise/activity 2/2 pain) Early Mobility/Exercise Safety Screen: Proceed with mobilization - No exclusion criteria met Sensation Sensation Comment: Baseline neuropathy in bilat feet that pt reports he is still able to feel however feels numb/muted Strength Strength Comments: Performed repeated reps of bilat hip and knee flexion with AAROM (>20 reps) to stimulate ambulation for GI motility as pt has ileus. x10 breaths with IS for pulmonary hygiene due to bedbound status. Education for continued use for HEP. Strength Strength Comments: Performed repeated reps of bilat hip and knee flexion with AAROM (>20 reps) to stimulate ambulation for GI motility as pt has ileus. x10 breaths with IS for pulmonary hygiene due to bedbound status. Education for continued use for HEP. Coordination Movements are Fluid and Coordinated: No Postural Control Postural Control: Impaired Head Control: WFL Posture Comment: Unable to assess this date 2/2 pain/level of dependence - proceeded with in bed activity Functional Assessments: Bed Mobility Bed Mobility: Yes Bed Mobility 1 Bed Mobility Comments 1: Pt not agreeable to EOB sitting this date. Is able to sit up at EOB with assist at baseline. HOB elevated while in bed for pulmonary hygiene Extremity/Trunk Assessments: RLE RLE : (ROM WFL, R knee flexion 3-/5, R knee ext 3-/5, DF/PF 4/5 (tested in partial chair position in bed)) LLE LLE : (ROM WFL, L knee flexion 2+/5, R knee ext 3-/5, DF 2/5, PF 3/5 (tested in partial chair position in bed)) Outcome Measures: [facility] Basic Mobility Turning from your back to your side while in a flat bed without using bedrails: Total Moving from lying on your back to sitting on the side of a flat bed without using bedrails: Total Moving to and from bed to chair (including a wheelchair): Total Standing up from a chair using your arms (e.g. wheelchair or bedside chair): Total To walk in hospital room: Total Climbing 3-5 steps with railing: Total Basic Mobility - Total Score: 6 FSS-ICU Ambulation: Unable to attempt due to weakness Rolling: Total assistance (performs 25% or requires another person) Sitting: Total assistance (performs 25% or requires another person) Transfer [id number]: Total assistance (performs 25% or requires another person) Transfer [id number]: Total assistance (performs 25% or requires another person) Total Score: 4 ICU Mobility Screen Early Mobility/Exercise Safety Screen: Proceed with mobilization - No exclusion criteria met Encounter Problems Encounter Problems (Active) Balance STG - Maintains static sitting balance with upper extremity support with Min A to prepare for OOB transfers Start: 06/16/23 Expected End: 07/07/23 Mobility Bilat LE strength grossly >/= 4/5 Start: 06/16/23 Expected End: 07/07/23 PT Transfers STG - Transfer from bed to chair with Max A x1 using LRAD Start: 06/16/23 Expected End: 07/07/23 STG - Patient will perform bed mobility with Mod A x1 Start: 06/16/23 Expected End: 07/07/23 Education Documentation Home Exercise Program, taught by Madeline Lucas PT at 06/16/2023 3:16 PM. Learner: Patient Readiness: Acceptance Method: Explanation Response: Verbalizes Understanding Mobility Training, taught by Madeline Lucas PT at 06/16/2023 3:16 PM. Learner: Patient Readiness: Acceptance Method: Explanation Response: Verbalizes Understanding Education Comments No comments found. Madeline Lucas PT, DPT [facility] ACUTE CARE SURGERY - PROGRESS NOTE Patient Name: Jagruti Esparza Admit Date: [id number] : 1955 AGE: 67 y.o. GENDER: male TODAY'S ASSESSMENT AND PLAN OF CARE: 67 y/o M with a PMH of HTN, CAD, HFpEF (50-55%), paroxysmal Afib/flutter, ESRD s/p kidney txp (2012), hiatal hernia, GERD, complicated diverticulitis with pericolonic abscess s/p lap sigmoid resection with end colostomy, Dahiana's gangrene s/p multiple I&Ds, and acalculous cholecystitis s/p percutaneous cholecystostomy tube placement on 02/25/23 (removed 06/09/23) who was admitted from OSH for evaluation of biliary colic. On admission, patient developed fever and tachycardia. Patient was started on IV antibiotics and IV fluids. Patient remains hypotensive, febrile, and tachycardic today. At this time, differential diagnosis for patient's sepsis includes choledocholithiasis vs bile leak vs cholangitis. OR 4/2: Open cholecystectomy Plan: - Continue IV Dilaudid as needed for pain and scheduled IV Tylenol - Consider [employer] if pain is not adequately controlled - Encourage IS, Bronchial hygiene, OOB with PT/OT - Continue to hold home Eliquis for now - Keep NPO - Monitor colostomy for output- enterostomal therapy consult to assist with ostomy care - Monitor surgical drain output - Remove bowers, trial void - Bacteremia- growing E.Coli- Continue Unasyn - Gram positive Bcx - Continue Vancomycin - Trend H/H. Low Threshold to transfuse if Hgb <7 - DVT Proph: SCDs, Lovenox Patient discussed with Attending Dr. Nicki Singh [facility] Acute Care Surgery Pager [phone] Patient discussed with attending, Dr. Olson. Rosaline Rivas MD General Surgery Resident [facility] [phone] CHIEF COMPLAINT / EVENTS LAST 24HRS / HPI: No acute events overnight. MEDICAL HISTORY / ROS: Admission history and ROS reviewed. Pertinent changes as follows: none PHYSICAL EXAM: Heart Rate: [71-85] Temp: [35.7 C (96.3 F)-36.4 C (97.5 F)] Resp: [12-27] BP: (85-124)/(37-45) SpO2: [96 %-100 %] on room air Physical Exam Physical Exam General: awake, alert, no acute distress HEENT: atraumatic, normocephalic CV: RR on monitor Pulm: non-labored breathing on room air, GI: abdomen soft, non-distended, appropriately tender to palpation. No rebound tenderness or involuntary guarding. Subcostal incision with original dressing in place. CHRISTIANO with dark output- non bilious. Colostomy pink with no stool or flatus in pouch : bowers in place with dark yellow urine Skin: warm, dry Extremities: DARDEN Psych: appropriate mood and affect IMAGING SUMMARY: (summary of new imaging findings, not a copy of dictation) none LABS: Results from last 7 days Lab Units 06/16/23 0031 06/15/23 1708 06/15/23 1130 06/14/23 1330 06/14/23 0739 06/13/23225206/13/23 1304 WBC AUTO x10*3/uL 8.7 9.9 9.2 < > 10.0 < > 8.6 HEMOGLOBIN g/dL 7.1* 7.3* 7.8* < > 9.0* < > 10.9* HEMATOCRIT % 21.0* 21.8* 24.0* < > 28.3* < > 32.5* PLATELETS AUTO x10*3/uL 118* 116* 117* < > 143* < > 189 NEUTROS PCT AUTO % -- -- -- -- -- -- 85.5 LYMPHO PCT MAN % -- -- -- -- 2.1 -- -- LYMPHS PCT AUTO % -- -- -- -- -- -- 9.2 MONO PCT MAN % -- -- -- -- 0.5 -- -- MONOS PCT AUTO % -- -- -- -- -- -- 4.5 EOSINO PCT MAN % -- -- -- -- 0.0 -- -- EOS PCT AUTO % -- -- -- -- -- -- 0.3 < > = values in this interval not displayed. Results from last 7 days Lab Units 06/15/23 1130 06/14/2339 06/13/23 1313 APTT seconds 31 32 32 INR 1.7* 2.2* 1.4* Results from last 7 days Lab Units 06/16/23 0031 06/15/23 1130 06/15/23 0010 06/14/23 1330 06/14/23 0739 06/13/23225206/13/23 1304 SODIUM mmol/L 133* 132* 131* < > 136 < > 132* POTASSIUM mmol/L 4.0 4.1 4.4 < > 4.4 < > 5.4* CHLORIDE mmol/L 106 106 105 < > 108* < > 105 CO2 mmol/L 23 20* 21 < > 19* < > 19* BUN mg/dL 22 24* 22 < > 18 < > 17 CREATININE mg/dL 0.58 0.59 0.66 < > 0.65 < > 0.56 CALCIUM mg/dL 10.1 9.9 10.3 < > 9.7 < > 10.8* PROTEIN TOTAL g/dL -- -- -- -- 4.0* 4.0* -- 6.3* BILIRUBIN TOTAL mg/dL -- -- -- -- 0.9 0.9 -- 0.5 ALK PHOS U/L -- -- -- -- 76 76 -- 71 ALT U/L -- -- -- -- 8* 8* -- 7* AST U/L -- -- -- -- 13 13 -- 25 GLUCOSE mg/dL 77 140* 114* < > 75 < > 125* < > = values in this interval not displayed. Results from last 7 days Lab Units 06/14/23 0739 06/13/23 1304 BILIRUBIN TOTAL mg/dL 0.9 0.9 0.5 BILIRUBIN DIRECT mg/dL 0.4* -- Results from last 7 days Lab Units 06/16/23 0032 06/15/23 1535 06/15/23 1129 POCT PH, ARTERIAL pH 7.38 7.39 7.35* POCT PCO2, ARTERIAL mm Hg 33* 33* 32* POCT PO2, ARTERIAL mm Hg 87 100* 78* POCT HCO3 CALCULATED, ARTERIAL mmol/L 19.5* 20.0* 17.7* POCT BASE EXCESS, ARTERIAL mmol/L -5.1* -4.6* -7.2* I have reviewed all medications, laboratory results, and imaging pertinent for today's encounter. [facility] TRAUMA ICU - PROGRESS NOTE Patient Name: Jagruti Esparza Admit Date: [id number] : 1955 AGE: 67 y.o. GENDER: male 67 y/o M w/ PMH of acalculous cholecystitis s/p perc kerline tube placement, removed on 06/09/23, transferred to [facility] on 06/12. 06/13: admitted to [facility]ICU from [facility] d/t septic shock. LOC (yes/no?): No Anticoagulant / Anti-platelet Rx? (for what dx?): Eliquis last dose 06/12 Referring Facility Name (N/A for scene EMR run): [facility] OTHER MEDICAL PROBLEMS: ESRD s/p renal transplant Diverticulitis s/p colostomy Afib on eliquis CHF CAD Aortic strenosis Dahiana's gangrene Perc kerline INCIDENTAL FINDINGS: None PROCEDURES: 06/14: Open Cholecystectomy TODAY'S ASSESSMENT AND PLAN OF CARE: Jagruti Esparza is a 67 y.o. male in the ICU due to: Septic shock requiring close hemodynamic monitoring and pressor support. NEURO/PAIN/SEDATION: - GCS 15 - Discontinue PO Tylenol & Oxy d/t strict NPO 2/2 ileus - Start 0.2 (moderate) 0.4 (severe) IV Dilaudid - Start Lido patches x2, RUQ, R lateral chest - Start Scheduled IV tylenol q6h RESPIRATORY: - Intubated in the OR for open kerline & extubated post procedure (06/14) - Currently on RA, maintain O2 sat >95% - Multimodal pain management - Maintain O2 sat >92% - O2 as needed - IS - Bronchial hygiene CARDIOVASC: Septic Shock - Off Vasopressors - SBP goal >100 mmhg, of cuff pressure - Continue home Atorvastatin - Holding home Eliquis & Cardizem - Discontinue A-line GI: Diverticulitis s/p colostomy Post-op ileus Hx of GERD - Decreased ostomy output accompanied by abd distention & eructation - Maintain NPO in the setting of new ileus - Monitor ostomy output - Hold Miralax - PO Protonix 20 mg BID -> 40 mg IV daily : ESRD s/p renal transplant - 06/15: Produced 0.4 ml/kg/hr urine/24 hr. Monitor urine output closely - Monitor kidney function - Discontinue bowers - Hold ppx bactrim & flomac - Switch PO tacro -> SL - PO Prednisone -> IV methylpred - Holding Imuran in the setting of sepsis - Strict I/Os FEN: - IV maintenance LR 75 ml/hr - +2.9 L 06/15. Urine output 852 ml in 24 hr - Received 2 pRBCS, 2 ffp in the OR 06/14 - 1L blood loss during procedure - Monitor electrolytes - Replete electrolytes as needed HEMATOLOGIC: - H/H stable hgb 8.4 -> 7.8 -> 7.3 ->7.3 - Daily CBC - Normal post-op TEG ENDOCRINE: - No hx of DM - Blood glucose monitoring q6h - SSI MUSCULOSKELETAL/SKIN: - Frequent turns - Skin care per unit protocol - PT/OT - Hold home Ropinirole INFECTIOUS DISEASE: - Blood cx from 06/12 growing E.coli. Meropenem -> Unasyn - Continue Vanco given gram positive cocci on Bcx from 06/12 - follow up repeat Bcx x2 - Afebrile, WBC 14.2 ->13.6 ->8.7 - Monitor temp - Daily cbc GI PROPHYLAXIS: Home PPI DVT PROPHYLAXIS: Lovenox DISPOSITION: Remain in ICU pending stability CHIEF COMPLAINT / OVERNIGHT EVENTS / HPI: 67 y/o M w/ PMH of acalculous cholecystitis s/p perc kerline tube placement, removed on 06/09/23, transferred to [facility] on 06/12. 06/13: admitted to [facility]ICU from [facility] d/t septic shock. 06/14: Open kerline Overnight, no pressor requirement, BP stable, Hgb stable MEDICAL HISTORY / ROS: Admission history and ROS reviewed. Pertinent changes as follows: RUQ pain ESRD s/o renal transplant Diverticulitis s/p end colectomy PHYSICAL EXAM: Heart Rate: [68-85] Temp: [35.7 C (96.3 F)-36.4 C (97.5 F)] Resp: [12-27] BP: (85-124)/(37-45) SpO2: [96 %-100 %] Physical Exam Constitutional: General: He is not in acute distress. Appearance: Normal appearance. HENT: Head: Normocephalic and atraumatic. Mouth/Throat: Mouth: Mucous membranes are moist. Pharynx: Oropharynx is clear. Eyes: Pupils: Pupils are equal, round, and reactive to light. Neck: Comments: RIJ double CVC Cardiovascular: Rate and Rhythm: Normal rate and regular rhythm. Pulses: Normal pulses. Heart sounds: Normal heart sounds. Comments: L radial A-line present, R AV fistula w/ thrill present Pulmonary: Effort: Pulmonary effort is normal. Breath sounds: Normal breath sounds. Abdominal: General: There is distension. Palpations: Abdomen is soft. Tenderness: There is no abdominal tenderness. Comments: RUQ CHRISTIANO w/ sanguinous output Stoma pink & moist w/ no output in the bag Blenching, concerning for post-op ileus Genitourinary: Comments: Bowers present w/ clear, yellow output Skin: General: Skin is warm and dry. Capillary Refill: Capillary refill takes less than 2 seconds. Neurological: General: No focal deficit present. Mental Status: He is alert and oriented to person, place, and time. Psychiatric: Mood and Affect: Mood normal. IMAGING SUMMARY: (summary of new imaging findings, not a copy of dictation) RUQ US: Cholelithiasis LABS: Results from last 7 days Lab Units 06/16/23 0031 06/15/23 1708 06/15/23 1130 06/14/23 1330 06/14/23 0739 06/13/23 2253 06/13/23 1304 WBC AUTO x10*3/uL 8.7 9.9 9.2 < > 10.0 < > 8.6 HEMOGLOBIN g/dL 7.1* 7.3* 7.8* < > 9.0* < > 10.9* HEMATOCRIT % 21.0* 21.8* 24.0* < > 28.3* < > 32.5* PLATELETS AUTO x10*3/uL 118* 116* 117* < > 143* < > 189 NEUTROS PCT AUTO % -- -- -- -- -- -- 85.5 LYMPHO PCT MAN % -- -- -- -- 2.1 -- -- LYMPHS PCT AUTO % -- -- -- -- -- -- 9.2 MONO PCT MAN % -- -- -- -- 0.5 -- -- MONOS PCT AUTO % -- -- -- -- -- -- 4.5 EOSINO PCT MAN % -- -- -- -- 0.0 -- -- EOS PCT AUTO % -- -- -- -- -- -- 0.3 < > = values in this interval not displayed. Results from last 7 days Lab Units 06/15/23 1130 06/14/23 0739 06/13/23 1313 APTT seconds 31 32 32 INR 1.7* 2.2* 1.4* Results from last 7 days Lab Units 06/16/23 0031 06/15/23 1130 06/15/23 0010 06/14/23 1330 06/14/23 0739 06/13/23 2253 06/13/23 1304 SODIUM mmol/L 133* 132* 131* < > 136 < > 132* POTASSIUM mmol/L 4.0 4.1 4.4 < > 4.4 < > 5.4* CHLORIDE mmol/L 106 106 105 < > 108* < > 105 CO2 mmol/L 23 20* 21 < > 19* < > 19* BUN mg/dL 22 24* 22 < > 18 < > 17 CREATININE mg/dL 0.58 0.59 0.66 < > 0.65 < > 0.56 CALCIUM mg/dL 10.1 9.9 10.3 < > 9.7 < > 10.8* PROTEIN TOTAL g/dL -- -- -- -- 4.0* 4.0* -- 6.3* BILIRUBIN TOTAL mg/dL -- -- -- -- 0.9 0.9 -- 0.5 ALK PHOS U/L -- -- -- -- 76 76 -- 71 ALT U/L -- -- -- -- 8* 8* -- 7* AST U/L -- -- -- -- 13 13 -- 25 GLUCOSE mg/dL 77 140* 114* < > 75 < > 125* < > = values in this interval not displayed. Results from last 7 days Lab Units 06/14/23 0739 06/13/23 1304 BILIRUBIN TOTAL mg/dL 0.9 0.9 0.5 BILIRUBIN DIRECT mg/dL 0.4* -- Results from last 7 days Lab Units 06/16/23 0032 06/15/23 1535 06/15/23 1129 POCT PH, ARTERIAL pH 7.38 7.39 7.35* POCT PCO2, ARTERIAL mm Hg 33* 33* 32* POCT PO2, ARTERIAL mm Hg 87 100* 78* POCT HCO3 CALCULATED, ARTERIAL mmol/L 19.5* 20.0* 17.7* POCT BASE EXCESS, ARTERIAL mmol/L -5.1* -4.6* -7.2* I have reviewed all medications, laboratory results, and imaging pertinent for today's encounter. I have independently reviewed pertinent laboratory values, available culture results, radiologic studies, vital signs and nurses notes. I have independently examined and assessed the patient. I have reviewed and edited the [employer]'s documentation as above. In the case of any discrepancies, my documentation supersedes that of the [employer]'s documentation. Pt seen and discussed with Dr. Gonzalez. Dhruv Calvert PA-C Trauma, Critical Care, and Acute Care Surgery Ext. [phone] Vancomycin Dosing by Pharmacy- FOLLOW UP Jagruti Esparza is a 67 y.o. year old male who Pharmacy has been consulted for vancomycin dosing for other abdominal infection . Based on the patient's indication and renal status this patient is being dosed based on a goal AUC of 400-600. Renal function is currently stable. Current vancomycin dose: 1250 mg given every 12 hours Estimated vancomycin AUC on current dose: 764 mg/L.hr Visit Vitals BP (!) 85/40 Pulse 71 Temp 35.7 C (96.3 F) (Temporal) Resp 14 Lab Results Component Value Date CREATININE 0.59 06/15/2023 CREATININE 0.66 06/15/2023 CREATININE 0.68 06/14/2023 CREATININE 0.65 06/14/2023 I/O last 3 completed shifts: In: 3366 (40.5 mL/kg) [I.V.:2066 (24.9 mL/kg); IV Piggyback:1300] Out: 350 (4.2 mL/kg) [Urine:350 (0.1 mL/kg/hr)] Weight: 83.1 kg Lab Results Component Value Date PATIENTTEMP 37.0 06/15/2023 PATIENTTEMP 37.0 06/15/2023 PATIENTTEMP 37.0 06/15/2023 Assessment/Plan Above goal AUC. Orders placed for new vancomcyin regimen of 750 every 12 hours to begin at 2100. This dosing regimen is predicted by [employer] to result in the following pharmacokinetic parameters: Regimen: 750 mg IV every 12 hours. Start time: 14:50 on 06/15/2023 Exposure target: AUC24 (range)400-600 mg/L.hr AUC24,ss: 463 mg/L.hr Probability of AUC24 > 400: 91 % Ctrough,ss: 13.7 mg/L Probability of Ctrough,ss > 20: 1 % Probability of nephrotoxicity (Lodise BRYSON 2009): 9 % The next level will be obtained on 4/4 am labs. May be obtained sooner if clinically indicated. Will continue to monitor renal function daily while on vancomycin and order serum creatinine at least every 48 hours if not already ordered. Follow for continued vancomycin needs, clinical response, and signs/symptoms of toxicity. Carmela An RPh [facility] TRAUMA ICU - PROGRESS NOTE Patient Name: Jagruti Esparza Admit Date: [id number] : 1955 AGE: 67 y.o. GENDER: male 67 y/o M w/ PMH of acalculous cholecystitis s/p perc kerline tube placement, removed on 06/09/23, transferred to [facility] [place] [facility] on 06/12. 06/13: admitted to [facility] from [facility] d/t septic shock. LOC (yes/no?): No Anticoagulant / Anti-platelet Rx? (for what dx?): Eliquis last dose 06/12 Referring Facility Name (N/A for scene EMR run): [facility] OTHER MEDICAL PROBLEMS: ESRD s/p renal transplant Diverticulitis s/p colostomy Afib on eliquis CHF CAD Aortic strenosis Dahiana's gangrene Perc kerline INCIDENTAL FINDINGS: None PROCEDURES: 06/14: Open Cholecystectomy TODAY'S ASSESSMENT AND PLAN OF CARE: Jagruti Esparza is a 67 y.o. male in the ICU due to: Septic shock requiring close hemodynamic monitoring and pressor support. NEURO/PAIN/SEDATION: - GCS 15 - Continue schedule Tylenol - Continue PRN Oxy RESPIRATORY: - Intubated in the OR for open kerline, now extubated - Currently on RA - Maintain O2 sat >92% - O2 as needed - IS - Bronchial hygiene CARDIOVASC: Septic Shock - On 0.07 Vaso & 0.03 Vaso --> weaning to off - Wean pressor to keep SBP >100 mmhg - Please titrate pressor off A-line GI: Diverticulitis s/p colostomy - Monitor ostomy output - Advance diet to Renal once 4 hr post extubation - Continue Miralax : ESRD s/p renal transplant - Maintain bowers - Continue Tacrom Flomax, Prednisone, Bactrim - Strict I/Os FEN: - IV maintenance LR 75 ml/hr - +2.8L 06/14. Urine output 650 ml in 24 hr - Received 2 pRBCS, 2 ffp in the OR - 1L blood loss during procedure - Monitor electrolytes - Replete electrolytes as needed HEMATOLOGIC: - H/H stable 8.427.2 - Daily CBC - follow up TEG --> normal ENDOCRINE: - No hx of DM - Blood glucose monitoring q6h - SSI MUSCULOSKELETAL/SKIN: - Frequent turns - Skin care per unit protocol - PT/OT when medically appropriate INFECTIOUS DISEASE: - Continue Vanc/Barbie ( -06/18) - Afebrile, WBC 14.2 ->13.6 - Monitor temp - Daily cbc GI PROPHYLAXIS: Not indicated DVT PROPHYLAXIS: Lovenox DISPOSITION: Remain in ICU pending stability CHIEF COMPLAINT / OVERNIGHT EVENTS / HPI: 67 y/o M w/ PMH of acalculous cholecystitis s/p perc kerline tube placement, removed on 06/09/23, transferred to [facility] [place] [facility] on 06/12. 06/13: admitted to [facility] from [facility] d/t septic shock. Overnight increased pressor requirement Levo 0.07, vaso 0.03 06/14: Open kerline MEDICAL HISTORY / ROS: Admission history and ROS reviewed. Pertinent changes as follows: RUQ pain ESRD s/o renal transplant Diverticulitis s/p end colectomy PHYSICAL EXAM: Heart Rate: [57-90] Temp: [35.7 C (96.3 F)-36.5 C (97.7 F)] Resp: [15-27] BP: (105-142)/(36-95) SpO2: [75 %-100 %] Physical Exam Constitutional: General: He is not in acute distress. Appearance: Normal appearance. HENT: Head: Normocephalic and atraumatic. Mouth/Throat: Mouth: Mucous membranes are moist. Pharynx: Oropharynx is clear. Eyes: Pupils: Pupils are equal, round, and reactive to light. Neck: Comments: RIJ double CVC Cardiovascular: Rate and Rhythm: Normal rate and regular rhythm. Pulses: Normal pulses. Heart sounds: Normal heart sounds. Comments: L radial A-line present Pulmonary: Effort: Pulmonary effort is normal. Breath sounds: Normal breath sounds. Abdominal: General: Abdomen is flat. There is no distension. Comments: RUQ CHRISTIANO w/ sanguinous output Stoma pink & moist w/ no output in the bag Genitourinary: Comments: Bowers present w/ yellow output Skin: General: Skin is warm and dry. Capillary Refill: Capillary refill takes less than 2 seconds. Neurological: General: No focal deficit present. Mental Status: He is alert and oriented to person, place, and time. Psychiatric: Mood and Affect: Mood normal. IMAGING SUMMARY: (summary of new imaging findings, not a copy of dictation) RUQ US: Cholelithiasis LABS: Results from last 7 days Lab Units 06/15/23 1130 06/15/23 0010 06/14/23 1401 06/14/23 1330 06/14/23 0739 06/13/23 2253 06/13/23 1304 WBC AUTO x10*3/uL 9.2 13.6* 14.2* < > 10.0 < > 8.6 HEMOGLOBIN g/dL 7.8* 8.4* 8.5* < > 9.0* < > 10.9* HEMATOCRIT % 24.0* 27.2* 27.1* < > 28.3* < > 32.5* PLATELETS AUTO x10*3/uL 117* 123* 140* < > 143* < > 189 NEUTROS PCT AUTO % -- -- -- -- -- -- 85.5 LYMPHO PCT MAN % -- -- -- -- 2.1 -- -- LYMPHS PCT AUTO % -- -- -- -- -- -- 9.2 MONO PCT MAN % -- -- -- -- 0.5 -- -- MONOS PCT AUTO % -- -- -- -- -- -- 4.5 EOSINO PCT MAN % -- -- -- -- 0.0 -- -- EOS PCT AUTO % -- -- -- -- -- -- 0.3 < > = values in this interval not displayed. Results from last 7 days Lab Units 06/15/23 1130 06/14/23 0739 06/13/23 1313 APTT seconds 31 32 32 INR 1.7* 2.2* 1.4* Results from last 7 days Lab Units 06/15/23 1130 06/15/23 0010 06/14/23 1330 06/14/23 0739 06/13/23 2253 06/13/23 1304 SODIUM mmol/L 132* 131* 132* 136 < > 132* POTASSIUM mmol/L 4.1 4.4 4.3 4.4 < > 5.4* CHLORIDE mmol/L 106 105 105 108* < > 105 CO2 mmol/L 20* 21 22 19* < > 19* BUN mg/dL 24* 22 21 18 < > 17 CREATININE mg/dL 0.59 0.66 0.68 0.65 < > 0.56 CALCIUM mg/dL 9.9 10.3 10.1 9.7 < > 10.8* PROTEIN TOTAL g/dL -- -- -- 4.0* 4.0* -- 6.3* BILIRUBIN TOTAL mg/dL -- -- -- 0.9 0.9 -- 0.5 ALK PHOS U/L -- -- -- 76 76 -- 71 ALT U/L -- -- -- 8* 8* -- 7* AST U/L -- -- -- 13 13 -- 25 GLUCOSE mg/dL 140* 114* 96 75 < > 125* < > = values in this interval not displayed. Results from last 7 days Lab Units 06/14/23 0739 06/13/23 1304 BILIRUBIN TOTAL mg/dL 0.9 0.9 0.5 BILIRUBIN DIRECT mg/dL 0.4* -- Results from last 7 days Lab Units 06/15/23 1129 06/15/23 1026 06/15/23 0916 POCT PH, ARTERIAL pH 7.35* 7.30* 7.37* POCT PCO2, ARTERIAL mm Hg 32* 42 39 POCT PO2, ARTERIAL mm Hg 78* 160* 186* POCT HCO3 CALCULATED, ARTERIAL mmol/L 17.7* 20.7* 22.5 POCT BASE EXCESS, ARTERIAL mmol/L -7.2* -5.4* -2.6* I have reviewed all medications, laboratory results, and imaging pertinent for today's encounter. I have independently reviewed pertinent laboratory values, available culture results, radiologic studies, vital signs and nurses notes. I have independently examined and assessed the patient. I have reviewed and edited the [employer]'s documentation as above. In the case of any discrepancies, my documentation supersedes that of the [employer]'s documentation. Pt seen and discussed with Dr. Gonzalez. Dhruv Calvert PA-C Trauma, Critical Care, and Acute Care Surgery Ext. [phone] [facility] TRAUMA ICU - PROGRESS NOTE Patient Name: Jagruti Esparza Admit Date: [id number] : 1955 AGE: 67 y.o. GENDER: male TODAY'S ASSESSMENT AND PLAN OF CARE: Jagruti Esparza is a 67 y.o. male in the ICU due to: septic shock 67 y/o M with a PMH of HTN, CAD, HFpEF (50-55%), paroxysmal Afib/flutter, ESRD s/p kidney txp (2012), hiatal hernia, GERD, complicated diverticulitis with pericolonic abscess s/p lap sigmoid resection with end colostomy, Dahiana's gangrene s/p multiple I&Ds, and acalculous cholecystitis s/p percutaneous cholecystostomy tube placement on 02/25/23 (removed 06/09/23) who was admitted from OSH for evaluation of biliary colic. Patient was transferred to ICU this morning for tachycardia and hypotension presumed to be due septic shock. NEURO/PAIN/SEDATION: - Pain: Scheduled Tylenol, PRN oxy - Continue home ropinorole RESPIRATORY: - IS q 1 hr CARDIOVASC: Hx HTN, CAD, HFpEF, AFIB/flutter, troponemia - CHADVASC 3 - holding home Eliquis - holding home diltiazem - Continue asa, statin - trend troponin q8 - Echo for pre-op risk stratification - Levo to maintain MAP > 65 GI: c/f cholangitis NPO - Follow up RUQ US - ACS planning for OR tomorrow for open cholecystectomy : s/p kidney transplant - Has not voided since ICU transfer, will obtain bladder scan - Continue home tacro, flomax, holding home prednisone FEN: RFP as needed, replete electrolytes PRN - LR @ 75 ml/hr HEMATOLOGIC: Presumed septic shock - Trend CBC ENDOCRINE: No active issues - SSI MUSCULOSKELETAL/SKIN: No active issues INFECTIOUS DISEASE: Septic shock 2/2 cholecystitis - Continue Vanc/ Meropenem GI PROPHYLAXIS: Not indicated DVT PROPHYLAXIS: Lovenox DISPOSITION: TICU Discussed with attending, Dr. Gonzalez. Dodie Lau MD General Surgery PGY-1 CHIEF COMPLAINT / OVERNIGHT EVENTS / HPI: Patient was transferred to ICU this morning for tachycardia and hypotension presumed to be due septic shock. Now on Levo and Vaso for pressure support MEDICAL HISTORY / ROS: Admission history and ROS reviewed. Pertinent changes as follows: HTN, CAD, HFpEF (50-55%), paroxysmal Afib/flutter, ESRD s/p kidney txp (2012), hiatal hernia, GERD, complicated diverticulitis with pericolonic abscess s/p lap sigmoid resection with end colostomy, Dahiana's gangrene s/p multiple I&Ds, and acalculous cholecystitis s/p percutaneous cholecystostomy tube placement on 02/25/23, removed 06/08 PHYSICAL EXAM: Heart Rate: [86-162] Temp: [36.3 C (97.4 F)-39.3 C (102.7 F)] Resp: [15-26] BP: (80-170)/(37-109) SpO2: [85 %-100 %] General: Well appearing, alert Skin: Warm, dry HEENT: Neck supple, atraumatic Cardiac: Regular rate, hypotensive, on 0.07 Levo, 0.03 Vaso Pulm: Symmetric chest expansion, unlabored breathing on room air Abdomen: Soft, non-distended. Focal RUQ tenderness Extremities: No cyanosis, no peripheral edema. RUE aneurysmal AVF Neuro: Alert and oriented x 3, moves all extremities spontaneously Psych: Appropriate mood and affect IMAGING SUMMARY: Pending RUQ US, Echo LABS: Results from last 7 days Lab Units 06/14/23 1401 06/14/2373806/13/23225206/13/23 1304 WBC AUTO x10*3/uL 14.2* 10.0 11.8* 8.6 HEMOGLOBIN g/dL 8.5* 9.0* 10.5* 10.9* HEMATOCRIT % 27.1* 28.3* 32.2* 32.5* PLATELETS AUTO x10*3/uL 140* 143* 216 189 NEUTROS PCT AUTO % -- -- -- 85.5 LYMPHO PCT MAN % -- 2.1 -- -- LYMPHS PCT AUTO % -- -- -- 9.2 MONO PCT MAN % -- 0.5 -- -- MONOS PCT AUTO % -- -- -- 4.5 EOSINO PCT MAN % -- 0.0 -- -- EOS PCT AUTO % -- -- -- 0.3 Results from last 7 days Lab Units 06/14/2373806/13/23 1313 APTT seconds 32 32 INR 2.2* 1.4* Results from last 7 days Lab Units 06/14/2373806/13/23225206/13/23 1304 SODIUM mmol/L 136 132* 132* POTASSIUM mmol/L 4.4 5.1 5.4* CHLORIDE mmol/L 108* 105 105 CO2 mmol/L 19* 18* 19* BUN mg/dL 18 19 17 CREATININE mg/dL 0.65 0.65 0.56 CALCIUM mg/dL 9.7 10.8* 10.8* PROTEIN TOTAL g/dL 4.0* 4.0* -- 6.3* BILIRUBIN TOTAL mg/dL 0.9 0.9 -- 0.5 ALK PHOS U/L 76 76 -- 71 ALT U/L 8* 8* -- 7* AST U/L 13 13 -- 25 GLUCOSE mg/dL 75 111* 125* Results from last 7 days Lab Units 06/14/23 0739 06/13/23 1304 BILIRUBIN TOTAL mg/dL 0.9 0.9 0.5 BILIRUBIN DIRECT mg/dL 0.4* -- Results from last 7 days Lab Units 06/14/23 1358 06/14/23 1330 POCT PH, ARTERIAL pH 7.39 7.45* POCT PCO2, ARTERIAL mm Hg 34* 31* POCT PO2, ARTERIAL mm Hg 76* 59* POCT HCO3 CALCULATED, ARTERIAL mmol/L 20.6* 21.5* POCT BASE EXCESS, ARTERIAL mmol/L -3.9* -2.3* I have reviewed all medications, laboratory results, and imaging pertinent for today's encounter. Associated attestation - Maxwell Gonzalez MD - 06/14/2023 4:30 PM EDT I saw and evaluated the patient. I personally obtained the florez and critical portions of the history and physical exam or was physically present for florez and critical portions performed by the resident/fellow. I reviewed the resident/fellow's documentation and discussed the patient with the resident/fellow. I agree with the resident/fellow's medical decision making as documented in the note. I personally provided 36 minutes of critical care time independent of any procedures. ACS planning OR tomorrow for open kerline. 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 Risk/benefit thought to favor surgery. Resusc today and prepare him for OR tomorrow. Maxwell Gonzalez MD [facility] ACUTE CARE SURGERY - PROGRESS NOTE Patient Name: Jagruti Esparza Admit Date: [id number] : 1955 AGE: 67 y.o. GENDER: male TODAY'S ASSESSMENT AND PLAN OF CARE: 67 y/o M with a PMH of HTN, CAD, HFpEF (50-55%), paroxysmal Afib/flutter, ESRD s/p kidney txp (2012), hiatal hernia, GERD, complicated diverticulitis with pericolonic abscess s/p lap sigmoid resection with end colostomy, Dahiana's gangrene s/p multiple I&Ds, and acalculous cholecystitis s/p percutaneous cholecystostomy tube placement on 02/25/23 (removed 06/09/23) who was admitted from OSH for evaluation of biliary colic. On admission, patient developed fever and tachycardia. Patient was started on IV antibiotics and IV fluids. Patient remains hypotensive, febrile, and tachycardic today. At this time, differential diagnosis for patient's sepsis includes choledocholithiasis vs bile leak vs cholangitis. Hypotension managed with crystalloid resuscitation totaling 4L since admission. Transient responder. Will plan for transfer to ICU for invasive monitoring to assist with guidance of resuscitation. Plan: - Transfer to TICU for close monitoring - continue IV antibiotics - blood cx pending - follow up CBC, RFP, LFTs, troponins - Plan for open cholecystectomy for definitive management on 06/14. Patient discussed with attending, Dr. Olson. Rosaline Rivas MD General Surgery Resident ACS [id number] CHIEF COMPLAINT / EVENTS LAST 24HRS / HPI: Rapid response called overnight for tachycardia and fever - please see overnight resident's significant event note for details. Rapid response called again this morning for hypotension, tachycardia, and fever. On exam, patient did not appear to be in distress. However, BP 94/53, HR 110, T 39 degrees. Patient denied chest pain, shortness of breath, chills, or abdominal pain. He was asymptomatic and was receiving his 4th bolus of LR since arrival to the ED. A new set of labs was drawn by nursing. MEDICAL HISTORY / ROS: Admission history and ROS reviewed. Pertinent changes as follows: none PHYSICAL EXAM: Heart Rate: [70-162] Temp: [36.3 C (97.4 F)-39.3 C (102.7 F)] Resp: [16-19] BP: (81-170)/(43-109) Height: [175.3 cm (5' 9 )] Weight: [75.8 kg (167 lb)] SpO2: [85 %-100 %] on room air Physical Exam Physical Exam General: awake, alert, no acute distress HEENT: atraumatic, normocephalic CV: sinus tachycardia, regular rhythm Pulm: non-labored breathing on room air, spO2 >95% GI: abdomen soft, non-distended, non-tender to palpation. No rebound tenderness or involuntary guarding. Colostomy pink, viable, with presence of gas in stoma bag. : no suprapubic tenderness Skin: warm, dry Extremities: DARDEN Psych: appropriate mood and affect IMAGING SUMMARY: (summary of new imaging findings, not a copy of dictation) none LABS: Results from last 7 days Lab Units 06/14/23 0706/13/23225206/13/23 1304 WBC AUTO x10*3/uL 10.0 11.8* 8.6 HEMOGLOBIN g/dL 9.0* 10.5* 10.9* HEMATOCRIT % 28.3* 32.2* 32.5* PLATELETS AUTO x10*3/uL 143* 216 189 NEUTROS PCT AUTO % -- -- 85.5 LYMPHS PCT AUTO % -- -- 9.2 MONOS PCT AUTO % -- -- 4.5 EOS PCT AUTO % -- -- 0.3 Results from last 7 days Lab Units 06/14/23 0706/13/23 1313 APTT seconds 32 32 INR 2.2* 1.4* Results from last 7 days Lab Units 06/14/23 0739 06/13/233 06/13/23 1304 SODIUM mmol/L 136 132* 132* POTASSIUM mmol/L 4.4 5.1 5.4* CHLORIDE mmol/L 108* 105 105 CO2 mmol/L 19* 18* 19* BUN mg/dL 18 19 17 CREATININE mg/dL 0.65 0.65 0.56 CALCIUM mg/dL 9.7 10.8* 10.8* PROTEIN TOTAL g/dL 4.0* 4.0* -- 6.3* BILIRUBIN TOTAL mg/dL 0.9 0.9 -- 0.5 ALK PHOS U/L 76 76 -- 71 ALT U/L 8* 8* -- 7* AST U/L 13 13 -- 25 GLUCOSE mg/dL 75 111* 125* Results from last 7 days Lab Units 06/14/23 0739 06/13/23 1304 BILIRUBIN TOTAL mg/dL 0.9 0.9 0.5 BILIRUBIN DIRECT mg/dL 0.4* -- I have reviewed all medications, laboratory results, and imaging pertinent for today's encounter. Vancomycin Dosing by Pharmacy- Cessation of Therapy Consult to pharmacy for vancomycin dosing has been discontinued by the prescriber, pharmacy will sign off at this time. Please call pharmacy if there are further questions or re-enter a consult if vancomycin is resumed. Shyann Russell PharmD Pharmacy Medication History Review Jagruti Esparza is a 67 y.o. male admitted for Cholecystitis. Pharmacy reviewed the patient's phkeb-uz-rqhetamho medications and allergies for accuracy. The list below reflects the updated DATA SYSTEMS MANAGER list. Comments regarding how patient may be taking medications differently can be found in the Admit Orders Activity Prior to Admission Medications Prescriptions Last Dose Informant DILT-XR 180 mg 24 hr capsule 06/13/2023 Self Sig: Take 1 capsule (180 mg) by mouth once daily. apixaban (Eliquis) 5 mg tablet 06/13/2023 Self Sig: Take 1 tablet (5 mg) by mouth every 12 hours. aspirin 81 mg EC tablet 06/13/2023 Self Sig: Take 1 tablet (81 mg) by mouth once daily in the morning. atorvastatin (Lipitor) 40 mg tablet 06/12/2023 Self Sig: Take 1 tablet (40 mg) by mouth once daily at bedtime. azaTHIOprine (Imuran) 50 mg tablet 06/13/2023 Self Sig: Take 1 tablet (50 mg) by mouth once daily. catheter ([facility] Male External Cath) 1 misc Unknown Self Si each once daily. ertapenem 1 g in sodium chloride 0.9% 50 mL IV Not Taking Self Sig: Infuse 1 g at 100 mL/hr over 30 minutes into a venous catheter once every [address] Junior (infectious disease doctor) to determine if refill needed or not. Do not start before April 21, 2023. Patient not taking: Reported on 06/13/2023 gauze bandage (Kerlix) 3.4 X 3.6 -yard bandage Unknown Self Sig: Apply 1 each topically once daily. hydrOXYzine HCL (Atarax) 10 mg tablet Not Taking at patient completed this therapy Self Sig: Take 1 tablet (10 mg) by mouth once daily as needed for anxiety. Patient not taking: Reported on 06/13/2023 magnesium oxide (Mag-Ox) 400 mg (241.3 mg magnesium) tablet 06/13/2023 Self Sig: Take 1 tablet (400 mg) by mouth once daily. pantoprazole (ProtoNix) 20 mg EC tablet 06/13/2023 Self Sig: Take 1 tablet (20 mg) by mouth twice a day. polyethylene glycol (Glycolax, Miralax) 17 gram packet 06/13/2023 Self Sig: Take 17 g by mouth once daily. Do not start before January 21, 2023. Patient taking differently: Take 17 g by mouth every other day if needed. predniSONE (Deltasone) 5 mg tablet 06/13/2023 Self Sig: Take 1 tablet (5 mg) by mouth once daily in the morning. rOPINIRole (Requip) 1 mg tablet 06/12/2023 Self Sig: Take 1 tablet (1 mg) by mouth once daily at bedtime. sulfamethoxazole-trimethoprim (Bactrim) 400-80 mg tablet 06/13/2023 Self Sig: Take 1 tablet by mouth once daily in the morning. tacrolimus (Prograf) 0.5 mg capsule 06/13/2023 Self Sig: Take 0.5 mg by mouth 2 times a day. tamsulosin (Flomax) 0.4 mg 24 hr capsule 06/13/2023 Self Sig: Take 1 capsule (0.4 mg) by mouth 2 times a day. Facility-Administered Medications: None The list below reflects the updated allergy list. Please review each documented allergy for additional clarification and justification. Allergies Reviewed by Joseph Kim on 06/13/2023 Severity Reactions Comments Cephalexin Medium Hives, Rash, Headache headache Other reaction(s): Unknown Reaction headache Tobramycin Medium Rash Other Reaction(s): pain rash Pain in groin and rectum area Other Reaction(s): pain rash Pain in groin and rectum area Meperidine Not Specified Dizziness [place] weird Other reaction(s): Other: See Comments, Unknown Reaction dizziness Erythromycin Low Rash headache Other reaction(s): Other: See Comments headache Penicillins Low Hives, Rash At 8 months old, swelling and hives. Patient accepts M2B at discharge. Pharmacy has been updated to [facility]. Sources used to complete the med history include Allergy list epic Epic dispense history Oarrs ( yes ) Caregiver interview Patient/caregiver provided home medication 9list Below are additional concerns with the patient's DATA SYSTEMS MANAGER list. Patient helps patient manage medications - patient is a good historian, I able to answer questions about patient medications - has list of patients home medications Oarrs 03/05/2023 oxycodone hcl 5 mg qty: 15 ds: 7 04/19/2023 oxycodone hcl 5 mg qty: 16 ds: 10 Joseph Kim [facility] Transitions of Care Soil Technician [facility] Please reach out via [employer] Secure Chat for questions, or if no response call [employer] or [employer] Patient was handed off to me by Dr. Mcgill at 1900. For full history, physical, and prior ED course, please see previous provider note prior to patient handoff. This is an addendum to the record. HOSPITAL COURSE/MEDICAL DECISION MAKING In short, this is a 67-year-old male presented to the emergency department due to concerns for cholecystitis. Has quite an extensive history including ESRD s/p renal transplant 2012 with HD via RUE AVF, A-fib on Eliquis, CHF, CAD, aortic stenosis, diverticulitis s/p colostomy, and previous Dahiana's gangrene. He had a recent percutaneous cholecystostomy done 4 days prior to coming to the emergency department, however has not had significant improvement. Now having radiographic findings of cholecystitis despite cholecystostomy. Transferred to [facility] from [facility] for ACS evaluation. Initially was admitted to the floor after being started on ciprofloxacin and Flagyl. During my evaluation, he did begin to become febrile and regular. Shortly he entered into A-fib with RVR, however remained hemodynamically stable. Malinda bennett was called by bedside RN and was provided with an additional dose of diltiazem as well as 1 L bolus of fluids per ACS. Antibiotics were expanded and patient will now be upgraded to SICU status for ACS. Throughout the ED stay, the patient was monitored and re-examined for any changes in stability or symptomatology. Diagnoses as of 06/13/23 2316 Cholecystitis DIAGNOSIS 1. Cholecystitis DISPOSITION Upgrade to SICU I reviewed the patient s case with Dr. Cabrera who also saw the patient and agrees with the plan. The diagnosis and plan of care was also discussed with the patient. All the patient's questions were answered. The patient was receptive and agreeable to the plan of care. Arnaldo Lawton MD Emergency Medicine PGY-3 This note was dictated using [employer] dictation. Please excuse any errors found in the note. Associated attestation - Eron Cabrera MD - 06/18/2023 6:08 PM EDT I performed a history and physical examination of Jagruti Esparza and discussed his management with Dr. Katya Lawton. I agree with the history, physical, assessment, and plan of care, with the following exceptions: None I was present for the following procedures: None Time Spent in Critical Care of the patient: None Time spent in discussions with the patient and family: 5 Eron Cabrera MD documented in this encounter [facility] Work Phone: 06-20-2023 Consult note Formatting of th is note might be different from the original. Nutrition Initial Assessment: Nutrition Assessment Reason for Assessment: Dietitian discretion (MST = 2) Due to Screening for MST and an MST =2 met with patient this morning. Pt does not want to engage with this service and d/t pt discharging tomorrow 06/20 will hold off at this time from further assessment. Time Spent/Follow-up Reminder: Time Spent (min): 30 minutes Last Date of Nutrition Visit: 06/20/23 Nutrition Follow-Up Needed?: Dietitian to reassess per policy Follow up Comment: holding off on MST d/t pt discharging tomorrow and pt does not want to engage with this service Wound Care Consult Visit Date: 06/17/2023 Patient Name: Jagruti Esparza Date of : 1955 Reason for Consult: re consulted for buttocks Wound Team Summary Assessment: Patient refused to turn for reassessment of buttocks pressure injury. Photo taken during skin rounds (06/14) and again on 06/16. Slight improvement noted with use of Triad wound ointment dressing. Please continue using ointment as well as turning/repositioning patient every 2 hours while in bed. Wound Team Plan: Will follow-up as needed. Caitlyn Madera RN 06/17/2023 4:39 PM Associated Order(s): IP CONSULT TO NEPHROLOGY TRANSPLANT Transplant Nephrology progress note Date of admission: 06/13/2023 Jagruti Esparza is a 67 y.o. with PMH Past Medical History: Diagnosis Date PONV (postoperative nausea and vomiting) SUBJECTIVE: Jagruti Esparza is a 67 y.o. male with a PMH of ESRD s/p LUKT 2012, on immunosuppression, pAF/Afib not on AC (on Flecainide/Diltiazem), diverticulitis s/p sigmpoid colectomy and colostomy, acalculous cholecystitis 02/2023 admitted from OSH due to biliary colic. Pt transferred to ICU due to hypotension, tachycardia requiring IV vasopressors and due to c/f cholangitis he had open cholecystectomy on 06/14. Nephrology following for immunosuppression management. Pt seen after procedure today. Remains on levophed, vasopressin. He has bowers placed with good UOP. He is complaining of abdominal pain. Pt has had very little oral intake over the last couple days and prior to admission he was having some nausea. No diarrhea. PROBLEM LIST: Principal Problem: Cholecystitis Active Problems: Urinary tract infection Hiatal hernia ALLERGIES: Allergies Allergen Reactions Cephalexin Hives, Rash and Headache headache Other reaction(s): Unknown Reaction headache Tobramycin Rash Other Reaction(s): pain rash Pain in groin and rectum area Other Reaction(s): pain rash Pain in groin and rectum area Meperidine Dizziness [place] weird Other reaction(s): Other: See Comments, Unknown Reaction dizziness Erythromycin Rash headache Other reaction(s): Other: See Comments headache Penicillins Hives and Rash At 8 months old, swelling and hives. CURRENT MEDICATIONS: Scheduled medications acetaminophen, 650 mg, oral, q6h aspirin, 81 mg, oral, q AM atorvastatin, 40 mg, oral, Nightly [Held by provider] dilTIAZem SR, 90 mg, oral, BID enoxaparin, 40 mg, subcutaneous, q24h insulin lispro, 0-5 Units, subcutaneous, q4h meropenem, 1 g, intravenous, q8h pantoprazole, 20 mg, oral, BID AC polyethylene glycol, 17 g, oral, Daily predniSONE, 5 mg, oral, Daily rOPINIRole, 1 mg, oral, Nightly sulfamethoxazole-trimethoprim, 1 tablet, oral, q AM tacrolimus, 0.5 mg, oral, BID tamsulosin, 0.4 mg, oral, BID vancomycin, 1,250 mg, intravenous, q12h Continuous medications lactated Ringer's, 75 mL/hr, Last Rate: Stopped (06/15/23 1126) norepinephrine, 0.01-1 mcg/kg/min ([place]), Last Rate: Stopped (06/15/23 1400) vasopressin, 0.03 Units/min, Last Rate: 0.03 Units/min (06/15/23 1255) PRN medications PRN medications: calcium gluconate, calcium gluconate, dextrose, dextrose, glucagon, glucagon, magnesium sulfate, magnesium sulfate, naloxone, ondansetron, oxyCODONE, oxyCODONE, potassium chloride, potassium chloride, vancomycin OBJECTIVE: VITALS: Visit Vitals BP (!) 111/43 Pulse 68 Temp 35.7 C (96.3 F) (Temporal) Resp 17 Ht 1.753 m (5' 9 ) Wt 83.1 kg (183 lb 3.2 oz) SpO2 98% BMI 27.05 kg/m Smoking Status Never BSA 2.01 m General: No distress Mucosa moist AI, AC, AF HEENT: PEERLA CVS: S1 S2 no murmurs RESP: Lungs clear to auscultation ABDO: Soft, non-tender Neuro: A + O x 3 Skin: No rash Extremities: No edema LABS: Results from last 72 hours Lab Units 06/15/23 1130 WBC AUTO x10*3/uL 9.2 HEMOGLOBIN g/dL 7.8* MCV fL 91 PLATELETS AUTO x10*3/uL 117* BUN mg/dL 24* CREATININE mg/dL 0.59 CALCIUM mg/dL 9.9 Intake/Output Summary (Last 24 hours) at 06/15/2023 1427 Last data filed at 06/15/2023 1300 Gross per 24 hour Intake 4387.86 ml Output 1110 ml Net 3277.86 ml ASSESSMENT AND PLAN: Jagruti Esparza is a 67 y.o. male with a PMH of ESRD s/p KT 2012, on immunosuppression, pAF/Afib not on AC (on Flecainide/Diltiazem), diverticulitis s/p sigmpoid colectomy and colostomy, acalculous cholecystitis 02/2023 admitted from OSH due to biliary colic. Pt transferred to ICU due to hypotension, tachycardia requiring IV vasopressors and due to c/f cholangitis he had open cholecystectomy on 06/14. Nephrology following for immunosuppression management. #ESRD s/p KT 2012 -Allograft function: -allograft function at baseline Scr ~0.6, and pt has good UOP so will monitor closely in setting of septic shock -metabolic parameters acceptable -continue daily volume assessments and resuscitate as needed. Pt appears euvolemic on exam. -strict I/O, daily RFP, avoid nephrotoxic medications, avoid NSAIDS -Vancomycin level elevated (21) so please dose appropriately to avoid any nephrotoxicity #Immunosuppression -continue Tacrolimus 0.5mg BID, Prednisone -obtain Tacrolimus level in AM, goal 4-6 -hold Azathioprine in setting of sepsis, bacteremia #Infectious prophylaxis -bactrim ppx #CKD-Anemia -Hb 7.8 -please obtain iron, ferritin #Acid-base -mild NAGMA -> monitor at this time #Septic shock 2/2 cholecystitis s/p open kerline 06/14 #Gram negative bacilli bacteremia -remains on levophed, vasopressin -Vancomycin, meropenem Joie Jorgensen, DO Nephrology fellow PGY 4 Available via [employer] Chat Transplant pager #[phone] Associated Order(s): PHARMACY TO DOSE VANCO Vancomycin Dosing by Pharmacy- INITIAL Jagruti Esparza is a 67 y.o. year old male who Pharmacy has been consulted for vancomycin dosing for abdominal infection/sepsis. Based on the patient's indication and renal status this patient will be dosed based on a goal AUC of 400-600. Will start off dosing at the higher end of the goal range. Renal function is currently stable. Visit Vitals BP (!) 95/44 Pulse 94 Temp 37.6 C (99.7 F) (Temporal) Resp 19 Lab Results Component Value Date CREATININE 0.65 06/14/2023 CREATININE 0.65 06/13/2023 CREATININE 0.56 06/13/2023 CREATININE 0.56 05/25/2023 Patient weight is No results found for: PTWEIGHT No results found for: CULTURE I/O last 3 completed shifts: In: 200 (2.6 mL/kg) [IV Piggyback:200] Out: - (0 mL/kg) Weight: 75.7 kg @IOTHISSHIFT@ Lab Results Component Value Date PATIENTTEMP 37.0 06/13/2023 PATIENTTEMP 37.0 04/14/2023 PATIENTTEMP 37.0 04/13/2023 Assessment/Plan Patient has already been given a loading dose of 2000 mg in the ED. Will initiate vancomycin maintenance, 1250 mg every 12 hours. This dosing regimen is predicted by [employer] to result in the following pharmacokinetic parameters: Regimen: 1250 mg IV every 12 hours. Start time: 12:29 on 06/14/2023 Exposure target: AUC24 (range)400-600 mg/L.hr AUC24,ss: 555 mg/L.hr Probability of AUC24 > 400: 81 % Ctrough,ss: 16.7 mg/L Probability of Ctrough,ss > 20: 36 % Probability of nephrotoxicity (Lodise BRYSON 2008): 12 % Follow-up level will be ordered on 06/14 with AM labs, unless clinically indicated sooner. Will continue to monitor renal function daily while on vancomycin and order serum creatinine at least every 48 hours if not already ordered. Follow for continued vancomycin needs, clinical response, and signs/symptoms of toxicity. Walter Corey, PharmD, BCPS Associated Order(s): PHARMACY TO DOSE VANCO Vancomycin Dosing by Pharmacy- INITIAL Jagruti Esparza is a 67 y.o. year old male who Pharmacy has been consulted for vancomycin dosing for other (abdominal infection) . Based on the patient's indication and renal status this patient will be dosed based on a goal AUC of 400-600. Renal function is currently stable. Visit Vitals BP (!) 170/109 Pulse (!) 147 Temp (!) 39.3 C (102.7 F) (Axillary) Resp 19 Lab Results Component Value Date CREATININE 0.56 06/13/2023 CREATININE 0.56 05/25/2023 CREATININE 0.41 (L) 04/20/2023 CREATININE 0.40 (L) 04/19/2023 Patient weight is No results found for: PTWEIGHT No results found for: CULTURE No intake/output data recorded. @IOTHISSHIFT@ Lab Results Component Value Date PATIENTTEMP 37.0 04/14/2023 PATIENTTEMP 37.0 04/13/2023 PATIENTTEMP 37.0 02/26/2023 Assessment/Plan Patient will be given a loading dose of 2000 mg. Will initiate vancomycin maintenance, 1250 mg every 12 hours. This dosing regimen is predicted by [employer] to result in the following pharmacokinetic parameters: Loading dose: 2000 mg at 23:30 06/13/2023. Regimen: 1250 mg IV every 12 hours. Start time: 11:30 on 06/14/2023 Exposure target: AUC24 (range)400-600 mg/L.hr AUC24,ss: 494 mg/L.hr Probability of AUC24 > 400: 71 % Ctrough,ss: 14.2 mg/L Probability of Ctrough,ss > 20: 26 % Probability of nephrotoxicity (Lodise BRYSON 2008): 9 % Follow-up level will be ordered on 06/14 at AM labs unless clinically indicated sooner. Will continue to monitor renal function daily while on vancomycin and order serum creatinine at least every 48 hours if not already ordered. Follow for continued vancomycin needs, clinical response, and signs/symptoms of toxicity. STAN HARDWICK PharmD documented in this encounter [facility] Work Phone: 06-18-2023 Nurse Note ~ 11:12: pt had 8 beats of VT on the monitor, pt asymptomatic, VSS. Mayela Avila MD notified, ECG obtained no further orders at this time. Patient transferred into room 9032 in stable condition. Falls protocol reviewed with patient and function of call light. Patient verbalized understanding. Vital signs obtained and are stable, plan of care discussed with patient and spouse. 1900: Bedside RN report received 1999, 0000, 0400: hand hygiene performed Pt very adamant on refusing to turn at 2000 and 2200. Education was provided to the patient on the importance of frequent turning. Pt states he only does it once a day and then rolled his eyes at RN. aware. 2115: Pt states that he feels like his heart stopped or is beating fast Frequent PVCs shown on the tele monitor. EKG was obtained and given to Liban ACADEMIC ADVISEMENT DIRECTOR with TICU with no new orders. 0100: Liban ACADEMIC ADVISEMENT DIRECTOR with TICU aware of chronically low urine output throughout the day/night. No new orders 0710: Bedside RN report given 1900: bedside RN report received 1999, 0000, 0400: Hand hygiene performed 2140: Bladder scan showed 211 mL. 0400: Bladder scan showed 248mL. 0440: Pt went into an 8-beat run of V-Tach. Pt recovered with no interventions 0638: Per Dhruv Calvert, go off cuff for pressors 0700: Bedside RN report given documented in this encounter [facility] Work Phone: 06-14-2023 Procedure note Left radial arterial line placement Consent obtained at bedside. Patient was placed supine. Patient's left wrist was prepped and draped in usual standard fashion. A finder needle was guided under ultrasound to left radial artery, which was confirmed with pulsatility and lack of compressibility. A 20g catheter line was introduced over a wire via the Seldinger technique, and then sutured in place. Arterial blood flow was noted, flushed well. The patient tolerated the procedure well. Arterial waveform on monitor confirmed placement. Nydia Urbina MD General Surgery PGY2 Pediatric Surgery [id number] Right Internal Jugular CVC placement Consent obtained at bedside. Patient was placed supine in Trendelenburg position. A time out was completed, verifying correct patient, procedure site, positioning, and indications. Patient's right neck was prepped and draped in usual standard fashion. Local anesthesia was obtained using 2mL lidocaine. A syringe and needle were guided under ultrasound to right IJ, which was confirmed with positioning and compressibility. A 16cm central line was introduced over a wire via the Seldinger technique, and then sutured in place. Column catheter also confirmed venous blood flow. Good blood flow was noted in all three ports and flushed easily. The patient tolerated the procedure well. Chest xray is ordered for position confirmation. Nydia Urbina MD General Surgery PGY2 Pediatric Surgery [id number] documented in this encounter [facility] Work Phone: 06-13-2023 Evaluation + Plan note Extrac feroz from: Title:ED Note Author:Leslie Lee DO Date :06/13/23 Abdominal pain, acute (R10.9 : Unspecified abdominal pain) N&V (nausea and vomiting) (R11.2: Nausea with vomiting, unspecified) Orders: HYDROmorphone, 0.5 mg = 0.5 mL, Injection, IV Push, Once, Stop date 06/13/23 4:48:00 EDT, STAT, Start date 06/13/23 4:48:00 EDT, 06/13/23 4:48:00 EDT HYDROmorphone, 0.5 mg = 0.5 mL, Injection, IV Push, Once, Stop date 06/13/23 6:31:00 EDT, STAT, Start date 06/13/23 6:31:00 EDT, 06/13/23 6:31:00 EDT ondansetron, 4 mg = 2 mL, Injection, IV Push, Once, Stop date 06/13/23 4:45:00 EDT, STAT, Start date 06/13/23 4:45:00 EDT, 06/13/23 4:45:00 EDT Sodium Chloride 0.9% intravenous solution, 1,000 mL, Soln-IV, IV, Once, Stop date 06/13/23 4:45:00 EDT, STAT, Start date 06/13/23 4:45:00 EDT, Infuse over 61, minute(s) Basic Metabolic Panel CBC w/ Auto Diff CT Abdomen/Pelvis w/o Contrast eGFR Hepatic Function Panel Lactic Acid Lactic Acid Lipase Level UA with Cult Rflx Addendum by Miguelito Francisco DO on June 13, 2023 09:37:13 EDT Patient was signed out to me by the prior physician I did review full workup here in the emergency department. Patient continued to have pain despite treatment here therefore was given additional medication. CT scan read by teleradiology with multiple positive findings most clinically relevant was the distention of the gallbladder with a density that could be from sludge or cholelithiasis. Patient continues to have pain also has evidence of elevated lactate levels. He is treated here with fluids. Patient also has hypercalcemia which appears to be chronic as well. Urinalysis did come back positive for UTI therefore he is treated with Cipro and Flagyl. Ultimately he still continued to have increasing right upper quadrant pain his understanding is that he is supposed to have a conversation with surgery about the appropriate time for cholecystectomy. Therefore he did request transfer to as this is where he has had his colostomy surgery as well as his kidney transplant. I spoke with Dr. Weaver from surgery who did accept the patient recommend that we go ER to ER. I spoke with the ER physician there and the patient is transfer to the emergency department at for further evaluation and likely inpatient treatment. Additional diagnoses: UTI, biliary colic, biliary sludge, hypercalcemia Diagnostic Tests Pending * Urine Culture 06/13/23 Future Scheduled Tests Laboratory* Tacrolimus Lvl 02/10/23 * CBC w/ Auto Diff 02/10/23 * Comprehensive Metabolic Panel 02/10/23 [facility]03-31-2024 Emergency department Note* Shiva Mcgill MD - 06/13/2023 12:16 PM EDT CC: No chief complaint on file. 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 Patient reports has had right upper quadrant pain, nausea, and multiple episodes of vomiting with inability to tolerate p.o. over the last 5 days, has been present since prior to his cholecystostomy tube being removed. CT scan at outside hospital demonstrated distention of the gallbladder with biliary sludge and possible cholelithiasis. Elevated lactate,treated with fluids. Also with evidence for UTI, received Cipro and Flagyl. Patient denies any dysuria but does note some urinary retention. Received Cipro and Flagyl at outside hospital. Transferred here for evaluation by [facility] Records Reviewed: Recent available ED and inpatient notes reviewed in EMR. PMHx/PSHx: Per HPI. - has a past medical history of PONV (postoperative nausea and vomiting). - has a past surgical history that includes Other surgical history (12/25/2020); Other surgical history (12/25/2020); Other surgical history (12/25/2020); Other surgical history (12/25/2020); Other surgical history (12/25/2020); Other surgical history (07/11/2021); CT guided imaging for abscess drain (01/11/2023); Cardiac catheterization (N/A, 03/02/2023); Gallbladder surgery; and Colostomy. - has Diverticulitis; Kidney transplant recipient; HTN (hypertension); Atrial flutter ([facility]); Mild aortic stenosis; Right upper quadrant abdominal pain; Sepsis ([facility]); NSTEMI (non-ST elevated myocardial infarction) ([facility]); Coronary artery disease involving koi coronary artery of koi heart without angina pectoris; Never smoked any substance; Scrotal wall abscess; Dahiana's gangrene; Scrotal abscess; ESRD (end stage renal disease) ([facility]); Hydrocele; Hallucination, visual; and S/P orchiectomy on their problem list. Medications: Reviewed in EMR. See EMR for complete list of medications and doses. Allergies: Cephalexin, Tobramycin, Meperidine, Erythromycin, and Penicillins Social History: - Tobacco: reports that he has never smoked. He has never used smokeless tobacco. - Alcohol: reports that he does not currently use alcohol. - Illicit Drugs: reports no history of drug use. ROS: Per HPI. ? Triage Vitals: T HR BP RR O2 Physical Exam Vitals and nursing note reviewed. Constitutional: Appearance: Normal appearance. HENT: Head: Normocephalic and atraumatic. Cardiovascular: Rate and Rhythm: Normal rate and regular rhythm. Heart sounds: Normal heart sounds. Pulmonary: Effort: Pulmonary effort is normal. Breath sounds: Normal breath sounds. No wheezing or rales. Abdominal: Tenderness: There is abdominal tenderness (Most prominent in epigastrium and right upper quadrant).There is no guarding or rebound. Comments: Ostomy in left abdomen without surrounding erythema, fluctuance, or warmth. Overlying ostomy bag. 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 Neurological: Mental Status: He is alert and oriented to person, place, and time. Psychiatric: Mood and Affect: Mood normal. Behavior: Behavior normal. ? Assessment and Plan: 67-year-old male with multiple prior abdominal surgeries, history of ESRD s/p renal transplant in 2022, presents to the emergency department as transfer from outside hospital for further evaluation of biliary colic. Also found to have urinary tract infection, received cipro and flagyl at outside hospital, will continue that here. Abdominal exam demonstrates epigastric and right upper quadrant tenderness, no other areas of tenderness. Hemodynamically stable without hypotension or tachycardia, received fluids at outside hospital, will hold off on additional fluids pending repeat lab work. Basicand pre-operative labs were drawn and [facility] was consulted to evaluate further. ED Course: CT imaging was reviewed by [facility] who evaluated patient at bedside. OK for clears, will be admitted totir service for further management of symptomatic biliary colic. Social Determinants Limiting Care: None identified Disposition: Admit to [facility] -- Shiva Mcgill MD Emergency Medicine, PGY-3 Diagnoses as of 06/13/23 1320 Cholecystitis Procedures ? SmartLinks last updated 06/13/2023 12:31 PM Shiva Mcgill MD Resident 06/13/23 1326 Associated attestation - Jessica Pang MD - 06/15/2023 8:40 PM EDT The patient was seen by the resident/fellow. I have personally performed a substantive portion of the encounter. I have seen and examined the patient; agree with the workup, evaluation, MDM, management and diagnosis. The care plan has been discussed with the resident; I have reviewed the resident snote and agree with the documented findings. I independently interpreted the EKG: Reference: None Indication: Pre-op Interpretation: Sinus rhythm w/ a normal axis. Normal [place] and Qtc intervals. No ST segment elevations, depressions, or T wave inversions. * Giovanni Spann RN - 06/13/2023 12:16 PM EDT Patient arrives to the ED via EMS as a transfer from [facility] d/t abdominal pain. Patient complains of having pain for the last 5 days. Patient has a hx of Kidney transplant and recently had gallbladder drains removed. documented in this [facility] Work Phone: 1(437) 674-646403-31-2024 History and physical note* Mayela Avila MD - 06/13/2023 10:07 AM EDT [facility] ACUTE CARE SURGERY - HISTORY AND PHYSICAL / CONSULT Patient Name: Jagruti Esparza Admit Date: : 1955 AGE: 67 y.o. GENDER: male TODAY'S ASSESSMENT AND PLAN OF CARE: This is a 67 y/o M with a PMH of HTN, CAD, HFpEF (50-55%), paroxysmal Afib/flutter, ESRD s/p kidneytxp (2012), hiatal hernia, GERD, complicated diverticulitis with pericolonic abscess s/p lap sigmoid resection with end colostomy, Dahiana's gangrene s/p multiple I&Ds, and acalculous cholecystitis s/p percutaneous cholecystostomy tube placement on 02/25/23 who presents as a transfer from OSH for evaluation of biliary colic. When patient initially presented with cholecystitis in Feb 2023, he also had incidental tropninemiato 6700. For that reason, surgery was deferred a perc ekrline was placed by IR instead. Aspirate cultures grew MDR E Coli and he did briefly required postop pressors, completing 5-day course of antibiotics. He also received medical treatment for NSTEMI with ASA load, heparin, and statin. He later underwent LHC 03/02 which showed chronic total occlusion of LAD, no intervention. He was subsequently started on Eliquis. A cholangiogram was done in Apr 2022 when the patient was admitted for management of Dahiana's gangrene and suggested presence of stones, so drain was left in place. He was then followed up in clinic on 05/25/23, at which time he reported no output from drain in over 1.5 mo. His drain was subsequently removed on 06/08 as it seemed to have been dislodged from the gallbladder anyway. Since then, he has had intermittent RUQ pain, N/V, heartburn, and poor PO intake. He presented to [facility] and was found to have distension of the gallbladder with sludge and presence of stones. Additionally, his UA demonstrated a UTI for which he was started on cipro/flagyl. Patient denies fever, chills, const ipation, diarrhea, or dysuria. Plan: - Admit to [facility] - Ok for clear liquid diet - IV abx: cipro, flagyl - CBC, CMP, coags - Hold home Eliquis - Will consider replacement of percutaneous cholecystostomy tube vs open cholecystectomy Patient discussed with attending, Dr. Galvan. Mayela Avila MD PGY-2 General Surgery [facility] [id number] CHIEF COMPLAINT/REASON FOR CONSULT: Biliary colic PAST MEDICAL HISTORY: PMH: As above PSH: Past Surgical History: Procedure Laterality Date CARDIAC CATHETERIZATION N/A 03/02/2023 Procedure: Left Heart Cath; Surgeon: Leonardo Welch MD; Location: [address] Cardiac Line Installer; Service: Cardiovascular; Laterality: N/A; COLOSTOMY CT GUIDED IMAGING FOR ABSCESS DRAIN 01/11/2023 CT GUIDED IMAGING FOR ABSCESS DRAIN 01/11/2023 Jerome Farrell MD [facility] CT GALLBLADDER SURGERY OTHER SURGICAL HISTORY 12/25/2020 Arteriovenous fistula creation procedure OTHER SURGICAL HISTORY 12/25/2020 Neck surgery OTHER SURGICAL HISTORY 12/25/2020 Kidney transplantation OTHER SURGICAL HISTORY 12/25/2020 Facial surgery OTHER SURGICAL HISTORY 12/25/2020 Vasectomy OTHER SURGICAL HISTORY 07/11/2021 Colonoscopy complete for polypectomy FH: Family History Problem Relation Name Age of Onset Diabetes type I Mother Other (malignant neoplasm of colon) Mother Other (high serum cholestanol) Mother Other (heart problem) Father Other (CABG) Father Other (cardiovascular disease) Father SOCIAL HISTORY: Smoking: Social History Tobacco Use Smoking Status Never Smokeless Tobacco Never Alcohol: Social History Substance and Sexual Activity Alcohol Use Not Currently Drug use: Denies MEDICATIONS: Prior to Admission medications Medication Sig Start Date End Date Taking? Authorizing Provider apixaban (Eliquis) 5 mg tablet Take 1 tablet (5 mg) by mouth every 12 hours. 03/26/23 03/25/24 Hernandez Hankins MD aspirin 81 mg EC tablet Take 1 tablet (81 mg) by mouth once daily in the morning. Historical Provider, atorvastatin (Lipitor) 40 mg tablet Take 1 tablet (40 mg) by mouth once daily at bedtime. 03/26/23 03/25/24 Hernandez Hankins MD catheter ([facility] External Cath) 1 misc 1 each once daily. 04/19/23 Etta Roth MD DILT-XR 180 mg 24 hr capsule Take 1 capsule (180 mg) by mouth once daily. 03/26/23 03/25/24 Hernandez Slade MD ertapenem 1 g in sodium chloride 0.9% 50 mL IV Infuse 1 g at 100 mL/hr over 30 minutes into a venous catheter once every [address] Junior (infectious disease doctor) to determine if refill neededor not. Do not start before April 21, 2023. 04/21/23 Etta Roth MD gauze bandage (Kerlix) 3.4 X 3.6 -yard bandage Apply 1 each topically once daily. 04/19/23 Etta Roth MD hydrOXYzine HCL (Atarax) 10 mg tablet Take 1 tablet (10 mg) by mouth once daily as needed for anxiety. 04/19/23 Etta Roth MD magnesium oxide (Mag-Ox) 400 mg (241.3 mg magnesium) tablet Take 1 tablet (400 mg) by mouth once daily. 11/17/22 Historical ProviderMD pantoprazole (ProtoNix) 20 mg EC tablet Take 1 tablet (20 mg) by mouth twice a day. 07/20/22 Historical ProviderMD polyethylene glycol (Glycolax, Miralax) 17 gram packet Take 17 g by mouth once daily. Do not start before January 21, 2023. Patient taking differently: Take 17 g by mouth every other day if needed. 01/21/23 Mery Jones MD predniSONE (Deltasone) 5 mg tablet Take 1 tablet (5 mg) by mouth once daily in the morning. Historical Provider, rOPINIRole (Requip) 1 mg tablet Take 1 tablet (1 mg) by mouth once daily at bedtime. 06/13/13 Historical Provider, sodium bicarbonate 650 mg tablet Take 1 tablet (650 mg) by mouth 3 times a day. Historical Provider, sodium chloride 1,000 mg tablet Take 1 tablet (1 g) by mouth 3 times a day. Historical Provider, sulfamethoxazole-trimethoprim (Bactrim) 400-80 mg tablet Take 1 tablet by mouth once daily in the morning. Historical Provider, tacrolimus (Prograf) 0.5 mg capsule Take 0.5 mg by mouth 2 times a day. 01/20/23 Mery Jones MD tamsulosin (Flomax) 0.4 mg 24 hr capsule Take 1 capsule (0.4 mg) by mouth 2 times a day. 06/09/23 Gerson Bryan MD tamsulosin (Flomax) 0.4 mg 24 hr capsule Take 1 capsule (0.4 mg) by mouth 2 times a day. 06/09/23 Historical Provider, ALLERGIES: Allergies Allergen Reactions Cephalexin Hives, Rash and Headache headache Other reaction(s): Unknown Reaction headache Tobramycin Rash Other Reaction(s): pain rash Pain in groin and rectum area Other Reaction(s): pain rash Pain in groin and rectum area Meperidine Dizziness [place] weird Other reaction(s): Other: See Comments, Unknown Reaction dizziness Erythromycin Rash headache Other reaction(s): Other: See Comments headache Penicillins Hives and Rash At 8 months old, swelling and hives. REVIEW OF SYSTEMS: All systems reviewed and otherwise negative. PHYSICAL EXAM: General: NAD, resting comfortably HEENT: NCAT Resp: nonlabored breathing CV: RRR Abd: soft, mildly distended, focal peritonitis in RUQ with involuntary guarding but abdomen otherwise nontender, colostomy pink and viable with no stool in bag (just replaced) : no suprapubic tenderness MSK: moves all extremities Ext: no LE edema Psych: appropriate mood and behavior IMAGING SUMMARY: Cholangiogram 06/08: Percutaneous cholecystostomy tube was entirely displaced from the gallbladder upon initial evaluation. Catheter was removed in its entirety uneventfully. LABS: Pending labs. I have reviewed all laboratory and imaging results ordered/pertinent for this encounter. Associated attestation - Kang Galvan MD - 06/15/2023 4:03 PM EDT I saw and examined the patient. I discussed the patient's care with the resident/TANI team. I agree with the note with the additions/clarifications below. Consult from the ED. I spoke to the ED team at [facility] and accepted his transfer. Late entry for 06/13/2023. 67 yo male with RUQ abdominal pain. Has had medically complicated several months with ND, NSTI and cholecystitis s/p percutaneous cholecystostomy tube placement. Drain was no longer in the gallbladder and was removed. Now with RUQ pain. On exam, chronically ill appearing. Abd is soft, ND and NT. WBC 8. OSH imaging reviewed. No indication for acute surgical intervention. Plan for IVFs, NPO, IV ABX, admission, monitor exam and perioperative medicine consult for risk stratification given significant comorbidities and pain. [facility] Phone: [phone]) 492-386503-27-2024 NotePercutaneous cholecystostomy tube was entirely displaced from the gallbladder upon initial evaluation. Catheter was removed in its entirety uneventfully. I was present for and/or performed the critical portions of the procedure and immediately available throughout the entire procedure. I personally reviewed the image(s)/study and interpretation. I agree with the findings as stated. Performed and dictated at [facility]. MACRO: None Signed by: Chris Farrell 06/09/2023 2:58 PM Dictation workstation: [id number] History of Present illness Narrative* Gerson Bryan MD - 06/09/2023 11:30 AM EDT Scribed for Dr. Gerson Bryan by Eric Jewell. I, Dr. Gerson Bryan have personally reviewed and agreed with the information entered by the Virtual Scribe. 06/09/23. 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 Scrotal Abscess - s/p I&D, debridement and R orchiectomy with Dr. Roth (04/13/23) 2. BPH with LUTS 3. Kidney transplant recipient (2012) - continues immunosuppression. 4. AFIB - on diltiazem/eliquis 5. Aortic stenosis, mild 6. HFpEF 7. Chronic anemia 8. Diverticulosis 9. Hiatal hernia 10. GERD 11. WILLIAN PLAN: Remains non-ambulatory. Unable to transfer today. Superior aspect of wound along R hemiscrotum is intact. 3x observable sutures removed. The remaining area to heal is less than <2 inches in diameter, continuing with wtd packing and closure by secondary intention Continues to close well, with no signs of recurring infection. All questions were answered to the patient s satisfaction. Patient agrees with the plan and wishes to proceed. Continue follow-up for ongoing care of his chronic medical conditions. History of Present Illness (HPI): Jagruti presents as a new patient for an evaluation. The patient s EMR has been reviewed. Lives in [place], [place]. Receives home health care through [employer] [facility]. He is immobile. Extensive and complicated past medical history. See below. Recently hospitalized for a scrotal abscess in Mar 2023. Possible dahiana's gangrene in the setting of large hydrocele. Stated his hydrocele is chronic, for at least >10 years. Dx with an infected R hydrocele and scrotal wall abscess. s/p I&D, debridement and R orchiectomy (R) with Dr. Roth ~ (04/13/23). Operative finding was described as gush of purulent dishwater fluid. OSH wound cx positive for ESBL E coli, E. Faecalis and scant CoNS. 04/13/23 OR cx positive for E. Coli and Slime parapsilosis. Performed well post-operatively, passed TOV on POD#4. Followed by ID and had PICC line placed by IR (04/19/23). Discharged home with PICC for ongoing IV antibiotics at home. Since completed IV therapy, and PICC was removed by IR. (05/25/23) TODAY: (06/09/23) Presents today for a post-op visit and wound check. Continues to heal, still unable to ambulate without assistance. Per , wound packing only going in 1 inch. Continues follow up with physical therapy; recovering but slowly. Denies any worsening discomfort, swelling, recent fevers or chills. Continues with a cholecystostomy tube and colostomy. Has the cholecystostomy 2/2 acalculous cholecystitis (Feb 2023). TO REVIEW: Following PICC removal, developed palpitations and went to the ED. Underwent cardiac work-up, noting frequent PVC's. Likely related to his hypomagnesemia, given Rx for supplement. Offered overnight telemetry given his extensive cardiac hx. However, patient declined and opted to follow up with outpatient cardiology. Has extensive cardiac history including recent ND, aortic stenosis, HFpEF and AFIB. Continues on diltiazem and eliquis. Hx of ESRD s/p kidney transplant (2012) Continues on immunosuppressive therapy. Followed by nephrology, Dr. Pedroza. Recent hospitalizations: Jan 2023 - hospitalized for complicated diverticulitis with pericolonic abscess. S/p laparoscopic sigmoid resection with end colostomy and umbilical hernia repair; notable bed-bound status c/b decub ulcers of sacrum and mid back. Feb 2023 - Readmitted for acalculous cholecystitis (Feb 2023). S/p percutaneous cholecystostomy tube 03/06 Surgery deferred d/t elevated troponin; Was found to have chronic total LAD occlusion. Mar 2022 - Presented to the [facility] ED on 04/13 as a transfer from [facility]. C/o several day history of worsening scrotal pain/draining scrotal lesions as well as buttocks pain. Underwent CT imaging and a scrotal US at [facility], noting a large scrotal abscess with gas, with palpable crepitus and areas of necrosis on exam. He was transferred to [facility] ED for operative care. Upon arrival, urology was consulted and he underwent I&D, debridement and R orchiectomy (R) w ith Dr. Roth ~ (04/13/23). Past Medical History: HTN, CAD, HFpEF, mild , afib/flutter, ESRD, chronic anemia, RLS, hiatal hernia, GERD, diverticulitis, bedbound status, decub ulcers of sacrum and mid back, WILLIAN, BPH with LUTS,acalculous cholecystitis. Surgical History: AV fistula creation, kidney transplant 2012, end colostomy 2022, cholecystotomy 2022, left heart cath 2022, vasectomy, facial surgery, c- spine fusion. Social History: He reports that he has never smoked. He has never used smokeless tobacco. He reports that he does not currently use alcohol. He reports that he does not use drugs. Family History: Mother DM1, colon cancer, HLD; Father CAD Allergies: Cephalexin, Tobramycin, Meperidine, Erythromycin, and Penicillins Meds (Per ): apixaban 5mg BID, aspirin 81mg, atorvastatin 40mg, empagliflozin 10mg, tamsulosin 0.4mg, azaTHIOprine 50mg, DILT-XR 180mg, magnesium oxide 400mg, pantoprazole 20mg, polyethylene glycol, predniSONE 5mg, Prograf 0.5mg BID, rOPINIRole 1mg, bicarb 650mg BID, bactrim Past Medical History: Diagnosis Date PONV (postoperative nausea and vomiting) Past Surgical History: Procedure Laterality Date CARDIAC CATHETERIZATION N/A 03/02/2023 Procedure: Left Heart Cath; Surgeon: Leonardo Welch MD; Location: [address] Cardiac Line Installer; Service: Cardiovascular; Laterality: N/A; COLOSTOMY CT GUIDED IMAGING FOR ABSCESS DRAIN 01/11/2023 CT GUIDED IMAGING FOR ABSCESS DRAIN 01/11/2023 Jerome Farrell MD [facility] [place] CT GALLBLADDER SURGERY OTHER SURGICAL HISTORY 12/25/2020 Arteriovenous fistula creation procedure OTHER SURGICAL HISTORY 12/25/2020 Neck surgery OTHER SURGICAL HISTORY 12/25/2020 Kidney transplantation OTHER SURGICAL HISTORY 12/25/2020 Facial surgery OTHER SURGICAL HISTORY 12/25/2020 Vasectomy OTHER SURGICAL HISTORY 07/11/2021 Colonoscopy complete for polypectomy Family History Problem Relation Name Age of Onset Diabetes type I Mother Other (malignant neoplasm of colon) Mother Other (high serum cholestanol) Mother Other (heart problem) Father Other (CABG) Father Other (cardiovascular disease) Father Social History Tobacco Use Smoking Status Never Smokeless Tobacco Never Current Outpatient Medications Medication Sig Dispense Refill apixaban (Eliquis) 5 mg tablet Take 1 tablet (5 mg) by mouth every 12 hours. 180 tablet 3 aspirin 81 mg EC tablet Take 1 tablet (81 mg) by mouth once daily in the morning. atorvastatin (Lipitor) 40 mg tablet Take 1 tablet (40 mg) by mouth once daily at bedtime. 90 tablet3 catheter ([facility] External Cath) 1 misc 1 each once daily. (Patient not taking: Reportedon 05/25/2023) 12 each 3 DILT-XR 180 mg 24 hr capsule Take 1 capsule (180 mg) by mouth once daily. 90 capsule 3 ertapenem 1 g in sodium chloride 0.9% 50 mL IV Infuse 1 g at 100 mL/hr over 30 minutes into a venous catheter once every [address] Junior (infectious disease doctor) to determine if refill neededor not. Do not start before April 21, 2023. (Patient not taking: Reported on 05/25/2023) 14 each 1 gauze bandage (Kerlix) 3.4 X 3.6 -yard bandage Apply 1 each topically once daily. (Patient not taking: Reported on 05/25/2023) 96 each 1 hydrOXYzine HCL (Atarax) 10 mg tablet Take 1 tablet (10 mg) by mouth once daily as needed for anxiety. 10 tablet 0 magnesium oxide (Mag-Ox) 400 mg (241.3 mg magnesium) tablet Take 1 tablet (400 mg) by mouth once daily. pantoprazole (ProtoNix) 20 mg EC tablet Take 1 tablet (20 mg) by mouth twice a day. polyethylene glycol (Glycolax, Miralax) 17 gram packet Take 17 g by mouth once daily. Do not start before January 21, 2023. (Patient taking differently: Take 17 g by mouth every other day if needed.)30 packet 2 predniSONE (Deltasone) 5 mg tablet Take 1 tablet (5 mg) by mouth once daily in the morning. rOPINIRole (Requip) 1 mg tablet Take 1 tablet (1 mg) by mouth once daily at bedtime. sodium bicarbonate 650 mg tablet Take 1 tablet (650 mg) by mouth 3 times a day. sodium chloride 1,000 mg tablet Take 1 tablet (1 g) by mouth 3 times a day. sulfamethoxazole-trimethoprim (Bactrim) 400-80 mg tablet Take 1 tablet by mouth once daily in the morning. tacrolimus (Prograf) 0.5 mg capsule Take 0.5 mg by mouth 2 times a day. 60 capsule 2 tamsulosin (Flomax) 0.4 mg 24 hr capsule Take 1 capsule (0.4 mg) by mouth 2 times a day. No current facility-administered medications for this visit. Allergies Allergen Reactions Cephalexin Hives, Rash and Headache headache Other reaction(s): Unknown Reaction headache Tobramycin Rash Other Reaction(s): pain rash Pain in groin and rectum area Other Reaction(s): pain rash Pain in groin and rectum area Meperidine Dizziness [place] weird Other reaction(s): Other: See Comments, Unknown Reaction dizziness Erythromycin Rash headache Other reaction(s): Other: See Comments headache Penicillins Hives and Rash At 8 months old, swelling and hives. Past medical, surgical, family and social history in the chart was reviewed and is accurate including any additions to what is in this HPI. REVIEW OF SYSTEMS (ROS): Constitutional: denies any unintentional weight loss or change in strength. Integumentary: denies any rashes or pruritus. Eyes: denies any double vision or eye pain. Ear/Nose/Mouth/Throat: denies any nosebleeds or gum bleeds. Cardiovascular: denies any chest pain or syncope. Respiratory: denies hemoptysis. Gastrointestinal: denies nausea or vomiting. Musculoskeletal: denies muscle cramping or weakness. Neurologic: denies convulsions or seizures. Hematologic/Lymphatic: denies bleeding tendencies. Endocrine: denies heat/cold intolerance. All other systems have been reviewed and are negative unless otherwise noted in the HPI. OBJECTIVE: Visit Vitals BP 127/69 Pulse 90 Temp 36.7 C (98.1 F) (Temporal) PHYSICAL EXAM: Constitutional: No obvious distress. Eyes: Non-injected conjunctiva, sclera clear, EOMI. Ears/Nose/Mouth/Throat: No obvious drainage per ears or nose. Cardiovascular: Extremities are warm and well perfused. No edema, cyanosis or pallor. Respiratory: No audible wheezing/stridor; respirations do not appear labored. Gastrointestinal: Abdomen soft, not distended. Musculoskeletal: Normal ROM of extremities. Skin: No obvious rashes or open sores. Neurologic: Alert and oriented, CN 2-12 grossly intact. Psychiatric: Answers questions appropriately with normal affect. Hematologic/Lymphatic/Immunologic: No obvious bruises or sites of spontaneous bleeding. Genitourinary: No CVA tenderness, bladder not palpable. LABS & IMAGING: Lab Results Component Value Date WBC 7.3 05/25/2023 HGB 9.5 (L) 05/25/2023 HCT 27.2 (L) 05/25/2023 PLT 217 05/25/2023 ALT 4 (L) 05/25/2023 AST 10 05/25/2023 NA 137 05/25/2023 K 4.1 05/25/2023 CL 108 (H) 05/25/2023 CREATININE 0.56 05/25/2023 BUN 15 05/25/2023 CO2 22 05/25/2023 INR 1.5 (H) 04/19/[address] Gerson Bryan by Eric Jewell. I, Dr. Gerson Bryan have personally reviewed and agreed with the information entered by the Virtual Scribe. 06/09/23. documented in this [facility] Work Phone: [phone]) 903-229703-12-2024 History of Present illness Narrative* Sanju Guerrero, [facility] - 05/25/2023 9:20 PM EDT Pharmacy Medication History Review Jagruti Esparza is a 67 y.o. male in ED for No Principal Problem: There is no principal problem currently on the Problem List. Pharmacy reviewed the patient's medications and allergies for accuracy. The list below reflects the updated medication list. Comments regarding how patient may be taking medications differently can be found in the Admit Orders Activity Prior to Admission Medications Prescriptions Chart / Pt Reported? DILT-XR 180 mg 24 hr capsule Yes Sig: Take 1 capsule (180 mg) by mouth once daily. (Morning) apixaban (Eliquis) 5 mg tablet Yes Sig: Take 1 tablet (5 mg) by mouth every 12 hours. aspirin 81 mg EC tablet Yes Sig: Take 1 tablet (81 mg) by mouth once daily in the morning. atorvastatin (Lipitor) 40 mg tablet Yes Sig: Take 1 tablet (40 mg) by mouth once daily at bedtime. azaTHIOprine (Imuran) 50 mg tablet Yes Sig: Take 1 tablet (50 mg) by mouth once daily. (Morning) magnesium oxide (Mag-Ox) 400 mg (241.3 mg magnesium) tablet Yes Sig: Take 1 tablet (400 mg) by mouth once daily. (Midday) pantoprazole (ProtoNix) 20 mg EC tablet Yes Sig: Take 1 tablet (20 mg) by mouth twice a day. polyethylene glycol (Glycolax, Miralax) 17 gram packet Yes Sig: Take 17 g by mouth every other day if needed. predniSONE (Deltasone) 5 mg tablet Yes Sig: Take 1 tablet (5 mg) by mouth once daily in the morning. rOPINIRole (Requip) 1 mg tablet Yes Sig: Take 1 tablet (1 mg) by mouth once daily at bedtime. sodium bicarbonate 650 mg tablet Yes Sig: Take 1 tablet (650 mg) by mouth 3 times a day. --> Not taking, unsure if should continue (no refills) sodium chloride 1,000 mg tablet Yes Sig: Take 1 tablet (1 g) by mouth 3 times a day. --> Not taking, unsure if should continue (no refills) sulfamethoxazole-trimethoprim (Bactrim) 400-80 mg tablet Yes Sig: Take 1 tablet by mouth once daily in the morning. tacrolimus (Prograf) 0.5 mg capsule Yes Sig: Take 0.5 mg by mouth 2 times a day. tamsulosin (Flomax) 0.4 mg 24 hr capsule Yes Sig: Take 1 capsule (0.4 mg) by mouth 2 times a day. The list below reflects the updated allergy list. Please review each documented allergy for additional clarification and justification. Allergies Reviewed by Dodie Helton RN on 05/25/2023 Severity Reactions Comments Cephalexin Medium Hives, Rash, Headache headache Other reaction(s): Unknown Reaction headache Tobramycin Medium Rash Other Reaction(s): pain rash Pain in groin and rectum area Other Reaction(s): pain rash Pain in groin and rectum area Meperidine Not Specified Dizziness [place] weird Other reaction(s): Other: See Comments, Unknown Reaction dizziness Erythromycin Low Rash headache Other reaction(s): Other: See Comments headache Penicillins Low Hives, Rash At 8 months old, swelling and hives. Patient declines M2B at discharge. Pharmacy has been updated to: [facility], Sources used to complete the med history include: Pt Interview at bedside with visitor (good historians, had list) Epic Dispense Report (Pharmacy Fill History) [facility] Ambulatory Medication List 04/21/23 Discharge Summary Below are additional concerns with the patient's DATA SYSTEMS MANAGER list: At time of interview, unsure if pt being d/c'ed or CDU. Med Rec completed in case medications are warranted due to continued admission. Sanju Guerrero PharmD, [facility] Transitions of Care Pharmacist Medication reconciliation complete Please reach out via [employer] Chat for questions, or if no response call [employer] or weipass. [facility]s Ambulatory and Retail Services [facility] Work Phone: [phone]) 486-731403-12-2024 Hospital Discharge instructions* Discharge Instructions* Shiva Mcgill MD - 05/25/2023 9:09 PM EDT Your initial EKG today showed frequent PVCs, the repeat was normal. Take your magnesium supplementsat home as previously prescribed. Follow-up with your flying shear operator. Discussed with them your symptoms, as they may want to arrange for outpatient cardiac monitoring. If you have recurrence of symptoms, especially if you start to develop chest pain or trouble breathing please return to your nearest emergency department. * Attachments The following attachments cannot be sent through Care Everywhere. * Low Magnesium Level (Mexican) * Ventricular premature beats (Mexican) [facility] Work Phone: [phone]) 613-582703-12-2024 Emergency department Note* Dodie Helton, RN - 05/25/2023 4:31 PM EDT Pt presents to the ED from his doctors office where they told him he had an irregular HR. PMH of R kidney transplant 2013 on immunosuppressive therapy, afib/flutter on flecainide/diltiazem, complicated diverticulitis with pericolonic abscess s/p IR drain and laparoscopic sigmoid resection/end [place]ost [place] Jan 2023, [place]. Pt states that he has had some intermittent SOB but denies CP documented in this [facility] Work Phone: [phone]) 291-738803-12-2024 Emergency department Triage note* Dodie Helton RN - 05/25/2023 4:31 PM EDT Pt presents to the ED from his doctors office where they told him he had an irregular HR. PMH of R kidney transplant 2012 on immunosuppressive therapy, afib/flutter on flecainide/diltiazem, complicated diverticulitis with pericolonic abscess s/p IR drain and laparoscopic sigmoid resection/end colost [place] Jan 2023, [place]. Pt states that he has had some intermittent SOB but denies CP [facility] Work Phone: [phone]) 904-239103-12-2024 History and physical note* Liz Lorenzana PA-C - 05/25/2023 2:00 PM EDT History Of Present Illness Jagruti Esparza is a 67 y.o. male presenting to clinic for removal of tunneled PICC line. Tunneled PICC initially placed on 04/19/23, antibiotic course completed and patient presents today for removal. Past Medical History Past Medical History: Diagnosis Date PONV (postoperative nausea and vomiting) Surgical History Past Surgical History: Procedure Laterality Date CARDIAC CATHETERIZATION N/A 03/02/2023 Procedure: Left Heart Cath; Surgeon: Leonardo Welch MD; Location: [address] Cardiac Line Installer; Service: Cardiovascular; Laterality: N/A; COLOSTOMY CT GUIDED IMAGING FOR ABSCESS DRAIN 01/11/2023 CT GUIDED IMAGING FOR ABSCESS DRAIN 01/11/2023 Jerome Farrell MD [facility] [place] CT GALLBLADDER SURGERY OTHER SURGICAL HISTORY 12/25/2020 Arteriovenous fistula creation procedure OTHER SURGICAL HISTORY 12/25/2020 Neck surgery OTHER SURGICAL HISTORY 12/25/2020 Kidney transplantation OTHER SURGICAL HISTORY 12/25/2020 Facial surgery OTHER SURGICAL HISTORY 12/25/2020 Vasectomy OTHER SURGICAL HISTORY 07/11/2021 Colonoscopy complete for polypectomy Social History He reports that he has never smoked. He has never used smokeless tobacco. He reports that he does not currently use alcohol. He reports that he does not use drugs. Family History Family History Problem Relation Name Age of Onset Diabetes type I Mother Other (malignant neoplasm of colon) Mother Other (high serum cholestanol) Mother Other (heart problem) Father Other (CABG) Father Other (cardiovascular disease) Father Allergies Cephalexin, Tobramycin, Meperidine, Erythromycin, and Penicillins Review of Systems Constitutional: Negative. HENT: Negative. Eyes: Negative. Respiratory: Negative. Cardiovascular: Negative. Gastrointestinal: Negative. Genitourinary: Negative. Neurological: Positive for weakness. Psychiatric/Behavioral: Negative. Physical Exam Constitutional: General: He is not in acute distress. HENT: Head: Normocephalic. Mouth/Throat: Mouth: Mucous membranes are moist. Eyes: Conjunctiva/sclera: Conjunctivae normal. Cardiovascular: Rate and Rhythm: Normal rate. Pulmonary: Effort: Pulmonary effort is normal. No respiratory distress. Abdominal: General: There is no distension. Palpations: Abdomen is soft. Comments: R chest tunneled PICC Cholecystostomy drain present Musculoskeletal: Comments: RUE fistula Generalized weakness and deconditioning, arrived in wheelchair, required 4x assist to exam table Skin: General: Skin is warm and dry. Neurological: Mental Status: He is alert and oriented to person, place, and time. Mental status is at baseline. Psychiatric: Mood and Affect: Mood normal. Behavior: Behavior normal. Last Recorded Vitals There were no vitals taken for this visit. Relevant Results Assessment/Plan Active Problems: There are no active Hospital Problems. Uneventful removal of tunneled PICC line, please see post-procedure note. I spent 30 minutes in the professional and overall care of this patient. Liz Lorenzana PA-C [facility] Work Phone: [phone] 370-861703-12-2024 History and physical note* Liz Lorenzana PA-C - 05/25/2023 2:00 PM EDT History Of Present Illness Jagruti Esparza is a 67 y.o. male presenting to clinic for removal of tunneled PICC line. Tunneled PICC initially placed on 04/19/23, antibiotic course completed and patient presents today for removal. Past Medical History Past Medical History: Diagnosis Date PONV (postoperative nausea and vomiting) Surgical History Past Surgical History: Procedure Laterality Date CARDIAC CATHETERIZATION N/A 03/02/2023 Procedure: Left Heart Cath; Surgeon: Leonardo Welch MD; Location: [address] Cardiac Line Installer; Service: Cardiovascular; Laterality: N/A; COLOSTOMY CT GUIDED IMAGING FOR ABSCESS DRAIN 01/11/2023 CT GUIDED IMAGING FOR ABSCESS DRAIN 01/11/2023 Jerome Farrell MD [facility] [place] CT GALLBLADDER SURGERY OTHER SURGICAL HISTORY 12/25/2020 Arteriovenous fistula creation procedure OTHER SURGICAL HISTORY 12/25/2020 Neck surgery OTHER SURGICAL HISTORY 12/25/2020 Kidney transplantation OTHER SURGICAL HISTORY 12/25/2020 Facial surgery OTHER SURGICAL HISTORY 12/25/2020 Vasectomy OTHER SURGICAL HISTORY 07/11/2021 Colonoscopy complete for polypectomy Social History He reports that he has never smoked. He has never used smokeless tobacco. He reports that he does not currently use alcohol. He reports that he does not use drugs. Family History Family History Problem Relation Name Age of Onset Diabetes type I Mother Other (malignant neoplasm of colon) Mother Other (high serum cholestanol) Mother Other (heart problem) Father Other (CABG) Father Other (cardiovascular disease) Father Allergies Cephalexin, Tobramycin, Meperidine, Erythromycin, and Penicillins Review of Systems Constitutional: Negative. HENT: Negative. Eyes: Negative. Respiratory: Negative. Cardiovascular: Negative. Gastrointestinal: Negative. Genitourinary: Negative. Neurological: Positive for weakness. Psychiatric/Behavioral: Negative. Physical Exam Constitutional: General: He is not in acute distress. HENT: Head: Normocephalic. Mouth/Throat: Mouth: Mucous membranes are moist. Eyes: Conjunctiva/sclera: Conjunctivae normal. Cardiovascular: Rate and Rhythm: Normal rate. Pulmonary: Effort: Pulmonary effort is normal. No respiratory distress. Abdominal: General: There is no distension. Palpations: Abdomen is soft. Comments: R chest tunneled PICC Cholecystostomy drain present Musculoskeletal: Comments: RUE fistula Generalized weakness and deconditioning, arrived in wheelchair, required 4x assist to exam table Skin: General: Skin is warm and dry. Neurological: Mental Status: He is alert and oriented to person, place, and time. Mental status is at baseline. Psychiatric: Mood and Affect: Mood normal. Behavior: Behavior normal. Last Recorded Vitals There were no vitals taken for this visit. Relevant Results Assessment/Plan Active Problems: There are no active Hospital Problems. Uneventful removal of tunneled PICC line, please see post-procedure note. I spent 30 minutes in the professional and overall care of this patient. Liz Lorenzana PA-C [facility] Work Phone: 1(911) 160-723403-12-2024 Miscellaneous Notes* Post-Procedure Note - Liz Lorenzana PA-C - 05/25/2023 2:00 PM EDT INTERVENTIONAL RADIOLOGY ADVANCED PRACTICE PROCEDURE [facility] The existing skin site over the tunneled catheter insertion site was prepped and draped with maximal sterile manner. With gentle traction, the catheter cuff was externalized and the catheter leading to the jugular vein was completely removed. Hemostasis was obtained using manual compression at the internal jugular vein access site. The incision site was covered with a sterile dressing and tegaderm was subsequently applied. There were no immediate or post- procedural complications. [facility] Work Phone: 1(466) 523-119303-12-2024 Note* Post-Procedure Note - Liz Lorenzana PA-C - 05/25/2023 2:00 PM EDT INTERVENTIONAL RADIOLOGY ADVANCED PRACTICE PROCEDURE [facility] The existing skin site over the tunneled catheter insertion site was prepped and draped with maximal sterile manner. With gentle traction, the catheter cuff was externalized and the catheter leading to the jugular vein was completely removed. Hemostasis was obtained using manual compression at the internal jugular vein access site. The incision site was covered with a sterile dressing and tegaderm was subsequently applied. There were no immediate or post- procedural complications. [facility] Work Phone: 1([phone]) 332-893203-12-2024 Note* Post-Procedure Note - Liz Lorenzana PA-C - 05/25/2023 2:00 PM EDT INTERVENTIONAL RADIOLOGY ADVANCED [facility] The existing skin site over the tunneled catheter insertion site was prepped and draped with maximal sterile manner. With gentle traction, the catheter cuff was externalized and the catheter leading to the jugular vein was completely removed. Hemostasis was obtained using manual compression at the internal jugular vein access site. The incision site was covered with a sterile dressing and tegaderm was subsequently applied. There were no immediate or post- procedural complications. [facility] Work Phone: [phone]) [phone] Nurse Note* Fausto Álvarez RN - 04/21/2023 4:18 PM EST Discharge education was given to both patient and his . Transport took him with stretcher. * Fausto Álvarez RN - 04/18/2023 4:24 PM EST Patient has been hesitant on turning due to pain. I educated patient on the importance of turning every 2 hours as his Butt and back has areas of redness and sluggish blanching. Patient needs the motivation to turn for assessment and maintenance. Spouse has been educated, patient understands q2 turns, wound care consult is open. Mepilex boarderplaced atop over soft scabbed area. Mepilex heart placed on patients sacral/butt area. * Chanel Savage RN - 04/14/2023 7:00 PM EST 1906: Bedside RN report received 1999, 0000, 0400: Hand hygiene performed 2100: Minimal urine output over 3 hours. Jyotsna Mccoy notified, See orders Pt refusing q2 turn and repositioning. Education provided on the importance of turning off sacrum, pt refused to turn. 0000: During bath, RN saw Bile drain leaking at site. RN notified Jyotsna Mccoy 0713: Bedside RN report given * Krista Carson RN - 04/13/2023 9:21 PM EST Patient arrived to unit 2121. 1008: SICU team (MD Jyotsna) notified of patient BP. MAPs 55-61 since arrival. Request orders for labs. No new orders at this time. 1015 team at bedside. documented in this [facility] Work Phone: 1([phone]) 611-223902-07-2024 History of Present illness Narrative* Katie Adams RN - 04/21/2023 12:40 PM EST 04/19/23 1200 Discharge Planning Living Arrangements Spouse/significant other Support Systems Spouse/significant other Type of Residence Private residence Who is requesting discharge planning? Provider Home or Post Acute Services In home services Type of Home Care Services Home OT;Home PT;Home nursing visits;DME or oxygen Patient expects to be discharged to: home Does the patient need discharge transport arranged? No [facility] coordination needed? No TCC Note Plan per Medical/Surgical Team: day 6 of admission presenting with Scrotal abscess. Status: inpatient Payor Source: medicare Discharge disposition: [facility], DME Expected date of discharge: 04/20 Barriers: none at this time Preferred home care agency: [facility] TCC met with patient's at bedside to discuss antibiotic cost. Demographics and insurance verifed with patient. TCC provided with phone number to [facility]. Patient and are agreeable on cost. TCC reached out to [facility] for SOC. [facility] stated SOC will be 04/21 if patient discharges tomorrow. Will continue to follow patient for any discharge needs. 04/20- TCC met with patient and to discuss anticipated discharge needs. [facility] and [facility] aware of discharge today. TCC sent order for Dimitris lift to [facility] [phone] fax [phone]. TCC arranged stretcher transport home for patient through [facility]. TCC will continue to follow patient for discharge needs. 04/21- TCC set up stretcher transport to patients home for 2pm through [facility]. [facility] ambulance picked up. TCC notified [facility] and [facility] of plans to discharge patient. TCC will continue to follow patient for discharge needs. 04/21/23 at 12:40 PM - KATIE ADAMS RN * Vesta Andrews MA - 04/20/2023 12:00 PM EST Jagruti Esparza is a 67 y.o. male on day 7 of admission presenting with Scrotal abscess. Subjective Patient was seen at bedside today during am rounds. No acute events overnight. Pain is well controlled. He denies nausea, vomiting, fever/chills, chest pain/SOB or worsening abdominal or scrotal pain. Dressing was changed this am with participation. Objective Physical Exam General: Laying in bed. NAD. Eyes: EOMI ENMT: no apparent injury, no lesions seen, MMM Head/neck: NCAT Cardiac: regular rate in chart Pulm: normal respiratory effort on NC GI: soft, NT/ND, end colostomy with stool and gas output, perc kerline with drainage : uncircumcised phallus with bowers in place draining CYU, scrotum with large incision loosely approximated with nylon sutures and packed with kerlix, no further purulent drainage noted, no hemorrhage noted, dressing changed at bedside. Msk: DARDEN Extremities: DARDEN at baseline Skin: pallor, decubitus ulcers noted on sacrum and mid back covered with mepilex Neuro: AOx3 Psych: appropriate mood and behavior Last Recorded Vitals Blood pressure 118/69, pulse 83, temperature 35.7 C (96.3 F), temperature source Temporal, resp. rate 18, height 1.829 m (6'), weight 79.2 kg (174 lb 9.7 oz), SpO2 98 %. Intake/Output last 3 Shifts: I/O last 3 completed shifts: In: 0 (0 mL/kg) Out: 2510 (31.7 mL/kg) [Urine:2450 (0.9 mL/kg/hr); Drains:60] Weight: 79.2 kg Relevant Results Scheduled medications acetaminophen, 650 mg, oral, TID apixaban, 5 mg, oral, BID aspirin, 81 mg, oral, Daily atorvastatin, 40 mg, oral, Nightly dilTIAZem CD, 180 mg, oral, Daily ertapenem, 1 g, intravenous, q24h fluconazole, 200 mg, oral, BID insulin lispro, 0-5 Units, subcutaneous, TID with meals pantoprazole, 40 mg, oral, Daily before breakfast polyethylene glycol, 17 g, oral, Daily predniSONE, 5 mg, oral, Daily tacrolimus, 0.5 mg, oral, q12h TREMAINE Continuous medications PRN medications PRN medications: dextrose 10 % in water (D10W), dextrose, glucagon, hydrOXYzine HCL, oxyCODONE, oxyCODONE Results for orders placed or performed during the hospital encounter of 04/13/23 (from the past 24 hour(s)) POCT GLUCOSE Result Value Ref Range POCT Glucose 98 74 - 99 mg/dL CBC Result Value Ref Range WBC 6.6 4.4 - 11.3 x10*3/uL nRBC 0.0 0.0 - 0.0 /100 WBCs RBC 3.27 (L) 4.50 - 5.90 x10*6/uL Hemoglobin 8.6 (L) 13.5 - 17.5 g/dL Hematocrit 26.1 (L) 41.0 - 52.0 % MCV 80 80 - 100 fL MCH 26.3 26.0 - 34.0 pg MCHC 33.0 32.0 - 36.0 g/dL RDW 24.2 (H) 11.5 - 14.5 % Platelets 249 150 - 450 x10*3/uL Renal Function Panel Result Value Ref Range Glucose 79 74 - 99 mg/dL Sodium 138 136 - 145 mmol/L Potassium 4.4 3.5 - 5.3 mmol/L Chloride 111 (H) 98 - 107 mmol/L Bicarbonate 23 21 - 32 mmol/L Anion Gap 8 (L) 10 - 20 mmol/L Urea Nitrogen 10 6 - 23 mg/dL Creatinine 0.41 (L) 0.50 - 1.30 mg/dL eGFR >90 >60 mL/min/1.73m*2 Calcium 10.6 8.6 - 10.6 mg/dL Phosphorus 2.4 (L) 2.5 - 4.9 mg/dL Albumin 2.3 (L) 3.4 - 5.0 g/dL Tacrolimus level Result Value Ref Range Tacrolimus 5.2 <=15.0 ng/mL POCT GLUCOSE Result Value Ref Range POCT Glucose 78 74 - 99 mg/dL POCT GLUCOSE Result Value Ref Range POCT Glucose 97 74 - 99 mg/dL Lower extremity venous duplex bilateral Result Date: 04/15/2023 Preliminary Cardiology Report [place] [address] and Preliminary Vascular Lab Report [facility] LOWER EXTREMITY VENOUS DUPLEX BILATERAL Patient Name: JAGRUTI Husain Jere Physician: [id number] Yudith Dotson MD, VILMA VELAVI StudyDate: 04/15/2023 Ordering [id number] PETER STAHL Physician: MRN/PID: [id number] Technologist: Tucker Morales RVNgoc Technologist 2: Date of /Age: 10 1955 Gender: M Admission Status: Inpatient Location [facility] Performed: Diagnosis/ICD: Localized (leg) edema-R60.0 Procedure/CPT: 12586 Peripheral venous duplex scan for DVT complete PRELIMINARY CONCLUSIONS: Right Lower Venous: No evidence of acute deep vein thrombus visualized in the right lower extremity. Edema noted in the calf. Left Lower Venous: No evidence of acute deep vein thrombus visualized in the left lower extremity. Edema noted in the calf. Imaging & Doppler Findings: Right Compressible Thrombus Flow Distal External Iliac None Spontaneous/Phasic CFV Yes None Spontaneous/Phasic PFV Yes None FV Proximal Yes None Spontaneous/Phasic FV Mid Yes None FV Distal Yes None Popliteal Yes None Spontaneous/Phasic Peroneal Yes None PTV Yes None Left Compress Thrombus Flow Distal External Iliac None Spontaneous/Phasic CFV Yes None Spontaneous/Phasic PFV Yes None FV Proximal Yes None Spontaneous/Phasic FV Mid Yes None FV Distal Yes None Popliteal Yes None Spontaneous/Phasic Peroneal Yes None PTV Yes None VASCULAR PRELIMINARY REPORT completed by Tucker Morales RVT on 04/15/2023 at 2:20:39 PM Final XR chest 1 view Result Date: 04/15/2023 Interpreted By: Sekou Wilson, STUDY: XR CHEST 1 VIEW; 04/15/2023 6:53 am INDICATION: Signs/Symptoms:ICU daily. COMPARISON: 04/14/2023. ACCESSION NUMBER(S): [id number] ORDERING CLINICIAN: JYOTSNA MCCYO FINDINGS: CARDIOMEDIASTINAL SILHOUETTE: Cardiomegaly versus pericardial effusion. Prominence of central pulmonary arteries and correlate with any concern for pulmonary artery hypertension LUNGS:Slight improvement in basilar atelectasis. Continued left basilar atelectasis and effusion. ABDOMEN: No remarkable upper abdominal findings. BONES: No acute osseous changes. 1. Slight improvement in right basilar aeration with continued left basilar atelectasis/effusion. 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 Vitals stable. Dressing changed at bedside with participating. Plan for IR PICC placement for homegoing IV antibiotics Recommendations: Neuro: - Scheduled Tylenol, PRN Oxycodone for pain, PRN Dilaudid for breakthrough pain. Hydroxzine PRN foranxiety Cardiac: - Eliquis 5 mg BID - Diltiazem 180mg - ASA 81 - Atorvastatin - Maintain MAP >65 - Continue to monitor BP Pulm: - Encourage IS - Maintain O2 >88% GI: Perc kerline in place - Cardiac diet - Bowel regimen - PRN Zofran for nausea : S/p kidney transplant - Prednisone/Tacrolimus - Daily BMP - Strict I&Os - Replete lytes PRN HEME: - Trend CBC daily - Apixaban/ASA - Transfusion not indicated at this time Endo: - SSI ID: Fourniers - Wound packing with saline soaked gauze BID - ID Following - 1g IV daily ertapenem, anticipate 2-4 weeks depending on response - Fluconazole 200 mg PO BID for 2-4 weeks - Tunneled PICC for home going therapy on 04/19/2023. DVT Ppx: - Eliquis -SCD Dispo: Anticipate DC to home care arranged, likely Wednesday. Vesta Andrews MD, MS Urology Director Of Payroll Urology [phone] * Katie Adams RN - 04/20/2023 11:07 AM EST 04/19/23 1200 Discharge Planning Living Arrangements Spouse/significant other Support Systems Spouse/significant other Type of Residence Private residence Who is requesting discharge planning? Provider Home or Post Acute Services In home services Type of Home Care Services Home OT;Home PT;Home nursing visits;DME or oxygen Patient expects to be discharged to: home Does the patient need discharge transport arranged? No RoundTrip coordination needed? No TCC Note Plan per Medical/Surgical Team: day 6 of admission presenting with Scrotal abscess. Status: inpatient Payor Source: medicare Discharge disposition: C, [place] Expected date of discharge: 04/20 Barriers: none at this time Preferred home care agency: [facility] TCC met with patient's at bedside to discuss antibiotic cost. Demographics and insurance verifed with patient. TCC provided with phone number to [facility]. Patient and are agreeable on cost. TCC reached out to [facility] for SOC. C stated SOC will be 04/21 if patient discharges tomorrow. Will continue to follow patient for any discharge needs. 04/20- TCC met with patient and to discuss anticipated discharge needs. [facility] aware of discharge today. TCC sent order for Dimitris lift to [facility] [phone] fax [phone]. TCC arranged stretcher transport home for patient through [facility]. TCC will continue to follow patient for discharge needs. 04/20/23 at 11:07 AM - KATIE ADAMS RN * Jimenez Junior MD - 04/19/2023 5:34 PM EST ID UPDATE PATIENT OFF FLOOR AND UNABLE TO SEE PATIENT NOT SEEN BUT PLANS DISCUSSED WITH UROLOGY TEAMS Labs Results from last 72 hours Lab Units 04/19/2353204/18/2353204/17/23 0237 WBC AUTO x10*3/uL 8.0 8.0 7.5 HEMOGLOBIN g/dL 8.8* 8.8* 8.3* HEMATOCRIT % 27.7* 27.2* 26.9* PLATELETS AUTO x10*3/uL 295 288 259 Results from last 72 hours Lab Units 04/19/2353204/18/2353204/17/23 0237 SODIUM mmol/L 137 136 136 POTASSIUM mmol/L 4.3 4.4 4.4 CHLORIDE mmol/L 111* 109* 112* CO2 mmol/L 21 24 22 BUN mg/dL 12 12 12 CREATININE mg/dL 0.40* 0.37* 0.41* GLUCOSE mg/dL 90 105* 108* CALCIUM mg/dL 10.6 10.2 10.2 ANION GAP mmol/L 9* 7* <7* EGFR mL/min/1.73m*2 >90 >90 >90 PHOSPHORUS mg/dL 2.3* 2.5 2.0* Results from last 72 hours Lab Units 04/19/2353204/18/2333 04/17/23 0237 ALBUMIN g/dL 2.3* 2.4* 2.3* Estimated Creatinine Clearance: 125 mL/min (A) (by C-G formula based on SCr of 0.4 mg/dL (L)). No results found for: CRP Microbiology Susceptibility data from last 14 days. Collected Specimen Info Organism Amoxicillin/Clavulanate Ampicillin Ampicillin/Sulbactam Aztreonam Cefazolin Cefepime Cefotaxime Ceftazidime Ceftriaxone Cefuroxime Ciprofloxacin Ertapenem Gentamicin Levofloxacin 04/13/23 Swab from ABSCESS Slime parapsilosis 04/13/23 Swab from ABSCESS Escherichia coli 04/13/23 Swab from ABSCESS Slime parapsilosis 04/13/23 Swab from ABSCESS Escherichia coli S R I R R R R R R R R S S R Collected Specimen Info Organism Meropenem Moxifloxacin Piperacillin/Tazobactam Trimethoprim/Sulfamethoxazole 04/13/23 Swab from ABSCESS Slime parapsilosis 04/13/23 Swab from ABSCESS Escherichia coli 04/13/23 Swab from ABSCESS Slime parapsilosis 04/13/23 Swab from ABSCESS Escherichia coli S R S R Assessment/Plan usceptibility data from last 14 days. Collected Specimen Info Organism Amoxicillin/Clavulanate Ampicillin Ampicillin/Sulbactam Aztreonam Cefazolin Cefepime Cefotaxime Ceftazidime Ceftriaxone Cefuroxime Ciprofloxacin Ertapenem Gentamicin Levofloxacin 04/13/23 Swab from ABSCESS Slime parapsilosis 04/13/23 Swab from ABSCESS Escherichia coli 04/13/23 Swab from ABSCESS Slime parapsilosis 04/13/23 Swab from ABSCESS Escherichia coli S R I R R R R R R R R S S R Collected Specimen Info Organism Meropenem Moxifloxacin Piperacillin/Tazobactam Trimethoprim/Sulfamethoxazole 04/13/23 Swab from ABSCESS Slime parapsilosis 04/13/23 Swab from ABSCESS Escherichia coli 04/13/23 Swab from ABSCESS Slime parapsilosis 04/13/23 Swab from ABSCESS Escherichia coli S R S R Assessment/Plan 04/13 UCx NG 04/13 scrotal abscess swab cx #1: E. Coli (susceptible to meropenem, ertapenem and gentamicin). Amox-clav pneumonic acid or Zosynnot recommended for ESBL E. 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 Coli 04/13 Testicle wound cx from OSH: E. Faecalis S vanc, ampicillin, daptomycin, ESBL E. Coli S Unasyn,Zosyn, Ertapenem, Cefta/Naman and Gentamicin, and scant CoNS 02/25 bile aspirate fluid cx: ESBL E. 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 Coli) on 02/2023, and recent ND who preesnted to OSH due to 4 days of progressive erythema, pain, swelling with pustular discharge on his scrotum. He doesn't recall any trauma or wound on his scrotum before this. He has hydrocele. OSH CT scan showed largeabscess and was transferred on 04/13 to [facility] . He underwent reversal of apixaban and had emergent surgery with I/D, right orchiectomy (04/14). Operative finding was described as gush of purulent dishwater fluid . Patient on daptomycin, metropenem and clindamycin. ID was consulted for dahiana abscess antibiotic management. ID problems: # Infected right scrotal hydrocele and scrotal wall abscess s/p I&D and R orchiectomy (04/13/2023) - OSH wound cx positive for ESBL E coli, E. Faecalis and scant CoNS. - 04/13/23 OR cx positive for E. Coli and Slime parapsilosis Discussed with primary team who did not feel that this represented true Dahiana's gangrene Had known hydrocele which at this time was notably infected Although laboratory shows ESBL (extended beta-lactamase pression ) E. coli is susceptible to amox-clav in vitro, this agent is not indicated for treatment of ESBL E. coli patient clinically. Unreliable activity in the clinical setting with an ESBL ESBL E. coli the primary pathogen though scant coag negative staph and Enterococcus faecalis also reported (outside hospital culture). Not certain of what was cultured at outside hospital. Coag negative staph and a faecalis could represent normal skin franklin from the inguinal, scrotal area. These organisms were not grown from operative samples but E. coli was. Will focus therapy on E. coli. Ertapenem is not typically first-line for treatment of enterococcus but may be helpful in polymicrobial infections and may have some activity against Enterococcus faecalis, especially those which areampicillin susceptible. Otherwise would need to use daptomycin and or vancomycin to treat. Linezolid also an alternative for enterococcus but not optimal in the setting of anemia and with risk for leukopenia. THUS, I elected to focus on E. coli as a principal pathogen. I am told that surgical bed looks healthy. It may take a little bit longer to heal in the setting of suppression. So it may be difficult to predict duration of therapy but anticipate 2 to 4 weeks. Would reevaluate at 2-week jona and then determine whether or not additional IV medications needed. Thus, I also elected to direct therapy to the Slime parapsilosis which typically is susceptible to fluconazole (would use 400 mg daily) #Allergy to cephalexin, tobramycin, erythromycin and pencillin/amoxicillin, - all rash Multiple related agents. Would not use these agents unless evaluated and / or cleared by Allergy (though risk low) Recommendations: 1. 04/17/2023 discontinue daptomycin 2. 04/17/2023 discontinue meropenem 3. 04/17/2023 began ertapenem, 1 g IV every 24 hours Anticipate 2 to 4 weeks therapy depending on clinical response and granulation of open scrotal wound. -2-week stop date would be 04/27/2023 -4-week stop date would be ### might have to adjust date depending on when wound is closed ### ### I am leaning toward continuing IV ertapenem and p.o. fluconazole for total of 4 weeks which will hopefully cover timeframe for follow-up with urology and ID. This is particularly important regarding urology follow-up and closure of wound. Will discuss with urology (Dr. Bryan) when patient has follow-up 05/02/2023 ### 4. 04/17/23 began oral fluconazole 100 mg (2 x 200 mg tablet) p.o. daily. Anticipate 2 to 4 weeks therapy depending clinical response and granulation of open scrotal wound 5. Patient had tunneled PICC line placement scheduled for today 04/19/2023. Patient will need referral to IR for PICC line removal after completion of IV therapy. If transplant wants to retain tunneledline then they will need to assume care of PICC after completing IV treatments Regarding discharge: - Patient lives in [facility] [place] [facility]. It may be difficult for patient to follow-up in person with infectious diseases. Dr. Junior can field questions regarding PICC line and duration of therapy, in consultation with Urology. - Dr. Junior will arrange for telephone visit in 2 weeks - Please obtain CBC and BMP weekly and FAX LAB report to Dr. Junior at [phone] ID Team B will sign off Jimenez Junior MD * Katie Adams RN - 04/19/2023 12:31 PM EST 04/19/23 1200 Discharge Planning Living Arrangements Spouse/significant other Support Systems Spouse/significant other Type of Residence Private residence Who is requesting discharge planning? Provider Home or Post Acute Services In home services Type of Home Care Services Home OT;Home PT;Home nursing visits;DME or oxygen Patient expects to be discharged to: home Does the patient need discharge transport arranged? No RoundTrip coordination needed? No TCC Note Plan per Medical/Surgical Team: day 6 of admission presenting with Scrotal abscess. Status: inpatient Payor Source: medicare Discharge disposition: [facility], [place] Expected date of discharge: 04/20 Barriers: none at this time Preferred home care agency: [facility] TCC met with patient's at bedside to discuss antibiotic cost. Demographics and insurance verifed with patient. TCC provided with phone number to [facility]. Patient and are agreeable on cost. TCC reached out to [facility] [facility] for SOC. [facility] stated SOC will be 2/ if patient discharges tomorrow. Will continue to follow patient for any discharge needs. 04/19/23 at 12:35 PM - KATIE ADAMS RN * Jameson Payton MD - 04/19/2023 8:33 AM EST Jagruti Esparza is a 67 y.o. male on day 6 of admission presenting with Scrotal abscess. Subjective Pain well controlled. Patient denies n/v, fever/chills, chest pain/SOB or worsening abdominal or scrotal pain. Dressing change this AM with participation. Objective Physical Exam General: Laying in bed. NAD. Eyes: EOMI ENMT: no apparent injury, no lesions seen, MMM Head/neck: NCAT Cardiac: regular rate in chart Pulm: normal respiratory effort on NC GI: soft, NT/ND, end colostomy with stool and gas output, perc kerline with drainage : uncircumcised phallus with bowers in place draining CYU, scrotum with large incision loosely approximated with nylon sutures and packed with kerlix, no further purulent drainage noted, no hemorrhage noted, dressing changed at bedside. Msk: DARDEN Extremities: DARDEN at baseline Skin: pallor, decubitus ulcers noted on sacrum and mid back covered with mepilex Neuro: AOx3 Psych: appropriate mood and behavior Last Recorded Vitals Blood pressure 129/68, pulse 83, temperature 36.8 C (98.2 F), temperature source Temporal, resp. rate 16, height 1.829 m (6'), weight 79.2 kg (174 lb 9.7 oz), SpO2 98 %. Intake/Output last 3 Shifts: I/O last 3 completed shifts: In: 100 (1.3 mL/kg) [P.O.:100] Out: 1850 (23.4 mL/kg) [Urine:1650 (0.6 mL/kg/hr); Drains:175; Stool:25] Weight: 79.2 kg Relevant Results Scheduled medications acetaminophen, 650 mg, oral, TID [Held by provider] apixaban, 5 mg, oral, BID aspirin, 81 mg, oral, Daily atorvastatin, 40 mg, oral, Nightly dilTIAZem CD, 180 mg, oral, Daily ertapenem, 1 g, intravenous, q24h fluconazole, 200 mg, oral, BID insulin lispro, 0-5 Units, subcutaneous, TID with meals pantoprazole, 40 mg, oral, Daily before breakfast polyethylene glycol, 17 g, oral, Daily predniSONE, 5 mg, oral, Daily tacrolimus, 0.5 mg, oral, q12h TREMAINE Continuous medications PRN medications PRN medications: dextrose 10 % in water (D10W), dextrose, glucagon, hydrOXYzine HCL, oxyCODONE, oxyCODONE Results for orders placed or performed during the hospital encounter of 04/13/23 (from the past 24 hour(s)) POCT GLUCOSE Result Value Ref Range POCT Glucose 120 (H) 74 - 99 mg/dL POCT GLUCOSE Result Value Ref Range POCT Glucose 121 (H) 74 - 99 mg/dL Type and screen Result Value Ref Range ABO TYPE A Rh TYPE POS ANTIBODY SCREEN NEG POCT GLUCOSE Result Value Ref Range POCT Glucose 117 (H) 74 - 99 mg/dL POCT GLUCOSE Result Value Ref Range POCT Glucose 119 (H) 74 - 99 mg/dL CBC Result Value Ref Range WBC 8.0 4.4 - 11.3 x10*3/uL nRBC 0.0 0.0 - 0.0 /100 WBCs RBC 3.47 (L) 4.50 - 5.90 x10*6/uL Hemoglobin 8.8 (L) 13.5 - 17.5 g/dL Hematocrit 27.7 (L) 41.0 - 52.0 % MCV 80 80 - 100 fL MCH 25.4 (L) 26.0 - 34.0 pg MCHC 31.8 (L) 32.0 - 36.0 g/dL RDW 24.1 (H) 11.5 - 14.5 % Platelets 295 150 - 450 x10*3/uL Renal Function Panel Result Value Ref Range Glucose 90 74 - 99 mg/dL Sodium 137 136 - 145 mmol/L Potassium 4.3 3.5 - 5.3 mmol/L Chloride 111 (H) 98 - 107 mmol/L Bicarbonate 21 21 - 32 mmol/L Anion Gap 9 (L) 10 - 20 mmol/L Urea Nitrogen 12 6 - 23 mg/dL Creatinine 0.40 (L) 0.50 - 1.30 mg/dL eGFR >90 >60 mL/min/1.73m*2 Calcium 10.6 8.6 - 10.6 mg/dL Phosphorus 2.3 (L) 2.5 - 4.9 mg/dL Albumin 2.3 (L) 3.4 - 5.0 g/dL Coagulation Screen Result Value Ref Range Protime 16.5 (H) 9.8 - 12.8 seconds INR 1.5 (H) 0.9 - 1.1 aPTT 33 27 - 38 seconds Lower extremity venous duplex bilateral Result Date: 04/15/2023 Preliminary Cardiology Report [place] [address] and Preliminary Vascular Lab Report [facility] US LOWER EXTREMITY VENOUS DUPLEX BILATERAL Patient Name: JAGRUTI Husain Jere Physician: [id number] Yudith Dotson MD, VILMA HAYNES StudyDate: 04/15/2023 Ordering [id number] PETER SOTOLeela DELATORREADÁNMONI Physician: MRN/PID: [id number] Technologist: Tucker Morales RVT Technologist 2: Date of /Age: 10 1955 Gender: M Admission Status: Inpatient Location [facility] Performed: Diagnosis/ICD: Localized (leg) edema-R60.0 Procedure/CPT: 26483 Peripheral venous duplex scan for DVT complete PRELIMINARY CONCLUSIONS: Right Lower Venous: No evidence of acute deep vein thrombus visualized in the right lower extremity. Edema noted in the calf. Left Lower Venous: No evidence of acute deep vein thrombus visualized in the left lower extremity. Edema noted in the calf. Imaging & Doppler Findings: Right Compressible Thrombus Flow Distal External Iliac None Spontaneous/Phasic CFV Yes None Spontaneous/Phasic PFV Yes None FV Proximal Yes None Spontaneous/Phasic FV Mid Yes None FV Distal Yes None Popliteal Yes None Spontaneous/Phasic Peroneal Yes None PTV Yes None Left Compress Thrombus Flow Distal External Iliac None Spontaneous/Phasic CFV Yes None Spontaneous/Phasic PFV Yes None FV Proximal Yes None Spontaneous/Phasic FV Mid Yes None FV Distal Yes None Popliteal Yes None Spontaneous/Phasic Peroneal Yes None PTV Yes None VASCULAR PRELIMINARY REPORT completed by Tucker Morales RVT on 04/15/2023 at 2:20:39 PM Final XR chest 1 view Result Date: 04/15/2023 Interpreted By: Sekou Wlison, STUDY: XR CHEST 1 VIEW; 04/15/2023 6:53 am INDICATION: Signs/Symptoms:ICU daily. COMPARISON: 04/14/2023. ACCESSION NUMBER(S): [id number] ORDERING CLINICIAN: JYOTSNA MCCOY FINDINGS: CARDIOMEDIASTINAL SILHOUETTE: Cardiomegaly versus pericardial effusion. Prominence of central pulmonary arteries and correlate with any concern for pulmonary artery hypertension LUNGS:Slight improvement in basilar atelectasis. Continued left basilar atelectasis and effusion. ABDOMEN: No remarkable upper abdominal findings. BONES: No acute osseous changes. 1. Slight improvement in right basilar aeration with continued left basilar atelectasis/effusion. 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 Vitals stable. Dressing changed at bedside with participating. Plan for IR PICC placement for homegoing IV antibiotics Recommendations: Neuro: - Scheduled Tylenol, PRN Oxycodone for pain, PRN Dilaudid for breakthrough pain. Hydroxzine PRN foranxiety Cardiac: - Eliquis 5 mg BID - Diltiazem 180mg - ASA 81 - Atorvastatin - Maintain MAP >65 - Continue to monitor BP Pulm: - Encourage IS - Maintain O2 >88% GI: Perc kerline in place - Cardiac diet - Bowel regimen - PRN Zofran for nausea : S/p kidney transplant - Prednisone/Tacrolimus - Daily BMP - Strict I&Os - Replete lytes PRN HEME: - Trend CBC daily - Apixaban/ASA - Transfusion not indicated at this time Endo: - SSI ID: Fourniers - Wound packing with saline soaked gauze BID - ID Following - 1g IV daily ertapenem, anticipate 2-4 weeks depending on response - Fluconazole 200 mg PO BID for 2-4 weeks - Will need tunneled PICC for home going therapy, planning on Wednesday 04/19 DVT Ppx: - Eliquis -SCD Dispo: Anticipate DC to home when PICC line placed and home antibiotics/home care arranged, likely Wednesday Jameson Payton MD Urology PGY-2 Adult Urology Pager: [phone] Pediatric Urology: [id number] * Jimenez Junior MD - 04/18/2023 10:50 AM EST Jagruti Esparza is a 67 y.o. male on day 5 of admission presenting with infected hydrocele requiringorchiectomy Subjective Now on . present Patient mentioned that urine collection device had leaked but not fixed and/or reapplied C/O lower back/sacral wound (but unable to view at this time since he had been repositioned alreadyand was comfortable Denied fever, chills, rigors, sob, cp or headache Objective Range of Vitals (last 24 hours) Heart Rate: [81-106] Temp: [35.7 C (96.3 F)-37.3 C (99.1 F)] Resp: [9-22] BP: (98-125)/(49-69) SpO2: [94 %-100 %] Daily Weight 04/15/23 : 79.2 kg (174 lb 9.7 oz) Body mass index is 23.68 kg/m . Physical Exam Pale complexion with dry flaking skin on forehead an nose Some chronic (per ) light pink macules on arms NO overt new rash Anterior chest is clear S1, S2. I did not hear a murmur Soft abdomen, Colostomy draining soft, semisolid dark stool External urinary collection device in place I did not examine scrotal wound today as dressing had already been changed NO report of change in scrotal wound per patient and his Antibiotics Ertapenem (INVanz) 1 g in sodium chloride 0.9% 50 mL IV Fluconazole (Diflucan) tablet 200 mg Relevant Results Labs Results from last 72 hours Lab Units 04/18/23 0533 04/17/23 0237 04/16/23 0246 WBC AUTO x10*3/uL 8.0 7.5 7.6 HEMOGLOBIN g/dL 8.8* 8.3* 7.9* HEMATOCRIT % 27.2* 26.9* 25.7* PLATELETS AUTO x10*3/uL 288 259 282 Results from last 72 hours Lab Units 04/18/2353204/17/2323604/16/23 1459 SODIUM mmol/L 136 136 138 POTASSIUM mmol/L 4.4 4.4 4.5 CHLORIDE mmol/L 109* 112* 111* CO2 mmol/L 24 22 21 BUN mg/dL 12 12 11 CREATININE mg/dL 0.37* 0.41* 0.52 GLUCOSE mg/dL 105* 108* 148* CALCIUM mg/dL 10.2 10.2 10.1 ANION GAP mmol/L 7* <7* 11 EGFR mL/min/1.73m*2 >90 >90 >90 PHOSPHORUS mg/dL 2.5 2.0* 2.9 Results from last 72 hours Lab Units 04/18/2353204/17/2323604/16/23 1459 ALBUMIN g/dL 2.4* 2.3* 2.3* Estimated Creatinine Clearance: 125 mL/min (A) (by C-G formula based on SCr of 0.37 mg/dL (L)). Microbiology Susceptibility data from last 14 days. Collected Specimen Info Organism Amoxicillin/Clavulanate Ampicillin Ampicillin/Sulbactam Aztreonam Cefazolin Cefepime Cefotaxime Ceftazidime Ceftriaxone Cefuroxime Ciprofloxacin Ertapenem Gentamicin Levofloxacin 04/13/23 Swab from ABSCESS Slime parapsilosis 04/13/23 Swab from ABSCESS Escherichia coli 04/13/23 Swab from ABSCESS Slime parapsilosis 04/13/23 Swab from ABSCESS Escherichia coli S R I R R R R R R R R S S R Collected Specimen Info Organism Meropenem Moxifloxacin Piperacillin/Tazobactam Trimethoprim/Sulfamethoxazole 04/13/23 Swab from ABSCESS Slime parapsilosis 04/13/23 Swab from ABSCESS Escherichia coli 04/13/23 Swab from ABSCESS Slime parapsilosis 04/13/23 Swab from ABSCESS Escherichia coli S R S R Assessment/Plan 04/13 UCx NG 04/13 scrotal abscess swab cx #1: E. Coli 04/13 scrotal abscess swab cx #2: E. Coli 04/13 Testicle wound cx from OSH: E. Faecalis S vanc, ampicillin, daptomycin, ESBL E. Coli S Unasyn,Zosyn, Ertapenem, Cefta/Naman and Gentamicin, and scant CoNS 02/25 bile aspirate fluid cx: ESBL E. 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 Coli) on 02/2023, and recent ND who preesnted to OSH due to 4 days of progressive erythema, pain, swelling with pustular discharge on his scrotum. He doesn't recall any trauma or wound on his scrotum before this. He has hydrocele. OSH CT scan showed largeabscess and was transferred on 04/13 to [facility] . He underwent reversal of apixaban and had emergent surgery with I/D, right orchiectomy (04/14). Operative finding was described as gush of purulent dishwater fluid . Patient on daptomycin, metropenem and clindamycin. ID was consulted for dahiana abscess antibiotic management. ID problems: # Infected right scrotal hydrocele and scrotal wall abscess s/p I&D and R orchiectomy (04/13/2023) - OSH wound cx positive for ESBL E coli, E. Faecalis and scant CoNS. - 04/13/23 OR cx positive for E. Coli and Slime parapsilosis Discussed with primary team who did not feel that this represented true Dahiana's gangrene Had known hydrocele which at this time was notably infected Although laboratory shows ESBL (extended beta-lactamase pression ) E. coli is susceptible to amox-clav in vitro, this agent is not indicated for treatment of ESBL E. coli patient clinically. Unreliable activity in the clinical setting with an ESBL ESBL E. coli the primary pathogen though scant coag negative staph and Enterococcus faecalis also reported (outside hospital culture). Not certain of what was cultured at outside hospital. Coag negative staph and a faecalis could represent normal skin franklin from the inguinal, scrotal area. These organisms were not grown from operative samples but E. coli was. Will focus therapy on E. coli. Ertapenem is not typically first-line for treatment of enterococcus but may be helpful in polymicrobial infections and may have some activity against Enterococcus faecalis, especially those which areampicillin susceptible. Otherwise would need to use daptomycin and or vancomycin to treat. Linezolid also an alternative for enterococcus but not optimal in the setting of anemia and with risk for leukopenia. THUS, I elected to focus on E. coli as a principal pathogen. I am told that surgical bed looks healthy. It may take a little bit longer to heal in the setting of suppression. So it may be difficult to predict duration of therapy but anticipate 2 to 4 weeks. Would reevaluate at 2-week jona and then determine whether or not additional IV medications needed. Thus, I also elected to direct therapy to the Slime parapsilosis which typically is susceptible to fluconazole (would use 400 mg daily) #Allergy to cephalexin, tobramycin, erythromycin and pencillin/amoxicillin, - all rash Multiple related agents. Would not use these agents unless evaluated and / or cleared by Allergy (though risk low) Recommendations: 1. 04/17/2023 discontinue daptomycin 2. 04/17/2023 discontinue meropenem 3. 04/17/2023 began ertapenem, 1 g IV every 24 hours Anticipate 2 to 4 weeks therapy depending on clinical response and granulation of open scrotal wound. -2-week stop date would be 04/27/2023 -4-week stop date would be 4. 04/17/23 began oral fluconazole 100 mg (2 x 200 mg tablet) p.o. daily. Anticipate 2 to 4 weeks therapy depending clinical response and granulation of open scrotal wound 5. Will need PICC line for midline Regarding discharge: - Patient lives in [facility] near [facility]. It may be difficult for patient to follow-up in person with infectious diseases. Dr. Junior can field questions regarding PICC line and duration of therapy, in consultation with Urology. - Dr. Junior will arrange for telephone visit in 2 - 3 weeks - After discharge, obtain weekly CBC + diff and BMP and FAX results to Dr. Junior at [phone] I spent 30 minutes in the professional and overall care of this patient. Jimenez Junior MD * Cheli Grullon - 04/18/2023 10:45 AM EST Plan home with [facility], however ID plan for 2 to 4 weeks 1g Ertapenem,; depending on clinical response and granulation of open scrotal wound; needs PICC. --spoke with patient and spouse at bedside, aware due to below Wednesday DC may be delayed Referral started to [facility] who works with [facility]; cost may not be able to be run today; would need confirmed for DC; also arranging SOC timing. Will need scripts and labs order &HHC orders. Per notes spouse has been helping with HHC, will need to go home with 1 week supplies. Per notes: Patient lives in [facility] near [facility]. It may be difficult for patient to follow-up in person with infectious diseases. Dr. Junior can field questions regarding PICC line and duration of therapy, in consultation with Urology. * Gena Gaona MD - 04/18/2023 8:23 AM EST Jagruti Esparza is a 67 y.o. male on day 5 of admission presenting with Scrotal abscess. Subjective Patient continues to recover well post-op. Pain well controlled. Patient denies n/v, fever/chills, chest pain/SOB or worsening abdominal or scrotal pain. Objective Physical Exam General: Laying in bed. NAD. Eyes: EOMI ENMT: no apparent injury, no lesions seen, MMM Head/neck: NCAT Cardiac: regular rate in chart Pulm: normal respiratory effort on NC GI: soft, NT/ND, end colostomy with stool and gas output, perc kerline with drainage : uncircumcised phallus with bowers in place draining CYU, scrotum with large incision loosely approximated with nylon sutures and packed with kerlix, no further purulent drainage noted, no hemorrhage noted, ecchymosis of inferior scrotum, dressing changed at bedside. Msk: DARDEN Extremities: DARDEN at baseline Skin: pallor, decubitus ulcers noted on sacrum and mid back covered with mepilex Neuro: AOx3 Psych: appropriate mood and behavior Last Recorded Vitals Blood pressure 119/69, pulse 87, temperature 36.7 C (98.1 F), temperature source Temporal, resp. rate 16, height 1.829 m (6'), weight 79.2 kg (174 lb 9.7 oz), SpO2 99 %. Intake/Output last 3 Shifts: I/O last 3 completed shifts: In: 600 (7.6 mL/kg) [I.V.:100 (1.3 mL/kg); IV Piggyback:500] Out: 2410 (30.4 mL/kg) [Urine:1900 (0.7 mL/kg/hr); Drains:390; Stool:120] Weight: 79.2 kg Relevant Results Scheduled medications acetaminophen, 650 mg, oral, TID apixaban, 5 mg, oral, BID aspirin, 81 mg, oral, Daily atorvastatin, 40 mg, oral, Nightly dilTIAZem CD, 180 mg, oral, Daily ertapenem, 1 g, intravenous, q24h fluconazole, 200 mg, oral, BID insulin lispro, 0-5 Units, subcutaneous, TID with meals pantoprazole, 40 mg, oral, Daily before breakfast polyethylene glycol, 17 g, oral, Daily predniSONE, 5 mg, oral, Daily tacrolimus, 0.5 mg, oral, q12h TREMAINE Continuous medications PRN medications PRN medications: dextrose 10 % in water (D10W), dextrose, glucagon, hydrOXYzine HCL, oxyCODONE, oxyCODONE Results for orders placed or performed during the hospital encounter of 04/13/23 (from the past 24 hour(s)) POCT GLUCOSE Result Value Ref Range POCT Glucose 115 (H) 74 - 99 mg/dL POCT GLUCOSE Result Value Ref Range POCT Glucose 96 74 - 99 mg/dL CBC Result Value Ref Range WBC 8.0 4.4 - 11.3 x10*3/uL nRBC 0.0 0.0 - 0.0 /100 WBCs RBC 3.48 (L) 4.50 - 5.90 x10*6/uL Hemoglobin 8.8 (L) 13.5 - 17.5 g/dL Hematocrit 27.2 (L) 41.0 - 52.0 % MCV 78 (L) 80 - 100 fL MCH 25.3 (L) 26.0 - 34.0 pg MCHC 32.4 32.0 - 36.0 g/dL RDW 23.8 (H) 11.5 - 14.5 % Platelets 288 150 - 450 x10*3/uL Renal Function Panel Result Value Ref Range Glucose 105 (H) 74 - 99 mg/dL Sodium 136 136 - 145 mmol/L Potassium 4.4 3.5 - 5.3 mmol/L Chloride 109 (H) 98 - 107 mmol/L Bicarbonate 24 21 - 32 mmol/L Anion Gap 7 (L) 10 - 20 mmol/L Urea Nitrogen 12 6 - 23 mg/dL Creatinine 0.37 (L) 0.50 - 1.30 mg/dL eGFR >90 >60 mL/min/1.73m*2 Calcium 10.2 8.6 - 10.6 mg/dL Phosphorus 2.5 2.5 - 4.9 mg/dL Albumin 2.4 (L) 3.4 - 5.0 g/dL Protime-INR Result Value Ref Range Protime 17.7 (H) 9.8 - 12.8 seconds INR 1.6 (H) 0.9 - 1.1 Lower extremity venous duplex bilateral Result Date: 04/15/2023 Preliminary Cardiology Report [place] [id number] and Preliminary Vascular Lab Report [facility] US LOWER EXTREMITY VENOUS DUPLEX BILATERAL Patient Name: JAGRUTI Oquendo Physician: [id number] Yudith Dotson MD, VILMA HAYNES StudyDate: 04/15/2023 Ordering [id number] PETERShamir STAHL Physician: MRN/PID: [id number] Technologist: Tucker Morales RVT Technologist 2: Date of /Age: 10 1955 Gender: M Admission Status: Inpatient Location [facility] Performed: Diagnosis/ICD: Localized (leg) edema-R60.0 Procedure/CPT: 67396 Peripheral venous duplex scan for DVT complete PRELIMINARY CONCLUSIONS: Right Lower Venous: No evidence of acute deep vein thrombus visualized in the right lower extremity. Edema noted in the calf. Left Lower Venous: No evidence of acute deep vein thrombus visualized in the left lower extremity. Edema noted in the calf. Imaging & Doppler Findings: Right Compressible Thrombus Flow Distal External Iliac None Spontaneous/Phasic CFV Yes None Spontaneous/Phasic PFV Yes None FV Proximal Yes None Spontaneous/Phasic FV Mid Yes None FV Distal Yes None Popliteal Yes None Spontaneous/Phasic Peroneal Yes None PTV Yes None Left Compress Thrombus Flow Distal External Iliac None Spontaneous/Phasic CFV Yes None Spontaneous/Phasic PFV Yes None FV Proximal Yes None Spontaneous/Phasic FV Mid Yes None FV Distal Yes None Popliteal Yes None Spontaneous/Phasic Peroneal Yes None PTV Yes None VASCULAR PRELIMINARY REPORT completed by Tucker Morales RVT on 04/15/2023 at 2:20:39 PM Final XR chest 1 view Result Date: 04/15/2023 Interpreted By: Sekou Wilson, STUDY: XR CHEST 1 VIEW; 04/15/2023 6:53 am INDICATION: Signs/Symptoms:ICU daily. COMPARISON: 04/14/2023. ACCESSION NUMBER(S): [id number] ORDERING CLINICIAN: JYOTSNA MCCOY FINDINGS: CARDIOMEDIASTINAL SILHOUETTE: Cardiomegaly versus pericardial effusion. Prominence of central pulmonary arteries and correlate with any concern for pulmonary artery hypertension LUNGS:Slight improvement in basilar atelectasis. Continued left basilar atelectasis and effusion. ABDOMEN: No remarkable upper abdominal findings. BONES: No acute osseous changes. 1. Slight improvement in right basilar aeration with continued left basilar atelectasis/effusion. 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 Vitals stable. Awaiting labs for today. Dressing changed at bedside with . Okay for TOV today. Recommendations: Neuro: - Scheduled Tylenol, PRN Oxycodone for pain, PRN Dilaudid for breakthrough pain. Hydroxzine PRN foranxiety Cardiac: - Eliquis 5 mg BID - Diltiazem 180mg - ASA 81 - Atorvastatin - Maintain MAP >65 - Continue to monitor BP Pulm: - Encourage IS - Maintain O2 >88% GI: Perc kerline in place - Cardiac diet - Bowel regimen - PRN Zofran for nausea : S/p kidney transplant - Prednisone/Tacrolimus - Daily BMP - Strict I&Os - Replete lytes PRN HEME: - Trend CBC daily - Apixaban/ASA - Transfusion not indicated at this time Endo: - SSI ID: [id number] - Wound packing with saline soaked gauze BID - ID Following - 1g IV daily ertapenem, anticipate 2-4 weeks depending on response - Fluconazole 200 mg PO BID for 2-4 weeks - Will need tunneled PICC for home going therapy, planning on Wednesday DVT Ppx: - Eliquis -SCD Dispo: Anticipate DC to home when PICC line placed and home antibiotics arranged, likely Wednesday Gena Gaona MD Urologic Surgery PGY-2 Adult Urology: [id number] Pediatric Urology: [id number] * Jimenez Junior MD - 04/17/2023 4:32 PM EST Jagruti Esparza is a 67 y.o. male on day 4 of admission presenting with Scrotal abscess. Subjective Patient seen during early afternoon rounds Patient's present Patient supine in no acute distress Patient alert and oriented Reviewed recent outside hospital information ([facility] [place]) Outside hospital culture showed coag negative staph, Enterococcus faecalis (ampicillin susceptible)and ESBL E. coli. Primary report not available. See ID consult note. Not Certain of what culture was sent cyst at outside hospital) prior to open incision and drainage and orchiectomy on 04/13/2023. Shared pictures of the initial lesion which showed protruding tissue, and impending drainage / rupture. No through and through ulceration at that time. Patient had infected hydrocele Patient aware of having hydrocele for many years TODAY, pain is controlled and patient denies fever, chills, rigors, headache, shortness of breath, chest pain, nausea, vomiting, or diarrhea Physical Exam Patient resting flat in bed and in no acute distress Normal conversation Pleasant interactive Extraocular muscles are intact Large right upper extremity AVF with palpable bruit Anterior chest clear S1, S2, I did not hear a murmur Soft nontender abdomen Left lower quadrant colostomy Urine collection bag in place Scrotum: Mild to moderate edema and erythema. Packing in place. Edges largely healthy appearing. Between the4 and 7 o'clock position there is slightly ecchymotic skin. No foul odor. Relevant Results Labs Results from last 72 hours Lab Units 04/17/237 04/16/23 0246 04/15/23 0009 WBC AUTO x10*3/uL 7.5 7.6 7.9 HEMOGLOBIN g/dL 8.3* 7.9* 8.1* HEMATOCRIT % 26.9* 25.7* 25.5* PLATELETS AUTO x10*3/uL 259 282 282 Results from last 72 hours Lab Units 04/17/23 0237 04/16/23 1459 04/16/23 0246 SODIUM mmol/L 136 138 135* POTASSIUM mmol/L 4.4 4.5 4.3 CHLORIDE mmol/L 112* 111* 110* CO2 mmol/L 22 21 23 BUN mg/dL 12 11 13 CREATININE mg/dL 0.41* 0.52 0.59 GLUCOSE mg/dL 108* 148* 123* CALCIUM mg/dL 10.2 10.1 10.2 ANION GAP mmol/L <7* 11 <7* EGFR mL/min/1.73m*2 >90 >90 >90 PHOSPHORUS mg/dL 2.0* 2.9 1.5* Results from last 72 hours Lab Units 04/17/23 0237 04/16/23 1459 04/16/23 0246 ALBUMIN g/dL 2.3* 2.3* 2.4* Estimated Creatinine Clearance: 125 mL/min (A) (by C-G formula based on SCr of 0.41 mg/dL (L)). No results found for: CRP Microbiology Susceptibility data from last 14 days. Collected Specimen Info Organism Amoxicillin/Clavulanate Ampicillin Ampicillin/Sulbactam Aztreonam Cefazolin Cefepime Cefotaxime Ceftazidime Ceftriaxone Cefuroxime Ciprofloxacin Ertapenem Gentamicin Levofloxacin 04/13/23 Swab from ABSCESS Slime parapsilosis 04/13/23 Swab from ABSCESS Escherichia coli 04/13/23 Swab from ABSCESS Slime parapsilosis 04/13/23 Swab from ABSCESS Escherichia coli S R I R R R R R R R R S S R Collected Specimen Info Organism Meropenem Moxifloxacin Piperacillin/Tazobactam Trimethoprim/Sulfamethoxazole 04/13/23 Swab from ABSCESS Slime parapsilosis 04/13/23 Swab from ABSCESS Escherichia coli 04/13/23 Swab from ABSCESS Slime parapsilosis 04/13/23 Swab from ABSCESS Escherichia coli S R S R Assessment/Plan 04/13 UCx NG 04/13 scrotal abscess swab cx #1: E. Coli 04/13 scrotal abscess swab cx #2: E. Coli 04/13 Testicle wound cx from OSH: E. Faecalis S vanc, ampicillin, daptomycin, ESBL E. Coli S Unasyn,Zosyn, Ertapenem, Cefta/Naman and Gentamicin, and scant CoNS 02/25 bile aspirate fluid cx: ESBL E. 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 Coli) on 02/2023, and recent ND who preesnted to OSH due to 4 days of progressive erythema, pain, swelling with pustular discharge on his scrotum. He doesn't recall any trauma or wound on his scrotum before this. He has hydrocele. OSH CT scan showed largeabscess and was transferred on 04/13 to [facility] . He underwent reversal of apixaban and had emergent surgery with I/D, right orchiectomy (04/14). Operative finding was described as gush of purulent dishwater fluid . Patient on daptomycin, metropenem and clindamycin. ID was consulted for dahiana abscess antibiotic management. ID problems: # Infected right scrotal hydrocele and scrotal wall abscess s/p I&D and R orchiectomy (04/13/2023) - OSH wound cx positive for ESBL E coli, E. Faecalis and scant CoNS. - 04/13/23 OR cx positive for E. Coli and Slime parapsilosis Discussed with primary team who did not feel that this represented true Dahiana's gangrene Had known hydrocele which at this time was notably infected Although laboratory shows ESBL (extended beta-lactamase pression ) E. coli is susceptible to amox-clav in vitro, this agent is not indicated for treatment of ESBL E. coli patient clinically. Unreliable activity in the clinical setting with an ESBL ESBL E. coli the primary pathogen though scant coag negative staph and Enterococcus faecalis also reported (outside hospital culture). Not certain of what was cultured at outside hospital. Coag negative staph and a faecalis could represent normal skin franklin from the inguinal, scrotal area. These organisms were not grown from operative samples but E. coli was. Will focus therapy on E. coli. Ertapenem is not typically first-line for treatment of enterococcus but may be helpful in polymicrobial infections and may have some activity against Enterococcus faecalis, especially those which areampicillin susceptible. Otherwise would need to use daptomycin and or vancomycin to treat. Linezolid also an alternative for enterococcus but not optimal in the setting of anemia and with risk for leukopenia. THUS, I elected to focus on E. coli as a principal pathogen. I am told that surgical bed looks healthy. It may take a little bit longer to heal in the setting of suppression. So it may be difficult to predict duration of therapy but anticipate 2 to 4 weeks. Would reevaluate at 2-week jona and then determine whether or not additional IV medications needed. Thus, I also elected to direct therapy to the Slime parapsilosis which typically is susceptible to fluconazole (would use 400 mg daily) #Allergy to cephalexin, tobramycin, erythromycin and pencillin/amoxicillin, - all rash Multiple related agents. Would not use these agents unless evaluated and / or cleared by Allergy (though risk low) Recommendations: 1. 04/17/2023 discontinue daptomycin 2. 04/17/2023 discontinue meropenem 3. 04/17/2023 begin ertapenem, 1 g IV every 24 hours Anticipate 2 to 4 weeks therapy depending on clinical response and granulation of open scrotal wound. -2-week stop date would be 04/27/2023 -4-week stop date would be 4. Begin oral fluconazole 100 mg (2 x 200 mg tablet) p.o. daily. Anticipate 2 to 4 weeks therapy depending clinical response and granulation of open scrotal wound 5. Will need PICC line for midline Patient lives in [facility] near [facility]. It may be difficult for patient to follow-up in person with infectious diseases. Dr. Junior can field questions regarding PICC line and duration of therapy, in consultation with Urology. I spent 60 minutes in the professional and overall care of this patient. Jimenez Junior MD * Debbie Scott, DO - 04/17/2023 9:40 AM EST Jagruti Esparza is a 67 y.o. male on day 4 of admission presenting with Scrotal abscess. Subjective Patient continues to recover well post-op. Pain well controlled. Patient denies n/v, fever/chills, chest pain/SOB or worsening abdominal or scrotal pain. Objective Physical Exam General: Laying in bed. NAD. Eyes: EOMI ENMT: no apparent injury, no lesions seen, MMM Head/neck: NCAT Cardiac: regular rate in chart Pulm: normal respiratory effort on NC GI: soft, NT/ND, end colostomy with stool and gas output, perc kerline with drainage : uncircumcised phallus with bowers in place draining CYU, scrotum with large incision loosely approximated with nylon sutures and packed with kerlix, no further purulent drainage noted, no hemorrhage noted, ecchymosis of inferior scrotum, dressing changed at bedside. Msk: DARDEN Extremities: DARDEN at baseline Skin: pallor, decubitus ulcers noted on sacrum and mid back covered with mepilex Neuro: AOx3 Psych: appropriate mood and behavior Last Recorded Vitals Blood pressure (!) 117/49, pulse 84, temperature 35.9 C (96.6 F), temperature source Temporal, resp. rate 16, height 1.829 m (6'), weight 79.2 kg (174 lb 9.7 oz), SpO2 100 %. Intake/Output last 3 Shifts: I/O last 3 completed shifts: In: 110 (1.4 mL/kg) [Other:10; IV Piggyback:100] Out: 3135 (39.6 mL/kg) [Urine:2965 (1 mL/kg/hr); Drains:100; Stool:70] Weight: 79.2 kg Relevant Results Scheduled medications acetaminophen, 650 mg, oral, TID apixaban, 5 mg, oral, BID aspirin, 81 mg, oral, Daily atorvastatin, 40 mg, oral, Nightly daptomycin, 8 mg/kg, intravenous, q24h TREMAINE dilTIAZem SR, 90 mg, oral, BID insulin lispro, 0-5 Units, subcutaneous, TID with meals meropenem, 1 g, intravenous, q8h micafungin, 100 mg, intravenous, q24h pantoprazole, 40 mg, oral, Daily before breakfast polyethylene glycol, 17 g, oral, Daily predniSONE, 5 mg, oral, Daily sodium phosphate, 21 mmol, intravenous, Once tacrolimus, 0.5 mg, oral, q12h TREMAINE Continuous medications PRN medications PRN medications: dextrose 10 % in water (D10W), dextrose, glucagon, hydrOXYzine HCL, oxyCODONE, oxyCODONE Results for orders placed or performed during the hospital encounter of 04/13/23 (from the past 24 hour(s)) POCT GLUCOSE Result Value Ref Range POCT Glucose 117 (H) 74 - 99 mg/dL Renal Function Panel Result Value Ref Range Glucose 148 (H) 74 - 99 mg/dL Sodium 138 136 - 145 mmol/L Potassium 4.5 3.5 - 5.3 mmol/L Chloride 111 (H) 98 - 107 mmol/L Bicarbonate 21 21 - 32 mmol/L Anion Gap 11 10 - 20 mmol/L Urea Nitrogen 11 6 - 23 mg/dL Creatinine 0.52 0.50 - 1.30 mg/dL eGFR >90 >60 mL/min/1.73m*2 Calcium 10.1 8.6 - 10.6 mg/dL Phosphorus 2.9 2.5 - 4.9 mg/dL Albumin 2.3 (L) 3.4 - 5.0 g/dL POCT GLUCOSE Result Value Ref Range POCT Glucose 145 (H) 74 - 99 mg/dL Calcium, Ionized Result Value Ref Range POCT Calcium, Ionized 1.64 (H) 1.1 - 1.33 mmol/L CBC Result Value Ref Range WBC 7.5 4.4 - 11.3 x10*3/uL nRBC 0.0 0.0 - 0.0 /100 WBCs RBC 3.29 (L) 4.50 - 5.90 x10*6/uL Hemoglobin 8.3 (L) 13.5 - 17.5 g/dL Hematocrit 26.9 (L) 41.0 - 52.0 % MCV 82 80 - 100 fL MCH 25.2 (L) 26.0 - 34.0 pg MCHC 30.9 (L) 32.0 - 36.0 g/dL RDW 23.0 (H) 11.5 - 14.5 % Platelets 259 150 - 450 x10*3/uL Coagulation Screen Result Value Ref Range Protime 13.2 (H) 9.8 - 12.8 seconds INR 1.2 (H) 0.9 - 1.1 aPTT 29 27 - 38 seconds Magnesium Result Value Ref Range Magnesium 2.00 1.60 - 2.40 mg/dL Renal Function Panel Result Value Ref Range Glucose 108 (H) 74 - 99 mg/dL Sodium 136 136 - 145 mmol/L Potassium 4.4 3.5 - 5.3 mmol/L Chloride 112 (H) 98 - 107 mmol/L Bicarbonate 22 21 - 32 mmol/L Anion Gap <7 (L) 10 - 20 mmol/L Urea Nitrogen 12 6 - 23 mg/dL Creatinine 0.41 (L) 0.50 - 1.30 mg/dL eGFR >90 >60 mL/min/1.73m*2 Calcium 10.2 8.6 - 10.6 mg/dL Phosphorus 2.0 (L) 2.5 - 4.9 mg/dL Albumin 2.3 (L) 3.4 - 5.0 g/dL POCT GLUCOSE Result Value Ref Range POCT Glucose 114 (H) 74 - 99 mg/dL Lower extremity venous duplex bilateral Result Date: 04/15/2023 Preliminary Cardiology Report [place] [id number] and Preliminary Vascular Lab Report VASC US LOWER EXTREMITY VENOUS DUPLEX BILATERAL Patient Name: JAGRUTI Oquendo Physician: [id number] VILMA Baron MD, RPVI StudyDate: 04/15/2023 Ordering [id number] PETERShamir DELATORREADÁNMONI Physician: MRN/PID: [id number] Technologist: Tucker Morales RVT Technologist 2: Date of /Age: 10 1955 Gender: M Admission Status: Inpatient Location [facility] Performed: Diagnosis/ICD: Localized (leg) edema-R60.0 Procedure/CPT: 12808 Peripheral venous duplex scan for DVT complete PRELIMINARY CONCLUSIONS: Right Lower Venous: No evidence of acute deep vein thrombus visualized in the right lower extremity. Edema noted in the calf. Left Lower Venous: No evidence of acute deep vein thrombus visualized in the left lower extremity. Edema noted in the calf. Imaging & Doppler Findings: Right Compressible Thrombus Flow Distal External Iliac None Spontaneous/Phasic CFV Yes None Spontaneous/Phasic PFV Yes None FV Proximal Yes None Spontaneous/Phasic FV Mid Yes None FV Distal Yes None Popliteal Yes None Spontaneous/Phasic Peroneal Yes None PTV Yes None Left Compress Thrombus Flow Distal External Iliac None Spontaneous/Phasic CFV Yes None Spontaneous/Phasic PFV Yes None FV Proximal Yes None Spontaneous/Phasic FV Mid Yes None FV Distal Yes None Popliteal Yes None Spontaneous/Phasic Peroneal Yes None PTV Yes None VASCULAR PRELIMINARY REPORT completed by Tucker Morales RVT on 04/15/2023 at 2:20:39 PM Final XR chest 1 view Result Date: 04/15/2023 Interpreted By: Sekou Wilson, STUDY: XR CHEST 1 VIEW; 04/15/2023 6:53 am INDICATION: Signs/Symptoms:ICU daily. COMPARISON: 04/14/2023. ACCESSION NUMBER(S): [id number] ORDERING CLINICIAN: JYOTSNA MCCOY FINDINGS: CARDIOMEDIASTINAL SILHOUETTE: Cardiomegaly versus pericardial effusion. Prominence of central pulmonary arteries and correlate with any concern for pulmonary artery hypertension LUNGS:Slight improvement in basilar atelectasis. Continued left basilar atelectasis and effusion. ABDOMEN: No remarkable upper abdominal findings. BONES: No acute osseous changes. 1. Slight improvement in right basilar aeration with continued left basilar atelectasis/effusion. Signed by: Sekou Wilson 04/15/2023 10:44 AM Dictation workstation: [id number] Electrocardiogram, 12-lead PRN ACS symptoms Result Date: 04/14/2023 Sinus tachycardia Left axis deviation Anterolateral infarct , age undetermined Abnormal ECG When compared with ECG of 14-APR-2023 00:23, Anterior infarct is now Present Anterolateral infarct is now Present T wave inversion now evident in Anterior leads This patient currently has cardiac telemetry ordered; if you would like to modify or discontinue the telemetry order, click here to go to the orders activity to modify/discontinue the order. Assessment/Plan Principal Problem: Scrotal abscess Active Problems: ESRD (end stage renal disease) ([facility]) Scrotal wall abscess Dahiana's gangrene Scrotal abscess, possible dahiana's gangrene in the setting of large hydrocele, immobility and immunosuppression s/p kidney transplant improving well postoperatively with no further areas requiring resection noted on PE today. Vitals stable. Awaiting labs for today. Dressing changed at bedside with . Okay for TOV today. Recommendations: - Okay to remove bowers - Appreciate SICU care - No plan for further surgical intervention today - Appreciate ID recs, please cont broad spectrum abx and tailor as appropriate to culture sensitivities - FU intra-op wound cultures - Appreciate ACS recs - Appreciate transplant nephrology recs for medication management - OK for regular diet - OK for ambulation as able - Trend CBC, transfuse as needed - Please change scrotal dressings BID (urology team will perform AM change and RN to perform PM change) with wet to dry kerlix packed into open scrotal space and cover with abd and mesh underwear - Please include in dressing changes for teaching for home going - Please page urology for questions/concerns/clinical status changes Dispo: Pending final ID reds, possible discharge home today vs tomorrow Debbie Scott DO Urology Resident, PGY-3 Pager: [phone] * Vee Simon DO - 04/17/2023 5:03 AM EST Jagruti Esparza is a 67 y.o. male on day 4 of admission presenting with Scrotal abscess. Subjective Overnight: NAEON. Bowers removed and external catheter placed. Repleted phos. Objective Physical Exam Vitals reviewed. Constitutional: General: He is awake. HENT: Head: Normocephalic and atraumatic. Mouth/Throat: Mouth: Mucous membranes are moist. Eyes: Extraocular Movements: Extraocular movements intact. Pupils: Pupils are equal, round, and reactive to light. Neck: Comments: LIJ CVC, dressing c/d/i. Cardiovascular: Rate and Rhythm: Normal rate and regular rhythm. Pulses: Normal pulses. Heart sounds: Normal heart sounds. Pulmonary: Effort: Pulmonary effort is normal. Breath sounds: Normal breath sounds and air entry. Abdominal: Palpations: Abdomen is soft. Comments: Obese abdomen. RUQ, cholecystotomy drain in place. Colostomy in place with soft brown stool, ostomy appliance intact. Genitourinary: Comments: Bowers in place. Scrotal dressing c/d/i. Surgical site tenderness. Musculoskeletal: Cervical back: Neck supple. Right lower leg: Edema present. Left lower leg: Edema present. Comments: R Upper arm AVF Skin: Capillary Refill: Capillary refill takes less than 2 seconds. Comments: Pressure ulcer pain on lower back and buttocks Neurological: General: No focal deficit present. Mental Status: He is alert and oriented to person, place, and time. Psychiatric: Mood and Affect: Mood normal. Behavior: Behavior normal. Behavior is cooperative. Last Recorded Vitals Blood pressure (!) 121/48, pulse 81, temperature 36.4 C (97.6 F), temperature source Temporal, resp. rate 13, height 1.829 m (6'), weight 79.2 kg (174 lb 9.7 oz), SpO2 99 %. Intake/Output last 3 Shifts: I/O last 3 completed shifts: In: 933 (11.8 mL/kg) [P.O.:250; Other:20; IV Piggyback:663] Out: 3485 (44 mL/kg) [Urine:3435 (1.2 mL/kg/hr); Drains:50] Weight: 79.2 kg Relevant Results Results for orders placed or performed during the hospital encounter of 04/13/23 (from the past 24 hour(s)) Tacrolimus level Result Value Ref Range Tacrolimus 4.2 <=15.0 ng/mL POCT GLUCOSE Result Value Ref Range POCT Glucose 119 (H) 74 - 99 mg/dL POCT GLUCOSE Result Value Ref Range POCT Glucose 117 (H) 74 - 99 mg/dL Renal Function Panel Result Value Ref Range Glucose 148 (H) 74 - 99 mg/dL Sodium 138 136 - 145 mmol/L Potassium 4.5 3.5 - 5.3 mmol/L Chloride 111 (H) 98 - 107 mmol/L Bicarbonate 21 21 - 32 mmol/L Anion Gap 11 10 - 20 mmol/L Urea Nitrogen 11 6 - 23 mg/dL Creatinine 0.52 0.50 - 1.30 mg/dL eGFR >90 >60 mL/min/1.73m*2 Calcium 10.1 8.6 - 10.6 mg/dL Phosphorus 2.9 2.5 - 4.9 mg/dL Albumin 2.3 (L) 3.4 - 5.0 g/dL POCT GLUCOSE Result Value Ref Range POCT Glucose 145 (H) 74 - 99 mg/dL Calcium, Ionized Result Value Ref Range POCT Calcium, Ionized 1.64 (H) 1.1 - 1.33 mmol/L CBC Result Value Ref Range WBC 7.5 4.4 - 11.3 x10*3/uL nRBC 0.0 0.0 - 0.0 /100 WBCs RBC 3.29 (L) 4.50 - 5.90 x10*6/uL Hemoglobin 8.3 (L) 13.5 - 17.5 g/dL Hematocrit 26.9 (L) 41.0 - 52.0 % MCV 82 80 - 100 fL MCH 25.2 (L) 26.0 - 34.0 pg MCHC 30.9 (L) 32.0 - 36.0 g/dL RDW 23.0 (H) 11.5 - 14.5 % Platelets 259 150 - 450 x10*3/uL Coagulation Screen Result Value Ref Range Protime 13.2 (H) 9.8 - 12.8 seconds INR 1.2 (H) 0.9 - 1.1 aPTT 29 27 - 38 seconds Magnesium Result Value Ref Range Magnesium 2.00 1.60 - 2.40 mg/dL Renal Function Panel Result Value Ref Range Glucose 108 (H) 74 - 99 mg/dL Sodium 136 136 - 145 mmol/L Potassium 4.4 3.5 - 5.3 mmol/L Chloride 112 (H) 98 - 107 mmol/L Bicarbonate 22 21 - 32 mmol/L Anion Gap <7 (L) 10 - 20 mmol/L Urea Nitrogen 12 6 - 23 mg/dL Creatinine 0.41 (L) 0.50 - 1.30 mg/dL eGFR >90 >60 mL/min/1.73m*2 Calcium 10.2 8.6 - 10.6 mg/dL Phosphorus 2.0 (L) 2.5 - 4.9 mg/dL Albumin 2.3 (L) 3.4 - 5.0 g/dL Assessment/Plan Principal Problem: Scrotal abscess Active Problems: ESRD (end stage renal disease) ([facility]) Scrotal wall abscess Dahiana's gangrene ASSESSMENT Jagruti Esparza is a 67 y/o M with a history of ESRD s/p 2012 kidney transplant, afib, HFpEF (TTE 03/06: EF 50-55%, mild to mod dilated RA, mild elevated RVSP, mild aortic stenosis), CAD, mild aortic stenosis, GERD, WILLIAN, and RLS. presenting to SICU from OR s/p I&D perineum, dahiana's gangrene washout, and R orchiectomy on 04/14. PLAN NEURO: H/o RLS. Acute post-op pain. A&Ox4 in SICU. - ongoing neuro and pain assessments - Scheduled Tylenol and PRN oxycodone - PRN atarax for anxiety - PT/OT consult - Home meds: Ropinirole CV: History of afib, CAD (NSTEMI 03/06), HFpEF, mild aortic stenosis. Baseline echo (TTE 03/06: EF 50-55%, mild to mod dilated RA, mild elevated RVSP, mild aortic stenosis). Arrived to SICU awake andextubated. Hemodynamically stable off all pressors. S/p 500 ml albumen on 04/13 - continuous EKG, hourly and prn NIBP monitoring - Goal bp <140/90 per nephrology - continue Diltiazem 90mg BID with hold parameters (home dose 180mg XL daily) - resume home apixaban, ASA, and statin - Holding home empagliflozin PULM: No pertinent history. Arrived to SICU extubated. Currently on RA. - goal SpO2 >92% - Q1h incentive spirometer while awake GI: H/o diverticulitis s/p laparoscopic sigmoid resection with end colostomy, acalculous cholecystitis s/p percutaneous cholecystostomy tube 03/06. S/p cholangiogram with IR 04/15 with evidence of cholelithiasis and nonobstructive choledocholithiasis, perc cholecystostomy tube in appropriate position. - Cardiac diet - ACS signing off -> f/u in clinic 4 weeks from discharge - PPI for GI prophylaxis - bowel regimen : H/o ESRD s/p kidney transplant (2012). Oliguric in OR: 37 ml UOP. Baseline creatinine 0.6-0.8. New bowers placed in OR. Hypercalcemia. Hypophosphatemia. Net negative 1.3L for past 24hrs. Bowers nowremoved. - Check renal function panel daily and PRN - IS per Transplant Nephrology -> continue prednisone and tacro - Maintain U/O >0.5ml/kg/hr - Replete electrolytes to goal K>4, Mg>2, Phos>2.5, ionized Ca>1.10. HEME: Acute blood loss anemia/chronic anemia. OR EBL 100. HGB 7.2 s/p 2 U PRBCs on 04/13. BLE duplex04/15 negative for DVT. - Check CBC and coags post op and daily - SCDs - resume home apixaban and ASA - ongoing monitoring for s/s bleeding ENDO: No history of DM or thyroid disease. Adequate glycemic control. - Q4h BG - SSI Lispro per ICU protocol. ID: Dahiana's gangrene s/p I&D/washout. Afebrile. No leukocytosis. Immunosuppressed (on prednisone/tacrolimus). On meropenem and daptomycin. Clindamycin discontinued 04/15. OR fungal culture 04/03 with +Slime parapsilosis. - temp q4h, wbc daily - ID following, appreciate recs - continue following cultures - Continue meropenum and daptomycin, Micafungin added per ID - ongoing monitoring for s/s infection Lines: - LIJ triple lumen (04/13) -> difficult PIV access, can go to floor with triple lumen, but will likely require PICC line for IV antibiotic course. Dispo: Patient stable from surgical standpoint for discharge home, however ID requesting to postpone discharge while finalization of cultures are pending. Patient seen and discussed with ICU attending Dr. Venegas. Vee Simon DO SICU phone # [phone] Associated attestation - Jose Alejandro Venegas DO - 04/17/2023 7:47 PM EST I have seen the patient either independently or with an associated resident physician or advanced practice provider. Assessment/Plan: 67 year old male with pertinent PMH of ESRD, kidney transplant (2012), HFpEF, Afib, CAD, aortic stenosis, and WILLIAN who presented to SICU s/p I&D perineum, dahiana's gangrene washout, and right orchiectomy on 04/14. Neuro: Acute post operative pain, well controlled. Has been out of bed without difficulty. CV: H/o CAD with NSTEMI, afib/flutter, mild aortic stenosis, HFpEF. Currently hemodynamically stable without need for vasoactive medications. Cardiology following, Continue Diltiazem, apixaban, ASA.statin Respiratory: Saturating well on RA. IS : No further diuresis today. Euvolemic on exam GI: H/o diverticulitis with laparoscopic sigmoid resection, end colostomy, acalculous cholecystitiswith perc kerline tube placed 03/06. ACS consulted, outpatient follow up. Tolerating diet. PPI. Bowelregimen Endo: Blood glucose adequately controlled on SSI. ID: Dahiana's gangrene. Continue barbie/dapto, micafungin. Slime in OR culture. ID following Heme: Acute on chronic anemia. Hgb stable without active signs or symptoms of bleeding. Apixaban and SCDs Skin: no issues Prophylaxis: PPI, Apixaban, SCDs Lines: TLC in place (04/13) due to difficult IV access Dispo: Transfer to [facility] Plan discussed with resident and RN at bedside. Family to be updated as available. Jose Alejandro Venegas D.O. Department of Anesthesiology & Perioperative Medicine CTICU/SICU Critical Care Regional Engagement Consultant This critically ill patient continues to be at risk for clinically significant deterioration / failure due to the above mentioned dysfunctional, unstable organ systems. I have personally identified and managed all complex critical care issues to prevent aforementioned clinical deterioration. Critical care time is spent at bedside and/or the immediate area and has included, but is not limited to, the review of diagnostic tests, labs, radiographs, serial assessments of hemodynamics, respiratory status, ventilatory management, review of consult team recommendations, and family updates. Time spent in procedures and teaching are reported separately. Critical Care Time: 40 minutes. * Narinder Owens MD - 04/16/2023 6:25 PM EST Jagruti Esparza is a 67 y.o. male on day 3 of admission presenting with Scrotal abscess. Subjective No acute events overnight. Objective Physical Exam Vitals reviewed. Constitutional: General: He is awake. HENT: Head: Normocephalic and atraumatic. Mouth/Throat: Mouth: Mucous membranes are moist. Eyes: Extraocular Movements: Extraocular movements intact. Pupils: Pupils are equal, round, and reactive to light. Neck: Comments: LIJ CVC, dressing c/d/i. Cardiovascular: Rate and Rhythm: Normal rate and regular rhythm. Pulses: Normal pulses. Heart sounds: Normal heart sounds. Pulmonary: Effort: Pulmonary effort is normal. Breath sounds: Normal breath sounds and air entry. Abdominal: Palpations: Abdomen is soft. Comments: Obese abdomen. RUQ, cholecystotomy drain in place. Colostomy in place with soft brown stool, ostomy appliance intact. Genitourinary: Comments: Bowers in place. Scrotal dressing c/d/i. Surgical site tenderness. Musculoskeletal: Cervical back: Neck supple. Right lower leg: Edema present. Left lower leg: Edema present. Comments: R Upper arm AVF Skin: Capillary Refill: Capillary refill takes less than 2 seconds. Comments: Pressure ulcer pain on lower back and buttocks Neurological: General: No focal deficit present. Mental Status: He is alert and oriented to person, place, and time. Psychiatric: Mood and Affect: Mood normal. Behavior: Behavior normal. Behavior is cooperative. Last Recorded Vitals Blood pressure 123/50, pulse 74, temperature 35.9 C (96.6 F), temperature source Tympanic, resp. rate 12, height 1.829 m (6'), weight 79.2 kg (174 lb 9.7 oz), SpO2 96 %. Intake/Output last 3 Shifts: I/O last 3 completed shifts: In: 1543 (19.5 mL/kg) [P.O.:250; Other:30; IV Piggyback:1263] Out: 3535 (44.6 mL/kg) [Urine:3490 (1.2 mL/kg/hr); Drains:45] Weight: 79.2 kg Relevant Results Results for orders placed or performed during the hospital encounter of 04/13/23 (from the past 24 hour(s)) POCT GLUCOSE Result Value Ref Range POCT Glucose 121 (H) 74 - 99 mg/dL POCT GLUCOSE Result Value Ref Range POCT Glucose 126 (H) 74 - 99 mg/dL Renal Function Panel Result Value Ref Range Glucose 123 (H) 74 - 99 mg/dL Sodium 135 (L) 136 - 145 mmol/L Potassium 4.3 3.5 - 5.3 mmol/L Chloride 110 (H) 98 - 107 mmol/L Bicarbonate 23 21 - 32 mmol/L Anion Gap <7 (L) 10 - 20 mmol/L Urea Nitrogen 13 6 - 23 mg/dL Creatinine 0.59 0.50 - 1.30 mg/dL eGFR >90 >60 mL/min/1.73m*2 Calcium 10.2 8.6 - 10.6 mg/dL Phosphorus 1.5 (L) 2.5 - 4.9 mg/dL Albumin 2.4 (L) 3.4 - 5.0 g/dL Magnesium Result Value Ref Range Magnesium 1.75 1.60 - 2.40 mg/dL Coagulation Screen Result Value Ref Range Protime 13.2 (H) 9.8 - 12.8 seconds INR 1.2 (H) 0.9 - 1.1 aPTT 21 (L) 27 - 38 seconds CBC Result Value Ref Range WBC 7.6 4.4 - 11.3 x10*3/uL nRBC 0.0 0.0 - 0.0 /100 WBCs RBC 3.15 (L) 4.50 - 5.90 x10*6/uL Hemoglobin 7.9 (L) 13.5 - 17.5 g/dL Hematocrit 25.7 (L) 41.0 - 52.0 % MCV 82 80 - 100 fL MCH 25.1 (L) 26.0 - 34.0 pg MCHC 30.7 (L) 32.0 - 36.0 g/dL RDW 22.2 (H) 11.5 - 14.5 % Platelets 282 150 - 450 x10*3/uL Calcium, Ionized Result Value Ref Range POCT Calcium, Ionized 1.66 (H) 1.1 - 1.33 mmol/L POCT GLUCOSE Result Value Ref Range POCT Glucose 108 (H) 74 - 99 mg/dL Tacrolimus level Result Value Ref Range Tacrolimus 4.2 <=15.0 ng/mL POCT GLUCOSE Result Value Ref Range POCT Glucose 119 (H) 74 - 99 mg/dL POCT GLUCOSE Result Value Ref Range POCT Glucose 117 (H) 74 - 99 mg/dL Renal Function Panel Result Value Ref Range Glucose 148 (H) 74 - 99 mg/dL Sodium 138 136 - 145 mmol/L Potassium 4.5 3.5 - 5.3 mmol/L Chloride 111 (H) 98 - 107 mmol/L Bicarbonate 21 21 - 32 mmol/L Anion Gap 11 10 - 20 mmol/L Urea Nitrogen 11 6 - 23 mg/dL Creatinine 0.52 0.50 - 1.30 mg/dL eGFR >90 >60 mL/min/1.73m*2 Calcium 10.1 8.6 - 10.6 mg/dL Phosphorus 2.9 2.5 - 4.9 mg/dL Albumin 2.3 (L) 3.4 - 5.0 g/dL POCT GLUCOSE Result Value Ref Range POCT Glucose 145 (H) 74 - 99 mg/dL Assessment/Plan Principal Problem: Scrotal abscess Active Problems: ESRD (end stage renal disease) ([facility]) Scrotal wall abscess Dahiana's gangrene Jagruti Esparza is a 67 y/o M with a history of ESRD s/p 2012 kidney transplant, afib, HFpEF (TTE 03/06: EF 50-55%, mild to mod dilated RA, mild elevated RVSP, mild aortic stenosis), CAD, mild aortic stenosis, GERD, WILLIAN, and RLS. presenting to SICU from OR s/p I&D perineum, dahiana's gangrene washout, and R orchiectomy on 04/14. Plan: NEURO: H/o RLS. Acute post-op pain. A&Ox4 in SICU. - ongoing neuro and pain assessments - Scheduled Tylenol and PRN oxycodone - PRN atarax for anxiety - PT/OT consult - Home meds: Ropinirole CV: History of afib, CAD (NSTEMI 03/06), HFpEF, mild aortic stenosis. Baseline echo (TTE 03/06: EF 50-55%, mild to mod dilated RA, mild elevated RVSP, mild aortic stenosis). Arrived to SICU awake andextubated. Hemodynamically stable off all pressors. S/p 500 ml albumen on 04/13 - continuous EKG, hourly and prn NIBP monitoring - Goal bp <140/90 per nephrology - continue Diltiazem 90mg BID with hold parameters (home dose 180mg XL daily) - resume home apixaban, ASA, and statin - Holding home empagliflozin PULM: No pertinent history. Arrived to SICU extubated. Currently on RA. - goal SpO2 >92% - Q1h incentive spirometer while awake GI: H/o diverticulitis s/p laparoscopic sigmoid resection with end colostomy, acalculous cholecystitis s/p percutaneous cholecystostomy tube 03/06. S/p cholangiogram with IR 04/15 with evidence of cholelithiasis and nonobstructive choledocholithiasis, perc cholecystostomy tube in appropriate position. - Cardiac diet - ACS signing off -> f/u in clinic 4 weeks from discharge - PPI for GI prophylaxis - bowel regimen : H/o ESRD s/p kidney transplant (2012). Oliguric in OR: 37 ml UOP. Baseline creatinine 0.6-0.8. New bowers placed in OR. Hypercalcemia. Hypophosphatemia. Net negative 1.3L for past 24hrs. - Check renal function panel daily and PRN - IS per Transplant Nephrology -> continue prednisone and tacro - Maintain U/O >0.5ml/kg/hr - ok to remove bowers per Urology - Replete electrolytes to goal K>4, Mg>2, Phos>2.5, ionized Ca>1.10. HEME: Acute blood loss anemia/chronic anemia. OR EBL 100. HGB 7.2 s/p 2 U PRBCs on 04/13. BLE duplex04/15 negative for DVT. - Check CBC and coags post op and daily - SCDs - resume home apixaban and ASA - ongoing monitoring for s/s bleeding ENDO: No history of DM or thyroid disease. Adequate glycemic control. - Q4h BG - SSI Lispro per ICU protocol. ID: Dahiana's gangrene s/p I&D/washout. Afebrile. No leukocytosis. Immunosuppressed (on prednisone/tacrolimus). On meropenem and daptomycin. Clindamycin discontinued 04/15. OR fungal culture 04/03 with +Slime parapsilosis. - temp q4h, wbc daily - ID following, appreciate recs - continue following cultures - Continue meropenum and daptomycin - add micafungin per ID - ongoing monitoring for s/s infection Lines: - LIJ triple lumen (04/13) -> difficult PIV access, can go to floor with triple lumen, but will likely require PICC line for IV antibiotic course. Dispo: Patient stable from surgical standpoint for discharge home, however ID requesting to postpone discharge while finalization of cultures are pending. Critical Care Time: 45 min Narinder [place] [id number] * Aníbal Lay RN - 04/16/2023 1:57 PM EST PLAN: ICU awaiting bed on RNF: - Okay to remove bowers - Appreciate SICU care - No plan for further surgical intervention today - Appreciate ID recs, please cont broad spectrum abx and tailor as appropriate to culture sensitivities - FU intra-op wound cultures - Appreciate ACS recs - Appreciate transplant nephrology recs for medication management - OK for regular diet - OK for ambulation as able - Trend CBC, transfuse as needed - Please change scrotal dressings BID (urology team will perform AM change and RN to perform PM change) with wet to dry kerlix packed into open scrotal space and cover with abd and mesh underwear - Please include in dressing changes for teaching for home going PAYOR: Medicare DISPO: Home with [facility] Under review at [facility]. Referral sent with requested SOC Wednesday 04/19. As of note, nursing likely able to start care next week. PT/OT SOC delayed approx 2 weeks. Provider notified. SUPPORT/CONTACT: Richa (tana) [phone] * Kay Gutierrez PA-C - 04/16/2023 11:52 AM EST [facility] ACUTE CARE SURGERY - PROGRESS NOTE Patient Name: Jagruti Esparza Admit Date: [id number] : 1955 AGE: 67 y.o. GENDER: male TODAY'S ASSESSMENT AND PLAN OF CARE: This is a 67 y/o M with a PMH of HTN, CAD, HFpEF (50-55%), paroxysmal Afib/flutter, ESRD s/p kidneytxp (2012), hiatal hernia, GERD, complicated diverticulitis with pericolonic abscess s/p lap sigmoid resection with end colostomy, and acalculous cholecystitis s/p percutaneous cholecystostomy tube pl acement on 02/25/23 who is admitted for management of Dahiana's gangrene. ACS consulted to evaluate status of percutaneous cholecystostomy tube. Patient initially presented in February 2023 with RUQ pain consistent with cholecystitis but was also found to have troponinemia >6000. For this reason, cholecystitis was managed nonoperatively with percutaneous cholecystostomy tube. Since then, patient's RUQ pain has subsided but he does still endorse discomfort around the tube. He has been admitted since yesterday with Dahiana's gangrene, now POD1 s/p I&D of perineum, washout, and R orchiectomy. Recommendations: - Cholangiogram suggestive of cholelithiases - Follow up with ACS clinic in 4 weeks from discharge (order placed) - Rest of care per primary team ACS will sign off at this time. Please reach out with any questions or concerns. Kay Gutierrez PA-C CHIEF COMPLAINT / EVENTS LAST 24HRS / HPI: Management of Cholecystostomy tube - no changes overnight MEDICAL HISTORY / ROS: Admission history and ROS reviewed. Pertinent changes as follows: NA PHYSICAL EXAM: Heart Rate: [80-105] Temp: [36.1 C (97 F)-37.1 C (98.8 F)] Resp: [9-24] BP: (106-134)/(45-70) SpO2: [95 %-100 %] Physical Exam General: NAD, resting comfortably HEENT: NCAT Resp: Nonlabored breathing on NC CV: RRR Abd: Soft, RUQ percutaneous cholecystostomy tube in place, bile in bag. Colostomy pink and viable : Dressing in place over wound. Bowers draining clear yellow urine MSK: Moves all extremities Psych: Appropriate mood and behavior IMAGING SUMMARY: (summary of new imaging findings, not a copy of dictation) NA LABS: Results from last 7 days Lab Units 04/16/23 0246 04/15/23 0009 04/14/23 1003 WBC AUTO x10*3/uL 7.6 7.9 6.7 HEMOGLOBIN g/dL 7.9* 8.1* 8.2* HEMATOCRIT % 25.7* 25.5* 25.9* PLATELETS AUTO x10*3/uL 282 282 256 Results from last 7 days Lab Units 04/16/23 0246 04/15/23 0009 04/13/23 2242 APTT seconds 21* 20* 27 INR 1.2* 1.2* 1.5* Results from last 7 days Lab Units 04/16/23 0246 04/15/23 0009 04/14/23 1003 04/13/23 2242 04/13/23 1448 SODIUM mmol/L 135* 134* 133* 132* 130* POTASSIUM mmol/L 4.3 4.6 4.9 5.1 6.6* CHLORIDE mmol/L 110* 108* 104 105 105 CO2 mmol/L 23 23 18* 21 21 BUN mg/dL 13 13 14 15 14 CREATININE mg/dL 0.59 0.51 0.49* 0.59 0.55 CALCIUM mg/dL 10.2 11.0* 10.9* 10.4 10.5 PROTEIN TOTAL g/dL -- -- -- 5.3* 5.6* BILIRUBIN TOTAL mg/dL -- -- -- 0.5 0.7 ALK PHOS U/L -- -- -- 54 52 ALT U/L -- -- -- 12 12 AST U/L -- -- -- 12 30 GLUCOSE mg/dL 123* 127* 89 123* 118* Results from last 7 days Lab Units 04/13/23 2242 04/13/23 1448 BILIRUBIN TOTAL mg/dL 0.5 0.7 BILIRUBIN DIRECT mg/dL 0.2 -- I have reviewed all medications, laboratory results, and imaging pertinent for today's encounter. * SIRIA Trevizo - 04/16/2023 10:37 AM EST Jagruti Esparza is a 67 y.o. male on day 3 of admission presenting with Scrotal abscess. Subjective No acute events overnight. Objective Physical Exam Vitals reviewed. Constitutional: General: He is awake. HENT: Head: Normocephalic and atraumatic. Mouth/Throat: Mouth: Mucous membranes are moist. Eyes: Extraocular Movements: Extraocular movements intact. Pupils: Pupils are equal, round, and reactive to light. Neck: Comments: LIJ CVC, dressing c/d/i. Cardiovascular: Rate and Rhythm: Normal rate and regular rhythm. Pulses: Normal pulses. Heart sounds: Normal heart sounds. Pulmonary: Effort: Pulmonary effort is normal. Breath sounds: Normal breath sounds and air entry. Abdominal: Palpations: Abdomen is soft. Comments: Obese abdomen. RUQ, cholecystotomy drain in place. Colostomy in place with soft brown stool, ostomy appliance intact. Genitourinary: Comments: Bowers in place. Scrotal dressing c/d/i. Surgical site tenderness. Musculoskeletal: Cervical back: Neck supple. Right lower leg: Edema present. Left lower leg: Edema present. Comments: R Upper arm AVF Skin: Capillary Refill: Capillary refill takes less than 2 seconds. Comments: Pressure ulcer pain on lower back and buttocks Neurological: General: No focal deficit present. Mental Status: He is alert and oriented to person, place, and time. Psychiatric: Mood and Affect: Mood normal. Behavior: Behavior normal. Behavior is cooperative. Last Recorded Vitals Blood pressure 129/53, pulse 86, temperature 36.4 C (97.5 F), temperature source Temporal, resp. rate 14, height 1.829 m (6'), weight 79.2 kg (174 lb 9.7 oz), SpO2 98 %. Intake/Output last 3 Shifts: I/O last 3 completed shifts: In: 1543 (19.5 mL/kg) [P.O.:250; Other:30; IV Piggyback:1263] Out: 3535 (44.6 mL/kg) [Urine:3490 (1.2 mL/kg/hr); Drains:45] Weight: 79.2 kg Relevant Results Results for orders placed or performed during the hospital encounter of 04/13/23 (from the past 24 hour(s)) POCT GLUCOSE Result Value Ref Range POCT Glucose 113 (H) 74 - 99 mg/dL POCT GLUCOSE Result Value Ref Range POCT Glucose 121 (H) 74 - 99 mg/dL POCT GLUCOSE Result Value Ref Range POCT Glucose 126 (H) 74 - 99 mg/dL Renal Function Panel Result Value Ref Range Glucose 123 (H) 74 - 99 mg/dL Sodium 135 (L) 136 - 145 mmol/L Potassium 4.3 3.5 - 5.3 mmol/L Chloride 110 (H) 98 - 107 mmol/L Bicarbonate 23 21 - 32 mmol/L Anion Gap <7 (L) 10 - 20 mmol/L Urea Nitrogen 13 6 - 23 mg/dL Creatinine 0.59 0.50 - 1.30 mg/dL eGFR >90 >60 mL/min/1.73m*2 Calcium 10.2 8.6 - 10.6 mg/dL Phosphorus 1.5 (L) 2.5 - 4.9 mg/dL Albumin 2.4 (L) 3.4 - 5.0 g/dL Magnesium Result Value Ref Range Magnesium 1.75 1.60 - 2.40 mg/dL Coagulation Screen Result Value Ref Range Protime 13.2 (H) 9.8 - 12.8 seconds INR 1.2 (H) 0.9 - 1.1 aPTT 21 (L) 27 - 38 seconds CBC Result Value Ref Range WBC 7.6 4.4 - 11.3 x10*3/uL nRBC 0.0 0.0 - 0.0 /100 WBCs RBC 3.15 (L) 4.50 - 5.90 x10*6/uL Hemoglobin 7.9 (L) 13.5 - 17.5 g/dL Hematocrit 25.7 (L) 41.0 - 52.0 % MCV 82 80 - 100 fL MCH 25.1 (L) 26.0 - 34.0 pg MCHC 30.7 (L) 32.0 - 36.0 g/dL RDW 22.2 (H) 11.5 - 14.5 % Platelets 282 150 - 450 x10*3/uL Calcium, Ionized Result Value Ref Range POCT Calcium, Ionized 1.66 (H) 1.1 - 1.33 mmol/L POCT GLUCOSE Result Value Ref Range POCT Glucose 108 (H) 74 - 99 mg/dL Tacrolimus level Result Value Ref Range Tacrolimus 4.2 <=15.0 ng/mL POCT GLUCOSE Result Value Ref Range POCT Glucose 119 (H) 74 - 99 mg/dL POCT GLUCOSE Result Value Ref Range POCT Glucose 117 (H) 74 - 99 mg/dL Assessment/Plan Principal Problem: Scrotal abscess Active Problems: ESRD (end stage renal disease) ([facility]) Scrotal wall abscess Dahiana's gangrene Jagruti Esparza is a 67 y/o M with a history of ESRD s/p 2012 kidney transplant, afib, HFpEF (TTE 03/06: EF 50-55%, mild to mod dilated RA, mild elevated RVSP, mild aortic stenosis), CAD, mild aortic stenosis, GERD, WILLIAN, and RLS. presenting to SICU from OR s/p I&D perineum, dahiana's gangrene washout, and R orchiectomy on 04/14. Plan: NEURO: H/o RLS. Acute post-op pain. A&Ox4 in SICU. - ongoing neuro and pain assessments - Scheduled Tylenol and PRN oxycodone - PRN atarax for anxiety - PT/OT consult - Home meds: Ropinirole CV: History of afib, CAD (NSTEMI 03/06), HFpEF, mild aortic stenosis. Baseline echo (TTE 03/06: EF 50-55%, mild to mod dilated RA, mild elevated RVSP, mild aortic stenosis). Arrived to SICU awake andextubated. Hemodynamically stable off all pressors. S/p 500 ml albumen on 04/13 - continuous EKG, hourly and prn NIBP monitoring - Goal bp <140/90 per nephrology - continue Diltiazem 90mg BID with hold parameters (home dose 180mg XL daily) - resume home apixaban, ASA, and statin - Holding home empagliflozin PULM: No pertinent history. Arrived to SICU extubated. Currently on RA. - goal SpO2 >92% - Q1h incentive spirometer while awake GI: H/o diverticulitis s/p laparoscopic sigmoid resection with end colostomy, acalculous cholecystitis s/p percutaneous cholecystostomy tube 03/06. S/p cholangiogram with IR 04/15 with evidence of cholelithiasis and nonobstructive choledocholithiasis, perc cholecystostomy tube in appropriate position. - Cardiac diet - ACS signing off -> f/u in clinic 4 weeks from discharge - PPI for GI prophylaxis - bowel regimen : H/o ESRD s/p kidney transplant (2012). Oliguric in OR: 37 ml UOP. Baseline creatinine 0.6-0.8. New bowers placed in OR. Hypercalcemia. Hypophosphatemia. Net negative 1.3L for past 24hrs. - Check renal function panel daily and PRN - IS per Transplant Nephrology -> continue prednisone and tacro - Maintain U/O >0.5ml/kg/hr - ok to remove bowers per Urology - Replete electrolytes to goal K>4, Mg>2, Phos>2.5, ionized Ca>1.10. HEME: Acute blood loss anemia/chronic anemia. OR EBL 100. HGB 7.2 s/p 2 U PRBCs on 04/13. BLE duplex04/15 negative for DVT. - Check CBC and coags post op and daily - SCDs - resume home apixaban and ASA - ongoing monitoring for s/s bleeding ENDO: No history of DM or thyroid disease. Adequate glycemic control. - Q4h BG - SSI Lispro per ICU protocol. ID: Dahiana's gangrene s/p I&D/washout. Afebrile. No leukocytosis. Immunosuppressed (on prednisone/tacrolimus). On meropenem and daptomycin. Clindamycin discontinued 04/15. OR fungal culture 04/03 with +Slime parapsilosis. - temp q4h, wbc daily - ID following, appreciate recs - continue following cultures - Continue meropenum and daptomycin - add micafungin per ID - ongoing monitoring for s/s infection Lines: - LIJ triple lumen (04/13) -> difficult PIV access, can go to floor with triple lumen, but will likely require PICC line for IV antibiotic course. Dispo: Patient stable from surgical standpoint for discharge home, however ID requesting to postpone discharge while finalization of cultures are pending. Patient seen and discussed with ICU attending Dr. Owens. I spent 46 minutes in the professional and overall care of this patient. SIRIA Trevizo SICU phone # [phone] * Nayeli Lockhart PA-C - 04/16/2023 7:55 AM EST Jagruti Esparza is a 67 y.o. male on day 3 of admission presenting with Scrotal abscess. Subjective Patient continues to recover well post-op. Pain well controlled. Patient denies n/v, fever/chills, chest pain/SOB or worsening abdominal or scrotal pain. Objective Physical Exam General: Laying in bed. NAD. Eyes: EOMI ENMT: no apparent injury, no lesions seen, MMM Head/neck: NCAT Cardiac: regular rate in chart Pulm: normal respiratory effort on NC GI: soft, NT/ND, end colostomy with stool and gas output, perc kerline with drainage : uncircumcised phallus with bowers in place draining CYU, scrotum with large incision loosely approximated with nylon sutures and packed with kerlix, no further purulent drainage noted, no hemorrhage noted, ecchymosis of inferior scrotum, dressing changed at bedside. Msk: DARDEN Extremities: DARDEN at baseline Skin: pallor, decubitus ulcers noted on sacrum and mid back covered with mepilex Neuro: AOx3 Psych: appropriate mood and behavior Last Recorded Vitals Blood pressure 116/51, pulse 88, temperature 36.1 C (97 F), temperature source Temporal, resp. rate15, height 1.829 m (6'), weight 79.2 kg (174 lb 9.7 oz), SpO2 98 %. Intake/Output last 3 Shifts: I/O last 3 completed shifts: In: 1543 (19.5 mL/kg) [P.O.:250; Other:30; IV Piggyback:1263] Out: 3535 (44.6 mL/kg) [Urine:3490 (1.2 mL/kg/hr); Drains:45] Weight: 79.2 kg Relevant Results Scheduled medications daptomycin, 8 mg/kg, intravenous, q24h TREMAINE dilTIAZem SR, 90 mg, oral, BID heparin (porcine), 5,000 Units, subcutaneous, q8h TREMAINE insulin lispro, 0-5 Units, subcutaneous, q4h magnesium sulfate, 2 g, intravenous, Once meropenem, 1 g, intravenous, q8h pantoprazole, 40 mg, oral, Daily before breakfast polyethylene glycol, 17 g, oral, Daily predniSONE, 5 mg, oral, Daily sodium phosphate, 21 mmol, intravenous, Once tacrolimus, 0.5 mg, oral, q12h TREMAINE Continuous medications PRN medications PRN medications: dextrose 10 % in water (D10W), dextrose, glucagon, HYDROmorphone, hydrOXYzine HCL Results for orders placed or performed during the hospital encounter of 04/13/23 (from the past 24 hour(s)) POCT GLUCOSE Result Value Ref Range POCT Glucose 107 (H) 74 - 99 mg/dL POCT GLUCOSE Result Value Ref Range POCT Glucose 108 (H) 74 - 99 mg/dL POCT GLUCOSE Result Value Ref Range POCT Glucose 113 (H) 74 - 99 mg/dL POCT GLUCOSE Result Value Ref Range POCT Glucose 121 (H) 74 - 99 mg/dL POCT GLUCOSE Result Value Ref Range POCT Glucose 126 (H) 74 - 99 mg/dL Renal Function Panel Result Value Ref Range Glucose 123 (H) 74 - 99 mg/dL Sodium 135 (L) 136 - 145 mmol/L Potassium 4.3 3.5 - 5.3 mmol/L Chloride 110 (H) 98 - 107 mmol/L Bicarbonate 23 21 - 32 mmol/L Anion Gap <7 (L) 10 - 20 mmol/L Urea Nitrogen 13 6 - 23 mg/dL Creatinine 0.59 0.50 - 1.30 mg/dL eGFR >90 >60 mL/min/1.73m*2 Calcium 10.2 8.6 - 10.6 mg/dL Phosphorus 1.5 (L) 2.5 - 4.9 mg/dL Albumin 2.4 (L) 3.4 - 5.0 g/dL Magnesium Result Value Ref Range Magnesium 1.75 1.60 - 2.40 mg/dL Coagulation Screen Result Value Ref Range Protime 13.2 (H) 9.8 - 12.8 seconds INR 1.2 (H) 0.9 - 1.1 aPTT 21 (L) 27 - 38 seconds CBC Result Value Ref Range WBC 7.6 4.4 - 11.3 x10*3/uL nRBC 0.0 0.0 - 0.0 /100 WBCs RBC 3.15 (L) 4.50 - 5.90 x10*6/uL Hemoglobin 7.9 (L) 13.5 - 17.5 g/dL Hematocrit 25.7 (L) 41.0 - 52.0 % MCV 82 80 - 100 fL MCH 25.1 (L) 26.0 - 34.0 pg MCHC 30.7 (L) 32.0 - 36.0 g/dL RDW 22.2 (H) 11.5 - 14.5 % Platelets 282 150 - 450 x10*3/uL Calcium, Ionized Result Value Ref Range POCT Calcium, Ionized 1.66 (H) 1.1 - 1.33 mmol/L POCT GLUCOSE Result Value Ref Range POCT Glucose 108 (H) 74 - 99 mg/dL POCT GLUCOSE Result Value Ref Range POCT Glucose 119 (H) 74 - 99 mg/dL Lower extremity venous duplex bilateral Result Date: 04/15/2023 Preliminary Cardiology Report [place] [id number] and Preliminary Vascular Lab Report [facility] LOWER EXTREMITY VENOUS DUPLEX BILATERAL Patient Name: JAGRUTI Oquendo Physician: [id number] Yudith Dotson MD, VILMA HAYNES StudyDate: 04/15/2023 Ordering [id number] PETER STAHL Physician: MRN/PID: [id number] Technologist: Tucker Morales RVT Technologist 2: Date of /Age: 10 1955 Gender: M Admission Status: Inpatient Location [facility] Performed: Diagnosis/ICD: Localized (leg) edema-R60.0 Procedure/CPT: 74018 Peripheral venous duplex scan for DVT complete PRELIMINARY CONCLUSIONS: Right Lower Venous: No evidence of acute deep vein thrombus visualized in the right lower extremity. Edema noted in the calf. Left Lower Venous: No evidence of acute deep vein thrombus visualized in the left lower extremity. Edema noted in the calf. Imaging & Doppler Findings: Right Compressible Thrombus Flow Distal External Iliac None Spontaneous/Phasic CFV Yes None Spontaneous/Phasic PFV Yes None FV Proximal Yes None Spontaneous/Phasic FV Mid Yes None FV Distal Yes None Popliteal Yes None Spontaneous/Phasic Peroneal Yes None PTV Yes None Left Compress Thrombus Flow Distal External Iliac None Spontaneous/Phasic CFV Yes None Spontaneous/Phasic PFV Yes None FV Proximal Yes None Spontaneous/Phasic FV Mid Yes None FV Distal Yes None Popliteal Yes None Spontaneous/Phasic Peroneal Yes None PTV Yes None VASCULAR PRELIMINARY REPORT completed by Tucker Morales RVT on 04/15/2023 at 2:20:39 PM Final XR chest 1 view Result Date: 04/15/2023 Interpreted By: Sekou Wilson, STUDY: XR CHEST 1 VIEW; 04/15/2023 6:53 am INDICATION: Signs/Symptoms:ICU daily. COMPARISON: 04/14/2023. ACCESSION NUMBER(S): [id number] ORDERING CLINICIAN: JYOTSNA MCCOY FINDINGS: CARDIOMEDIASTINAL SILHOUETTE: Cardiomegaly versus pericardial effusion. Prominence of central pulmonary arteries and correlate with any concern for pulmonary artery hypertension LUNGS:Slight improvement in basilar atelectasis. Continued left basilar atelectasis and effusion. ABDOMEN: No remarkable upper abdominal findings. BONES: No acute osseous changes. 1. Slight improvement in right basilar aeration with continued left basilar atelectasis/effusion. Signed by: Sekou Wilson 04/15/2023 10:44 AM Dictation workstation: [id number] Electrocardiogram, 12-lead PRN ACS symptoms Result Date: 04/14/2023 Sinus tachycardia Left axis deviation Anterolateral infarct , age undetermined Abnormal ECG When compared with ECG of 14-APR-2023 00:23, Anterior infarct is now Present Anterolateral infarct is now Present T wave inversion now evident in Anterior leads This patient currently has cardiac telemetry ordered; if you would like to modify or discontinue the telemetry order, click here to go to the orders activity to modify/discontinue the order. Assessment/Plan Principal Problem: Scrotal abscess Active Problems: ESRD (end stage renal disease) (CMS/HCC) Scrotal wall abscess Dahiana's gangrene Scrotal abscess, possible dahiana's gangrene in the setting of large hydrocele, immobility and immunosuppression s/p kidney transplant improving well postoperatively with no further areas requiring resection noted on PE today. Vitals stable. Awaiting labs for today. Dressing changed at bedside with . Okay for TOV today. Recommendations: - Okay to remove bowers - Appreciate SICU care - No plan for further surgical intervention today - Appreciate ID recs, please cont broad spectrum abx and tailor as appropriate to culture sensitivities - FU intra-op wound cultures - Appreciate ACS recs - Appreciate transplant nephrology recs for medication management - OK for regular diet - OK for ambulation as able - Trend CBC, transfuse as needed - Please change scrotal dressings BID (urology team will perform AM change and RN to perform PM change) with wet to dry kerlix packed into open scrotal space and cover with abd and mesh underwear - Please include in dressing changes for teaching for home going - Please page urology for questions/concerns/clinical status changes Nayeli Lockhart PA-C Urology Consult Uro: [id number] After 5pm and Weekends: [id number] * Richardson Malave RN - 04/15/2023 6:24 PM EST Wound Care Progress Note Visit Date: 04/15/2023 Patient Name: Jagruti Esparza Reason for Visit: Ostomy pouch change Wound History: S/P colostomy Ostomy Assessment: Ostomy type: colostomy size: 1 03/18 color: red and moist protruding: flush to the skin George: none Functioning: thick form stool Mucocutaneous junction: intact Peristomal skin: clean and stool Pouchin piece [place] flat pouch with a filter Ostomy Education: Patient and and knowledgeable Plan: assess stoma/pouching Wound Team Plan: See patient twice weekly for pouch change Richardson Malave RN-, CWON 04/15/2023 6:24 PM * Cheli Arroyo, OT - 04/15/2023 3:53 PM EST Occupational Therapy Evaluation Patient Name: Jagruti Esparza Today's Date: 04/15/2023 Time Calculation Start Time: 1134 Stop Time: 1201 Time Calculation (min): 27 min Assessment IP OT Assessment OT Assessment: Pt is a 67 year old male who demonstrates decreased strength, balance, activity tolerance, and coordination, which impedes occupational performance. Prognosis: Good Evaluation/Treatment Tolerance: Patient tolerated treatment well Medical Staff Made Aware: Yes End of Session Communication: Bedside nurse, Mechanical Maintenance Technician End of Session Patient Position: Bed, 3 rail up, Alarm off, not on at start of session Plan: Treatment Interventions: ADL retraining, Functional transfer training, UE strengthening/ROM, Endurance training, Cognitive reorientation, Patient/family training, Equipment evaluation/education, Neuromuscular reeducation, Fine motor coordination activities, Compensatory technique education OT Frequency: 3 times per week OT Discharge Recommendations: Moderate intensity level of continued care Equipment Recommended upon Discharge: (Family reported interest in obtaining dimitris lift) OT Recommended Transfer Status: Assist of 2 OT - OK to Discharge: Yes Subjective Current Problem: 1. Scrotal abscess Lower extremity venous duplex bilateral Lower extremity venous duplex bilateral 2. Scrotal wall abscess Case Request Operating Room: Incision and Drainage Perineum Case Request Operating Room: Incision and Drainage Perineum Fungal Culture/Smear Fungal Culture/Smear Fungal Culture/Smear Fungal Culture/Smear Tissue/Wound Culture/Smear Tissue/Wound Culture/Smear Tissue/Wound Culture/Smear Tissue/Wound Culture/Smear Surgical Pathology Exam Surgical Pathology Exam CANCELED: Case Request Operating Room: Incision and Drainage Perineum CANCELED: Case Request Operating Room: Incision and Drainage Perineum 3. Dahiana's gangrene Case Request Operating Room: Incision and Drainage Perineum Case Request Operating Room: Incision and Drainage Perineum Fungal Culture/Smear Fungal Culture/Smear Fungal Culture/Smear Fungal Culture/Smear Tissue/Wound Culture/Smear Tissue/Wound Culture/Smear Tissue/Wound Culture/Smear Tissue/Wound Culture/Smear Surgical Pathology Exam Surgical Pathology Exam CANCELED: Case Request Operating Room: Incision and Drainage Perineum CANCELED: Case Request Operating Room: Incision and Drainage Perineum 4. Lower extremity edema Lower extremity venous duplex bilateral Lower extremity venous duplex bilateral CANCELED: Lower extremity venous duplex bilateral CANCELED: Lower extremity venous duplex bilateral 5. Localized swelling of left lower leg Lower extremity venous duplex bilateral Lower extremity venous duplex bilateral General: Reason for Referral: s/p I&D perineum, dahiana's gangrene washout, and R orchiectomy on 04/14 Past Medical History Relevant to Rehab: PMHx of HTN, CAD, HFpEF, paroxsymal afib/flutter (on diltiazem/eliquis), ESRD s/p kidney transplant 2012 (immunosuppressed on prednisone/azathioprine/tacrolimus), chronic anemia, RLS (on ropinirole), hiatal hernia, GERD, complicated diverticulitis with pericol onic abscess s/p laparoscopic sigmoid resection with end colostomy and umbilical hernia repair 01/2023, bedbound status c/b decub ulcers of sacrum and mid back, WILLIAN, BPH with LUTS, acalculous cholecystitis s/p percutaneous cholecystostomy tube 03/06 who is Prior to Session Communication: Bedside nurse, Physician Patient Position Received: Bed, 3 rail up, Alarm off, not on at start of session Family/Caregiver Present: Yes Caregiver Feedback: Wfe at bedside, active in care General Comment: Pt supine in bed upon arrival, agreeable with minimal encouragement. This date, ptand family report desire to return home at time of discharge and disinterest in higher level of care. Precautions: Medical Precautions: Fall precautions Vital Signs: Heart Rate: 92 (post: 88) Resp: 19 (Post: 21) SpO2: 99 % (Post: 100) BP: (!) 116/45 (Post: 106/49) Pain: Pain Assessment Pain Assessment: 0-10 Pain Score: 7 Pain Type: Acute pain Pain Location: Scrotum Lines/Tubes/Drains: CVC 04/13/23 Triple lumen Internal jugular (Active) Number of days: 1 Urethral Catheter Non-latex 16 Fr. (Active) Number of days: 1 Closed/Suction Drain Lateral RUQ 8 Fr. (Active) Number of days: 49 Colostomy Other LLQ (Active) Number of days: 90 Objective Cognition: Overall Cognitive Status: Within Functional Limits Orientation Level: Oriented X4 Cognition Comments: Flat affect Confusion Assessment Method (CAM) Acute Onset and Fluctuating Course (1A): No Home Living: Type of Home: House Lives With: Spouse (Son lives next door, comes over as needed) Home Adaptive Equipment: Walker rolling or standard, Cane, Wheelchair-manual, Wheelchair-power Home Layout: One level Home Access: Ramped entrance Bathroom Shower/Tub: Walk-in shower Bathroom Toilet: Handicapped height Bathroom Equipment: Grab bars in shower, Shower chair with back, Grab bars around toilet Prior Function: Level of Hart: Needs assistance with functional transfers, Needs assistance with homemaking, Needs assistance with ADLs Receives Help From: Family ADL Assistance: Needs assistance Homemaking Assistance: Needs assistance Ambulatory Assistance: Needs assistance (Son transfers pt to wheelchair with >50% assist per pt.Pt unable to self propel chair, reports recently getting a power wheelchair but not yet actively using it. Pt reports standing with PT and walker weeks ago.) Hand Dominance: Right ADL: Eating Assistance: Maximal Grooming Assistance: Maximal Bathing Assistance: Maximal UE Dressing Assistance: Maximal LE Dressing Assistance: Total Toileting Assistance with Device: Total Activity Tolerance: Endurance: Tolerates less than 10 min exercise, no significant change in vital signs Early Mobility/Exercise Safety Screen: Proceed with mobilization - No exclusion criteria met Balance: Static Sitting Balance Static Sitting-Balance Support: No upper extremity supported Static Sitting-Level of Assistance: Moderate assistance Static Sitting-Comment/Number of Minutes: Pt sat EOB 5-7 minutes with mod A x1. Progressed to briefmin A with cues for anterior lean and BUE support. Flexed posture throughout, unable to correct with cues. Bed Mobility/Transfers: Bed Mobility Bed Mobility: Yes Bed Mobility 1 Bed Mobility 1: Supine to sitting, Sitting to supine Level of Assistance 1: Maximum assistance (x2 assist) Bed Mobility Comments 1: HOB elevated, draw sheet Bed Mobility 2 Bed Mobility 2: Rolling left Level of Assistance 2: Dependent and Transfers Transfer: No Vision: Vision - Basic Assessment Current Vision: Does not wear glasses Sensation: Light Touch: (Baseline neuropathy in feet/hands) Coordination: Movements are Fluid and Coordinated: No Extremities: RUE RUE : Exceptions to WFL (Grossly 3/5 exluding shoulder (2/5). RUE more impaired than LUE per pt report), LUE LUE: (Grossly 3/5 excluding shoulder (2/5).), Outcome Measures: [facility] Daily Activity Putting on and taking off regular lower body clothing: Total Bathing (including washing, rinsing, drying): A lot Putting on and taking off regular upper body clothing: A lot Toileting, which includes using toilet, bedpan or urinal: Total Taking care of personal grooming such as brushing teeth: A lot Eating Meals: A lot Daily Activity - Total Score: 10 ICU Mobility Screen Early Mobility/Exercise Safety Screen: Proceed with mobilization - No exclusion criteria met, Education Documentation Body Mechanics, taught by Cheli Arroyo OT at 04/15/2023 3:52 PM. Learner: Patient Readiness: Acceptance Method: Explanation Response: Verbalizes Understanding Precautions, taught by Cheli Arroyo OT at 04/15/2023 3:52 PM. Learner: Patient Readiness: Acceptance Method: Explanation Response: Verbalizes Understanding ADL Training, taught by Cheli Arroyo OT at 04/15/2023 3:52 PM. Learner: Patient Readiness: Acceptance Method: Explanation Response: Verbalizes Understanding Education Comments No comments found. Goals: Encounter Problems Encounter Problems (Active) ADLs Patient with complete upper body dressing with minimum assist level of assistance donning and doffing all UE clothes Start: 04/15/23 Expected End: 04/29/23 Patient will complete daily grooming tasks with minimal assist level of assistance and PRN adaptiveequipment. Start: 04/15/23 Expected End: 04/29/23 EXERCISE/STRENGTHENING Patient will be educated on BUE HEP for increased ADL performance. Start: 04/15/23 Expected End: 04/29/23 TRANSFERS Patient will perform bed mobility moderate assist level of assistance in order to improve safety and independence with mobility Start: 04/15/23 Expected End: 04/29/23 Patient will complete functional transfer to chair with least restrictive device with maximal assist level of assistance. Start: 04/15/23 Expected End: 04/29/23 04/15/23 at 3:53 PM Cheli Arroyo OT Rehab Office: [phone] * Annetta Lopez LCSW - 04/15/2023 2:16 PM EST Social Work Note: AGRICULTURAL ECONOMIST spoke with the patient's on this date to complete assessment. Patient and live in a home together. Patient's reported that patient has mainly been using the wheelchair to get around. Patient's reported that she has been having the patient use an ambulance to get to appointments. Patient's reported that the patient has home healthcare in the past but it got canceled when the patient started getting sick. Patient's reported that they have no issues affording medications. PT/OT will see patient during stay. Case management will continue to follow to assist withdischarge planning. ASHANTI Rees, GREGORY-S * Storm Hung MD - 04/15/2023 1:32 PM EST Jagruti Esparza is a 67 y.o. male on day 2 of admission presenting with Scrotal abscess. Subjective Interval History: NAEON. Patient remains afebrile. OSH wound cx 04/13 faxed and positive for ESBL E. Coli and E. Faecalis. Patient denies fever, chills, scrotal pain, abdominal pain, nausea, vomiting and diarrhea Review of Systems All other systems reviewed and are negative. Objective Range of Vitals (last 24 hours) Heart Rate: [73-92] Temp: [36.1 C (97 F)-36.8 C (98.2 F)] Resp: [12-24] BP: (105-132)/(39-70) Weight: [79.2 kg (174 lb 9.7 oz)] SpO2: [93 %-100 %] Daily Weight 04/15/23 : 79.2 kg (174 lb 9.7 oz) Body mass index is 23.68 kg/m . Physical Exam Constitutional: General: He is not in acute distress. HENT: Head: Normocephalic. Cardiovascular: Rate and Rhythm: Normal rate and regular rhythm. Pulses: Normal pulses. Heart sounds: Normal heart sounds. No murmur heard. No gallop. Pulmonary: Effort: Pulmonary effort is normal. No respiratory distress. Breath sounds: Normal breath sounds. No wheezing, rhonchi or rales. Abdominal: General: Abdomen is flat. Bowel sounds are normal. There is no distension. Palpations: Abdomen is soft. Tenderness: There is no abdominal tenderness. Comments: Colostomy with loose BM Musculoskeletal: General: No swelling or tenderness. Skin: General: Skin is warm and dry. Coloration: Skin is not jaundiced. Neurological: General: No focal deficit present. Mental Status: He is alert. Comments: Respond questions appropriately Relevant Results Labs Results from last 72 hours Lab Units 04/15/23 0009 04/14/23 1003 04/14/23 0745 WBC AUTO x10*3/uL 7.9 6.7 6.1 HEMOGLOBIN g/dL 8.1* 8.2* 7.5* HEMATOCRIT % 25.5* 25.9* 24.1* PLATELETS AUTO x10*3/uL 282 256 243 Results from last 72 hours Lab Units 04/15/23 0009 04/14/23 1003 04/13/23 2242 SODIUM mmol/L 134* 133* 132* POTASSIUM mmol/L 4.6 4.9 5.1 CHLORIDE mmol/L 108* 104 105 CO2 mmol/L 23 18* 21 BUN mg/dL 13 14 15 CREATININE mg/dL 0.51 0.49* 0.59 GLUCOSE mg/dL 127* 89 123* CALCIUM mg/dL 11.0* 10.9* 10.4 ANION GAP mmol/L 8* 16 11 EGFR mL/min/1.73m*2 >90 >90 >90 PHOSPHORUS mg/dL 2.4* 3.5 2.9 Results from last 72 hours Lab Units 04/15/23 0009 04/14/23 1003 04/13/23 2242 04/13/23 1448 ALK PHOS U/L -- -- 54 52 BILIRUBIN TOTAL mg/dL -- -- 0.5 0.7 BILIRUBIN DIRECT mg/dL -- -- 0.2 -- PROTEIN TOTAL g/dL -- -- 5.3* 5.6* ALT U/L -- -- 12 12 AST U/L -- -- 12 30 ALBUMIN g/dL 2.4* 2.7* 2.2* 2.1* Estimated Creatinine Clearance: 125 mL/min (by C-G formula based on SCr of 0.51 mg/dL). No results found for: CRP Imaging === Results for orders placed during the hospital encounter of 04/13/23 === XR chest 1 view [[id number]] 04/15/2023 Status: Normal 1. Slight improvement in right basilar aeration with continued left basilar atelectasis/effusion. Signed by: Sekou Wilson 04/15/2023 10:44 AM Dictation workstation: [id number] Microbiology Susceptibility data from last 14 days. Collected Specimen Info Organism 04/13/23 Swab from [facility] Escherichia coli 04/13/23 Swab from [facility] Escherichia coli 04/13 UCx NG 04/13 scrotal abscess swab cx #1: E. Coli 04/13 scrotal abscess swab cx #2: E. Coli 04/13 Testicle wound cx: E. Faecalis S vanc, ampicillin, daptomycin, ESBL E. Coli S Unasyn, Zosyn, Ertapenem, Cefta/Naman and Gentamicin, and scant CoNS 02/25 bile aspirate fluid cx: ESBL E. 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 Coli) on 02/2023, and recent ND who preesnted to OSH due to 4 days of progressive erythema, pain, swelling with pustular discharge on his scrotum. He doesn't recall any trauma or wound on his scrotum before this. He has hydrocele. OSH CT scan showed largeabscess and was transferred on 04/13 to [facility] . He underwent reversal of apixaban and had emergent surgery with I/D, right orchiectomy (04/14). Operative finding was described as gush of purulent dishwater fluid . Patient on daptomycin, metropenem and clindamycin. ID was consulted for dahiana abscess antibiotic management. 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 Faecalis and scant CoNS. OR cx positive for E. Coli. Recommendations: -Continue daptomycin 8mg/kg IV daily. Monitor CPK level weekly -Continue meropenem 1gr q8hr -Recommend to discontinue clindamycin -Continue to follow up cultures ID will follow up patient Plan discussed with Dr Mercedes Hung MD PGY-5 ID Fellow Team B pager [phone] Associated attestation - Tano Long MD - 04/15/2023 5:31 PM EST I saw and evaluated the patient. I personally obtained the florez and critical portions of the historyand physical exam or was physically present for florez and critical portions performed by the resident/fellow. I reviewed the resident/fellow's documentation and discussed the patient with the resident/f chance. I agree with the resident/fellow's medical decision making as documented in the note. * Jeremie Yepez MD - 04/15/2023 8:34 AM EST Jagruti Esparza is a 67 y.o. male on day 2 of admission presenting with Scrotal abscess. Subjective Overnight: 500 LR given for soft bp This AM Report pain is well controlled On RA Objective Physical Exam Vitals reviewed. Constitutional: General: He is awake. Neck: Comments: L internal jugular central line Cardiovascular: Rate and Rhythm: Normal rate and regular rhythm. Pulmonary: Effort: Pulmonary effort is normal. Breath sounds: Normal breath sounds and air entry. Abdominal: General: Abdomen is flat. Palpations: Abdomen is soft. Comments: Cholecystotomy drain in place, colostomy in place Musculoskeletal: Comments: R Upper arm AVF Skin: Comments: Pressure ulcer pain on lower back and buttocks Neurological: Mental Status: He is alert. Psychiatric: Behavior: Behavior is cooperative. Last Recorded Vitals Blood pressure (!) 106/43, pulse 82, temperature 36.3 C (97.3 F), temperature source Temporal, resp. rate 14, height 1.829 m (6'), weight 79.2 kg (174 lb 9.7 oz), SpO2 98 %. Intake/Output last 3 Shifts: I/O last 3 completed shifts: In: 5581 (70.5 mL/kg) [I.V.:2775 (35 mL/kg); Blood:1228; Other:20; IV Piggyback:1558] Out: 3215 (40.6 mL/kg) [Urine:3010 (1.1 mL/kg/hr); Drains:205] Weight: 79.2 kg Relevant Results Results for orders placed or performed during the hospital encounter of 04/13/23 (from the past 24 hour(s)) Electrocardiogram, 12-lead PRN ACS symptoms Result Value Ref Range Ventricular Rate 103 BPM Atrial Rate 103 BPM [place] Interval 160 ms QRS Duration 94 ms QT Interval 358 ms QTC Calculation(Bazett) 468 ms P [place] 83 degrees R [place] -39 degrees T [place] 82 degrees QRS Count 17 beats Q Onset 214 ms P Onset 134 ms P Offset 187 ms T Offset 393 ms QTC Fredericia 429 ms CBC Result Value Ref Range WBC 6.7 4.4 - 11.3 x10*3/uL nRBC 0.0 0.0 - 0.0 /100 WBCs RBC 3.13 (L) 4.50 - 5.90 x10*6/uL Hemoglobin 8.2 (L) 13.5 - 17.5 g/dL Hematocrit 25.9 (L) 41.0 - 52.0 % MCV 83 80 - 100 fL MCH 26.2 26.0 - 34.0 pg MCHC 31.7 (L) 32.0 - 36.0 g/dL RDW 20.1 (H) 11.5 - 14.5 % Platelets 256 150 - 450 x10*3/uL Renal Function Panel Result Value Ref Range Glucose 89 74 - 99 mg/dL Sodium 133 (L) 136 - 145 mmol/L Potassium 4.9 3.5 - 5.3 mmol/L Chloride 104 98 - 107 mmol/L Bicarbonate 18 (L) 21 - 32 mmol/L Anion Gap 16 10 - 20 mmol/L Urea Nitrogen 14 6 - 23 mg/dL Creatinine 0.49 (L) 0.50 - 1.30 mg/dL eGFR >90 >60 mL/min/1.73m*2 Calcium 10.9 (H) 8.6 - 10.6 mg/dL Phosphorus 3.5 2.5 - 4.9 mg/dL Albumin 2.7 (L) 3.4 - 5.0 g/dL Magnesium Result Value Ref Range Magnesium 2.13 1.60 - 2.40 mg/dL POCT GLUCOSE Result Value Ref Range POCT Glucose 126 (H) 74 - 99 mg/dL POCT GLUCOSE Result Value Ref Range POCT Glucose 119 (H) 74 - 99 mg/dL POCT GLUCOSE Result Value Ref Range POCT Glucose 115 (H) 74 - 99 mg/dL POCT GLUCOSE Result Value Ref Range POCT Glucose 135 (H) 74 - 99 mg/dL Renal Function Panel Result Value Ref Range Glucose 127 (H) 74 - 99 mg/dL Sodium 134 (L) 136 - 145 mmol/L Potassium 4.6 3.5 - 5.3 mmol/L Chloride 108 (H) 98 - 107 mmol/L Bicarbonate 23 21 - 32 mmol/L Anion Gap 8 (L) 10 - 20 mmol/L Urea Nitrogen 13 6 - 23 mg/dL Creatinine 0.51 0.50 - 1.30 mg/dL eGFR >90 >60 mL/min/1.73m*2 Calcium 11.0 (H) 8.6 - 10.6 mg/dL Phosphorus 2.4 (L) 2.5 - 4.9 mg/dL Albumin 2.4 (L) 3.4 - 5.0 g/dL Magnesium Result Value Ref Range Magnesium 1.98 1.60 - 2.40 mg/dL Coagulation Screen Result Value Ref Range Protime 13.6 (H) 9.8 - 12.8 seconds INR 1.2 (H) 0.9 - 1.1 aPTT 20 (L) 27 - 38 seconds CBC Result Value Ref Range WBC 7.9 4.4 - 11.3 x10*3/uL nRBC 0.0 0.0 - 0.0 /100 WBCs RBC 3.14 (L) 4.50 - 5.90 x10*6/uL Hemoglobin 8.1 (L) 13.5 - 17.5 g/dL Hematocrit 25.5 (L) 41.0 - 52.0 % MCV 81 80 - 100 fL MCH 25.8 (L) 26.0 - 34.0 pg MCHC 31.8 (L) 32.0 - 36.0 g/dL RDW 21.2 (H) 11.5 - 14.5 % Platelets 282 150 - 450 x10*3/uL Calcium, Ionized Result Value Ref Range POCT Calcium, Ionized 1.78 (H) 1.1 - 1.33 mmol/L POCT GLUCOSE Result Value Ref Range POCT Glucose 123 (H) 74 - 99 mg/dL POCT GLUCOSE Result Value Ref Range POCT Glucose 107 (H) 74 - 99 mg/dL This patient currently has cardiac telemetry ordered; if you would like to modify or discontinue the telemetry order, click here to go to the orders activity to modify/discontinue the order. This patient has a central line Reason for the central line remaining today? No peripheral IV Assessment/Plan Principal Problem: Scrotal abscess Active Problems: ESRD (end stage renal disease) ([facility]) Scrotal wall abscess Dahiana's gangrene Jagruti Esparza is a 67 y/o M with a history of ESRD s/p 2013 kidney transplant, afib, HFpEF (TTE 03/06: EF 50-55%, mild to mod dilated RA, mild elevated RVSP, mild aortic stenosis), CAD, mild aortic stenosis, GERD, WILLIAN, and RLS. presenting to SICU from OR s/p I&D perineum, dahiana's gangrene washout, and R orchiectomy on 04/14. Plan: NEURO: H/o RLS. Acute post-op pain. A&Ox4 in SICU - ongoing neuro and pain assessments - PRN hydromorphone for pain control - PRN atarax for anxiety - PT/OT consult - Home meds: Ropinirole CV: History of afib, CAD (NSTEMI 03/06), HFpEF, mild aortic stenosis. Baseline echo (TTE 03/06: EF 50-55%, mild to mod dilated RA, mild elevated RVSP, mild aortic stenosis). Arrived to SICU awake andextubated. Hemodynamically stable off all pressors. S/p 500 ml albumen on 04/13 - continuous EKG/abp monitoring - Goal bp < 140/90 per nephrology - Restarting Diltiazem 90 mg BID with holding parameter ( home dose is 180 mg XL daily ) - Home meds: apixaban, empagliflozin, ASA, atorvastatin. PULM: No pertinent history. Arrived to SICU extubated. Placed on facemask for comfort ( Spo2 100% on RA) - Not requiring O2 - spo2 100% - Q1h incentive spirometer while awake - additional pulm toilet prn. - F/U post op CXR GI: H/o diverticulitis s/p laparoscopic sigmoid resection with end colostomy, acalculous cholecystitis s/p percutaneous cholecystostomy tube 03/06 - Consult ACS for cholecystostomy drain ( scheduled for an outpatient appointment in apr ) - IR guided cholangiogram today - On cardiac diet - PPI for GI prophylaxis : ESRD s/p kidney transplant 2012. Oliguric in OR: 37 ml UOP. Baseline creatinine 0.6-0.8. New bowers placed in OR. Hypercalcemia s/p 500 ml NS per nephrology - Transplant medicine consulted for IS treatment - Volume resuscitation as needed - Maintain U/O >0.5ml/kg/hr - Check renal function panel daily - Replete electrolytes to goal K>4, Mg>2, Phos>2.5, ionized Ca>1.10. HEME: Acute blood loss anemia/chronic anemia. OR EBL 100. HGB 7.2 s/p 2 U PRBCs on 04/13 . Pending repeated labs - Check CBC and coags post op and daily - SCDs and SQH for DVT prophylaxis - hold apixaban for now - ongoing monitoring for s/s bleeding ENDO: No history of DM or thyroid disease - Q4h BG - SSI Lispro per ICU protocol. ID: Dahiana's gangrene s/p I&D/washout. Afebrile. WBC 10. Immunosuppressed (on prednisone/tacrolimus). - temp q4h, wbc daily - Cont meropenum, daptomycin, clindamycin pending culture results - ID following - ongoing monitoring for s/s infection - Pending result from intra-op cultures Lines: - LIJ triple lumen (04/13) - difficult Piv access , can do to floor with triple lumen Dispo: transfer to floor today. Patient seen and discussed with ICU attending Dr. Graciela Yepez MD SICU phone # [phone] * Wyatt Bustamante MD - 04/15/2023 7:49 AM EST Jagruti Esparza is a 67 y.o. male on day 2 of admission presenting with Scrotal abscess. Subjective Patient recovering well postoperatively. Pain is well controlled. Patient denies n/v, fever/chills,cp/sob, and worsening abdominal pain. Objective Physical Exam General: Laying in bed. NAD. Eyes: EOMI ENMT: no apparent injury, no lesions seen, MMM Head/neck: NCAT Cardiac: regular rate in chart Pulm: normal respiratory effort on NC GI: soft, NT/ND, end colostomy with stool and gas output, perc kerline with drainage : uncircumcised phallus with bowers in place draining CYU, scrotum with large incision loosely approximated with nylon sutures and packed with kerlix, no further purulent drainage noted, no hemorrhage noted, ecchymosis of inferior scrotum Msk: DARDEN Extremities: DARDEN at baseline Skin: pallor, decubitus ulcers noted on sacrum and mid back covered with mepilex Neuro: AOx3 Psych: appropriate mood and behavior Last Recorded Vitals Blood pressure (!) 106/43, pulse 82, temperature 36.1 C (97 F), resp. rate 14, height 1.829 m (6'),weight 79.2 kg (174 lb 9.7 oz), SpO2 98 %. Intake/Output last 3 Shifts: I/O last 3 completed shifts: In: 5581 (70.5 mL/kg) [I.V.:2775 (35 mL/kg); Blood:1228; Other:20; IV Piggyback:1558] Out: 3215 (40.6 mL/kg) [Urine:3010 (1.1 mL/kg/hr); Drains:205] Weight: 79.2 kg Relevant Results Scheduled medications clindamycin, 900 mg, intravenous, q8h dilTIAZem SR, 90 mg, oral, BID heparin (porcine), 5,000 Units, subcutaneous, q8h TREMAINE insulin lispro, 0-5 Units, subcutaneous, q4h meropenem, 1 g, intravenous, q8h pantoprazole, 40 mg, oral, Daily before breakfast polyethylene glycol, 17 g, oral, Daily predniSONE, 5 mg, oral, Daily tacrolimus, 0.5 mg, oral, q12h TREMAINE Continuous medications PRN medications PRN medications: dextrose 10 % in water (D10W), dextrose, glucagon, HYDROmorphone, hydrOXYzine HCL Results for orders placed or performed during the hospital encounter of 04/13/23 (from the past 24 hour(s)) Electrocardiogram, 12-lead PRN ACS symptoms Result Value Ref Range Ventricular Rate 103 BPM Atrial Rate 103 BPM [place] Interval 160 ms QRS Duration 94 ms QT Interval 358 ms QTC Calculation(Bazett) 468 ms P [place] 83 degrees R [place] -39 degrees T [place] 82 degrees QRS Count 17 beats Q Onset 214 ms P Onset 134 ms P Offset 187 ms T Offset 393 ms QTC Fredericia 429 ms CBC Result Value Ref Range WBC 6.7 4.4 - 11.3 x10*3/uL nRBC 0.0 0.0 - 0.0 /100 WBCs RBC 3.13 (L) 4.50 - 5.90 x10*6/uL Hemoglobin 8.2 (L) 13.5 - 17.5 g/dL Hematocrit 25.9 (L) 41.0 - 52.0 % MCV 83 80 - 100 fL MCH 26.2 26.0 - 34.0 pg MCHC 31.7 (L) 32.0 - 36.0 g/dL RDW 20.1 (H) 11.5 - 14.5 % Platelets 256 150 - 450 x10*3/uL Renal Function Panel Result Value Ref Range Glucose 89 74 - 99 mg/dL Sodium 133 (L) 136 - 145 mmol/L Potassium 4.9 3.5 - 5.3 mmol/L Chloride 104 98 - 107 mmol/L Bicarbonate 18 (L) 21 - 32 mmol/L Anion Gap 16 10 - 20 mmol/L Urea Nitrogen 14 6 - 23 mg/dL Creatinine 0.49 (L) 0.50 - 1.30 mg/dL eGFR >90 >60 mL/min/1.73m*2 Calcium 10.9 (H) 8.6 - 10.6 mg/dL Phosphorus 3.5 2.5 - 4.9 mg/dL Albumin 2.7 (L) 3.4 - 5.0 g/dL Magnesium Result Value Ref Range Magnesium 2.13 1.60 - 2.40 mg/dL POCT GLUCOSE Result Value Ref Range POCT Glucose 126 (H) 74 - 99 mg/dL POCT GLUCOSE Result Value Ref Range POCT Glucose 119 (H) 74 - 99 mg/dL POCT GLUCOSE Result Value Ref Range POCT Glucose 115 (H) 74 - 99 mg/dL POCT GLUCOSE Result Value Ref Range POCT Glucose 135 (H) 74 - 99 mg/dL Renal Function Panel Result Value Ref Range Glucose 127 (H) 74 - 99 mg/dL Sodium 134 (L) 136 - 145 mmol/L Potassium 4.6 3.5 - 5.3 mmol/L Chloride 108 (H) 98 - 107 mmol/L Bicarbonate 23 21 - 32 mmol/L Anion Gap 8 (L) 10 - 20 mmol/L Urea Nitrogen 13 6 - 23 mg/dL Creatinine 0.51 0.50 - 1.30 mg/dL eGFR >90 >60 mL/min/1.73m*2 Calcium 11.0 (H) 8.6 - 10.6 mg/dL Phosphorus 2.4 (L) 2.5 - 4.9 mg/dL Albumin 2.4 (L) 3.4 - 5.0 g/dL Magnesium Result Value Ref Range Magnesium 1.98 1.60 - 2.40 mg/dL Coagulation Screen Result Value Ref Range Protime 13.6 (H) 9.8 - 12.8 seconds INR 1.2 (H) 0.9 - 1.1 aPTT 20 (L) 27 - 38 seconds CBC Result Value Ref Range WBC 7.9 4.4 - 11.3 x10*3/uL nRBC 0.0 0.0 - 0.0 /100 WBCs RBC 3.14 (L) 4.50 - 5.90 x10*6/uL Hemoglobin 8.1 (L) 13.5 - 17.5 g/dL Hematocrit 25.5 (L) 41.0 - 52.0 % MCV 81 80 - 100 fL MCH 25.8 (L) 26.0 - 34.0 pg MCHC 31.8 (L) 32.0 - 36.0 g/dL RDW 21.2 (H) 11.5 - 14.5 % Platelets 282 150 - 450 x10*3/uL Calcium, Ionized Result Value Ref Range POCT Calcium, Ionized 1.78 (H) 1.1 - 1.33 mmol/L POCT GLUCOSE Result Value Ref Range POCT Glucose 123 (H) 74 - 99 mg/dL XR chest 1 view Result Date: 04/13/2023 Interpreted By: Bharath Ramirez, STUDY: XR CHEST 1 VIEW; 04/13/2023 5:16 pm INDICATION: Signs/Symptoms:Left IJ Central line placement. COMPARISON: 02/25/2023 ACCESSION NUMBER(S): [id number] ORDERING CLINICIAN: TANO PEREZ FINDINGS: Left IJ central venous line with its tip over the right atrium. Ap pearance is similar to the prior. No evidence of a pneumothorax. CARDIOMEDIASTINAL SILHOUETTE: Cardiomediastinal silhouette is normal in size and configuration. LUNGS: Increased perihilar lung markings with extends to the bibasilar regions. There is dense airspace disease at the left lung base with silhouetting of the hemidiaphragm. There is a small left pleural effusion. ABDOMEN: No remarkable upper abdominal findings. BONES: No acute osseous changes. 1. Left IJ central venous line with its tip over the right atrium. 2. Dense left basilar airspace disease with small left effusion. Underlying pneumonia and atelectasis in the differential. 3. Mild interstitial edema noted MACRO: None Signed by: Bharath Ramirez 04/13/2023 5:18 PM Dictation workstation: [id number] Assessment/Plan Principal Problem: Scrotal abscess Active Problems: Scrotal wall abscess Dahiana's gangrene ESRD (end stage renal disease) ([facility]) Scrotal abscess, possible dahiana's gangrene in the setting of large hydrocele, immobility and immunosuppression s/p kidney transplant improving well postoperatively with no further areas requiring resection noted on PE today. Recommendations: - Appreciate SICU care - No plan for further surgical intervention today - Appreciate ID recs, please cont broad spectrum abx and tailor as appropriate to culture sensitivities - FU intra-op wound cultures - Appreciate ACS recs, obtain IR cholangiogram - Appreciate transplant nephrology recs for medication management - OK for regular diet - OK for ambulation as able - Trend CBC, transfuse as needed - Please change scrotal dressings BID (urology team will perform AM change and RN to perform PM change) with wet to dry kerlix packed into open scrotal space and cover with abd and mesh underwear - Please include in dressing changes for teaching for home going - Please page urology for questions/concerns/clinical status changes Discussed with attending, Dr. Ifrah Bustamante MD Urology - PGY1 Pager [phone] * Mariana Tariq RN - 04/14/2023 3:34 PM EST Wound Care Progress Note Visit Date: 04/14/2023 Patient Name: Jagruti Esparza Reason for Visit: Colostomy assessment and pouch check Colostomy Other LLQ (Active) Stomal Appliance 1 piece;Clean;Dry;Intact 04/14/23 1533 Site/Stoma Assessment Clean;Intact 04/14/23 1533 Peristomal Assessment LAYO 04/14/23 1533 Treatment Placement checked 04/14/23 1533 Drainage Characteristics Brown 04/14/23 1533 Output (mL) 0 mL 04/14/23 0400 Ostomy type: Colostomy Size: not measured Color: red Protruding: budded Functioning: soft brown stool Peristomal skin: not assessed INTACT Pouching: Clean, dry, and intact [place] flat 1 piece pouch Ostomy Education: The patient is knowledgeable in ostomy care, but needs assistance while inpatient. Wound Team Plan: Assess stoma/pouching Twice a week and as needed while inpatient. Mariana Tariq RN 04/14/2023 3:34 PM * Yue Nguyen PT - 04/14/2023 1:32 PM EST Physical Therapy Physical Therapy Evaluation Patient Name: Jagruti Esparza Today's Date: 04/14/2023 Time Calculation Start Time: 1152 Stop Time: 1210 Time Calculation (min): 18 min Assessment/Plan PT Assessment PT Assessment Results: Decreased strength, Decreased range of motion, Decreased endurance, Impairedbalance, Decreased mobility, Pain, Decreased skin integrity, Impaired sensation Rehab Prognosis: Fair Barriers to Discharge: low PLOF Evaluation/Treatment Tolerance: Patient limited by pain Medical Staff Made Aware: Yes Strengths: Support of Caregivers Barriers to Participation: Comorbidities, Premorbid level of function End of Session Communication: Bedside nurse Assessment Comment: Pt presents with generalized debilty and weakness, pain, and overall impairments in functional mobility. Pt is bedbound at baseline and dependent for transfers OOB. Pt will benefit from skilled PT to increase activity tolerance and decrease further immobility complications. Recommending moderate intensity therapy at D/C however pt stating he will refuse and wants to go home. Educated pt and on need for appropriate equipment at home (dimitris lift, hospital bed). End of Session Patient Position: Bed, 3 rail up, Alarm off, not on at start of session IP OR SWING BED PT PLAN Inpatient or Swing Bed: Inpatient PT Plan Treatment/Interventions: Bed mobility, Transfer training, Positioning, Postural re-education, Home exercise program, Therapeutic activity, Therapeutic exercise, Range of motion, Endurance training, Strengthening, Balance training, Neuromuscular re-education, Wheelchair management PT Plan: Skilled PT PT Frequency: 2 times per week PT Discharge Recommendations: Moderate intensity level of continued care Equipment Recommended upon Discharge: (dimitris lift and hospital bed) PT Recommended Transfer Status: Total assist PT - OK to Discharge: Yes Subjective General Visit Information: Reason for Referral: s/p I&D perineum, dahiana's gangrene washout, and R orchiectomy on 04/14 Past Medical History Relevant to Rehab: PMHx of HTN, CAD, HFpEF, paroxsymal afib/flutter (on diltiazem/eliquis), ESRD s/p kidney transplant 2012 (immunosuppressed on prednisone/azathioprine/tacrolimus), chronic anemia, RLS (on ropinirole), hiatal hernia, GERD, complicated diverticulitis with pericol onic abscess s/p laparoscopic sigmoid resection with end colostomy and umbilical hernia repair 01/2023, bedbound status c/b decub ulcers of sacrum and mid back, WILLIAN, BPH with LUTS, acalculous cholecystitis s/p percutaneous cholecystostomy tube 03/06 who is Home Living: Prior Level of Function: Prior Function Per Pt/Caregiver Report Level of Hart: Needs assistance with functional transfers, Needs assistance with homemaking, Needs assistance with ADLs Receives Help From: Family Vocational: Retired Prior Function Comments: pt is bedbound as of last few months; son dependently transfers him OOB toPWC occasionally but reports he has not been getting into his PWC lately due to pain. Pt reports 3-4 weeks ago he was able to stand with assist at a walker with home health PT. Precautions: Precautions Medical Precautions: Fall precautions Vital Signs: Vital Signs Heart Rate: 95 Resp: 23 SpO2: 100 % BP: (!) 120/47 (120/53) MAP (mmHg): 66 (POST: 72) Objective Lines/Tubes/Drains: CVC 04/13/23 Triple lumen Internal jugular (Active) Number of days: 0 Urethral Catheter Non-latex 16 Fr. (Active) Number of days: 0 Closed/Suction Drain Lateral RUQ 8 Fr. (Active) Number of days: 48 Colostomy Other LLQ (Active) Number of days: 89 Continuous Medications/Drips: lactated Ringer's, 100 mL/hr, Last Rate: 100 mL/hr (04/14/23 0015) Pain: Pain Assessment Pain Assessment: 0-10 Pain Score: 7 Pain Type: Acute pain Pain Location: Scrotum Pain Orientation: Right Pain Interventions: Repositioned Cognition: Cognition Orientation Level: Oriented X4 Extremity/Trunk Assessments: Strength: Strength Comments: Generalized weakness RUE RUE : Exceptions to WFL (Grossly 3/5 strength) LUE LUE: Exceptions to WFL (Grossly 3/5 strength) RLE RLE : Exceptions to WFL Strength RLE R Hip Flexion: 2/5 R Knee Flexion: 3/5 R Knee Extension: 2+/5 R Ankle Dorsiflexion: 4-/5 R Ankle Plantar Flexion: 4-/5 LLE LLE : Exceptions to WFL Strength LLE L Hip Flexion: 2-/5 L Knee Flexion: 3-/5 L Knee Extension: 2-/5 L Ankle Dorsiflexion: 2-/5 L Ankle Plantar Flexion: 2-/5 General Assessments: Strength Strength Comments: Generalized weakness Activity Tolerance Endurance: Tolerates 10 - 20 min exercise with multiple rests Activity Tolerance Comments: Pt unable to tolerate attempt to get to EOB due to scrotal area pain. Sensation Light Touch: (BLE neuropathy) Functional Assessments: Bed Mobility Bed Mobility: No (Pt refused EOB sitting this session 2/2 scrotal pain from surgery) Outcome Measures: [facility] Basic Mobility Turning from your back to your side while in a flat bed without using bedrails: Total Moving from lying on your back to sitting on the side of a flat bed without using bedrails: Total Moving to and from bed to chair (including a wheelchair): Total Standing up from a chair using your arms (e.g. wheelchair or bedside chair): Total To walk in hospital room: Total Climbing 3-5 steps with railing: Total Basic Mobility - Total Score: 6 Confusion Assessment Method-ICU (CAM-ICU) Feature 1: Acute Onset or Fluctuating Course: Negative Feature 2: Inattention: Negative Overall CAM-ICU: Negative FSS-ICU Ambulation: Unable to attempt due to weakness Rolling: Unable to perform Sitting: Unable to perform Transfer [id number]: Unable to perform Transfer [id number]-Dno: Unable to perform Total Score: 0 Encounter Problems Encounter Problems (Active) Balance STG - Maintains static sitting balance with upper extremity support >5 minutes with modA x 1 Start: 04/14/23 Expected End: 04/28/23 Transfers STG - Patient to transfer to and from sit to supine modA x 1 Start: 04/14/23 Expected End: 04/28/23 STG - Patient will roll modA x 1 Start: 04/14/23 Expected End: 04/28/23 Education Documentation Body Mechanics, taught by Yue Nguyen PT at 04/14/2023 1:31 PM. Learner: Patient Readiness: Acceptance Method: Explanation Response: Verbalizes Understanding Mobility Training, taught by Yue Nguyen PT at 04/14/2023 1:31 PM. Learner: Patient Readiness: Acceptance Method: Explanation Response: Verbalizes Understanding Education Comments No comments found. 04/14/23 at 1:32 PM Yue Nguyen PT Rehab Office: [phone] * Elin Drake MD - 04/14/2023 9:54 AM EST Reason For Consult Transfer to medicine requested History Of Present Illness Jagruti Esparza is a 67 y.o. male with PMHx of HTN, CAD, HFpEF (TTE 03/06: EF 50- 55%, mild to mod dilated RA, mild elevated RVSP, mild aortic stenosis), paroxsymal afib/flutter (on diltiazem/eliquis),ESRD s/p kidney transplant 2012 (immunosuppressed on prednisone/azathioprine/tacrolimus), chronic anemia, RLS (on ropinirole), hiatal hernia, GERD, complicated diverticulitis with pericolonic abscesss/p laparoscopic sigmoid resection with end colostomy and umbilical hernia repair 01/2023, bedboundstatus c/b decub ulcers of sacrum and mid back, WILLIAN, BPH with LUTS, acalculous cholecystitis s/p percutaneous cholecystostomy tube 03/06 (surgery deferred d/t elevated troponin, found to have chronictotal LAD occlusion) who is POD 1 s/p I&D perineum, dahiana's gangrene washout, and R orchiectomy on 04/14. Medicine consulted for transfer request. Surgery was uncomplicated with EBL documented 100 cc and patient extubated prior to transfer to ICU. In ICU, patient briefly required phenylephrine for blood pressure support, but was weaned off on 04-13-2023 evening. Since then, has been hemodynamically stable and breathing well on room air. ACS consulted for recommendations on cholecystostomy drain. Transplant nephrology consulted for managementof transplant medications. Patient was given 1 unit packed RBC for acute blood loss anemia with subsequent hemoglobin stable at 7.5 on 04-14-2023 morning. For management of Dahiana's gangrene, patient is continued on clindamycin 900 mg every 8 hours, meropenem 1 g every 8 hours, daptomycin 400 mg daily. Regarding cardiac history, subcu heparin is being resumed today. Eliquis has been held given bleeding postop. From surgical standpoint, no further surgical intervention is planned. Urology has recommended continuing broad spectrum antibiotics and changing scrotal dressing twice daily. When speaking with patient, he states that he does not have chest pain, shortness of breath, lightheadedness, dizziness, significant abdominal pain, nausea, vomiting at this time. He states that he does not have palpitations, historically has been intermittently with A-fib. He states that he has occasional episodes of anxiety which can present as chest pain. He has noticed some swelling in lower extremities occasionally. Regarding hypertension, patient does not take any medications and it has been well-controlled. He c ontinues to take tacrolimus, prednisone, azathioprine for immunosuppression status post kidney transplant. Currently, he states that his pain is well- controlled postop. Breathing well on room air. Past Medical History He has a past medical history of PONV (postoperative nausea and vomiting). Surgical History He has a past surgical history that includes Other surgical history (12/25/2020); Other surgical history (12/25/2020); Other surgical history (12/25/2020); Other surgical history (12/25/2020); Other surgical history (12/25/2020); Other surgical history (07/11/2021); CT guided imaging for abscess drain (01/11/2023); Cardiac catheterization (N/A, 03/02/2023); Gallbladder surgery; and Colostomy. Social History He reports that he has never smoked. He has never used smokeless tobacco. He reports that he does not currently use alcohol. He reports that he does not use drugs. Family History Family History Problem Relation Name Age of Onset Diabetes type I Mother Other (malignant neoplasm of colon) Mother Other (high serum cholestanol) Mother Other (heart problem) Father Other (CABG) Father Other (cardiovascular disease) Father Allergies Cephalexin, Tobramycin, Meperidine, Erythromycin, and Penicillins Review of Systems Review of Systems Constitutional: Negative for fever. HENT: Negative for facial swelling. Respiratory: Negative for cough and shortness of breath. Cardiovascular: Positive for leg swelling. Negative for chest pain and palpitations. Gastrointestinal: Negative for abdominal pain, nausea and vomiting. Skin: Negative for rash. Neurological: Negative for dizziness, facial asymmetry and light-headedness. Physical Exam General: Patient laying in bed comfortably, calm and conversant, no apparent distress Cardiovascular: Regular rate and rhythm, no murmurs, rubs, gallops Pulmonary: Diminished lung sounds noted bilaterally. No conversational dyspnea noted Abdomen: Soft, nontender, nondistended, normoactive bowel sounds. Cholecystostomy drain in place onright side. Ileostomy bag in place on left side. No surrounding erythema or swelling noted. Extremities: Right greater than left lower extremity swelling noted (trace to 1+ edema) Neuro: Grossly alert and oriented. Patient able to move all extremities. Last Recorded Vitals Blood pressure 129/59, pulse 104, temperature 36.2 C (97.2 F), temperature source Temporal, resp. rate 23, height 1.829 m (6'), weight 79.2 kg (174 lb 9.7 oz), SpO2 100 %. Relevant Results Current Outpatient Medications Medication Instructions apixaban (ELIQUIS) 5 mg, oral, Every 12 hours atorvastatin (LIPITOR) 40 mg, oral, Nightly azaTHIOprine (IMURAN) 50 mg, oral, Daily DILT-XR 180 mg, oral, Daily empagliflozin (JARDIANCE) 10 mg, oral, Daily magnesium oxide (MAG-OX) 400 mg, oral, Daily pantoprazole (PROTONIX) 20 mg, oral, 2 times daily polyethylene glycol (GLYCOLAX, MIRALAX) 17 g, oral, Daily predniSONE (DELTASONE) 5 mg, oral, Every morning Prograf 0.5 mg, oral, 2 times daily rOPINIRole (REQUIP) 1 mg, oral, Nightly sodium bicarbonate 650 mg, oral, 3 times daily sodium chloride 1 g, oral, 3 times daily sulfamethoxazole-trimethoprim (Bactrim) 400-80 mg tablet 1 tablet, oral, Every morning Scheduled medications clindamycin, 900 mg, intravenous, q8h heparin (porcine), 5,000 Units, subcutaneous, q8h TREMAINE insulin lispro, 0-5 Units, subcutaneous, q4h meropenem, 1 g, intravenous, q8h pantoprazole, 40 mg, oral, Daily before breakfast polyethylene glycol, 17 g, oral, Daily predniSONE, 5 mg, oral, Daily tacrolimus, 0.5 mg, oral, q12h TREMAINE Continuous medications lactated Ringer's, 100 mL/hr, Last Rate: 100 mL/hr (04/14/23 0015) PRN medications PRN medications: dextrose 10 % in water (D10W), dextrose, glucagon, HYDROmorphone, hydrOXYzine HCL Results for orders placed or performed during the hospital encounter of 04/13/23 (from the past 24 hour(s)) Comprehensive metabolic panel Result Value Ref Range Glucose 118 (H) 74 - 99 mg/dL Sodium 130 (L) 136 - 145 mmol/L Potassium 6.6 (HH) 3.5 - 5.3 mmol/L Chloride 105 98 - 107 mmol/L Bicarbonate 21 21 - 32 mmol/L Anion Gap 11 10 - 20 mmol/L Urea Nitrogen 14 6 - 23 mg/dL Creatinine 0.55 0.50 - 1.30 mg/dL eGFR >90 >60 mL/min/1.73m*2 Calcium 10.5 8.6 - 10.6 mg/dL Albumin 2.1 (L) 3.4 - 5.0 g/dL Alkaline Phosphatase 52 33 - 136 U/L Total Protein 5.6 (L) 6.4 - 8.2 g/dL AST 30 9 - 39 U/L Bilirubin, Total 0.7 0.0 - 1.2 mg/dL ALT 12 10 - 52 U/L Extra Urine Perez Tube Result Value Ref Range Extra Tube Hold for add-ons. Blood Gas Mixed Venous Full Panel Unsolicited Result Value Ref Range POCT pH, Mixed 7.37 7.33 - 7.43 pH POCT pCO2, Mixed 38 (L) 41 - 51 mm Hg POCT pO2, Mixed 108 (H) 35 - 45 mm Hg POCT SO2, Mixed 99 (H) 45 - 75 % POCT Oxy Hemoglobin, Mixed 96.3 (H) 45.0 - 75.0 % POCT Hematocrit Calculated, Mixed 22.0 (L) 41.0 - 52.0 % POCT Sodium, Mixed 130 (L) 136 - 145 mmol/L POCT Potassium, Mixed 4.6 3.5 - 5.3 mmol/L POCT Chloride, Mixed 107 98 - 107 mmol/L POCT Ionized Calcium, Mixed 1.77 (H) 1.10 - 1.33 mmol/L POCT Glucose, Mixed 125 (H) 74 - 99 mg/dL POCT Lactate, Mixed 1.5 0.4 - 2.0 mmol/L POCT Base Excess, Mixed -3.0 (L) -2.0 - 3.0 mmol/L POCT HCO3 Calculated, Mixed 22.0 22.0 - 26.0 mmol/L POCT Hemoglobin, Mixed 7.3 (L) 13.5 - 17.5 g/dL POCT Anion Gap, Mixed 6 (L) 10 - 25 mmo/L Patient Temperature 37.0 degrees Celsius Prepare RBC: 2 Units Result Value Ref Range PRODUCT CODE [id number] Unit Number [id number] Unit ABO A Unit RH POS XM INTEP COMP Dispense Status XM Blood Expiration Date April 23, 2023 23:59 EST PRODUCT BLOOD TYPE 6200 UNIT VOLUME 350 PRODUCT CODE [id number] Unit Number [id number] Unit ABO A Unit RH POS XM INTEP COMP Dispense Status XM Blood Expiration Date April 23, 2023 23:59 EST PRODUCT BLOOD TYPE 6200 UNIT VOLUME 350 Prepare RBC: 2 Units Result Value Ref Range PRODUCT CODE [id number] Unit Number [id number] Unit ABO A Unit RH POS XM INTEP COMP Dispense Status XM Blood Expiration Date April 29, 2023 23:59 EST PRODUCT BLOOD TYPE 6200 UNIT VOLUME 350 PRODUCT CODE [id number] Unit Number [id number] Unit ABO A Unit RH POS XM INTEP COMP Dispense Status TR Blood Expiration Date April 23, 2023 23:59 EST PRODUCT BLOOD TYPE 6200 UNIT VOLUME 278 Type and screen Result Value Ref Range ABO TYPE A Rh TYPE POS ANTIBODY SCREEN NEG POCT GLUCOSE Result Value Ref Range POCT Glucose 139 (H) 74 - 99 mg/dL Urinalysis with Reflex Culture and Microscopic Result Value Ref Range Color, Urine Yellow Straw, Yellow Appearance, Urine Hazy (N) Clear Specific [place], Urine 1.029 1.005 - 1.035 pH, Urine 7.0 5.0, 5.5, 6.0, 6.5, 7.0, 7.5, 8.0 Protein, Urine 100 (2+) (N) NEGATIVE mg/dL Glucose, Urine >=500 (3+) (A) NEGATIVE mg/dL Blood, Urine MODERATE (2+) (A) NEGATIVE Ketones, Urine 5 (TRACE) (A) NEGATIVE mg/dL Bilirubin, Urine NEGATIVE NEGATIVE Urobilinogen, Urine <2.0 <2.0 mg/dL Nitrite, Urine NEGATIVE NEGATIVE Leukocyte Esterase, Urine MODERATE (2+) (A) NEGATIVE Microscopic Only, Urine Result Value Ref Range WBC, Urine >50 (A) 1-5, NONE /HPF RBC, Urine >20 (A) NONE, 1-2, 3-5 /HPF Bacteria, Urine 1+ (A) NONE SEEN /HPF CBC Result Value Ref Range WBC 10.0 4.4 - 11.3 x10*3/uL nRBC 0.0 0.0 - 0.0 /100 WBCs RBC 3.04 (L) 4.50 - 5.90 x10*6/uL Hemoglobin 7.2 (L) 13.5 - 17.5 g/dL Hematocrit 23.8 (L) 41.0 - 52.0 % MCV 78 (L) 80 - 100 fL MCH 23.7 (L) 26.0 - 34.0 pg MCHC 30.3 (L) 32.0 - 36.0 g/dL RDW 21.3 (H) 11.5 - 14.5 % Platelets 319 150 - 450 x10*3/uL Magnesium Result Value Ref Range Magnesium 1.69 1.60 - 2.40 mg/dL Hepatic function panel Result Value Ref Range Albumin 2.2 (L) 3.4 - 5.0 g/dL Bilirubin, Total 0.5 0.0 - 1.2 mg/dL Bilirubin, Direct 0.2 0.0 - 0.3 mg/dL Alkaline Phosphatase 54 33 - 136 U/L ALT 12 10 - 52 U/L AST 12 9 - 39 U/L Total Protein 5.3 (L) 6.4 - 8.2 g/dL Phosphorus Result Value Ref Range Phosphorus 2.9 2.5 - 4.9 mg/dL Basic Metabolic Panel Result Value Ref Range Glucose 123 (H) 74 - 99 mg/dL Sodium 132 (L) 136 - 145 mmol/L Potassium 5.1 3.5 - 5.3 mmol/L Chloride 105 98 - 107 mmol/L Bicarbonate 21 21 - 32 mmol/L Anion Gap 11 10 - 20 mmol/L Urea Nitrogen 15 6 - 23 mg/dL Creatinine 0.59 0.50 - 1.30 mg/dL eGFR >90 >60 mL/min/1.73m*2 Calcium 10.4 8.6 - 10.6 mg/dL Coagulation Screen Result Value Ref Range Protime 17.1 (H) 9.8 - 12.8 seconds INR 1.5 (H) 0.9 - 1.1 aPTT 27 27 - 38 seconds Fibrinogen Result Value Ref Range Fibrinogen 423 (H) 200 - 400 mg/dL CALCIUM, IONIZED Result Value Ref Range POCT Calcium, Ionized 1.74 (H) 1.1 - 1.33 mmol/L Creatine Kinase Result Value Ref Range Creatine Kinase 14 0 - 325 U/L Prepare RBC: 1 Units Result Value Ref Range PRODUCT CODE [id number] Unit Number [id number] Unit ABO A Unit RH POS XM INTEP COMP Dispense Status TR Blood Expiration Date April 14, 2023 23:59 EST PRODUCT BLOOD TYPE 6200 UNIT VOLUME 350 POCT GLUCOSE Result Value Ref Range POCT Glucose 137 (H) 74 - 99 mg/dL ECG 12 lead Result Value Ref Range Ventricular Rate 91 BPM Atrial Rate 91 BPM [place] Interval 164 ms QRS Duration 88 ms QT Interval 340 ms QTC Calculation(Bazett) 418 ms P [place] 9 degrees R [place] -14 degrees T [place] 70 degrees QRS Count 15 beats Q Onset 217 ms P Onset 135 ms P Offset 201 ms T Offset 387 ms QTC Fredericia 391 ms Urinalysis with Reflex Microscopic Result Value Ref Range Color, Urine Yellow Straw, Yellow Appearance, Urine Hazy (N) Clear Specific [place], Urine 1.022 1.005 - 1.035 pH, Urine 7.0 5.0, 5.5, 6.0, 6.5, 7.0, 7.5, 8.0 Protein, Urine 30 (1+) (N) NEGATIVE mg/dL Glucose, Urine >=500 (3+) (A) NEGATIVE mg/dL Blood, Urine MODERATE (2+) (A) NEGATIVE Ketones, Urine 5 (TRACE) (A) NEGATIVE mg/dL Bilirubin, Urine NEGATIVE NEGATIVE Urobilinogen, Urine <2.0 <2.0 mg/dL Nitrite, Urine NEGATIVE NEGATIVE Leukocyte Esterase, Urine MODERATE (2+) (A) NEGATIVE Microscopic Only, Urine Result Value Ref Range WBC, Urine 21-50 (A) 1-5, NONE /HPF RBC, Urine >20 (A) NONE, 1-2, 3-5 /HPF CBC Result Value Ref Range WBC 7.1 4.4 - 11.3 x10*3/uL nRBC 0.0 0.0 - 0.0 /100 WBCs RBC 2.94 (L) 4.50 - 5.90 x10*6/uL Hemoglobin 7.2 (L) 13.5 - 17.5 g/dL Hematocrit 23.3 (L) 41.0 - 52.0 % MCV 79 (L) 80 - 100 fL MCH 24.5 (L) 26.0 - 34.0 pg MCHC 30.9 (L) 32.0 - 36.0 g/dL RDW 20.4 (H) 11.5 - 14.5 % Platelets 276 150 - 450 x10*3/uL POCT GLUCOSE Result Value Ref Range POCT Glucose 143 (H) 74 - 99 mg/dL Blood Gas Venous Full Panel Result Value Ref Range POCT pH, Venous 7.34 7.33 - 7.43 pH POCT pCO2, Venous 36 (L) 41 - 51 mm Hg POCT pO2, Venous 72 (H) 35 - 45 mm Hg POCT SO2, Venous 96 (H) 45 - 75 % POCT Oxy Hemoglobin, Venous 93.2 (H) 45.0 - 75.0 % POCT Hematocrit Calculated, Venous 22.0 (L) 41.0 - 52.0 % POCT Sodium, Venous 130 (L) 136 - 145 mmol/L POCT Potassium, Venous 5.9 (H) 3.5 - 5.3 mmol/L POCT Chloride, Venous 106 98 - 107 mmol/L POCT Ionized [place], Venous 1.77 (H) 1.10 - 1.33 mmol/L POCT Glucose, Venous 127 (H) 74 - 99 mg/dL POCT Lactate, Venous 0.5 0.4 - 2.0 mmol/L POCT Base Excess, Venous -5.8 (L) -2.0 - 3.0 mmol/L POCT HCO3 Calculated, Venous 19.4 (L) 22.0 - 26.0 mmol/L POCT Hemoglobin, Venous 7.2 (L) 13.5 - 17.5 g/dL POCT Anion Gap, Venous 11.0 10.0 - 25.0 mmol/L Patient Temperature 37.0 degrees Celsius FiO2 28 % CBC Result Value Ref Range WBC 6.1 4.4 - 11.3 x10*3/uL nRBC 0.0 0.0 - 0.0 /100 WBCs RBC 2.97 (L) 4.50 - 5.90 x10*6/uL Hemoglobin 7.5 (L) 13.5 - 17.5 g/dL Hematocrit 24.1 (L) 41.0 - 52.0 % MCV 81 80 - 100 fL MCH 25.3 (L) 26.0 - 34.0 pg MCHC 31.1 (L) 32.0 - 36.0 g/dL RDW 20.4 (H) 11.5 - 14.5 % Platelets 243 150 - 450 x10*3/uL POCT GLUCOSE Result Value Ref Range POCT Glucose 106 (H) 74 - 99 mg/dL XR chest 1 view Result Date: 04/14/2023 Interpreted By: Sekou Wilson and Liller Gregory STUDY: XR CHEST 1 VIEW; 04/14/2023 7:01 am INDICATION: Signs/Symptoms:ICU daily. COMPARISON: 04/13/2023 ACCESSION NUMBER(S): [id number] ORDERING CLINICIAN: JYOTSNA MCCOY FINDINGS: AP radiograph of the chest was provided. Left internal jugular central venous catheter tip projects over the expected location of the mid to distal SVC. CARDIOMEDIASTINAL SILHOUETTE: Cardiomediastinal silhouette is enlarged but stable in size and configuration. Aortic arch calcifications are seen. LUNGS: Interval worsening aeration of the right lung base when compared to prior radiograph with streaky opacities partially silhouetting the right hemidiaphragm. There is blunting of the left costophrenic angle, similar prior. Pneumothorax. ABDOMEN: No remarkable upper abdominal findings. BONES: No osseous injury. 1. Persistent small left pleural effusion with associated adjacent atelectasis/consolidation. Correlate with worsening left basilar atelectasis/volume loss. 2. Worsening aeration of the right lung base with streaky opacities which may represent atelectasis versus infectious infiltrate. I personallyreviewed the images/study and I agree with the findings as stated above by resident physician, Dr. Maximo Hoffmann. The study was interpreted at [facility] in [facility]. MACRO: none. Signed by: Sekou Wilson 04/14/2023 10:00 AM Dictation workstation: [id number] ECG 12 lead Result Date: 04/14/2023 Normal sinus rhythm Normal ECG When compared with ECG of 24-FEB-2023 23:07, Previous ECG has undetermined rhythm, needs review XR chest 1 view Result Date: 04/13/2023 Interpreted By: Bharath Ramirez, STUDY: XR CHEST 1 VIEW; 04/13/2023 5:16 pm INDICATION: Signs/Symptoms:Left IJ Central line placement. COMPARISON: 02/25/2023 ACCESSION NUMBER(S): [id number] ORDERING CLINICIAN: TANO PEREZ FINDINGS: Left IJ central venous line with its tip over the right atrium. Ap pearance is similar to the prior. No evidence of a pneumothorax. CARDIOMEDIASTINAL SILHOUETTE: Cardiomediastinal silhouette is normal in size and configuration. LUNGS: Increased perihilar lung markings with extends to the bibasilar regions. There is dense airspace disease at the left lung base with silhouetting of the hemidiaphragm. There is a small left pleural effusion. ABDOMEN: No remarkable upper abdominal findings. BONES: No acute osseous changes. 1. Left IJ central venous line with its tip over the right atrium. 2. Dense left basilar airspace disease with small left effusion. Underlying pneumonia and atelectasis in the differential. 3. Mild interstitial edema noted MACRO: None Signed by: Bharath Ramirez 04/13/2023 5:18 PM Dictation workstation: [id number] Assessment/Plan Jagruti Esparza is a 67 y.o. male with PMHx of HTN, CAD, HFpEF (TTE 03/06: EF 50- 55%, mild to mod dilated RA, mild elevated RVSP, mild aortic stenosis), paroxsymal afib/flutter (on diltiazem/eliquis),ESRD s/p kidney transplant 2012 (immunosuppressed on prednisone/azathioprine/tacrolimus), chronic anemia, RLS (on ropinirole), hiatal hernia, GERD, complicated diverticulitis with pericolonic abscesss/p laparoscopic sigmoid resection with end colostomy and umbilical hernia repair 01/2023, bedboundstatus c/b decub ulcers of sacrum and mid back, WILLIAN, BPH with LUTS, acalculous cholecystitis s/p percutaneous cholecystostomy tube 03/06 (surgery deferred d/t elevated troponin, found to have chronictotal LAD occlusion) who is POD 1 s/p I&D perineum, dahiana's gangrene washout, and R orchiectomy on 04/14. Medicine consulted for transfer request. Patient is currently hemodynamically stable and breathing on room air. No signs or symptoms noted that are concerning for exacerbation of heart failure, underlying CAD. On EKG patient is tachycardic rate with normal sinus rhythm, and there has been low concern about A-fib episodes while inpatient. Transplant nephrology has been consulted for management of transplant medications. ACS has been consulted for management of cholecystostomy tube. ID has been consulted for management of antibiotics postop for Dahiana's gangrene. Recommendations: -Given unilateral swelling (right greater than left) and lower extremities, would recommend obtaining bilateral lower extremity Doppler ultrasounds to rule out DVT. -Given that patient is currently stable without exacerbation of underlying comorbid conditions and appropriate services have been consulted for respective management, primary goal seems to be postoperative care and wound care. Therefore, this patient would most benefit from transfer to surgical primary service for appropriate postop care. Patient seen and discussed with Dr. العلي. Medicine consult team will sign off at this time. Please reach out to team with any questions or concerns. Elin Vidal, PGY-1 Medicine consult team Associated attestation - Salvador العلي MD - 04/15/2023 12:10 PM EST I saw and evaluated the patient. I personally obtained the florez and critical portions of the historyand physical exam or was physically present for florez and critical portions performed by the resident. I reviewed the resident/fellow's documentation and discussed the patient with the resident. I agree with the residents medical decision making as documented in the note. Patient currently is without any active medical issues requiring hospitalization. Will defer further care to surgical service who completed washout of the scrotum for his Dahiana's gangrene. Will defer antibiotics to infectious disease and immunosuppression medications to the renal transplant service. Patient would not be transferred to medicine at this time * Wyatt Bustamante MD - 04/14/2023 7:46 AM EST Jagruti Esparza is a 67 y.o. male on day 1 of admission presenting with Scrotal abscess. Subjective Patient recovering well postoperatively. States that pain is well controlled. Patient denies n/v, fever/chills, cp/sob, and worsening abdominal pain. Objective Physical Exam General: Laying in bed. NAD. Eyes: EOMI ENMT: no apparent injury, no lesions seen, MMM Head/neck: NCAT Cardiac: regular rate in chart Pulm: normal respiratory effort on NC GI: soft, NT/ND, end colostomy with stool and gas output, perc kerline with drainage : uncircumcised phallus with bowers in place draining CYU, scrotum with large incision loosely approximated with nylon sutures and packed with kerlix, no further areas of necrosis or purulent drainage noted Msk: DARDEN Extremities: DARDEN at baseline Skin: pallor, decubitus ulcers noted on sacrum and mid back covered with mepilex Neuro: AOx3 Psych: appropriate mood and behavior Last Recorded Vitals Blood pressure 123/52, pulse 89, temperature 36.2 C (97.2 F), temperature source Temporal, resp. rate 21, height 1.829 m (6'), weight 79.2 kg (174 lb 9.7 oz), SpO2 100 %. Intake/Output last 3 Shifts: I/O last 3 completed shifts: In: 3563 (45 mL/kg) [I.V.:1575 (19.9 mL/kg); Blood:1228; Other:10; IV Piggyback:750] Out: 690 (8.7 mL/kg) [Urine:620 (0.2 mL/kg/hr); Drains:70] Weight: 79.2 kg Relevant Results Scheduled medications clindamycin, 900 mg, intravenous, q8h daptomycin, 5 mg/kg, intravenous, q24h TREMAINE heparin (porcine), 5,000 Units, subcutaneous, q8h TREMAINE insulin lispro, 0-5 Units, subcutaneous, q4h meropenem, 1 g, intravenous, q8h pantoprazole, 40 mg, oral, Daily before breakfast predniSONE, 5 mg, oral, Daily tacrolimus, 0.5 mg, oral, q12h TREMAINE Continuous medications lactated Ringer's, 100 mL/hr, Last Rate: 100 mL/hr (04/14/23 0015) PRN medications PRN medications: dextrose 10 % in water (D10W), dextrose, glucagon, HYDROmorphone, hydrOXYzine HCL Results for orders placed or performed during the hospital encounter of 04/13/23 (from the past 24 hour(s)) Comprehensive metabolic panel Result Value Ref Range Glucose 118 (H) 74 - 99 mg/dL Sodium 130 (L) 136 - 145 mmol/L Potassium 6.6 (HH) 3.5 - 5.3 mmol/L Chloride 105 98 - 107 mmol/L Bicarbonate 21 21 - 32 mmol/L Anion Gap 11 10 - 20 mmol/L Urea Nitrogen 14 6 - 23 mg/dL Creatinine 0.55 0.50 - 1.30 mg/dL eGFR >90 >60 mL/min/1.73m*2 Calcium 10.5 8.6 - 10.6 mg/dL Albumin 2.1 (L) 3.4 - 5.0 g/dL Alkaline Phosphatase 52 33 - 136 U/L Total Protein 5.6 (L) 6.4 - 8.2 g/dL AST 30 9 - 39 U/L Bilirubin, Total 0.7 0.0 - 1.2 mg/dL ALT 12 10 - 52 U/L Blood Gas Mixed Venous Full Panel Unsolicited Result Value Ref Range POCT pH, Mixed 7.37 7.33 - 7.43 pH POCT pCO2, Mixed 38 (L) 41 - 51 mm Hg POCT pO2, Mixed 108 (H) 35 - 45 mm Hg POCT SO2, Mixed 99 (H) 45 - 75 % POCT Oxy Hemoglobin, Mixed 96.3 (H) 45.0 - 75.0 % POCT Hematocrit Calculated, Mixed 22.0 (L) 41.0 - 52.0 % POCT Sodium, Mixed 130 (L) 136 - 145 mmol/L POCT Potassium, Mixed 4.6 3.5 - 5.3 mmol/L POCT Chloride, Mixed 107 98 - 107 mmol/L POCT Ionized Calcium, Mixed 1.77 (H) 1.10 - 1.33 mmol/L POCT Glucose, Mixed 125 (H) 74 - 99 mg/dL POCT Lactate, Mixed 1.5 0.4 - 2.0 mmol/L POCT Base Excess, Mixed -3.0 (L) -2.0 - 3.0 mmol/L POCT HCO3 Calculated, Mixed 22.0 22.0 - 26.0 mmol/L POCT Hemoglobin, Mixed 7.3 (L) 13.5 - 17.5 g/dL POCT Anion Gap, Mixed 6 (L) 10 - 25 mmo/L Patient Temperature 37.0 degrees Celsius Prepare RBC: 2 Units Result Value Ref Range PRODUCT CODE [id number] Unit Number [id number] Unit ABO A Unit RH POS XM INTEP COMP Dispense Status XM Blood Expiration Date April 23, 2023 23:59 EST PRODUCT BLOOD TYPE 6200 UNIT VOLUME 350 PRODUCT CODE [id number] Unit Number [id number] Unit ABO A Unit RH POS XM INTEP COMP Dispense Status XM Blood Expiration Date April 23, 2023 23:59 EST PRODUCT BLOOD TYPE 6200 UNIT VOLUME 350 Prepare RBC: 2 Units Result Value Ref Range PRODUCT CODE [id number] Unit Number [id number] Unit ABO A Unit RH POS XM INTEP COMP Dispense Status XM Blood Expiration Date April 29, 2023 23:59 EST PRODUCT BLOOD TYPE 6200 UNIT VOLUME 350 PRODUCT CODE [id number] Unit Number [id number] Unit ABO A Unit RH POS XM INTEP COMP Dispense Status TR Blood Expiration Date April 23, 2023 23:59 EST PRODUCT BLOOD TYPE 6200 UNIT VOLUME 278 Type and screen Result Value Ref Range ABO TYPE A Rh TYPE POS ANTIBODY SCREEN NEG POCT GLUCOSE Result Value Ref Range POCT Glucose 139 (H) 74 - 99 mg/dL Urinalysis with Reflex Culture and Microscopic Result Value Ref Range Color, Urine Yellow Straw, Yellow Appearance, Urine Hazy (N) Clear Specific [place], Urine 1.029 1.005 - 1.035 pH, Urine 7.0 5.0, 5.5, 6.0, 6.5, 7.0, 7.5, 8.0 Protein, Urine 100 (2+) (N) NEGATIVE mg/dL Glucose, Urine >=500 (3+) (A) NEGATIVE mg/dL Blood, Urine MODERATE (2+) (A) NEGATIVE Ketones, Urine 5 (TRACE) (A) NEGATIVE mg/dL Bilirubin, Urine NEGATIVE NEGATIVE Urobilinogen, Urine <2.0 <2.0 mg/dL Nitrite, Urine NEGATIVE NEGATIVE Leukocyte Esterase, Urine MODERATE (2+) (A) NEGATIVE Microscopic Only, Urine Result Value Ref Range WBC, Urine >50 (A) 1-5, NONE /HPF RBC, Urine >20 (A) NONE, 1-2, 3-5 /HPF Bacteria, Urine 1+ (A) NONE SEEN /HPF CBC Result Value Ref Range WBC 10.0 4.4 - 11.3 x10*3/uL nRBC 0.0 0.0 - 0.0 /100 WBCs RBC 3.04 (L) 4.50 - 5.90 x10*6/uL Hemoglobin 7.2 (L) 13.5 - 17.5 g/dL Hematocrit 23.8 (L) 41.0 - 52.0 % MCV 78 (L) 80 - 100 fL MCH 23.7 (L) 26.0 - 34.0 pg MCHC 30.3 (L) 32.0 - 36.0 g/dL RDW 21.3 (H) 11.5 - 14.5 % Platelets 319 150 - 450 x10*3/uL Magnesium Result Value Ref Range Magnesium 1.69 1.60 - 2.40 mg/dL Hepatic function panel Result Value Ref Range Albumin 2.2 (L) 3.4 - 5.0 g/dL Bilirubin, Total 0.5 0.0 - 1.2 mg/dL Bilirubin, Direct 0.2 0.0 - 0.3 mg/dL Alkaline Phosphatase 54 33 - 136 U/L ALT 12 10 - 52 U/L AST 12 9 - 39 U/L Total Protein 5.3 (L) 6.4 - 8.2 g/dL Phosphorus Result Value Ref Range Phosphorus 2.9 2.5 - 4.9 mg/dL Basic Metabolic Panel Result Value Ref Range Glucose 123 (H) 74 - 99 mg/dL Sodium 132 (L) 136 - 145 mmol/L Potassium 5.1 3.5 - 5.3 mmol/L Chloride 105 98 - 107 mmol/L Bicarbonate 21 21 - 32 mmol/L Anion Gap 11 10 - 20 mmol/L Urea Nitrogen 15 6 - 23 mg/dL Creatinine 0.59 0.50 - 1.30 mg/dL eGFR >90 >60 mL/min/1.73m*2 Calcium 10.4 8.6 - 10.6 mg/dL Coagulation Screen Result Value Ref Range Protime 17.1 (H) 9.8 - 12.8 seconds INR 1.5 (H) 0.9 - 1.1 aPTT 27 27 - 38 seconds Fibrinogen Result Value Ref Range Fibrinogen 423 (H) 200 - 400 mg/dL CALCIUM, IONIZED Result Value Ref Range POCT Calcium, Ionized 1.74 (H) 1.1 - 1.33 mmol/L Creatine Kinase Result Value Ref Range Creatine Kinase 14 0 - 325 U/L Prepare RBC: 1 Units Result Value Ref Range PRODUCT CODE [id number] Unit Number [id number] Unit ABO A Unit RH POS XM INTEP COMP Dispense Status TR Blood Expiration Date April 14, 2023 23:59 EST PRODUCT BLOOD TYPE 6200 UNIT VOLUME 350 POCT GLUCOSE Result Value Ref Range POCT Glucose 137 (H) 74 - 99 mg/dL Urinalysis with Reflex Microscopic Result Value Ref Range Color, Urine Yellow Straw, Yellow Appearance, Urine Hazy (N) Clear Specific [place], Urine 1.022 1.005 - 1.035 pH, Urine 7.0 5.0, 5.5, 6.0, 6.5, 7.0, 7.5, 8.0 Protein, Urine 30 (1+) (N) NEGATIVE mg/dL Glucose, Urine >=500 (3+) (A) NEGATIVE mg/dL Blood, Urine MODERATE (2+) (A) NEGATIVE Ketones, Urine 5 (TRACE) (A) NEGATIVE mg/dL Bilirubin, Urine NEGATIVE NEGATIVE Urobilinogen, Urine <2.0 <2.0 mg/dL Nitrite, Urine NEGATIVE NEGATIVE Leukocyte Esterase, Urine MODERATE (2+) (A) NEGATIVE Microscopic Only, Urine Result Value Ref Range WBC, Urine 21-50 (A) 1-5, NONE /HPF RBC, Urine >20 (A) NONE, 1-2, 3-5 /HPF CBC Result Value Ref Range WBC 7.1 4.4 - 11.3 x10*3/uL nRBC 0.0 0.0 - 0.0 /100 WBCs RBC 2.94 (L) 4.50 - 5.90 x10*6/uL Hemoglobin 7.2 (L) 13.5 - 17.5 g/dL Hematocrit 23.3 (L) 41.0 - 52.0 % MCV 79 (L) 80 - 100 fL MCH 24.5 (L) 26.0 - 34.0 pg MCHC 30.9 (L) 32.0 - 36.0 g/dL RDW 20.4 (H) 11.5 - 14.5 % Platelets 276 150 - 450 x10*3/uL POCT GLUCOSE Result Value Ref Range POCT Glucose 143 (H) 74 - 99 mg/dL Blood Gas Venous Full Panel Result Value Ref Range POCT pH, Venous 7.34 7.33 - 7.43 pH POCT pCO2, Venous 36 (L) 41 - 51 mm Hg POCT pO2, Venous 72 (H) 35 - 45 mm Hg POCT SO2, Venous 96 (H) 45 - 75 % POCT Oxy Hemoglobin, Venous 93.2 (H) 45.0 - 75.0 % POCT Hematocrit Calculated, Venous 22.0 (L) 41.0 - 52.0 % POCT Sodium, Venous 130 (L) 136 - 145 mmol/L POCT Potassium, Venous 5.9 (H) 3.5 - 5.3 mmol/L POCT Chloride, Venous 106 98 - 107 mmol/L POCT Ionized Calicum, Venous 1.77 (H) 1.10 - 1.33 mmol/L POCT Glucose, Venous 127 (H) 74 - 99 mg/dL POCT Lactate, Venous 0.5 0.4 - 2.0 mmol/L POCT Base Excess, Venous -5.8 (L) -2.0 - 3.0 mmol/L POCT HCO3 Calculated, Venous 19.4 (L) 22.0 - 26.0 mmol/L POCT Hemoglobin, Venous 7.2 (L) 13.5 - 17.5 g/dL POCT Anion Gap, Venous 11.0 10.0 - 25.0 mmol/L Patient Temperature 37.0 degrees Celsius FiO2 28 % POCT GLUCOSE Result Value Ref Range POCT Glucose 106 (H) 74 - 99 mg/dL XR chest 1 view Result Date: 04/13/2023 Interpreted By: Bharath Ramirez, STUDY: XR CHEST 1 VIEW; 04/13/2023 5:16 pm INDICATION: Signs/Symptoms:Left IJ Central line placement. COMPARISON: 02/25/2023 ACCESSION NUMBER(S): [id number] ORDERING CLINICIAN: TANO PEREZ FINDINGS: Left IJ central venous line with its tip over the right atrium. Ap pearance is similar to the prior. No evidence of a pneumothorax. CARDIOMEDIASTINAL SILHOUETTE: Cardiomediastinal silhouette is normal in size and configuration. LUNGS: Increased perihilar lung markings with extends to the bibasilar regions. There is dense airspace disease at the left lung base with silhouetting of the hemidiaphragm. There is a small left pleural effusion. ABDOMEN: No remarkable upper abdominal findings. BONES: No acute osseous changes. 1. Left IJ central venous line with its tip over the right atrium. 2. Dense left basilar airspace disease with small left effusion. Underlying pneumonia and atelectasis in the differential. 3. 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 Recommendations: - Appreciate SICU care - No plan for further surgical intervention today - Please cont broad spectrum abx and tailor as appropriate to culture sensitivities - FU intra-op wound cultures - Trend CBC, transfuse as needed - 1 unit RBC transfused today - Please change scrotal dressings BID (urology team will perform AM change and RN to perform PM change) with wet to dry kerlix packed into open scrotal space and cover with abd and mesh underwear - Given complexity of ongoing medical issues, transplant medicine consulted for transfer of serviceonce patient clears ICU needs, appreciate recs - Please page urology for questions/concerns/clinical status changes Discussed with attending, Dr. Ifrah Bustamante MD Urology - PGY1 Pager [phone] * Jeremie Yepez MD - 04/14/2023 7:15 AM EST Jagruti Esparza is a 67 y.o. male on day 1 of admission presenting with Scrotal abscess. Subjective Overnight: 500 ml albumen was given for hypotension 2 U PRBCs for Hgb 7.2 , pending repeat cbc Placed on O2 for comfort This AM Report pain is well controlled On 2 L NC Urology changed perineal dressing Dressing is clean , no active bleeding Objective Physical Exam Vitals reviewed. Constitutional: General: He is awake. Neck: Comments: L internal jugular central line Cardiovascular: Rate and Rhythm: Normal rate and regular rhythm. Pulmonary: Effort: Pulmonary effort is normal. Breath sounds: Normal breath sounds and air entry. Abdominal: General: Abdomen is flat. Palpations: Abdomen is soft. Comments: Cholecystotomy drain in place, colostomy in place Musculoskeletal: Comments: R Upper arm AVF Skin: Comments: Pressure ulcer pain on lower back and buttocks Neurological: Mental Status: He is alert. Psychiatric: Behavior: Behavior is cooperative. Last Recorded Vitals Blood pressure 115/64, pulse 83, temperature 36.2 C (97.2 F), temperature source Temporal, resp. rate 15, height 1.829 m (6'), weight 79.2 kg (174 lb 9.7 oz), SpO2 100 %. Intake/Output last 3 Shifts: I/O last 3 completed shifts: In: 3563 (45 mL/kg) [I.V.:1575 (19.9 mL/kg); Blood:1228; Other:10; IV Piggyback:750] Out: 690 (8.7 mL/kg) [Urine:620 (0.2 mL/kg/hr); Drains:70] Weight: 79.2 kg Relevant Results Results for orders placed or performed during the hospital encounter of 04/13/23 (from the past 24 hour(s)) Comprehensive metabolic panel Result Value Ref Range Glucose 118 (H) 74 - 99 mg/dL Sodium 130 (L) 136 - 145 mmol/L Potassium 6.6 (HH) 3.5 - 5.3 mmol/L Chloride 105 98 - 107 mmol/L Bicarbonate 21 21 - 32 mmol/L Anion Gap 11 10 - 20 mmol/L Urea Nitrogen 14 6 - 23 mg/dL Creatinine 0.55 0.50 - 1.30 mg/dL eGFR >90 >60 mL/min/1.73m*2 Calcium 10.5 8.6 - 10.6 mg/dL Albumin 2.1 (L) 3.4 - 5.0 g/dL Alkaline Phosphatase 52 33 - 136 U/L Total Protein 5.6 (L) 6.4 - 8.2 g/dL AST 30 9 - 39 U/L Bilirubin, Total 0.7 0.0 - 1.2 mg/dL ALT 12 10 - 52 U/L Blood Gas Mixed Venous Full Panel Unsolicited Result Value Ref Range POCT pH, Mixed 7.37 7.33 - 7.43 pH POCT pCO2, Mixed 38 (L) 41 - 51 mm Hg POCT pO2, Mixed 108 (H) 35 - 45 mm Hg POCT SO2, Mixed 99 (H) 45 - 75 % POCT Oxy Hemoglobin, Mixed 96.3 (H) 45.0 - 75.0 % POCT Hematocrit Calculated, Mixed 22.0 (L) 41.0 - 52.0 % POCT Sodium, Mixed 130 (L) 136 - 145 mmol/L POCT Potassium, Mixed 4.6 3.5 - 5.3 mmol/L POCT Chloride, Mixed 107 98 - 107 mmol/L POCT Ionized Calcium, Mixed 1.77 (H) 1.10 - 1.33 mmol/L POCT Glucose, Mixed 125 (H) 74 - 99 mg/dL POCT Lactate, Mixed 1.5 0.4 - 2.0 mmol/L POCT Base Excess, Mixed -3.0 (L) -2.0 - 3.0 mmol/L POCT HCO3 Calculated, Mixed 22.0 22.0 - 26.0 mmol/L POCT Hemoglobin, Mixed 7.3 (L) 13.5 - 17.5 g/dL POCT Anion Gap, Mixed 6 (L) 10 - 25 mmo/L Patient Temperature 37.0 degrees Celsius Prepare RBC: 2 Units Result Value Ref Range PRODUCT CODE [id number] Unit Number [id number] Unit ABO A Unit RH POS XM INTEP COMP Dispense Status XM Blood Expiration Date April 23, 2023 23:59 EST PRODUCT BLOOD TYPE 6200 UNIT VOLUME 350 PRODUCT CODE [id number] Unit Number [id number] Unit ABO A Unit RH POS XM INTEP COMP Dispense Status XM Blood Expiration Date April 23, 2023 23:59 EST PRODUCT BLOOD TYPE 6200 UNIT VOLUME 350 Prepare RBC: 2 Units Result Value Ref Range PRODUCT CODE [id number] Unit Number [id number] Unit ABO A Unit RH POS XM INTEP COMP Dispense Status XM Blood Expiration Date April 29, 2023 23:59 EST PRODUCT BLOOD TYPE 6200 UNIT VOLUME 350 PRODUCT CODE [id number] Unit Number [id number] Unit ABO A Unit RH POS XM INTEP COMP Dispense Status TR Blood Expiration Date April 23, 2023 23:59 EST PRODUCT BLOOD TYPE 6200 UNIT VOLUME 278 Type and screen Result Value Ref Range ABO TYPE A Rh TYPE POS ANTIBODY SCREEN NEG POCT GLUCOSE Result Value Ref Range POCT Glucose 139 (H) 74 - 99 mg/dL Urinalysis with Reflex Culture and Microscopic Result Value Ref Range Color, Urine Yellow Straw, Yellow Appearance, Urine Hazy (N) Clear Specific [place], Urine 1.029 1.005 - 1.035 pH, Urine 7.0 5.0, 5.5, 6.0, 6.5, 7.0, 7.5, 8.0 Protein, Urine 100 (2+) (N) NEGATIVE mg/dL Glucose, Urine >=500 (3+) (A) NEGATIVE mg/dL Blood, Urine MODERATE (2+) (A) NEGATIVE Ketones, Urine 5 (TRACE) (A) NEGATIVE mg/dL Bilirubin, Urine NEGATIVE NEGATIVE Urobilinogen, Urine <2.0 <2.0 mg/dL Nitrite, Urine NEGATIVE NEGATIVE Leukocyte Esterase, Urine MODERATE (2+) (A) NEGATIVE Microscopic Only, Urine Result Value Ref Range WBC, Urine >50 (A) 1-5, NONE /HPF RBC, Urine >20 (A) NONE, 1-2, 3-5 /HPF Bacteria, Urine 1+ (A) NONE SEEN /HPF CBC Result Value Ref Range WBC 10.0 4.4 - 11.3 x10*3/uL nRBC 0.0 0.0 - 0.0 /100 WBCs RBC 3.04 (L) 4.50 - 5.90 x10*6/uL Hemoglobin 7.2 (L) 13.5 - 17.5 g/dL Hematocrit 23.8 (L) 41.0 - 52.0 % MCV 78 (L) 80 - 100 fL MCH 23.7 (L) 26.0 - 34.0 pg MCHC 30.3 (L) 32.0 - 36.0 g/dL RDW 21.3 (H) 11.5 - 14.5 % Platelets 319 150 - 450 x10*3/uL Magnesium Result Value Ref Range Magnesium 1.69 1.60 - 2.40 mg/dL Hepatic function panel Result Value Ref Range Albumin 2.2 (L) 3.4 - 5.0 g/dL Bilirubin, Total 0.5 0.0 - 1.2 mg/dL Bilirubin, Direct 0.2 0.0 - 0.3 mg/dL Alkaline Phosphatase 54 33 - 136 U/L ALT 12 10 - 52 U/L AST 12 9 - 39 U/L Total Protein 5.3 (L) 6.4 - 8.2 g/dL Phosphorus Result Value Ref Range Phosphorus 2.9 2.5 - 4.9 mg/dL Basic Metabolic Panel Result Value Ref Range Glucose 123 (H) 74 - 99 mg/dL Sodium 132 (L) 136 - 145 mmol/L Potassium 5.1 3.5 - 5.3 mmol/L Chloride 105 98 - 107 mmol/L Bicarbonate 21 21 - 32 mmol/L Anion Gap 11 10 - 20 mmol/L Urea Nitrogen 15 6 - 23 mg/dL Creatinine 0.59 0.50 - 1.30 mg/dL eGFR >90 >60 mL/min/1.73m*2 Calcium 10.4 8.6 - 10.6 mg/dL Coagulation Screen Result Value Ref Range Protime 17.1 (H) 9.8 - 12.8 seconds INR 1.5 (H) 0.9 - 1.1 aPTT 27 27 - 38 seconds Fibrinogen Result Value Ref Range Fibrinogen 423 (H) 200 - 400 mg/dL CALCIUM, IONIZED Result Value Ref Range POCT Calcium, Ionized 1.74 (H) 1.1 - 1.33 mmol/L Creatine Kinase Result Value Ref Range Creatine Kinase 14 0 - 325 U/L Prepare RBC: 1 Units Result Value Ref Range PRODUCT CODE [id number] Unit Number [id number] Unit ABO A Unit RH POS XM INTEP COMP Dispense Status TR Blood Expiration Date April 14, 2023 23:59 EST PRODUCT BLOOD TYPE 6200 UNIT VOLUME 350 POCT GLUCOSE Result Value Ref Range POCT Glucose 137 (H) 74 - 99 mg/dL Urinalysis with Reflex Microscopic Result Value Ref Range Color, Urine Yellow Straw, Yellow Appearance, Urine Hazy (N) Clear Specific [place], Urine 1.022 1.005 - 1.035 pH, Urine 7.0 5.0, 5.5, 6.0, 6.5, 7.0, 7.5, 8.0 Protein, Urine 30 (1+) (N) NEGATIVE mg/dL Glucose, Urine >=500 (3+) (A) NEGATIVE mg/dL Blood, Urine MODERATE (2+) (A) NEGATIVE Ketones, Urine 5 (TRACE) (A) NEGATIVE mg/dL Bilirubin, Urine NEGATIVE NEGATIVE Urobilinogen, Urine <2.0 <2.0 mg/dL Nitrite, Urine NEGATIVE NEGATIVE Leukocyte Esterase, Urine MODERATE (2+) (A) NEGATIVE Microscopic Only, Urine Result Value Ref Range WBC, Urine 21-50 (A) 1-5, NONE /HPF RBC, Urine >20 (A) NONE, 1-2, 3-5 /HPF CBC Result Value Ref Range WBC 7.1 4.4 - 11.3 x10*3/uL nRBC 0.0 0.0 - 0.0 /100 WBCs RBC 2.94 (L) 4.50 - 5.90 x10*6/uL Hemoglobin 7.2 (L) 13.5 - 17.5 g/dL Hematocrit 23.3 (L) 41.0 - 52.0 % MCV 79 (L) 80 - 100 fL MCH 24.5 (L) 26.0 - 34.0 pg MCHC 30.9 (L) 32.0 - 36.0 g/dL RDW 20.4 (H) 11.5 - 14.5 % Platelets 276 150 - 450 x10*3/uL POCT GLUCOSE Result Value Ref Range POCT Glucose 143 (H) 74 - 99 mg/dL Blood Gas Venous Full Panel Result Value Ref Range POCT pH, Venous 7.34 7.33 - 7.43 pH POCT pCO2, Venous 36 (L) 41 - 51 mm Hg POCT pO2, Venous 72 (H) 35 - 45 mm Hg POCT SO2, Venous 96 (H) 45 - 75 % POCT Oxy Hemoglobin, Venous 93.2 (H) 45.0 - 75.0 % POCT Hematocrit Calculated, Venous 22.0 (L) 41.0 - 52.0 % POCT Sodium, Venous 130 (L) 136 - 145 mmol/L POCT Potassium, Venous 5.9 (H) 3.5 - 5.3 mmol/L POCT Chloride, Venous 106 98 - 107 mmol/L POCT Ionized Calicum, Venous 1.77 (H) 1.10 - 1.33 mmol/L POCT Glucose, Venous 127 (H) 74 - 99 mg/dL POCT Lactate, Venous 0.5 0.4 - 2.0 mmol/L POCT Base Excess, Venous -5.8 (L) -2.0 - 3.0 mmol/L POCT HCO3 Calculated, Venous 19.4 (L) 22.0 - 26.0 mmol/L POCT Hemoglobin, Venous 7.2 (L) 13.5 - 17.5 g/dL POCT Anion Gap, Venous 11.0 10.0 - 25.0 mmol/L Patient Temperature 37.0 degrees Celsius FiO2 28 % This patient currently has cardiac telemetry ordered; if you would like to modify or discontinue the telemetry order, click here to go to the orders activity to modify/discontinue the order. This patient has a central line Reason for the central line remaining today? No peripheral IV Assessment/Plan Principal Problem: Scrotal abscess Active Problems: ESRD (end stage renal disease) ([facility]) Scrotal wall abscess Dahiana's gangrene Jagruti Esparza is a 67 y/o M with a history of ESRD s/p 2012 kidney transplant, afib, HFpEF (TTE 03/06: EF 50-55%, mild to mod dilated RA, mild elevated RVSP, mild aortic stenosis), CAD, mild aortic stenosis, GERD, WILLIAN, and RLS. presenting to SICU from OR s/p I&D perineum, dahiana's gangrene washout, and R orchiectomy on 04/14. Plan: NEURO: H/o RLS. Acute post-op pain. A&Ox4 in SICU - ongoing neuro and pain assessments - PRN hydromorphone for pain control - PRN atarax for anxiety - PT/OT consult - Home meds: Ropinirole CV: History of afib, CAD (NSTEMI 03/06), HFpEF, mild aortic stenosis. Baseline echo (TTE 03/06: EF 50-55%, mild to mod dilated RA, mild elevated RVSP, mild aortic stenosis). Arrived to SICU awake andextubated. Hemodynamically stable off all pressors. S/p 500 ml albumen on 04/13 - continuous EKG/abp monitoring - Goal map range 65 - Restarting Diltiazem 90 mg BID with holding parameter ( home dose is 180 mg XL daily ) - Home meds: apixaban, empagliflozin, ASA, atorvastatin. PULM: No pertinent history. Arrived to SICU extubated. Placed on facemask for comfort ( Spo2 100% on RA) - Not requiring O2 - spo2 100% - Q1h incentive spirometer while awake - additional pulm toilet prn. - F/U post op CXR GI: H/o diverticulitis s/p laparoscopic sigmoid resection with end colostomy, acalculous cholecystitis s/p percutaneous cholecystostomy tube 03/06 - Consult ACS for cholecystostomy drain ( scheduled for an outpatient appointment in apr ) . Pending recs - On cardiac diet - PPI for GI prophylaxis : ESRD s/p kidney transplant 2012. Oliguric in OR: 37 ml UOP. Baseline creatinine 0.6-0.8. New bowers placed in OR. - Transplant medicine consulted for IS treatment , pending recs - Volume resuscitation as needed - concentrated albumin - Maintain U/O >0.5ml/kg/hr - Check renal function panel post op and daily - Replete electrolytes to goal K>4, Mg>2, Phos>2.5, ionized Ca>1.10. HEME: Acute blood loss anemia/chronic anemia. OR EBL 100. HGB 7.2 s/p 2 U PRBCs on 04/13 . Pending repeated labs - Check CBC and coags post op and daily - SCDs and SQH for DVT prophylaxis - hold apixaban for now - ongoing monitoring for s/s bleeding ENDO: No history of DM or thyroid disease - Q4h BG - SSI Lispro per ICU protocol. ID: Dahiana's gangrene s/p I&D/washout. Afebrile. WBC 10. Immunosuppressed (on prednisone/tacrolimus). - temp q4h, wbc daily - meropenum, daptomycin, clindamycin as per transplant medicine - ID consulted for abx plan , pending recs - IgG quant level, CMV PCR quantitative, UA w reflex as per transplant medicine - ongoing monitoring for s/s infection - Pending result from intra-op cultures Lines: - LIJ triple lumen (04/13) - difficult Piv access , can do to floor with triple lumen Dispo: transfer to medicine today . Patient seen and discussed with ICU attending Dr. Graciela Yepez MD SICU phone # [phone] documented in this [facility] Work Phone: [phone]) 210-539202-07-2024 Hospital course Narrative* Vesta Andrews MA - 04/21/2023 7:34 AM EST Discharge Diagnosis Scrotal abscess Issues Requiring Follow-Up Post op visit Test Results Pending At Discharge Pending Labs Order Current Status Type and Screen Collected (04/13/23 8301) Surgical Pathology Exam In process Tacrolimus level In process Fungal Culture/Smear Edited Hospital Course Surgeon: Dr. Peter Stahl Anesthesia: General ASA Class: III Jagruti Esparza is a 67 y.o. year old male with a significant past medical history of a ESRD s/p 2013 kidney transplant, afib, HFpEF (TTE 03/06: EF 50-55%, mild to mod dilated RA, mild elevated RVSP, mild aortic stenosis), CAD, mild aortic stenosis, GERD, WILLIAN, RLS, diverticulitis s/p colostomy who underwent I&D perineum, dahiana's gangrene washout, and R orchiectomy on 04/14/[address] Stahl. The procedure was well tolerated, and findings were described as gush of purulent dishwater fluid. The patient is currently POD #7 Days. VS remained stable. Post-op labs were significant for expected acute blood loss anemia, normal serum creatinine, elevated blood glucose, and stable at the timeof discharge. Tissue culture was found positive for (3+) Moderate Polymorphonuclear leukocytes and (4+) Abundant Gram negative bacilli. Patient was commenced on daptomycin, metropenem and clindamycinpostoperatively and ID consulted for recommendations. The recommendations were continuing IV ertapenem and p.o. fluconazole for total of 4 weeks which will hopefully cover timeframe for follow-up with urology and ID. Patient will be taking an IV antibiotic, ertapenem, once a day.He will also have an antifungal pill, fluconazole, that is taken once a day. The ertapenem should be given for [address] Junior (infectious disease) will determine if he need to refill this for another 2 weeks. On 04/15/2023, he underwent IR cholangiogram which demonstrated multiple filling defects in the gallbladderconsistent with gallstones and a stone in the common bile duct resulting in mild CBD dilation. He underwent tunneled PICC line placement with IR on 04/19/2023. Patient was making good amounts of clear yellow urine per bowers. At the time of hospital discharge He was tolerating a regular diet, ambulating independently, passing flatus, having normal bowel movements and pain was well-controlled. Home Care services were coordinated. He was discharged to home in satisfactory condition and will follow up with Dr. Bryan for s/p dahiana's assess and closure the outpatient clinic on 04/28/2023. A dimitris lift was ordered for the patient to assist patient and with transfer from bed to chairas patient will be confined to the bed without the dimitris lift. Arrangements for assistive devices to be coordinated with the home care company. Pertinent Physical Exam At Time of Discharge Physical Exam General: Laying in bed. NAD. Eyes: EOMI ENMT: no apparent injury, no lesions seen, MMM Head/neck: NCAT Cardiac: regular rate in chart Pulm: normal respiratory effort on NC GI: soft, NT/ND, end colostomy with stool and gas output, perc kerline with drainage : uncircumcised phallus with bowers in place draining CYU, scrotum with large incision loosely approximated with nylon sutures and packed with kerlix, no further purulent drainage noted, no hemorrhage noted, dressing changed at bedside. Msk: DARDEN Extremities: DARDEN at baseline Skin: pallor, decubitus ulcers noted on sacrum and mid back covered with mepilex Neuro: AOx3 Psych: appropriate mood and behavior Home Medications Medication List START taking these medications [place] Male External Cath 1 misc; Generic drug: catheter; 1 each once daily. ertapenem 1 g in sodium chloride 0.9% 50 mL IV; Infuse 1 g at 100 mL/hr over 30 minutes into a venous catheter once every [address] Junior (infectious disease doctor) to determine if refill needed or not. Do not start before April 21, 2023.; Start taking on: April 21, 2023 fluconazole 200 mg tablet; Commonly known as: Diflucan; Take 1 tablet (200 mg) by mouth 2 times a day for 26 doses. hydrOXYzine HCL 10 mg tablet; Commonly known as: Atarax; Take 1 tablet (10 mg) by mouth once daily as needed for anxiety. Kerlix 3.4 X 3.6 -yard bandage; Generic drug: gauze bandage; Apply 1 each topically once daily. oxyCODONE 5 mg immediate release tablet; Commonly known as: Roxicodone; Take 1 tablet (5 mg) by mouth every 12 hours if needed for severe pain (7 - 10) or moderate pain (4 - 6) for up to 10 days. CONTINUE taking these medications apixaban 5 mg tablet; Commonly known as: Eliquis; Take 1 tablet (5 mg) by mouth every 12 hours. atorvastatin 40 mg tablet; Commonly known as: Lipitor; Take 1 tablet (40 mg) by mouth once daily at bedtime. azaTHIOprine 50 mg tablet; Commonly known as: Imuran; Take 1 tablet (50 mg) by mouth once daily. DILT-XR 180 mg 24 hr capsule; Generic drug: dilTIAZem XR; Take 1 capsule (180 mg) by mouth once daily. magnesium oxide 400 mg (241.3 mg magnesium) tablet; Commonly known as: Mag-Ox pantoprazole 20 mg EC tablet; Commonly known as: ProtoNix polyethylene glycol 17 gram packet; Commonly known as: Glycolax, Miralax; Take 17 g by mouth once daily. Do not start before January 21, 2023. predniSONE 5 mg tablet; Commonly known as: Deltasone Prograf 0.5 mg capsule; Take 0.5 mg by mouth 2 times a day. rOPINIRole 1 mg tablet; Commonly known as: Requip sodium bicarbonate 650 mg tablet sodium chloride 1,000 mg tablet sulfamethoxazole-trimethoprim 400-80 mg tablet; Commonly known as: Bactrim STOP taking these medications empagliflozin 10 mg; Commonly known as: Jardiance Outpatient Follow-Up Future Appointments Date Time Provider Department Center 04/27/2023 11:20 AM Jimenez Junior MD [id number] [facility] 04/28/2023 11:30 AM Gerson Bryan MD [id number] [facility] 07/16/2023 1:10 PM Hernandez Hankins MD [id number] [place] Andrews MD, MS Urology Director Of Payroll Urology [id number] documented in this [facility] Work Phone: [phone]) 541-825802-06-2024 Miscellaneous Notes* Care Plan - Arnulfo Kraft RN - 04/20/2023 11:20 PM EST Problem: Pain Goal: My pain/discomfort is manageable Outcome: Progressing Problem: Safety Goal: Patient will be injury free during hospitalization Outcome: Progressing Goal: I will remain free of falls Outcome: Progressing Problem: Daily Care Goal: Daily care needs are met Outcome: Progressing Problem: Psychosocial Needs Goal: Demonstrates ability to cope with hospitalization/illness Outcome: Progressing Goal: Collaborate with me, my family, and caregiver to identify my specific goals Outcome: Progressing Problem: Discharge Barriers Goal: My discharge needs are met Outcome: Progressing Problem: Skin Goal: Decreased wound size/increased tissue granulation at next dressing change Outcome: Progressing Goal: Participates in plan/prevention/treatment measures Outcome: Progressing Goal: Prevent/manage excess moisture Outcome: Progressing Goal: Prevent/minimize sheer/friction injuries Outcome: Progressing Goal: Promote/optimize nutrition Outcome: Progressing Goal: Promote skin healing Outcome: Progressing * Care Plan - Jessica Cabrera RN - 04/20/2023 8:50 AM EST The patient's goals for the shift include pain management The clinical goals for the shift include Rest, pain management, and skin breakdown prevention. Over the shift, the patient did not make progress toward the following goals. Barriers to progression include not utilizing call light for pain management. Recommendations to address these barriers include educating about pain management regimen. * Care Plan - Zeynep Pham RN - 04/19/2023 9:07 PM EST The patient's goals for the shift include rest and pain management. The clinical goals for the shift include rest, pain management, and skin breakdown prevention. Over the shift, the patient did not make progress toward the following goals. Barriers to progression include . Recommendations to address these barriers include . Problem: Pain Goal: My pain/discomfort is manageable Outcome: Progressing Problem: Safety Goal: Patient will be injury free during hospitalization Outcome: Progressing Goal: I will remain free of falls Outcome: Progressing Problem: Psychosocial Needs Goal: Demonstrates ability to cope with hospitalization/illness Outcome: Progressing Goal: Collaborate with me, my family, and caregiver to identify my specific goals Outcome: Progressing Problem: Daily Care Goal: Daily care needs are met Outcome: Not Progressing * Post-Procedure Note - Elfego Alvarez DO - 04/19/2023 12:12 PM EST Interventional Radiology Brief Postprocedure Note Attending: Dr. [place] [employer] Specialist: None Diagnosis: Infected right scrotal hydrocele Description of procedure: Technically successful placement of a right internal jugular 5 [place] dual lumen power-injectable PICC with ultrasound and fluoroscopy guidance. The PICC is ready to use. Please refer to full radiology report for further details. Anesthesia: MAC Complications: None Estimated Blood Loss: minimal Medications As of 04/19/23 1212 clindamycin in D5W (Cleocin) IVPB - [employer] Override Pull Total dose: Cannot be calculated* *Administration dose not documented Date/Time Rate/Dose/Volume Action 04/13/23 1320 *Not included in total Missed clindamycin in D5W (Cleocin) IVPB 900 mg (mL/hr) Total volume: Not documented* Dosing weight: 79.4 *Total volume has not been documented. View each administration to see the amount administered. Date/Time Rate/Dose/Volume Action 04/13/23 1250 900 mg - 50 mL/hr (over 60 min) New Bag 1320 *Not included in total Missed 1350 (over 60 min) Stopped clindamycin in D5W (Cleocin) IVPB 900 mg (mL/hr) Total dose: 1,800 mg* Dosing weight: 79.4 *From user-documented volume Date/Time Rate/Dose/Volume Action 04/14/23 0240 900 mg - 50 mL/hr (over 60 min) New Bag 0340 50 mL Stopped 1600 900 mg - 50 mL/hr (over 60 min) - 50 mL New Bag 1700 (over 60 min) Stopped 2100 0 mL 04/15/23 0131 900 mg - 50 mL/hr (over 60 min) New Bag 0231 (over 60 min) Stopped 0803 900 mg - 50 mL/hr (over 60 min) New Bag 0903 (over 60 min) Stopped oxyCODONE-acetaminophen (Percocet) 5-325 mg per tablet 2 tablet (tablet) Total dose: 2 tablet Dosing weight: 79.4 Date/Time Rate/Dose/Volume Action 04/13/23 1324 2 tablet Given coagulation factor Xa (Andexxa) bolus from bag 400 mg (mg) Total dose: 400 mg Dosing weight: 79.4 Date/Time Rate/Dose/Volume Action 04/13/23 1610 400 mg (over 13.33 min) Bolus from Bag coagulation factor Xa (inactivated) (Andexxa) 4 mg/min infusion (mg/min) Total dose: Not documented* Dosing weight: 79.4 *Total volume has not been documented. View each administration to see the amount administered. Date/Time Rate/Dose/Volume Action 04/13/23 1721 4 mg/min - 24 mL/hr (over 120 min) New Bag 1921 (over 120 min) Stopped tacrolimus (Prograf) capsule 0.5 mg (mg) Total dose: 5.5 mg* Dosing weight: 79.4 *Administration not included in total Date/Time Rate/Dose/Volume Action 04/14/23 0133 *0.5 mg Missed 0615 0.5 mg Given 1742 0.5 mg Given 04/15/23 0606 0.5 mg Given 1736 0.5 mg Given 04/16/23 0604 0.5 mg Given 1833 0.5 mg Given 04/17/23 0644 0.5 mg Given 1901 0.5 mg Given 04/18/23 0628 0.5 mg Given 1836 0.5 mg Given 04/19/23 0540 0.5 mg Given predniSONE (Deltasone) tablet 5 mg (mg) Total dose: 30 mg Dosing weight: 79.4 Date/Time Rate/Dose/Volume Action 04/14/23 0922 5 mg Given 04/15/23 0803 5 mg Given 04/16/23 0817 5 mg Given 04/17/23 0842 5 mg Given 04/18/23 0851 5 mg Given 04/19/23 0928 5 mg Given meropenem (Merrem) 1 g in sodium chloride 0.9 % 100 mL IV (mL/hr) Total dose: 4 g* Dosing weight: 79.4 *From user-documented volume Date/Time Rate/Dose/Volume Action 04/14/23 0452 1 g - 200 mL/hr (over 30 min) New Bag 0522 100 mL [vol] Stopped 1100 1 g - 200 mL/hr (over 30 min) New Bag 1130 (over 30 min) Stopped 1200 100 mL [vol] 2000 1 g - 200 mL/hr (over 30 min) New Bag 2030 (over 30 min) Stopped 2100 100 mL [vol] 2152 0 mL [vol] 04/15/23 0205 1 g - 200 mL/hr (over 30 min) New Bag 0235 (over 30 min) Stopped 1014 1 g - 200 mL/hr (over 30 min) New Bag 1044 (over 30 min) Stopped 1817 1 g - 200 mL/hr (over 30 min) New Bag 1847 (over 30 min) Stopped 04/16/23 0300 1 g - 200 mL/hr (over 30 min) - 100 mL [vol] New Bag 0330 (over 30 min) Stopped 1100 1 g - 200 mL/hr (over 30 min) New Bag 1130 (over 30 min) Stopped 1900 1 g - 200 mL/hr (over 30 min) New Bag 1930 (over 30 min) Stopped 04/17/23 0300 1 g - 200 mL/hr (over 30 min) New Bag 0330 (over 30 min) Stopped 1052 1 g - 200 mL/hr (over 30 min) New Bag 1122 (over 30 min) Stopped DAPTOmycin (Cubicin) 400 mg in sodium chloride 0.9% 50 mL IV (mL/hr) Total dose: 400 mg* Dosing weight: 79.4 *From user-documented volume Date/Time Rate/Dose/Volume Action 04/14/23 0918 400 mg - 116 mL/hr (over 30 min) - 58 mL [vol] New Bag 0948 (over 30 min) Stopped DAPTOmycin (Cubicin) 650 mg in sodium chloride 0.9% 50 mL IV (mL/hr) Total dose: 650 mg* Dosing weight: 79.2 *From user-documented volume Date/Time Rate/Dose/Volume Action 04/15/23 1110 650 mg - 126 mL/hr (over 30 min) New Bag 1140 63 mL [vol] Stopped 04/16/23 0817 650 mg - 126 mL/hr (over 30 min) New Bag 0847 (over 30 min) Stopped 04/17/23 0956 650 mg - 126 mL/hr (over 30 min) New Bag 1026 (over 30 min) Stopped HYDROmorphone (Dilaudid) injection 0.2 mg (mg) Total dose: 1.8 mg Dosing weight: 79.4 Date/Time Rate/Dose/Volume Action 04/13/23 2344 0.2 mg Given 04/14/23 0241 0.2 mg Given 0703 0.2 mg Given 0912 0.2 mg Given 1155 0.2 mg Given 1612 0.2 mg Given 04/15/23 1222 0.2 mg Given 04/16/23 0039 0.2 mg Given 0703 0.2 mg Given hydrOXYzine HCL (Atarax) tablet 10 mg (mg) Total dose: 120 mg Dosing weight: 79.4 Date/Time Rate/Dose/Volume Action 04/14/23 0146 10 mg Given 0615 10 mg Given 0919 10 mg Given 1334 10 mg Given 1741 10 mg Given 04/15/23 1625 10 mg Given 04/16/23 0039 10 mg Given 04/17/23 0648 10 mg Given 1121 10 mg Given 1545 10 mg Given 04/18/23 1752 10 mg Given 04/19/23 0537 10 mg Given insulin lispro (HumaLOG) injection 0-5 Units (Units) Total dose: Cannot be calculated* Dosing weight: 79.4 *Administration dose not documented Date/Time Rate/Dose/Volume Action 04/14/23 0000 *Not included in total Missed 0400 *Not included in total Missed 0800 *Not included in total Missed 1200 *Not included in total Missed 1600 *Not included in total Missed 2000 *Not included in total Missed 04/15/23 0000 *Not included in total Missed 0400 *Not included in total Missed 0800 *Not included in total Missed 1200 *Not included in total Missed 1600 *Not included in total Missed 2000 *Not included in total Missed 04/16/23 0000 *Not included in total Missed 0400 *Not included in total Missed 0800 *Not included in total Missed 1200 *Not included in total Missed insulin lispro (HumaLOG) injection 0-5 Units (Units) Total dose: Cannot be calculated* Dosing weight: 79.2 *Administration dose not documented Date/Time Rate/Dose/Volume Action 04/16/23 1700 *Not included in total Missed 04/17/23 0800 *Not included in total Missed 1200 *Not included in total Missed 1700 *Not included in total Missed 04/18/23 0800 *Not included in total Missed 1200 *Not included in total Missed 1700 *Not included in total Missed 04/19/23 0800 *Not included in total Missed diphenhydrAMINE (BENADryl) injection 10 mg (mg) Total dose: 10 mg Dosing weight: 79.4 Date/Time Rate/Dose/Volume Action 04/14/23 0000 10 mg Given lactated Ringer's infusion (mL/hr) Total volume: 1,775 mL* Dosing weight: 79.4 *From user-documented volume Date/Time Rate/Dose/Volume Action 04/14/23 0015 100 mL/hr New Bag 0100 75 mL 0200 100 mL 0300 100 mL 0400 100 mL 0500 100 mL 0600 100 mL 0700 100 mL 0800 100 mL 0900 100 mL 1000 100 mL 1100 100 mL 1200 100 mL 1300 100 mL 1400 100 mL 1500 100 mL 1600 100 mL 1700 100 mL 1735 Stopped 1800 100 mL 1918 0 mL 2100 0 mL 2152 0 mL magnesium sulfate IV 2 g (mL/hr) Total volume: Not documented* Dosing weight: 79.4 *Total volume has not been documented. View each administration to see the amount administered. Date/Time Rate/Dose/Volume Action 04/14/23 0120 2 g - 25 mL/hr (over 120 min) New Bag 0320 (over 120 min) Stopped magnesium sulfate IV 2 g (mL/hr) Total volume: Not documented* Dosing weight: 79.2 *Total volume has not been documented. View each administration to see the amount administered. Date/Time Rate/Dose/Volume Action 04/16/23 0606 2 g - 25 mL/hr (over 120 min) New Bag 0806 (over 120 min) Stopped albumin human 25 % solution 25 g (mL/hr) Total dose: 25 g* Dosing weight: 79.4 *From user-documented volume Date/Time Rate/Dose/Volume Action 04/14/23 0141 25 g - 100 mL/hr (over 60 min) New Bag 0241 100 mL Stopped albumin human 5 % infusion 25 g (mL/hr) Total dose: 25 g* Dosing weight: 79.4 *From user-documented volume Date/Time Rate/Dose/Volume Action 04/14/23 0450 25 g - 500 mL/hr (over 60 min) New Bag 0550 500 mL Stopped heparin (porcine) injection 5,000 Units (Units) Total dose: 30,000 Units* Dosing weight: 79.2 *Administration not included in total Date/Time Rate/Dose/Volume Action 04/14/23 0715 *5,000 Units Missed 1335 5,000 Units Given 2142 5,000 Units Given 04/15/23 0606 5,000 Units Given 1339 5,000 Units Given 2131 5,000 Units Given 04/16/23 0605 5,000 Units Given pantoprazole (ProtoNix) EC tablet 40 mg (mg) Total dose: 240 mg Dosing weight: 79.2 Date/Time Rate/Dose/Volume Action 04/14/23 0919 40 mg Given 04/15/23 0606 40 mg Given 04/16/23 0606 40 mg Given 04/17/23 0842 40 mg Given 04/18/23 0628 40 mg Given 04/19/23 0535 40 mg Given polyethylene glycol (Glycolax, Miralax) packet 17 g (g) Total dose: 85 g* Dosing weight: 79.2 *Administration not included in total Date/Time Rate/Dose/Volume Action 04/14/23 0958 17 g Given 04/15/23 0803 17 g Given 04/16/23 0816 17 g Given 04/17/23 0842 17 g Given 04/18/23 0851 17 g Given 04/19/23 0900 *17 g Missed dilTIAZem SR (Cardizem SR) 12 hr capsule 90 mg (mg) Total dose: 630 mg* Dosing weight: 79.2 *Administration not included in total Date/Time Rate/Dose/Volume Action 04/14/23 1146 90 mg Given 2100 *90 mg Missed 04/15/23 0802 90 mg Given 213 90 mg Given 04/16/23 0817 90 mg Given 2038 90 mg Given 04/17/23 0842 90 mg Given 2048 90 mg Given lactated Ringer's bolus 500 mL (mL/hr) Total volume: 500 mL* Dosing weight: 79.2 *From user-documented volume Date/Time Rate/Dose/Volume Action 04/14/23 2124 500 mL - 1,000 mL/hr (over 30 min) [dose] - 0 mL [vol] New Bag 2152 466.67 mL 2154 (over 30 min) Stopped 2200 33.33 mL 2301 0 mL sodium chloride 0.9 % bolus 500 mL (mL/hr) Total volume: 500 mL* Dosing weight: 79.2 *From user-documented volume Date/Time Rate/Dose/Volume Action 04/15/23 1339 500 mL - 250 mL/hr (over 120 min) New Bag 1539 500 mL Stopped iohexol (OMNIPaque) 350 mg iodine/mL solution 50 mL (mL) Total volume: 50 mL Dosing weight: 79.2 Date/Time Rate/Dose/Volume Action 04/15/23 1537 50 mL Given sodium phosphate 21 mmol in sodium chloride 0.9% 250 mL IV (mL/hr) Total volume: Not documented* Dosing weight: 79.2 *Total volume has not been documented. View each administration to see the amount administered. Date/Time Rate/Dose/Volume Action 04/16/23 1001 21 mmol - 41.7 mL/hr (over 360 min) New Bag 1601 (over 360 min) Stopped sodium phosphate 21 mmol in sodium chloride 0.9% 250 mL IV (mL/hr) Total dose: 42 mmol* Dosing weight: 79.2 *From user-documented volume Date/Time Rate/Dose/Volume Action 04/17/23 0649 21 mmol - 41.7 mL/hr (over 360 min) - 250 mL [vol] New Bag 1249 250 mL [vol] Stopped acetaminophen (Tylenol) tablet 650 mg (mg) Total dose: 6,500 mg Dosing weight: 79.2 Date/Time Rate/Dose/Volume Action 04/16/23 0955 650 mg Given 1500 650 mg Given 2037 650 mg Given 04/17/23 0842 650 mg Given 1544 650 mg Given 2048 650 mg Given 04/18/23 0851 650 mg Given 1528 650 mg Given 2027 650 mg Given 04/19/23 0928 650 mg Given oxyCODONE (Roxicodone) immediate release tablet 10 mg (mg) Total dose: 100 mg Dosing weight: 79.2 Date/Time Rate/Dose/Volume Action 04/16/23 1001 10 mg Given 1504 10 mg Given 2038 10 mg Given 04/17/23 0513 10 mg Given 1409 10 mg Given 04/18/23 0911 10 mg Given 1324 10 mg Given 2028 10 mg Given 04/19/23 0538 10 mg Given 0940 10 mg Given aspirin chewable tablet 81 mg (mg) Total dose: 324 mg Dosing weight: 79.2 Date/Time Rate/Dose/Volume Action 04/16/23 1051 81 mg Given 04/17/23 0842 81 mg Given 04/18/23 0851 81 mg Given 04/19/23 0928 81 mg Given atorvastatin (Lipitor) tablet 40 mg (mg) Total dose: 120 mg Dosing weight: 79.2 Date/Time Rate/Dose/Volume Action 04/16/232036 40 mg Given 04/17/232047 40 mg Given 04/18/232027 40 mg Given apixaban (Eliquis) tablet 5 mg (mg) Total dose: 30 mg* Dosing weight: 79.2 *Administration not included in total Date/Time Rate/Dose/Volume Action 04/16/23 1051 5 mg Given 2036 5 mg Given 04/17/23 0842 5 mg Given 2047 5 mg Given 04/18/23 0851 5 mg Given 2027 5 mg Given 2056 *Not included in total Held by provider 04/19/23 0900 *5 mg Missed 1159 *Not included in total Unheld by provider micafungin (Mycamine) 100 mg in dextrose 5 % in water (D5W) 100 mL IV (mL/hr) Total volume: Not documented* Dosing weight: 79.2 *Total volume has not been documented. View each administration to see the amount administered. Date/Time Rate/Dose/Volume Action 04/16/23 1624 100 mg - 105 mL/hr (over 60 min) New Bag 1724 (over 60 min) Stopped 04/17/23 1545 100 mg - 105 mL/hr (over 60 min) New Bag 1645 (over 60 min) Stopped ertapenem (INVanz) 1 g in sodium chloride 0.9% 50 mL IV (mL/hr) Total volume: Not documented* Dosing weight: 79.2 *Total volume has not been documented. View each administration to see the amount administered. Date/Time Rate/Dose/Volume Action 04/18/23 1246 1 g - 100 mL/hr (over 30 min) New Bag 1316 (over 30 min) Stopped fluconazole (Diflucan) tablet 200 mg (mg) Total dose: 800 mg Dosing weight: 79.2 Date/Time Rate/Dose/Volume Action 04/17/232047 200 mg Given 04/18/23 0851 200 mg Given 2027 200 mg Given 04/19/23927 200 mg Given dilTIAZem CD (Cardizem CD) 24 hr capsule 180 mg (mg) Total dose: 360 mg Dosing weight: 79.2 Date/Time Rate/Dose/Volume Action 04/18/23 0851 180 mg Given 02/05/24 0928 180 mg Given fentaNYL PF (Sublimaze) injection (mcg) Total dose: 50 mcg Date/Time Rate/Dose/Volume Action 04/19/231103 50 mcg Given midazolam (Versed) injection (mg) Total dose: 1 mg Date/Time Rate/Dose/Volume Action 04/19/231103 1 mg Given No specimens collected See detailed result report with images in PACS. The patient tolerated the procedure well without incident or complication and is in stable condition. Elfego Alvarez DO, PGY-2 Diagnostic Radiology [facility] * Pre-Procedure Note - Elfego Alvarez DO - 04/19/2023 10:38 AM EST Interventional Radiology Preprocedure Note Procedure: Tunneled PICC line placement Indication for procedure: The primary encounter diagnosis was Scrotal abscess. Diagnoses of Scrotalwall abscess, Dahiana's gangrene, Lower extremity edema, Localized swelling of left lower leg, andPost-operative state were also pertinent to this visit. Relevant review of systems: NA Relevant Labs: Lab Results Component Value Date CREATININE 0.40 (L) 04/19/2023 EGFR >90 04/19/2023 INR 1.5 (H) 04/19/2023 PROTIME 16.5 (H) 04/19/2023 Planned Sedation/Anesthesia: Moderate Airway assessment: normal Directed physical examination: A&Ox3 Left internal jugular trialysis catheter is noted RUE AV fistula graft Normal rate of respirations Mallampati: II (hard and soft palate, upper portion of tonsils anduvula visible) ASA Score: ASA 2 - Patient with mild systemic disease with no functional limitations Benefits, risks and alternatives of procedure and planned sedation have been discussed with the patient and/or their direct marketing representative. All questions answered and they agree to proceed. Elfego Alvarez DO, PGY-2 Diagnostic Radiology [facility] * Care Plan - Graeme Orellana RN - 04/16/2023 1:06 AM EST The clinical goals for the shift include Pain management Problem: Pain Goal: My pain/discomfort is manageable Outcome: Progressing Problem: Safety Goal: Patient will be injury free during hospitalization Outcome: Progressing Goal: I will remain free of falls Outcome: Progressing Problem: Daily Care Goal: Daily care needs are met Outcome: Progressing Problem: Psychosocial Needs Goal: Demonstrates ability to cope with hospitalization/illness Outcome: Progressing Goal: Collaborate with me, my family, and caregiver to identify my specific goals Outcome: Progressing * Post-Procedure Note - Onelia Martínez MD - 04/15/2023 5:10 PM EST Interventional Radiology Brief Postprocedure Note Attending: Dr. Suarez Diagnosis: Cholelithiasis and Choledocholithiasis. Description of procedure: Status post IR cholangiogram which demonstrated multiple filling defects in the gallbladder consistent with gallstones and a stone in the common bile duct resulting in mild CBD dilation. The cystic duct is patent. Anesthesia: Local Complications: None Estimated Blood Loss: none No specimens collected See detailed result report with images in PACS. The patient tolerated the procedure well without incident or complication and is in stable condition. * Pre-Procedure Note - Onelia Martínez MD - 04/15/2023 3:28 PM EST Interventional Radiology Preprocedure Note Indication for procedure: The primary encounter diagnosis was Scrotal abscess. Diagnoses of Scrotalwall abscess, Dahiana's gangrene, Lower extremity edema, and Localized swelling of left lower leg were also pertinent to this visit. Relevant review of systems: NA Relevant Labs: Lab Results Component Value Date CREATININE 0.51 04/15/2023 EGFR >90 04/15/2023 INR 1.2 (H) 04/15/2023 PROTIME 13.6 (H) 04/15/2023 Planned Sedation/Anesthesia: Minimal Airway assessment: normal Directed physical examination: Physical Exam HENT: Head: Normocephalic. Cardiovascular: Rate and Rhythm: Normal rate. Pulmonary: Effort: Pulmonary effort is normal. Neurological: Mental Status: He is alert. Mallampati: I (soft palate, uvula, fauces, and tonsillar pillars visible) ASA Score: ASA 3 - Patient with moderate systemic disease with functional limitations Benefits, risks and alternatives of procedure and planned sedation have been discussed with the patient and/or their direct marketing representative. All questions answered and they agree to proceed. * Care Plan - Jazmin Ceron RN - 04/15/2023 12:47 PM EST Problem: Pain Goal: My pain/discomfort is manageable Outcome: Progressing Problem: Safety Goal: Patient will be injury free during hospitalization Outcome: Progressing Goal: I will remain free of falls Outcome: Progressing Problem: Daily Care Goal: Daily care needs are met Outcome: Progressing Problem: Psychosocial Needs Goal: Demonstrates ability to cope with hospitalization/illness Outcome: Progressing Goal: Collaborate with me, my family, and caregiver to identify my specific goals Outcome: Progressing Problem: Discharge Barriers Goal: My discharge needs are met Outcome: Progressing The patient's goals for the shift include decrease pain * Care Plan - Chanel Savage RN - 04/14/2023 10:17 PM EST The patient's goals for the shift include resting comfortably post op The clinical goals for the shift include maintain MAP > 65 Over the shift, the patient did not make progress toward the following goals. Barriers to progression include recent surgery. Recommendations to address these barriers include offering pain medication when applicable. * Significant Event - Debbie Scott DO - 04/13/2023 11:38 PM EST Post-Operative Check: Patient resting comfortably in bed. Reporting that he feels that he cannot take a deep breath but saturation 100% on supplemental O2. Clear yellow urine in bowers. Scrotal exam with kerlix packing present. No signs of active bleeding.Skin appears healthy. AF, HR 85, most recent BP 97/57, satting 100%. 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] Post-op Diagnosis * Scrotal wall abscess [N49.2] * 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] Procedures Incision and Drainage Perineum, Dahiana's gangrene debridment, Right Orchiectomy 72905 - [place] INCISION & DRAINAGE ABSCESS COMPLICATED/MULTIPLE Surgeons * Peter Stahl - Primary * Etta Roth Resident/Fellow/Other Waste/Materials Exchange Specialist: Surgeon(s) and Role: * Etta Roth MD Procedure Summary Anesthesia: General ASA: III Anesthesia Staff: Anesthesiologist: Jacob Forrester MD; Colleen Best MD BOAT DISPATCHER: Acacia Ordonez APRN-BOAT DISPATCHER Sales Development Coordinator: Kristen Mccann MD Estimated Blood Loss: 100 mL Intra-op Medications: Administrations occurring from 1605 to 1650 on 04/13/23: * No intraprocedure medications in log * Anesthesia Record Intraprocedure I/O Totals Intake lactated Ringer's 1000.00 mL Total Intake 1000 mL Output Urine 30 mL Total Output 30 mL Net Net Volume 970 mL Specimen: ID Type Source Tests Collected by Time 1 : RIGHT TESTICLE HYDROCELE Tissue TESTIS RIGHT SURGICAL PATHOLOGY EXAM Peter Stahl MD [facility] 04/13/20231921 2 : RIGHT SCROTAL TISSUE Tissue SOFT TISSUE RESECTION SURGICAL PATHOLOGY EXAM Peter Stahl MD [facility] 04/13/20231926 A : SCROTAL WOUND CULTURE 1 Swab ABSCESS FUNGAL CULTURE/SMEAR, TISSUE/WOUND CULTURE/SMEAR Peter Alicea MD [facility] 04/13/20231854 B : SCROTAL WOUND CULTURE 2 Swab ABSCESS FUNGAL CULTURE/SMEAR, TISSUE/WOUND CULTURE/SMEAR Peter Alicea MD [facility] 04/13/20231858 Staff: Filler In: Talha Finn RN Relief Filler In: Jessica Tineo RN Scrub Person: Marilyn Bruce RN Drains and/or Catheters: Closed/Suction Drain Lateral RUQ 8 Fr. (Active) Colostomy Other LLQ (Active) Urethral Catheter Non-latex 16 Fr. (Active) Findings: large infected right hydrocele intimately invested with right testicle, no involvement ofleft scrotal contents. Indications: Jagruti Esparza is an 67 y.o. 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 The patient was seen in the preoperative area. The risks, benefits, complications, treatment options, non-operative alternatives, expected recovery and outcomes were discussed with the patient. The possibilities of reaction to medication, pulmonary aspiration, injury to surrounding structures, bleeding, recurrent infection, the need for additional procedures, failure to diagnose a condition, and creating a complication requiring transfusion or operation were discussed with the patient. The patient concurred with the proposed plan, giving informed consent. The site of surgery was properly noted/marked if necessary per policy. The patient has been actively warmed in preoperative area. Preopera tive antibiotics have been ordered and given within 1 hours of incision. Venous thrombosis prophylaxis have been ordered including bilateral sequential compression devices Procedure Details: Patient was brought into the operating room and positioned in supine position. The previous bowers catheter was removed. Following placement of lines and induction of anesthesia, patient was repositioned in lithotomy position and prepped and draped in the usual sterile fashion. A new 16 Fr bowers catehter was placed. We identified two ulcerating lesions along the right hemiscrotum. A midline raphe incision was madealong the scrotum. We then dissected down through dartos and tunica vaginalis and entered a plane which connected with the two ulcerative lesions. Upon blunt dissection into the more lateral lesion, we encountered a gush of purulent, dishwater fluid. Wound cultures were collected from this fluid. We opened the skin incision to connect the skin wounds and dissected down to what was an inflamed, necrotic hydrocele sac. Evacuation of all purulent contents revealed necrotic tissue edges and we wereunable to identify the position of the testicle within the necrotic sac. We were able to peel the hy drocele rind off from the surrounding dartos tissue and midline septum until we isolated the hydrocele and testicle on the spermatic cord. There was a spermatic cord lipoma noted. The tissue within the right scrotal pocket appeared healthy and pink. At this point we decided to perform an orchiectomy. The spermatic cord was isolated from the lipoma. The cord was then divided into two packets. The vas was doubly clamped, divided, and suture ligated with 2-0 silk tie. The spermatic vessels were then doubly clamped, divided, and suture ligated with a 2-0 silk tie and and 0 silk stitch. We then similarly took the lipoma. Necrotic soft tissue and right lateral scrotal skin was excised sharply and all sent for specimen. The entire wound was then copiously irrigated with polymixin in normal saline using the puls-a-vac.Generous hemostasis was obtained. We then partially closed the scrotal incision using 2-0 nylon in a horizontal mattress fashion. We packed the wound with betadine-soaked kerlix, then applied ABDs and mesh panties. This concluded the procedure. Complications: None; patient tolerated the procedure well. Disposition: ICU in guarded condition Condition: stable Additional Details: n/a Attending Attestation: I was present and scrubbed for the florez portions of the procedure. Peter Stahl * ED Procedure Note - Arlene Bates MD - 04/13/2023 2:30 AM ESTAssociated Order(s): Central Line Procedure Central Line Performed by: Arlene Bates MD Authorized by: Tano Perez MD Consent: Consent obtained: Verbal Consent given by: Patient Risks, benefits, and alternatives were discussed: yes Risks discussed: Bleeding and infection Alternatives discussed: No treatment Seaview protocol: Patient identity confirmed: Verbally with patient and arm band Pre-procedure details: Indication(s): central venous access Hand hygiene: Hand hygiene performed prior to insertion Sterile barrier technique: All elements of maximal sterile technique followed Skin preparation: Chlorhexidine Skin preparation agent: Skin preparation agent completely dried prior to procedure Sedation: Sedation type: None Anesthesia: Anesthesia method: Local infiltration Local anesthetic: Lidocaine 1% w/o epi Procedure details: Location: L internal jugular Patient position: Reverse Trendelenburg Procedural supplies: Triple lumen Catheter size: 7 Fr Landmarks identified: yes Ultrasound guidance: yes Ultrasound guidance timing: prior to insertion and real time Sterile ultrasound techniques: Sterile gel and sterile probe covers were used Number of attempts: 2 Successful placement: yes Post-procedure details: Post-procedure: Dressing applied and line sutured Assessment: Blood return through all ports, no pneumothorax on x-ray and placement verified by x-ray Procedure completion: Tolerated Assisted by Arnaldo Lawton MD, EM-3. Arlene Bates MD Resident 04/13/23 191 Tano Perez MD 04/14/23 1434 Associated attestation - Tano Perez MD - 04/14/2023 2:34 PM EST I was present during all critical and florez portions of the procedure(s) and immediately available [facility] services the entire duration. See resident note for details. documented in this [facility] Work Phone: [phone] [phone] Consult note* Susana Leon RN - 04/20/2023 3:17 PM EST Images from the original note were not included. Wound Care Consult Visit Date: 04/20/2023 Patient Name: Jagruti Esparza Date of : 1955 Reason for Consult: Wound to buttocks and spine Wound History: Jagruti Esparza is a 67 y/o M with a history of ESRD s/p 2013 renal transplant, afib,HFpEF (TTE 03/06: EF 50-55%, mild to mod dilated RA, mild elevated RVSP, mild aortic stenosis), CAD, mild aortic stenosis, GERD, WILLIAN, and RLS. presenting to SICU from OR s/p I&D perineum, dahiana's gangrene washout, and R orchiectomy on 04/14. Wound Assessment: Wound 01/14/23 Pressure Injury Buttocks Left (Active) Wound 01/15/23 Incision Umbilicus (Active) Wound 01/18/23 Pressure Injury Buttocks Right (Active) Wound Image 04/20/23 1336 Site Assessment Purple;Red;[place];Maceration 04/20/23 1336 Afsaneh-Wound Assessment Blanchable erythema 04/20/23 1336 Pressure Injury Stage DTPI 04/20/23 1336 Shape irregular 04/20/23 1336 Wound Length (cm) 2.5 cm 04/20/23 1336 Wound Width (cm) 2 cm 04/20/23 1336 Wound Surface Area (cm^2) 5 cm^2 04/20/23 1336 Wound Depth (cm) 0.1 cm 04/20/23 1336 Wound Volume (cm^3) 0.5 cm^3 04/20/23 1336 Margins Poorly defined 04/20/23 1336 Drainage Description None 04/20/23 1336 Drainage Amount None 04/20/23 1336 Wound 02/25/23 Pressure Injury Sacrum Left;Medial;Right (Active) Wound 04/13/23 Incision Scrotum (Active) Site Assessment Clean;Dry;Intact 04/20/23 0739 Afsaneh-Wound Assessment Clean;Dry 04/19/232049 State of Healing Healing ridge 04/16/23 0400 Margins Well-defined edges 04/15/23 0800 Closure Sutures 04/20/23 0739 Drainage Description None 04/20/23 0739 Drainage Amount None 04/20/23 0739 Dressing Kerlix/rolled gauze;Packed 04/20/23 0739 Dressing Changed New 04/19/232049 Dressing Status Clean 04/19/232049 Wound 04/17/23 Pressure Injury Back Medial (Active) Wound Image 04/20/23 1338 Site Assessment Purple;Red 04/20/23 1338 Afsaneh-Wound Assessment Intact 04/20/23 1338 Non-staged Wound Description Full thickness 04/20/23 1338 Pressure Injury Stage U 04/20/23 1338 Shape irregular 04/20/23 1338 Wound Length (cm) 3 cm 04/20/23 1338 Wound Width (cm) 1 cm 04/20/23 1338 Wound Surface Area (cm^2) 3 cm^2 04/20/23 1338 Margins Attached edges 04/20/23 1338 Drainage Description None 04/20/23 1338 Drainage Amount None 04/20/23 1338 Dressing Silicone border dressing;Xeroform 04/20/23 1338 Dressing Changed Changed 04/20/23 1338 Dressing Status Other (Comment) 04/17/23 1816 Wound Team Summary Assessment: Patient has dark purple tissue near the bony prominence on right buttocks. Periwound skin is denuded. His mid spine has 3 dark purple areas over the bony prominences. All appear to be DTI's. Recommendations: Spine: Clean areas to spine with cleansing cloth. Cover purple areas with Xerofoam and the Mepilex.Change daily. Right buttocks: Clean with cleansing cloth. Apply Triad to all open areas and dark purple skin. Cover with Mepilex and change daily. Change more often if needed for episodes of incontinence. Wound Team Plan: Wound team will continue to follow for ostomy assessment and wound assessment twice a week. SUSANA LEON RN, BSN, CWOCN 04/20/2023 3:17 PM * Kena Vazquez PA-C - 04/15/2023 3:42 PM EST [facility] ACUTE CARE SURGERY - HISTORY AND PHYSICAL / CONSULT Patient Name: Jagruti Esparza Admit Date: [id number] : 1955 AGE: 67 y.o. GENDER: male TODAY'S ASSESSMENT AND PLAN OF CARE: This is a 67 y/o M with a PMH of HTN, CAD, HFpEF (50-55%), paroxysmal Afib/flutter, ESRD s/p kidneytxp (2012), hiatal hernia, GERD, complicated diverticulitis with pericolonic abscess s/p lap sigmoid resection with end colostomy, and acalculous cholecystitis s/p percutaneous cholecystostomy tube pl acement on 02/25/23 who is admitted for management of Dahiana's gangrene. ACS consulted to evaluate status of percutaneous cholecystostomy tube. Patient initially presented in February 2023 with RUQ pain consistent with cholecystitis but was also found to have troponinemia >6000. For this reason, cholecystitis was managed nonoperatively with percutaneous cholecystostomy tube. Since then, patient's RUQ pain has subsided but he does still endorse discomfort around the tube. He has been admitted since yesterday with Dahiana's gangrene, now POD1 s/p I&D of perineum, washout, and R orchiectomy. Recommendations: - IR guided cholangiogram today - Will follow up results of above - Rest of care per primary team Discussed with attending, Dr. Nicki Vazquez PA-C CHIEF COMPLAINT/REASON FOR CONSULT: Management of percutaneous cholecystostomy tube placed in February 2023 No overnight events PAST MEDICAL HISTORY: PMH: Past Medical History: Diagnosis Date PONV (postoperative nausea and vomiting) PSH: Past Surgical History: Procedure Laterality Date CARDIAC CATHETERIZATION N/A 03/02/2023 Procedure: Left Heart Cath; Surgeon: Leonardo Welch MD; Location: [address] Cardiac Line Installer; Service: Cardiovascular; Laterality: N/A; COLOSTOMY CT GUIDED IMAGING FOR ABSCESS DRAIN 01/11/2023 CT GUIDED IMAGING FOR ABSCESS DRAIN 01/11/2023 Jerome Farrell MD [facility] [place] CT GALLBLADDER SURGERY OTHER SURGICAL HISTORY 12/25/2020 Arteriovenous fistula creation procedure OTHER SURGICAL HISTORY 12/25/2020 Neck surgery OTHER SURGICAL HISTORY 12/25/2020 Kidney transplantation OTHER SURGICAL HISTORY 12/25/2020 Facial surgery OTHER SURGICAL HISTORY 12/25/2020 Vasectomy OTHER SURGICAL HISTORY 07/11/2021 Colonoscopy complete for polypectomy FH: Family History Problem Relation Name Age of Onset Diabetes type I Mother Other (malignant neoplasm of colon) Mother Other (high serum cholestanol) Mother Other (heart problem) Father Other (CABG) Father Other (cardiovascular disease) Father SOCIAL HISTORY: Smoking: Social History Tobacco Use Smoking Status Never Smokeless Tobacco Never Alcohol: Social History Substance and Sexual Activity Alcohol Use Not Currently Drug use: Denies MEDICATIONS: Prior to Admission medications Medication Sig Start Date End Date Taking? Authorizing Provider apixaban (Eliquis) 5 mg tablet Take 1 tablet (5 mg) by mouth every 12 hours. 03/26/23 03/25/24 Hernandez Hankins MD atorvastatin (Lipitor) 40 mg tablet Take 1 tablet (40 mg) by mouth once daily at bedtime. 03/26/23 03/25/24 Hernandez Hankins MD azaTHIOprine (Imuran) 50 mg tablet Take 1 tablet (50 mg) by mouth once daily. 03/04/23 06/02/23 Ludy Chandler MD DILT-XR 180 mg 24 hr capsule Take 1 capsule (180 mg) by mouth once daily. 03/26/23 03/25/24 Hernandez Slade MD empagliflozin (Jardiance) 10 mg Take 1 tablet (10 mg) by mouth once daily. 03/05/23 04/04/23 MD Luisito magnesium oxide (Mag-Ox) 400 mg (241.3 mg magnesium) tablet Take 1 tablet (400 mg) by mouth once daily. 11/17/22 Historical Provider, pantoprazole (ProtoNix) 20 mg EC tablet Take 1 tablet (20 mg) by mouth twice a day. 07/20/22 Historical Provider, polyethylene glycol (Glycolax, Miralax) 17 gram packet Take 17 g by mouth once daily. Do not start before January 21, 2023. 01/21/23 Mery Jones MD predniSONE (Deltasone) 5 mg tablet Take 1 tablet (5 mg) by mouth once daily in the morning. Historical Provider, rOPINIRole (Requip) 1 mg tablet Take 1 tablet (1 mg) by mouth once daily at bedtime. 06/13/13 Historical Provider, sodium bicarbonate 650 mg tablet Take 1 tablet (650 mg) by mouth 3 times a day. Historical Provider, sodium chloride 1,000 mg tablet Take 1 tablet (1 g) by mouth 3 times a day. Historical Provider, sulfamethoxazole-trimethoprim (Bactrim) 400-80 mg tablet Take 1 tablet by mouth once daily in the morning. Historical Provider, tacrolimus (Prograf) 0.5 mg capsule Take 0.5 mg by mouth 2 times a day. 01/20/23 Mery Jones MD ALLERGIES: Allergies Allergen Reactions Cephalexin Hives, Rash and Headache headache Other reaction(s): Unknown Reaction headache Tobramycin Rash Other Reaction(s): pain rash Pain in groin and rectum area Other Reaction(s): pain rash Pain in groin and rectum area Meperidine Dizziness [place] weird Other reaction(s): Other: See Comments, Unknown Reaction dizziness Erythromycin Rash headache Other reaction(s): Other: See Comments headache Penicillins Hives and Rash At 8 months old, swelling and hives. REVIEW OF SYSTEMS: All systems reviewed and otherwise negative. PHYSICAL EXAM: General: NAD, resting comfortably HEENT: NCAT Resp: Nonlabored breathing on NC CV: RRR Abd: Soft, NTND with percutaneous cholecystostomy tube in place, bile in bag. Colostomy pink and viable : Dressing in place over wound. Bowers draining clear yellow urine MSK: Moves all extremities Psych: Appropriate mood and behavior IMAGING SUMMARY: CT A/P 02/25: 1. Gallbladder wall thickening with pericholecystic fluid. Possible biliary sludge. Findings are concerning for cholecystitis. Consider right upper quadrant ultrasound. 2. Postsurgical changes of left lower quadrant end colostomy. Hazy fat stranding surrounding the descending and sigmoid colon may represent postsurgical changes, colitis, or mild diverticulitis. Correlate clinically. 3. Similar appearance compared to prior of a 2 cm right middle lobe density with adjacent satellitenodules/tree-in-bud opacities. Findings may be infectious or malignant. PET-CT or three-month follow-up chest CT is recommended for further evaluation. 4. Ectatic main pulmonary artery measuring 3.6 cm in diameter which can be seen in pulmonary hypertension. Correlate clinically. 5. Status post renal transplant in the right iliac fossa. 6. Contrast within the subcutaneous soft tissues anterior to the left shoulder, likely secondary tocontrast extravasation. Please correlate with neurovascular examination. 7. The right lateral abdominal wall is not completely included in the field of view. 8. Additional chronic findings as above. LABS: Results from last 7 days Lab Units 04/15/23 0009 04/14/23 1003 04/14/23 0745 WBC AUTO x10*3/uL 7.9 6.7 6.1 HEMOGLOBIN g/dL 8.1* 8.2* 7.5* HEMATOCRIT % 25.5* 25.9* 24.1* PLATELETS AUTO x10*3/uL 282 256 243 Results from last 7 days Lab Units 04/15/23 0009 04/13/23 2242 APTT seconds 20* 27 INR 1.2* 1.5* Results from last 7 days Lab Units 04/15/23 0009 04/14/23 1003 04/13/23 2242 04/13/23 1448 SODIUM mmol/L 134* 133* 132* 130* POTASSIUM mmol/L 4.6 4.9 5.1 6.6* CHLORIDE mmol/L 108* 104 105 105 CO2 mmol/L 23 18* 21 21 BUN mg/dL 13 14 15 14 CREATININE mg/dL 0.51 0.49* 0.59 0.55 CALCIUM mg/dL 11.0* 10.9* 10.4 10.5 PROTEIN TOTAL g/dL -- -- 5.3* 5.6* BILIRUBIN TOTAL mg/dL -- -- 0.5 0.7 ALK PHOS U/L -- -- 54 52 ALT U/L -- -- 12 12 AST U/L -- -- 12 30 GLUCOSE mg/dL 127* 89 123* 118* Results from last 7 days Lab Units 04/13/23 22404/13/23 1448 BILIRUBIN TOTAL mg/dL 0.5 0.7 BILIRUBIN DIRECT mg/dL 0.2 -- I have reviewed all laboratory and imaging results ordered/pertinent for this encounter. * Norman Mullins MD - 04/14/2023 10:29 PM ESTAssociated Order(s): Inpatient consult to Infectious Diseases Inpatient consult to Infectious Diseases Consult performed by: Norman Mullins MD Consult ordered by: Peter Stahl MD MPH Referred by Peter Stahl MD MPH Primary MD: Aishwarya Lundy MD Reason For Consult Dahiana abscess History Of Present Illness Jagruti Esparza is a 67 y.o. male presenting with scrotal pain, swelling and purulent discharge Hx of right kidney transplant in 2012 ( CMV-/+, EBV +/+) on azathiopurine, tacrolimus, prednisone ,afib on diltiazem and apixaban, he had a bad year in 2022 with diverticulitis with abscess ( drain grew E.coli and bacteroides ) with colostomy bag in December 2022, also had acalculous cholecystitis with silent ND treated with interventional radiology drainage which grew ESBL E.coli in February 2023. He was supposed to get cholecystectomy later on. This time he came to outside hospital with 4 days of progressive erythema, pain, swelling with pustular discharge on his scrotum. He doesn't recall any trauma or wound on his scrotum before this. He has hydrocele. CT scan from outside hospital showed large abscess and was transferred here and was apixaban reversed and had emergent surgery with I/D, right orchiectomy last night. Operative finding was described as gush of purulent dishwater fluid . Now he is recovering at [facility], ID was consulted for dahiana abscess antibiotic management. He has hx of allergy to cephalexin, tobramycin, erythromycin and pencillin/amoxicillin, - all rash . He was put on daptomycin , clindamycin and meropenem by overnight ICU team, Past Medical History He has a past medical history of PONV (postoperative nausea and vomiting). Surgical History He has a past surgical history that includes Other surgical history (12/25/2020); Other surgical history (12/25/2020); Other surgical history (12/25/2020); Other surgical history (12/25/2020); Other surgical history (12/25/2020); Other surgical history (07/11/2021); CT guided imaging for abscess drain (01/11/2023); Cardiac catheterization (N/A, 03/02/2023); Gallbladder surgery; and Colostomy. Social History Occupational History Not on file Tobacco Use Smoking status: Never Smokeless tobacco: Never Substance and Sexual Activity Alcohol use: Not Currently Drug use: Never Sexual activity: Not on file Travel History Travel since 03/14/23 No documented travel since 03/14/23 Pets: unknown Hobbies: unknown Family History Family History Problem Relation Name Age of Onset Diabetes type I Mother Other (malignant neoplasm of colon) Mother Other (high serum cholestanol) Mother Other (heart problem) Father Other (CABG) Father Other (cardiovascular disease) Father Allergies Cephalexin, Tobramycin, Meperidine, Erythromycin, and Penicillins Immunization History Administered Date(s) Administered Hepatitis B vaccine, adult (RECOMBIVAX, ENGERIX) 05/07/2009, 06/04/2009, 07/05/2009, 11/04/2009 Influenza, seasonal, injectable 06/20/2015 Pneumococcal polysaccharide vaccine, 23-valent, age 2 years and older (PNEUMOVAX 23) 10/03/2009, 03/15/2012 Medications Home medications: Medications Prior to Admission Medication Sig Dispense Refill Last Dose apixaban (Eliquis) 5 mg tablet Take 1 tablet (5 mg) by mouth every 12 hours. 180 tablet 3 atorvastatin (Lipitor) 40 mg tablet Take 1 tablet (40 mg) by mouth once daily at bedtime. 90 tablet3 azaTHIOprine (Imuran) 50 mg tablet Take 1 tablet (50 mg) by mouth once daily. 30 tablet 2 DILT-XR 180 mg 24 hr capsule Take 1 capsule (180 mg) by mouth once daily. 90 capsule 3 empagliflozin (Jardiance) 10 mg Take 1 tablet (10 mg) by mouth once daily. 30 tablet 0 magnesium oxide (Mag-Ox) 400 mg (241.3 mg magnesium) tablet Take 1 tablet (400 mg) by mouth once daily. pantoprazole (ProtoNix) 20 mg EC tablet Take 1 tablet (20 mg) by mouth twice a day. polyethylene glycol (Glycolax, Miralax) 17 gram packet Take 17 g by mouth once daily. Do not start before January 21, 2023. 30 packet 2 predniSONE (Deltasone) 5 mg tablet Take 1 tablet (5 mg) by mouth once daily in the morning. rOPINIRole (Requip) 1 mg tablet Take 1 tablet (1 mg) by mouth once daily at bedtime. sodium bicarbonate 650 mg tablet Take 1 tablet (650 mg) by mouth 3 times a day. sodium chloride 1,000 mg tablet Take 1 tablet (1 g) by mouth 3 times a day. sulfamethoxazole-trimethoprim (Bactrim) 400-80 mg tablet Take 1 tablet by mouth once daily in the morning. tacrolimus (Prograf) 0.5 mg capsule Take 0.5 mg by mouth 2 times a day. 60 capsule 2 Current medications: Scheduled medications clindamycin, 900 mg, intravenous, q8h dilTIAZem SR, 90 mg, oral, BID heparin (porcine), 5,000 Units, subcutaneous, q8h TREMAINE insulin lispro, 0-5 Units, subcutaneous, q4h meropenem, 1 g, intravenous, q8h pantoprazole, 40 mg, oral, Daily before breakfast polyethylene glycol, 17 g, oral, Daily predniSONE, 5 mg, oral, Daily tacrolimus, 0.5 mg, oral, q12h TREMAINE Continuous medications PRN medications PRN medications: dextrose 10 % in water (D10W), dextrose, glucagon, HYDROmorphone, hydrOXYzine HCL Review of Systems Objective Range of Vitals (last 24 hours) Heart Rate: [74-104] Temp: [36.2 C (97.2 F)-36.5 C (97.7 F)] Resp: [12-26] BP: (97-129)/(39-64) Weight: [79.2 kg (174 lb 9.7 oz)] SpO2: [95 %-100 %] Daily Weight 04/14/23 : 79.2 kg (174 lb 9.7 oz) Body mass index is 23.68 kg/m . Physical Exam Relevant Results Outside Hospital Results No Labs Results from last 72 hours Lab Units 04/14/23 1003 04/14/23 0745 04/14/23 0314 WBC AUTO x10*3/uL 6.7 6.1 7.1 HEMOGLOBIN g/dL 8.2* 7.5* 7.2* HEMATOCRIT % 25.9* 24.1* 23.3* PLATELETS AUTO x10*3/uL 256 243 276 Results from last 72 hours Lab Units 04/14/23 1003 04/13/23 2242 04/13/23 1448 SODIUM mmol/L 133* 132* 130* POTASSIUM mmol/L 4.9 5.1 6.6* CHLORIDE mmol/L 104 105 105 CO2 mmol/L 18* 21 21 BUN mg/dL 14 15 14 CREATININE mg/dL 0.49* 0.59 0.55 GLUCOSE mg/dL 89 123* 118* CALCIUM mg/dL 10.9* 10.4 10.5 ANION GAP mmol/L 16 11 11 EGFR mL/min/1.73m*2 >90 >90 >90 PHOSPHORUS mg/dL 3.5 2.9 -- Results from last 72 hours Lab Units 04/14/23 1003 04/13/23 2242 04/13/23 1448 ALK PHOS U/L -- 54 52 BILIRUBIN TOTAL mg/dL -- 0.5 0.7 BILIRUBIN DIRECT mg/dL -- 0.2 -- PROTEIN TOTAL g/dL -- 5.3* 5.6* ALT U/L -- 12 12 AST U/L -- 12 30 ALBUMIN g/dL 2.7* 2.2* 2.1* Estimated Creatinine Clearance: 125 mL/min (A) (by C-G formula based on SCr of 0.49 mg/dL (L)). No results found for: CRP , SEDRATE No results found for: HIV1X2 , HIVCONF , CTQLHB4PC No results found for: HEPCABINIT , HEPCAB , HCVPCRQUANT Microbiology Susceptibility data from last 90 days. Collected Specimen Info Organism Amoxicillin/Clavulanate Ampicillin Ampicillin/Sulbactam Aztreonam Cefazolin Cefepime Cefotaxime Ceftazidime Ceftriaxone Cefuroxime Ciprofloxacin Ertapenem Gentamicin Levofloxacin 02/25/23 Fluid from Aspirate Escherichia coli S R R R R R R R R R R S S R Collected Specimen Info Organism Meropenem Moxifloxacin Piperacillin/Tazobactam Trimethoprim/Sulfamethoxazole 02/25/23 Fluid from Aspirate Escherichia coli S R S R Temp Readings from Last 5 Encounters: 04/14/23 36.3 C (97.3 F) 04/13/23 36.9 C (98.4 F) (Oral) 03/06/23 37.1 C (98.8 F) 02/24/23 37.2 C (99 F) 01/21/23 37.8 C (100 F) Estimated Creatinine Clearance: 125 mL/min (A) (by C-G formula based on SCr of 0.49 mg/dL (L)). Microbiology 01/11/23 intra abdominal abscess Sterile Fluid Culture/Smear (4+) Abundant Escherichia coli Abnormal (2+) Few Bacteroides ovatus group Abnormal Gram Stain Panic (4+) Abundant Mixed Gram positive and Gram negative bacteria (4+) Abundant Polymorphonuclear leukocytes Resulting Agency: [facility] Susceptibility Escherichia coli Bacteroides ovatus group MICROSCAN GRADIENT DIFFUSION $$ Amikacin Susceptible $ Amoxicillin/Clavulanate Susceptible $$ Ampicillin Resistant Resistant $$$ Ampicillin/Sulbactam Intermediate Susceptible $ Cefazolin Susceptible Ceftriaxone Resistant $ Ciprofloxacin Resistant $ Clindamycin Resistant $ Gentamicin Resistant $$$ Levofloxacin Resistant $$$ Meropenem Susceptible $$ Moxifloxacin Resistant $$ Piperacillin/Tazobactam Susceptible $ Tobramycin Resistant $ Trimethoprim/Sulfamethoxazole Resistant 02/24 blood culture no growth 02/25 urine culture no growth 02/25 gall bladder aspirate Sterile Fluid Culture/Smear (4+) Abundant Escherichia coli Abnormal Extended Spectrum Beta Lactamase (ESBL) producing organism Gram Stain Abnormal (3+) Moderate Polymorphonuclear leukocytes (4+) Abundant Gram negative bacilli Resulting Agency: [facility] Susceptibility Escherichia coli MICROSCAN $ Amoxicillin/Clavulanate Susceptible $$ Ampicillin Resistant $$$ Ampicillin/Sulbactam Resistant $ Aztreonam Resistant $ Cefazolin Resistant $$ Cefepime Resistant Cefotaxime Resistant $$ Ceftazidime Resistant Ceftriaxone Resistant $$ Cefuroxime Resistant $ Ciprofloxacin Resistant $$$$ Ertapenem Susceptible $ Gentamicin Susceptible $$$ Levofloxacin Resistant $$$ Meropenem Susceptible $$ Moxifloxacin Resistant $$ Piperacillin/Tazobactam Susceptible $ Trimethoprim/Sulfamethoxazole Resistant 04/13 scrotal wall abscess . 3+ PMN. 3+ moderate gram negative bacilli from gram stain 04/13 urine culture no growth Antibiotic history Clindamycin 04/13 ~ Daptomycin 04/14 Meropenem 04/13 INFECTIOUS SYNOPSIS AND ASSESSMENT 67yo male s/p renal transplant on immunosuppressant with recent diverticular abscess and cholecystitis with ESBL E.coli presented with dahiana abscess. S/p Incision and Drainage Perineum, Dahiana'sgangrene debridment, Right Orchiectomy . Gram stain from the surgery shows gram negative bacilli . Culture pending . Scrotal wall abscess /dahiana gangrene Hx of ESBL E.coli in gall bladder Diverticular abscess with colostomy Immunocompromised s/p renal transplant RECOMMENDATION CONTINUE current antibiotic with daptomycin/clindamycin/meropenem for now. Will de escalate as we get more information from the culture ID will follow in the morning. The case was discussed with my attending , Dr. Tano Long who agreed with my assessment and plan. NORMAN RODRÍGUEZ M.D / ID consult TEAM B Infectious disease fellow PGY-4 Another ID fellow, Daniel Leonard will take my place from tomorrow Reach him through Me[employer] instead of paging if possible ( especially during noon conference ) Or page Team [id number] Associated attestation - Tano Long MD - 04/14/2023 11:01 PM EST I saw and evaluated the patient. I personally obtained the florez and critical portions of the historyand physical exam or was physically present for florez and critical portions performed by the resident/fellow. I reviewed the resident/fellow's documentation and discussed the patient with the resident/curt fletcher. I agree with the resident/fellow's medical decision making as documented in the note. * Thelma Diaz MD - 04/14/2023 4:29 PM ESTAssociated Order(s): IP CONSULT TO NEPHROLOGY TRANSPLANT REASON FOR CONSULT: Immunosuppressive medication management and nephrology related issues. REQUESTING PHYSICIAN: Peter Stahl MD MPH PRIMARY CARE PHYSICIAN: Aishwarya Lundy MD ADMISSION DIAGNOSIS: 1. Scrotal abscess 2. Scrotal wall abscess 3. Dahiana's gangrene 4. Lower extremity edema 5. Localized swelling of left lower leg TRANSPLANT DATE: N/A BLOOD TYPE: A HPI: Jagruti Esparza is a 67 y.o. male with a PMH of ESRD s/p LUKT 2012, on immunosuppression, pAF/Afib not on AC (on Flecainide/Diltiazem), mild aortic stenosis, diverticulitis s/p sigmpoid colectomy and colostomy, acalculous cholecystitis 02/2023 s/p PCCT now presented as a transfer from [facility] for c/o several days history of worsening scrotal pain/draining scrotal lesions. He also endorsed fatigue, SOB and episode of fever s/p I&D perineum, dahiana's gangrene washout, and R orchiectomy on 04/14. No fever, chills, chest pain, shortness of breath and palpitation. No nausea, vomiting, diarrhea. REVIEW OF SYSTEM: Review of system was done system by system (12/26). Apart from HPI, other symptoms were negative. PAST MEDICAL HISTORY: Past Medical History: Diagnosis Date PONV (postoperative nausea and vomiting) PAST SURGICAL HISTORY: Past Surgical History: Procedure Laterality Date CARDIAC CATHETERIZATION N/A 03/02/2023 Procedure: Left Heart Cath; Surgeon: Leonardo Welch MD; Location: [address] Cardiac Line Installer; Service: Cardiovascular; Laterality: N/A; COLOSTOMY CT GUIDED IMAGING FOR ABSCESS DRAIN 01/11/2023 CT GUIDED IMAGING FOR ABSCESS DRAIN 01/11/2023 Jerome Farrell MD [facility] [place] CT GALLBLADDER SURGERY OTHER SURGICAL HISTORY 12/25/2020 Arteriovenous fistula creation procedure OTHER SURGICAL HISTORY 12/25/2020 Neck surgery OTHER SURGICAL HISTORY 12/25/2020 Kidney transplantation OTHER SURGICAL HISTORY 12/25/2020 Facial surgery OTHER SURGICAL HISTORY 12/25/2020 Vasectomy OTHER SURGICAL HISTORY 07/11/2021 Colonoscopy complete for polypectomy SOCIAL HISTORY: Social History Socioeconomic History Marital status: Spouse name: Not on file Number of children: Not on file Years of education: Not on file Highest education level: Not on file Occupational History Not on file Tobacco Use Smoking status: Never Smokeless tobacco: Never Substance and Sexual Activity Alcohol use: Not Currently Drug use: Never Sexual activity: Not on file Other Topics Concern Not on file Social History Narrative Not on file Social Determinants of Health Financial Resource Strain: Low Risk (02/25/2023) Overall Financial Resource Strain (CARDIA) Difficulty of Paying Living Expenses: Not hard at all Recent Concern: Financial Resource Strain - Medium Risk (01/11/2023) Overall Financial Resource Strain (CARDIA) Difficulty of Paying Living Expenses: Somewhat hard Food Insecurity: Not on file Transportation Needs: No Transportation Needs (02/25/2023) PRAPARE - Transportation Lack of Transportation (Medical): No Lack of Transportation (Non-Medical): No Physical Activity: Not on file Stress: Not on file Social Connections: Not on file Intimate Partner Violence: Not on file Housing Stability: Low Risk (02/25/2023) Housing Stability Vital Sign Unable to Pay for Housing in the Last Year: No Number of Places Lived in the Last Year: 1 Unstable Housing in the Last Year: No FAMILY HISTORY: Family History Problem Relation Name Age of Onset Diabetes type I Mother Other (malignant neoplasm of colon) Mother Other (high serum cholestanol) Mother Other (heart problem) Father Other (CABG) Father Other (cardiovascular disease) Father MEDICATION LIST: clindamycin, 900 mg, q8h dilTIAZem SR, 90 mg, BID heparin (porcine), 5,000 Units, q8h TREMAINE insulin lispro, 0-5 Units, q4h meropenem, 1 g, q8h pantoprazole, 40 mg, Daily before breakfast polyethylene glycol, 17 g, Daily predniSONE, 5 mg, Daily tacrolimus, 0.5 mg, q12h TREMAINE lactated Ringer's, Last Rate: 100 mL/hr (04/14/23 0015) dextrose 10 % in water (D10W), 0.3 g/kg/hr, Once PRN dextrose, 25 g, q15 min PRN glucagon, 1 mg, q15 min PRN HYDROmorphone, 0.2 mg, q3h PRN hydrOXYzine HCL, 10 mg, q4h PRN ALLERGY: Allergies Allergen Reactions Cephalexin Hives, Rash and Headache headache Other reaction(s): Unknown Reaction headache Tobramycin Rash Other Reaction(s): pain rash Pain in groin and rectum area Other Reaction(s): pain rash Pain in groin and rectum area Meperidine Dizziness [place] weird Other reaction(s): Other: See Comments, Unknown Reaction dizziness Erythromycin Rash headache Other reaction(s): Other: See Comments headache Penicillins Hives and Rash At 8 months old, swelling and hives. PHYCISCAL EXAMINATION: Visit Vitals BP (!) 119/48 Pulse 92 Temp 36.5 C (97.7 F) (Temporal) Resp 16 Ht 1.829 m (6') Wt 79.2 kg (174 lb 9.7 oz) SpO2 100% BMI 23.68 kg/m Smoking Status Never BSA 2.01 m 04/12 1900 - 04/14 0659 In: 3563 [I.V.:1575] Out: 690 [Urine:620; Drains:70] General appearance: no distress Eyes: non-icteric HEENT: atraumatic head, PERRLA, moist mucosa Skin: no apparent rash Heart: NSR, S1, S2 normal, no murmur or friction rub Lungs: CTA B/L no wheezing/crackles Abdomen: soft, nt/nd, no allograft tenderness, percutaneous cholecystostomy tube in place, bile in bag. Colostomy pink and viable : Dressing in place over wound. Bowers draining clear yellow urine Extremities: no edema B/L LABS: Results for orders placed or performed during the hospital encounter of 04/13/23 (from the past 24 hour(s)) Extra Urine Perez Tube Result Value Ref Range Extra Tube Hold for add-ons. Blood Gas Mixed Venous Full Panel Unsolicited Result Value Ref Range POCT pH, Mixed 7.37 7.33 - 7.43 pH POCT pCO2, Mixed 38 (L) 41 - 51 mm Hg POCT pO2, Mixed 108 (H) 35 - 45 mm Hg POCT SO2, Mixed 99 (H) 45 - 75 % POCT Oxy Hemoglobin, Mixed 96.3 (H) 45.0 - 75.0 % POCT Hematocrit Calculated, Mixed 22.0 (L) 41.0 - 52.0 % POCT Sodium, Mixed 130 (L) 136 - 145 mmol/L POCT Potassium, Mixed 4.6 3.5 - 5.3 mmol/L POCT Chloride, Mixed 107 98 - 107 mmol/L POCT Ionized Calcium, Mixed 1.77 (H) 1.10 - 1.33 mmol/L POCT Glucose, Mixed 125 (H) 74 - 99 mg/dL POCT Lactate, Mixed 1.5 0.4 - 2.0 mmol/L POCT Base Excess, Mixed -3.0 (L) -2.0 - 3.0 mmol/L POCT HCO3 Calculated, Mixed 22.0 22.0 - 26.0 mmol/L POCT Hemoglobin, Mixed 7.3 (L) 13.5 - 17.5 g/dL POCT Anion Gap, Mixed 6 (L) 10 - 25 mmo/L Patient Temperature 37.0 degrees Celsius Prepare RBC: 2 Units Result Value Ref Range PRODUCT CODE R7557T54 Unit Number [id number] Unit ABO A Unit RH POS XM INTEP COMP Dispense Status XM Blood Expiration Date April 23, 2023 23:59 EST PRODUCT BLOOD TYPE 6200 UNIT VOLUME 350 PRODUCT CODE P4905S79 Unit Number [id number] Unit ABO A Unit RH POS XM INTEP COMP Dispense Status XM Blood Expiration Date April 23, 2023 23:59 EST PRODUCT BLOOD TYPE 6200 UNIT VOLUME 350 Prepare RBC: 2 Units Result Value Ref Range PRODUCT CODE B7805X00 Unit Number [id number] Unit ABO A Unit RH POS XM INTEP COMP Dispense Status XM Blood Expiration Date April 29, 2023 23:59 EST PRODUCT BLOOD TYPE 6200 UNIT VOLUME 350 PRODUCT CODE [id number] Unit Number [id number] Unit ABO A Unit RH POS XM INTEP COMP Dispense Status TR Blood Expiration Date April 23, 2023 23:59 EST PRODUCT BLOOD TYPE 6200 UNIT VOLUME 278 Type and screen Result Value Ref Range ABO TYPE A Rh TYPE POS ANTIBODY SCREEN NEG POCT GLUCOSE Result Value Ref Range POCT Glucose 139 (H) 74 - 99 mg/dL Urinalysis with Reflex Culture and Microscopic Result Value Ref Range Color, Urine Yellow Straw, Yellow Appearance, Urine Hazy (N) Clear Specific [place], Urine 1.029 1.005 - 1.035 pH, Urine 7.0 5.0, 5.5, 6.0, 6.5, 7.0, 7.5, 8.0 Protein, Urine 100 (2+) (N) NEGATIVE mg/dL Glucose, Urine >=500 (3+) (A) NEGATIVE mg/dL Blood, Urine MODERATE (2+) (A) NEGATIVE Ketones, Urine 5 (TRACE) (A) NEGATIVE mg/dL Bilirubin, Urine NEGATIVE NEGATIVE Urobilinogen, Urine <2.0 <2.0 mg/dL Nitrite, Urine NEGATIVE NEGATIVE Leukocyte Esterase, Urine MODERATE (2+) (A) NEGATIVE Microscopic Only, Urine Result Value Ref Range WBC, Urine >50 (A) 1-5, NONE /HPF RBC, Urine >20 (A) NONE, 1-2, 3-5 /HPF Bacteria, Urine 1+ (A) NONE SEEN /HPF CBC Result Value Ref Range WBC 10.0 4.4 - 11.3 x10*3/uL nRBC 0.0 0.0 - 0.0 /100 WBCs RBC 3.04 (L) 4.50 - 5.90 x10*6/uL Hemoglobin 7.2 (L) 13.5 - 17.5 g/dL Hematocrit 23.8 (L) 41.0 - 52.0 % MCV 78 (L) 80 - 100 fL MCH 23.7 (L) 26.0 - 34.0 pg MCHC 30.3 (L) 32.0 - 36.0 g/dL RDW 21.3 (H) 11.5 - 14.5 % Platelets 319 150 - 450 x10*3/uL Magnesium Result Value Ref Range Magnesium 1.69 1.60 - 2.40 mg/dL Hepatic function panel Result Value Ref Range Albumin 2.2 (L) 3.4 - 5.0 g/dL Bilirubin, Total 0.5 0.0 - 1.2 mg/dL Bilirubin, Direct 0.2 0.0 - 0.3 mg/dL Alkaline Phosphatase 54 33 - 136 U/L ALT 12 10 - 52 U/L AST 12 9 - 39 U/L Total Protein 5.3 (L) 6.4 - 8.2 g/dL Phosphorus Result Value Ref Range Phosphorus 2.9 2.5 - 4.9 mg/dL Basic Metabolic Panel Result Value Ref Range Glucose 123 (H) 74 - 99 mg/dL Sodium 132 (L) 136 - 145 mmol/L Potassium 5.1 3.5 - 5.3 mmol/L Chloride 105 98 - 107 mmol/L Bicarbonate 21 21 - 32 mmol/L Anion Gap 11 10 - 20 mmol/L Urea Nitrogen 15 6 - 23 mg/dL Creatinine 0.59 0.50 - 1.30 mg/dL eGFR >90 >60 mL/min/1.73m*2 Calcium 10.4 8.6 - 10.6 mg/dL Coagulation Screen Result Value Ref Range Protime 17.1 (H) 9.8 - 12.8 seconds INR 1.5 (H) 0.9 - 1.1 aPTT 27 27 - 38 seconds Fibrinogen Result Value Ref Range Fibrinogen 423 (H) 200 - 400 mg/dL CALCIUM, IONIZED Result Value Ref Range POCT Calcium, Ionized 1.74 (H) 1.1 - 1.33 mmol/L Creatine Kinase Result Value Ref Range Creatine Kinase 14 0 - 325 U/L Prepare RBC: 1 Units Result Value Ref Range PRODUCT CODE [id number] Unit Number [id number] Unit ABO A Unit RH POS XM INTEP COMP Dispense Status TR Blood Expiration Date April 14, 2023 23:59 EST PRODUCT BLOOD TYPE 6200 UNIT VOLUME 350 POCT GLUCOSE Result Value Ref Range POCT Glucose 137 (H) 74 - 99 mg/dL ECG 12 lead Result Value Ref Range Ventricular Rate 91 BPM Atrial Rate 91 BPM [place] Interval 164 ms QRS Duration 88 ms QT Interval 340 ms QTC Calculation(Bazett) 418 ms P [place] 9 degrees R [place] -14 degrees T [place] 70 degrees QRS Count 15 beats Q Onset 217 ms P Onset 135 ms P Offset 201 ms T Offset 387 ms QTC Fredericia 391 ms Urinalysis with Reflex Microscopic Result Value Ref Range Color, Urine Yellow Straw, Yellow Appearance, Urine Hazy (N) Clear Specific [place], Urine 1.022 1.005 - 1.035 pH, Urine 7.0 5.0, 5.5, 6.0, 6.5, 7.0, 7.5, 8.0 Protein, Urine 30 (1+) (N) NEGATIVE mg/dL Glucose, Urine >=500 (3+) (A) NEGATIVE mg/dL Blood, Urine MODERATE (2+) (A) NEGATIVE Ketones, Urine 5 (TRACE) (A) NEGATIVE mg/dL Bilirubin, Urine NEGATIVE NEGATIVE Urobilinogen, Urine <2.0 <2.0 mg/dL Nitrite, Urine NEGATIVE NEGATIVE Leukocyte Esterase, Urine MODERATE (2+) (A) NEGATIVE Microscopic Only, Urine Result Value Ref Range WBC, Urine 21-50 (A) 1-5, NONE /HPF RBC, Urine >20 (A) NONE, 1-2, 3-5 /HPF CBC Result Value Ref Range WBC 7.1 4.4 - 11.3 x10*3/uL nRBC 0.0 0.0 - 0.0 /100 WBCs RBC 2.94 (L) 4.50 - 5.90 x10*6/uL Hemoglobin 7.2 (L) 13.5 - 17.5 g/dL Hematocrit 23.3 (L) 41.0 - 52.0 % MCV 79 (L) 80 - 100 fL MCH 24.5 (L) 26.0 - 34.0 pg MCHC 30.9 (L) 32.0 - 36.0 g/dL RDW 20.4 (H) 11.5 - 14.5 % Platelets 276 150 - 450 x10*3/uL POCT GLUCOSE Result Value Ref Range POCT Glucose 143 (H) 74 - 99 mg/dL Blood Gas Venous Full Panel Result Value Ref Range POCT pH, Venous 7.34 7.33 - 7.43 pH POCT pCO2, Venous 36 (L) 41 - 51 mm Hg POCT pO2, Venous 72 (H) 35 - 45 mm Hg POCT SO2, Venous 96 (H) 45 - 75 % POCT Oxy Hemoglobin, Venous 93.2 (H) 45.0 - 75.0 % POCT Hematocrit Calculated, Venous 22.0 (L) 41.0 - 52.0 % POCT Sodium, Venous 130 (L) 136 - 145 mmol/L POCT Potassium, Venous 5.9 (H) 3.5 - 5.3 mmol/L POCT Chloride, Venous 106 98 - 107 mmol/L POCT Ionized [place], Venous 1.77 (H) 1.10 - 1.33 mmol/L POCT Glucose, Venous 127 (H) 74 - 99 mg/dL POCT Lactate, Venous 0.5 0.4 - 2.0 mmol/L POCT Base Excess, Venous -5.8 (L) -2.0 - 3.0 mmol/L POCT HCO3 Calculated, Venous 19.4 (L) 22.0 - 26.0 mmol/L POCT Hemoglobin, Venous 7.2 (L) 13.5 - 17.5 g/dL POCT Anion Gap, Venous 11.0 10.0 - 25.0 mmol/L Patient Temperature 37.0 degrees Celsius FiO2 28 % CBC Result Value Ref Range WBC 6.1 4.4 - 11.3 x10*3/uL nRBC 0.0 0.0 - 0.0 /100 WBCs RBC 2.97 (L) 4.50 - 5.90 x10*6/uL Hemoglobin 7.5 (L) 13.5 - 17.5 g/dL Hematocrit 24.1 (L) 41.0 - 52.0 % MCV 81 80 - 100 fL MCH 25.3 (L) 26.0 - 34.0 pg MCHC 31.1 (L) 32.0 - 36.0 g/dL RDW 20.4 (H) 11.5 - 14.5 % Platelets 243 150 - 450 x10*3/uL POCT GLUCOSE Result Value Ref Range POCT Glucose 106 (H) 74 - 99 mg/dL Electrocardiogram, 12-lead PRN ACS symptoms Result Value Ref Range Ventricular Rate 103 BPM Atrial Rate 103 BPM [place] Interval 160 ms QRS Duration 94 ms QT Interval 358 ms QTC Calculation(Bazett) 468 ms P [place] 83 degrees R [place] -39 degrees T [place] 82 degrees QRS Count 17 beats Q Onset 214 ms P Onset 134 ms P Offset 187 ms T Offset 393 ms QTC Fredericia 429 ms CBC Result Value Ref Range WBC 6.7 4.4 - 11.3 x10*3/uL nRBC 0.0 0.0 - 0.0 /100 WBCs RBC 3.13 (L) 4.50 - 5.90 x10*6/uL Hemoglobin 8.2 (L) 13.5 - 17.5 g/dL Hematocrit 25.9 (L) 41.0 - 52.0 % MCV 83 80 - 100 fL MCH 26.2 26.0 - 34.0 pg MCHC 31.7 (L) 32.0 - 36.0 g/dL RDW 20.1 (H) 11.5 - 14.5 % Platelets 256 150 - 450 x10*3/uL Renal Function Panel Result Value Ref Range Glucose 89 74 - 99 mg/dL Sodium 133 (L) 136 - 145 mmol/L Potassium 4.9 3.5 - 5.3 mmol/L Chloride 104 98 - 107 mmol/L Bicarbonate 18 (L) 21 - 32 mmol/L Anion Gap 16 10 - 20 mmol/L Urea Nitrogen 14 6 - 23 mg/dL Creatinine 0.49 (L) 0.50 - 1.30 mg/dL eGFR >90 >60 mL/min/1.73m*2 Calcium 10.9 (H) 8.6 - 10.6 mg/dL Phosphorus 3.5 2.5 - 4.9 mg/dL Albumin 2.7 (L) 3.4 - 5.0 g/dL Magnesium Result Value Ref Range Magnesium 2.13 1.60 - 2.40 mg/dL POCT GLUCOSE Result Value Ref Range POCT Glucose 126 (H) 74 - 99 mg/dL POCT GLUCOSE Result Value Ref Range POCT Glucose 119 (H) 74 - 99 mg/dL Imaging: Electrocardiogram, 12-lead PRN ACS symptoms Result Date: 04/14/2023 Sinus tachycardia Left axis deviation Anterolateral infarct , age undetermined Abnormal ECG When compared with ECG of 14-APR-2023 00:23, Anterior infarct is now Present Anterolateral infarct is now Present T wave inversion now evident in Anterior leads XR chest 1 view Result Date: 04/14/2023 Interpreted By: Sekou Wilson and Liller Gregory STUDY: XR CHEST 1 VIEW; 04/14/2023 7:01 am INDICATION: Signs/Symptoms:ICU daily. COMPARISON: 04/13/2023 ACCESSION NUMBER(S): [id number] ORDERING CLINICIAN: JYOTSNA MCCOY FINDINGS: AP radiograph of the chest was provided. Left internal jugular central venous catheter tip projects over the expected location of the mid to distal SVC. CARDIOMEDIASTINAL SILHOUETTE: Cardiomediastinal silhouette is enlarged but stable in size and configuration. Aortic arch calcifications are seen. LUNGS: Interval worsening aeration of the right lung base when compared to prior radiograph with streaky opacities partially silhouetting the right hemidiaphragm. There is blunting of the left costophrenic angle, similar prior. Pneumothorax. ABDOMEN: No remarkable upper abdominal findings. BONES: No osseous injury. 1. Persistent small left pleural effusion with associated adjacent atelectasis/consolidation. Correlate with worsening left basilar atelectasis/volume loss. 2. Worsening aeration of the right lung base with streaky opacities which may represent atelectasis versus infectious infiltrate. I personallyreviewed the images/study and I agree with the findings as stated above by resident physician, Dr. Maximo Hoffmann. The study was interpreted at [facility] in [facility]. MACRO: none. Signed by: Sekou Wilson 04/14/2023 10:00 AM Dictation workstation: [id number] ECG 12 lead Result Date: 04/14/2023 Normal sinus rhythm Normal ECG When compared with ECG of 24-FEB-2023 23:07, Previous ECG has undetermined rhythm, needs review XR chest 1 view Result Date: 04/13/2023 Interpreted By: Bharath Ramirez, STUDY: XR CHEST 1 VIEW; 04/13/2023 5:16 pm INDICATION: Signs/Symptoms:Left IJ Central line placement. COMPARISON: 02/25/2023 ACCESSION NUMBER(S): [id number] ORDERING CLINICIAN: TANO PEREZ FINDINGS: Left IJ central venous line with its tip over the right atrium. Ap pearance is similar to the prior. No evidence of a pneumothorax. CARDIOMEDIASTINAL SILHOUETTE: Cardiomediastinal silhouette is normal in size and configuration. LUNGS: Increased perihilar lung markings with extends to the bibasilar regions. There is dense airspace disease at the left lung base with silhouetting of the hemidiaphragm. There is a small left pleural effusion. ABDOMEN: No remarkable upper abdominal findings. BONES: No acute osseous changes. 1. Left IJ central venous line with its tip over the right atrium. 2. Dense left basilar airspace disease with small left effusion. Underlying pneumonia and atelectasis in the differential. 3. Mild interstitial edema noted MACRO: None Signed by: Bharath Ramirez 04/13/2023 5:18 PM Dictation workstation: [id number] ASSESSMENT AND PLAN: Jagruti Esparza is a 67 y.o. male with a PMH of ESRD s/p LUKT 2012, on immunosuppression, pAF/Afib not on AC (on Flecainide/Diltiazem), mild aortic stenosis, diverticulitis s/p sigmpoid colectomy and colostomy, acalculous cholecystitis 02/2023 s/p PCCT now presented as a transfer from [facility] for c/o several days history of worsening scrotal pain/draining scrotal lesions. He also endorsed fatigue, SOB and episode of fever s/p I&D perineum, dahiana's gangrene washout, and R orchiectomy on 04/14. Transplant nephrology is consulted to assist with immunosuppressive medication management, and nephrology related issues. Principal Problem: Scrotal abscess Active Problems: ESRD (end stage renal disease) ([facility]) Scrotal wall abscess Dahiana's gangrene #ESRD S/P LUKT 2012. - Renal allograft function: - Cr 0.6 with baseline cr ~0.6-0.8 - UOP 620ml/12 hrs - Continue to monitor UOP and Serum creatinine closely. - Avoid nephrotoxic agents, NSAIDs and IV contrast - Strict I/O. - Renally dose all medications by the most recent CrCl #Immunosuppression - continue current immunosuppression tacrolimus 0.5mg BID, prednisone 5mg OD, azathioprine with held 2/2 underlying infection - Monitor tacrolimus trough level closely as patient is on diltiazem which interacts with fk. - Goal tacrolimus trough level is 4-6 #Anemia and WBC - Hb 8 - Continue to monitor Hgb #Electrolyte - Reviewed renal profile. - mild hyponatremia - hypercalcemia #Acid-Base - Bicarb 18-consider adding sodium bicarb 650 BID. #Hypertension - BP had been around 120/50 - Goal BP < 140/90 mmHg #Scrotal dahiana's gangrene - s/p I&D perineum, dahiana's gangrene washout, and R orchiectomy on 04/14 - started on inj Clindamycin #pain Mx, Wound Mx and DVT prophylaxis as per primary team Chloe De Souza MD Nephrology Fellow Available via [employer] [facility] pager #[phone] * Mayela Avila MD - 04/14/2023 1:31 PM ESTAssociated Order(s): IP CONSULT TO ACUTE CARE SURGERY [facility] ACUTE CARE SURGERY - HISTORY AND PHYSICAL / CONSULT Patient Name: Jagruti Esparza Admit Date: [id number] : 1955 AGE: 67 y.o. GENDER: male TODAY'S ASSESSMENT AND PLAN OF CARE: This is a 67 y/o M with a PMH of HTN, CAD, HFpEF (50-55%), paroxysmal Afib/flutter, ESRD s/p kidneytxp (2012), hiatal hernia, GERD, complicated diverticulitis with pericolonic abscess s/p lap sigmoid resection with end colostomy, and acalculous cholecystitis s/p percutaneous cholecystostomy tube pl acement on 02/25/23 who is admitted for management of Dahiana's gangrene. ACS consulted to evaluate status of percutaneous cholecystostomy tube. Patient initially presented in February 2023 with RUQ pain consistent with cholecystitis but was also found to have troponinemia >6000. For this reason, cholecystitis was managed nonoperatively with percutaneous cholecystostomy tube. Since then, patient's RUQ pain has subsided but he does still endorse discomfort around the tube. He has been admitted since yesterday with Dahiana's gangrene, now POD1 s/p I&D of perineum, washout, and R orchiectomy. Recommendations: - IR guided cholangiogram while inpatient - Will follow up results of above - Rest of care per primary team Discussed with attending, Dr. Elliott. Mayela Avila MD PGY-2 General Surgery ACS [id number] CHIEF COMPLAINT/REASON FOR CONSULT: Management of percutaneous cholecystostomy tube placed in February 2023 PAST MEDICAL HISTORY: PMH: Past Medical History: Diagnosis Date PONV (postoperative nausea and vomiting) PSH: Past Surgical History: Procedure Laterality Date CARDIAC CATHETERIZATION N/A 03/02/2023 Procedure: Left Heart Cath; Surgeon: Leonardo Welch MD; Location: [address] Cardiac Line Installer; Service: Cardiovascular; Laterality: N/A; COLOSTOMY CT GUIDED IMAGING FOR ABSCESS DRAIN 01/11/2023 CT GUIDED IMAGING FOR ABSCESS DRAIN 01/11/2023 Jerome Farrell MD [facility] [place] CT GALLBLADDER SURGERY OTHER SURGICAL HISTORY 12/25/2020 Arteriovenous fistula creation procedure OTHER SURGICAL HISTORY 12/25/2020 Neck surgery OTHER SURGICAL HISTORY 12/25/2020 Kidney transplantation OTHER SURGICAL HISTORY 12/25/2020 Facial surgery OTHER SURGICAL HISTORY 12/25/2020 Vasectomy OTHER SURGICAL HISTORY 07/11/2021 Colonoscopy complete for polypectomy FH: Family History Problem Relation Name Age of Onset Diabetes type I Mother Other (malignant neoplasm of colon) Mother Other (high serum cholestanol) Mother Other (heart problem) Father Other (CABG) Father Other (cardiovascular disease) Father SOCIAL HISTORY: Smoking: Social History Tobacco Use Smoking Status Never Smokeless Tobacco Never Alcohol: Social History Substance and Sexual Activity Alcohol Use Not Currently Drug use: Denies MEDICATIONS: Prior to Admission medications Medication Sig Start Date End Date Taking? Authorizing Provider apixaban (Eliquis) 5 mg tablet Take 1 tablet (5 mg) by mouth every 12 hours. 03/26/23 03/25/24 Hernandez Hankins MD atorvastatin (Lipitor) 40 mg tablet Take 1 tablet (40 mg) by mouth once daily at bedtime. 03/26/23 03/25/24 Hernandez Hankins MD azaTHIOprine (Imuran) 50 mg tablet Take 1 tablet (50 mg) by mouth once daily. 03/04/23 06/02/23 Ludy Chanlder MD DILT-XR 180 mg 24 hr capsule Take 1 capsule (180 mg) by mouth once daily. 03/26/23 03/25/24 Hernandez Slade MD empagliflozin (Jardiance) 10 mg Take 1 tablet (10 mg) by mouth once daily. 03/05/23 04/04/23 MD Luisito magnesium oxide (Mag-Ox) 400 mg (241.3 mg magnesium) tablet Take 1 tablet (400 mg) by mouth once daily. 11/17/22 Historical Provider, pantoprazole (ProtoNix) 20 mg EC tablet Take 1 tablet (20 mg) by mouth twice a day. 07/20/22 Historical Provider, polyethylene glycol (Glycolax, Miralax) 17 gram packet Take 17 g by mouth once daily. Do not start before January 21, 2023. 01/21/23 Mery Jones MD predniSONE (Deltasone) 5 mg tablet Take 1 tablet (5 mg) by mouth once daily in the morning. Historical Provider, rOPINIRole (Requip) 1 mg tablet Take 1 tablet (1 mg) by mouth once daily at bedtime. 06/13/13 Historical Provider, sodium bicarbonate 650 mg tablet Take 1 tablet (650 mg) by mouth 3 times a day. Historical Provider, sodium chloride 1,000 mg tablet Take 1 tablet (1 g) by mouth 3 times a day. Historical Provider, sulfamethoxazole-trimethoprim (Bactrim) 400-80 mg tablet Take 1 tablet by mouth once daily in the morning. Historical Provider, tacrolimus (Prograf) 0.5 mg capsule Take 0.5 mg by mouth 2 times a day. 01/20/23 Mery Jones MD ALLERGIES: Allergies Allergen Reactions Cephalexin Hives, Rash and Headache headache Other reaction(s): Unknown Reaction headache Tobramycin Rash Other Reaction(s): pain rash Pain in groin and rectum area Other Reaction(s): pain rash Pain in groin and rectum area Meperidine Dizziness [place] weird Other reaction(s): Other: See Comments, Unknown Reaction dizziness Erythromycin Rash headache Other reaction(s): Other: See Comments headache Penicillins Hives and Rash At 8 months old, swelling and hives. REVIEW OF SYSTEMS: All systems reviewed and otherwise negative. PHYSICAL EXAM: General: NAD, resting comfortably HEENT: NCAT Resp: Nonlabored breathing on NC CV: RRR Abd: Soft, NTND with percutaneous cholecystostomy tube in place, bile in bag. Colostomy pink and viable : Dressing in place over wound. Bowers draining clear yellow urine MSK: Moves all extremities Psych: Appropriate mood and behavior IMAGING SUMMARY: CT A/P 02/25: 1. Gallbladder wall thickening with pericholecystic fluid. Possible biliary sludge. Findings are concerning for cholecystitis. Consider right upper quadrant ultrasound. 2. Postsurgical changes of left lower quadrant end colostomy. Hazy fat stranding surrounding the descending and sigmoid colon may represent postsurgical changes, colitis, or mild diverticulitis. Correlate clinically. 3. Similar appearance compared to prior of a 2 cm right middle lobe density with adjacent satellitenodules/tree-in-bud opacities. Findings may be infectious or malignant. PET-CT or three-month follow-up chest CT is recommended for further evaluation. 4. Ectatic main pulmonary artery measuring 3.6 cm in diameter which can be seen in pulmonary hypertension. Correlate clinically. 5. Status post renal transplant in the right iliac fossa. 6. Contrast within the subcutaneous soft tissues anterior to the left shoulder, likely secondary tocontrast extravasation. Please correlate with neurovascular examination. 7. The right lateral abdominal wall is not completely included in the field of view. 8. Additional chronic findings as above. LABS: Results from last 7 days Lab Units 04/14/23 1003 04/14/23 0745 04/14/23 0314 WBC AUTO x10*3/uL 6.7 6.1 7.1 HEMOGLOBIN g/dL 8.2* 7.5* 7.2* HEMATOCRIT % 25.9* 24.1* 23.3* PLATELETS AUTO x10*3/uL 256 243 276 Results from last 7 days Lab Units 04/13/232241 APTT seconds 27 INR 1.5* Results from last 7 days Lab Units 04/14/23 1003 04/13/232 04/13/23 1448 SODIUM mmol/L 133* 132* 130* POTASSIUM mmol/L 4.9 5.1 6.6* CHLORIDE mmol/L 104 105 105 CO2 mmol/L 18* 21 21 BUN mg/dL 14 15 14 CREATININE mg/dL 0.49* 0.59 0.55 CALCIUM mg/dL 10.9* 10.4 10.5 PROTEIN TOTAL g/dL -- 5.3* 5.6* BILIRUBIN TOTAL mg/dL -- 0.5 0.7 ALK PHOS U/L -- 54 52 ALT U/L -- 12 12 AST U/L -- 12 30 GLUCOSE mg/dL 89 123* 118* Results from last 7 days Lab Units 04/13/23224104/13/23 1448 BILIRUBIN TOTAL mg/dL 0.5 0.7 BILIRUBIN DIRECT mg/dL 0.2 -- I have reviewed all laboratory and imaging results ordered/pertinent for this encounter. Associated attestation - Paul Elliott MD - 04/14/2023 2:31 PM EST Seen and examined with the team. Agree. Suggest getting the cholangiogram when convenient and stable and we can then consider about whetherand when to perform subsequent choleycstectomy depending on results and his overall medical status. * Barney Gonzalez MD - 04/13/2023 10:07 PM ESTAssociated Order(s): IP CONSULT TO MEDICINE Reason For Consult Management of Transplant Medications History Of Present Illness Jagruti Esparza is a 67 y.o. male presenting with groin swelling, pain, discharge as well as fevers.Imaging Concernig for necrotizing soft tissue infection in the groin now POD 0 s/p I and D and washout of affected area. Apixaban reversed preoperatively. Patient briefly on pressors afsaneh-op but now weaned off. Other PMH notable for: ESRD s/p 2013 renal transplant with functional graft (on tacro, prednisone, azathioprine), afib (on diltiazem and apixaban), HFpEF (on empagliflozin), and CAD (on ASA and atorvastatin). Pt recently admitted for acalculous cholycystitis s/p p cholecystostomy (ccy deferred as patient was having an NSTEMI at the time), and also a recent diverticulitis with associated abscess s/p IR drainage and sigmoid rxn w end colostomy Less notable PMH/PSH: Mild aortic stenosis, GERD, WILLIAN, RLS on ropinirole. Social History He reports that he has never smoked. He has never used smokeless tobacco. He reports that he does not currently use alcohol. He reports that he does not use drugs. Family History Family History Problem Relation Name Age of Onset Diabetes type I Mother Other (malignant neoplasm of colon) Mother Other (high serum cholestanol) Mother Other (heart problem) Father Other (CABG) Father Other (cardiovascular disease) Father Allergies Cephalexin, Tobramycin, Meperidine, Erythromycin, and Penicillins Review of Systems Reviewed and negative except per HPI Physical Exam General: Laying in bed, comfortable Eyes: EOMI ENMT: no apparent injury, no lesions seen, MMM Head/neck: NCAT Cardiac: regular rate in chart Pulm: Mildly increased effort on NC GI: soft, NT/ND, no masses palpated, end colostomy with stool output : surgical dressing in place. CDI. Last Recorded Vitals Blood pressure (!) 136/112, pulse 97, resp. rate 15, height 1.829 m (6'), weight 79.4 kg (175 lb), SpO2 100 %. Relevant Results Most recent labs: Results from last 7 days Lab Units 04/13/23 1448 CO2 mmol/L 21 ANION GAP mmol/L 11 BUN mg/dL 14 CREATININE mg/dL 0.55 GLUCOSE mg/dL 118* CALCIUM mg/dL 10.5 Results from last 7 days Lab Units 04/13/23 1448 ALT U/L 12 AST U/L 30 ALK PHOS U/L 52 All images: XR chest 1 view Result Date: 04/13/2023 Interpreted By: Bharath Ramirez, STUDY: XR CHEST 1 VIEW; 04/13/2023 5:16 pm INDICATION: Signs/Symptoms:Left IJ Central line placement. COMPARISON: 02/25/2023 ACCESSION NUMBER(S): [id number] ORDERING CLINICIAN: TANO PEREZ FINDINGS: Left IJ central venous line with its tip over the right atrium. Ap pearance is similar to the prior. No evidence of a pneumothorax. CARDIOMEDIASTINAL SILHOUETTE: Cardiomediastinal silhouette is normal in size and configuration. LUNGS: Increased perihilar lung markings with extends to the bibasilar regions. There is dense airspace disease at the left lung base with silhouetting of the hemidiaphragm. There is a small left pleural effusion. ABDOMEN: No remarkable upper abdominal findings. BONES: No acute osseous changes. 1. Left IJ central venous line with its tip over the right atrium. 2. Dense left basilar airspace disease with small left effusion. Underlying pneumonia and atelectasis in the differential. 3. Mild interstitial edema noted MACRO: None Signed by: Bharath Ramirez 04/13/2023 5:18 PM Dictation workstation: [id number] Assessment/Plan 67 y.o. male presenting with groin swelling, pain, discharge as well as fevers. Imaging Concernig for necrotizing soft tissue infection in the groin now POD 0 s/p I and D and washout of affected area. #ESRD s/p Renal transplant -graft with adequate function -Cont tacrolimus 0.5 mg capsule; Take 0.5 mg by mouth 2 times a day, 6:30 AM 6:30 PM -Daily tacrolimus levels at 6:00 AM -Cont prednisone 5 mg -Hold azathioprine -f/up IgG quantitative and CMV PCR quantitative blood tests -avoid IV contrast, nephrotoxic agents, hypotension -Transfusion goal Hgb 9 -DVT ppx w SQH 5000 TID until Eliquis is resumed. #necrotizing soft tissue infeciton -Cont meropenem -Cont Clindamycin -Daptomycin for MRSA coverage. 400 mg once daily. Will obtain CPK level prior to first dose. 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 Barney Gonzalez MD DACR/NACR/Medicine Consults/Medicine FLEX Team documented in this [facility] Work Phone: [phone] Hospital Discharge instructions* Discharge Instructions* Vesta Andrews MA - 04/19/2023 10:00 AM EST POST-OPERATIVE INSTRUCTIONS DEBRIDEMENT OF SCROTAL WOUND Pain Control and other Medications: Tylenol (acetaminophen) can be taken for pain up to every 6 hours. You may have been prescribed a narcotic such as tramadol for pain. This can cause constipation, drowsiness, fatigue, and confusion. Take a stool softener such as Colace to avoid constipation. You may use an ice pack (or bag of frozen veggies) over your underwear to the surgical area to decrease swelling and pain. STOP taking the Jardiance for now. Please schedule a visit with your flying shear operator to decide if you need to start a different medication for your heart. Diet: There are no dietary restrictions after surgery but some nausea on the day of surgery is normal. Try liquids and light meals the first day. Make sure to drink plenty of fluids to keep hydrated. Infection: You will be taking an IV antibiotic, ertapenem, once a day. You will also have an antifungal pill, fluconazole, that is taken once a day. The ertapenem should be given for [address] Junior (infectious disease) will determine if you need to refill this for another 2 weeks. Wound Care: Change the scrotal wound dressing daily: Remove the old packing Moisten the Kerlix (long roll) with some normal saline and wring it out so it is damp Gently pack the wound with the Kerlix, using gentle pressure to fill in all the empty space Cut the end of the Kerlix, leaving some outside the wound for easy identification Place ABD or large gauze along the sides of the groin to prevent moisture Place a rolled up towel underneath the scrotum to help elevate the scrotum May shower next day after surgery. No baths, pools, hot tubs etc. While the wound is open. Do not put any lotions/creams/ointments etc. over the incision. When to Call the Surgeon: Fever higher than 100?F. Repeated vomiting. Pain not controlled with medication. Active bleeding or excessive drainage from incision(s) -- some drainage staining gauze in the underwear is expected. Call [phone] if you have questions. After 5 PM or on weekends and holidays, call the hospital turning sander operator at [phone] and ask for the [id number]. In case of emergency, call [phone]. Follow-Up: Please call to schedule to reschedule if the below appointment does not work. If youare waiting for pathology results, you will receive them at this appointment. 04/28/23 at 11:30 AM at [facility] with Dr. Gerson Bryan (Urology) You will have a telephone visit with Dr. Jimenez Junior (Infectious Disease) in 2- 3 weeks to determine how long your antibiotics should be taken for. Please get labwork done weekly while you are taking the antibiotics, and fax results to [phone]. These labs need to also be sent over to your Transplant team at [facility] - please reach out to their office to ask how they would like the results sent over to them. Please schedule an appointment with Cardiology within 1 month regarding your heart medicine. documented in this [facility] Work Phone: [phone] History and physical note* Jyotsna Mccoy MD - 04/13/2023 11:07 PM EST SICU History & Physical Subjective HPI: Jagruti Esparza is a 67 y.o. male presenting with groin swelling, pain, discharge as well as fevers.Imaging concerning for necrotizing soft tissue infection in the groin now POD 0 s/p I and D, washout of affected area, and R orchiectomy. Apixaban reversed preoperatively. Patient briefly on pressorsintra-op but now weaned off. Other PMH notable for: ESRD s/p 2012 renal transplant with functional graft (on tacro, prednisone, azathioprine), afib, HFpEF (TTE 03/06: EF 50-55%, mild to mod dilated RA, mild elevated RVSP, mild aortic stenosis), CAD, mild aortic stenosis, GERD, WILLIAN, and RLS. Pt recently admitted 03/06 for acalculous cholycystitis s/p cholecystostomy (ccy deferred as patient was having an NSTEMI at the time), and also a recent diverticulitis with associated abscess s/p IRdrainage and sigmoid rxn w end colostomy (4 months ago). Pt admitted to the SICU postoperatively to monitor hemodynamics. OR Course: EBL: 100 UOP: 37 Crystalloid: 1L Colloid: 0 Cellsaver: 0 Products: 0 Lines/Access: LIJ triple lumen Past Medical History: Diagnosis Date PONV (postoperative nausea and vomiting) Past Surgical History: Procedure Laterality Date CARDIAC CATHETERIZATION N/A 03/02/2023 Procedure: Left Heart Cath; Surgeon: Leonardo Welch MD; Location: [address] Cardiac Line Installer; Service: Cardiovascular; Laterality: N/A; COLOSTOMY CT GUIDED IMAGING FOR ABSCESS DRAIN 01/11/2023 CT GUIDED IMAGING FOR ABSCESS DRAIN 01/11/2023 Jerome Farrell MD [facility] [place] CT GALLBLADDER SURGERY OTHER SURGICAL HISTORY 12/25/2020 Arteriovenous fistula creation procedure OTHER SURGICAL HISTORY 12/25/2020 Neck surgery OTHER SURGICAL HISTORY 12/25/2020 Kidney transplantation OTHER SURGICAL HISTORY 12/25/2020 Facial surgery OTHER SURGICAL HISTORY 12/25/2020 Vasectomy OTHER SURGICAL HISTORY 07/11/2021 Colonoscopy complete for polypectomy Medications Prior to Admission Medication Sig Dispense Refill Last Dose apixaban (Eliquis) 5 mg tablet Take 1 tablet (5 mg) by mouth every 12 hours. 180 tablet 3 atorvastatin (Lipitor) 40 mg tablet Take 1 tablet (40 mg) by mouth once daily at bedtime. 90 tablet3 azaTHIOprine (Imuran) 50 mg tablet Take 1 tablet (50 mg) by mouth once daily. 30 tablet 2 DILT-XR 180 mg 24 hr capsule Take 1 capsule (180 mg) by mouth once daily. 90 capsule 3 empagliflozin (Jardiance) 10 mg Take 1 tablet (10 mg) by mouth once daily. 30 tablet 0 magnesium oxide (Mag-Ox) 400 mg (241.3 mg magnesium) tablet Take 1 tablet (400 mg) by mouth once daily. pantoprazole (ProtoNix) 20 mg EC tablet Take 1 tablet (20 mg) by mouth twice a day. polyethylene glycol (Glycolax, Miralax) 17 gram packet Take 17 g by mouth once daily. Do not start before January 21, 2023. 30 packet 2 predniSONE (Deltasone) 5 mg tablet Take 1 tablet (5 mg) by mouth once daily in the morning. rOPINIRole (Requip) 1 mg tablet Take 1 tablet (1 mg) by mouth once daily at bedtime. sodium bicarbonate 650 mg tablet Take 1 tablet (650 mg) by mouth 3 times a day. sodium chloride 1,000 mg tablet Take 1 tablet (1 g) by mouth 3 times a day. sulfamethoxazole-trimethoprim (Bactrim) 400-80 mg tablet Take 1 tablet by mouth once daily in the morning. tacrolimus (Prograf) 0.5 mg capsule Take 0.5 mg by mouth 2 times a day. 60 capsule 2 Cephalexin, Tobramycin, Meperidine, Erythromycin, and Penicillins Social History Tobacco Use Smoking status: Never Smokeless tobacco: Never Substance Use Topics Alcohol use: Not Currently Drug use: Never Family History Problem Relation Name Age of Onset Diabetes type I Mother Other (malignant neoplasm of colon) Mother Other (high serum cholestanol) Mother Other (heart problem) Father Other (CABG) Father Other (cardiovascular disease) Father Review of Systems: Review of Systems Constitutional: Positive for fatigue. HENT: Negative. Respiratory: Negative. Cardiovascular: Negative. Endocrine: Negative. Genitourinary: Surgical site pain Musculoskeletal: Negative. Skin: Pressure ulcer pain on lower back and buttocks Allergic/Immunologic: Negative. Neurological: Negative. Hematological: Negative. Psychiatric/Behavioral: The patient is nervous/anxious. Scheduled Medications: clindamycin, 900 mg, intravenous, q8h daptomycin, 5 mg/kg, intravenous, q24h TREMAINE insulin lispro, 0-5 Units, subcutaneous, q4h magnesium sulfate, 2 g, intravenous, Once meropenem, 1 g, intravenous, q8h predniSONE, 5 mg, oral, Daily tacrolimus, 0.5 mg, oral, q12h TREMAINE Continuous Medications: lactated Ringer's, 100 mL/hr, Last Rate: 100 mL/hr (04/14/23 0015) PRN Medications: PRN medications: dextrose 10 % in water (D10W), dextrose, glucagon, HYDROmorphone, hydrOXYzine HCL Objective Vitals: Most Recent: Vitals: 04/14/23 0000 BP: (!) 108/49 Pulse: 90 Resp: 24 Temp: 36.3 C (97.3 F) SpO2: 100% 24hr Min/Max: Temp Min: 36.2 C (97.2 F) Max: 36.9 C (98.4 F) Pulse Min: 80 Max: 97 BP Min: 94/40 Max: 137/91 Resp Min: 7 Max: 34 SpO2 Min: 93 % Max: 100 % I/O: No intake/output data recorded. Hemodynamic parameters for last 24 hours: Vent settings: FiO2 (%): [28 %] 28 % LDA: CVC 04/13/23 Triple lumen Internal jugular (Active) Placement Date/Time: 04/13/23 1600 Site Prep: Chlorhexidine ;Usual sterile procedure followed Site Prep Agent has Completely Dried Before Insertion: Yes Lumen Type: Triple lumen Location: Internal jugular Number of days: 0 Urethral Catheter Non-latex 16 Fr. (Active) Placement Date/Time: 04/13/23 1840 Placed by: IRA MENDOZA) Hand Hygiene Completed: Yes Catheter Type: Non-latex Tube Size (Fr.): 16 Fr. Catheter Balloon Size: 10 mL Urine Returned: Yes Number of days: 0 Closed/Suction Drain Lateral RUQ 8 Fr. (Active) Placement Date/Time: 02/25/23 0515 Placed by: Dr. Man Hand Hygiene Completed: Yes Tube Number:1 Orientation: Lateral Location: RUQ Drain Tube Type: (c) Size (Fr.): 8 Fr. Number of days: 47 Colostomy Other LLQ (Active) Placement Date/Time: 01/15/23 1124 Placed by: MD Pedro Hand Hygiene Completed: Yes Colostomy Type: (c) Other Location: LLQ Stoma Size (cm): 4.5 cm Number of days: 88 Physical Exam: Physical Exam Constitutional: Appearance: He is ill-appearing. HENT: Head: Normocephalic and atraumatic. Cardiovascular: Rate and Rhythm: Normal rate and regular rhythm. Pulses: Normal pulses. Pulmonary: Effort: Pulmonary effort is normal. Breath sounds: Normal breath sounds. Abdominal: Palpations: Abdomen is soft. Comments: Cholecystotomy drain in place, colostomy in place Genitourinary: Comments: Surgical site packed, mesh panties, with minimal strikethrough. Otherwise C/D/I. Musculoskeletal: General: Normal range of motion. Cervical back: Normal range of motion. Neurological: General: No focal deficit present. Mental Status: He is alert. Lab/Radiology/Diagnostic Review: Results for orders placed or performed during the hospital encounter of 04/13/23 (from the past 24 hour(s)) Comprehensive metabolic panel Result Value Ref Range Glucose 118 (H) 74 - 99 mg/dL Sodium 130 (L) 136 - 145 mmol/L Potassium 6.6 (HH) 3.5 - 5.3 mmol/L Chloride 105 98 - 107 mmol/L Bicarbonate 21 21 - 32 mmol/L Anion Gap 11 10 - 20 mmol/L Urea Nitrogen 14 6 - 23 mg/dL Creatinine 0.55 0.50 - 1.30 mg/dL eGFR >90 >60 mL/min/1.73m*2 Calcium 10.5 8.6 - 10.6 mg/dL Albumin 2.1 (L) 3.4 - 5.0 g/dL Alkaline Phosphatase 52 33 - 136 U/L Total Protein 5.6 (L) 6.4 - 8.2 g/dL AST 30 9 - 39 U/L Bilirubin, Total 0.7 0.0 - 1.2 mg/dL ALT 12 10 - 52 U/L Blood Gas Mixed Venous Full Panel Unsolicited Result Value Ref Range POCT pH, Mixed 7.37 7.33 - 7.43 pH POCT pCO2, Mixed 38 (L) 41 - 51 mm Hg POCT pO2, Mixed 108 (H) 35 - 45 mm Hg POCT SO2, Mixed 99 (H) 45 - 75 % POCT Oxy Hemoglobin, Mixed 96.3 (H) 45.0 - 75.0 % POCT Hematocrit Calculated, Mixed 22.0 (L) 41.0 - 52.0 % POCT Sodium, Mixed 130 (L) 136 - 145 mmol/L POCT Potassium, Mixed 4.6 3.5 - 5.3 mmol/L POCT Chloride, Mixed 107 98 - 107 mmol/L POCT Ionized Calcium, Mixed 1.77 (H) 1.10 - 1.33 mmol/L POCT Glucose, Mixed 125 (H) 74 - 99 mg/dL POCT Lactate, Mixed 1.5 0.4 - 2.0 mmol/L POCT Base Excess, Mixed -3.0 (L) -2.0 - 3.0 mmol/L POCT HCO3 Calculated, Mixed 22.0 22.0 - 26.0 mmol/L POCT Hemoglobin, Mixed 7.3 (L) 13.5 - 17.5 g/dL POCT Anion Gap, Mixed 6 (L) 10 - 25 mmo/L Patient Temperature 37.0 degrees Celsius Prepare RBC: 2 Units Result Value Ref Range PRODUCT CODE P0717Q16 Unit Number [id number] Unit ABO A Unit RH POS XM INTEP COMP Dispense Status XM Blood Expiration Date April 23, 2023 23:59 EST PRODUCT BLOOD TYPE 6200 UNIT VOLUME 350 PRODUCT CODE G3522G01 Unit Number [id number] Unit ABO A Unit RH POS XM INTEP COMP Dispense Status XM Blood Expiration Date April 23, 2023 23:59 EST PRODUCT BLOOD TYPE 6200 UNIT VOLUME 350 Prepare RBC: 2 Units Result Value Ref Range PRODUCT CODE X9310V51 Unit Number [id number] Unit ABO A Unit RH POS XM INTEP COMP Dispense Status XM Blood Expiration Date April 29, 2023 23:59 EST PRODUCT BLOOD TYPE 6200 UNIT VOLUME 350 PRODUCT CODE [id number] Unit Number [id number] Unit ABO A Unit RH POS XM INTEP COMP Dispense Status IS Blood Expiration Date April 23, 2023 23:59 EST PRODUCT BLOOD TYPE 6200 UNIT VOLUME 278 Type and screen Result Value Ref Range ABO TYPE A Rh TYPE POS ANTIBODY SCREEN NEG POCT GLUCOSE Result Value Ref Range POCT Glucose 139 (H) 74 - 99 mg/dL Urinalysis with Reflex Culture and Microscopic Result Value Ref Range Color, Urine Yellow Straw, Yellow Appearance, Urine Hazy (N) Clear Specific [place], Urine 1.029 1.005 - 1.035 pH, Urine 7.0 5.0, 5.5, 6.0, 6.5, 7.0, 7.5, 8.0 Protein, Urine 100 (2+) (N) NEGATIVE mg/dL Glucose, Urine >=500 (3+) (A) NEGATIVE mg/dL Blood, Urine MODERATE (2+) (A) NEGATIVE Ketones, Urine 5 (TRACE) (A) NEGATIVE mg/dL Bilirubin, Urine NEGATIVE NEGATIVE Urobilinogen, Urine <2.0 <2.0 mg/dL Nitrite, Urine NEGATIVE NEGATIVE Leukocyte Esterase, Urine MODERATE (2+) (A) NEGATIVE Microscopic Only, Urine Result Value Ref Range WBC, Urine >50 (A) 1-5, NONE /HPF RBC, Urine >20 (A) NONE, 1-2, 3-5 /HPF Bacteria, Urine 1+ (A) NONE SEEN /HPF CBC Result Value Ref Range WBC 10.0 4.4 - 11.3 x10*3/uL nRBC 0.0 0.0 - 0.0 /100 WBCs RBC 3.04 (L) 4.50 - 5.90 x10*6/uL Hemoglobin 7.2 (L) 13.5 - 17.5 g/dL Hematocrit 23.8 (L) 41.0 - 52.0 % MCV 78 (L) 80 - 100 fL MCH 23.7 (L) 26.0 - 34.0 pg MCHC 30.3 (L) 32.0 - 36.0 g/dL RDW 21.3 (H) 11.5 - 14.5 % Platelets 319 150 - 450 x10*3/uL Magnesium Result Value Ref Range Magnesium 1.69 1.60 - 2.40 mg/dL Hepatic function panel Result Value Ref Range Albumin 2.2 (L) 3.4 - 5.0 g/dL Bilirubin, Total 0.5 0.0 - 1.2 mg/dL Bilirubin, Direct 0.2 0.0 - 0.3 mg/dL Alkaline Phosphatase 54 33 - 136 U/L ALT 12 10 - 52 U/L AST 12 9 - 39 U/L Total Protein 5.3 (L) 6.4 - 8.2 g/dL Phosphorus Result Value Ref Range Phosphorus 2.9 2.5 - 4.9 mg/dL Basic Metabolic Panel Result Value Ref Range Glucose 123 (H) 74 - 99 mg/dL Sodium 132 (L) 136 - 145 mmol/L Potassium 5.1 3.5 - 5.3 mmol/L Chloride 105 98 - 107 mmol/L Bicarbonate 21 21 - 32 mmol/L Anion Gap 11 10 - 20 mmol/L Urea Nitrogen 15 6 - 23 mg/dL Creatinine 0.59 0.50 - 1.30 mg/dL eGFR >90 >60 mL/min/1.73m*2 Calcium 10.4 8.6 - 10.6 mg/dL Coagulation Screen Result Value Ref Range Protime 17.1 (H) 9.8 - 12.8 seconds INR 1.5 (H) 0.9 - 1.1 aPTT 27 27 - 38 seconds Fibrinogen Result Value Ref Range Fibrinogen 423 (H) 200 - 400 mg/dL CALCIUM, IONIZED Result Value Ref Range POCT Calcium, Ionized 1.74 (H) 1.1 - 1.33 mmol/L Creatine Kinase Result Value Ref Range Creatine Kinase 14 0 - 325 U/L POCT GLUCOSE Result Value Ref Range POCT Glucose 137 (H) 74 - 99 mg/dL XR chest 1 view Result Date: 04/13/2023 Interpreted By: Bharath Ramirez, STUDY: XR CHEST 1 VIEW; 04/13/2023 5:16 pm INDICATION: Signs/Symptoms:Left IJ Central line placement. COMPARISON: 02/25/2023 ACCESSION NUMBER(S): [id number] ORDERING CLINICIAN: TANO PEREZ FINDINGS: Left IJ central venous line with its tip over the right atrium. Ap pearance is similar to the prior. No evidence of a pneumothorax. CARDIOMEDIASTINAL SILHOUETTE: Cardiomediastinal silhouette is normal in size and configuration. LUNGS: Increased perihilar lung markings with extends to the bibasilar regions. There is dense airspace disease at the left lung base with silhouetting of the hemidiaphragm. There is a small left pleural effusion. ABDOMEN: No remarkable upper abdominal findings. BONES: No acute osseous changes. 1. Left IJ central venous line with its tip over the right atrium. 2. Dense left basilar airspace disease with small left effusion. Underlying pneumonia and atelectasis in the differential. 3. Mild interstitial edema noted MACRO: None Signed by: Bharath Ramirez 04/13/2023 5:18 PM Dictation workstation: [id number] Assessment/Plan Assessment: Jagruti Esparza is a 67 y/o M with a history of ESRD s/p 2013 renal transplant, afib, HFpEF (TTE 03/06: EF 50-55%, mild to mod dilated RA, mild elevated RVSP, mild aortic stenosis), CAD, mild aortic stenosis, GERD, WILLIAN, and RLS. presenting to SICU from OR s/p I&D perineum, dahiana's gangrene washout, and R orchiectomy on 04/14. Plan: NEURO: H/o RLS. Acute post-op pain. A&Ox4 s/p OR procedure. - ongoing neuro and pain assessments - PRN hydromorphone for pain control - PRN atarax for anxiety - PT/OT consult - Home meds: Ropinirole CV: History of afib, CAD (NSTEMI 03/06), HFpEF, mild aortic stenosis. Baseline echo (TTE 03/06: EF 50-55%, mild to mod dilated RA, mild elevated RVSP, mild aortic stenosis). Arrived to SICU awake andextubated. Hemodynamically stable off all pressors. - cardiology consult - continuous EKG/abp monitoring - Goal map range 65-90 - Home meds: diltiazem, apixaban, empagliflozin, ASA, atorvastatin. PULM: No pertinent history. Arrived to SICU extubated. - Not requiring O2 - spo2 100% - Q1h incentive spirometer while awake - additional pulm toilet prn. - F/U post op CXR GI: H/o diverticulitis s/p laparoscopic sigmoid resection with end colostomy, acalculous cholecystitis s/p percutaneous cholecystostomy tube 03/06 - Consult ACS for recs on cholecystostomy drain - NPO except sips with meds - Advance diet per surgical service - PPI for GI prophylaxis : ESRD s/p kidney transplant 2012. Oliguric in OR: 37 ml UOP. Baseline creatinine 0.6-0.8. New bowers placed in OR. - continue tacrolimus and prednisone as per transplant medicine - Maintenance IVF - Volume resuscitation as needed - concentrated albumin - Maintain U/O >0.5ml/kg/hr - Check renal function panel post op and daily - Replete electrolytes to goal K>4, Mg>2, Phos>2.5, ionized Ca>1.10. - Consult transplant nephrology HEME: Acute blood loss anemia/chronic anemia. OR EBL 100. HGB 7.2 - 1 U pRBC - Check CBC and coags post op and daily - SCDs for DVT prophylaxis - holding SC heparin, eliquis, and ASA for now - ongoing monitoring for s/s bleeding ENDO: No history of DM or thyroid disease - Q4h BG - SSI Lispro per ICU protocol. ID: Dahiana's gangrene s/p I&D/washout. Afebrile. WBC 10. Immunosuppressed (on prednisone/tacrolimus). - temp q4h, wbc daily - meropenum, daptomycin, clindamycin as per transplant medicine - IgG quant level, CMV PCR quantitative, UA w reflex as per transplant medicine - ongoing monitoring for s/s infection Lines: - LIJ triple lumen (04/13) Dispo: Admit to ICU. Patient seen and discussed with ICU attending Dr. Danielson. Jyotsna Mccoy MD, CA-3/PGY-4 SICU Phone #[phone] Associated attestation - Von Danielson DO - 04/14/2023 6:27 AM EST Patient seen, evaluated, and discussed with the resident/fellow. I have personally obtained florez components of the history and physical and have performed my own medical decision making. I agree with the note above with the exception/addition of the following plan: 67 year old male with history of ESRD s/p renal transplant 2012, atrial fibrillation vs. Flutter, HFpEF, CAD, mild aortic stenosis, GERD, WILLIAN who presented to SICU s/p I&D of the perineum with Dahiana's gangrene washout and right orchiectomy with Dr. Stahl. Arrived extubated and hemodynamically stable without vasoactive support. ESRD s/p renal transplant 2012, functional Dahiana's gangrene History of CAD History of afib/flutter Neuro: Pain control, delirium precautions. PT/OT. CV: History of afib/flutter, CAD with recent NSTEMI, HFpEF with EF 50-55%, mild aortic stenosis. Hemodynamically stable, fluid resuscitate as needed. Will consult Cardiology given extensive history per recommendations preoperatively. Pulm: No history. Arrived extubated. Encourage IS. : History of ESRD s/p renal transplant, functional. Now s/p right orchiectomy. Fluid resuscitate,optimize electrolytes. Will consult Transplant Nephrology regarding immunosuppression regimen givenhistory. GI: NPO. History of diverticulitis s/p sigmoid resection and end colostomy, as well as percutaneouscholecystostomy. Appointment with General Surgery for drain per patient and family is scheduled forFriday, 04/16. Will consult ACS. Heme: Acute blood loss post-op anemia in setting of chronic anemia. Will monitor and transfuse as indicated. SCDs for DVT prophylaxis. Will discuss SQH with surgery team; will need plan for systemic anticoagulation given afib and taking apixaban at home. ID: Antibiotics with meropenem, daptomycin, clindamycin per transplant medicine; ID consult for daptomycin. Will monitor and follow up recs. Endo: Monitor glucose level, SSI. Dispo: Admit to SICU. This critically ill patient continues to be at risk for clinically significant deterioration / failure due to the above mentioned dysfunctional, unstable organ systems. I have personally identified and managed all complex critical care issues to prevent aforementioned clinical deterioration. Critical care time is spent at bedside and/or the immediate area and has included, but is not limited to, the review of diagnostic tests, labs, radiographs, serial assessments of hemodynamics, respiratory status, ventilatory management, review of consult team recommendations, and family updates. Time spent in procedures and teaching are reported separately. Critical Care Time: 32 minutes. * Ashwini Guerrero PA-C - 04/13/2023 3:04 PM EST HPI Jagruti Esparza is a 67 year old male with a complex medical history including HTN, CAD, HFpEF (on jardiance), mild , paroxsymal afib/flutter (on diltiazem/eliquis), ESRD s/p kidney transplant 2012 (immunosuppressed on prednisone/azathioprine/tacrolimus), chronic anemia, RLS (on ropinirole), hiatal hernia, GERD, complicated diverticulitis with pericolonic abscess s/p laparoscopic sigmoid resection with end colostomy and umbilical hernia repair 01/2023, bedbound status c/b decub ulcers of sacrum and mid back, WILLIAN, BPH with LUTS and history of acute retention, and recent hospitalization for acalculous cholecystitis s/p percutaneous cholecystostomy tube 03/06 (surgery deferred d/t elevated troponin, found to have chronic total LAD occlusion) who presented to the [facility] ED on 04/13 [facility] a [facility] for c/o several day history of worsening scrotal pain/draining scrotal lesions aswell as buttocks pain. He also endorsed fatigue, SOB and episode of fever 3 day ago which has not recurred, though has been taking tylenol around the clock since. Denied known injury, history of DM, n/v, current fever/chills, urinary symptoms, or abdominal pain. CT scan and scrotal ultrasound at [facility] showed a large scrotal abscess with gas noted. On arrival to [facility] ED, vital signs were stable and labs significant for glucose of 118, CBC pending vascular access which was difficult requiring eventual central line placement. Exam demonstrated enlarged scrotum consistent with known hydrocele with two areas of ulceration with surrounding erythema and tenderness to palpation without palpable crepitus or areas of necrosis. Urology consulted for c/f dahiana gangrene. On interview patient s tated that he had not eaten since the night before, but had taken his eliquis in the morning with asip of water. Past Medical History HTN, CAD, HFpEF, mild , afib/flutter, ESRD, chronic anemia, RLS, hiatal hernia, GERD, diverticulitis, bedbound status, decub ulcers of sacrum and mid back, WILLIAN, BPH with LUTS, acalculous cholecystitis Surgical History AV fistula creation, kidney transplant 2012, end colostomy 2022, cholecystotomy 2022, left heart cath 2022, vasectomy, facial surgery, c- spine fusion Social History He reports that he has never smoked. He has never used smokeless tobacco. He reportsthat he does not currently use alcohol. He reports that he does not use drugs. Family History Mother DM1, colon cancer, HLD; Father CAD Allergies Cephalexin, Tobramycin, Meperidine, Erythromycin, and Penicillins Meds (Per ) apixaban 5mg BID, aspirin 81mg, atorvastatin 40mg, empagliflozin 10mg, tamsulosin 0.4mg, azaTHIOprine 50mg, DILT-XR 180mg, magnesium oxide 400mg, pantoprazole 20mg, polyethylene glycol, predniSONE 5mg, Prograf 0.5mg BID, rOPINIRole 1mg, bicarb 650mg BID, bactrim Subjective Patient states that he has had a hydrocele for the at least 10 years. States that it is bothersome but never painful. Patient states the current scrotal pain and wounds began to develop over the last several days. There has been some drainage from the scrotum. States during this time he's had increased fatigue and SOB. Patient denies n/v, fever/chills, and worsening abdominal pain. Objective Physical Exam General: Laying in bed. Ill appearing. Eyes: EOMI ENMT: no apparent injury, no lesions seen, MMM Head/neck: NCAT Cardiac: regular rate in chart Pulm: Mildly increased effort on NC GI: soft, NT/ND, no masses palpated, end colostomy with stool output : Bowers in place draining CYU, enlarged scrotum consistent with known hydrocele with two areas ofulceration covered in powder applied at home with surrounding erythema and tenderness to palpation without palpable crepitus Msk: DARDEN at baseline Skin: pallor, decubitus ulcers noted on sacrum and mid back covered with mepilex Neuro: AOx3 Psych: appropriate mood and behavior Last Recorded Vitals Blood pressure (!) 136/112, pulse 97, resp. rate 15, height 1.829 m (6'), weight 79.4 kg (175 lb), SpO2 100 %. 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 Patient had proteinuria in 1975 and blockage in the ureter in 2007, s/p stent and right nephrectomy, on HD since 2008. 01/15/23 Dr. Pedro bernard note - perforated transverse colon 2/2 diverticulitis with abscess s/p laparoscopic sigmoid resection with creation of end colostomy and repair of periumbilical hernia. 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 Cards recs: d/c flecainide, start eliquis, continue dilt - previously not on AC due to GI bleed requiring massive transfusion protocol, If future afib, will need to be re-evaluated with re-initiation of antiarrhythmic medication with either amio or Tikosyn).ACS follow-up with biliary cholangiogram upon discharge. Of note urology consulted for bladder scan>1L during hospitalization, placed bowers, passed TOV prior to discharge. 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 Given complexity of ongoing medical issues, medicine to be consulted post-procedure for recommendations with transplant nephrology to be consulted in the morning - Please page urology for questions/concerns/clinical status changes Ashwini Guerrero PA-C Pager [phone] documented in this [facility] Work Phone: [phone] Evaluation + Plan noteExtracted from: Title:ED Note Author:Won Kruger DO Date :04/13/23 Scrotal infection (N49.2: In flammatory disorders of scrotum) Shortness of breath (R06.02: Shortness of breath) Orders: Add on Test B-Type Natriuretic Peptide Blood Culture Charcoal Blood Culture Charcoal CBC w/ Auto Diff Comprehensive Metabolic Panel Continuous Pulse Oximetry ECG 12 Lead Adult ED Cardiac Monitoring eGFR Influenza A&B Ag Lactic Acid Lactic Acid Oxygen Therapy PT & PTT Rapid COVID Antigen ([facility]) Saline Lock Insert Troponin Urinary Catheter Insertion US Scrotum (Contents) Wound Culture XR Chest Single View Addendum by Miguelito Francisco DO on April 13, 2023 10:13:42 EST Patient was signed out to me by the prior physician I did review full workup here in the emergency department. I did add a CT scan in addition to the ultrasound. It does look like there is a 12 x 9 cm abscess within the scrotum. This was then discussed with Dr. Garcia who did recommend transfer to higher level of care. Family did request [facility] they have been there in the past in fact they were therefore colostomy after complications from diverticulitis. I spoke with urology Dr. Stahl who recommended transfer to the emergency department to expedite treatment. I then spoke with the ER physician Dr. Arnaldo Aldana who accepted the patient. Patient is treated here with IV Levaquin and vancomycin based on his numerous medication allergies. He is currently and will remain NPO. We will arrange for transfer to the emergency department. Critical care time 35 minutes exclusive from separate billable procedures Additional diagnoses: Scrotal abscess, sepsis, acute on chronic anemia, hypercalcemia Diagnostic Tests Pending * Blood Culture Charcoal 04/13/23 * Blood Culture Charcoal 04/13/23 * Wound Culture 04/13/23 * Urine Culture 04/13/23 Future Scheduled Tests Laboratory* Tacrolimus Lvl 02/10/23 * CBC w/ Auto Diff 02/10/23 * Comprehensive Metabolic Panel 02/10/23 [facility]01-30-2024 Emergency department Note* Arnaldo Lawton MD - 04/13/2023 12:22 PM EST HPI No chief complaint on file. HPI The patient is a 67-year-old male with past medical history significant for renal transplant, A-fib, hiatal hernia, HTN, CKD, cholecystitis with percutaneous cholecystostomy drain, complicated diverticulitis with ostomy in place, and renal transplant performed here [facility] presented to the emergency dep artment as a transfer from [facility] for scrotal pain/abscess. Patient states that abscess beganapproximately 3 to 4 days ago. He denies a history of diabetes. The abscess has since grown in sizeand pain. He endorsed a fever approximately 3 days ago, but none since. He has been taking Tylenol a [id number] for pain. Morphine was offered for pain control at outside hospital, but patient declined stating that morphine and Dilaudid do not sit well with him. He also endorses generalized weakness and difficulty breathing for the past 3 days when asked about his scrotum, patient endorses drainage from his scrotum over the past few days and when he called his doctor, they recommended that he present to the emergency department. CT scan and ultrasound of scrotum were obtained at [facility] showing a large abscess of scrotum with air accumulation. Was transferred to [facility] for urology consultation and continuation of care. No data recorded Patient History Past Medical History: Diagnosis Date PONV (postoperative nausea and vomiting) Past Surgical History: Procedure Laterality Date CARDIAC CATHETERIZATION N/A 03/02/2023 Procedure: Left Heart Cath; Surgeon: Leonardo Welch MD; Location: [address] Cardiac Line Installer; Service: Cardiovascular; Laterality: N/A; COLOSTOMY CT GUIDED IMAGING FOR ABSCESS DRAIN 01/11/2023 CT GUIDED IMAGING FOR ABSCESS DRAIN 01/11/2023 Jerome Farrell MD [facility] CT GALLBLADDER SURGERY OTHER SURGICAL HISTORY 12/25/2020 Arteriovenous fistula creation procedure OTHER SURGICAL HISTORY 12/25/2020 Neck surgery OTHER SURGICAL HISTORY 12/25/2020 Kidney transplantation OTHER SURGICAL HISTORY 12/25/2020 Facial surgery OTHER SURGICAL HISTORY 12/25/2020 Vasectomy OTHER SURGICAL HISTORY 07/11/2021 Colonoscopy complete for polypectomy Family History Problem Relation Name Age of Onset Diabetes type I Mother Other (malignant neoplasm of colon) Mother Other (high serum cholestanol) Mother Other (heart problem) Father Other (CABG) Father Other (cardiovascular disease) Father Social History Tobacco Use Smoking status: Never Smokeless tobacco: Never Substance Use Topics Alcohol use: Not Currently Drug use: Never Physical Exam ED Triage Vitals Temp Pulse Resp BP -- -- -- -- SpO2 Temp src Heart Rate Source Patient Position -- -- -- -- BP Location FiO2 (%) -- -- Physical Exam Vitals and nursing note reviewed. Constitutional: General: He is not in acute distress. Appearance: He is well-developed. HENT: Head: Normocephalic and atraumatic. Eyes: Conjunctiva/sclera: Conjunctivae normal. Cardiovascular: Rate and Rhythm: Normal rate and regular rhythm. Heart sounds: No murmur heard. Pulmonary: Effort: Pulmonary effort is normal. No respiratory distress. Breath sounds: Normal breath sounds. Abdominal: Comments: Distended but soft. There is a percutaneous cholecystostomy drain in place with bile contents in bag. Skin around drain site looks good. Ostomy bag in place, no surrounding cellulitic changes such as erythema or induration. Otherwise, no overlying skin changes. Genitourinary: Comments: Bowers catheter in place. Scrotum is grossly enlarged with 2 different areas of drainage where pus can be seen. Scrotum approximately 10 cm in diameter and erythematous. Exquisitely tender to palpation. No crepitus or gangrenous tissue seen at surface. No crepitus over inner thighs or groin. Musculoskeletal: General: No swelling. Cervical back: Neck supple. Skin: General: Skin is warm and dry. Capillary Refill: Capillary refill takes less than 2 seconds. Neurological: Mental Status: He is alert. Psychiatric: Mood and Affect: Mood normal. ED Course & MDM Diagnoses as of 04/13/23 6727 Scrotal abscess Patient is a 67-year-old male with complicated medical history presenting to the emergency department as a transfer from [facility] for further evaluation of his scrotal abscess that developed 3 to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 Patient initially hemodynamically stable and mentating well. Patient has a fistula in his right arm and tenuous IV in left upper extremity, so blood pressure cuff took reading from patient's left forearm reading 136/112. Given location of blood pressure cuff, unlikely that diastolic pressure is that high and patient does report taking his antihypertensive medications. On evaluation of the scrotum, there is no crepitus, or ecchymoses in groin or thigh and symptoms seem to be limited to scrotum. Urology was urgently consulted to evaluate the patient to determine whether he is a candidate for potential surgery. Although suspicion for necrotizing soft tissue infection low, patient was covered with clindamycin on arrival to emergency department. Urology evaluated the patient and recommended patient for OR today for I&D. Initial labs were ordered, but vascular access for this patient has been problematic. Patient came from [facility] with 1 IV that was infiltrated upon arrival. Attempt for ultrasound-guided IV placement was made without success. Given that patient was stuck approximately 12 times without success, patient was offered central venous access as a way to obtain blood and administer medications. Informed consent was obtained for the procedure. Plan at the time of signout is to obtain central venous access and transportpatient to operating room for urology debridement of scrotal abscess. Plan was discussed with the patient who is agreeable and patient handed off to oncoming provider. Medical Decision Making Procedure Procedures Preston Kenney MD Resident 04/13/23 0325 Attestation Patient evaluated with juan resident. Jagruti Esparza is a 67 y.o. year old male presenting with testicular abscess. Patient transferred from OSH. Has a significant medical history for kidney transplantation currently on immunosuppressive medication, as well as recent diverticulosis and cholecystec jeff s/p percutaneous drain. Did receive vancomycin and Levaquin at OSH. Urology recommended transfer due to necessity to take to the OR. Upon arrival to [facility], reevaluated the patient and there are some concerns for Dahiana's gangrene given the appearance of the abscess. Patient's antibiotic coverage was broadened to clindamycin. IV access difficult to obtain as he had multiple IVs that blew, therefore after discussion with patient ultimately was decided to place a left IJ central line; please see procedure note for full details. Patient tolerated procedure well and there were no complications. Patient was reversed with Andexxa for preoperative anticoagulation reversal. Admitted to medicinefor continued management of all the above. Patient seen and discussed with attending Dr. Jairon Lawton MD Emergency Medicine PGY-3 Arnaldo Lawton MD Resident 04/15/23 34 Associated attestation - Nathen De La O DO - 04/18/2023 12:07 PM EST The patient was seen by the resident/fellow. I have personally performed a substantive portion of the encounter. I have seen and examined the patient; agree with the workup, evaluation, MDM, management and diagnosis. The care plan has been discussed with the resident; I have reviewed the resident snote and agree with the documented findings. * Arlene Bates MD - 04/13/2023 12:22 PM EST Handoff Note I received Jagruti Esparza in signout from Dr. Kenney. Please see the previous note for all HPI, PE and MDM up to the time of signout at 2 pm. In brief Jagruti Esparza is an 67 y.o. male presenting for Chief Complaint Patient presents with Groin Swelling . At the time of signout, the patient's disposition is pending intravenous access. Patient has had previous peripheral IVs have blown. Patient got a central line on the left IJ, tolerated the procedurewell. Chest x-ray was obtained and showed no pneumothorax, good placement of the central line. He is being admitted to urology inpatient and head straight to the OR. Throughout the ED stay, the patient was monitored and re-examined for any changes in stability or symptomatology. ED Course: Diagnoses as of 04/13/23 1714 Scrotal abscess Labs Reviewed COMPREHENSIVE METABOLIC PANEL - Abnormal Result Value Glucose 118 (*) Sodium 130 (*) Potassium 6.6 (*) Chloride 105 Bicarbonate 21 Anion Gap 11 Urea Nitrogen 14 Creatinine 0.55 eGFR >90 Calcium 10.5 Albumin 2.1 (*) Alkaline Phosphatase 52 Total Protein 5.6 (*) AST 30 Bilirubin, Total 0.7 ALT 12 URINALYSIS WITH REFLEX CULTURE AND MICROSCOPIC - Abnormal Color, Urine Yellow Appearance, Urine Hazy (*) Specific [place], Urine 1.029 pH, Urine 7.0 Protein, Urine 100 (2+) (*) Glucose, Urine >=500 (3+) (*) Blood, Urine MODERATE (2+) (*) Ketones, Urine 5 (TRACE) (*) Bilirubin, Urine NEGATIVE Urobilinogen, Urine <2.0 Nitrite, Urine NEGATIVE Leukocyte Esterase, Urine MODERATE (2+) (*) MICROSCOPIC ONLY, URINE - Abnormal WBC, Urine >50 (*) RBC, Urine >20 (*) Bacteria, Urine 1+ (*) CBC - Abnormal WBC 10.0 nRBC 0.0 RBC 3.04 (*) Hemoglobin 7.2 (*) Hematocrit 23.8 (*) MCV 78 (*) MCH 23.7 (*) MCHC 30.3 (*) RDW 21.3 (*) Platelets 319 HEPATIC FUNCTION PANEL - Abnormal Albumin 2.2 (*) Bilirubin, Total 0.5 Bilirubin, Direct 0.2 Alkaline Phosphatase 54 ALT 12 AST 12 Total Protein 5.3 (*) BASIC METABOLIC PANEL - Abnormal Glucose 123 (*) Sodium 132 (*) Potassium 5.1 Chloride 105 Bicarbonate 21 Anion Gap 11 Urea Nitrogen 15 Creatinine 0.59 eGFR >90 Calcium 10.4 COAGULATION SCREEN - Abnormal Protime 17.1 (*) INR 1.5 (*) aPTT 27 Narrative: The APTT is no longer used for monitoring Unfractionated Heparin Therapy. For monitoring Heparin Therapy, use the Heparin Assay. FIBRINOGEN - Abnormal Fibrinogen 423 (*) CALCIUM, IONIZED - Abnormal POCT Calcium, Ionized 1.74 (*) URINALYSIS WITH REFLEX MICROSCOPIC - Abnormal Color, Urine Yellow Appearance, Urine Hazy (*) Specific [place], Urine 1.022 pH, Urine 7.0 Protein, Urine 30 (1+) (*) Glucose, Urine >=500 (3+) (*) Blood, Urine MODERATE (2+) (*) Ketones, Urine 5 (TRACE) (*) Bilirubin, Urine NEGATIVE Urobilinogen, Urine <2.0 Nitrite, Urine NEGATIVE Leukocyte Esterase, Urine MODERATE (2+) (*) MICROSCOPIC ONLY, URINE - Abnormal WBC, Urine 21-50 (*) RBC, Urine >20 (*) CBC - Abnormal WBC 7.1 nRBC 0.0 RBC 2.94 (*) Hemoglobin 7.2 (*) Hematocrit 23.3 (*) MCV 79 (*) MCH 24.5 (*) MCHC 30.9 (*) RDW 20.4 (*) Platelets 276 BLOOD GAS VENOUS FULL PANEL - Abnormal POCT pH, Venous 7.34 POCT pCO2, Venous 36 (*) POCT pO2, Venous 72 (*) POCT SO2, Venous 96 (*) POCT Oxy Hemoglobin, Venous 93.2 (*) POCT Hematocrit Calculated, Venous 22.0 (*) POCT Sodium, Venous 130 (*) POCT Potassium, Venous 5.9 (*) POCT Chloride, Venous 106 POCT Ionized [place], Venous 1.77 (*) POCT Glucose, Venous 127 (*) POCT Lactate, Venous 0.5 POCT Base Excess, Venous -5.8 (*) POCT HCO3 Calculated, Venous 19.4 (*) POCT Hemoglobin, Venous 7.2 (*) POCT Anion Gap, Venous 11.0 Patient Temperature 37.0 FiO2 28 CBC - Abnormal WBC 6.1 nRBC 0.0 RBC 2.97 (*) Hemoglobin 7.5 (*) Hematocrit 24.1 (*) MCV 81 MCH 25.3 (*) MCHC 31.1 (*) RDW 20.4 (*) Platelets 243 CBC - Abnormal WBC 6.7 nRBC 0.0 RBC 3.13 (*) Hemoglobin 8.2 (*) Hematocrit 25.9 (*) MCV 83 MCH 26.2 MCHC 31.7 (*) RDW 20.1 (*) Platelets 256 RENAL FUNCTION PANEL - Abnormal Glucose 89 Sodium 133 (*) Potassium 4.9 Chloride 104 Bicarbonate 18 (*) Anion Gap 16 Urea Nitrogen 14 Creatinine 0.49 (*) eGFR >90 Calcium 10.9 (*) Phosphorus 3.5 Albumin 2.7 (*) POCT GLUCOSE - Abnormal POCT Glucose 139 (*) POCT GLUCOSE - Abnormal POCT Glucose 137 (*) POCT GLUCOSE - Abnormal POCT Glucose 143 (*) POCT GLUCOSE - Abnormal POCT Glucose 106 (*) POCT GLUCOSE - Abnormal POCT Glucose 126 (*) POCT GLUCOSE - Abnormal POCT Glucose 119 (*) BLOOD GAS MIXED VENOUS FULL PANEL UNSOLICITED - Abnormal POCT pH, Mixed 7.37 POCT pCO2, Mixed 38 (*) POCT pO2, Mixed 108 (*) POCT SO2, Mixed 99 (*) POCT Oxy Hemoglobin, Mixed 96.3 (*) POCT Hematocrit Calculated, Mixed 22.0 (*) POCT Sodium, Mixed 130 (*) POCT Potassium, Mixed 4.6 POCT Chloride, Mixed 107 POCT Ionized Calcium, Mixed 1.77 (*) POCT Glucose, Mixed 125 (*) POCT Lactate, Mixed 1.5 POCT Base Excess, Mixed -3.0 (*) POCT HCO3 Calculated, Mixed 22.0 POCT Hemoglobin, Mixed 7.3 (*) POCT Anion Gap, Mixed 6 (*) Patient Temperature 37.0 MAGNESIUM - Normal Magnesium 1.69 PHOSPHORUS - Normal Phosphorus 2.9 CREATINE KINASE - Normal Creatine Kinase 14 MAGNESIUM - Normal Magnesium 2.13 FUNGAL CULTURE/SMEAR FUNGAL CULTURE/SMEAR TISSUE/WOUND CULTURE/SMEAR TISSUE/WOUND CULTURE/SMEAR URINE CULTURE TYPE AND SCREEN ABO TYPE A Rh TYPE POS ANTIBODY SCREEN NEG URINALYSIS WITH REFLEX CULTURE AND MICROSCOPIC Narrative: The following orders were created for panel order Urinalysis with Reflex Culture and Microscopic. Procedure Abnormality Status --------- ------ Urinalysis with Reflex C...[[id number]] Abnormal Final result Extra Urine Perez Tube[[id number]] Final result Please view results for these tests on the individual orders. EXTRA URINE PEREZ TUBE Extra Tube Hold for add-ons. PROTIME-INR TYPE AND SCREEN BLOOD GAS VENOUS FULL PANEL POCT GLUCOSE POCT GLUCOSE PREPARE RBC PRODUCT CODE [id number] Unit Number [id number] Unit ABO A Unit RH POS XM INTEP COMP Dispense Status XM Blood Expiration Date April 23, 2023 23:59 EST PRODUCT BLOOD TYPE 6200 UNIT VOLUME 350 PRODUCT CODE [id number] Unit Number [id number] Unit ABO A Unit RH POS XM INTEP COMP Dispense Status XM Blood Expiration Date April 23, 2023 23:59 EST PRODUCT BLOOD TYPE 6200 UNIT VOLUME 350 PREPARE RBC PRODUCT CODE [id number] Unit Number [id number] Unit ABO A Unit RH POS XM INTEP COMP Dispense Status XM Blood Expiration Date April 29, 2023 23:59 EST PRODUCT BLOOD TYPE 6200 UNIT VOLUME 350 PRODUCT CODE [id number] Unit Number [id number] Unit ABO A Unit RH POS XM INTEP COMP Dispense Status TR Blood Expiration Date April 23, 2023 23:59 EST PRODUCT BLOOD TYPE 6200 UNIT VOLUME 278 PREPARE RBC PRODUCT CODE [id number] Unit Number [id number] Unit ABO A Unit RH POS XM INTEP COMP Dispense Status TR Blood Expiration Date April 14, 2023 23:59 EST PRODUCT BLOOD TYPE 6200 UNIT VOLUME 350 PREPARE RBC PREPARE RBC SURGICAL PATHOLOGY EXAM XR chest 1 view Final Result 1. Persistent small left pleural effusion with associated adjacent atelectasis/consolidation. Correlate with worsening left basilar atelectasis/volume loss. 2. Worsening aeration of the right lung base with streaky opacities which may represent atelectasis versus infectious infiltrate. I personally reviewed the images/study and I agree with the findings as stated above by resident physician, Dr. Maximo Hoffmann. The study was interpreted at [facility] in [facility]. MACRO: none. Signed by: Sekou Wilson 04/14/2023 10:00 AM Dictation workstation: [id number] XR chest 1 view Final Result 1. Left IJ central venous line with its tip over the right atrium. 2. Dense left basilar airspace disease with small left effusion. Underlying pneumonia and atelectasis in the differential. 3. Mild interstitial edema noted MACRO: None Signed by: Bharath Ramirez 04/13/2023 5:18 PM Dictation workstation: [id number] Lower extremity venous duplex bilateral (Results Pending) IR biliary (Results Pending) Lower extremity venous duplex bilateral (Results Pending) XR chest 1 view Final Result 1. Persistent small left pleural effusion with associated adjacent atelectasis/consolidation. Correlate with worsening left basilar atelectasis/volume loss. 2. Worsening aeration of the right lung base with streaky opacities which may represent atelectasis versus infectious infiltrate. I personally reviewed the images/study and I agree with the findings as stated above by resident physician, Dr. Maximo Hoffmann. The study was interpreted at [facility] in [facility]. MACRO: none. Signed by: Sekou Wilson 04/14/2023 10:00 AM Dictation workstation: [id number] XR chest 1 view Final Result 1. Left IJ central venous line with its tip over the right atrium. 2. Dense left basilar airspace disease with small left effusion. Underlying pneumonia and atelectasis in the differential. 3. Mild interstitial edema noted MACRO: None Signed by: Bharath Ramirez 04/13/2023 5:18 PM Dictation workstation: [id number] Lower extremity venous duplex bilateral (Results Pending) IR biliary (Results Pending) Lower extremity venous duplex bilateral (Results Pending) Patient seen by and discussed with Dr. Perez Pt Disposition: Urology Procedures Arlene Bates MD Emergency Medicine PGY-1 [facility]\ Arlene Bates MD Resident 04/13/23 1920 Tano Perez MD 04/14/23 1624 Associated attestation - Tano Perez MD - 04/14/2023 4:24 PM EST The patient was seen by the resident/fellow. I have personally performed a substantive portion of the encounter. I have seen and examined the patient; agree with the workup, evaluation, MDM, management and diagnosis. The care plan has been discussed with the resident; I have reviewed the resident snote and agree with the documented findings. * Johana Neves RN - 04/13/2023 12:22 PM EST Patient is a transfer here from [facility] for a urology consult; patient initially presented to OSH for SOB and now remains on 2L of O2 for comfort; patient also reports having scrotal swelling since he had his right kidney transplanted in 2012 and was found to have a 9cm abscess to the scrotum on CT at OSH; US ruled out any testicular torsion; patient denies any urinary changes; patient had a bowers catheter placed at OSH which is draining clear, yellow urine; patient has a colostomy at baseline related to complications of diverticulitis; also arrives with a gallbladder drainage bag at baseline; patient is reporting increased weakness as well as edema to the RUE, has an AV fistula to this extremity as a former HD patient; denies any recent sick contacts; 9/10 pain to thescrotum on arrival; GCS 15 documented in this [facility] Work Phone: 1(240) 837-904301-12-2024 History of Present illness Narrative* Hernandez Hankins MD - 03/26/2023 2:00 PM EST Subjective Jagruti Esparza is a 67 y.o. male Chief Complaint Hospital Follow-up HPI Patient returns after long absence. He had a very bad year. Most of his problems revolved around acute cholecystitis. He underwent a drainage procedure but did not have a cholecystectomy apparently because of his general weakness. During the hospitalization he underwent coronary angiography demonstrating mild disease in the left coronary system but a complete occlusion of the right coronary with collaterals. Ejection fraction normal. Because of this flecainide was stopped and he was started on rate control with antithrombotic therapy with which I agree. The present time it appears that his cardiovascular condition is acceptable. He has stable coronarydisease as noted. Normal ejection fraction with no significant valve disease. Atrial fibrillation is recurrent but rate is controlled and he is protected by the use of Eliquis. I advised him and his that Eliquis not only prevents risk of stroke but also deep vein thrombosis with pulmonary embolism in view of his debilitated condition this is also significant risk. For now we recommend no adjustments or changes in therapy and follow-up as noted. Review of Systems Constitutional: Positive for malaise/fatigue. Cardiovascular: Positive for irregular heartbeat. All other systems reviewed and are negative. Visit Vitals BP 98/50 (BP Location: Left arm, Patient Position: Sitting) Pulse 102 Smoking Status Never Objective Physical Exam Constitutional: Appearance: Normal appearance. He is normal weight. Comments: In wheelchair HENT: Nose: Nose normal. Neck: Vascular: No carotid bruit. Cardiovascular: Rate and Rhythm: Normal rate. Pulses: Normal pulses. Heart sounds: Normal heart sounds. Pulmonary: Effort: Pulmonary effort is normal. Abdominal: General: Bowel sounds are normal. Palpations: Abdomen is soft. Genitourinary: Rectum: Normal. Musculoskeletal: General: Normal range of motion. Cervical back: Normal range of motion. Right lower leg: No edema. Left lower leg: No edema. Skin: General: Skin is warm and dry. Neurological: General: No focal deficit present. Mental Status: He is alert. Psychiatric: Mood and Affect: Mood normal. Behavior: Behavior normal. Thought Content: Thought content normal. Judgment: Judgment normal. Current Medications Current Outpatient Medications: apixaban (Eliquis) 5 mg tablet, Take 1 tablet (5 mg) by mouth every 12 hours., Disp: 60 tablet, Rfl: 1 aspirin 81 mg chewable tablet, Chew 1 tablet (81 mg) once daily., Disp: 30 tablet, Rfl: 0 atorvastatin (Lipitor) 40 mg tablet, Take 1 tablet (40 mg) by mouth once daily at bedtime., Disp: 30 tablet, Rfl: 0 azaTHIOprine (Imuran) 50 mg tablet, Take 1 tablet (50 mg) by mouth once daily., Disp: 30 tablet, Rfl: 2 DILT-XR 180 mg 24 hr capsule, Take 1 capsule (180 mg) by mouth once daily., Disp: , Rfl: empagliflozin (Jardiance) 10 mg, Take 1 tablet (10 mg) by mouth once daily., Disp: 30 tablet, Rfl: 0 magnesium oxide (Mag-Ox) 400 mg (241.3 mg magnesium) tablet, Take 1 tablet (400 mg) by mouth once daily., Disp: , Rfl: pantoprazole (ProtoNix) 20 mg EC tablet, Take 1 tablet (20 mg) by mouth twice a day., Disp: , Rfl: polyethylene glycol (Glycolax, Miralax) 17 gram packet, Take 17 g by mouth once daily. Do not startbefore January 21, 2023., Disp: 30 packet, Rfl: 2 predniSONE (Deltasone) 5 mg tablet, Take 1 tablet (5 mg) by mouth once daily in the morning., Disp:, Rfl: rOPINIRole (Requip) 1 mg tablet, Take 1 tablet (1 mg) by mouth once daily at bedtime., Disp: , Rfl: sodium bicarbonate 650 mg tablet, Take 1 tablet (650 mg) by mouth 3 times a day., Disp: , Rfl: sodium chloride 1,000 mg tablet, Take 1 tablet (1 g) by mouth 3 times a day., Disp: , Rfl: sulfamethoxazole-trimethoprim (Bactrim) 400-80 mg tablet, Take 1 tablet by mouth once daily in the morning., Disp: , Rfl: tacrolimus (Prograf) 0.5 mg capsule, Take 0.5 mg by mouth 2 times a day., Disp: 60 capsule, Rfl: 2 tamsulosin (Flomax) 0.4 mg 24 hr capsule, Take 1 capsule (0.4 mg) by mouth once daily., Disp: 30 capsule, Rfl: 0 Assessment/Plan 1. Coronary artery disease involving koi coronary artery of koi heart without angina pectoris Recent identified by cardiac catheterization at [facility]. Adequate coronary circulation not in need of intervention. 2. Primary hypertension Adequate control at the present time. 3. Typical atrial flutter (CMS/HCC) Rate is controlled with diltiazem. Continue same. 4. Never smoked any substance Fortuitously has never been a smoker. [facility] Work Phone: 1(296) 299-842201-12-2024 Instructions* Patient Instructions* Leopoldo Lopez MA - 03/26/2023 2:00 PM EST Please bring all medicines, vitamins, and herbal supplements with you when you come to the office. Prescriptions will not be filled unless you are compliant with your follow up appointments or have a follow up appointment scheduled as per instruction of your physician. Refills should be requested at the time of your visit. [facility] Work Phone: 1(145) 536-400901-04-2024 Evaluation + Plan noteExtracted from: Title:Nephrology Progress Note Author:Sarah Steiner CNP Date:03/18/23 Impression and Plan 1. Acute on chronic hyponatremia possibly due to excessive free water intake. 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 -During January 2023 hospitalization serum Na level improved with fluid restriction. Also during that hospitalization TSH, a.m. cortisol. and ACTH were unremarkable. -Urine sodium 20 and urine osmol high on admission. Has been receiving IVF with no significant improvement in his sodium level. IVF discontinued and placed on 1.2 L fluid restriction. -Continue Salt tabs 1 g TID w/ meals upon discharge. 2. Status post renal transplant in 2012. -He reports history of right nephrectomy in 2009, obstructive uropathy to left kidney causing ESRD, and then renal transplant in 2012. He believes his baseline creatinine 0.9-1.1 mg/dL. Currently renal function at baseline. -Continue Azathioprine 50 mg daily, Tacrolimus 0.5 mg twice daily, and Prednisone 5 mg daily. -Follow up with nephrology after discharge. 3. UTI with hematuria -Seen by urology. Flomax has been increased. -Urine culture no growth to date. Did receive Fosfomycin earlier in this hospitalization. -Eliquis on hold. 4. Metabolic Acidosis -Will start sodium bicarb 650 mg PO TID; continue upon discharge. Extracted from: Title:Discharge Note Author:Hernandez Freitas DO Date:03/18/23 Discharge To, Anticipated II - Home with responsible caregiver Discharged to - Home with family care Transported by, Anticipated - EMS Prescriptions azaTHIOprine 50 mg Tab, 50 mg= 1 tab(s), Oral, Daily Flomax 0.4 mg Cap, 0.4 mg= 1 cap(s), Oral, BID Mucinex 600 mg Tab-ER, 1200 mg= 2 tab(s), Oral, BID sodium chloride 1 g Tab, 1 gm= 1 tab(s), Oral, TID Tessalon 100 mg Cap, 100 mg= 1 cap(s), Oral, TID Home aspirin 81 mg oral capsule, 81 mg= 1 cap(s), Oral, q24hr atorvastatin 40 mg Tab, 40 mg= 1 tab(s), Oral, Daily Bactrim, 400/80, Oral, Daily Dilt-XR 180 mg/24 hours oral capsule, extended release Eliquis 5 mg oral tablet, 5 mg= 1 tab(s), Oral, BID flecainide 100 mg Tab, 50 mg= 0.5 tab(s), Oral, TID, Investigating magnesium oxide, 400 mg, Oral, Daily pantoprazole, 20 mg, Oral, BID polyethylene glycol 3350, 1 packet(s), Oral, Daily predniSONE 5 mg Tab, 5 mg= 1 tab(s), Oral, Daily Prograf 0.5 mg oral capsule Requip 1 mg Tab, 1 mg= 1 tab(s), Oral, Bedtime With When Contact Information JAYDEN KNIGHT, Ruth Ann Reese, URL Within 1 to 2 weeks [facility] [address], [place] [address]- Additional Instructions: Call for followup appointment follow up with electrician telephone Within 1 to 2 weeks Additional Instructions: KAMRON KNIGHT, AISHWARYA Rodriguez, [address] [address]- Additional Instructions: Hyponatremia, [id number] Addendum by Dao Freitas DO, am on March 18, 2023 11:10:55 EST Patient will also go home on sodium bicarb 650 mg twice daily per nephrology Extracted from: Title:Nephrology Progress Note Author:Sarah Steiner CNP. Date:03/17/23 Impression and Plan 1. Acute on chronic hyponatremia possibly due to excessive free water intake. 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 -During January 2023 hospitalization serum Na level improved with fluid restriction. Also during that hospitalization TSH, a.m. cortisol. and ACTH were unremarkable. -Urine sodium 20 and urine osmol high on admission. Has been receiving IV fluids with no significant improvement in his sodium level. IV fluids discontinued and placed on 1.2 L fluid restriction. -Salt tabs 1 g TID w/ meals ordered. 2. Status post renal transplant in 2012. -He reports history of right nephrectomy in 2009, obstructive uropathy to left kidney causing ESRD, and then renal transplant in 2012. He believes his baseline creatinine 0.9-1.1 mg/dL. Currently renal function at baseline. -Continue Azathioprine 50 mg daily, Tacrolimus 0.5 mg twice daily, and Prednisone 5 mg daily. 3. UTI with hematuria -Seen by urology. Flomax has been increased. -Urine culture no growth to date. Did receive Fosfomycin earlier in this hospitalization. -Eliquis on hold. Extracted from: Title:APSO Note Author:Hernandez Freitas DO Juan Miguel e:03/17/23 1. Hyponatremia (E87.1: Hypo -osmolality and hyponatremia) Na is 127 Urine Na was 34 trend q8hr fluid restriction. consulted nephro and following Ordered: [facility] Hospital Care/Day Moderate 35 Minutes [address]4820 2. Acute UTI (N39.0: Urinary tract infection, site not specified) UCx negative Patient given fosfomycin 3 g p.o. x 1 dose will await urine cultures due to multiple abx allergies 3. Hematuria (R31.9: Hematuria, unspecified) Hold Eliquis, may restart today Monitor hemoglobin no acute intervention per urology flomax bid per urology 4. Colostomy status (Z93.3: Colostomy status) Stable, functioning Follow-up with general surgery 5. Cholecystostomy care (Z43.4: Encounter for attention to other artificial openings of digestive tract) Stable, functioning Follow-up with general surgery 6. Kidney transplant recipient (Z94.0: Kidney transplant status) Continue with tacrolimus and azathioprine 7. Chronic GERD (K21.9: Gastro-esophageal reflux disease without esophagitis) PPI 8. Hypertension (I10: Essential (primary) hypertension) monitor diltiazem 180mg daily 9. Atrial fibrillation (I48.91: Unspecified atrial fibrillation) holding eliquis due to #3, may restart today rate control with diltiazem 180mg daily 10. 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 Acute on chronic hyponatremia. - Patient reports a history of hyponatremia has been managed by his electrician telephone with fluid restriction. This is possibly due to excessive free water intake. -During January 2023 hospitalization serum level improved with fluid restriction. Also during that hospitalization TSH, a.m. cortisol and ACTH were unremarkable -Urine sodium 20 and urine osmol high on admission. Has been receiving IV fluids with no significant improvement in his sodium level. Will discontinue IV fluids and placed on 1.2 L fluid restriction. Recheck urine studies. If sodium level does not improve and urine sodium remains less than 30 will start sodium chloride 1 g 3 times daily 2. Status post renal transplant in 2012 -Patient reports history of right nephrectomy in 2009, obstructive uropathy to left kidney causing ESRD and then renal transplant in 2012. He believes his baseline creatinine 0.9 to 1.1 mg/dL. Currently renal function at baseline -Continue azathioprine 50 mg daily, tacrolimus 0.5 mg twice daily and prednisone 5 mg daily. 3. UTI with hematuria -Seen by urology. Flomax has been increased -Urine culture no growth to date. Did receive fosfomycin earlier in this hospitalization -Eliquis on hold Extracted from: Title:APSO Note Author:Hernandez Freitas DO Juan Miguel e:03/16/23 1. Hyponatremia (E87.1: Hypo -osmolality and hyponatremia) Na is 125 from 123 Urine Na is 20 showing likely hypovolemia trend q4hr IVF, may need fluid restriction. will consult nephro check Urine Na again Ordered: Sbsq Hospital Care/Day Moderate 35 Minutes [id number] US guided needle placement [id number] 2. Acute UTI (N39.0: Urinary tract infection, site not specified) Patient given fosfomycin 3 g p.o. x 1 dose will await urine cultures due to multiple abx allergies so far UCx negative 3. Hematuria (R31.9: Hematuria, unspecified) Hold Eliquis Monitor hemoglobin no acute intervention per urology flomax bid per urology 4. Colostomy status (Z93.3: Colostomy status) Stable, functioning Follow-up as outpatient with general surgery 5. Cholecystostomy care (Z43.4: Encounter for attention to other artificial openings of digestive tract) Stable, functioning Follow-up with general surgery 6. Kidney transplant recipient (Z94.0: Kidney transplant status) Continue with tacrolimus and azathioprine 7. Chronic GERD (K21.9: Gastro-esophageal reflux disease without esophagitis) PPI 8. Hypertension (I10: Essential (primary) hypertension) monitor diltiazem 180mg daily 9. Atrial fibrillation (I48.91: Unspecified atrial fibrillation) holding eliquis due to #3 rate control with diltiazem 180mg daily 10. 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 This gentleman seems to have another urinary tract infection. 2. He has some bladder outlet obstructive symptoms despite daily Flomax. 3. He has gross hematuria after starting a new blood thinner about a week ago. This may be from the blood thinner but it also may be from a urinary infection. Plan: #1. Once his IV gets placed I would start broad-spectrum antibiotics. If this is a big problem, I would consider starting oral doxycycline. 2. I would check a postvoid residual to make sure he is emptying satisfactorily. 3. I would increase his Flomax to twice daily. 4. I would keep him off of blood thinners until his hematuria subsides. Over 30 minutes of clinical time was spent talking with the patient and and reviewing his chart. Thank you for letting me take part in his care. Extracted from: Title:APSO Note Author:Hernandez Freitas DO Juan Miguel e:03/15/23 1. Hyponatremia (E87.1: Hypo -osmolality and hyponatremia) Na is 124 from 123 Urine Na is 20 showing likely hypovolemia trend q4hr IVF check Urine Na again Ordered: Sbsq Hospital Care/Day Moderate 35 Minutes 20015 2. Acute UTI (N39.0: Urinary tract infection, site not specified) Patient given fosfomycin 3 g p.o. x 1 dose will await urine cultures due to multiple abx allergies so far UCx negative 3. Hematuria (R31.9: Hematuria, unspecified) Hold Eliquis Monitor hemoglobin Consult urology 4. Colostomy status (Z93.3: Colostomy status) Stable, functioning Follow-up as outpatient with general surgery 5. Cholecystostomy care (Z43.4: Encounter for attention to other artificial openings of digestive tract) Stable, functioning Follow-up with general surgery 6. Kidney transplant recipient (Z94.0: Kidney transplant status) Continue with tacrolimus and azathioprine 7. Chronic GERD (K21.9: Gastro-esophageal reflux disease without esophagitis) PPI 8. Hypertension (I10: Essential (primary) hypertension) monitor diltiazem 180mg daily 9. Atrial fibrillation (I48.91: Unspecified atrial fibrillation) holding eliquis due to #3 rate control with diltiazem 180mg daily 10. On deep vein thrombosis (DVT) prophylaxis (Z79.899: Other [place] [facility] (current) drug therapy) holding due to hematuria Orders: Add on Test Basic Metabolic Panel CBC w/ Auto Diff Consult to Urology Consult to Wound Care Osmolality Urine Sodium Level Urine Strict Intake and Output Addendum by Dao Freitas DO, am on March 15, 2023 13:45:02 EST Nurses paged me stating that multiple nurses have tried with ultrasound to get IV but were unable to. I went in and was able to put 20-gauge left upper arm using ultrasound. Extracted from: Title:Admission H & P Author:Wade MILTON DO Date:03/14/23 1. Hyponatremia (E87.1: Hypo -osmolality and hyponatremia) Patient has been told he has low sodium in the past. He does not know his baseline sodium level. Our computer record only has results from January 2023. At that time it ranged from 123 131. I suspect this may be contributing to patient's weakness. Will gently hydrate with 0.9 normal saline and check sodium levels every 4 hours. 2. Acute UTI (N39.0: Urinary tract infection, site not specified) Patient was given fosfomycin 3 g p.o. x 1 dose. Will await urine culture results. 3. Hematuria (R31.9: Hematuria, unspecified) Patient was recently started on DOAC for paroxysmal atrial fibrillation. Suspect this may be cause of patient's hematuria versus UTI. Will await culture results. Hold DOAC and aspirin at this time. Patient currently voiding spontaneously. If patient has any urinary retention will place Bowers and start continuous bladder irrigation. Patient follows with urology at [facility] as an outpatient. 4. Colostomy status (Z93.3: Colostomy status) Colostomy appears to be functioning at this time. Follow-up with outpatient general surgery as previously indicated. 5. Cholecystostomy care (Z43.4: Encounter for attention to other artificial openings of digestive tract) Cholecystostomy appears to be functioning well at this time. Will add liver function tests. Otherwise follow-up with general surgery as previously indicated. 6. Kidney transplant recipient (Z94.0: Kidney transplant status) Will continue patient's outpatient antirejection medication protocol. 7. Chronic GERD (K21.9: Gastro-esophageal reflux disease without esophagitis) Continue PPI 8. Hypertension (I10: Essential (primary) hypertension) Hydralazine iv prn. see orders. 9. Atrial fibrillation (I48.91: Unspecified atrial fibrillation) Currently normal sinus rhythm. 10. On deep vein thrombosis (DVT) prophylaxis (Z79.899: Other [place] [facility] (current) drug therapy) SCD, early ambulation. Orders: acetaminophen, 650 mg = 2 tab(s), Tab, Oral, q6hr PRN Pain, Routine, Start date 03/14/23 21:37:00 EST, 03/14/23 21:37:00 EST atorvastatin, 40 mg = 1 tab(s), Tab, Oral, Daily, Routine, Start date 03/15/23 9:00:00 EST, 03/14/23 21:32:00 EST azathioprine, 50 mg = 1 tab(s), Tab, Oral, Daily, Routine, Start date 03/15/23 9:00:00 EST, 03/14/23 21:32:00 EST diltiazem, 180 mg = 1 cap(s), Cap-ER, Oral, Daily, Routine, Start date 03/15/23 9:00:00 EST, 03/14/23 21:33:00 EST diphenhydrAMINE, 25 mg = 1 cap(s), Cap, Oral, q6hr PRN Itching, Routine, Start date 03/14/23 21:37:00 EST, 03/14/23 21:37:00 EST flecainide, 50 mg = 0.5 tab(s), Tab, Oral, TID, NOW, Start date 03/14/23 21:33:00 EST, 03/14/23 21:33:00 EST hydrALAZINE, 10 mg = 0.5 mL, Injection, IV Push, q6hr PRN Other (see comment), Routine, Start date 03/14/23 21:37:00 EST, 03/14/23 21:37:00 EST ondansetron, 4 mg = 2 mL, Injection, IV Push, q6hr PRN Nausea, Routine, Start date 03/14/23 21:37:00 EST, 03/14/23 21:37:00 EST pantoprazole, 40 mg = 1 tab(s), Tab-DR, Oral, Daily, Routine, Start date 03/15/23 9:00:00 EST, 03/14/23 21:33:00 EST predniSONE, 5 mg = 1 tab(s), Tab, Oral, Daily, Routine, Start date 03/15/23 9:00:00 EST, 03/14/23 21:33:00 EST ropinirole, 1 mg = 1 tab(s), Tab, Oral, Bedtime, Routine, Start date 03/15/23 21:00:00 EST, 03/14/23 21:33:00 EST Sodium Chloride 0.9% intravenous solution 1,000 mL, 1,000 mL, IV, 75 mL/hr, Routine, Start date 03/14/23 21:37:00 EST, 13.3 hour(s), Total volume (mL): 1,000, 98.2 kg, 2.19, m2 tacrolimus, 1 mg = 1 cap(s), Cap, Oral, BID, NOW, Start date 03/14/23 21:44:00 EST, 03/14/23 21:44:00 EST Ambulate with Assistance Basic Metabolic Panel Below the Knee Intermittent Pneumatic Compression Device Cardiac Monitoring Intake and Output Magnesium Level Notify Provider Vital Signs Notify Provider Vital Signs Oxygen Protocol Place in Status Precautions Regular Diet Resuscitation Status - Full Sodium Level Vital Signs Weight Anticipated stay greater than 2 midnights due to above Extracted from: Title:ED Note Author:Gena Garzon DO Date:1 Acute UTI (N39.0: Urinary tr act infection, site not specified) Hematuria (R31.9: Hematuria, unspecified) Hyponatremia (E87.1: Hypo-osmolality and hyponatremia) Orders: Sodium Chloride 0.9% intravenous solution 1,000 mL, 1,000 mL, IV, 100 mL/hr, STAT, Start date 03/14/23 18:14:00 EST, 10 hour(s), Total volume (mL): 1,000, 98.2 kg, 2.19, m2 Add on Test Automated Diff Basic Metabolic Panel CBC w/ Auto Diff eGFR Morphology Osmolality Urine PT & PTT Sodium Level Urine UA With Cult Reflex Urine Culture Addendum by Yaneth Lee DO on March 14, 2023 19:29:34 EST Patient signed out pending admission. Discussed case with the hospitalist who accepts the patient for admission. Addendum by Gena Garzon DO on March 15, 2023 15:37:49 EST Case was discussed with the [facility] pharmacist who is on-call. Patient had recent aspirate culture from a gallbladder that grew significantly multidrug-resistant E. coli. His urine culture in early February at [facility] was negative. His previous urine culture was also negative. He has not recently been treated for urinary tract infection. 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 A single dose of fosfomycin was ordered for the patient. Gena Garzon DO, FAAEM Future Scheduled Tests Laboratory* Tacrolimus Lvl 02/10/23 * CBC w/ Auto Diff 02/10/23 * Comprehensive Metabolic Panel 02/10/23 [facility]01-04-2024 Hospital Discharge instructions Patient Education 03/18/2023 10:15:14 Hyponatremia, [id number] Hyponatremia Hyponatremia is when the amount of salt (sodium) in your blood is too low. When salt levels are low, your body cells may take in extra water. This can cause swelling. The swelling often affects the brain. What are the causes? Certain medical problems or conditions. Vomiting a lot. Having watery poop (diarrhea) often. Sweating too much. Taking certain medicines or using illegal drugs. Fluids given through an IV tube. What increases the risk? Having heart, kidney, or liver failure. Having a medical condition that causes you to have watery poop a lot. Doing very hard exercises. Taking medicines that affect the amount of salt that is in your blood. What are the signs or symptoms? Symptoms of this condition include: Headache. Feeling like you may vomit (nausea). Vomiting. Being very tired. Muscle weakness and cramps. Not wanting to eat as much as normal. Feeling weak or dizzy. Very bad symptoms of this condition include: Confusion. Feeling restless. Having a fast heart rate. Fainting. Seizures. Coma. How is this treated? Treatment for this condition depends on the cause. Treatment may include: Getting fluids through an IV tube that is put into one of your veins. Taking medicines to fix the salt levels in your blood. If medicines are causing the problem, your medicines will need to be changed. Limiting how much water or fluid you take in, in some cases. Monitoring in the hospital to watch your symptoms. Follow these instructions at home: Take [id number] and prescription medicines only as told by your doctor. Many medicines can make this condition worse. Talk with your doctor about any medicines that you are taking. Do not drink alcohol. Keep all follow-up visits. Contact a doctor if: You feel more like you may vomit. You feel more tired. Your headache gets worse. You feel more confused. You feel weaker. Your symptoms go away and then they come back. Get help right away if: You have a seizure. You faint. You keep having watery poop. You keep vomiting. Summary Hyponatremia is when the amount of salt in your blood is too low. When salt levels are low, you can have swelling throughout the body. The swelling mostly affects the brain. Treatment depends on the cause. Treatment may include IV fluids and changing medicines. This information is not intended to replace advice given to you by your health care provider. Make sure you discuss any questions you have with your health care provider. Document Revised: 09/09/2021 Document Reviewed: 09/09/2021 [employer] Patient Education 2022 [employer]. Follow Up Care 03/14/2023 15:52:49 With:JAYDEN KNIGHT, Ruth Ann Reese, URL Address: [facility] [address], [place] [address]- When:1 to 2 weeks Comments:Call for followup appointment With:follow up with electrician telephone Address: When:1 to 2 weeks With:KAMRON KNIGHT, AISHWARYA Rodriguez, [facility] Address: [address] [place] [address] [place] [address]- When: Unknown [facility]01-04-2024 NoteMary[facility] HospitalComment on above:Result Comment: Electronically Signed By: Hernandez Freitas DO\.br\Date and Time Signed: 03/18/23 11:11 [id number] NoteCRM entered the room to discuss dc planning. PCP, DME and insurance discussed. Patient is alert andinvolved in plan of care. Contact information given and whiteboard updated. Pt has continuously refused HH or SNF. Plan to dc today. Squad transport.[facility] HospitalComment on above:Result Comment: Electronically Signed By: Madeline Edmondson\.br\Date and Time Signed: 03/18/23 11:08 [id number] Note [facility] HospitalComment on above:Result Comment: Electronically Signed By: Wade MILTON DO\.br\Date and Time Signed: 03/14/23 21:57 EST 03-06-2023 History of Present illness Narrative* Brett Mendez MD - 03/06/2023 9:55 AM EST Jagruti Esparza is a 67 y.o. male on day 9 of admission presenting with Right upper quadrant abdominal pain. Subjective NAEO, VSS. Endorses minimal pain at RFA site. Denies fever, chills, SOB, CP, N/V. Awaiting transport for discharge Objective Visit Vitals BP 158/59 Pulse 87 Temp 37.1 C (98.8 F) Resp 16 Ht 1.803 m (5' 10.98 ) Wt 86.1 kg (189 lb 13.1 oz) SpO2 95% BMI 26.49 kg/m Smoking Status Never BSA 2.08 m Physical Exam Constitutional: General: He is not in acute distress. HENT: Head: Normocephalic and atraumatic. Eyes: Extraocular Movements: Extraocular movements intact. Pupils: Pupils are equal, round, and reactive to light. Cardiovascular: Rate and Rhythm: Normal rate and regular rhythm. Pulses: Normal pulses. Heart sounds: Normal heart sounds. Comments: RUE AVF with palpable thrill Pulmonary: Effort: Pulmonary effort is normal. Breath sounds: Normal breath sounds. Abdominal: General: Abdomen is flat. Bowel sounds are normal. There is distension. Palpations: Abdomen is soft. Tenderness: There is abdominal tenderness (RFA site, no edema or bleeding). Comments: RUQ PCT with biliary output, LLQ colostomy with brown solid output, stoma pink Musculoskeletal: General: Normal range of motion. Right lower leg: No edema. Left lower leg: No edema. Skin: General: Skin is warm and dry. Capillary Refill: Capillary refill takes less than 2 seconds. Neurological: General: No focal deficit present. Mental Status: He is alert and oriented to person, place, and time. Intake/Output last 3 Shifts: I/O last 3 completed shifts: In: 600 (7 mL/kg) [P.O.:600] Out: 2375 (27.6 mL/kg) [Urine:2275 (0.7 mL/kg/hr); Stool:100] Dosing Weight: 86.1 kg Lab Results Component Value Date WBC 7.7 03/05/2023 HGB 9.5 (L) 03/05/2023 HCT 30.2 (L) 03/05/2023 PLT 334 03/05/2023 ALT 9 (L) 02/25/2023 AST 27 02/25/2023 NA 130 (L) 03/05/2023 K 5.1 03/05/2023 CL 103 03/05/2023 CREATININE 0.63 03/05/2023 BUN 11 03/05/2023 CO2 21 03/05/2023 INR 1.3 (H) 02/27/2023 Scheduled medications apixaban, 5 mg, oral, q12h aspirin, 81 mg, oral, Daily atorvastatin, 40 mg, oral, Nightly azaTHIOprine, 50 mg, oral, Daily dilTIAZem XR, 180 mg, oral, Daily empagliflozin, 10 mg, oral, Daily magnesium oxide, 800 mg, oral, Daily metoprolol, 5 mg, intravenous, Once metoprolol tartrate, 100 mg, oral, Once metoprolol tartrate, 100 mg, oral, Once pantoprazole, 40 mg, oral, Daily before breakfast polyethylene glycol, 17 g, oral, Daily predniSONE, 5 mg, oral, Daily rOPINIRole, 1 mg, oral, Nightly sodium chloride 0.9%, 10 mL, intra-catheter, q12h sodium zirconium cyclosilicate, 5 g, oral, Once sulfamethoxazole-trimethoprim, 1 tablet, oral, q AM tacrolimus, 0.5 mg, oral, BID tamsulosin, 0.4 mg, oral, Daily Continuous medications PRN medications PRN medications: acetaminophen, alteplase, benzocaine-menthol, benzonatate, dextrose 10 % in water (D10W), dextrose 10 % in water (D10W), dextrose, dextrose, glucagon, glucagon, oxyCODONE, oxyCODONE,sodium chloride, sodium chloride 0.9% Assessment/Plan Principal Problem: Right upper quadrant abdominal pain Active Problems: Sepsis (CMS/HCC) NSTEMI (non-ST elevated myocardial infarction) (CMS/[facility]) Jagruti Esparza is a 67M with PMH of diverticulitis s/p sigmoid resection with end colostomy (01/2023), R kidney transplant (2012) on immunosuppressive therapy, pAfib/flutter on diltiazem/flecainide noton AC, chronic anemia, restless leg syndrome who was transferred from OSH on 02/24/23 for acute cholecystitis. Managed with PCT 02/25 due to troponemia, aspirate culture with MDR E Coli, required postop pressors. Transferred to medicine floor. Underwent LHC 03/02, which showed LAD VARIETY SAW OPERATOR, no intervention. UPDATES : - Dispo to home, patient has home nurse. Discharge planned for today #Troponemia #CAD :: Trops [id number] - Given labs and EKG changes (reduced R wave progression), cannot rule out NSTEMI - TTE 02/25 LVEF 50-55%, RSVP 39.5, mild - Cards on board, LHC 03/02 showing LAD VARIETY SAW OPERATOR, no intervention - ASA 81, atorvastatin, s/p heparin gtt for NSTEMI treatment #pAfib/flutter #HTN :: Previously not on AC ISO GIB 2/2 diverticulosis, now s/p sigmoid resection - CHADSVASC 2 - Continue home diltiazem 180mg since now off pressors - Stop home flecainide per EP since patient has been in NSR this admission - Eliquis 5mg BID #Cholecystitis #Septic shock, resolved :: S/p empiric vanc/azithro in ED - PCT with IR 02/25 with pressors x2 days - Aspirate/fluid culture 02/25 +MDR E coli, BCx/UCx NGTD - ID on board, aztreonam/Flagyl 02/25-02/27, meropenem 02/27-03/01 - Patient to follow up with [facility] in 1 month for PCT study #R kidney transplant (2012) on immunosuppressive therapy :: Baseline Cr 0.6-0.8 - Transplant nephro on board - Continue home tacro 0.5mg q12h with daily level, prednisone 5mg, Bactrim - Restart azathioprine 50mg now that leukocytosis resolved and s/p abx for +MDR E coli fluid culture #Chronic anemia :: Admission Hb 10.9 - Daily CBC, active T+S, transfuse Hb<7 #BPH #Acute urinary retention, resolved - Continue home tamsulosin 0.4mg - Bowers placed by urology 02/26-03/01 #Stage 2 sacral decubitus ulcers - Wound care recs: Triad wound dressing cream + Mepilex BID and PRN with clean-ups #Restless leg syndrome - Continue home ropinirole 1mg QHS F: PRN E: K>4, Mg>2 N: regular A: PIV, RUE AVF GI ppx: pantoprazole DVT ppx: Eliquis 5 BID CODE STATUS: full code (confirmed on admission) NOK: Richa (spouse) [phone] Associated attestation - Ruth Ann Griffin MD - 03/06/2023 12:30 PM EST I saw and evaluated the patient. I personally obtained the florez and critical portions of the historyand physical exam or was physically present for florez and critical portions performed by the resident/fellow. I reviewed the resident/fellow's documentation and discussed the patient with the resident/curt fletcher. I agree with the resident/fellow's medical decision making as documented in the note with the exception/addition of the following: Home once transport available. * Elsy Plummer RN - 03/05/2023 12:34 PM EST 03/05/23 1234 Transitional Mechanical Maintenance Technician Notes: Patient will discharge to home today. Final home care orders sent to [facility]. Transportation is set for 6:30 pm via [facility]. The spouse will transport with the patient. [facility] was unable to transport patient home yesterday, updated transport time is now for Tuesday 03/06 at 4 pm. Assessment/Plan Principal Problem: Right upper quadrant abdominal pain Active Problems: Sepsis ([facility]/HCC) NSTEMI (non-ST elevated myocardial infarction) ([facility]) Discharge Plans: discharge home with home care Elsy Plummer RN * Stepan Lovell, PT - 03/05/2023 11:40 AM EST Physical Therapy Therapy Communication Note Patient Name: Jagruti Esparza Today's Date: 03/05/2023 Discipline: Physical Therapy Missed Visit Reason: pt declined therapy this date Missed Time: Attempt Comment: * Se Rivas MD - 03/05/2023 7:09 AM EST Jagruti Esparza is a 67 y.o. male on day 8 of admission presenting with Right upper quadrant abdominal pain. Subjective NAEO, VSS. Endorses minimal pain at RFA site. Denies fever, chills, SOB, CP, N/V. Objective Visit Vitals BP 121/51 Pulse 89 Temp 37 C (98.6 F) Resp 15 Ht 1.803 m (5' 10.98 ) Wt 86.1 kg (189 lb 13.1 oz) SpO2 96% BMI 26.49 kg/m Smoking Status Never BSA 2.08 m Physical Exam Constitutional: General: He is not in acute distress. HENT: Head: Normocephalic and atraumatic. Eyes: Extraocular Movements: Extraocular movements intact. Pupils: Pupils are equal, round, and reactive to light. Cardiovascular: Rate and Rhythm: Normal rate and regular rhythm. Pulses: Normal pulses. Heart sounds: Normal heart sounds. Comments: RUE AVF with palpable thrill Pulmonary: Effort: Pulmonary effort is normal. Breath sounds: Normal breath sounds. Abdominal: General: Abdomen is flat. Bowel sounds are normal. There is distension. Palpations: Abdomen is soft. Tenderness: There is abdominal tenderness (RFA site, no edema or bleeding). Comments: RUQ PCT with biliary output, LLQ colostomy with brown solid output, stoma pink Musculoskeletal: General: Normal range of motion. Right lower leg: No edema. Left lower leg: No edema. Skin: General: Skin is warm and dry. Capillary Refill: Capillary refill takes less than 2 seconds. Neurological: General: No focal deficit present. Mental Status: He is alert and oriented to person, place, and time. Intake/Output last 3 Shifts: I/O last 3 completed shifts: In: - (0 mL/kg) Out: 2049 (23.8 mL/kg) [Urine:1800 (0.6 mL/kg/hr); Drains:150; Stool:100] Dosing Weight: 86.1 kg Lab Results Component Value Date WBC 7.2 03/04/2023 HGB 9.4 (L) 03/04/2023 HCT 29.8 (L) 03/04/2023 PLT 287 03/04/2023 ALT 9 (L) 02/25/2023 AST 27 02/25/2023 NA 130 (L) 03/04/2023 K 5.5 (H) 03/04/2023 CL 101 03/04/2023 CREATININE 0.49 (L) 03/04/2023 BUN 11 03/04/2023 CO2 22 03/04/2023 INR 1.3 (H) 02/27/2023 Scheduled medications apixaban, 5 mg, oral, q12h aspirin, 81 mg, oral, Daily atorvastatin, 40 mg, oral, Nightly azaTHIOprine, 50 mg, oral, Daily dilTIAZem XR, 180 mg, oral, Daily empagliflozin, 10 mg, oral, Daily magnesium oxide, 800 mg, oral, Daily metoprolol, 5 mg, intravenous, Once metoprolol tartrate, 100 mg, oral, Once metoprolol tartrate, 100 mg, oral, Once pantoprazole, 40 mg, oral, Daily before breakfast polyethylene glycol, 17 g, oral, Daily predniSONE, 5 mg, oral, Daily rOPINIRole, 1 mg, oral, Nightly sodium chloride 0.9%, 10 mL, intra-catheter, q12h sodium zirconium cyclosilicate, 5 g, oral, Once sulfamethoxazole-trimethoprim, 1 tablet, oral, q AM tacrolimus, 0.5 mg, oral, BID tamsulosin, 0.4 mg, oral, Daily Continuous medications PRN medications PRN medications: acetaminophen, alteplase, benzocaine-menthol, benzonatate, dextrose 10 % in water (D10W), dextrose 10 % in water (D10W), dextrose, dextrose, glucagon, glucagon, oxyCODONE, oxyCODONE,sodium chloride, sodium chloride 0.9% Assessment/Plan Principal Problem: Right upper quadrant abdominal pain Active Problems: Sepsis (CMS/HCC) NSTEMI (non-ST elevated myocardial infarction) (CMS/HCC) Jagruti Esparza is a 67M with PMH of diverticulitis s/p sigmoid resection with end colostomy (01/2023), R kidney transplant (2012) on immunosuppressive therapy, pAfib/flutter on diltiazem/flecainide noton AC, chronic anemia, restless leg syndrome who was transferred from OSH on 02/24/23 for acute cholecystitis. Managed with PCT 02/25 due to troponemia, aspirate culture with MDR E Coli, required postop pressors. Transferred to medicine floor. Underwent LHC 03/02, which showed LAD VARIETY SAW OPERATOR, no intervention. UPDATES 03/05: - Tolerating Eliquis well today - Dispo to home, patient has home nurse #Troponemia #CAD :: Trops [id number] - Given labs and EKG changes (reduced R wave progression), cannot rule out NSTEMI - TTE 02/25 LVEF 50-55%, RSVP 39.5, mild - Cards on board, [facility] 03/02 showing LAD VARIETY SAW OPERATOR, no intervention - ASA 81, atorvastatin, s/p heparin gtt for NSTEMI treatment #pAfib/flutter #HTN :: Previously not on AC ISO GIB 2/2 diverticulosis, now s/p sigmoid resection - CHADSVASC 2 - Continue home diltiazem 180mg since now off pressors - Stop home flecainide per EP since patient has been in NSR this admission - Start Eliquis 5mg BID #Cholecystitis #Septic shock, resolved :: S/p empiric vanc/azithro in ED - PCT with IR 02/25 with pressors x2 days - Aspirate/fluid culture 02/25 +MDR E coli, BCx/UCx NGTD - ID on board, aztreonam/Flagyl 02/25-02/27, meropenem 02/27-03/01 - Patient to follow up with ACS in 1 month for PCT study #R kidney transplant (2012) on immunosuppressive therapy :: Baseline Cr 0.6-0.8 - Transplant nephro on board - Continue home tacro 0.5mg q12h with daily level, prednisone 5mg, Bactrim - Restart azathioprine 50mg now that leukocytosis resolved and s/p abx for +MDR E coli fluid culture #Chronic anemia :: Admission Hb 10.9 - Daily CBC, active T+S, transfuse Hb<7 #BPH #Acute urinary retention, resolved - Continue home tamsulosin 0.4mg - Bowers placed by urology 02/26-03/01 #Stage 2 sacral decubitus ulcers - Wound care recs: Triad wound dressing cream + Mepilex BID and PRN with clean-ups #Restless leg syndrome - Continue home ropinirole 1mg QHS F: PRN E: K>4, Mg>2 N: regular A: PIV, RUE AVF GI ppx: pantoprazole DVT ppx: Eliquis 5 BID CODE STATUS: full code (confirmed on admission) NOK: Richa (spouse) [phone] * Madeleine Leslie RN - 03/04/2023 8:06 PM EST Images from the original note were not included. Wound Care Progress Note Visit Date: 03/04/2023 Patient Name: Jagruti Esparza Reason for Visit: ostomy care Wound History: Patient with a PMH paroxysmal atrial flutter/fibrillation not on AC, mild aortic stenosis, renal transplant 2012, and and colostomy for diverticulitis 01/2013 who presented from outside hospital with concerns for cholecystitis found to have acute acalculous cholecystitis s/p IR placement of percutaneous cholecystostomy tube on 02/25. Pertinent Labs: Albumin Date Value Ref Range Status 03/04/2023 2.2 (L) 3.4 - 5.0 g/dL Final Wound Assessment: Stoma Type: End Colostomy George: No Diameter: 1 05/20 Location: RUQ Protrusion: Budded Mucosal Condition and Color: pink, moist Mucocutaneous Junction: Intact Peristomal Skin: Clear, intact Location of Skin Impairment: n/a Peristomal Contour: Rounded Supportive Tissue: Semi-Soft Character of Output: Brown and Formed Stool Emptying Frequency: PRN Removed/Current Pouching System: one piece drainable pouch Current Wearing Time: 3 Days Recommendations: Skin Care: Gently remove pouch with adhesive remover, cleanse peristomal skin/stoma, apply Cavilon Pouching System: One piece drainable pouch with filter Wear Time: 3 Days Other: Additional supplies ordered for discharge NEW Closed/Suction Drain Lateral RUQ 8 Fr. (Active) Placement Date/Time: 02/25/23 0515 Placed by: Dr. Man Hand Hygiene Completed: Yes Tube Number:1 Orientation: Lateral Location: RUQ Drain Tube Type: (c) Size (Fr.): 8 Fr. Number of days: 7 Colostomy Other LLQ (Active) Placement Date/Time: 01/15/23 1124 Placed by: MD Pedro Hand Hygiene Completed: Yes Colostomy Type: (c) Other Location: LLQ Stoma Size (cm): 4.5 cm Number of days: 48 External Urinary Catheter Male (Active) Placement Date/Time: 03/01/23 1335 External Catheter Type: Male Number of days: 3 Closed/Suction Drain Lateral RUQ 8 Fr. (Active) Site Description Other (Comment) 03/04/23 1219 Dressing Status Dry;Clean 03/04/23 1219 Drainage Appearance Bile 02/28/23 1600 Status Open to gravity drainage 02/28/23 1600 Output (mL) 150 mL 03/04/23 1042 Intake (ml) 0 ml 02/27/231999 Colostomy Other LLQ (Active) Stomal Appliance 1 piece 03/04/231999 Site/Stoma Assessment [place] 03/04/231999 Peristomal Assessment Intact 03/04/231999 Treatment Pouch change 03/04/231999 Drainage Characteristics Brown 03/04/231999 Output (mL) 100 mL 03/04/231999 External Urinary Catheter Male (Active) Collection Container Standard drainage bag 03/04/23 1455 Output (mL) 500 mL 03/04/23 1455 Wound 01/14/23 Pressure Injury Buttocks Left (Active) Date First Assessed/Time First Assessed: 01/14/23 2100 Present on Original Admission: Yes Hand Hygiene Completed: Yes Primary Wound Type: Pressure Injury Location: Buttocks Wound Location Orientation: Left Number of days: 49 Wound 01/15/23 Incision Umbilicus (Active) Date First Assessed/Time First Assessed: 01/15/23 1020 Present on Original Admission: No Primary Wound Type: (c) Incision Location: Umbilicus Number of days: 48 Wound 01/18/23 Pressure Injury Buttocks Right (Active) Date First Assessed: 01/18/23 Present on Original Admission: Yes Hand Hygiene Completed: Yes Primary Wound Type: Pressure Injury Location: Buttocks Wound Location Orientation: Right Number of days: 45 Wound 02/25/23 Pressure Injury Sacrum Left;Medial;Right (Active) Date First Assessed/Time First Assessed: 02/25/23 1542 Present on Original Admission: Yes Hand Hygiene Completed: Yes Primary Wound Type: Pressure Injury Location: Sacrum Wound Location Orientation: Left;Medial;Right Number of days: 7 Wound 01/14/23 Pressure Injury Buttocks Left (Active) Site Assessment Unable to assess 02/27/23 1600 Afsaneh-Wound Assessment Unable to assess 02/27/23 1600 Drainage Description None 02/28/23 0800 Drainage Amount None 02/28/23 0800 Dressing Status Dry;Clean 03/03/23 0921 Wound 01/15/23 Incision Umbilicus (Active) Wound 01/18/23 Pressure Injury Buttocks Right (Active) Site Assessment Unable to assess 02/27/23 1600 Afsaneh-Wound Assessment Unable to assess 02/27/23 1600 Drainage Description None 02/28/23 0800 Drainage Amount None 02/28/23 0800 Dressing Status Clean;Dry 03/03/23 0921 Wound 02/25/23 Pressure Injury Sacrum Left;Medial;Right (Active) Wound Image 02/25/23 1543 Site Assessment Unable to assess 02/27/23 1600 Afsaneh-Wound Assessment Unable to assess 02/27/23 1600 Pressure Injury Stage 2 03/01/23 0914 Drainage Description None 02/28/23 0800 Drainage Amount None 02/28/23 0800 Dressing Protective barrier 03/01/23 0914 Dressing Changed New 02/25/23 1543 Dressing Status Clean;Dry 03/03/23 0921 Wound Team Plan: Wound/ Ostomy Team will follow ,[facility] 03/04/2023 8:06 PM * Hailee Moe APRN-ASPHALT SCREED OPERATOR - 03/04/2023 2:27 PM EST Subjective Data: SR 90s Denies CP/ SOB/dizziness, palpitations LHC with LAD VARIETY SAW OPERATOR Feeling better today - wanted to go home today but eliquis will be started today and patient watched and most likely discharge tomorrow Last Recorded Vitals: Vitals: 03/04/23 0628 03/04/23 0629 03/04/23 0815 03/04/23 1158 BP: 162/73 153/61 143/64 137/61 BP Location: Left arm Other (Comment) Pulse: 101 100 100 90 Resp: Temp: 37.1 C (98.8 F) 37.1 C (98.8 F) TempSrc: SpO2: 95% 96% Weight: Height: Last Labs: CBC - 03/04/2023: 5:48 AM 7.2 9.4 287 29.8 CMP - 03/04/2023: 5:48 AM 9.4 5.9 27 --- 0.9 2.2 2.2 9 89 PTT - 02/26/2023: 2:19 PM 1.3 14.5 30 TROPHS Date/Time Value Ref Range Status 02/25/2023 06:48 AM 5,973 0 - 53 ng/L Final Comment: Previous result verified on 02/24/2023 2242 on specimen/case [id number] called with component TRPHS for procedure Troponin I, High Sensitivity with value 6,669 ng/L. 02/24/2023 11:18 PM 6,518 0 - 53 ng/L Final Comment: Previous result verified on 02/24/2023 2242 on specimen/case [id number] called with component TRPHS for procedure Troponin I, High Sensitivity with value 6,669 ng/L. 02/24/2023 09:57 PM 6,669 0 - 53 ng/L Final BNP Date/Time Value Ref Range Status 02/24/2023 09:57 PM 1,234 0 - 99 pg/mL Final Last I/O: I/O last 3 completed shifts: In: 360 (4.2 mL/kg) [P.O.:360] Out: 1925 (22.4 mL/kg) [Urine:1850 (0.6 mL/kg/hr); Drains:75] Dosing Weight: 86.1 kg Past Cardiology Tests (Last 3 Years): Echo: Transthoracic Echo (TTE) Limited 02/25/2023 Ejection Fractions: EF Date/Time Value Ref Range Status 02/25/2023 11:11 AM 54 Inpatient Medications: Scheduled medications Medication Dose Route Frequency apixaban 5 mg oral q12h aspirin 81 mg oral Daily atorvastatin 40 mg oral Nightly azaTHIOprine 50 mg oral Daily dilTIAZem XR 180 mg oral Daily empagliflozin 10 mg oral Daily magnesium oxide 800 mg oral Daily metoprolol 5 mg intravenous Once metoprolol tartrate 100 mg oral Once metoprolol tartrate 100 mg oral Once pantoprazole 40 mg oral Daily before breakfast polyethylene glycol 17 g oral Daily predniSONE 5 mg oral Daily rOPINIRole 1 mg oral Nightly sodium chloride 0.9% 10 mL intra-catheter q12h sodium zirconium cyclosilicate 5 g oral Once sulfamethoxazole-trimethoprim 1 tablet oral q AM tacrolimus 0.5 mg oral BID tamsulosin 0.4 mg oral Daily PRN medications Medication acetaminophen alteplase benzocaine-menthol benzonatate dextrose 10 % in water (D10W) dextrose 10 % in water (D10W) dextrose dextrose glucagon glucagon heparin oxyCODONE oxyCODONE sodium chloride sodium chloride 0.9% Continuous Medications Medication Dose Last Rate Physical Exam: General: chronically ill appearing obese male resting in bed, on room air. NAD HEENT: EOMI, MMM Cardiac: regular rate and rhythm, no murmurs, rubs or gallops Pulmonary: Clear to auscultation anteriorly Extremities: bilateral distal pedal edema, RUE Aneurysm Abd: ostomomy: pink stoma : [place] with dark yellow urine Assessment/Plan 67-year-old male with a PMH paroxysmal atrial flutter/fibrillation not on AC, [id number] (1+ for age) mild aortic stenosis, renal transplant 2012, and and colostomy for diverticulitis 01/2013 who presented from outside hospital with concerns for cholecystitis found to have acute acalculous cholecystitis s/p IR placement of percutaneous cholecystostomy tube on 02/25. Troponins were checked on admission and found to be 6600->6500->5900 with EKG showing poor R wave progression. ASA loaded.Chest pain/pressure freee. Previous echo 08/04 with normal biventricular function and moderately dilated biatria. Repeat echo AM 02/25 in s/o concern for NSTEMI no WMA's, low normal EF 50-55%, normal RV function, and mild . Possible inferior wall hypokinesis. CT chest with severe coronary calcifications. 1. Troponin elevation (6600)/NSTEMI: - s/p LHC --> LAD CTA 2. Paroxysmal atrial fibrillation: On Diltiazem and flecanide at home. Not on anticoagulation due to massive GI bleeding requiring 12 units 6 months ago. In theory, risk of bleeding now decreased since he's post sigmoid resection. [id number] (1+ for age). - Continue home diltiazem 180mg daily. - Consider re challenging patient with heparin drip for primary stroke prevention in s/o AF. : patient started on eliquis today and being watched - EP consult to address Flecainide - currently ok to not be taken - consider outpatient CMR to eval LAD VARIETY SAW OPERATOR to assess for ischemia/infarct/viability to determine appropriayteness of intervening on LAD HFpEF - optimize GDMT - Consider appropriateness of Spironolactone (continues with borderline hyperkalemia) - can be doneas an outpatient - start SGLT2 if not contraindicated Follows with Dr. Hernandez Mark, Cardiology in [facility] - appointment requested for earlier followup by me Will need follow up with cMRI can be done as an outpatient consider outpatient CMR to eval LAD VARIETY SAW OPERATOR to assess for ischemia/infarct/viability to determine appropriayteness of intervening on LAD - please place in discharge summary Cardiology will sign off please call back with any further questions or concerns Hailee Moe CNP Cardiology Consults Please call with any questions Pager [phone] 8a-5p; Wednesday-2p Pager [phone] all other times * Hazel Macias, PT - 03/04/2023 11:47 AM EST Physical Therapy Therapy Communication Note Patient Name: Jagruti Esparza Today's Date: 03/04/2023 Discipline: Physical Therapy Missed Visit: Yes Missed Visit Reason: Patient refused (stated, I'm going to wait to do therapy when I get home ; explained the benefits of PT while in the hospital, but pt refused) 03/04/23 at 11:47 AM Hazel Macias, PT * Se Rivas MD - 03/04/2023 7:05 AM EST Jagruti Esparza is a 67 y.o. male on day 7 of admission presenting with Right upper quadrant abdominal pain. Subjective NAEO, VSS. Endorses minimal pain at RFA site. Denies fever, chills, SOB, CP, N/V. Objective Visit Vitals BP 143/64 Pulse 100 Temp 37.1 C (98.8 F) Resp 15 Ht 1.803 m (5' 10.98 ) Wt 86.1 kg (189 lb 13.1 oz) SpO2 95% BMI 26.49 kg/m Smoking Status Never BSA 2.08 m Physical Exam Constitutional: General: He is not in acute distress. HENT: Head: Normocephalic and atraumatic. Eyes: Extraocular Movements: Extraocular movements intact. Pupils: Pupils are equal, round, and reactive to light. Cardiovascular: Rate and Rhythm: Normal rate and regular rhythm. Pulses: Normal pulses. Heart sounds: Normal heart sounds. Comments: RUE AVF with palpable thrill Pulmonary: Effort: Pulmonary effort is normal. Breath sounds: Normal breath sounds. Abdominal: General: Abdomen is flat. Bowel sounds are normal. There is distension. Palpations: Abdomen is soft. Tenderness: There is abdominal tenderness (RFA site, no edema or bleeding). Comments: RUQ PCT with biliary output, LLQ colostomy with brown solid output, stoma pink Musculoskeletal: General: Normal range of motion. Right lower leg: No edema. Left lower leg: No edema. Skin: General: Skin is warm and dry. Capillary Refill: Capillary refill takes less than 2 seconds. Neurological: General: No focal deficit present. Mental Status: He is alert and oriented to person, place, and time. Intake/Output last 3 Shifts: I/O last 3 completed shifts: In: 360 (4.2 mL/kg) [P.O.:360] Out: 1925 (22.4 mL/kg) [Urine:1850 (0.6 mL/kg/hr); Drains:75] Dosing Weight: 86.1 kg Lab Results Component Value Date WBC 7.2 03/04/2023 HGB 9.4 (L) 03/04/2023 HCT 29.8 (L) 03/04/2023 PLT 287 03/04/2023 ALT 9 (L) 02/25/2023 AST 27 02/25/2023 NA 130 (L) 03/04/2023 K 5.5 (H) 03/04/2023 CL 101 03/04/2023 CREATININE 0.49 (L) 03/04/2023 BUN 11 03/04/2023 CO2 22 03/04/2023 INR 1.3 (H) 02/27/2023 Scheduled medications apixaban, 5 mg, oral, q12h aspirin, 81 mg, oral, Daily atorvastatin, 40 mg, oral, Nightly azaTHIOprine, 50 mg, oral, Daily dilTIAZem XR, 180 mg, oral, Daily empagliflozin, 10 mg, oral, Daily magnesium oxide, 800 mg, oral, Daily metoprolol, 5 mg, intravenous, Once metoprolol tartrate, 100 mg, oral, Once metoprolol tartrate, 100 mg, oral, Once pantoprazole, 40 mg, oral, Daily before breakfast polyethylene glycol, 17 g, oral, Daily predniSONE, 5 mg, oral, Daily rOPINIRole, 1 mg, oral, Nightly sodium chloride 0.9%, 10 mL, intra-catheter, q12h sodium zirconium cyclosilicate, 5 g, oral, Once sulfamethoxazole-trimethoprim, 1 tablet, oral, q AM tacrolimus, 0.5 mg, oral, BID tamsulosin, 0.4 mg, oral, Daily Continuous medications heparin, 0-4,500 Units/hr, Last Rate: 1,549 Units/hr (03/03/23 1839) PRN medications PRN medications: acetaminophen, alteplase, benzocaine-menthol, benzonatate, dextrose 10 % in water (D10W), dextrose 10 % in water (D10W), dextrose, dextrose, glucagon, glucagon, heparin, oxyCODONE, oxyCODONE, sodium chloride, sodium chloride 0.9% Assessment/Plan Principal Problem: Right upper quadrant abdominal pain Active Problems: Sepsis (CMS/HCC) NSTEMI (non-ST elevated myocardial infarction) (CMS/HCC) Jagruti Esparza is a 67M with PMH of diverticulitis s/p sigmoid resection with end colostomy (01/2023), R kidney transplant (2012) on immunosuppressive therapy, pAfib/flutter on diltiazem/flecainide noton AC, chronic anemia, restless leg syndrome who was transferred from OSH on 02/24/23 for acute cholecystitis. Managed with PCT 02/25 due to troponemia, aspirate culture with MDR E Coli, required postop pressors. Transferred to medicine floor. Underwent C 03/02, which showed LAD VARIETY SAW OPERATOR, no intervention. UPDATES 03/04: - Stop flecainide, transition heparin gtt to Eliquis 5mg BID - Dispo to home, patient has home nurse #Troponemia #CAD :: Trops [id number] - Given labs and EKG changes (reduced R wave progression), cannot rule out NSTEMI - TTE 02/25 LVEF 50-55%, RSVP 39.5, mild - Cards on board, LHC 03/02 showing LAD VARIETY SAW OPERATOR, no intervention - ASA 81, atorvastatin, s/p heparin gtt for NSTEMI treatment #pAfib/flutter #HTN :: Previously not on AC ISO GIB 2/2 diverticulosis, now s/p sigmoid resection - CHADSVASC 2 - Continue home diltiazem 180mg since now off pressors - Stop home flecainide per EP since patient has been in NSR this admission - Start Eliquis 5mg BID #Cholecystitis #Septic shock, resolved :: S/p empiric vanc/azithro in ED - PCT with IR 02/25 with pressors x2 days - Aspirate/fluid culture 02/25 +MDR E coli, BCx/UCx NGTD - ID on board, aztreonam/Flagyl 02/25-02/27, meropenem 02/27-03/01 - Patient to follow up with ACS in 1 month for PCT study #R kidney transplant (2012) on immunosuppressive therapy :: Baseline Cr 0.6-0.8 - Transplant nephro on board - Continue home tacro 0.5mg q12h with daily level, prednisone 5mg, Bactrim - Restart azathioprine 50mg now that leukocytosis resolved and s/p abx for +MDR E coli fluid culture #Chronic anemia :: Admission Hb 10.9 - Daily CBC, active T+S, transfuse Hb<7 #BPH #Acute urinary retention, resolved - Continue home tamsulosin 0.4mg - Bowers placed by urology 02/26-03/01 #Stage 2 sacral decubitus ulcers - Wound care recs: Triad wound dressing cream + Mepilex BID and PRN with clean-ups #Restless leg syndrome - Continue home ropinirole 1mg QHS F: PRN E: K>4, Mg>2 N: regular A: PIV, RUE AVF GI ppx: pantoprazole DVT ppx: Eliquis 5 BID CODE STATUS: full code (confirmed on admission) NOK: Richa (spouse) [phone] Associated attestation - Pedro Romero MD - 03/04/2023 2:17 PM EST I saw and evaluated the patient. I personally obtained the florez and critical portions of the historyand physical exam or was physically present for florez and critical portions performed by the resident/fellow. I reviewed the resident/fellow's documentation and discussed the patient with the resident/f chance. I agree with the resident/fellow's medical decision making as documented in the note. * Michelle Marcos, UNLEAVENED DOUGH 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 - 03/03/2023 4:31 PM EST Subjective Data: SR 90s Denies CP/ SOB/dizziness, palpitations LHC with LAD VARIETY SAW OPERATOR Right groin slightly tender yesterday. Feeling better today Last Recorded Vitals: Vitals: 03/03/23 0513 03/03/23 0815 03/03/23 1210 03/03/23 1556 BP: 127/57 125/59 112/52 119/54 BP Location: Left arm Left arm Patient Position: Lying Lying Pulse: 93 91 82 83 Resp: 17 18 19 16 Temp: 37.1 C (98.8 F) 37 C (98.6 F) 37 C (98.6 F) 36.8 C (98.2 F) TempSrc: Temporal Temporal SpO2: 95% 96% 95% 97% Weight: Height: Last Labs: CBC - 03/03/2023: 6:37 AM 7.0 9.9 274 31.4 CMP - 03/03/2023: 6:37 AM 9.5 5.9 27 --- 0.9 1.8 2.2 9 89 PTT - 02/26/2023: 2:19 PM 1.3 14.5 30 TROPHS Date/Time Value Ref Range Status 02/25/2023 06:48 AM 5,973 0 - 53 ng/L Final Comment: Previous result verified on 02/24/20232241 on specimen/case [id number] called with component TRPHS for procedure Troponin I, High Sensitivity with value 6,669 ng/L. 02/24/2023 11:18 PM 6,518 0 - 53 ng/L Final Comment: Previous result verified on 02/24/20232241 on specimen/case [id number] called with component TRPHS for procedure Troponin I, High Sensitivity with value 6,669 ng/L. 02/24/2023 09:57 PM 6,669 0 - 53 ng/L Final BNP Date/Time Value Ref Range Status 02/24/2023 09:57 PM 1,234 0 - 99 pg/mL Final Last I/O: I/O last 3 completed shifts: In: 710 (8.2 mL/kg) [I.V.:10 (0.1 mL/kg); Blood:700] Out: 3130 (36.4 mL/kg) [Urine:2975 (1 mL/kg/hr); Drains:150; Blood:5] Dosing Weight: 86.1 kg Past Cardiology Tests (Last 3 Years): Echo: Transthoracic Echo (TTE) Limited 02/25/2023 Ejection Fractions: EF Date/Time Value Ref Range Status 02/25/2023 11:11 AM 54 Inpatient Medications: Scheduled medications Medication Dose Route Frequency aspirin 81 mg oral Daily atorvastatin 40 mg oral Nightly azaTHIOprine 50 mg oral Daily dilTIAZem XR 180 mg oral Daily enoxaparin 40 mg subcutaneous q24h metoprolol 5 mg intravenous Once metoprolol tartrate 100 mg oral Once metoprolol tartrate 100 mg oral Once nitroglycerin 0.8 mg sublingual Once nitroglycerin 0.8 mg sublingual Once pantoprazole 40 mg oral Daily before breakfast polyethylene glycol 17 g oral Daily predniSONE 5 mg oral Daily rOPINIRole 1 mg oral Nightly sodium chloride 0.9% 10 mL intra-catheter q12h sulfamethoxazole-trimethoprim 1 tablet oral q AM tacrolimus 0.5 mg oral BID tamsulosin 0.4 mg oral Daily PRN medications Medication acetaminophen alteplase benzocaine-menthol benzonatate dextrose 10 % in water (D10W) dextrose 10 % in water (D10W) dextrose dextrose glucagon glucagon LORazepam metoprolol metoprolol metoprolol metoprolol metoprolol tartrate metoprolol tartrate oxyCODONE oxyCODONE sodium chloride sodium chloride 0.9% Continuous Medications Medication Dose Last Rate Physical Exam: General: chronically ill appearing obese male resting in bed, on room air. NAD HEENT: EOMI, MMM Cardiac: regular rate and rhythm, no murmurs, rubs or gallops Pulmonary: Clear to auscultation anteriorly Extremities: bilateral distal pedal edema, RUE Aneurysm Abd: ostomomy: pink stoma, no output : Purwick with dark yellow urine Assessment/Plan 67-year-old male with a PMH paroxysmal atrial flutter/fibrillation not on AC, [id number] (1+ for age) mild aortic stenosis, renal transplant 2012, and and colostomy for diverticulitis 01/2013 who presented from outside hospital with concerns for cholecystitis found to have acute acalculous cholecystitis s/p IR placement of percutaneous cholecystostomy tube on 02/25. Troponins were checked on admission and found to be 6600->6500->5900 with EKG showing poor R wave progression. ASA loaded.Chest pain/pressure freee. Previous echo 08/04 with normal biventricular function and moderately dilated biatria. Repeat echo AM 02/25 in s/o concern for NSTEMI no WMA's, low normal EF 50-55%, normal RV function, and mild . Possible inferior wall hypokinesis. CT chest with severe coronary calcifications. 1. Troponin elevation (6600)/NSTEMI: - s/p LHC --> LAD CTA 2. Paroxysmal atrial fibrillation: On Diltiazem and flecanide at home. Not on anticoagulation due to massive GI bleeding requiring 12 units 6 months ago. In theory, risk of bleeding now decreased since he's post sigmoid resection. [id number] (1+ for age). - Continue home diltiazem 180mg daily. - Consider re challenging patient with heparin drip for primary stroke prevention in s/o AF. - EP consult to address Flecainide (I placed the order and made them aware) - consider outpatient CMR to eval LAD VARIETY SAW OPERATOR to assess for ischemia/infarct/viability to determine appropriayteness of intervening on LAD HFpEF - optimize GDMT - Consider appropriateness of Spironolactone (borderline hyperkalemia) - start SGLT2 if not contraindicated Follows with Dr. Hernandez Mark, Cardiology in [facility] Cardiology will follow Case discussed with Dr. maryana Marcos CNP Cardiology Consults Please call with any questions Pager [phone] - 8a-5p; Wednesday 8a-2p Pager [phone] all other times * Hazel Macias, PT - 03/03/2023 10:48 AM EST Physical Therapy Physical Therapy Treatment Patient Name: Jagruti Esparza Today's Date: 03/03/2023 Time Calculation Start Time: 944 Stop Time: 1008 Time Calculation (min): 24 min Assessment/Plan PT Assessment End of Session Communication: Bedside nurse End of Session Patient Position: Bed, 3 rail up, Alarm off, not on at start of session PT Plan Treatment/Interventions: Bed mobility, Transfer training, Gait training, Balance training, Strengthening, Endurance training, Therapeutic exercise PT Plan: Skilled PT PT Frequency: 3 times per week PT Discharge Recommendations: Moderate intensity level of continued care PT - OK to Discharge: Yes General Visit Information: PT Visit PT Received On: 03/03/23 General Prior to Session Communication: Bedside nurse Patient Position Received: Bed, 3 rail up, Alarm off, not on at start of session Subjective Precautions: Precautions Medical Precautions: Fall precautions Objective Pain: Pain Assessment Pain Assessment: 0-10 Pain Score: 0 - No pain Treatments: Therapeutic Exercise Therapeutic Exercise Performed: Yes Therapeutic Exercise Activity 1: seated BLE x10: AP, LAQ, hip flex, hip abd/add Balance/Neuromuscular Re-Education Balance/Neuromuscular Re-Education Activity Performed: Yes Balance/Neuromuscular Re-Education Activity 1: Pt sat EOB ~15 minutes with CGA/min assist with BUE support; pt leaning posterior at times and required verbal/tactile cues for anterior weight shift Bed Mobility Bed Mobility: Yes Bed Mobility 1 Bed Mobility 1: Supine to sitting Level of Assistance 1: Maximum verbal cues Bed Mobility Comments 1: HOB elevated, use of bed rails, verbal cues for sequencing Bed Mobility 2 Bed Mobility 2: Sitting to supine Level of Assistance 2: Maximum assistance (x2) Bed Mobility Comments 2: verbal cues, use of bed rails Bed Mobility 3 Bed Mobility 3: Rolling left, Scooting Level of Assistance 3: Maximum assistance (x2) Bed Mobility Comments 3: verbal cues Transfers Transfer: (attempted sit to stand with max assist x2, but pt unable to clear bed) Outcome Measures: [facility] Basic Mobility Turning from your back to your side while in a flat bed without using bedrails: A lot Moving from lying on your back to sitting on the side of a flat bed without using bedrails: A lot Moving to and from bed to chair (including a wheelchair): Total Standing up from a chair using your arms (e.g. wheelchair or bedside chair): Total To walk in hospital room: Total Climbing 3-5 steps with railing: Total Basic Mobility - Total Score: 8 Education Documentation Mobility Training, taught by Hazel Macias PT at 03/03/2023 10:47 AM. Learner: Patient Readiness: Acceptance Method: Explanation Response: Verbalizes Understanding Education Comments No comments found. Encounter Problems Encounter Problems (Active) Balance pt will sit EOB >10 minutes with supervision (Progressing) Start: 03/01/23 Expected End: 03/22/23 Mobility STG - Patient will ambulate >5 feet with walker with mod assist (Progressing) Start: 03/01/23 Expected End: 03/22/23 Safety LTG - Patient will adhere to hip precautions during ADL's and transfers Start: 02/26/23 Expected End: 02/28/23 LTG - Patient will demonstrate safety requirements appropriate to situation/environment Start: 02/26/23 Expected End: 02/28/23 LTG - Patient will utilize safety techniques Start: 02/26/23 Expected End: 02/28/23 STG - Patient locks brakes on wheelchair Start: 02/26/23 Expected End: 02/28/23 STG - Patient uses call light consistently to request assistance with transfers Start: 02/26/23 Expected End: 02/28/23 STG - Patient uses gait belt during all transfers Start: 02/26/23 Expected End: 02/28/23 Goal 1 Start: 02/26/23 Expected End: 02/28/23 Goal 2 Start: 02/26/23 Expected End: 02/28/23 Goal 3 Start: 02/26/23 Expected End: 02/28/23 Transfers STG - Patient will perform bed mobility with mod assist (Progressing) Start: 03/01/23 Expected End: 03/22/23 STG - Patient will transfer sit to and from stand with mod assist (Progressing) Start: 03/01/23 Expected End: 03/22/23 03/03/23 at 10:48 AM Hazel Mcaias PT * Saez Janett Rivas MD - 03/03/2023 7:24 AM EST Jagruti Esparza is a 67 y.o. male on day 6 of admission presenting with Right upper quadrant abdominal pain. Subjective NAEO, VSS. Endorses mild pain at RFA site. Denies fever, chills, SOB, CP, N/V. Tolerated LHC well yesterday. Objective Visit Vitals BP 125/59 (BP Location: Left arm, Patient Position: Lying) Pulse 91 Temp 37 C (98.6 F) (Temporal) Resp 18 Ht 1.803 m (5' 10.98 ) Wt 86.1 kg (189 lb 13.1 oz) SpO2 96% BMI 26.49 kg/m Smoking Status Never BSA 2.08 m Physical Exam Constitutional: General: He is not in acute distress. HENT: Head: Normocephalic and atraumatic. Eyes: Extraocular Movements: Extraocular movements intact. Pupils: Pupils are equal, round, and reactive to light. Cardiovascular: Rate and Rhythm: Normal rate and regular rhythm. Pulses: Normal pulses. Heart sounds: Normal heart sounds. Comments: RUE AVF with palpable thrill Pulmonary: Effort: Pulmonary effort is normal. Breath sounds: Normal breath sounds. Abdominal: General: Abdomen is flat. Bowel sounds are normal. There is distension. Palpations: Abdomen is soft. Tenderness: There is abdominal tenderness (RFA site, no edema or bleeding). Comments: RUQ PCT with biliary output, LLQ colostomy with brown solid output, stoma pink Musculoskeletal: General: Normal range of motion. Right lower leg: No edema. Left lower leg: No edema. Skin: General: Skin is warm and dry. Capillary Refill: Capillary refill takes less than 2 seconds. Neurological: General: No focal deficit present. Mental Status: He is alert and oriented to person, place, and time. Intake/Output last 3 Shifts: I/O last 3 completed shifts: In: 710 (8.2 mL/kg) [I.V.:10 (0.1 mL/kg); Blood:700] Out: 3130 (36.4 mL/kg) [Urine:2975 (1 mL/kg/hr); Drains:150; Blood:5] Dosing Weight: 86.1 kg Lab Results Component Value Date WBC 7.0 03/03/2023 HGB 9.9 (L) 03/03/2023 HCT 31.4 (L) 03/03/2023 PLT 274 03/03/2023 ALT 9 (L) 02/25/2023 AST 27 02/25/2023 NA 130 (L) 03/03/2023 K 5.2 03/03/2023 CL 103 03/03/2023 CREATININE 0.52 03/03/2023 BUN 10 03/03/2023 CO2 23 03/03/2023 INR 1.3 (H) 02/27/2023 Scheduled medications aspirin, 81 mg, oral, Daily atorvastatin, 40 mg, oral, Nightly azaTHIOprine, 50 mg, oral, Daily dilTIAZem XR, 180 mg, oral, Daily enoxaparin, 40 mg, subcutaneous, q24h [Held by provider] flecainide, 50 mg, oral, q8h TREMAINE metoprolol, 5 mg, intravenous, Once metoprolol tartrate, 100 mg, oral, Once metoprolol tartrate, 100 mg, oral, Once nitroglycerin, 0.8 mg, sublingual, Once nitroglycerin, 0.8 mg, sublingual, Once pantoprazole, 40 mg, oral, Daily before breakfast polyethylene glycol, 17 g, oral, Every other day predniSONE, 5 mg, oral, Daily rOPINIRole, 1 mg, oral, Nightly sodium chloride 0.9%, 10 mL, intra-catheter, q12h sulfamethoxazole-trimethoprim, 1 tablet, oral, q AM tacrolimus, 0.5 mg, oral, BID tamsulosin, 0.4 mg, oral, Daily Continuous medications PRN medications PRN medications: acetaminophen, alteplase, benzocaine-menthol, benzonatate, dextrose 10 % in water (D10W), dextrose 10 % in water (D10W), dextrose, dextrose, glucagon, glucagon, LORazepam, metoprolol, metoprolol, metoprolol, metoprolol, metoprolol tartrate, metoprolol tartrate, oxyCODONE, oxyCODONE, sodium chloride, sodium chloride 0.9% Assessment/Plan Principal Problem: Right upper quadrant abdominal pain Active Problems: Sepsis (CMS/HCC) NSTEMI (non-ST elevated myocardial infarction) (CMS/HCC) Jagruti Vilma is a 67M with PMH of diverticulitis s/p sigmoid resection with end colostomy (01/2023), R kidney transplant (2012) on immunosuppressive therapy, pAfib/flutter on diltiazem/flecainide noton AC, chronic anemia, restless leg syndrome who was transferred from OSH on 02/24/23 for acute cholecystitis. Managed with PCT 02/25 due to troponemia, aspirate culture with MDR E Coli, required postop pressors. Transferred to medicine floor. Underwent LHC 03/02, which showed LAD VARIETY SAW OPERATOR, no intervention. UPDATES 03/03: - Cards final recs pending for AC ISO afib/flutter and flecainide - Dispo to home, patient has home nurse #Troponemia #CAD :: Trops [id number] - Given labs and EKG changes (reduced R wave progression), cannot rule out NSTEMI - Cards on board, [facility] 03/02 showing LAD VARIETY SAW OPERATOR, no intervention - TTE 02/25 LVEF 50-55%, RSVP 39.5, mild - ASA 81, atorvastatin, s/p heparin gtt for NSTEMI treatment - No therapeutic AC d/t recent PCT, [facility] for now #pAfib/flutter #HTN :: Previously not on AC ISO GIB 2/2 diverticulosis, now s/p sigmoid resection - CHADSVASC 2 - Continue home diltiazem 180mg since now off pressors - Hold home flecainide pending coronary eval as above #Cholecystitis #Septic shock, resolved :: S/p empiric vanc/azithro in ED - PCT with IR 02/25 with pressors x2 days - Aspirate/fluid culture 02/25 +MDR E coli, BCx/UCx NGTD - ID on board, aztreonam/Flagyl 02/25-02/27, meropenem 02/27-03/01 - Patient to follow up with ACS in 1 month for PCT study #R kidney transplant (2012) on immunosuppressive therapy :: Baseline Cr 0.6-0.8 - Transplant nephro on board - Continue home tacro 0.5mg q12h with daily level, prednisone 5mg, Bactrim - Restart azathioprine 50mg now that leukocytosis resolved and s/p abx for +MDR E coli fluid culture #Chronic anemia :: Admission Hb 10.9 - Daily CBC, active T+S, transfuse Hb<9 for LHC #BPH #Acute urinary retention, resolved - Continue home tamsulosin 0.4mg - Bowers placed by urology 02/26-03/01 #Stage 2 sacral decubitus ulcers - Wound care recs: Triad wound dressing cream + Mepilex BID and PRN with clean-ups #Restless leg syndrome - Continue home ropinirole 1mg QHS F: PRN E: K>4, Mg>2 N: regular A: PIV, RUE AVF GI ppx: pantoprazole DVT ppx: LVX 40 CODE STATUS: full code (confirmed on admission) NOK: Richa (spouse) [phone] Associated attestation - Pedro Romero MD - 03/03/2023 1:43 PM EST I saw and evaluated the patient. I personally obtained the florez and critical portions of the historyand physical exam or was physically present for florez and critical portions performed by the resident/fellow. I reviewed the resident/fellow's documentation and discussed the patient with the resident/f chance. I agree with the resident/fellow's medical decision making as documented in the note. * Michelle Marcos, REBEKAH-ASPHALT SCREED OPERATOR - 03/02/2023 2:00 PM EST Subjective Data: SR 90s Denies CP/ SOB/dizziness, palpitations Plan for [facility] today Last Recorded Vitals: Vitals: 03/02/23 1119 03/02/23 1134 03/02/23 1219 03/02/23 1348 BP: 156/73 155/71 141/54 BP Location: Patient Position: Pulse: 93 90 84 Resp: 20 20 20 Temp: 37.1 C (98.8 F) 36.9 C (98.4 F) 37.1 C (98.8 F) TempSrc: Temporal Temporal Temporal SpO2: 95% 96% 95% Weight: Height: Last Labs: CBC - 03/02/2023: 9:53 AM 6.8 8.8 227 27.3 CMP - 03/02/2023: 9:53 AM 9.5 5.9 27 --- 0.9 1.9 2.2 9 89 PTT - 02/26/2023: 2:19 PM 1.3 14.5 30 TROPHS Date/Time Value Ref Range Status 02/25/2023 06:48 AM 5,973 0 - 53 ng/L Final Comment: Previous result verified on 02/24/20232241 on specimen/case [id number] called with component TRPHS for procedure Troponin I, High Sensitivity with value 6,669 ng/L. 02/24/2023 11:18 PM 6,518 0 - 53 ng/L Final Comment: Previous result verified on 02/24/20232241 on specimen/case [id number] called with component TRPHS for procedure Troponin I, High Sensitivity with value 6,669 ng/L. 02/24/2023 09:57 PM 6,669 0 - 53 ng/L Final BNP Date/Time Value Ref Range Status 02/24/2023 09:57 PM 1,234 0 - 99 pg/mL Final Last I/O: I/O last 3 completed shifts: In: 840 (9.8 mL/kg) [P.O.:240; I.V.:50 (0.6 mL/kg); Blood:350; IV Piggyback:200] Out: 3850 (44.7 mL/kg) [Urine:3850 (1.2 mL/kg/hr)] Dosing Weight: 86.1 kg Past Cardiology Tests (Last 3 Years): Echo: Transthoracic Echo (TTE) Limited 02/25/2023 Ejection Fractions: EF Date/Time Value Ref Range Status 02/25/2023 11:11 AM 54 Cath: No results found for this or any previous visit from the past 1095 days. Stress Test: No results found for this or any previous visit from the past 1095 days. Cardiac Imaging: No results found for this or any previous visit from the past 1095 days. Inpatient Medications: Scheduled medications Medication Dose Route Frequency aspirin 81 mg oral Daily atorvastatin 40 mg oral Nightly azaTHIOprine 50 mg oral Daily dilTIAZem XR 180 mg oral Daily enoxaparin 40 mg subcutaneous q24h [Held by provider] flecainide 50 mg oral q8h TREMAINE metoprolol 5 mg intravenous Once metoprolol tartrate 100 mg oral Once metoprolol tartrate 100 mg oral Once nitroglycerin 0.8 mg sublingual Once nitroglycerin 0.8 mg sublingual Once pantoprazole 40 mg oral Daily before breakfast polyethylene glycol 17 g oral Every other day predniSONE 5 mg oral Daily rOPINIRole 1 mg oral Nightly sodium chloride 0.9% 10 mL intra-catheter q12h sulfamethoxazole-trimethoprim 1 tablet oral q AM tacrolimus 0.5 mg oral BID tamsulosin 0.4 mg oral Daily PRN medications Medication acetaminophen alteplase benzocaine-menthol benzonatate dextrose 10 % in water (D10W) dextrose 10 % in water (D10W) dextrose dextrose glucagon glucagon LORazepam metoprolol metoprolol metoprolol metoprolol metoprolol tartrate metoprolol tartrate oxyCODONE oxyCODONE sodium chloride sodium chloride 0.9% Continuous Medications Medication Dose Last Rate Physical Exam: General: chronically ill appearing obese male resting in bed, receiving PRBC, on room air. NAD HEENT: EOMI, MMM Cardiac: regular rate and rhythm, no murmurs, rubs or gallops Pulmonary: Clear to auscultation anteriorly Extremities: bilateral distal pedal edema, RUE Aneurysm Abd: ostomomy: pink stoma, no output : Purwick with dark yellow urine Assessment/Plan 67-year-old male with a PMH paroxysmal atrial flutter/fibrillation not on AC, mild aortic stenosis,renal transplant 2012, and and colostomy for diverticulitis 01/2013 who presented from outside hospital with concerns for cholecystitis found to have acute acalculous cholecystitis s/p IR placement of percutaneous cholecystostomy tube on 02/25. Troponins were checked on admission and found to be 6600->6500->5900 with EKG showing poor R wave progression. ASA loaded. Chest pain/pressure freee. Previous echo 08/04 with normal biventricular function and moderately dilated biatria. Repeat echo AM 02/25 in s/o concern for NSTEMI no WMA's, low normal EF 50-55%, normal RV function, and mild . Possible inferior wall hypokinesis. CT chest with severe coronary calcifications. 1. Troponin elevation (6600)/NSTEMI: - NPO for LHC today 2. Paroxysmal atrial fibrillation: On Diltiazem and flecanide at home. Not on anticoagulation due to massive GI bleeding requiring 12 units 6 months ago. In theory, risk of bleeding now decreased since he's post sigmoid resection. [id number] (1+ for age). Can hold flecainide pending coronary evaluation. Continue home diltiazem 180mg daily. Consider re challenging patient with heparin drip for primary stroke prevention in s/o AF. Follows with Dr. Hernandez Mark, Cardiology in [facility] Cardiology will follow Case discussed with Dr. maryana Marcos CNP Cardiology Consults Please call with any questions Pager [phone] - 8a-5p; Wednesday 8a-2p Pager [phone] all other times * Saez Janett Rivas MD - 03/02/2023 7:22 AM EST Jagruti Esparza is a 67 y.o. male on day 5 of admission presenting with Right upper quadrant abdominal pain. Subjective NAEO, VSS. Mild abdominal pain at site of RUQ PCT while repositioning, otherwise no pain. Denies fever, chills, SOB, CP, N/V. Hb 7.7 last night, transfused 1u PRBC for goal Hb>9 per cards for LHC. Objective Visit Vitals BP 143/53 Pulse 91 Temp 37 C (98.6 F) (Temporal) Resp 16 Ht 1.803 m (5' 10.98 ) Wt 86.1 kg (189 lb 13.1 oz) SpO2 95% BMI 26.49 kg/m Smoking Status Never BSA 2.08 m Physical Exam Constitutional: General: He is not in acute distress. HENT: Head: Normocephalic and atraumatic. Eyes: Extraocular Movements: Extraocular movements intact. Pupils: Pupils are equal, round, and reactive to light. Cardiovascular: Rate and Rhythm: Normal rate and regular rhythm. Pulses: Normal pulses. Heart sounds: Normal heart sounds. Comments: RUE AVF with palpable thrill Pulmonary: Effort: Pulmonary effort is normal. Breath sounds: Normal breath sounds. Abdominal: General: Abdomen is flat. Bowel sounds are normal. There is distension. Palpations: Abdomen is soft. Tenderness: There is no abdominal tenderness. Comments: RUQ PCT with biliary output, LLQ colostomy with no output, stoma pink Musculoskeletal: General: Normal range of motion. Right lower leg: No edema. Left lower leg: No edema. Skin: General: Skin is warm and dry. Capillary Refill: Capillary refill takes less than 2 seconds. Neurological: General: No focal deficit present. Mental Status: He is alert and oriented to person, place, and time. Intake/Output last 3 Shifts: I/O last 3 completed shifts: In: 840 (9.8 mL/kg) [P.O.:240; I.V.:50 (0.6 mL/kg); Blood:350; IV Piggyback:200] Out: 3850 (44.7 mL/kg) [Urine:3850 (1.2 mL/kg/hr)] Dosing Weight: 86.1 kg Lab Results Component Value Date WBC 6.5 03/01/2023 HGB 7.7 (L) 03/01/2023 HCT 24.3 (L) 03/01/2023 PLT 209 03/01/2023 ALT 9 (L) 02/25/2023 AST 27 02/25/2023 NA 131 (L) 03/01/2023 K 4.8 03/01/2023 CL 104 03/01/2023 CREATININE 0.57 03/01/2023 BUN 11 03/01/2023 CO2 22 03/01/2023 INR 1.3 (H) 02/27/2023 Scheduled medications aspirin, 81 mg, oral, Daily atorvastatin, 40 mg, oral, Nightly azaTHIOprine, 50 mg, oral, Daily dilTIAZem XR, 180 mg, oral, Daily enoxaparin, 40 mg, subcutaneous, q24h [Held by provider] flecainide, 50 mg, oral, q8h TREMAINE meropenem, 1 g, intravenous, q8h metoprolol tartrate, 100 mg, oral, Once nitroglycerin, 0.8 mg, sublingual, Once pantoprazole, 40 mg, oral, Daily before breakfast polyethylene glycol, 17 g, oral, Every other day predniSONE, 5 mg, oral, Daily rOPINIRole, 1 mg, oral, Nightly sodium chloride 0.9%, 10 mL, intra-catheter, q12h sulfamethoxazole-trimethoprim, 1 tablet, oral, q AM tacrolimus, 0.5 mg, oral, BID tamsulosin, 0.4 mg, oral, Daily Continuous medications PRN medications PRN medications: acetaminophen, alteplase, dextrose 10 % in water (D10W), dextrose 10 % in water (D10W), dextrose, dextrose, glucagon, glucagon, LORazepam, metoprolol tartrate, oxyCODONE, oxyCODONE, sodium chloride 0.9% This patient has a urinary catheter Reason for the urinary catheter remaining today? urinary retention/bladder outlet obstruction, acute or chronic Assessment/Plan Principal Problem: Right upper quadrant abdominal pain Active Problems: Sepsis ([facility]) NSTEMI (non-ST elevated myocardial infarction) ([facility]) Jagruti Esparza is a 67M with PMH of diverticulitis s/p sigmoid resection with end colostomy (01/2023), R kidney transplant (2012) on immunosuppressive therapy, pAfib/flutter on diltiazem/flecainide noton AC, chronic anemia, restless leg syndrome who was transferred from OSH on 02/24/23 for acute cholecystitis. Managed with PCT 02/25 due to troponemia, aspirate culture with MDR E Coli, required postop pressors. Now stable for transfer to medicine floor, awaiting coronary angiogram tentatively scheduled for 03/02. UPDATES 03/02: - LHC today - Addt'l 1u PRBC today, goal Hb>9 per LHC - Restart azathioprine today #Troponemia :: Trops [id number] - Given labs and EKG changes (reduced R wave progression), cannot rule out NSTEMI - Cards on board, plan for coronary angiogram this week - TTE 02/25 LVEF 50-55%, RSVP 39.5, mild - ASA 81, atorvastatin, s/p heparin gtt for NSTEMI treatment - No therapeutic AC d/t recent PCT, SQH for now #pAfib/flutter #HTN :: Previously not on AC ISO GIB 2/2 diverticulosis, now s/p sigmoid resection - CHADSVASC 2 - Continue home diltiazem 180mg since now off pressors - Hold home flecainide pending coronary eval as above #Cholecystitis #Septic shock, resolved :: S/p empiric vanc/azithro in ED - PCT with IR 02/25 with pressors x2 days - Aspirate/fluid culture 02/25 +MDR E coli, BCx/UCx NGTD - ID on board, aztreonam/Flagyl 02/25-02/27, meropenem 02/27-03/01 - Patient to follow up with [facility] in 1 month for PCT study #R kidney transplant (2012) on immunosuppressive therapy :: Baseline Cr 0.6-0.8 - Transplant nephro on board - Continue home tacro 0.5mg q12h with daily level, prednisone 5mg, Bactrim - Restart azathioprine 50mg now that leukocytosis resolved and s/p abx for +MDR E coli fluid culture #Chronic anemia :: Admission Hb 10.9 - Daily CBC, active T+S, transfuse Hb<9 for LHC #BPH #Acute urinary retention, resolved - Continue home tamsulosin 0.4mg - Bowers placed by urology 02/26-03/01 #Stage 2 sacral decubitus ulcers - Wound care recs: Triad wound dressing cream + Mepilex BID and PRN with clean-ups #Restless leg syndrome - Continue home ropinirole 1mg QHS F: PRN E: K>4, Mg>2 N: regular A: PIV, RUE AVF GI ppx: pantoprazole DVT ppx: LVX 40 CODE STATUS: full code (confirmed on admission) NOK: Richa (spouse) [phone] Associated attestation - Pedro Romero MD - 03/02/2023 2:27 PM EST I saw and evaluated the patient. I personally obtained the florez and critical portions of the historyand physical exam or was physically present for florez and critical portions performed by the resident/fellow. I reviewed the resident/fellow's documentation and discussed the patient with the resident/f chance. I agree with the resident/fellow's medical decision making as documented in the note. Agree with above. Yesterday's fever self resolved' quickly and I suspect may have been spurious. OK to dc abx and monitor. LHC today after transfusion of 2nd unit. Details as above. * Mariana Tariq RN - 03/01/2023 7:54 PM EST Wound Care Progress Note Visit Date: 03/01/2023 Patient Name: Jagruti Esparza Reason for Visit: Colostomy assessment and pouch change Ostomy type: Colostomy Size: 1 1/2 Color: red Protruding: budded Functioning: thick brown stool Mucocutaneous junction: Clean, dry, and intact Peristomal skin: minimal erythema, Adapt powder dusted onto damaged tissue, sealed with Cavilon no sting barrier film. Pouching: Cavilon, Flat 1 piece ostomy pouch Ostomy Education: The patient is knowledgeable in ostomy care, but needs assistance while inpatient. Plan: Assess stoma/pouching twice a week and as needed. Supplies ordered to bedside. Colostomy Other LLQ (Active) Stomal Appliance 1 piece;Changed 03/01/231953 Site/Stoma Assessment Clean;Intact 03/01/231953 Peristomal Assessment Clean;Intact 03/01/231953 Treatment Pouch change 03/01/231953 Drainage Characteristics Brown 03/01/231953 Output (mL) 50 mL 02/28/23 1600 Patient sacrum was assessed by wound care 02/25/23 please see consult note for recommendations. Please have floor hospice patient care secretary or bedside RN order EHOB mattress overlay from central supply ([employer]# [id number]) for patient support surface. While in bed patient should only be on one EHOB air mattress overlay, a fitted sheet, and one EHOB repositioning sheet with appropriate white chux. Please do not use brief while patient is resting inbed. Turn and reposition patient at least every 2 hours. Elevate heels off the bed surface at all times. Wound Team Plan: Primary provider, please review recommendation. If you agree with recommendation please enter as wound orders in EMR. Thank you. While inpatient, Secure chat with questions or if condition changes. [place] [phone]. Mariana Tariq RN, CWON 03/01/2023 7:54 PM * Elsy Plummer RN - 03/01/2023 3:37 PM EST 03/01/23 1537 Transitional Mechanical Maintenance Technician Notes: Met with patient and spouse to discuss discharge needs. Patient is refusing to discharge to SNF andwould like to resume home care. Patient uses a cane for ambulation assistance. Patient denies any financial or social work needs. Patient and spouse will need transportation assistance at discharge. Patient is scheduled for a heart cath tomorrow. 03/02/23 1247 Patient will resume home care services with [facility] [facility] at discharge. Assessment/Plan Principal Problem: Right upper quadrant abdominal pain Active Problems: Sepsis (CMS/HCC) NSTEMI (non-ST elevated myocardial infarction) (CMS/HCC) Discharge Plans: discharge home with home care Elsy Plummer RN * Gagandeep Mansfield MD - 03/01/2023 3:01 PM EST Subjective Data: Patient now on the floor (ruffin). Denies any complaints at this time. Last Recorded Vitals: Vitals: 03/01/23 0531 03/01/23 0755 03/01/23 0905 03/01/23 1157 BP: 148/64 139/56 140/57 BP Location: Left arm Patient Position: Lying Pulse: 92 89 89 Resp: 17 Temp: 37 C (98.6 F) 39.2 C (102.6 F) 37.1 C (98.8 F) 37.2 C (99 F) TempSrc: Temporal SpO2: 96% 96% 97% Weight: Height: Last Labs: CBC - 03/01/2023: 9:32 AM 6.7 7.9 179 25.0 CMP - 03/01/2023: 9:32 AM 9.4 5.9 27 --- 0.9 2.0 2.1 9 89 PTT - 02/26/2023: 2:19 PM 1.3 14.5 30 TROPHS Date/Time Value Ref Range Status 02/25/2023 06:48 AM 5,973 0 - 53 ng/L Final Comment: Previous result verified on 02/24/20232241 on specimen/case [id number] called with component TRPHS for procedure Troponin I, High Sensitivity with value 6,669 ng/L. 02/24/2023 11:18 PM 6,518 0 - 53 ng/L Final Comment: Previous result verified on 02/24/2023 2242 on specimen/case [id number] called with component TRPHS for procedure Troponin I, High Sensitivity with value 6,669 ng/L. 02/24/2023 09:57 PM 6,669 0 - 53 ng/L Final BNP Date/Time Value Ref Range Status 02/24/2023 09:57 PM 1,234 0 - 99 pg/mL Final Last I/O: I/O last 3 completed shifts: In: 2080 (24.2 mL/kg) [P.O.:480; I.V.:1600 (18.6 mL/kg)] Out: 2860 (33.2 mL/kg) [Urine:2685 (0.9 mL/kg/hr); Drains:65; Stool:110] Dosing Weight: 86.1 kg Past Cardiology Tests (Last 3 Years): Echo: Transthoracic Echo (TTE) Limited 02/25/2023 Ejection Fractions: EF Date/Time Value Ref Range Status 02/25/2023 11:11 AM 54 Cath: No results found for this or any previous visit from the past 1095 days. Stress Test: No results found for this or any previous visit from the past 1095 days. Cardiac Imaging: No results found for this or any previous visit from the past 1095 days. Inpatient Medications: Scheduled medications Medication Dose Route Frequency aspirin 81 mg oral Daily atorvastatin 40 mg oral Nightly [START ON 03/02/2023] azaTHIOprine 50 mg oral Daily dilTIAZem XR 180 mg oral Daily enoxaparin 40 mg subcutaneous q24h [Held by provider] flecainide 50 mg oral q8h TREMAINE meropenem 1 g intravenous q8h [START ON 03/02/2023] metoprolol tartrate 100 mg oral Once nitroglycerin 0.8 mg sublingual Once pantoprazole 40 mg oral Daily before breakfast polyethylene glycol 17 g oral Every other day predniSONE 5 mg oral Daily rOPINIRole 1 mg oral Nightly sodium chloride 0.9% 10 mL intra-catheter q12h sulfamethoxazole-trimethoprim 1 tablet oral q AM tacrolimus 0.5 mg oral BID tamsulosin 0.4 mg oral Daily PRN medications Medication acetaminophen alteplase dextrose 10 % in water (D10W) dextrose 10 % in water (D10W) dextrose dextrose glucagon glucagon LORazepam [START ON 03/02/2023] metoprolol tartrate oxyCODONE oxyCODONE sodium chloride 0.9% Continuous Medications Medication Dose Last Rate Physical Exam: General: well appearing, no acute distress Neck: no JVD Cardiac: regular rate and rhythm, no murmurs, rubs or gallops Pulmonary: Clear to auscultation bilaterally, normal respiratory effort Peripheral pulses: intact, 2+ Extremities: No peripheral edema Assessment/Plan 67-year-old male with a PMH paroxysmal atrial flutter/fibrillation not on AC, mild aortic stenosis,renal transplant 2012, and and colostomy for diverticulitis 01/2013 who presented from outside hospital with concerns for cholecystitis found to have acute acalculous cholecystitis s/p IR placement of percutaneous cholecystostomy tube on 02/25. Troponins were checked on admission and found to be 6600->6500->5900 with EKG showing poor R wave progression. ASA loaded. Chest pain/pressure freee. Previous echo 08/04 with normal biventricular function and moderately dilated biatria. Repeat echo AM 02/25 in s/o concern for NSTEMI no WMA's, low normal EF 50-55%, normal RV function, and mild . Possible inferior wall hypokinesis. CT chest with severe coronary calcifications. 1. Troponin elevation/NSTEMI: Given degree of troponin elevation and EKG changes (reduced R wave progression), cannot rule out NSTEMI. He is not been on therapeutic anticoagulation given concerns forbleeding risk due to recent perc kerline. Has been aspirin loaded. Risk factors for CAD include age and sex. For now, will manage medically with aspirin 81mg and atorvastatin 40mg daily. Will plan for coronary angiogram. Please place order for 03/02 and NPO at midnight. 2. Paroxysmal atrial fibrillation: On Diltiazem and flecanide at home. Not on anticoagulation due to massive GI bleeding requiring 12 units 6 months ago. In theory, risk of bleeding now decreased since he's post sigmoid resection. [id number] (1+ for age). Can hold flecainide pending coronary evaluation. Continue home diltiazem 180mg daily. Consider re challenging patient with heparin drip for primary stroke prevention in s/o AF. Cardiology will follow Associated attestation - Mery Lopez MD - 03/02/2023 9:04 AM EST I saw the patient in conjunction with the fellow. I reviewed the chart including radiographic and laboratory findings and agree with the current management plan. * Annita Ortiz MD - 03/01/2023 1:32 PM EST Subjective Seen and examined Doing ok this morning Objective Last Recorded Vitals Blood pressure 140/57, pulse 89, temperature 37.2 C (99 F), resp. rate 17, height 1.803 m (5' 10.98 ), weight 86.1 kg (189 lb 13.1 oz), SpO2 97 %. Intake/Output last 3 Shifts: I/O last 3 completed shifts: In: 2080 (24.2 mL/kg) [P.O.:480; I.V.:1600 (18.6 mL/kg)] Out: 2860 (33.2 mL/kg) [Urine:2685 (0.9 mL/kg/hr); Drains:65; Stool:110] Dosing Weight: 86.1 kg A&ox3, no distress Lungs clear anteriorly Rrr, no r/g Abd soft, nt, nd Drain site c/d/i No allograft tenderness No significant peripheral edema Scheduled medications aspirin, 81 mg, oral, Daily atorvastatin, 40 mg, oral, Nightly [START ON 03/02/2023] azaTHIOprine, 50 mg, oral, Daily dilTIAZem XR, 180 mg, oral, Daily enoxaparin, 40 mg, subcutaneous, q24h [Held by provider] flecainide, 50 mg, oral, q8h TREMAINE magnesium sulfate, 2 g, intravenous, Once meropenem, 1 g, intravenous, q8h [START ON 03/02/2023] metoprolol tartrate, 100 mg, oral, Once nitroglycerin, 0.8 mg, sublingual, Once pantoprazole, 40 mg, oral, Daily before breakfast polyethylene glycol, 17 g, oral, Every other day predniSONE, 5 mg, oral, Daily rOPINIRole, 1 mg, oral, Nightly sodium chloride 0.9%, 10 mL, intra-catheter, q12h sulfamethoxazole-trimethoprim, 1 tablet, oral, q AM tacrolimus, 0.5 mg, oral, BID tamsulosin, 0.4 mg, oral, Daily Continuous medications PRN medications PRN medications: acetaminophen, alteplase, dextrose 10 % in water (D10W), dextrose 10 % in water (D10W), dextrose, dextrose, glucagon, glucagon, LORazepam, [START ON 03/02/2023] metoprolol tartrate, oxyCODONE, oxyCODONE, sodium chloride 0.9% Lab Results Component Value Date CREATININE 0.57 03/01/2023 BUN 11 03/01/2023 NA 131 (L) 03/01/2023 K 4.8 03/01/2023 CL 104 03/01/2023 CO2 22 03/01/2023 Lab Results Component Value Date WBC 6.7 03/01/2023 HGB 7.9 (L) 03/01/2023 HCT 25.0 (L) 03/01/2023 MCV 74 (L) 03/01/2023 PLT 179 03/01/2023 Lab Results Component Value Date CALCIUM 9.4 03/01/2023 PHOS 2.0 (L) 03/01/2023 A&P: #Acute acalculous cholecystitis #Sepsis #NSTEMI S/p LUKT: 2012 - baseline Cr <1 mg/dl. Stable on admission labs. Serum K, CO2 acceptable - chronic mild-mod hyponatremia. Stable. Will monitor. - HTN: off pressors. stable - no significant hypervolemia on exam - Anemia: Hb 7.5. likely AICD. Immunosuppression: cont tac 0.5 mg bid, pred 5 mg/d. - resume Imuran once abx course completed - pls check tac trough levels daily, pls draw level 30-60 mins prior to am dose. Last Fk level not a true trough. Update 03/01: -Resume Azathioprine 50mg po daily tomorrow Annita Ortiz MD Nephrology fellow PGY4 Transplant nephrology pager [phone] * Haezl Macias, PT - 03/01/2023 9:58 AM EST Physical Therapy Physical Therapy Evaluation Patient Name: Jagruti Esparza Today's Date: 03/01/2023 Time Calculation Start Time: 856 Stop Time: 907 Time Calculation (min): 11 min Assessment/Plan PT Assessment PT Assessment Results: Decreased strength, Decreased endurance, Impaired balance, Decreased mobility Rehab Prognosis: Good End of Session Communication: Bedside nurse End of Session Patient Position: Bed, 3 rail up, Alarm off, not on at start of session IP OR SWING BED PT PLAN Inpatient or Swing Bed: Inpatient PT Plan Treatment/Interventions: Bed mobility, Transfer training, Gait training, Balance training, Strengthening, Endurance training, Therapeutic exercise PT Plan: Skilled PT PT Frequency: 3 times per week PT Discharge Recommendations: Moderate intensity level of continued care PT - OK to Discharge: Yes Subjective General Visit Information: Reason for Referral: transferred from outside hospital with acute acalculous cholecystitis s/p IR placement of percutaneous cholecystostomy tube on 02/25 am. Also noted to have elevated troponin, concern for NSTEMI. Past Medical History Relevant to Rehab: ESRD s/p KT 2012, on immunosuppression, pAF/Afib not on AC (on Flecainide/Diltiazem), mild aortic stenosis, recent admission for diverticulitis s/p sigmpoid colectomy and colostomy Prior to Session Communication: Bedside nurse Patient Position Received: Bed, 3 rail up, Alarm off, not on at start of session Home Living: Home Living Type of Home: House Lives With: Spouse Home Adaptive Equipment: Wheelchair-manual, Wheelchair-power, Walker rolling or standard (shower chair) Home Layout: One level Home Access: Ramped entrance Prior Level of Function: Prior Function Per Pt/Caregiver Report ADL Assistance: Needs assistance ( assists with ADLs) Homemaking Assistance: Needs assistance Ambulatory Assistance: (reports non-ambulatory for ~4 months; transfers to wheelchair with assist of family; was working on standing and taking steps with home PT) Precautions: Precautions Medical Precautions: Fall precautions Objective Pain: Pain Assessment Pain Assessment: 0-10 Pain Score: 0 - No pain Cognition: Cognition Overall Cognitive Status: Within Functional Limits Extremity/Trunk Assessments: Strength: RLE RLE : Exceptions to WFL AROM RLE (degrees) RLE AROM Comment: WFL Strength RLE RLE Overall Strength: Greater than or equal to 3/5 as evidenced by functional mobility LLE LLE : Exceptions to WFL AROM LLE (degrees) LLE AROM Comment: WFL Strength LLE LLE Overall Strength: Greater than or equal to 3/5 as evidenced by functional mobility General Assessments: Sensation Light Touch: (reports h/o neuropathy BLE below the knees; decreased light touch bilateral feet) Functional Assessments: Bed Mobility Bed Mobility: Yes Bed Mobility 1 Bed Mobility 1: Rolling left (pt refused to attempt sitting EOB due to c/o not feeling well) Level of Assistance 1: Maximum assistance (x2) Bed Mobility Comments 1: verbal cues Outcome Measures: [facility] Basic Mobility Turning from your back to your side while in a flat bed without using bedrails: A lot Moving from lying on your back to sitting on the side of a flat bed without using bedrails: Total Moving to and from bed to chair (including a wheelchair): Total Standing up from a chair using your arms (e.g. wheelchair or bedside chair): Total To walk in hospital room: Total Climbing 3-5 steps with railing: Total Basic Mobility - Total Score: 7 Encounter Problems Encounter Problems (Active) Balance pt will sit EOB >10 minutes with supervision Start: 03/01/23 Expected End: 03/22/23 Mobility STG - Patient will ambulate >5 feet with walker with mod assist Start: 03/01/23 Expected End: 03/22/23 Transfers STG - Patient will perform bed mobility with mod assist Start: 03/01/23 Expected End: 03/22/23 STG - Patient will transfer sit to and from stand with mod assist Start: 03/01/23 Expected End: 03/22/23 Education Documentation Mobility Training, taught by Hazel Macias PT at 03/01/2023 9:57 AM. Learner: Patient Readiness: Acceptance Method: Explanation Response: Needs Reinforcement Comment: educated on benefits of participation in PT to increase strength and functional mobility Education Comments No comments found. 03/01/23 at 9:58 AM Hazel Macias PT * Se Rivas MD - 03/01/2023 7:20 AM EST Jagruti Esparza is a 67 y.o. male on day 4 of admission presenting with Right upper quadrant abdominal pain. Subjective NAEO, VSS. Mild abdominal pain at site of RUQ PCT while repositioning, otherwise no pain. Denies fever, chills, SOB, CP, N/V. Objective Visit Vitals BP 148/64 Pulse 92 Temp 37 C (98.6 F) Resp 17 Ht 1.803 m (5' 10.98 ) Wt 86.1 kg (189 lb 13.1 oz) SpO2 96% BMI 26.49 kg/m Smoking Status Never BSA 2.08 m Physical Exam Constitutional: General: He is not in acute distress. HENT: Head: Normocephalic and atraumatic. Eyes: Extraocular Movements: Extraocular movements intact. Pupils: Pupils are equal, round, and reactive to light. Cardiovascular: Rate and Rhythm: Normal rate and regular rhythm. Pulses: Normal pulses. Heart sounds: Normal heart sounds. Comments: RUE AVF with palpable thrill Pulmonary: Effort: Pulmonary effort is normal. Breath sounds: Normal breath sounds. Abdominal: General: Abdomen is flat. Bowel sounds are normal. There is distension. Palpations: Abdomen is soft. Tenderness: There is no abdominal tenderness. Comments: RUQ PCT with biliary output, LLQ colostomy with brown output Genitourinary: Comments: Bowers in place Musculoskeletal: General: Normal range of motion. Right lower leg: No edema. Left lower leg: No edema. Skin: General: Skin is warm and dry. Capillary Refill: Capillary refill takes less than 2 seconds. Neurological: General: No focal deficit present. Mental Status: He is alert and oriented to person, place, and time. Intake/Output last 3 Shifts: I/O last 3 completed shifts: In: 2080 (24.2 mL/kg) [P.O.:480; I.V.:1600 (18.6 mL/kg)] Out: 2860 (33.2 mL/kg) [Urine:2685 (0.9 mL/kg/hr); Drains:65; Stool:110] Dosing Weight: 86.1 kg Lab Results Component Value Date WBC 10.2 02/28/2023 HGB 7.2 (L) 02/28/2023 HCT 22.9 (L) 02/28/2023 PLT 153 02/28/2023 ALT 9 (L) 02/25/2023 AST 27 02/25/2023 NA 131 (L) 02/28/2023 K 4.6 02/28/2023 CL 105 02/28/2023 CREATININE 0.73 02/28/2023 BUN 15 02/28/2023 CO2 22 02/28/2023 INR 1.3 (H) 02/27/2023 Scheduled medications acetaminophen, 650 mg, oral, q6h aspirin, 81 mg, oral, Daily atorvastatin, 40 mg, oral, Nightly [START ON 03/02/2023] azaTHIOprine, 50 mg, oral, Daily dilTIAZem XR, 180 mg, oral, Daily enoxaparin, 40 mg, subcutaneous, q24h [Held by provider] flecainide, 50 mg, oral, q8h TREMAINE meropenem, 1 g, intravenous, q8h pantoprazole, 40 mg, oral, Daily before breakfast polyethylene glycol, 17 g, oral, Every other day predniSONE, 5 mg, oral, Daily rOPINIRole, 1 mg, oral, Nightly sodium chloride 0.9%, 10 mL, intra-catheter, q12h sulfamethoxazole-trimethoprim, 1 tablet, oral, q AM tacrolimus, 0.5 mg, oral, BID tamsulosin, 0.4 mg, oral, Daily Continuous medications PRN medications PRN medications: alteplase, dextrose 10 % in water (D10W), dextrose 10 % in water (D10W), dextrose,dextrose, glucagon, glucagon, oxyCODONE, oxyCODONE, sodium chloride 0.9% This patient has a urinary catheter Reason for the urinary catheter remaining today? urinary retention/bladder outlet obstruction, acute or chronic Assessment/Plan Principal Problem: Right upper quadrant abdominal pain Active Problems: Sepsis ([facility]/HCC) NSTEMI (non-ST elevated myocardial infarction) (CMS/HCC) Jagruti Esparza is a 67M with PMH of diverticulitis s/p sigmoid resection with end colostomy (01/2023), R kidney transplant (2012) on immunosuppressive therapy, pAfib/flutter on diltiazem/flecainide noton AC, chronic anemia, restless leg syndrome who was transferred from OSH on 02/24/23 for acute cholecystitis. Managed with PCT 02/25 due to troponemia, aspirate culture with MDR E Coli, required postop pressors. Now stable for transfer to medicine floor, awaiting coronary angiogram tentatively scheduled for 03/02. UPDATES 03/01: - Pending cards schedule for coronary angio - Restart azathioprine tomorrow #Troponemia :: Trops [id number] - Given labs and EKG changes (reduced R wave progression), cannot rule out NSTEMI - Cards on board, plan for coronary angiogram this week - TTE 02/25 LVEF 50-55%, RSVP 39.5, mild - ASA 81, atorvastatin, s/p heparin gtt for NSTEMI treatment - No therapeutic AC d/t recent PCT, SQH for now #pAfib/flutter #HTN :: Previously not on AC ISO GIB 2/2 diverticulosis, now s/p sigmoid resection - CHADSVASC 2 - Continue home diltiazem 180mg since now off pressors - Hold home flecainide pending coronary eval as above #Cholecystitis #Septic shock, resolved :: S/p empiric vanc/azithro in ED - PCT with IR 02/25 with pressors x2 days - Aspirate/fluid culture 02/25 +MDR E coli, BCx/UCx NGTD - ID on board, aztreonam/Flagyl 02/25-02/27, meropenem 02/27-03/01 - Patient to follow up with ACS in 1 month for PCT study #R kidney transplant (2012) on immunosuppressive therapy :: Baseline Cr 0.6-0.8 - Transplant nephro on board - Continue home tacro 0.5mg q12h with daily level, prednisone 5mg, Bactrim - Given leukocytosis and +MDR E coli fluid culture, hold home azathioprine 50mg until abx completed #Chronic anemia :: Admission Hb - Daily CBC, active T+S #Acute urinary retention #BPH - Continue home tamsulosin 0.4mg - Bowers placed by urology 02/26, TOV when able #Stage 2 sacral decubitus ulcers - Wound care recs: Triad wound dressing cream + Mepilex BID and PRN with clean-ups #Restless leg syndrome - Continue home ropinirole 1mg QHS F: PRN E: K>4, Mg>2 N: regular A: PIV, RUE AVF GI ppx: pantoprazole DVT ppx: LVX 40 CODE STATUS: full code (confirmed on admission) NOK: Richa (spouse) [phone] Associated attestation - Pedro Romero MD - 03/01/2023 4:03 PM EST I saw and evaluated the patient. I personally obtained the florez and critical portions of the historyand physical exam or was physically present for florez and critical portions performed by the resident/fellow. I reviewed the resident/fellow's documentation and discussed the patient with the resident/f chance. I agree with the resident/fellow's medical decision making as documented in the note. * Tim Arrington MD - 02/28/2023 3:33 PM EST Subjective Off pressors, stable Bps. Likely transfer out of ICU today. No acute events overnight. On meropenem. WBC trending down. Objective Last Recorded Vitals Blood pressure (!) 109/35, pulse 84, temperature 36.4 C (97.5 F), resp. rate 20, height 1.803 m (5'10.98 ), weight 86.1 kg (189 lb 13.1 oz), SpO2 99 %. Intake/Output last 3 Shifts: I/O last 3 completed shifts: In: 4980.4 (57.8 mL/kg) [P.O.:480; I.V.:3890.4 (45.2 mL/kg); Other:10; IV Piggyback:600] Out: 2575 (29.9 mL/kg) [Urine:1770 (0.6 mL/kg/hr); Drains:170; Stool:635] Weight: 86.1 kg A&ox3, no distress Lungs clear anteriorly Rrr, no r/g Abd soft, nt, nd Drain site c/d/i No allograft tenderness No significant peripheral edema Scheduled medications acetaminophen, 650 mg, oral, q6h aspirin, 81 mg, oral, Daily atorvastatin, 40 mg, oral, Nightly [START ON 03/02/2023] azaTHIOprine, 50 mg, oral, Daily dilTIAZem XR, 180 mg, oral, Daily enoxaparin, 40 mg, subcutaneous, q24h [Held by provider] flecainide, 50 mg, oral, q8h TREMAINE meropenem, 1 g, intravenous, q8h pantoprazole, 40 mg, oral, Daily before breakfast polyethylene glycol, 17 g, oral, Every other day predniSONE, 5 mg, oral, Daily rOPINIRole, 1 mg, oral, Nightly sodium chloride 0.9%, 10 mL, intra-catheter, q12h sulfamethoxazole-trimethoprim, 1 tablet, oral, q AM tacrolimus, 0.5 mg, oral, BID tamsulosin, 0.4 mg, oral, Daily Continuous medications PRN medications PRN medications: alteplase, dextrose 10 % in water (D10W), dextrose 10 % in water (D10W), dextrose,dextrose, glucagon, glucagon, oxyCODONE, oxyCODONE, sodium chloride 0.9% Lab Results Component Value Date CREATININE 0.73 02/28/2023 BUN 15 02/28/2023 NA 131 (L) 02/28/2023 K 4.6 02/28/2023 CL 105 02/28/2023 CO2 22 02/28/2023 Lab Results Component Value Date WBC 10.2 02/28/2023 HGB 7.2 (L) 02/28/2023 HCT 22.9 (L) 02/28/2023 MCV 74 (L) 02/28/2023 PLT 153 02/28/2023 Lab Results Component Value Date CALCIUM 8.7 02/28/2023 PHOS 2.5 02/28/2023 Fk 9.9 02/27/23, not a true trough A&P: Acute acalculous cholecystitis Sepsis NSTEMI S/p LUKT: 2013 - baseline Cr <1 mg/dl. Stable on admission labs. Serum K, CO2 acceptable - chronic mild-mod hyponatremia. Stable. Will monitor. - HTN: off pressors. stable - no significant hypervolemia on exam - Anemia: Hb 7.5. likely AICD. Immunosuppression: cont tac 0.5 mg bid, pred 5 mg/d. - resume Imuran once abx course completed - pls check tac trough levels daily, pls draw level 30-60 mins prior to am dose. Last Fk level not a true trough. Will follow Tim Arrington MD * Saez Janett Rivas MD - 02/28/2023 2:05 PM EST Jagruti Esparza is a 67 y.o. male on day 3 of admission presenting with Right upper quadrant abdominal pain. Subjective Patient seen and examined at bedside. Mild abdominal pain at site of RUQ PCT while repositioning, otherwise no pain. Denies fever, chills, SOB, CP, N/V. Objective Visit Vitals BP (!) 109/35 Pulse 84 Temp 36.4 C (97.5 F) Resp 20 Ht 1.803 m (5' 10.98 ) Wt 86.1 kg (189 lb 13.1 oz) SpO2 99% BMI 26.49 kg/m Smoking Status Never BSA 2.08 m Physical Exam Constitutional: General: He is not in acute distress. HENT: Head: Normocephalic and atraumatic. Eyes: Extraocular Movements: Extraocular movements intact. Pupils: Pupils are equal, round, and reactive to light. Cardiovascular: Rate and Rhythm: Normal rate and regular rhythm. Pulses: Normal pulses. Heart sounds: Normal heart sounds. Comments: RUE AVF with palpable thrill Pulmonary: Effort: Pulmonary effort is normal. Breath sounds: Normal breath sounds. Abdominal: General: Abdomen is flat. Bowel sounds are normal. There is distension. Palpations: Abdomen is soft. Tenderness: There is no abdominal tenderness. Comments: RUQ PCT with biliary output, LLQ colostomy with brown output Genitourinary: Comments: Bowers in place Musculoskeletal: General: Normal range of motion. Right lower leg: No edema. Left lower leg: No edema. Skin: General: Skin is warm and dry. Capillary Refill: Capillary refill takes less than 2 seconds. Neurological: General: No focal deficit present. Mental Status: He is alert and oriented to person, place, and time. Intake/Output last 3 Shifts: I/O last 3 completed shifts: In: 4980.4 (57.8 mL/kg) [P.O.:480; I.V.:3890.4 (45.2 mL/kg); Other:10; IV Piggyback:600] Out: 2575 (29.9 mL/kg) [Urine:1770 (0.6 mL/kg/hr); Drains:170; Stool:635] Weight: 86.1 kg Lab Results Component Value Date WBC 10.2 02/28/2023 HGB 7.2 (L) 02/28/2023 HCT 22.9 (L) 02/28/2023 PLT 153 02/28/2023 ALT 9 (L) 02/25/2023 AST 27 02/25/2023 NA 131 (L) 02/28/2023 K 4.6 02/28/2023 CL 105 02/28/2023 CREATININE 0.73 02/28/2023 BUN 15 02/28/2023 CO2 22 02/28/2023 INR 1.3 (H) 02/27/2023 Scheduled medications acetaminophen, 650 mg, oral, q6h aspirin, 81 mg, oral, Daily atorvastatin, 40 mg, oral, Nightly [START ON 03/02/2023] azaTHIOprine, 50 mg, oral, Daily dilTIAZem XR, 180 mg, oral, Daily enoxaparin, 40 mg, subcutaneous, q24h [Held by provider] flecainide, 50 mg, oral, q8h TREMAINE meropenem, 1 g, intravenous, q8h pantoprazole, 40 mg, oral, Daily before breakfast polyethylene glycol, 17 g, oral, Every other day predniSONE, 5 mg, oral, Daily rOPINIRole, 1 mg, oral, Nightly sodium chloride 0.9%, 10 mL, intra-catheter, q12h sulfamethoxazole-trimethoprim, 1 tablet, oral, q AM tacrolimus, 0.5 mg, oral, BID tamsulosin, 0.4 mg, oral, Daily Continuous medications PRN medications PRN medications: alteplase, dextrose 10 % in water (D10W), dextrose 10 % in water (D10W), dextrose,dextrose, glucagon, glucagon, oxyCODONE, oxyCODONE, oxygen, sodium chloride 0.9% This patient has a urinary catheter Reason for the urinary catheter remaining today? urinary retention/bladder outlet obstruction, acute or chronic Assessment/Plan Principal Problem: Right upper quadrant abdominal pain Active Problems: Sepsis (CMS/HCC) NSTEMI (non-ST elevated myocardial infarction) (CMS/HCC) Jagruti Esparza is a 67M with PMH of diverticulitis s/p sigmoid resection with end colostomy (01/2023), R kidney transplant (2012) on immunosuppressive therapy, pAfib/flutter on diltiazem/flecainide noton AC, chronic anemia, restless leg syndrome who was transferred from OSH on 02/24/23 for acute cholecystitis. Managed with PCT 02/25 due to troponemia, aspirate culture with MDR E Coli, required postop pressors. Now stable for transfer to medicine floor, awaiting coronary angiogram tentatively scheduled for 03/02. #Troponemia :: Trops [id number] - Given labs and EKG changes (reduced R wave progression), cannot rule out NSTEMI - Cards on board, plan for coronary angiogram this week - TTE 02/25 LVEF 50-55%, RSVP 39.5, mild - ASA 81, atorvastatin, s/p heparin gtt for NSTEMI treatment - No therapeutic AC d/t recent PCT, SQH for now #pAfib/flutter #HTN :: Previously not on AC ISO GIB 2/2 diverticulosis, now s/p sigmoid resection - CHADSVASC 2 - Continue home diltiazem 180mg since now off pressors - Hold home flecainide pending coronary eval as above #Cholecystitis #Septic shock, resolved :: S/p empiric vanc/azithro in ED - PCT with IR 02/25 with pressors x2 days - Aspirate/fluid culture 02/25 +MDR E coli, BCx/UCx NGTD - ID on board, aztreonam/Flagyl 02/25-02/27, meropenem 02/27-03/01 - Patient to follow up with ACS in 1 month for PCT study #R kidney transplant (2012) on immunosuppressive therapy :: Baseline Cr 0.6-0.8 - Transplant nephro on board - Continue home tacro 0.5mg q12h with daily level, prednisone 5mg, Bactrim - Given leukocytosis and +MDR E coli fluid culture, hold home azathioprine 50mg until abx completed #Chronic anemia :: Admission Hb - Daily CBC, active T+S #Acute urinary retention #BPH - Continue home tamsulosin 0.4mg - Bowers placed by urology 02/26, TOV when able #Stage 2 sacral decubitus ulcers - Wound care recs: Triad wound dressing cream + Mepilex BID and PRN with clean-ups #Restless leg syndrome - Continue home ropinirole 1mg QHS F: PRN E: K>4, Mg>2 N: regular A: PIV, RUE AVF GI ppx: pantoprazole DVT ppx: LVX 40 CODE STATUS: full code (confirmed on admission) NOK: Richa (spouse) [phone] * Richardson Clark MD - 02/28/2023 1:23 PM EST [facility] ACUTE CARE SURGERY - PROGRESS NOTE Patient Name: Jagruti Esparza Admit Date: [id number] : 1955 AGE: 67 y.o. GENDER: male TODAY'S ASSESSMENT AND PLAN OF CARE: Jagruti Esparza is a 67 y.o. male with hx ESRD s/p kidney transplant 2012, atrial flutter (flecainide, dilt), HTN, complicated diverticulitis s/p laparoscopic sigmoid resection with end colostomy in 01/[address] Vasquez. Presented to ED as transfer from OSH for cholecystitis. Found to have troponin in 6000s so was managed with percutaneous cholecystostomy tube. Started on heparin gtt per cardiology. Has been off pressors. Hospital course: 03/06: Percutaneous cholecystostomy tube with IR Recommendations: # Acute cholecystitis: - Continue BID flushes of cholecystostomy tube (5cc towards patient, 5cc towards drain) - Will eventually need cholecystectomy (>6 wks) when acute process has resolved and patient has cardiology clearance - Needs follow-up with ACS in 1 month with cholecystostomy tube study #NSTEMI - Appreciate cards recs: Cardiac cath after patient is transferred to floor #UTI - Abx duration per ICU Dispo: Patient will be transferred to internal medicine service for management of his cardiac care.ACS will sign off once patient has been transferred from the TSICU. Patient seen and discussed with attending, Dr. Calvert. Richardson Clark MD General Surgery PGY5 Personal Pager: [phone] ACS Pager: [phone] ACS ED consult pager: [phone] CHIEF COMPLAINT / EVENTS LAST 24HRS / HPI: Remains off pressors. Tolerating diet. MEDICAL HISTORY / ROS: Admission history and ROS reviewed. Pertinent changes as follows: N/A PHYSICAL EXAM: Heart Rate: [74-89] Temp: [36.2 C (97.2 F)-37.2 C (99 F)] Resp: [13-23] BP: (115-148)/(34-43) SpO2: [96 %-100 %] General: NAD, resting comfortably HEENT: NCAT Resp: nonlabored breathing CV: NSR on monitor, off pressors Abd: soft, minimally TTP around cholecystostomy site. Drain with bilious output. : bowers stat lock removed given patient's discomfort MSK: moves all extremities Ext: bilateral LE edema Psych: appropriate mood and behavior IMAGING SUMMARY: No new imaging. I have reviewed all medications, laboratory results, and imaging pertinent for today's encounter. Results for orders placed or performed during the hospital encounter of 02/24/23 (from the past 24 hour(s)) POCT GLUCOSE Result Value Ref Range POCT Glucose 137 (H) 74 - 99 mg/dL Heparin Assay, UFH Result Value Ref Range Heparin Unfractionated 0.2 See Comment Below for Therapeutic Ranges IU/mL POCT GLUCOSE Result Value Ref Range POCT Glucose 132 (H) 74 - 99 mg/dL CBC Result Value Ref Range WBC 10.2 4.4 - 11.3 x10*3/uL nRBC 0.0 0.0 - 0.0 /100 WBCs RBC 3.11 (L) 4.50 - 5.90 x10*6/uL Hemoglobin 7.2 (L) 13.5 - 17.5 g/dL Hematocrit 22.9 (L) 41.0 - 52.0 % MCV 74 (L) 80 - 100 fL MCH 23.2 (L) 26.0 - 34.0 pg MCHC 31.4 (L) 32.0 - 36.0 g/dL RDW 18.1 (H) 11.5 - 14.5 % Platelets 153 150 - 450 x10*3/uL Calcium, ionized Result Value Ref Range POCT Calcium, Ionized 1.47 (H) 1.1 - 1.33 mmol/L Magnesium Result Value Ref Range Magnesium 1.82 1.60 - 2.40 mg/dL Renal function panel Result Value Ref Range Glucose 93 74 - 99 mg/dL Sodium 131 (L) 136 - 145 mmol/L Potassium 4.6 3.5 - 5.3 mmol/L Chloride 105 98 - 107 mmol/L Bicarbonate 22 21 - 32 mmol/L Anion Gap 9 (L) 10 - 20 mmol/L Urea Nitrogen 15 6 - 23 mg/dL Creatinine 0.73 0.50 - 1.30 mg/dL eGFR >90 >60 mL/min/1.73m*2 Calcium 8.7 8.6 - 10.6 mg/dL Phosphorus 2.5 2.5 - 4.9 mg/dL Albumin 1.9 (L) 3.4 - 5.0 g/dL POCT GLUCOSE Result Value Ref Range POCT Glucose 93 74 - 99 mg/dL POCT GLUCOSE Result Value Ref Range POCT Glucose 78 74 - 99 mg/dL POCT GLUCOSE Result Value Ref Range POCT Glucose 103 (H) 74 - 99 mg/dL POCT GLUCOSE Result Value Ref Range POCT Glucose 123 (H) 74 - 99 mg/dL Associated attestation - Cathie Calvert MD - 02/28/2023 2:21 PM EST I saw and evaluated the patient. I personally obtained the florez and critical portions of the historyand physical exam or was physically present for florez and critical portions performed by the resident/fellow. I reviewed the resident/fellow's documentation and discussed the patient with the resident/f chance. I agree with the resident/fellow's medical decision making as documented in the note with the exception/addition of the following: Doing well, of pressors. Tolerating diet. Some pain around kerline tube site but no longer in RUQ. Colostomy functional of stool and gas. He is ready to leave the TICU. He has been accepted to the Medicine service on the floor, for management of his cardiac disease as he is awaiting cardiac cath and monitoring of renal function and immunosuppression management. For cholecystitis would do 1 week of antibiotics from tube placement. He is on antibiotics for UTI as well. He should follow up with ACS in 1 month from discharge with a kerline tube study. He lives far from [facility] and has limited mobility, so it would be ok to get the tube study done at another hospital. * Rosaline Rivas MD - 02/28/2023 6:37 AM EST [facility] TRAUMA ICU - PROGRESS NOTE Patient Name: Jagruti Esparza Admit Date: [id number] : 1955 AGE: 67 y.o. GENDER: male 67M with mult comorbids including kidney transplant, afib, jan 2023 end colostomy for diverticulitis presents few days RUQ abd pain Problems: - Acute acalculous cholecystitis - NSTEMI - Pre-hospital UTI - Hx R kidney transplant 2013 on immunosuppressive therapy, aflutter on flecainide/diltiazem, complicated diverticulitis with pericolonic abscess s/p IR drain and laparoscopic sigmoid resection/end colostomy Jan 2023, hyponatremia (low 130s), ?RLS, anemia chronic disease (hgb 8-9 baseline) INCIDENTAL FINDINGS: 2 cm R middle lobe density, 3.6 cm pulmonary artery dilation PROCEDURES: percutaneous cholecystostomy tube by IR 02/25 TODAY'S ASSESSMENT AND PLAN OF CARE: Jagruti Esparza is a 67 y.o. male in the ICU due to acute abdominal problem in setting of multiple comorbidities NEURO/PAIN/SEDATION: Acute abdominal pain - Pain control: Tylenol 650 scheduled, oxyodone 2.5/5 PRN - Home ropinirole for history of restless leg syndrome RESPIRATORY: Resolved hypoxia - SpO2>92% goal - Incentive spirometry CV: NSTEMI 2/2 demand ischemia. Decreased diastolic pressures, asymptomatic. PMHx of paroxysmal atrial flutter/fib on flecainide and diltiazem, not on AC, mild aortic stenosis. - #Cardiology consulted, appreciate recs - TTE: EF 50-55% - Continue aspirin 81 mg, atorvastatin - heparin gtt completed 02/27. - continue home Diltiazem - continue to hold Flecainide per cards - Will plan for coronary angiogram when he is out of the ICU next week. - Will need to readdress the issue of anticoag now that he has had a sigmoid resection, and thus his bleeding from the diverticulosis is less likely. GI: Acute cholecystitis s/p IR drain, PMHx of complicated diverticulitis s/p end colostomy Jan 2023. -s/p percutaneous cholecystostomy tube placement by IR 02/25 - flush tube q2-4 hours - Home PPI - Reg diet - stoma functional without home miralax : PMHx of right kidney transplant (2012), on immunosuppressive therapy. Chronic hyponatremia, stable. - Daily RFP, replete lytes as indicated - maintain bowers with strict I/Os - #Transplant nephrology consulted, appreciate recs - hold azathioprine until antibiotic course completed (03/01). OK to restart 03/02. - continue bactrim for PJP ppx - continue tacrolimus with daily Tac levels - continue prednisone HEMATOLOGIC: PMHx of chronic anemia - Hgb: 7.2 (7.5) (8.6), slowly downtrending - Maintain active T&S - continue to monitor with daily CBC - SQH for DVT ppx ENDOCRINE: -daily glucose checks MUSCULOSKELETAL: - PT/OT evaluation when able SKIN: Stage 2 sacral decubitus ulcers - Mepilex and local wound care per nursing INFECTIOUS DISEASE: Intraabdominal sepsis/shock, s/p empiric vanc/azithromycin in ED - Aspirate/Fluid culture :+E. Coli with resistance to multiple antibiotics - Meropenem (stop date: 03/01) - Fu final blood cx - NTD GI PROPHYLAXIS: protonix 40 daily DVT PROPHYLAXIS: SCDs, SQH Lines/tubes: - x2 PIV - L internal jugular CVC (02/25-) Discontinue today - L radial a-line (02/25-) Discontinue today - bowers (02/26- - colostomy DISPOSITION: Medically ready for transfer to Medicine Team, appreciate their assistance CHIEF COMPLAINT / OVERNIGHT EVENTS / HPI: No acute events overnight. MEDICAL HISTORY / ROS: Admission history and ROS reviewed. Pertinent changes as follows: none PHYSICAL EXAM: Heart Rate: [74-89] Temp: [36.2 C (97.2 F)-37.2 C (99 F)] Resp: [13-23] BP: (110-138)/(31-41) SpO2: [96 %-100 %] Physical Exam Physical Exam: GEN: No acute distress, pleasant HEENT: nasal telangiectasias; central line in place (left neck) SKIN: Warm and dry. Stage 2 sacral decubitus ulcer. CARDIO: RRR RESP: non-labored breathing on room air GI: Soft, NT currently, ND, obese, midline scar, LLQ ostomy draining soft brown stool. RLQ IR draindraining bilious fluid. : indwelling bowers draining clear, yellow urine MSK: DARDEN EXTREM: No pitting edema. RUE AV fistula with palpable thrill. NEURO: Aox3, GCS 15 PSYCH: normal mood and affect Lab Results Component Value Date WBC 10.2 02/28/2023 HGB 7.2 (L) 02/28/2023 HCT 22.9 (L) 02/28/2023 MCV 74 (L) 02/28/2023 PLT 153 02/28/2023 Lab Results Component Value Date GLUCOSE 93 02/28/2023 CALCIUM 8.7 02/28/2023 NA 131 (L) 02/28/2023 K 4.6 02/28/2023 CO2 22 02/28/2023 CL 105 02/28/2023 BUN 15 02/28/2023 CREATININE 0.73 02/28/2023 IMAGING SUMMARY: (summary of new imaging findings, not a copy of dictation) No new imaging I have reviewed all medications, laboratory results, and imaging pertinent for today's encounter. Rosaline Rivas MD Associated attestation - Kang Galvan MD - 02/28/2023 6:34 PM EST I examined and discussed the patient with the resident/TANI and agree with the above note with the exceptions and corrections mentioned below. I discussed his care with Dr. Calvert and with his family at the bedside. Total Critical Care time not including procedures: 35 minutes Critical Care diagnosis: intraabdominal sepsis, ND, history of kidney transplant, hyponatremia, acute blood loss anemia Failed Organ Systems: ID, CV, , GI Plan: -Intraabdominal sepsis: Source control with percutaneous cholecystostomy tube. Continue ABX with stop date. Appears adequately fluid resuscitated. -ND: Cardiology evaluation. On ASA and home meds. Heparin gtt per cardiology stopped. -History of kidney transplant: Meds per transplant nephrology. -Hyponatremia: Monitor. Asymptomatic. -Acute blood loss anemia/Chronic anemia: Transfuse to maintain hgb >7. -Glycemic control per ICU protocol. -DVT prophylaxis: SCDs. Heparin sq This patient is critically ill with impaired organ system function resulting in a high probability of imminent or life threatening deterioration requiring continued ICU support for monitoring and treatment. * Tim Arrington MD - 02/27/2023 2:57 PM EST Subjective Off pressors, stable Bps. No acute events overnight. On meropenem. WBC trending down. Fluid cx with E coli, sensitivities pending. Objective Last Recorded Vitals Blood pressure (!) 110/33, pulse 89, temperature 36.7 C (98.1 F), temperature source Temporal, resp. rate 17, height 1.803 m (5' 10.98 ), weight 86.1 kg (189 lb 13.1 oz), SpO2 99 %. Intake/Output last 3 Shifts: I/O last 3 completed shifts: In: 5414.4 (62.9 mL/kg) [I.V.:3494.4 (40.6 mL/kg); Other:20; IV Piggyback:1900] Out: 2872 (33.4 mL/kg) [Urine:1842 (0.6 mL/kg/hr); Drains:570; Stool:460] Weight: 86.1 kg A&ox3, no distress Lungs clear anteriorly Rrr, no r/g Abd soft, nt, nd Drain site c/d/i No allograft tenderness No significant peripheral edema Scheduled medications acetaminophen, 650 mg, oral, q6h aspirin, 81 mg, oral, Daily atorvastatin, 40 mg, oral, Nightly [Held by provider] azaTHIOprine, 50 mg, oral, Daily [Held by provider] dilTIAZem XR, 180 mg, oral, Daily [Held by provider] flecainide, 50 mg, oral, q8h TREMAINE lidocaine, 5 mL, infiltration, Once meropenem, 1 g, intravenous, q8h [START ON 02/28/2023] pantoprazole, 40 mg, oral, Daily before breakfast perflutren lipid microspheres, 0.5-10 mL of dilution, intravenous, Once in imaging perflutren protein A microsphere, 0.5 mL, intravenous, Once in imaging polyethylene glycol, 17 g, oral, Every other day predniSONE, 5 mg, oral, Daily rOPINIRole, 1 mg, oral, Nightly sodium chloride 0.9%, 10 mL, intra-catheter, q12h sulfamethoxazole-trimethoprim, 1 tablet, oral, q AM sulfur hexafluoride microsphr, 2 mL, intravenous, Once in imaging tacrolimus, 0.5 mg, oral, BID tamsulosin, 0.4 mg, oral, Daily Continuous medications lactated Ringer's, 100 mL/hr, Last Rate: 100 mL/hr (02/27/23 1200) norepinephrine, 0.01-0.5 mcg/kg/min PRN medications PRN medications: alteplase, dextrose 10 % in water (D10W), dextrose 10 % in water (D10W), dextrose,dextrose, glucagon, glucagon, oxyCODONE, oxyCODONE, oxygen, sodium chloride 0.9% Lab Results Component Value Date CREATININE 0.73 02/27/2023 BUN 19 02/27/2023 NA 128 (L) 02/27/2023 K 4.4 02/27/2023 CL 102 02/27/2023 CO2 22 02/27/2023 Lab Results Component Value Date WBC 10.8 02/27/2023 HGB 7.5 (L) 02/27/2023 HCT 24.0 (L) 02/27/2023 MCV 74 (L) 02/27/2023 PLT 135 (L) 02/27/2023 Lab Results Component Value Date CALCIUM 8.9 02/27/2023 PHOS 2.8 02/27/2023 Fk 9.9, not a true trough A&P: Acute acalculous cholecystitis Sepsis NSTEMI S/p LUKT: 2012 - baseline Cr <1 mg/dl. Stable on admission labs. Serum K, CO2 acceptable - chronic mild-mod hyponatremia. Stable. Will monitor. - HTN: off pressors. - no significant hypervolemia on exam - Anemia: Hb 7.5. likely AICD. Immunosuppression: cont tac 0.5 mg bid, pred 5 mg/d. - cont ot hold Imuran while ot is on abx - pls check tac trough levels daily, pls draw level 30-60 mins prior to am dose. Last Fk level not a true trough. Will follow Tim Arrington MD * Mayela Avila MD - 02/27/2023 11:09 AM EST [facility] ACUTE CARE SURGERY - PROGRESS NOTE Patient Name: Jagruti Esparza Admit Date: [id number] : 1955 AGE: 67 y.o. GENDER: male TODAY'S ASSESSMENT AND PLAN OF CARE: Jagruti Esparza is a 67 y.o. male with hx ESRD s/p kidney transplant 2012, atrial flutter (flecainide, dilt), HTN, complicated diverticulitis s/p laparoscopic sigmoid resection with end colostomy in 01/[address] Vasquez. Presented to ED as transfer from OSH for cholecystitis. Found to have troponin in 6000s so was managed with percutaneous cholecystostomy tube. Started on heparin gtt per cardiology. Has been off pressors. Hospital course: 03/06: Percutaneous cholecystostomy tube with IR Recommendations: - Continue BID flushes of cholecystostomy tube - Dc bowers when able given groin discomfort - Appreciate cards recs - Cardiac cath after patient is transferred to floor - Will eventually need cholecystectomy (>6 wks) when acute process has resolved and patient has cardiology clearance - Antibiotics for UTI per ICU - Continue rest of care per ICU Patient seen and discussed with attending, Dr. Calvert. Mayela Avila MD PGY-2 General Surgery ACS [id number] CHIEF COMPLAINT / EVENTS LAST 24HRS / HPI: New levo requirement overnight. MEDICAL HISTORY / ROS: Admission history and ROS reviewed. Pertinent changes as follows: N/A PHYSICAL EXAM: Heart Rate: [65-105] Temp: [36.1 C (97 F)-36.8 C (98.2 F)] Resp: [9-24] BP: (98-147)/(28-50) SpO2: [88 %-100 %] General: NAD, resting comfortably HEENT: NCAT Resp: nonlabored breathing CV: NSR on monitor, off pressors Abd: soft, minimally TTP around cholecystostomy site. Drain with bilious output. : bowers stat lock removed given patient's discomfort MSK: moves all extremities Ext: bilateral LE edema Psych: appropriate mood and behavior IMAGING SUMMARY: No new imaging. I have reviewed all medications, laboratory results, and imaging pertinent for today's encounter. Results for orders placed or performed during the hospital encounter of 02/24/23 (from the past 24 hour(s)) Type And Screen Result Value Ref Range ABO TYPE A Rh TYPE POS ANTIBODY SCREEN NEG POCT GLUCOSE Result Value Ref Range POCT Glucose 97 74 - 99 mg/dL CBC Result Value Ref Range WBC 13.0 (H) 4.4 - 11.3 x10*3/uL nRBC 0.0 0.0 - 0.0 /100 WBCs RBC 3.49 (L) 4.50 - 5.90 x10*6/uL Hemoglobin 8.3 (L) 13.5 - 17.5 g/dL Hematocrit 25.9 (L) 41.0 - 52.0 % MCV 74 (L) 80 - 100 fL MCH 23.8 (L) 26.0 - 34.0 pg MCHC 32.0 32.0 - 36.0 g/dL RDW 18.1 (H) 11.5 - 14.5 % Platelets 137 (L) 150 - 450 x10*3/uL Fibrinogen Result Value Ref Range Fibrinogen 470 (H) 200 - 400 mg/dL Protime-INR Result Value Ref Range Protime 14.9 (H) 9.8 - 12.8 seconds INR 1.3 (H) 0.9 - 1.1 aPTT - baseline Result Value Ref Range aPTT 30 27 - 38 seconds TEG Clot Global Profile Result Value Ref Range R (Reaction Time) K 7.0 4.6 - 9.1 min K (Clot Kinetics) 1.0 0.8 - 2.1 min ANGLE 76.0 63.0 - 78.0 deg MA (Max Amplitude) K 65.0 52.0 - 69.0 mm R (Reaction Time) KH 6.2 4.3 - 8.3 min MA (Max Amplitude) RT 65.0 52.0 - 70.0 mm MA ( Graciela Amplitude) FF 33.0 (H) 15.0 - 32.0 mm FLEV 598 (H) 278 - 581 mg/dL Test Comment [id number] Heparin Assay, UFH Result Value Ref Range Heparin Unfractionated <0.1 See Comment Below for Therapeutic Ranges IU/mL POCT GLUCOSE Result Value Ref Range POCT Glucose 122 (H) 74 - 99 mg/dL Heparin Assay, UFH Result Value Ref Range Heparin Unfractionated 0.1 See Comment Below for Therapeutic Ranges IU/mL POCT GLUCOSE Result Value Ref Range POCT Glucose 141 (H) 74 - 99 mg/dL POCT GLUCOSE Result Value Ref Range POCT Glucose 115 (H) 74 - 99 mg/dL Type And Screen Result Value Ref Range ABO TYPE A Rh TYPE POS ANTIBODY SCREEN NEG Fibrinogen Result Value Ref Range Fibrinogen 440 (H) 200 - 400 mg/dL TEG Clot Global Profile Result Value Ref Range R (Reaction Time) K 14.2 (H) 4.6 - 9.1 min K (Clot Kinetics) 1.4 0.8 - 2.1 min ANGLE 71.0 63.0 - 78.0 deg MA (Max Amplitude) K 65.0 52.0 - 69.0 mm R (Reaction Time) KH 9.4 (H) 4.3 - 8.3 min MA (Max Amplitude) RT 69.0 52.0 - 70.0 mm MA ( Graciela Amplitude) FF 39.0 (H) 15.0 - 32.0 mm FLEV 708 (H) 278 - 581 mg/dL CBC Result Value Ref Range WBC 10.8 4.4 - 11.3 x10*3/uL nRBC 0.0 0.0 - 0.0 /100 WBCs RBC 3.25 (L) 4.50 - 5.90 x10*6/uL Hemoglobin 7.5 (L) 13.5 - 17.5 g/dL Hematocrit 24.0 (L) 41.0 - 52.0 % MCV 74 (L) 80 - 100 fL MCH 23.1 (L) 26.0 - 34.0 pg MCHC 31.3 (L) 32.0 - 36.0 g/dL RDW 17.9 (H) 11.5 - 14.5 % Platelets 135 (L) 150 - 450 x10*3/uL Protime-INR Result Value Ref Range Protime 14.5 (H) 9.8 - 12.8 seconds INR 1.3 (H) 0.9 - 1.1 Magnesium Result Value Ref Range Magnesium 1.87 1.60 - 2.40 mg/dL Tacrolimus level Result Value Ref Range Tacrolimus 9.9 <=15.0 ng/mL Renal function panel Result Value Ref Range Glucose 110 (H) 74 - 99 mg/dL Sodium 128 (L) 136 - 145 mmol/L Potassium 4.4 3.5 - 5.3 mmol/L Chloride 102 98 - 107 mmol/L Bicarbonate 22 21 - 32 mmol/L Anion Gap 8 (L) 10 - 20 mmol/L Urea Nitrogen 19 6 - 23 mg/dL Creatinine 0.73 0.50 - 1.30 mg/dL eGFR >90 >60 mL/min/1.73m*2 Calcium 8.9 8.6 - 10.6 mg/dL Phosphorus 2.8 2.5 - 4.9 mg/dL Albumin 2.2 (L) 3.4 - 5.0 g/dL Calcium, ionized Result Value Ref Range POCT Calcium, Ionized 1.41 (H) 1.1 - 1.33 mmol/L Heparin Assay, UFH Result Value Ref Range Heparin Unfractionated 0.1 See Comment Below for Therapeutic Ranges IU/mL POCT GLUCOSE Result Value Ref Range POCT Glucose 108 (H) 74 - 99 mg/dL Heparin Assay, UFH Result Value Ref Range Heparin Unfractionated 0.2 See Comment Below for Therapeutic Ranges IU/mL POCT GLUCOSE Result Value Ref Range POCT Glucose 104 (H) 74 - 99 mg/dL Heparin Assay, UFH Result Value Ref Range Heparin Unfractionated 0.3 See Comment Below for Therapeutic Ranges IU/mL Associated attestation - Cathie Calvert MD - 02/27/2023 1:34 PM EST I saw and evaluated the patient. I personally obtained the florez and critical portions of the historyand physical exam or was physically present for florez and critical portions performed by the resident/fellow. I reviewed the resident/fellow's documentation and discussed the patient with the resident/curt fletcher. I agree with the resident/fellow's medical decision making as documented in the note. * Rosaline Rivas MD - 02/27/2023 6:26 AM EST [facility] TRAUMA ICU - PROGRESS NOTE Patient Name: Jagruti Esparza Admit Date: [id number] : 1955 AGE: 67 y.o. GENDER: male 67M with mult comorbids including kidney transplant, afib, jan 2023 end colostomy for diverticulitis presents few days RUQ abd pain Problems: - Acute acalculous cholecystitis - NSTEMI - Pre-hospital UTI - Hx R kidney transplant 2012 on immunosuppressive therapy, aflutter on flecainide/diltiazem, complicated diverticulitis with pericolonic abscess s/p IR drain and laparoscopic sigmoid resection/end colostomy Jan 2023, hyponatremia (low 130s), ?RLS, anemia chronic disease (hgb 8-9 baseline) INCIDENTAL FINDINGS: 2 cm R middle lobe density, 3.6 cm pulmonary artery dilation PROCEDURES: percutaneous cholecystostomy tube by IR 02/25 TODAY'S ASSESSMENT AND PLAN OF CARE: Jagruti Esparza is a 67 y.o. male in the ICU due to acute abdominal problem in setting of multiple comorbidities NEURO/PAIN/SEDATION: Acute abdominal pain - Pain control: Tylenol 650 scheduled, oxyodone 2.5/5 PRN - Home ropinirole for history of restless leg syndrome RESPIRATORY: Resolved hypoxia - SpO2>92% goal - Incentive spirometry CARDIOVASC: Troponemia, c/f NSTEMI from demand ischemia. Decreased diastolic pressures, asymptomatic. PMHx of atrial flutter/fib on Flecainide. - #Cardiology consulted, appreciate recs - TTE: EF 50-55% - Continue aspirin 81 mg, atorvastatin, heparin gtt through the evening of 02/27. Can also hold flecainide for now and diltiazem (while he is on pressors). - Will plan for coronary angiogram when he is out of the ICU next week. Will need to readdress the issue of anticoag now that he has had a sigmoid resection, and thus his bleeding from the diverticulosis is less likely. GI: Acute cholecystitis s/p IR drain, PMHx of complicated diverticulitis s/p end colostomy Jan 2023. -s/p percutaneous cholecystostomy tube placement by IR 02/25 - flush tube q2-4 hours - Home PPI - Reg diet - stoma functional without home miralax - follow up LFT : PMHx of right kidney transplant (2012), on immunosuppressive therapy - Daily RFP, replete lytes as indicated - mIVF LR 100 ml/hr - maintain bowers with strict I/Os - #Transplant nephrology consulted, appreciate recs - hold azathioprine until antibiotic course completed - continue bactrim for PJP ppx - continue tacrolimus with daily Tac levels - continue prednisone HEMATOLOGIC: PMHx of chronic anemia - Hgb 7.5 (8.6) (10.9) - obtain active T&S - continue to monitor with daily CBC - SQH for DVT ppx ENDOCRINE: -daily glucose checks MUSCULOSKELETAL: - PT/OT evaluation when able SKIN: Stage 2 sacral decubitus ulcers - Mepilex and local wound care - Wound care nursing consulted, appreciate assistance - Turn patient every 2-4 hours INFECTIOUS DISEASE: Intraabdominal sepsis/shock, s/p empiric vanc/azithromycin in ED - Aspirate/Fluid culture +E. coli - Discontinue Aztreonam/Flagyl - Start Meropenem (stop date: 03/01) - Fu final blood cx - NTD GI PROPHYLAXIS: protonix 40 daily DVT PROPHYLAXIS: SCDs, SQH Lines/tubes: - x2 pIVs - L internal jugular CVC (02/25- - L radial a-line (02/25- - bowers (02/26- - colostomy DISPOSITION: ICU care for close hemodynamic monitoring in setting of acute abdominal process with multiple comorbidities CHIEF COMPLAINT / OVERNIGHT EVENTS / HPI: No acute events overnight. MEDICAL HISTORY / ROS: Admission history and ROS reviewed. Pertinent changes as follows: none PHYSICAL EXAM: Heart Rate: [66-89] Temp: [36.1 C (97 F)-36.7 C (98.1 F)] Resp: [9-19] BP: (98-120)/(28-40) SpO2: [88 %-100 %] Physical Exam Physical Exam: GEN: No acute distress, pleasant HEENT: nasal telangiectasias; central line in place (left neck) SKIN: Warm and dry. Stage 2 sacral decubitus ulcer. CARDIO: RRR RESP: non-labored breathing on room air GI: Soft, NT currently, ND, obese, midline scar, LLQ ostomy draining soft brown stool. RLQ IR draindraining bilious fluid. : indwelling bowers draining clear, yellow urine MSK: DARDEN EXTREM: No pitting edema. RUE AV fistula with palpable thrill. NEURO: Aox3, GCS 15 PSYCH: normal mood and affect Lab Results Component Value Date WBC 10.8 02/27/2023 HGB 7.5 (L) 02/27/2023 HCT 24.0 (L) 02/27/2023 MCV 74 (L) 02/27/2023 PLT 135 (L) 02/27/2023 Lab Results Component Value Date GLUCOSE 110 (H) 02/27/2023 CALCIUM 8.9 02/27/2023 NA 128 (L) 02/27/2023 K 4.4 02/27/2023 CO2 22 02/27/2023 CL 102 02/27/2023 BUN 19 02/27/2023 CREATININE 0.73 02/27/2023 Lab Results Component Value Date INR 1.3 (H) 02/27/2023 INR 1.3 (H) 02/26/2023 INR 1.3 (H) 02/25/2023 PROTIME 14.5 (H) 02/27/2023 PROTIME 14.9 (H) 02/26/2023 PROTIME 15.2 (H) 02/25/2023 IMAGING SUMMARY: (summary of new imaging findings, not a copy of dictation) No new imaging I have reviewed all medications, laboratory results, and imaging pertinent for today's encounter. Rosaline Rivas MD Associated attestation - Kang Galvan MD - 02/27/2023 3:39 PM EST I examined and discussed the patient with the resident/TANI and agree with the above note with the exceptions and corrections mentioned below. I discussed his care with Dr. Calvert and with his family at the bedside. Total Critical Care time not including procedures: 35 minutes Critical Care diagnosis: intraabdominal sepsis, ND, history of kidney transplant, hyponatremia, acute blood loss anemia, hypomagnesemia Failed Organ Systems: ID, CV, , GI Plan: -Intraabdominal sepsis: Shock resolved. Source control with percutaneous cholecystostomy tube. Continue ABX; adjusted for sensitivities. Appears adequately fluid resuscitated. -ND: Cardiology evaluation. On ASA and home meds. Heparin gtt per cardiology. -History of kidney transplant: Meds per transplant nephrology. -Hyponatremia: Monitor. Asymptomatic. -Hypomagnesemia: Replete -Acute blood loss anemia/Chronic anemia: Transfuse to maintain hgb >7. -Glycemic control per ICU protocol. -DVT prophylaxis: SCDs. Heparin sq This patient is critically ill with impaired organ system function resulting in a high probability of imminent or life threatening deterioration requiring continued ICU support for monitoring and treatment. * Gagandeep Mansfield MD - 02/26/2023 4:56 PM EST Subjective Data: Overnight patient was placed on levophed and a line was placed. Atbx broadened. Continues to deny chest pain or pressure. Objective Data: Last Recorded Vitals: Vitals: 02/26/23 1515 02/26/23 1530 02/26/23 1545 02/26/23 1600 BP: (!) 107/34 (!) 100/34 BP Location: Left arm Patient Position: Pulse: 72 73 66 69 Resp: 16 16 13 13 Temp: TempSrc: SpO2: 100% 97% 98% 100% Weight: Height: Last Labs: CBC - 02/26/2023: 2:19 PM 13.0 8.3 137 25.9 CMP - 02/26/2023: 3:05 AM 9.6 5.9 27 --- 0.9 3.0 2.4 9 89 PTT - 02/26/2023: 2:19 PM 1.3 14.9 30 TROPHS Date/Time Value Ref Range Status 02/25/2023 06:48 AM 5,973 0 - 53 ng/L Final Comment: Previous result verified on 02/24/20232 on specimen/case [id number] called with component TRPHS for procedure Troponin I, High Sensitivity with value 6,669 ng/L. 02/24/2023 11:18 PM 6,518 0 - 53 ng/L Final Comment: Previous result verified on 02/24/20232 on specimen/case [id number] called with component TRPHS for procedure Troponin I, High Sensitivity with value 6,669 ng/L. 02/24/2023 09:57 PM 6,669 0 - 53 ng/L Final BNP Date/Time Value Ref Range Status 02/24/2023 09:57 PM 1,234 0 - 99 pg/mL Final Last I/O: I/O last 3 completed shifts: In: 5351.1 (62.2 mL/kg) [P.O.:350; I.V.:2581.1 (30 mL/kg); Other:20; IV Piggyback:2400] Out: 2275 (26.4 mL/kg) [Urine:1765 (0.6 mL/kg/hr); Drains:485; Stool:25] Weight: 86.1 kg Past Cardiology Tests (Last 3 Years): Echo: Transthoracic Echo (TTE) Limited 02/25/2023 Ejection Fractions: EF Date/Time Value Ref Range Status 02/25/2023 11:11 AM 54 Cath: No results found for this or any previous visit from the past 1095 days. Stress Test: No results found for this or any previous visit from the past 1095 days. Cardiac Imaging: No results found for this or any previous visit from the past 1095 days. Inpatient Medications: Scheduled medications Medication Dose Route Frequency acetaminophen 650 mg oral q6h aspirin 81 mg oral Daily atorvastatin 40 mg oral Nightly [Held by provider] azaTHIOprine 50 mg oral Daily aztreonam 2 g intravenous q8h [Held by provider] dilTIAZem XR 180 mg oral Daily [Held by provider] flecainide 50 mg oral q8h TREMAINE insulin lispro 0-5 Units subcutaneous q4h lidocaine 5 mL infiltration Once metroNIDAZOLE 500 mg intravenous q8h pantoprazole 40 mg intravenous Daily perflutren lipid microspheres 0.5-10 mL of dilution intravenous Once in imaging perflutren protein A microsphere 0.5 mL intravenous Once in imaging polyethylene glycol 17 g oral Every other day predniSONE 5 mg oral Daily rOPINIRole 1 mg oral Nightly sodium chloride 0.9% 10 mL intra-catheter q12h sulfamethoxazole-trimethoprim 1 tablet oral q AM sulfur hexafluoride microsphr 2 mL intravenous Once in imaging surgical lubricant tacrolimus 0.5 mg oral BID PRN medications Medication alteplase dextrose 10 % in water (D10W) dextrose 10 % in water (D10W) dextrose dextrose glucagon glucagon oxyCODONE oxyCODONE oxygen sodium chloride 0.9% surgical lubricant Continuous Medications Medication Dose Last Rate heparin 0-4,000 Units/hr 1,000 Units/hr (02/26/23 1600) lactated Ringer's 100 mL/hr 100 mL/hr (02/26/23 1015) norepinephrine 0.01-0.5 mcg/kg/min Physical Exam: General: well appearing, no acute distress Neck: no JVD Cardiac: regular rate and rhythm, no murmurs, rubs or gallops Pulmonary: Clear to auscultation bilaterally, normal respiratory effort Peripheral pulses: intact, 2+ Extremities: No peripheral edema Assessment/Plan 67-year-old male with a PMH paroxysmal atrial flutter/fibrillation not on AC, mild aortic stenosis,renal transplant 2012, and and colostomy for diverticulitis 01/2013 who presented from outside hospital with concerns for cholecystitis found to have acute acalculous cholecystitis s/p IR placement of percutaneous cholecystostomy tube on 02/25. Troponins were checked on admission and found to be 6600->6500->5900 with EKG showing poor R wave progression. ASA loaded. Chest pain/pressure freee. Previous echo 08/04 with normal biventricular function and moderately dilated biatria. Repeat echo AM 02/25 in s/o concern for NSTEMI no WMA's, low normal EF 50-55%, normal RV function, and mild . Possible inferior wall hypokinesis. CT chest with severe coronary calcifications. 1. Troponin elevation/NSTEMI: Given degree of troponin elevation and EKG changes (reduced R wave progression), cannot rule out NSTEMI. He is not been on therapeutic anticoagulation given concerns forbleeding risk due to recent perc kerline. Has been aspirin loaded. Risk factors for CAD include age and sex. For now, will manage medically with aspirin 81mg, atorvastatin 40mg daily, and continue heparin drip for another 24 hours for completion of treatment of NSTEMI. Will plan for coronary angiogram once patient is more stable and there is less concern for sepsis. 2. Paroxysmal atrial fibrillation: On Diltiazem and flecanide at home. Not on anticoagulation due to massive GI bleeding requiring 12 units 6 months ago. In theory, risk of bleeding now decreased since he's post sigmoud resection. [id number] (1+ for age). Can hold flecainide pending coronary evaluation. Can hold diltiazem since patient on pressors. 3. Hypotension: Concern overall for septic shock/distributive picture with rising white count. Could give fluids boluses. We will continue to follow Patient was seen and discussed with attending Dr. Chris Mansfield MD PGY-6 Cardiovascular Disease Fellow [facility] EP consult pager: [phone] (; SAT-SUN 7a-2p) EP device nurse pager: [phone] (6p; SAT-SUN 7a-2p) Gen Cards consult pager: [phone] (; SAT-SUN 7a-2p) CICU fellow pager: [phone] (covers EP and General Cardiology Consults after hours) Advanced Heart Failure Consult Pager: [phone] anytime CICU Fellow Pager: [phone] anytime Endovascular /Limb Salvage Team Pager: [phone] for day coverage (8am-5pm) Interventional Intelligence Intern Pager: [phone] for night and weekend coverage Structural Heart Team Pager: [phone] anytime Night coverage: [id number] Gagandeep Mansfield MD Associated attestation - Yan Perez MD - 02/26/2023 5:15 PM EST I saw and evaluated the patient. I personally obtained the florez and critical portions of the historyand physical exam or was physically present for florez and critical portions performed by the resident/fellow. I reviewed the resident/fellow's documentation and discussed the patient with the resident/f chance. I agree with the resident/fellow's medical decision making as documented in the note. 67 M with prior kidney transplant, aflutter (flec and dilt, no A/C due to prior GI bleed), recent sigmoid resection with end colostomy presents with cholecystitis. Cardiology consulted for troponin elevation. Follows with [facility] teams have indicated that heparin is ok as is DAPT. Could wait to do cholecystectomy for several months. We discussed catheterization today. cardiac cath lab radiology technologist would like to wait until he is more stable. He is not having any chest pain or pressure. -Continue aspirin 81 mg, atorvastatin, heparin gtt through the evening of 02/27. Can also hold flecainide for now and diltiazem (while he is on pressors). Will plan for coronary angiogram when he is out of the ICU next week. Will need to readdress the issue of anticoag now that he has had a sigmoidresection, and thus his bleeding from the diverticulosis is less likely. Yan Perez MD * Kay Gutierrez PA-C - 02/26/2023 10:56 AM EST [facility] ACUTE CARE SURGERY - PROGRESS NOTE Patient Name: Jagruti Esparza Admit Date: 12120417 : 1955 AGE: 67 y.o. GENDER: male TODAY'S ASSESSMENT AND PLAN OF CARE: Jagruti Esparza is a 67 y.o. male with hx ESRD s/p kidney transplant 2012, atrial flutter (flecainide, dilt), HTN, complicated diverticulitis s/p laparoscopic sigmoid resection with end colostomy in 01/[address] Vasquez. Presented to ED as transfer from OSH for cholecystitis. Found to have troponin in 6000s so was managed with percutaneous cholecystostomy tube. Started on heparin gtt per cardiology. New Levo requirement overnight. Hospital course: 03/06: Percutaneous cholecystostomy tube with IR Recommendations: - Place 3 way stopcock on IR drain and flush BID - Follow up cardiology and transplant recommendations - Plan for cardiac cath today per cardiology - Will eventually need cholecystectomy (>6 wks) when acute process has resolved and patient has cardiology clearance - Antibiotics for UTI per ICU - Continue rest of care per ICU Kay Gutierrez PA-C Patient seen and discussed with attending, Dr. Calvert. CHIEF COMPLAINT / EVENTS LAST 24HRS / HPI: New levo requirement overnight. MEDICAL HISTORY / ROS: Admission history and ROS reviewed. Pertinent changes as follows: N/A PHYSICAL EXAM: Heart Rate: [66-108] Temp: [36.3 C (97.3 F)-36.7 C (98.1 F)] Resp: [12-23] BP: (85-123)/(25-52) SpO2: [93 %-100 %] Physical Exam HENT: Head: Normocephalic. Mouth/Throat: Mouth: Mucous membranes are moist. Eyes: Extraocular Movements: Extraocular movements intact. Cardiovascular: Rate and Rhythm: Normal rate. Pulmonary: Effort: Pulmonary effort is normal. Abdominal: Comments: Obese abdomen, soft, non distended, mild TTP around kerline tube in RUQ with bilious outputin bag Musculoskeletal: General: Normal range of motion. Cervical back: Normal range of motion. Skin: General: Skin is warm and dry. Neurological: General: No focal deficit present. Mental Status: He is alert. IMAGING SUMMARY: (summary of new imaging findings, not a copy of dictation) N/A I have reviewed all medications, laboratory results, and imaging pertinent for today's encounter. * Tim Arrington MD - 02/26/2023 10:03 AM EST Jagruti Esparza is a 67 y.o. male on day 1 of admission presenting with Right upper quadrant abdominal pain. Subjective Started on pressor support overnight. C/o feeling tired this am. On broad spectrum abx. Fluid cx with E coli, sensitivities pending. Objective Physical Exam Last Recorded Vitals Blood pressure (!) 109/32, pulse 70, temperature 36.7 C (98.1 F), temperature source Temporal, resp. rate 11, height 1.803 m (5' 10.98 ), weight 86.1 kg (189 lb 13.1 oz), SpO2 100 %. Intake/Output last 3 Shifts: I/O last 3 completed shifts: In: 6417.7 (74.5 mL/kg) [P.O.:350; I.V.:3547.7 (41.2 mL/kg); Other:20; IV Piggyback:2500] Out: 2697 (31.3 mL/kg) [Urine:2087 (0.7 mL/kg/hr); Drains:585; Stool:25] Weight: 86.1 kg A&ox3, no distress Lungs clear anteriorly Rrr, no r/g Abd soft, nt, nd No allograft tenderness No significant peripheral edema Scheduled medications acetaminophen, 650 mg, oral, q6h aspirin, 81 mg, oral, Daily atorvastatin, 40 mg, oral, Nightly [Held by provider] azaTHIOprine, 50 mg, oral, Daily aztreonam, 2 g, intravenous, q8h [Held by provider] dilTIAZem XR, 180 mg, oral, Daily [Held by provider] flecainide, 50 mg, oral, q8h TREMAINE insulin lispro, 0-5 Units, subcutaneous, q4h lidocaine, 5 mL, infiltration, Once metroNIDAZOLE, 500 mg, intravenous, q8h pantoprazole, 40 mg, intravenous, Daily perflutren lipid microspheres, 0.5-10 mL of dilution, intravenous, Once in imaging perflutren protein A microsphere, 0.5 mL, intravenous, Once in imaging polyethylene glycol, 17 g, oral, Every other day predniSONE, 5 mg, oral, Daily rOPINIRole, 1 mg, oral, Nightly sodium chloride 0.9%, 10 mL, intra-catheter, q12h sulfamethoxazole-trimethoprim, 1 tablet, oral, q AM sulfur hexafluoride microsphr, 2 mL, intravenous, Once in imaging tacrolimus, 0.5 mg, oral, BID tamsulosin, 0.4 mg, oral, Daily Continuous medications heparin, 0-4,000 Units/hr, Last Rate: 1,200 Units/hr (02/26/232045) lactated Ringer's, 100 mL/hr, Last Rate: 100 mL/hr (02/26/23 1015) norepinephrine, 0.01-0.5 mcg/kg/min PRN medications PRN medications: alteplase, dextrose 10 % in water (D10W), dextrose 10 % in water (D10W), dextrose,dextrose, glucagon, glucagon, oxyCODONE, oxyCODONE, oxygen, sodium chloride 0.9% Lab Results Component Value Date CREATININE 0.81 02/26/2023 BUN 24 (H) 02/26/2023 NA 131 (L) 02/26/2023 K 4.6 02/26/2023 CL 103 02/26/2023 CO2 23 02/26/2023 Lab Results Component Value Date WBC 13.0 (H) 02/26/2023 HGB 8.3 (L) 02/26/2023 HCT 25.9 (L) 02/26/2023 MCV 74 (L) 02/26/2023 PLT 137 (L) 02/26/2023 Lab Results Component Value Date CALCIUM 9.6 02/26/2023 PHOS 3.0 02/26/2023 A&P: Acute acalculous cholecystitis Sepsis NSTEMI S/p LUKT: 2013 - baseline Cr <1 mg/dl. Stable on admission labs. Serum K, CO2 acceptable - chronic mild-mod hyponatremia. Stable. Will monitor. - HTN: on low dose pressor support. Hypotension sec to sepsis. - no significant hypervolemia on exam Immunosuppression: cont tac 0.5 mg bid, pred 5 mg/d. - given concern for sepsis, would cont ot hold Imuran. - pls check tac trough levels daily. Last Fk trough at goal. Will follow Tim Arrington MD * Marina Peraza OT - 02/26/2023 9:21 AM EST Occupational Therapy Therapy Communication Note Patient Name: Jagruti Esparza Today's Date: 02/26/2023 Discipline: Occupational Therapy Missed Visit Reason: Missed Visit Reason: Patient placed on medical hold Missed Time: Attempt * Yue Nguyen, PT - 02/26/2023 9:00 AM EST Physical Therapy Therapy Communication Note Patient Name: Jagruti Esparza Today's Date: 02/26/2023 Discipline: Physical Therapy Missed Visit Reason: Missed Visit Reason: Patient placed on medical hold (Per rounds, pt planned for LHA and ongoing workup for NSTEMI. Will hold until medically appropriate for mobility.) Missed Time: Attempt * Rosaline Rivas MD - 02/26/2023 8:56 AM EST [facility] TRAUMA ICU - PROGRESS NOTE Patient Name: Jagruti Esparza Admit Date: [id number] : 1955 AGE: 67 y.o. GENDER: male 67M with mult comorbids including kidney transplant, afib, jan 2023 end colostomy for diverticulitis presents few days RUQ abd pain Problems: - Acute acalculous cholecystitis - NSTEMI - Pre-hospital UTI - Hx R kidney transplant 2012 on immunosuppressive therapy, aflutter on flecainide/diltiazem, complicated diverticulitis with pericolonic abscess s/p IR drain and laparoscopic sigmoid resection/end colostomy Jan 2023, hyponatremia (low 130s), ?RLS, anemia chronic disease (hgb 8-9 baseline) INCIDENTAL FINDINGS: 2 cm R middle lobe density, 3.6 cm pulmonary artery dilation PROCEDURES: percutaneous cholecystostomy tube by IR 02/25 TODAY'S ASSESSMENT AND PLAN OF CARE: Jagruti Esparza is a 67 y.o. male in the ICU due to acute abdominal problem in setting of multiple comorbidities NEURO/PAIN/SEDATION: Acute abdominal pain - Pain control: Tylenol 650 scheduled, oxyodone 2.5/5 PRN - Home ropinirole for history of restless leg syndrome RESPIRATORY: Resolved hypoxia - SpO2>92% goal - Incentive spirometry CARDIOVASC: Troponemia, c/f NSTEMI from demand ischemia. Decreased diastolic pressures, asymptomatic. PMHx of atrial flutter/fib on Flecainide. - #Cardiology consulted, appreciate recs - TTE: EF 50-55% - Medical management with therapeutic heparin x48 hours from presentation, ASA 81, and atorvastatin - discontinue levophed - hold home Flecainide and Diltiazem - no diagnostic cath given concern for patient's hemodynamic stability GI: Acute cholecystitis s/p IR drain, PMHx of complicated diverticulitis s/p end colostomy Jan 2023. -s/p percutaneous cholecystostomy tube placement by IR 02/25 - flush tube q2-4 hours - Home PPI - OK for regular diet - stoma functional without home miralax - follow up LFT : PMHx of right kidney transplant (2012), on immunosuppressive therapy - Daily RFP, replete lytes as indicated - mIVF LR 100 ml/hr - maintain bowers with strict I/Os - #Transplant nephrology consulted, appreciate recs - hold home azathioprine in setting of +Urine Cx (gram-negative bacilli) - continue bactrim for PJP ppx - continue tacrolimus - continue prednisone HEMATOLOGIC: PMHx of chronic anemia - Hgb 8.6 (10.9) - daily CBC - SQH for DVT ppx ENDOCRINE: - q4h npo acchecks MUSCULOSKELETAL: - PT/OT evaluation when able SKIN: Stage 2 sacral decubitus ulcers - Mepilex and local wound care - Wound care nursing consulted, appreciate assistance - Turn patient every 2-4 hours INFECTIOUS DISEASE: Pre-hospital UTI vs. Asymptomatic bacteriuria s/p empiric vanc/azithromycin in ED - Final UCx - negative - Aspirate/Fluid C: gram-negative bacilli - Aztreonam/Flagyl (02/25- - stop date pending final aspirate and blood cultures - Fu final blood cx - NTD GI PROPHYLAXIS: protonix 40 daily DVT PROPHYLAXIS: SCDs, SQH Lines/tubes: - x2 pIVs - L internal jugular CVC (02/25- - L radial a-line (02/25- - bowers (02/24- - colostomy DISPOSITION: ICU care for close hemodynamic monitoring in setting of acute abdominal process with multiple comorbidities CHIEF COMPLAINT / OVERNIGHT EVENTS / HPI: Overnight, blood pressures decreased. Levophed started and running at rate of 0.06 this AM. Arterial line placed overnight. Patient denies dizziness, chest pain, or shortness of breath. Remained on room air overnight. MEDICAL HISTORY / ROS: Admission history and ROS reviewed. Pertinent changes as follows: none PHYSICAL EXAM: Heart Rate: [66-108] Temp: [36.3 C (97.3 F)-36.5 C (97.7 F)] Resp: [12-23] BP: (85-135)/(25-52) SpO2: [93 %-100 %] Physical Exam Physical Exam: GEN: No acute distress, pleasant HEENT: nasal telangiectasias; central line in place (left neck) SKIN: Warm and dry. Stage 2 sacral decubitus ulcer. CARDIO: RRR RESP: non-labored breathing on room air GI: Soft, NT currently, ND, obese, midline scar, LLQ ostomy draining soft brown stool. RLQ IR draindraining murky serosanguinous fluid. : indwelling bowers draining clear, yellow urine MSK: DARDEN EXTREM: No pitting edema. RUE AV fistula with palpable thrill. NEURO: Aox3, GCS 15 PSYCH: normal mood and affect IMAGING SUMMARY: (summary of new imaging findings, not a copy of dictation) No new imaging I have reviewed all medications, laboratory results, and imaging pertinent for today's encounter. Rosaline Rivas MD Associated attestation - Kang Galvan MD - 02/26/2023 4:30 PM EST I examined and discussed the patient with the resident/TANI and agree with the above note with the exceptions and corrections mentioned below. I discussed his care with Dr. Calvert, cardiology and with his family at the bedside. Total Critical Care time not including procedures: 35 minutes Critical Care diagnosis: intraabdominal sepsis, ND, history of kidney transplant, hyponatremia, acute blood loss anemia Failed Organ Systems: ID, CV, , GI Plan: -Intraabdominal sepsis/shock: Source control with percutaneous cholecystostomy tube. Continue ABX. Appears adequately fluid resuscitated. Wean vasopressors with goal SBP >100. -ND: Cardiology evaluation. On ASA and home meds. Heparin gtt per cardiology. -History of kidney transplant: Meds per transplant nephrology. -Recent colorectal surgery: Notify surgical team. -Hyponatremia: Monitor. Asymptomatic. -Acute blood loss anemia/Chronic anemia: Transfuse to maintain hgb >7. -Glycemic control per ICU protocol. -DVT prophylaxis: SCDs. Heparin sq This patient is critically ill with impaired organ system function resulting in a high probability of imminent or life threatening deterioration requiring continued ICU support for monitoring and treatment. * Aníbal Lay RN - 02/25/2023 3:51 PM EST PLAN: 67M with mult comorbids including kidney transplant, afib, jan 2023 end colostomy for diverticulitis presents few days RUQ abd pain- ICU for close obs, serial exams with symptom management, MAPgoals, trending labs, Cards c/s, NPO, Transplant c/s, PT/OT, wound care, ABX, skin, line and ICU tlc. PAYOR: [employer] DISPO: [facility] resumption- Abhi Dukes SUPPORT/CONTACT: Richa (tana) [phone] Met with patient and spouse to complete assessment. Confirmed address on file. Patient reports mulitple hospitalizations over the last year most recent discharge in January. Active with [facility] Za[facility] on admission, verbalized wish to resume services at discharge. FWW and wheelchair for mobility aides, spouse assists with ADL's. Confirmed prescription coverage, no barriers to follow-up care, active with PCP. Discharge pending remaining hospital course and recs. Available to assist as needed. * Mariana Tariq RN - 02/25/2023 3:48 PM EST Wound Care Progress Note Visit Date: 02/25/2023 Patient Name: Jagruti Esparza Reason for Visit: Colostomy assessment and pouch change Ostomy type: Colostomy Size: 1 1/2 Color: red Protruding: budded Functioning: thick brown stool Mucocutaneous junction: Clean, dry, and intact Peristomal skin: circumferential suspected fungal rash Primary provider please order Nystatin powder for peristomal tissue Pouching: Cavilon, Flat 1 piece ostomy pouch Ostomy Education: The patient is knowledgeable in ostomy care, but needs assistance while inpatient. Plan: Assess stoma/pouching twice a week and as needed. Supplies ordered to bedside. Colostomy Other LLQ (Active) Stomal Appliance 1 piece;Changed;Intact 02/25/23 1548 Site/Stoma Assessment Intact 02/25/23 1548 Peristomal Assessment Clean;Rash 02/25/23 1548 Treatment Pouch change 02/25/23 1548 Drainage Characteristics Brown 02/25/23 1548 Wound Team Plan: Ostomy team will follow while inpatient for ostomy care. While inpatient, Secure chat with questions or if condition changes. [place] [phone]. Mariana Tariq RN 02/25/2023 3:48 PM * Mariana Tariq RN - 02/25/2023 3:44 PM EST Images from the original note were not included. Wound Care Progress Note Visit Date: 02/25/2023 Patient Name: Jagruti Esparza Reason for Visit: Chronic sacral wound Wound History: Evolving DTPI from Jan 2023 Wound Assessment: Wound location: Sacrum extending to CAREN buttocks Undermining: no Tracking: no Wound type: evolving DTPI Wound bed: Deep purple tissue with surrounding non blanching erythema and areas of tissue erosion Draining: serosanguineous Periwound skin: dry intact Therapeutic surface: ICU bed Recommendations: TWICE DAILY and as needed with clean-ups Keep clean and dry. Apply Triad wound dressing cream to damaged tissue TO APPLY TRIAD: Triad wound dressing cream can be applied directly from the tube or by using a gloved finger. Gently spread Triad evenly over the area of application to the thickness of a dime. Reapply Triad wound dressing cream with each clean up and as needed. In the perineal area, reapply Triad after each episode of incontinence. With higher exudate levels requiring more frequent re-applications. ([facility] order number [id number]). When soiled, wash top layer of soiled Triad wound dressing cream off with warm wipes as needed pat dry, then reapply Triad. EVERY THREE DAYS WASH DOWN TO SKIN. TO REMOVE TRIAD: Use pH-balanced wound cleanser to soften Triad. Gently wipe to remove without scrubbing. Then reapply if needed. Apply a sacral Mepilex border foam to sacrum for protection. Check under every shift and as needed.Change as needed and as soiled. While in bed patient should only be on one EHOB air mattress overlay, a fitted sheet, and one EHOB repositioning sheet with appropriate white chux. Please do not use brief while patient is resting inbed. Turn and reposition patient at least every 2 hours. Elevate heels off the bed surface at all times. Wound 02/25/23 Pressure Injury Sacrum Left;Medial;Right (Active) Date First Assessed/Time First Assessed: 02/25/23 1542 Present on Original Admission: Yes Hand Hygiene Completed: Yes Primary Wound Type: Pressure Injury Location: Sacrum Wound Location Orientation: Left;Medial;Right Assessments 02/25/2023 3:43 PM Wound Image Site Assessment Red;Purple;Sloughing Afsaneh-Wound Assessment Erythematous Pressure Injury Stage Deep Tissue Drainage Description Serosanguineous Drainage Amount Scant Dressing Wound gel Dressing Changed New No associated orders. Wound Team Plan: Primary provider, please review recommendation. If you agree with recommendation please enter as wound orders in EMR. Thank you. While inpatient, Secure chat with questions or if condition changes. For [place] [phone]. Mariana Tariq RN, CWON 02/25/2023 3:44 PM * Dodie Lau MD - 02/25/2023 2:50 PM EST [facility] ACUTE CARE SURGERY - PROGRESS NOTE Patient Name: Jagruti Esparza Admit Date: 12120417 : 1955 AGE: 67 y.o. GENDER: male TODAY'S ASSESSMENT AND PLAN OF CARE: Jagruti Esparza is a 67 y.o. male with hx ESRD s/p kidney transplant 2012, atrial flutter (flecainide, dilt), HTN, complicated diverticulitis s/p laparoscopic sigmoid resection with end colostomy in 01/[address] Vaqsuez. Presented to ED as transfer from OSH for cholecystitis. Found to have troponin in 6000s so was managed with percutaneous cholecystostomy tube. Started on heparin gtt per cardiology. Hospital course: 03/06: Percutaneous cholecystostomy tube with IR Recommendations: - Place 3 way stopcock on IR drain and flush BID - Follow up cardiology and transplant recommendations - Ok for diet when cardiology imaging is complete - Will eventually need cholecystectomy (>6 wks) when acute process has resolved and patient has cardiology clearance - Antibiotics for UTI per ICU - Continue rest of care per ICU Patient seen and discussed with attending, Dr. Calvert. CHIEF COMPLAINT / EVENTS LAST 24HRS / HPI: Now s/p perc kerline tube. RUQ and epigastric pain improved. MEDICAL HISTORY / ROS: Admission history and ROS reviewed. Pertinent changes as follows: None PHYSICAL EXAM: Heart Rate: [71-103] Temp: [36.4 C (97.5 F)-38.1 C (100.5 F)] Resp: [14-28] BP: (101-166)/(25-63) Height: [180.3 cm (5' 10.98 )-180.3 cm (5' 11 )] Weight: [86.1 kg (189 lb 13.1 oz)-86.2 kg (190 lb)] SpO2: [85 %-100 %] General: Well appearing, alert Skin: Warm, dry, no rashes HEENT: Neck supple, atraumatic Cardiac: Regular rate, intermittently hypotensive Pulm: Symmetric chest expansion, unlabored breathing on room air Abdomen: Soft, non-distended. IR drain in place draining thin bilious fluid. Extremities: No cyanosis, no peripheral edema. RUE AVF with thrill Neuro: Alert and oriented x 3, moves all extremities spontaneously Psych: Appropriate mood and affect LABS: Results for orders placed or performed during the hospital encounter of 02/24/23 (from the past 24 hour(s)) CBC and Auto Differential Result Value Ref Range WBC 15.5 (H) 4.4 - 11.3 x10*3/uL nRBC 0.0 0.0 - 0.0 /100 WBCs RBC 4.62 4.50 - 5.90 x10*6/uL Hemoglobin 10.9 (L) 13.5 - 17.5 g/dL Hematocrit 35.9 (L) 41.0 - 52.0 % MCV 78 (L) 80 - 100 fL MCH 23.6 (L) 26.0 - 34.0 pg MCHC 30.4 (L) 32.0 - 36.0 g/dL RDW 17.9 (H) 11.5 - 14.5 % Platelets 148 (L) 150 - 450 x10*3/uL Neutrophils % 88.1 40.0 - 80.0 % Immature Granulocytes %, Automated 1.9 (H) 0.0 - 0.9 % Lymphocytes % 6.2 13.0 - 44.0 % Monocytes % 3.3 2.0 - 10.0 % Eosinophils % 0.1 0.0 - 6.0 % Basophils % 0.4 0.0 - 2.0 % Neutrophils Absolute 13.65 (H) 1.20 - 7.70 x10*3/uL Immature Granulocytes Absolute, Automated 0.30 0.00 - 0.70 x10*3/uL Lymphocytes Absolute 0.96 (L) 1.20 - 4.80 x10*3/uL Monocytes Absolute 0.51 0.10 - 1.00 x10*3/uL Eosinophils Absolute 0.02 0.00 - 0.70 x10*3/uL Basophils Absolute 0.06 0.00 - 0.10 x10*3/uL Hepatic function panel Result Value Ref Range Albumin 3.1 (L) 3.4 - 5.0 g/dL Bilirubin, Total 0.7 0.0 - 1.2 mg/dL Bilirubin, Direct 0.1 0.0 - 0.3 mg/dL Alkaline Phosphatase 81 33 - 136 U/L ALT 8 (L) 10 - 52 U/L AST 23 9 - 39 U/L Total Protein 6.0 (L) 6.4 - 8.2 g/dL Basic metabolic panel Result Value Ref Range Glucose 90 74 - 99 mg/dL Sodium 131 (L) 136 - 145 mmol/L Potassium 4.4 3.5 - 5.3 mmol/L Chloride 100 98 - 107 mmol/L Bicarbonate 21 21 - 32 mmol/L Anion Gap 14 10 - 20 mmol/L Urea Nitrogen 16 6 - 23 mg/dL Creatinine 0.90 0.50 - 1.30 mg/dL eGFR >90 >60 mL/min/1.73m*2 Calcium 9.8 8.6 - 10.6 mg/dL Phosphorus Result Value Ref Range Phosphorus 1.3 (L) 2.5 - 4.9 mg/dL Magnesium Result Value Ref Range Magnesium 1.35 (L) 1.60 - 2.40 mg/dL Lactate Result Value Ref Range Lactate 5.1 (HH) 0.4 - 2.0 mmol/L Troponin I, High Sensitivity Result Value Ref Range Troponin I, High Sensitivity 6,669 (HH) 0 - 53 ng/L B-Type Natriuretic Peptide Result Value Ref Range BNP 1,234 (H) 0 - 99 pg/mL Lipase Result Value Ref Range Lipase 18 9 - 82 U/L Sars-CoV-2 and Influenza A/B PCR Result Value Ref Range Flu A Result Not Detected Not Detected Flu B Result Not Detected Not Detected Coronavirus 2018, PCR Not Detected Not Detected ECG 12 lead Result Value Ref Range Ventricular Rate 105 BPM Atrial Rate 105 BPM [place] Interval 190 ms QRS Duration 100 ms QT Interval 320 ms QTC Calculation(Bazett) 422 ms P [place] 23 degrees R [place] -8 degrees T [place] 71 degrees QRS Count 17 beats Q Onset 215 ms P Onset 120 ms P Offset 181 ms T Offset 375 ms QTC Fred[place] 385 ms ECG 12 lead Result Value Ref Range Ventricular Rate 102 BPM Atrial Rate 102 BPM [place] Interval 224 ms QRS Duration 98 ms QT Interval 338 ms QTC Calculation(Bazett) 440 ms P [place] -20 degrees R [place] -19 degrees T [place] 61 degrees QRS Count 17 beats Q Onset 216 ms P Onset 104 ms P Offset 182 ms T Offset 385 ms QTC Fredericia 403 ms Blood Culture Specimen: Peripheral Venipuncture; Blood culture Result Value Ref Range Blood Culture Loaded on Instrument - Culture in progress Blood Culture Specimen: Peripheral Venipuncture; Blood culture Result Value Ref Range Blood Culture Loaded on Instrument - Culture in progress Troponin I, High Sensitivity Result Value Ref Range Troponin I, High Sensitivity 6,518 (HH) 0 - 53 ng/L Lactate Result Value Ref Range Lactate 4.8 (HH) 0.4 - 2.0 mmol/L Urinalysis with Reflex Microscopic and Culture Result Value Ref Range Color, Urine Nena (N) Straw, Yellow Appearance, Urine Hazy (N) Clear Specific [place], Urine 1.020 1.005 - 1.035 pH, Urine 5.0 5.0, 5.5, 6.0, 6.5, 7.0, 7.5, 8.0 Protein, Urine 30 (1+) (N) NEGATIVE mg/dL Glucose, Urine NEGATIVE NEGATIVE mg/dL Blood, Urine NEGATIVE NEGATIVE Ketones, Urine NEGATIVE NEGATIVE mg/dL Bilirubin, Urine NEGATIVE NEGATIVE Urobilinogen, Urine 2.0 (N) <2.0 mg/dL Nitrite, Urine NEGATIVE NEGATIVE Leukocyte Esterase, Urine SMALL (1+) (A) NEGATIVE Extra Urine Perez Tube Result Value Ref Range Extra Tube Hold for add-ons. Microscopic Only, Urine Result Value Ref Range WBC, Urine 21-50 (A) 1-5, NONE /HPF RBC, Urine 3-5 NONE, 1-2, 3-5 /HPF Budding Yeast, Urine PRESENT (A) NONE /HPF Mucus, Urine 2+ Reference range not established. /LPF Protime-INR Result Value Ref Range Protime 15.2 (H) 9.8 - 12.8 seconds INR 1.3 (H) 0.9 - 1.1 BLOOD GAS VENOUS FULL PANEL Result Value Ref Range POCT pH, Venous 7.32 (L) 7.33 - 7.43 pH POCT pCO2, Venous 38 (L) 41 - 51 mm Hg POCT pO2, Venous 40 35 - 45 mm Hg POCT SO2, Venous 60 45 - 75 % POCT Oxy Hemoglobin, Venous 58.1 45.0 - 75.0 % POCT Hematocrit Calculated, Venous 29.0 (L) 41.0 - 52.0 % POCT Sodium, Venous 124 (L) 136 - 145 mmol/L POCT Potassium, Venous 4.5 3.5 - 5.3 mmol/L POCT Chloride, Venous 99 98 - 107 mmol/L POCT Ionized [place], Venous 1.42 (H) 1.10 - 1.33 mmol/L POCT Glucose, Venous 92 74 - 99 mg/dL POCT Lactate, Venous 3.2 (H) 0.4 - 2.0 mmol/L POCT Base Excess, Venous -6.0 (L) -2.0 - 3.0 mmol/L POCT HCO3 Calculated, Venous 19.6 (L) 22.0 - 26.0 mmol/L POCT Hemoglobin, Venous 9.7 (L) 13.5 - 17.5 g/dL POCT Anion Gap, Venous 10.0 10.0 - 25.0 mmol/L Patient Temperature 37.0 degrees Celsius FiO2 0 % Basic Metabolic Panel Result Value Ref Range Glucose 85 74 - 99 mg/dL Sodium 130 (L) 136 - 145 mmol/L Potassium 4.7 3.5 - 5.3 mmol/L Chloride 102 98 - 107 mmol/L Bicarbonate 18 (L) 21 - 32 mmol/L Anion Gap 15 10 - 20 mmol/L Urea Nitrogen 18 6 - 23 mg/dL Creatinine 0.81 0.50 - 1.30 mg/dL eGFR >90 >60 mL/min/1.73m*2 Calcium 8.8 8.6 - 10.6 mg/dL Sterile Fluid Culture/Smear Specimen: Aspirate; Fluid Result Value Ref Range Gram Stain (3+) Moderate Polymorphonuclear leukocytes (A) Gram Stain (4+) Abundant Gram negative bacilli (A) POCT GLUCOSE Result Value Ref Range POCT Glucose 94 74 - 99 mg/dL Tacrolimus level Result Value Ref Range Tacrolimus 4.5 <=15.0 ng/mL Troponin I, High Sensitivity Result Value Ref Range Troponin I, High Sensitivity 5,973 (HH) 0 - 53 ng/L CBC Result Value Ref Range WBC 23.8 (H) 4.4 - 11.3 x10*3/uL nRBC 0.0 0.0 - 0.0 /100 WBCs RBC 4.32 (L) 4.50 - 5.90 x10*6/uL Hemoglobin 10.1 (L) 13.5 - 17.5 g/dL Hematocrit 34.1 (L) 41.0 - 52.0 % MCV 79 (L) 80 - 100 fL MCH 23.4 (L) 26.0 - 34.0 pg MCHC 29.6 (L) 32.0 - 36.0 g/dL RDW 18.3 (H) 11.5 - 14.5 % Platelets 189 150 - 450 x10*3/uL Magnesium Result Value Ref Range Magnesium 2.33 1.60 - 2.40 mg/dL Fibrinogen Result Value Ref Range Fibrinogen 379 200 - 400 mg/dL Calcium, ionized Result Value Ref Range POCT Calcium, Ionized 1.41 (H) 1.1 - 1.33 mmol/L Renal Function Panel Result Value Ref Range Glucose 55 (LL) 74 - 99 mg/dL Sodium 129 (L) 136 - 145 mmol/L Potassium 5.0 3.5 - 5.3 mmol/L Chloride 97 (L) 98 - 107 mmol/L Bicarbonate 21 21 - 32 mmol/L Anion Gap 16 10 - 20 mmol/L Urea Nitrogen 20 6 - 23 mg/dL Creatinine 1.04 0.50 - 1.30 mg/dL eGFR 79 >60 mL/min/1.73m*2 Calcium 9.9 8.6 - 10.6 mg/dL Phosphorus 3.2 2.5 - 4.9 mg/dL Albumin 3.0 (L) 3.4 - 5.0 g/dL Hepatic Function Panel Result Value Ref Range Albumin 3.0 (L) 3.4 - 5.0 g/dL Bilirubin, Total 0.9 0.0 - 1.2 mg/dL Bilirubin, Direct 0.2 0.0 - 0.3 mg/dL Alkaline Phosphatase 89 33 - 136 U/L ALT 9 (L) 10 - 52 U/L AST 27 9 - 39 U/L Total Protein 5.9 (L) 6.4 - 8.2 g/dL POCT GLUCOSE Result Value Ref Range POCT Glucose 91 74 - 99 mg/dL Transthoracic Echo (TTE) Limited Result Value Ref Range AV pk dav 2.18 AV mn grad 8.0 LVOT diam 2.30 LV biplane EF 54 MV E/A ratio 1.25 LVIDd 6.60 RVSP 39.5 Aortic Valve Area by Continuity of VTI 3.15 Aortic Valve Area by Continuity of Peak Velocity 2.99 AV pk grad 19.0 LV A4C EF 53.0 POCT GLUCOSE Result Value Ref Range POCT Glucose 96 74 - 99 mg/dL IMAGING SUMMARY: (summary of new imaging findings, not a copy of dictation) CT A/P 02/25/23: IMPRESSION: 1. Gallbladder wall thickening with pericholecystic fluid. Possible biliary sludge. Findings are concerning for cholecystitis. Consider right upper quadrant ultrasound. 2. Postsurgical changes of left lower quadrant end colostomy. Hazy fat stranding surrounding the descending and sigmoid colon may represent postsurgical changes, colitis, or mild diverticulitis. Correlate clinically. 3. Similar appearance compared to prior of a 2 cm right middle lobe density with adjacent satellite nodules/tree-in-bud opacities. Findings may be infectious or malignant. PET-CT or three-month follow-up chest CT is recommended for further evaluation. 4. Ectatic main pulmonary artery measuring 3.6 cm in diameter which can be seen in pulmonary hypertension. Correlate clinically. 5. Status post renal transplant in the right iliac fossa. 6. Contrast within the subcutaneous soft tissues anterior to the left shoulder, likely secondary to contrast extravasation. Please correlate with neurovascular examination. 7. The right lateral abdominal wall is not completely included in the field of view. 8. Additional chronic findings as above. Dodie Lau MD General Surgery PGY-1 [facility] Pager [phone] Associated attestation - Cathie Calvert MD - 02/25/2023 5:06 PM EST I saw and evaluated the patient. I personally obtained the florez and critical portions of the historyand physical exam or was physically present for florez and critical portions performed by the resident/fellow. I reviewed the resident/fellow's documentation and discussed the patient with the resident/f chance. I agree with the resident/fellow's medical decision making as documented in the note. * Yue Nguyen PT - 02/25/2023 2:28 PM EST Physical Therapy Therapy Communication Note Patient Name: Jagruti Esparza Today's Date: 02/25/2023 Discipline: Physical Therapy Missed Visit Reason: Missed Visit Reason: Patient placed on medical hold (0949: RN requesting PT attempt in PM 2/2 increased pain and nausea, awaiting med adjustment from team. 1329: Per RN, pt with dropping BPs, will hold until medically appropriate for mobility.) Missed Time: Attempt * Rosaline Rivas MD - 02/25/2023 2:20 PM EST [facility] TRAUMA ICU - PROGRESS NOTE Patient Name: Jagruti Esparza Admit Date: [id number] : 1955 AGE: 67 y.o. GENDER: male 67M with mult comorbids including kidney transplant, afib, jan 2023 end colostomy for diverticulitis presents few days RUQ abd pain Problems: - Acute acalculous cholecystitis - NSTEMI - Pre-hospital UTI - Hx R kidney transplant 2012 on immunosuppressive therapy, aflutter on flecainide/diltiazem, complicated diverticulitis with pericolonic abscess s/p IR drain and laparoscopic sigmoid resection/end colostomy Jan 2023, hyponatremia (low 130s), ?RLS, anemia chronic disease (hgb 8-9 baseline) INCIDENTAL FINDINGS: 2 cm R middle lobe density, 3.6 cm pulmonary artery dilation PROCEDURES: percutaneous cholecystostomy tube by IR 02/25 TODAY'S ASSESSMENT AND PLAN OF CARE: Jagruti Esparza is a 67 y.o. male in the ICU due to acute abdominal problem in setting of multiple comorbidities NEURO/PAIN/SEDATION: Acute abdominal pain - Pain control: Tylenol 650 scheduled, oxyodone PRN - Home ropinirole for history of restless leg syndrome RESPIRATORY: Resolved hypoxia - SpO2>92% goal - Incentive spirometry - no concern CAP on imaging CARDIOVASC: Troponemia, c/f NSTEMI from demand ischemia. Decreased diastolic pressures, asymptomatic. PMHx of atrial flutter/fib on Flecainide. - Troponin downtrending - BNP elevated on admission (BNP 1,234) - #Cardiology consulted, appreciate recs - TTE - recommend therapeutic heparin x48 hours - continue home Flecainide and Diltiazem with hold parameters - will follow up with cardiology regarding home medications and need for daily ASA 81 GI: Acute cholecystitis s/p IR drain, PMHx of complicated diverticulitis s/p end colostomy Jan 2023. -s/p percutaneous cholecystostomy tube placement by IR 02/25 - flush tube q2-4 hours - Home PPI - NPO except meds/sips, will plan to advance pending cards final recs - stoma functional without home miralax - follow up LFT : PMHx of right kidney transplant (2012), on immunosuppressive therapy and electrolyte abnormalities (hyponatremia). Hypomagnesemia/hypophosphatemia. - Magnesium and phosphate repletion - lactate improved to 3.2 from 5.1 - continue mIVF LR 100 ml/hr while NPO - maintain boewrs with strict I/Os - #Transplant nephrology consulted, appreciate recs - hold home azathioprine in setting of +Urine Cx (gram-negative bacilli) - continue bactrim for PJP ppx - continue tacrolimus - continue prednisone HEMATOLOGIC: PMHx of chronic anemia - Hgb 10.9 - daily CBC - SQH for DVT ppx ENDOCRINE: - q4h npo acchecks MUSCULOSKELETAL: - PT/OT evaluation when able SKIN: Stage 2 sacral decubitus ulcers - Mepilex and local wound care - Wound care nursing consulted, appreciate assistance - Turn patient every 2-4 hours INFECTIOUS DISEASE: Pre-hospital UTI vs. Asymptomatic bacteriuria s/p empiric vanc/azithromycin in ED - Fu final Urine Cx (gram-negative bacilli) - Fu Bcx - Discontinue Ertapenem - Start Aztreonam/Flagyl today 02/25 GI PROPHYLAXIS: pepcid DVT PROPHYLAXIS: SCDs, SQH Lines/tubes: - x2 pIVs - bowers 02/24 [facility] for strict I/Os, clean urine sample - colostomy - PICC line today DISPOSITION: ICU care for close hemodynamic monitoring in setting of acute abdominal process with multiple comorbidities CHIEF COMPLAINT / OVERNIGHT EVENTS / HPI: HDS since surgery earlier this morning. Endorses pain but prefers oxycodone over dilaudid due to nausea. MEDICAL HISTORY / ROS: Admission history and ROS reviewed. Pertinent changes as follows: none PHYSICAL EXAM: Heart Rate: [71-103] Temp: [36.4 C (97.5 F)-38.1 C (100.5 F)] Resp: [14-28] BP: (101-166)/(25-63) Height: [180.3 cm (5' 10.98 )-180.3 cm (5' 11 )] Weight: [86.1 kg (189 lb 13.1 oz)-86.2 kg (190 lb)] SpO2: [85 %-100 %] Physical Exam Physical Exam: GEN: No acute distress, in bed HEENT: nasal telangiectasias SKIN: Warm and dry CARDIO: RRR RESP: non-labored breathing on room air GI: Soft, NT currently, ND, obese, midline scar, LLQ ostomy draining soft brown stool. RLQ IR draindraining murky serosanguinous fluid without evidence of bile. : indwelling bowers draining clear, yellow urine MSK: [place] EXTREM: No pitting edema. RUE AV fistula with palpable thrill. NEURO: Aox3, GCS 15 PSYCH: normal mood and affect IMAGING SUMMARY: (summary of new imaging findings, not a copy of dictation) TTE pending I have reviewed all medications, laboratory results, and imaging pertinent for today's encounter. Rosaline Rivas MD Associated attestation - Kang Galvan MD - 02/25/2023 4:32 PM EST I examined and discussed the patient with the resident/TANI and agree with the above note with the exceptions and corrections mentioned below. I discussed his care with Dr. Calvert and with his family at the bedside. Total Critical Care time not including procedures: 35 minutes Critical Care diagnosis: intraabdominal sepsis, ND, history of kidney transplant, hyponatremia, acute blood loss anemia Failed Organ Systems: ID, CV, , GI Plan: -Intraabdominal sepsis: Source control with percutaneous cholecystostomy tube. Continue ABX. Appears adequately fluid resuscitated. -ND: Await cardiology evaluation. On ASA and home meds. Echo pending. -History of kidney transplant: Meds per transplant nephrology. -Recent colorectal surgery: Notify surgical team. -Hyponatremia: Monitor. Asymptomatic. -Acute blood loss anemia/Chronic anemia: Transfuse to maintain hgb >7. -Glycemic control per ICU protocol. -DVT prophylaxis: SCDs. Heparin sq This patient is critically ill with impaired organ system function resulting in a high probability of imminent or life threatening deterioration requiring continued ICU support for monitoring and treatment. * Sanju Guerrero, [facility] - 02/25/2023 4:28 AM EST Pharmacy Medication History Review Jagruti Esparza is a 67 y.o. male admitted for Right upper quadrant abdominal pain. Pharmacy reviewed the patient's [id number] medications and allergies for accuracy. The list below reflects the updated DATA SYSTEMS MANAGER list. Comments regarding how patient may be taking medications differently can be found in the Admit Orders Activity Prior to Admission Medications Prescriptions Informant Patient Reported? Taking? DILT-XR 180 mg 24 hr capsule Self Yes Yes Sig: Take 1 capsule (180 mg) by mouth once daily. (8AM) azaTHIOprine (Imuran) 50 mg tablet Self Yes Yes Sig: Take 1 tablet (50 mg) by mouth once daily. (8AM) flecainide (Tambocor) 50 mg tablet Self Yes Yes Sig: Take 1 tablet (50 mg) by mouth every 8 hours. (8AM, 2PM, 8PM) magnesium oxide (Mag-Ox) 400 mg (241.3 mg magnesium) tablet Self Yes Yes Sig: Take 1 tablet (400 mg) by mouth once daily. (Noon) pantoprazole (ProtoNix) 20 mg EC tablet Self Yes Yes Sig: Take 1 tablet (20 mg) by mouth twice a day. (8AM, 8PM) polyethylene glycol (Glycolax, Miralax) 17 gram packet Self Yes Yes Sig: Take 17 g by mouth once daily. (Noon) predniSONE (Deltasone) 5 mg tablet Self Yes Yes Sig: Take 1 tablet (5 mg) by mouth once daily in the morning. (8AM) rOPINIRole (Requip) 1 mg tablet Self Yes Yes Sig: Take 1 tablet (1 mg) by mouth once daily at bedtime. (8PM) sulfamethoxazole-trimethoprim (Bactrim) 400-80 mg tablet Self Yes Yes Sig: Take 1 tablet by mouth once daily in the morning. (8AM) tacrolimus (Prograf) 0.5 mg capsule Self Yes Yes Sig: Take 0.5 mg by mouth 2 times a day. (8AM, 8PM) Facility-Administered Medications: None The list below reflects the updated allergy list. Please review each documented allergy for additional clarification and justification. Allergies Reviewed by Jessica Leslie RN on 02/24/2023 Severity Reactions Comments Cephalexin Medium Hives, Rash, Headache headache Other reaction(s): Unknown Reaction headache Tobramycin Medium Rash Other Reaction(s): pain rash Pain in groin and rectum area Other Reaction(s): pain rash Pain in groin and rectum area Meperidine Not Specified Dizziness [place] weird Other reaction(s): Other: See Comments, Unknown Reaction dizziness Erythromycin Low Rash headache Other reaction(s): Other: See Comments headache Penicillins Low Hives, Rash At 8 months old, swelling and hives. Patient declines M2B at discharge. Sources used to complete the med history include: Patient/Visitor Bedside Interview (had handwritten medication list) [facility] Dispense Report (Pharmacy Fill Activity) [facility] Ambulatory Medication List Discharge Summary 01/21/23 (Home Medications) Below are additional concerns with the patient's DATA SYSTEMS MANAGER list: None Sanju Guerrero PharmD, [facility] Transitions of Care Pharmacist Medication reconciliation complete Please reach out via [facility] Secure Chat for questions, or if no response call iPipeline or weipass. [facility] * Jethro Roper PA-C - 02/25/2023 4:13 AM EST [facility] TRAUMA ICU - PROGRESS NOTE Patient Name: Jagruti Esparza Admit Date: [id number] : 1955 AGE: 67 y.o. GENDER: male 67M with mult comorbids including kidney transplant, afib, jan 2023 end colostomy for diverticulitis presents few days RUQ abd pain Problems: - Acute acalculous cholecystitis - NSTEMI - Pre-hospital UTI - Hx R kidney transplant 2012 on immunosuppressive therapy, aflutter on flecainide/diltiazem, complicated diverticulitis with pericolonic abscess s/p IR drain and laparoscopic sigmoid resection/end colostomy Jan 2023, hyponatremia (low 130s), ?RLS, anemia chronic disease (hgb 8-9 baseline) INCIDENTAL FINDINGS: 2 cm R middle lobe density, 3.6 cm pulmonary artery dilation PROCEDURES: 02/25: pending percutaneous cholecystostomy tube by IR TODAY'S ASSESSMENT AND PLAN OF CARE: Jagruti Esparza is a 67 y.o. male in the ICU due to acute abdominal problem in setting of multiple comorbidities NEURO/PAIN/SEDATION: Acute abdominal pain, ?RLS - Tylenol as needed mild pain, IV opioid while NPO for moderate to severe pain - Home ropinirole at night RESPIRATORY: Resolved hypoxia - SpO2>92% goal - Incentive spirometry - OOB to chair later today - no concern CAP on imaging CARDIOVASC: NSTEMI, possibly demand ischemia. Hx aflutter - Cardiology consulted, fu recs - Troponin repeat after IR around 6A, EKG as warranted - cont home flecainide 50 mg q8, restart home diltiazem 180 mg ER with hold parameters GI: Acute cholecystitis, end colostomy from complicated diverticulitis jan 2023 - ACS primary, consulted IR for per kerline tube this AM - lactate improved to 3.2 from 5.1. S/p 1.5L crystalloid minimum - Home PPI - NPO except meds/sips - stoma functional without home miralax : Hx right kidney transplant, immunosuppressive therapy. Chronic hyponatremia. Hypomagnesemia/hypophosphatemia repleted - Repeat electrolytes later this morning, holding home mag supplement - LR 100 ml/hr while NPO - maintain bowers for now, strict I/Os - Transplant nephrology consulted. For now cont home azathioprine 50 mg in AM, bactrim in AM, 0.5 mg BID tacrolimus with AM tacrolimus level pending, prednisone 5 mg daily HEMATOLOGIC: chronic anemia - Hgb 10.9, suspected hemoconcentrated. S/p fluid resuscitation - SQH ENDOCRINE: - q4 npo acchecks MUSCULOSKELETAL/SKIN: - PT/OT as warranted post procedure INFECTIOUS DISEASE: Pre-hospital UTI vs. Asymptomatic bacteriuria - Cont Ertapenem, s/p empiric vanc/azithromycin in ED (?empiric for possible PNA) while awaiting urine culture GI PROPHYLAXIS: home ppi DVT PROPHYLAXIS: SCDs, SQH Lines/tubes: - x2 pIVs - bowers 02/24 [facility] for strict I/Os, clean urine sample - colostomy DISPOSITION: ICU care for close hemodynamic monitoring in setting of acute abdominal process with multiple comorbidities CHIEF COMPLAINT / OVERNIGHT EVENTS / HPI: Currently with mild abdominal pain, resolved nausea. Denies chest pain or shortness of breath. MEDICAL HISTORY / ROS: Admission history and ROS reviewed. Pertinent changes as follows: none PHYSICAL EXAM: Heart Rate: [81-103] Temp: [37.2 C (99 F)-38.1 C (100.5 F)] Resp: [14-28] BP: (108-166)/(48-63) Height: [180.3 cm (5' 11 )] Weight: [86.2 kg (190 lb)] SpO2: [85 %-98 %] Physical Exam Physical Exam: GEN: No acute distress, in bed ENT: nasal telangiectasias SKIN: Warm and dry CARDIO: Rate controlled rhythm RESP: Nml resp rate RA without resp distress GI: Soft, NT currently, ND, obese, midline scar, LLQ ostomy draining soft brown stool : indwelling bowers draining yellow urine MSK: DARDEN EXTREM: No pitting edema. RUE palpable AV fistula NEURO: Alert and oriented with GCS 15, SILTx4 PSYCH: Nml affect IMAGING SUMMARY: (summary of new imaging findings, not a copy of dictation) Acute cholecystitis, no concern PNA I have reviewed all medications, laboratory results, and imaging pertinent for today's encounter. Jethro Roper PA-C * João Daniel, PharmD - 02/25/2023 3:16 AM EST Vancomycin Dosing by Pharmacy- INITIAL Jagruti Esparza is a 67 y.o. year old male who Pharmacy has been consulted for vancomycin dosing forabdominal infection. Based on the patient's indication and renal status this patient will be dosed based on a goal AUC of 400-600. Renal function is currently WNL. Visit Vitals BP (!) 108/49 Pulse 90 Temp 37.4 C (99.3 F) (Oral) Resp 26 Lab Results Component Value Date CREATININE 0.90 02/24/2023 CREATININE 0.68 01/20/2023 CREATININE 0.64 01/19/2023 CREATININE 0.63 01/18/2023 Patient weight is No results found for: PTWEIGHT No results found for: CULTURE No intake/output data recorded. @IOTHISSHIFT@ No results found for: PATIENTTEMP Assessment/Plan Patient received a 2000mg dose. Will initiate vancomycin maintenance, 1000 mg every 12 hours. This dosing regimen is predicted by [employer] to result in the following pharmacokinetic parameters: Regimen: 1000 mg IV every 12 hours. Start time: 11:00 on 02/25/2023 Exposure target: AUC24 (range)400-600 mg/L.hr AUC24,ss: 516 mg/L.hr Follow-up level will be ordered on 02/26 at 1st AM draw. Will continue to monitor renal function daily while on vancomycin and order serum creatinine at least every 48 hours if not already ordered. Follow for continued vancomycin needs, clinical response, and signs/symptoms of toxicity. João Daniel, JaninaD documented in this [facility] Work Phone: 1(354) 334-820712-22-2023 Miscellaneous Notes* Care Plan - Sarah Lopez RN - 03/05/2023 5:08 PM EST Problem: Skin Goal: Decreased wound size/increased tissue granulation at next dressing change 03/05/2023 170 by Sarah Lopez RN Outcome: Met 03/05/20231706 by Sarah Lopez RN Reactivated The patient's goals for the shift include The clinical goals for the shift include Pt will remain free of falls and injuries throughout shift * Care Plan - Sarah Lopez RN - 03/05/2023 5:06 PM EST Problem: Fall/Injury Goal: Not fall by end of shift Outcome: Met Goal: Be free from injury by end of the shift Outcome: Met Goal: Verbalize understanding of personal risk factors for fall in the hospital Outcome: Met Goal: Verbalize understanding of risk factor reduction measures to prevent injury from fall in the home Outcome: Met Goal: Use assistive devices by end of the shift Outcome: Met Goal: Pace activities to prevent fatigue by end of the shift Outcome: Met Problem: Pain Goal: My pain/discomfort is manageable Outcome: Met Problem: Safety Goal: Patient will be injury free during hospitalization Outcome: Met Goal: I will remain free of falls Outcome: Met Problem: Daily Care Goal: Daily care needs are met Outcome: Met Problem: Psychosocial Needs Goal: Demonstrates ability to cope with hospitalization/illness Outcome: Met Goal: Collaborate with me, my family, and caregiver to identify my specific goals Outcome: Met Problem: Discharge Barriers Goal: My discharge needs are met Outcome: Met Problem: Skin Goal: Participates in plan/prevention/treatment measures Outcome: Met Goal: Prevent/manage excess moisture Outcome: Met Goal: Prevent/minimize sheer/friction injuries Outcome: Met Goal: Promote/optimize nutrition Outcome: Met Goal: Promote skin healing Outcome: Met Problem: Pain Goal: Takes deep breaths with improved pain control throughout the shift Outcome: Met Goal: Turns in bed with improved pain control throughout the shift Outcome: Met Goal: Walks with improved pain control throughout the shift Outcome: Met Goal: Performs ADL's with improved pain control throughout shift Outcome: Met Goal: Participates in PT with improved pain control throughout the shift Outcome: Met Goal: Free from opioid side effects throughout the shift Outcome: Met Goal: Free from acute confusion related to pain meds throughout the shift Outcome: Met Problem: Pain - Adult Goal: Verbalizes/displays adequate comfort level or baseline comfort level Outcome: Met Problem: Safety - Adult Goal: Free from fall injury Outcome: Met Problem: Discharge Planning Goal: Discharge to home or other facility with appropriate resources Outcome: Met Problem: Chronic Conditions and Co-morbidities Goal: Patient's chronic conditions and co-morbidity symptoms are monitored and maintained or improved Outcome: Met The patient's goals for the shift include The clinical goals for the shift include Pt will remain free of falls and injuries throughout shift * Care Plan - Adriana Weber RN - 03/05/2023 12:17 AM EST The clinical goals for the shift include Pt will remain hds throughout shift * Care Plan - Sarah Lopez RN - 03/04/2023 12:36 PM EST Problem: Skin Goal: Decreased wound size/increased tissue granulation at next dressing change Outcome: Met Flowsheets (Taken 03/04/2023 1235) Decreased wound size/increased tissue granulation at next dressing change: Promote sleep for wound healing Protective dressings over bony prominences The patient's goals for the shift include The clinical goals for the shift include Pt will remain hds throughout shift * Care Plan - Onelia Crisostomo RN - 03/04/2023 3:33 AM EST Problem: Fall/Injury Goal: Not fall by end of shift Outcome: Progressing Goal: Be free from injury by end of the shift Outcome: Progressing Goal: Verbalize understanding of personal risk factors for fall in the hospital Outcome: Progressing Goal: Verbalize understanding of risk factor reduction measures to prevent injury from fall in the home Outcome: Progressing Goal: Use assistive devices by end of the shift Outcome: Progressing Goal: Pace activities to prevent fatigue by end of the shift Outcome: Progressing Problem: Pain Goal: My pain/discomfort is manageable Outcome: Progressing Problem: Safety Goal: Patient will be injury free during hospitalization Outcome: Progressing Goal: I will remain free of falls Outcome: Progressing Problem: Daily Care Goal: Daily care needs are met Outcome: Progressing Problem: Psychosocial Needs Goal: Demonstrates ability to cope with hospitalization/illness Outcome: Progressing Goal: Collaborate with me, my family, and caregiver to identify my specific goals Outcome: Progressing Problem: Discharge Barriers Goal: My discharge needs are met Outcome: Progressing Problem: Skin Goal: Decreased wound size/increased tissue granulation at next dressing change Outcome: Progressing Goal: Participates in plan/prevention/treatment measures Outcome: Progressing Goal: Prevent/manage excess moisture Outcome: Progressing Goal: Prevent/minimize sheer/friction injuries Outcome: Progressing Goal: Promote/optimize nutrition Outcome: Progressing Goal: Promote skin healing Outcome: Progressing Problem: Pain Goal: Takes deep breaths with improved pain control throughout the shift Outcome: Progressing Goal: Turns in bed with improved pain control throughout the shift Outcome: Progressing Goal: Walks with improved pain control throughout the shift Outcome: Progressing Goal: Performs ADL's with improved pain control throughout shift Outcome: Progressing Goal: Participates in PT with improved pain control throughout the shift Outcome: Progressing Goal: Free from opioid side effects throughout the shift Outcome: Progressing Goal: Free from acute confusion related to pain meds throughout the shift Outcome: Progressing The patient's goals for the shift include The clinical goals for the shift include pt's heparin will be therapeutic times 2 by end of shift, and no signs of bleeding * Care Plan - Yudi Jose RN - 03/03/2023 3:57 PM EST The patient's goals for the shift include The clinical goals for the shift include the patient will participate in ADL'S Problem: Fall/Injury Goal: Not fall by end of shift Outcome: Progressing Goal: Be free from injury by end of the shift Outcome: Progressing Goal: Verbalize understanding of personal risk factors for fall in the hospital Outcome: Progressing Goal: Use assistive devices by end of the shift Outcome: Progressing Problem: Pain Goal: My pain/discomfort is manageable Outcome: Progressing Problem: Safety Goal: I will remain free of falls Outcome: Progressing Problem: Skin Goal: Decreased wound size/increased tissue granulation at next dressing change Outcome: Progressing Flowsheets (Taken 03/03/2023 1555) Decreased wound size/increased tissue granulation at next dressing change: Protective dressings over bony prominences Goal: Participates in plan/prevention/treatment measures Outcome: Progressing Flowsheets (Taken 03/01/2023 1225) Participates in plan/prevention/treatment measures: Elevate heels Goal: Prevent/manage excess moisture Outcome: Progressing Goal: Prevent/minimize sheer/friction injuries Outcome: Progressing Flowsheets (Taken 03/03/2023 1555) Prevent/minimize sheer/friction injuries: HOB 30 degrees or less Goal: Promote skin healing Outcome: Progressing Flowsheets (Taken 03/03/2023 1555) Promote skin healing: Protective dressings over bony prominences * Care Plan - Hunter Woodruff RN - 03/03/2023 12:21 AM EST The patient's goals for the shift include The clinical goals for the shift include patient will have controlled pain throughout shift * Care Plan - Annamarie Mckeon RN - 03/02/2023 10:31 PM EST The patient's goals for the shift include The clinical goals for the shift include patient will have controlled pain throughout shift Will assess patient's pain and give meds as needed * Post-Procedure Note - Leonardo Welch MD - 03/02/2023 5:42 PM EST Physician Transition of Care Summary Invasive Cardiovascular Lab Procedure Date: 03/02/2023 Attending: * Leonardo Welch - Primary Resident/Fellow/Other Waste/Materials Exchange Specialist: Surgeon(s) and Role: Indications: Pre-op Diagnosis * Sepsis, due to unspecified organism, unspecified whether acute organ dysfunction present (CMS/HCC) [A41.9] * NSTEMI (non-ST elevated myocardial infarction) (CMS/HCC) [I21.4] Post-procedure diagnosis: Post-op Diagnosis * Sepsis, due to unspecified organism, unspecified whether acute organ dysfunction present (CMS/HCC) [A41.9] * NSTEMI (non-ST elevated myocardial infarction) (CMS/HCC) [I21.4] Procedure(s): * Left Heart Cath Procedure Findings: LAD VARIETY SAW OPERATOR Description of the Procedure: LHC/coronary angiogram/LVEDP via RFA - Perclose Complications: None Stents/Implants: Anticoagulation/Antiplatelet Plan: None Estimated Blood Loss: 5 mL Anesthesia: Moderate Sedation Anesthesia Staff: No anesthesia staff entered. Any Specimen(s) Removed: No specimens collected during this procedure. Disposition: Floor Electronically signed by: Leonardo Welch MD, 03/02/2023 5:42 PM * Care Plan - Yudi Jose RN - 03/02/2023 2:48 PM EST The patient's goals for the shift include The clinical goals for the shift include the patient will go for cardiac cath today Problem: Fall/Injury Goal: Not fall by end of shift Outcome: Progressing Goal: Be free from injury by end of the shift Outcome: Progressing Problem: Pain Goal: My pain/discomfort is manageable Outcome: Progressing Problem: Safety Goal: I will remain free of falls Outcome: Progressing Problem: Daily Care Goal: Daily care needs are met Outcome: Progressing Problem: Daily Care Goal: Daily care needs are met Outcome: Progressing Problem: Psychosocial Needs Goal: Demonstrates ability to cope with hospitalization/illness Outcome: Progressing Problem: Skin Goal: Prevent/manage excess moisture Flowsheets (Taken 03/02/2023 1447) Prevent/manage excess moisture: Cleanse incontinence/protect with barrier cream Goal: Prevent/minimize sheer/friction injuries Flowsheets (Taken 03/02/2023 1447) Prevent/minimize sheer/friction injuries: HOB 30 degrees or less Turn/reposition every 2 hours/use positioning/transfer devices * Care Plan - Annamarie Mckeon RN - 03/01/2023 10:50 PM EST The patient's goals for the shift include The clinical goals for the shift include patient will be safe throughout entire shift Will continue to monitor patient and offer Q2hr turns * Care Plan - Yudi Jose RN - 03/01/2023 12:26 PM EST The patient's goals for the shift include work with PT. Problem: Skin Goal: Participates in plan/prevention/treatment measures Flowsheets (Taken 03/01/2023 1225) Participates in plan/prevention/treatment measures: Elevate heels Goal: Prevent/manage excess moisture Flowsheets (Taken 03/01/2023 1225) Prevent/manage excess moisture: Cleanse incontinence/protect with barrier cream Goal: Prevent/minimize sheer/friction injuries Flowsheets (Taken 03/01/2023 1225) Prevent/minimize sheer/friction injuries: HOB 30 degrees or less Use pull sheet The clinical goals for the shift include patient will be free from injury during the shift * Care Plan - Onelia Crisostomo RN - 03/01/2023 2:57 AM EST Problem: Fall/Injury Goal: Not fall by end of shift Outcome: Progressing Goal: Be free from injury by end of the shift Outcome: Progressing Goal: Verbalize understanding of personal risk factors for fall in the hospital Outcome: Progressing Goal: Verbalize understanding of risk factor reduction measures to prevent injury from fall in the home Outcome: Progressing Goal: Use assistive devices by end of the shift Outcome: Progressing Goal: Pace activities to prevent fatigue by end of the shift Outcome: Progressing Problem: Pain Goal: My pain/discomfort is manageable Outcome: Progressing Problem: Safety Goal: Patient will be injury free during hospitalization Outcome: Progressing Goal: I will remain free of falls Outcome: Progressing Problem: Daily Care Goal: Daily care needs are met Outcome: Progressing Problem: Psychosocial Needs Goal: Demonstrates ability to cope with hospitalization/illness Outcome: Progressing Goal: Collaborate with me, my family, and caregiver to identify my specific goals Outcome: Progressing Problem: Discharge Barriers Goal: My discharge needs are met Outcome: Progressing Problem: Skin Goal: Decreased wound size/increased tissue granulation at next dressing change Outcome: Progressing Goal: Participates in plan/prevention/treatment measures Outcome: Progressing Goal: Prevent/manage excess moisture Outcome: Progressing Goal: Prevent/minimize sheer/friction injuries Outcome: Progressing Goal: Promote/optimize nutrition Outcome: Progressing Goal: Promote skin healing Outcome: Progressing The patient's goals for the shift include The clinical goals for the shift include pt remains free of infection by prividing CHG bath and bowers care * Care Plan - Chela Trinh RN - 02/26/2023 10:31 AM EST Problem: Fall/Injury Goal: Not fall by end of shift Outcome: Progressing Goal: Be free from injury by end of the shift Outcome: Progressing Goal: Verbalize understanding of personal risk factors for fall in the hospital Outcome: Progressing Goal: Verbalize understanding of risk factor reduction measures to prevent injury from fall in the home Outcome: Progressing Goal: Use assistive devices by end of the shift Outcome: Progressing Goal: Pace activities to prevent fatigue by end of the shift Outcome: Progressing Problem: Pain Goal: My pain/discomfort is manageable Outcome: Progressing Flowsheets (Taken 02/26/2023 1028) Resident's pain/discomfort is manageable: Include resident/family/caregiver in decisions related to pain management Offer non-pharmacological pain management interventions Identify and avoid pain triggers Administer pain medication prior to activities that may trigger pain Problem: Safety Goal: Patient will be injury free during hospitalization Outcome: Progressing Goal: I will remain free of falls Outcome: Progressing Flowsheets (Taken 02/26/2023 1028) Resident will remain free of falls: Utilize fall response kit Accompany resident as ordered (ex. 1:1, stand-by assist, dayroom monitoring, 15 minute checks, lineof sight) Maintain bed at position as ordered (chair height, low bed) Consult with physical therapy as needed Assess and monitor medications that may increase fall risk Apply bed/chair alarms as appropriate Visual checks per facility policy Problem: Daily Care Goal: Daily care needs are met Outcome: Progressing Flowsheets (Taken 02/26/2023 1028) Daily care needs are met: Encourage independent activity per ability Assess and monitor ability to perform self care and identify potential discharge needs Assess skin integrity/risk for skin breakdown Provide mouth care Assist patient with activities of daily living as needed Include patient/family/caregiver in decisions related to daily care Problem: Psychosocial Needs Goal: Demonstrates ability to cope with hospitalization/illness Outcome: Progressing Flowsheets (Taken 02/26/2023 1028) Demonstrates ability to cope with hospitalization/illness: Encourage verbalization of feelings/concerns/expectations Encourage resident to set and complete small goals for self Include resident/family/caregiver in decisions related to psychosocial needs Provide low-stimulation environment as needed Encourage participation in diversional activities Assist resident to identify and practice own strengths and abilities Reinforce positive adaptation of new coping behaviors Goal: Collaborate with me, my family, and caregiver to identify my specific goals Outcome: Progressing Flowsheets (Taken 02/26/2023 1028) Cultural Requests During Hospitalization: Nonr Spiritual Requests During Hospitalization: [facility] Problem: Discharge Barriers Goal: My discharge needs are met Outcome: Progressing Flowsheets (Taken 02/26/2023 1028) Resident's discharge needs are met: Identify potential discharge barriers on admission and throughout stay Involve resident/family/caregiver in discharge planning process Problem: Skin Goal: Decreased wound size/increased tissue granulation at next dressing change Outcome: Progressing Flowsheets (Taken 02/26/2023 1028) Decreased wound size/increased tissue granulation at next dressing change: Protective dressings over bony prominences Promote sleep for wound healing Utilize specialty bed per algorithm Goal: Participates in plan/prevention/treatment measures Outcome: Progressing Flowsheets (Taken 02/26/2023 1028) Participates in plan/prevention/treatment measures: Discuss with provider PT/OT consult Elevate heels Increase activity/out of bed for meals Goal: Prevent/manage excess moisture Outcome: Progressing Flowsheets (Taken 02/26/2023 1028) Prevent/manage excess moisture: Cleanse incontinence/protect with barrier cream Follow provider orders for dressing changes Monitor for/manage infection if present Moisturize dry skin Goal: Prevent/minimize sheer/friction injuries Outcome: Progressing Flowsheets (Taken 02/26/2023 1028) Prevent/minimize sheer/friction injuries: Complete micro-shifts as needed if patient unable. Adjust patient position to relieve pressure points, not a full turn Turn/reposition every 2 hours/use positioning/transfer devices HOB 30 degrees or less Use pull sheet Increase activity/out of bed for meals Utilize specialty bed per algorithm Goal: Promote/optimize nutrition Outcome: Progressing Flowsheets (Taken 02/26/2023 1028) Promote/optimize nutrition: Monitor/record intake including meals Goal: Promote skin healing Outcome: Progressing Flowsheets (Taken 02/26/2023 1028) Promote skin healing: Assess skin/pad under line(s)/device(s) Rotate device position/do not position patient on device Turn/reposition every 2 hours/use positioning/transfer devices Ensure correct size (line/device) and apply per herbicide sprayer instructions Protective dressings over bony prominences Problem: Pain Goal: Takes deep breaths with improved pain control throughout the shift Outcome: Progressing Goal: Turns in bed with improved pain control throughout the shift Outcome: Progressing Goal: Walks with improved pain control throughout the shift Outcome: Progressing Goal: Performs ADL's with improved pain control throughout shift Outcome: Progressing Goal: Participates in PT with improved pain control throughout the shift Outcome: Progressing Goal: Free from opioid side effects throughout the shift Outcome: Progressing Goal: Free from acute confusion related to pain meds throughout the shift Outcome: Progressing * Pre-Sedation Documentation - Jeanne Oscar PA-C - 02/25/2023 5:01 PM EST Sedation Plan ASA 3 Mallampati class: II. Risks, benefits, and alternatives discussed with patient. * Post-Procedure Note - Onelia Martínez MD - 02/25/2023 5:32 AM EST Interventional Radiology Brief Postprocedure Note Attending: Dr. Man Waste/Materials Exchange Specialist: Dr. Martínez Diagnosis: Acute cholecystitis Description of procedure: Status post successful IR US and fluoroscopic guided percutaneous cholecystostomy tube placement. Anesthesia: Local Complications: None Estimated Blood Loss: none 5 mL of bile was collected and sent for culture. See detailed result report with images in PACS. The patient tolerated the procedure well without incident or complication and is in stable condition. * Pre-Procedure Note - Onelia Martínez MD - 02/25/2023 4:32 AM EST Interventional Radiology Preprocedure Note Indication for procedure: The encounter diagnosis was Right upper quadrant abdominal pain. Acute cholecystitis. Relevant review of systems: NA Relevant Labs: Lab Results Component Value Date CREATININE 0.90 02/24/2023 EGFR >90 02/24/2023 INR 1.3 (H) 02/25/2023 PROTIME 15.2 (H) 02/25/2023 Planned Sedation/Anesthesia: Minimal Airway assessment: normal Directed physical examination: Physical Exam HENT: Head: Normocephalic. Cardiovascular: Rate and Rhythm: Normal rate. Pulmonary: Effort: Pulmonary effort is normal. Neurological: Mental Status: He is alert. Mallampati: I (soft palate, uvula, fauces, and tonsillar pillars visible) ASA Score: ASA 3 - Patient with moderate systemic disease with functional limitations Benefits, risks and alternatives of procedure and planned sedation have been discussed with the patient and/or their direct marketing representative. All questions answered and they agree to proceed. * Hospital Course - Se Rivas MD - 02/25/2023 3:49 AM EST Jagruti Esparza is a 67M with PMH of R kidney transplant 2013 on immunosuppressive therapy, afib/flutter on flecainide/diltiazem, complicated diverticulitis with pericolonic abscess s/p IR drain and laparoscopic sigmoid resection/end colostomy Jan 2023, [facility] who was transferred from [facility] on 02/24/23 for acalculous cholecystitis. Patient also had incidental troponin 6700. Due to his troponemia, ACS deferred surgery and he received a percutaneous cholecystostomy tube by IR 02/25. Aspirate cultures grew MDR E Coli and he did briefly required postop pressors, completing 5-day course of antibiotics. He also received medical treatment for NSTEMI with ASA load, heparin, and statin. He later underwent LHC 03/02 which showed chronic total occlusion of LAD, no intervention. He was started on empagliflozin and Eliquis by cardiology, instructed to stop flecainide. Patient will require cardiology and ACS follow-up with biliary cholangiogram upon discharge. He wasrecommended SNF placement but elected to go home with home health care. [facility]: [phone]) 716-409812-22-2023 Nurse Note* Adriana Weber RN - 03/05/2023 12:23 AM EST This nurse took over care of this patient. * Amanda Oro RN - 02/28/2023 6:29 PM EST Admission note.patient admitted to [place] [address] from icu with * Felicia Reese RN - 02/25/2023 1:39 PM EST 02/25/23 1339 IV Team asked to place PIV. Two attempts made to place Accucath. Ressistance met, unable to advancecatheter. Bedside RN made aware Felicia Reese RN [facility] Work Phone: [phone]) 579-112612-20-2023 Consult note* Randy Ivan MD - 03/03/2023 2:13 PM ESTAssociated Order(s): IP CONSULT TO ELECTROPHYSIOLOGY Inpatient Cardiology Consult Note Reason for consult: A-fib management HPI: Jagruti Esparza is a 67-year-old male with a PMH paroxysmal atrial flutter/fibrillation not on AC, mild aortic stenosis, renal transplant 2012, and and colostomy for diverticulitis 01/2013 who presented from outside hospital with concerns for cholecystitis found to have acute acalculous cholecystitis s/p IR placement of percutaneous cholecystostomy tube on 02/25. Troponins were checked on admission and found to be 6600->6500->5900 with EKG showing poor R wave progression. ASA loaded. Chestpain/pressure freee. Previous echo 08/04 with normal biventricular function and moderately dilated biatria. Repeat echo AM 02/25 in s/o concern for NSTEMI no WMA's, low normal EF 50-55%, normal RV func tion, and mild . Possible inferior wall hypokinesis. CT chest with severe coronary calcifications. Of note, patient was taking flecainide at home, maintained in NSR, not on AC due to hx of GI bleed. Patient underwent left heart cath showed LAD VARIETY SAW OPERATOR with collaterals R-L, mod mid- distal LM disease with eccentric calcium with brisk Cx/OM flow. Considering outpt evaluation for VARIETY SAW OPERATOR intervention if acceptable bleeding risk. At bedside eval, patient has no acute complaints. All system reviewed and negative unless mentioned above. Cardiac studies: EKG on 03/02 showed sinus tachycardia TTE on 02/25 CONCLUSIONS: 1. Left ventricular systolic function is low normal with a 50-55% estimated ejection fraction. 2. Poorly visualized anatomical structures due to suboptimal image quality. 3. The right atrium is mild to moderately dilated. 4. Mildly elevated RVSP. 5. Mild aortic valve stenosis. Left heart cath on 02/25 CONCLUSIONS: 1. Indication: NSTEMI in setting of gallbladder procedure. 2. LHC/coronary angiogram/LVEDP. 3. LAD VARIETY SAW OPERATOR with collaterals R-L. 4. Moderate mid-distal LM disease with eccentric calcium (towards LAD) with brisk Cx/OM flow. 5. GDMT preop for cholecystectomy; consider outpt evaluation for VARIETY SAW OPERATOR intervention if symptomatic. 6. Left Ventricular end-diastolic pressure = 10. Current Facility-Administered Medications: acetaminophen (Tylenol) tablet 650 mg, 650 mg, oral, q6h PRN, Ludy Chandler MD, 650 mg at alteplase (Cathflo Activase) injection 2 mg, 2 mg, intra-catheter, PRN, Paddy Marcano MD aspirin chewable tablet 81 mg, 81 mg, oral, Daily, Paddy Marcano MD, 81 mg at 03/03/23911 atorvastatin (Lipitor) tablet 40 mg, 40 mg, oral, Nightly, Paddy Marcano MD, 40 mg at 03/02/232052 azaTHIOprine (Imuran) tablet 50 mg, 50 mg, oral, Daily, Paddy Marcano MD, 50 mg at 03/03/23910 benzocaine-menthol (Cepastat Sore Throat) 15-3.6 mg lozenge 1 lozenge, 1 lozenge, Mouth/Throat, q2hPRN, Se Rivas MD benzonatate (Tessalon) capsule 100 mg, 100 mg, oral, TID PRN, Ludy Chandler MD dextrose 10 % in water (D10W) infusion, 0.3 g/kg/hr, intravenous, Once PRN, Paddy Marcano MD dextrose 10 % in water (D10W) infusion, 0.3 g/kg/hr, intravenous, Once PRN, Paddy Marcano MD dextrose 50 % injection 25 g, 25 g, intravenous, q15 min PRN, Paddy Marcano MD dextrose 50 % injection 25 g, 25 g, intravenous, q15 min PRN, Paddy Marcano MD dilTIAZem XR (Dilacor XR) 24 hr capsule 180 mg, 180 mg, oral, Daily, Paddy Marcano MD, 180 mg at 03/03/23 0900 enoxaparin (Lovenox) syringe 40 mg, 40 mg, subcutaneous, q24h, Paddy Marcano MD, 40 mg at 03/03/23 1144 glucagon (Glucagen) injection 1 mg, 1 mg, intramuscular, q15 min PRN, Paddy Marcano MD glucagon (Glucagen) injection 1 mg, 1 mg, intramuscular, q15 min PRN, Paddy Marcano MD LORazepam (Ativan) injection 0.5 mg, 0.5 mg, intravenous, q5 min PRN, Se Rivas MD metoprolol tartrate (Lopressor) injection 5 mg, 5 mg, intravenous, Once, Se Rivas MD metoprolol tartrate (Lopressor) injection 5 mg, 5 mg, intravenous, Once PRN, Se Rivas MD metoprolol tartrate (Lopressor) injection 5 mg, 5 mg, intravenous, Once PRN, Se Rivas MD metoprolol tartrate (Lopressor) injection 5 mg, 5 mg, intravenous, Once PRN, Se Rivas MD metoprolol tartrate (Lopressor) injection 5 mg, 5 mg, intravenous, Once PRN, Se Rivas MD metoprolol tartrate (Lopressor) tablet 100 mg, 100 mg, oral, Once, Se Rivas MD metoprolol tartrate (Lopressor) tablet 100 mg, 100 mg, oral, Once PRN, Se Rivas MD metoprolol tartrate (Lopressor) tablet 100 mg, 100 mg, oral, Once, Se Rivas MD metoprolol tartrate (Lopressor) tablet 100 mg, 100 mg, oral, Once PRN, Se Rivas MD nitroglycerin (Nitrostat) SL tablet 0.8 mg, 0.8 mg, sublingual, Once, Se Rivas MD nitroglycerin (Nitrostat) SL tablet 0.8 mg, 0.8 mg, sublingual, Once, Se Rivas MD oxyCODONE (Roxicodone) immediate release tablet 2.5 mg, 2.5 mg, oral, q4h PRN, Paddy Marcano MD, 2.5mg at 03/03/23 0911 oxyCODONE (Roxicodone) immediate release tablet 5 mg, 5 mg, oral, q4h PRN, Paddy Marcano MD, 5 mg at105/03/222055 pantoprazole (ProtoNix) EC tablet 40 mg, 40 mg, oral, Daily before breakfast, Paddy Marcano MD, 40 mg at 03/03/23 0911 polyethylene glycol (Glycolax, Miralax) packet 17 g, 17 g, oral, Daily, Se Rivas MD, 17 g at 03/03/23 1144 predniSONE (Deltasone) tablet 5 mg, 5 mg, oral, Daily, Rosaline Rivas MD, 5 mg at 03/03/23 0912 rOPINIRole (Requip) tablet 1 mg, 1 mg, oral, Nightly, Paddy Marcano MD, 1 mg at 03/02/232052 sodium chloride ([place]) 0.65 % nasal spray 1 spray, 1 spray, Each Nostril, 4x daily PRN, Se Rivas MD sodium chloride 0.9% flush 10 mL, 10 mL, intra-catheter, q12h, Paddy Marcano MD, 10 mL at 03/03/23 1415 sodium chloride 0.9% flush 10 mL, 10 mL, intra-catheter, PRN, Paddy Marcano MD sulfamethoxazole-trimethoprim (Bactrim) 400-80 mg per tablet 1 tablet, 1 tablet, oral, q AM, MD Michelle, 1 tablet at 03/03/23 0912 tacrolimus (Prograf) capsule 0.5 mg, 0.5 mg, oral, BID, Rosaline Rivas MD, 0.5 mg at 03/03/23 0911 tamsulosin (Flomax) 24 hr capsule 0.4 mg, 0.4 mg, oral, Daily, Paddy Marcano MD, 0.4 mg at 03/03/23 0911 Objective: Vitals: 03/03/23 1210 BP: 112/52 Pulse: 82 Resp: 19 Temp: 37 C (98.6 F) SpO2: 95% Exam: General: chronically ill appearing obese male resting in bed, receiving PRBC, on room air. NAD HEENT: EOMI, MMM Cardiac: regular rate and rhythm, no murmurs, rubs or gallops Pulmonary: Clear to auscultation anteriorly Extremities: bilateral distal pedal edema, RUE Aneurysm Abd: ostomomy: pink stoma, no output : [place] with dark yellow urine Labs/Imaging: Results from last 72 hours Lab Units 03/03/23 0637 SODIUM mmol/L 130* POTASSIUM mmol/L 5.2 CO2 mmol/L 23 BUN mg/dL 10 CREATININE mg/dL 0.52 MAGNESIUM mg/dL 1.60 PHOSPHORUS mg/dL 1.8* Results from last 72 hours Lab Units 03/03/23 0637 WBC AUTO x10*3/uL 7.0 HEMOGLOBIN g/dL 9.9* PLATELETS AUTO x10*3/uL 274 Assessment and Plan: Hx of pAfib currently maintaining sinus rhythm on flecainide at home. Not on anticoagulation due tohistory of GI bleed. Patient now found to have coronary artery disease warranting discontinuation of flecainide. Echo obtained showed normal EF 50 to 55%. EP consulted for assistance with AAD management. Impression Patient has remained in NSR. -Agree with discontinuing flecainide given CAD -Patient does not need any antiarrythmic medication at this time as he is in normal sinus rhythm. -Continue diltiazem 180 mg daily -[id number] is at least 2 for (age and now NSTEMI ). Recommend anticoagulation for stroke prevention if acceptable bleeding risk -If in the future he goes into Afib, he will need to be re-evaluated with re- initiation of antiarrhythmic medication with either amio or Tikosyn in which case he will definitely need anticoagulation. Discussed with attending, Dr Jazmin Dobbs. Randy Ivan MD Intelligence Intern PGY4 * Jagruti Vicente MD - 02/28/2023 12:26 PM EST Reason For Consult Transfer to medicine History Of Present Illness Jagruti Esparza is a 67 year old male with PMHx ESRD s/p (LUKT 2012 on immunosuppression), pAF (not onAC, on flecainide/diltiazem), mild aortic stenosis and recent complicated diverticulitis associatedwith pericolonic abscess (s/p IR abscess drainage and laparoscopic sigmoid resection w/ end colostomy and umbilical hernia repair 01/15/23) that presented to [facility] on 02/24 for 2-3 days of ongoing RUQ/epigastric pain. Patient noted to have leukocytosis to 23.8, elevated troponins (6669->6518->5973), elevated lactate (5.1) and CT evidence of gallbladder wall thickening with pericholecystic fluid concerning for acalculous cholecystitis. Patient was started on empiric vancomycin, azithromycin, and ertapenum. Patient was ultimately admitted to [facility] and had percutaneous cholecystostomy tube placed by IR on 02/25 and patient required vasopressor support with levophed from 02/25-02/26/23. A ntibiotics were later narrowed to aztreonam/flagyl and most recently meropeneum with planned stop date 03/01. Transplant team consulted for immunosuppression who recommend continuing tacrolimus 0.5 mg BID (with daily tac trough level) and prednisone 5 mg daily and holding Imuran while still on antibiotics. Cardiology consulted due to concern for NSTEMI, who recommended holding flecainide/diltiazem for now and treated NSTEMI medically with ASA/Atorvastatin/24 hours of heparin gtt with plans for eventual coronary angiogram when patient stabilized from infectious perspective. Surgery requesting transfer to medicine service for further management upon leaving [facility]ICU. Past Medical History As above Surgical History -LUKT 2013 -IR intrabdominal abscess drainage 01/15/23 -laparoscopic sigmoid resection w/ end colostomy and umbilical hernia repair 01/15/23 -Percutaneous cholecystectomy tube 02/25/2023 Social History He reports that he has never smoked. He has never used smokeless tobacco. He reports that he does not currently use alcohol. He reports that he does not use drugs. Family History No family history on file. Allergies Cephalexin, Tobramycin, Meperidine, Erythromycin, and Penicillins Review of Systems Denies TRENT, CP, SOB, abd pain, N/V/D. Physical Exam Gen: Elderly male, resting in bed comfortably, NAD HEENT: EOMI, no scleral icterus CV: RRR, no murmurs, rubs, or gallops Lungs: CTAB, no wheezes, rales, or rhonchi Abd: R per kerline drain in place draining clear fluid small pieces of tissue, colostomy in place draining brown stool, mild tenderness to palpation near drain sites Ext: No peripheral edema, SCD's in place, Old RUE AV Fistula noted Neuro: A&O x4, spontaneously moving all extremities Psych: Appropriate mood and behavior Last Recorded Vitals Blood pressure (!) 148/43, pulse 89, temperature 36.4 C (97.5 F), resp. rate 14, height 1.803 m (5'10.98 ), weight 86.1 kg (189 lb 13.1 oz), SpO2 97 %. Relevant Results Scheduled medications acetaminophen, 650 mg, oral, q6h aspirin, 81 mg, oral, Daily atorvastatin, 40 mg, oral, Nightly [START ON 03/02/2023] azaTHIOprine, 50 mg, oral, Daily dilTIAZem XR, 180 mg, oral, Daily enoxaparin, 40 mg, subcutaneous, q24h [Held by provider] flecainide, 50 mg, oral, q8h TREMAINE lidocaine, 5 mL, infiltration, Once meropenem, 1 g, intravenous, q8h pantoprazole, 40 mg, oral, Daily before breakfast perflutren lipid microspheres, 0.5-10 mL of dilution, intravenous, Once in imaging perflutren protein A microsphere, 0.5 mL, intravenous, Once in imaging polyethylene glycol, 17 g, oral, Every other day predniSONE, 5 mg, oral, Daily rOPINIRole, 1 mg, oral, Nightly sodium chloride 0.9%, 10 mL, intra-catheter, q12h sulfamethoxazole-trimethoprim, 1 tablet, oral, q AM sulfur hexafluoride microsphr, 2 mL, intravenous, Once in imaging tacrolimus, 0.5 mg, oral, BID tamsulosin, 0.4 mg, oral, Daily Continuous medications PRN medications PRN medications: alteplase, dextrose 10 % in water (D10W), dextrose 10 % in water (D10W), dextrose,dextrose, glucagon, glucagon, oxyCODONE, oxyCODONE, oxygen, sodium chloride 0.9% Results for orders placed or performed during the hospital encounter of 02/24/23 (from the past 24 hour(s)) POCT GLUCOSE Result Value Ref Range POCT Glucose 137 (H) 74 - 99 mg/dL Heparin Assay, UFH Result Value Ref Range Heparin Unfractionated 0.2 See Comment Below for Therapeutic Ranges IU/mL POCT GLUCOSE Result Value Ref Range POCT Glucose 132 (H) 74 - 99 mg/dL CBC Result Value Ref Range WBC 10.2 4.4 - 11.3 x10*3/uL nRBC 0.0 0.0 - 0.0 /100 WBCs RBC 3.11 (L) 4.50 - 5.90 x10*6/uL Hemoglobin 7.2 (L) 13.5 - 17.5 g/dL Hematocrit 22.9 (L) 41.0 - 52.0 % MCV 74 (L) 80 - 100 fL MCH 23.2 (L) 26.0 - 34.0 pg MCHC 31.4 (L) 32.0 - 36.0 g/dL RDW 18.1 (H) 11.5 - 14.5 % Platelets 153 150 - 450 x10*3/uL Calcium, ionized Result Value Ref Range POCT Calcium, Ionized 1.47 (H) 1.1 - 1.33 mmol/L Magnesium Result Value Ref Range Magnesium 1.82 1.60 - 2.40 mg/dL Renal function panel Result Value Ref Range Glucose 93 74 - 99 mg/dL Sodium 131 (L) 136 - 145 mmol/L Potassium 4.6 3.5 - 5.3 mmol/L Chloride 105 98 - 107 mmol/L Bicarbonate 22 21 - 32 mmol/L Anion Gap 9 (L) 10 - 20 mmol/L Urea Nitrogen 15 6 - 23 mg/dL Creatinine 0.73 0.50 - 1.30 mg/dL eGFR >90 >60 mL/min/1.73m*2 Calcium 8.7 8.6 - 10.6 mg/dL Phosphorus 2.5 2.5 - 4.9 mg/dL Albumin 1.9 (L) 3.4 - 5.0 g/dL POCT GLUCOSE Result Value Ref Range POCT Glucose 93 74 - 99 mg/dL POCT GLUCOSE Result Value Ref Range POCT Glucose 78 74 - 99 mg/dL POCT GLUCOSE Result Value Ref Range POCT Glucose 103 (H) 74 - 99 mg/dL POCT GLUCOSE Result Value Ref Range POCT Glucose 123 (H) 74 - 99 mg/dL XR chest 1 view Result Date: 02/26/2023 Interpreted By: Maria Luisa Minaya, STUDY: Chest, single AP view. INDICATION: Signs/Symptoms:line placement. COMPARISON: Chest radiograph 02/24/2023. CT chest 02/25/2023 ACCESSION NUMBER(S): [id number] ORDERING CLINICIAN: DONNIE GRIFFIN FINDINGS: Left IJ central venous catheter tip in the cavoatrial junction. The cardiac silhouette size is within normal limits. There is no focal consolidation, edema or pneumothorax. No sizeable pleural effusion. No acute osseous abnormality. Left basilar/retrocardiac atelectatic changes noted. 1. Left basilar atelectasis without focal pulmonary consolidation. 2. Left IJ central venous catheter tip in the cavoatrial junction. MACRO: None. Signed by: Maria Luisa Minaya 02/26/2023 9:18 AM Dictation workstation: [id number] Transthoracic Echo (TTE) Limited Result Date: 02/25/2023 [facility], [address] [place] [address] and TRANSTHORACIC ECHOCARDIOGRAM REPORT Patient Name: JAGRUTI Oquendo Physician: [id number] Vincent Bliss MD Study Date: 02/25/2023 Ordering Provider: [id number] ESPINO MRN/PID: [id number] Fellow: A ccession#: [id number] Nurse: Date of /Age: 10 1955 Gutter Installer: Sarah Velasquez RDCS years Gender: M Additional Staff: Height: 177.80 cm Admit Date: 02/24/2023 Weight: 85.73 kg Admission Status: Inpatient - STAT BSA: 2.04 m2 Department Location: [facility] Blood Pressure: 131 /38 mmHg Study Type: TRANSTHORACIC ECHO (TTE) LIMITED Diagnosis/ICD: Unspecifiedatrial flutter-I48.92 Indication: atrial flutter, mild CPT Code: Echo Limited-51699; Color Doppler-82547; Doppler Limited-37541 Patient History: Pertinent History: Extensive medical history, HTN, AFlutter, , Kidney transplant (2013). Study Detail: The following Echo studies were performed: 2D, M-Mode, Doppler and color flow. Technically challenging study due to patient lying in supine position and body habitus. PHYSICIAN INTERPRETATION: Left Ventricle: The left ventricular systolic function is low normal, with an estimated ejection fraction of 50-55%. There are no regional wall motion abn ormalities. The left ventricular cavity size is normal. Left ventricular diastolic filling was indeterminate. Left Atrium: The left atrium is mildly dilated. Right Ventricle: The right ventricle is normal in size. There is normal right ventricular global systolic function. Right Atrium: The right atrium is mild to moderately dilated. Aortic Valve: The aortic valve was not well visualized. There is evidence of mild aortic valve stenosis. There is no evidence of aortic valve regurgitation. The peak instantaneous gradient of the aortic valve is 19.0 mmHg. The mean gradient of the aortic valve is8.0 mmHg. Mitral Valve: The mitral valve is mildly thickened. There is mild mitral annular calcification. There is no evidence of mitral valve regurgitation. Tricuspid Valve: The tricuspid valve is structurally normal. There is mild tricuspid regurgitation. The Doppler estimated RVSP is mildly elevated at 39.5 mmHg. Pulmonic Valve: The pulmonic valve is not well visualized. There is trace pulmonic valve regurgitation. Pericardium: There is a trivial to small pericardial effusion. Aorta: The aortic root is abnormal. There is mild dilatation of the aortic root. Systemic Veins: The inferior venacava appears to be of normal size. There is IVC inspiratory collapse greater than 50%. CONCLUSIONS:1. Left ventricular systolic function is low normal with a 50-55% estimated ejection fraction. 2. Poorly visualized anatomical structures due to suboptimal image quality. 3. The right atrium is mild to moderately dilated. 4. Mildly elevated RVSP. 5. Mild aortic valve stenosis. QUANTITATIVE DATA SUMMARY: 2D MEASUREMENTS: Normal Ranges: Ao Root d: 4.00 cm (2.0-3.7cm) LAs: 4.70 cm (2.7-4.0cm) IVSd: 0.90 cm (0.6-1.1cm) LVPWd: 0.90 cm (0.6-1.1cm) LVIDd: 6.60 cm (3.9-5.9cm) LVIDs: 5.30 cm LV Mass Index: 124.9 g/m2 LV % FS 19.7 % RA VOLUME BY A/L METHOD: Normal Ranges: RA Area A4C: 27.0 cm2 LV SYSTOLIC FUNCTION BY 2D PLANIMETRY (MOD): Normal Ranges: EF-A4C View: 53.0 % (>=55%) EF-A2C View: 55.4% EF-Biplane: 54.3 % LV DIASTOLIC FUNCTION: Normal Ranges: MV Peak E: 0.81 m/s (0.7-1.2 m/s) MV Peak A: 0.65 m/s (0.42-0.7 m/s) E/A Ratio: 1.25 (1.0-2.2) MV A Dur: 140.00 msec MV DT: 236 msec (150-240 msec) MITRAL VALVE: Normal Ranges: MV DT: 236 msec (150-240msec) AORTIC VALVE: Normal Ranges: AoV Vmax: 2.18 m/s (<=1.7m/s) AoV Peak P.0 mmHg (<20mmHg) AoV Mean P.0 mmHg (1.7-11.5mmHg) LVOT Max Dav: 1.57 m/s (<=1.1m/s) AoV VTI: 35.00 cm (18-25cm) LVOT VTI: 26.50 cm LVOT Diameter:2.30 cm (1.8-2.4cm) AoV Area, VTI: 3.15 cm2 (2.5-5.5cm2) AoV Area,Vmax: 2.99 cm2 (2.5-4.5cm2) AoV Dimensionless Index: 0.76 RIGHT VENTRICLE: RV Basal 4.80 cm RV Mid 4.10 cm RV Major 9.8 cm TRICUSPID VALVE/RVSP: Normal Ranges: Peak TR Velocity: 3.02 m/s RV Syst Pressure: 39.5 mmHg (< 30mmHg) IVC D rossana: 2.00 cm [id number] Vincent Bliss MD Electronically signed on 02/25/2023 at 12:54:25 PM Final US guided percutaneous cholecystostomy Result Date: 02/25/2023 Interpreted By: Hernandez Man and Bamfo Rose STUDY: US GUIDED PERCUTANEOUS CHOLECYSTOSTOMY; 02/25/2023 5:42 am INDICATION: Signs/Symptoms:perc kerline tube placement. COMPARISON: CT abdomen pelvison 02/25/2023 ACCESSION NUMBER(S): [id number] ORDERING CLINICIAN: ROSA MARIA FITZGERALD TECHNIQUE: I NTERVENTIONALIST(S): Dr. Hernandez Man and Dr. Onelia Martínez CONSENT: The patient was informed of the nature of the proposed procedure. The purposes, alternatives, risks, and benefits were explained and discussed. All questions were answered and consent was obtained. RADIATION EXPOSURE: Fluoroscopytime: 3.3 min. Dose: 28.39 mGy. Dose Area Product (DAP): 53603 mGy*cm2 SEDATION: Moderate consciousIV sedation services (supervision of administration, induction, and maintenance) were provided by the physician performing the procedure with intravenous fentanyl 25mcg mg for 15 minutes. The physician was assisted by an independent trained observer, an interventional radiology nurse, in the continu ous monitoring of patient level of consciousness and physiologic status. MEDICATION/CONTRAST: 50 mLOmnipaque 350 TIME OUT: A time out was performed immediately prior to procedure start with the interventional team, correctly identifying the patient name, date of , MRN, procedure, anatomy (including marking of site and side), patient position, procedure consent form, relevant laboratory and imaging test results, antibiotic administration, safety precautions, and procedure-specific equipment needs. COMPLICATIONS: No immediate adverse events identified. FINDINGS: Patient was placed in a supine position in the right upper quadrant was prepped and draped in usual sterile fashion. Ultrasound interrogation demonstrates an edematous gallbladder with wall thickening and pericholecystic fluid. A subcostal transhepatic route was identified. The skin and subcutaneous tissues anesthetized using lidocaine solution. A small subcutaneous skin incision was made to allow for passage of a 8 Frenchpigtail catheter into the gallbladder lumen under ultrasound and fluoroscopic guidance. Final fluoroscopic images documents the pigtail within the gallbladder. Spontaneous flow of bile encountered. Approximately 5 cc of biliary fluid was aspirated and sent to the lab. The catheter was then connected to a drainage bag. Suture was used to secure the line. Stay Fix dressing applied. The patient tolerated the procedure well and there were no immediate complications. Successful ultrasound and fluoroscopic guided transhepatic cholecystostomy tube placement as above.Rehanger specimen of aspirated bile sent for culture. I personally reviewed the images/study and I agree with radiology tech Dr. Onelia Martínez's findings as stated. This study was interpreted at [facility], [place], [place]. I personally reviewed the image(s) / study and interpretation. I agree with the findings as stated. Performed and dictated at [facility]. MACRO: None. Signed by: Hernandez Man 02/25/2023 12:36 PM Dictation workstation: [id number] ECG 12 lead Result Date: 02/25/2023 Sinus tachycardia Possible Anterior infarct , age undetermined Abnormal ECG When compared with ECG of 14-JAN-2023 17:34, Vent. rate has increased BY 38 BPM T wave inversion now evident in Anterior leads See ED provider note for full interpretation and clinical correlation Confirmed by Kurt Childress ([id number]) on 02/25/2023 5:14:20 AM ECG 12 lead Result Date: 02/25/2023 See ED provider note for full interpretation and clinical correlation Confirmed by Kurt Childress ([id number]) on 02/25/2023 5:12:[address] abdomen pelvis w IV contrast Result Date: 02/25/2023 Interpreted By: Phillip Guerrero and Benza Andrew STUDY: CT CHEST W IV CONTRAST; CT ABDOMEN PELVIS W IV CONTRAST; 02/25/2023 1:59 am; 02/25/2023 1:58 am INDICATION: Signs/Symptoms:evaluate for pna. COMPARISON: CT abdomen/pelvis dated 01/09/2023 ACCESSION NUMBER(S): [id number]; [id number] ORDERING CLINICIAN: ASTER TREVIZO; EVAN PRESTON TECHNIQUE: Contiguous axial images of the chest, abdomen, and pelvis were obtained after the intravenous administration of 75 mL Omnipaque 350 contrast.Coronal and sagittal reformatted images were reconstructed from the axial data. FINDINGS: CT CHEST:MEDIASTINUM AND LYMPH NODES: No enlarged intrathoracic or axillary lymph nodes by imaging criteria.No pneumomediastinum. The esophagus appears within normal limits. VESSELS: Normal caliber aorta without dissection. Moderate aortic atherosclerosis. 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 The main pulmonary artery is ectatic measuring 3.6 cm in diameter. HEART: Mildly enlarged. Severe coronary artery calcifications and likely stents in place. Trace pericardial effusion. LUNG, AIRWAYS, PLEURA: There are trace bilateral pleural effusions with adjacent atelectasis. There is similar appearance compared to prior of a 2 cm right middle lobe density with se veral adjacent satellite nodules or tree-in-bud nodularity. CHEST WALL SOFT TISSUES: Contrast within the subcutaneous soft tissues anterior to the left shoulder, likely secondary to contrast extravasation. Please correlate with neurovascular examination OSSEOUS STRUCTURES: No acute osseous abnormality. Lower cervical anterior spinal fusion hardware. CT ABDOMEN/PELVIS: ABDOMINAL WALL: There is a left lower quadrant colostomy. There is a small fat containing umbilical hernia. The remainder of theabdominal wall is unremarkable. LIVER: No significant parenchymal abnormality. BILE DUCTS: Slight intrahepatic biliary ductal prominence. The extrahepatic bile ducts are nondilated. GALLBLADDER: There is wall thickening and pericholecystic fluid/fat stranding. No calcified gallstones are visualized. Layering intermediate density material within the gallbladder lumen may reflect sludge. PANCREAS: No significant abnormality. SPLEEN: No significant abnormality. Accessory splenules are noted. ADRENALS: No significant abnormality. KIDNEYS, URETERS, BLADDER: The left kidney is markedly atrophic andcontains numerous nonobstructing renal calculi. Cervical pole renal cyst and several indeterminate koi left renal cortical hypodensities which are too small to characterize. A transplant kidney isnoted in the right iliac fossa. The transplant kidney demonstrates several hypodensities in its pare nchyma which are too small to characterize but favored to represent simple cysts. 2-3 mm interpolarrenal calculus within the transplant kidney. The right koi kidney is surgically absent. The urinary bladder is decompressed with Bowers catheter in place. There is mild fat stranding surrounding the urinary bladder. REPRODUCTIVE ORGANS: No significant abnormality. VESSELS: No significant abnormality. RETROPERITONEUM/LYMPH NODES: No enlarged lymph nodes. No acute retroperitoneal abnormality. Crescentic soft tissue density region medial to the left kidney may reflect region of fat necrosis or atypical appearing lymph node, similar to the prior exam. BOWEL/MESENTERY/PERITONEUM: Small hiatal hernia. Small duodenal diverticulum. Small bowel is nondilated. The right lateral abdominal wall, ascending colon, and right lateral small bowel loops are not completely included in the field of view. There is colonic diverticulosis. There is a left lower quadrant colostomy without evidence of parastomal hernia. Slight nonspecific fat stranding about the sigmoid stump and descending colon within theleft lower quadrant. There is mild distention of small-bowel loops containing gas and fluid. Distalileal diverticulosis. Normal appendix. No ascites, free air, or fluid collection. Postsurgical changes are noted with surgical clips scattered throughout the peritoneal cavity. Small focus of fat stranding anterior to the hepatic flexure may reflect small region of fat necrosis. MUSCULOSKELETAL: Noacute osseous abnormality. There is dextrocurvature of the lumbar spine centered at L2. Advanced degenerative change changes of the lumbar spine are noted. 1. Gallbladder wall thickening with pericholecystic fluid. Possible biliary sludge. Findings are concerning for cholecystitis. Consider right upper quadrant ultrasound. 2. Postsurgical changes of left lower quadrant end colostomy. Hazy fat stranding surrounding the descending and sigmoid colon may represent postsurgical changes, colitis, or mild diverticulitis. Correlate clinically. 3. Similar appearance compared to prior of a 2 cm right middle lobe density with adjacent satellite nodules/tree-in-bud opacities. Findings may be infectious or malignant. PET-CT or three-month follow-up chest CT is recommended for further evaluation. 4. Ectatic main pulmonary artery measuring 3.6 cm in diameterwhich can be seen in pulmonary hypertension. Correlate clinically. 5. Status post renal transplant in the right iliac fossa. 6. Contrast within the subcutaneous soft tissues anterior to the left shoulder, likely secondary to contrast extravasation. Please correlate with neurovascular examination. 7. The right lateral abdominal wall is not completely included in the field of view. 8. Additional chronic findings as above. I personally reviewed the images/study and I agree with the findings as stated above by resident physician, Kurt Godfrey MD. This study was interpreted at [place], [place]. MACRO: Dr. Godfrye discussed the significance and urgencyof the patient's contrast extravasation by telephone with ASTER TREVIZO on 02/25/2023 at 3:14 am. (-RCF-) Findings: See findings. Critical Finding: See findings. Notification was initiated on 02/25/2023 at 3:36 am by Phillip Guerrero. (-YCF-) Instructions: Signed by: Phillip Guerrero 02/25/2023 3:37 AM Dictation workstation: [id number] CT chest w IV contrast Result Date: 02/25/2023 Interpreted By: Phillip Guerrero and Benza Andrew STUDY: CT CHEST W IV CONTRAST; CT ABDOMEN PELVIS W IV CONTRAST; 02/25/2023 1:59 am; 02/25/2023 1:58 am INDICATION: Signs/Symptoms:evaluate for pna. COMPARISON: CT abdomen/pelvis dated 01/09/2023 ACCESSION NUMBER(S): [id number]; [id number] ORDERING CLINICIAN: ASTER TREVIZO; EVAN PRESTON TECHNIQUE: Contiguous axial images of the chest, abdomen, and pelvis were obtained after the intravenous administration of 75 mL Omnipaque 350 contrast.Coronal and sagittal reformatted images were reconstructed from the axial data. FINDINGS: CT CHEST:MEDIASTINUM AND LYMPH NODES: No enlarged intrathoracic or axillary lymph nodes by imaging criteria.No pneumomediastinum. The esophagus appears within normal limits. VESSELS: Normal caliber aorta without dissection. Moderate aortic atherosclerosis. 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 The main pulmonary artery is ectatic measuring 3.6 cm in diameter. HEART: Mildly enlarged. Severe coronary artery calcifications and likely stents in place. Trace pericardial effusion. LUNG, AIRWAYS, PLEURA: There are trace bilateral pleural effusions with adjacent atelectasis. There is similar appearance compared to prior of a 2 cm right middle lobe density with se veral adjacent satellite nodules or tree-in-bud nodularity. CHEST WALL SOFT TISSUES: Contrast within the subcutaneous soft tissues anterior to the left shoulder, likely secondary to contrast extravasation. Please correlate with neurovascular examination OSSEOUS STRUCTURES: No acute osseous abnormality. Lower cervical anterior spinal fusion hardware. CT ABDOMEN/PELVIS: ABDOMINAL WALL: There is a left lower quadrant colostomy. There is a small fat containing umbilical hernia. The remainder of theabdominal wall is unremarkable. LIVER: No significant parenchymal abnormality. BILE DUCTS: Slight intrahepatic biliary ductal prominence. The extrahepatic bile ducts are nondilated. GALLBLADDER: There is wall thickening and pericholecystic fluid/fat stranding. No calcified gallstones are visualized. Layering intermediate density material within the gallbladder lumen may reflect sludge. PANCREAS: No significant abnormality. SPLEEN: No significant abnormality. Accessory splenules are noted. ADRENALS: No significant abnormality. KIDNEYS, URETERS, BLADDER: The left kidney is markedly atrophic andcontains numerous nonobstructing renal calculi. Cervical pole renal cyst and several indeterminate koi left renal cortical hypodensities which are too small to characterize. A transplant kidney isnoted in the right iliac fossa. The transplant kidney demonstrates several hypodensities in its pare nchyma which are too small to characterize but favored to represent simple cysts. 2-3 mm interpolarrenal calculus within the transplant kidney. The right koi kidney is surgically absent. The urinary bladder is decompressed with Bowers catheter in place. There is mild fat stranding surrounding the urinary bladder. REPRODUCTIVE ORGANS: No significant abnormality. VESSELS: No significant abnormality. RETROPERITONEUM/LYMPH NODES: No enlarged lymph nodes. No acute retroperitoneal abnormality. Crescentic soft tissue density region medial to the left kidney may reflect region of fat necrosis or atypical appearing lymph node, similar to the prior exam. BOWEL/MESENTERY/PERITONEUM: Small hiatal hernia. Small duodenal diverticulum. Small bowel is nondilated. The right lateral abdominal wall, ascending colon, and right lateral small bowel loops are not completely included in the field of view. There is colonic diverticulosis. There is a left lower quadrant colostomy without evidence of parastomal hernia. Slight nonspecific fat stranding about the sigmoid stump and descending colon within theleft lower quadrant. There is mild distention of small-bowel loops containing gas and fluid. Distalileal diverticulosis. Normal appendix. No ascites, free air, or fluid collection. Postsurgical changes are noted with surgical clips scattered throughout the peritoneal cavity. Small focus of fat stranding anterior to the hepatic flexure may reflect small region of fat necrosis. MUSCULOSKELETAL: Noacute osseous abnormality. There is dextrocurvature of the lumbar spine centered at L2. Advanced degenerative change changes of the lumbar spine are noted. 1. Gallbladder wall thickening with pericholecystic fluid. Possible biliary sludge. Findings are concerning for cholecystitis. Consider right upper quadrant ultrasound. 2. Postsurgical changes of left lower quadrant end colostomy. Hazy fat stranding surrounding the descending and sigmoid colon may represent postsurgical changes, colitis, or mild diverticulitis. Correlate clinically. 3. Similar appearance compared to prior of a 2 cm right middle lobe density with adjacent satellite nodules/tree-in-bud opacities. Findings may be infectious or malignant. PET-CT or three-month follow-up chest CT is recommended for further evaluation. 4. Ectatic main pulmonary artery measuring 3.6 cm in diameterwhich can be seen in pulmonary hypertension. Correlate clinically. 5. Status post renal transplant in the right iliac fossa. 6. Contrast within the subcutaneous soft tissues anterior to the left shoulder, likely secondary to contrast extravasation. Please correlate with neurovascular examination. 7. The right lateral abdominal wall is not completely included in the field of view. 8. Additional chronic findings as above. I personally reviewed the images/study and I agree with the findings as stated above by resident physician, Kurt Godfrey MD. This study was interpreted at [facility], [place], [place]. MACRO: Dr. Godfrey discussed the significance and urgencyof the patient's contrast extravasation by telephone with ASTER TREVIZO on 02/25/2023 at 3:14 am. (-RCF-) Findings: See findings. Critical Finding: See findings. Notification was initiated on 02/25/2023 at 3:36 am by Phillip Guerrero. (-YCF-) Instructions: Signed by: Phillip Guerrero 02/25/2023 3:37 AM Dictation workstation: [id number] XR chest 1 view Result Date: 02/24/2023 Interpreted By: Phillip Guerrero and Benza Andrew STUDY: XR CHEST 1 VIEW; 02/24/2023 10:15 pm INDICATION: Signs/Symptoms:new O2 requirement. COMPARISON: Chest radiograph dated 01/14/2023 ACCESSION NUMBER(S): [id number] ORDERING CLINICIAN: HERI MILLARD FINDINGS: AP radiograph of the chest was provided. CARDIOMEDIASTINAL SILHOUETTE: Cardiomediastinal silhouette is mildly enlarged, stable in size and configuration. LUNGS: Mild diffuse interstitial prominence. Mild fwfq-vjffqxl-ruky-right linear basilar airspace opacities. Prominent central pulmonary vasculature.. There is trace blunting of the left costophrenic angle. No pneumothorax. ABDOMEN: Right upper quadrant surgical clips. BONES: No acute osseous changes. 1. Linear dlxc-uqdbgza-glgn-right basilar airspace opacities which appear similar to the prior exam, likely subsegmental atelectasis. 2. Blunting of the left costophrenic sulcus may reflect a trace pleural effusion. 3. Prominent central pulmonary vasculature and mild interstitial prominence, likelymild interstitial edema. 4. Trace left pleural effusion. MACRO: None. Signed by: Phillip Guerrero 02/24/2023 11:35 PM Dictation workstation: [id number] Assessment/Plan Jagruti Esparza is a 67 year old male with PMHx ESRD s/p (LUKT 2012 on immunosuppression), pAF (not onAC, on flecainide/diltiazem), mild aortic stenosis and recent complicated diverticulitis associatedwith pericolonic abscess (s/p IR abscess drainage and laparoscopic sigmoid resection w/ end colostomy and umbilical hernia repair 01/15/23) that presented to [facility] on 02/24 for 2-3 days of ongoing RUQ/epigastric pain. Patient now s/p perc kerline tube 02/25 and appears to have largely recovered fromintraabdominal sepsis. Due to concern for NSTEMI, cardiology planning for coronary angiography in coming week before patient discharged. Recommendations: -Patient to be assigned to medicine service as primary team when leaves the [facility] -Discussed briefly with cardiology that coronary angiograpgy tentatively planned for 03/02 (not 03/01), no need to make NPO 02/28. Jagruti Vicente MD Associated attestation - Pedro Romero MD - 02/28/2023 3:18 PM EST I saw and evaluated the patient. I personally obtained the florez and critical portions of the historyand physical exam or was physically present for florez and critical portions performed by the resident/fellow. I reviewed the resident/fellow's documentation and discussed the patient with the resident/curt fletcher. I agree with the resident/fellow's medical decision making as documented in the note. Appropriate for transfer to general medicine. Discussed with cardiology who will plan for LHC this week. See primary team accept note by Dr. Rivas for full updated plan * Gisela Carpio MD PhD - 02/26/2023 6:18 PM ESTAssociated Order(s): Inpatient consult to Urology Inpatient consult to Urology Consult performed by: Gisela Carpio MD PhD Consult ordered by: Vivian Espino MD Reason For Consult Bowers placement History Of Present Illness Jagruti Esparza is a 67 y.o. male with ESRD s/p kidney transplant 2012, A. Flutter, HTN, diverticulitis s/p laparoscopic sigmoid resection with end colostomy 01/2023, who is admitted to the [facility] withcholecystitis s/p percutaneous cholecystostomy tube. On heparin gtt. Urology consulted for Bowers placement. Bladder scanned for >1L. Multiple attempts with minimal urine output. Past Medical History He has a past medical history of PONV (postoperative nausea and vomiting). Surgical History He has a past surgical history that includes Other surgical history (12/25/2020); Other surgical history (12/25/2020); Other surgical history (12/25/2020); Other surgical history (12/25/2020); Other surgical history (12/25/2020); Other surgical history (07/11/2021); and CT guided imaging for abscess drain (01/11/2023). Social History He reports that he has never smoked. He has never used smokeless tobacco. He reports that he does not currently use alcohol. He reports that he does not use drugs. Family History No family history on file. Allergies Cephalexin, Tobramycin, Meperidine, Erythromycin, and Penicillins Review of Systems Constitutional: Negative. HENT: Negative. Eyes: Negative. Respiratory: Negative. Cardiovascular: Negative. Gastrointestinal: Negative. Endocrine: Negative. Genitourinary: Negative for difficulty urinating, dysuria, flank pain, hematuria and urgency. Musculoskeletal: Negative. Skin: Negative. Allergic/Immunologic: Negative. Neurological: Negative. Hematological: Negative. Psychiatric/Behavioral: Negative. Physical Exam GEN: Alert and conversant; no acute distress HEENT: NCAT; moist mucus membranes EYES: Sclera anicteric, EOMI PULM: Symmetric chest rise, no increased work of breathing on room air, no respiratory distress CV: Regular rate ABD: Soft, non-tender, non-distended. Colostomy LLQ. : Uncircumcised, buried penis. Large hydrocele. MSK: Moving all extremities spontaneously and to command EXTR: No joint swelling, no significant peripheral edema SKIN: Warm, dry, well-perfused NEURO: A&O x 3, no focal neurologic deficits PSYCH: Appropriate mood and affect Last Recorded Vitals Blood pressure (!) 109/39, pulse 73, temperature 36.8 C (98.2 F), temperature source Temporal, resp. rate (!) 9, height 1.803 m (5' 10.98 ), weight 86.1 kg (189 lb 13.1 oz), SpO2 92 %. Relevant Results Results for orders placed or performed during the hospital encounter of 02/24/23 (from the past 24 hour(s)) POCT GLUCOSE Result Value Ref Range POCT Glucose 102 (H) 74 - 99 mg/dL POCT GLUCOSE Result Value Ref Range POCT Glucose 101 (H) 74 - 99 mg/dL POCT GLUCOSE Result Value Ref Range POCT Glucose 90 74 - 99 mg/dL Blood Gas Venous Full Panel Result Value Ref Range POCT pH, Venous 7.37 7.33 - 7.43 pH POCT pCO2, Venous 38 (L) 41 - 51 mm Hg POCT pO2, Venous 96 (H) 35 - 45 mm Hg POCT SO2, Venous 98 (H) 45 - 75 % POCT Oxy Hemoglobin, Venous 95.5 (H) 45.0 - 75.0 % POCT Hematocrit Calculated, Venous 28.0 (L) 41.0 - 52.0 % POCT Sodium, Venous 128 (L) 136 - 145 mmol/L POCT Potassium, Venous 4.6 3.5 - 5.3 mmol/L POCT Chloride, Venous 99 98 - 107 mmol/L POCT Ionized Calicum, Venous 1.47 (H) 1.10 - 1.33 mmol/L POCT Glucose, Venous 92 74 - 99 mg/dL POCT Lactate, Venous 1.1 0.4 - 2.0 mmol/L POCT Base Excess, Venous -3.0 (L) -2.0 - 3.0 mmol/L POCT HCO3 Calculated, Venous 22.0 22.0 - 26.0 mmol/L POCT Hemoglobin, Venous 9.2 (L) 13.5 - 17.5 g/dL POCT Anion Gap, Venous 12.0 10.0 - 25.0 mmol/L Patient Temperature 37.0 degrees Celsius FiO2 21 % Vancomycin Result Value Ref Range Vancomycin 9.8 5.0 - 20.0 ug/mL CBC Result Value Ref Range WBC 16.2 (H) 4.4 - 11.3 x10*3/uL nRBC 0.0 0.0 - 0.0 /100 WBCs RBC 3.57 (L) 4.50 - 5.90 x10*6/uL Hemoglobin 8.6 (L) 13.5 - 17.5 g/dL Hematocrit 26.8 (L) 41.0 - 52.0 % MCV 75 (L) 80 - 100 fL MCH 24.1 (L) 26.0 - 34.0 pg MCHC 32.1 32.0 - 36.0 g/dL RDW 18.0 (H) 11.5 - 14.5 % Platelets 164 150 - 450 x10*3/uL Magnesium Result Value Ref Range Magnesium 2.09 1.60 - 2.40 mg/dL Calcium, ionized Result Value Ref Range POCT Calcium, Ionized 1.46 (H) 1.1 - 1.33 mmol/L Renal function panel Result Value Ref Range Glucose 90 74 - 99 mg/dL Sodium 131 (L) 136 - 145 mmol/L Potassium 4.6 3.5 - 5.3 mmol/L Chloride 103 98 - 107 mmol/L Bicarbonate 23 21 - 32 mmol/L Anion Gap 10 10 - 20 mmol/L Urea Nitrogen 24 (H) 6 - 23 mg/dL Creatinine 0.81 0.50 - 1.30 mg/dL eGFR >90 >60 mL/min/1.73m*2 Calcium 9.6 8.6 - 10.6 mg/dL Phosphorus 3.0 2.5 - 4.9 mg/dL Albumin 2.4 (L) 3.4 - 5.0 g/dL POCT GLUCOSE Result Value Ref Range POCT Glucose 94 74 - 99 mg/dL Tacrolimus level Result Value Ref Range Tacrolimus 5.5 <=15.0 ng/mL POCT GLUCOSE Result Value Ref Range POCT Glucose 96 74 - 99 mg/dL Type And Screen Result Value Ref Range ABO TYPE A Rh TYPE POS ANTIBODY SCREEN NEG POCT GLUCOSE Result Value Ref Range POCT Glucose 97 74 - 99 mg/dL CBC Result Value Ref Range WBC 13.0 (H) 4.4 - 11.3 x10*3/uL nRBC 0.0 0.0 - 0.0 /100 WBCs RBC 3.49 (L) 4.50 - 5.90 x10*6/uL Hemoglobin 8.3 (L) 13.5 - 17.5 g/dL Hematocrit 25.9 (L) 41.0 - 52.0 % MCV 74 (L) 80 - 100 fL MCH 23.8 (L) 26.0 - 34.0 pg MCHC 32.0 32.0 - 36.0 g/dL RDW 18.1 (H) 11.5 - 14.5 % Platelets 137 (L) 150 - 450 x10*3/uL Fibrinogen Result Value Ref Range Fibrinogen 470 (H) 200 - 400 mg/dL Protime-INR Result Value Ref Range Protime 14.9 (H) 9.8 - 12.8 seconds INR 1.3 (H) 0.9 - 1.1 aPTT - baseline Result Value Ref Range aPTT 30 27 - 38 seconds TEG Clot Global Profile Result Value Ref Range R (Reaction Time) K 7.0 4.6 - 9.1 min K (Clot Kinetics) 1.0 0.8 - 2.1 min ANGLE 76.0 63.0 - 78.0 deg MA (Max Amplitude) K 65.0 52.0 - 69.0 mm R (Reaction Time) KH 6.2 4.3 - 8.3 min MA (Max Amplitude) RT 65.0 52.0 - 70.0 mm MA ( Graciela Amplitude) FF 33.0 (H) 15.0 - 32.0 mm FLEV 598 (H) 278 - 581 mg/dL Test Comment [id number] Heparin Assay, UFH Result Value Ref Range Heparin Unfractionated <0.1 See Comment Below for Therapeutic Ranges IU/mL POCT GLUCOSE Result Value Ref Range POCT Glucose 122 (H) 74 - 99 mg/dL Imaging CTAP 02/25/23 IMPRESSION: 1. Gallbladder wall thickening with pericholecystic fluid. Possible biliary sludge. Findings are concerning for cholecystitis. Consider right upper quadrant ultrasound. 2. Postsurgical changes of left lower quadrant end colostomy. Hazy fat stranding surrounding the descending and sigmoid colon may represent postsurgical changes, colitis, or mild diverticulitis. Correlate clinically. 3. Similar appearance compared to prior of a 2 cm right middle lobe density with adjacent satellitenodules/tree-in-bud opacities. Findings may be infectious or malignant. PET-CT or three-month follow-up chest CT is recommended for further evaluation. 4. Ectatic main pulmonary artery measuring 3.6 cm in diameter which can be seen in pulmonary hypertension. Correlate clinically. 5. Status post renal transplant in the right iliac fossa. 6. Contrast within the subcutaneous soft tissues anterior to the left shoulder, likely secondary tocontrast extravasation. Please correlate with neurovascular examination. 7. The right lateral abdominal wall is not completely included in the field of view. Assessment/Plan Jagruti Esparza is a 67 y.o. male with ESRD s/p kidney transplant 2012, A. Adelatter, HTN, diverticulitis s/p laparoscopic sigmoid resection with end colostomy 01/2023, who is admitted to the [facility] withcholecystitis s/p percutaneous cholecystostomy tube. On heparin gtt. Urology consulted for Bowers placement. Bladder scanned for >1L. Multiple attempts with minimal urine output. The genitalia was prepped and draped. Lubricating jelly was instilled per urethra. An 18F coude catheter was inserted without difficulty, with immediate return of clear nena urine. 10 cc of sterile water was used to inflate the balloon. The catheter was connected to a gravity drainage bag and a StatLock applied. The patient tolerated the procedure well. PLAN - Future Bowers catheters do not require insertion by Urology - Please always use a coude catheter and sufficient lubricant - Please ensure that the foreskin is properly reduced after manipulation - Bowers duration per primary team - PRN outpatient Urology follow up ([phone] to schedule) Seen with chief resident Dr. Cantor. Gisela Carpio MD PhD Urology PGY4 [id number] (Adult) [id number] (Peds) Associated attestation - Paramjit Castillo MD - 02/28/2023 9:50 AM EST I reviewed the resident/fellow's documentation and discussed the patient with the resident/fellow. I agree with the resident/fellow's medical decision making as documented in the note. * Cherise Quach RN - 02/25/2023 4:24 PM EST Vascular Access Team Consult Visit Date: 02/25/2023 Patient Name: Jagruti Esparza Reason for Consult: PICC Assessment: Blood Culture Order: [id number] Collected 02/24/2023 23:18 Status: Preliminary result Visible to patient: No (not released) Specimen Information: Peripheral Venipuncture; Blood culture 0 Result Notes Blood Culture Loaded on Instrument - Culture in progress Resulting Agency: [facility] Specimen Collected: 02/24/23 23:18 Last Resulted: 02/25/23 01:01 Plan: Will reassess for PICC placement when blood cultures are 48hrs NGTD. Cherise Quach RN 02/25/2023 4:24 PM * Tim Arrington MD - 02/25/2023 2:05 PM ESTAssociated Order(s): IP CONSULT TO NEPHROLOGY TRANSPLANT Reason For Consult H/o kidney transplant, immunosuppression management History Of Present Illness Jagruti Esparza is a 67 y.o. male with a PMH of ESRD s/p LUKT 2012, on immunosuppression, pAF/Afib not on AC (on Flecainide/Diltiazem), mild aortic stenosis, recent admission for diverticulitis s/p sigmpoid colectomy and colostomy who is transferred from outside hospital with acute acalculous cholecy stitis s/p IR placement of percutaneous cholecystostomy tube on 02/25 am. Also noted to have elevated troponin, concern for NSTEMI. Nephrology consulted for management of immunosuppression. Baseline serum Cr 0.6-0.8 mg/dl. Cr this admission ~ 1 mg/dl. Acceptable lytes, CO2, other metabolic parameters. Current immunosuppression: Imuran 50 mg/d, tac 0.5 mg q12, pred 5 mg/d. During recent admission for diverticulitis MMF was initially held and then later switched to [id number]. Seen by cardiology for NSTEMI. Being managed conservatively with heparin drip. Pt seen at bedside this am. C/o RUQ pain. S/p drain by IR this am. Bowers in place. Denies any chest pain, dyspnea, PND or other complaints. No LE swelling. Stable hemodynamics. S/p empiric braod spectrum abx. Currently on aztreonam. Recent UA concerning for infection. Ucx pending. Pt denies any LUTS prior to admission. Tolerating current IS meds well at home. ROS negative otherwise Past Medical History Reviewed. As listed above Surgical History As noted above Social History He reports that he has never smoked. He has never used smokeless tobacco. He reports that he does not currently use alcohol. He reports that he does not use drugs. Family History No family history on file. Allergies Cephalexin, Tobramycin, Meperidine, Erythromycin, and Penicillins Physical Exam Last Recorded Vitals Blood pressure (!) 101/25, pulse 71, temperature 36.4 C (97.5 F), temperature source Temporal, resp. rate 15, height 1.803 m (5' 10.98 ), weight 86.1 kg (189 lb 13.1 oz), SpO2 100 %. A&ox3, mild distress (sec to post-procedure pain) Lungs clear anteriorly Rrr, no m/r/g Abd soft, nt, nd No allograft tenderness No edema b/l Scheduled medications acetaminophen, 650 mg, oral, q6h azaTHIOprine, 50 mg, oral, Daily aztreonam, 2 g, intravenous, q8h dilTIAZem XR, 180 mg, oral, Daily flecainide, 50 mg, oral, q8h TREMAINE heparin (porcine), 5,000 Units, subcutaneous, q8h TREMAINE insulin lispro, 0-5 Units, subcutaneous, q4h lidocaine, 5 mL, infiltration, Once metroNIDAZOLE, 500 mg, intravenous, q8h pantoprazole, 40 mg, intravenous, Daily perflutren lipid microspheres, 0.5-10 mL of dilution, intravenous, Once in imaging perflutren protein A microsphere, 0.5 mL, intravenous, Once in imaging [START ON 02/26/2023] polyethylene glycol, 17 g, oral, Every other day predniSONE, 5 mg, oral, Daily rOPINIRole, 1 mg, oral, Nightly sodium chloride 0.9%, 10 mL, intra-catheter, q12h sulfamethoxazole-trimethoprim, 1 tablet, oral, q AM sulfur hexafluoride microsphr, 2 mL, intravenous, Once in imaging tacrolimus, 0.5 mg, oral, BID Continuous medications lactated Ringer's, 100 mL/hr, Last Rate: 100 mL/hr (02/25/23 0358) PRN medications PRN medications: acetaminophen, alteplase, dextrose 10 % in water (D10W), dextrose 10 % in water (D10W), dextrose, dextrose, glucagon, glucagon, oxyCODONE, oxyCODONE, oxygen, sodium chloride 0.9% Results for orders placed or performed during the hospital encounter of 02/24/23 (from the past 24 hour(s)) CBC and Auto Differential Result Value Ref Range WBC 15.5 (H) 4.4 - 11.3 x10*3/uL nRBC 0.0 0.0 - 0.0 /100 WBCs RBC 4.62 4.50 - 5.90 x10*6/uL Hemoglobin 10.9 (L) 13.5 - 17.5 g/dL Hematocrit 35.9 (L) 41.0 - 52.0 % MCV 78 (L) 80 - 100 fL MCH 23.6 (L) 26.0 - 34.0 pg MCHC 30.4 (L) 32.0 - 36.0 g/dL RDW 17.9 (H) 11.5 - 14.5 % Platelets 148 (L) 150 - 450 x10*3/uL Neutrophils % 88.1 40.0 - 80.0 % Immature Granulocytes %, Automated 1.9 (H) 0.0 - 0.9 % Lymphocytes % 6.2 13.0 - 44.0 % Monocytes % 3.3 2.0 - 10.0 % Eosinophils % 0.1 0.0 - 6.0 % Basophils % 0.4 0.0 - 2.0 % Neutrophils Absolute 13.65 (H) 1.20 - 7.70 x10*3/uL Immature Granulocytes Absolute, Automated 0.30 0.00 - 0.70 x10*3/uL Lymphocytes Absolute 0.96 (L) 1.20 - 4.80 x10*3/uL Monocytes Absolute 0.51 0.10 - 1.00 x10*3/uL Eosinophils Absolute 0.02 0.00 - 0.70 x10*3/uL Basophils Absolute 0.06 0.00 - 0.10 x10*3/uL Hepatic function panel Result Value Ref Range Albumin 3.1 (L) 3.4 - 5.0 g/dL Bilirubin, Total 0.7 0.0 - 1.2 mg/dL Bilirubin, Direct 0.1 0.0 - 0.3 mg/dL Alkaline Phosphatase 81 33 - 136 U/L ALT 8 (L) 10 - 52 U/L AST 23 9 - 39 U/L Total Protein 6.0 (L) 6.4 - 8.2 g/dL Basic metabolic panel Result Value Ref Range Glucose 90 74 - 99 mg/dL Sodium 131 (L) 136 - 145 mmol/L Potassium 4.4 3.5 - 5.3 mmol/L Chloride 100 98 - 107 mmol/L Bicarbonate 21 21 - 32 mmol/L Anion Gap 14 10 - 20 mmol/L Urea Nitrogen 16 6 - 23 mg/dL Creatinine 0.90 0.50 - 1.30 mg/dL eGFR >90 >60 mL/min/1.73m*2 Calcium 9.8 8.6 - 10.6 mg/dL Phosphorus Result Value Ref Range Phosphorus 1.3 (L) 2.5 - 4.9 mg/dL Magnesium Result Value Ref Range Magnesium 1.35 (L) 1.60 - 2.40 mg/dL Lactate Result Value Ref Range Lactate 5.1 (HH) 0.4 - 2.0 mmol/L Troponin I, High Sensitivity Result Value Ref Range Troponin I, High Sensitivity 6,669 (HH) 0 - 53 ng/L B-Type Natriuretic Peptide Result Value Ref Range BNP 1,234 (H) 0 - 99 pg/mL Lipase Result Value Ref Range Lipase 18 9 - 82 U/L Sars-CoV-2 and Influenza A/B PCR Result Value Ref Range Flu A Result Not Detected Not Detected Flu B Result Not Detected Not Detected Coronavirus 2018, PCR Not Detected Not Detected ECG 12 lead Result Value Ref Range Ventricular Rate 105 BPM Atrial Rate 105 BPM [place] Interval 190 ms QRS Duration 100 ms QT Interval 320 ms QTC Calculation(Bazett) 422 ms P [place] 23 degrees R [place] -8 degrees T [place] 71 degrees QRS Count 17 beats Q Onset 215 ms P Onset 120 ms P Offset 181 ms T Offset 375 ms QTC [place] 385 ms ECG 12 lead Result Value Ref Range Ventricular Rate 102 BPM Atrial Rate 102 BPM [place] Interval 224 ms QRS Duration 98 ms QT Interval 338 ms QTC Calculation(Bazett) 440 ms P [place] -20 degrees R [place] -19 degrees T [place] 61 degrees QRS Count 17 beats Q Onset 216 ms P Onset 104 ms P Offset 182 ms T Offset 385 ms QTC [place] 403 ms Blood Culture Specimen: Peripheral Venipuncture; Blood culture Result Value Ref Range Blood Culture Loaded on Instrument - Culture in progress Blood Culture Specimen: Peripheral Venipuncture; Blood culture Result Value Ref Range Blood Culture Loaded on Instrument - Culture in progress Troponin I, High Sensitivity Result Value Ref Range Troponin I, High Sensitivity 6,518 (HH) 0 - 53 ng/L Lactate Result Value Ref Range Lactate 4.8 (HH) 0.4 - 2.0 mmol/L Urinalysis with Reflex Microscopic and Culture Result Value Ref Range Color, Urine Nena (N) Straw, Yellow Appearance, Urine Hazy (N) Clear Specific [place], Urine 1.020 1.005 - 1.035 pH, Urine 5.0 5.0, 5.5, 6.0, 6.5, 7.0, 7.5, 8.0 Protein, Urine 30 (1+) (N) NEGATIVE mg/dL Glucose, Urine NEGATIVE NEGATIVE mg/dL Blood, Urine NEGATIVE NEGATIVE Ketones, Urine NEGATIVE NEGATIVE mg/dL Bilirubin, Urine NEGATIVE NEGATIVE Urobilinogen, Urine 2.0 (N) <2.0 mg/dL Nitrite, Urine NEGATIVE NEGATIVE Leukocyte Esterase, Urine SMALL (1+) (A) NEGATIVE Extra Urine Perez Tube Result Value Ref Range Extra Tube Hold for add-ons. Microscopic Only, Urine Result Value Ref Range WBC, Urine 21-50 (A) 1-5, NONE /HPF RBC, Urine 3-5 NONE, 1-2, 3-5 /HPF Budding Yeast, Urine PRESENT (A) NONE /HPF Mucus, Urine 2+ Reference range not established. /LPF Protime-INR Result Value Ref Range Protime 15.2 (H) 9.8 - 12.8 seconds INR 1.3 (H) 0.9 - 1.1 BLOOD GAS VENOUS FULL PANEL Result Value Ref Range POCT pH, Venous 7.32 (L) 7.33 - 7.43 pH POCT pCO2, Venous 38 (L) 41 - 51 mm Hg POCT pO2, Venous 40 35 - 45 mm Hg POCT SO2, Venous 60 45 - 75 % POCT Oxy Hemoglobin, Venous 58.1 45.0 - 75.0 % POCT Hematocrit Calculated, Venous 29.0 (L) 41.0 - 52.0 % POCT Sodium, Venous 124 (L) 136 - 145 mmol/L POCT Potassium, Venous 4.5 3.5 - 5.3 mmol/L POCT Chloride, Venous 99 98 - 107 mmol/L POCT Ionized Calicum, Venous 1.42 (H) 1.10 - 1.33 mmol/L POCT Glucose, Venous 92 74 - 99 mg/dL POCT Lactate, Venous 3.2 (H) 0.4 - 2.0 mmol/L POCT Base Excess, Venous -6.0 (L) -2.0 - 3.0 mmol/L POCT HCO3 Calculated, Venous 19.6 (L) 22.0 - 26.0 mmol/L POCT Hemoglobin, Venous 9.7 (L) 13.5 - 17.5 g/dL POCT Anion Gap, Venous 10.0 10.0 - 25.0 mmol/L Patient Temperature 37.0 degrees Celsius FiO2 0 % Basic Metabolic Panel Result Value Ref Range Glucose 85 74 - 99 mg/dL Sodium 130 (L) 136 - 145 mmol/L Potassium 4.7 3.5 - 5.3 mmol/L Chloride 102 98 - 107 mmol/L Bicarbonate 18 (L) 21 - 32 mmol/L Anion Gap 15 10 - 20 mmol/L Urea Nitrogen 18 6 - 23 mg/dL Creatinine 0.81 0.50 - 1.30 mg/dL eGFR >90 >60 mL/min/1.73m*2 Calcium 8.8 8.6 - 10.6 mg/dL Sterile Fluid Culture/Smear Specimen: Aspirate; Fluid Result Value Ref Range Gram Stain (3+) Moderate Polymorphonuclear leukocytes (A) Gram Stain (4+) Abundant Gram negative bacilli (A) POCT GLUCOSE Result Value Ref Range POCT Glucose 94 74 - 99 mg/dL Tacrolimus level Result Value Ref Range Tacrolimus 4.5 <=15.0 ng/mL Troponin I, High Sensitivity Result Value Ref Range Troponin I, High Sensitivity 5,973 (HH) 0 - 53 ng/L Magnesium Result Value Ref Range Magnesium 2.33 1.60 - 2.40 mg/dL Fibrinogen Result Value Ref Range Fibrinogen 379 200 - 400 mg/dL Calcium, ionized Result Value Ref Range POCT Calcium, Ionized 1.41 (H) 1.1 - 1.33 mmol/L Renal Function Panel Result Value Ref Range Glucose 55 (LL) 74 - 99 mg/dL Sodium 129 (L) 136 - 145 mmol/L Potassium 5.0 3.5 - 5.3 mmol/L Chloride 97 (L) 98 - 107 mmol/L Bicarbonate 21 21 - 32 mmol/L Anion Gap 16 10 - 20 mmol/L Urea Nitrogen 20 6 - 23 mg/dL Creatinine 1.04 0.50 - 1.30 mg/dL eGFR 79 >60 mL/min/1.73m*2 Calcium 9.9 8.6 - 10.6 mg/dL Phosphorus 3.2 2.5 - 4.9 mg/dL Albumin 3.0 (L) 3.4 - 5.0 g/dL Hepatic Function Panel Result Value Ref Range Albumin 3.0 (L) 3.4 - 5.0 g/dL Bilirubin, Total 0.9 0.0 - 1.2 mg/dL Bilirubin, Direct 0.2 0.0 - 0.3 mg/dL Alkaline Phosphatase 89 33 - 136 U/L ALT 9 (L) 10 - 52 U/L AST 27 9 - 39 U/L Total Protein 5.9 (L) 6.4 - 8.2 g/dL POCT GLUCOSE Result Value Ref Range POCT Glucose 91 74 - 99 mg/dL Transthoracic Echo (TTE) Limited Result Value Ref Range AV pk dav 2.18 AV mn grad 8.0 LVOT diam 2.30 LV biplane EF 54 MV E/A ratio 1.25 LVIDd 6.60 RVSP 39.5 Aortic Valve Area by Continuity of VTI 3.15 Aortic Valve Area by Continuity of Peak Velocity 2.99 AV pk grad 19.0 LV A4C EF 53.0 POCT GLUCOSE Result Value Ref Range POCT Glucose 96 74 - 99 mg/dL Aspirate culture: Gm negative bacilli CT chest with contrast: IMPRESSION: 1. Gallbladder wall thickening with pericholecystic fluid. Possible biliary sludge. Findings are concerning for cholecystitis. Consider right upper quadrant ultrasound. 2. Postsurgical changes of left lower quadrant end colostomy. Hazy fat stranding surrounding the descending and sigmoid colon may represent postsurgical changes, colitis, or mild diverticulitis. Correlate clinically. 3. Similar appearance compared to prior of a 2 cm right middle lobe density with adjacent satellite nodules/tree-in-bud opacities. Findings may be infectious or malignant. PET-CT or three-month follow-up chest CT is recommended for further evaluation. 4. Ectatic main pulmonary artery measuring 3.6 cm in diameter which can be seen in pulmonary hypertension. Correlate clinically. 5. Status post renal transplant in the right iliac fossa. 6. Contrast within the subcutaneous soft tissues anterior to the left shoulder, likely secondary to contrast extravasation. Please correlate with neurovascular examination. 7. The right lateral abdominal wall is not completely included in the field of view. 8. Additional chronic findings as above. A&P: S/p LUKT: 2013 - baseline Cr <1 mg/dl. Stable on admission labs. Serum K, CO2 acceptable - chronic mild-mod hyponatremia. Would check urine electrolytes, urine and serum osmolality when ptis in steady state - HTN: Bps acceptable. Titrate meds as indicated - no hypervolemia on exam - Hb 10.9, acceptable. Ca acceptable. Hypophos noted, replete as indicated. Pls check PTH, vit D with next labs. Immunosuppression: cont tac 0.5 mg bid, pred 5 mg/d. - given leukocytosis, +ve fluid cx, would hold Imuran till completion of abx course. - pls check tac trough levels daily. Last Fk trough 4.5, at goal. - UTI, possible: follow up urine culture Will follow I spent 45 minutes in the professional and overall care of this patient. Tim Arrington MD * Gagandeep Mansfield MD - 02/25/2023 1:58 PM ESTAssociated Order(s): Inpatient consult to cardiology Inpatient consult to cardiology Consult performed by: Gagandeep Mansfield MD Consult ordered by: Vivian Espino MD History Of Present Illness: 67-year-old male with a PMH paroxysmal atrial flutter/fibrillation not on AC, mild aortic stenosis,renal transplant 2012, and and colostomy for diverticulitis 01/2013 who presented from outside hospital with concerns for cholecystitis found to have acute acalculous cholecystitis s/p IR placement of percutaneous cholecystostomy tube on 02/25. Troponins were checked on admission and found to be 6600->6500->5900 with EKG showing poor R wave progression. ASA loaded. Chest pain/pressure freee. Previous echo 08/04 with normal biventricular function and moderately dilated biatria. Repeat echo AM 02/25 in s/o concern for NSTEMI no WMA's, low normal EF 50-55%, normal RV function, and mild . CT chest with severe coronary calcifications. Patient does not smoke, does not have diabetes, no hypertension or hyperlipidemia. Patient Patient was seen at bedside and currently denies any chest pain or pressure. He states that he camein for right upper quadrant pain but never had any chest pain or shortness of breath. He is still recovering from a recent colostomy and has been having a hard time walking as of . But he was eating and drinking okay up until this admission. He follows with Dr. Kamara for his atrial fibrillation and states he is not on any blood thinners because of GI bleeding requiring multiple transfusions in July of this year. Home medications: Diltiazem extended release 180 mg daily Flecainide 50 mg every 8 hours Cardiac studies: Nuclear stress test January 2020 with no evidence of ischemia Last Recorded Vitals: Vitals: 02/25/23 1100 02/25/23 1200 02/25/23 1249 02/25/23 1300 BP: (!) 123/43 (!) 105/30 BP Location: Patient Position: Pulse: 74 76 75 74 Resp: 15 22 20 15 Temp: 36.4 C (97.5 F) TempSrc: Temporal SpO2: 97% 98% 100% 97% Weight: Height: Last Labs: CBC - 02/24/2023: 9:57 PM 15.5 10.9 148 35.9 CMP - 02/25/2023: 6:48 AM 9.9 5.9 27 --- 0.9 3.2 3.0; 3.0 9 89 PTT - 01/14/2023: 4:59 PM 1.3 15.2 27 Troponin I, High Sensitivity Date/Time Value Ref Range Status 02/25/2023 06:48 AM 5,973 (HH) 0 - 53 ng/L Final Comment: Previous result verified on 02/24/20232 on specimen/case [id number] called with component TRPHS for procedure Troponin I, High Sensitivity with value 6,669 ng/L. 02/24/2023 11:18 PM 6,518 (HH) 0 - 53 ng/L Final Comment: Previous result verified on 02/24/20232 on specimen/case [id number] called with component TRPHS for procedure Troponin I, High Sensitivity with value 6,669 ng/L. 02/24/2023 09:57 PM 6,669 (HH) 0 - 53 ng/L Final BNP Date/Time Value Ref Range Status 02/24/2023 09:57 PM 1,234 (H) 0 - 99 pg/mL Final Last I/O: I/O last 3 completed shifts: In: 108.3 (1.3 mL/kg) [I.V.:108.3 (1.3 mL/kg)] Out: 100 (1.2 mL/kg) [Urine:100 (0 mL/kg/hr)] Weight: 86.1 kg Past Cardiology Tests (Last 3 Years): EKG: Echo: Transthoracic Echo (TTE) Limited 02/25/2023 Ejection Fractions: EF Date/Time Value Ref Range Status 02/25/2023 11:11 AM 54 Past Medical History: He has a past medical history of PONV (postoperative nausea and vomiting). Past Surgical History: He has a past surgical history that includes Other surgical history (12/25/2020); Other surgical history (12/25/2020); Other surgical history (12/25/2020); Other surgical history (12/25/2020); Other surgical history (12/25/2020); Other surgical history (07/11/2021); and CT guided imaging for abscess drain (01/11/2023). Social History: He reports that he has never smoked. He has never used smokeless tobacco. He reports that he does not currently use alcohol. He reports that he does not use drugs. Family History: No family history on file. Allergies: Cephalexin, Tobramycin, Meperidine, Erythromycin, and Penicillins Inpatient Medications: Scheduled medications Medication Dose Route Frequency acetaminophen 650 mg oral q6h azaTHIOprine 50 mg oral Daily aztreonam 2 g intravenous q8h dilTIAZem XR 180 mg oral Daily flecainide 50 mg oral q8h TREMAINE heparin (porcine) 5,000 Units subcutaneous q8h TREMAINE insulin lispro 0-5 Units subcutaneous q4h metroNIDAZOLE 500 mg intravenous q8h pantoprazole 40 mg intravenous Daily perflutren lipid microspheres 0.5-10 mL of dilution intravenous Once in imaging perflutren protein A microsphere 0.5 mL intravenous Once in imaging [START ON 02/26/2023] polyethylene glycol 17 g oral Every other day predniSONE 5 mg oral Daily rOPINIRole 1 mg oral Nightly sulfamethoxazole-trimethoprim 1 tablet oral q AM sulfur hexafluoride microsphr 2 mL intravenous Once in imaging tacrolimus 0.5 mg oral BID PRN medications Medication acetaminophen dextrose 10 % in water (D10W) dextrose 10 % in water (D10W) dextrose dextrose glucagon glucagon oxyCODONE oxyCODONE oxygen Continuous Medications Medication Dose Last Rate lactated Ringer's 100 mL/hr 100 mL/hr (02/25/23 0358) Outpatient Medications: Current Outpatient Medications Medication Instructions azaTHIOprine (IMURAN) 50 mg, oral, Daily DILT-XR 180 mg, oral, Daily flecainide (TAMBOCOR) 50 mg, oral, Every 8 hours magnesium oxide (MAG-OX) 400 mg, oral, Daily oxyCODONE (ROXICODONE) 5 mg, oral, Every 6 hours PRN pantoprazole (PROTONIX) 20 mg, oral, 2 times daily polyethylene glycol (GLYCOLAX, MIRALAX) 17 g, oral, Daily predniSONE (DELTASONE) 5 mg, oral, Every morning Prograf 0.5 mg, oral, 2 times daily rOPINIRole (REQUIP) 1 mg, oral, Nightly sulfamethoxazole-trimethoprim (Bactrim) 400-80 mg tablet 1 tablet, oral, Every morning Physical Exam: General: well appearing, no acute distress Neck: no JVD Cardiac: regular rate and rhythm, no murmurs, rubs or gallops Pulmonary: Clear to auscultation bilaterally, normal respiratory effort Peripheral pulses: intact, 2+ Extremities: No peripheral edema Assessment/Plan 67-year-old male with a PMH paroxysmal atrial flutter/fibrillation not on AC, mild aortic stenosis,renal transplant 2012, and and colostomy for diverticulitis 01/2013 who presented from outside hospital with concerns for cholecystitis found to have acute acalculous cholecystitis s/p IR placement of percutaneous cholecystostomy tube on 02/25. Troponins were checked on admission and found to be 6600->6500->5900 with EKG showing poor R wave progression. ASA loaded. Chest pain/pressure freee. Previous echo 08/04 with normal biventricular function and moderately dilated biatria. Repeat echo AM 02/25 in s/o concern for NSTEMI no WMA's, low normal EF 50-55%, normal RV function, and mild . Possible inferior wall hypokinesis. CT chest with severe coronary calcifications. 1. Troponin elevation: Given degree of troponin elevation and EKG changes (reduced R wave progression), cannot rule out NSTEMI. He is not on therapeutic anticoagulation given concerns for bleeding risk due to recent perc kerline. Has been aspirin loaded. Risk factors for CAD include age and sex. 2. Paroxysmal atrial fibrillation: Not on anticoagulation due to massive GI bleeding requiring 12 units 6 months ago. In theory, risk of bleeding now decreased since he's post hemicolectomy: [id number] (1+ for age) 3. Low normal ejection fraction: possible inferior hypokinesis seen on echo Recommendations Given degree of troponin elevation, will plan for diagnostic coronary angiogram to define cardiac anatomy (including prior to potential cholecystectomy). NPO midnight. Continue home diltiazem 180 mg daily for rate control Continue aspirin 81 mg daily Start Atorvastatin 80mg daily Optimize for coronary angiogram (recheck lactate, optimize glucose levels) Thank you for this very interesting consult. Patient was seen and discussed with attending Dr. Chris Mansfield MD PGY-6 Cardiovascular Disease Fellow [facility] EP consult pager: [phone] (WED-Wed-6p; SAT-SUN 7a-2p) EP device nurse pager: [phone] (WED-Wed-6p; SAT-SUN 7a-2p) Gen Cards consult pager: [phone] (WED-Wed-6p; SAT-SUN 7a-2p) CICU fellow pager: [phone] (covers EP and General Cardiology Consults after hours) Advanced Heart Failure Consult Pager: [phone] anytime CICU Fellow Pager: [phone] anytime Endovascular /Limb Salvage Team Pager: [phone] for day coverage (8am-5pm) Interventional Intelligence Intern Pager: [phone] for night and weekend coverage Structural Heart Team Pager: [phone] anytime Night coverage: HHVI [id number] Gagandeep Mansfield MD Associated attestation - Yan Perez MD - 02/25/2023 5:44 PM EST I saw and evaluated the patient. I personally obtained the florez and critical portions of the historyand physical exam or was physically present for florez and critical portions performed by the resident/fellow. I reviewed the resident/fellow's documentation and discussed the patient with the resident/f chance. I agree with the resident/fellow's medical decision making as documented in the note. 67 M with prior kidney transplant, aflutter (on flecainide and diltiazem at home, no A/C due to prior GI bleed), recent sigmoid resection with end colostomy who presents with cholecystitis. He follows with Dr. Hernandez Hankins for EP. He reports being extremely sedentary at home. He sits in his chair almost all day. Has some shortness of breath but no significant chest pain or pressure. He does not have chest pain or pressure in the hospital as well. He has never had a cardiac catheterization or stents. HR 75, BP 100/30, 97% room air Comfortable, normal rate, regular rhythm, right arm fistula, no significant lower extremity edema. NA 129, K5.0, creatinine 1.04, lactate 4.8, white blood cell count 24, hemoglobin 10, platelets 189. Troponin initially 6600 and down trended to 5900. ECG: sinus tach, poor R wave progression, Qtc 440 (had R waves apical before in 01/2023) CT: severe coronary calcifications TTE 07/2022: EF 55-60%, mild LVH, mild-mod aortic stenosis, RV mod enlarged Nuc Stress 01/2020 normal TTE 02/25/2023: Echo 50-55%, mild aortic stenosis, questionable inferior mild hypokinesis 1. NSTEMI: There is likely at least some component of demand ischemia and demand troponin elevation. However he does have significant coronary calcification seen on chest CT as well as reduced R waveprogression on ECG from prior. His troponin of 6600, in light of normal renal function, is more than what would be expected with purely demand ischemia. Would favor defining the coronary anatomy withat least a diagnostic catheterization. Would appreciate if the IR and surgical teams could clarify whether DAPT would be allowed and whether there is any contraindication to anticoagulation if neededfrom their perspective. Would also appreciate if they could clarify what the ongoing plan is for his gallbladder as we think about whether he would have any stents placed and thus need to be on uninterrupted DAPT for several months potentially. Please keep n.p.o. at midnight and we will possibly doa diagnostic coronary angiogram if we are able to get answers to the above questions. 2. Paroxysmal A-fib: On diltiazem and flecainide at home. Can continue diltiazem, though may be able to decrease the dose if he is hypotensive. Can hold flecainide for now. He was not on anticoag at home given prior GI bleed, but now that he had a sigmoid resection and a colostomy we should revisitthat prior to discharge. 3. Hypotension: Suspect this is most likely distributive given his rising white count, cholecystitis and wide pulse pressure. Would recommend at least 1 L of fluid or more to increase his BP. Yan Perez MD * Manny Harrison, PharmD - 02/25/2023 3:53 AM ESTAssociated Order(s): PHARMACY TO DOSE VANCO Vancomycin Dosing by Pharmacy- Cessation of Therapy Consult to pharmacy for vancomycin dosing has been discontinued by the prescriber, pharmacy will sign off at this time. Please call pharmacy if there are further questions or re-enter a consult if vancomycin is resumed. Manny Harrison, PharmD * Marc Mancuso MD - 02/24/2023 10:58 PM ESTAssociated Order(s): IP CONSULT TO ACUTE CARE SURGERY [facility] ACUTE CARE SURGERY - CONSULT Patient Name: Jagruti Esparza Admit Date: 02/24/23 : 1955 AGE: 67 y.o. GENDER: male TODAY'S ASSESSMENT AND PLAN OF CARE: ASSESSMENT: Jagruti Esparza is a 67 y.o. male who presented to ED as a transfer from OSH for concerns of cholecystitis. Also found to have troponins in 6000s. Patient is in critical condition and does not appear as though he would tolerate a surgical intervention at this time, especially given unclear cause of elevated tropes. Recommendations are as follows: No acute surgical intervention. Recommend IR consultation STAT for perc cholecystostomy tube for source control of sepsis Agree with IV ABX Recommend 500cc bolus Cards consult for elevated troponins Admit to ACS; will go to SICU for management. See SICU note for more detailed systems-based plan. Will follow-up outcome of percutaneous cholecystostomy tube. CHIEF COMPLAINT/REASON FOR CONSULT: Chief Complaint: C/f cholecystitis HPI: Jagruti Esparza is a 67 y.o. male with hx ESRD s/p kidney transplant 2012, atrial flutter (flecainide, dilt), HTN, complicated diverticulitis s/p laparoscopic sigmoid resection with end colostomy in 01/[address] Vasquez of colorectal surgery who presents to ED as transfer from OSH for concerns of cholecystitis for which we are consulted. Patient endorses 2-3 days of ongoing RUQ and epigastric tenderness. PAST MEDICAL HISTORY: PMH: As above Past Medical History: Diagnosis Date PONV (postoperative nausea and vomiting) PSH: Past Surgical History: Procedure Laterality Date CT GUIDED IMAGING FOR ABSCESS DRAIN 01/11/2023 CT GUIDED IMAGING FOR ABSCESS DRAIN 01/11/2023 Jerome Farrell MD [facility] [place] CT OTHER SURGICAL HISTORY 12/25/2020 Arteriovenous fistula creation procedure OTHER SURGICAL HISTORY 12/25/2020 Neck surgery OTHER SURGICAL HISTORY 12/25/2020 Kidney transplantation OTHER SURGICAL HISTORY 12/25/2020 Facial surgery OTHER SURGICAL HISTORY 12/25/2020 Vasectomy OTHER SURGICAL HISTORY 07/11/2021 Colonoscopy complete for polypectomy FH: No family history on file. SOCIAL HISTORY: Smoking: Social History Tobacco Use Smoking Status Never Smokeless Tobacco Never Alcohol: Social History Substance and Sexual Activity Alcohol Use Not Currently Drug use: Denies MEDICATIONS: Prior to Admission medications Medication Sig Start Date End Date Taking? Authorizing Provider azaTHIOprine (Imuran) 50 mg tablet Take 1 tablet (50 mg) by mouth once daily. 01/20/23 Mery Jones MD DILT-XR 180 mg 24 hr capsule Take 1 capsule (180 mg) by mouth once daily. Historical Provider, flecainide (Tambocor) 50 mg tablet Take 1 tablet (50 mg) by mouth every 8 hours. Historical Provider, magnesium oxide (Mag-Ox) 400 mg (241.3 mg magnesium) tablet Take 1 tablet (400 mg) by mouth once daily. 11/17/22 Historical Provider, oxyCODONE (Roxicodone) 5 mg immediate release tablet Take 1 tablet (5 mg) by mouth every 6 hours ifneeded for moderate pain (4 - 6). 01/21/23 Mery Jones MD pantoprazole (ProtoNix) 20 mg EC tablet Take 1 tablet (20 mg) by mouth twice a day. 07/20/22 Historical Provider, polyethylene glycol (Glycolax, Miralax) 17 gram packet Take 17 g by mouth once daily. Do not start before January 21, 2023. 01/21/23 Mery Jones MD predniSONE (Deltasone) 5 mg tablet Take 1 tablet (5 mg) by mouth once daily. Historical Provider, rOPINIRole (Requip) 1 mg tablet Take 1 tablet (1 mg) by mouth once daily at bedtime. 06/13/13 Historical Provider, sulfamethoxazole-trimethoprim (Bactrim) 400-80 mg tablet Take 1 tablet by mouth once daily. Historical Provider, tacrolimus (Prograf) 0.5 mg capsule Take 0.5 mg by mouth 2 times a day. 01/20/23 Mery Jones MD ALLERGIES: Allergies Allergen Reactions Cephalexin Hives, Rash and Headache headache Other reaction(s): Unknown Reaction headache Tobramycin Rash Other Reaction(s): pain rash Pain in groin and rectum area Other Reaction(s): pain rash Pain in groin and rectum area Meperidine Dizziness [place] weird Other reaction(s): Other: See Comments, Unknown Reaction dizziness Erythromycin Rash headache Other reaction(s): Other: See Comments headache Penicillins Hives and Rash At 8 months old, swelling and hives. REVIEW OF SYSTEMS: ROS limited by patient altered status. PHYSICAL EXAM: GEN: Appears in some distress. Alerts to voice but appears to have altered mental status; does not respond to questioning consistently. Diaphoretic. HEENT: Atraumatic. Sclera anicteric. Moist mucous membranes. RESP: Breathing non-labored, equal chest rise. On 4LNC. CV: Regular rate, hypertensive to 160s GI: Abdomen soft, nondistended, tender to palpation diffusely but worst in epigastrium and RUQ : Bowers in place with pink-tinged urine. MSK: No gross deformities. Moves all extremities spontaneously. NEURO: Alert; unable to assess orientation due to poor cooperativity and somnolence SKIN: Anicteric, nonjaundiced IMAGING SUMMARY: XR chest 1 view Result Date: 02/24/2023 STUDY: XR CHEST 1 VIEW; 02/24/2023 10:15 pm INDICATION: Signs/Symptoms:new O2 requirement. COMPARISON: Chest radiograph dated 01/14/2023 ACCESSION NUMBER(S): [id number] ORDERING CLINICIAN: HERI MILLARD FINDINGS: AP radiograph of the chest was provided. CARDIOMEDIASTINAL SILHOUETTE: Cardiomediastinal silhouette is mildly enlarged, stable in size and configuration. LUNGS: Prominent pulmonaryvascular and interstitial markings bilaterally. There are medial right lower lung airspace opacities. There is trace blunting of the left costophrenic angle. No pneumothorax. ABDOMEN: No remarkable upper abdominal findings. BONES: No acute osseous changes. 1. Medial right lower lung airspace opacities may represent atelectasis with infection/aspiration not excluded. 2. Prominent pulmonary vascular and interstitial markings suggestive of interstitial pulmonary edema. Correlate with volume status. 3. Trace left pleural effusion. I personally reviewed the images/study and I agree with the findings as stated above by resident physician, Kurt Godfrey MD. This study was interpreted at [facility], [place], [place]. MACRO: None. Dictation workstation: [id number] LABS: Results for orders placed or performed during the hospital encounter of 02/24/23 (from the past 24 hour(s)) CBC and Auto Differential Result Value Ref Range WBC 15.5 (H) 4.4 - 11.3 x10*3/uL nRBC 0.0 0.0 - 0.0 /100 WBCs RBC 4.62 4.50 - 5.90 x10*6/uL Hemoglobin 10.9 (L) 13.5 - 17.5 g/dL Hematocrit 35.9 (L) 41.0 - 52.0 % MCV 78 (L) 80 - 100 fL MCH 23.6 (L) 26.0 - 34.0 pg MCHC 30.4 (L) 32.0 - 36.0 g/dL RDW 17.9 (H) 11.5 - 14.5 % Platelets 148 (L) 150 - 450 x10*3/uL Neutrophils % 88.1 40.0 - 80.0 % Immature Granulocytes %, Automated 1.9 (H) 0.0 - 0.9 % Lymphocytes % 6.2 13.0 - 44.0 % Monocytes % 3.3 2.0 - 10.0 % Eosinophils % 0.1 0.0 - 6.0 % Basophils % 0.4 0.0 - 2.0 % Neutrophils Absolute 13.65 (H) 1.20 - 7.70 x10*3/uL Immature Granulocytes Absolute, Automated 0.30 0.00 - 0.70 x10*3/uL Lymphocytes Absolute 0.96 (L) 1.20 - 4.80 x10*3/uL Monocytes Absolute 0.51 0.10 - 1.00 x10*3/uL Eosinophils Absolute 0.02 0.00 - 0.70 x10*3/uL Basophils Absolute 0.06 0.00 - 0.10 x10*3/uL Hepatic function panel Result Value Ref Range Albumin 3.1 (L) 3.4 - 5.0 g/dL Bilirubin, Total 0.7 0.0 - 1.2 mg/dL Bilirubin, Direct 0.1 0.0 - 0.3 mg/dL Alkaline Phosphatase 81 33 - 136 U/L ALT 8 (L) 10 - 52 U/L AST 23 9 - 39 U/L Total Protein 6.0 (L) 6.4 - 8.2 g/dL Basic metabolic panel Result Value Ref Range Glucose 90 74 - 99 mg/dL Sodium 131 (L) 136 - 145 mmol/L Potassium 4.4 3.5 - 5.3 mmol/L Chloride 100 98 - 107 mmol/L Bicarbonate 21 21 - 32 mmol/L Anion Gap 14 10 - 20 mmol/L Urea Nitrogen 16 6 - 23 mg/dL Creatinine 0.90 0.50 - 1.30 mg/dL eGFR >90 >60 mL/min/1.73m*2 Calcium 9.8 8.6 - 10.6 mg/dL Phosphorus Result Value Ref Range Phosphorus 1.3 (L) 2.5 - 4.9 mg/dL Magnesium Result Value Ref Range Magnesium 1.35 (L) 1.60 - 2.40 mg/dL Troponin I, High Sensitivity Result Value Ref Range Troponin I, High Sensitivity 6,669 (HH) 0 - 53 ng/L Lipase Result Value Ref Range Lipase 18 9 - 82 U/L I have reviewed all laboratory and imaging results ordered/pertinent for this encounter. Seen and staffed with Dr. Preston. Marc Mancuso MD PGY-1 General Surgery Acute Care Surgery [id number] Associated attestation - Evan Preston MD - 02/25/2023 5:12 AM EST I saw and evaluated the patient. I personally obtained the florez and critical portions of the historyand physical exam or was physically present for florez and critical portions performed by the resident/fellow. I reviewed the resident/fellow's documentation and discussed the patient with the resident/f chance. I agree with the resident/fellow's medical decision making as documented in the note with the exception/addition of the following: Patient on immunosuppressives s/p remote kidney transplant. Diaphoretic, with leukocytosis and RUQ abd pain on palpation. Ct with significant inflammation at GB. Troponins are 6K. Cardiology, and transplant nephrology consults for assistance with medical management. Will go to TSICU. Undergoing perc kerline with IR. Monitor for resolution of symptoms and signs. Continue abx. Plan discussed with patient and . [facility] Phone: 1(306) 533-876312-20-2023 Hospital Discharge instructions* Discharge Instructions* Ludy Chandler MD - 03/03/2023 8:26 AM EST Mr. Esparza, Chuck were admitted on 02/24/2023 for abdominal pain and found to have cholecystitis (gallbladder inflammation). You also had high cardiac enzymes, which were concerning for impaired blood flow to yourheart. Due to the concern on your heart, we placed a drain in your gallbladder instead of performing surgery. 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 Since you had other vessels growing around the LAD, they did not place a stent in your LAD. You will contacted to follow up with a flying shear operator in 1-3 weeks. You will be following up with Dr.William Mark, Cardiology in [place], an appointment has been requested for you. You will be contacted to schedule an imaging procedure for your gallbladder in 1 month with surgery, a referral to see a surgeon in [facility] has been requested. Please also follow up with your primary care doctor, we have referred you to one in [facility]. Please start taking atorvastatin and aspirin every day to protect your heart. Please STOP taking flecainide. We will start you on Eliquis (apixaban), a blood thinner to prevent clots from your atrial fibrillation. You can continue taking all your other home medications as prescribed. * Discharge Instr - Other Orders* Elsy Plummer RN - 03/05/2023 12:32 PM EST [facility] will provide you home health services. Their contact information is [phone]. The agency will contact you to schedule services 24-72 hours after discharge. documented in this [facility] Work Phone: [phone]) 912-795812-14-2023 Procedure note* Donnie Griffin MD - 02/25/2023 11:24 PM ESTAssociated Order(s): Arterial Puncture/Cannulation Post-Procedure Diagnose(s): Sepsis, due to unspecified organism, unspecified whether acute organ dysfunction present ([facility]) Patient ID: Jagruti Esparza is a 67 y.o. male. Arterial Puncture/Cannulation Date/Time: 02/25/2023 11:27 PM Performed by: Donnie Griffin MD Authorized by: Donnie Griffin MD Consent: Verbal consent obtained. Written consent obtained. Consent given by: patient and spouse Patient understanding: patient states understanding of the procedure being performed Patient consent: the patient's understanding of the procedure matches consent given Procedure consent: procedure consent matches procedure scheduled Relevant documents: relevant documents present and verified Test results: test results available and properly labeled Site marked: the operative site was marked Imaging studies: imaging studies not available Required items: required blood products, implants, devices, and special equipment available Patient identity confirmed: verbally with patient and arm band Time out: Immediately prior to procedure a time out was called to verify the correct patient, procedure, equipment, logistics support and site/side marked as required. Preparation: Patient was prepped and draped in the usual sterile fashion. Local anesthesia used: yes Anesthesia: local infiltration Anesthesia: Local anesthesia used: yes Local Anesthetic: lidocaine 1% without epinephrine Anesthetic total: 3 mL Sedation: Patient sedated: no Patient tolerance: patient tolerated the procedure well with no immediate complications Comments: L radial artery visualized with ultrasound guidance. Local anesthetic infiltrated as above. Artery cannulized under cannulized under ultrasound guidance. Flashback of blood seen, position confirmed with ultrasound. A guidewire was inserted through the 18-gauge needle. Arterial line cannula placed under Seldinger technique. A line set up was attached and a good waveform was seen. ABG sent to confirm placement. Patient tolerated the procedure well without any immediate complication. Sutured into place with occlusive dressing placed. Associated attestation - Francisco Olson MD - 02/26/2023 6:40 AM EST I was present for the entirety of the procedure(s). * Von Pompa MD - 02/25/2023 6:41 PM ESTAssociated Order(s): Central Line Post-Procedure Diagnose(s): Sepsis due to Escherichia coli with acute organ dysfunction, unspecified organ dysfunction type, unspecified whether septic shock present ([facility]) Central Line Date/Time: 02/25/2023 6:42 PM Performed by: Von Pompa MD Authorized by: Kang Galvan MD Consent: Consent obtained: Written and verbal Consent given by: Patient Risks, benefits, and alternatives were discussed: yes Risks discussed: Arterial puncture, bleeding and pneumothorax Alternatives discussed: No treatment and alternative treatment [place] protocol: Procedure explained and questions answered to patient or proxy's satisfaction: yes Patient identity confirmed: Verbally with patient Pre-procedure details: Indication(s): central venous access and insufficient peripheral access Hand hygiene: Hand hygiene performed prior to insertion Sterile barrier technique: All elements of maximal sterile technique followed Skin preparation: Chlorhexidine Sedation: Sedation type: None Anesthesia: Anesthesia method: Local infiltration Local anesthetic: Lidocaine 1% WITH epi Procedure details: Location: L internal jugular Patient position: Reverse Trendelenburg Procedural supplies: Triple lumen Catheter size: 7 Fr Landmarks identified: yes Ultrasound guidance: yes Ultrasound guidance timing: real time Sterile ultrasound techniques: Sterile gel and sterile probe covers were used Number of attempts: 4 Successful placement: yes Post-procedure details: Post-procedure: Line sutured and dressing applied Assessment: Blood return through all ports Procedure completion: Tolerated Comments: Placement of 7 Niuean, 20 cm catheter in left internal jugular. Associated attestation - Kang Galvan MD - 02/26/2023 10:12 AM EST I was present for and assisted with this procedure. Indication: Need for central venous access in ND and sepsis/shock. documented in this [facility] Work Phone: [phone] 278-846212-14-2023 History and physical note* Jeanne Oscar PA-C - 02/25/2023 5:01 PM EST This H&P and the cardiology consult note both reviewed. The patient was examined and there are no changes to the H&P. Source Note - Tim Arrington MD - 02/25/2023 2:05 PM EST Reason For Consult H/o kidney transplant, immunosuppression management History Of Present Illness Jagruti Esparza is a 67 y.o. male with a PMH of ESRD s/p LUKT 2012, on immunosuppression, pAF/Afib not on AC (on Flecainide/Diltiazem), mild aortic stenosis, recent admission for diverticulitis s/p sigmpoid colectomy and colostomy who is transferred from outside hospital with acute acalculous cholecy stitis s/p IR placement of percutaneous cholecystostomy tube on 12 am. Also noted to have elevated troponin, concern for NSTEMI. Nephrology consulted for management of immunosuppression. Baseline serum Cr 0.6-0.8 mg/dl. Cr this admission ~ 1 mg/dl. Acceptable lytes, CO2, other metabolic parameters. Current immunosuppression: Imuran 50 mg/d, tac 0.5 mg q12, pred 5 mg/d. During recent admission for diverticulitis MMF was initially held and then later switched to [id number]. Seen by cardiology for NSTEMI. Being managed conservatively with heparin drip. Pt seen at bedside this am. C/o RUQ pain. S/p drain by IR this am. Bowers in place. Denies any chest pain, dyspnea, PND or other complaints. No LE swelling. Stable hemodynamics. S/p empiric braod spectrum abx. Currently on aztreonam. Recent UA concerning for infection. Ucx pending. Pt denies any LUTS prior to admission. Tolerating current IS meds well at home. ROS negative otherwise Past Medical History Reviewed. As listed above Surgical History As noted above Social History He reports that he has never smoked. He has never used smokeless tobacco. He reports that he does not currently use alcohol. He reports that he does not use drugs. Family History No family history on file. Allergies Cephalexin, Tobramycin, Meperidine, Erythromycin, and Penicillins Physical Exam Last Recorded Vitals Blood pressure (!) 101/25, pulse 71, temperature 36.4 C (97.5 F), temperature source Temporal, resp. rate 15, height 1.803 m (5' 10.98 ), weight 86.1 kg (189 lb 13.1 oz), SpO2 100 %. A&ox3, mild distress (sec to post-procedure pain) Lungs clear anteriorly Rrr, no m/r/g Abd soft, nt, nd No allograft tenderness No edema b/l Scheduled medications acetaminophen, 650 mg, oral, q6h azaTHIOprine, 50 mg, oral, Daily aztreonam, 2 g, intravenous, q8h dilTIAZem XR, 180 mg, oral, Daily flecainide, 50 mg, oral, q8h TREMAINE heparin (porcine), 5,000 Units, subcutaneous, q8h TREMAINE insulin lispro, 0-5 Units, subcutaneous, q4h lidocaine, 5 mL, infiltration, Once metroNIDAZOLE, 500 mg, intravenous, q8h pantoprazole, 40 mg, intravenous, Daily perflutren lipid microspheres, 0.5-10 mL of dilution, intravenous, Once in imaging perflutren protein A microsphere, 0.5 mL, intravenous, Once in imaging [START ON 02/26/2023] polyethylene glycol, 17 g, oral, Every other day predniSONE, 5 mg, oral, Daily rOPINIRole, 1 mg, oral, Nightly sodium chloride 0.9%, 10 mL, intra-catheter, q12h sulfamethoxazole-trimethoprim, 1 tablet, oral, q AM sulfur hexafluoride microsphr, 2 mL, intravenous, Once in imaging tacrolimus, 0.5 mg, oral, BID Continuous medications lactated Ringer's, 100 mL/hr, Last Rate: 100 mL/hr (02/25/23 0358) PRN medications PRN medications: acetaminophen, alteplase, dextrose 10 % in water (D10W), dextrose 10 % in water (D10W), dextrose, dextrose, glucagon, glucagon, oxyCODONE, oxyCODONE, oxygen, sodium chloride 0.9% Results for orders placed or performed during the hospital encounter of 02/24/23 (from the past 24 hour(s)) CBC and Auto Differential Result Value Ref Range WBC 15.5 (H) 4.4 - 11.3 x10*3/uL nRBC 0.0 0.0 - 0.0 /100 WBCs RBC 4.62 4.50 - 5.90 x10*6/uL Hemoglobin 10.9 (L) 13.5 - 17.5 g/dL Hematocrit 35.9 (L) 41.0 - 52.0 % MCV 78 (L) 80 - 100 fL MCH 23.6 (L) 26.0 - 34.0 pg MCHC 30.4 (L) 32.0 - 36.0 g/dL RDW 17.9 (H) 11.5 - 14.5 % Platelets 148 (L) 150 - 450 x10*3/uL Neutrophils % 88.1 40.0 - 80.0 % Immature Granulocytes %, Automated 1.9 (H) 0.0 - 0.9 % Lymphocytes % 6.2 13.0 - 44.0 % Monocytes % 3.3 2.0 - 10.0 % Eosinophils % 0.1 0.0 - 6.0 % Basophils % 0.4 0.0 - 2.0 % Neutrophils Absolute 13.65 (H) 1.20 - 7.70 x10*3/uL Immature Granulocytes Absolute, Automated 0.30 0.00 - 0.70 x10*3/uL Lymphocytes Absolute 0.96 (L) 1.20 - 4.80 x10*3/uL Monocytes Absolute 0.51 0.10 - 1.00 x10*3/uL Eosinophils Absolute 0.02 0.00 - 0.70 x10*3/uL Basophils Absolute 0.06 0.00 - 0.10 x10*3/uL Hepatic function panel Result Value Ref Range Albumin 3.1 (L) 3.4 - 5.0 g/dL Bilirubin, Total 0.7 0.0 - 1.2 mg/dL Bilirubin, Direct 0.1 0.0 - 0.3 mg/dL Alkaline Phosphatase 81 33 - 136 U/L ALT 8 (L) 10 - 52 U/L AST 23 9 - 39 U/L Total Protein 6.0 (L) 6.4 - 8.2 g/dL Basic metabolic panel Result Value Ref Range Glucose 90 74 - 99 mg/dL Sodium 131 (L) 136 - 145 mmol/L Potassium 4.4 3.5 - 5.3 mmol/L Chloride 100 98 - 107 mmol/L Bicarbonate 21 21 - 32 mmol/L Anion Gap 14 10 - 20 mmol/L Urea Nitrogen 16 6 - 23 mg/dL Creatinine 0.90 0.50 - 1.30 mg/dL eGFR >90 >60 mL/min/1.73m*2 Calcium 9.8 8.6 - 10.6 mg/dL Phosphorus Result Value Ref Range Phosphorus 1.3 (L) 2.5 - 4.9 mg/dL Magnesium Result Value Ref Range Magnesium 1.35 (L) 1.60 - 2.40 mg/dL Lactate Result Value Ref Range Lactate 5.1 (HH) 0.4 - 2.0 mmol/L Troponin I, High Sensitivity Result Value Ref Range Troponin I, High Sensitivity 6,669 (HH) 0 - 53 ng/L B-Type Natriuretic Peptide Result Value Ref Range BNP 1,234 (H) 0 - 99 pg/mL Lipase Result Value Ref Range Lipase 18 9 - 82 U/L Sars-CoV-2 and Influenza A/B PCR Result Value Ref Range Flu A Result Not Detected Not Detected Flu B Result Not Detected Not Detected Coronavirus 2019, PCR Not Detected Not Detected ECG 12 lead Result Value Ref Range Ventricular Rate 105 BPM Atrial Rate 105 BPM AZ Interval 190 ms QRS Duration 100 ms QT Interval 320 ms QTC Calculation(Bazett) 422 ms P [place] 23 degrees R [place] -8 degrees T [place] 71 degrees QRS Count 17 beats Q Onset 215 ms P Onset 120 ms P Offset 181 ms T Offset 375 ms QTC Fredericia 385 ms ECG 12 lead Result Value Ref Range Ventricular Rate 102 BPM Atrial Rate 102 BPM AZ Interval 224 ms QRS Duration 98 ms QT Interval 338 ms QTC Calculation(Bazett) 440 ms P [place] -20 degrees R [place] -19 degrees T [place] 61 degrees QRS Count 17 beats Q Onset 216 ms P Onset 104 ms P Offset 182 ms T Offset 385 ms QTC Fredericia 403 ms Blood Culture Specimen: Peripheral Venipuncture; Blood culture Result Value Ref Range Blood Culture Loaded on Instrument - Culture in progress Blood Culture Specimen: Peripheral Venipuncture; Blood culture Result Value Ref Range Blood Culture Loaded on Instrument - Culture in progress Troponin I, High Sensitivity Result Value Ref Range Troponin I, High Sensitivity 6,518 (HH) 0 - 53 ng/L Lactate Result Value Ref Range Lactate 4.8 (HH) 0.4 - 2.0 mmol/L Urinalysis with Reflex Microscopic and Culture Result Value Ref Range Color, Urine Nena (N) Straw, Yellow Appearance, Urine Hazy (N) Clear Specific [place], Urine 1.020 1.005 - 1.035 pH, Urine 5.0 5.0, 5.5, 6.0, 6.5, 7.0, 7.5, 8.0 Protein, Urine 30 (1+) (N) NEGATIVE mg/dL Glucose, Urine NEGATIVE NEGATIVE mg/dL Blood, Urine NEGATIVE NEGATIVE Ketones, Urine NEGATIVE NEGATIVE mg/dL Bilirubin, Urine NEGATIVE NEGATIVE Urobilinogen, Urine 2.0 (N) <2.0 mg/dL Nitrite, Urine NEGATIVE NEGATIVE Leukocyte Esterase, Urine SMALL (1+) (A) NEGATIVE Extra Urine Perez Tube Result Value Ref Range Extra Tube Hold for add-ons. Microscopic Only, Urine Result Value Ref Range WBC, Urine 21-50 (A) 1-5, NONE /HPF RBC, Urine 3-5 NONE, 1-2, 3-5 /HPF Budding Yeast, Urine PRESENT (A) NONE /HPF Mucus, Urine 2+ Reference range not established. /LPF Protime-INR Result Value Ref Range Protime 15.2 (H) 9.8 - 12.8 seconds INR 1.3 (H) 0.9 - 1.1 BLOOD GAS VENOUS FULL PANEL Result Value Ref Range POCT pH, Venous 7.32 (L) 7.33 - 7.43 pH POCT pCO2, Venous 38 (L) 41 - 51 mm Hg POCT pO2, Venous 40 35 - 45 mm Hg POCT SO2, Venous 60 45 - 75 % POCT Oxy Hemoglobin, Venous 58.1 45.0 - 75.0 % POCT Hematocrit Calculated, Venous 29.0 (L) 41.0 - 52.0 % POCT Sodium, Venous 124 (L) 136 - 145 mmol/L POCT Potassium, Venous 4.5 3.5 - 5.3 mmol/L POCT Chloride, Venous 99 98 - 107 mmol/L POCT Ionized Calicum, Venous 1.42 (H) 1.10 - 1.33 mmol/L POCT Glucose, Venous 92 74 - 99 mg/dL POCT Lactate, Venous 3.2 (H) 0.4 - 2.0 mmol/L POCT Base Excess, Venous -6.0 (L) -2.0 - 3.0 mmol/L POCT HCO3 Calculated, Venous 19.6 (L) 22.0 - 26.0 mmol/L POCT Hemoglobin, Venous 9.7 (L) 13.5 - 17.5 g/dL POCT Anion Gap, Venous 10.0 10.0 - 25.0 mmol/L Patient Temperature 37.0 degrees Celsius FiO2 0 % Basic Metabolic Panel Result Value Ref Range Glucose 85 74 - 99 mg/dL Sodium 130 (L) 136 - 145 mmol/L Potassium 4.7 3.5 - 5.3 mmol/L Chloride 102 98 - 107 mmol/L Bicarbonate 18 (L) 21 - 32 mmol/L Anion Gap 15 10 - 20 mmol/L Urea Nitrogen 18 6 - 23 mg/dL Creatinine 0.81 0.50 - 1.30 mg/dL eGFR >90 >60 mL/min/1.73m*2 Calcium 8.8 8.6 - 10.6 mg/dL Sterile Fluid Culture/Smear Specimen: Aspirate; Fluid Result Value Ref Range Gram Stain (3+) Moderate Polymorphonuclear leukocytes (A) Gram Stain (4+) Abundant Gram negative bacilli (A) POCT GLUCOSE Result Value Ref Range POCT Glucose 94 74 - 99 mg/dL Tacrolimus level Result Value Ref Range Tacrolimus 4.5 <=15.0 ng/mL Troponin I, High Sensitivity Result Value Ref Range Troponin I, High Sensitivity 5,973 (HH) 0 - 53 ng/L Magnesium Result Value Ref Range Magnesium 2.33 1.60 - 2.40 mg/dL Fibrinogen Result Value Ref Range Fibrinogen 379 200 - 400 mg/dL Calcium, ionized Result Value Ref Range POCT Calcium, Ionized 1.41 (H) 1.1 - 1.33 mmol/L Renal Function Panel Result Value Ref Range Glucose 55 (LL) 74 - 99 mg/dL Sodium 129 (L) 136 - 145 mmol/L Potassium 5.0 3.5 - 5.3 mmol/L Chloride 97 (L) 98 - 107 mmol/L Bicarbonate 21 21 - 32 mmol/L Anion Gap 16 10 - 20 mmol/L Urea Nitrogen 20 6 - 23 mg/dL Creatinine 1.04 0.50 - 1.30 mg/dL eGFR 79 >60 mL/min/1.73m*2 Calcium 9.9 8.6 - 10.6 mg/dL Phosphorus 3.2 2.5 - 4.9 mg/dL Albumin 3.0 (L) 3.4 - 5.0 g/dL Hepatic Function Panel Result Value Ref Range Albumin 3.0 (L) 3.4 - 5.0 g/dL Bilirubin, Total 0.9 0.0 - 1.2 mg/dL Bilirubin, Direct 0.2 0.0 - 0.3 mg/dL Alkaline Phosphatase 89 33 - 136 U/L ALT 9 (L) 10 - 52 U/L AST 27 9 - 39 U/L Total Protein 5.9 (L) 6.4 - 8.2 g/dL POCT GLUCOSE Result Value Ref Range POCT Glucose 91 74 - 99 mg/dL Transthoracic Echo (TTE) Limited Result Value Ref Range AV pk dav 2.18 AV mn grad 8.0 LVOT diam 2.30 LV biplane EF 54 MV E/A ratio 1.25 LVIDd 6.60 RVSP 39.5 Aortic Valve Area by Continuity of VTI 3.15 Aortic Valve Area by Continuity of Peak Velocity 2.99 AV pk grad 19.0 LV A4C EF 53.0 POCT GLUCOSE Result Value Ref Range POCT Glucose 96 74 - 99 mg/dL Aspirate culture: Gm negative bacilli CT chest with contrast: IMPRESSION: 1. Gallbladder wall thickening with pericholecystic fluid. Possible biliary sludge. Findings are concerning for cholecystitis. Consider right upper quadrant ultrasound. 2. Postsurgical changes of left lower quadrant end colostomy. Hazy fat stranding surrounding the descending and sigmoid colon may represent postsurgical changes, colitis, or mild diverticulitis. Correlate clinically. 3. Similar appearance compared to prior of a 2 cm right middle lobe density with adjacent satellite nodules/tree-in-bud opacities. Findings may be infectious or malignant. PET-CT or three-month follow-up chest CT is recommended for further evaluation. 4. Ectatic main pulmonary artery measuring 3.6 cm in diameter which can be seen in pulmonary hypertension. Correlate clinically. 5. Status post renal transplant in the right iliac fossa. 6. Contrast within the subcutaneous soft tissues anterior to the left shoulder, likely secondary to contrast extravasation. Please correlate with neurovascular examination. 7. The right lateral abdominal wall is not completely included in the field of view. 8. Additional chronic findings as above. A&P: S/p LUKT: 2012 - baseline Cr <1 mg/dl. Stable on admission labs. Serum K, CO2 acceptable - chronic mild-mod hyponatremia. Would check urine electrolytes, urine and serum osmolality when ptis in steady state - HTN: Bps acceptable. Titrate meds as indicated - no hypervolemia on exam - Hb 10.9, acceptable. Ca acceptable. Hypophos noted, replete as indicated. Pls check PTH, vit D with next labs. Immunosuppression: cont tac 0.5 mg bid, pred 5 mg/d. - given leukocytosis, +ve fluid cx, would hold Imuran till completion of abx course. - pls check tac trough levels daily. Last Fk trough 4.5, at goal. - UTI, possible: follow up urine culture Will follow I spent 45 minutes in the professional and overall care of this patient. Tim Arrington MD documented in this [facility] Work Phone: [phone] 441-864912-13-2023 Emergency department Note* Heri Millard DO - 02/24/2023 9:22 PM EST CC: Abdominal Pain History provided by: Patient, Family Member, and EMS Limitations to History: None HPI: Patient is a 67-year-old male with extensive medical history quitting but not limited to prior kidney transplant in 2012, atrial flutter on flecainide and diltiazem, hypertension, complicated diverticulitis with pericolonic abscess status post IR drainage and laparoscopic sigmoid resection with endcolostomy in January 2023 presents from outside hospital with right upper quadrant and epigastric tenderness ongoing for the past few days. Unable to elicit full history from patient secondary to drowsiness however he is alert and oriented x3. External Records Reviewed: I reviewed prior ED visits, Care Everywhere, discharge summaries and outpatient records as appropriate. ? Triage Vitals: T 37.3 C (99.1 F) HR 100 BP 139/59 RR 14 O2 (!) 85 % None (Room air) Physical Exam Vitals and nursing note reviewed. Constitutional: General: He is not in acute distress. Appearance: Normal appearance. HENT: Head: Normocephalic and atraumatic. Eyes: Conjunctiva/sclera: Conjunctivae normal. Cardiovascular: Rate and Rhythm: Normal rate and regular rhythm. Pulmonary: Effort: Pulmonary effort is normal. No respiratory distress. Abdominal: General: Abdomen is flat. Palpations: Abdomen is soft. Tenderness: There is abdominal tenderness in the right upper quadrant. There is guarding. Positive signs include Ceron's sign. Comments: Ostomy site appears clean, dry, intact Musculoskeletal: General: Normal range of motion. Cervical back: Normal range of motion and neck supple. Comments: RUE old fistula site Skin: General: Skin is warm and dry. Neurological: General: No focal deficit present. Mental Status: He is alert and oriented to person, place, and time. Mental status is at baseline. Psychiatric: Mood and Affect: Mood normal. Behavior: Behavior normal. ? ED Course/Treatment/Medical Decision Making MDM: Patient is a 67-year-old male who presents as a transfer from outside hospital in the setting of acute cholecystitis. Vital signs notable for new oxygen requirement of 4 L overall lungs sound clear to auscultation, patient denies shortness of breath or chest pain. Does not appear septic or peritonitic or jaundiced, at baseline mental status per . New oxygen requirement may be secondary to drowsiness on examination and WILLIAN. Patient does have right upper quadrant tenderness palpation with voluntary guarding on my examination. Patient received ciprofloxacin and Flagyl prior to transport at approximately 1845 therefore medications were not redosed. ACS consulted. CXR ordered for new O2 requirement. Per OSH note, troponin elevated in , no STEMI, repeated troponin here and EKG obtained. Chest x-ray overall stable from prior, no new consolidation or effusion, stable perihilar edema. Idid consider CT PE with new oxygen requirement however given patient's history of kidney transplantwill await ACS recommendations and further workup before repeat contrast study is ordered. Prior tothe end of my shift, patient did have a temperature of 100.5 and tachycardic to 100s and meet SIRS criteria therefore blood cultures obtained and patient redosed on Flagyl. ED Course: ED Course as of 02/24/232231Feb 24, 2023 2158 EKG done at 2152 with sinus tachycardia rate 105, AZ interval 190 ms, QRS 100 ms, QTc 422 ms, no acute ST segment elevations or depressions, no obvious T wave inversions, limited interpretation secondary to motion artifact [SA] ED Course User Index [SA] Heri Millard DO Diagnoses as of 02/24/232231 Right upper quadrant abdominal pain EKG Interpretation: See ED Course/Below: Independent Interpretation of Studies: I independently interpreted labs/imaging as stated in ED Course or below. Differential diagnoses considered include but are not limited to: See MDM/Below: Social Determinants Limiting Care: None identified Disposition: Patient signed out in stable condition pending completion of workup including labs, troponin, ACS recommendations and final disposition GUILHERME Isaac, PGY-2 I reviewed the case with the attending ED physician. The attending ED physician agrees with the plan. Patient and/or patient s direct marketing representative was counseled regarding labs, imaging, likely diagnosis, and plan. All questions were answered. Disclaimer: This note was dictated by speech recognition. Attempt at proofreading was made to minimize errors. Errors in airborne missions systems may be present. Please call if questions. Procedures ? SmartLinks last updated 02/24/2023 9:23 PM Heri Millard DO Resident 02/24/23 4302 Associated attestation - Vivian Espino MD - 02/24/2023 10:37 PM EST The patient was seen by the resident/fellow. I have personally performed a substantive portion of the encounter. I have seen and examined the patient; agree with the workup, evaluation, MDM, management and diagnosis. The care plan has been discussed with the resident; I have reviewed the resident snote and agree with the documented findings. * Jessica Leslie RN - 02/24/2023 9:03 PM EST Txf from [facility]. Recent hx of perforated bowel requiring ostomy placement, done here. Now having abdominal pain, n/v x 3 days. OSH choleycystitis. Txf for further intervention. [facility]: [phone]) 125-482212-13-2023 Evaluation + Plan noteExtracted from: Title:ED Note Author:Gena Garzon DO Date:1 04/27/22 Ordered: ciprofloxacin + Dextrose 5% in Water intravenous solution 200 mL, 400 mg = 200 mL, IV Piggyback, Once, Stop date 02/24/23 18:44:00 EST, STAT, Start date 02/24/23 18:44:00 EST, 200 mL/hr, Infuse over 60 minute(s), 02/24/23 18:44:00 EST famotidine, 20 mg = 2 mL, Soln-IV, IV Push, Once, Stop date 02/24/23 16:51:00 EST, STAT, Start date 02/24/23 16:51:00 EST, 02/24/23 16:51:00 EST metronidazole + Generic Diluent 100 mL, 500 mg = 100 mL, IV Piggyback, Once, Stop date 02/24/23 18:44:00 EST, STAT, Start date 02/24/23 18:44:00 EST, 100 mL/hr, Infuse over 60 minute(s), 02/24/23 18:44:00 EST Sodium Chloride 0.9% intravenous solution, 500 mL, Soln-IV, IV, Once, Stop date 02/24/23 16:51:00 EST, STAT, Start date 02/24/23 16:51:00 EST, 500 mL/hr, Infuse over 1, hour(s) Automated Diff Basic Metabolic Panel CBC w/ Auto Diff CT Abdomen/Pelvis w/o Contrast ED Cardiac Monitoring eGFR Hepatic Function Panel Lipase Level Morphology NPO Diet PT & PTT Saline Lock Insert Troponin 0 Hr. Addendum by Gena Garzon DO on February 24, 2023 19:41:25 EST Additional diagnoses: Acute cholecystitis Elevated troponin History of renal transplant Future Scheduled Tests Laboratory* Tacrolimus Lvl 02/10/23 * CBC w/ Auto Diff 02/10/23 * Comprehensive Metabolic Panel 02/10/23 [facility]12-13-2023 Evaluation note* Encounter Date Diagnosis Assessment Notes Treatment Notes Treatment Clinical Notes Feb, Kidney transplant status (ICD-10 - Z94.0) [employer] Other 11-29-2023 Evaluation + Plan note Future Scheduled Tests Laboratory* Tacrolimus Lvl 02/10/23 * CBC w/ Auto Diff 02/10/23 * Comprehensive Metabolic Panel 02/10/23 [facility]11-28-20[facility]FishKenn[facility] InstituteComment on above:Result Comment: Electronically Signed By: Melissa Cameron.br\Date and Time Signed: 01/31/23 22:16 EST\.br\Electronically Co-Signed By: Melissa Cameronbr\Date and Time Co-Signed: 01/31/23 22:20 EST\.br\Electronically Co-Signed By: ALAHMAD MD, Alaa\.br\Date and Time Co-Sig roxann: 02/09/23 13:48 [id number] [facility]:Result Comment: Electronically Signed By: Melissa Cameron\.br\Date and Time Signed: 02/03/23 22:09 EST\.br\Electronically Co-Signed By: Abdirizak MARTIN MD\.br\Date and Time Co-Signed: 02/04/23 08:00 [id number] Hospital Discharge instructions Patient Education 02/03/2023 16:31:57 Hyponatremia, [id number] Hyponatremia Hyponatremia is when the amount of salt (sodium) in your blood is too low. When salt levels are low, your body cells may take in extra water. This can cause swelling. The swelling often affects the brain. What are the causes? Certain medical problems or conditions. Vomiting a lot. Having watery poop (diarrhea) often. Sweating too much. Taking certain medicines or using illegal drugs. Fluids given through an IV tube. What increases the risk? Having heart, kidney, or liver failure. Having a medical condition that causes you to have watery poop a lot. Doing very hard exercises. Taking medicines that affect the amount of salt that is in your blood. What are the signs or symptoms? Symptoms of this condition include: Headache. Feeling like you may vomit (nausea). Vomiting. Being very tired. Muscle weakness and cramps. Not wanting to eat as much as normal. Feeling weak or dizzy. Very bad symptoms of this condition include: Confusion. Feeling restless. Having a fast heart rate. Fainting. Seizures. Coma. How is this treated? Treatment for this condition depends on the cause. Treatment may include: Getting fluids through an IV tube that is put into one of your veins. Taking medicines to fix the salt levels in your blood. If medicines are causing the problem, your medicines will need to be changed. Limiting how much water or fluid you take in, in some cases. Monitoring in the hospital to watch your symptoms. Follow these instructions at home: Take [id number] and prescription medicines only as told by your doctor. Many medicines can make this condition worse. Talk with your doctor about any medicines that you are taking. Do not drink alcohol. Keep all follow-up visits. Contact a doctor if: You feel more like you may vomit. You feel more tired. Your headache gets worse. You feel more confused. You feel weaker. Your symptoms go away and then they come back. Get help right away if: You have a seizure. You faint. You keep having watery poop. You keep vomiting. Summary Hyponatremia is when the amount of salt in your blood is too low. When salt levels are low, you can have swelling throughout the body. The swelling mostly affects the brain. Treatment depends on the cause. Treatment may include IV fluids and changing medicines. This information is not intended to replace advice given to you by your health care provider. Make sure you discuss any questions you have with your health care provider. Document Revised: 09/09/2021 Document Reviewed: 09/09/2021 [employer] Patient Education 2022 [employer]. 02/03/2023 16:25:21 Urinary Tract Infection, Adult, Jymf-wd-Ravh Urinary Tract Infection, Adult A urinary tract infection (UTI) is an infection of any part of the urinary tract. The urinary tractincludes: The kidneys. The ureters. The bladder. The urethra. These organs make, store, and get rid of pee (urine) in the body. What are the causes? This infection is caused by germs (bacteria) in your genital area. These germs grow and cause swelling (inflammation) of your urinary tract. What increases the risk? The following factors may make you more likely to develop this condition: Using a small, thin tube (catheter) to drain pee. Not being able to control when you pee or poop (incontinence). Being female. If you are female, these things can increase the risk: ?Using these methods to prevent : ?A medicine that kills sperm (spermicide). ?A device that blocks sperm (diaphragm). ?Having low levels of a female hormone (estrogen). ?Being . You are more likely to develop this condition if: You have genes that add to your risk. You are sexually active. You take antibiotic medicines. You have trouble peeing because of: ?A prostate that is bigger than normal, if you are male. ?A blockage in the part of your body that drains pee from the bladder. ?A kidney stone. ?A nerve condition that affects your bladder. ?Not getting enough to drink. ?Not peeing often enough. You have other conditions, such as: ?Diabetes. ?A weak disease-fighting system (immune system). ?Sickle cell disease. ?Gout. ?Injury of the spine. What are the signs or symptoms? Symptoms of this condition include: Needing to pee right away. Peeing small amounts often. Pain or burning when peeing. Blood in the pee. Pee that smells bad or not like normal. Trouble peeing. Pee that is cloudy. Fluid coming from the vagina, if you are female. Pain in the belly or lower back. Other symptoms include: Vomiting. Not feeling hungry. Feeling mixed up (confused). This may be the first symptom in older adults. Being tired and grouchy (irritable). A fever. Watery poop (diarrhea). How is this treated? Taking antibiotic medicine. Taking other medicines. Drinking enough water. In some cases, you may need to see a specialist. Follow these instructions at home: Medicines Take kgjp-old-jjrvxpv and prescription medicines only as told by your doctor. If you were prescribed an antibiotic medicine, take it as told by your doctor. Do not stop taking it even if you start to feel better. General instructions Make sure you: ?Pee until your bladder is empty. ?Do not hold pee for a long time. ?Empty your bladder after sex. ?Wipe from front to back after peeing or pooping if you are a female. Use each tissue one time whenyou wipe. Drink enough fluid to keep your pee pale yellow. Keep all follow-up visits. Contact a doctor if: You do not get better after 1 2 days. Your symptoms go away and then come back. Get help right away if: You have very bad back pain. You have very bad pain in your lower belly. You have a fever. You have chills. You feeling like you will vomit or you vomit. Summary A urinary tract infection (UTI) is an infection of any part of the urinary tract. This condition is caused by germs in your genital area. There are many risk factors for a UTI. Treatment includes antibiotic medicines. Drink enough fluid to keep your pee pale yellow. This information is not intended to replace advice given to you by your health care provider. Make sure you discuss any questions you have with your health care provider. Document Revised: 10/11/2020 Document Reviewed: 10/11/2020 [employer] Patient Education 2022 [employer]. 02/03/2023 16:25:11 Bacteremia, Adult Bacteremia, Adult Bacteremia is the presence of bacteria in the blood. When bacteria enter the bloodstream, they can cause a life-threatening reaction called sepsis. Sepsis is a medical emergency. What are the causes? This condition is caused by bacteria that get into the blood. Bacteria can enter the blood from an infection, including: A skin infection or injury, such as a burn or a cut. A lung infection (pneumonia). An infection in the stomach or intestines. An infection in the bladder or urinary system (urinary tract infection). A bacterial infection in another part of the body that spreads to the blood. Bacteria can also enter the blood during a dental or medical procedure, from bleeding gums, or through use of an unclean needle. What increases the risk? This condition is more likely to develop in children, older adults, and people who have: A long-term (chronic) disease or condition like diabetes or chronic kidney failure. An artificial joint or heart valve, or heart valve disease. A tube inserted to treat a medical condition, such as a urinary catheter or IV. A weak disease-fighting system (immune system). Injected illegal drugs. Been hospitalized for more than 10 days in a row. What are the signs or symptoms? Symptoms of this condition include: Fever and chills. Fast heartbeat and shortness of breath. Dizziness, weakness, and low blood pressure. Confusion or anxiety. Pain in the abdomen, nausea, vomiting, and diarrhea. Bacteremia that has spread to other parts of the body may cause symptoms in those areas. In some cases, there are no symptoms. How is this diagnosed? This condition may be diagnosed with a physical exam and tests, such as: Blood tests to check for bacteria or other signs of infection. Tests of any tubes that you have had inserted. These tests check for a source of infection. Urine tests to check for bacteria in the urine. Imaging tests, such as an X-ray, a CT scan, an MRI, or a heart ultrasound. These check for a sourceof infection in other parts of your body, such as your lungs, heart valves, or joints. How is this treated? This condition is usually treated in the hospital. If you are treated at home, you may need to return to the hospital for medicines, blood tests, and evaluation. Treatment may include: Antibiotic medicines. These may be given by mouth (orally) or directly into your blood through an IV. You may need antibiotics for several weeks. At first, you may be given an antibiotic to kill mosttypes of blood bacteria. If tests show that a certain kind of bacteria is causing the problem, you may be given a different antibiotic. IV fluids. Removing any catheter or device that could be a source of infection. Blood pressure and breathing support, if needed. Surgery to control the source or the spread of infection, such as surgery to remove an implanted device, abscess, or infected tissue. Follow these instructions at home: Medicines Take gtpv-mwn-jdfnjzm and prescription medicines only as told by your health care provider. If you were prescribed an antibiotic medicine, take it as told by your health care provider. Do notstop taking the antibiotic even if you start to feel better. General instructions Rest as told by your health care provider. Return to your normal activities as told by your health care provider. Ask your health care provider what activities are safe for you. Drink enough fluid to keep your urine pale yellow. Do not use any products that contain nicotine or tobacco. These products include cigarettes, chewing tobacco, and vaping devices, such as e-cigarettes. If you need help quitting, ask your health careprovider. Keep all follow-up visits. This is important. How is this prevented? Get vaccines as recommended by your health care provider. Take good care of your skin. This includes: ?Cleaning and covering any scrapes or cuts. ?Bathing regularly and moisturizing your skin often. Wash your hands regularly with soap and water for at least 20 seconds. If soap and water are not available, use hand biological science aide. You should wash your hands: ?After using the toilet or changing a diaper. ?Before preparing, cooking, serving, or eating food. ?While caring for a sick person or while visiting someone in a hospital. ?Before and after changing bandages (dressings) over wounds. Practice good mouth care (oral hygiene). Sunflower your teeth two times a day, and floss regularly. Contact a health care provider if: Your symptoms get worse, and medicines do not help. You have severe pain. Get help right away if you have: Chest pain or trouble breathing. A fever or chills. A fast heart rate. Skin that is blotchy, pale, or clammy. Confusion. Weakness, a lack of energy, or unusual sleepiness. New symptoms that develop after treatment has started. These symptoms may represent a serious problem that is an emergency. Do not wait to see if the symptoms will go away. Get medical help right away. Call your local emergency services (911 in the [place] Do not drive yourself to the hospital. Summary Bacteremia is the presence of bacteria in the blood. When bacteria enter the bloodstream, they can cause a life-threatening reaction called sepsis. Bacteremia is usually treated with antibiotic medicines in the hospital. If you were prescribed an antibiotic medicine, take it as told by your health care provider. Do notstop taking the antibiotic even if you start to feel better. Get help right away if you have any new symptoms that develop after treatment has started. This information is not intended to replace advice given to you by your health care provider. Make sure you discuss any questions you have with your health care provider. Document Revised: 06/02/2021 Document Reviewed: 06/02/2021 [employer] Patient Education 2022 [employer]. Follow Up Care 01/31/2023 14:43:11 With:HITESH PEDROZA MD Address: When:2 weeks Comments:Call for followup appointment With:KAMRON KNIGHT, AISHWARYA Rodriguez, [facility] Address: [address] [place] [address]- When:7 to 10 days Comments:Call for followup appointment [facility]11-22-2023 Evaluation + Plan noteExtracted from: Title:Progress Note * Author:Madeline Horta NP. Date:02/03/23 Impression and Plan 1. Acute on chronic hyponatremia. Baseline sodium unknown. Patient reports a history of hyponatremia has been managed by his electrician telephone with fluid restriction. This is possibly due to excessive free water intake. -Urine sodium high and urine osmoles inappropriately elevated on admission. I doubt patient has SIADH. -TSH, A.m. cortisol and ACTH unremarkable. -Continue fluid restriction of 1.5 L/day. -Sodium improving at appropriate rate and now 130. IV fluids stopped yesterday. We will sign of at this time. Instructed patient to follow up with his transplant electrician telephone. Please call if any questions. 2. Status post renal transplant in 2013 -Patient reports history of right nephrectomy in 2009, obstructive uropathy to left kidney causing ESRD and then renal transplant in 2012. He believes his baseline creatinine 0.9 to 1.1 mg/dL. Currently renal function at baseline -Recent changes to immunosuppression in light of recent bowel perforation requiring colostomy creation. Continue azathioprine 50 mg daily, tacrolimus 0.5 mg twice daily and prednisone 5 mg daily. 3. UTI -Urine culture gram-negative rods. Management and evaluation per primary team. -Awaiting midline placement and outpt atb set up then will discharge. Extracted from: Title:APSO Note Author:Melissa Cameron Date:02/02/23 1. UTI (urinary tract infect ion) (N39.0: Urinary tract infection, site not specified) Suspect CAUTI from recent hospitalization in an immunocompromised host Received a liter of IV fluid and Cipro in ED Did have bowers catheter within the last 3 weeks, was removed 11 days ago prior to hospital discharge -S/p Cipro 400 mg IV, converted to meropenem (02/01 - 02/02), ID selected ertapenem. (02/02 - 02/15) He will need full 14 day course. --> Plan for midline placement with intent to receive IV antibiotics at home --> Prescription provided to case management to assist with cost and approval prior to discharge -->Urine culture with >100,000 CFU of e coli, allergies noted for amoxicillin and cephalexin. -Appreciate recommendations from infectious disease. Ordered: [facility] Hospital Care/Day Moderate 35 Minutes [id number] 2. Bacteremia (R78.81: Bacteremia) Please see #1 Ordered: [facility] Hospital Care/Day Moderate 35 Minutes [id number] 3. 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 -TSH normal -Sodium 128 this a.m., continues to comply with fluid restrictions, we will discontinue IV fluid as per nephro recs Ordered: [facility] Hospital Care/Day Moderate 35 Minutes [id number] 4. BPH with urinary obstruction (N40.1: Benign prostatic hyperplasia with lower urinary tract symptoms) Monitor urinary output and bladder scan as needed post void not on medications for this 5. Kidney transplant recipient (Z94.0: Kidney transplant status) Kidney transplant 08/04/2012 Has had his medications changed recently secondary to bowel perforation. Dr Pedroza is his electrician telephone in [place] [phone] mentions he has approximately 1 week remaining of his tacrolimus. She does have name brand Prograf at home with same dosing, she was asked to bring this in as well. She does not have any refills of azathioprine, curious if able to reach out to electrician telephone for prescription refills. Tacro 0.5 mg twice daily Azothioprine 50 mg daily Prednisone 5 mg daily Recently removed from [employer] Bactrim DS daily for prophy 6. Diverticulitis (K57.92: Diverticulitis of intestine, part unspecified, without perforation or abscess without bleeding) Recent remote diverticular rupture with colon resection and colostomy placement. He was discharged from 11 days ago (01/20/23) He does still have his abdominal promise in place 7. Wound of buttock (S31.809A: Unspecified open wound of unspecified buttock, initial encounter) This was present on admission. He reports he received it from bed jeronimo use while inpatient from [facility] -Appreciate Wound therapy consult -Reposition at minimum every 2 hours. Tprotein normal and low albumin at 2.6 Consider nutrition consult Ordered: [facility] Hospital Care/Day Moderate 35 Minutes [id number] Orders: ertapenem, 1,000 mg = 1 EA, IV Piggyback, Daily, # 10 EA, Refills(s) 0 ACTH Automated Diff Basic Metabolic Panel CBC w/ Auto Diff Consult to Infectious Disease Physician Cortisol eGFR Extra SST Tube Morphology Occupational Therapy Additional Tx Occupational Therapy Evaluate Patient, Develop a Plan of Care and Implement Plan Physical Therapy Additional Tx Physical Therapy Evaluate Patient, Develop a Plan of Care and Implement Plan Referral to Resource Center Referral to Resource Center Extracted from: Title:Progress Note * Author:Madeline Horta NP Date:02/02/23 Impression and Plan 1. Acute on chronic hyponatremia. Baseline sodium unknown. Patient reports a history of hyponatremia has been managed by his electrician telephone with fluid restriction. This is possibly due to excessive free water intake. -Urine sodium high and urine osmoles inappropriately elevated on admission. I doubt patient has SIADH. -TSH unremarkable. A.m. cortisol and ACTH are pending at this time -We will place on fluid restriction of 1.5 L/day. -Sodium improving at appropriate rate and now 128. Will stop IV fluids. 2. Status post renal transplant in 2012 -Patient reports history of right nephrectomy in 2009, obstructive uropathy to left kidney causing ESRD and then renal transplant in 2012. He believes his baseline creatinine 0.9 to 1.1 mg/dL. Currently renal function at baseline -Recent changes to immunosuppression in light of recent bowel perforation requiring colostomy creation. Continue azathioprine 50 mg daily, tacrolimus 0.5 mg twice daily and prednisone 5 mg daily. 3. UTI -Urine culture gram-negative rods. Management and evaluation per primary team. Extracted from: Title:Infection Admission H&P * Author:Chao Kilgore M.D Date:02/02/23 Impression and Plan Diagnosis Presumptive E.coli bacteremia E.coli UTI h/o renal transplant. Course: Progressing as expected. Orders Patient's history of penicillin and cefazolin allergy limited on choices essentially so we will choose ertapenem for treatment duration. Midline to be placed. Patient to complete total 2 weeks given his immunosuppression of treatment. I switched him to ertapenem today. I ordered a midline. 1 blood culture does show positive staph species that is coagulase-negative which is likely contaminant. 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 Susceptibilities are back already on his urine did show susceptibilities.. Extracted from: Title:APSO Note Author:Melissa Cameron Date:02/01/23 1. UTI (urinary tract infect ion) (N39.0: Urinary tract infection, site not specified) Suspect CAUTI from recent hospitalization in an immunocompromised host Received a liter of IV fluid and Cipro in ED Did have bowers catheter within the last 3 weeks, was removed 11 days ago prior to hospital discharge -S/p Cipro 400 mg IV, converted to meropenem (02/01 - ) -->Urine culture with gram negative rods, allergies noted for amoxicillin and cephalexin. Discussed this antibiotic selection with ID physician Dr. Kilgore 2. 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 -TSH normal -Continue with NS @ 100 and evaluate BMP in am 3. BPH with urinary obstruction (N40.1: Benign prostatic hyperplasia with lower urinary tract symptoms) Monitor urinary output and bladder scan as needed post void not on medications for this 4. Kidney transplant recipient (Z94.0: Kidney transplant status) Kidney transplant 08/04/2012 Has had his medications changed recently Tacro 0.5 mg twice daily Azothioprine 50 mg daily Prednisone 5 mg daily Recently removed from [employer] Bactrim DS daily for prophy 5. Diverticulitis (K57.92: Diverticulitis of intestine, part unspecified, without perforation or abscess without bleeding) Recent remote diverticular rupture with colon resection and colostomy placement. He was discharged from 11 days ago (01/20/23) He does still have his abdominal promise in place 6. Wound of buttock (S31.809A: Unspecified open wound of unspecified buttock, initial encounter) This was present on admission. He reports he received it from bed jeronimo use while inpatient from [facility] -Appreciate Wound therapy consult -Reposition at minimum every 2 hours. Tprotein normal and low albumin at 2.6 Consider nutrition consult 2. Bacteremia (R78.81: Bacteremia) please see #1, reported 1/2 bottles of gram negative rods. This result prompted antibiotic change to meropenem from cipro Low threshold for ID consult, did speak directly with ID for antibiotic selection. Orders: magnesium oxide, 400 mg = 1 tab(s), Tab, Oral, Daily, Routine, Start date 02/02/23 9:00:00 EST, 02/01/23 14:20:00 EST meropenem + Sodium Chloride 0.9% intravenous solution 50 mL, 1,000 mg = 1 EA, Powder-Inj, IV Piggyback, q8hr, Routine, Start date 02/01/23 16:00:00 EST, 100 mL/hr, Infuse over 30 minute(s) polyethylene glycol 3350, 17 gm = 1 EA, Powder-Recon, Oral, Daily, Routine, Start date 02/02/23 9:00:00 EST, 02/01/23 14:21:00 EST predniSONE, 5 mg = 1 tab(s), Tab, Oral, Daily, Routine, Start date 02/02/23 9:00:00 EST predniSONE, 5 mg = 1 tab(s), Tab, Oral, Once, Stop date 02/01/23 15:00:00 EST, Routine, Start date 02/01/23 15:00:00 EST Sodium Chloride 0.9% intravenous solution 1,000 mL, 1,000 mL, IV, 100 mL/hr, Routine, Start date 02/01/23 8:46:00 EST, 10 hour(s), Total volume (mL): 1,000, 85.8 kg, 2.04, m2 ACTH Albumin Level Automated Diff Basic Metabolic Panel Blood Culture Charcoal Blood Culture Charcoal CBC w/ Auto Diff Consult to Nephrology Cortisol Dressing Care/Change eGFR Lactic Acid Morphology Path. Review Protein Total Referral to Resource Center TSH With T4fr Reflex Extracted from: Title:Nephrology consultation Author:Stefania Penaloza MD Date:02/01/23 Impression and Plan 1. Acute on chronic hyponatremia. Baseline sodium unknown. Patient reports a history of hyponatremia has been managed by his electrician telephone with fluid restriction. This is possibly due to excessive free water intake. -Urine sodium high and urine osmoles inappropriately elevated on admission. I doubt patient has SIADH. -TSH unremarkable. A.m. cortisol and ACTH are pending at this time -We will place on fluid restriction of 1.5 L/day. -Continue 0.9 normal saline at 100 mL/h 2. Status post renal transplant in 2012 -Patient reports history of right nephrectomy in 2009, obstructive uropathy to left kidney causing ESRD and then renal transplant in 2012. He believes his baseline creatinine 0.9 to 1.1 mg/dL. Currently renal function at baseline -Recent changes to immunosuppression in light of recent bowel perforation requiring colostomy creation. Continue azathioprine 50 mg daily, tacrolimus 0.5 mg twice daily and prednisone 5 mg daily. 3. UTI -Urine culture gram-negative rods. Management and evaluation per primary team. Extracted from: Title:ED Note Author:Aakash SULLIVAN, [place] Brock te:01/31/23 1. UTI (urinary tract infect ion) (N39.0: Urinary tract infection, site not specified) 2. Hyponatremia (E87.1: Hypo-osmolality and hyponatremia) 3. BPH with urinary obstruction (N40.1: Benign prostatic hyperplasia with lower urinary tract symptoms) 4. Kidney transplant recipient (Z94.0: Kidney transplant status) 5. Diverticulitis (K57.92: Diverticulitis of intestine, part unspecified, without perforation or abscess without bleeding) 6. Wound of buttock (S31.809A: Unspecified open wound of unspecified buttock, initial encounter) Other obstructive and reflux uropathy (N13.8: Other obstructive and reflux uropathy) Orders: ciprofloxacin + Dextrose 5% in Water intravenous solution 200 mL, 400 mg = 200 mL, IV Piggyback, Once, Stop date 01/31/23 16:37:00 EST, STAT, Start date 01/31/23 16:37:00 EST, 200 mL/hr, Infuse over 60 minute(s), 01/31/23 16:37:00 EST ondansetron, 4 mg = 2 mL, Injection, IV Push, Once, Stop date 01/31/23 15:13:00 EST, STAT, Start date 01/31/23 15:13:00 EST, 01/31/23 15:13:00 EST Sodium Chloride 0.9% intravenous solution, 1,000 mL, Soln-IV, IV, Once, Stop date 01/31/23 15:13:00 EST, STAT, Start date 01/31/23 15:13:00 EST, Infuse over 61, minute(s) ED Physician consult Hospitalist for continued care Diagnostic Tests Pending * Blood Culture Charcoal 02/03/23 * Blood Culture Charcoal 02/03/23 Future Scheduled Tests Laboratory* Tacrolimus Lvl 02/10/23 * CBC w/ Auto Diff 02/10/23 * Comprehensive Metabolic Panel 02/10/23 [facility]11-21-[facility]. Pt requires extensive assist w/ all adls/Iadls d/t decreasedstrength and debility. Inpatient OT services to follow daily to progress as able.[facility]11-20-2023 NoteOrder received, chart reviewed. Attempted PT evaluation x2 this date. Upon first attempt, pt. having his IV placed by nursing staff. Upon second attempt, pt. politely refuses despite max encouragement. Will attempt PT evaluation again tomorrow (02/02/23).[facility] 01-21-2023 Nurse Note* Angelika Francisco RN - 01/21/2023 5:40 PM EST Patient discharged home via [facility]. RN reviewed all paperwork with and patient prior to discharge. All medications and belongings sent home with . Left Upper Arm Midline removed prior to discharge, catheter intact. RN received okay from MD Sue that it was okay for patient to receive tacrolimus dose now prior to discharge due to over 1 hour ride home so patient would not miss a dose. [facility]11-09-2023 Nurse Note* Angelika Francisco RN - 01/21/2023 5:40 PM EST Patient discharged home via [facility]. RN reviewed all paperwork with and patient prior to discharge. All medications and belongings sent home with . Left Upper Arm Midline removed prior to discharge, catheter intact. RN received okay from MD Sue that it was okay for patient to receive tacrolimus dose now prior to discharge due to over 1 hour ride home so patient would not miss a dose. * Lizet Villar RN - 01/20/2023 6:16 PM EST Explained to patient he was medically clear for discharge. This RN expressed concerns of patient's mobility about going home. Explained the risks of not being able to ambulate and importance of ambulating. Explained the benefits of a SNF, but patient still refusing. Patient originally stated he wanted to be transported via car to his home (son to pick patient up).This RN explained to him the risks of getting him to the car and him getting from car to home. Patient stated he wanted to wait a day to get stronger before going home. This RN and 2 other team members sat patient at edge of bed and then helped patient to stand. Patient required very heavy assistance and was not able to stand on his own. Patient only tolerated standing for 30 seconds. Patient then stated there's no way just my son will be able to help me. Patient now agreeable to being transported to home via ambulance. He is also now agreeable to home health and home PT. Team aware. * Karime Grimm RN - 01/18/2023 9:42 PM EST Paged the team patient stating he is having a hard time breathing. Placed him on 3 L NC oxygen is at 99%. Gave patient incentive spirometer to use and sat him up more in bed. Will continue to monitorand the team will be to bedside to assess. * Richardson Canales RN - 01/17/2023 10:52 AM EST Attempted STAT blood draw without success. Notified charge and material control supervisor. As per Charge, phlebotomy department may or may not be able to show up today to assist with blood draws. Notified MD. * Richardson Canales RN - 01/16/2023 10:16 AM EDT Low urine output. MD notified. Order to remove and replace bowers in. Removed and replaced bowers using sterile technique. No complaints from patient during insertion. Small amount of urine output on insertion. Bladder scan showed 1135 mL. See MD orders. * Karime Grimm RN - 01/16/2023 6:50 AM EDT Called the team regarding patient having 900 in bladder per bladder scan even with bowers. Output was only 225 over night. Team asked me to flush it I flushed with 60 ml with minimal return but no resistance or clots noted. * Richardson Canales RN - 01/15/2023 2:24 PM EDT Patient arrived from OR to unit. Patient on hospital bed. Patient has 3 lap sites without excessivebleeding to abdomen and new ostomy in the LLQ. Patient complains of pain but is drowsy and sleeps on and off. Patient is pale in color and has generalized edema. Patient has dressing where A-line wasremoved in OR. Family at bedside. Patient is AAOx4 and experiencing generalized weakness. * Nick Mijares RN - 01/10/2023 4:00 AM EDT Patient arrived to floor from [facility] ED. CR Team arrived to room shortly to assess patient. No immediate surgical orders given. Patient rating pain 3 out of 10, based on a pain scale of 1- 10. documented in this [facility] Work Phone: 1(122) 419-548311-09-2023 Plan of care note* Care Plan - Angelika Francisco RN - 01/21/2023 3:49 PM EST The patient's goals for the shift include rest The clinical goals for the shift include patient will remain HDS with VS WNL by 1800 on 01/21/2023. Over the shift, the patient did not make progress toward the following goals. Barriers to progression include none. Recommendations to address these barriers include none. Patient was safe and injury free throughout shift. VS WNL. Patient being discharged home this evening. All goals met. Problem: Skin Goal: Decreased wound size/increased tissue granulation at next dressing change Outcome: Met Goal: Participates in plan/prevention/treatment measures Outcome: Met Goal: Prevent/manage excess moisture Outcome: Met Goal: Prevent/minimize sheer/friction injuries Outcome: Met Goal: Promote/optimize nutrition Outcome: Met Goal: Promote skin healing Outcome: Met Problem: Pain Goal: Takes deep breaths with improved pain control throughout the shift Outcome: Met Goal: Turns in bed with improved pain control throughout the shift Outcome: Met Goal: Walks with improved pain control throughout the shift Outcome: Met Goal: Performs ADL's with improved pain control throughout shift Outcome: Met Goal: Participates in PT with improved pain control throughout the shift Outcome: Met Goal: Free from opioid side effects throughout the shift Outcome: Met Goal: Free from acute confusion related to pain meds throughout the shift Outcome: Met Problem: Pain Goal: My pain/discomfort is manageable Outcome: Met Problem: Safety Goal: Patient will be injury free during hospitalization Outcome: Met Goal: I will remain free of falls Outcome: Met Problem: Daily Care Goal: Daily care needs are met Outcome: Met Problem: Psychosocial Needs Goal: Demonstrates ability to cope with hospitalization/illness Outcome: Met Goal: Collaborate with me, my family, and caregiver to identify my specific goals Outcome: Met Problem: Discharge Barriers Goal: My discharge needs are met Outcome: Met [facility] Work Phone: [phone]) 236-136211-09-2023 Miscellaneous Notes* Care Plan - Angelika Francisco RN - 01/21/2023 3:49 PM EST The patient's goals for the shift include rest The clinical goals for the shift include patient will remain HDS with VS WNL by 1800 on 01/21/2023. Over the shift, the patient did not make progress toward the following goals. Barriers to progression include none. Recommendations to address these barriers include none. Patient was safe and injury free throughout shift. VS WNL. Patient being discharged home this evening. All goals met. Problem: Skin Goal: Decreased wound size/increased tissue granulation at next dressing change Outcome: Met Goal: Participates in plan/prevention/treatment measures Outcome: Met Goal: Prevent/manage excess moisture Outcome: Met Goal: Prevent/minimize sheer/friction injuries Outcome: Met Goal: Promote/optimize nutrition Outcome: Met Goal: Promote skin healing Outcome: Met Problem: Pain Goal: Takes deep breaths with improved pain control throughout the shift Outcome: Met Goal: Turns in bed with improved pain control throughout the shift Outcome: Met Goal: Walks with improved pain control throughout the shift Outcome: Met Goal: Performs ADL's with improved pain control throughout shift Outcome: Met Goal: Participates in PT with improved pain control throughout the shift Outcome: Met Goal: Free from opioid side effects throughout the shift Outcome: Met Goal: Free from acute confusion related to pain meds throughout the shift Outcome: Met Problem: Pain Goal: My pain/discomfort is manageable Outcome: Met Problem: Safety Goal: Patient will be injury free during hospitalization Outcome: Met Goal: I will remain free of falls Outcome: Met Problem: Daily Care Goal: Daily care needs are met Outcome: Met Problem: Psychosocial Needs Goal: Demonstrates ability to cope with hospitalization/illness Outcome: Met Goal: Collaborate with me, my family, and caregiver to identify my specific goals Outcome: Met Problem: Discharge Barriers Goal: My discharge needs are met Outcome: Met * Care Plan - Karime Grimm RN - 01/19/2023 11:15 PM EST The patient's goals for the shift include rest The clinical goals for the shift include patient will have good airway exchange this shift * Documentation Clarification Note - Mery Jones MD - 01/19/2023 5:32 PM EST PATIENT: JAGRUTI ESPARZA : 1955 ADMIT DATE: 01/10/2023 4:06 AM DISCH DATE: RESPONDING PROVIDER #: [id number] PROVIDER RESPONSE TEXT: Moderate Protein Calorie Malnutrition CDI QUERY TEXT: [facility]_Nutrition Diagnosis Instruction: Based on your assessment of the patient and the clinical information, please provide the requested documentation by clicking on the appropriate radio button and enter any additional information if prompted. Question: Please further clarify this patient nutritional status as When answering this query, please exercise your independent professional judgment. The fact that a question is being asked, does not imply that any particular answer is desired or expected. The patient's clinical indicators include: Clinical Information: 67 year old male admitted with complicated diverticulitis. Clinical Indicators: - 01/14 Nutrition Assessment documents, Malnutrition Diagnosis: Moderate malnutrition related to acute disease or injury As Evidenced by: mild fat loss/ muscle wasting, mild fluid accumulation, inadequate energy intake (<75% for > 7 days) . - Per the Nutrition Focused Physical Exam Findings, Subcutaneous Fat Loss: Orbital Fat Pads: Mild-Moderate; Muscle Wasting: Temporalis, Pectoralis both Mild-Moderate. Edema: +2 mild, generalized Treatment: - Nutrition consult - RD recommends PO supplement but pt declines Risk Factors: - Admitted with perforated diverticulitis - Hx renal transplant, on immunosuppression Options provided: -- Moderate Protein Calorie Malnutrition -- Protein Calorie Malnutrition, Please specify severity -- Other - I will add my own diagnosis -- Refer to Clinical Documentation Reviewer Query created by: Yudith Valerio on 01/17/2023 5:40 PM Electronically signed by: MERY JONES MD 01/19/2023 5:32 PM * Care Plan - Karime Grimm RN - 01/19/2023 3:15 AM EST The patient's goals for the shift include rest The clinical goals for the shift include patient will have good airway exchange this shift * Care Plan - Karime Grimm RN - 01/18/2023 11:06 PM EST The patient's goals for the shift include rest The clinical goals for the shift include patient will have good urine output this shift * Care Plan - Karime Grimm RN - 01/17/2023 9:31 PM EST The patient's goals for the shift include rest The clinical goals for the shift include patient will have adequate output this shift * Care Plan - Karime Grimm RN - 01/17/2023 2:13 AM EST The patient's goals for the shift include rest The clinical goals for the shift include patient will have adequate output this shift * Care Plan - Karime Grimm RN - 01/16/2023 10:26 PM EDT The patient's goals for the shift include rest The clinical goals for the shift include patient will remain free from injury this shift * Care Plan - Karime Grimm RN - 01/16/2023 8:36 PM EDT The patient's goals for the shift include rest The clinical goals for the shift include patient will remain free from injury this shift * Care Plan - Karime Grimm RN - 01/16/2023 3:30 AM EDT The patient's goals for the shift include rest The clinical goals for the shift include patient will remain free from injury this shift * Care Plan - Karime Grimm RN - 01/16/2023 2:23 AM EDT The patient's goals for the shift include rest The clinical goals for the shift include Pt will be safe anf HD stable overnight * Significant Event - Mery Jones MD - 01/15/2023 4:09 PM EDT Colorectal Surgery Postoperative Check Jagruti Husain Vilma [phone] Assessment & Plan: 67 y.o. male who is POD 0 from Laparoscopic sigmoid resection with creation of end colostomy with Repair of umbilical hernia for diverticulitis. Neuro: Continue current pain regimen with oxy PRN and pain blocks by Acute pain service, IV dilaudid for breakthrough. Home ropinerol Resp: ICS Card: Continue diltiazem and flecainide, appreciate reccs from Dr. Hudson for perioperative optimization FEN: IVF @ LR 75 GI: CLD, protonix BID, ostomy nurse teaching (pt is refusing home care but has for support) /Renal: - Appreciate Transplant Nephrology recs - Daily AM tacrolimus level PRIOR to AM dose of tacrolimus - hold tac and cellcept - Continue prednisone - Bowers catheter MSK: PT Special - Continue lubricating eye drops PRN Heme/ID: AM labs Ppy: SQH, SCDs Dispo: Continue care on RNF. SUBJECTIVE Pain well controlled Nausea well controlled, has not vomited Ostomy pink and well perfused with scant blood in bag Voiding via bowers catheter - minimal yellow/red output Has not ambulated OBJECTIVE BP 169/68 (BP Location: Left arm, Patient Position: Lying) Pulse 76 Temp 36.7 C (98.1 F) (Temporal) Resp 18 Ht 1.753 m (5' 9 ) Wt 93 kg (205 lb) SpO2 98% BMI 30.27 kg/m Physical Exam: Gen: in no apparent distress, non-toxic, in no respiratory distress and acyanotic, alert, oriented to person, place, and time, afebrile, and with normal vitals Resp: has a normal respiratory effort Abd: Abdomen is soft, nontender, and nondistended. Laparoscopic incisions Skin: Warm and dry Mery Jones MD Pager [phone] * Op Note - Arslan Vasquez MD - 01/15/2023 8:48 AM EDT Resection Laparoscopy Large Intestine Operative Note Date: 01/10/2023 - 01/15/2023 OR Location: [facility] OR Name: Jagruti Esparza, : 1955, Age: 67 y.o., , Sex: male Diagnosis Pre-op Diagnosis * Diverticulitis [K57.92] Post-op Diagnosis * Diverticulitis [K57.92] Procedures Laparoscopic Sigmoid resection with creation of End colostomy Repair of periumbilical hernia. Surgeons * Arslan Vasquez - Primary Resident/Fellow/Other Waste/Materials Exchange Specialist: Surgeon(s) and Role: * Marc Alba MD - Resident - Assisting Procedure Summary Anesthesia: General ASA: III Anesthesia Staff: Anesthesiologist: Emeka Leslie MD C-AA: ALBERTINA Mendez; ALBERTINA Blount Estimated Blood Loss: 75mL Intra-op Medications: Medication Name Total Dose BUPivacaine HCl (Marcaine) 0.5 % (5 mg/mL) injection 9 mL dilTIAZem CD (Cardizem CD) 24 hr capsule 180 mg 180 mg enoxaparin (Lovenox) syringe 40 mg Cannot be calculated emhljadxafse-sfimkhtzlv-dgkvveey (Zosyn) IV 3.375 g 50 mL heparin (porcine) injection 5,000 Units 5,000 Units Anesthesia Record Intraprocedure I/O Totals Intake Ketamine 0.00 mL The total shown is the total volume documented since Anesthesia Start was filed. NaCl 0.9 % 300.00 mL Propofol Drip 0.00 mL The total shown is the total volume documented since Anesthesia Start was filed. Total Intake 300 mL Output Urine 295 mL Total Output 295 mL Net Net Volume 5 mL Specimen: ID Type Source Tests Collected by Time 1 : HERNIA SAC Tissue HERNIA SAC SURGICAL PATHOLOGY EXAM Arslan Vasquez MD 01/15/2023 0858 2 : SIGMOID COLON Tissue COLON - SIGMOID RESECTION SURGICAL PATHOLOGY EXAM Arslan Vasquez MD 01/15/2023 1105 Staff: Filler In: Hazel Hsu RN; Pradip Prabhakar RN Scrub Person: Samantha Swan; Vanita Figueredo Drains and/or Catheters: Closed/Suction Drain Left LLQ Other (Comment) 8 Fr. (Active) Site Description Other (Comment) 01/15/23 0233 Dressing Status Clean;Dry 01/15/23 0233 Drainage Appearance [place] tinged 01/12/23 0800 Status Open to gravity drainage 01/12/23 0800 Output (mL) 0 mL 01/14/23 2233 Intake (ml) 10 ml 01/14/23 1005 Colostomy Other LLQ (Active) Stomal Appliance 1 piece;Clean;Dry;Intact 01/15/23 1124 Peristomal Assessment Clean 01/15/23 1124 Treatment Other (Comment) 01/15/23 1124 Urethral Catheter Non-latex 16 Fr. (Active) Tourniquet Times: N/A Implants: N/A Findings: Plegmon noted in the mid abdomen with mid transverse colon small bowel loops and diseasedsigmoid performing collection. Very inflamed sigmoid colon. Indications: Jagruti Esparza is an 67 y.o. male who is having surgery for Diverticulitis [K57.92]. The patient was seen in the preoperative area. The risks, benefits, complications, treatment options, non-operative alternatives, expected recovery and outcomes were discussed with the patient. The possibilities of reaction to medication, pulmonary aspiration, injury to surrounding structures, bleeding, recurrent infection, the need for additional procedures, failure to diagnose a condition, and creating a complication requiring transfusion or operation were discussed with the patient. The patient concurred with the proposed plan, giving informed consent. The site of surgery was properly noted/marked if necessary per policy. The patient has been actively warmed in preoperative area. Preopera tive antibiotics have been ordered and given within 2 hours of incision. Venous thrombosis prophylaxis have been ordered including bilateral sequential compression devices and chemical prophylaxis Procedure Details: Patient was admitted to the operating room and placed supine on the operating table anesthesia was induced a Bowers catheter was placed his abdomen was shaved. His existing left midabdomen drain was cut off about 5 cm above the abdominal wall. The abdomen was then prepped and draped in a sterile fashion. A 3 cm incision was made in the periumbilical area. There was a noted umbilical hernia with hernia sac noted once into the subcutaneous tissues. The sac was dissected off thesurrounding subcutaneous fat and of the umbilicus. the hernia was then transected after the sac wasopened. Hernia sac was sent off as a pathology specimen. The defect in the fascia was identified and opened superiorly and inferiorly getting us access to the abdomen. An [place] small wound protectorwas then placed along with the airtight. A 12 mm trocar was then introduced through the And a 10 mm30 degree scope was introduced into the abdominal cavity inspection of the abdomen revealed a phlegmon noted on the abdominal wall with multiple loops of bowel surrounding this. It appeared that the mid transverse colon was draped down into this region along with the sigmoid colon omentum and smallbowel. 2 other ports were then placed both of which were 5 mm each and placed under direct vision. First 1 is in the right lower quadrant the other was in the right upper quadrant using a combinationof blunt and LigaSure dissection we were able to separate the transverse colon and the small bowel away from the phlegmonous changes created by the diseased sigmoid colon. There were multiple inflammatory adhesions that were from each other the transverse colon was then placed into the upper abdomen. We then turned attention to the dissecting the sigmoid colon off the pelvic sidewall. We did a lateral to medial dissection. the distal sigmoid appeared to be healthy. An aperture was created in the mesentery and an Endo CHAR 60 blue load stapler was applied across distal sigmoid. Required 2 firings of the stapler to completely transect the sigmoid colon. We continued with medialization of the sigmoid colon along with the descending colon. Dissection was taken up to the level of the splenic flexure. We did not do a mobilization of the splenic flexure. Once we had appropriate mobilization of the descending colon and sigmoid colon we utilized the LigaSure instrument to take the mesentery leading to the sigmoid colon. Some portions of the mesentery was inflamed and indurated however we were able to successfully transect this all the way up to the distal descending colon. We did not identify the ureter on the left side as the patient had a nonfunctional atrophic kidney. Upon completion of the colon mobilization, an aperture was created in the left upper quadrant and the previously marked site that would function as the stoma site. In doing so a disc of skin was removed and subcutaneous fat was the rectus fascia was identified and opened vertically the rectus abdominis muscle was split and the posterior sheath of the rectus abdominal was then opened vertically we then removed all of the laparoscopic ports including the midline port site and were able to extrac orporealized the disease bowel and an area that was soft and healthy the bowel was then transected along with its mesentery. There was good bleeding coming from the edges of the bowel. The bowel was then pulled through the abdominal wall at the stoma site and left to be matured. Patient's abdomen was then closed using a #1 none loop PDS stitch in [id number] fashion. The other port sites was stapled closed. The ostomy was matured using 3-0 chromic stitches. Complications: None; patient tolerated the procedure well. Disposition: PACU - hemodynamically stable. Condition: stable This procedure was not performed to treat colon cancer through resection Additional Details: n/a Attending Attestation: I was present and scrubbed for the entire procedure. Arslan Vasquez * Care Plan - Ekaterina Barroso RN - 01/14/2023 11:04 AM EDT Problem: Skin Goal: Decreased wound size/increased tissue granulation at next dressing change Outcome: Progressing Goal: Participates in plan/prevention/treatment measures Outcome: Progressing Goal: Prevent/manage excess moisture Outcome: Progressing Goal: Prevent/minimize sheer/friction injuries Outcome: Progressing Goal: Promote/optimize nutrition Outcome: Progressing Goal: Promote skin healing Outcome: Progressing Problem: Pain Goal: Turns in bed with improved pain control throughout the shift Outcome: Progressing Goal: Walks with improved pain control throughout the shift Outcome: Progressing Goal: Performs ADL's with improved pain control throughout shift Outcome: Progressing Goal: Participates in PT with improved pain control throughout the shift Outcome: Progressing Goal: Free from opioid side effects throughout the shift Outcome: Progressing Goal: Free from acute confusion related to pain meds throughout the shift Outcome: Progressing Problem: Fall/Injury Goal: Not fall by end of shift Outcome: Met Goal: Be free from injury by end of the shift Outcome: Met Goal: Verbalize understanding of personal risk factors for fall in the hospital Outcome: Met Goal: Verbalize understanding of risk factor reduction measures to prevent injury from fall in the home Outcome: Met Goal: Use assistive devices by end of the shift Outcome: Met Goal: Pace activities to prevent fatigue by end of the shift Outcome: Met Problem: Pain Goal: My pain/discomfort is manageable Outcome: Progressing Problem: Daily Care Goal: Daily care needs are met Outcome: Progressing Problem: Psychosocial Needs Goal: Demonstrates ability to cope with hospitalization/illness Outcome: Progressing Goal: Collaborate with me, my family, and caregiver to identify my specific goals Outcome: Progressing The patient's goals for the shift include rest The clinical goals for the shift include Pt will continue to have good pain management A/O x4, VSS, room air, NSR on tele. at bedside who assists in care. Patient has adequate pain management with PRN as ordered. LLQ IR drain flushed Qshift, monitored output. All needs met, WCTM. * Care Plan - Yogi Meier RN - 01/12/2023 6:44 PM EDT The patient's goals for the shift include rest The clinical goals for the shift include Pt will be HD stable overnight Over the shift, the patient did not make progress toward the following goals. Barriers to progression include. Recommendations to address these barriers include. * Care Plan - Jessica Cabrera RN - 01/11/2023 1:50 PM EDT The patient's goals for the shift include Rest and Comfort The clinical goals for the shift include Pt will be HD stable and safe overnight Over the shift, the patient did not make progress toward the following goals. Barriers to progression include anxiety over medications. Recommendations to address these barriers include education regarding medication administration. * Post-Procedure Note - Pa Blackwell MD - 01/11/2023 10:46 AM EDT Interventional Radiology Brief Postprocedure Note Attending: Dr. Chris Farrell Waste/Materials Exchange Specialist: Dr. Pa Blackwell Diagnosis: Diverticulitis with abscess formation Description of procedure: Patient was brought to the procedure area. Limited CT diagnostic scanningof the abdomen was performed, which demonstrated a multiloculated complex fluid collection in the left lower quadrant Subsequently the patient was prepped and draped in the usual sterile manner. Lidocaine was administered for local analgesia. Subsequently with a 5F Yueh, the fluid collection was accessed under CT guidance. The inner stylet was removed and a Garcia wire was advanced into the fluidcollection. A pigtail skater drain was subsequently placed. Fluid was aspirated for microbiology. Patient tolerated the procedure. Anesthesia: Local Complications: None Estimated Blood Loss: minimal Medications As of 01/11/23 1046 lactated Ringer's infusion (mL/hr) Total volume: 1,336.67 mL* *From user-documented volume Date/Time Rate/Dose/Volume Action 01/10/23 0648 50 mL/hr New Bag 1000 50 mL/hr - 200 mL Rate Verify 1345 50 mL/hr - 187.5 mL Rate Verify 1701 50 mL/hr - 150 mL Rate Verify 2150 50 mL/hr Rate Verify 01/11/23 0000 349.17 mL 0600 300 mL 0657 50 mL/hr Rate Verify 0900 50 mL/hr - 150 mL Rate Verify kogbpdgcnjlh-wxbntumgxn-djnqvkyr (Zosyn) IV 3.375 g (g) Total dose: Cannot be calculated* *Administration dose not documented Date/Time Rate/Dose/Volume Action 01/10/23 Canceled Entry vvlatunovstf-opdcfmviba-hnvmormh (Zosyn) IV 3.375 g (mL/hr) Total dose: 16.88 g* *From user-documented volume Date/Time Rate/Dose/Volume Action 01/10/23 0445 3.375 g - 100 mL/hr (over 30 min) New Bag 0515 50 mL Stopped 1057 3.375 g - 100 mL/hr (over 30 min) - 50 mL New Bag 1127 (over 30 min) Stopped 1631 3.375 g - 100 mL/hr (over 30 min) New Bag 1701 (over 30 min) Stopped 2200 3.375 g - 100 mL/hr (over 30 min) New Bag 2230 (over 30 min) Stopped 01/11/23 0443 3.375 g - 100 mL/hr (over 30 min) - 150 mL New Bag 0513 (over 30 min) Stopped enoxaparin (Lovenox) syringe 40 mg (mg) Total dose: 40 mg Dosing weight: 94.8 Date/Time Rate/Dose/Volume Action 01/10/232150 40 mg Given 01/11/23 0901 *Not included in total Held by provider dilTIAZem XR (Dilacor XR) 24 hr capsule 180 mg (mg) Total dose: 180 mg Dosing weight: 94.8 Date/Time Rate/Dose/Volume Action 01/10/23 1100 180 mg Given pantoprazole (ProtoNix) EC tablet 20 mg (mg) Total dose: 60 mg Dosing weight: 94.8 Date/Time Rate/Dose/Volume Action 01/10/23 1213 20 mg Given 215 20 mg Given 01/11/23 0807 20 mg Given rOPINIRole (Requip) tablet 1 mg (mg) Total dose: 1 mg Dosing weight: 94.8 Date/Time Rate/Dose/Volume Action 01/10/23 2155 1 mg Given tacrolimus (Prograf) capsule 1.5 mg (mg) Total volume: Not documented* Dosing weight: 94.8 *Total volume has not been documented. View each administration to see the amount administered. Date/Time Rate/Dose/Volume Action 01/10/23 1815 1.5 mg Given 01/11/23 0806 1.5 mg Given predniSONE (Deltasone) tablet 5 mg (mg) Total dose: 10 mg Dosing weight: 94.8 Date/Time Rate/Dose/Volume Action 01/10/23 1515 5 mg Given 01/11/23 0807 5 mg Given flecainide (Tambocor) tablet 50 mg (mg) Total dose: 100 mg Dosing weight: 94.8 Date/Time Rate/Dose/Volume Action 01/10/23 1815 50 mg Given 01/11/23 0202 50 mg Given fentaNYL PF (Sublimaze) injection (mcg) Total dose: 50 mcg Date/Time Rate/Dose/Volume Action 01/11/23 1027 50 mcg Given midazolam (Versed) injection (mg) Total dose: 1 mg Date/Time Rate/Dose/Volume Action 01/11/23 1027 1 mg Given A 8ml specimen of purulent fluid was collected and sent to pathology. See detailed result report with images in PACS. The patient tolerated the procedure well without incident or complication and is in stable condition. * Pre-Procedure Note - Pa Blackwell MD - 01/11/2023 9:34 AM EDT Interventional Radiology Preprocedure Note Indication for procedure: The encounter diagnosis was Diverticulitis. Relevant review of systems: NA Relevant Labs: Lab Results Component Value Date CREATININE 0.82 01/11/2023 EGFR >90 01/11/2023 INR 1.2 (H) 01/10/2023 PROTIME 13.0 (H) 01/10/2023 Planned Sedation/Anesthesia: Moderate Airway assessment: normal Directed physical examination: Patient is alert and oriented x3. Skin overlying the biopsy site appears intact. Mallampati: III (soft and hard palate and base of uvula visible) ASA Score: ASA 3 - Patient with moderate systemic disease with functional limitations Benefits, risks and alternatives of procedure and planned sedation have been discussed with the patient and/or their direct marketing representative. All questions answered and they agree to proceed. * Care Plan - Jessica Cabrera RN - 01/10/2023 1:40 PM EDT The patient's goals for the shift include Rest and Comfort The clinical goals for the shift include ABX Therapy Over the shift, the patient did not make progress toward the following goals. Barriers to progression include anxiety for plan of care. Recommendations to address these barriers include education in regards to plan of care. * Care Plan - Nick Mijares RN - 01/10/2023 8:34 AM EDT Problem: Skin Goal: Decreased wound size/increased tissue granulation at next dressing change Outcome: Progressing Goal: Participates in plan/prevention/treatment measures Outcome: Progressing Goal: Prevent/manage excess moisture Outcome: Progressing Goal: Prevent/minimize sheer/friction injuries Outcome: Progressing Goal: Promote/optimize nutrition Outcome: Progressing Goal: Promote skin healing Outcome: Progressing Problem: Pain Goal: Takes deep breaths with improved pain control throughout the shift Outcome: Progressing Goal: Turns in bed with improved pain control throughout the shift Outcome: Progressing Goal: Walks with improved pain control throughout the shift Outcome: Progressing Goal: Performs ADL's with improved pain control throughout shift Outcome: Progressing Goal: Participates in PT with improved pain control throughout the shift Outcome: Progressing Goal: Free from opioid side effects throughout the shift Outcome: Progressing Goal: Free from acute confusion related to pain meds throughout the shift Outcome: Progressing Problem: Fall/Injury Goal: Not fall by end of shift Outcome: Progressing Goal: Be free from injury by end of the shift Outcome: Progressing Goal: Verbalize understanding of personal risk factors for fall in the hospital Outcome: Progressing Goal: Verbalize understanding of risk factor reduction measures to prevent injury from fall in the home Outcome: Progressing Goal: Use assistive devices by end of the shift Outcome: Progressing Goal: Pace activities to prevent fatigue by end of the shift Outcome: Progressing Problem: Pain Goal: My pain/discomfort is manageable Outcome: Progressing Problem: Safety Goal: Patient will be injury free during hospitalization Outcome: Progressing Goal: I will remain free of falls Outcome: Progressing Problem: Daily Care Goal: Daily care needs are met Outcome: Progressing Problem: Psychosocial Needs Goal: Demonstrates ability to cope with hospitalization/illness Outcome: Progressing Goal: Collaborate with me, my family, and caregiver to identify my specific goals Outcome: Progressing Flowsheets (Taken 01/10/2023 0689) Cultural Requests During Hospitalization: None Spiritual Requests During Hospitalization: None Problem: Discharge Barriers Goal: My discharge needs are met Outcome: Progressing The patient's goals for the shift include The clinical goals for the shift include Over the shift, the patient did not make progress toward the following goals. Barriers to progression include pain. Recommendations to address these barriers include MD [facility]. [facility] [phone]) 130-379511-08-2023 Nurse Note* Lizet Villar RN - 01/20/2023 6:16 PM EST Explained to patient he was medically clear for discharge. This RN expressed concerns of patient's mobility about going home. Explained the risks of not being able to ambulate and importance of ambulating. Explained the benefits of a SNF, but patient still refusing. Patient originally stated he wanted to be transported via car to his home (son to pick patient up).This RN explained to him the risks of getting him to the car and him getting from car to home. Patient stated he wanted to wait a day to get stronger before going home. This RN and 2 other team members sat patient at edge of bed and then helped patient to stand. Patient required very heavy assistance and was not able to stand on his own. Patient only tolerated standing for 30 seconds. Patient then stated there's no way just my son will be able to help me. Patient now agreeable to being transported to home via ambulance. He is also now agreeable to home health and home PT. Team aware. [facility] History of Present illness Narrative * Zayra Lerner RN - 01/20/2023 4:33 PM EST Jagruti Esparza is a 67 y.o. male on day 10 of admission presenting with Diverticulitis. Spoke with patient and his this morning about discharge needs. They understand that PT/OT rec moderate intensity for long term facility. They do not want to go to one. They are agreeable to home health. Accepting agency- [facility]. They are aware of his needs for PT/OT, and RN for ostomy care. Orders sent. Patient states that he has a walker, cane, shower chair, ramp into the house, and a power chair wheelchair at home. His is there to help him with ADL's. He is very worried about people coming into his house, as he wants them to wear a mask due to his previous kidney transplant and does not want to get sick, which is his main reason for not wanting to go to a SNF. Plan is to discharge patient home tomorrow. Will continue to follow patient for any discharge needs. ZAYRA LERNER RN TCC * Nhi Valiente RN - 01/20/2023 3:50 PM EST Wound Care Progress Note Visit Date: 01/20/2023 Patient Name: Jagruti Esparza Reason for Visit: colostomy education Wound History: POD # 5 from colostomy creation Pertinent Labs: Albumin Date Value Ref Range Status 01/20/2023 2.5 (L) 3.4 - 5.0 g/dL Final Colostomy Other LLQ (Active) Placement Date/Time: 01/15/23 1124 Placed by: MD Pedro Hand Hygiene Completed: Yes Colostomy Type: (c) Other Location: LLQ Stoma Size (cm): 4.5 cm Number of days: 5 Colostomy Other LLQ (Active) Stomal Appliance 1 piece;Changed 01/20/23 1305 Site/Stoma Assessment Dark edges;Red 01/20/23 1305 Peristomal Assessment Clean;[place] 01/20/23 1305 Treatment Pouch change 01/20/23 1305 Drainage Characteristics Brown 01/20/23 1305 Output (mL) 0 mL 01/20/23 1308 Wound Team Summary Assessment: Patient's prepared supplies and did entire pouch change with little prompting from author. Per patient, they stated they may consider home care nurse to come to help with ostomy. Discussed how supplies are obtained if they have home care nurse come. WO next scheduled visit/plan: tomorrow if still inpatient Stoma Type: End Colostomy George: No Diameter: 1 1/2 in Location: LLQ Protrusion: Budded Mucosal Condition and Color: Moist, Red, Edematous Mucocutaneous Junction: Intact Peristomal Skin: blistering and skin tear along distal edge where old tape was, powder and cavilon no sting skin barrier film applied Location of Skin Impairment: 3 o clock, 6 o clock Peristomal Contour: Rounded Supportive Tissue: Firm Character of Output: brown thick stool Removed/Current Pouching System: One piece [place] drainable pouch with a ring. Recommendations: Skin Care: Stomahesive powder and Cavilon no sting skin barrier film Pouching System: 1 piece [place] flat drainable pouch with a ring. Wound Team Plan: Lesson tomorrow with and patient prior to discharge. Nhi Valiente, MSN, RN, CWCN, COCN 01/20/2023 3:50 PM * Robert Mcdonnell OT - 01/20/2023 11:15 AM EST Occupational Therapy Evaluation/Treatment Patient Name: Jagruti Esparza : 1955 Today's Date: 01/20/23 Time Calculation Start Time: 905 Stop Time: 931 Time Calculation (min): 26 min Assessment: OT Assessment: Pt limited by deficits in functional strength, activity tolerance, and balance. Requires caregiver assistance for all ADls Prognosis: Fair Evaluation/Treatment Tolerance: Patient limited by fatigue, Patient limited by pain Medical Staff Made Aware: Yes End of Session Communication: Bedside nurse End of Session Patient Position: Bed, 3 rail up, Alarm on (Bed in partial chair position to promoteupright tolerance, all four extremities propped on pillows) OT Assessment Results: Decreased ADL status, Decreased upper extremity strength, Decreased upper extremity range of motion, Decreased safe judgment during ADL, Decreased endurance, Decreased functional mobility, Decreased IADLs Prognosis: Fair Evaluation/Treatment Tolerance: Patient limited by fatigue, Patient limited by pain Medical Staff Made Aware: Yes Strengths: Support of Caregivers Barriers to Participation: Comorbidities, Capable of completing ADLs semi/independent Plan: Treatment Interventions: ADL retraining, Functional transfer training, UE strengthening/ROM, Endurance training, Patient/family training, Equipment evaluation/education, Fine motor coordination activities OT Frequency: 3 times per week OT Discharge Recommendations: Moderate intensity level of continued care OT Recommended Transfer Status: Maximum assist, Assist of 2 OT - OK to Discharge: Yes Treatment Interventions: ADL retraining, Functional transfer training, UE strengthening/ROM, Endurance training, Patient/family training, Equipment evaluation/education, Fine motor coordination activities Subjective Current Problem: 1. Diverticulitis Case Request Operating Room: Resection Laparoscopy Large Intestine Case Request Operating Room: Resection Laparoscopy Large Intestine Surgical Pathology Exam Surgical Pathology Exam 2. Urinary retention CANCELED: Vascular US renal artery duplex transplant CANCELED: Vascular US renal artery duplex transplant 3. Encounter for aftercare following kidney transplant CANCELED: Vascular US renal artery duplex transplant CANCELED: Vascular US renal artery duplex transplant 4. Kidney transplant status US kidney transplant US kidney transplant CANCELED: Renal artery duplex transplant CANCELED: Renal artery duplex transplant CANCELED: Vascular US renal artery duplex transplant CANCELED: Vascular US renal artery duplex transplant CANCELED: US kidney transplant CANCELED: US kidney transplant General: General Reason for Referral: Pt. transferred from [facility] ED with CT A/P evidence of mid-transverse colon thickening, complicated diverticulitis, and a pericolonic abscess. S/p IR drain in left lower quadrant on 01/11. Now s/p Laparoscopic sigmoid resection with creation of end colostomy with repair ofumbilical hernia for diverticulitis on 01/15 Past Medical History Relevant to Rehab: prior kidney transplant (08/04/12), atrial flutter (on flecainide and diltiazem), HTN, and obesity Family/Caregiver Present: Yes Caregiver Feedback: Spouse, supportive Co-Treatment: PT Co-Treatment Reason: To maximize theraeutic potential and pt. safety. Pt. with AMPAC </= 10 Prior to Session Communication: Bedside nurse Patient Position Received: Bed, 3 rail up, Alarm off, not on at start of session Preferred Learning Style: verbal, visual General Comment: Pt. received supine in bed, reports has been performing supine ther ex throughout the day. Pt. was agreeable to participate in session wih encouragement Precautions: Medical Precautions: Fall precautions, Abdominal precautions Post-Surgical Precautions: Abdominal surgery precautions Pain: Pain Assessment Pain Assessment: 0-10 Pain Score: 2 Pain Type: Acute pain Pain Location: Abdomen Pain Orientation: Left Pain Frequency: Constant/continuous Objective Cognition: Overall Cognitive Status: Within Functional Limits Orientation Level: Oriented X4 Home Living: Type of Home: House Lives With: Spouse Home Adaptive Equipment: Cane, Wheelchair-manual Home Layout: Able to live on main level with bedroom/bathroom Home Access: Ramped entrance Bathroom Shower/Tub: Walk-in shower Bathroom Toilet: Standard Bathroom Equipment: Grab bars in shower, Shower chair with back, Raised toilet seat without rails Prior Function: Level of [place]: Needs assistance with functional transfers, Needs assistance with ADLs Receives Help From: Family ADL Assistance: Needs assistance Bath: Moderate Toileting: Moderate Dressing: Moderate Grooming: Minimal Homemaking Assistance: Needs assistance Laundry: Total Ambulatory Assistance: Needs assistance Transfers: Assistive device (Pt. reports needs physical assist for transfers) IADL History: Homemaking Responsibilities: No Mode of Transportation: Family Leisure and Hobbies: Watching TV IADL Comments: assists with all ADLs/IADLs ADL: Eating Assistance: Independent (Anticipated) Grooming Assistance: Moderate (Anticipated) Bathing Assistance: Maximal Bathing Deficit: Steadying, Increased time to complete , Left arm, Right arm, Chest, Perineal area,Buttocks, Right upper leg, Left upper leg, Left lower leg including foot, Right lower leg includingfoot UE Dressing Assistance: Moderate UE Dressing Deficit: Steadying, Pull around back, Pull down in back, Increased time to complete LE Dressing Assistance: Maximal (Anticipated) Toileting Assistance with Device: Maximal (Anticipated) Activities of Daily Living: UE Bathing UE Bathing Level of Assistance: Maximum assistance, Moderate verbal cues UE Bathing Comments: Denies engaging despite several cues and encouragement - partially washes UEs UE Dressing UE Dressing Level of Assistance: Maximum assistance UE Dressing Comments: Pt with limited engagement in UE dressing - requests help prior to encouragement to engage. Education provided on importance of increasing participation in tasks for improved IND. Activity Tolerance: Endurance: Tolerates 10 - 20 min exercise with multiple rests Activity Tolerance Comments: Increased encouragement throughout session. Pt. tolerated EOB sitting ~15 min and sit<>stand transfers 2x this date. Bed Mobility/Transfers: Bed Mobility Bed Mobility: Yes Bed Mobility 1 Bed Mobility 1: Supine to sitting Level of Assistance 1: Maximum assistance, Maximum verbal cues (x2) Bed Mobility Comments 1: Assist with moving LEs towards EOB with assist to flex trunk while adhering to abdominal precautions Bed Mobility 2 Bed Mobility 2: Sitting to supine Level of Assistance 2: Maximum verbal cues, Maximum assistance (x2) Bed Mobility Comments 2: Assist with trunk and LEs, cueing to reach with UEs to engage in transfer Bed Mobility 3 Bed Mobility 3: Scooting Level of Assistance 3: Dependent (x2) Transfers Transfer: Yes Transfer 1 Transfer From 1: Bed to Transfer to 1: Stand Technique 1: Sit to stand Transfer Level of Assistance 1: Moderate assistance, Maximum verbal cues (x2) Trials/Comments 1: Two trials completed with extended rest break between, elevated bed height, cueing to push up through UEs and improve standing posture to achieve upright standing - education provided on diaphragmatic breathing and other energy conservation strategies to increase participation and success in task. Transfers 2 Transfer From 2: Stand to Transfer to 2: Bed Technique 2: Stand to sit Transfer Level of Assistance 2: Moderate assistance, Maximum verbal cues Trials/Comments 2: x2, encouragement provided throughout for improved engagement Therapy/Activity: Therapeutic Activity Therapeutic Activity Performed: Yes Therapeutic Activity 1: Sitting EOB and static standing tasks to increase balance and activity tolerance for improved IND in both seated and standing ADL taks. Education provided for improving positioning/posture to maximize safety/success in task. Pt responds well to activity with Mod/Max cueing and encouragement throughout. Pt reports I cannot do this despite being able to complete tasks withextended rest breaks. Vision:Vision - Basic Assessment Current Vision: Does not wear glasses Sensation: Light Touch: No apparent deficits Strength: Strength Comments: 4-/5 grossly Perception: Inattention/Neglect: Appears intact Coordination: Movements are Fluid and Coordinated: Yes Hand Function: Hand Function Gross Grasp: Functional Coordination: Functional Extremities: RUE RUE : Exceptions to WFL RUE AROM (degrees) R Shoulder Flexion 0-170: 90 Degrees R Elbow Flexion/Extension 0-135-150: 135 RUE PROM (degrees) RUE PROM Comment: 170 RUE Strength RUE Overall Strength: Greater than or equal to 3/5 as evidenced by functional mobility, Deficits R Shoulder Flexion: 3+/5 R Elbow Flexion: 4-/5 R Elbow Extension: 4-/5 and LUE LUE: Exceptions to WFL LUE AROM (degrees) L Shoulder Flexion 0-170: 90 Degrees L Elbow Flexion/Extension 0-135-150: 135 LUE PROM (degrees) L Shoulder Flexion 0-170: 170 Degrees LUE Strength LUE Overall Strength: Greater than or equal to 3/5 as evidenced by functional mobility L Shoulder Flexion: 3+/5 L Elbow Flexion: 4-/5 Outcome Measures: [facility] Daily Activity Putting on and taking off regular lower body clothing: Total Bathing (including washing, rinsing, drying): Total Putting on and taking off regular upper body clothing: A lot Toileting, which includes using toilet, bedpan or urinal: Total Taking care of personal grooming such as brushing teeth: A lot Eating Meals: A little Daily Activity - Total Score: 10 and Brief Confusion Assessment Method (bCAM) Feature 1: Altered Mental Status or Fluctuating Course: No CAM Result: CAM - Goals: Encounter Problems Encounter Problems (Active) ADLs Patient with complete upper body dressing with stand by assist level of assistance donning and doffing UB clothing item while edge of bed (Progressing) Start: 01/20/23 Expected End: 02/10/23 Patient will complete daily grooming tasks grooming task with set-up and stand by assist level of assistance and PRN adaptive equipment while edge of bed . (Progressing) Start: 01/20/23 Expected End: 02/10/23 BALANCE Patient will tolerate standing for 10 minutes to minimal assist level of assistance with least restrictive device in order to improve functional activity tolerance for ADL tasks. (Progressing) Start: 01/20/23 Expected End: 02/10/23 EXERCISE/STRENGTHENING Patient with increase BUE to 4/5 strength. (Progressing) Start: 01/20/23 Expected End: 02/10/23 TRANSFERS Patient will complete functional transfers with least restrictive device with minimal assist level of assistance. (Progressing) Start: 01/20/23 Expected End: 02/10/23 ROBERT MCDONNELL OT * Cris Grant, PT - 01/20/2023 10:08 AM EST Physical Therapy Physical Therapy Treatment Patient Name: Jagruti Esparza Today's Date: 01/20/2023 Time Calculation Start Time: 905 Stop Time: 931 Time Calculation (min): 26 min Assessment/Plan PT Assessment PT Assessment Results: Decreased strength, Decreased range of motion, Decreased endurance, Impairedbalance, Decreased mobility, Pain Rehab Prognosis: Fair Evaluation/Treatment Tolerance: Patient limited by fatigue Medical Staff Made Aware: Yes Strengths: Housing layout, Support and attitude of living partners End of Session Communication: Bedside nurse Assessment Comment: Pt. is a 67 yom who presents with diffuse/generalized pain, decreased functional strength, decreased AROM of caren UEs and LEs, decreased activity tolerance, and anticipated impaired balance. Pt. will benefit from skilled PT intervention while inpatient to address the above deficits. End of Session Patient Position: Bed, 3 rail up, Alarm on (Bed in partial chair position to promoteupright tolerance, all four extremities propped on pillows) PT Plan Treatment/Interventions: Bed mobility, Transfer training, Gait training, Balance training, Endurance training, Strengthening, Range of motion, Therapeutic exercise, Therapeutic activity, Positioning,Postural re-education, Home exercise program PT Plan: Skilled PT PT Frequency: 3 times per week PT Discharge Recommendations: Moderate intensity level of continued care PT Recommended Transfer Status: Assist x2 PT - OK to Discharge: Yes (Eval complete, refer to dispo) General Visit Information: PT Visit PT Received On: 01/20/23 Response to Previous Treatment: Patient with no complaints from previous session. General Reason for Referral: Pt. transferred from [facility] ED with CT A/P evidence of mid-transverse colon thickening, complicated diverticulitis, and a pericolonic abscess. S/p IR drain in left lower quadrant on 01/11. Now s/p Laparoscopic sigmoid resection with creation of end colostomy with repair ofumbilical hernia for diverticulitis on 01/15 Past Medical History Relevant to Rehab: prior kidney transplant (08/04/12), atrial flutter (on flecainide and diltiazem), HTN, and obesity Family/Caregiver Present: Yes Caregiver Feedback: Spouse, supportive Co-Treatment: OT Co-Treatment Reason: To maximize theraeutic potential and pt. safety. Pt. with AMPAC </= 10 Prior to Session Communication: Bedside nurse Patient Position Received: Bed, 3 rail up, Alarm off, not on at start of session Preferred Learning Style: verbal, visual General Comment: Pt. received supine in bed, reports has been performing supine ther ex throughout the day. Pt. was agreeable to participate in session wih encouragement Subjective Precautions: Precautions Medical Precautions: Fall precautions, Abdominal precautions Post-Surgical Precautions: Abdominal surgery precautions Objective Pain: Pain Assessment Pain Assessment: 0-10 Pain Score: 2 Pain Type: Acute pain Pain Location: Abdomen Pain Orientation: Left Pain Frequency: Constant/continuous Cognition: Cognition Overall Cognitive Status: Within Functional Limits Orientation Level: Oriented X4 Cognition Comments: Flat affect Postural Control: Postural Control Postural Control: Impaired Trunk Control: minAx1 initially for sitting balance, improved to CGAx1 with caren UE suport on bed Activity Tolerance: Activity Tolerance Endurance: Tolerates 10 - 20 min exercise with multiple rests Activity Tolerance Comments: Increased encouragement throughout session. Pt. tolerated EOB sitting ~15 min and sit<>stand transfers 2x this date. Treatments: Therapeutic Exercise Therapeutic Exercise Performed: No Therapeutic Activity Therapeutic Activity Performed: Yes Therapeutic Activity 1: Pt. tolerated sitting EOB ~15 min total this date with varying assist, seated rest breaks provided throughout session. Cues for upright functional posture and PLB. Therapeutic Activity 2: Pt. tolerated static standing trials 2x, able to sustain </= 10 sec withmodAx2, caren arm in arm assist, max verbal cues Bed Mobility Bed Mobility: Yes Bed Mobility 1 Bed Mobility 1: Supine to sitting Level of Assistance 1: Maximum assistance, Maximum verbal cues (x2) Bed Mobility Comments 1: HOB elevated maximally, use of draw sheet. Pt. able to minimally advance caren LEs towards EOB though required increased assist to complete transfer. (Increased time to complete as pt. required rest break during transfer to EOB 2/2 report of pain and dizziness) Bed Mobility 2 Bed Mobility 2: Sitting to supine Level of Assistance 2: Maximum verbal cues, Maximum assistance (x2) Bed Mobility Comments 2: Assist at trunk and LEs Bed Mobility 3 Bed Mobility 3: Scooting Level of Assistance 3: Dependent (x2) Bed Mobility Comments 3: Boost, bed in trendelenburg Bed Mobility 4 Bed Mobility 4: Rolling right Level of Assistance 4: Moderate assistance, Moderate verbal cues (x1) Bed Mobility Comments 4: Pt. completed rolling to R to adjust chux/linens. UE assist on bed rail, physical assist at hips Ambulation/Gait Training Ambulation/Gait Training Performed: No Transfers Transfer: Yes Transfer 1 Transfer From 1: Bed to Transfer to 1: Stand Technique 1: Sit to stand Transfer Device 1: (caren arm in arm assist, use of draw sheets at hips to assist with extension) Transfer Level of Assistance 1: Moderate assistance, Maximum verbal cues (x2) Trials/Comments 1: Completed 2x. Bed elevated to improve ease with transfer. Cues for upright functional posture, forward gaze, and pursed lip breathing Transfers 2 Transfer From 2: Stand to Transfer to 2: Bed Technique 2: Stand to sit Transfer Device 2: (caren arm in arm assist) Transfer Level of Assistance 2: Moderate assistance, Maximum verbal cues Trials/Comments 2: Completed 2x. Pt. demo decreased eccentric control with descent Stairs Stairs: No Outcome Measures: [facility] Basic Mobility Turning from your back to your side while in a flat bed without using bedrails: A lot Moving from lying on your back to sitting on the side of a flat bed without using bedrails: Total Moving to and from bed to chair (including a wheelchair): Total Standing up from a chair using your arms (e.g. wheelchair or bedside chair): Total To walk in hospital room: Total Climbing 3-5 steps with railing: Total Basic Mobility - Total Score: 7 Education Documentation Precautions, taught by Cris Grant PT at 01/20/2023 10:07 AM. Learner: Significant Other, Patient Readiness: Acceptance Method: Explanation, Demonstration Response: Verbalizes Understanding Body Mechanics, taught by Cris Grant PT at 01/20/2023 10:07 AM. Learner: Significant Other, Patient Readiness: Acceptance Method: Explanation, Demonstration Response: Verbalizes Understanding Home Exercise Program, taught by Cris Grant PT at 01/20/2023 10:07 AM. Learner: Significant Other, Patient Readiness: Acceptance Method: Explanation, Demonstration Response: Verbalizes Understanding Mobility Training, taught by Cris Grant PT at 01/20/2023 10:07 AM. Learner: Significant Other, Patient Readiness: Acceptance Method: Explanation, Demonstration Response: Verbalizes Understanding Education Comments No comments found. OP EDUCATION: Encounter Problems Encounter Problems (Active) Balance Pt. will tolerate sitting upright EOB >/= 10 min with unilateral UE support as needed and CGAx1 in order to improve upright sitting tolerance and trunk control, while maintaining stable vitals. (Progressing) Start: 01/13/23 Expected End: 01/27/23 Mobility Patient will ambulate >/= 10' with minAx1 and LRAD (Progressing) Start: 01/13/23 Expected End: 01/27/23 Patient will actively participate in ther-ex in order to improve strength and to assist with the completion of functional mobility tasks. (Progressing) Start: 01/13/23 Expected End: 01/27/23 Transfers Patient will perform bed mobility with minAx1 (Progressing) Start: 01/13/23 Expected End: 01/27/23 Patient will transfer sit to and from stand with minAx1 and LRAD (Progressing) Start: 01/13/23 Expected End: 01/27/23 * Rhonda Tidwell MD - 01/20/2023 5:45 AM EST Images from the original note were not included. INPATIENT TRANSPLANT NEPHROLOGY PROGRESS NOTE SERVICE DATE: 01/20/2023 SERVICE TIME: 5:45 AM REASON FOR CONSULT: Immunosuppressive medication management and nephrology related issues. SUBJECTION: Discussed plan regarding immunosuppression changes in length. Risks/benefits were addressed and allquestions were answered. No acute event overnight. PHYCISCAL EXAMINATION: Visit Vitals BP 148/66 (BP Location: Left arm, Patient Position: Lying) Comment (BP Location): LOWER Pulse 75 Temp 36.8 C (98.2 F) (Temporal) Resp 18 Ht 1.753 m (5' 9 ) Wt 93 kg (205 lb) SpO2 96% BMI 30.27 kg/m Smoking Status Never BSA 2.13 m 01/18 0700 - 01/19 1859 In: 970 [P.O.:720] Out: 2950 [Urine:2850] Weight change: General Appearance - NAD, Good speech, oriented and alert HEENT - Supple. Not pale. No jaundice. No cervical lymphadenopathy. Pharynx and tonsils are not injected. CVS - RRR. Normal S1/S2. No murmur, click , rub or gallop Lungs- clear to auscultation bilaterally Abdomen - soft , not tender, no guarding, no rigidity. No hepatosplenomegaly. Normal bowel sounds. No masses and ascites. S/P Kidney transplant . Transplanted kidney is not tender. Musculoskeletal /Extremities - no edema. Full ROM. No joint tenderness. Neuro/Psych - appropriate mood and affect. Motor power V/V all extremities. CN I -XII were grossly intact. Skin - No visible rash MEDICATION LIST: acetaminophen, 650 mg, q6h albuterol, 1.25 mg, Once dilTIAZem CD, 180 mg, Daily flecainide, 50 mg, q8h gabapentin, 300 mg, TID heparin (porcine), 5,000 Units, q8h [Held by provider] mycophenolate, 500 mg, BID pantoprazole, 20 mg, BID polyethylene glycol, 17 g, Daily predniSONE, 5 mg, Daily rOPINIRole, 1 mg, Nightly tacrolimus, 0.5 mg, 2 times per day lubricating eye drops, 2 drop, PRN oxyCODONE, 10 mg, q6h PRN oxyCODONE, 5 mg, q6h PRN ALLERGY: Allergies Allergen Reactions Cephalexin Hives, Rash and Headache headache Other reaction(s): Unknown Reaction headache Tobramycin Rash Other Reaction(s): pain rash Pain in groin and rectum area Other Reaction(s): pain rash Pain in groin and rectum area Meperidine Dizziness [place] weird Other reaction(s): Other: See Comments, Unknown Reaction dizziness Erythromycin Rash headache Other reaction(s): Other: See Comments headache Penicillins Hives and Rash At 8 months old, swelling and hives. LABS: No results found for this or any previous visit (from the past 24 hour(s)). ASSESSMENT AND PLAN: Mr. Esparza is a 67 y.o. male who underwent a kidney transplant surgery on /A. Principal Problem: Diverticulitis Active Problems: Kidney transplant status HTN (hypertension) Atrial flutter (CMS/HCC) Mild aortic stenosis 1. ESRD S/P Kidney transplant. - Renal allograft function: Lab Results Component Value Date CREATININE 0.64 01/19/2023 Serum creatinine: 0.64 mg/dL 01/19/23 0525 Estimated creatinine clearance: 125 mL/min Intake/Output Summary (Last 24 hours) at 01/20/2023 0545 Last data filed at 01/20/2023 0434 Gross per 24 hour Intake 720 ml Output 2100 ml Net -1380 ml - Excellent kidney allograft function - Continue to monitor UOP and Serum creatinine closely. - Avoid nephrotoxic agents, NSAIDs and IV contrast - Strict I/O. - Renally dose all medications by the most recent CrCl from Cockcroft-Gault formula. 2. Immunosuppression - continue current immunosuppression - Monitor tacrolimus trough level -Last tacrolimus level was 5.2; continue same dose. -Goal tacrolimus trough level is 4-6. - Switched MMF to azathioprine 50 mg daily. (PLEASE DO NOT ORDER ALLOPURINOL in the future due to drug interaction with azathioprine). 3. Anemia and WBC Lab Results Component Value Date WBC 7.5 01/19/2023 HGB 8.3 (L) 01/19/2023 HCT 25.3 (L) 01/19/2023 MCV 72 (L) 01/19/2023 PLT 296 01/19/2023 -Continue to monitor Hgb -No indications for PRBC transfusion 4. Electrolyte Lab Results Component Value Date GLUCOSE 104 (H) 01/19/2023 CALCIUM 9.2 01/19/2023 NA 132 (L) 01/19/2023 K 5.0 01/19/2023 CO2 26 01/19/2023 CL 101 01/19/2023 BUN 7 01/19/2023 CREATININE 0.64 01/19/2023 - Reviewed renal profile. 6. Hypertension Blood Pressures 01/19/2023 1428 01/19/2023 1700 01/19/2023203201/20/2023 0155 01/20/2023 0434 BP: 157/70 151/67 149/72 146/78 148/66 -Goal BP < 140/90 mmHg -continue current management 7. Diverticulitis/perforated s/p surgery -Defer to primary team 8. GI prophylaxis - On PPI 9. DVT Prophylaxis -Defer to primary team * Case was discussed with primary team. For questions, please contact transplant nephrology page x [phone] Rhonda Tidwell Transplant Wardrobe Supervisor * Susana Leon RN - 01/19/2023 2:45 PM EST Images from the original note were not included. Wound Care Progress Note Visit Date: 01/19/2023 Patient Name: Jagruti Esparza Reason for Visit: Ostomy assessment. Pouch change and lesson with and patient. Wound History: POD # 4 from end colostomy creation Pertinent Labs: Albumin Date Value Ref Range Status 01/19/2023 2.3 (L) 3.4 - 5.0 g/dL Final Wound Assessment: Wound 01/15/23 Incision Umbilicus (Active) Date First Assessed/Time First Assessed: 01/15/23 1020 Present on Original Admission: No Primary Wound Type: (c) Incision Location: Umbilicus Assessments 01/19/2023 1:00 PM Site Assessment Clean Afsaneh-Wound Assessment Intact Shape linear/incision Closure Promise Sutures/Staple Line Approximated Drainage Description Serous Drainage Amount Small Dressing Foam Dressing Changed Changed Dressing Status Clean No associated orders. NEW Colostomy Other LLQ (Active) Placement Date/Time: 01/15/23 1124 Placed by: MD Pedro Hand Hygiene Completed: Yes Colostomy Type: (c) Other Location: LLQ Stoma Size (cm): 4.5 cm Number of days: 4 Colostomy Other LLQ (Active) Stomal Appliance 1 piece;Changed 01/19/23 1300 Site/Stoma Assessment Red 01/19/23 1300 Peristomal Assessment Intact 01/19/23 1300 Treatment Pouch change;Topical treatment 01/19/23 1300 Drainage Characteristics Brown;Green 01/19/23 1300 Output (mL) 100 mL 01/19/23 1300 Wound 01/14/23 Pressure Injury Buttocks Left (Active) Date First Assessed/Time First Assessed: 01/14/23 2100 Present on Original Admission: Yes Hand Hygiene Completed: Yes Primary Wound Type: Pressure Injury Location: Buttocks Wound Location Orientation: Left Number of days: 4 Wound 01/15/23 Incision Umbilicus (Active) Date First Assessed/Time First Assessed: 01/15/23 1020 Present on Original Admission: No Primary Wound Type: (c) Incision Location: Umbilicus Number of days: 4 Wound 01/18/23 Pressure Injury Buttocks Right (Active) Date First Assessed: 01/18/23 Present on Original Admission: Yes Hand Hygiene Completed: Yes Primary Wound Type: Pressure Injury Location: Buttocks Wound Location Orientation: Right Number of days: 1 Wound 01/14/23 Pressure Injury Buttocks Left (Active) Wound Image 01/18/23 1437 Site Assessment Purple;Red 01/18/23 1437 Afsaneh-Wound Assessment Blanchable erythema 01/18/23 1437 Pressure Injury Stage DTPI 01/18/23 1437 Shape irregular 01/18/23 1437 Wound Length (cm) 5 cm 01/18/23 1437 Wound Width (cm) 4 cm 01/18/23 1437 Wound Surface Area (cm^2) 20 cm^2 01/18/23 1437 Wound Depth (cm) 0 cm 01/18/23 1437 Wound Volume (cm^3) 0 cm^3 01/18/23 1437 State of Healing Non-healing 01/18/23 1437 Drainage Description None 01/18/23 1437 Drainage Amount None 01/18/23 1437 Dressing Xeroform;Foam 01/18/23 1437 Dressing Changed New 01/18/23 2306 Dressing Status Dry;Clean 01/18/23 2306 Wound 01/15/23 Incision Umbilicus (Active) Site Assessment Clean 01/19/23 1300 Afsaneh-Wound Assessment Intact 01/19/23 1300 Shape linear/incision 01/19/23 1300 Wound Length (cm) 5 cm 01/18/23 1437 Wound Width (cm) 0 cm 01/18/23 1437 Wound Surface Area (cm^2) 0 cm^2 01/18/23 1437 Wound Depth (cm) 0 cm 01/18/23 1437 Wound Volume (cm^3) 0 cm^3 01/18/23 1437 Margins Attached edges 01/18/23 1437 Closure Promise 01/19/23 1300 Sutures/Staple Line Approximated 01/19/23 1300 Drainage Description Serous 01/19/23 1300 Drainage Amount Small 01/19/23 1300 Dressing Foam 01/19/23 1300 Dressing Changed Changed 01/19/23 1300 Dressing Status Clean 01/19/23 1300 Wound 01/18/23 Pressure Injury Buttocks Right (Active) Site Assessment Purple 01/18/23 1437 Afsaneh-Wound Assessment Blanchable erythema 01/18/23 1437 Pressure Injury Stage DTPI 01/18/23 1437 Shape irregular 01/18/23 1437 Wound Length (cm) 1 cm 01/18/23 1437 Wound Width (cm) 2 cm 01/18/23 1437 Wound Surface Area (cm^2) 2 cm^2 01/18/23 1437 Wound Depth (cm) 0 cm 01/18/23 143 Wound Volume (cm^3) 0 cm^3 01/18/23 143 Margins Poorly defined 01/18/23 143 Drainage Description None 01/18/23 1437 Drainage Amount None 01/18/231436 Dressing Petroleum gauze;Xeroform;Other (Comment) 01/18/23 2306 Wound Team Summary Assessment: [facility] nursing visit outcome: Patient's present and performed 95% pouch change. Needed some assist with cutting the wafer and placing the ring and the pouch. She and patient are requesting another lesson tomorrow. They are hoping for discharge Wednesday or .Patient at this time refusing homecare. Ostomy supplies provided to patient 's . [facility] next scheduled visit/plan: tomorrow Stoma Type: End Colostomy George: No Diameter: 1 3/4 in Location: LLQ Protrusion: Budded Mucosal Condition and Color: Moist, Red, Edematous Mucocutaneous Junction: Intact Peristomal Skin: blistering and skin tear along distal edge where old tape was, powder and cavilon no sting skin barrier film applied Location of Skin Impairment: 3 o clock, 6 o clock Peristomal Contour: Rounded Supportive Tissue: Firm Character of Output: Brown, green liquid effluent Removed/Current Pouching System: One piece [place] drainable pouch with a ring. Recommendations: Skin Care: Stomahesive powder and Cavilon no sting skin barrier film Pouching System: 1 piece [place] flat drainable pouch with a ring. Wound Team Plan: Lesson tomorrow with and patient prior to discharge. SUSANA LEON RN,BSN,CWOCN 01/19/2023 2:45 PM * KSENIA Jaramillo - 01/19/2023 10:35 AM EST Jagruti Esparza is a 67 y.o. male on day 9 of admission presenting with Diverticulitis. YAZMIN met with pt and spouse, Richa, to discuss pt's financial concerns related to this hospital admission. SW provided the application for financial assistance with instructions on how to submit. Chao Jorgensen [facility] [place], BARN AND PROPERTY MANAGER. 01/11/2023 1400 SW reached out to a financial navigator to further assist pt. The navigator stated that she called and spoke to pt's and went over the financial assistance application SW provided earlier. YAZMINwill continue to follow and assist as needed. Chao Jorgensen [facility] [place], BARN AND PROPERTY MANAGER. 01/19/2023 The care team is recommending SNF placement for pt. Pt is refusing. YAZMIN met with pt to get clarification and to see if the refusal was due to financial concerns. After meeting with pt and spouse aboutSNF placement, it was learned that pt is a germaphobe and believes, in particular, that he will catch the coronavirus. Pt is also refusing HC due to germs. SW explained that pt needs to build his stre ngth by working with PT and OT; pt has been refusing to work with both. Pt stated that to get home safely, he will begin working with PT and OT. He reported that he wants to work on his strength and he understands why discharging home is not safe at this time. After more conversation with SW, pt stated that he may be willing to accept HC closer to discharge. Pt again committed to working with PT and OT while he's here. Pt did mention that his PCP does have outpatient PT in the office. SW asked that pt focus on PT/OT here. Care team updated. SW will follow and assist as needed. Chao Jorgensen [facility], BARN AND PROPERTY MANAGER. * Cris Grant, PT - 01/18/2023 11:48 AM EST Physical Therapy Physical Therapy Treatment Patient Name: Jagruti Esparza Today's Date: 01/18/2023 Time Calculation Start Time: 1054 Stop Time: 1133 Time Calculation (min): 39 min Assessment/Plan PT Assessment PT Assessment Results: Decreased strength, Decreased range of motion, Decreased endurance, Impairedbalance, Decreased mobility, Pain Rehab Prognosis: Fair Evaluation/Treatment Tolerance: Patient limited by fatigue, Patient limited by pain Medical Staff Made Aware: Yes Strengths: Housing layout, Support and attitude of living partners End of Session Communication: Bedside nurse Assessment Comment: Pt. is a 67 yom who presents with diffuse/generalized pain, decreased functional strength, decreased AROM of caren UEs and LEs, decreased activity tolerance, and anticipated impaired balance. Pt. will benefit from skilled PT intervention while inpatient to address the above deficits. End of Session Patient Position: Bed, 3 rail up, Alarm off, not on at start of session PT Plan Treatment/Interventions: Bed mobility, Transfer training, Gait training, Balance training, Endurance training, Strengthening, Range of motion, Therapeutic exercise, Therapeutic activity, Positioning,Postural re-education, Home exercise program PT Plan: Skilled PT PT Frequency: 3 times per week PT Discharge Recommendations: Moderate intensity level of continued care PT Recommended Transfer Status: Assist x2 PT - OK to Discharge: Yes (Eval complete, refer to dispo) General Visit Information: PT Visit PT Received On: 01/18/23 Response to Previous Treatment: Patient with no complaints from previous session. General Reason for Referral: Pt. transferred from [facility] ED with CT A/P evidence of mid-transverse colon thickening, complicated diverticulitis, and a pericolonic abscess. S/p IR drain in left lower quadrant on 01/11. Now s/p Laparoscopic sigmoid resection with creation of end colostomy with repair ofumbilical hernia for diverticulitis on 01/15 (Bowers, ostomy, PICC) Past Medical History Relevant to Rehab: prior kidney transplant (08/04/12), atrial flutter (on flecainide and diltiazem), HTN, and obesity Family/Caregiver Present: Yes Caregiver Feedback: Spouse, supportive Prior to Session Communication: Bedside nurse Patient Position Received: Bed, 3 rail up, Alarm off, not on at start of session Preferred Learning Style: verbal, visual General Comment: Pt. received supine in bed, flat affect. Pt. requred increased encouragement to participate in session this date. RN present throughout session to assist. Subjective Precautions: Precautions Medical Precautions: Fall precautions, Abdominal precautions Post-Surgical Precautions: Abdominal surgery precautions Objective Pain: Pain Assessment Pain Assessment: 0-10 Pain Score: 8 Pain Type: Surgical pain Pain Location: Abdomen Pain Frequency: Constant/continuous Cognition: Cognition Overall Cognitive Status: Within Functional Limits Orientation Level: Oriented X4 Cognition Comments: Flat affect Postural Control: Postural Control Postural Control: Impaired Trunk Control: minAx1 at trunk for sitting balance, progressed to CGAx1 with cues for proper UE placement to increase [place] Activity Tolerance: Activity Tolerance Endurance: Tolerates 10 - 20 min exercise with multiple rests Activity Tolerance Comments: With heavy encouragement from PT and RN, pt. able to mobilize to EOB, tolerate EOB activitites ~15 min, and complete two partial sit<>stand transfers. Treatments: Therapeutic Exercise Therapeutic Exercise Performed: Yes Therapeutic Exercise Activity 1: Sup: caren AP x10, caren gastroc stretch 20 sec hold x2 reps, caren AAROM heel slides x10, caren modified leg press with external resistance from therapist x10 Therapeutic Exercise Activity 2: EOB: caren LAQ x5 with visual target Therapeutic Activity Therapeutic Activity Performed: Yes Therapeutic Activity 1: Pt. tolerated sitting EOB ~15 min total this date. Emphasis on upright functional posture and PLB Bed Mobility Bed Mobility: Yes Bed Mobility 1 Bed Mobility 1: Supine to sitting Level of Assistance 1: Maximum assistance, Maximum verbal cues (x2) Bed Mobility Comments 1: HOB elevated maximally, use of draw sheet Bed Mobility 2 Bed Mobility 2: Sitting to supine Level of Assistance 2: Dependent (x2) Bed Mobility Comments 2: Assist at trunk and LEs Bed Mobility 3 Bed Mobility 3: Scooting Level of Assistance 3: Dependent (x2) Bed Mobility Comments 3: Boost completed 2x Ambulation/Gait Training Ambulation/Gait Training Performed: No Transfers Transfer: Yes Transfer 1 Transfer From 1: Bed to Transfer to 1: Stand Technique 1: Sit to stand Transfer Device 1: (caren arm in arm assist, use of draw sheet to assist with hip extension) Transfer Level of Assistance 1: Maximum assistance, Maximum verbal cues (x2) Trials/Comments 1: Complete 2x. Pt. able to achieve ~75% stand. Bed elevated to improve ease. Pt. demos flexed posture, cues for upright posture and forward gaze Transfers 2 Transfer From 2: Stand to Transfer to 2: Bed Technique 2: Stand to sit Transfer Device 2: (caren arm in arm assist) Transfer Level of Assistance 2: Maximum assistance, Maximum verbal cues (x2) Trials/Comments 2: Completed 2x. Pt. demo decreased eccentric control with descent. Stairs Stairs: No Outcome Measures: [facility] Basic Mobility Turning from your back to your side while in a flat bed without using bedrails: Total Moving from lying on your back to sitting on the side of a flat bed without using bedrails: Total Moving to and from bed to chair (including a wheelchair): Total Standing up from a chair using your arms (e.g. wheelchair or bedside chair): Total To walk in hospital room: Total Climbing 3-5 steps with railing: Total Basic Mobility - Total Score: 6 Education Documentation Precautions, taught by Cris Grant, PT at 01/18/2023 11:47 AM. Learner: Significant Other, Patient Readiness: Acceptance Method: Explanation, Demonstration Response: Verbalizes Understanding Body Mechanics, taught by Cris Grant PT at 01/18/2023 11:47 AM. Learner: Significant Other, Patient Readiness: Acceptance Method: Explanation, Demonstration Response: Verbalizes Understanding Home Exercise Program, taught by Cris Grant PT at 01/18/2023 11:47 AM. Learner: Significant Other, Patient Readiness: Acceptance Method: Explanation, Demonstration Response: Verbalizes Understanding Mobility Training, taught by Cris Grant, PT at 01/18/2023 11:47 AM. Learner: Significant Other, Patient Readiness: Acceptance Method: Explanation, Demonstration Response: Verbalizes Understanding Education Comments No comments found. OP EDUCATION: Encounter Problems Encounter Problems (Active) Balance Pt. will tolerate sitting upright EOB >/= 10 min with unilateral UE support as needed and CGAx1 in order to improve upright sitting tolerance and trunk control, while maintaining stable vitals. (Progressing) Start: 01/13/23 Expected End: 01/27/23 Mobility Patient will ambulate >/= 10' with minAx1 and LRAD (Progressing) Start: 01/13/23 Expected End: 01/27/23 Patient will actively participate in ther-ex in order to improve strength and to assist with the completion of functional mobility tasks. (Progressing) Start: 01/13/23 Expected End: 01/27/23 Transfers Patient will perform bed mobility with minAx1 (Progressing) Start: 01/13/23 Expected End: 01/27/23 Patient will transfer sit to and from stand with minAx1 and LRAD (Progressing) Start: 01/13/23 Expected End: 01/20/23 * Rhonda Tidwell MD - 01/18/2023 11:17 AM EST Images from the original note were not included. INPATIENT TRANSPLANT NEPHROLOGY PROGRESS NOTE SERVICE DATE: 01/18/2023 SERVICE TIME: 11:18 AM REASON FOR CONSULT: Immunosuppressive medication management and nephrology related issues. SUBJECTION: Lab was drawn this am and the result is pending. Tacrolimus was held and resumed over the weekend. Awaiting the level today to determine dosage adjustment. No acute event overnight. PHYCISCAL EXAMINATION: Visit Vitals BP 148/66 (BP Location: Left arm, Patient Position: Lying) Pulse 78 Temp 36.8 C (98.2 F) (Temporal) Resp 16 Ht 1.753 m (5' 9 ) Wt 93 kg (205 lb) SpO2 94% BMI 30.27 kg/m Smoking Status Never BSA 2.13 m 01/16 1900 - 01/18 0659 In: 1655.5 [I.V.:1655.5] Out: 1825 [Urine:1800] Weight change: General Appearance - NAD, Good speech, oriented and alert HEENT - Supple. Not pale. No jaundice. No cervical lymphadenopathy. Pharynx and tonsils are not injected. CVS - RRR. Normal S1/S2. No murmur, click , rub or gallop Lungs- clear to auscultation bilaterally Abdomen - soft , not tender, no guarding, no rigidity. No hepatosplenomegaly. Normal bowel sounds. No masses and ascites. S/P Kidney transplant . Transplanted kidney is not tender. Musculoskeletal /Extremities - no edema. Full ROM. No joint tenderness. Neuro/Psych - appropriate mood and affect. Motor power V/V all extremities. CN I -XII were grossly intact. Skin - No visible rash MEDICATION LIST: acetaminophen, 650 mg, q6h dextromethorphan, 30 mg, q12h TREMAINE dilTIAZem CD, 180 mg, Daily flecainide, 50 mg, q8h heparin (porcine), 5,000 Units, q8h [Held by provider] mycophenolate, 500 mg, BID pantoprazole, 20 mg, BID predniSONE, 5 mg, Daily rOPINIRole, 1 mg, Nightly tacrolimus, 0.5 mg, 2 times per day HYDROmorphone, 0.4 mg, q3h PRN lubricating eye drops, 2 drop, PRN oxyCODONE, 10 mg, q6h PRN oxyCODONE, 5 mg, q6h PRN ALLERGY: Allergies Allergen Reactions Cephalexin Hives, Rash and Headache headache Other reaction(s): Unknown Reaction headache Tobramycin Rash Other Reaction(s): pain rash Pain in groin and rectum area Other Reaction(s): pain rash Pain in groin and rectum area Meperidine Dizziness [place] weird Other reaction(s): Other: See Comments, Unknown Reaction dizziness Erythromycin Rash headache Other reaction(s): Other: See Comments headache Penicillins Hives and Rash At 8 months old, swelling and hives. LABS: No results found for this or any previous visit (from the past 24 hour(s)). ASSESSMENT AND PLAN: Mr. Esparza is a 67 y.o. male who underwent living unrelated kidney transplant surgery on 08/04/2012;with the baseline serum creatinine of less than 1.0 mg/dL. Home dose anti rejection meds are mycophenolate mofetil 750 mg twice a day, tacrolimus 1.5 mg twice a day, prednisone 5 mg a day. Patient was admitted for perforated diverticulitis, s/p surgery Laparoscopic sigmoid resection with creation of end colostomy with repair of umbilical hernia for diverticulitis on 01/15/2023. MMF was held and patient is currently on tacrolimus and prednisone. Transplant nephrology is consulted to assist with immunosuppressive medication management and nephrology related issues. Principal Problem: Diverticulitis Active Problems: Kidney transplant status HTN (hypertension) Atrial flutter (CMS/HCC) Mild aortic stenosis 1. ESRD S/P Kidney transplant. - Renal allograft function: Lab Results Component Value Date CREATININE 0.69 01/17/2023 Serum creatinine: 0.69 mg/dL 01/17/23 1014 Estimated creatinine clearance: 118.6 mL/min Intake/Output Summary (Last 24 hours) at 01/18/2023 1118 Last data filed at 01/18/2023 0527 Gross per 24 hour Intake 418 ml Output 1100 ml Net -682 ml - Continue to monitor UOP and Serum creatinine closely. - Avoid nephrotoxic agents, NSAIDs and IV contrast - Strict I/O. - Renally dose all medications by the most recent CrCl from Cockcroft-Gault formula. 2. Immunosuppression - continue current immunosuppression - Monitor tacrolimus trough level -Last tacrolimus level was PENDING. -Goal tacrolimus trough level is 4-6 3. Anemia and WBC Lab Results Component Value Date WBC 9.3 01/17/2023 WBC 9.3 01/17/2023 HGB 8.0 (L) 01/17/2023 HGB 8.0 (L) 01/17/2023 HCT 26.8 (L) 01/17/2023 HCT 26.8 (L) 01/17/2023 MCV 76 (L) 01/17/2023 MCV 76 (L) 01/17/2023 PLT 276 01/17/2023 PLT 276 01/17/2023 -Continue to monitor Hgb -No indications for PRBC transfusion 4. Electrolyte : Hypophosphatemia and hyponatremia. Lab Results Component Value Date GLUCOSE 103 (H) 01/17/2023 CALCIUM 9.9 01/17/2023 NA 131 (L) 01/17/2023 K 4.8 01/17/2023 CO2 25 01/17/2023 CL 100 01/17/2023 BUN 10 01/17/2023 CREATININE 0.69 01/17/2023 - Reviewed renal profile. - Lab this am is pending. Replace phos/magnesium as needed. 6. Hypertension Blood Pressures 01/17/2023 1825 01/17/2023 2036 01/18/2023 0125 01/18/2023 0501 01/18/2023 0941 BP: 151/72 139/68 150/70 146/65 148/66 -Goal BP < 140/90 mmHg -continue current management 7. S/P Laparoscopic sigmoid resection with creation of end colostomy with Repair of umbilical hernia for diverticulitis on 01/15. -Defer to surgery team 8. GI prophylaxis - On PPI 9. DVT Prophylaxis -Defer to primary team * Case was discussed with primary team. For questions, please contact transplant neph[place] [phone] Rhonda Tidwell Transplant Wardrobe Supervisor * Nhi Valiente RN - 01/17/2023 5:07 PM EST Wound Care Progress Note Visit Date: 01/17/2023 Patient Name: Jagruti Esparza Reason for Visit: end colostomy Wound History: POD # 2 from end colostomy creation Pertinent Labs: Albumin Date Value Ref Range Status 01/17/2023 2.4 (L) 3.4 - 5.0 g/dL Final Colostomy Other LLQ (Active) Stomal Appliance 1 piece;Changed 01/17/23 1634 Site/Stoma Assessment Dark edges;Red 01/17/23 1634 Peristomal Assessment Clean;Other (Comment) 01/17/23 1634 Treatment Other (Comment) 01/15/23 1124 Drainage Characteristics Bloody 01/16/23 2200 Output (mL) 25 mL 01/17/23 1246 WOC nursing visit outcome: Patient's present and watched pouch change. Patient watched at times, but listened to steps. Patient at this time refusing homecare. Patient and want another lesson to watch pouch change. WOC next scheduled visit/plan: tomorrow Stoma Type: End Colostomy George: No Diameter: 1 3/4 in Location: LLQ Protrusion: Budded Mucosal Condition and Color: Moist, Red, Edematous Mucocutaneous Junction: Intact Peristomal Skin: blistering and skin tear along distal edge where old tape was, cavilon no sting skin barrier film applied Location of Skin Impairment: 3 o clock, 6 o clock Peristomal Contour: Rounded Supportive Tissue: Firm Character of Output: none at this time Removed/Current Pouching System: One piece [place] drainable pouch Recommendations: Skin Care: [place] no sting skin barrier film Pouching System: 1 piece [place] flat drainable pouch Time Increment: 45 minutes Nhi Valiente, MSN, RN, CWCN, COCN 01/17/2023 5:07 PM * Thelma Diaz MD - 01/17/2023 9:59 AM EST Jagruti Esparza 67 y.o. @WT@ MRN/Room: 35117739/5003/5003-A Subjective: Denied any complaints this morning. Urine output in last 24 hours is a 25 cc. Objective: Meds: acetaminophen, 650 mg, q6h dextromethorphan, 30 mg, q12h TREMAINE dilTIAZem CD, 180 mg, Daily flecainide, 50 mg, q8h heparin (porcine), 5,000 Units, q8h [Held by provider] mycophenolate, 500 mg, BID pantoprazole, 20 mg, BID predniSONE, 5 mg, Daily rOPINIRole, 1 mg, Nightly [Held by provider] tacrolimus, 1 mg, 2 times per day lactated Ringer's, Last Rate: 75 mL/hr (01/17/23 0845) HYDROmorphone, 0.4 mg, q3h PRN lubricating eye drops, 2 drop, PRN oxyCODONE, 10 mg, q6h PRN oxyCODONE, 5 mg, q6h PRN Vitals: 01/17/23 0851 BP: 147/67 Pulse: 77 Resp: 18 Temp: 37.1 C (98.8 F) SpO2: 95% Intake/Output Summary (Last 24 hours) at 01/17/2023 0959 Last data filed at 01/17/2023 0851 Gross per 24 hour Intake 1975 ml Output 1050 ml Net 925 ml General appearance: no distress Eyes: non-icteric Skin: no apparent rash Heart: regular Lungs: CTA bilat no wheezing/crackles Abdomen: soft, colostomy bag in place Extremities: no edema bilat Bowers Neuro: No FND,asterixis Access Blood Labs: Results for orders placed or performed during the hospital encounter of 01/10/23 (from the past 24 hour(s)) Renal Function Panel Result Value Ref Range Glucose 97 74 - 99 mg/dL Sodium 135 (L) 136 - 145 mmol/L Potassium 5.0 3.5 - 5.3 mmol/L Chloride 102 98 - 107 mmol/L Bicarbonate 24 21 - 32 mmol/L Anion Gap 14 10 - 20 mmol/L Urea Nitrogen 12 6 - 23 mg/dL Creatinine 0.70 0.50 - 1.30 mg/dL eGFR >90 >60 mL/min/1.73m*2 Calcium 10.2 8.6 - 10.6 mg/dL Phosphorus 2.5 2.5 - 4.9 mg/dL Albumin 2.6 (L) 3.4 - 5.0 g/dL CBC Result Value Ref Range WBC 9.6 4.4 - 11.3 x10*3/uL nRBC 0.0 0.0 - 0.0 /100 WBCs RBC 3.71 (L) 4.50 - 5.90 x10*6/uL Hemoglobin 8.8 (L) 13.5 - 17.5 g/dL Hematocrit 28.1 (L) 41.0 - 52.0 % MCV 76 (L) 80 - 100 fL MCH 23.7 (L) 26.0 - 34.0 pg MCHC 31.3 (L) 32.0 - 36.0 g/dL RDW 17.2 (H) 11.5 - 14.5 % Platelets 282 150 - 450 x10*3/uL Magnesium Result Value Ref Range Magnesium 1.70 1.60 - 2.40 mg/dL ASSESSMENT: Jagruti Esparza is a 67 y.o. male presenting with perforated colon 2/2 diverticulitis as a transfer from [facility] ED, PMHx AFlutter (on Flecainide), kidney transplant (08/04/12), HTN, obesity. S/p apericolonic abscess drain placement on 01/11/2023 eventually underwent laparoscopic resection of sigmoid colon and creation of end colostomy with repair of periumbilical hernia on 01/15/2023. He has a history of kidney transplant from a living unrelated donor, with the baseline serum creatinine of less than 1.0 mg/dL. He reports taking his mycophenolate mofetil 750 mg twice a day, tacrolimus 1.5 mg twice a day, prednisone 5 mg a day. His mycophenolate mofetil and tacrolimus are branded C ellCept and Prograf respectively. His sodium level was reportedly 118 at outside hospital which gotbetter eventually. #Allograft function -Baseline Cr: 0.6- 0.8, awaiting labs today otherwise been at baseline 0.7. -Ultrasound transplant-mild increase in the resistive indicis but within normal range, no evidence of hydronephrosis or perinephric fluid collections. I expressed a suspicion for more than 50% renal artery stenosis but does not have any issues recently need a follow-up ultrasound. -Avoid hypotension, contrast, nephrotoxic medications #Immunosuppression -Continue Prednisone 5mg po once daily. -Tacrolimus levels are 15 as of 01/15/2023 recommended to hold tacrolimus until we will get the repeat levels awaiting repeat levels today. Aim tacrolimus levels are 5-8. -Mycophenolate currently on hold reference to recent surgery/intra-abdominal infection. #Electrolytes: -Sodium levels are within normal range, mild hyperkalemia noticed recommended low potassium diet. Calcium and phosphorus levels are optimal. #Anemia: Need iron studies , B12 and folate levels. Thelma Diaz MD * Cris Grant, PT - 01/15/2023 8:11 AM EDT Physical Therapy Therapy Communication Note Patient Name: Jagruti Esparza Today's Date: 01/15/2023 Discipline: Physical Therapy Missed Visit Reason: Missed Visit Reason: Patient in a medical procedure (Pt. off division in OR. Per EMR plan for lap possible open colectomy with colostomy creation. Will reattempt following procedure as medically appropriate.) Missed Time: Attempt Comment: * Thelma Diaz MD - 01/13/2023 4:27 PM EDT Jagruti Esparza 67 y.o. @WT@ MRN/Room: 67870008/5003/5003-A Subjective: no acute events overnight Objective: Meds: acetaminophen, 650 mg, q6h albuterol, 2.5 mg, Once dilTIAZem XR, 180 mg, Daily enoxaparin, 40 mg, Daily flecainide, 50 mg, q8h magnesium hydroxide, 30 mL, Once mycophenolate, 500 mg, BID pantoprazole, 20 mg, BID piperacillin-tazobactam, 3.375 g, q6h predniSONE, 5 mg, Daily rOPINIRole, 1 mg, Nightly sodium bicarbonate, 650 mg, BID sodium phosphate, 21 mmol, Once tacrolimus, 1 mg, 2 times per day D5 % and 0.9 % sodium chloride, Last Rate: 75 mL/hr (01/13/23 0935) lubricating eye drops, 2 drop, PRN oxyCODONE, 10 mg, q6h PRN oxyCODONE, 5 mg, q6h PRN Vitals: 01/13/23 1402 BP: Pulse: 84 Resp: Temp: SpO2: Intake/Output Summary (Last 24 hours) at 01/13/2023 1627 Last data filed at 01/13/2023 1400 Gross per 24 hour Intake 3318.33 ml Output 1025 ml Net 2293.33 ml General appearance: no distress Eyes: non-icteric Skin: no apparent rash Heart: regular Lungs: CTA bilat no wheezing/crackles Abdomen: soft, nt/nd Extremities: no edema bilat Bow[place] Neuro: No FND,asterix[employer] Access Blood Labs: Results for orders placed or performed during the hospital encounter of 01/10/23 (from the past 24 hour(s)) POCT GLUCOSE Result Value Ref Range POCT Glucose 192 (H) 74 - 99 mg/dL POCT GLUCOSE Result Value Ref Range POCT Glucose 140 (H) 74 - 99 mg/dL POCT GLUCOSE Result Value Ref Range POCT Glucose 143 (H) 74 - 99 mg/dL POCT GLUCOSE Result Value Ref Range POCT Glucose 189 (H) 74 - 99 mg/dL POCT GLUCOSE Result Value Ref Range POCT Glucose 230 (H) 74 - 99 mg/dL POCT GLUCOSE Result Value Ref Range POCT Glucose 231 (H) 74 - 99 mg/dL Renal Function Panel Result Value Ref Range Glucose 194 (H) 74 - 99 mg/dL Sodium 127 (L) 136 - 145 mmol/L Potassium 6.1 (HH) 3.5 - 5.3 mmol/L Chloride 99 98 - 107 mmol/L Bicarbonate 23 21 - 32 mmol/L Anion Gap 11 mmol/L Urea Nitrogen 11 6 - 23 mg/dL Creatinine 0.71 0.50 - 1.30 mg/dL eGFR >90 >60 mL/min/1.73m*2 Calcium 9.8 8.6 - 10.6 mg/dL Phosphorus 1.9 (L) 2.5 - 4.9 mg/dL Albumin 2.7 (L) 3.4 - 5.0 g/dL Magnesium Result Value Ref Range Magnesium 2.14 1.60 - 2.40 mg/dL Renal function panel Result Value Ref Range Glucose 114 (H) 74 - 99 mg/dL Sodium 129 (L) 136 - 145 mmol/L Potassium 4.6 3.5 - 5.3 mmol/L Chloride 100 98 - 107 mmol/L Bicarbonate 24 21 - 32 mmol/L Anion Gap 10 10 - 20 mmol/L Urea Nitrogen 10 6 - 23 mg/dL Creatinine 0.70 0.50 - 1.30 mg/dL eGFR >90 >60 mL/min/1.73m*2 Calcium 9.8 8.6 - 10.6 mg/dL Phosphorus 1.7 (L) 2.5 - 4.9 mg/dL Albumin 2.6 (L) 3.4 - 5.0 g/dL POCT GLUCOSE Result Value Ref Range POCT Glucose 114 (H) 74 - 99 mg/dL POCT GLUCOSE Result Value Ref Range POCT Glucose 115 (H) 74 - 99 mg/dL CBC Result Value Ref Range WBC 7.9 4.4 - 11.3 x10*3/uL nRBC 0.0 0.0 - 0.0 /100 WBCs RBC 4.14 (L) 4.50 - 5.90 x10*6/uL Hemoglobin 9.7 (L) 13.5 - 17.5 g/dL Hematocrit 29.1 (L) 41.0 - 52.0 % MCV 70 (L) 80 - 100 fL MCH 23.4 (L) 26.0 - 34.0 pg MCHC 33.3 32.0 - 36.0 g/dL RDW 16.1 (H) 11.5 - 14.5 % Platelets 249 150 - 450 x10*3/uL MPV 9.2 7.5 - 11.5 fL Tacrolimus level Result Value Ref Range Tacrolimus 10.5 <=15.0 ng/mL POCT GLUCOSE Result Value Ref Range POCT Glucose 138 (H) 74 - 99 mg/dL POCT GLUCOSE Result Value Ref Range POCT Glucose 129 (H) 74 - 99 mg/dL POCT GLUCOSE Result Value Ref Range POCT Glucose 132 (H) 74 - 99 mg/dL ASSESSMENT: Jagruti Esparza is a 67 y.o. male presenting with perforated colon 2/2 diverticulitis as a transfer from [facility] ED, PMHx AFlutter (on Flecainide), kidney transplant (08/04/12), HTN, obesity. S/p apericolonic abscess drain placement on 01/11/2023. He has a history of kidney transplant from a living unrelated donor, with the baseline serum creatinine of less than 1.0 mg/dL. He reports taking his mycophenolate mofetil 750 mg twice a day, tacrolimus 1.5 mg twice a day, prednisone 5 mg a day. His mycophenolate mofetil and tacrolimus are branded C ellCept and Prograf respectively. His sodium level was reportedly 118 at outside hospital. #Allograft function -Date of transplant: 2012 -Baseline Cr: 0.6- 0.8 -Appears to be at baseline renal function -Avoid hypotension, contrast, nephrotoxic medications #Immunosuppression -Continue Prednisone 5mg po once daily -Tacrolimus level this AM 10.5 -aim tacrolimus levels of 5-8. We will follow-up with the levels to make further adjustment as we decreased the dose. - continue MMF 500 BID, prednisone 5 mg daily and tacrolimus 1 mg BID #Electrolytes: -Serum Na improved to 129 as of yesterday morning's labs, no labs done today - Potassium is improved today, continue sodium bicarbonate 650 BID, may discontinue tomorrow if bicarb is improved and K remains stable - replete eugene Jones DO Nephrology Fellow Daytime / Weekend Renal Pager [phone] After 7 pm Emergencies Pager [phone] * Cris Grant, PT - 01/13/2023 3:30 PM EDT Physical Therapy Physical Therapy Evaluation & Treatment Patient Name: Jagruti Esparza Today's Date: 01/13/2023 Time Calculation Start Time: 1202 Stop Time: 1235 Time Calculation (min): 33 min Assessment/Plan PT Assessment PT Assessment Results: Decreased strength, Decreased range of motion, Decreased endurance, Impairedbalance, Decreased mobility, Pain Rehab Prognosis: Fair Evaluation/Treatment Tolerance: Patient limited by fatigue, Patient limited by pain Medical Staff Made Aware: Yes Strengths: Housing layout, Support and attitude of living partners End of Session Communication: Bedside nurse Assessment Comment: Pt. is a 67 yom who presents with diffuse/generalized pain, decreased functional strength, decreased AROM of caren UEs and LEs, decreased activity tolerance, and anticipated impaired balance. Pt. will benefit from skilled PT intervention while inpatient to address the above deficits. End of Session Patient Position: Bed, 3 rail up, Alarm on IP OR SWING BED PT PLAN Inpatient or Swing Bed: Inpatient PT Plan Treatment/Interventions: Bed mobility, Transfer training, Gait training, Balance training, Endurance training, Strengthening, Range of motion, Therapeutic exercise, Therapeutic activity, Positioning,Postural re-education, Home exercise program PT Plan: Skilled PT PT Frequency: 3 times per week PT Discharge Recommendations: Moderate intensity level of continued care PT Recommended Transfer Status: Total assist PT - OK to Discharge: Yes (Eval complete, refer to dispo) Subjective General Visit Information: General Reason for Referral: Pt. transferred from [facility] ED with CT A/P evidence of mid-transverse colon thickening, complicated diverticulitis, and a pericolonic abscess. S/p IR drain in left lower quadrant on 01/11 Past Medical History Relevant to Rehab: prior kidney transplant (08/04/12), atrial flutter (on flecainide and diltiazem), HTN, and obesity Missed Visit: Yes Missed Visit Reason: Other (Comment) (Attempt at 1136. Pt. reported in the process of having bowel movement, requesting PT to return at later time. Notified RN Tiffani. Will reattempt as schedule permits.) Family/Caregiver Present: Yes Caregiver Feedback: Spouse, supportive Prior to Session Communication: Bedside nurse Patient Position Received: Bed, 3 rail up, Alarm on Preferred Learning Style: verbal, visual General Comment: Pt. received supine in bed, agreeable to participate in session though requesting exercises only 2/2 increased fatigue and pain. (Tele, drain, IV) Home Living: Home Living Type of Home: House Lives With: Spouse Home Adaptive Equipment: Cane, Wheelchair-manual Home Layout: Able to live on main level with bedroom/bathroom Home Access: Ramped entrance Bathroom Shower/Tub: (Step into shower) Bathroom Equipment: Grab bars in shower, Shower chair with back Home Living Comments: Pt. reports sleeps in recliner on main level Prior Level of Function: Prior Function Per Pt/Caregiver Report Level of Hart: Needs assistance with functional transfers, Needs assistance with ADLs Receives Help From: (Spouse, son) ADL Assistance: Needs assistance Homemaking Assistance: Needs assistance Ambulatory Assistance: Needs assistance Transfers: Assistive device (Pt. reports needs physical assist for transfers) Gait: Assistive device (Limited to short distance ambulation (~15 ft) with cane; utilizes wheelchair for longer distances) Stairs: Total (Unable to complete, utilizes ramp) Vocational: Retired Leisure: Enjoys working on cars though has been unable to do so Hand Dominance: Right (Pt. reports has been having difficulty using R UE 2/2 pain and swelling; hasbeen using L UE) Prior Function Comments: Pt. admits to 1 fall out of shower chair, denies additional falls Precautions: Precautions Medical Precautions: Fall precautions Vital Signs: Vital Signs Heart Rate: 84 Heart Rate Source: Monitor BP Method: Automatic Patient Position: Lying Objective Pain: Pain Assessment Pain Assessment: 0-10 Pain Score: 4 Pain Location: Generalized (caren shoulders, groin, low back, neck) Pain Frequency: Constant/continuous Cognition: Cognition Overall Cognitive Status: Within Functional Limits Orientation Level: Oriented X4 Cognition Comments: Flat affect throughout session General Assessments: Activity Tolerance Endurance: Decreased tolerance for upright activites Activity Tolerance Comments: Pt. adamantly refusing all mobility this date, limited to supine ther ex 2/2 pain and fatigue Sensation Light Touch: (Pt. reports neuropathy at baseline, N/T in caren hands and caren LEs below knee) Static Sitting Balance Static Sitting-Comment/Number of Minutes: not assessed this date, pt. adamantly refused mobilizing to EOB Functional Assessments: Bed Mobility Bed Mobility: No (Pt. adamantly refused all mobility including rolling and scooting) Transfers Transfer: No Ambulation/Gait Training Ambulation/Gait Training Performed: No Stairs Stairs: No Extremity/Trunk Assessments: RUE RUE : (R shoulder flexion 2+/5, limited t ~70 deg of shoulder flexion 2/2 pain) LUE LUE: (L shoulder flexion 2+/5, able to achieve ~70 deg of active shoulder flexion) RLE RLE : (Grossly 2+/5, AROM limited by pain, PROM grossly WFL) LLE LLE : (Grossly 2+/5, AROM limited by pain, PROM grossly WFL) Treatments: Increased time spent educating patient and spouse on the importance of participation in physical therapy to retain strength and prevent deconditioning. Educated patient and spouse on there ex to perform throughout the day to maintain baseline strength and ROM. Educated patient on attempting to complete tasks such as feeding and wiping his eyes to maintain independence as spouse completing all activities for patient during session. Completed supine there ex as noted below with adequate rest breaks between. Therapeutic Exercise Therapeutic Exercise Performed: Yes Therapeutic Exercise Activity 1: Sup: AAROM caren shoulder x10 caren, L elbow flexion/extension x10, caren heel slides x10, caren hip abd x10, caren AP x15, heel raises with toes pushing against foot rail x10 Outcome Measures: [facility] Basic Mobility Turning from your back to your side while in a flat bed without using bedrails: A lot Moving from lying on your back to sitting on the side of a flat bed without using bedrails: Total Moving to and from bed to chair (including a wheelchair): Total Standing up from a chair using your arms (e.g. wheelchair or bedside chair): Total To walk in hospital room: Total Climbing 3-5 steps with railing: Total Basic Mobility - Total Score: 7 Encounter Problems Encounter Problems (Active) Balance Pt. will tolerate sitting upright EOB >/= 10 min with unilateral UE support as needed and CGAx1 in order to improve upright sitting tolerance and trunk control, while maintaining stable vitals. Start: 01/13/23 Expected End: 01/27/23 Mobility Patient will ambulate >/= 10' with minAx1 and LRAD Start: 01/13/23 Expected End: 01/27/23 Patient will actively participate in ther-ex in order to improve strength and to assist with the completion of functional mobility tasks. Start: 01/13/23 Expected End: 01/27/23 Transfers Patient will perform bed mobility with minAx1 Start: 01/13/23 Expected End: 01/27/23 Patient will transfer sit to and from stand with minAx1 and LRAD Start: 01/13/23 Expected End: 01/20/23 Education Documentation No documentation found. Education Comments No comments found. * Cris Grant PT - 01/13/2023 11:47 AM EDT Physical Therapy Therapy Communication Note Patient Name: Jagruti Esparza Today's Date: 01/13/2023 Discipline: Physical Therapy Missed Visit Reason: Missed Visit Reason: Other (Comment) (Attempt at 1136. Pt. reported in the process of having bowel movement, requesting PT to return at later time. Notified RN Tiffani. Will reattempt as schedule permits.) Missed Time: Attempt Comment: * Thelma Diaz MD - 01/12/2023 2:17 PM EDT Jagruti Esparza is a 67 y.o. male on day 2 of admission presenting with Diverticulitis. Subjective Doing ok today Had drain placed by IR yesterday Objective Vitals 24HR Heart Rate: [76-91] Temp: [36 C (96.8 F)-37 C (98.6 F)] Resp: [16-18] BP: (142-167)/(68-71) SpO2: [95 %-98 %] Intake/Output last 3 Shifts: Intake/Output Summary (Last 24 hours) at 01/12/2023 1417 Last data filed at 01/12/2023 1200 Gross per 24 hour Intake 2045.83 ml Output 1535 ml Net 510.83 ml Physical Exam General appearance: no distress Eyes: non-icteric HEENT: atrumatic head, PEERLA, moist mucosa Skin: no apparent rash Heart: NSR, S1, S2 normal, no murmur or gallop Lungs: Symmetrical expansion,CTA bilat no wheezing/crackles Abdomen: soft, nt/nd, LLQ drain in place Extremities: no edema bilaterally Neuro: No FND,asterixis Relevant Results Scheduled medications dilTIAZem XR, 180 mg, oral, Daily enoxaparin, 40 mg, subcutaneous, Daily flecainide, 50 mg, oral, q8h pantoprazole, 20 mg, oral, BID piperacillin-tazobactam, 3.375 g, intravenous, q6h predniSONE, 5 mg, oral, Daily rOPINIRole, 1 mg, oral, Nightly [Held by provider] tacrolimus, 1.5 mg, oral, 2 times per day Continuous medications D5 % and 0.9 % sodium chloride, 75 mL/hr, Last Rate: 75 mL/hr (01/12/23 1152) PRN medications PRN medications: acetaminophen, HYDROmorphone, HYDROmorphone, lubricating eye drops Results for orders placed or performed during the hospital encounter of 01/10/23 (from the past 24 hour(s)) POCT GLUCOSE Result Value Ref Range POCT Glucose 88 74 - 99 mg/dL Assessment/Plan Jagruti Esparza is a 67 y.o. male presenting with perforated colon 2/2 diverticulitis as a transfer from [facility] ED, PMHx AFlutter (on Flecainide), kidney transplant (08/04/12), HTN, obesity. He has a history of kidney transplant from a living unrelated donor, with the baseline serum creatinine of less than 1.0 mg/dL. He reports taking his mycophenolate mofetil 750 mg twice a day, tacrolimus 1.5 mg twice a day, prednisone 5 mg a day. His mycophenolate mofetil and tacrolimus are branded C ellCept and Prograf respectively. His sodium level was reportedly 118 at outside hospital. #Allograft function -Date of transplant: 2012 -Baseline Cr: 0.6- 0.8 -Appears to be at baseline renal function -Avoid hypotension, contrast, nephrotoxic medications #Immunosuppression -Continue Prednisone 5mg po once daily -Tacrolimus level yesterday morning was 21.3, unsure if this was a true trough level since it was drawn at 7:24am -Seems her tacrolimus this morning is 13.6. Continue holding this evening dose. And restart back 1 mg twice daily tomorrow morning. Please recheck tacrolimus trough levels 30 minutes before morning dose. -Resume MMF at lower dose of 500mg po bid from tomorrow #Electrolytes/hyponatremia and hyperkalemia -Serum Na improved to 129 as of yesterday morning's labs, no labs done today -Please consider checking urine lites, serum and urine osmolarity. -High potassium levels likely in the setting of high tacrolimus levels. Please start bicarb 650 twice daily and consider low potassium diet. And repeat RFp this evening. YAZMIN Ortiz MD Nephrology fellow PGY 4 Available via [facility] [facility] pager #[phone] * KSENIA Jaramillo - 01/11/2023 2:49 PM EDT Jagruti Esparza is a 67 y.o. male on day 1 of admission presenting with Diverticulitis. YAZMIN met with pt and spouse, Richa, to discuss pt's financial concerns related to this hospital admission. YAZMIN provided the application for financial assistance with instructions on how to submit. KSENIA Lainez. 01/11/2023 1400 YAZMIN reached out to a financial navigator to further assist pt. The navigator stated that she called and spoke to pt's and went over the financial assistance application YAZMIN provided earlier. YAZMINwill continue to follow and assist as needed. KSENIA Lainez. * Nydia Lawton RN - 01/11/2023 2:23 PM EDT 01/11/23 1418 Discharge Planning Living Arrangements Spouse/significant other Support Systems Spouse/significant other Assistance Needed pt requires assistance with ADLs and ambulation, has declined HC services Type of Residence Private residence Number of Stairs to Enter Residence (pt stays on the first floor, son helps him with ambulation up stairs) Home or Post Acute Services None (pt is declining HC or placement) Patient expects to be discharged to: home Does the patient need discharge transport arranged? Yes Financial Resource Strain How hard is it for you to pay for the very basics like food, housing, medical care, and heating? Somewhat Housing Stability In the last 12 months, was there a time when you were not able to pay the mortgage or rent on time?N In the last 12 months, how many places have you lived? 1 In the last 12 months, was there a time when you did not have a steady place to sleep or slept in ashelter (including now)? N Patient Choice Provider Choice list and CMS website (https://medicare.gov/care-compare#search) for post-acute Quality and Resource Measure Data were provided and reviewed with: Other (Comment) (pt declined services) Pt transferred from OSH for concerns of abd abscess r/t diverticulitis. Past Medical hx of kidney transplant, obesity and a.flutter. Met with the pt and his at the bedside to complete admission assessment. I explained my role as a healthcare or medical and will assist with discharge planning. Pt was agreeable. Pt stated he is very weak at baseline and currently sleeps in a recliner on the first floor of his house. His only able to walk short distances to the bathroom with a cane. Longer distances he is using a wheelchair in the house. He lives with his and she helps him with ADLs. Son lives next door and helps with transportation to appointments or if he needs any more help. He currently does not receive HC and he stated he does not want anyone coming into the house because he is concerned about germs. Pt said he will not go to a facility either. He told me today he was too weak and dizzy to get out of bed. He is agreeable to a PT eval and [facility] service asked to order a PT eval. Care Transitions will continue to follow until discharge. Nydia Lawton RN T[facility] * KSENIA Jaramillo - 01/11/2023 1:52 PM EDT Jagruti Esparza is a 67 y.o. male on day 1 of admission presenting with Diverticulitis. YAZMIN met with pt and spouse, Richa, to discuss pt's financial concerns related to this hospital admission. YAZMIN provided the application for financial assistance with instructions on how to submit. KSENIA Lainez. * Suzan Brantley CPhT - 01/10/2023 10:15 AM EDT Pharmacy Medication History Review Jagruti Esparza is a 67 y.o. male admitted for Diverticulitis. Pharmacy reviewed the patient's keino-nq-gzfcaijdz medications and allergies for accuracy. The list below reflects the updated DATA SYSTEMS MANAGER list. Please review each medication in order reconciliationfor additional clarification and justification. Medications Prior to Admission Medication Sig Dispense Refill Last Dose CellCept 250 mg capsule Take 3 capsules (750 mg) by mouth twice a day. 01/10/2023 at 12:00am magnesium oxide (Mag-Ox) 400 mg (241.3 mg magnesium) tablet Take 1 tablet (400 mg) by mouth once daily. 01/09/2023 at 9am pantoprazole (ProtoNix) 20 mg EC tablet Take 1 tablet (20 mg) by mouth twice a day. 01/10/2023 at 12:00am Prograf 1 mg capsule Take 1 capsule (1 mg) by mouth twice a day. With 0.5mg for a total of 1.5mg per dose 01/10/2023 at 12:00am rOPINIRole (Requip) 1 mg tablet Take 1 tablet (1 mg) by mouth once daily at bedtime. 01/10/2023 at 12:00am tacrolimus (Prograf) 0.5 mg capsule Take 0.5 mg by mouth twice a day. With 1mg for a total of 1.5mgper dose 01/10/2023 at 12:00am DILT-XR 180 mg 24 hr capsule Take 1 capsule (180 mg) by mouth once daily. 01/09/2023 at 9am docusate sodium (Colace) 100 mg capsule Take 1 capsule (100 mg) by mouth 3 times a day as needed for constipation. 01/06/2023 at am flecainide (Tambocor) 50 mg tablet Take 1 tablet (50 mg) by mouth every 8 hours. 01/10/2023 at 12:00am predniSONE (Deltasone) 5 mg tablet Take 1 tablet (5 mg) by mouth once daily. 01/09/2023 at 9am sulfamethoxazole-trimethoprim (Bactrim) 400-80 mg tablet Take 1 tablet by mouth once daily. 01/09/2023 at 9am The list below reflectives the updated allergy list. Please review each documented allergy for additional clarification and justification. Allergies Reviewed by Suzan Brantley CPhT on 01/10/2023 Severity Reactions Comments Cephalexin Medium Hives, Rash, Headache headache Other reaction(s): Unknown Reaction headache Tobramycin Medium Rash Other Reaction(s): pain rash Pain in groin and rectum area Other Reaction(s): pain rash Pain in groin and rectum area Meperidine Not Specified Dizziness [place] weird Other reaction(s): Other: See Comments, Unknown Reaction dizziness Erythromycin Low Rash headache Other reaction(s): Other: See Comments headache Penicillins Low Hives, Rash At 8 months old, swelling and hives. Sources: Patient is an excellent historian Grace SMITH, care everywhere: 01/09 [facility] ED note with pharmacy med recc from Sanju Gallardo [facility], patient interview, with additional information from family at bedside Below are additional concerns with the patient's DATA SYSTEMS MANAGER list. Patient usually takes medications at 9am, 3pm, and 9pm Reports medications were held & he got his evening doses late (at midnight) due to being in theED Patient takes Prograf and Cellcept brand only Patient reports penicillin allergy is historical from childhood (as a baby) Suzan Brantley PharmD [facility] PGY1 Glass Melt Operator [facility] Please reach out via [employer] Secure Chat for questions, or if no response call [employer] or [employer] [facility] Work Phone: [phone]) 325-347611-07-2023 Plan of care note* Care Plan - Karime Grimm RN - 01/19/2023 11:15 PM EST The patient's goals for the shift include rest The clinical goals for the shift include patient will have good airway exchange this shift [facility] Work Phone: [phone]) 938-693511-07-2023 Note* Documentation Clarification Note - Mery Jones MD - 01/19/2023 5:32 PM EST PATIENT: JAGRUTI ESPARZA : 1955 ADMIT DATE: 01/10/2023 4:06 AM DISCH DATE: RESPONDING PROVIDER #: [id number] PROVIDER RESPONSE TEXT: Moderate Protein Calorie Malnutrition CDI QUERY TEXT: [facility]_Nutrition Diagnosis Instruction: Based on your assessment of the patient and the clinical information, please provide the requested documentation by clicking on the appropriate radio button and enter any additional information if prompted. Question: Please further clarify this patient nutritional status as When answering this query, please exercise your independent professional judgment. The fact that a question is being asked, does not imply that any particular answer is desired or expected. The patient's clinical indicators include: Clinical Information: 67 year old male admitted with complicated diverticulitis. Clinical Indicators: - 01/14 Nutrition Assessment documents, Malnutrition Diagnosis: Moderate malnutrition related to acute disease or injury As Evidenced by: mild fat loss/ muscle wasting, mild fluid accumulation, inadequate energy intake (<75% for > 7 days) . - Per the Nutrition Focused Physical Exam Findings, Subcutaneous Fat Loss: Orbital Fat Pads: Mild-Moderate; Muscle Wasting: Temporalis, Pectoralis both Mild-Moderate. Edema: +2 mild, generalized Treatment: - Nutrition consult - RD recommends PO supplement but pt declines Risk Factors: - Admitted with perforated diverticulitis - Hx renal transplant, on immunosuppression Options provided: -- Moderate Protein Calorie Malnutrition -- Protein Calorie Malnutrition, Please specify severity -- Other - I will add my own diagnosis -- Refer to Clinical Documentation Reviewer Query created by: Yudith Valerio on 01/17/2023 5:40 PM Electronically signed by: MERY JONES MD 01/19/2023 5:32 PM [facility] Work Phone: [phone] 975-226711-07-2023 Plan of care note* Care Plan - Karime Grimm RN - 01/19/2023 3:15 AM EST The patient's goals for the shift include rest The clinical goals for the shift include patient will have good airway exchange this shift [facility] Work Phone: [phone] 551-470611-06-2023 Plan of care note* Care Plan - Karime Grimm RN - 01/18/2023 11:06 PM EST The patient's goals for the shift include rest The clinical goals for the shift include patient will have good urine output this shift [facility] Work Phone: [phone] 800-678311-06-2023 Nurse Note* Karime Grimm RN - 01/18/2023 9:42 PM EST Paged the team patient stating he is having a hard time breathing. Placed him on 3 L NC oxygen is at 99%. Gave patient incentive spirometer to use and sat him up more in bed. Will continue to monitorand the team will be to bedside to assess. [facility]11-06-2023 Consult note* Susana Leon RN - 01/18/2023 5:26 PM EST Images from the original note were not included. Wound Care Consult Visit Date: 01/18/2023 Patient Name: Jagruti Esparza Date of : 1955 Reason for Consult: Wound assessment and lesson/teaching to on ostomy care/pouch change. Wound History: POD # 3 from end colostomy creation Pertinent Labs: Albumin Date Value Ref Range Status 01/18/2023 2.3 (L) 3.4 - 5.0 g/dL Final Wound Assessment: Wound 01/14/23 Pressure Injury Buttocks Left (Active) Wound Image 01/18/23 1437 Site Assessment Purple;Red 01/18/23 1437 Afsaneh-Wound Assessment Blanchable erythema 01/18/23 1437 Pressure Injury Stage DTPI 01/18/23 1437 Shape irregular 01/18/23 1437 Wound Length (cm) 5 cm 01/18/23 1437 Wound Width (cm) 4 cm 01/18/23 1437 Wound Surface Area (cm^2) 20 cm^2 01/18/23 1437 Wound Depth (cm) 0 cm 01/18/23 1437 Wound Volume (cm^3) 0 cm^3 01/18/23 1437 State of Healing Non-healing 01/18/23 1437 Drainage Description None 01/18/23 1437 Drainage Amount None 01/18/23 1437 Dressing Xeroform;Foam 01/18/23 1437 Dressing Changed New 01/18/23 1437 Wound 01/15/23 Incision Umbilicus (Active) Site Assessment Clean;Dry 01/18/23 0810 Afsaneh-Wound Assessment Intact 01/18/23 0810 Shape linear 01/18/23 1437 Wound Length (cm) 5 cm 01/18/23 1437 Wound Width (cm) 0 cm 01/18/23 1437 Wound Surface Area (cm^2) 0 cm^2 01/18/23 1437 Wound Depth (cm) 0 cm 01/18/23 1437 Wound Volume (cm^3) 0 cm^3 01/18/23 143 Margins Attached edges 01/18/23 143 Closure Promise 01/18/23 143 Sutures/Staple Line Approximated 01/18/23 1437 Drainage Description Serosanguineous 01/18/23 1437 Drainage Amount Moderate 01/18/23 1437 Dressing Foam 01/18/23 1437 Dressing Changed New 01/18/23 1437 Dressing Status Dry;Clean 01/18/23 0810 Wound 01/18/23 Pressure Injury Buttocks Right (Active) Site Assessment Purple 01/18/23 1437 Afsaneh-Wound Assessment Blanchable erythema 01/18/231436 Pressure Injury Stage DTPI 01/18/23 143 Shape irregular 01/18/23 1437 Wound Length (cm) 1 cm 01/18/23 1437 Wound Width (cm) 2 cm 01/18/23 1437 Wound Surface Area (cm^2) 2 cm^2 01/18/23 1437 Wound Depth (cm) 0 cm 01/18/23 1437 Wound Volume (cm^3) 0 cm^3 01/18/23 1437 Margins Poorly defined 01/18/23 1437 Drainage Description None 01/18/23 1437 Drainage Amount None 01/18/23 143 Wound Team Summary Assessment: [facility] nursing visit outcome: Patient's present and performed 80% pouch change. Needed some assist with cutting the wafer and placing the ring and the pouch. She and patient are requesting another lesson tomorrow. Patient at this time refusing homecare. [facility] next scheduled visit/plan: tomorrow Stoma Type: End Colostomy George: No Diameter: 1 3/4 in Location: LLQ Protrusion: Budded Mucosal Condition and Color: Moist, Red, Edematous Mucocutaneous Junction: Intact Peristomal Skin: blistering and skin tear along distal edge where old tape was, powder and cavilon no sting skin barrier film applied Location of Skin Impairment: 3 o clock, 6 o clock Peristomal Contour: Rounded Supportive Tissue: Firm Character of Output: none at this time Removed/Current Pouching System: One piece [place] drainable pouch with a ring. Recommendations: Skin Care: Stomahesive powder and Cavilon no sting skin barrier film Pouching System: 1 piece [place] flat drainable pouch with a ring. Wound care: Patient has dark purple lesions to bilateral buttocks. He states thesehave been there for a long time as he sits on the toilet for hours and these howard are consistent with the circular ring of the toilet. Cleaned both with cleansing cloths, applied xeroform gauze and covered with a mepilex. Recommendations:Clean bilateral buttocks with cleansing cloths, apply xeroform gauze and cover witha mepilex. Change daily or as needed. Wound Team Plan: The wound/ostomy team will continue to follow as needed for ostomy teaching and wound assessment. SUSANA LEON RN, BSN, CWOCN 01/18/2023 5:26 PM [facility] Work Phone: [phone] Consult note* Susana Leon RN - 01/18/2023 5:26 PM EST Images from the original note were not included. Wound Care Consult Visit Date: 01/18/2023 Patient Name: Jagruti Esparza Date of : 1955 Reason for Consult: Wound assessment and lesson/teaching to on ostomy care/pouch change. Wound History: POD # 3 from end colostomy creation Pertinent Labs: Albumin Date Value Ref Range Status 01/18/2023 2.3 (L) 3.4 - 5.0 g/dL Final Wound Assessment: Wound 01/14/23 Pressure Injury Buttocks Left (Active) Wound Image 01/18/23 143 Site Assessment Purple;Red 01/18/23 1437 Afsaneh-Wound Assessment Blanchable erythema 01/18/23 1437 Pressure Injury Stage DTPI 01/18/23 1437 Shape irregular 01/18/23 1437 Wound Length (cm) 5 cm 01/18/23 1437 Wound Width (cm) 4 cm 01/18/23 1437 Wound Surface Area (cm^2) 20 cm^2 01/18/23 1437 Wound Depth (cm) 0 cm 01/18/23 1437 Wound Volume (cm^3) 0 cm^3 01/18/23 1437 State of Healing Non-healing 01/18/23 1437 Drainage Description None 01/18/23 1437 Drainage Amount None 01/18/23 1437 Dressing Xeroform;Foam 01/18/23 1437 Dressing Changed New 01/18/23 1437 Wound 01/15/23 Incision Umbilicus (Active) Site Assessment Clean;Dry 01/18/23 0810 Afsaneh-Wound Assessment Intact 01/18/23 0810 Shape linear 01/18/23 1437 Wound Length (cm) 5 cm 01/18/23 1437 Wound Width (cm) 0 cm 01/18/23 1437 Wound Surface Area (cm^2) 0 cm^2 01/18/23 1437 Wound Depth (cm) 0 cm 01/18/23 1437 Wound Volume (cm^3) 0 cm^3 01/18/23 1437 Margins Attached edges 01/18/23 1437 Closure [place] 01/18/23 1437 Sutures/Staple Line Approximated 01/18/23 1437 Drainage Description Serosanguineous 01/18/23 1437 Drainage Amount Moderate 01/18/23 1437 Dressing Foam 01/18/23 1437 Dressing Changed New 01/18/23 1437 Dressing Status Dry;Clean 01/18/23 0810 Wound 01/18/23 Pressure Injury Buttocks Right (Active) Site Assessment Purple 01/18/23 1437 Afsaneh-Wound Assessment Blanchable erythema 01/18/23 1437 Pressure Injury Stage DTPI 01/18/23 1437 Shape irregular 01/18/23 1437 Wound Length (cm) 1 cm 01/18/23 1437 Wound Width (cm) 2 cm 01/18/237 Wound Surface Area (cm^2) 2 cm^2 01/18/23 1437 Wound Depth (cm) 0 cm 01/18/23 1437 Wound Volume (cm^3) 0 cm^3 01/18/23 1437 Margins Poorly defined 01/18/23 1437 Drainage Description None 01/18/23 1437 Drainage Amount None 01/18/231436 Wound Team Summary Assessment: [facility] nursing visit outcome: Patient's present and performed 80% pouch change. Needed some assist with cutting the wafer and placing the ring and the pouch. She and patient are requesting another lesson tomorrow. Patient at this time refusing homecare. [facility] next scheduled visit/plan: tomorrow Stoma Type: End Colostomy George: No Diameter: 1 3/4 in Location: LLQ Protrusion: Budded Mucosal Condition and Color: Moist, Red, Edematous Mucocutaneous Junction: Intact Peristomal Skin: blistering and skin tear along distal edge where old tape was, powder and cavilon no sting skin barrier film applied Location of Skin Impairment: 3 o clock, 6 o clock Peristomal Contour: Rounded Supportive Tissue: Firm Character of Output: none at this time Removed/Current Pouching System: One piece [place] drainable pouch with a ring. Recommendations: Skin Care: Stomahesive powder and Cavilon no sting skin barrier film Pouching System: 1 piece [place] flat drainable pouch with a ring. Wound care: Patient has dark purple lesions to bilateral buttocks. He states thesehave been there for a long time as he sits on the toilet for hours and these howard are consistent with the circular ring of the toilet. Cleaned both with cleansing cloths, applied xeroform gauze and covered with a mepilex. Recommendations:Clean bilateral buttocks with cleansing cloths, apply xeroform gauze and cover witha mepilex. Change daily or as needed. Wound Team Plan: The wound/ostomy team will continue to follow as needed for ostomy teaching and wound assessment. SUSANA LEON RN, BSN, CWOCN 01/18/2023 5:26 PM * Cherise Quach RN - 01/17/2023 11:33 AM EST Vascular Access Team Consult Visit Date: 01/17/2023 Patient Name: Jagruti Esparza Reason for Consult: Midline Assessment: Midline placed on 01/14/23. Device remains in place, unable to place new device for lab draws. Ordering provider notified. Plan: Cancel order, alternative treatment needed. Cherise Quach RN 01/17/2023 11:33 AM * Gisela Carpio MD PhD - 01/16/2023 9:58 AM EDTAssociated Order(s): IP CONSULT TO UROLOGY Reason For Consult Bladder scan 900 ml despite Bowers in place History Of Present Illness Jagruti Esparza is a 67 y.o. male presenting with hx of kidney transplant (08/04/2012), A. Flutter, HTN, obesity, transferred from [facility] with concern for complicated diverticulitis and pericolonic abscess. IR drain was placed in LLQ on 01/11. He underwent laparoscopic sigmoid resection with creation of end colostomy and repair of umbilical hernia on 01/[address] Vasquez. Urology consulted for low UOP overnight despite Bowers being replaced and bladder scan >900 ml. Patient endorses discomfort in the LLQ and feeling very full. Past Medical History He has a past medical history of PONV (postoperative nausea and vomiting). Surgical History He has a past surgical history that includes Other surgical history (12/25/2020); Other surgical history (12/25/2020); Other surgical history (12/25/2020); Other surgical history (12/25/2020); Other surgical history (12/25/2020); Other surgical history (07/11/2021); and CT guided imaging for abscess drain (01/11/2023). Social History He reports that he has never smoked. He has never used smokeless tobacco. He reports that he does not currently use alcohol. He reports that he does not use drugs. Family History No family history on file. Allergies Cephalexin, Tobramycin, Meperidine, Erythromycin, and Penicillins Review of Systems Denies suprapubic discomfort, penile pain Denies N/V ROS otherwise negative unless specified in HPI Physical Exam GEN: Alert and conversant; no acute distress HEENT: NCAT; moist mucus membranes EYES: Sclera anicteric, EOMI PULM: Symmetric chest rise, no increased work of breathing on room air, no respiratory distress CV: Regular rate and rhythm ABD: Soft, appropriately tender. Ostomy pink with bowel sweat. CHRISTIANO SS. : 17F Bowers, draining clear dark yellow urine, flushed easily with clear yellow urine return, unable to palpate bladder. Significant scrotal edema. MSK: Moving all extremities spontaneously and to command EXTR: No joint swelling, moderate peripheral edema SKIN: Warm, dry, well-perfused NEURO: A&O x 3, no focal neurologic deficits PSYCH: Appropriate mood and affect Last Recorded Vitals Blood pressure 160/64, pulse 76, temperature 36.6 C (97.9 F), temperature source Temporal, resp. rate 16, height 1.753 m (5' 9 ), weight 93 kg (205 lb), SpO2 95 %. Relevant Results Results for orders placed or performed during the hospital encounter of 01/10/23 (from the past 96 hour(s)) Magnesium Result Value Ref Range Magnesium 1.73 1.60 - 2.40 mg/dL Renal Function Panel Result Value Ref Range Glucose 117 (H) 74 - 99 mg/dL Sodium 129 (L) 136 - 145 mmol/L Potassium 5.5 (H) 3.5 - 5.3 mmol/L Chloride 100 98 - 107 mmol/L Bicarbonate 20 (L) 21 - 32 mmol/L Anion Gap 15 10 - 20 mmol/L Urea Nitrogen 16 6 - 23 mg/dL Creatinine 0.82 0.50 - 1.30 mg/dL eGFR >90 >60 mL/min/1.73m*2 Calcium 10.3 8.6 - 10.6 mg/dL Phosphorus 2.5 2.5 - 4.9 mg/dL Albumin 2.6 (L) 3.4 - 5.0 g/dL CBC Result Value Ref Range WBC 5.9 4.4 - 11.3 x10*3/uL nRBC 0.0 0.0 - 0.0 /100 WBCs RBC 3.94 (L) 4.50 - 5.90 x10*6/uL Hemoglobin 9.2 (L) 13.5 - 17.5 g/dL Hematocrit 27.9 (L) 41.0 - 52.0 % MCV 71 (L) 80 - 100 fL MCH 23.4 (L) 26.0 - 34.0 pg MCHC 33.0 32.0 - 36.0 g/dL RDW 16.1 (H) 11.5 - 14.5 % Platelets 236 150 - 450 x10*3/uL MPV 8.6 7.5 - 11.5 fL POCT GLUCOSE Result Value Ref Range POCT Glucose 192 (H) 74 - 99 mg/dL POCT GLUCOSE Result Value Ref Range POCT Glucose 140 (H) 74 - 99 mg/dL POCT GLUCOSE Result Value Ref Range POCT Glucose 143 (H) 74 - 99 mg/dL POCT GLUCOSE Result Value Ref Range POCT Glucose 189 (H) 74 - 99 mg/dL POCT GLUCOSE Result Value Ref Range POCT Glucose 230 (H) 74 - 99 mg/dL POCT GLUCOSE Result Value Ref Range POCT Glucose 231 (H) 74 - 99 mg/dL Renal Function Panel Result Value Ref Range Glucose 194 (H) 74 - 99 mg/dL Sodium 127 (L) 136 - 145 mmol/L Potassium 6.1 (HH) 3.5 - 5.3 mmol/L Chloride 99 98 - 107 mmol/L Bicarbonate 23 21 - 32 mmol/L Anion Gap 11 mmol/L Urea Nitrogen 11 6 - 23 mg/dL Creatinine 0.71 0.50 - 1.30 mg/dL eGFR >90 >60 mL/min/1.73m*2 Calcium 9.8 8.6 - 10.6 mg/dL Phosphorus 1.9 (L) 2.5 - 4.9 mg/dL Albumin 2.7 (L) 3.4 - 5.0 g/dL Magnesium Result Value Ref Range Magnesium 2.14 1.60 - 2.40 mg/dL Renal function panel Result Value Ref Range Glucose 114 (H) 74 - 99 mg/dL Sodium 129 (L) 136 - 145 mmol/L Potassium 4.6 3.5 - 5.3 mmol/L Chloride 100 98 - 107 mmol/L Bicarbonate 24 21 - 32 mmol/L Anion Gap 10 10 - 20 mmol/L Urea Nitrogen 10 6 - 23 mg/dL Creatinine 0.70 0.50 - 1.30 mg/dL eGFR >90 >60 mL/min/1.73m*2 Calcium 9.8 8.6 - 10.6 mg/dL Phosphorus 1.7 (L) 2.5 - 4.9 mg/dL Albumin 2.6 (L) 3.4 - 5.0 g/dL POCT GLUCOSE Result Value Ref Range POCT Glucose 114 (H) 74 - 99 mg/dL POCT GLUCOSE Result Value Ref Range POCT Glucose 115 (H) 74 - 99 mg/dL CBC Result Value Ref Range WBC 7.9 4.4 - 11.3 x10*3/uL nRBC 0.0 0.0 - 0.0 /100 WBCs RBC 4.14 (L) 4.50 - 5.90 x10*6/uL Hemoglobin 9.7 (L) 13.5 - 17.5 g/dL Hematocrit 29.1 (L) 41.0 - 52.0 % MCV 70 (L) 80 - 100 fL MCH 23.4 (L) 26.0 - 34.0 pg MCHC 33.3 32.0 - 36.0 g/dL RDW 16.1 (H) 11.5 - 14.5 % Platelets 249 150 - 450 x10*3/uL MPV 9.2 7.5 - 11.5 fL Tacrolimus level Result Value Ref Range Tacrolimus 10.5 <=15.0 ng/mL POCT GLUCOSE Result Value Ref Range POCT Glucose 138 (H) 74 - 99 mg/dL POCT GLUCOSE Result Value Ref Range POCT Glucose 129 (H) 74 - 99 mg/dL POCT GLUCOSE Result Value Ref Range POCT Glucose 132 (H) 74 - 99 mg/dL CBC Result Value Ref Range WBC 5.9 4.4 - 11.3 x10*3/uL nRBC 0.0 0.0 - 0.0 /100 WBCs RBC 4.05 (L) 4.50 - 5.90 x10*6/uL Hemoglobin 9.4 (L) 13.5 - 17.5 g/dL Hematocrit 30.4 (L) 41.0 - 52.0 % MCV 75 (L) 80 - 100 fL MCH 23.2 (L) 26.0 - 34.0 pg MCHC 30.9 (L) 32.0 - 36.0 g/dL RDW 16.7 (H) 11.5 - 14.5 % Platelets 240 150 - 450 x10*3/uL Magnesium Result Value Ref Range Magnesium 1.56 (L) 1.60 - 2.40 mg/dL Basic Metabolic Panel Result Value Ref Range Glucose 112 (H) 74 - 99 mg/dL Sodium 130 (L) 136 - 145 mmol/L Potassium 4.7 3.5 - 5.3 mmol/L Chloride 99 98 - 107 mmol/L Bicarbonate 26 21 - 32 mmol/L Anion Gap 10 10 - 20 mmol/L Urea Nitrogen 9 6 - 23 mg/dL Creatinine 0.68 0.50 - 1.30 mg/dL eGFR >90 >60 mL/min/1.73m*2 Calcium 9.6 8.6 - 10.6 mg/dL Tacrolimus level Result Value Ref Range Tacrolimus 13.4 <=15.0 ng/mL Phosphorus Result Value Ref Range Phosphorus 3.0 2.5 - 4.9 mg/dL Type and screen Result Value Ref Range ABO TYPE A Rh TYPE POS ANTIBODY SCREEN NEG Coagulation Screen Result Value Ref Range Protime 11.4 9.8 - 12.8 seconds INR 1.0 0.9 - 1.1 aPTT 27 27 - 38 seconds CBC Result Value Ref Range WBC 6.4 4.4 - 11.3 x10*3/uL nRBC 0.0 0.0 - 0.0 /100 WBCs RBC 3.96 (L) 4.50 - 5.90 x10*6/uL Hemoglobin 9.2 (L) 13.5 - 17.5 g/dL Hematocrit 28.3 (L) 41.0 - 52.0 % MCV 72 (L) 80 - 100 fL MCH 23.2 (L) 26.0 - 34.0 pg MCHC 32.5 32.0 - 36.0 g/dL RDW 16.4 (H) 11.5 - 14.5 % Platelets 259 150 - 450 x10*3/uL Magnesium Result Value Ref Range Magnesium 2.01 1.60 - 2.40 mg/dL Basic Metabolic Panel Result Value Ref Range Glucose 108 (H) 74 - 99 mg/dL Sodium 132 (L) 136 - 145 mmol/L Potassium 4.6 3.5 - 5.3 mmol/L Chloride 100 98 - 107 mmol/L Bicarbonate 26 21 - 32 mmol/L Anion Gap 11 10 - 20 mmol/L Urea Nitrogen 8 6 - 23 mg/dL Creatinine 0.70 0.50 - 1.30 mg/dL eGFR >90 >60 mL/min/1.73m*2 Calcium 9.6 8.6 - 10.6 mg/dL Tacrolimus level Result Value Ref Range Tacrolimus 15.0 <=15.0 ng/mL Phosphorus Result Value Ref Range Phosphorus 2.3 (L) 2.5 - 4.9 mg/dL Assessment/Plan Jagruti Esparza is a 67 y.o. male presenting with hx of kidney transplant (08/04/2012), A. Flutter, HTN, obesity, transferred from [facility] with concern for complicated diverticulitis and pericolonic abscess. IR drain was placed in LLQ on 01/11. He underwent laparoscopic sigmoid resection with creation of end colostomy and repair of umbilical hernia on 01/[address] Vasquez. Bowers was placed intra-operatively. Urology consulted for low UOP overnight despite Bowers being replaced, bladder scan >900 cc. Bowers manually irrigated with NS, with easy return of clear yellow urine. - No acute urologic intervention - Bowers appears to be in the correct position and working properly - Please note that bladder scans can easily mistaken pelvic fluid collections and ascites as full bladders - RBUS shows decompressed bladder with Bowers balloon in place Discussed with chief Dr. Cantor. Gisela Carpio MD PhD Urology PGY4 [id number] (Adult) [phone] (Peds) * Nhi Valiente RN - 01/14/2023 6:16 PM EDT Wound Care Consult Visit Date: 01/14/2023 Patient Name: Jagruti Esparza Date of : 1955 Reason for Consult: Preoperative education and marking Wound History: Patient scheduled for surgery tomorrow with Dr. Vasquez Pertinent Labs: Albumin Date Value Ref Range Status 01/13/2023 2.6 (L) 3.4 - 5.0 g/dL Final Marked all 4 quadrants for possible ileostomy or colostomy. Marked with black permanent marker on flat part of abd visible while sitting. Reviewed basic GI function and basic ostomy care. Showed sample pouch. Gave and reviewed booklet Preparing for Ostomy Surgery . Patient reaction: Patient's at bedside and listened to education closely. Both asked appropriate questions. 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 Talked about precut pouches and other techniques to care for stoma. States he would not want home care if he were to go home with stoma. Plan: will follow if stoma placed. Nhi Valiente MSN, RN, CWCN, COCN 01/14/2023 6:16 PM * Zenaida Hutson RDN, LD - 01/14/2023 11:44 AM EDT Nutrition Assessment Nutrition Initial Assessment: Reason for Assessment: Provider consult order (verbal consult during rounding) Patient is a 67 y.o. male presenting as a transfer from [facility] ED with CT A/P evidence of mid-transverse colon thickening, complicated diverticulitis, and a pericolonic abscess. He had an IR drain in left lower quadrant placed 01/11/2023. Per MD, culture pending but currently growing E. coli and other bugs. Nutrition History: Pt endorses having a good appetite and was eating well at home. He states he is unsure of any weight loss however does endorse having poor intake over the last week as he has not been able to eat solid food. He does not take any nutrition supplements at home and would rather of starvation than to drink Ensure. Anthropometrics: Height: 175.3 cm (5' 9.02 ) Weight: 94.8 kg (209 lb) BMI (Calculated): 30.85 IBW/kg (Dietitian Calculated): 72.7 kg Percent of IBW: 130 % Objective/Subjective Weight History: Wt Readings from Last 10 Encounters: 01/14/23 94.8 kg (209 lb) 03/27/22 92.5 kg (204 lb) 07/11/21 92.5 kg (204 lb) Weight Change %: Weight has been documented at 94.8kg since admission. Nutrition Focused Physical Exam Findings: Full assessment not completed d/t pt's current status (s/p IR drain, abscess) Subcutaneous Fat Loss: Orbital Fat Pads: Mild-Moderate (slight dark circles and slight hollowing) Buccal Fat Pads: Well nourished (full, rounded cheeks) Triceps: Defer Ribs: Defer Muscle Wasting: Temporalis: Mild-Moderate (slight depression) Pectoralis (Clavicular Region): Mild-Moderate (some protrusion of clavicle) Deltoid/Trapezius: Well nourished (rounded appearance at arm, shoulder, neck) Interosseous: Well nourished (muscle bulges) Trapezius/Infraspinatus/Supraspinatus (Scapular Region): Defer Quadriceps: Defer Gastrocnemius: Defer Edema: Edema: +2 mild Edema Location: generalized Physical Findings: Skin: Negative (excortation to abd folds) Objective Data: Nutrition Significant Labs: Gluc 112, Na 130, Mg 1.56 Nutrition Specific Mediations: D5/NaCl and D10W I/O: Intake/Output Summary (Last 24 hours) at 01/14/2023 1137 Last data filed at 01/14/2023 1005 Gross per 24 hour Intake 1670 ml Output 680 ml Net 990 ml Dietary Orders (From admission, onward) Start Ordered 01/14/23 0845 Adult diet Low fiber Diet effective now Question: Diet type Answer: Low fiber 01/14/23 0844 01/14/23 0843 Oral nutritional supplements Until discontinued Question Answer Comment Deliver with All meals Select supplement: Product from home - please specify Additional Details Ensure surgery 01/14/23 0843 Estimated Needs: Total Energy Estimated Needs (kCal): 2068 kCal Method for Estimating Needs: mifflin (AF 1.2) Daily energy needs range 5548-9355 kcal Total Protein Estimated Needs (g): 87 gTotal Protein Estimated Needs (g/kg): 1.2 g/kg Method for Estimating Needs: g/kg IBW Daily protein needs range: 87-109g (1.2-1.5g/kg IBW) Total Fluid Estimated Needs (mL): 2068 mL (or per MD) Method for Estimating Needs: 1ml/kcal or per MD Nutrition Diagnosis Nutrition Diagnosis: Malnutrition Diagnosis Patient has Malnutrition Diagnosis: Yes Diagnosis Status: New Malnutrition Diagnosis: Moderate malnutrition related to acute disease or injury As Evidenced by: mild fat loss/ muscle wasting, mild fluid accumulation, inadequate energy intake (<75% for > 7 days) Nutrition Interventions/Recommendations Nutrition Interventions and Recommendations: Nutrition Prescription: Continue low fiber diet as tolerated Recommend discontinuing PO supplements d/t pt refusal Though pt would benefit from PO supplement, he is declining at this time. Continue to encourage PO intake. Suspect intake/nutrition status to improve d/t recent diet advancement. Nutrition Prescription Goals: Food and/or Nutrient Delivery Interventions Interventions: Meals and snacks Meals and Snacks: General healthful diet Goal: consume > 75% x 2 meal/day Nutrition Education: Pt declined PO supplement. Denied having any questions or concerns. Nutrition Monitoring and Evaluation Monitoring/Evaluation: Food/Nutrient Related History Monitoring Monitoring and Evaluation Plan: Energy intake Energy Intake: Estimated energy intake Criteria: consume > 75% of estimated energy needs Body Composition/Growth/Weight History Monitoring and Evaluation Plan: Weight change, Weight Weight: Measured weight Criteria: maintian weight Biochemical Data, Medical Tests and Procedures Monitoring and Evaluation Plan: Electrolyte/renal panel, Glucose/endocrine profile Electrolyte and Renal Panel: Potassium, Phosphorus, Magnesium Criteria: labs WNL Time Spent/Follow-up Reminder: Follow Up Time Spent (min): 60 minutes Last Date of Nutrition Visit: 01/14/23 Nutrition Follow-Up Needed?: Dietitian to reassess per policy Follow up Comment: pt refuses all nutrition supplements * Senthil Gonzalez MD - 01/10/2023 2:30 PM EDTAssociated Order(s): IP CONSULT TO NEPHROLOGY Reason For Consult Kidney transplant status and management of immunosuppression. History Of Present Illness Jagruti Esparza is a 67 y.o. male presenting with perforated colon 2/2 diverticulitis as a transfer from [facility] ED, PMHx AFlutter (on Flecainide), kidney transplant (08/04/12), HTN, obesity. He has a history of kidney transplant from a living unrelated donor, with the baseline serum creatinine of less than 1.0 mg/dL. He reports taking his mycophenolate mofetil 750 mg twice a day, tacrolimus 1.5 mg twice a day, prednisone 5 mg a day. His mycophenolate mofetil and tacrolimus are branded C ellCept and Prograf respectively. His sodium level was reportedly 118 at outside hospital and it isimproved at 123. He is NPO currently. Past Medical History He has no past medical history on file. Surgical History He has a past surgical history that includes Other surgical history (12/25/2020); Other surgical history (12/25/2020); Other surgical history (12/25/2020); Other surgical history (12/25/2020); Other surgical history (12/25/2020); and Other surgical history (07/11/2021). Social History He reports that he has never smoked. He has never used smokeless tobacco. He reports that he does not currently use alcohol. He reports that he does not use drugs. Family History No family history on file. Allergies Cephalexin, Tobramycin, Meperidine, Erythromycin, and Penicillins Physical Exam Gen: resting in bed, no acute distress Skin: Warm, dry, no rashes HEENT: Neck supple, atraumatic Resp: non-labored breathing Card: Regular rate and rhythm on radial pulse Abdomen: Soft, non-distended, epigastric tenderness present. Umbilical hernia and hydrocele present. Extremities: No cyanosis, no peripheral edema, RUE fistula present. RUE AVF with good thrill. Neuro: Alert and oriented x 3, CN II-XII grossly intact, moves all extremities spontaneously Psych: Appropriate mood and affect Last Recorded Vitals Blood pressure 165/72, pulse 79, temperature 36.4 C (97.5 F), temperature source Temporal, resp. rate 16, height 1.753 m (5' 9 ), weight 94.8 kg (209 lb), SpO2 98 %. Relevant Results Results for orders placed or performed during the hospital encounter of 01/10/23 (from the past 24 hour(s)) CBC Result Value Ref Range WBC 12.2 (H) 4.4 - 11.3 x10*3/uL nRBC 0.0 0.0 - 0.0 /100 WBCs RBC 4.54 4.50 - 5.90 x10*6/uL Hemoglobin 10.6 (L) 13.5 - 17.5 g/dL Hematocrit 32.9 (L) 41.0 - 52.0 % MCV 73 (L) 80 - 100 fL MCH 23.3 (L) 26.0 - 34.0 pg MCHC 32.2 32.0 - 36.0 g/dL RDW 16.2 (H) 11.5 - 14.5 % Platelets 260 150 - 450 x10*3/uL MPV 8.6 7.5 - 11.5 fL Comprehensive Metabolic Panel Result Value Ref Range Glucose 50 (LL) 74 - 99 mg/dL Sodium 123 (L) 136 - 145 mmol/L Potassium 4.5 3.5 - 5.3 mmol/L Chloride 92 (L) 98 - 107 mmol/L Bicarbonate 19 (L) 21 - 32 mmol/L Anion Gap 17 mmol/L Urea Nitrogen 11 6 - 23 mg/dL Creatinine 0.64 0.50 - 1.30 mg/dL eGFR >90 >60 mL/min/1.73m*2 Calcium 9.9 8.6 - 10.6 mg/dL Albumin 3.1 (L) 3.4 - 5.0 g/dL Alkaline Phosphatase 55 33 - 136 U/L Total Protein 5.7 (L) 6.4 - 8.2 g/dL AST 9 9 - 39 U/L Bilirubin, Total 0.7 0.0 - 1.2 mg/dL ALT 7 (L) 10 - 52 U/L Coagulation Screen Result Value Ref Range Protime 13.0 (H) 9.8 - 12.8 seconds INR 1.2 (H) 0.9 - 1.1 aPTT 27 27 - 38 seconds Type and screen Result Value Ref Range ABO TYPE A Rh TYPE POS ANTIBODY SCREEN NEG POCT GLUCOSE Result Value Ref Range POCT Glucose 76 74 - 99 mg/dL Assessment/Plan Excellent renal allograft function. Hyponatremia. Restart his home tacrolimus at 1.5 mg twice a day, patient prefers branded Prograf and wants to take his own medication. Obtain tacrolimus trough level in the morning. Restart his prednisone 5 mg daily. Hold his mycophenolate for now in the setting of intra- abdominal abscess. Will monitor his sodium level. Expect it to improve with ringer lactate and NPO status. Senthil Gonzalez MD documented in this [facility] Work Phone: [phone] 490-687711-05-2023 Plan of care note* Care Plan - Karime Grimm RN - 01/17/2023 9:31 PM EST The patient's goals for the shift include rest The clinical goals for the shift include patient will have adequate output this shift [facility] Work Phone: [phone] 500-494711-05-2023 Consult note* Cherise Quach RN - 01/17/2023 11:33 AM EST Vascular Access Team Consult Visit Date: 01/17/2023 Patient Name: Jagruti Esparza Reason for Consult: Midline Assessment: Midline placed on 01/14/23. Device remains in place, unable to place new device for lab draws. Ordering provider notified. Plan: Cancel order, alternative treatment needed. Cherise Quach RN 01/17/2023 11:33 AM [facility] Work Phone: [phone] Nurse Note* Richardson Canales RN - 01/17/2023 10:52 AM EST Attempted STAT blood draw without success. Notified charge and material control supervisor. As per Charge, phlebotomy department may or may not be able to show up today to assist with blood draws. Notified MD. [facility]11-05-2023 NoteLimited evaluation due to body habitus and overlying bowel gas. Within those limitations: 1. Borderline elevated peak systolic velocity of the main renal artery (201.6 centimeter/second at the anastomosis), with gradient seen at the anastomosis and hilum (87.5 centimeter/second). 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 Recommend continued attention on follow-up. 2. Elevated renal transplant RI's, which can be seen in obstructive uropathy versus chronic rejection. 3. No evidence of transplant kidney hydronephrosis or perinephric fluid collections. 4. Unremarkable ultrasound and Doppler evaluation of the transplant kidney as detailed above I personally reviewed the images/study and I agree with the findings as stated. This study was interpreted at [facility], [place], [place]. MACRO: None Signed by: Julio César Ogden 01/17/2023 6:42 AM Dictation workstation: [id number] Plan of care note* Care Plan - Karime Grimm RN - 01/17/2023 2:13 AM EST The patient's goals for the shift include rest The clinical goals for the shift include patient will have adequate output this shift [facility] Work Phone: [phone] [phone] Plan of care note* Care Plan - Karime Grimm RN - 01/16/2023 10:26 PM EDT The patient's goals for the shift include rest The clinical goals for the shift include patient will remain free from injury this shift [facility] Work Phone: [phone] 912-765211-04-2023 Plan of care note* Care Plan - Karime Grimm RN - 01/16/2023 8:36 PM EDT The patient's goals for the shift include rest The clinical goals for the shift include patient will remain free from injury this shift [facility] Work Phone: [phone] Nurse Note* Richardson Canales RN - 01/16/2023 10:16 AM EDT Low urine output. notified. Order to remove and replace bowers in. Removed and replaced bowers using sterile technique. No complaints from patient during insertion. Small amount of urine output on insertion. Bladder scan showed 1135 mL. See MD orders. [facility] Work Phone: [phone] Consult note* Gisela Carpio MD PhD - 01/16/2023 9:58 AM EDTAssociated Order(s): IP CONSULT TO UROLOGY Reason For Consult Bladder scan 900 ml despite Bowers in place History Of Present Illness Jagruti Esparza is a 67 y.o. male presenting with hx of kidney transplant (08/04/2012), A. Flutter, HTN, obesity, transferred from [facility] with concern for complicated diverticulitis and pericolonic abscess. IR drain was placed in LLQ on 01/11. He underwent laparoscopic sigmoid resection with creation of end colostomy and repair of umbilical hernia on 01/[address] Vasquez. Urology consulted for low UOP overnight despite Bowers being replaced and bladder scan >900 ml. Patient endorses discomfort in the LLQ and feeling very full. Past Medical History He has a past medical history of PONV (postoperative nausea and vomiting). Surgical History He has a past surgical history that includes Other surgical history (12/25/2020); Other surgical history (12/25/2020); Other surgical history (12/25/2020); Other surgical history (12/25/2020); Other surgical history (12/25/2020); Other surgical history (07/11/2021); and CT guided imaging for abscess drain (01/11/2023). Social History He reports that he has never smoked. He has never used smokeless tobacco. He reports that he does not currently use alcohol. He reports that he does not use drugs. Family History No family history on file. Allergies Cephalexin, Tobramycin, Meperidine, Erythromycin, and Penicillins Review of Systems Denies suprapubic discomfort, penile pain Denies N/V ROS otherwise negative unless specified in HPI Physical Exam GEN: Alert and conversant; no acute distress HEENT: NCAT; moist mucus membranes EYES: Sclera anicteric, EOMI PULM: Symmetric chest rise, no increased work of breathing on room air, no respiratory distress CV: Regular rate and rhythm ABD: Soft, appropriately tender. Ostomy pink with bowel sweat. CHRISTIANO SS. : 16F Bowers, draining clear dark yellow urine, flushed easily with clear yellow urine return, unable to palpate bladder. Significant scrotal edema. MSK: Moving all extremities spontaneously and to command EXTR: No joint swelling, moderate peripheral edema SKIN: Warm, dry, well-perfused NEURO: A&O x 3, no focal neurologic deficits PSYCH: Appropriate mood and affect Last Recorded Vitals Blood pressure 160/64, pulse 76, temperature 36.6 C (97.9 F), temperature source Temporal, resp. rate 16, height 1.753 m (5' 9 ), weight 93 kg (205 lb), SpO2 95 %. Relevant Results Results for orders placed or performed during the hospital encounter of 01/10/23 (from the past 96 hour(s)) Magnesium Result Value Ref Range Magnesium 1.73 1.60 - 2.40 mg/dL Renal Function Panel Result Value Ref Range Glucose 117 (H) 74 - 99 mg/dL Sodium 129 (L) 136 - 145 mmol/L Potassium 5.5 (H) 3.5 - 5.3 mmol/L Chloride 100 98 - 107 mmol/L Bicarbonate 20 (L) 21 - 32 mmol/L Anion Gap 15 10 - 20 mmol/L Urea Nitrogen 16 6 - 23 mg/dL Creatinine 0.82 0.50 - 1.30 mg/dL eGFR >90 >60 mL/min/1.73m*2 Calcium 10.3 8.6 - 10.6 mg/dL Phosphorus 2.5 2.5 - 4.9 mg/dL Albumin 2.6 (L) 3.4 - 5.0 g/dL CBC Result Value Ref Range WBC 5.9 4.4 - 11.3 x10*3/uL nRBC 0.0 0.0 - 0.0 /100 WBCs RBC 3.94 (L) 4.50 - 5.90 x10*6/uL Hemoglobin 9.2 (L) 13.5 - 17.5 g/dL Hematocrit 27.9 (L) 41.0 - 52.0 % MCV 71 (L) 80 - 100 fL MCH 23.4 (L) 26.0 - 34.0 pg MCHC 33.0 32.0 - 36.0 g/dL RDW 16.1 (H) 11.5 - 14.5 % Platelets 236 150 - 450 x10*3/uL MPV 8.6 7.5 - 11.5 fL POCT GLUCOSE Result Value Ref Range POCT Glucose 192 (H) 74 - 99 mg/dL POCT GLUCOSE Result Value Ref Range POCT Glucose 140 (H) 74 - 99 mg/dL POCT GLUCOSE Result Value Ref Range POCT Glucose 143 (H) 74 - 99 mg/dL POCT GLUCOSE Result Value Ref Range POCT Glucose 189 (H) 74 - 99 mg/dL POCT GLUCOSE Result Value Ref Range POCT Glucose 230 (H) 74 - 99 mg/dL POCT GLUCOSE Result Value Ref Range POCT Glucose 231 (H) 74 - 99 mg/dL Renal Function Panel Result Value Ref Range Glucose 194 (H) 74 - 99 mg/dL Sodium 127 (L) 136 - 145 mmol/L Potassium 6.1 (HH) 3.5 - 5.3 mmol/L Chloride 99 98 - 107 mmol/L Bicarbonate 23 21 - 32 mmol/L Anion Gap 11 mmol/L Urea Nitrogen 11 6 - 23 mg/dL Creatinine 0.71 0.50 - 1.30 mg/dL eGFR >90 >60 mL/min/1.73m*2 Calcium 9.8 8.6 - 10.6 mg/dL Phosphorus 1.9 (L) 2.5 - 4.9 mg/dL Albumin 2.7 (L) 3.4 - 5.0 g/dL Magnesium Result Value Ref Range Magnesium 2.14 1.60 - 2.40 mg/dL Renal function panel Result Value Ref Range Glucose 114 (H) 74 - 99 mg/dL Sodium 129 (L) 136 - 145 mmol/L Potassium 4.6 3.5 - 5.3 mmol/L Chloride 100 98 - 107 mmol/L Bicarbonate 24 21 - 32 mmol/L Anion Gap 10 10 - 20 mmol/L Urea Nitrogen 10 6 - 23 mg/dL Creatinine 0.70 0.50 - 1.30 mg/dL eGFR >90 >60 mL/min/1.73m*2 Calcium 9.8 8.6 - 10.6 mg/dL Phosphorus 1.7 (L) 2.5 - 4.9 mg/dL Albumin 2.6 (L) 3.4 - 5.0 g/dL POCT GLUCOSE Result Value Ref Range POCT Glucose 114 (H) 74 - 99 mg/dL POCT GLUCOSE Result Value Ref Range POCT Glucose 115 (H) 74 - 99 mg/dL CBC Result Value Ref Range WBC 7.9 4.4 - 11.3 x10*3/uL nRBC 0.0 0.0 - 0.0 /100 WBCs RBC 4.14 (L) 4.50 - 5.90 x10*6/uL Hemoglobin 9.7 (L) 13.5 - 17.5 g/dL Hematocrit 29.1 (L) 41.0 - 52.0 % MCV 70 (L) 80 - 100 fL MCH 23.4 (L) 26.0 - 34.0 pg MCHC 33.3 32.0 - 36.0 g/dL RDW 16.1 (H) 11.5 - 14.5 % Platelets 249 150 - 450 x10*3/uL MPV 9.2 7.5 - 11.5 fL Tacrolimus level Result Value Ref Range Tacrolimus 10.5 <=15.0 ng/mL POCT GLUCOSE Result Value Ref Range POCT Glucose 138 (H) 74 - 99 mg/dL POCT GLUCOSE Result Value Ref Range POCT Glucose 129 (H) 74 - 99 mg/dL POCT GLUCOSE Result Value Ref Range POCT Glucose 132 (H) 74 - 99 mg/dL CBC Result Value Ref Range WBC 5.9 4.4 - 11.3 x10*3/uL nRBC 0.0 0.0 - 0.0 /100 WBCs RBC 4.05 (L) 4.50 - 5.90 x10*6/uL Hemoglobin 9.4 (L) 13.5 - 17.5 g/dL Hematocrit 30.4 (L) 41.0 - 52.0 % MCV 75 (L) 80 - 100 fL MCH 23.2 (L) 26.0 - 34.0 pg MCHC 30.9 (L) 32.0 - 36.0 g/dL RDW 16.7 (H) 11.5 - 14.5 % Platelets 240 150 - 450 x10*3/uL Magnesium Result Value Ref Range Magnesium 1.56 (L) 1.60 - 2.40 mg/dL Basic Metabolic Panel Result Value Ref Range Glucose 112 (H) 74 - 99 mg/dL Sodium 130 (L) 136 - 145 mmol/L Potassium 4.7 3.5 - 5.3 mmol/L Chloride 99 98 - 107 mmol/L Bicarbonate 26 21 - 32 mmol/L Anion Gap 10 10 - 20 mmol/L Urea Nitrogen 9 6 - 23 mg/dL Creatinine 0.68 0.50 - 1.30 mg/dL eGFR >90 >60 mL/min/1.73m*2 Calcium 9.6 8.6 - 10.6 mg/dL Tacrolimus level Result Value Ref Range Tacrolimus 13.4 <=15.0 ng/mL Phosphorus Result Value Ref Range Phosphorus 3.0 2.5 - 4.9 mg/dL Type and screen Result Value Ref Range ABO TYPE A Rh TYPE POS ANTIBODY SCREEN NEG Coagulation Screen Result Value Ref Range Protime 11.4 9.8 - 12.8 seconds INR 1.0 0.9 - 1.1 aPTT 27 27 - 38 seconds CBC Result Value Ref Range WBC 6.4 4.4 - 11.3 x10*3/uL nRBC 0.0 0.0 - 0.0 /100 WBCs RBC 3.96 (L) 4.50 - 5.90 x10*6/uL Hemoglobin 9.2 (L) 13.5 - 17.5 g/dL Hematocrit 28.3 (L) 41.0 - 52.0 % MCV 72 (L) 80 - 100 fL MCH 23.2 (L) 26.0 - 34.0 pg MCHC 32.5 32.0 - 36.0 g/dL RDW 16.4 (H) 11.5 - 14.5 % Platelets 259 150 - 450 x10*3/uL Magnesium Result Value Ref Range Magnesium 2.01 1.60 - 2.40 mg/dL Basic Metabolic Panel Result Value Ref Range Glucose 108 (H) 74 - 99 mg/dL Sodium 132 (L) 136 - 145 mmol/L Potassium 4.6 3.5 - 5.3 mmol/L Chloride 100 98 - 107 mmol/L Bicarbonate 26 21 - 32 mmol/L Anion Gap 11 10 - 20 mmol/L Urea Nitrogen 8 6 - 23 mg/dL Creatinine 0.70 0.50 - 1.30 mg/dL eGFR >90 >60 mL/min/1.73m*2 Calcium 9.6 8.6 - 10.6 mg/dL Tacrolimus level Result Value Ref Range Tacrolimus 15.0 <=15.0 ng/mL Phosphorus Result Value Ref Range Phosphorus 2.3 (L) 2.5 - 4.9 mg/dL Assessment/Plan Jagruti Esparza is a 67 y.o. male presenting with hx of kidney transplant (08/04/2012), A. Flutter, HTN, obesity, transferred from [facility] with concern for complicated diverticulitis and pericolonic abscess. IR drain was placed in LLQ on 01/11. He underwent laparoscopic sigmoid resection with creation of end colostomy and repair of umbilical hernia on 01/[address] Vasquez. Bowers was placed intra-operatively. Urology consulted for low UOP overnight despite Bowers being replaced, bladder scan >900 cc. Bowers manually irrigated with NS, with easy return of clear yellow urine. - No acute urologic intervention - Bowers appears to be in the correct position and working properly - Please note that bladder scans can easily mistaken pelvic fluid collections and ascites as full bladders - RBUS shows decompressed bladder with Bowers balloon in place Discussed with chief Dr. Cantor. Gisela Carpio MD PhD Urology PGY4 [id number] (Adult) [id number] (Peds) [facility] Work Phone: [phone] Nurse Note* Karime Grimm RN - 01/16/2023 6:50 AM EDT Called the team regarding patient having 900 in bladder per bladder scan even with bowers. Output was only 225 over night. Team asked me to flush it I flushed with 60 ml with minimal return but no resistance or clots noted. [facility] Work Phone: [phone] Plan of care note* Care Plan - Karime Grimm RN - 01/16/2023 3:30 AM EDT The patient's goals for the shift include rest The clinical goals for the shift include patient will remain free from injury this shift [facility] Work Phone: [phone] 360-929311-04-2023 Plan of care note* Care Plan - Karime Grimm RN - 01/16/2023 2:23 AM EDT The patient's goals for the shift include rest The clinical goals for the shift include Pt will be safe anf HD stable overnight [facility] Work Phone: [phone]) 870-458111-03-2023 Note* Significant Event - Mery Jones MD - 01/15/2023 4:09 PM EDT Colorectal Surgery Postoperative Check Jagruti Esparza [id number] Assessment & Plan: 67 y.o. male who is POD 0 from Laparoscopic sigmoid resection with creation of end colostomy with Repair of umbilical hernia for diverticulitis. Neuro: Continue current pain regimen with oxy PRN and pain blocks by Acute pain service, IV dilaudid for breakthrough. Home ropinerol Resp: ICS Card: Continue diltiazem and flecainide, appreciate reccs from Dr. Hudson for perioperative optimization FEN: IVF @ LR 75 GI: CLD, protonix BID, ostomy nurse teaching (pt is refusing home care but has for support) /Renal: - Appreciate Transplant Nephrology recs - Daily AM tacrolimus level PRIOR to AM dose of tacrolimus - hold tac and cellcept - Continue prednisone - Bowers catheter MSK: PT Special - Continue lubricating eye drops PRN Heme/ID: AM labs Ppy: SQH, SCDs Dispo: Continue care on RNF. SUBJECTIVE Pain well controlled Nausea well controlled, has not vomited Ostomy pink and well perfused with scant blood in bag Voiding via bowers catheter - minimal yellow/red output Has not ambulated OBJECTIVE BP 169/68 (BP Location: Left arm, Patient Position: Lying) Pulse 76 Temp 36.7 C (98.1 F) (Temporal) Resp 18 Ht 1.753 m (5' 9 ) Wt 93 kg (205 lb) SpO2 98% BMI 30.27 kg/m Physical Exam: Gen: in no apparent distress, non-toxic, in no respiratory distress and acyanotic, alert, oriented to person, place, and time, afebrile, and with normal vitals Resp: has a normal respiratory effort Abd: Abdomen is soft, nontender, and nondistended. Laparoscopic incisions Skin: Warm and dry Mery Jones MD Pager [phone] [facility] Work Phone: [phone] Nurse Note* Richardson Canales RN - 01/15/2023 2:24 PM EDT Patient arrived from OR to unit. Patient on hospital bed. Patient has 3 lap sites without excessivebleeding to abdomen and new ostomy in the LLQ. Patient complains of pain but is drowsy and sleeps on and off. Patient is pale in color and has generalized edema. Patient has dressing where A-line wasremoved in OR. Family at bedside. Patient is AAOx4 and experiencing generalized weakness. [facility] Work Phone: [phone] Note* Op Note - Arslan Vasquez MD - 01/15/2023 8:48 AM EDT Resection Laparoscopy Large Intestine Operative Note Date: 01/10/2023 - 01/15/2023 OR Location: [facility] OR Name: Jagruti Esparza, : 1955, Age: 67 y.o., , Sex: male Diagnosis Pre-op Diagnosis * Diverticulitis [K57.92] Post-op Diagnosis * Diverticulitis [K57.92] Procedures Laparoscopic Sigmoid resection with creation of End colostomy Repair of periumbilical hernia. Surgeons * Arslan Vasquez - Primary Resident/Fellow/Other Waste/Materials Exchange Specialist: Surgeon(s) and Role: * Marc Alba MD - Resident - Assisting Procedure Summary Anesthesia: General ASA: III Anesthesia Staff: Anesthesiologist: Emeka Leslie MD C-AA: ALBERTINA Mendez; ALBERTINA Blount Estimated Blood Loss: 75mL Intra-op Medications: Medication Name Total Dose BUPivacaine HCl (Marcaine) 0.5 % (5 mg/mL) injection 9 mL dilTIAZem CD (Cardizem CD) 24 hr capsule 180 mg 180 mg enoxaparin (Lovenox) syringe 40 mg Cannot be calculated [id number] (Zosyn) IV 3.375 g 50 mL heparin (porcine) injection 5,000 Units 5,000 Units Anesthesia Record Intraprocedure I/O Totals Intake Ketamine 0.00 mL The total shown is the total volume documented since Anesthesia Start was filed. NaCl 0.9 % 300.00 mL Propofol Drip 0.00 mL The total shown is the total volume documented since Anesthesia Start was filed. Total Intake 300 mL Output Urine 295 mL Total Output 295 mL Net Net Volume 5 mL Specimen: ID Type Source Tests Collected by Time 1 : HERNIA SAC Tissue HERNIA SAC SURGICAL PATHOLOGY EXAM Arslan Vasquez MD 01/15/2023 0858 2 : SIGMOID COLON Tissue COLON - SIGMOID RESECTION SURGICAL PATHOLOGY EXAM Arslan Vasquez MD 01/15/2023 1105 Staff: Filler In: Hazel Hsu RN; Pradip Prabhakar RN Scrub Person: Samantha Swan; Vanita Figueredo Drains and/or Catheters: Closed/Suction Drain Left LLQ Other (Comment) 8 Fr. (Active) Site Description Other (Comment) 01/15/23 0233 Dressing Status Clean;Dry 01/15/23 0233 Drainage Appearance [place] tinged 01/12/23 0800 Status Open to gravity drainage 01/12/23 0800 Output (mL) 0 mL 01/14/23 2233 Intake (ml) 10 ml 01/14/23 1005 Colostomy Other LLQ (Active) Stomal Appliance 1 piece;Clean;Dry;Intact 01/15/23 1124 Peristomal Assessment Clean 01/15/23 1124 Treatment Other (Comment) 01/15/23 1124 Urethral Catheter Non-latex 16 Fr. (Active) Tourniquet Times: N/A Implants: N/A Findings: Plegmon noted in the mid abdomen with mid transverse colon small bowel loops and diseasedsigmoid performing collection. Very inflamed sigmoid colon. Indications: Jagruti Esparza is an 67 y.o. male who is having surgery for Diverticulitis [K57.92]. The patient was seen in the preoperative area. The risks, benefits, complications, treatment options, non-operative alternatives, expected recovery and outcomes were discussed with the patient. The possibilities of reaction to medication, pulmonary aspiration, injury to surrounding structures, bleeding, recurrent infection, the need for additional procedures, failure to diagnose a condition, and creating a complication requiring transfusion or operation were discussed with the patient. The patient concurred with the proposed plan, giving informed consent. The site of surgery was properly noted/marked if necessary per policy. The patient has been actively warmed in preoperative area. Preopera tive antibiotics have been ordered and given within 2 hours of incision. Venous thrombosis prophylaxis have been ordered including bilateral sequential compression devices and chemical prophylaxis Procedure Details: Patient was admitted to the operating room and placed supine on the operating table anesthesia was induced a Bowers catheter was placed his abdomen was shaved. His existing left midabdomen drain was cut off about 5 cm above the abdominal wall. The abdomen was then prepped and draped in a sterile fashion. A 3 cm incision was made in the periumbilical area. There was a noted umbilical hernia with hernia sac noted once into the subcutaneous tissues. The sac was dissected off thesurrounding subcutaneous fat and of the umbilicus. the hernia was then transected after the sac wasopened. Hernia sac was sent off as a pathology specimen. The defect in the fascia was identified and opened superiorly and inferiorly getting us access to the abdomen. An Beka small wound protectorwas then placed along with the airtight. A 12 mm trocar was then introduced through the And a 10 mm30 degree scope was introduced into the abdominal cavity inspection of the abdomen revealed a phlegmon noted on the abdominal wall with multiple loops of bowel surrounding this. It appeared that the mid transverse colon was draped down into this region along with the sigmoid colon omentum and smallbowel. 2 other ports were then placed both of which were 5 mm each and placed under direct vision. First 1 is in the right lower quadrant the other was in the right upper quadrant using a combinationof blunt and LigaSure dissection we were able to separate the transverse colon and the small bowel away from the phlegmonous changes created by the diseased sigmoid colon. There were multiple inflammatory adhesions that were from each other the transverse colon was then placed into the upper abdomen. We then turned attention to the dissecting the sigmoid colon off the pelvic sidewall. We did a lateral to medial dissection. the distal sigmoid appeared to be healthy. An aperture was created in the mesentery and an Endo CHAR 60 blue load stapler was applied across distal sigmoid. Required 2 firings of the stapler to completely transect the sigmoid colon. We continued with medialization of the sigmoid colon along with the descending colon. Dissection was taken up to the level of the splenic flexure. We did not do a mobilization of the splenic flexure. Once we had appropriate mobilization of the descending colon and sigmoid colon we utilized the LigaSure instrument to take the mesentery leading to the sigmoid colon. Some portions of the mesentery was inflamed and indurated however we were able to successfully transect this all the way up to the distal descending colon. We did not identify the ureter on the left side as the patient had a nonfunctional atrophic kidney. Upon completion of the colon mobilization, an aperture was created in the left upper quadrant and the previously marked site that would function as the stoma site. In doing so a disc of skin was removed and subcutaneous fat was the rectus fascia was identified and opened vertically the rectus abdominis muscle was split and the posterior sheath of the rectus abdominal was then opened vertically we then removed all of the laparoscopic ports including the midline port site and were able to extrac orporealized the disease bowel and an area that was soft and healthy the bowel was then transected along with its mesentery. There was good bleeding coming from the edges of the bowel. The bowel was then pulled through the abdominal wall at the stoma site and left to be matured. Patient's abdomen was then closed using a #1 none loop PDS stitch in [id number] fashion. The other port sites was stapled closed. The ostomy was matured using 3-0 chromic stitches. Complications: None; patient tolerated the procedure well. Disposition: PACU - hemodynamically stable. Condition: stable This procedure was not performed to treat colon cancer through resection Additional Details: n/a Attending Attestation: I was present and scrubbed for the entire procedure. Arslan Vasquez [facility] Work Phone: [phone] Consult note* Nhi Valiente RN - 01/14/2023 6:16 PM EDT Wound Care Consult Visit Date: 01/14/2023 Patient Name: Jagruti Esparza Date of : 1955 Reason for Consult: Preoperative education and marking Wound History: Patient scheduled for surgery tomorrow with Dr. Vasquez Pertinent Labs: Albumin Date Value Ref Range Status 01/13/2023 2.6 (L) 3.4 - 5.0 g/dL Final Marked all 4 quadrants for possible ileostomy or colostomy. Marked with black permanent marker on flat part of abd visible while sitting. Reviewed basic GI function and basic ostomy care. Showed sample pouch. Gave and reviewed booklet Preparing for Ostomy Surgery . Patient reaction: Patient's at bedside and listened to education closely. Both asked appropriate questions. 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 Talked about precut pouches and other techniques to care for stoma. States he would not want home care if he were to go home with stoma. Plan: will follow if stoma placed. Nhi Valiente, MSN, RN, CWCN, COCN 01/14/2023 6:16 PM [facility] Work Phone: [phone] Procedure note* Cherise Quach RN - 01/14/2023 5:17 PM EDT Vascular Access Team Procedure Note Visit Date: 01/14/2023 Patient Name: Jagruti Esparza Procedure:Discussed with patient the risks and benefits of procedure. Procedure performed using Modified Seldinger Technique and maximum sterility. Device placed without difficulty and is okay to useaccording to order indications. Cherise Quach RN 01/14/2023 5:17 PM [facility]11-02-2023 Procedure note* Cherise Quach RN - 01/14/2023 5:17 PM EDT Vascular Access Team Procedure Note Visit Date: 01/14/2023 Patient Name: Jagruti Esparza Procedure:Discussed with patient the risks and benefits of procedure. Procedure performed using Modified Seldinger Technique and maximum sterility. Device placed without difficulty and is okay to useaccording to order indications. Cherise Quach RN 01/14/2023 5:17 PM [facility] Work Phone: [phone] 330-608511-02-2023 Consult note* Zenaida Hutson RDN, LD - 01/14/2023 11:44 AM EDT Nutrition Assessment Nutrition Initial Assessment: Reason for Assessment: Provider consult order (verbal consult during rounding) Patient is a 67 y.o. male presenting as a transfer from [facility] ED with CT A/P evidence of mid-transverse colon thickening, complicated diverticulitis, and a pericolonic abscess. He had an IR drain in left lower quadrant placed 01/11/2023. Per MD, culture pending but currently growing E. coli and other bugs. Nutrition History: Pt endorses having a good appetite and was eating well at home. He states he is unsure of any weight loss however does endorse having poor intake over the last week as he has not been able to eat solid food. He does not take any nutrition supplements at home and would rather of starvation than to drink Ensure. Anthropometrics: Height: 175.3 cm (5' 9.02 ) Weight: 94.8 kg (209 lb) BMI (Calculated): 30.85 IBW/kg (Dietitian Calculated): 72.7 kg Percent of IBW: 130 % Objective/Subjective Weight History: Wt Readings from Last 10 Encounters: 01/14/23 94.8 kg (209 lb) 03/27/22 92.5 kg (204 lb) 07/11/21 92.5 kg (204 lb) Weight Change %: Weight has been documented at 94.8kg since admission. Nutrition Focused Physical Exam Findings: Full assessment not completed d/t pt's current status (s/p IR drain, abscess) Subcutaneous Fat Loss: Orbital Fat Pads: Mild-Moderate (slight dark circles and slight hollowing) Buccal Fat Pads: Well nourished (full, rounded cheeks) Triceps: Defer Ribs: Defer Muscle Wasting: Temporalis: Mild-Moderate (slight depression) Pectoralis (Clavicular Region): Mild-Moderate (some protrusion of clavicle) Deltoid/Trapezius: Well nourished (rounded appearance at arm, shoulder, neck) Interosseous: Well nourished (muscle bulges) Trapezius/Infraspinatus/Supraspinatus (Scapular Region): Defer Quadriceps: Defer Gastrocnemius: Defer Edema: Edema: +2 mild Edema Location: generalized Physical Findings: Skin: Negative (excortation to abd folds) Objective Data: Nutrition Significant Labs: Gluc 112, Na 130, Mg 1.56 Nutrition Specific Mediations: D5/NaCl and D10W I/O: Intake/Output Summary (Last 24 hours) at 01/14/2023 1137 Last data filed at 01/14/2023 1005 Gross per 24 hour Intake 1670 ml Output 680 ml Net 990 ml Dietary Orders (From admission, onward) Start Ordered 01/14/23 0845 Adult diet Low fiber Diet effective now Question: Diet type Answer: Low fiber 01/14/23 0844 01/14/23 0843 Oral nutritional supplements Until discontinued Question Answer Comment Deliver with All meals Select supplement: Product from home - please specify Additional Details Ensure surgery 01/14/23 0843 Estimated Needs: Total Energy Estimated Needs (kCal): 2068 kCal Method for Estimating Needs: mifflin (AF 1.2) Daily energy needs range 9534-8734 kcal Total Protein Estimated Needs (g): 87 gTotal Protein Estimated Needs (g/kg): 1.2 g/kg Method for Estimating Needs: g/kg IBW Daily protein needs range: 87-109g (1.2-1.5g/kg IBW) Total Fluid Estimated Needs (mL): 2068 mL (or per MD) Method for Estimating Needs: 1ml/kcal or per MD Nutrition Diagnosis Nutrition Diagnosis: Malnutrition Diagnosis Patient has Malnutrition Diagnosis: Yes Diagnosis Status: New Malnutrition Diagnosis: Moderate malnutrition related to acute disease or injury As Evidenced by: mild fat loss/ muscle wasting, mild fluid accumulation, inadequate energy intake (<75% for > 7 days) Nutrition Interventions/Recommendations Nutrition Interventions and Recommendations: Nutrition Prescription: Continue low fiber diet as tolerated Recommend discontinuing PO supplements d/t pt refusal Though pt would benefit from PO supplement, he is declining at this time. Continue to encourage PO intake. Suspect intake/nutrition status to improve d/t recent diet advancement. Nutrition Prescription Goals: Food and/or Nutrient Delivery Interventions Interventions: Meals and snacks Meals and Snacks: General healthful diet Goal: consume > 75% x 2 meal/day Nutrition Education: Pt declined PO supplement. Denied having any questions or concerns. Nutrition Monitoring and Evaluation Monitoring/Evaluation: Food/Nutrient Related History Monitoring Monitoring and Evaluation Plan: Energy intake Energy Intake: Estimated energy intake Criteria: consume > 75% of estimated energy needs Body Composition/Growth/Weight History Monitoring and Evaluation Plan: Weight change, Weight Weight: Measured weight Criteria: maintian weight Biochemical Data, Medical Tests and Procedures Monitoring and Evaluation Plan: Electrolyte/renal panel, Glucose/endocrine profile Electrolyte and Renal Panel: Potassium, Phosphorus, Magnesium Criteria: labs WNL Time Spent/Follow-up Reminder: Follow Up Time Spent (min): 60 minutes Last Date of Nutrition Visit: 01/14/23 Nutrition Follow-Up Needed?: Dietitian to reassess per policy Follow up Comment: pt refuses all nutrition supplements [facility]11-02-2023 Plan of care note* Care Plan - Ekaterina Barroso RN - 01/14/2023 11:04 AM EDT Problem: Skin Goal: Decreased wound size/increased tissue granulation at next dressing change Outcome: Progressing Goal: Participates in plan/prevention/treatment measures Outcome: Progressing Goal: Prevent/manage excess moisture Outcome: Progressing Goal: Prevent/minimize sheer/friction injuries Outcome: Progressing Goal: Promote/optimize nutrition Outcome: Progressing Goal: Promote skin healing Outcome: Progressing Problem: Pain Goal: Turns in bed with improved pain control throughout the shift Outcome: Progressing Goal: Walks with improved pain control throughout the shift Outcome: Progressing Goal: Performs ADL's with improved pain control throughout shift Outcome: Progressing Goal: Participates in PT with improved pain control throughout the shift Outcome: Progressing Goal: Free from opioid side effects throughout the shift Outcome: Progressing Goal: Free from acute confusion related to pain meds throughout the shift Outcome: Progressing Problem: Fall/Injury Goal: Not fall by end of shift Outcome: Met Goal: Be free from injury by end of the shift Outcome: Met Goal: Verbalize understanding of personal risk factors for fall in the hospital Outcome: Met Goal: Verbalize understanding of risk factor reduction measures to prevent injury from fall in the home Outcome: Met Goal: Use assistive devices by end of the shift Outcome: Met Goal: Pace activities to prevent fatigue by end of the shift Outcome: Met Problem: Pain Goal: My pain/discomfort is manageable Outcome: Progressing Problem: Daily Care Goal: Daily care needs are met Outcome: Progressing Problem: Psychosocial Needs Goal: Demonstrates ability to cope with hospitalization/illness Outcome: Progressing Goal: Collaborate with me, my family, and caregiver to identify my specific goals Outcome: Progressing The patient's goals for the shift include rest The clinical goals for the shift include Pt will continue to have good pain management A/O x4, VSS, room air, NSR on tele. at bedside who assists in care. Patient has adequate pain management with PRN as ordered. LLQ IR drain flushed Qshift, monitored output. All needs met, WCTM. [facility]10-31-2023 Plan of care note* Care Plan - Yogi Meier RN - 01/12/2023 6:44 PM EDT The patient's goals for the shift include rest The clinical goals for the shift include Pt will be HD stable overnight Over the shift, the patient did not make progress toward the following goals. Barriers to progression include. Recommendations to address these barriers include. [facility]10-30-2023 Plan of care note* Care Plan - Jessica Cabrera RN - 01/11/2023 1:50 PM EDT The patient's goals for the shift include Rest and Comfort The clinical goals for the shift include Pt will be HD stable and safe overnight Over the shift, the patient did not make progress toward the following goals. Barriers to progression include anxiety over medications. Recommendations to address these barriers include education regarding medication administration. [facility]10-30-2023 Note* Post-Procedure Note - Pa Blackwell MD - 01/11/2023 10:46 AM EDT Interventional Radiology Brief Postprocedure Note Attending: Dr. Chris Farrell Waste/Materials Exchange Specialist: Dr. Pa Blackwell Diagnosis: Diverticulitis with abscess formation Description of procedure: Patient was brought to the procedure area. Limited CT diagnostic scanningof the abdomen was performed, which demonstrated a multiloculated complex fluid collection in the left lower quadrant Subsequently the patient was prepped and draped in the usual sterile manner. Lidocaine was administered for local analgesia. Subsequently with a 5F Yueh, the fluid collection was accessed under CT guidance. The inner stylet was removed and a Garcia wire was advanced into the fluidcollection. A pigtail skater drain was subsequently placed. Fluid was aspirated for microbiology. Patient tolerated the procedure. Anesthesia: Local Complications: None Estimated Blood Loss: minimal Medications As of 01/11/23 1046 lactated Ringer's infusion (mL/hr) Total volume: 1,336.67 mL* *From user-documented volume Date/Time Rate/Dose/Volume Action 01/10/23 0648 50 mL/hr New Bag 1000 50 mL/hr - 200 mL Rate Verify 1345 50 mL/hr - 187.5 mL Rate Verify 1701 50 mL/hr - 150 mL Rate Verify 2150 50 mL/hr Rate Verify 01/11/23 0000 349.17 mL 0600 300 mL 0657 50 mL/hr Rate Verify 0900 50 mL/hr - 150 mL Rate Verify yledbiwutpjp-imffrqcbql-lvqkvkum (Zosyn) IV 3.375 g (g) Total dose: Cannot be calculated* *Administration dose not documented Date/Time Rate/Dose/Volume Action 01/10/23 Canceled Entry ylqqklworwmk-rwqotpvgzf-yuvdyfsv (Zosyn) IV 3.375 g (mL/hr) Total dose: 16.88 g* *From user-documented volume Date/Time Rate/Dose/Volume Action 01/10/23 0445 3.375 g - 100 mL/hr (over 30 min) New Bag 0515 50 mL Stopped 1057 3.375 g - 100 mL/hr (over 30 min) - 50 mL New Bag 1127 (over 30 min) Stopped 1631 3.375 g - 100 mL/hr (over 30 min) New Bag 1701 (over 30 min) Stopped 2200 3.375 g - 100 mL/hr (over 30 min) New Bag 2230 (over 30 min) Stopped 01/11/23 0443 3.375 g - 100 mL/hr (over 30 min) - 150 mL New Bag 0513 (over 30 min) Stopped enoxaparin (Lovenox) syringe 40 mg (mg) Total dose: 40 mg Dosing weight: 94.8 Date/Time Rate/Dose/Volume Action 01/10/23 215 40 mg Given 01/11/23 0901 *Not included in total Held by provider dilTIAZem XR (Dilacor XR) 24 hr capsule 180 mg (mg) Total dose: 180 mg Dosing weight: 94.8 Date/Time Rate/Dose/Volume Action 01/10/23 1100 180 mg Given pantoprazole (ProtoNix) EC tablet 20 mg (mg) Total dose: 60 mg Dosing weight: 94.8 Date/Time Rate/Dose/Volume Action 01/10/23 1213 20 mg Given 2150 20 mg Given 01/11/23 0807 20 mg Given rOPINIRole (Requip) tablet 1 mg (mg) Total dose: 1 mg Dosing weight: 94.8 Date/Time Rate/Dose/Volume Action 01/10/23 215 1 mg Given tacrolimus (Prograf) capsule 1.5 mg (mg) Total volume: Not documented* Dosing weight: 94.8 *Total volume has not been documented. View each administration to see the amount administered. Date/Time Rate/Dose/Volume Action 01/10/23 1815 1.5 mg Given 01/11/23 0806 1.5 mg Given predniSONE (Deltasone) tablet 5 mg (mg) Total dose: 10 mg Dosing weight: 94.8 Date/Time Rate/Dose/Volume Action 01/10/23 1515 5 mg Given 01/11/23 0807 5 mg Given flecainide (Tambocor) tablet 50 mg (mg) Total dose: 100 mg Dosing weight: 94.8 Date/Time Rate/Dose/Volume Action 01/10/23 1815 50 mg Given 01/11/23 0202 50 mg Given fentaNYL PF (Sublimaze) injection (mcg) Total dose: 50 mcg Date/Time Rate/Dose/Volume Action 01/11/23 1027 50 mcg Given midazolam (Versed) injection (mg) Total dose: 1 mg Date/Time Rate/Dose/Volume Action 01/11/23 1027 1 mg Given A 8ml specimen of purulent fluid was collected and sent to pathology. See detailed result report with images in PACS. The patient tolerated the procedure well without incident or complication and is in stable condition. [facility] Work Phone: [phone]) 238-529910-30-2023 Note* Pre-Procedure Note - Pa Blackwell MD - 01/11/2023 9:34 AM EDT Interventional Radiology Preprocedure Note Indication for procedure: The encounter diagnosis was Diverticulitis. Relevant review of systems: NA Relevant Labs: Lab Results Component Value Date CREATININE 0.82 01/11/2023 EGFR >90 01/11/2023 INR 1.2 (H) 01/10/2023 PROTIME 13.0 (H) 01/10/2023 Planned Sedation/Anesthesia: Moderate Airway assessment: normal Directed physical examination: Patient is alert and oriented x3. Skin overlying the biopsy site appears intact. Mallampati: III (soft and hard palate and base of uvula visible) ASA Score: ASA 3 - Patient with moderate systemic disease with functional limitations Benefits, risks and alternatives of procedure and planned sedation have been discussed with the patient and/or their direct marketing representative. All questions answered and they agree to proceed. [facility] Work Phone: [phone]) 611-713010-29-2023 Consult note* Senthil Gonzalez MD - 01/10/2023 2:30 PM EDTAssociated Order(s): IP CONSULT TO NEPHROLOGY Reason For Consult Kidney transplant status and management of immunosuppression. History Of Present Illness Jagruti Esparza is a 67 y.o. male presenting with perforated colon 2/2 diverticulitis as a transfer from [facility] ED, PMHx AFlutter (on Flecainide), kidney transplant (08/04/12), HTN, obesity. He has a history of kidney transplant from a living unrelated donor, with the baseline serum creatinine of less than 1.0 mg/dL. He reports taking his mycophenolate mofetil 750 mg twice a day, tacrolimus 1.5 mg twice a day, prednisone 5 mg a day. His mycophenolate mofetil and tacrolimus are branded C ellCept and Prograf respectively. His sodium level was reportedly 118 at outside hospital and it isimproved at 123. He is NPO currently. Past Medical History He has no past medical history on file. Surgical History He has a past surgical history that includes Other surgical history (12/25/2020); Other surgical history (12/25/2020); Other surgical history (12/25/2020); Other surgical history (12/25/2020); Other surgical history (12/25/2020); and Other surgical history (07/11/2021). Social History He reports that he has never smoked. He has never used smokeless tobacco. He reports that he does not currently use alcohol. He reports that he does not use drugs. Family History No family history on file. Allergies Cephalexin, Tobramycin, Meperidine, Erythromycin, and Penicillins Physical Exam Gen: resting in bed, no acute distress Skin: Warm, dry, no rashes HEENT: Neck supple, atraumatic Resp: non-labored breathing Card: Regular rate and rhythm on radial pulse Abdomen: Soft, non-distended, epigastric tenderness present. Umbilical hernia and hydrocele present. Extremities: No cyanosis, no peripheral edema, RUE fistula present. RUE AVF with good thrill. Neuro: Alert and oriented x 3, CN II-XII grossly intact, moves all extremities spontaneously Psych: Appropriate mood and affect Last Recorded Vitals Blood pressure 165/72, pulse 79, temperature 36.4 C (97.5 F), temperature source Temporal, resp. rate 16, height 1.753 m (5' 9 ), weight 94.8 kg (209 lb), SpO2 98 %. Relevant Results Results for orders placed or performed during the hospital encounter of 01/10/23 (from the past 24 hour(s)) CBC Result Value Ref Range WBC 12.2 (H) 4.4 - 11.3 x10*3/uL nRBC 0.0 0.0 - 0.0 /100 WBCs RBC 4.54 4.50 - 5.90 x10*6/uL Hemoglobin 10.6 (L) 13.5 - 17.5 g/dL Hematocrit 32.9 (L) 41.0 - 52.0 % MCV 73 (L) 80 - 100 fL MCH 23.3 (L) 26.0 - 34.0 pg MCHC 32.2 32.0 - 36.0 g/dL RDW 16.2 (H) 11.5 - 14.5 % Platelets 260 150 - 450 x10*3/uL MPV 8.6 7.5 - 11.5 fL Comprehensive Metabolic Panel Result Value Ref Range Glucose 50 (LL) 74 - 99 mg/dL Sodium 123 (L) 136 - 145 mmol/L Potassium 4.5 3.5 - 5.3 mmol/L Chloride 92 (L) 98 - 107 mmol/L Bicarbonate 19 (L) 21 - 32 mmol/L Anion Gap 17 mmol/L Urea Nitrogen 11 6 - 23 mg/dL Creatinine 0.64 0.50 - 1.30 mg/dL eGFR >90 >60 mL/min/1.73m*2 Calcium 9.9 8.6 - 10.6 mg/dL Albumin 3.1 (L) 3.4 - 5.0 g/dL Alkaline Phosphatase 55 33 - 136 U/L Total Protein 5.7 (L) 6.4 - 8.2 g/dL AST 9 9 - 39 U/L Bilirubin, Total 0.7 0.0 - 1.2 mg/dL ALT 7 (L) 10 - 52 U/L Coagulation Screen Result Value Ref Range Protime 13.0 (H) 9.8 - 12.8 seconds INR 1.2 (H) 0.9 - 1.1 aPTT 27 27 - 38 seconds Type and screen Result Value Ref Range ABO TYPE A Rh TYPE POS ANTIBODY SCREEN NEG POCT GLUCOSE Result Value Ref Range POCT Glucose 76 74 - 99 mg/dL Assessment/Plan Excellent renal allograft function. Hyponatremia. Restart his home tacrolimus at 1.5 mg twice a day, patient prefers branded Prograf and wants to take his own medication. Obtain tacrolimus trough level in the morning. Restart his prednisone 5 mg daily. Hold his mycophenolate for now in the setting of intra- abdominal abscess. Will monitor his sodium level. Expect it to improve with ringer lactate and NPO status. Senthil Gonzalez MD [facility] Work Phone: [phone] Plan of care note* Care Plan - Jessica Cabrera RN - 01/10/2023 1:40 PM EDT The patient's goals for the shift include Rest and Comfort The clinical goals for the shift include ABX Therapy Over the shift, the patient did not make progress toward the following goals. Barriers to progression include anxiety for plan of care. Recommendations to address these barriers include education in regards to plan of care. [facility] Work Phone: [phone] Plan of care note* Care Plan - Nick Mijares RN - 01/10/2023 8:34 AM EDT Problem: Skin Goal: Decreased wound size/increased tissue granulation at next dressing change Outcome: Progressing Goal: Participates in plan/prevention/treatment measures Outcome: Progressing Goal: Prevent/manage excess moisture Outcome: Progressing Goal: Prevent/minimize sheer/friction injuries Outcome: Progressing Goal: Promote/optimize nutrition Outcome: Progressing Goal: Promote skin healing Outcome: Progressing Problem: Pain Goal: Takes deep breaths with improved pain control throughout the shift Outcome: Progressing Goal: Turns in bed with improved pain control throughout the shift Outcome: Progressing Goal: Walks with improved pain control throughout the shift Outcome: Progressing Goal: Performs ADL's with improved pain control throughout shift Outcome: Progressing Goal: Participates in PT with improved pain control throughout the shift Outcome: Progressing Goal: Free from opioid side effects throughout the shift Outcome: Progressing Goal: Free from acute confusion related to pain meds throughout the shift Outcome: Progressing Problem: Fall/Injury Goal: Not fall by end of shift Outcome: Progressing Goal: Be free from injury by end of the shift Outcome: Progressing Goal: Verbalize understanding of personal risk factors for fall in the hospital Outcome: Progressing Goal: Verbalize understanding of risk factor reduction measures to prevent injury from fall in the home Outcome: Progressing Goal: Use assistive devices by end of the shift Outcome: Progressing Goal: Pace activities to prevent fatigue by end of the shift Outcome: Progressing Problem: Pain Goal: My pain/discomfort is manageable Outcome: Progressing Problem: Safety Goal: Patient will be injury free during hospitalization Outcome: Progressing Goal: I will remain free of falls Outcome: Progressing Problem: Daily Care Goal: Daily care needs are met Outcome: Progressing Problem: Psychosocial Needs Goal: Demonstrates ability to cope with hospitalization/illness Outcome: Progressing Goal: Collaborate with me, my family, and caregiver to identify my specific goals Outcome: Progressing Flowsheets (Taken 01/10/2023 0653) Cultural Requests During Hospitalization: None Spiritual Requests During Hospitalization: None Problem: Discharge Barriers Goal: My discharge needs are met Outcome: Progressing The patient's goals for the shift include The clinical goals for the shift include Over the shift, the patient did not make progress toward the following goals. Barriers to progression include pain. Recommendations to address these barriers include MD Following. [facility] Work Phone: [phone] 911-858810-29-2023 Nurse Note* Nick Mijares RN - 01/10/2023 4:00 AM EDT Patient arrived to floor from [facility]. CR Team arrived to room shortly to assess patient. No immediate surgical orders given. Patient rating pain 3 out of 10, based on a pain scale of 1- 10. [facility] Work Phone: 1([phone]) [phone] Emergency department Note* Fabio Richter RN - 01/10/2023 3:10 AM EDT Report to transport. [id number] Emergency department Note* Fabio Richter RN - 01/10/2023 3:10 AM EDT Report to transport. * Fabio Richter RN - 01/10/2023 1:41 AM EDT [phone] * Filomena Rodriguez - 01/10/2023 12:23 AM EDT notified of critical SODIUM value of 118. Hard copy of results given to . * Julio Brown MD - 01/09/2023 11:30 PM EDT EGS, admit vs xfer 67 year old male AF, flecainide, remote renal xplant // went to [facility] with perforated diverticulitis // EGS recommends xfer to [facility] - they are talking to [facility] team // also has hyponatremia Above depicts sign out comments. ATTENDING NOTE I received this patient in signout. I agree with the resident's medical decision making performed after signout was received as documented in the residents note, if resident involved in case. Furthercomments are below as needed. I spoke with Dr. Valladares in person in the ED. He has called both [facility] and for possible transfer. Ultimately patient was accepted at . Remained stable here. Julio Brown MD * Annelise Herrmann, ROS - 01/09/2023 9:30 PM EDT notified of critical SODIUM value of 118. Hard copy of results given to Dr.LUKENS * Mercy Manriquez - 01/09/2023 4:[address] RIVERO notified of critical SODIUM value of 113. Hard copy of results given to Dr. RIVERO documented in this [id number] Emergency department Note* Fabio Richter, LOYD - 01/10/2023 1:41 AM EDT [phone] [id number] Emergency department Note* Filomena Rodriguez - 01/10/2023 12:23 AM EDT notified of critical SODIUM value of 118. Hard copy of results given to . [id number] Physician Emergency department Note* Julio Brown MD - 01/09/2023 11:30 PM EDT EGS, admit vs xfer 67 year old male AF, flecainide, remote renal xplant // went to [facility] with perforated diverticulitis // EGS recommends xfer to [facility] - they are talking to [facility] team // also has hyponatremia Above depicts sign out comments. ATTENDING NOTE I received this patient in signout. I agree with the resident's medical decision making performed after signout was received as documented in the residents note, if resident involved in case. Furthercomments are below as needed. I spoke with Dr. Valladares in person in the ED. He has called both [facility] and for possible transfer. Ultimately patient was accepted at . Remained stable here. Julio Brown MD [facility] Work Phone: [phone] History of Present illness Narrative* Sanju Gallardo RPh - 01/09/2023 10:12 PM EDT Pharmacist Reviewed Medication History Name: Jagruti Esparza : 1955 Admission Date: 01/09/2023 2:39 PM Allergies: Cephalexin, Tobramycin, Erythromycin, Meperidine, and Penicillin g Patient manages own medications: Yes 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 flecainide (TAMBOCOR) 50 MG tablet Take 50 mg by mouth 3 times daily. magnesium oxide (MAG-OX) 400 (240 Mg) MG TABS tablet Take 400 mg by mouth daily. CellCept 250 MG capsule Take 750 mg by mouth 2 times a day. Brandname product pantoprazole (PROTONIX) 20 MG tablet Take 20 mg by mouth 2 times a day. predniSONE (DELTASONE) 5 MG tablet Take 5 mg by mouth daily. rOPINIRole (REQUIP) 1 MG tablet Take 1 mg by mouth daily. Prograf 0.5 MG capsule Take 0.5 mg by mouth 2 times daily. Brandname product Prograf 1 MG capsule Take 1 mg by mouth 2 times a day. Brandname product Dilt-XR 180 MG XR capsule Take 180 mg by mouth daily. OTC/Herbal medications: as noted above Source of History: Family, Outside Hospital Records- Name [facility], and Care Everywhere Records Additional Comments: Of note patient takes brandname Prograf & Cellcept. Also patient takes a total of Prograf 1.5mg (1mg + 0.5mg) twice a day Sanju Gallardo RPh documented in this [id number] Emergency department Note* Annelise Herrmann, EMR - 01/09/2023 9:30 PM EDT notified of critical SODIUM value of 118. Hard copy of results given to [id number] Emergency department Note* Mercy Manriquez - 01/09/2023 4:[address] RIVERO notified of critical SODIUM value of 113. Hard copy of results given to Dr. RIVERO [id number] [facility] EMERGENCY GENERAL SURGERY CONSULTATION, HISTORY AND PHYSICAL Reason for consultation: perforated viscus Referring physician: Tomas HPI: PMH of renal transplant x2, transplant nephrectomy, prior PD, AVF in [facility] and recent diverticular bleed s/p massive transfusion (at [facility] in July 2022). He endorses 5 days of intermittent left sided abdominal pain and decreased appetite. He presented to [facility] earlier today, CT A/P read with sigmoid diverticulitis and pneumoperitoneum and concern for perforated sigmoid diverticulitis. Denies nausea or vomiting during this period; No fever, chills, CP SOB. Prior to transfer he has received 1 dose of flagyl and levaquin; also received 1L NS. At [facility], patient was afebrile, HR in the 80s, Bps first at 106/71 then second record was 168/78, on RA. Labs include WBC 12.8, Hgb 9.9, plt 231, Na 109,Cr 0.74, lactate 1.8. Here, WBC 11.5, Cr 0.63. Most recent BP 148/57, HR 88. In ED, CT A/P IV con was repeated due to malfunction of the disk the patient was sent with. PMH: There is no previous medical history on file. PSH: There is no previous surgical history on file. MEDS: Mycophenolate 250 mg capsule, 750 mg PO BID Prednisone 5 mg PO daily Ropinirole 1 mg PO HS, diltiazem 180 mg capsule XR (Dilt XR) 180 mg PO QAM Flecainide 50 mg PO TID Mag 400 PO daily Tacrolimus 0.5 mg PO Q12H Tacrolimus 1 mg capsule PO Q12H Pantoprazole 20 mg BID ALL: Amoxicillin, cephalexin, erythromycin, pennicllins, meperidine, tobramycin FH: denies history of bleeding or clotting disorders SH: Denies tobacco, ETOH, and drug use Review Of Systems: Skin: negative Eyes: negative review of symptoms Ears/Nose/Throat: negative Respiratory: negative symptoms (no cough, hemoptysis, SOB, ALEXANDER, PND, wheezing) Cardiovascular: negative symptoms (No CP/Pressure/Tightness, palpitations, orthopnea, PND, SOB, ALEXANDER, edema, TRENT or vision change) Gastrointestinal: positive symptoms (abdominal pain) Negative symptoms (no anorexia, n/v, indigestion, constipation, or diarrhea) Genitourinary: no urinary symptoms Neurologic: negative symptoms (no syncope, seizures, weakness, gait problems, numbness, burning pain, tremors, or memory loss) negative (no arthritic pain, no joint swelling, no muscle weakness) Psychiatric: negative (no sleep disturbance, anxiety, memory loss, disorientation, inattention, feelings of depression) Hematologic/Lymphatic/Immunologic: negative (no anemia, bleeding, bruising) Endocrine: negative review of symptoms PHYSICAL EXAM: VITALS: Vitals: 01/09/23 1800 BP: 148/57 Pulse: 76 Resp: 19 Temp: SpO2: 99% Physical Exam: Gen: NAD, lying in bed Neuro: awake, alert, oriented HENT: eyes open, nonicteric sclera, NC/AT Pulm: unlabored respirations on room air Cor: RRR Abd: soft, mildly-tender in the right upper and lower quadrants, subtly-distended, obese Skin: warm and dry, no rashes, no wounds MSK: moves all extremities Ext: RUE; AVF is aneurysmal at antecubital fossa LABS: CBC/PT/INR WBC RBC Hgb Hct MCV RDW Plt PT aPTT INR 01/09/23 1505 26 01/09/23 1505 1.11 01/09/23 1505 11.5 4.76 11.1 34.3 72 17.3 237 Basic Metabolic Panel Na K Cl CO2 Gap Glu BUN Cr Ca Mg PO4 01/09/23 1505 113 5.2 85 18 15 110 11 0.63 9.2 Arterial Blood Gases None IMAGING (personally reviewed by me): sigmoid diverticulitis with fat stranding, perforation, pneumoperitoneum. Single transplanted kidney in right iliac fossa. ASSESSMENT/RECOMMENDATIONS: Jagruti Esparza is a 67 year old male who presents with subacute abdominal pain from OSH where CT A/P revealed perforated sigmoid diverticulitis. Significant history of renal transplant x2 at [facility] with transplant nephrectomy and prior peritoneal dialysis. He is on three immunosuppressive medications for prior rejection. Imaging repeated here due to unavailable OSH images, confirming diagnosis. Exam at this time is perhaps falsely reassuring with mild tenderness on palpation, likely masked by his immunosuppressive medication regimen. Given the patient's complex transplant nephrology needs for the management of immunosuppression in the setting of prior rejection and present infection/need for surgery, the patient would be best served at [facility] for continuity of care and this specialization in order to best manage his perforated sigmoid diverticulitis. Recommend pursuing transfer to [facility] for further care given the above. Discussed with emergency general surgery fellow, Dr. Elizalde and attending, Dr. Blaine Carr MD, PhD Vascular Surgery, PGY2 Emergency General Surgery Teaching Physician Note: I saw and evaluated the patient. I personally obtained the florez and critical portions of the history and physical exam. I reviewed the resident's documentation and discussed the patient with the resident. I agree with the (more content not included)...[email or web address] [id number] Evaluation note* Encounter Date Diagnosis Assessment Notes Treatment Notes Treatment Clinical Notes Dec, Lung nodule (ICD-10 - R91.1) Dec, Kidney transplant status (ICD-10 - Z94.0) [facility] Other 09-05-2023 Evaluation note* Encounter Date Diagnosis Assessment Notes Treatment Notes Treatment Clinical Notes Nov, Kidney transplant status (ICD-10 - Z94.0) [facility] Other 07-13-2023 Evaluation note* Encounter Date Diagnosis Assessment Notes Treatment Notes Treatment Clinical Notes Sep, Kidney transplant status (ICD-10 - Z94.0) [facility] Other 06-20-2023 Evaluation note* Encounter Date Diagnosis Assessment Notes Treatment Notes Treatment Clinical Notes Aug, Kidney transplant status (ICD-10 - Z94.0) Patient still taking the same immunosuppressant Prograf, CellCept and prednisone along with Bactrim. Prograf level is 7.6 which is appropriate.I will continue same prografm dose Aug, Secondary hyperparathyroidism of renal origin (ICD-10 - N25.81) He has post transplant resistant second hyperparathyroidism. PTH 88. No need for active BD. total Ca level is 10.2 Aug, Hypertensive chronic kidney disease w stg 1-4/unsp chr kdny (ICD-10 - I12.9) I asked the patient to start hydralazine if BP remains > 150/90. 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 He was seen by Dr. Main and he is on observation only. Aug, Hyperlipidemia (ICD- 10 - E78.5) He is working on his weight as well. He did refuse statin because of side effects Aug, BMI 35.0-35.9,adult (ICD-10 - Z68.35) importance of weight loss was addressed. His weight is about the same over the last 6 months Aug, Atrial fibrillation, unspecified type (ICD-10 - I48.91) Patient is taking diltiazem. Heart rate is well controlled. Patient follows with Dr. Hankins Aug, Hypophosphatemia (ICD-10 - E83.39) Phos is slightly low at 2.9. Will start replacement Aug, Hypomagnesemia (ICD- 10 - E83.42) Mg is 1.4. Will increase Mg oxide 400 mg PO to BID Aug, Anemia, unspecified type (ICD-10 - D64.9) Patient has recent GI bleed from diverticulosis. Hgb 10.5 g/dl.Will check iron, VB12, and folate . 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) [facility] Other 04-17-2023 Discharge summary Author Stanley Le [facility] June 29, 2022 3:24pm Note Date/Time June 29, 2022 1:3 0pm [facility] [address] [place], [place] [id number] Discharge Summary Signed Patient: Jagruti Esparza MR#: [id number] : 1955 Acct:[id number] Age/Sex: 66 / M Adm Date: 3 Loc: Room: [address] [place] [address]: Stanley Le MD Copies to: MD Aishwarya Mejía II, MD~ Providers Date of Discharge: 06/29/22 Discharging Provider: Stanley Le Primary Care Provider: Aishwarya Lundy Consults: 06/25/22 18:45 Consult to Gastroenterology Routine 06/25/22 18:46 Consult to Nephrology Routine 06/26/22 09:59 Consult to Vascular Surgery Routine Discharge Diagnosis Final Diagnosis Final Discharge Diagnosis: Acute esophagitis with upper GI bleed and anemia of acute GI blood loss Chronic problems Renal allograft, immunosuppressed state Paroxysmal atrial fibrillation and flutter Diverticulosis Obsessive-compulsive personality disorder Summary Hospital Course Hospital course: Patient is a 66-year-old male, renal allograft recipient, immunosuppressed, who is transferred to us from inpatient [facility]. He presented on June 24with epigastric pain, and rectal bleeding. He was evaluated in valve ED, admitted to the floor there, and was subsequently transferred to our facility for further specialized care. The bleeding was thought initially to be diverticular. Patient was seen by gastroenterology.On the , she underwent upper and lower endoscopy. There was quite significant esophagitis in the mid esophagus. No active bleeding. Colonoscopy was remarkable for some 2 small polyps, which were not biopsied, again with no evidence of acute bleeding. Patient received a total of 4 units PRBC during the hospital stay. No complications occurred. He was discharged home in stable condition on June 29. He was followed by PCP and GI as outpatient. Medical therapy will be continuedas noted below. H2 blockers were replaced with PPI. Aspirin was held for now. Repeat CBC in 1 week. A note is made of the fact that the patient was seen by vascular surgery for a large aneurysmal right upper extremity fistula. Patient preferred observant management at this time. No intervention was performed. Time Spent with Patient Time spent providing/coordinating discharge services (# min): 36 Surgeries and Procedures Operation Date: 06/26/22 11:15 Actual Procedures p EGD w/ BX'S(Not Applicable) - Alfred Lugo MD s COLONOSCOPY(Not Applicable) - Alfred Lugo MD Diagnostic Studies Completed and Pending Studies Pending studies at discharge: 06/30/22 05:00 Basic Metabolic Panel [CHEM] IN AM Complete Blood Count Auto Diff IN AM Labs on day of discharge: 06/29/22 06:34: PHA Creatinine Clear 89.63, Sodium 133 L, Potassium 4.8, Chloride 105, Carbon Dioxide 25.4, Anion Gap 7.4, BUN 10, Creatinine 0.93, Est GFR (CKD- EPI) > 60.0, Glucose 96, Calcium 8.5 L 06/29/22 06:34: Corrected WBC 7.0, Uncorrected WBC Count 7.0, RBC 3.37 L, Hgb 9.4 L, Hct 28.2 L, MCV 83.8, MCH 28.0, MCHC 33.4, RDW 18.5 H, Plt Count 224, MPV 6.3 L, Neut % (Auto) 66.0, Lymph % (Auto) 22.5, Mcpherson % (Auto) 9.1, Eos % (Auto) 1.9, Baso % (Auto) 0.5, Nucleat RBC Rel Count 0.0, Neut # (Auto) 4.6, Lymph # (Auto) 1.6, Mcpherson # (Auto) 0.6, Eos # (Auto) 0.1, Baso # (Auto) 0.0 Exam Physical Exam Vital Signs: Temp Pulse Resp BP Pulse Ox O2 Del Method 98.1 F 75 20 110/62 96 Room Air 06/29/22 04:00 06/29/22 12:11 06/29/22 12:11 06/29/22 12:11 06/29/22 12:11 06/29/22 12:11 Discharge Plan Discharge Plan Patient Disposition: Home Activity: No Activity Restriction Diet: Other Comment: GI soft, low fiber diet. Fluid restriction of 60-70 ounces per day. Additional Instructions: CBC and BMP in 1 week- send results to PCP. Instructions: Low Fiber Diet, Esophagitis Prescriptions: New pantoprazole 40 mg Tablet,Delayed Release (Dr/Ec) 40 mg PO BID 90 Days Qty: 180 0RF Rx Instructions: 40 mg p.o. twice daily x2 weeks, then 40 mg p.o. daily. Please dispense a 3- month supply. Continued hydralazine 25 mg tablet 25 mg PO BID Patient Comments: TAKE 1 TABLET BY MOUTH TWICE DAILY diltiazem HCl [DILT-XR] 180 mg capsule,ext.rel 24h degradable 180 mg PO QAM Patient Comments: TAKE 1 CAPSULE BY MOUTH ONCE DAILY tacrolimus [Prograf] 1 mg capsule 1 mg PO Q12H Patient Comments: TAKE 1 CAPSULE BY MOUTH EVERY 12 HOURS tacrolimus [Prograf] 0.5 mg capsule 0.5 mg PO Q12H Patient Comments: TAKE 1 CAPSULE BY MOUTH TWICE DAILY magnesium 200 mg Tablet 400 mg PO DAILY sulfamethoxazole-trimethoprim 400-80 mg tablet 1 tab PO DAILY Patient Comments: TAKE 1 TABLET BY MOUTH ONCE DAILY flecainide 50 mg tablet 50 mg PO TID Patient Comments: TAKE 1 TABLET BY MOUTH EVERY 8 HOURS Rx Instructions: 0900, 1500, 2100 ropinirole 1 mg tablet 1 mg PO HS Patient Comments: mycophenolate mofetil [CellCept] 250 mg Capsule 750 mg PO BID Patient Comments: 3 morning 3 night prednisone 5 mg tablet 5 mg PO DAILY Patient Comments: Discontinued aspirin [Aspir-81] 81 mg Tablet,Delayed Release (Dr/Ec) 81 mg PO DAILY clindamycin HCl 300 mg capsule 300 mg PO QID Patient Comments: TAKE 1 CAPSULE BY MOUTH 4 TIMES DAILY famotidine 20 mg Tablet 20 mg PO BID Other Ambulatory Orders: Basic Metabolic Panel (Routine) Timeframe: 1 Week Location: Determined by Patient Ordered By: Stanley Le Complete Blood Count Auto Diff (Routine) Timeframe: 1 Week Location: Determined by Patient Ordered By: Stanley Le Follow Up: Tano Stevenson MD [Active Staff] - (Call if needed. ) Alfred Lugo MD [Active Staff] - 09/28/22 9:15 am (You have been scheduled for a follow up appointment for the following date and time, please call to reschedule if needed.) Aishwarya Lundy II, MD [Primary Care Provider] - 07/06/22 10:45 am (Post hospital follow up appointment. Please call and reschedule if needed.) Hitesh Pedroza MD [Active Staff] - 09/01/22 3:20 pm (Previously scheduled appointment. ) Documented By: Stanley Le MD 06/29/22 1326 Signed By: <Electronically signed by Stanley Le MD> 06/29/22 1524 [facility] Work Phone: 1([phone] 640-190904-17-2023 Progress note Author Sofia Mcmullen [facility] June 29, 2022 11:05am Note Date/Time June 29, 2022 11: 05am [facility] [address] [place] [address] Nephrology Progress Note Signed Patient: Jagruti Esparza MR#: [id number] : 1955 Acct:[id number] Age/Sex: 66 / M Adm Date: 3 Loc: Room: [address] [place] [address] Type: ADM IN Attending Dr: Stanley Le MD Copies to: ~ Date of Service: 06/29/2022 Subjective Subjective Narrative: This is a 66-year-old male with a medical history of ESRD s/p renal transplant, atrial flutter, hypertension, secondary hypothyroidism was presented to the [facility] for bright red blood per rectum. Patient has a ESRD due to obstructive uropathy initially was initiated on dialysis in 2007. He subsequently had living unrelated kidney transplant at [facility] in 2012. Patient follows in our office for his transplant care. His renal function has been stable with baseline serum creatinine 0.8 to 1.1 mg/dL. His immunosuppressive regimen includes mycophenolate, prednisone and tacrolimus. He also takes Bactrim for PCP prophylaxis. On evaluation in the emergency room at [facility] he was noticed to have relative hypotension with blood pressure 157. He was also noticed to have a critical anemia with hemoglobin 5.9 g/dL. Patientwas transfused PRBCs and hemoglobin went up appropriately. GI has been consulted and patient undergoing bowel preparation for colonoscopy. Nephrology consulted for his renal transplant and immunosuppression regimen management. He had a EGD and colonoscopy by GI. EGD showed hiatal hernia, severe ulcerative esophagitis and possible Slime esophagitis. He was also found to have a diverticulosis with bleeding. Interval history Patient was seen examined at bedside. He denies any chest with palpation cough nausea vomiting diarrhea or shortness of breath. He reported that he did not have a bowel movement in last 24 hours. Exam Physical Exam Vital Signs: Temp Pulse Resp BP Pulse Ox O2 Del Method 98.1 F 81 16 122/69 97 Room Air 06/29/22 04:00 06/29/22 04:00 06/29/22 04:00 06/29/22 04:00 06/29/22 04:00 06/29/22 08:35 Narrative: General: Appears comfortable and not in distress Heart: S1-S2, no rub Lung: Bilateral air entry, no wheezing or crackles Abdomen: Soft, positive bowel sounds Extremities: No edema, no cyanosis Head: Atraumatic, normocephalic Ear: No gross hearing Deficit or external ear redness Eyes: No pallor or redness Neck: No JVD or visible mass Skin: No rashes or bruises MEDICAL RESIDENT: Awake,Alert, following simple command Musculoskeletal: No joint swelling or limitation of movement Psychiatric: Cooperative, normal mood and affect Objective Intake and Output I&O: Intake & Output 06/26/22 06/27/22 06/28/22 06/29/22 23:59 23:59 23:59 23:59 Intake Total 1150 / 1150 1895 / 1895 3200 / 3200 1500 / 1500 Output Total 1050 / 1050 1350 / 1350 4225 / 4225 1850 / 1850 Balance 100 / 100 545 / 545 -1025 / -1025 -350 / -350 Weight 92.6 kg 92.6 kg 92.5 kg 94 kg Meds and Allergies Meds: Active Medications Acetaminophen (Acetaminophen 500 Mg Tablet) 1,000 mg PO Q6HR PRN PRN Reason: Pain Scale 1 - 3 or fever Stop: 06/25/23 19:07 Flecainide Acetate (*Patient's Own Med*: Flecainide Acetate 50 Mg Tablet) 50 mgPO TID@0900,1500,2100 [facility] Stop: 06/27/23 14:59 Last Admin: 06/29/22 08:29 Dose: 50 mg Sodium Chloride (0.9% Sodium Chloride 1,000 Ml) 1,000 mls @ 0 mls/hr IV .Q0M [facility] Stop: 06/26/23 11:44 Last Admin: 04/14/23 11:36 Dose: 20 mls/hr Magnesium Oxide (Magnesium Oxide 400 Mg Tablet) 400 mg PO DAILY@1200 [facility] Stop: 06/27/23 11:59 Last Admin: 06/28/22 11:53 Dose: 400 mg Miscellaneous Information (Consult To Pharmacy) 1 each MISCELLANE .PHACONSULT PRN; Protocol PRN Reason: ZZ.Pharmacy Consult Stop: 06/25/23 20:22 Mycophenolate Mofetil (*Patient's Own Med*: Mycophenolate Mofetil 250 Mg Capsule) 750 mg PO BID [facility] Stop: 06/26/23 20:59 Last Admin: 06/29/22 08:29 Dose: 750 mg *Patient's Own Med*: Diltiazem Hcl [Dilt- Xr] 180 Mg Capsule, Ext.Rel 24h Degradable 180 mg PO QAM [facility] Stop: 06/27/23 08:59 Last Admin: 06/29/22 08:29 Dose: 180 mg Pantoprazole Sodium (Pantoprazole 40 Mg Tablet.) 40 mg PO BID [facility] Stop: 06/26/23 20:59 Last Admin: 06/29/22 08:28 Dose: 40 mg Prednisone (*Patient's Own Med*: Prednisone 5 Mg Tablet) 5 mg PO DAILY [facility] Stop: 06/27/23 08:59 Last Admin: 06/29/22 08:29 Dose: 5 mg Ropinirole HCl (*Patient's Own Med*: Ropinirole 1 Mg Tablet) 1 mg PO HS [facility] Stop: 06/26/23 21:59 Last Admin: 06/28/22 21:29 Dose: 1 mg Sodium Biphosphate/Sodium Phosphate (Sod. Phosphate (Saline) 1 Each Enema) 2 each [place] ONCE PRN PRN Reason: Bleeding Stop: 06/26/23 08:06 Sodium Chloride (Sodium Chloride 0.9 % 10 Ml Syringe) 0 ml IV-PUSH PRN PRN PRN Reason: Flush Stop: 06/26/23 08:05 Last Admin: 06/27/22 14:17 Dose: 20 ml Sodium Chloride (Sodium Chloride 0.9 % 10 Ml Syringe) 0 ml IV-PUSH QSHIFT [facility] Stop: 06/26/23 13:59 Last Admin: 06/29/22 06:20 Dose: 10 ml Tacrolimus (*Patient's Own Med*: Tacrolimus 0.5 Mg Capsule) 0.5 mg PO BID [facility] Stop: 06/26/23 20:59 Last Admin: 06/29/22 08:29 Dose: 0.5 mg Tacrolimus (*Patient's Own Meds*: Tacrolimus 1 Mg Capsule) 1 mg PO Q12HR [facility] Stop: 06/26/23 20:59 Last Admin: 06/29/22 08:29 Dose: 1 mg Trimethoprim/Sulfamethoxazole (*Patient's Own Med*: Sulfamethoxazole/Tmp 400- 80mg Tablet) 1 tab PO DAILY [facility] Last Admin: 06/29/22 08:29 Dose: 1 tab Allergies amoxicillin Allergy (Verified 07/02/17 00:25) Unknown Reaction cephalexin Allergy (Verified 07/02/17 00:25) Unknown Reaction erythromycin base [From Erythrocin] Allergy (Verified 07/02/17 00:25) Unknown Reaction Penicillins Allergy (Verified 07/02/17 00:25) Unknown Reaction tobramycin Adverse Reaction (Verified 07/02/17 02:46) Unknown Reaction Results Labs 06/29/22 06:34 06/29/22 06:34 Labs: 06/29/22 06:34 BUN 10 Creatinine 0.93 Radiology Impressions Impressions - last 24 hours: Any impression(s) listed above is documentation that was entered by the reading physician into a diagnostic report(s) for Jagruti Esparza. I have reviewed the report(s) and am incorporating any findings in the treatment plan of this patient where applicable. A&P - Nephrology Assessment/Plan (1) Renal transplant recipient: Plan: Patient has living unrelated kidney transplant in 2012 with baseline creatinine variable between 0.8-1.1 mg/dL.? He currently on immunosuppression including mycophenolate, tacrolimus and prednisone with stable renal function.? Patient has been compliant with medications. (2) Acute blood loss anemia: Plan: He has acute blood loss anemia due to GI bleed. His hemoglobin went up appropriately with blood transfusion. (3) Secondary hyperparathyroidism: Plan: He has a secondary hyperparathyroidism due to the CKD. (4) Acute lower gastrointestinal bleeding: Plan: He has a acute GI bleed. GI has been consulted and plan to do colonoscopy today. (5) Atrial flutter: Plan: He has a history of a flutter and currently takes Cardizem and flecainide. (6) Hypertensive chronic kidney disease with stage 1 through stage 4 chronic kidney disease, or unspecified chronic kidney disease: Plan: His blood pressure control. He takes hydralazine at home. (7) Pseudoaneurysm of AV hemodialysis fistula: Plan: He has enlarged pseudoaneurysm of AV fistula. He was seen by the vascular surgery recommended no surgical intervention for now. (8) Hyponatremia: Plan: He has hyponatremia but serum sodium within the acceptable range. He has a inappropriately high urine osmolality with high urine sodium so there is a component of SIADH. He has a normal TSH and cortisol so possibly evident insufficiency and hypothyroidism is low. Patient reported to drink plenty of water bottles close to 120 to 150 ounces a day. Plan * Patient requested that he would like to take his medication from home. We will continue the same dose of the immunosuppressive regimen which he has been taking for a long time. He is also on Bactrim for PCP prophylaxis. We will continue that as well. * Resume home dose of the hydralazine * Continue A-flutter management as per the primary hospitalist team. * Check renal function daily monitor input output * Continue management of the GI bleed as per the GI. * Adding antifungal medication like fluconazole may cause drug drug interaction and his tacrolimus level needs to be monitored closely. * Patient was advised to limit the fluid intake about 60 to 70 ounces a day. * Patient can be discharged from renal standpoint outpatient follow-up with Dr. Pedroza as scheduled. Documented By: Sofia Mcmullen MD 06/29/221102 Signed By: <Electronically signed by Sofia Mcmullen MD> 06/29/22 1981 [facility] Work Phone: [phone] 132-204804-16-2023 Progress note Author Chao Curiel [facility] June 28, 2022 3:33pm Note Date/Time June 28, 2022 3:3 3pm [facility] [address] [place] [address] Hospitalist Progress Note Signed Patient: Jagruti Esparza MR#: [id number] : 1955 Acct:[id number] Age/Sex: 66 / M Adm Date: 3 Loc: Room: [address] [place] [address] Type: ADM IN Attending Dr: Chao Curiel DO Copies to: ~ Date of Service: 06/28/2022 Subjective Subjective Narrative: Patient was seen and examined at bedside. No acute events overnight. Bleeding is lessened. Hemoglobin stable Physical Examination: GENERAL APPEARANCE: Alert, up in bed AAOx3 HEENT: NCAT, MMM NECK: Neck soft w/o masses, no JVD CARDIAC: Normal S1 and S2. No S3, S4 or murmurs. LUNGS: Clear to auscultation bilaterally. no wheeze/rhonchi/rales ABDOMEN: Positive bowel sounds. Soft, nontender. No guarding or signs of an acute abdomen MUSCULOSKELETAL: No joint erythema or tenderness. EXTREMITIES: No clubbing, cyanosis or edema PSYCHIATRIC: Appropriate mood and affect Assessment and plan: 1. Acute diverticular bleed Hemodynamically quite stable. Appreciate GI recommendations. Esophagitis is also contributing. Continue to hold aspirin. H&H has seemingly stabilized. Wewill continue to monitor. Discontinue clindamycin and Pepcid. 2. Status post renal transplant Appreciate nephrology consultation. Serum creatinine has remained stable. Maintain his home mycophenolate mofetil 7 and 50 mg twice daily, Bactrim 1 tablet daily, Prograf 0.5 mg twice daily, 1 mg twice daily. He request nephrology consultation. I do not see any interacting medications with Prograf or need to check a Prograf level but he is quite concerned regarding this. 3. Hyponatremia Appears to be somewhat of a chronic issue. Likely multifactorial. Requires no further work-up. 4. Paroxysmal atrial fibrillation Continue home Cardizem 180 mg extended release daily. Continue home flecainide 50 mg every 8 hours. We will keep the patient on telemetry. He is not on chronic anticoagulation apart from 81 mg aspirin which has been held. 5. Restless leg syndrome Continue home ropinirole 1 mg nightly 6. Pseudoaneurysm of AV fistula Consult to vascular surgery. Exam Physical Exam Vital Signs: Temp Pulse Resp BP Pulse Ox O2 Del Method 98.0 F 72 18 130/72 97 Room Air 06/28/22 15:18 06/28/22 15:18 06/28/22 15:18 06/28/22 15:18 06/28/22 15:18 06/28/22 15:18 Objective Lab Results 06/28/22 05:24 06/28/22 05:24 Meds Allergies and Active Meds Allergies amoxicillin Allergy (Verified 07/02/17 00:25) Unknown Reaction cephalexin Allergy (Verified 07/02/17 00:25) Unknown Reaction erythromycin base [From Erythrocin] Allergy (Verified 07/02/17 00:25) Unknown Reaction Penicillins Allergy (Verified 07/02/17 00:25) Unknown Reaction tobramycin Adverse Reaction (Verified 07/02/17 02:46) Unknown Reaction Active Meds: Active Medications Generic Name Dose Route Start Last Admin Trade Name Freq PRN Reason Stop Dose Admin Acetaminophen 1,000 mg 06/25/22 19:08 Acetaminophen 500 Mg Tablet PO 06/25/23 19:07 Q6HR PRN Pain Scale 1 - 3 or fever Flecainide Acetate 50 mg 06/27/22 15:00 06/28/22 15:14 *Patient's Own Med*: Flecainide Acetate 50 Mg Tablet PO 06/27/23 14:59 50 mg TID@0900,1500,2100 TREMAINE Administration Sodium Chloride 1,000 mls @ 0 mls/hr 06/26/22 11:45 06/26/22 11:36 0.9% Sodium Chloride 1,000 Ml IV 06/26/23 11:44 20 mls/hr .Q0M TREMAINE Administration KVO Magnesium Oxide 400 mg 06/27/22 12:00 06/28/22 11:53 Magnesium Oxide 400 Mg Tablet PO 06/27/23 11:59 400 mg DAILY@1200 TREMAINE Administration Miscellaneous Information 1 each 06/25/22 20:23 Consult To Pharmacy MISCELLANE 06/25/23 20:22 .PHACONSULT PRN MARKOS.Pharmacy Consult Protocol Mycophenolate Mofetil 750 mg 06/26/22 21:00 06/28/22 08:41 *Patient's Own Med*: Mycophenolate Mofetil 250 Mg Capsule PO 06/26/23 20:59 750 mg BID TREMAINE Administration *Patient's Own Med*: 180 mg 06/27/22 09:00 06/28/22 08:40 Diltiazem Hcl [Dilt- PO 06/27/23 08:59 180 mg Xr] 180 Mg Capsule, QAM TREMAINE Administration Ext.Rel 24h Degradable Pantoprazole Sodium 40 mg 06/26/22 21:00 06/28/22 08:41 Pantoprazole 40 Mg Tablet.Dr BRAGG 06/26/23 20:59 40 mg BID TREMAINE Administration Prednisone 5 mg 06/27/22 09:00 06/28/22 08:41 *Patient's Own Med*: Prednisone 5 Mg Tablet PO 06/27/23 08:59 5 mg DAILY TREMAINE Administration Ropinirole HCl 1 mg 06/26/22 22:00 06/27/22 21:13 *Patient's Own Med*: Ropinirole 1 Mg Tablet PO 06/26/23 21:59 1 mg HS TREMAINE Administration Sodium Biphosphate/Sodium Phosphate 2 each 06/26/22 08:07 Sod. Phosphate (Saline) 1 Each Enema AZ 06/26/23 08:06 ONCE PRN Bleeding Sodium Chloride 0 ml 06/26/22 08:06 06/27/22 14:17 Sodium Chloride 0.9 % 10 Ml Syringe IV-PUSH 06/26/23 08:05 20 ml PRN PRN Administration Flush Sodium Chloride 0 ml 06/26/22 14:00 06/28/22 15:15 Sodium Chloride 0.9 % 10 Ml Syringe IV-PUSH 06/26/23 13:59 10 ml QSHIFT TREMAINE Administration Tacrolimus 0.5 mg 06/26/22 21:00 06/28/22 08:41 *Patient's Own Med*: Tacrolimus 0.5 Mg Capsule PO 06/26/23 20:59 0.5 mg BID TREMAINE Administration Tacrolimus 1 mg 06/26/22 21:00 06/28/22 08:42 *Patient's Own Meds*: Tacrolimus 1 Mg Capsule PO 06/26/23 20:59 1 mg Q12HR TREMAINE Administration Trimethoprim/Sulfamethoxazole 1 tab 06/27/22 09:00 06/28/22 08:41 *Patient's Own Med*: Sulfamethoxazole/Tmp 400-80mg Tablet PO 1 tab DAILY TREMAINE Administration Documented By: Chao Curiel DO 06/28/22 15 32 Signed By: <Electronically signed by Chao Curiel DO> 06/28/22 1533 [facility] Work Phone: 1(340) 957-909104-16-2023 Progress note Author Alfred Lugo [facility] June 28, 2022 1:11pm Note Date/Time June 28, 2022 1:1 1pm [facility] [address] [place] [address] Gastroenterology PN Signed Patient: Jagruti Esparza MR#: [id number] : 1955 Acct:[id number] Age/Sex: 66 / M Adm Date: 3 Loc: 3T Room: [address] [place] [address] Type: ADM IN Attending Dr: Chao Curiel DO Copies to: MD Alfred Fuller II, MD Michael R. Frings, DO~ Date of Service: 06/28/2022 Subjective Subjective Narrative: Patient says that he had a tiny bowel movement this morning with a lot of gas and just a little spot of blood. He is still complaining of a lot of indigestion and dyspepsia probably from his ulcerative esophagitis. There is not appear to be any active diverticular bleeding at present. His hemoglobin is9.7 this morning after 4 units total blood transfusion. Patient has chronic constipation and is asking for ways to keep this under control. We have recommended Metamucil and MiraLAX. I told him that he does not have any special restrictions on diet with his diverticulosis other than aspirin and arthritis pills. Exam Physical Exam Vital Signs: Temp Pulse Resp BP Pulse Ox O2 Del Method 97.7 F 72 16 119/66 96 Room Air 06/28/22 11:55 06/28/22 11:55 06/28/22 11:55 06/28/22 11:55 06/28/22 11:55 06/28/22 11:55 Objective Allergies and Medications Allergies/Adverse Reactions: Allergies Allergy/AdvReac Type Severity Reaction Status Date / Time amoxicillin Allergy Unknown Verified 07/02/17 00:25 Reaction cephalexin Allergy Unknown Verified 07/02/17 00:25 Reaction erythromycin base Allergy Unknown Verified 07/02/17 00:25 [From Erythrocin] Reaction Penicillins Allergy Unknown Verified 07/02/17 00:25 Reaction tobramycin AdvReac Unknown Verified 07/02/17 02:46 Reaction Active Meds: Active Medications Generic Name Dose Route Start Last Admin Trade Name Freq PRN Reason Stop Dose Admin Acetaminophen 1,000 mg 06/25/22 19:08 Acetaminophen 500 Mg Tablet PO 06/25/23 19:07 Q6HR PRN Pain Scale 1 - 3 or fever Flecainide Acetate 50 mg 06/27/22 15:00 06/28/22 08:40 *Patient's Own Med*: Flecainide Acetate 50 Mg Tablet PO 06/27/23 14:59 50 mg TID@0900,1500,2100 TREMAINE Administration Sodium Chloride 1,000 mls @ 0 mls/hr 06/26/22 11:45 06/26/22 11:36 0.9% Sodium Chloride 1,000 Ml IV 06/26/23 11:44 20 mls/hr .Q0M TREMAINE Administration KVO Magnesium Oxide 400 mg 06/27/22 12:00 06/28/22 11:53 Magnesium Oxide 400 Mg Tablet PO 06/27/23 11:59 400 mg DAILY@1200 TREMAINE Administration Miscellaneous Information 1 each 06/25/22 20:23 Consult To Pharmacy MISCELLANE 06/25/23 20:22 .PHACONSULT PRN MARKOS.Pharmacy Consult Protocol Mycophenolate Mofetil 750 mg 06/26/22 21:00 06/28/22 08:41 *Patient's Own Med*: Mycophenolate Mofetil 250 Mg Capsule PO 06/26/23 20:59 750 mg BID TREMAINE Administration *Patient's Own Med*: 180 mg 06/27/22 09:00 06/28/22 08:40 Diltiazem Hcl [Dilt- PO 06/27/23 08:59 180 mg Xr] 180 Mg Capsule, QAM TREMAINE Administration Ext.Rel 24h Degradable Pantoprazole Sodium 40 mg 06/26/22 21:00 06/28/22 08:41 Pantoprazole 40 Mg Tablet. PO 06/26/23 20:59 40 mg BID TREMAINE Administration Prednisone 5 mg 06/27/22 09:00 06/28/22 08:41 *Patient's Own Med*: Prednisone 5 Mg Tablet PO 06/27/23 08:59 5 mg DAILY TREMAINE Administration Ropinirole HCl 1 mg 06/26/22 22:00 06/27/22 21:13 *Patient's Own Med*: Ropinirole 1 Mg Tablet PO 06/26/23 21:59 1 mg HS TREMAINE Administration Sodium Biphosphate/Sodium Phosphate 2 each 06/26/22 08:07 Sod. Phosphate (Saline) 1 Each Enema AZ 06/26/23 08:06 ONCE PRN Bleeding Sodium Chloride 0 ml 06/26/22 08:06 06/27/22 14:17 Sodium Chloride 0.9 % 10 Ml Syringe IV-PUSH 06/26/23 08:05 20 ml PRN PRN Administration Flush Sodium Chloride 0 ml 06/26/22 14:00 06/28/22 05:29 Sodium Chloride 0.9 % 10 Ml Syringe IV-PUSH 06/26/23 13:59 10 ml QSHIFT TREMAINE Administration Tacrolimus 0.5 mg 06/26/22 21:00 06/28/22 08:41 *Patient's Own Med*: Tacrolimus 0.5 Mg Capsule PO 06/26/23 20:59 0.5 mg BID TREMAINE Administration Tacrolimus 1 mg 06/26/22 21:00 06/28/22 08:42 *Patient's Own Meds*: Tacrolimus 1 Mg Capsule PO 06/26/23 20:59 1 mg Q12HR TREMAINE Administration Trimethoprim/Sulfamethoxazole 1 tab 06/27/22 09:00 06/28/22 08:41 *Patient's Own Med*: Sulfamethoxazole/Tmp 400-80mg Tablet PO 1 tab DAILY TREMAINE Administration A&P - Gastroenterology Assessment/Plan (1) GI bleed: Plan: It appears that his diverticular bleeding has cleared. His biopsies are pending. Code(s): K92.2 - Gastrointestinal hemorrhage, unspecified Status: Acute Documented By: Alfred Lugo MD 06/28/22 1309 Signed By: <Electronically signed by MD Alfred Lugo> 06/28/22 1311 [facility] Work Phone: [phone]) 745-906904-16-2023 Progress note Author Sofia Mcmullen [facility] June 28, 2022 12:05pm Note Date/Time June 28, 2022 12: 05pm [facility] [address] [place] [address] Nephrology Progress Note Signed Patient: Jagruti Esparza MR#: [id number] : 1955 Acct:[id number] Age/Sex: 66 / M Adm Date: 3 Loc: Room: [address] [place] [address] Type: ADM IN Attending Dr: Chao Curiel DO Copies to: ~ Date of Service: 06/28/2022 Subjective Subjective Narrative: This is a 66-year-old male with a medical history of ESRD s/p renal transplant, atrial flutter, hypertension, secondary hypothyroidism was presented to the [facility] for bright red blood per rectum. Patient has a ESRD due to obstructive uropathy initially was initiated on dialysis in 2007. He subsequently had living unrelated kidney transplant at [facility] in 2012. Patient follows in our office for his transplant care. His renal function has been stable with baseline serum creatinine 0.8 to 1.1 mg/dL. His immunosuppressive regimen includes mycophenolate, prednisone and tacrolimus. He also takes Bactrim for PCP prophylaxis. On evaluation in the emergency room at [facility] he was noticed to have relative hypotension with blood pressure 157. He was also noticed to have a critical anemia with hemoglobin 5.9 g/dL. Patientwas transfused PRBCs and hemoglobin went up appropriately. GI has been consulted and patient undergoing bowel preparation for colonoscopy. Nephrology consulted for his renal transplant and immunosuppression regimen management. Interval history Patient was seen examined at bedside. He is feeling better reported that he still have bloody bowel movement. He had a EGD and colonoscopy by GI. EGD showed hiatal hernia, severe ulcerative esophagitis and possible Slime esophagitis. He was also found to have a diverticulosis with bleeding. Exam Physical Exam Vital Signs: Temp Pulse Resp BP Pulse Ox O2 Del Method 97.7 F 72 16 119/66 96 Room Air 06/28/22 11:55 06/28/22 11:55 06/28/22 11:55 06/28/22 11:55 06/28/22 11:55 06/28/22 11:55 Narrative: General: Appears comfortable and not in distress Heart: S1-S2, no rub Lung: Bilateral air entry, no wheezing or crackles Abdomen: Soft, positive bowel sounds Extremities: No edema, no cyanosis Head: Atraumatic, normocephalic Ear: No gross hearing Deficit or external ear redness Eyes: No pallor or redness Neck: No JVD or visible mass Skin: No rashes or bruises MEDICAL RESIDENT: Awake,Alert, following simple command Musculoskeletal: No joint swelling or limitation of movement Psychiatric: Cooperative, normal mood and affect Objective Intake and Output I&O: Intake & Output 06/25/22 06/26/22 06/27/22 06/28/22 23:59 23:59 23:59 23:59 Intake Total 350 / 350 1150 / 1150 1895 / 1895 550 / 550 Output Total 1050 / 1050 1350 / 1350 375 / 375 Balance 350 / 350 100 / 100 545 / 545 175 / 175 Weight 93.2 kg 92.6 kg 92.6 kg 92.5 kg Meds and Allergies Meds: Active Medications Acetaminophen (Acetaminophen 500 Mg Tablet) 1,000 mg PO Q6HR PRN PRN Reason: Pain Scale 1 - 3 or fever Stop: 06/25/23 19:07 Flecainide Acetate (*Patient's Own Med*: Flecainide Acetate 50 Mg Tablet) 50 mgPO TID@0900,1500,2100 [facility] Stop: 06/27/23 14:59 Last Admin: 06/28/22 08:40 Dose: 50 mg Sodium Chloride (0.9% Sodium Chloride 1,000 Ml) 1,000 mls @ 0 mls/hr IV .Q0M [facility] Stop: 06/26/23 11:44 Last Admin: 06/26/22 11:36 Dose: 20 mls/hr Magnesium Oxide (Magnesium Oxide 400 Mg Tablet) 400 mg PO DAILY@1200 [facility] Stop: 06/27/23 11:59 Last Admin: 06/28/22 11:53 Dose: 400 mg Miscellaneous Information (Consult To Pharmacy) 1 each MISCELLANE .PHACONSULT PRN; Protocol PRN Reason: ZZ.Pharmacy Consult Stop: 06/25/23 20:22 Mycophenolate Mofetil (*Patient's Own Med*: Mycophenolate Mofetil 250 Mg Capsule) 750 mg PO BID [facility] Stop: 06/26/23 20:59 Last Admin: 06/28/22 08:41 Dose: 750 mg *Patient's Own Med*: Diltiazem Hcl [Dilt- Xr] 180 Mg Capsule, Ext.Rel 24h Degradable 180 mg PO QAM [facility] Stop: 06/27/23 08:59 Last Admin: 06/28/22 08:40 Dose: 180 mg Pantoprazole Sodium (Pantoprazole 40 Mg Tablet.) 40 mg PO BID [facility] Stop: 06/26/23 20:59 Last Admin: 06/28/22 08:41 Dose: 40 mg Prednisone (*Patient's Own Med*: Prednisone 5 Mg Tablet) 5 mg PO DAILY [facility] Stop: 06/27/23 08:59 Last Admin: 06/28/22 08:41 Dose: 5 mg Ropinirole HCl (*Patient's Own Med*: Ropinirole 1 Mg Tablet) 1 mg PO HS TREMAINE Stop: 06/26/23 21:59 Last Admin: 06/27/22 21:13 Dose: 1 mg Sodium Biphosphate/Sodium Phosphate (Sod. Phosphate (Saline) 1 Each Enema) 2 each AZ ONCE PRN PRN Reason: Bleeding Stop: 06/26/23 08:06 Sodium Chloride (Sodium Chloride 0.9 % 10 Ml Syringe) 0 ml IV-PUSH PRN PRN PRN Reason: Flush Stop: 06/26/23 08:05 Last Admin: 06/27/22 14:17 Dose: 20 ml Sodium Chloride (Sodium Chloride 0.9 % 10 Ml Syringe) 0 ml IV-PUSH QSHIFT TREMAINE Stop: 06/26/23 13:59 Last Admin: 06/28/22 05:29 Dose: 10 ml Tacrolimus (*Patient's Own Med*: Tacrolimus 0.5 Mg Capsule) 0.5 mg PO BID TREMAINE Stop: 06/26/23 20:59 Last Admin: 06/28/22 08:41 Dose: 0.5 mg Tacrolimus (*Patient's Own Meds*: Tacrolimus 1 Mg Capsule) 1 mg PO Q12HR TREMAINE Stop: 06/26/23 20:59 Last Admin: 06/28/22 08:42 Dose: 1 mg Trimethoprim/Sulfamethoxazole (*Patient's Own Med*: Sulfamethoxazole/Tmp 400- 80mg Tablet) 1 tab PO DAILY [facility] Last Admin: 06/28/22 08:41 Dose: 1 tab Allergies amoxicillin Allergy (Verified 07/02/17 00:25) Unknown Reaction cephalexin Allergy (Verified 07/02/17 00:25) Unknown Reaction erythromycin base [From Erythrocin] Allergy (Verified 07/02/17 00:25) Unknown Reaction Penicillins Allergy (Verified 07/02/17 00:25) Unknown Reaction tobramycin Adverse Reaction (Verified 07/02/17 02:46) Unknown Reaction Results Labs 06/28/22 05:24 06/28/22 05:24 Labs: 06/28/22 05:24 BUN 12 Creatinine 0.86 Radiology Impressions Impressions - last 24 hours: Any impression(s) listed above is documentation that was entered by the reading physician into a diagnostic report(s) for Jagruti Esparza. I have reviewed the report(s) and am incorporating any findings in the treatment plan of this patient where applicable. A&P - Nephrology Assessment/Plan (1) Renal transplant recipient: Plan: Patient has living unrelated kidney transplant in 2012 with baseline creatinine variable between 0.8-1.1 mg/dL.? He currently on immunosuppression including mycophenolate, tacrolimus and prednisone with stable renal function.? Patient has been compliant with medications. (2) Acute blood loss anemia: Plan: He has acute blood loss anemia due to GI bleed. His hemoglobin went up appropriately with blood transfusion. (3) Secondary hyperparathyroidism: Plan: He has a secondary hyperparathyroidism due to the CKD. (4) Acute lower gastrointestinal bleeding: Plan: He has a acute GI bleed. GI has been consulted and plan to do colonoscopy today. (5) Atrial flutter: Plan: He has a history of a flutter and currently takes Cardizem and flecainide. (6) Hypertensive chronic kidney disease with stage 1 through stage 4 chronic kidney disease, or unspecified chronic kidney disease: Plan: His blood pressure control. He takes hydralazine at home. (7) Pseudoaneurysm of AV hemodialysis fistula: Plan: He has enlarged pseudoaneurysm of AV fistula. He was seen by the vascular surgery recommended no surgical intervention for now. (8) Hyponatremia: Plan: He has hyponatremia but serum sodium within the acceptable range. He has a inappropriately high urine osmolality with high urine sodium so there is a component of SIADH. He has a normal TSH and cortisol so possibly evident insufficiency and hypothyroidism is low. Patient reported to drink plenty of water bottles close to 120 to 150 ounces a day. Plan * Patient requested that he would like to take his medication from home. We will continue the same dose of the immunosuppressive regimen which he has been taking for a long time. He is also on Bactrim for PCP prophylaxis. We will continue that as well. * Agreed to hold hydralazine due to the risk of hypotension in setting of GI bleed. * Monitor H&H and transfuse as needed to keep the hemoglobin greater than 7.5 g/dL. * Continue A-flutter management as per the primary hospitalist team. * Check renal function daily monitor input output * Continue management of the GI bleed as per the GI. * Adding antifungal medication like fluconazole may cause drug drug interaction and his tacrolimus level needs to be monitored closely. * Patient was advised to limit the fluid intake about 60 to 70 ounces a day. Documented By: Sofia Mcmullen MD 06/28/22 120 Signed By: <Electronically signed by Sofia Mcmullen MD> 06/28/22 1205 [facility] Work Phone: [phone] 414-792904-16-2023 Progress note Author Sofia Mcmullen [facility] June 28, 2022 12:03pm Note Date/Time June 28, 2022 11: 53am [facility] [address] [place] [address] Nephrology Progress Note Signed with Addenda Patient: Jagruti Esparza MR#: [id number] : 1955 Acct:[id number] Age/Sex: 66 / M Adm Date: 3 Loc: Room: [address] [place] [address] Type: ADM IN Attending Dr: Chao Curiel DO Copies to: ~ ADDENDUM1 Patient has hyponatremia likely due to the excessive fluid intake. Patient reported he drinks plenty of water reported close to 120 ounces. He has normal TSH and cortisol so possibly of adrenal insufficiency or hypothyroidism is low. He has a inappropriately high Yunus bradycardia with high urine sodium so he mayhave some component of SIADH. Addendum Documented By: Sofia Mcmullen MD 06/28/221202 Addendum Signed By: <Electronically signed by Sofia Mcmullen MD> 06/28/22 120 Date of Service: 06/28/2022 Subjective Subjective Narrative: This is a 66-year-old male with a medical history of ESRD s/p renal transplant, atrial flutter, hypertension, secondary hypothyroidism was presented to the [facility] for bright red blood per rectum. Patient has a ESRD due to obstructive uropathy initially was initiated on dialysis in 2007. He subsequently had living unrelated kidney transplant at [facility] in 2012. Patient follows in our office for his transplant care. His renal function has been stable with baseline serum creatinine 0.8 to 1.1 mg/dL. His immunosuppressive regimen includes mycophenolate, prednisone and tacrolimus. He also takes Bactrim for PCP prophylaxis. On evaluation in the emergency room at [facility] he was noticed to have relative hypotension with blood pressure 157. He was also noticed to have a critical anemia with hemoglobin 5.9 g/dL. Patientwas transfused PRBCs and hemoglobin went up appropriately. GI has been consulted and patient undergoing bowel preparation for colonoscopy. Nephrology consulted for his renal transplant and immunosuppression regimen management. Interval history Patient was seen examined at bedside. He is feeling better reported that he still have bloody bowel movement. He had a EGD and colonoscopy by GI. EGD showed hiatal hernia, severe ulcerative esophagitis and possible Slime esophagitis. He was also found to have a diverticulosis with bleeding. Exam Physical Exam Vital Signs: Temp Pulse Resp BP Pulse Ox O2 Del Method 97.8 F 75 18 120/70 97 Room Air 06/28/22 08:38 06/28/22 08:38 06/28/22 08:38 06/28/22 08:38 06/28/22 08:38 06/28/22 08:38 Narrative: General: Appears comfortable and not in distress Heart: S1-S2, no rub Lung: Bilateral air entry, no wheezing or crackles Abdomen: Soft, positive bowel sounds Extremities: No edema, no cyanosis Head: Atraumatic, normocephalic Ear: No gross hearing Deficit or external ear redness Eyes: No pallor or redness Neck: No JVD or visible mass Skin: No rashes or bruises MEDICAL RESIDENT: Awake,Alert, following simple command Musculoskeletal: No joint swelling or limitation of movement Psychiatric: Cooperative, normal mood and affect Objective Intake and Output I&O: Intake & Output 06/25/22 06/26/22 06/27/22 06/28/22 23:59 23:59 23:59 23:59 Intake Total 350 / 350 1150 / 1150 1895 / 1895 550 / 550 Output Total 1050 / 1050 1350 / 1350 375 / 375 Balance 350 / 350 100 / 100 545 / 545 175 / 175 Weight 93.2 kg 92.6 kg 92.6 kg 92.5 kg Meds and Allergies Meds: Active Medications Acetaminophen (Acetaminophen 500 Mg Tablet) 1,000 mg PO Q6HR PRN PRN Reason: Pain Scale 1 - 3 or fever Stop: 06/25/23 19:07 Flecainide Acetate (*Patient's Own Med*: Flecainide Acetate 50 Mg Tablet) 50 mgPO TID@0900,1500,2100 [facility] Stop: 06/27/23 14:59 Last Admin: 06/28/22 08:40 Dose: 50 mg Sodium Chloride (0.9% Sodium Chloride 1,000 Ml) 1,000 mls @ 0 mls/hr IV .Q0M [facility]RE[facility]INE Stop: 06/26/23 11:44 Last Admin: 06/26/22 11:36 Dose: 20 mls/hr Magnesium Oxide (Magnesium Oxide 400 Mg Tablet) 400 mg PO DAILY@1200 [facility] Stop: 06/27/23 11:59 Last Admin: 06/27/22 12:03 Dose: 400 mg Miscellaneous Information (Consult To Pharmacy) 1 each MISCELLANE .PHACONSULT PRN; Protocol PRN Reason: ZZ.Pharmacy Consult Stop: 06/25/23 20:22 Mycophenolate Mofetil (*Patient's Own Med*: Mycophenolate Mofetil 250 Mg Capsule) 750 mg PO BID [facility] Stop: 06/26/23 20:59 Last Admin: 06/28/22 08:41 Dose: 750 mg *Patient's Own Med*: Diltiazem Hcl [Dilt- Xr] 180 Mg Capsule, Ext.Rel 24h Degradable 180 mg PO QAM [facility] Stop: 06/27/23 08:59 Last Admin: 06/28/22 08:40 Dose: 180 mg Pantoprazole Sodium (Pantoprazole 40 Mg Tablet.Dr) 40 mg PO BID [facility] Stop: 06/26/23 20:59 Last Admin: 06/28/22 08:41 Dose: 40 mg Prednisone (*Patient's Own Med*: Prednisone 5 Mg Tablet) 5 mg PO DAILY [facility] Stop: 06/27/23 08:59 Last Admin: 06/28/22 08:41 Dose: 5 mg Ropinirole HCl (*Patient's Own Med*: Ropinirole 1 Mg Tablet) 1 mg PO HS [facility] Stop: 06/26/23 21:59 Last Admin: 06/27/22 21:13 Dose: 1 mg Sodium Biphosphate/Sodium Phosphate (Sod. Phosphate (Saline) 1 Each Enema) 2 each AZ ONCE PRN PRN Reason: Bleeding Stop: 06/26/23 08:06 Sodium Chloride (Sodium Chloride 0.9 % 10 Ml Syringe) 0 ml IV-PUSH PRN PRN PRN Reason: Flush Stop: 06/26/23 08:05 Last Admin: 06/27/22 14:17 Dose: 20 ml Sodium Chloride (Sodium Chloride 0.9 % 10 Ml Syringe) 0 ml IV-PUSH QSHIFT [facility] Stop: 06/26/23 13:59 Last Admin: 06/28/22 05:29 Dose: 10 ml Tacrolimus (*Patient's Own Med*: Tacrolimus 0.5 Mg Capsule) 0.5 mg PO BID [facility] Stop: 06/26/23 20:59 Last Admin: 06/28/22 08:41 Dose: 0.5 mg Tacrolimus (*Patient's Own Meds*: Tacrolimus 1 Mg Capsule) 1 mg PO Q12HR [facility] Stop: 06/26/23 20:59 Last Admin: 06/28/22 08:42 Dose: 1 mg Trimethoprim/Sulfamethoxazole (*Patient's Own Med*: Sulfamethoxazole/Tmp 400- 80mg Tablet) 1 tab PO DAILY [facility] Last Admin: 06/28/22 08:41 Dose: 1 tab Allergies amoxicillin Allergy (Verified 07/02/17 00:25) Unknown Reaction cephalexin Allergy (Verified 07/02/17 00:25) Unknown Reaction erythromycin base [From Erythrocin] Allergy (Verified 07/02/17 00:25) Unknown Reaction Penicillins Allergy (Verified 07/02/17 00:25) Unknown Reaction tobramycin Adverse Reaction (Verified 07/02/17 02:46) Unknown Reaction Results Labs 06/28/22 05:24 06/28/22 05:24 Labs: 06/28/22 05:24 BUN 12 Creatinine 0.86 Radiology Impressions Impressions - last 24 hours: Any impression(s) listed above is documentation that was entered by the reading physician into a diagnostic report(s) for Jagruti Esparza. I have reviewed the report(s) and am incorporating any findings in the treatment plan of this patient where applicable. A&P - Nephrology Assessment/Plan (1) Renal transplant recipient: Plan: Patient has living unrelated kidney transplant in 2012 with baseline creatinine variable between 0.8-1.1 mg/dL.? He currently on immunosuppression including mycophenolate, tacrolimus and prednisone with stable renal function.? Patient has been compliant with medications. (2) Acute blood loss anemia: Plan: He has acute blood loss anemia due to GI bleed. His hemoglobin went up appropriately with blood transfusion. (3) Secondary hyperparathyroidism: Plan: He has a secondary hyperparathyroidism due to the CKD. (4) Acute lower gastrointestinal bleeding: Plan: He has a acute GI bleed. GI has been consulted and plan to do colonoscopy today. (5) Atrial flutter: Plan: He has a history of a flutter and currently takes Cardizem and flecainide. (6) Hypertensive chronic kidney disease with stage 1 through stage 4 chronic kidney disease, or unspecified chronic kidney disease: Plan: His blood pressure control. He takes hydralazine at home. (7) Pseudoaneurysm of AV hemodialysis fistula: Plan: He has enlarged pseudoaneurysm of AV fistula. He was seen by the vascular surgery recommended no surgical intervention for now. Plan * Patient requested that he would like to take his medication from home. We will continue the same dose of the immunosuppressive regimen which he has been taking for a long time. He is also on Bactrim for PCP prophylaxis. We will continue that as well. * Agreed to hold hydralazine due to the risk of hypotension in setting of GI bleed. * Monitor H&H and transfuse as needed to keep the hemoglobin greater than 7.5 g/dL. * Continue A-flutter management as per the primary hospitalist team. * Check renal function daily monitor input output * Continue management of the GI bleed as per the GI. * Adding antifungal medication like fluconazole may cause drug drug interaction and his tacrolimus level needs to be monitored closely. Documented By: Sofia Mcmullen MD 06/28/22 1151 Signed By: <Electronically signed by Sofia Mcmullen MD> 06/28/22 1200 [facility] Work Phone: 1(208) 259-461904-15-2023 Progress note Author Chao Curiel [facility] June 27, 2022 4:20pm Note Date/Time June 27, 2022 4:2 0pm [facility] [address] [place] [address] Hospitalist Progress Note Signed Patient: Jagruti Esparza MR#: [id number] : 1955 Acct:[id number] Age/Sex: 66 / M Adm Date: 3 Loc: Room: 0G6601-6 Type: ADM IN Attending Dr: Chao Curiel DO Copies to: ~ Date of Service: 06/27/2022 Subjective Subjective Narrative: Patient was seen and examined at bedside. No acute events overnight. He has had ongoing bleeding intermittently but seemingly somewhat slowed up Physical Examination: GENERAL APPEARANCE: Alert, up in bed AAOx3 HEENT: NCAT, MMM NECK: Neck soft w/o masses, no JVD CARDIAC: Normal S1 and S2. No S3, S4 or murmurs. LUNGS: Clear to auscultation bilaterally. no wheeze/rhonchi/rales ABDOMEN: Positive bowel sounds. Soft, nontender. No guarding or signs of an acute abdomen MUSCULOSKELETAL: No joint erythema or tenderness. EXTREMITIES: No clubbing, cyanosis or edema PSYCHIATRIC: Appropriate mood and affect Assessment and plan: 1. Acute diverticular bleed Hemodynamically quite stable. Appreciate GI recommendations. Esophagitis is also contributing. Continue to hold aspirin. Blood transfusion today. H&H holding with these transfusions. 2. Status post renal transplant Appreciate nephrology consultation. Serum creatinine has remained stable. Maintain his home mycophenolate mofetil 7 and 50 mg twice daily, Bactrim 1 tablet daily, Prograf 0.5 mg twice daily, 1 mg twice daily. He request nephrology consultation. I do not see any interacting medications with Prograf or need to check a Prograf level but he is quite concerned regarding this. 3. Hyponatremia Appears to be somewhat of a chronic issue. Likely multifactorial. Requires no further work-up. 4. Paroxysmal atrial fibrillation Continue home Cardizem 180 mg extended release daily. Continue home flecainide 50 mg every 8 hours. We will keep the patient on telemetry. He is not on chronic anticoagulation apart from 81 mg aspirin which has been held. 5. Restless leg syndrome Continue home ropinirole 1 mg nightly 6. Pseudoaneurysm of AV fistula Consult to vascular surgery. Exam Physical Exam Vital Signs: Temp Pulse Resp BP Pulse Ox O2 Del Method 97.8 F 79 18 125/70 98 Room Air 06/27/22 15:37 06/27/22 15:37 06/27/22 15:37 06/27/22 15:37 06/27/22 15:37 06/27/22 08:35 Objective Lab Results 06/27/22 05:44 06/27/22 05:44 Meds Allergies and Active Meds Allergies amoxicillin Allergy (Verified 07/02/17 00:25) Unknown Reaction cephalexin Allergy (Verified 07/02/17 00:25) Unknown Reaction erythromycin base [From Erythrocin] Allergy (Verified 07/02/17 00:25) Unknown Reaction Penicillins Allergy (Verified 07/02/17 00:25) Unknown Reaction tobramycin Adverse Reaction (Verified 07/02/17 02:46) Unknown Reaction Active Meds: Active Medications Generic Name Dose Route Start Last Admin Trade Name Freq PRN Reason Stop Dose Admin Acetaminophen 1,000 mg 06/25/22 19:08 Acetaminophen 500 Mg Tablet PO 06/25/23 19:07 Q6HR PRN Pain Scale 1 - 3 or fever Famotidine 20 mg 06/26/22 21:00 06/27/22 08:38 *Patient's Own Med*: Famotidine 20 Mg Tablet PO 06/26/23 20:59 20 mg BID TREMAINE Administration Flecainide Acetate 50 mg 06/27/22 15:00 06/27/22 15:00 *Patient's Own Med*: Flecainide Acetate 50 Mg Tablet PO 06/27/23 14:59 50 mg TID@0900,1500,2100 [facility] Administration Clindamycin Phosphate 600 mg in 50 mls @ 100 mls/hr 06/25/22 19:00 06/27/22 14:50 Cleocin IV Infused Q8H [facility]RE[facility] Infusion Sodium Chloride 1,000 mls @ 0 mls/hr 06/26/22 11:45 06/26/22 11:36 0.9% Sodium Chloride 1,000 Ml IV 06/26/23 11:44 20 mls/hr .Q0M TREMAINE Administration KVO Sodium Chloride 500 mls @ 20 mls/hr 06/27/22 10:03 0.9 % Sodium Chloride IV 06/28/22 10:02 PROTOCOL PRN BLOOD TRANSFUSION Magnesium Oxide 400 mg 06/27/22 12:00 06/27/22 12:03 Magnesium Oxide 400 Mg Tablet PO 06/27/23 11:59 400 mg DAILY@1200 TRE[facility]INE Administration Miscellaneous Information 1 each 06/25/22 20:23 Consult To Pharmacy MISCELLANE 06/25/23 20:22 .PHACONSULT PRN MARKOS.Pharmacy Consult Protocol Mycophenolate Mofetil 750 mg 06/26/22 21:00 06/27/22 08:40 *Patient's Own Med*: Mycophenolate Mofetil 250 Mg Capsule PO 06/26/23 20:59 750 mg BID TREMAINE Administration *Patient's Own Med*: 180 mg 06/27/22 09:00 06/27/22 08:40 Diltiazem Hcl [Dilt- PO 06/27/23 08:59 180 mg Xr] 180 Mg Capsule, QAM TREMAINE Administration Ext.Rel 24h Degradable Pantoprazole Sodium 40 mg 06/26/22 21:00 06/27/22 08:42 Pantoprazole 40 Mg Tablet. PO 06/26/23 20:59 40 mg BID TREMAINE Administration Prednisone 5 mg 06/27/22 09:00 06/27/22 08:38 *Patient's Own Med*: Prednisone 5 Mg Tablet PO 06/27/23 08:59 5 mg DAILY TREMAINE Administration Ropinirole HCl 1 mg 06/26/22 22:00 06/26/22 21:58 *Patient's Own Med*: Ropinirole 1 Mg Tablet PO 06/26/23 21:59 1 mg HS TREMAINE Administration Sodium Biphosphate/Sodium Phosphate 2 each 06/26/22 08:07 Sod. Phosphate (Saline) 1 Each Enema AZ 06/26/23 08:06 ONCE PRN Bleeding Sodium Chloride 0 ml 06/26/22 08:06 06/27/22 14:17 Sodium Chloride 0.9 % 10 Ml Syringe IV-PUSH 06/26/23 08:05 20 ml PRN PRN Administration Flush Sodium Chloride 0 ml 06/26/22 14:00 06/27/22 14:17 Sodium Chloride 0.9 % 10 Ml Syringe IV-PUSH 06/26/23 13:59 10 ml QSHIFT TREMAINE Administration Tacrolimus 0.5 mg 06/26/22 21:00 06/27/22 08:39 *Patient's Own Med*: Tacrolimus 0.5 Mg Capsule PO 06/26/23 20:59 0.5 mg BID TREMAINE Administration Tacrolimus 1 mg 06/26/22 21:00 06/27/22 08:39 *Patient's Own Meds*: Tacrolimus 1 Mg Capsule PO 06/26/23 20:59 1 mg Q12HR TREMAINE Administration Trimethoprim/Sulfamethoxazole 1 tab 06/27/22 09:00 06/27/22 09:00 *Patient's Own Med*: Sulfamethoxazole/Tmp 400-80mg Tablet PO Not Given DAILY TREMAINE Documented By: Chao Curiel DO 06/27/22 16 18 Signed By: <Electronically signed by Chao Curiel DO> 06/27/22 1620 [facility] Work Phone: [phone] Progress note Author Sofia Mcmullen [facility] June 27, 2022 11:38am Note Date/Time June 27, 2022 11: 29am [facility] [address] [place] [address] Nephrology Progress Note Signed Patient: Jagruti Esparza MR#: [id number] : 1955 Acct:[id number] Age/Sex: 66 / M Adm Date: 3 Loc: Room: [address] [place] [address] Type: ADM IN Attending Dr: Chao Curiel DO Copies to: ~ Date of Service: 06/27/2022 Subjective Subjective Narrative: This is a 66-year-old male with a medical history of ESRD s/p renal transplant, atrial flutter, hypertension, secondary hypothyroidism was presented to the [facility] for bright red blood per rectum. Patient has a ESRD due to obstructive uropathy initially was initiated on dialysis in 2007. He subsequently had living unrelated kidney transplant at [facility] in 2012. Patient follows in our office for his transplant care. His renal function has been stable with baseline serum creatinine 0.8 to 1.1 mg/dL. His immunosuppressive regimen includes mycophenolate, prednisone and tacrolimus. He also takes Bactrim for PCP prophylaxis. On evaluation in the emergency room at [facility] he was noticed to have relative hypotension with blood pressure 157. He was also noticed to have a critical anemia with hemoglobin 5.9 g/dL. Patientwas transfused PRBCs and hemoglobin went up appropriately. GI has been consulted and patient undergoing bowel preparation for colonoscopy. Nephrology consulted for his renal transplant and immunosuppression regimen management. Interval history Patient was seen examined at bedside. He is feeling better reported that he still have bloody bowel movement. He had a EGD and colonoscopy yesterday by GI. EGD showed hiatal hernia, severe ulcerative esophagitis and possible Slime esophagitis. He was also found to have a diverticulosis with bleeding. Exam Physical Exam Vital Signs: Temp Pulse Resp BP Pulse Ox O2 Del Method 97.9 F 85 18 116/67 97 Room Air 06/27/22 08:35 06/27/22 08:35 06/27/22 08:35 06/27/22 08:35 06/27/22 08:35 06/27/22 08:35 Narrative: General: Appears comfortable and not in distress Heart: S1-S2, no rub Lung: Bilateral air entry, no wheezing or crackles Abdomen: Soft, positive bowel sounds Extremities: No edema, no cyanosis Head: Atraumatic, normocephalic Ear: No gross hearing Deficit or external ear redness Eyes: No pallor or redness Neck: No JVD or visible mass Skin: No rashes or bruises MEDICAL RESIDENT: Awake,Alert, following simple command Musculoskeletal: No joint swelling or limitation of movement Psychiatric: Cooperative, normal mood and affect Objective Intake and Output I&O: Intake & Output 06/24/22 06/25/22 06/26/22 06/27/22 23:59 23:59 23:59 23:59 Intake Total 350 / 350 1150 / 1150 50 / 50 Output Total 1050 / 1050 0 / 0 Balance 350 / 350 100 / 100 50 / 50 Weight 93.2 kg 92.6 kg 92.6 kg Meds and Allergies Meds: Active Medications Acetaminophen (Acetaminophen 500 Mg Tablet) 1,000 mg PO Q6HR PRN PRN Reason: Pain Scale 1 - 3 or fever Stop: 06/25/23 19:07 Famotidine (*Patient's Own Med*: Famotidine 20 Mg Tablet) 20 mg PO BID [facility] Stop: 06/26/23 20:59 Last Admin: 06/27/22 08:38 Dose: 20 mg Flecainide Acetate (*Patient's Own Med*: Flecainide Acetate 50 Mg Tablet) 50 mgPO TID@0900,1500,2100 [facility] Stop: 06/27/23 14:59 Clindamycin Phosphate (Cleocin) 600 mg in 50 mls @ 100 mls/hr IV Q8H [facility] Last Infusion: 06/27/22 07:00 Dose: Infused Sodium Chloride (0.9% Sodium Chloride 1,000 Ml) 1,000 mls @ 0 mls/hr IV .Q0M [facility] Stop: 06/26/23 11:44 Last Admin: 06/26/22 11:36 Dose: 20 mls/hr Sodium Chloride (0.9 % Sodium Chloride) 500 mls @ 20 mls/hr IV PROTOCOL PRN PRN Reason: BLOOD TRANSFUSION Stop: 06/28/22 10:02 Magnesium Oxide (Magnesium Oxide 400 Mg Tablet) 400 mg PO DAILY@1200 [facility] Stop: 06/27/23 11:59 Miscellaneous Information (Consult To Pharmacy) 1 each MISCELLANE .PHACONSULT PRN; Protocol PRN Reason: MARKOS.Pharmacy Consult Stop: 06/25/23 20:22 Mycophenolate Mofetil (*Patient's Own Med*: Mycophenolate Mofetil 250 Mg Capsule) 750 mg PO BID [facility] Stop: 06/26/23 20:59 Last Admin: 06/27/22 08:40 Dose: 750 mg *Patient's Own Med*: Diltiazem Hcl [Dilt- Xr] 180 Mg Capsule, Ext.Rel 24h Degradable 180 mg PO QAM [facility] Stop: 06/27/23 08:59 Last Admin: 06/27/22 08:40 Dose: 180 mg Pantoprazole Sodium (Pantoprazole 40 Mg Tablet.Dr) 40 mg PO BID [facility] Stop: 06/26/23 20:59 Last Admin: 06/27/22 08:42 Dose: 40 mg Prednisone (*Patient's Own Med*: Prednisone 5 Mg Tablet) 5 mg PO DAILY [facility] Stop: 06/27/23 08:59 Last Admin: 06/27/22 08:38 Dose: 5 mg Ropinirole HCl (*Patient's Own Med*: Ropinirole 1 Mg Tablet) 1 mg PO HS TREMAINE Stop: 06/26/23 21:59 Last Admin: 06/26/22 21:58 Dose: 1 mg Sodium Biphosphate/Sodium Phosphate (Sod. Phosphate (Saline) 1 Each Enema) 2 each AZ ONCE PRN PRN Reason: Bleeding Stop: 06/26/23 08:06 Sodium Chloride (Sodium Chloride 0.9 % 10 Ml Syringe) 0 ml IV-PUSH PRN PRN PRN Reason: Flush Stop: 06/26/23 08:05 Last Admin: 06/26/22 11:35 Dose: 10 ml Sodium Chloride (Sodium Chloride 0.9 % 10 Ml Syringe) 0 ml IV-PUSH QSHIFT TREMAINE Stop: 06/26/23 13:59 Last Admin: 06/27/22 05:35 Dose: 10 ml Tacrolimus (*Patient's Own Med*: Tacrolimus 0.5 Mg Capsule) 0.5 mg PO BID TREMAINE Stop: 06/26/23 20:59 Last Admin: 06/27/22 08:39 Dose: 0.5 mg Tacrolimus (*Patient's Own Meds*: Tacrolimus 1 Mg Capsule) 1 mg PO Q12HR TREMAINE Stop: 06/26/23 20:59 Last Admin: 06/27/22 08:39 Dose: 1 mg Trimethoprim/Sulfamethoxazole (*Patient's Own Med*: Sulfamethoxazole/Tmp 400- 80mg Tablet) 1 tab PO DAILY [facility] Last Admin: 06/27/22 09:00 Dose: Not Given Allergies amoxicillin Allergy (Verified 07/02/17 00:25) Unknown Reaction cephalexin Allergy (Verified 07/02/17 00:25) Unknown Reaction erythromycin base [From Erythrocin] Allergy (Verified 07/02/17 00:25) Unknown Reaction Penicillins Allergy (Verified 07/02/17 00:25) Unknown Reaction tobramycin Adverse Reaction (Verified 07/02/17 02:46) Unknown Reaction Results Labs 06/27/22 05:44 06/27/22 05:44 Labs: 06/27/22 05:44 BUN 9 Creatinine 0.82 Radiology Impressions Impressions - last 24 hours: Any impression(s) listed above is documentation that was entered by the reading physician into a diagnostic report(s) for Jagruti Esparza. I have reviewed the report(s) and am incorporating any findings in the treatment plan of this patient where applicable. A&P - Nephrology Assessment/Plan (1) Renal transplant recipient: Plan: Patient has living unrelated kidney transplant in 2012 with baseline creatinine variable between 0.8-1.1 mg/dL.? He currently on immunosuppression including mycophenolate, tacrolimus and prednisone with stable renal function.? Patient has been compliant with medications. (2) Acute blood loss anemia: Plan: He has acute blood loss anemia due to GI bleed. His hemoglobin went up appropriately with blood transfusion. (3) Secondary hyperparathyroidism: Plan: He has a secondary hyperparathyroidism due to the CKD. (4) Acute lower gastrointestinal bleeding: Plan: He has a acute GI bleed. GI has been consulted and plan to do colonoscopy today. (5) Atrial flutter: Plan: He has a history of a flutter and currently takes Cardizem and flecainide. (6) Hypertensive chronic kidney disease with stage 1 through stage 4 chronic kidney disease, or unspecified chronic kidney disease: Plan: His blood pressure control. He takes hydralazine at home. (7) Pseudoaneurysm of AV hemodialysis fistula: Plan: He has enlarged pseudoaneurysm of AV fistula. He was seen by the vascular surgery recommended no surgical intervention for now. Plan * Patient requested that he would like to take his medication from home. We will continue the same dose of the immunosuppressive regimen which he has been taking for a long time. He is also on Bactrim for PCP prophylaxis. We will continue that as well. * Agreed to hold hydralazine due to the risk of hypotension in setting of GI bleed. * Monitor H&H and transfuse as needed to keep the hemoglobin greater than 7.5 g/dL. * Continue A-flutter management as per the primary hospitalist team. * Check renal function daily monitor input output * Continue management of the GI bleed as per the GI. Patient is currently on both Pepcid and Protonix high-dose. * Consider to stop the antibiotics if there is no source of infection. Documented By: Sofia Mcmullen MD 06/27/221126 Signed By: <Electronically signed by Sofia Mcmullen MD> 06/27/22 1138 [facility] Work Phone: [phone]) 330-730704-15-2023 Progress note Author Alfred Lugo [facility] June 27, 2022 10:06am Note Date/Time June 27, 2022 10: 06am [facility] [address] [place] [address] Gastroenterology PN Signed Patient: Jagruti Esparza MR#: [id number] : 1955 Acct:[id number] Age/Sex: 66 / M Adm Date: 3 Loc: Room: [address] [place] [address] Type: ADM IN Attending Dr: Chao Curiel DO Copies to: MD Alfred Fuller II, MD Michael R. Frings, ~ Date of Service: 06/27/2022 Subjective Subjective Narrative: Patient is complaining of epigastric burning after eating but EGD did show severe ulcerative esophagitis. Hemoglobin is 8.0 this morning after 2 units of blood transfusion. Nephrology does not want him below 7.5 because of his renal transplant. He had a small bowel movement last night a small bowel movement today that both had blood in it. Colonoscopy did show blood in the colon so this may be old blood but only 1 to make sure that he is not having any renewed active bleeding. Exam Physical Exam Vital Signs: Temp Pulse Resp BP Pulse Ox O2 Del Method 97.8 F 71 18 116/60 81 L Room Air 06/27/22 04:00 06/27/22 04:00 06/27/22 04:00 06/27/22 04:00 06/27/22 04:00 06/27/22 04:00 Objective Allergies and Medications Allergies/Adverse Reactions: Allergies Allergy/AdvReac Type Severity Reaction Status Date / Time amoxicillin Allergy Unknown Verified 07/02/17 00:25 Reaction cephalexin Allergy Unknown Verified 07/02/17 00:25 Reaction erythromycin base Allergy Unknown Verified 07/02/17 00:25 [From Erythrocin] Reaction Penicillins Allergy Unknown Verified 07/02/17 00:25 Reaction tobramycin AdvReac Unknown Verified 07/02/17 02:46 Reaction Active Meds: Active Medications Generic Name Dose Route Start Last Admin Trade Name Freq PRN Reason Stop Dose Admin Acetaminophen 1,000 mg 06/25/22 19:08 Acetaminophen 500 Mg Tablet PO 06/25/23 19:07 Q6HR PRN Pain Scale 1 - 3 or fever Famotidine 20 mg 06/26/22 21:00 06/27/22 08:38 *Patient's Own Med*: Famotidine 20 Mg Tablet PO 06/26/23 20:59 20 mg BID TREMAINE Administration Flecainide Acetate 50 mg 06/27/22 09:00 06/27/22 08:58 *Patient's Own Med*: Flecainide Acetate 50 Mg Tablet PO 06/27/23 08:59 50 mg Q8H TREMAINE Administration Clindamycin Phosphate 600 mg in 50 mls @ 100 mls/hr 06/25/22 19:00 06/27/22 05:30 Cleocin IV 100 mls/hr Q8H TREMAINE Administration Sodium Chloride 1,000 mls @ 0 mls/hr 06/26/22 11:45 04/14/23 11:36 0.9% Sodium Chloride 1,000 Ml IV 06/26/23 11:44 20 mls/hr .Q0M TREMAINE Administration KVO Magnesium Oxide 400 mg 06/27/22 09:00 Magnesium Oxide 400 Mg Tablet PO 06/27/23 08:59 DAILY TREMAINE Miscellaneous Information 1 each 06/25/22 20:23 Consult To Pharmacy MISCELLANE 06/25/23 20:22 .PHACONSULT PRN ZZ.Pharmacy Consult Protocol Mycophenolate Mofetil 750 mg 06/26/22 21:00 06/27/22 08:40 *Patient's Own Med*: Mycophenolate Mofetil 250 Mg Capsule PO 06/26/23 20:59 750 mg BID TREMAINE Administration *Patient's Own Med*: 180 mg 06/27/22 09:00 06/27/22 08:40 Diltiazem Hcl [Dilt- PO 06/27/23 08:59 180 mg Xr] 180 Mg Capsule, QAM TREMAINE Administration Ext.Rel 24h Degradable Pantoprazole Sodium 40 mg 06/26/22 21:00 06/27/22 08:42 Pantoprazole 40 Mg Tablet. PO 06/26/23 20:59 40 mg BID TREMAINE Administration Prednisone 5 mg 06/27/22 09:00 06/27/22 08:38 *Patient's Own Med*: Prednisone 5 Mg Tablet PO 06/27/23 08:59 5 mg DAILY TREMAINE Administration Ropinirole HCl 1 mg 06/26/22 22:00 06/26/22 21:58 *Patient's Own Med*: Ropinirole 1 Mg Tablet PO 06/26/23 21:59 1 mg HS TREMAINE Administration Sodium Biphosphate/Sodium Phosphate 2 each 06/26/22 08:07 Sod. Phosphate (Saline) 1 Each Enema AZ 06/26/23 08:06 ONCE PRN Bleeding Sodium Chloride 0 ml 06/26/22 08:06 06/26/22 11:35 Sodium Chloride 0.9 % 10 Ml Syringe IV-PUSH 06/26/23 08:05 10 ml PRN PRN Administration Flush Sodium Chloride 0 ml 06/26/22 14:00 06/27/22 05:35 Sodium Chloride 0.9 % 10 Ml Syringe IV-PUSH 06/26/23 13:59 10 ml QSHIFT TREMAINE Administration Tacrolimus 0.5 mg 06/26/22 21:00 06/27/22 08:39 *Patient's Own Med*: Tacrolimus 0.5 Mg Capsule PO 06/26/23 20:59 0.5 mg BID TREMAINE Administration Tacrolimus 1 mg 06/26/22 21:00 06/27/22 08:39 *Patient's Own Meds*: Tacrolimus 1 Mg Capsule PO 06/26/23 20:59 1 mg Q12HR TREMAINE Administration Trimethoprim/Sulfamethoxazole 1 tab 06/27/22 09:00 06/27/22 09:00 *Patient's Own Med*: Sulfamethoxazole/Tmp 400-80mg Tablet PO Not Given DAILY TREMANIE A&P - Gastroenterology Assessment/Plan (1) GI bleed: Plan: We need to keep an eye on his bowel movements. If we feel he has any renewed active bleeding we will start him on IV octreotide. We will plan additional 2 units of blood transfusion in anticipation of further GI blood loss. Code(s): K92.2 - Gastrointestinal hemorrhage, unspecified Status: Acute Documented By: Alfred Lugo MD 06/27/221003 Signed By: <Electronically signed by MD Alfred Lugo> 06/27/22 1006 [facility] Work Phone: [phone] Consult note Author Tano Stevenson [facility] June 26, 2022 2:44pm Note Date/Time June 26, 2022 2:0 4pm [facility] [address] [place] [address] Vascular Surgery Consult Note Signed Patient: Jagruti Esparza MR#: [id number] : 1955 Acct:[id number] Age/Sex: 66 / M Adm Date: 3 Loc: Room: [address] [place] [address] Type: ADM IN Attending Dr: Chao Curiel DO Copies to: MD Denise Fuller II, MD Chao Ellison, DO~ HPI Consult HPI Reason for consult: Right arm AV fistula History of present illness: Mr. Esparza is a 66-year-old male with past medical history of CKD previously on hemodialysis. He did have a kidney transplant about 10 years ago therefore no longer requiring hemodialysis. 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 When questioned, he denies any pain or issues with his right arm whatsoever. Vascular surgery has been consulted to take a look at his aneurysmal right arm fistula. cc:: CC: Chao Curiel DO Data of Consult Consult date: 06/26/2022 Requesting Physician: Chao Curiel DO Review of Systems Review of Systems All other systems reviewed & are negative unless noted below or in HPI PMFSH Vaccinated for COVID-19?: No Medical History Aortic stenosis Diverticulitis Essential hypertension Fistula RIGHT ARM GI bleed Hiatal hernia Hyperparathyroidism, secondary renal Kidney failure Kidney transplant recipient Surgical History Renal transplant recipient Family History Other CAD (coronary artery disease) Colon cancer Diabetes Social History Smoking Status: Never smoker Substance Use Type: None Allergies & Active Medications Medications and Allergies Allergies amoxicillin Allergy (Verified 07/02/17 00:25) Unknown Reaction cephalexin Allergy (Verified 07/02/17 00:25) Unknown Reaction erythromycin base [From Erythrocin] Allergy (Verified 07/02/17 00:25) Unknown Reaction Penicillins Allergy (Verified 07/02/17 00:25) Unknown Reaction tobramycin Adverse Reaction (Verified 07/02/17 02:46) Unknown Reaction Exam Physical Exam Vital Signs: Temp Pulse Resp BP Pulse Ox O2 Del Method 99.2 F H 74 18 105/51 L 100 Room Air 06/26/22 13:10 06/26/22 13:10 06/26/22 13:10 06/26/22 13:10 06/26/22 13:10 06/26/22 13:10 Narrative: 66-year-old male, no acute distress. He is alert and oriented x3. Heis resting comfortably in his bed visiting with family at bedside. He has no shortness of breath with conversation today. Focused assessment of the right arm shows right upper arm AV fistula which is quite aneurysmal in nature. His fistula has a good thrill and bruit. There are no signs of obstruction by physical exam. He has good hand function. Const General: cooperative, comfortable and no acute distress Results Labs 06/26/22 05:33 06/26/22 05:33 Labs: Laboratory Results - last 24 hr 06/25/22 06/25/22 06/25/22 18:17 18:17 18:18 Corrected WBC 8.1 Uncorrected WBC Count 8.1 RBC 3.14 L Hgb 8.5 L Hct 25.5 L MCV 81.2 L MCH 27.1 L MCHC 33.3 RDW 17.7 H Plt Count 264 MPV 6.0 L Neut % (Auto) 74.1 Lymph % (Auto) 14.4 Mcpherson % (Auto) 10.5 Eos % (Auto) 0.6 Baso % (Auto) 0.4 Nucleat RBC Rel Count 0.1 Neut # (Auto) 6.0 Lymph # (Auto) 1.2 Mcpherson # (Auto) 0.8 Eos # (Auto) 0.0 Baso # (Auto) 0.0 PT 11.7 INR 1.0 APTT < 19.0 L* PHA Creatinine Clear Sodium Potassium Chloride Carbon Dioxide Anion Gap BUN Creatinine Est GFR (CKD-EPI) Glucose Calcium Total Bilirubin AST ALT Alkaline Phosphatase Total Protein Albumin Globulin Albumin/Globulin Ratio Blood Type A Positive Antibody Screen Negative Crossmatch ([facility]) See Detail 06/25/22 06/26/22 06/26/22 18:18 05:33 05:33 Corrected WBC 7.0 Uncorrected WBC Count 7.0 RBC 2.75 L Hgb 7.5 L Hct 22.7 L MCV 82.7 L MCH 27.4 L MCHC 33.1 RDW 17.8 H Plt Count 236 MPV 6.1 L Neut % (Auto) 70.0 Lymph % (Auto) 18.4 Mcpherson % (Auto) 9.2 Eos % (Auto) 1.8 Baso % (Auto) 0.6 Nucleat RBC Rel Count 0.2 Neut # (Auto) 4.9 Lymph # (Auto) 1.3 Mcpherson # (Auto) 0.6 Eos # (Auto) 0.1 Baso # (Auto) 0.0 PT INR APTT PHA Creatinine Clear 95.43 95.14 Sodium 129 L 132 L Potassium 4.6 4.4 Chloride 103 106 Carbon Dioxide 22.6 23.5 Anion Gap 8.0 6.9 BUN 10 9 Creatinine 0.87 0.87 Est GFR (CKD-EPI) > 60.0 > 60.0 Glucose 128 H 109 H Calcium 9.2 8.5 L Total Bilirubin 0.9 AST 12 L ALT 9 Alkaline Phosphatase 46 Total Protein 4.8 L Albumin 2.9 L Globulin 1.9 Albumin/Globulin Ratio 1.5 Blood Type Antibody Screen Crossmatch ([facility]) PT 11.7 Seconds (9.0-12.9) 06/25/22 18:18 APTT < 19.0 Seconds (25.1-36.5) L* 06/25/22 18:18 A&P - Vascular (1) Rectal bleed: Code(s): K62.5 - Hemorrhage of anus and rectum Status: Acute (2) AV fistula: Plan: This patient certainly has a 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 He has no arm pain and noissues with hand function. He has had a kidney transplant and has not required hemodialysis in over 10 years now. He knows if it were to cause him any issues whatsoever we could intervene. At this point in time there is no need for any urgent intervention. We can continue to follow him along outpatient going forward. This is Dr. Stevenson dictating. Mr. Medina was examined on rounds. He has a very large right arm fistula with some mild edema of his right arm. His symptoms are minimal and well-tolerated. He has a successful renal transplant and has not used the fistula in some time. Examination of the fistula suggests it is very high flow but does not have likely high-grade outflow obstruction. Italked with him about potentially ligating the fistula and removing the aneurysmbut he is not interested given his minimal symptoms. He can come and see me at any time if he wishes intervention for his aneurysm fistula. Code(s): I77.0 - Arteriovenous fistula, acquired Status: Acute Documented By: Denise Telles APRN 06/26/22 1 404 Signed By: <Electronically signed by REBEKAH Telles> 06/26/22 1408 <Electronically signed by MD Tano Stevenson> 06/26/22 0275 [facility] Work Phone: [phone]) 811-487504-14-2023 Consult note Author Alfred Lugo [facility] June 26, 2022 1:18pm Note Date/Time June 26, 2022 1:0 8pm [facility] [address] [place] [address] Gastroenterology Consult Note Signed Patient: Jagruti Esparza MR#: [id number] : 1955 Acct:[id number] Age/Sex: 66 / M Adm Date: 3 Loc: Room: [address] [place] [address] Type: ADM IN Attending Dr: Chao Curiel DO Copies to: MD Alfred Fuller II, MD Michael R. Frings, DO~ HPI Data of Consult Date of Consultation: 06/26/22 Requesting Physician: Chao Curiel DO Consult Narrative History of present illness: Mr. Esparza is a 66 year old male who is referred because of GI bleeding. Patient states he has had some brown stool presents with black stool mixed with clots and this started 2 weeks ago but is gradually been getting worse. He alsohas been having some upper abdominal distress and states that he does have a known hiatal hernia. Patient is status post renal transplant and states he has not needed dialysis for 10 years. His renal function is normal. Patient similar bleeding episode back in 2018. EGD was normal colonoscopy showed generalized diverticulosis but there was no blood in the colon at that time. cc:: CC: Chao Curiel DO Review of Systems Review of Systems All other systems reviewed & are negative unless noted below or in HPI PMFSH Vaccinated for COVID-19?: No Medical History (Updated 06/26/22 @ 10:26 by Sofia Mcmullen MD) Aortic stenosis Diverticulitis Essential hypertension Fistula RIGHT ARM GI bleed Hiatal hernia Hyperparathyroidism, secondary renal Kidney failure Kidney transplant recipient Surgical History (Updated 12/21/20 @ 12:02 by Leta Jay MD) Renal transplant recipient Family History (Updated 12/20/20 @ 19:45 by MONIQUE Mohamud) Other CAD (coronary artery disease) Colon cancer Diabetes Social History Smoking Status: Never smoker Substance Use Type: None Meds Medications and Allergies Allergies amoxicillin Allergy (Verified 07/02/17 00:25) Unknown Reaction cephalexin Allergy (Verified 07/02/17 00:25) Unknown Reaction erythromycin base [From Erythrocin] Allergy (Verified 07/02/17 00:25) Unknown Reaction Penicillins Allergy (Verified 07/02/17 00:25) Unknown Reaction tobramycin Adverse Reaction (Verified 07/02/17 02:46) Unknown Reaction Home Medications mycophenolate mofetil 250 mg capsule (CellCept) 750 mg PO BID 07/02/17 [History Confirmed 06/25/22] prednisone 5 mg tablet 5 mg PO DAILY 07/02/17 [History Confirmed 06/25/22] ropinirole 1 mg tablet 1 mg PO HS 07/02/17 [History Confirmed 06/25/22] aspirin 81 mg tablet,delayed release 81 mg PO DAILY 06/25/22 [History Confirmed 06/25/22] clindamycin HCl 300 mg capsule 300 mg PO QID 06/25/22 [History Confirmed 06/25/22] diltiazem HCl 180 mg capsule,extended release 24 hr, controlled (DILT-XR) 180 mgPO QAM 06/25/22 [History Confirmed 06/25/22] famotidine 20 mg tablet 20 mg PO BID 06/25/22 [History Confirmed 06/25/22] flecainide 50 mg tablet 50 mg PO Q8H 06/25/22 [History Confirmed 06/25/22] hydralazine 25 mg tablet 25 mg PO BID 06/25/22 [History Confirmed 06/25/22] magnesium 200 mg tablet 400 mg PO DAILY 06/25/22 [History Confirmed 06/25/22] sulfamethoxazole 400 mg-trimethoprim 80 mg tablet 1 tab PO DAILY 06/25/22 [History Confirmed 06/25/22] tacrolimus 0.5 mg capsule, immediate-release (Prograf) 0.5 mg PO Q12H 06/25/22 [History Confirmed 06/25/22] tacrolimus 1 mg capsule, immediate-release (Prograf) 1 mg PO Q12H 06/25/22 [History Confirmed 06/25/22] Exam Physical Exam Vital Signs: Temp Pulse Resp BP Pulse Ox O2 Del Method 98.8 F 82 20 125/61 98 Room Air 06/26/22 12:10 06/26/22 12:10 06/26/22 12:10 06/26/22 12:10 06/26/22 12:10 06/26/22 11:08 Narrative: Constitutional: Well-developed, well nourished, alert and oriented ?3, in no apparent distress. Large sweet. Head: Normocephalic. Eyes pupils equal and round, reactive to light and accommodation. No icterus or conjunctivitis. Ears: Normal appearance. Neck and nodes: negative Mouth, nose and throat: Normal appearance. Chest: Clear to auscultation and percussion. Heart: Regular rhythm without murmurs or gallops. No thrills or heaves. Abdomen: No distention or tympany. Normal bowel sounds. Liver and spleen normal to percussion and palpation. No masses or tenderness. No bruits heard Rectum: Grossly normal. Extremities: No palmar erythema. No Dupuytren's contractures. No edema noted. Pseudoaneurysm right upper arm Neuro: Grossly negative. Skin: Normal Results Labs Labs: Laboratory Results - last 24 hr 06/25/22 06/25/22 06/25/22 18:17 18:17 18:18 Corrected WBC 8.1 Uncorrected WBC Count 8.1 RBC 3.14 L Hgb 8.5 L Hct 25.5 L MCV 81.2 L MCH 27.1 L MCHC 33.3 RDW 17.7 H Plt Count 264 MPV 6.0 L Neut % (Auto) 74.1 Lymph % (Auto) 14.4 Mcpherson % (Auto) 10.5 Eos % (Auto) 0.6 Baso % (Auto) 0.4 Nucleat RBC Rel Count 0.1 Neut # (Auto) 6.0 Lymph # (Auto) 1.2 Mcpherson # (Auto) 0.8 Eos # (Auto) 0.0 Baso # (Auto) 0.0 PT 11.7 INR 1.0 APTT < 19.0 L* PHA Creatinine Clear Sodium Potassium Chloride Carbon Dioxide Anion Gap BUN Creatinine Est GFR (CKD-EPI) Glucose Calcium Total Bilirubin AST ALT Alkaline Phosphatase Total Protein Albumin Globulin Albumin/Globulin Ratio Blood Type A Positive Antibody Screen Negative Crossmatch (AHG) See Detail 06/25/22 06/26/22 06/26/22 18:18 05:33 05:33 Corrected WBC 7.0 Uncorrected WBC Count 7.0 RBC 2.75 L Hgb 7.5 L Hct 22.7 L MCV 82.7 L MCH 27.4 L MCHC 33.1 RDW 17.8 H Plt Count 236 MPV 6.1 L Neut % (Auto) 70.0 Lymph % (Auto) 18.4 Mcpherson % (Auto) 9.2 Eos % (Auto) 1.8 Baso % (Auto) 0.6 Nucleat RBC Rel Count 0.2 Neut # (Auto) 4.9 Lymph # (Auto) 1.3 Mcpherson # (Auto) 0.6 Eos # (Auto) 0.1 Baso # (Auto) 0.0 PT INR APTT PHA Creatinine Clear 95.43 95.14 Sodium 129 L 132 L Potassium 4.6 4.4 Chloride 103 106 Carbon Dioxide 22.6 23.5 Anion Gap 8.0 6.9 BUN 10 9 Creatinine 0.87 0.87 Est GFR (CKD-EPI) > 60.0 > 60.0 Glucose 128 H 109 H Calcium 9.2 8.5 L Total Bilirubin 0.9 AST 12 L ALT 9 Alkaline Phosphatase 46 Total Protein 4.8 L Albumin 2.9 L Globulin 1.9 Albumin/Globulin Ratio 1.5 Blood Type Antibody Screen Crossmatch (AHG) A&P - Gastroenterology Assessment/Plan (1) Rectal bleed: Code(s): K62.5 - Hemorrhage of anus and rectum Status: Acute Plan Proceed with EGD and colonoscopy Documented By: Alfred Lugo MD 06/26/22 1304 Signed By: <Electronically signed by MD Alfred Lugo> 06/26/22 1318 [facility] Work Phone: 1([phone] 572-781104-14-2023 Progress note Author Chao Curiel [facility] June 26, 2022 11:43am Note Date/Time June 26, 2022 11: 43am [facility] [address] [place] [address] Hospitalist Progress Note Signed Patient: Jagruti Esparza MR#: [id number] : 1955 Acct:[id number] Age/Sex: 66 / M Adm Date: 3 Loc: 3T Room: [address] [place] [address] Type: ADM IN Attending Dr: Chao Curiel DO Copies to: ~ Date of Service: 06/26/2022 Subjective Subjective Narrative: I personally saw and examined the patient at the bedside this morning. Denies abdominal pain. Again describes some pain in the right side of his abdomen a number of days ago that occurred with straining to have a bowel movement. No pain presently. No fevers or chills. No dizziness, chest pain or shortness of breath. Continued large volume maroon/bright red blood stools. Received 1 unitPRBCs last night. Hemoglobin dipped despite this down to 7.5 from 8.5. Patienthas been taking his home medications administered by his . Subsequently he is not receiving the reconciled meds that I have ordered and he states he took his 81 mg aspirin today. Physical Examination: GENERAL APPEARANCE: Alert, up in bed AAOx3 HEENT: NCAT, MMM NECK: Neck soft w/o masses, no JVD CARDIAC: Normal S1 and S2. No S3, S4 or murmurs. LUNGS: Clear to auscultation bilaterally. no wheeze/rhonchi/rales ABDOMEN: Positive bowel sounds. Soft, nontender. No guarding or signs of an acute abdomen MUSCULOSKELETAL: No joint erythema or tenderness. EXTREMITIES: No clubbing, cyanosis or edema PSYCHIATRIC: Appropriate mood and affect Assessment and plan: 1. Acute diverticular bleed Hemodynamically quite stable. The patient took his 81 mg of aspirin this morning. I did not order this on med reconciliation last evening but the patient is refusing medications provided from our pharmacy and is having his does all of his home medications. Continue oral Pepcid at his request. I do not suspect upper GI bleed. Patient is going down for colonoscopy this morning. I explained at length to the patient that this procedure is not without risk however without colonoscopy he is at high risk for ongoing bleeding which at this juncture is essentially uncontrolled. Furthermore I attempted to calm his anxiety regarding his bleeding telling him that he is not requiring the level ofintensive care or serial H&H monitoring. 2. Status post renal transplant Appreciate nephrology consultation. Serum creatinine has remained stable. Maintain his home mycophenolate mofetil 7 and 50 mg twice daily, Bactrim 1 tablet daily, Prograf 0.5 mg twice daily, 1 mg twice daily. He request nephrology consultation. I do not see any interacting medications with Prograf or need to check a Prograf level but he is quite concerned regarding this. 3. Hyponatremia Appears to be somewhat of a chronic issue. Likely multifactorial. Requires no further work-up. 4. Paroxysmal atrial fibrillation Continue home Cardizem 180 mg extended release daily. Continue home flecainide 50 mg every 8 hours. We will keep the patient on telemetry. He is not on chronic anticoagulation apart from 81 mg aspirin which has been held. 5. Restless leg syndrome Continue home ropinirole 1 mg nightly 6. Pseudoaneurysm of AV fistula Consult to vascular surgery. Exam Physical Exam Vital Signs: Temp Pulse Resp BP Pulse Ox O2 Del Method 98.6 F 83 20 124/56 L 98 Room Air 06/26/22 11:10 06/26/22 11:10 06/26/22 11:10 06/26/22 11:10 06/26/22 11:10 06/26/22 11:08 Objective Lab Results 06/26/22 05:33 06/26/22 05:33 Meds Allergies and Active Meds Allergies amoxicillin Allergy (Verified 07/02/17 00:25) Unknown Reaction cephalexin Allergy (Verified 07/02/17 00:25) Unknown Reaction erythromycin base [From Erythrocin] Allergy (Verified 07/02/17 00:25) Unknown Reaction Penicillins Allergy (Verified 07/02/17 00:25) Unknown Reaction tobramycin Adverse Reaction (Verified 07/02/17 02:46) Unknown Reaction Active Meds: Active Medications Generic Name Dose Route Start Last Admin Trade Name Freq PRN Reason Stop Dose Admin Acetaminophen 1,000 mg 06/25/22 19:08 Acetaminophen 500 Mg Tablet PO 06/25/23 19:07 Q6HR PRN Pain Scale 1 - 3 or fever Famotidine 20 mg 06/25/22 21:00 Famotidine 20 Mg Tablet PO 06/25/23 20:59 BID TREMAINE Flecainide Acetate 50 mg 06/25/22 18:15 Flecainide Acetate 50 Mg Tablet PO 06/25/23 18:14 Q8H TREMAINE Sodium Chloride 500 mls @ 20 mls/hr 06/25/22 18:45 0.9 % Sodium Chloride IV 06/26/22 18:44 PROTOCOL PRN BLOOD TRANSFUSION Clindamycin Phosphate 600 mg in 50 mls @ 100 mls/hr 06/25/22 19:00 06/26/22 04:59 Cleocin IV 100 mls/hr Q8H TREMAINE Administration Sodium Chloride 500 mls @ 20 mls/hr 06/26/22 09:04 0.9 % Sodium Chloride IV 06/27/22 09:03 PROTOCOL PRN BLOOD TRANSFUSION Miscellaneous Information 1 each 06/25/22 20:23 Consult To Pharmacy MISCELLANE 06/25/23 20:22 .PHACONSULT PRN ZZ.Pharmacy Consult Protocol Mycophenolate Mofetil 750 mg 06/25/22 21:00 Mycophenolate Mofetil 250 Mg Capsule PO 06/25/23 20:59 BID TREMAINE Non-Formulary Medication 180 mg 06/26/22 09:00 Diltiazem Hcl [Dilt-Xr] PO 06/26/23 08:59 QAM TREMAINE Non-Formulary Medication 400 mg 06/26/22 09:00 Magnesium PO 06/26/23 08:59 DAILY TREMAINE Prednisone 5 mg 06/26/22 09:00 Prednisone 5 Mg Tablet PO 06/26/23 08:59 DAILY TREMAINE Ropinirole HCl 1 mg 06/25/22 22:00 Ropinirole 1 Mg Tablet PO 06/25/23 21:59 HS TREMAINE Sodium Biphosphate/Sodium Phosphate 2 each 06/26/22 08:07 Sod. Phosphate (Saline) 1 Each Enema AZ 06/26/23 08:06 ONCE PRN Bleeding Sodium Chloride 0 ml 06/26/22 08:06 Sodium Chloride 0.9 % 10 Ml Syringe IV-PUSH 06/26/23 08:05 PRN PRN Flush Tacrolimus 0.5 mg 06/25/22 18:15 Tacrolimus 0.5 Mg Capsule PO 06/25/23 18:14 Q12H TREMAINE Tacrolimus 1 mg 06/25/22 18:15 Tacrolimus 1 Mg Capsule PO 06/25/23 18:14 Q12H TREMAINE Trimethoprim/Sulfamethoxazole 1 tab 06/26/22 09:00 Sulfamethoxazole/Tmp 400-80mg Tablet PO DAILY TREMAINE Documented By: Chao Curiel DO 06/26/22 11 31 Signed By: <Electronically signed by Chao Curiel DO> 06/26/22 [facility] Work Phone: [phone]) 994-188304-14-2023 [facility] Consult note Author Sofia Mcmullen [facility] June 26, 2022 10:27am Note Date/Time June 26, 2022 10: 03am [facility] [address] [place] [address] Nephrology Consult Note Signed Patient: Jagrtui Esparza MR#: [id number] : 1955 Acct:[id number] Age/Sex: 66 / M Adm Date: 3 Loc: Room: [address] [place] [address] Type: ADM IN Attending Dr: Chao Curiel DO Copies to: MD Aishwarya Montez II, MD Michael R. Frings, DO~ Providers Consult Date: 06/26/22 Requesting Provider: Chao Curiel DO Primary Care Provider: Aishwarya Lundy II, MD HPI Reason for Consult: Renal transplant and immunosuppressive management. History of Present Illness: This is a 66-year-old male with a medical history of ESRD s/p renal transplant, atrial flutter, hypertension, secondary hypothyroidism was presented to the [facility] for bright red blood per rectum. Patient has a ESRD due to obstructive uropathy initially was initiated on dialysis in 2007. He subsequently had living unrelated kidney transplant at [facility] in 2012. Patient follows in our office for his transplant care. His renal function has been stablewith baseline serum creatinine 0.8 to 1.1 mg/dL. His immunosuppressive regimen includes mycophenolate, prednisone and tacrolimus. He also takes Bactrim for PCP prophylaxis. On evaluation in the emergency room at [facility] he was noticed to have relative hypotension with blood pressure 157. He was also noticed to have a critical anemia with hemoglobin 5.9 g/dL. Patient was transfused PRBCs and hemoglobin went up appropriately. GI has been consulted and patient undergoing bowel preparation for colonoscopy. Nephrology consulted for his renal transplant and immunosuppression regimen management. Patient was seen and examined at bedside he is feeling better. He reported that he has a functioning fistula but has aneurysm and was following with Dr. Stevenson in the past. Review of Systems Review of Systems All other systems reviewed & are negative unless noted below or in HPI Review of systems: Cardiovascular: denies any chest pain, palpitation Pulmonary: denies any cough, hemoptysis Neurological :denies any headache, numbness, weakness Endocrine: denies any polyuria, polydipsia Dermatological: denies any itching or rash PMFSH Vaccinated for COVID-19?: No Medical History (Updated 06/26/22 @ 10:26 by Sofia Mcmullen MD) Aortic stenosis Diverticulitis Essential hypertension Fistula RIGHT ARM GI bleed Hiatal hernia Hyperparathyroidism, secondary renal Kidney failure Kidney transplant recipient Surgical History (Updated 12/21/20 @ 12:02 by Leta Jay MD) Renal transplant recipient Family History (Updated 12/20/20 @ 19:45 by Leanne Schwab NP-C) Other CAD (coronary artery disease) Colon cancer Diabetes Social History Smoking Status: Never smoker Substance Use Type: None Meds Medications & Allergies Allergies amoxicillin Allergy (Verified 07/02/17 00:25) Unknown Reaction cephalexin Allergy (Verified 07/02/17 00:25) Unknown Reaction erythromycin base [From Erythrocin] Allergy (Verified 07/02/17 00:25) Unknown Reaction Penicillins Allergy (Verified 07/02/17 00:25) Unknown Reaction tobramycin Adverse Reaction (Verified 07/02/17 02:46) Unknown Reaction Home Medications mycophenolate mofetil 250 mg capsule (CellCept) 750 mg PO BID 07/02/17 [History Confirmed 06/25/22] prednisone 5 mg tablet 5 mg PO DAILY 07/02/17 [History Confirmed 06/25/22] ropinirole 1 mg tablet 1 mg PO HS 07/02/17 [History Confirmed 06/25/22] aspirin 81 mg tablet,delayed release 81 mg PO DAILY 06/25/22 [History Confirmed 06/25/22] clindamycin HCl 300 mg capsule 300 mg PO QID 06/25/22 [History Confirmed 06/25/22] diltiazem HCl 180 mg capsule,extended release 24 hr, controlled (DILT-XR) 180 mgPO QAM 06/25/22 [History Confirmed 06/25/22] famotidine 20 mg tablet 20 mg PO BID 06/25/22 [History Confirmed 06/25/22] flecainide 50 mg tablet 50 mg PO Q8H 06/25/22 [History Confirmed 06/25/22] hydralazine 25 mg tablet 25 mg PO BID 06/25/22 [History Confirmed 06/25/22] magnesium 200 mg tablet 400 mg PO DAILY 06/25/22 [History Confirmed 06/25/22] sulfamethoxazole 400 mg-trimethoprim 80 mg tablet 1 tab PO DAILY 06/25/22 [History Confirmed 06/25/22] tacrolimus 0.5 mg capsule, immediate-release (Prograf) 0.5 mg PO Q12H 06/25/22 [History Confirmed 06/25/22] tacrolimus 1 mg capsule, immediate-release (Prograf) 1 mg PO Q12H 06/25/22 [History Confirmed 06/25/22] Active Medications: Active Medications Acetaminophen (Acetaminophen 500 Mg Tablet) 1,000 mg PO Q6HR PRN PRN Reason: Pain Scale 1 - 3 or fever Stop: 06/25/23 19:07 Famotidine (Famotidine 20 Mg Tablet) 20 mg PO BID TREMAINE Stop: 06/25/23 20:59 Flecainide Acetate (Flecainide Acetate 50 Mg Tablet) 50 mg PO Q8H TREMAINE Stop: 06/25/23 18:14 Sodium Chloride (0.9 % Sodium Chloride) 500 mls @ 20 mls/hr IV PROTOCOL PRN PRN Reason: BLOOD TRANSFUSION Stop: 06/26/22 18:44 Clindamycin Phosphate (Cleocin) 600 mg in 50 mls @ 100 mls/hr IV Q8H [facility] Last Admin: 06/26/22 04:59 Dose: 100 mls/hr Sodium Chloride (0.9 % Sodium Chloride) 500 mls @ 20 mls/hr IV PROTOCOL PRN PRN Reason: BLOOD TRANSFUSION Stop: 06/27/22 09:03 Miscellaneous Information (Consult To Pharmacy) 1 each MISCELLANE .PHACONSULT PRN; Protocol PRN Reason: ZZ.Pharmacy Consult Stop: 06/25/23 20:22 Mycophenolate Mofetil (Mycophenolate Mofetil 250 Mg Capsule) 750 mg PO BID TREMAINE Stop: 06/25/23 20:59 Non-Formulary Medication (Diltiazem Hcl [Dilt-Xr]) 180 mg PO QAM TREMAINE Stop: 06/26/23 08:59 Non-Formulary Medication (Magnesium) 400 mg PO DAILY TREMAINE Stop: 06/26/23 08:59 Prednisone (Prednisone 5 Mg Tablet) 5 mg PO DAILY TREMAINE Stop: 06/26/23 08:59 Ropinirole HCl (Ropinirole 1 Mg Tablet) 1 mg PO HS TREMAINE Stop: 06/25/23 21:59 Sodium Biphosphate/Sodium Phosphate (Sod. Phosphate (Saline) 1 Each Enema) 2 each AZ ONCE PRN PRN Reason: Bleeding Stop: 06/26/23 08:06 Sodium Chloride (Sodium Chloride 0.9 % 10 Ml Syringe) 0 ml IV-PUSH PRN PRN PRN Reason: Flush Stop: 06/26/23 08:05 Tacrolimus (Tacrolimus 0.5 Mg Capsule) 0.5 mg PO Q12H TREMAINE Stop: 06/25/23 18:14 Tacrolimus (Tacrolimus 1 Mg Capsule) 1 mg PO Q12H TREMAINE Stop: 06/25/23 18:14 Trimethoprim/Sulfamethoxazole (Sulfamethoxazole/Tmp 400-80mg Tablet) 1 tab PO DAILY TREMAINE Exam Physical Exam Vital Signs: Temp Pulse Resp BP Pulse Ox O2 Del Method 97.8 F 78 18 120/68 94 L Room Air 06/26/22 08:36 06/26/22 08:36 06/26/22 08:36 06/26/22 08:36 06/26/22 08:36 06/26/22 08:36 Narrative: General: Appears comfortable and not in distress Heart: S1-S2, no rub Lung: Bilateral air entry, no wheezing or crackles Abdomen: Soft, positive bowel sounds Extremities: No edema, no cyanosis Head: Atraumatic, normocephalic Ear: No gross hearing Deficit or external ear redness Eyes: No pallor or redness Neck: No JVD or visible mass Skin: No rashes or bruises MEDICAL RESIDENT: Awake,Alert, following simple command Musculoskeletal: No joint swelling or limitation of movement Psychiatric: Cooperative, normal mood and affect Results Labs 06/26/22 05:33 06/26/22 05:33 Labs: 06/25/22 06/26/22 18:18 05:33 BUN 10 9 Creatinine 0.87 0.87 Albumin 2.9 L Radiology Impressions Impressions - last 24 hours: Any impression(s) listed above is documentation that was entered by the reading physician into a diagnostic report(s) for Jagruti Esparza. I have reviewed the report(s) and am incorporating any findings in the treatment plan of this patient where applicable. A&P - Nephrology Assessment/Plan (1) Renal transplant recipient: Plan: Patient has living unrelated kidney transplant in 2012 with baseline creatinine variable between 0.8-1.1 mg/dL.? He currently on immunosuppression including mycophenolate, tacrolimus and prednisone with stable renal function.? Patient has been compliant with medications. (2) Acute blood loss anemia: Plan: He has acute blood loss anemia due to GI bleed. His hemoglobin went up appropriately with blood transfusion. (3) Secondary hyperparathyroidism: Plan: He has a secondary hyperparathyroidism due to the CKD. (4) Acute lower gastrointestinal bleeding: Plan: He has a acute GI bleed. GI has been consulted and plan to do colonoscopy today. (5) Atrial flutter: Plan: He has a history of a flutter and currently takes Cardizem and flecainide. (6) Hypertensive chronic kidney disease with stage 1 through stage 4 chronic kidney disease, or unspecified chronic kidney disease: Plan: His blood pressure control. He takes hydralazine at home. (7) Pseudoaneurysm of AV hemodialysis fistula: Plan: He has enlarged pseudoaneurysm of AV fistula. Plan * Patient requested that he would like to take his medication from home. We will continue the same dose of the immunosuppressive regimen which he has been taking for a long time. He is also on Bactrim for PCP prophylaxis. We will continue that as well. * Agreed to hold hydralazine due to the risk of hypotension in setting of GI bleed. * Monitor H&H and transfuse as needed to keep the hemoglobin greater than 7.5 g/dL. * Continue A-flutter management as per the primary hospitalist team. * Check renal function daily monitor input output * Will consult vascular surgery for evaluation of the enlarged pseudoaneurysm. * Thanks for consult. We will continue follow with you. Please recall us with any question. Documented By: Sofia Mcmullen MD 06/26/22 1000 Signed By: <Electronically signed by Sofia Mcmullen MD> 06/26/22 [facility] Work Phone: 1(251) 937-469804-13-2023 History and physical note Author Chao Curiel [facility] June 25, 2022 7:05pm Note Date/Time June 25, 2022 5:4 8pm [facility] [address] [place], [place] [id number] Hospitalist H&P Signed Patient: Jagruti Esparza MR#: [id number] : 1955 Acct:[id number] Age/Sex: 66 / M Adm Date: 3 Loc: 3T Room: 8E6378-9 Type: ADM IN Attending Dr: Chao Curiel DO Copies to: MD Chao Fuller II, DO~ HPI DATE OF EXAMINATION: 06/25/22 CHIEF COMPLAINT: GI bleeding HISTORY OF PRESENT ILLNESS: This patient is a 66-year-old male who presents as a direct admission from the inpatient facility at [facility]. He has a history of kidney transplant,paroxysmal atrial fibrillation and diverticulosis approximately 10 years ago andfollows with Dr. Lopez of nephrology. He reportedly had GI bleeding with occult blood positive stool. Accompanying records indicate that he was admittedfrom the emergency department on 06/24/2022 where he presented with midepigastricpain, diverticulitis and rectal bleeding. Described brown/maroon stools with clots for 2 to 3 days. Endorsed significant weakness and fatigue during that time as well. He had been admitted at this facility the week previous and been discharged/10/04. He had received 3 units of PRBCs and per report had appropriate incrementation of H&H. Received antibiotics on discharge in the form of clindamycin for diverticulitis. Last colonoscopy/EGD reported to be 5 years prior. Vital signs yesterday/03/06 show relative hypotension and blood pressure 100/57,heart rate of 90 bpm, O2 saturation within normal limits on room air. His lactic acid was slightly elevated at 2.8. Coagulation studies within normal limits. Sodium 132, glucose 159, albumin 2.5 with otherwise unremarkable chemistries. H&H significantly abnormal at 5.9/17.9%, CBC otherwise unremarkable. MCV of 81.0. His EKG showed a normal sinus rhythm without any acute abnormalities. Patient was admitted again at this facility with an increase in H&H to 6.7/21.2% the following morning. The patient was kept on hishome immunosuppressants, oral clindamycin and home atrial fibrillation medications. Per accompanying documentation there was consideration of a general surgery consultation for unclear reasons and given his transplant history it was recommended he come to a tertiary care center instead. He was excepted by the daytime hospitalist here earlier today. On arrival his vital signs are stable with a blood pressure of 137/72, heart rate of 94, respirations 20/min, afebrile 97.7 ?F, 99% oxygen saturation on roomair. Patient denies any abdominal pain at the moment. States he has a gurgling sensation in his abdomen. Reports bloody bowel movements usually occurring after these sensations. Patient is extremely anxious regarding his care. Insists on taking his medications exactly on time to the minute, most concerned about his antirejection medications. Concerned about medication interactions with his Prograf. He is quite particular about any medication changes. He requests that his remained at the bedside to administer all ofhis medications. He also requests that any blood transfusions be unvaccinated blood . I did offer him the initiation of a PPI intravenously however he feels that this will cause osteoporosis and cancer and that he would rather stay on his Pepcid orally. He is agreeable to IV clindamycin. His vital signs do not suggest any acute hemorrhage. He denies any chest pain, shortness of breath or palpitations. Physical Examination: GENERAL APPEARANCE: Alert, up in bed AAOx3 HEENT: NCAT, MMM NECK: Neck soft w/o masses, no JVD CARDIAC: Normal S1 and S2. No S3, S4 or murmurs. LUNGS: Clear to auscultation bilaterally. no wheeze/rhonchi/rales ABDOMEN: Positive bowel sounds. Soft, nontender. No guarding or signs of an acute abdomen MUSCULOSKELETAL: No joint erythema or tenderness. EXTREMITIES: No clubbing, cyanosis or edema PSYCHIATRIC: Appropriate mood and affect Assessment and plan: 1. Acute diverticular bleed Patient is quite anxious in regards to this and is requesting blood transfusion immediately. Given his reported rapid bleeding I will transfuse him 1 unit however no further transfusion as his hemoglobin level is 8.5 on arrival. INR is 1.0. We will hold home aspirin. Consult to gastroenterology. He has no signs of active infection. Given his recent history of diverticulitis I will transition his antibiotics to intravenous clindamycin from oral given reported GI side effects of upset stomach. Low suspicion for upper GI bleed. Given his reports of upper GI discomfort I offered him the option of starting on IV PPI however he adamantly refuses this stating PPIs cause cancer and osteoporosis. He would much rather take his oral Pepcid despite his worsening symptoms. 2. Status post renal transplant Serum creatinine appears to be normal. We will maintain his home mycophenolate mofetil 7 and 50 mg twice daily, Bactrim 1 tablet daily, Prograf 0.5 mg twice daily, 1 mg twice daily. He request nephrology consultation. I do not see any interacting medications with Prograf or need to check a Prograf level but he is quite concerned regarding this. Appreciate any recommendations however I feel at this time his blood counts and blood pressure indicate adequate renal perfusion. 3. Hyponatremia Appears to be somewhat of a chronic issue. Likely multifactorial. Requires no further work-up. 4. Paroxysmal atrial fibrillation Continue home Cardizem 180 mg extended release daily. Continue home flecainide 50 mg every 8 hours. We will keep the patient on telemetry. He is not on chronic anticoagulation apart from 81 mg aspirin which has been held. 5. Restless leg syndrome Continue home ropinirole 1 mg nightly Review of Systems Review of Systems All other systems reviewed & are negative unless noted below or in HPI PMFSH Vaccinated for COVID-19?: No Medical History (Updated 12/21/20 @ 13:50 by Marilee Lopez MD) Aortic stenosis Diverticulitis Essential hypertension Fistula RIGHT ARM GI bleed Hiatal hernia Hyperparathyroidism, secondary renal Kidney failure Kidney transplant recipient Surgical History (Updated 12/21/20 @ 12:02 by Leta Jay MD) Renal transplant recipient Family History (Updated 12/20/20 @ 19:45 by MONIQUE Mohamud) Other CAD (coronary artery disease) Colon cancer Diabetes Social History Smoking Status: Never smoker Substance Use Type: None Meds Medications and Allergies Allergies amoxicillin Allergy (Verified 07/02/17 00:25) Unknown Reaction cephalexin Allergy (Verified 07/02/17 00:25) Unknown Reaction erythromycin base [From Erythrocin] Allergy (Verified 07/02/17 00:25) Unknown Reaction Penicillins Allergy (Verified 07/02/17 00:25) Unknown Reaction tobramycin Adverse Reaction (Verified 07/02/17 02:46) Unknown Reaction Home Medications mycophenolate mofetil 250 mg capsule (CellCept) 750 mg PO BID 07/02/17 [History Confirmed 06/25/22] prednisone 5 mg tablet 5 mg PO DAILY 07/02/17 [History Confirmed 06/25/22] ropinirole 1 mg tablet 1 mg PO HS 07/02/17 [History Confirmed 06/25/22] aspirin 81 mg tablet,delayed release 81 mg PO DAILY 06/25/22 [History Confirmed 06/25/22] clindamycin HCl 300 mg capsule 300 mg PO QID 06/25/22 [History Confirmed 06/25/22] diltiazem HCl 180 mg capsule,extended release 24 hr, controlled (DILT-XR) 180 mgPO QAM 06/25/22 [History Confirmed 06/25/22] famotidine 20 mg tablet 20 mg PO BID 06/25/22 [History Confirmed 06/25/22] flecainide 50 mg tablet 50 mg PO Q8H 06/25/22 [History Confirmed 06/25/22] hydralazine 25 mg tablet 25 mg PO BID 06/25/22 [History Confirmed 06/25/22] magnesium 200 mg tablet 400 mg PO DAILY 06/25/22 [History Confirmed 06/25/22] sulfamethoxazole 400 mg-trimethoprim 80 mg tablet 1 tab PO DAILY 06/25/22 [History Confirmed 06/25/22] tacrolimus 0.5 mg capsule, immediate-release (Prograf) 0.5 mg PO Q12H 06/25/22 [History Confirmed 06/25/22] tacrolimus 1 mg capsule, immediate-release (Prograf) 1 mg PO Q12H 06/25/22 [History Confirmed 06/25/22] Exam Physical Exam Vital Signs: Temp Pulse Resp BP Pulse Ox O2 Del Method 97.7 F 94 H 20 137/72 99 Room Air 06/25/22 15:54 06/25/22 15:54 06/25/22 15:54 06/25/22 15:54 06/25/22 15:54 06/25/22 15:54 Documented By: Chao Curiel DO 06/25/22 17 38 Signed By: <Electronically signed by Chao Curiel DO> 06/25/22 1905 [facility] Work Phone: 1(544) 783-109203-20-2023 Evaluation note* Encounter Date Diagnosis Assessment Notes Treatment Notes Treatment Clinical Notes May, Kidney transplant status (ICD-10 - Z94.0) May, Hypertensive chronic kidney disease w stg 1-4/unsp chr kdny (ICD-10 - I12.9) [employer] Other 12-29-2022 Evaluation note* Encounter Date Diagnosis Assessment Notes Treatment Notes Treatment Clinical Notes Feb, Kidney transplant status (ICD-10 - Z94.0) [facility] Other 12-13-2022 Evaluation note* Encounter Date Diagnosis Assessment Notes Treatment Notes Treatment Clinical Notes Feb, Kidney transplant status (ICD-10 - Z94.0) Patient still taking the same immunosuppressant Prograf, CellCept and prednisone along with Bactrim. Prograf level is 9 which is appropriate. I will reduce prografm to 1.5 mg O BID There has been no infection Feb, Secondary hyperparathyroidism of renal origin (ICD-10 - N25.81) He has post transplant resistant second hyperparathyroidism. Last Intact PTH glasses it was 153. He used to have levels more than 250 before. Patient has normal calcium and phosphorus. Patient insurance denied him Sensipar coverage. I will check PTH level next visit Feb, Hypertensive chronic kidney disease w stg 1-4/unsp chr kdny (ICD-10 - I12.9) Controlled patient on hydralazine and diltiazem. 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 He was seen by Dr. Main and he is on observation only. Feb, Hyperlipidemia (ICD- 10 - E78.5) He is working on his weight as well. He did refuse statin because of side effects Feb, Herniation through surgical site (ICD-10 - K43.2) Patient was referred to surgery however he canceled the operation because of COVID-19 infection concenr. He is reluctant to proceed because of risk of surgery.follows with Dr. Garcia locally Feb, BMI 35.0-35.9,adult (ICD-10 - Z68.35) importance of weight loss was addressed. His weight is about the same over the last 6 months Feb, Atrial fibrillation, unspecified type (ICD-10 - I48.91) Patient is taking diltiazem. Heart rate is well controlled. Patient follows with Dr. Hankins [facility] Other 09-07-2022 Evaluation note* Encounter Date Diagnosis Assessment Notes Treatment Notes Treatment Clinical Notes 07 Sep, 2022 Kidney transplant status (ICD-10 - Z94.0) Nov, Restless leg syndrome (ICD-10 - G25.81) [facility] Other 05-11-2022 Evaluation note* Encounter Date Diagnosis Assessment Notes Treatment Notes Treatment Clinical Notes July, Kidney transplant status (ICD-10 - Z94.0) Patient still taking the same immunosuppressant Prograf, CellCept and prednisone along with Bactrim. Prograf level is 7 which is appropriate. I will continue same dose of immunosuppression. There has been no infection July, Secondary hyperparathyroidism of renal origin (ICD-10 - N25.81) He has post transplant resistant second hyperparathyroidism. Intact PTH glasses it was 153. He used to have levels more than 250 before. Patient has normal calcium and phosphorus. Patient insurance denied him Sensipar coverage. I will check PTH level next visit July, Hypertensive chronic kidney disease w stg 1-4/unsp chr kdny (ICD-10 - I12.9) Controlled patient on hydralazine and diltiazem. 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 He was seen by Dr. Main and he is on observation only. July, Hyperlipidemia (ICD- 10 - E78.5) He is working on his weight as well. He did refuse statin because of side effects July, Restless leg syndrom e (ICD-10 - G25.81) July, Herniation through surgical site (ICD-10 - K43.2) Patient was referred to surgery however he canceled the operation because of COVID-19. He is reluctant to proceed because of risk of surgery. July, BMI 35.0-35.9,adult (ICD-10 - Z68.35) importance of weight loss was addressed. His weight is about the same over the last 6 months July, Atrial fibrillation, unspecified type (ICD-10 - I48.91) Patient is taking diltiazem. Heart rate is well controlled. Patient follows with Dr. Hankins [facility] Other 02-25-2021 NotePatient Outreach (COOCC3) JAGRUTI ESPARZA ([id number]) 1955 M TRN Date Time Provider Department 05/09/20 AIMEE PEÑA During your visit today, we recorded the following information about you: Allergies As of Date: 05/09/2020 Noted Allergy Reaction CEPHALEXIN 09/10/2009 4 - Hives Comments: headache TOBRAMYCIN 09/10/2009 Comments: Pain in groin and rectum area DEMERAL (MEPERIDINE) 09/15/2011 14 - Other: See Comments Comments: dizziness ERYTHROMYCIN 01/30/2016 14 - Other: See Comments Comments: headache PENICILLINS 11/21/2007 4 - Hives Comments: At 8 months old, swelling and hives. Date Reviewed: 01/31/2016 Reviewed by: Krista (Rn) LOYD Louie - Fully Assessed Order(s):SARS-COVID VACCINE 1ST DOSE APPT [[id number]] Order #: [id number] FUTURE Prescriptions as of 05/09/2020 Sig: CELLCEPT 250 MG CAPSULE Take 3 capsules by mouth twic* PREDNISONE 5 MG TABLET Take 1 tablet by mouth once d* PROGRAF 1 MG CAPSULE 2 mg AM AND 2 mg PM, 12 hours a* SULFAMETHOXAZOLE 400 MG-TRIME* Take 1 tablet by mouth once d* PANTOPRAZOLE 40 MG TABLET,DEL* Take 1 tablet by mouth twice * SUCRALFATE 100 MG/ML ORAL ALISSA* Take 10 mL by mouth four time* CICLOPIROX 0.77 % TOPICAL CRE* Apply to affected area twice* DEXTRAN 70-HYPROMELLOSE 0.1 %* Use 1 Drop in both eyes as ne* VICKS VAPORUB TOPICAL Apply to affected area twice* DIPHENHYDRAMINE HCL TOPICAL Apply to affected area twice* CINACALCET 60 MG TABLET Take 60 mg by mouth as direct* OMEGA-3 FATTY ACIDS 300 MG CA* Take 1 capsule by mouth twice* PREGABALIN 50 MG CAPSULE Take 50 mg by mouth twice magui* ASPIRIN 81 MG TABLET,DELAYED * Take 1 tablet by mouth once d* ROPINIROLE 1 MG TABLET Take 1 tablet by mouth daily * OXYCODONE-ACETAMINOPHEN 5 MG-* Take 1 tablet by mouth every * Problem List As Of Date 05/09/2020 Noted Resolved END STAGE RENAL DISEASE [N18.6] 11/21/2007 txp eval [Z01.89] 11/22/2007 10/26/2012 obstructive uropathy [NDG3389] 11/22/2007 Abnormal cardiovascular stress test [R94.39] 09/15/2011 GERD (gastroesophageal reflux disease) [K21.9] Gout [M10.9] ESRD (end stage renal disease) [N18.6] HTN (hypertension) [I10] RLS (restless legs syndrome) [G25.81] Peripheral neuropathy [G62.9] Asthma [J45.909] Tachycardia [R00.0] 09/16/2012 C. difficile colitis [A04.72] 09/16/2012 Acute cholecystitis [K81.0] 01/30/2016 Encounter Status:Closed by [employer] on 05/13/20[facility] Evaluation noteNo [employer] Other Evaluation note* Diagnosis Onset Date Resolution Status Acute blood loss anemia acut e Acute lower gastrointestinal bleeding acute Atrial flutter acute AV fistula acute GI bleed acute [id number] acute Hyponatremia acute Pseudoaneurysm of AV hemodialysis fistula acute Rectal bleed acute Renal transplant recipient a cute Secondary hyperparathyroidism acute [facility] Work Phone: Evaluation noteNo assessment information available [facility] Work Phone: Evaluation note* Diagnosis Perforated viscus- Primary Other ill-defined conditions Diverticulitis Diverticulitis of colon (without mention of hemorrhage) History of kidney transplant Kid[facility] by [facility] Diverticulitis- Primary Diverticulitis of colon (without mention of hemorrhage) Diverticulitis Diverticulitis of colon (without mention of hemorrhage) Urinary retention Unspecified retention of urine Encounter for aftercare following kidney transplant Kidney transplant status Kidney transplant status HTN (hypertension) Unspecified essential hypertension Atrial flutter ([facility]) Atrial flutter Mild aortic stenosis Aortic valve disorders documented in this encounter [facility] Work Phone: Evaluation note* Diagnosis Right upper quadrant abdominal pain- Primary Right upper quadrant abdominal pain Atrial flutter, unspecified type ([facility]) Mild aortic stenosis Aortic valve disorders Sepsis, due to unspecified organism, unspecified whether acute organ dysfunction present ([facility]) NSTEMI (non-ST elevated myocardial infarction) ([facility]) Acute myocardial infarction, subendocardial infarction, episode of care unspecified Cholecystitis Cholecystitis, unspecified Sepsis due to Escherichia coli with acute organ dysfunction, unspecified organ dysfunction type, unspecified whether septic shock present ([facility]) Kidney transplant status Primary hypertension Unspecified essential hypertension Typical atrial flutter ([facility]) Urinary obstruction Sepsis ([facility]) NSTEMI (non-ST elevated myocardial infarction) ([facility]) Acute myocardial infarction, subendocardial infarction, episode of care unspecified Sepsis, due to unspecified organism, unspecified whether acute organ dysfunction present ([facility]) NSTEMI (non-ST elevated myocardial infarction) ([facility]) Acute myocardial infarction, subendocardial infarction, episode of care unspecified documented in this encounter [facility] Work Phone: Evaluation note* Diagnosis Coronary artery disease involving koi coronary artery of koi heart without angina pectoris Primary hypertension Unspecified essential hypertension Typical atrial flutter ([facility]) Never smoked any substance documented in this encounter [facility] Work Phone: Evaluation note* Diagnosis Scrotal abscess- Primary Other inflammatory disorder of male genital organs Scrotal wall abscess 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 Scrotal abscess Other inflammatory disorder of male genital organs Lower extremity edema Edema Localized swelling of left lower leg Post-operative state Other postprocedural status Scrotal wall abscess 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 ESRD (end stage renal disease) ([facility]) End stage renal disease documented in this encounter [facility] Work Phone: Evaluation note* Diagnosis Hypomagnesemia- Primary Disorders of magnesium metabolism documented in this encounter [facility] Work Phone: Evaluation note* Diagnosis Scrotal abscess Other inflammatory disorder of male genital organs Infected hydrocele Escherichia coli infection Escherichia coli (E. 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 S/P orchiectomy Acquired absence of organ, genital organs Infected hydrocele BPH with obstruction/lower urinary tract symptoms Cholecystitis Cholecystitis, unspecified documented in this encounter [facility] Work Phone: Evaluation note* Diagnosis Cholecystitis Cholecystitis, unspecified documented in this encounter [facility] Work Phone: Evaluation note* Diagnosis Cholecystitis- Primary Cholecystitis, unspecified Cholecystitis Cholecystitis, unspecified Chronic heart failure, unspecified heart failure type ([facility]) Heart failure with improved ejection fraction (HFimpEF) ([facility]) Encounter for preprocedural cardiovascular examination Pain at surgical site Post-operative state Other postprocedural status Encounter for cholecystectomy Scrotal abscess Other inflammatory disorder of male genital organs ESRD (end stage renal disease) ([facility]) End stage renal disease Kidney transplant recipient Urinary tract infection Urinary tract infection, site not specified Hiatal hernia Diaphragmatic hernia without mention of obstruction or gangrene documented in this encounter [facility] Work Phone: Evaluation note* Diagnosis Onset Date Resolution Status Anemia acute BMI 35.0-35.9,adult acute Hemodialysis AV fistula aneurysm acute [id number] acute Hypomagnesemia acute Hypophosphatemia acute Secondary hyperparathyroidism acute Status post kidney transplant acute [facility] Work Phone: History general Narrative - Reported* Type Description Date Medical History Hypertension Medical History skin cancers Medical History ESRD Medical History gallstones Medical History FISTULA IN RIGHT ARM Medical History diverticulosis Medical History Afib Surgical History neck surgery 1995- Surgical History vasectomy 1981 Surgical History Creation right radiocephalic AV F 08/2007 Surgical History Creation right brachiocephalic AVF 11/2007 Surgical History kidney removed 2009 Surgical History Fistulogram 06/2011 Surgical History Fistulogram/balloon angioplasty cephalic vein using a 10 mm and 12 mm balloons 08/2011 Surgical History kidney transplant 07/2012 Surgical History cancer, skin, 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 Surgical History skin cancer removal,ear 06/2014 Surgical History COLONOSCOPY AND EGD 07/2017 Surgical History skin lesions x 3 09/2020 Hospitalization History peritonitis Hospitalization History right kidney transplant 07/25 Hospitalization History DIVERTICULITIS 07/2017 [facility] Other [facility]v general Narrative - Reported* Type Description Date Medical History Hypertension Medical History skin cancers Medical History ESRD Medical History gallstones Medical History FISTULA IN RIGHT ARM Medical History diverticulosis Medical History Afib Medical History STOMACH ULCERS Surgical History neck surgery 1995- Surgical History vasectomy 1981 Surgical History Creation right radiocephalic AV F 08/2007 Surgical History Creation right brachiocephalic AVF 11/2007 Surgical History kidney removed 2009 Surgical History Fistulogram 06/2011 Surgical History Fistulogram/balloon angioplasty cephalic vein using a 10 mm and 12 mm balloons 08/2011 Surgical History kidney transplant 07/2012 Surgical History cancer, skin, 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 He is done well. He denies any angina CHF or arrhythmia symptomatology. We reviewed his recent testing and his stress test demonstrated no ischemiano infarct and normal ejection fraction. Echo also normal ejection fraction but he did have aortic valve disease that does require reassessment, and because of this we will perform an echocardiogram to evaluate his aortic stenosis * In regards to his atrial arrhythmia appears to be well controlled. Auscultation demonstrates regular rhythm and EKG demonstrates sinus rhythm with an acceptable QT interval and consequently flecainide dosage does not require adjustment. He has had no palpitation chest pain dyspnea or other cardiac complaints. He does have a renal transplant and this was discussed in detail. He had numerous questions regarding diet fruit juice etc. and also had some questions regarding his cardiac meds and how they are affected by his renal transplant. I advised him that we are able to quantify flecainide level through the EKG and presently the dose appears to be an acceptable dose. Because of all the above we suggest no change. We did advocate diet and weight loss. [id number] Work Phone: History of Present illness Narrative* Patient returns for follow-up of problems as noted. He is done well. He denies any angina CHF or arrhythmia symptomatology. We reviewed his recent testing and his stress test demonstrated no ischemiano infarct and normal ejection fraction. Echo also normal ejection fraction but he did have aortic valve disease that does require reassessment, and because of this we will perform an echocardiogram to evaluate his aortic stenosis * In regards to his atrial arrhythmia appears to be well controlled. Auscultation demonstrates regular rhythm and EKG demonstrates sinus rhythm with an acceptable QT interval and consequently flecainide dosage does not require adjustment. He has had no palpitation chest pain dyspnea or other cardiac complaints. He does have a renal transplant and this was discussed in detail. He had numerous questions regarding diet fruit juice etc. and also had some questions regarding his cardiac meds and how they are affected by his renal transplant. I advised him that we are able to quantify flecainide level through the EKG and presently the dose appears to be an acceptable dose. Because of all the above we suggest no change. We did advocate diet and weight loss. [facility] Work Phone: History of Present illness Narrative* Had GI bleed and 12 unit blood transfusion * Patient returns in follow-up of problems as noted. In the interim he is done well. He had a life-threatening gastrointestinal bleed necessitating multiple blood transfusions. Because of this he was instructed to stop all antiplatelet and antithrombotic therapy and I believe this is reasonable. It appears that sinus rhythm is well maintained on flecainide therapy because of this we believe the atrial flutter to be adequately controlled. He was educated regarding symptoms watch for and encouragedto call if they arise. Increased body mass index was noted and the merits of diet and weight loss since favorable impact on arrhythmia as well as blood pressure were discussed. We also reviewed with him his recent echocardiogram from several months ago. It is basically normal except for mild aorticstenosis not in need of intervention. Annual echocardiography was discussed and explained. [facility] DO Work Phone: Hospital course Narrative No data available for this section [facility] Additional Instructions CBC and BMP in 1 week- send results to PCP.[facility] Work Phone: Hospital Discharge instructions No data available for this section [facility]* Attachments The following attachments cannot be sent through Care Everywhere. * Heart Failure Discharge Instructions, Adult (Mexican) * Cholecystectomy Discharge Instructions (Mexican) * Dru-Gee Drain (Mexican) * Surgical Wound Discharge Instructions (Mexican) documented in this [facility] Work Phone: Progress note No data available for this section [facility] Consultation (Routine) - Authorized Specialty Diagnoses / Procedures Referred By Tiburcio adrian Referred To Contact General Surgery Diagnoses Sepsis due to Escherichia coli with acute organ dysfunction, unspecified organ dysfunction type, unspecified whether septic shock present ([facility]) [place] [id number] [address] Department of Medicine-General Internal [place] [id number] Referral ID Status Reason Start Date Expiration Date Visits Requested Visits Authorized [id number] Authorized Specialty Services Required 3 03/04/2024 1 1 * Consultation (Routine) - Authorized Specialty Diagnoses / Procedures Referred By Contean t Referred To Contact Family Medicine Diagnoses Sepsis due to Escherichia coli with acute organ dysfunction, unspecified organ dysfunction type, unspecified whether septic shock present ([facility]) [place] [id number] [address] Department of [place] [address] [facility] [place] [address] Referral ID Status Reason Start Date Expiration Date Visits Requested Visits Authorized [id number] Authorized Specialty Services Required 3 03/04/2024 1 1 * Consultation (Routine) - Authorized Specialty Diagnoses / Procedures Referred By Contac t Referred To Contact General Surgery Diagnoses Sepsis due to Escherichia coli with acute organ dysfunction, unspecified organ dysfunction type, unspecified whether septic shock present ([facility]/HCC) [place] [address] [facility] Department of [place] [id number] [phone] Referral ID Status Reason Start Date Expiration Date Visits Requested Visits Authorized [id number] Authorized Specialty Services Required 3 03/04/2024 1 1 * Consultation (Routine) - Authorized Specialty Diagnoses / Procedures Referred By Contac t Referred To Contact Cardiology Diagnoses Atrial flutter, unspecified type (CMS/HCC) Hailee Moe APRN-ASPHALT SCREED OPERATOR [address] [facility] [place] [address] Hernandez Hankins MD [address] [place] [address] Referral ID Status Reason Start Date Expiration Date Visits Requested Visits Authorized [id number] Authorized Specialty Services Required 3 03/03/2024 1 1 * Home Health (Routine) - Authorized Specialty Diagnoses / Procedures Referred By Contac t Referred To Contact Home Health Services Diagnoses Sepsis due to Escherichia coli with acute organ dysfunction, unspecified organ dysfunction type, unspecified whether septic shock present (CMS/HCC) [place] [address] [facility] [place] [address] Referral ID Status Reason Start Date Expiration Date Visits Requested Visits Authorized [id number] Authorized Specialty Services Required 3 03/02/2024 999 999 * (Routine) - Authorized Specialty Diagnoses / Procedures Referred By Contac t Referred To Contact General Surgery Diagnoses Cholecystitis Procedures Follow up in Trauma Surgery [facility] [address] [facility] [phone] Referral ID Status Reason Start Date Expiration Date V isits Requested Visits Authorized [id number] Authorized 03/01/2023 02/29/2024 1 1 * Imaging (Routine) - Pending Review Specialty Diagnoses / Procedures Referred By Contac t Referred To Contact Radiology Diagnoses Cholecystitis Procedures IR biliary cholangiogram [facility] [address] [facility] [place] [phone] Referral ID Status Reason Start Date Expiration Date Visits Requested Visits Authorized [id number] Pending Review Perform Procedure 3 02/29/2024 1 1 [facility] Work Phone: Reason for referral (narrative)* Consultation (Routine) - Authorized Specialty Diagnoses / Procedures Referred By Contac t Referred To Contact General Surgery Diagnoses Post-operative state Procedures Follow Up In General Surgery Kay Gutierrez PA-C [address] [place] [address] Referral ID Status Reason Start Date Expiration Date V isits Requested Visits Authorized [id number] Authorized 04/16/2023 04/15/2024 1 1 * Home Health (Routine) - Authorized Specialty Diagnoses / Procedures Referred By Contac t Referred To Contact Home Health Services Diagnoses Dahiana's gangrene Scrotal abscess Sopko, Von M, UNLEAVENED DOUGH 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 [address] [facility] [place] [address] Referral ID Status Reason Start Date Expiration Date Visits Requested Visits Authorized [id number] Authorized Specialty Services Required 04/16/2023 04/15/2024 999 999 [facility] Work Phone: Reason for referral (narrative)* Consultation (Routine) - Authorized Specialty Diagnoses / Procedures Referred By Contac t Referred To Contact Nephrology Diagnoses Kidney transplant recipient Procedures Follow [place] [address] [place] [address] Thel[place] Diaz [place] [id number] [place] [address] Department [place] [address] Referral ID Status Reason Start Date Expiration Date V isits Requested Visits Authorized [id number] Authorized 06/21/2023 06/20/2024 1 1 * Consultation (Routine) - Authorized Specialty Diagnoses / Procedures Referred By Contac t Referred To Contact Urology Diagnoses Scrotal abscess Procedures [place] [address] [place] [address] Peter Gallagher MD [facility] [address] [place] [address] Referral ID Status Reason Start Date Expiration Date V isits Requested Visits Authorized [id number] Authorized 06/21/2023 06/20/2024 1 1 * Consultation (Routine) - Authorized Specialty Diagnoses / Procedures Referred By Contac t Referred To Contact General Surgery Diagnoses Post-operative state Procedures [place] [address] [place] [address] Referral ID Status Reason Start Date Expiration Date V isits Requested Visits Authorized [id number] Authorized 06/21/2023 06/20/2024 1 1 * Consultation (Routine) - Authorized Specialty Diagnoses / Procedures Referred By Tiburcio adrian Referred To Contact General Surgery Diagnoses Post-operative state Procedures Follow [place] [address] [place] [address] Referral ID Status Reason Start Date Expiration Date V isits Requested Visits Authorized [id number] Authorized 06/21/2023 06/20/2024 1 1 [facility] Work Phone: Family History No Family History Records FoundUnknown Family Member Name Dates Details Family history of cardiovasc ular disease: Father(V17.49, Z82.49) Status:Active Family history of diabetes m ellitus: Mother(V18.0, Z83.3) Status:Active Family history of malignant neoplasm of colon: Mother(V16.0, Z80.0) Status:Active Heart problem: Father Status:Active High serum cholestanol: Moth er Status:Active S/P CABG x 4: Father(V45.81, Z95.1) Status:Active Unknown Family Member Name Dates Details Family history of cardiovasc ular disease: Father(V17.49, Z82.49) Status:Active Family history of diabetes m ellitus: Mother(V18.0, Z83.3) Status:Active Family history of malignant neoplasm of colon: Mother(V16.0, Z80.0) Status:Active Heart problem: Father Status:Active High serum cholestanol: Moth er Status:Active S/P CABG x 4: Father(V45.81, Z95.1) Status:Active Unknown Family Member Name Dates Details Family history of cardiovasc ular disease: Father(V17.49, Z82.49) Status:Active Family history of diabetes m ellitus: Mother(V18.0, Z83.3) Status:Active Family history of malignant neoplasm of colon: Mother(V16.0, Z80.0) Status:Active Heart problem: Father Status:Active High serum cholestanol: Moth er Status:Active S/P CABG x 4: Father(V45.81, Z95.1) Status:Active Unknown Family Member Name Dates Details Family history of cardiovasc ular disease: Father(V17.49, Z82.49) Status:Active Family history of diabetes m ellitus: Mother(V18.0, Z83.3) Status:Active Family history of malignant neoplasm of colon: Mother(V16.0, Z80.0) Status:Active Heart problem: Father Status:Active High serum cholestanol: Moth er Status:Active S/P CABG x 4: Father(V45.81, Z95.1) Status:Active Unknown Family Member Name Dates Details Family history of cardiovasc ular disease: Father(V17.49, Z82.49) Status:Active Family history of malignant neoplasm of colon: Mother(V16.0, Z80.0) Status:Active Heart problem: Father Status:Active High serum cholestanol: Moth er Status:Active S/P CABG x 4: Father(V45.81, Z95.1) Status:Active Family history of diabetes m ellitus: Mother(V18.0, Z83.3) Comments:passed; Status:Active Unknown Family Member Name Dates Details Family history of cardiovasc ular disease: Father(V17.49, Z82.49) Status:Active Family history of malignant neoplasm of colon: Mother(V16.0, Z80.0) Status:Active Heart problem: Father Status:Active High serum cholestanol: Moth er Status:Active S/P CABG x 4: Father(V45.81, Z95.1) Status:Active Family history of diabetes m ellitus: Mother(V18.0, Z83.3) Comments:passed; Status:Active Relationship Condition Age at Onset Recorded Date/T lesa Not Specified Malignant neoplasm of colon Unknown Diabetes mellitus Unknown Coronary artery disease Unknown Unknown Family Member Name Dates Details Family history of cardiovasc ular disease: Father(V17.49, Z82.49) Status:Active Family history of malignant neoplasm of colon: Mother(V16.0, Z80.0) Status:Active Heart problem: Father Status:Active High serum cholestanol: Moth er Status:Active S/P CABG x 4: Father(V45.81, Z95.1) Status:Active Family history of diabetes m ellitus: Mother(V18.0, Z83.3) Comments:passed; Status:Active Unknown Family Member Name Dates Details Family history of cardiovasc ular disease: Father(V17.49, Z82.49) Status:Active Family history of malignant neoplasm of colon: Mother(V16.0, Z80.0) Status:Active Heart problem: Father Status:Active High serum cholestanol: Moth er Status:Active S/P CABG x 4: Father(V45.81, Z95.1) Status:Active Family history of diabetes m ellitus: Mother(V18.0, Z83.3) Comments:passed; Status:Active Relationship Condition Age at Onset Recorded Date/T lesa Not Specified Malignant neoplasm of colon Unknown Diabetes mellitus Unknown Coronary artery disease Unknown brother Hypertension Unknown father Unknown Not Specified Unknown Malignant neoplasm Unknown Family history of colon cancer Unknown natural son Heart disease Unknown sister Multiple sclerosis Unknown Hypertension Unknown Summary Purpose Advance Directives No Advanced Directives Records Found Advance Directive Response Recorded Date/ Time Advance Directives No July 02, 018 12:13am Latest Code Status on File Code Status Date Activated Date Inactivated Comments Full Code 01/10/2023 4:24 AM Question Answer Comments Plan of Care: Code Status Discussion Not Compl eted Decision Maker: Provider Rationale: Patient condition do es not warrant discussion Latest Code Status on File Code Status Date Activated Date Inactivated Comments Full Code 02/25/2023 3:42 AM Question Answer Comments Plan of Care: Code Status Discussion Not Compl eted Decision Maker: Provider Rationale: Patient lacks capaci ty/Care Team unable to identify or reach proxy Code Status History Code Status Date Activated Date Inactivated Comments Full Code 01/10/2023 4:24 AM 01/21/2023 7:52 PM Question Answer Comments Plan of Care: Code Status Discussion Not Compl eted Decision Maker: Provider Rationale: Patient condition do es not warrant discussion Latest Code Status on File Code Status Date Activated Date Inactivated Comments Full Code 02/25/2023 3:42 AM Question Answer Comments Plan of Care: Code Status Discussion Not Compl eted Decision Maker: Provider Rationale: Patient lacks capaci ty/Care Team unable to identify or reach proxy Code Status History Code Status Date Activated Date Inactivated Comments Full Code 01/10/2023 4:24 AM 01/21/2023 7:52 PM Question Answer Comments Plan of Care: Code Status Discussion Not Compl eted Decision Maker: Provider Rationale: Patient condition do es not warrant discussion Latest Code Status on File Code Status Date Activated Date Inactivated Comments Full Code 04/13/2023 11:55 PM Question Answer Comments Plan of Care: Code Status Discussion Completed Decision Maker: Patient Code Status History Code Status Date Activated Date Inactivated Comments Full Code 02/25/2023 3:42 AM 04/13/2023 11:55 PM Question Answer Comments Plan of Care: Code Status Discussion Not Compl eted Decision Maker: Provider Rationale: Patient lacks capaci ty/Care Team unable to identify or reach proxy Full Code 01/10/2023 4:24 AM 01/21/2023 7:52 PM Question Answer Comments Plan of Care: Code Status Discussion Not Compl eted Decision Maker: Provider Rationale: Patient condition do es not warrant discussion Latest Code Status on File Code Status Date Activated Date Inactivated Comments Full Code 04/13/2023 11:55 PM Question Answer Comments Plan of Care: Code Status Discussion Completed Decision Maker: Patient Code Status History Code Status Date Activated Date Inactivated Comments Full Code 02/25/2023 3:42 AM 04/13/2023 11:55 PM Question Answer Comments Plan of Care: Code Status Discussion Not Compl eted Decision Maker: Provider Rationale: Patient lacks capaci ty/Care Team unable to identify or reach proxy Full Code 01/10/2023 4:24 AM 01/21/2023 7:52 PM Question Answer Comments Plan of Care: Code Status Discussion Not Compl eted Decision Maker: Provider Rationale: Patient condition do es not warrant discussion Chief Complaint JAGRUTI ESPARZA is being seen for 8 month follow up.JAGRUTI ESPARZA is being seen for 8 month follow up.JAGRUTI ESPARZA is being seen for a 6 month follow-up of. Chief Complaint and Reason for Visit Chief Complaint GI Bleed Reason for Visit Acute blood loss ane claudy Acute lower gastrointestinal bleeding Atrial flutter AV fistula GI bleed [id number] Hyponatremia Pseudoaneurysm of AV hemodialysis fistula Rectal bleed Renal transplant recipient Secondary hyperparathyroidism Chief Complaint stomach issues Chief Complaint RENAL 6 MONTH F/U Reason for Visit Anemia BMI 35.0-35.9,adult Hemodialysis AV fistula aneurysm [id number] Hypomagnesemia Hypophosphatemia Secondary hyperparathyroidism Status post kidney transplant Reason for Referral Specialty Diagnoses / Procedures Referred By Contac t Referred To Contact Radiology Diagnoses Cholecystitis Procedures IR biliary cholangiogram Janette Singh, UNLEAVENED DOUGH 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 [address] [facility] [place] [address] Referral ID Status Reason Start Date Expiration Date Visits Requested Visits Authorized [id number] Pending Review Perform Procedure 3 02/29/2024 1 1 Specialty Diagnoses / Procedures Referred By Tiburcio adrian Referred To Contact Radiology Diagnoses Scrotal abscess Infected hydrocele Escherichia coli infection Slime parapsilosis infection Procedures IR CVC removal Consult to Interventional Radiology [place] [facility] MICHAEL CVC W/O SUBQ PORT/SYNTHETIC [place] [address] [place] [address] Referral ID Status Reason Start Date Expiration Date Visits Requested Visits Authorized [id number] Pending Review Perform Procedure 05/12/2023 05/11/2024 1 1 Specialty Diagnoses / Procedures Referred By Tiburcio adrian Referred To Contact Home Health Services Diagnoses Diverticulitis Felipa Bell, UNLEAVENED DOUGH 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 [address] [facility] [place] [address] Referral ID Status Reason Start Date Expiration Date Visits Requested Visits Authorized [id number] Authorized Specialty Services Required 01/20/2023 01/20/2024 999 999 Additional Source Comments (unrecognized sect ion and content) No Status Records FoundNo Status Records FoundNo Status Records FoundNo Status Records FoundNo Status Records FoundNo Status Records FoundNo Status Records FoundNo Status Records FoundNo Status Records FoundNo Status Records FoundNo Status Records FoundNo Status Records Found INFORMATION SOURCE (unrecogn ized section and content) DATE CREATED AUTHOR 04/23/2021 [facility] DATE CREATED AUTHOR AUTHOR'S ORGANIZ ATION 07/13/2022 [facility] DATE CREATED AUTHOR AUTHOR'S ORGANIZ ATION 08/21/2022 [facility] DATE CREATED AUTHOR AUTHOR'S ORGANIZ ATION 09/26/2022 [facility] DATE CREATED AUTHOR AUTHOR'S ORGANIZ ATION 01/20/2023 [facility] DATE CREATED AUTHOR AUTHOR'S ORGANIZ ATION 06/11/2023 [facility] DATE CREATED AUTHOR AUTHOR'S ORGANIZ ATION 06/19/2023 [facility] DATE CREATED AUTHOR AUTHOR'S ORGANIZ ATION 07/11/2023 [facility]ical [facility] DATE CREATED AUTHOR AUTHOR'S ORGANIZ ATION 09/10/2023 [facility] DATE CREATED AUTHOR AUTHOR'S ORGANIZ ATION 11/05/2023 [facility] DATE CREATED AUTHOR AUTHOR'S ORGANIZ ATION 11/30/2023 [facility] DATE CREATED AUTHOR AUTHOR'S ORGANIZ ATION 12/01/2023 [facility] REASON FOR VISIT (unrecogniz ed section and content) Reason Comments Consult with specialist Surgical consult Specialty Diagnoses / Procedures Referred By Contac t Referred To Contact Diagnoses Diverticulitis perforated viscous Procedures no coded [place] [address] [facility] [place] [address] [facility] [id number] [place], [place] [phone] Referral ID Status Reason Start Date Expiration Date Visits Re quested Visits Authorized [id number] 1 1 Reason Comments Abdominal Pain Specialty Diagnoses / Procedures Referred By Contac t Referred To Contact Diagnoses Right upper quadrant abdominal pain Abdominal [place] [address] Department of Surgery-[place] [id number] [facility] [place] [address] [place] [address] Referral ID Status Reason Start Date Expiration Date Visits Re quested Visits Authorized [id number] 1 1 Reason Comments Hospital Follow-up discharge 03/06, [facility] discharge Reason Comments Groin Swelling Specialty Diagnoses / Procedures Referred By Contac t Referred To Contact Diagnoses Dahiana's gangrene Scrotal abscess Scrotal wall abscess scrotal abscess Procedures NA Peter Gallagher MD [facility] [address] [place] [address] [facility] [address] [place] [phone] Referral ID Status Reason Start Date Expiration Date Visits Re quested Visits Authorized [id number] 1 1 Reason Comments Irregular Heart Beat Specialty Diagnoses / Procedures Referred By Contac t Referred To Contact Radiology Diagnoses Scrotal abscess Infected hydrocele Escherichia coli infection Slime parapsilosis infection Procedures IR CVC removal Consult to Interventional Radiology [place] RM[place] MICHAEL CVC W/O SUBQ PORT/SYNTHETIC GEM PRESS OPERATOR Jimenez Junior MD [id number] [place] [address] Referral ID Status Reason Start Date Expiration Date Visits Requested Visits Authorized [id number] Pending Review Perform Procedure 05/12/2023 05/11/2024 1 1 Reason Comments Establish Care Specialty Diagnoses / Procedures Referred By Contac t Referred To Contact Radiology Diagnoses Cholecystitis Procedures IR biliary cholangiogram Janette Singh, UNLEAVENED DOUGH 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 [id number] [place] [address] [place] [address] Referral ID Status Reason Start Date Expiration Date Visits Requested Visits Authorized [id number] Pending Review Perform Procedure 3 02/29/2024 1 1 Reason Comments Abdominal Pain Specialty Diagnoses / Procedures Referred By Contac t Referred To Contact Diagnoses Cholecystitis abd. pain Procedures [place] [address] [facility] [place] [address] [facility] [id number] [place] [phone] Referral ID Status Reason Start Date Expiration Date Visits Re quested Visits Authorized [id number] 1 1 Care Teams (unrecognized sec tion and content) Team Status: Active Member Role Status Dates Aishwarya Lundy II MD Primary Care Provider Active Team Status: Inactive Member Role Status Dates Aishwarya Lundy II MD Primary Care Provider Active Chao Curiel DO Admit Provider Active Hitesh Pedroza MD Other Provider Active Alfred Lugo MD Other Provider Active Ekaterina Zelaya LPN Other Provider Active Tano Stevenson MD Other Provider Active Denise Telles , ACADEMIC ADVISEMENT DIRECTOR-C Other Provider Active Yoandy Dobbs MD Other Provider Active Maxwell Resendiz MD Other Provider Active Stanley Le MD Attending Provider Active Team Status: Inactive Member Role Status Dates Aishwarya Lundy II MD Primary Care Provider Active Eduard Martinez DO RES Active Matthew Marin DO Emergency Provider Active Stock Counter Relationship Specialty Start Date End Date Aishwarya Lundy MD [address] [place] [address] PCP - General 09/25/22 Stock Counter Relationship Specialty Start Date End Date Aishwarya Lundy MD [address] [place] [address] PCP - General 09/25/22 Stock Counter Relationship Specialty Start Date End Date Aishwarya Lundy MD [address] [place] [address] PCP - General 09/25/22 Ava Nixon RN Care Hydraulic Dredge Operator 03/09/23 Stock Counter Relationship Specialty Start Date End Date Aishwarya Lundy MD [address] [place] [address] PCP - General 09/25/22 Ava Nixon RN Care Hydraulic Dredge Operator 03/09/23 Stock Counter Relationship Specialty Start Date End Date Aishwarya Lundy MD [address] [place] [address] PCP - General Internal Medicine 08/31/22 Stock Counter Relationship Specialty Start Date End Date Aishwarya Lundy MD [address] [place] [address] PCP - General 09/25/22 Ava Nixon, twisting frame fixerHydraulic Dredge Operator 03/09/23 Stock Counter Relationship Specialty Start Date End Date Aishwarya Lundy MD [address] [place] [address] PCP - General 09/25/22 Ava Nixon RN Care Hydraulic Dredge Operator 03/09/23 Stock Counter Relationship Specialty Start Date End Date Aishwarya Lundy MD [address] [place] [address] PCP - General 09/25/22 Stock Counter Relationship Specialty Start Date End Date Aishwarya Lundy MD [address] [place] [address] PCP - General 09/25/22 Stock Counter Relationship Specialty Start Date End Date Aishwarya Lundy MD [address] [place] [address] PCP - General 09/25/22 Team Status: Inactive Member Role Status Dates Aishwarya Lundy II MD Primary Care Provider Active Start: July 13, 2023 End: July 13, 2023 Hitesh Pedroza MD Attending Provider Active Star t: July 13, 2023 End: July 13, 2023 Goals (unrecognized section and content) Goals may be documented in a n alternate section Scheduled Active and Recently Administ ered Medications (unrecognized section and content) Medication Order 01/08/2023 01/09/2023 01/10/2023 flecainide (TAMBOCOR) TABS 50 mg, Oral, 3 TIMES DAILY, First dose on 01/09/23 at 2246, Until Discontinued 224 (Hold/Not Given - Provider: Fabio Richter RN - Reason: Previously Administered - Comment: pt took medications brought from home before RN was able to get medicine) 0600 (Due)1400 (Due)2200 (Due) iohexol (OMNIPAQUE) 350 MG/ML injection (COMPLETED) 100 mL, Intravenous Push, Once at Radiology exam, 1 dose, Starting on 01/09/23 at 1834, Until 01/09/23 at 1834, Imaging Protocol Orders 1834 (Given - Provider: Yaneli Hutton) meropenem (MERREM)1 g in 50 mL IVPB duplex 1,000 mg, Intravenous, EVERY 8 HOURS ANTIBIOTIC, First dose on 01/09/23 at 2241, Until Discontinued 2353 (IV New Bag - Provider: Fabio Richter RN) 0129 (IV Stop - Provider: Fabio Richter RN)0600 (Due)1400 (Due)2200 (Due) mycophenolate (CELLCEPT) capsule 750 mg, Oral, 2 TIMES DAILY, First dose on 01/09/23 at 2246, Until Discontinued 224 (Hold/Not Given - Provider: Fabio Richter RN - Reason: Previously Administered - Comment: pt took medications brought from home before RN was able to get medicine) 0900 (Due)2100 (Due) tacrolimus (PROGRAF) 1.5 mg 1.5 mg, Oral, 2 TIMES DAILY, First dose on 01/09/23 at 2246, Until Discontinued 224 (Hold/Not Given - Provider: Fabio Richter RN - Reason: Previously Administered - Comment: pt took medications brought from home before RN was able to get medicine) 0900 (Due)2100 (Due) Continuous Medication Order 01/08/2023 01/09/2023 01/10/2023 lactated ringers iv infusion Intravenous, at 75 mL/hr, CONTINUOUS, Starting on 01/10/23 at 0055, Until Discontinued 0045 (IV New Bag - P rovider: Fabio Richter RN)0312 (IV Stop - Provider: Fabio Richter RN) Scheduled Medication Order 01/19/2023 01/20/2023 01/21/2023 acetaminophen (Tylenol) tablet 650 mg 650 mg, oral, Every 6 hours, First dose (after last modification) on Wed01/13/23 at 1130, If ordered PRN for pain, nurse is permitted to administer this medication for higher pain scores based on patient preference? Yes 0530 (Not Given - Provider: Karime Grimm RN - Reason: Patient/family refused)1029 (Given - Provider: Lizet Villar RN)1740 (Given - Provider: Lizet Villar RN)2330 (Not Given - Provider: Karime Grimm RN - Reason: Patient/family refused) 0530 (Not Given - Provider: Karime Grimm RN - Reason: Patient/family refused)0829 (Given - Provider: Lizet Villar RN)1706 (Given - Provider: Lizet Villar RN) 0046 (Given - Provider: Katina King RN - Comment: patient requet)0619 (Given - Provider: Katina King, LOYD)1121 (Given - Provider: Angelika Francisco, LOYD)1731 (Given - Provider: Angelika Francisco, LOYD)2330 (Due) albuterol nebulizer solution 1.25 mg 1.25 mg, nebulization, Once, On Wed01/19/23 at 0815, For 1 dose, Phase II/On Unit 0815 (Due) dilTIAZem CD (Cardizem CD) 24 hr capsule 180 mg 180 mg, oral, Daily, First dose (after last modification) on Wed01/15/23 at 0600, Do not crush, chew, or split. 1029 (Given - Provider: Lizet Villar RN) 0829 (Given - Provider: Lizet Villar, LOYD) 1121 (Given - Provider: Angelika Francisco, LOYD) flecainide (Tambocor) tablet 50 mg 50 mg, oral, Every 8 hours, First dose on Wed01/10/23 at 1430 1030 (Given - Provider: Lizet Villar, RN)1740 (Given - Provider: Lizet Villar, RN)2110 (Given - Provider: Karime Grimm RN) 0829 (Given - Provider: Lizet Villar RN)1706 (Given - Provider: Lizet Villar RN) 0047 (Given - Provider: Katina King RN)0958 (Given - Provider: Angelika Francisco, LOYD)1731 (Given - Provider: Angelika Francisco RN) gabapentin (Neurontin) capsule 300 mg 300 mg, oral, 3 times daily, First dose on Wed01/19/23 at 1000, Capsules may be opened and sprinkled on food (eg, applesauce, orange juice, pudding 1029 (Given - Provider: Lizet Villar RN)1455 (Given - Provider: Lizet Villar RN)2110 (Given - Provider: Karime Grimm RN) 0829 (Given - Provider: Lizet Villar RN)1706 (Given - Provider: Lizet Villar RN) 0047 (Given - Provider: Katina King RN - Comment: patient request)0953 (Given - Provider: Angelika Francisco, LOYD)1541 (Given - Provider: Radha Hurtado RN)2100 (Due) heparin (porcine) injection 5,000 Units 5,000 Units, subcutaneous, Every 8 hours, First dose on Wed01/15/23 at 1700 0202 (Given - Provider: Karime Grimm, LOYD)1029 (Given - Provider: Lizet Villar RN)1740 (Given - Provider: Lizet Villar RN) 0202 (Given - Provider: Karime Grimm RN)0829 (Given - Provider: Lizet Villar RN)1707 (Given - Provider: Lizet Villar RN) 0046 (Given - Provider: Katina King RN)0953 (Given - Provider: Angelika Francisco, LOYD)1731 (Given - Provider: Angelika Francisco, LOYD) magnesium sulfate IV 4 g (COMPLETED) 4 g, intravenous, at 25 mL/hr, Administer over 4 Hours, Once, On Wed01/19/23 at 1000, For 1 dose 1030 (New Bag - Provider: Lizet Villar RN)1430 (Stopped - Provider: Lizet Villar RN) mycophenolate (Cellcept) capsule 500 mg 500 mg, oral, 2 times daily, First dose on Wed01/13/23 at 0900 0900 (Dose Auto Held - Provider: Marc Alba MD)2100 (Not Given - Provider: Karime Grimm, LOYD - Reason: See Provider Order) 09 (Dose Auto Held - Provider: Marc Alba MD)2099 (Dose Auto Held - Provider: Marc Alba MD) 09 (Not Given - Provider: Angelika Francisco RN - Reason: See Provider Order)2099 (Dose Auto Held - Provider: Marc Alba MD) pantoprazole (ProtoNix) EC tablet 20 mg 20 mg, oral, 2 times daily, First dose on 01/10/23 at 1100, Do not crush, chew, or split. 1029 (Given - Provider: Lizet Villar RN)2109 (Given - Provider: Karime Grimm RN) 08 (Given - Provider: Lizet Villar RN)2058 (Given - Provider: Katina King, LOYD) 0953 (Given - Provider: Angelika Francisco, RN)2099 (Due) polyethylene glycol (Glycolax, Miralax) packet 17 g 17 g, oral, Daily, First dose on Wed01/19/23 at 1145 1455 (Given - Provider: Lizet Villar, LOYD) 0829 (Given - Provider: Lizet Villar RN) 09 (Not Given - Provider: Angelika Francisco, LOYD - Reason: Patient/family refused) predniSONE (Deltasone) tablet 5 mg 5 mg, oral, Daily, First dose on 01/10/23 at 1430 1029 (Given - Provider: Lizet Villar RN) 08 (Given - Provider: Lizet Villar RN) 0953 (Given - Provider: Angelika Francisco, LOYD) rOPINIRole (Requip) tablet 1 mg 1 mg, oral, Nightly, First dose on Wed01/10/23 at 2100 2109 (Given - Provider: Karime Grimm, LOYD) 2058 (Given - Provider: Katina King, LOYD) 2099 (Due) tacrolimus (Prograf) capsule 0.5 mg 0.5 mg, oral, User specified (2 times per day), First dose (after last modification) on Wed01/18/23 at 0630, Do NOT give until daily tacrolimus level has been drawn (order in for 430 AM) 0638 (Given - Provider: Karime Grimm, RN)1740 (Given - Provider: Lizet Villar RN) 0639 (Given - Provider: Karime Grimm RN)1805 (Given - Provider: Lizet Villar RN) 0619 (Given - Provider: Katina King, LOYD)1731 (Given - Provider: Angelika Francisco, LOYD) PRN Medication Order 01/19/2023 01/20/2023 01/21/2023 lubricating eye drops ophthalmic solution 2 drop 2 drop, Both Eyes, As needed, dry eyes, Starting on 01/11/23 at 0848 oxyCODONE (Roxicodone) immediate release tablet 10 mg 10 mg, oral, Every 6 hours PRN, pain severe (7-10), first line, Starting on Wed01/13/23 at 1120, If ordered PRN for pain, nurse is permitted to administer this medication for higher pain scores based on patient preference? Yes oxyCODONE (Roxicodone) immediate release tablet 5 mg 5 mg, oral, Every 6 hours PRN, pain moderate (4-6), first line, Starting on Wed01/13/23 at 1120, If ordered PRN for pain, nurse is permitted to administer this medication for higher pain scores based on patient preference? Yes 1749 (Given - Provider: Lizet Villar RN) 1706 (Given - Provider: Lizet Villar RN) 0046 (Given - Provider: Katina King, LOYD)0649 (Given - Provider: Katina King RN)1541 (Given - Provider: Radha Hurtado RN) Scheduled Medication Order 03/04/2023 03/05/2023 03/06/2023 apixaban (Eliquis) tablet 5 mg 5 mg, oral, Every 12 hours, First dose on Rina 03/04/23 at 1000 1036 (Given - Provider: Sarah Lopez RN)2123 (Given - Provider: Sarah Lopez RN) 0924 (Given - Provider: Sarah Lopez, LOYD)211 (Given - Provider: Jacob De Oliveira RN) 0946 (Given - Provider: Ana Oropeza RN)2047 (Given - Provider: Eduard Nixon RN) aspirin chewable tablet 81 mg 81 mg, oral, Daily, First dose on Wed02/26/23 at 1200 0926 (Given - Provider: Sarah Lopez RN) 0924 (Given - Provider: Sarah Lopez RN) 0946 (Given - Provider: Ana Oropeza RN) atorvastatin (Lipitor) tablet 40 mg 40 mg, oral, Nightly, First dose on Wed02/26/23 at 2100 2124 (Given - Provider: Sarah Lopez RN) 2113 (Given - Provider: Jacob De Oliveira RN) 2047 (Given - Provider: Eduard Nixon, RN) azaTHIOprine (Imuran) tablet 50 mg 50 mg, oral, Daily, First dose on Wed03/02/23 at 0900, Patient can start after antibiotics are complete. 0926 (Given - Provider: Sarah Lopez RN) 0925 (Given - Provider: Sarah Lopez RN) 09 (Given - Provider: Ana Oropeza RN) dilTIAZem XR (Dilacor XR) 24 hr capsule 180 mg 180 mg, oral, Daily, First dose on Wed02/25/23 at 0900, HOLD FOR HR<60, SBP<95 Do not crush, chew, or split. 0900 (Not Given - Provider: Sarah Lopez RN - Reason: Medication not available) 0900 (Given - Provider: Sarah Lopez RN) 0900 (Given - Provider: Ana Oropeza RN) empagliflozin (Jardiance) tablet 10 mg 10 mg, oral, Daily, First dose on Wed03/03/23 at 1830 0926 (Given - Provider: Sarah Lopez RN) 0924 (Given - Provider: Sarah Lopez RN) 0946 (Given - Provider: Ana Oropeza RN) magnesium oxide (Mag-Ox) tablet 800 mg 800 mg, oral, Daily, First dose on Wed03/04/23 at 0915 1036 (Given - Provider: Sarah Lopez RN) 09 (Given - Provider: Sarah Lopez RN) 09 (Given - Provider: Ana Oropeza RN) metoprolol tartrate (Lopressor) injection 5 mg 5 mg, intravenous, Once, On Wed03/02/23 at 1200, For 1 dose, FOR CORONARY CTA PROCEDURE USE ONLY First dose after oral metoprolol if heart rate remains greater than 60 bpm and systolic blood pressure greater than 100 mmHg. Total IV dose not to exceed 25 mg. Do not administer if: heart rate is less than 55 and systolic blood pressure is less than 90 mmHg or allergy to beta aron. metoprolol tartrate (Lopressor) tablet 100 mg 100 mg, oral, Once, On Wed03/02/23 at 0000, For 1 dose, FOR CORONARY CTA PROCEDURE USE ONLY First Dose in CDU/Floor. Vital Signs every 1 hour. Until after 30 minutes when scan completed. Do Not Administer if: heart rate is less than 55 and systolic blood pressure is less than 90 mmHg or allergic to beta aron. metoprolol tartrate (Lopressor) tablet 100 mg 100 mg, oral, Once, On Wed03/02/23 at 1200, For 1 dose, FOR CORONARY CTA PROCEDURE USE ONLY First Dose in CDU/Floor. Vital Signs every 1 hour. Until after 30 minutes when scan completed. Do Not Administer if: heart rate is less than 55 and systolic blood pressure is less than 90 mmHg or allergic to beta aron. pantoprazole (ProtoNix) EC tablet 40 mg 40 mg, oral, Daily before breakfast, First dose on Wed02/28/23 at 0700, Do not crush, chew, or split. 0758 (Given - Provider: Onelia Crisostomo RN) 0612 (Given - Provider: Adriana Weber RN) 0945 (Given - Provider: Ana Oropeza, LOYD) polyethylene glycol (Glycolax, Miralax) packet 17 g 17 g, oral, Daily, First dose on Wed03/03/23 at 0945 0926 (Given - Provider: Sarah Lopez RN) 0925 (Given - Provider: Sarah Lopez, LOYD) 0950 (Given - Provider: Ana Oropeza, LOYD) predniSONE (Deltasone) tablet 5 mg 5 mg, oral, Daily, First dose on Rina 02/25/23 at 0900 0926 (Given - Provider: Sarah Lopez RN) 0924 (Given - Provider: Sarah Lopez RN) 0946 (Given - Provider: Ana Oropeza, LOYD) rOPINIRole (Requip) tablet 1 mg 1 mg, oral, Nightly, First dose on 02/28/23 at 2330, Indications: restless leg syndrome 2122 (Given - Provider: Sarah Lopez RN) 2113 (Given - Provider: Jacob De Oliveira RN) 2047 (Given - Provider: Eduard Nixon RN) sodium chloride 0.9% flush 10 mL 10 mL, intra-catheter, Every 12 hours, First dose on Rina 02/25/23 at 1415, If port not in use (each lumen) using push-pause method. PRN per flush policy. 0215 (Not Given - Provider: Onelia Crisostomo RN - Reason: Other - Comment: needed)1453 (Given - Provider: Sarah Lopez RN) 0137 (Given - Provider: Adriana Weber RN)1451 (Given - Provider: Sarah Lopez RN) 0215 (Not Given - Provider: Jacob De Oliveira RN - Reason: Loss of IV access)1415 (Not Given - Provider: Ana Oropeza RN - Reason: Loss of IV access) sodium zirconium cyclosilicate (Lokelma) packet 5 g 5 g, oral, Once, On Rina 03/04/23 at 0715, For 1 dose 0715 (Not Given - Provider: Onelia Crisostomo RN - Reason: Other - Comment: not needed) sulfamethoxazole-trimeth oprim (Bactrim) 400-80 mg per tablet 1 tablet 1 tablet, oral, Every morning, First dose on Rina 02/25/23 at 0900, Suspected Indication (Select all that apply): Medical Prophylaxis 09 (Given - Provider: Sarah Lopez RN) 0925 (Given - Provider: Sarah Lopez RN) 0945 (Given - Provider: Ana Oropeza RN) tacrolimus (Prograf) capsule 0.5 mg 0.5 mg, oral, 2 times daily, First dose on Rina 02/25/23 at 0800 0925 (Given - Provider: Sarah Lopez RN)2123 (Given - Provider: Sarah Lopez RN) 923 (Given - Provider: Sarah Lopez RN)2113 (Given - Provider: Jacob De Oliveira RN) 0946 (Given - Provider: Ana Oropeza, RN)2047 (Given - Provider: Eduard Nixon, RN) tamsulosin (Flomax) 24 hr capsule 0.4 mg 0.4 mg, oral, Daily, First dose on Wed02/26/23 at 1745, Give 30 minutes after the same mealtime each day. Capsules should be swallowed whole; do not crush, chew, or open. 925 (Given - Provider: Sarah Lopez RN) 923 (Given - Provider: Sarah Lopez RN) 945 (Given - Provider: Ana Oropeza, LOYD) PRN Medication Order 03/04/2023 03/05/2023 03/06/2023 acetaminophen (Tylenol) tablet 650 mg 650 mg, oral, Every 6 hours PRN, pain moderate (4-6), first line, Starting on Wed03/01/23 at 0845, If ordered PRN for pain, nurse is permitted to administer this medication for higher pain scores based on patient preference? Yes 2123 (Given - Provider: Sarah Lopez RN) 1244 (Given - Provider: Sarah Lopez RN) 09 (Given - Provider: Ana Oropeza, RN)1946 (Given - Provider: Eduard Nixon, RN) alteplase (Cathflo Activase) injection 2 mg 2 mg, intra-catheter, As needed, line care, Starting on Rina 02/25/23 at 1358, Via PICC Line Removed by: Aspiration Inject into partial/totally occluded catheter lumen for total of 30 to 120 minute dwell time; assess patency at 30 minutes and if not patent, dwell for additional 90 minutes. If still not patent, repeat alteplase 2 mg injected into thrombotic partial or totally occluded lumen for a total of 120 minute dwell time; assess patency at 30 minutes and if not patent, dwell for 90 minutes. If still not patent, notify provider. Dilute each 2 mg vial with 2.2 mL sterile water to give 1 mg/mL final concentration. Swirl gently to mix; do not shake. benzocaine-menthol (Cepastat Sore Throat) 15-3.6 mg lozenge 1 lozenge 1 lozenge, Mouth/Throat, Every 2 hour PRN, sore throat, Starting on Wed03/02/23 at 0840 benzonatate (Tessalon) capsule 100 mg 100 mg, oral, 3 times daily PRN, cough, Starting on Wed03/02/23 at 1037, Do not crush or chew. dextrose 10 % in water (D10W) infusion 0.3 g/kg/hr 86.2 kg (258.6 mL/hr), intravenous, Once as needed, For blood glucose less than 70 mg/dL after 30 minutes of intervention. Discontinue once blood glucose reaches 100 mg/dL., Starting on Wed02/25/23 at 0342, For 1 dose, Discontinue once blood glucose reaches 100 mg/dL. dextrose 10 % in water (D10W) infusion 0.3 g/kg/hr 86.1 kg (258.3 mL/hr), intravenous, Once as needed, For blood glucose less than 70 mg/dL after 30 minutes of intervention. Discontinue once blood glucose reaches 100 mg/dL., Starting on Wed02/25/23 at 1129, For 1 dose, Discontinue once blood glucose reaches 100 mg/dL. dextrose 50 % injection 25 g 25 g, intravenous, Every 15 min PRN, For blood glucose less than or equal to 40 mg/dL, Starting on Wed02/25/23 at 0342, May repeat until blood glucose level reaches 100 mg/dL or greater. Push 2 - 3 mL/minute if patient has secure IV access. dextrose 50 % injection 25 g 25 g, intravenous, Every 15 min PRN, For blood glucose less than or equal to 40 mg/dL, Starting on Wed02/25/23 at 1129, May repeat until blood glucose level reaches 100 mg/dL or greater. Push 2 - 3 mL/minute if patient has secure IV access. glucagon (Glucagen) injection 1 mg 1 mg, intramuscular, Every 15 min PRN, low blood sugar - see comments, For blood glucose less than or equal to 70 mg/dL and no IV access, Starting on Wed02/25/23 at 0342, Give until blood glucose is 100 mg/dL or greater. If patient DOES NOT HAVE secure IV access & patient is unconscious, NPO or is unable to eat or drink. glucagon (Glucagen) injection 1 mg 1 mg, intramuscular, Every 15 min PRN, low blood sugar - see comments, For blood glucose less than or equal to 70 mg/dL and no IV access, Starting on Wed02/25/23 at 1129, Give until blood glucose is 100 mg/dL or greater. If patient DOES NOT HAVE secure IV access & patient is unconscious, NPO or is unable to eat or drink. oxyCODONE (Roxicodone) immediate release tablet 2.5 mg 2.5 mg, oral, Every 4 hours PRN, pain moderate (4-6), first line, Starting on Wed02/26/23 at 1122, If ordered PRN for pain, nurse is permitted to administer this medication for higher pain scores based on patient preference? Yes 0959 (Given - Provider: Ana Oropeza RN)1947 (Given - Provider: Eduard Nixon RN) oxyCODONE (Roxicodone) immediate release tablet 5 mg 5 mg, oral, Every 4 hours PRN, pain severe (7-10), first line, Starting on Wed02/26/23 at 1121, If ordered PRN for pain, nurse is permitted to administer this medication for higher pain scores based on patient preference? Yes 212 (Given - Provider: Sarah Lopez RN) 0131 (Given - Provider: Adriana Weber, LOYD)0611 (Given - Provider: Adriana Weber, LOYD)1246 (Given - Provider: Sarah Lopez, LOYD)1724 (Given - Provider: Sarah Lopez RN) 0958 (Not Given - Provider: Ana Oropeza RN - Reason: Other - Comment: 2.5 mg was given for pain of 6)0097 (Given - Provider: Eduard Nixon RN) sodium chloride ([place]) 0.65 % nasal spray 1 spray 1 spray, Each Nostril, 4 times daily PRN, congestion, Starting on Wed03/02/23 at 0840 sodium chloride 0.9% flush 10 mL 10 mL, intra-catheter, As needed, line care, After each use (each lumen) using push-pause method., Starting on 02/25/23 at 1400, Flush port according to flush policy: to maintain line patency. Scheduled Medication Order 04/19/2023 04/20/2023 04/21/2023 acetaminophen (Tylenol) tablet 650 mg 650 mg, oral, 3 times daily, First dose on Wed04/16/23 at 0900, If ordered PRN for pain, nurse is permitted to administer this medication for higher pain scores based on patient preference? Yes 09 (Given - Provider: Kurt Chao RN)144 (Given - Provider: Kurt Chao RN)2014 (Given - Provider: Zeynep Pham RN) 0828 (Given - Provider: Jessica Cabrera RN)150 (Given - Provider: Jessica Cabrera RN)210 (Given - Provider: Arnulfo Kraft RN) 0858 (Given - Provider: Fausto Álvarez, LOYD)143 (Given - Provider: Fausto Álvarez RN)2099 (Due) apixaban (Eliquis) tablet 5 mg 5 mg, oral, 2 times daily, First dose on Wed04/16/23 at 1045 0900 (Not Given - Provider: Kurt Chao RN - Reason: See Provider Order)1159 (Unheld by provider - Provider: Etta Roth MD)2016 (Given - Provider: Zeynep Pham RN) 0828 (Given - Provider: Jessica Cabrera RN)2108 (Given - Provider: Arnulfo Kraft RN) 0856 (Given - Provider: Fausto Álvarez RN)2100 (Due) aspirin chewable tablet 81 mg 81 mg, oral, Daily, First dose on Wed04/16/23 at 1045 0928 (Given - Provider: Kurt Chao RN) 0828 (Given - Provider: Jessica Cabrera RN) 0857 (Given - Provider: Fausto Álvarez RN) atorvastatin (Lipitor) tablet 40 mg 40 mg, oral, Nightly, First dose on Wed04/16/23 at 2100 2015 (Given - Provider: Zeynep Pham RN) 210 (Given - Provider: Arnulfo Kraft RN) 2100 (Due) dilTIAZem CD (Cardizem CD) 24 hr capsule 180 mg 180 mg, oral, Daily, First dose on Wed04/18/23 at 0900, Do not crush, chew, or split. 09 (Given - Provider: Kurt hCao RN) 08 (Given - Provider: Jessica Cabrera, LOYD) 08 (Given - Provider: Fausto Álvarez, LOYD) ertapenem (INVanz) 1 g in sodium chloride 0.9% 50 mL IV 1 g, intravenous, at 100 mL/hr, Administer over 30 Minutes, Every 24 hours, First dose on Wed04/18/23 at 0700, Suspected Indication (Select all that apply): Cellulitis, Skin and Soft Tissue 1243 (New Bag - Provider: Kurt Chao RN)1313 (Stopped - Provider: Kurt Chao RN) 1202 (New Bag - Provider: Jessica Cabrera RN)1232 (Stopped - Provider: Jessica Cabrera RN) 0606 (New Bag - Provider: Arnulfo Kraft RN)0636 (Stopped - Provider: Arnulfo Kraft RN) fluconazole (Diflucan) tablet 200 mg 200 mg, oral, 2 times daily, First dose on Wed04/17/23 at 2100, For 14 days, Coverage: Slime, Non-albicans, Infection Site: Skin 927 (Given - Provider: Kurt Chao RN)2015 (Given - Provider: Zeynep Pham RN) 08 (Given - Provider: Jessica Cabrera RN)2107 (Given - Provider: Arnulfo Kraft RN) 08 (Given - Provider: Fausto Álvarez, LOYD)2099 (Due) insulin lispro (HumaLOG) injection 0-5 Units 0-5 Units, subcutaneous, 3 times daily with meals, First dose (after last modification) on Wed04/16/23 at 1700, Insulin Lispro Corrective Scale #1 Hypoglycemia protocol Call LIP unit(s) if Blood Glucose is between 0 - 70 mg/dL 0 unit(s) if Blood glucose is between 71-150 1 unit(s) if Blood glucose is between 151-200 2 unit(s) if Blood glucose is between 201-250 3 unit(s) if Blood glucose is between 251-300 4 unit(s) if Blood glucose is between 301-350 5 unit(s) if Blood glucose is between 351-400 Notify provider unit(s) if Blood Glucose is greater than 400 mg/dL 0800 (Not Given - Provider: Kurt Chao RN - Reason: NPO)1200 (Not Given - Provider: Kurt Chao RN - Reason: Order parameters not met)1700 (Not Given - Provider: Kurt Chao RN - Reason: Order parameters not met) 0800 (Not Given - Provider: Jessica Cabrera RN - Reason: Order parameters not met - Comment: BG 78)1200 (Not Given - Provider: Jessica Cabrera RN - Reason: Order parameters not met - Comment: BG 97)1700 (Not Given - Provider: Jessica Cabrera RN - Reason: Order parameters not met - Comment: BG 114) 0800 (Not Given - Provider: Fausto Álvarez RN - Reason: Order parameters not met)1423 (Not Given - Provider: Fausto Álvarez RN - Reason: Other - Comment: patient's glucose is 106)1700 (Due) pantoprazole (ProtoNix) EC tablet 40 mg 40 mg, oral, Daily before breakfast, First dose on Wed04/14/23 at 0730, Use pantoprazole tablet if patient can take meds orally. Do not crush, chew, or split. 0535 (Given - Provider: Karime Grimm RN) 0537 (Given - Provider: Zeynep Pham RN) 0606 (Given - Provider: Arnulfo Kraft RN) polyethylene glycol (Glycolax, Miralax) packet 17 g 17 g, oral, Daily, First dose on Wed04/14/23 at 1000 0900 (Not Given - Provider: Kurt Chao RN - Reason: NPO) 0900 (Not Given - Provider: Jessica Cabrera RN - Reason: Patient/family refused) 0900 (Given - Provider: Fausto Álvarez RN) predniSONE (Deltasone) tablet 5 mg 5 mg, oral, Daily, First dose on Wed04/14/23 at 0900 0928 (Given - Provider: Kurt Chao RN) 0828 (Given - Provider: Jessica Cabrera RN) 0856 (Given - Provider: Fausto Álvarez RN) tacrolimus (Prograf) capsule 0.5 mg 0.5 mg, oral, Every 12 hours scheduled (0630,1830), First dose on Wed04/13/23 at 2330 0540 (Given - Provider: Karime Grimm, LOYD)1848 (Given - Provider: Kurt Chao RN) 0537 (Given - Provider: Zeynep Pham RN)1817 (Given - Provider: Jessica Cabrera RN) 0606 (Given - Provider: Arnulfo Kraft RN)1830 (Due) PRN Medication Order 04/19/2023 04/20/2023 04/21/2023 dextrose 10 % in water (D10W) infusion 0.3 g/kg/hr 79.4 kg (238.2 mL/hr), intravenous, Once as needed, For blood glucose less than 70 mg/dL after 30 minutes of intervention. Discontinue once blood glucose reaches 100 mg/dL., Starting on Wed04/13/23 at 2354, For 1 dose, Discontinue once blood glucose reaches 100 mg/dL. dextrose 50 % injection 25 g 25 g, intravenous, Every 15 min PRN, For blood glucose less than or equal to 40 mg/dL, Starting on Wed04/13/23 at 2354, May repeat until blood glucose level reaches 100 mg/dL or greater. Push 2 - 3 mL/minute if patient has secure IV access. fentaNYL PF (Sublimaze) injection (COMPLETED) intravenous, Once PRN Procedure, Starting on Wed04/19/23 at 1104, For 1 dose, Intraprocedure 1104 (Given - Provider: Pedro Rodriguez RN) glucagon (Glucagen) injection 1 mg 1 mg, intramuscular, Every 15 min PRN, low blood sugar - see comments, For blood glucose less than or equal to 70 mg/dL and no IV access, Starting on Wed04/13/23 at 2354, Give until blood glucose is 100 mg/dL or greater. If patient DOES NOT HAVE secure IV access & patient is unconscious, NPO or is unable to eat or drink. hydrOXYzine HCL (Atarax) tablet 10 mg 10 mg, oral, Every 4 hours PRN, anxiety, Starting on Wed04/13/23 at 2347 0537 (Given - Provider: Karime Grimm RN)1249 (Given - Provider: Kurt Chao RN)2016 (Given - Provider: Zeynep Pham, LOYD) 0828 (Given - Provider: Jessica Cabrera, LOYD)1333 (Given - Provider: Jessica Cabrera RN)1817 (Given - Provider: Jessica Cabrera RN) midazolam (Versed) injection (COMPLETED) intravenous, Once PRN Procedure, Starting on Wed04/19/23 at 1104, For 1 dose, Intraprocedure 1104 (Given - Provider: Pedro Rodriguez RN) oxyCODONE (Roxicodone) immediate release tablet 10 mg 10 mg, oral, Every 4 hours PRN, pain severe (7-10), first line, Starting on Wed04/16/23 at 0857, If ordered PRN for pain, nurse is permitted to administer this medication for higher pain scores based on patient preference? Yes 0538 (Given - Provider: Karime Grimm RN)0940 (Given - Provider: Kurt Chao RN)1443 (Given - Provider: Kurt Chao RN)1848 (Given - Provider: Kurt Chao RN) 0536 (Given - Provider: Zeynep Pham, LOYD)1052 (Given - Provider: Jessica Cabrera RN)1501 (Given - Provider: Jessica Cabrera RN) 0856 (Given - Provider: Fausto Álvarez, LOYD)1433 (Given - Provider: Fausto Álvarez RN) oxyCODONE (Roxicodone) immediate release tablet 5 mg 5 mg, oral, Every 4 hours PRN, pain moderate (4-6), first line, Starting on Wed04/16/23 at 0857, If ordered PRN for pain, nurse is permitted to administer this medication for higher pain scores based on patient preference? Yes Scheduled Medication Order 05/23/2023 05/24/2023 05/25/2023 magnesium sulfate IV 2 g 2 g, intravenous, at 25 mL/hr, Administer over 2 Hours, Once, On Wed05/25/23 at 2100, For 1 dose 2100 (Not Given - Pr ovider: Patricia Long RN - Reason: Patient/family refused - Comment: aware) Scheduled Medication Order 06/19/2023 06/20/2023 06/21/2023 acetaminophen (Tylenol) tablet 650 mg 650 mg, oral, Every 4 hours, First dose on Wed06/18/23 at 0745, If ordered PRN for pain, nurse is permitted to administer this medication for higher pain scores based on patient preference? Yes 0415 (Not Given - Provider: Acacia Valerio RN - Reason: Patient/family refused)0911 (Given - Provider: Aleksandra Weber RN)1333 (Given - Provider: Aleksandra Weber RN)1810 (Given - Provider: Aleksandra Weber RN)2216 (Not Given - Provider: Sujey Taylor RN - Reason: Patient/family refused)2352 (Not Given - Provider: Sujey Taylor RN - Reason: Patient/family refused) 0405 (Given - Provider: Sujey Taylor RN)0858 (Given - Provider: Aleksandra Weber, LOYD)1411 (Given - Provider: Aleksandra Weber RN)1816 (Given - Provider: Aleksandra Weber RN)2000 (Not Given - Provider: Jacqueline Boston RN - Reason: Patient/family refused) 0032 (Given - Provider: Jacqueline Boston RN)0620 (Given - Provider: Jacqueline Boston RN)0956 (Given - Provider: Lizet Chapin RN)1400 (Due - Provider: Lizet Chapin RN)1600 (Due - Provider: Angelika Colón, PharmD)1999 (Due - Provider: Angelika oClón, PharmD) ampicillin-sulbactam (Unasyn) in sodium chloride 0.9 % 100 mL 3 g (COMPLETED) 3 g, intravenous, at 200 mL/hr, Administer over 30 Minutes, Every 6 hours, First dose on Wed06/16/23 at 1100, For 4 days, Mini-Bag Plus/ADD-[place] bag, Suspected Indication (Select all that apply): Other, Specify: bacteremia, Type of Therapy: Definitive, Based on Culture 0037 (New Bag - Provider: Acacia Valerio RN)0107 (Stopped - Provider: Acacia Valerio RN)0417 (New Bag - Provider: Acacia Valerio RN)0447 (Stopped - Provider: Acacia Valerio, RN)1334 (New Bag - Provider: Aleksandra Weber RN)1404 (Stopped - Provider: Aleksandra Weber RN)2044 (New Bag - Provider: Sujey Taylor RN)2114 (Stopped - Provider: Sujey Taylor RN) 0201 (New Bag - Provider: Sujey Taylor RN)0231 (Stopped - Provider: Sujey Taylor RN)0800 (New Bag - Provider: Aleksandra Weber RN - Comment: nurse flex)0830 (Stopped - Provider: Aleksandra Weber RN) apixaban (Eliquis) tablet 5 mg 5 mg, oral, Every 12 hours, First dose on 06/20/23 at 1130 1209 (Given - Provider: Aleksandra Weber RN) 0032 (Given - Provider: Jacqueline Boston, LOYD)1133 (Given - Provider: Lizet Chapin RN)2330 (Due) aspirin chewable tablet 81 mg 81 mg, oral, Daily, First dose on Rina 06/17/23 at 0900 0911 (Given - Provider: Aleksandra Weber RN) 0858 (Given - Provider: Aleksandra Weber RN) 0954 (Given - Provider: Lizet Chapin, LOYD) atorvastatin (Lipitor) tablet 40 mg 40 mg, oral, Nightly, First dose on 06/13/23 at 2100 2044 (Given - Provider: Sujey Taylor RN) 2101 (Given - Provider: Jacqueline Boston, LOYD) 2100 (Due) azaTHIOprine (Imuran) tablet 50 mg 50 mg, oral, Daily, First dose on Wed06/18/23 at 1315 0912 (Given - Provider: Aleksandra Weber RN) 0858 (Given - Provider: Aleksandra Weber RN) 0954 (Given - Provider: Lizet Chapin RN) dilTIAZem CD (Cardizem CD) 24 hr capsule 180 mg 180 mg, oral, Daily, First dose on Wed06/18/23 at 0900, Do not crush, chew, or split. 0912 (Given - Provider: Aleksandra Weber RN) 0858 (Given - Provider: Aleksandra Weber RN) 0956 (Given - Provider: Lizet Chapin RN) enoxaparin (Lovenox) syringe 40 mg (CANCELED) 40 mg, subcutaneous, Every 24 hours, First dose on Wed06/13/23 at 2100, Indications: venous thrombosis 2044 (Given - Provider: Sujey Taylor RN) insulin lispro (HumaLOG) injection 0-5 Units 0-5 Units, subcutaneous, 3 times daily with meals, First dose (after last modification) on Wed06/19/23 at 0800, Insulin Lispro Corrective Scale #1 Hypoglycemia protocol Call LIP unit(s) if Blood Glucose is between 0 - 70 mg/dL 0 unit(s) if Blood glucose is between 71-150 1 unit(s) if Blood glucose is between 151-200 2 unit(s) if Blood glucose is between 201-250 3 unit(s) if Blood glucose is between 251-300 4 unit(s) if Blood glucose is between 301-350 5 unit(s) if Blood glucose is between 351-400 Notify provider unit(s) if Blood Glucose is greater than 400 mg/dL 0800 (Not Given - Provider: Aleksandra Weber RN - Reason: Order parameters not met - Comment: BS 90)1200 (Not Given - Provider: Aleksandra Weber RN - Reason: Order parameters not met - Comment: BS 95)1700 (Not Given - Provider: Aleksandra Weber RN - Reason: Order parameters not met - Comment: BS 103) 0800 (Not Given - Provider: Aleksandra Weber RN - Reason: Order parameters not met - Comment: BS 79)1200 (Not Given - Provider: Aleksandra Weber RN - Reason: Order parameters not met - Comment: BS 87)1700 (Not Given - Provider: Aleksandra Weber RN - Reason: Order parameters not met - Comment: BS 108) 0800 (Not Given - Provider: Lizet Chapin RN - Reason: Order parameters not met)1200 (Due)1700 (Due) lidocaine 4 % patch 2 patch 2 patch, transdermal, Administer over 12 Hours, Daily, First dose on Wed06/16/23 at 0900, Apply to RUQ/R lateral chest. Patch will remain on for 12 hours, then removed for [address] patch directly over any surgical incisions or wounds. 0900 (Not Given - Provider: Aleksandra Weber RN - Reason: Patient/family refused) 0900 (Not Given - Provider: Aleksandra Weber RN - Reason: Patient/family refused) 0900 (Not Given - Provider: Lizet Chapin RN - Reason: Patient/family refused) magnesium oxide (Mag-Ox) tablet 400 mg (COMPLETED) 400 mg, oral, Once, On Wed06/20/23 at 1115, For 1 dose 1209 (Given - Provider: Aleksandra Weber, LOYD) methocarbamol (Robaxin) injection 1,000 mg 1,000 mg, intravenous, Administer over 5 Minutes, Every 8 hours, First dose (after last modification) on Wed06/18/23 at 1230 0415 (Given - Provider: Acacia Valerio RN)1217 (Given - Provider: Aleksandra Weber, LOYD)2045 (Given - Provider: Sujey Taylor, LOYD) 0406 (Given - Provider: Sujey Taylor, LOYD)1209 (Given - Provider: Aleksandra Weber, LOYD)2101 (Given - Provider: Jacqueline Boston, LOYD) 0619 (Not Given - Provider: Jacqueline Boston, LOYD - Reason: Patient/family refused)1230 (Due)2030 (Due) pantoprazole (ProtoNix) EC tablet 40 mg 40 mg, oral, Daily before breakfast, First dose on Wed06/18/23 at 0745, Do not crush, chew, or split. 0607 (Given - Provider: Acacia Valerio RN) 0623 (Given - Provider: Sujey Taylor, LOYD) 0620 (Given - Provider: Jacqueline Boston, RN) polyethylene glycol (Glycolax, Miralax) packet 17 g 17 g, oral, Daily, First dose on Wed06/13/23 at 1330, Bowel Regimen - for prevention of constipation. 0900 (Not Given - Provider: Aleksandra Weber RN - Reason: Patient/family refused) 0857 (Given - Provider: Aleksandra Weber RN) 0900 (Not Given - Provider: Lizet Chapin RN - Reason: Patient/family refused) predniSONE (Deltasone) tablet 5 mg (CANCELED) 5 mg, oral, Daily, First dose on Wed06/18/23 at 1315 0911 (Given - Provider: Aleksandra Weber RN) 0858 (Given - Provider: Aleksandra Weber RN) predniSONE (Deltasone) tablet 5 mg 5 mg, oral, Every morning, First dose on Wed06/20/23 at 1130 1130 (Given - Provider: Aleksandra Weber RN) 0954 (Given - Provider: Lizet Chapin RN) rOPINIRole (Requip) tablet 1 mg 1 mg, oral, Nightly, First dose on Wed06/13/23 at 2100 2045 (Given - Provider: Sujey Taylor RN) 2101 (Given - Provider: Jacqueline Boston RN) 2100 (Due) sulfamethoxazole-trimetho prim (Bactrim) 400-80 mg per tablet 1 tablet 1 tablet, oral, Every morning, First dose on 06/13/23 at 1330, Suspected Indication (Select all that apply): Medical Prophylaxis 0911 (Given - Provider: Aleksandra Weber RN) 0858 (Given - Provider: Aleksandra Weber RN) 0954 (Given - Provider: Lizet Chapin RN) tacrolimus (Prograf) capsule 0.5 mg 0.5 mg, oral, Every 12 hours scheduled (0630,1830), First dose (after last modification) on Wed06/18/23 at 1830 0607 (Given - Provider: Acacia Valerio RN)1809 (Given - Provider: Aleksandra eWber RN) 0623 (Given - Provider: Sujey Taylor RN)1817 (Given - Provider: Aleksandra Weber RN) 0619 (Given - Provider: Jacqueline Boston RN)1830 (Due) tamsulosin (Flomax) 24 hr capsule 0.4 mg 0.4 mg, oral, 2 times daily, First dose on Wed06/13/23 at 1330, Give 30 minutes after the same mealtime each day. Capsules should be swallowed whole; do not crush, chew, or open. 0912 (Given - Provider: Aleksandra Weber RN)2044 (Given - Provider: Sujey Taylor RN) 0858 (Given - Provider: Aleksandra Weber RN)210 (Given - Provider: Jacqueline Boston RN) 0954 (Given - Provider: Lizet Chapin, LOYD)2100 (Due) vancomycin in dextrose 5 % (Vancocin) IVPB 750 mg 750 mg, intravenous, at 200 mL/hr, Administer over 45 Minutes, Every 12 hours, First dose (after last modification) on Wed06/15/23 at 2100, premix bag, Dosing of this medication varies based on severity of illness. Does this patient have sepsis or concern for sepsis (probable or documented infection plus systemic manifestations of infection)? Yes, Suspected Indication (Select all that apply): Abdominal Infection, Type of Therapy: Empiric, Type of infection: Community-Acquired 0915 (New Bag - Provider: Aleksandra Weber RN)1000 (Stopped - Provider: Aleksandra Weber RN)2214 (New Bag - Provider: Sujey Taylor RN)2259 (Stopped - Provider: Sujey Taylor RN) 0857 (New Bag - Provider: Aleksandra Weber RN)0942 (Stopped - Provider: Aleksandra Weber RN)210 (New Bag - Provider: Jacqueline Boston RN)2146 (Stopped - Provider: Jacqueline Boston RN) 0900 (Not Given - Provider: Lizet Chapin RN - Reason: Patient/family refused)2100 (Due) PRN Medication Order 06/19/2023 06/20/2023 06/21/2023 dextrose 50 % injection 12.5 g 12.5 g, intravenous, Every 15 min PRN, For blood glucose less than or equal to 70 mg/dL, Starting on Wed06/14/23 at 0320, May repeat until blood glucose level reaches 100 mg/dL or greater. Push 2 - 3 mL/minute if patient has secure IV access. dextrose 50 % injection 25 g 25 g, intravenous, Every 15 min PRN, For blood glucose less than or equal to 40 mg/dL, Starting on Wed06/14/23 at 0320, May repeat until blood glucose level reaches 100 mg/dL or greater. Push 2 - 3 mL/minute if patient has secure IV access. glucagon (Glucagen) injection 1 mg 1 mg, intramuscular, Every 15 min PRN, low blood sugar - see comments, For blood glucose less than or equal to 40 mg/dL and no IV access, Starting on Wed06/14/23 at 0320, Give until blood glucose is 100 mg/dL or greater. If patient DOES NOT HAVE secure IV access & patient is unconscious, NPO or is unable to eat or drink. glucagon (Glucagen) injection 1 mg 1 mg, intramuscular, Every 15 min PRN, low blood sugar - see comments, For blood glucose less than or equal to 70 mg/dL and no IV access, Starting on Wed06/14/23 at 0320, Give until blood glucose is 100 mg/dL or greater. If patient DOES NOT HAVE secure IV access & patient is unconscious, NPO or is unable to eat or drink. ondansetron (Zofran) injection 4 mg 4 mg, intravenous, Every 8 hours PRN, nausea/vomiting, first line, Starting on Wed06/13/23 at 1324, 1st Line. Give IV if patient is unable to take orally. If inadequate response within 60 minutes, proceed to next-line agent for same PRN reason or contact provider if no further options ordered. When administering via IV Push, administer over 3-5 minutes. 0415 (Given - Provider: Acacia Valerio RN) 0411 (Given - Provider: Sujey Taylor, LOYD) 0038 (Given - Provider: Jacqueline Boston, RN) oxyCODONE (Roxicodone) immediate release tablet 10 mg 10 mg, oral, Every 6 hours PRN, pain severe (7-10), first line, Starting on Wed06/18/23 at 0720 0037 (Given - Provider: Acacia Valerio RN) 0404 (Given - Provider: Sujey Taylor, RN) 0035 (Given - Provider: Jacqueline Boston, RN)1133 (Given - Provider: Lizet Dari, RN) oxyCODONE (Roxicodone) immediate release tablet 5 mg 5 mg, oral, Every 6 hours PRN, pain moderate (4-6), second line, Starting on Wed06/18/23 at 0720 1811 (Given - Provider: Aleksandra Weber RN) vancomycin (Vancocin) pharmacy to dose - pharmacy monitoring miscellaneous, Daily PRN, other, Vancomycin Placeholder, Starting on 06/14/23 at 0957, This is a placeholder. Pharmacy will enter orders when vancomycin needs to be administered. FOR RECORDS PERTAINING TO PATIENTS WHO ARE OR HAVE BEEN ENROLLED IN A CHEMICAL DEPENDENCY/SUBSTANCEABUSE PROGRAM, SOME INFORMATION MAY BE OMITTED. This clinical summary was aggregated from multiple sources. Caution should be exercised in using it in the provision of clinical care. This summary normalizes information from multiple sources, and as a consequence, information in this document may materially change the coding, format and clinical context of patient data. In addition, data may be omitted in some cases. CLINICAL DECISIONS SHOULD BE BASED ON THE PRIMARY CLINICAL RECORDS. [employer] provides no warranty or guarantee of the accuracy or completeness of information in this document.
[2024-01-06 08:33] LABS: Bilirubin Urine NEGATIVE (NEGATIVE); Blood Urine TRACE-I (NEGATIVE); Clarity Urine CLEAR (CLEAR); Color Urine LT. YELLOW (YELLOW); Glucose Urine UA NEGATIVE (NEGATIVE); Ketones Urine NEGATIVE (NEGATIVE); Leukocyte Esterase Urine MODERATE (NEGATIVE); Nitrite Urine NEGATIVE (NEGATIVE); Protein Urine NEGATIVE (NEG/TRACE); Urobilinogen Urine 0.2 EU/dL (0.2-1.0)
[2024-01-06 08:39] LABS: Urine Microscopic Indicated YES
[2024-01-06 08:50] LABS: Bacteria Urine TRACE #/HPF (NONE SEEN); Cast Seen? NONE SEEN #/LPF (NONE SEEN); Crystals Seen? None Seen #/HPF (None Seen); Mucus Urine NONE SEEN (NONE SEEN); RBC Urine 0-2 #/HPF (0-2); Squamous Epithelial Cell Urine RARE #/LPF (NONE/RARE)
[2024-01-06 09:52] LABS: Glucose 112 mg/dL (74-106)
[2024-01-06 10:01] LABS: Prostate Specific Antigen Scrn 1.65 ng/mL (<=4.00)
== END 2024-01-06 07:23 | disposition home or self-care (01) ==
LOC: LAB 07:22
PROVIDERS: PCP Internal Medicine; Visit Provider Internal Medicine
DX: N18.6 End stage renal disease (principal); Z94.0 Kidney transplant status; Z12.5 Encounter for screening for malignant neoplasm of prostate
CPT/HCPCS: 36415; 81001; 82947; G0103

== ENCOUNTER 2024-01-06 07:24 | Outpatient (OUT) | payer MEDICARE, SELFPAY ==
[2024-01-06 08:32] LABS: Hematocrit 35.4 % (42.0-54.0); Mean Corpuscular HGB Conc 31.1 g/dL (29.9-35.2); Mean Corpuscular Hemoglobin 26.4 pg (25.9-34.0); Mean Corpuscular Volume 85.1 fL (80.0-94.0); Mean Platelet Volume 8.8 fL (9.5-13.5); Platelet Count 187 10^3/uL (150-450); Red Blood Count 4.16 10^6/uL (4.70-6.10); Red Cell Distribution Width 16.9 % (11.0-15.0); White Blood Count 6.3 10^3/uL (4.0-11.0)
[2024-01-06 08:54] LABS: Creatinine Urine Random 18.69 mg/dL (20.00-300.00); Microalbum Creatinine Ratio Ur 299.6 mg/g (0.0-29.9); Microalbumin Urine Random 5.6 mg/dL (<=30.0); Protein Creatinine Ratio Urine 1.01; Total Protein Urine Random 18.9 mg/dL (<=11.9)
[2024-01-06 08:59] LABS: Magnesium 1.8 mg/dL (1.8-2.4); Uric Acid 4.6 mg/dL (3.5-7.2)
[2024-01-06 09:04] LABS: Albumin Level 2.6 g/dL (3.4-5.0); Anion Gap 12.8; BUN Creatinine Ratio 18.1; Calcium 10.2 mg/dL (8.5-10.1); Carbon Dioxide 26.3 mmol/L (21.0-32.0); Chloride 109 mmol/L (98-107); Estimated GFR (African America >60 (>=60 mL/min/1.73m^2); Estimated GFR (Non-African Ame >60 (>=60 mL/min/1.73m^2); Glucose 112 mg/dL (74-106); Phosphorus 2.8 mg/dL (2.6-4.7); Potassium 4.1 mmol/L (3.5-5.1); Sodium 144 mmol/L (136-145)
[2024-01-07 04:08] LABS: Vitamin B12 288 pg/mL (232-1245)
[2024-01-07 11:14] LABS: PTH, Intact 113 pg/mL (15-65)
== END 2024-01-06 07:25 | disposition home or self-care (01) ==
LOC: LAB 07:24
PROVIDERS: PCP Internal Medicine; Visit Provider Internal Medicine Nephrology
DX: I12.0 Hypertensive chronic kidney disease with stage 5 chronic kidney disease or end stage renal disease (principal); N18.6 End stage renal disease; Z94.0 Kidney transplant status; Z12.5 Encounter for screening for malignant neoplasm of prostate; D64.9 Anemia, unspecified; E83.42 Hypomagnesemia; E83.9 Disorder of mineral metabolism, unspecified; T82.898A Other specified complication of vascular prosthetic devices, implants and grafts, initial encounter; N25.81 Secondary hyperparathyroidism of renal origin; Z68.35 Body mass index [BMI] 35.0-35.9, adult
CPT/HCPCS: 36415; 80069; 80197; 81001; 82043; 82306; 82570; 82607; 82728; 82746; 82947; 83540; 83550; 83735; 83970; 84156; 84550; 85027; G0103

== ENCOUNTER 2024-07-20 08:14 | Outpatient (OUT) | payer MEDICARE, SELFPAY ==
[2024-07-20 08:41] LABS: Hematocrit 34.9 % (42.0-54.0); Hemoglobin 11.3 g/dL (14.0-18.0); Mean Corpuscular HGB Conc 32.4 g/dL (29.9-35.2); Mean Corpuscular Hemoglobin 29.8 pg (25.9-34.0); Mean Corpuscular Volume 92.1 fL (80.0-94.0); Mean Platelet Volume 8.4 fL (9.5-13.5); Platelet Count 192 10^3/uL (150-450); Red Blood Count 3.79 10^6/uL (4.70-6.10); Red Cell Distribution Width 14.8 % (11.0-15.0); White Blood Count 6.4 10^3/uL (4.0-11.0)
[2024-07-20 08:51] LABS: Bilirubin Urine NEGATIVE (NEGATIVE); Blood Urine NEGATIVE (NEGATIVE); Clarity Urine CLEAR (CLEAR); Color Urine LT. YELLOW (YELLOW); Glucose Urine UA NEGATIVE (NEGATIVE); Ketones Urine NEGATIVE (NEGATIVE); Leukocyte Esterase Urine SMALL (NEGATIVE); Nitrite Urine NEGATIVE (NEGATIVE); Protein Urine NEGATIVE (NEG/TRACE); Specific Gravity Urine <=1.005 (1.005-1.025); Urobilinogen Urine 0.2 EU/dL (0.2-1.0); pH Urine 6.5 (5.0-9.0)
[2024-07-20 09:37] LABS: Albumin Level 2.6 g/dL (3.4-5.0); Anion Gap 9.2; BUN Creatinine Ratio 23.4; Calcium 10.3 mg/dL (8.5-10.1); Carbon Dioxide 25.6 mmol/L (21.0-32.0); Chloride 104 mmol/L (98-107); Estimated GFR (African America >60 (>=60 mL/min/1.73m^2); Estimated GFR (Non-African Ame >60 (>=60 mL/min/1.73m^2); Glucose 103 mg/dL (74-106); Magnesium 1.4 mg/dL (1.8-2.4); Phosphorus 2.3 mg/dL (2.6-4.7); Potassium 4.8 mmol/L (3.5-5.1); Sodium 134 mmol/L (136-145); Uric Acid 3.7 mg/dL (3.5-7.2)
[2024-07-20 09:43] LABS: Creatinine Urine Random <13.00 mg/dL (20.00-300.00); Microalbumin Urine Random <1.3 mg/dL (<=30.0)
[2024-07-21 06:09] LABS: Vitamin B12 324 pg/mL (232-1245)
[2024-07-21 13:10] LABS: PTH, Intact 117 pg/mL (15-65)
[2024-07-24 06:07] LABS: Tacrolimus (FK506), Blood 8.5 ng/mL (5.0-20.0)
== END 2024-07-20 08:15 | disposition home or self-care (01) ==
LOC: LAB 08:14
PROVIDERS: PCP Internal Medicine; Visit Provider Internal Medicine Nephrology
DX: D64.9 Anemia, unspecified (principal); E83.42 Hypomagnesemia; E83.39 Other disorders of phosphorus metabolism; Z68.35 Body mass index [BMI] 35.0-35.9, adult; T82.898A Other specified complication of vascular prosthetic devices, implants and grafts, initial encounter; Z94.0 Kidney transplant status
CPT/HCPCS: 36415; 80069; 80197; 81003; 82043; 82306; 82570; 82607; 82746; 83735; 83970; 84156; 84550; 85027

== ENCOUNTER 2024-10-18 00:16 | Emergency (ER) | payer MEDICARE, SELFPAY ==
[2024-10-18] VITALS (61 sets, daily range): BP systolic 81–116; BP diastolic 56–74; PULSE 126–162; RESP 12; TEMP 36.7; O2SAT 83–99; BMI 36.9
--- NOTE | 2024-10-18 00:30 | ECG_ITS ---
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 Measurements Intervals [place] Rate: 161 P: -46 MO: 128 QRS: -76 QRSD: 106 T: 123 QT: 270 QTc: 359 Interpretive Statements 1220 Rapid atrial rhythm 1570 with occasional ventricular premature complexes 2630 Left anterior fascicular block 3334 Anterolateral myocardial infarction, age undetermined [address] depression, possible subendocardial injury 9150 abnormal ECG Compared to ECG 06/24/2022 14:20:45 Ventricular premature complex(es) now present Left anterior fascicular block now present Myocardial infarct finding now present ST (T wave) deviation now present Sinus rhythm no longer present Electronically Signed On 10-18-2024 6:59:38 EDT by GARCIA HUBBARD M.D.
--- NOTE | 2024-10-18 01:02 | ED.SOB1 ---
HPI - SOB/Dyspnea General Chief Complaint: Shortness of Breath/Dyspnea Stated Complaint: SHORTNESS OF BREATH Time Seen by Provider: 10/18/24 00:44 Source: patient Mode of arrival: ambulance Limitations: no limitations History of Present Illness HPI Narrative: poor historian. Lives at home with his . states since cholecystectomy one year ago he has not been ambulatory. He is on eliquis but no one knows why. He was also on Jardiance . States it was discontinued but is not sure why he was on it. Past history of SBO taken care at [facility]. Colostomy placed after SBO. States tonight developed epigastric pain and became short of breath with associated diaphoresis and nausea. States has experienced similar episodes of epigastric pain on and off over the past 2 weeks. contributes the pain to his hiatal hernia. States he would drink milk and it would resolve after about 5 minutes. epigastric pain and dyspnea again tonight that did not improve after drinking milk and only got worse. Cpap placed by [facility] and patient transferred to the ED. No longer has pain but still feels a little nausea and remains short of breath past dialysis patient. Had fistula RUE. s/p renal transplant Related Data Home Medications ?Medication ?Instructions ?Recorded ?Confirmed apixaban 5 mg tablet (Eliquis) 5 mg PO BID 04/23/23 10/18/24 atorvastatin 40 mg tablet 40 mg PO QPM 04/23/23 10/18/24 azathioprine 50 mg tablet 50 mg PO DAILY 04/23/23 10/18/24 diltiazem HCl 180 mg 180 mg PO DAILY 04/23/23 10/18/24 capsule,extended release 24 hr, controlled (DILT-XR) ferrous sulfate 325 mg (65 mg mg 10/18/24 iron) tablet (FeroSul) folic acid 1 mg tablet 10/18/24 magnesium oxide 400 mg (241.3 mg mg 10/18/24 magnesium) tablet pantoprazole 20 mg tablet,delayed mg PO 10/18/24 release prednisone 5 mg tablet mg 10/18/24 ropinirole 1 mg tablet mg 10/18/24 tacrolimus 1 mg capsule, mg 10/18/24 immediate-release (Prograf) tamsulosin 0.4 mg capsule (Flomax) 0.4 mg PO Q24H 10/18/24 10/18/24 Allergies Allergy/AdvReac Type Severity Reaction Status Date / Time Penicillins Allergy Unknown Unknown Verified 10/18/24 00:27 Review of Systems ROS Status of ROS 10 or more systems reviewed and unremarkable except as noted in history and below [facility] Medical History (Updated 10/18/24 @ 06:27 by Karl Wasserman MD) Neck pain with history of cervical spinal surgery ?M54.2 - Cervicalgia (ICD-10) ?Z98.890 - Other specified postprocedural states (ICD-10) CAD (coronary artery disease) ?I25.10 - Atherosclerotic heart disease of [place] coronary artery without angina pectoris (ICD-10) Diverticula of colon ?K57.30 - Diverticulosis of large intestine without perforation or abscess without bleeding (ICD-10) Cholecystitis, acute ?K81.0 - Acute cholecystitis (ICD-10) HTN (hypertension) ?I10 - Essential (primary) hypertension (ICD-10) Surgical History (Updated 10/18/24 @ 06:32 by July Ramos RN) Kidney replaced by transplant ?Z94.0 - Kidney transplant status (ICD-10) Kidney transplant recipient ?Z94.0 - Kidney transplant status (ICD-10) Social History Smoking status: Never smoker Little interest or pleasure in doing things: not at all Feeling down, depressed, or hopeless: not at all Exam Constitutional Vital Signs, click to edit/add: Last Vital Signs Temp 98.1 F 10/18/24 04:04 Pulse 135 H 10/18/24 06:20 Resp 16 10/18/24 06:20 BP 112/74 10/18/24 06:00 Pulse Ox 99 10/18/24 06:20 O2 Del Method BIPAP 10/18/24 00:27 O2 Flow Rate 50 10/18/24 00:27 FiO2 50 10/18/24 00:26 Common normals: oriented x3, alert and well nourished General appearance: in distress HENMT Common normals: normocephalic and head/scalp atraumatic Eye Common normals: EOMs intact bilaterally Respiratory Common normals: no retractions (tachpnea) Cardio Rate: tachycardic GI Common normals: Normal to inspection, nondistended, normoactive bowel sounds present (colostomy bag in place and functioning) and soft to palpation Extremity Other: deformity Course Vital Signs Vital signs: Vital Signs Pulse Rate 162 H 10/18/24 00:26 Pulse Oximetry 93 L 10/18/24 00:26 Fraction of Inspired Oxygen 50 10/18/24 00:26 Temperature 98.1 F 10/18/24 04:04 Pulse Rate 135 H 10/18/24 06:20 Respiratory Rate 16 10/18/24 06:20 Blood Pressure 112/74 10/18/24 06:00 Pulse Oximetry 99 10/18/24 06:20 Oxygen Delivery Method BIPAP 10/18/24 00:27 Oxygen Delivery Flow Rate 50 10/18/24 00:27 Fraction of Inspired Oxygen 50 10/18/24 00:26 MDM - SOB/Dyspnea MDM Narrative Medical decision making narrative: past renal transplant patient. Poor historian. On Eliquis but doesn't know why. Presents with recurrent episodes of epigastric pain and dyspnea for 2 weeks. He attributed his symptoms to his hiatal hernia. States he would drink milk and symptoms would resolve after 5 minutes. Similar episode of acute epigastric pain and dyspnea tonight that did not resolve with milk and only got worse. Transferred to ER via [facility] with CPAP. EKG on arrival with old anterior wall scar, regular rhythm tachycardia ? SVT and ST depression II, III,Avf and V5V6. Denied pain on arrival but still felt short of breath and some nausea. WBC 20.5, BNP 3332.0 and first troponin 145.7. lactic acid elevated. CTA chest with multifocal pneumonia involving the right lung. Repeat troponin 41489.1. patient re examined and is feeling better. Repeat EKG with regular tachycardia ? SVT with rate 137. ST depression resolved in the inferior leads and mild ST depression V5 V6. Anterior wall scar unchanged. Blood cultures ordered. Levaquin and heparin ordered and Associate Sales Manager paged discussed with the audiovisual production specialist Associate Sales Manager who would like the patient admitted to the hospitalist service. Possible heart cath today Discussed with hospitalist at [facility] Dr Olivas and patient accepted for transfer Lab Data Labs: Lab Results 10/18/24 10/18/24 10/18/24 Range/Units 00:35 02:45 03:02 WBC 20.5 H (4.0-11.0) 10^3/uL RBC 4.54 L (4.70-6.10) 10^6/uL Hgb 14.0 (14.0-18.0) g/dL Hct 43.2 (42.0-54.0) % MCV 95.2 H (80.0-94.0) fL MCH 30.8 (25.9-34.0) pg MCHC 32.4 (29.9-35.2) g/dL RDW 14.1 (11.0-15.0) % Plt Count 228 (150-450) 10^3/uL MPV 10.0 (9.5-13.5) fL Seg Neuts % (Manual) 54.0 (43.0-75.0) Lymphocytes % (Manual) 27.0 (20.5-60.0) % Atypical Lymphs % (Man) 6.0 % Monocytes % (Manual) 9.0 (1.7-12.0) % Eosinophils % (Manual) 3.0 (0.9-7.0) % Basophils % (Manual) 0.0 L (0.2-2.0) % Metamyelocytes % 1.0 Myelocytes % Not Reportable Neutrophils # (Manual) 11.07 H (1.4-6.5) 10^3/uL Lymphocytes # (Manual) 5.53 H (1.20-3.80) 10^3/uL Abs Atypical Lymphs Man 1.23 Monocytes # (Manual) 1.84 H (0.30-0.80) 10^3/uL Eosinophils # (Manual) 0.61 (0.00-0.70) 10^3/uL Basophils # (Manual) 0.00 (0.00-0.10) 10^3/uL Metamyelocytes # 0.20 Myelocytes # 0.20 PT 11.3 (9.0-11.6) sec INR 1.07 APTT 26.0 (22.3-36.2) sec Sodium 139 (136-145) mmol/L Potassium 4.9 (3.5-5.1) mmol/L Chloride 106 (98-107) mmol/L Carbon Dioxide 21.9 (21.0-32.0) mmol/L Anion Gap 16.0 BUN 30.0 H (7.0-18.0) mg/dL Creatinine 1.07 (0.70-1.30) mg/dL Est GFR ( Amer) >60 (>=60 mL/min/1.73m^2) Est GFR (Non-Af Amer) >60 (>=60 mL/min/1.73m^2) BUN/Creatinine Ratio 28.0 Glucose 258 H (74-106) mg/dL Lactate 5.5 H* 3.9 H* (0.4-2.0) mmol/L Calcium 10.5 H (8.5-10.1) mg/dL Total Bilirubin 0.4 (0.2-1.0) mg/dL AST 31 (15-37) U/L ALT 27 (16-63) U/L Alkaline Phosphatase 120 H (46-116) U/L Troponin I High Sens 145.7 H* 11103.1 H* (4.0-76.1) pg/mL NT-Pro-B Natriuret Pep 3332.0 H* (<=900.0) pg/mL Total Protein 7.2 (6.4-8.2) g/dL Albumin 2.8 L (3.4-5.0) g/dL Globulin 4.4 g/dL Albumin/Globulin Ratio 0.6 SARS-CoV-2 Ag (CV2AG) Negative (NEGATIVE) Critical Care Time Critical Care Time Total Critical Care Time: 60 Discharge Plan Discharge Chief Complaint: Shortness of Breath/Dyspnea Clinical Impression: Pneumonia involving right lung, Acute non-ST elevation myocardial infarction (NSTEMI) Patient Disposition: Xfer Acute Care Hospital Discharge Location: [facility]
[2024-10-18 01:20] LABS: Hematocrit 43.2 % (42.0-54.0); Hemoglobin 14.0 g/dL (14.0-18.0); Mean Corpuscular HGB Conc 32.4 g/dL (29.9-35.2); Mean Corpuscular Hemoglobin 30.8 pg (25.9-34.0); Mean Corpuscular Volume 95.2 fL (80.0-94.0); Platelet Count 228 10^3/uL (150-450); Red Blood Count 4.54 10^6/uL (4.70-6.10); White Blood Count 20.5 10^3/uL (4.0-11.0)
[2024-10-18 01:30] LABS: Alanine Aminotransferase 27 U/L (16-63); Albumin Globulin Ratio 0.6; Albumin Level 2.8 g/dL (3.4-5.0); Alkaline Phosphatase 120 U/L (46-116); Anion Gap 16.0; Aspartate Amino Transferase 31 U/L (15-37); Blood Urea Nitrogen 30.0 mg/dL (7.0-18.0); Calcium 10.5 mg/dL (8.5-10.1); Carbon Dioxide 21.9 mmol/L (21.0-32.0); Chloride 106 mmol/L (98-107); Estimated GFR (African America >60 (>=60 mL/min/1.73m^2); Estimated GFR (Non-African Ame >60 (>=60 mL/min/1.73m^2); Globulin 4.4 g/dL; Glucose 258 mg/dL (74-106); Potassium 4.9 mmol/L (3.5-5.1); Sodium 139 mmol/L (136-145); Total Protein 7.2 g/dL (6.4-8.2)
[2024-10-18 01:43] LABS: Lactate/Lactic Acid 5.5 mmol/L (0.4-2.0)
--- NOTE | 2024-10-18 01:43 | PC.NURSE ---
lab called with 2 critical : Trop =145.7 and Lac = 5.5 Dr Wasserman and Manasa informed of these
[2024-10-18 01:44] LABS: Atypical Lymphocytes % Manual 6.0 %; Atypical Lymphocytes Abs Man 1.23; Basophils Abs Manual 0.00 10^3/uL (0.00-0.10); Basophils Percent Manual 0.0 % (0.2-2.0); Eosinophils Absolute Manual 0.61 10^3/uL (0.00-0.70); Eosinophils Percent Manual 3.0 % (0.9-7.0); Lymphocytes Absolute Manual 5.53 10^3/uL (1.20-3.80); Lymphocytes Percent Manual 27.0 % (20.5-60.0); Monocytes Absolute Manual 1.84 10^3/uL (0.30-0.80); Monocytes Percent Manual 9.0 % (1.7-12.0); Segmented Neut Absolute Manual 11.07 10^3/uL (1.4-6.5); Segmented Neutrophils % Manual 54.0 (43.0-75.0)
[2024-10-18 01:45] LABS: Metamyelocytes Absolute Manual 0.20; Myelocytes Absolute Manual 0.20
[2024-10-18] MEDS: FENTANYL CITRATE/PF 100 MCG/2 ML VIAL 50 MCG IV (02:07)
[2024-10-18 02:55] LABS: NT Pro B Type Natriuretic Pept 3332.0 pg/mL (<=900.0)
[2024-10-18 03:25] LABS: SARS-CoV-2 Ag NEGATIVE (NEGATIVE)
[2024-10-18] MEDS: FAMOTIDINE/PF 20 MG/2 ML VIAL IV (03:51)
[2024-10-18] MEDS: 0.9 % SODIUM CHLORIDE 1,000 ML 999 ML IV ×2 (03:51→05:20)
[2024-10-18 03:57] LABS: Lactate/Lactic Acid 3.9 mmol/L (0.4-2.0)
--- NOTE | 2024-10-18 04:20 | ECG_ITS ---
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 Measurements Intervals [place] Rate: 137 P: -03578 [place]: -63980 QRS: 22 QRSD: 88 T: 63 QT: 348 QTc: 428 Interpretive Statements Likely atrial flutter with rapid ventricular response 4068 Nonspecific [place] abnormality 9140 abnormal rhythm ECG Compared to ECG 10/18/2024 00:30:45 Ventricular premature complex(es) no longer present Left anterior fascicular block no longer present Myocardial infarct finding no longer present ST (T wave) deviation no longer present Electronically Signed On 10-18-2024 7:01:22 EDT by GARCIA HUBBARD M.D.
--- NOTE | 2024-10-18 04:59 | PC.NURSE ---
Lab in to draw BCs.
--- NOTE | 2024-10-18 05:03 | PC.NURSE ---
Awaiting a call back from on-call cardiology at [facility] [place]. Carter.
[2024-10-18 05:07] LABS: INR 1.07; Prothrombin Time 11.3 sec (9.0-11.6)
[2024-10-18 05:08] LABS: Partial Thromboplastin Time 26.0 sec (22.3-36.2)
[2024-10-18] MEDS: HEPARIN SODIUM,PORCINE/D5W 25,000 UNIT/500 ML IV.SOLN 20.018 UNIT IV (05:20)
[2024-10-18] MEDS: HEPARIN SODIUM (PORCINE) 5,000 UNIT/ML VIAL 4000 UNIT IV (05:21)
[2024-10-18] MEDS: LEVOFLOXACIN IN DEXTROSE 5 % 750 MG/150 ML PREMIX 100 MG IV (05:22)
[2024-10-18] MEDS: MORPHINE SULFATE 2 MG/ML SYRINGE IV ×2 (06:02→09:18)
[2024-10-19 00:21] LABS: A. calcoaceticus-baumannii Cpx NOT DETECTED (NOT DETECTE); Bacteroides fragilis NOT DETECTED (NOT DETECTE); Candida auris NOT DETECTED (NOT DETECTE); Candida glabrata NOT DETECTED (NOT DETECTE); Enterobacterales NOT DETECTED (NOT DETECTE); Enterococcus faecalis NOT DETECTED (NOT DETECTE); Enterococcus faecium NOT DETECTED (NOT DETECTE); Klebsiella aerogenes NOT DETECTED (NOT DETECTE); Klebsiella pneumoniae group NOT DETECTED (NOT DETECTE); Proteus spp. NOT DETECTED (NOT DETECTE); Salmonella spp. NOT DETECTED (NOT DETECTE); Serratia marcescens NOT DETECTED (NOT DETECTE); Staphylococcus lugdunensis NOT DETECTED (NOT DETECTE); Stenotrophomonas maltophilia NOT DETECTED (NOT DETECTE); Streptococcus pyogenes NOT DETECTED (NOT DETECTE); Streptococcus spp. NOT DETECTED (NOT DETECTE)
[2024-10-19 02:03] LABS: mecA/C NOT DETECTED (NOT DETECTE)
[2024-10-19 02:04] LABS: Source BLOOD
[2024-10-19 02:08] LABS: Staphylococcus epidermidis DETECTED (NOT DETECTE); Staphylococcus spp. DETECTED (NOT DETECTE)
== END 2024-10-18 10:02 | disposition short-term general hospital (02) ==
PROVIDERS: Emergency Provider Internal Medicine; PCP Internal Medicine
DX: I21.4 Non-ST elevation (NSTEMI) myocardial infarction (principal); J18.9 Pneumonia, unspecified organism; Z90.49 Acquired absence of other specified parts of digestive tract; Z79.01 Long term (current) use of anticoagulants; Z93.3 Colostomy status; K44.9 Diaphragmatic hernia without obstruction or gangrene; Z94.0 Kidney transplant status
CPT/HCPCS: 36415; 71045; 71275; 80053; 83605; 83880; 84484; 85007; 85027; 85610; 85730; 87040; 87150; 87186; 87811; 93005; 94660; 96365; 96366; 96368; 96375; 96376; 99285; J1644; J2270; J2405; J3010; J3490; Q9967